=== PATIENT | female | born 1945 | race Caucasian/White ===

== ENCOUNTER → 2016-10-26 | Outpatient (CLI) | payer OTHER ==
[~2016-10-26] VITALS: Ht 162.6 cm; Wt 65.1 kg
[~2016-10-26] MED LIST: CETI10 PO; ESCI20TA PO; HYDROCORTISONE SOD SUCCINATE 100 MG VIAL ONE; INSULIN HUMAN REGULAR 1,000 UNITS/10 ML VIAL SQ PRN; KETAMINE HCL 500 MG/5 ML VIAL ONE; LACTATED RINGER'S 1000 ML IV SCH; LEVO100T5 PO; METOPROLOL TARTRATE 25 MG TAB PO PRN; MIDAZOLAM HCL 2 MG/2 ML VIAL ONE; NUTR-189 PO; OMEP20TA PO; PROPOFOL 200 MG/20 ML AMP IV ONE; SODIUM CHLORID 0.9% 500 ML IV SCH
[2016-10-26 09:28] VITALS: BP 121/58; PULSE 52; RESP 16; TEMP 97.8; O2SAT 98
--- NOTE | 2016-10-26 12:41 | GIPROC ---
"[facility] [address] [facility]. [facility], [address] EGD PROCEDURE REPORT EXAM DATE: 10/26/2016 PATIENT NAME: Ana M Henson MR #: [id number] BIRTHDATE: 1945 ATTENDING: Ishmael Aly MD ORDER #: [id number] HOT BALLER: Nevin De La Garza Dan STATUS: outpatient INDICATIONS: The patient is a 71 yr old female here for an EGD due to dysphagia PROCEDURE PERFORMED: EGD w/ dilation of esophagus via guidewire MEDICATIONS: None and Per Anesthesia. TOPICAL ANESTHETIC: none CONSENT: The patient understands the risks and benefits of the procedure and understands that these risks include, but are not limited to: sedation, allergic reaction, infection, perforation and/or bleeding. Alternative means of evaluation and treatment include, among others: physical exam, x-rays, and/or surgical intervention. The patient elects to proceed with this endoscopic procedure. medical equipment was checked for proper function. Hand hygiene and appropriate measures for infection prevention was taken. After the risks, benefits and alternatives of the procedure were thoroughly explained, Informed consent was verified, confirmed and timeout was successfully executed by the treatment team. The patient was anesthetized with topical anesthesia and the Pentax [id number] endoscope was introduced through the mouth and advanced to the second portion of the duodenum. Retroflexed views revealed a hiatal hernia The gastroscope was then slowly withdrawn and removed. 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 The stricture was easily traversable. The stricture was dilated using a 9mm (27Fr) savary dilator over guidewire. Following this dilation, there was no change in the appearance of the stricture. The stricture was dilated using a 10mm (30Fr) savary dilator over guidewire. Following this dilation, there was no change in the appearance of the stricture. The stricture was dilated using a 11mm (33Fr) savary dilator over guidewire. Following this dilation, there was no change in the appearance of the stricture. The stricture was dilated using a 12mm (36Fr) savary dilator over guidewire. Following this dilation, there was a small mucosal rent. STOMACH: A small hiatal hernia was noted. The stomach otherwise appeared normal. DUODENUM: The duodenal mucosa appeared normal. ADVERSE EVENTS: There were no complications. IMPRESSIONS: 1. There was a short stricture at the cricopharyngeus; The stricture was dilated using a 9mm (27Fr) savary dilator over guidewire.; Following this dilation, there was no change in the appearance of the stricture; The stricture was dilated using a 10mm (30Fr) savary dilator over guidewire.; Following this dilation, there was no change in the appearance of the stricture; The stricture was dilated using a 11mm (33Fr) savary dilator over guidewire.; Following this dilation, there was no change in the appearance of the stricture; The stricture was dilated using a 12mm (36Fr) savary dilator over guidewire.; Following this dilation, there was a small mucosal rent 2. Small hiatal hernia 3. The stomach otherwise appeared normal 4. Normal duodenal mucosa 5. Retroflexed views revealed a hiatal hernia RECOMMENDATIONS: 1. Full liquids today, advance as tolerated. 2. Dilatations PRN PATIENT CONDITION: stable DISPOSITION: Home REPEAT EXAM: Return as needed for Dilatation Ishmael Aly MD eSigned: Ishmael Aly MD 10/26/2016 12:40 PM cc: Nael Pineda M.D. CPT CODES: 89203 Upper gastrointestinal endoscopy including esophagus, stomach, and either the duodenum and/or jejunum as appropriate; with insertion of guide wire followed by dilation of esophagus over guide wire ICD CODES: K22.2 Esophageal obstruction K44.9 Diaphragmatic hernia without obstruction or gangrene R13.10 Dysphagia,unspecified The ICD and CPT codes recommended by this software are interpretations from the data that the clinical staff has captured with the software. The verification of the translation of this report to the ICD and CPT codes and modifiers is the sole responsibility of the health care institution and practicing physician where this report was generated. [employer] will not be held responsible for the validity of the ICD and CPT codes included on this report. A[employer] assumes no liability for data contained or not contained herein. CPT is a registered trademark of the [employer]. PATIENT NAME: Ana M Henson MR#: [id number]"
[2016-10-26 12:50] VITALS: BP 128/50; PULSE 54; RESP 16; O2SAT 97
== END ==
LOC: HEND 08:56
PROVIDERS: ATTEND Internal Medicine Gastroenterology
DX: K22.2 Esophageal obstruction (principal); K44.9 Diaphragmatic hernia without obstruction or gangrene; R13.10 Dysphagia, unspecified
CPT/HCPCS: 00740; 43248; C1769; J1720; J2250; J7120

== ENCOUNTER → 2017-07-01 | Outpatient (CLI) | payer OTHER ==
[~2017-07-01] VITALS: Ht 162.6 cm; Wt 69.0 kg
[~2017-07-01] MED LIST changes: +CHLORHEXIDINE GLUCONATE 2 % 1 PACK (2 CLOTHS) TOPICAL PRN; -HYDROCORTISONE SOD SUCCINATE 100 MG VIAL ONE; -KETAMINE HCL 500 MG/5 ML VIAL ONE; +LACTATED RINGER'S 1000 ML IV PRN; -LACTATED RINGER'S 1000 ML IV SCH; +LIDOCAINE HCL 1% PF 5 ML AMPULE OTHER ONE; -MIDAZOLAM HCL 2 MG/2 ML VIAL ONE; -OMEP20TA PO; +OMEP20TA93 PO; +POVIDONE IODINE 5% (ANTISEPSIS KIT) 4 APPLICATIONS EACH NARE PRN; +SODIUM CHLORID 0.9% 500 ML IV PRN; -SODIUM CHLORID 0.9% 500 ML IV SCH
[2017-07-01 11:11] VITALS: BP 110/52; PULSE 66; RESP 20; TEMP 97.9; O2SAT 97
--- NOTE | 2017-07-01 11:13 | GIPROC ---
[facility] [address] [facility]. [facility], [address] EGD PROCEDURE REPORT EXAM DATE: 07/01/2017 PATIENT NAME: Ana M Henson MR #: [id number] BIRTHDATE: 1945 ATTENDING: Ishmael Aly MD ORDER #: [id number] SUPERVISORY [employer] INTERCEPT CONTROLLER: Mayonr Carrillo and Elaine Connell STATUS: outpatient INDICATIONS: The patient is a 72 yr old female here for an EGD due to dysphagia PROCEDURE PERFORMED: EGD w/ biopsy EGD w/ dilation of esophagus via guidewire MEDICATIONS: Per Anesthesia and None. TOPICAL ANESTHETIC: none CONSENT: The patient understands the risks and benefits of the procedure and understands that these risks include, but are not limited to: sedation, allergic reaction, infection, perforation and/or bleeding. Alternative means of evaluation and treatment include, among others: physical exam, x-rays, and/or surgical intervention. The patient elects to proceed with this endoscopic procedure. medical equipment was checked for proper function. Hand hygiene and appropriate measures for infection prevention was taken. After the risks, benefits and alternatives of the procedure were thoroughly explained, Informed consent was verified, confirmed and timeout was successfully executed by the treatment team. The patient was anesthetized with topical anesthesia and the Pentax [id number] endoscope was introduced through the mouth and advanced to the second portion of the duodenum. Retroflexed views revealed a hiatal hernia The gastroscope was then slowly withdrawn and removed. ESOPHAGUS: There was a short stricture at the cricopharyngeus. The stricture was traversable. The stricture was dilated using a 10mm (30Fr) savary dilator over guidewire. The stricture was dilated using a 11mm (33Fr) savary dilator over guidewire. Following this dilation, there was a small mucosal rent. The stricture was dilated using a 12mm (36Fr) savary dilator over guidewire. Following this dilation, there was a small mucosal rent. There was a short fibrotic stricture at the gastroesophageal junction. The stricture was easily traversable. 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 Multiple biopsies were performed using cold forceps. Sample sent for histology. STOMACH: A smooth sessile polyp ranging between 3-5mm in size was found in the cardia. Multiple biopsies was performed. Sample sent for histology. A 4 cm hiatal hernia was noted. DUODENUM: The duodenal mucosa appeared normal. Also an 11 mm and a 12 mm savary were passed. Reinspection revealed superficial mucosal tear cervical esophagus. ADVERSE EVENTS: There were no complications. IMPRESSIONS: 1. There was a short stricture at the cricopharyngeus 2. There was a short stricture at the gastroesophageal junction 3. 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 Sessile polyp ranging between 3-5mm in size was found in the cardia; multiple biopsies was performed 5. 4 cm hiatal hernia 6. Normal duodenal mucosa 7. Retroflexed views revealed a hiatal hernia RECOMMENDATIONS: 1. Await biopsy results. Biopsy results will not be ready for 7-10 days. If you don't hear from us in two weeks, call our office for biopsy results. 2. Dilatations PRN PATIENT CONDITION: stable DISPOSITION: Home REPEAT EXAM: Return 6 months EGD with dilatation Ishmael Aly MD eSigned: Ishmael Aly MD 07/01/2017 11:13 AM cc: Nael Koo M.D. PATIENT NAME: Ana M Henson MR#: [id number]
--- NOTE | 2017-07-01 19:32 | EKG ---
Date Performed: 07/01/2017 Time Performed: 08:56:27 PTAGE: 72 years EKG: Sinus rhythm LEFT ANTERIOR FASCICULAR BLOCK ABNORMAL ECG Since PREVIOUS TRACING , no significant change noted PREVIOUS TRACIN05/15/2016 11.55 DOCTOR: Elaine Blanchard Interpretating Date/Time 07/01/2017 19:31:21
== END ==
LOC: HSDC 08:09
PROVIDERS: ATTEND Internal Medicine Gastroenterology
DX: K22.2 Esophageal obstruction (principal); R13.10 Dysphagia, unspecified; K31.7 Polyp of stomach and duodenum; K22.70 Barrett's esophagus without dysplasia; K44.9 Diaphragmatic hernia without obstruction or gangrene; K29.50 Unspecified chronic gastritis without bleeding; Z01.810 Encounter for preprocedural cardiovascular examination
CPT/HCPCS: 00740; 43239; 43248; 88305; 93005; C1769; J7120

== ENCOUNTER 2018-02-11 17:17 | Inpatient (IN) ==
[2018-02-16] MEDS ORDERED: Sodium Chlor 0.9% Inj 500 ML IV.SIG PRN (00:01)
[2018-02-16] MEDS ORDERED: Acetaminophen 325 MG Tablet PO PRN (00:01)
[2018-02-16] MEDS ORDERED: Morphine Inj 4 MG/ML Vial IV.PUSH PRN (00:01)
[2018-02-16] MEDS ORDERED: Chlorhexidine Gluconate 2% 1 Pack (2 Cloths) TOPICAL PRN (00:01)
[2018-02-16] MEDS ORDERED: Naloxone Inj 0.4 MG/ML Vial IV.PUSH PRN (00:01)
[2018-02-16] MEDS: Pantoprazole Inj 40 MG Vial IV.PUSH SCH (00:15)
[2018-02-16] MEDS ORDERED: Pantoprazole Inj 40 MG Vial ONE (00:40)
[2018-02-16] MEDS ORDERED: Oral Hygiene Kit OROPHARYNG SCH (04:00)
[2018-02-16] MEDS: Levothyroxine 100 MCG Tablet PO SCH (06:53)
[2018-02-16] MEDS ORDERED: Pantoprazole Sodium 20 MG DR Tablet PO SCH (09:00)
[2018-02-16] MEDS: [UNRECOGNIZED DRUG - SUPPLY] OROPHARYNG SCH ×4 (09:17→23:52)
--- NOTE | 2018-02-16 18:51 | P.PNGS ---
Subjective Patient reports: no new complaints Physical Exam Vital signs: Vital Signs 02/15/18 19:49 02/16/18 02:05 02/16/18 03:46 Temperature 97.9 F Pulse Rate 109 H 76 67 Respiratory Rate 18 Blood Pressure 105/51 L Pulse Oximetry 98 02/16/18 04:00 02/16/18 08:00 02/16/18 10:25 Temperature 98.4 F 99.0 F Pulse Rate 71 99 H 83 Respiratory Rate 18 18 16 Blood Pressure 106/53 L 133/59 L Pulse Oximetry 95 96 96 02/16/18 12:00 02/16/18 16:00 02/16/18 16:02 Temperature 99.6 F 98.2 F Pulse Rate 135 H 88 80 Respiratory Rate 18 18 16 Blood Pressure 107/54 L 119/57 L Pulse Oximetry 93 L 97 Intake & Output 02/15/18 02/16/18 02/16/18 18:59 06:59 18:59 Intake Total 0 / 0 Balance 0 / 0 Weight 49.7 kg 49.7 kg Intake: Oral 0 / 0 Other: # Voids 2 Date of Last Bowel Movement 02/13/18 - Constitutional no acute distress Comments: sleeping - Routine Abdominal Exam Comments: GJ intact, tolerating TF Assessment and Plan - Assessment (1) Dysphagia causing pulmonary aspiration with swallowing Code(s): R13.19 - Other dysphagia Status: Acute - Plan 72yo female with dysphagia after head/neck cancer treatments, s/p GJ tube. tolerating j-tube feeds. Dr. Kraus back tomorrow.
[2018-02-16] MEDS: Magnesium Oxide 400 MG Tablet J-TUBE SCH (22:46)
[2018-02-16] MEDS: Metoprolol Tartrate 25 MG Tablet PO SCH (22:47)
[2018-02-16] MEDS: Carbamide Peroxide 6.5% Otic Drops 15 ML Bottle RIGHT EAR SCH (23:05)
[2018-02-17] MEDS: Pantoprazole Inj 40 MG Vial IV.PUSH SCH (00:25)
[2018-02-17] MEDS: [UNRECOGNIZED DRUG - SUPPLY] OROPHARYNG SCH ×3 (03:20→17:39)
[2018-02-17 04:47] LABS: Hematocrit 21.6 % (35.0-46.0); Hemoglobin 7.5 gm/dL (11.6-15.3); Mean Corpuscular HGB Conc 34.8 % (32.0-36.0); Mean Corpuscular Volume 94.9 fL (80.0-100.0); Mean Platelet Volume 9.6 fL (7.0-11.0); Platelet Count 263 th/mm3 (150-450); Red Blood Count 2.28 mil/mm3 (4.00-5.30); Red Cell Distribution Width 20.9 % (11.6-17.2)
[2018-02-17 05:10] LABS: Calcium 7.2 mg/dL (8.5-10.1); Carbon Dioxide 29.4 meq/L (21.0-32.0); Magnesium 1.2 mg/dL (1.5-2.5); Potassium 3.8 meq/L (3.5-5.1)
[2018-02-17] MEDS: Levothyroxine 100 MCG Tablet PO SCH (06:51)
[2018-02-17] MEDS: Metoprolol Tartrate 25 MG Tablet PO SCH ×2 (10:06→20:54)
[2018-02-17] MEDS: Magnesium Oxide 400 MG Tablet J-TUBE SCH ×2 (10:07→20:54)
[2018-02-17] MEDS: Carbamide Peroxide 6.5% Otic Drops 15 ML Bottle RIGHT EAR SCH ×2 (10:07→21:09)
--- NOTE | 2018-02-17 16:00 | P.PNIM ---
Subjective Interval history: Ms. 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 Hooper and Dr. Pineda. The patient presented to the emergency room on 2017 complaining of progressively worsening generalized weakness that became severe over the past 2 days. The patient was found to have significant anemia with a hemoglobin of 6.3 and hematocrit of 18.0 and was admitted under the [facility] service for medical management. The patient is seen in her hospital room. 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 She states she has difficulty swallowing solids and is now coughing even after swallowing fluids. She had an esophageal stricture that was dilated by Dr. Aly in June 2017. She states she had blood work in December and was told that she was anemic. She states there were no recommendations by her medical team, she was simply informed she was anemic. She previously had a JG tube but it fell out in May, so she is just been drinking the supplemental beverages rather than using the feeding tube. She reports feeling colder than usual, palpitations from time to time, and difficulty talking. 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 She denies any active bleeding. She has no nausea with vomiting, denies hematochezia and black tarry stool, she denies hematuria. 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 Hooper and Dr. Pineda. The patient presented to the emergency room on 02/11/2018 complaining of progressively worsening generalized weakness that became severe over the past 2 days. The patient was found to have significant anemia with a hemoglobin of 6.3 and hematocrit of 18.0. 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 Hooper and Dr. Pineda. The patient presented to the emergency room on 2017 complaining of progressively worsening generalized weakness that became severe over the past 2 days. The patient was found to have significant anemia with a hemoglobin of 6.3 and hematocrit of 18.0. Patient also failed swallow evaluation S/P GJ tube placement with general surgery patient reports feeling hungry asking for food offers no other complaints at this time 6 Patient complains of dry mouth, hunger, hoarse voice 7-1 Patient is feeling more comfortable today, oral care has moistened her mouth. She had some stridor during sleep this afternoon. 7-2 HAD ISSUES WHERE SHE WRAPPED PHONE CORD AROUND HER NECK, SEEN BY PSYCHIATRY - THEY CLEARED HER BUT HAVE NOT LIFTED SANDOVAL ACT TOLERATING TUBE FEEDS WILL NEED TO GO TO SNF IN FUTURE AM LABS DW RN AND PT Physical Exam Vital signs: Vital Signs 02/16/18 16:02 02/16/18 19:42 02/16/18 20:02 Temperature 98.4 F Pulse Rate 80 76 96 H Respiratory Rate 16 19 Blood Pressure 142/81 H Pulse Oximetry 98 02/16/18 21:45 02/16/18 23:52 02/17/18 00:34 Temperature 98.2 F Pulse Rate 78 75 71 Respiratory Rate 16 18 Blood Pressure 98/50 L Pulse Oximetry 96 96 02/17/18 03:35 02/17/18 04:21 02/17/18 08:00 Temperature 98.0 F 98.2 F Pulse Rate 74 73 88 Respiratory Rate 18 24 20 Blood Pressure 108/56 L 110/52 L Pulse Oximetry 97 97 02/17/18 10:00 02/17/18 12:00 Temperature 98 F Pulse Rate 79 93 H Respiratory Rate 22 20 Blood Pressure 107/54 L Pulse Oximetry 99 Intake & Output 02/16/18 02/17/18 02/17/18 18:59 06:59 18:59 Intake Total 480 / 480 0 / 0 Balance 480 / 480 0 / 0 Weight 49.7 kg Intake: Oral 480 / 480 0 / 0 Other: # Voids 5 3 Date of Last Bowel Movement 02/13/18 02/13/18 # Bowel Movements 0 Narrative: GENERAL: Awake alert 3 talkative and cooperative has chronically hoarse voice supple SKIN: Warm and dry. HEAD: Atraumatic. Normocephalic. EYES: Pupils equal and round. No scleral icterus. No injection or drainage. ENT: No nasal bleeding or discharge. Mucous membranes pink and moist. NECK: Trachea midline. No JVD. CARDIOVASCULAR: Regular rate and rhythm. S1-S2 no S3 or S4 RESPIRATORY: No accessory muscle use. Clear to auscultation. Breath sounds equal bilaterally. GASTROINTESTINAL: Abdomen soft, non-tender, nondistended. Hepatic and splenic margins not palpable. G-J tube in place MUSCULOSKELETAL: Extremities without clubbing, cyanosis, or edema. No obvious deformities. NEUROLOGICAL: Awake and alert. No obvious cranial nerve deficits. Motor grossly within normal limits. 4 out of 5 muscle strength in the arms and legs. Normal speech. Very hoarse voice chronic PSYCHIATRIC: Appropriate mood and affect; insight and judgment normal. Results - Labs CBC & Chem 7: 02/17/18 03:39 02/17/18 03:39 Laboratory Results - last 24 hr 02/17/18 02/17/18 03:39 03:39 WBC 5.0 RBC 2.28 L Hgb 7.5 L Hct 21.6 L MCV 94.9 MCH 33.0 MCHC 34.8 RDW 20.9 H Plt Count 263 MPV 9.6 Sodium 143 Potassium 3.8 Chloride 105 Carbon Dioxide 29.4 Anion Gap 9 BUN 17 Creatinine 0.93 Estimated GFR 59 L Random Glucose 117 H Calcium 7.2 L* Prot Corrected Calcium 8.3 L Magnesium 1.2 L Total Protein 5.0 L - Procedures G-J TUBE PLACEMENT DATE OF OPERATION: 02/13/2018 DATE OF PROCEDURE: 02/13/2018. PREOPERATIVE DIAGNOSIS: Feeding difficulty in adult, malnutrition, history of squamous cell cancer. POSTOPERATIVE DIAGNOSIS: Feeding difficulty in adult, malnutrition, history of squamous cell cancer. PROCEDURE PERFORMED: 1. Laparoscopic gastrojejunostomy tube placement. 22F 2. Laparoscopic lysis of adhesions. SURGEON: Dr. Tarik Kraus Assessment and Plan - Plan Anemia Metamyelocytes, myelocytes, nucleated RBCs, and enlarged platelets on CBC with diff Large part due to malnutrition, PEG tube failure reduced p.o. intake significantly over the last 3 months s/p 2 units of packed red blood cells Hemoglobin appears stable Appreciate hematology consult Dysphagia Failed swallow evaluation GJ tube placed with Dr. Kraus on 02/13/2018 Doing well with oral care Reevaluate swallow function tomorrow Stridor Occurs exclusively during sleep, no difficulty breathing while awake, no stridor while awake Monitor for now Sinus tachycardia Rates as high as 138, recurrent at about 120, otherwise 80 bpm at baseline Begin metoprolol 12.5 mg twice daily, hold for systolic pressures less than 105 Earwax impaction Recurrent by her history Affecting right ear, begin twice daily Debrox Hypomagnesemia Magnesium 1.2 [address] WITH IV MAG SULFATE Depression with suicidal ideations Suicidal ideations resulted in Sandoval act Lexapro resumed per psychiatry recommendation Appreciate psychiatry consult Malnutrition VITAL 1.5 increased to 70 mL/h tolerating well DVT prophylaxis SCDs Code Status: FULL CODE Discussed Condition With: RN AND PT AND CM Discharge Planning: WILL NEED SNF
[2018-02-17] MEDS ORDERED: Magnesium Sulfate Inj 2 GM in Sodium Chlor 0.9% Inj 96 ML IV.SIG ONE (17:00)
--- NOTE | 2018-02-17 23:30 | P.PNGS ---
Subjective Patient reports: feels better (tolerating tf at 70cc +bms) Physical Exam Vital signs: Vital Signs 02/16/18 23:52 02/17/18 00:34 02/17/18 03:35 Temperature 98.2 F 98.0 F Pulse Rate 75 71 74 Respiratory Rate 18 18 Blood Pressure 98/50 L 108/56 L Pulse Oximetry 96 97 02/17/18 04:21 02/17/18 08:00 02/17/18 10:00 Temperature 98.2 F Pulse Rate 73 88 79 Respiratory Rate 24 20 22 Blood Pressure 110/52 L Pulse Oximetry 97 02/17/18 12:00 02/17/18 16:00 02/17/18 17:04 Temperature 98 F 97.7 F Pulse Rate 93 H 79 74 Respiratory Rate 20 20 20 Blood Pressure 107/54 L 124/47 L Pulse Oximetry 99 02/17/18 19:39 02/17/18 20:00 Temperature 99.4 F Pulse Rate 95 H 95 H Respiratory Rate 16 17 Blood Pressure 101/50 L Pulse Oximetry 94 L 98 Intake & Output 02/17/18 02/17/18 02/18/18 06:59 18:59 06:59 Intake Total 0 / 0 Output Total 200 / 200 Balance 0 / 0 -200 / -200 Weight 49.7 kg Intake: Oral 0 / 0 Output: Emesis 200 / 200 Other: # Voids 3 2 Date of Last Bowel Movement 02/13/18 # Bowel Movements 0 0 - Routine Respiratory Exam Present: CTA bilaterally - Routine Cardiovascular Exam Present: S1, S2 - Routine Abdominal Exam Present: soft (g tube c/d/i) Assessment and Plan - Assessment (1) Dysphagia causing pulmonary aspiration with swallowing Code(s): R13.19 - Other dysphagia Status: Acute - Plan s/p G-J tube placement doing well tube appropriate placement in jejunum PLAN C/W tf to goal will s/o reconsult if needed f/u [address] Kraus
[2018-02-18] MEDS: Pantoprazole Inj 40 MG Vial IV.PUSH SCH (01:20)
[2018-02-18] MEDS: [UNRECOGNIZED DRUG - SUPPLY] OROPHARYNG SCH ×4 (01:21→16:30)
[2018-02-18] MEDS: Levothyroxine 100 MCG Tablet PO SCH (05:12)
[2018-02-18] MEDS: Magnesium Oxide 400 MG Tablet J-TUBE SCH ×2 (09:35→22:11)
[2018-02-18 09:51] LABS: Hematocrit 21.5 % (35.0-46.0); Hemoglobin 7.2 gm/dL (11.6-15.3); Mean Corpuscular HGB Conc 33.6 % (32.0-36.0); Mean Corpuscular Hemoglobin 32.6 pg (27.0-34.0); Mean Corpuscular Volume 97.1 fL (80.0-100.0); Mean Platelet Volume 10.2 fL (7.0-11.0); Platelet Count 231 th/mm3 (150-450); Red Blood Count 2.22 mil/mm3 (4.00-5.30); Red Cell Distribution Width 20.9 % (11.6-17.2); White Blood Count 4.7 th/mm3 (4.0-11.0)
[2018-02-18] MEDS: Carbamide Peroxide 6.5% Otic Drops 15 ML Bottle RIGHT EAR SCH ×2 (10:00→22:13)
[2018-02-18] MEDS: Metoprolol Tartrate 25 MG Tablet PO SCH ×2 (10:02→22:12)
[2018-02-18 10:12] LABS: Alanine Aminotransferase 9 U/L (10-53); Calcium 7.5 mg/dL (8.5-10.1); Chloride 105 meq/L (98-107); Magnesium 1.9 mg/dL (1.5-2.5); Potassium 4.4 meq/L (3.5-5.1); Sodium 142 meq/L (136-145)
[2018-02-18 10:14] LABS: Albumin 1.9 g/dL (3.4-5.0); Anion Gap 9 meq/L (5-15); Aspartate Aminotransferase 13 U/L (15-37); Blood Urea Nitrogen 21 mg/dL (7-18); Carbon Dioxide 27.9 meq/L (21.0-32.0); Glomerular Filtration Rate 57 mL/min (>89); Glucose,Random 121 mg/dL (74-106)
[2018-02-18 10:29] LABS: Alkaline Phosphatase 64 U/L (45-117); Phosphorus 1.2 mg/dL (2.5-4.9)
[2018-02-18 10:42] LABS: Eosinophils 2 % (0-4); Lymphocytes 7 % (9-44); Monocytes 4 % (0-8); Myelocytes 2 % (0-0); Platelet Estimate Normal (Normal); Platelet Morphology Normal (Normal); Toxic Granulation 1+
[2018-02-18 10:43] LABS: Ovalocytes 1+
--- NOTE | 2018-02-18 12:34 | P.DIET ---
Nutritional Evaluation Type of nutrition evaluation: follow-up Nutrition consult regarding: Tube Feeding Objective - Diagnosis Anemia - Objective % IBW: 118 Body Weight Used for Calculations: Actual Energy Needs - Lower Range (kCal/kg): 30 Energy Needs - Upper Range (kCal/kg): 35 Lower Limit kCal/kg (kCals): 1,923 Upper Limit kCal/kg (kCals): 2,244 Lower Limit Protein Factor (Grams per Kg): 1.3 Upper Limit Protein Factor (Grams per Kg): 1.6 Lower Protein Needs (Protein): 83 Upper Protein Needs (Protein): 103 Fluid Factor (ml/kg): 33 Estimated Fluid Needs (ml): 2,244 Dietitian Reviewed in Medical Record: Current diet, Intake & Output, Labs, Tube feeding Objective Comments: Pt's nutritional needs based on 64.1kg PMH: Supraglottic Squamous Cell CA of the larynx s/p radiation and chemotherapy , GERD, Arthritis, Hypothyroidism, Rendon's Esophagus Meds include: Synthroid Labs include: Hgb 7.2, Hct 21.5, Glu 121, Phos 1.2 Feeding - Current Tube Feeding Tube Feeding Product: Vital 1.5 Tube Feeding Method: Pump Tube Feeding Route: J/G tube Current kCals Provided by Tube Feedin,310 Current Protein Provided by Tube Feeding (gPRO): 104 Medications That Affect Tube Feeding Run Time: Synthroid Total Time Off: 2 hours Current Free H2O Provided (m/l): 1,177 Assessment Assessment: Pt at nutritional risk r/t need for a TF for nutrition support. Pt with dysphasia, now s/p G/J tube. TF Vital 1.5 is running at 70 ml/hr for 22 hrs, ( hold for Synthroid) and pt is tolerating it well. Pt's nutritional needs as assessed above. Current TF rate is a little excessive in kcals and protein, see above. To best meet pt's nutritional needs, TF goal rate of 65 ml/hr for 22 hrs is recommended. This will provide 2145 kcals, 97 gms protein and 1093 mls free water. Will monitor TF, clinical course. Recommendations: TF Vital 1.5 with goal rate of 65 ml/hr for 22 hrs, hold for Synthroid Dietitian following Dietitian to Monitor: Lab values, Intake & Output, Tube feeding tolerance, Weight change
--- NOTE | 2018-02-18 12:43 | P.PNPSY ---
Subjective Remarks: The patient was seen today for psychiatric reevaluation. The patient is calm, cooperative, oriented 3, logical, coherent and relevant. The patient says that he feels much better today. She is able to talk about recent suicidal feelings in the context of argument with her son. She says that she feels much better now, denies depression, denies anxiety, denies austin and psychosis. Patient plans to continue medical recommendations and to take her medications. She denies suicidal and homicidal ideation, she denies visual and auditory hallucinations Review of Systems Psychiatric: Denies abnormal sleep pattern, Denies anxiety, Denies behavioral changes, Denies change in appetite, Denies change in sex drive, Denies confusion , Denies depression, Denies difficulty concentrating, Denies hearing things others do not hear, Denies hopelessness, Denies irritability, Denies lack of enjoyment, Denies memory loss, Denies mood swings, Denies panic attacks, Denies paranoia, Denies seeing things others do not see, Denies sensing things others do not sense, Denies tactile hallucinations, Denies thoughts of hurting/killing others, Denies thoughts of hurting/killing yourself, Denies other Mental Status Examination Appearance: Appropriate Consciousness: Alert Orientation: x4 Motor Activity: Normal gait Speech: Unremarkable Language: Adequate Fund of Knowledge: Adequate Attention and Concentration: Adequate Memory: Unremarkable Mood: Appropriate Affect: Appropriate Thought Process & Associations: Intact Thought Content: Appropriate Hallucination Type: None Suicidal Ideation: No Suicidal Plan: No Suicidal Intention: No Homicidal Ideation: No Homicidal Plan: No Homicidal Intention: No Insight: Fair Judgment: Adequate Assessment and Plan - Assessment (1) Acute adjustment disorder with depressed mood Code(s): F43.21 - Adjustment disorder with depressed mood Status: Acute - Plan Plan: Estimated LOS: [] days The patient does not meet criteria for involuntary psychiatric admission. Patient does not need psychiatric hospitalization. Brief supportive psychotherapy provided. Continue current psychotropic regimen. Justification for Continued Inpatient Stay: No admission indicated
--- NOTE | 2018-02-18 16:38 | P.PNIM ---
Subjective Interval history: Ms. 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 Hooper and Dr. Pineda. The patient presented to the emergency room on 2017 complaining of progressively worsening generalized weakness that became severe over the past 2 days. The patient was found to have significant anemia with a hemoglobin of 6.3 and hematocrit of 18.0 and was admitted under the [facility] service for medical management. The patient is seen in her hospital room. 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 She states she has difficulty swallowing solids and is now coughing even after swallowing fluids. She had an esophageal stricture that was dilated by Dr. Aly in June 2017. She states she had blood work in December and was told that she was anemic. She states there were no recommendations by her medical team, she was simply informed she was anemic. She previously had a JG tube but it fell out in May, so she is just been drinking the supplemental beverages rather than using the feeding tube. She reports feeling colder than usual, palpitations from time to time, and difficulty talking. 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 She denies any active bleeding. She has no nausea with vomiting, denies hematochezia and black tarry stool, she denies hematuria. 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 Hooper and Dr. Pineda. The patient presented to the emergency room on 02/11/2018 complaining of progressively worsening generalized weakness that became severe over the past 2 days. The patient was found to have significant anemia with a hemoglobin of 6.3 and hematocrit of 18.0. 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 Hooper and Dr. Pineda. The patient presented to the emergency room on 2017 complaining of progressively worsening generalized weakness that became severe over the past 2 days. The patient was found to have significant anemia with a hemoglobin of 6.3 and hematocrit of 18.0. Patient also failed swallow evaluation S/P GJ tube placement with general surgery patient reports feeling hungry asking for food offers no other complaints at this time 02-15 Patient complains of dry mouth, hunger, hoarse voice 7-1 Patient is feeling more comfortable today, oral care has moistened her mouth. She had some stridor during sleep this afternoon. 7-2 HAD ISSUES WHERE SHE WRAPPED PHONE CORD AROUND HER NECK, SEEN BY PSYCHIATRY - THEY CLEARED HER BUT HAVE NOT LIFTED SANDOVAL ACT TOLERATING TUBE FEEDS WILL NEED TO GO TO SNF IN FUTURE AM LABS DW RN AND PT NEEDS SNF FOR HERE SAFETY AND NEW G-J TUBE WITH TUBE FEEDS 7-3 HAS BEEN CLEARED BY PSYCHIATRY FROM THE SANDOVAL ACT PROBABLY NEEDS SNF SINCE SHE LIVES ALONE AND HAS HAD A NEW G-J TUBE AND IS ON TUBE FEEDS FOR SEVERE DYSPHAGIA AND TOTAL NUTRITION Physical Exam Vital signs: Vital Signs 02/17/18 17:04 02/17/18 19:39 02/17/18 20:00 Temperature 99.4 F Pulse Rate 74 95 H 95 H Respiratory Rate 20 16 17 Blood Pressure 101/50 L Pulse Oximetry 94 L 98 02/17/18 20:03 02/17/18 23:00 02/18/18 00:09 Temperature 97.1 F L Pulse Rate 98 H 91 H 93 H Respiratory Rate 20 Blood Pressure 107/48 L Pulse Oximetry 98 02/18/18 04:01 02/18/18 06:15 02/18/18 08:00 Temperature 99 F 97.8 F Pulse Rate 77 84 96 H Respiratory Rate 20 20 26 H Blood Pressure 99/45 L 122/60 Pulse Oximetry 97 94 L 02/18/18 12:00 02/18/18 15:48 02/18/18 16:00 Temperature 97.9 F 98.2 F Pulse Rate 89 93 H 96 H Respiratory Rate 26 H 18 26 H Blood Pressure 108/54 L 114/53 L Pulse Oximetry 95 94 L Intake & Output 02/17/18 02/18/18 02/18/18 18:59 06:59 18:59 Intake Total 0 / 0 Output Total 200 / 200 Balance -200 / -200 0 / 0 Weight 64.1 kg Intake: Oral 0 / 0 Output: Emesis 200 / 200 Other: # Voids 2 4 Date of Last Bowel Movement 02/13/18 02/13/18 # Bowel Movements 0 Weight On Admission 64.1 kg Narrative: GENERAL: Awake alert 3 talkative and cooperative has chronically hoarse voice supple SKIN: Warm and dry. HEAD: Atraumatic. Normocephalic. EYES: Pupils equal and round. No scleral icterus. No injection or drainage. ENT: No nasal bleeding or discharge. Mucous membranes pink and moist. NECK: Trachea midline. No JVD. CARDIOVASCULAR: Regular rate and rhythm. S1-S2 no S3 or S4 RESPIRATORY: No accessory muscle use. Clear to auscultation. Breath sounds equal bilaterally. GASTROINTESTINAL: Abdomen soft, non-tender, nondistended. Hepatic and splenic margins not palpable. G-J tube in place MUSCULOSKELETAL: Extremities without clubbing, cyanosis, or edema. No obvious deformities. NEUROLOGICAL: Awake and alert. No obvious cranial nerve deficits. Motor grossly within normal limits. 4 out of 5 muscle strength in the arms and legs. Normal speech. Very hoarse voice chronic PSYCHIATRIC: Appropriate mood and affect; insight and judgment normal. Results - Labs CBC & Chem 7: 02/18/18 08:11 02/18/18 08:11 Laboratory Results - last 24 hr 02/18/18 02/18/18 08:11 08:11 WBC 4.7 RBC 2.22 L Hgb 7.2 L Hct 21.5 L MCV 97.1 MCH 32.6 MCHC 33.6 RDW 20.9 H Plt Count 231 MPV 10.2 Prelim Diff (Auto) Manual diff required WBC Differential Manual diff final Seg Neuts % (Manual) 67 Band Neuts % (Manual) 17 H Lymphocytes % (Manual) 7 L Monocytes % (Manual) 4 Eosinophils % (Manual) 2 Basophils % (Manual) 1 Myelocytes % (Man) 2 H Abs Neuts (Manual) 4.0 Differential Comment . Toxic Granulation 1+ H Platelet Estimate Normal Platelet Morphology Normal Ovalocytes 1+ H Sodium 142 Potassium 4.4 Chloride 105 Carbon Dioxide 27.9 Anion Gap 9 BUN 21 H Creatinine 0.96 Estimated GFR 57 L Random Glucose 121 H Calcium 7.5 L Phosphorus 1.2 L Magnesium 1.9 D Total Bilirubin 0.3 AST 13 L ALT 9 L Alkaline Phosphatase 64 Total Protein 5.0 L Albumin 1.9 L TSH 6.480 H - Procedures G-J TUBE PLACEMENT DATE OF OPERATION: 02/13/2018 DATE OF PROCEDURE: 02/13/2018. PREOPERATIVE DIAGNOSIS: Feeding difficulty in adult, malnutrition, history of squamous cell cancer. POSTOPERATIVE DIAGNOSIS: Feeding difficulty in adult, malnutrition, history of squamous cell cancer. PROCEDURE PERFORMED: 1. Laparoscopic gastrojejunostomy tube placement. 22F 2. Laparoscopic lysis of adhesions. SURGEON: Dr. Tarik Kraus Assessment and Plan - Plan Anemia Metamyelocytes, myelocytes, nucleated RBCs, and enlarged platelets on CBC with diff Large part due to malnutrition, PEG tube failure reduced p.o. intake significantly over the last 3 months s/p 2 units of packed red blood cells Hemoglobin appears stable Appreciate hematology consult Dysphagia Failed swallow evaluation GJ tube placed with Dr. Kraus on 02/13/2018 Doing well with oral care Reevaluate swallow function tomorrow STILL ON TUBE FEEDS WITH VITAL 1.5 AT 7ML/HOUR NO TRUE ORAL INTAKE FOR NUTRITION AT THIS TIME Stridor Occurs exclusively during sleep, no difficulty breathing while awake, no stridor while awake Monitor for now Sinus tachycardia Rates as high as 138, recurrent at about 120, otherwise 80 bpm at baseline Begin metoprolol 12.5 mg twice daily, hold for systolic pressures less than 105 Earwax impaction Recurrent by her history Affecting right ear, begin twice daily Debrox Hypomagnesemia Magnesium 1.[address] WITH IV MAG SULFATE AM LABS Depression with suicidal ideations Suicidal ideations resulted in Sandoval act Lexapro resumed per psychiatry recommendation Appreciate psychiatry consult Malnutrition VITAL 1.5 increased to 70 mL/h tolerating well SUICIDAL IDEATION/GESTURE -HAS BEEN CLEARED FROM SANDOVAL ACT BY PSYCHIATRY SUSPECT SHE NEEDS SNF FOR SHORT PERIOD OF TIME BEFORE GOING HOME AM LABS DVT prophylaxis SCDs Code Status: FULL CODE Discussed Condition With: RN AND PT AND CM AND PSYCHIATRY NEEDS SNF AT [place] FOR SHORT PERIOD AT LEASE Discharge Planning: WILL NEED SNF
[2018-02-19] MEDS: [UNRECOGNIZED DRUG - SUPPLY] OROPHARYNG SCH ×4 (00:11→17:31)
[2018-02-19] MEDS: Pantoprazole Inj 40 MG Vial IV.PUSH SCH (00:20)
[2018-02-19] MEDS: Levothyroxine 100 MCG Tablet PO SCH (06:19)
[2018-02-19 07:12] LABS: Albumin 1.9 g/dL (3.4-5.0); Anion Gap 8 meq/L (5-15); Aspartate Aminotransferase 13 U/L (15-37); Blood Urea Nitrogen 27 mg/dL (7-18); Calcium 7.9 mg/dL (8.5-10.1); Carbon Dioxide 27.7 meq/L (21.0-32.0); Chloride 106 meq/L (98-107); Glomerular Filtration Rate 55 mL/min (>89); Glucose,Random 110 mg/dL (74-106); Magnesium 1.9 mg/dL (1.5-2.5); Potassium 4.9 meq/L (3.5-5.1); Sodium 142 meq/L (136-145)
[2018-02-19 07:19] LABS: Alanine Aminotransferase 9 U/L (10-53); Alkaline Phosphatase 66 U/L (45-117); Phosphorus 1.8 mg/dL (2.5-4.9); Total Protein 5.1 g/dL (6.4-8.2)
[2018-02-19 07:21] LABS: Baso % (Auto) 0.7 % (0.0-2.0); Eos # (Auto) 0.1 th/mm3 (0.0-0.4); Eos % (Auto) 2.3 % (0.0-4.0); Lymph # (Auto) 2.1 th/mm3 (1.0-4.8); Lymph % (Auto) 44.3 % (9.0-44.0); Mean Corpuscular HGB Conc 33.3 % (32.0-36.0); Mean Corpuscular Hemoglobin 32.3 pg (27.0-34.0); Mean Platelet Volume 9.8 fL (7.0-11.0); Mono # (Auto) 0.1 th/mm3 (0.0-0.9); Mono % (Auto) 2.5 % (0.0-8.0); Neut # (Auto) 2.4 th/mm3 (1.8-7.7); Neut % (Auto) 50.2 % (16.0-70.0); Platelet Count 264 th/mm3 (150-450); Red Blood Count 2.16 mil/mm3 (4.00-5.30); Red Cell Distribution Width 20.8 % (11.6-17.2); White Blood Count 4.7 th/mm3 (4.0-11.0)
[2018-02-19 08:42] LABS: Eosinophils 8 % (0-4); Lymphocytes 18 % (9-44); Monocytes 3 % (0-8)
[2018-02-19 08:43] LABS: Burr Cells 1+; Platelet Estimate Normal (Normal); Platelet Morphology Normal (Normal)
[2018-02-19] MEDS: Carbamide Peroxide 6.5% Otic Drops 15 ML Bottle RIGHT EAR SCH ×2 (09:11→21:59)
[2018-02-19] MEDS: Metoprolol Tartrate 25 MG Tablet PO SCH ×2 (09:11→21:58)
--- NOTE | 2018-02-19 13:26 | P.PNIM ---
Subjective Interval history: States that she is doing okay. She states that she is not short of breath. She denies any suicidal ideations. Physical Exam Vital signs: Vital Signs 02/18/18 15:48 02/18/18 16:00 02/18/18 16:50 Temperature 98.2 F Pulse Rate 93 H 96 H Respiratory Rate 18 26 H Blood Pressure 114/53 L Pulse Oximetry 94 L 96 02/18/18 20:00 02/18/18 21:02 02/19/18 02:18 Temperature Pulse Rate 91 H 96 H Respiratory Rate 20 18 Blood Pressure Pulse Oximetry 02/19/18 04:17 02/19/18 08:00 02/19/18 10:00 Temperature 98.6 F Pulse Rate 88 73 70 Respiratory Rate 18 22 16 Blood Pressure 106/49 L Pulse Oximetry 96 Intake & Output 02/18/18 02/19/18 02/19/18 18:59 06:59 18:59 Intake Total 960 / 960 Balance 960 / 960 Intake: Oral 960 / 960 Other: # Voids 4 Date of Last Bowel Movement 02/17/18 Narrative: GENERAL: This is a well-nourished, well-developed patient, in no apparent distress sleepy. CARDIOVASCULAR: Regular rate and rhythm RESPIRATORY: Clear to auscultation. Breath sounds equal bilaterally. No wheezes , rales, or rhonchi. MUSCULOSKELETAL: Extremities without clubbing, cyanosis, or edema. NEURO: Alert & Oriented x2 to person, place Moves all ext x4 Results - Labs CBC & Chem 7: 02/19/18 06:23 02/19/18 06:23 Laboratory Results - last 24 hr 02/19/18 02/19/18 06:23 06:23 WBC 4.7 RBC 2.16 L Hgb 7.0 L Hct 21.0 L MCV 97.0 MCH 32.3 MCHC 33.3 RDW 20.8 H Plt Count 264 MPV 9.8 Prelim Diff (Auto) Slide review pending Neut % (Auto) 50.2 Lymph % (Auto) 44.3 H [place] % (Auto) 2.5 Eos % (Auto) 2.3 Baso % (Auto) 0.7 Neut # (Auto) 2.4 Lymph # (Auto) 2.1 [place] # (Auto) 0.1 Eos # (Auto) 0.1 Baso # (Auto) 0.0 WBC Differential Manual diff final Seg Neuts % (Manual) 58 Band Neuts % (Manual) 13 H Lymphocytes % (Manual) 18 Monocytes % (Manual) 3 Eosinophils % (Manual) 8 H Abs Neuts (Manual) 3.3 Differential Comment . Platelet Estimate Normal Platelet Morphology Normal [place] Cells 1+ H Sodium 142 Potassium 4.9 Chloride 106 Carbon Dioxide 27.7 Anion Gap 8 BUN 27 H Creatinine 0.99 Estimated GFR 55 L Random Glucose 110 H Calcium 7.9 L Phosphorus 1.8 L Magnesium 1.9 Total Bilirubin 0.3 AST 13 L ALT 9 L Alkaline Phosphatase 66 Total Protein 5.1 L Albumin 1.9 L - Procedures G-J TUBE PLACEMENT DATE OF OPERATION: 02/13/2018 DATE OF PROCEDURE: 02/13/2018. PREOPERATIVE DIAGNOSIS: Feeding difficulty in adult, malnutrition, history of squamous cell cancer. POSTOPERATIVE DIAGNOSIS: Feeding difficulty in adult, malnutrition, history of squamous cell cancer. PROCEDURE PERFORMED: 1. Laparoscopic gastrojejunostomy tube placement. 22F 2. Laparoscopic lysis of adhesions. SURGEON: Dr. Tarik Kraus Assessment and Plan - Plan Dysphagia Failed swallow evaluation GJ tube placed with Dr. Kraus on 02/13/2018 continue vital 1.5 tube feeds Doing well with oral care Stridor Occurs exclusively during sleep, no difficulty breathing while awake, no stridor while awake Monitor for now, oxygen support as needed Anemia Metamyelocytes, myelocytes, nucleated RBCs, and enlarged platelets on CBC with diff Large part due to malnutrition, PEG tube placement failure reduced p.o. intake significantly over the last 3 months s/p 2 units of packed red blood cells Hemoglobin appears stable Appreciate hematology consult Sinus tachycardia Rates as high as 138, recurrent at about 120, otherwise currently at 80 bpm at baseline Begin metoprolol 12.5 mg twice daily, hold for systolic pressures less than 105 Earwax impaction Recurrent by her history Affecting right ear, continue twice daily Debrox Hypomagnesemia Resolved Adjustment disorder with depression Lexapro, status post evaluation with psychiatry Malnutrition VITAL 1.5 at 65 mL/h for 22 hours hold for Synthroid per dietary consultation. Will need to determine if home health care is able to arrange for continuous pump versus evaluate for bolus feeds. For discharge planning DVT prophylaxis SCDs
--- NOTE | 2018-02-19 14:33 | P.DCO ---
- Physical Therapy Order: Evaluate and treat - Home Health Nursing Order: Medical education, Nursing assessment with vital signs Instructions: tube feeds with vital 1.5 at 65 cc/h - Certification I have seen patient Ana M Henson on 02/19/18. My clinical findings support the need for the requested home health care services because: Limited mobility due to disease progression I certify that my clinical findings support that this patient is homebound because: Hx COPD - exertion dyspnea/weakness
--- NOTE | 2018-02-19 16:11 | XR ---
EXAM DATE: 02/19/2018 3:39 PM EDT AGE/SEX: 72 years / Female INDICATIONS: Shortness of breath. CLINICAL DATA: This is the patient's initial encounter. Patient reports that signs and symptoms have been present for 1 day and indicates a pain score of Nonresponsive. MEDICAL/SURGICAL HISTORY: Chronic obstructive pulmonary disease. Hypothyroidism. Gastroesophage al reflux disease. Throat cancer. . Cholecystectomy. Appendectomy. Hernia repair. COMPARISON: [facility] [place], CHEST SINGLE AP, 02/11/2018. . FINDINGS: There is bilateral mostly basilar airspace disease with small effusions. No pneumothorax. Heart size mildly enlarged. CONCLUSION: Bilateral mostly basilar airspace disease which may represent mild pulmonary edema with small effusio ns. Left basilar consolidation present. Electronically signed by: Alireza Leger MD 02/19/2018 4:10 PM EDT
[2018-02-20] MEDS: Pantoprazole Inj 40 MG Vial IV.PUSH SCH (00:13)
[2018-02-20] MEDS: Levothyroxine 100 MCG Tablet PO SCH (06:04)
[2018-02-20] MEDS: Metoprolol Tartrate 25 MG Tablet PO SCH ×2 (08:38→20:42)
[2018-02-20] MEDS: [UNRECOGNIZED DRUG - SUPPLY] OROPHARYNG SCH ×3 (08:39→17:16)
--- NOTE | 2018-02-20 10:08 | P.PN ---
Subjective Interval history: Patient is feeling more comfortable today, oral care has moistened her mouth. She had some stridor during sleep this afternoon. Physical Exam Vital signs: Vital Signs 02/15/18 19:49 02/16/18 02:05 02/16/18 03:46 Temperature 97.9 F Pulse Rate 109 H 76 67 Respiratory Rate 18 Blood Pressure 105/51 L Pulse Oximetry 98 02/16/18 04:00 02/16/18 08:00 02/16/18 10:25 Temperature 98.4 F 99.0 F Pulse Rate 71 99 H 83 Respiratory Rate 18 18 16 Blood Pressure 106/53 L 133/59 L Pulse Oximetry 95 96 96 02/16/18 12:00 02/16/18 16:00 02/16/18 16:02 Temperature 99.6 F 98.2 F Pulse Rate 135 H 88 80 Respiratory Rate 18 18 16 Blood Pressure 107/54 L 119/57 L Pulse Oximetry 93 L 97 Intake & Output 02/15/18 02/16/18 02/16/18 18:59 06:59 18:59 Intake Total 0 / 0 Balance 0 / 0 Weight 49.7 kg 49.7 kg Intake: Oral 0 / 0 Other: # Voids 2 Date of Last Bowel Movement 02/13/18 Narrative: Objective Remarks GENERAL: Thin appearing, malnourished, weak SKIN: Warm and dry. HEAD: Normocephalic. dry oropharynx EYES: No scleral icterus. No injection or drainage. NECK: Supple, trachea midline. No JVD or lymphadenopathy. CARDIOVASCULAR: Regular rate and rhythm without murmurs, gallops, or rubs. RESPIRATORY: Breath sounds equal bilaterally. No accessory muscle use. Squeaking stridor during sleep, absent while awake, normal pulse ox GASTROINTESTINAL: Abdomen soft, triple-lumen JG tube in place with gastric drain attachment, nondistended. EXTREMITIES: No cyanosis, or edema. NEUROLOGICAL: Awake, alert, and oriented x 3. Non-focal. Results - Labs CBC & Chem 7: 02/14/18 06:57 02/15/18 05:28 Labs: Laboratory Results - last 24 hr 02/11/18 02/11/18 02/12/18 18:00 18:00 06:48 WBC RBC Hgb Hct MCV MCH MCHC RDW Plt Count MPV Neut % (Auto) Lymph % (Auto) [place] % (Auto) Eos % (Auto) Baso % (Auto) Neut # (Auto) Lymph # (Auto) [place] # (Auto) Eos # (Auto) Baso # (Auto) CBC Comment Total Counted Neutrophils % (Manual) Band Neutrophils % Lymphocytes % Monocytes % Basophils % Neutrophils # (Manual) Myelocytes Differential Comment Platelet Estimate Plt Morphology Comment Ovalocytes PT INR Sodium 141 Potassium 3.0 L Chloride 102 Carbon Dioxide 28.8 Anion Gap 10 BUN 28 H Creatinine 1.19 H Estimated GFR 45 L Random Glucose 106 Hemoglobin A1c Calcium 7.4 L* Prot Corrected Calcium 8.1 L Phosphorus 2.7 Magnesium 1.0 L Iron 49 L Cancelled Iron Index Cancelled TIBC 258 Cancelled % Saturation 19.0 L Cancelled Ferritin 779 H Cancelled Total Bilirubin 0.3 AST 13 L ALT 11 Alkaline Phosphatase 87 Total Creatine Kinase 19 L Troponin I LESS THAN 0.02 L Total Protein 5.9 L Albumin 2.6 L Vitamin B12 1327 H Folate 10.6 Free T4 TSH 3rd Generation 02/13/18 02/13/18 02/13/18 04:11 04:11 04:11 WBC 4.3 RBC 2.60 L Hgb 8.6 L Hct 24.5 L MCV 94.5 MCH 33.2 MCHC 35.2 RDW 22.5 H Plt Count 332 MPV 9.3 Neut % (Auto) 70.7 H Lymph % (Auto) 15.6 [place] % (Auto) 12.1 H Eos % (Auto) 0.6 Baso % (Auto) 1.0 Neut # (Auto) 3.0 Lymph # (Auto) 0.7 L [place] # (Auto) 0.5 Eos # (Auto) 0.0 Baso # (Auto) 0.0 CBC Comment AUTO DIFF Total Counted 100 Neutrophils % (Manual) 66 Band Neutrophils % 9 H Lymphocytes % 14 Monocytes % 4 Basophils % 2 Neutrophils # (Manual) 3.4 Myelocytes 5 H Differential Comment FINAL DIFF MANUAL Platelet Estimate NORMAL Plt Morphology Comment NORMAL Ovalocytes PT 11.7 H INR 1.2 Sodium 145 Potassium 4.3 D Chloride 111 H Carbon Dioxide 26.2 Anion Gap 8 BUN 15 Creatinine 0.93 Estimated GFR 59 L Random Glucose 80 Hemoglobin A1c 5.0 Calcium 7.5 L Prot Corrected Calcium Phosphorus 2.2 L Magnesium 1.5 Iron Iron Index TIBC % Saturation Ferritin Total Bilirubin 1.0 AST 15 ALT 7 L Alkaline Phosphatase 91 Total Creatine Kinase Troponin I Total Protein 5.6 L Albumin 2.4 L Vitamin B12 Folate Free T4 1.06 TSH 3rd Generation 7.360 H 02/14/18 02/14/18 02/15/18 06:57 06:57 05:28 WBC 4.1 RBC 2.60 L Hgb 8.6 L Hct 24.9 L MCV 95.8 MCH 32.9 MCHC 34.4 RDW 21.9 H Plt Count 231 D MPV 9.8 Neut % (Auto) 72.2 H Lymph % (Auto) 14.9 [place] % (Auto) 11.4 H Eos % (Auto) 0.2 Baso % (Auto) 1.3 Neut # (Auto) 2.9 Lymph # (Auto) 0.6 L [place] # (Auto) 0.5 Eos # (Auto) 0.0 Baso # (Auto) 0.1 CBC Comment AUTO DIFF Total Counted 100 Neutrophils % (Manual) 61 Band Neutrophils % 7 H Lymphocytes % 17 Monocytes % 10 H Basophils % 2 Neutrophils # (Manual) 2.9 Myelocytes 3 H Differential Comment FINAL DIFF MANUAL Platelet Estimate NORMAL Plt Morphology Comment NORMAL Ovalocytes 1+ H PT INR Sodium 143 142 Potassium 4.8 4.0 D Chloride 109 H 108 H Carbon Dioxide 27.0 26.5 Anion Gap 7 8 BUN 21 H 18 Creatinine 1.13 H 0.96 Estimated GFR 47 L 57 L Random Glucose 90 105 Hemoglobin A1c Calcium 7.4 L* 7.9 L Prot Corrected Calcium 8.2 L Phosphorus Magnesium 1.3 L Iron Iron Index TIBC % Saturation Ferritin Total Bilirubin AST ALT Alkaline Phosphatase Total Creatine Kinase 20 L Troponin I LESS THAN 0.02 L Total Protein 5.6 L Albumin Vitamin B12 Folate Free T4 TSH 3rd Generation 02/16/18 07:40 WBC RBC Hgb Hct MCV MCH MCHC RDW Plt Count MPV Neut % (Auto) Lymph % (Auto) [place] % (Auto) Eos % (Auto) Baso % (Auto) Neut # (Auto) Lymph # (Auto) [place] # (Auto) Eos # (Auto) Baso # (Auto) CBC Comment Total Counted Neutrophils % (Manual) Band Neutrophils % Lymphocytes % Monocytes % Basophils % Neutrophils # (Manual) Myelocytes Differential Comment Platelet Estimate Plt Morphology Comment Ovalocytes PT INR Sodium Potassium Chloride Carbon Dioxide Anion Gap BUN Creatinine Estimated GFR Random Glucose Hemoglobin A1c Calcium Prot Corrected Calcium Phosphorus Magnesium 1.2 L Iron Iron Index TIBC % Saturation Ferritin Total Bilirubin AST ALT Alkaline Phosphatase Total Creatine Kinase Troponin I Total Protein Albumin Vitamin B12 Folate Free T4 TSH 3rd Generation Assessment and Plan - Plan Anemia Metamyelocytes, myelocytes, nucleated RBCs, and enlarged platelets on CBC with diff Large part due to malnutrition, PEG tube failure reduced p.o. intake significantly over the last 3 months s/p 2 units of packed red blood cells Hemoglobin appears stable Appreciate hematology consult Dysphagia Failed swallow evaluation GJ tube placed with Dr. Kraus on 02/13/2018 Doing well with oral care Reevaluate swallow function tomorrow Stridor Occurs exclusively during sleep, no difficulty breathing while awake, no stridor while awake Monitor for now Sinus tachycardia Rates as high as 138, recurrent at about 120, otherwise 80 bpm at baseline Begin metoprolol 12.5 mg twice daily, hold for systolic pressures less than 105 Earwax impaction Recurrent by her history Affecting right ear, begin twice daily Debrox Hypomagnesemia Magnesium 1.3 today Follow-up in a.m. for trend Depression with suicidal ideations Suicidal ideations resulted in [place] act Lexapro resumed per psychiatry recommendation Appreciate psychiatry consult Malnutrition Jevity 1.5 increased to 70 mL/h tolerating well DVT prophylaxis SCDs
[2018-02-20] MEDS: Carbamide Peroxide 6.5% Otic Drops 15 ML Bottle RIGHT EAR SCH ×2 (10:49→20:51)
--- NOTE | 2018-02-20 11:12 | P.PNIM ---
Subjective Interval history: Patient states that she is more short of breath and coughing more. She reports no chest pain associated with this. She states in the past she had a continuous pump for tube feeds. She is still declining to go to a senior living facility versus going home with home health care. She is open to a palliative care consult and evaluation. Physical Exam Vital signs: Vital Signs 02/19/18 12:00 02/19/18 16:15 02/19/18 19:50 Temperature 99.4 F Pulse Rate 80 83 80 Respiratory Rate 22 14 Blood Pressure 104/51 L Pulse Oximetry 96 02/19/18 20:00 02/20/18 00:00 02/20/18 03:06 Temperature 98.2 F 98.1 F Pulse Rate 85 75 85 Respiratory Rate 22 18 14 Blood Pressure 102/48 L 101/47 L Pulse Oximetry 95 95 02/20/18 05:20 02/20/18 06:17 02/20/18 08:00 Temperature 98.1 F 97.8 F Pulse Rate 80 65 Respiratory Rate 18 16 Blood Pressure 101/51 L 99/47 L Pulse Oximetry 98 97 02/20/18 10:22 Temperature Pulse Rate 89 Respiratory Rate 16 Blood Pressure Pulse Oximetry 96 Intake & Output 02/19/18 02/20/18 02/20/18 18:59 06:59 18:59 Intake Total 1208 / 1208 150 / 150 Output Total 700 / 700 Balance 508 / 508 150 / 150 Intake: IV 150 / 150 Levaquin 750 mg Premix Inj 150 150 / 150 ML @ 100 mls/hr IV.SIG Q24H ANN Rx#:[id number] Oral 0 / 0 Tube Irrigant 200 / 200 Other 1008 / 1008 Output: Urine 700 / 700 Gastric Drainage 0 / 0 Left Upper Quadrant 0 / 0 Gastrojejunostomy Tube Other: # Voids 4 Date of Last Bowel Movement 02/19/18 02/19/18 02/19/18 Narrative: GENERAL: This is a well-nourished, well-developed patient, in no apparent distress sleepy. CARDIOVASCULAR: Regular rate and rhythm RESPIRATORY: Bibasilar crackles with few coarse breath sounds MUSCULOSKELETAL: Extremities without clubbing, cyanosis, or edema. NEURO: Alert & Oriented x3 to person, place, time moves all ext x4 Results - Labs CBC & Chem 7: 02/19/18 06:23 02/19/18 06:23 - Imaging Impressions Chest X-Ray 02/19/18 00:00 CONCLUSION: Bilateral mostly basilar airspace disease which may represent mild pulmonary edema with small effusions. Left basilar consolidation present. - Procedures G-J TUBE PLACEMENT DATE OF OPERATION: 02/13/2018 DATE OF PROCEDURE: 02/13/2018. PREOPERATIVE DIAGNOSIS: Feeding difficulty in adult, malnutrition, history of squamous cell cancer. POSTOPERATIVE DIAGNOSIS: Feeding difficulty in adult, malnutrition, history of squamous cell cancer. PROCEDURE PERFORMED: 1. Laparoscopic gastrojejunostomy tube placement. 22F 2. Laparoscopic lysis of adhesions. SURGEON: Dr. Tarik Kraus Assessment and Plan - Plan Dysphagia Failed swallow evaluation GJ tube placed with Dr. Kraus on 02/13/2018 continue vital 1.5 tube feeds Doing well with oral care Stridor Occurs exclusively during sleep, no difficulty breathing while awake, no stridor while awake Monitor for now, oxygen support as needed Aspiration pneumonia with hypoxia - Start Levaquin for coverage and add Flagyl. Fluid overload- Initiate diuretics today and wean oxygen support as tolerated. Anemia Metamyelocytes, myelocytes, nucleated RBCs, and enlarged platelets on CBC with diff Large part due to malnutrition, PEG tube placement failure reduced p.o. intake significantly over the last 3 months s/p 2 units of packed red blood cells Hemoglobin appears stable Appreciate hematology consult Sinus tachycardia Rates as high as 138, recurrent at about 120, otherwise currently at 80 bpm at baseline Begin metoprolol 12.5 mg twice daily, hold for systolic pressures less than 105 Earwax impaction Recurrent by her history Affecting right ear, continue twice daily Debrox Hypomagnesemia Resolved Adjustment disorder with depression Lexapro, status post evaluation with psychiatry Malnutrition VITAL 1.5 at 65 mL/h for 22 hours hold for Synthroid per dietary consultation. Will need to determine if home health care is able to arrange for continuous pump versus evaluate for bolus feeds. For discharge planning DVT prophylaxis SCDs Code Status: Full code per patient Discharge Planning: Patient desires to go home with home health care is declining senior living facility.
--- NOTE | 2018-02-20 11:46 | P.CONPAL ---
Consult Service: Palliative Care Requesting Physician: Brenda Beyer Reason for Consult: a. To assist with evaluation and management of symptoms including: debility, dysphagia b. To assist medical decision maker(s) with: better understanding of current medical conditions; weighing benefits/burdens of medical treatment options; making medical treatment decisions. Primary Care Provider: Ana M Mccallum . History of Present Illness History of Present Illness: Ms. Henson is a 72-year-old female who presented to [place] ED on 02/11/2018 progressively worsening generalized weakness that had become severe in the previous 2 days. 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 Hooper and Dr. Pineda. Patient stated she has difficulty swallowing and was coughing with liquids. She has a known history of esophageal stricture requiring dilatation. Patient previously had a JG tube but it fell out in 2016. Since then, she had been drinking supplemental nutritional drinks but her insurance stopped paying for them last September. Additional diagnostic data: * Vital signs: Pulse 79, respirations 18, BP 77/42, oxygen saturation 98% on room air and oral temperature 98.3 * WBC: 4.5, hemoglobin 6.3, hematocrit 18.0, platelets 397, neutrophils 66.8% * Sodium: 141, potassium 3.0, chloride 102, glucose 106, calcium 7.4, prot corrected calcium 8.1, phosphorus 2.7, magnesium 1.0 * BUN: 28, creatinine 1.19, GFR 45 * Total bilirubin: 0.3, AST 13, ALT 11, alkaline phosphatase 87 * Total creatine kinase: 19 * Troponin:<0.02 * Total protein 5.9, albumin 2.6 * Iron 59, TIBC 258, 19.0% saturation, ferritin 779 * PT: 12.1, INR 1.2, APTT 32.2 * Urinalysis WNL * Chest x-ray showed mild COPD changes with atelectatic changes in the left lung base. Patient was transfused with 2 units secondary to H/H of 6.3/18.0. She was admitted for further evaluation and medical management of her anemia. Hematology/oncology were consulted. Gastroenterology was consulted for evaluation of dysphasia. Patient had an EGD with esophageal dilatation on 07/[address] Aly. A modified barium swallow was performed with speech pathology patient was given a variety of liquids to swallow which revealed moderate silent aspiration. General surgery was consulted for possible feeding tube placement. Patient was taken to the OR on 02/13/2018 for laparoscopic G-J-tube placements and lysis of adhesions. Psychiatry evaluated the patient on 02/15/2018 for recommendations and management of depression; Lexapro 20mg daily was restarted. Psychiatry reevaluated the patient again on 02/18/2018. The patient was able to talk about recent suicidal feelings in the context of a recent argument with her son. Per Dr. Myers, patient did not meet criteria for involuntary psychiatric admission. Palliative Care was consulted to assist with symptom management and to discuss with the family the benefits and burdens of her current illnesses and the options regarding future care. During our conversation, Ms. Henson reported she is feeling better now that she is receiving some nutrition. Patient had no complaints. She denied pain and/or dyspnea. She denied suicidal ideation, but endorsed feelings of depression stating her life is a "disaster because of repeated poor decisions." She verbalized aggressive goals stating she wanted to do whatever would help her get stronger; she is open to SNF placement at discharge if that is an option. We reviewed the process of cardiopulmonary resuscitation in detail. The patient states that if she were to go into cardiopulmonary arrest, she would want everything done including intubation/ mechanical ventilation. However, she would not want to remain on mechanical ventilation for any extended amount of time. Function/Cognitive Trajectory: Patient had a G-J-tube but it fell out several months ago. She was drinking supplemental nutritional beverages until her insurance company stopped covering the cost of them in September. Patient reports an acute decline since that time with progressively worsening weakness, weight loss, worsening dysphagia and coughing with thin liquids. Review of Systems Constitutional: Reports anorexia, Reports lack of energy, Reports weakness, Reports weight loss Eyes: Denies pain Ears, Nose, Mouth, and Throat: Reports dry mouth, Denies abnormal hearing Cardiovascular: Denies chest pain, Denies shortness of breath Respiratory: Reports cough (when drinking thin fluids) Gastrointestinal: Denies nausea, Denies vomiting Psychiatric: Reports depression, Denies thoughts of hurting/killing yourself [facility] - History History Provided By: Patient, Medical Record - Medical History Medical History: Medical History (Last Updated 02/20/18 @ 11:39 by CHANEL Thorpe) Arthritis Barretts esophagus GERD (gastroesophageal reflux disease) Hypothyroidism 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 - Surgical History Surgical History: Surgical History (Last Updated 02/20/18 @ 11:39 by CHANEL Thorpe) History of cholecystectomy History of esophagogastroduodenoscopy (EGD) History of hernia repair History of tonsillectomy and adenoidectomy - Family History Family History: Family History (Last Updated 02/20/18 @ 11:41 by CHANEL Thorpe) Mother Breast cancer Father Heart problem - Tobacco History Tobacco Use In Past 30 Days: Yes (Quit in 2014; restarted 6 months ago and quit in recent weeks) Smoking Status: Former smoker Tobacco Type: Cigarettes years: 30 - Alcohol History How Often Do You Have a Drink Containing Alcohol: 2 to 3 times a week - Substance Use History Substance History: No History of Abuse Medications and Allergies Active Medications: Active Medications Acetaminophen (Tylenol) 650 mg PO Q4H PRN PRN Reason: TEMP>100.4 Albuterol (Duoneb Neb (Prn)) 1 ampul NEB Q2HR NEB PRN PRN Reason: SHORTNESS OF BREATH/WHEEZING Carbamide Peroxide (Debrox 6.5% Otic Drops) 5 drops RIGHT EAR Q12HR [facility] Last Admin: 02/20/18 10:49 Dose: Not Given Cetirizine HCl (Zyrtec) 10 mg PO DAILY [facility] Last Admin: 02/20/18 08:45 Dose: 10 mg Escitalopram Oxalate (Lexapro) 20 mg J-TUBE DAILY [facility] Last Admin: 02/20/18 08:45 Dose: 20 mg Furosemide (Lasix Inj) 40 mg IV.PUSH ONCE ONE Stop: 02/20/18 11:16 Levofloxacin/Dextrose (Levaquin 750 Mg Premix Inj) 150 mls @ 100 mls/hr IV.SIG Q24H ANN Last Infusion: 02/20/18 10:15 Dose: Infused Lactated Ringer's (Lr 1000 Ml Inj) 1,000 mls @ 84 mls/hr IV.SIG .[id number] [facility] Last Admin: 02/20/18 10:50 Dose: Not Given Levothyroxine Sodium (Synthroid) 100 mcg PO DAILY@0600 [facility] Last Admin: 02/20/18 06:04 Dose: 100 mcg Metoprolol Tartrate (Lopressor) 12.5 mg PO BID [facility] Last Admin: 02/20/18 08:38 Dose: Not Given Metronidazole (Flagyl) 500 mg G-TUBE Q8HR [facility] Miscellaneous (Pill Splitter) 1 each OTHER UNSCH [facility] Morphine Sulfate (Morphine Inj) 2 mg IV.PUSH Q3H PRN PRN Reason: PAIN>4 Naloxone HCl (Narcan Inj) 0.4 mg IV.PUSH UNSCH PRN PRN Reason: SEE LABEL COMMENTS Nitroglycerin (Nitrostat Sl) 0.4 mg SL Q5M PRN PRN Reason: CHEST PAIN Pantoprazole Sodium (Protonix) 20 mg PO DAILY [facility] Last Admin: 02/16/18 09:13 Dose: 20 mg Pantoprazole Sodium (Protonix Inj) 40 mg IV.PUSH Q24H [facility] Last Admin: 02/20/18 00:13 Dose: 40 mg Potassium Chloride (K-Dur) 20 meq PO ONCE ONE Stop: 02/20/18 11:16 Prochlorperazine Edisylate (Compazine Inj) 5 mg IV.PUSH Q4H PRN PRN Reason: NAUSEA OR VOMITING Last Admin: 02/17/18 17:37 Dose: 5 mg Sodium Chloride (Ns Flush) 2 ml IV.FLUSH UNSCH PRN PRN Reason: FLUSH AFTER USING IV ACCESS Sodium Chloride (Ns Flush) 2 ml IV.FLUSH BID [facility] Last Admin: 02/20/18 08:39 Dose: Not Given Sterile Water (Free Water) 100 ml J-TUBE Q6HR [facility] Last Admin: 02/20/18 08:39 Dose: Not Given Allergies Allergy/AdvReac Type Severity Reaction Status Date / Time epinephrine Allergy Severe TACHYCARDIA Unverified 02/11/18 19:08 penicillin G Allergy Severe Hives Unverified 02/11/18 19:08 peanut Allergy Intermediate ANAPHYLAXIS Unverified 02/11/18 19:08 SOY Allergy Severe ANAPHYLAXIS Uncoded 05/15/16 12:23 COOKED LEGUMES Allergy Intermediate ANAPHYLAXIS Uncoded 06/07/14 07:25 Home Medications Medication Instructions Recorded Confirmed Type cetirizine 10 mg PO DAILY 02/15/18 02/15/18 History escitalopram oxalate 20 mg PO DAILY 02/15/18 02/15/18 History levothyroxine 100 mcg PO DAILY 02/15/18 02/15/18 History omeprazole 20 mg PO DAILY 02/15/18 02/15/18 History Advance Directives Living Will: Yes Healthcare Surrogate: Yes Health Care Surrogate Name and Number: Alireza Whitten, son: [phone] or [phone] Documented care wishes: Completed a living will is accessible in the patient's paper chart. Today's verbally stated goals: Patient indicates that she does want to get better/stronger. She is open to SNF placement for rehab if that is an option and will help her accomplish her previously stated goals. Family/friends goals: Patient's son feels that the patient is too weak to go home with [facility] at this time. He has spoken with his mother and has recommeded that she go to an SNF for rehab. Ethical and Legal Issues: No known ethical or legal issues at this time. . Physical Exam Vital Signs: Vital Signs - 24 hr 02/19/18 12:00 02/19/18 16:15 02/19/18 19:50 Temperature 99.4 F Pulse Rate 80 83 80 Respiratory Rate 22 14 Blood Pressure 104/51 L Pulse Oximetry 96 02/19/18 20:00 02/20/18 00:00 02/20/18 03:06 Temperature 98.2 F 98.1 F Pulse Rate 85 75 85 Respiratory Rate 22 18 14 Blood Pressure 102/48 L 101/47 L Pulse Oximetry 95 95 02/20/18 05:20 02/20/18 06:17 02/20/18 08:00 Temperature 98.1 F 97.8 F Pulse Rate 80 65 Respiratory Rate 18 16 Blood Pressure 101/51 L 99/47 L Pulse Oximetry 98 97 02/20/18 10:22 Temperature Pulse Rate 89 Respiratory Rate 16 Blood Pressure Pulse Oximetry 96 I&O: Intake & Output 02/18/18 02/19/18 02/20/18 02/21/18 06:59 06:59 06:59 06:59 Intake Total 0 / 0 1959 1208 / 1208 150 / 150 Output Total 200 / 200 700 / 700 Balance -200 / -200 1959 508 / 508 150 / 150 Weight 64.1 kg Physical Exam: CONSTITUTIONAL/GENERAL: This is a frail, elderly female patient in no acute distress. TUBES/LINES/DRAINS: PIV 1, nasal cannula, SKIN: No jaundice, rashes, or lesions. Ecchymoses on upper extremities. No wounds seen anteriorly. Skin temperature appropriate. Not diaphoretic. HEAD: Atraumatic. Normocephalic. EYES: Pupils equal and round and reactive. Extraocular motions intact. No scleral icterus. No injection or drainage. Fundi not examined. ENT: Hearing grossly normal. Nose without bleeding or purulent drainage. Mucous membranes dry. NECK: Trachea midline. Supple, nontender. No palpable thyroid enlargement or nodularity. CARDIOVASCULAR: Regular rate and rhythm without murmurs, gallops, or rubs. No JVD. Peripheral pulses symmetric. RESPIRATORY/CHEST: Symmetric, unlabored respirations. Coarse breath sounds GASTROINTESTINAL: Abdomen soft, non-tender, nondistended. No hepato-splenomegaly , or palpable masses. No guarding. Bowel sounds present. GENITOURINARY: Without palpable bladder distension. Orellana catheter in place. MUSCULOSKELETAL: Extremities without clubbing, cyanosis, or edema. No mottling or clubbing. LYMPHATICS: No palpable cervical or supraclavicular adenopathy. NEUROLOGICAL: Awake; lethargic. Answers questions. Follows commands. Able to make needs known. PSYCHIATRIC: No obvious anxiety/agitation. No suicidal ideation. Diagnostic Tests Laboratory: Laboratory Results - last 72 hr 02/18/18 02/18/18 02/19/18 08:11 08:11 06:23 WBC 4.7 4.7 RBC 2.22 L 2.16 L Hgb 7.2 L 7.0 L Hct 21.5 L 21.0 L MCV 97.1 97.0 MCH 32.6 32.3 MCHC 33.6 33.3 RDW 20.9 H 20.8 H Plt Count 231 264 MPV 10.2 9.8 Prelim Diff (Auto) Manual diff required Slide review pending Neut % (Auto) 50.2 Lymph % (Auto) 44.3 H [place] % (Auto) 2.5 Eos % (Auto) 2.3 Baso % (Auto) 0.7 Neut # (Auto) 2.4 Lymph # (Auto) 2.1 [place] # (Auto) 0.1 Eos # (Auto) 0.1 Baso # (Auto) 0.0 WBC Differential Manual diff final Manual diff final Seg Neuts % (Manual) 67 58 Band Neuts % (Manual) 17 H 13 H Lymphocytes % (Manual) 7 L 18 Monocytes % (Manual) 4 3 Eosinophils % (Manual) 2 8 H Basophils % (Manual) 1 Myelocytes % (Man) 2 H Abs Neuts (Manual) 4.0 3.3 Differential Comment . . Toxic Granulation 1+ H Platelet Estimate Normal Normal Platelet Morphology Normal Normal Ovalocytes 1+ H [place] Cells 1+ H Sodium 142 Potassium 4.4 Chloride 105 Carbon Dioxide 27.9 Anion Gap 9 BUN 21 H Creatinine 0.96 Estimated GFR 57 L Random Glucose 121 H Calcium 7.5 L Phosphorus 1.2 L Magnesium 1.9 D Total Bilirubin 0.3 AST 13 L ALT 9 L Alkaline Phosphatase 64 Total Protein 5.0 L Albumin 1.9 L TSH 6.480 H 02/19/18 06:23 WBC RBC Hgb Hct MCV MCH MCHC RDW Plt Count MPV Prelim Diff (Auto) Neut % (Auto) Lymph % (Auto) [place] % (Auto) Eos % (Auto) Baso % (Auto) Neut # (Auto) Lymph # (Auto) [place] # (Auto) Eos # (Auto) Baso # (Auto) WBC Differential Seg Neuts % (Manual) Band Neuts % (Manual) Lymphocytes % (Manual) Monocytes % (Manual) Eosinophils % (Manual) Basophils % (Manual) Myelocytes % (Man) Abs Neuts (Manual) Differential Comment Toxic Granulation Platelet Estimate Platelet Morphology Ovalocytes [place] Cells Sodium 142 Potassium 4.9 Chloride 106 Carbon Dioxide 27.7 Anion Gap 8 BUN 27 H Creatinine 0.99 Estimated GFR 55 L Random Glucose 110 H Calcium 7.9 L Phosphorus 1.8 L Magnesium 1.9 Total Bilirubin 0.3 AST 13 L ALT 9 L Alkaline Phosphatase 66 Total Protein 5.1 L Albumin 1.9 L TSH Result Diagrams: 02/20/18 14:02 02/19/18 06:23 Imaging: Chest X-Ray 02/19/18 00:00 CONCLUSION: Bilateral mostly basilar airspace disease which may represent mild pulmonary edema with small effusions. Left basilar consolidation present. Procedures: 02/13/2018. 1. Laparoscopic gastrojejunostomy tube placement 2. Laparoscopic lysis of adhesions Patient/Family Conference Present at Family Conference: Spoke with patient at bedside. Family Conference Location: Bedside Issues Discussed: * Palliative care role, purpose, approach * Additional medical, psychosocial, and spiritual history * Patients general health, functional status, and cognitive changes in the months leading up to the current hospitalization * Patient/family understanding of the current medical problems * Patient/family understanding of prognosis * Patients goals of care as best understood from advance directives and/or conversations and/or values * Questions answered to the best of my ability * Palliative care contact information provided Assessment and Plan - Disease Oriented Problem List (1) Acute adjustment disorder with depressed mood (2) Hypothyroidism (3) Arthritis (4) Barretts esophagus (5) History of laryngeal cancer Comment: Diagnosed in 2014 status post chemotherapy and radiation. - Symptom Scale (1) Debility, unspecified 0-10 Scale: Unable to quantify (2) Dysphasia 0-10 Scale: Unable to quantify Pertinent Non-Medical Issues: Psychosocial: Patient is originally from [place]. She has 4 brothers and 2 sisters. She moved to [place] approximately 40 years ago. Patient was for 18 years and then . She and her had 3 sons (Alireza, Sagar and Cameron). Alireza is a physicians cafe assistant and lives in [place]. Souravvimal and Cameron live in [place]. Per patient, Cameron was born with "autism" and live in a fpc Spiritual: Sabianism syed Legal: Patient's son, Alireza Whitten, is the designated healthcare surrogate decision maker. Ethical issues impacting care: No known ethical issues impacting care at this time. 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 She has had an acute decline over the past 6 months as evidenced by progressively increased weakness, weight loss, worsening dysphagia and coughing with thin liquids. She reports that she feels she is getting stronger status post having G-J-tube replaced on 02/13/2018. Hospital course is now complicated by possible pneumonia; patient was started on Levaquin. At this time it is unclear if the patient will regain some of her strength/functional status or experience ongoing complications and decline Code Status: Full Code Plan: * FULL CODE * Decision-making: Patient currently shows insight and judgment related to her medical conditions. In the event that she loses capacity for medical decision- making, she has designated her son (Alireza) as the healthcare surrogate decision maker. * AGGRESSIVE GOALS. Patient states that she wants to get better/stronger. After speaking with her son, she is amenable to SNF placement for rehab if that is an option and will help her accomplish her previously stated goals. * Discussed patient with bedside nurse and housing case manager, Sandra. 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 EGD with esophageal dilatation was done on 07/01/2017. Patient had a G/J-tube but that came out in May,. Now with worsening dysphasia; coughing after swallowing thin liquids. A modified barium swallow was performed with speech pathology patient was given a variety of liquids to swallow which revealed moderate silent aspiration. GJ tube was replaced on 02/13/2017. = Debility: Likely secondary to macrocytic anemia, possible B12 folate deficiency from poor nutrition. Patient verbalizing aggressive goals wanting to get better/stronger. Per PT note, patient was able to ambulate within her hospital room while holding onto the IV pole; PT made recommendations that the patient be discharged home with home health care for functional training. However, patient's son does not feel she is strong enough to go home at this time and wants her to be placed in a senior care facility initially for rehab. Patient was previously refusing placement, but after speaking to her son earlier today she Is now amenable to SNF placement for rehab if that is an option. * Palliative care will continue to follow this patient throughout her hospitalization to establish trust, assist with symptom management and clarification of medical treatment goals. . Appreciation Thank you for the opportunity to participate in the care of Ana M Henson. Attestation Attestation: To help prompt me to consider important information that might be impacting today's encounter and assessment, information from prior notes written by myself or my colleagues may have been "brought forward" into today's note. My signature on this note, however, is an attestation that I personally performed the exam, history, and/or decision-making noted today, and, unless otherwise indicated, the interactions with patient, family, and staff as well as the review of records all occurred today. I also attest that the listed assessment and stated plan reflect my best clinical judgment today based on the combination of historical information, prior notes, and today's exam/ interactions. When time spent is documented, it refers only to time spent today by the signer, or if indicated, combined time spent today by collaborating physician/nurse practitioner.
[2018-02-20] MEDS: metroNIDAZOLE 500 MG Tablet G-TUBE SCH ×3 (12:23→21:46)
[2018-02-20 14:30] LABS: Baso # (Auto) 0.1 th/mm3 (0.0-0.2); Baso % (Auto) 1.2 % (0.0-2.0); Eos # (Auto) 0.1 th/mm3 (0.0-0.4); Eos % (Auto) 1.4 % (0.0-4.0); Hematocrit 21.4 % (35.0-46.0); Hemoglobin 7.1 gm/dL (11.6-15.3); Lymph % (Auto) 43.3 % (9.0-44.0); Mean Corpuscular HGB Conc 33.3 % (32.0-36.0); Mean Corpuscular Hemoglobin 32.2 pg (27.0-34.0); Mean Corpuscular Volume 96.8 fL (80.0-100.0); Mean Platelet Volume 9.3 fL (7.0-11.0); Mono # (Auto) 0.1 th/mm3 (0.0-0.9); Mono % (Auto) 1.8 % (0.0-8.0); Neut # (Auto) 2.4 th/mm3 (1.8-7.7); Neut % (Auto) 52.3 % (16.0-70.0); Platelet Count 257 th/mm3 (150-450); Red Blood Count 2.21 mil/mm3 (4.00-5.30); Red Cell Distribution Width 20.4 % (11.6-17.2); White Blood Count 4.7 th/mm3 (4.0-11.0)
[2018-02-20 15:40] LABS: Eosinophils 1 % (0-4); Lymphocytes 13 % (9-44); Monocytes 10 % (0-8)
[2018-02-20 15:42] LABS: Ovalocytes 1+; Platelet Estimate Normal (Normal); Platelet Morphology Normal (Normal); Spherocytes 1+
[2018-02-21] MEDS: [UNRECOGNIZED DRUG - SUPPLY] OROPHARYNG SCH ×4 (02:27→17:12)
[2018-02-21] MEDS: Pantoprazole Inj 40 MG Vial IV.PUSH SCH (02:35)
[2018-02-21] MEDS: Levothyroxine 100 MCG Tablet PO SCH (05:58)
[2018-02-21] MEDS: metroNIDAZOLE 500 MG Tablet G-TUBE SCH ×2 (05:59→14:43)
[2018-02-21 07:34] LABS: Calcium 8.1 mg/dL (8.5-10.1); Carbon Dioxide 29.7 meq/L (21.0-32.0); Potassium 4.6 meq/L (3.5-5.1)
[2018-02-21 07:42] LABS: Baso # (Auto) 0.1 th/mm3 (0.0-0.2); Baso % (Auto) 1.4 % (0.0-2.0); Eos # (Auto) 0.1 th/mm3 (0.0-0.4); Eos % (Auto) 1.4 % (0.0-4.0); Lymph # (Auto) 0.6 th/mm3 (1.0-4.8); Lymph % (Auto) 14.7 % (9.0-44.0); Mean Corpuscular HGB Conc 34.7 % (32.0-36.0); Mean Corpuscular Hemoglobin 33.9 pg (27.0-34.0); Mean Corpuscular Volume 97.8 fL (80.0-100.0); Mean Platelet Volume 10.3 fL (7.0-11.0); Mono # (Auto) 1.2 th/mm3 (0.0-0.9); Mono % (Auto) 27.9 % (0.0-8.0); Neut # (Auto) 2.3 th/mm3 (1.8-7.7); Neut % (Auto) 54.6 % (16.0-70.0); Platelet Count 260 th/mm3 (150-450); Red Blood Count 2.04 mil/mm3 (4.00-5.30); Red Cell Distribution Width 20.2 % (11.6-17.2); White Blood Count 4.3 th/mm3 (4.0-11.0)
[2018-02-21 07:54] LABS: Hemoglobin 6.9 gm/dL (11.6-15.3)
[2018-02-21] MEDS: Carbamide Peroxide 6.5% Otic Drops 15 ML Bottle RIGHT EAR SCH ×2 (08:22→20:43)
[2018-02-21] MEDS: Metoprolol Tartrate 25 MG Tablet PO SCH ×2 (08:22→20:44)
--- NOTE | 2018-02-21 08:39 | P.PNIM ---
Subjective Interval history: She reports her chest congestion is better less coughing. She is ambulating to the bathroom. She also reports she is now open to going to a [facility] facility post discharge. She is not actively short of breath. She has not seen any blood in her stools. Physical Exam Vital signs: Vital Signs 02/20/18 10:22 02/20/18 12:00 02/20/18 15:24 Temperature 97.1 F L 97.9 F Pulse Rate 89 71 67 Respiratory Rate 16 18 20 Blood Pressure 101/49 L 94/46 L Pulse Oximetry 96 96 97 02/20/18 20:00 02/20/18 22:00 02/21/18 00:00 Temperature 97.7 F 98.2 F Pulse Rate 79 77 Respiratory Rate 19 18 19 Blood Pressure 107/53 L 103/50 L Pulse Oximetry 97 96 02/21/18 04:00 02/21/18 05:25 Temperature 97.2 F L Pulse Rate 78 Respiratory Rate 18 17 Blood Pressure 107/69 Pulse Oximetry 94 L Intake & Output 02/20/18 02/21/18 02/21/18 18:59 06:59 18:59 Intake Total 2198 / 2198 Balance 2198 / 2198 Weight 64.1 kg Intake: IV 1158 / 1158 LR 1000 mL Inj 1,000 ML @ 84 1008 / 1008 mls/hr IV.SIG .[id number] ANN Rx#: [id number] Levaquin 750 mg Premix Inj 150 150 / 150 ML @ 100 mls/hr IV.SIG Q24H ANN Rx#:[id number] Tube Feeding 840 / 840 Tube Irrigant 200 / 200 Other: # Voids 7 6 Date of Last Bowel Movement 02/19/18 02/20/18 Narrative: GENERAL: This is a well-nourished, well-developed patient, in no apparent distress sleepy. CARDIOVASCULAR: Regular rate and rhythm RESPIRATORY: Few left base crackles MUSCULOSKELETAL: Extremities without clubbing, cyanosis, or edema. NEURO: Alert & Oriented x3 to person, place, time moves all ext x4 Results - Labs CBC & Chem 7: 02/21/18 06:43 02/21/18 06:40 Laboratory Results - last 24 hr 02/20/18 02/21/18 02/21/18 14:02 06:40 06:43 WBC 4.7 4.3 RBC 2.21 L 2.04 L Hgb 7.1 L 6.9 L* Hct 21.4 L 20.0 L* MCV 96.8 97.8 MCH 32.2 33.9 MCHC 33.3 34.7 RDW 20.4 H 20.2 H Plt Count 257 260 MPV 9.3 10.3 Prelim Diff (Auto) Slide review pending Slide review pending Neut % (Auto) 52.3 54.6 Lymph % (Auto) 43.3 14.7 [place] % (Auto) 1.8 27.9 H Eos % (Auto) 1.4 1.4 Baso % (Auto) 1.2 1.4 Neut # (Auto) 2.4 2.3 Lymph # (Auto) 2.0 0.6 L [place] # (Auto) 0.1 1.2 H Eos # (Auto) 0.1 0.1 Baso # (Auto) 0.1 0.1 WBC Differential Manual diff final Seg Neuts % (Manual) 62 Band Neuts % (Manual) 14 H Lymphocytes % (Manual) 13 Monocytes % (Manual) 10 H Eosinophils % (Manual) 1 Abs Neuts (Manual) 3.6 Differential Comment . . Platelet Estimate Normal Platelet Morphology Normal Spherocytes 1+ H Ovalocytes 1+ H Sodium 138 Potassium 4.6 Chloride 100 Carbon Dioxide 29.7 Anion Gap 8 BUN 27 H Creatinine 1.00 Estimated GFR 55 L Random Glucose 111 H Calcium 8.1 L - Procedures G-J TUBE PLACEMENT DATE OF OPERATION: 02/13/2018 DATE OF PROCEDURE: 02/13/2018. PREOPERATIVE DIAGNOSIS: Feeding difficulty in adult, malnutrition, history of squamous cell cancer. POSTOPERATIVE DIAGNOSIS: Feeding difficulty in adult, malnutrition, history of squamous cell cancer. PROCEDURE PERFORMED: 1. Laparoscopic gastrojejunostomy tube placement. 22F 2. Laparoscopic lysis of adhesions. SURGEON: Dr. Tarik Kraus Assessment and Plan - Plan Dysphagia Failed swallow evaluation GJ tube placed with Dr. Kraus on 02/13/2018 continue vital 1.5 tube feeds Doing well with oral care Stridor Occurs exclusively during sleep, no difficulty breathing while awake, no stridor while awake Monitor for now, oxygen support as needed at 2 L per nasal cannula Aspiration pneumonia with hypoxia -wean oxygen as tolerated Start Levaquin for coverage and add Flagyl. Fluid overload- Initiate diuretics today and wean oxygen support as tolerated. Anemia, acute on chronic Metamyelocytes, myelocytes, nucleated RBCs, and enlarged platelets on CBC with diff Large part due to malnutrition, PEG tube placement failure reduced p.o. intake significantly over the last 3 months s/p 2 units of packed red blood cells previously Hemoglobin appears to drop again at 6.9 today we will transfuse another 2 units of packed red blood cells. Appreciate hematology consult Sinus tachycardiaresolved, previously likely due to hypovolemia and anemia Begin metoprolol 12.5 mg twice daily, hold for systolic pressures less than 105 Earwax impaction Recurrent by her history Affecting right ear, continue twice daily Debrox Hypomagnesemia Resolved Adjustment disorder with depression Lexapro, status post evaluation with psychiatry Malnutrition VITAL 1.5 at 65 mL/h for 22 hours hold for Synthroid per dietary consultation. Will need to determine if home health care is able to arrange for continuous pump versus evaluate for bolus feeds. Appreciate palliative care consultation and discussed with patient short-term and long-term goals. For discharge planning to penit[facility]iary facility DVT prophylaxis SCDs Discharge Planning: To penitentiary facility in the next 1-2 days pending clinical status.
[2018-02-21] MEDS ORDERED: Sodium Chlor 0.9% Inj 250 ML IV.SIG SCH ×2 (09:00)
[2018-02-21 09:34] LABS: Eosinophils 4 % (0-4); Lymphocytes 26 % (9-44); Monocytes 3 % (0-8); Platelet Estimate Normal (Normal)
[2018-02-21 09:35] LABS: Ovalocytes 1+; Platelet Morphology Normal (Normal)
--- NOTE | 2018-02-21 12:26 | P.PNPAL ---
Reason for Visit Reason for visit: a. To assist with evaluation and management of symptoms including: debility, dysphagia b. To assist medical decision maker(s) with: better understanding of current medical conditions; weighing benefits/burdens of medical treatment options; making medical treatment decisions. Subjective Subjective/Interval History: Ms. Henson is a 72-year-old female who presented to [facility] on 02/11/2018 progressively worsening generalized weakness that had become severe in the previous 2 days. 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 Hooper and Dr. Pineda. Patient stated she has difficulty swallowing and was coughing with liquids. She has a known history of esophageal stricture requiring dilatation. Patient previously had a J-G tube but it fell out in 2016. Since then, she had been drinking supplemental nutritional drinks but her insurance stopped paying for them last September. Patient reports she feels like she is getting amari and gaining weight s/p G-J-tube being replaced on 2017. Hospitalization has been complicated by patient's depression and intermittent suicidal ideation (now resolved), requiring psychiatric evaluation. Follow up visit for symptom management and clarification of medical treatment goals; co-visit with Marcy Archibald, Palliative Care [employer] C[employer] PASTOR Patient present lying in bed; she complains of feeling weak and lethargic. She denies pain and dyspnea. Oxygen saturations remained stable on 2 L via nasal cannula. Follow-up chest x-ray on 02/19/2018 showed bilateral mostly basilar airspace disease which may represent mild pulmonary edema with small effusions. Left basilar consolidation present. Started on Levaquin 02/20/2018; plan to add Flagyl. Plan to initiate diuretics as well. Two units of PRBCs are ordered secondary to H/H of 6.9/20.0 Sodium: 138, potassium 4.6, chloride 100, glucose 111, calcium 8.1, BUN 27, creatinine 1.00, GFR 55 Tolerating artificial nutrition vital 1.5 at 65ml/hour for 22 hours, holding for Synthroid per dietary consult. Patient continues to verbalize ongoing aggressive goals. She is now amenable to SNF placement for rehab at discharge. Family/Friend Interactions: See interval note Advance Directives Health Care Surrogate Name and Number: Alireza Whitten, son: [phone] or [phone] Documented care wishes:: Completed a living will is accessible in the patient's paper chart. Objective Vital Signs: Vital Signs 02/20/18 15:24 02/20/18 20:00 02/20/18 22:00 Temperature 97.9 F 97.7 F Pulse Rate 67 79 Respiratory Rate 20 19 18 Blood Pressure 94/46 L 107/53 L Pulse Oximetry 97 97 02/21/18 00:00 02/21/18 04:00 02/21/18 05:25 Temperature 98.2 F 97.2 F L Pulse Rate 77 78 Respiratory Rate 19 18 17 Blood Pressure 103/50 L 107/69 Pulse Oximetry 96 94 L 02/21/18 08:00 Temperature 97.9 F Pulse Rate 79 Respiratory Rate 16 Blood Pressure 91/53 L Pulse Oximetry 96 Intake & Output 02/20/18 02/21/18 02/21/18 18:59 06:59 18:59 Intake Total 2198 / 2198 Balance 2198 / 2198 Weight 64.1 kg Intake: IV 1158 / 1158 LR 1000 mL Inj 1,000 ML @ 84 1008 / 1008 mls/hr IV.SIG .[id number] ANN Rx#: [id number] Levaquin 750 mg Premix Inj 150 150 / 150 ML @ 100 mls/hr IV.SIG Q24H ANN Rx#:[id number] Tube Feeding 840 / 840 Tube Irrigant 200 / 200 Other: # Voids 7 6 Date of Last Bowel Movement 02/19/18 02/20/18 Physical Exam: CONSTITUTIONAL/GENERAL: This is a frail, elderly female patient in no acute distress. TUBES/LINES/DRAINS: PIV 1, nasal cannula, SKIN: No jaundice, rashes, or lesions. Ecchymoses on upper extremities. No wounds seen anteriorly. Skin temperature appropriate. Not diaphoretic. HEAD: Atraumatic. Normocephalic. EYES: Pupils equal and round and reactive. Extraocular motions intact. No scleral icterus. No injection or drainage. Fundi not examined. ENT: Hearing grossly normal. Nose without bleeding or purulent drainage. Mucous membranes dry. NECK: Trachea midline. Supple, nontender. No palpable thyroid enlargement or nodularity. CARDIOVASCULAR: Regular rate and rhythm without murmurs, gallops, or rubs. No JVD. Peripheral pulses symmetric. RESPIRATORY/CHEST: Symmetric, unlabored respirations. Coarse breath sounds GASTROINTESTINAL: Abdomen soft, non-tender, nondistended. No hepato-splenomegaly , or palpable masses. No guarding. Bowel sounds present. GENITOURINARY: Without palpable bladder distension. Orellana catheter in place. MUSCULOSKELETAL: Extremities without clubbing, cyanosis, or edema. No mottling or clubbing. LYMPHATICS: No palpable cervical or supraclavicular adenopathy. NEUROLOGICAL: Awake; lethargic. Answers questions. Follows commands. Able to make needs known. PSYCHIATRIC: No obvious anxiety/agitation. No suicidal ideation. Diagnostic Tests Laboratory: Laboratory Results - last 72 hr 02/19/18 02/19/18 02/20/18 06:23 06:23 14:02 WBC 4.7 4.7 RBC 2.16 L 2.21 L Hgb 7.0 L 7.1 L Hct 21.0 L 21.4 L MCV 97.0 96.8 MCH 32.3 32.2 MCHC 33.3 33.3 RDW 20.8 H 20.4 H Plt Count 264 257 MPV 9.8 9.3 Prelim Diff (Auto) Slide review pending Slide review pending Neut % (Auto) 50.2 52.3 Lymph % (Auto) 44.3 H 43.3 [place] % (Auto) 2.5 1.8 Eos % (Auto) 2.3 1.4 Baso % (Auto) 0.7 1.2 Neut # (Auto) 2.4 2.4 Lymph # (Auto) 2.1 2.0 [place] # (Auto) 0.1 0.1 Eos # (Auto) 0.1 0.1 Baso # (Auto) 0.0 0.1 WBC Differential Manual diff final Manual diff final Seg Neuts % (Manual) 58 62 Band Neuts % (Manual) 13 H 14 H Lymphocytes % (Manual) 18 13 Monocytes % (Manual) 3 10 H Eosinophils % (Manual) 8 H 1 Basophils % (Manual) Abs Neuts (Manual) 3.3 3.6 Differential Comment . . Platelet Estimate Normal Normal Platelet Morphology Normal Normal Spherocytes 1+ H Ovalocytes 1+ H [place] Cells 1+ H Sodium 142 Potassium 4.9 Chloride 106 Carbon Dioxide 27.7 Anion Gap 8 BUN 27 H Creatinine 0.99 Estimated GFR 55 L Random Glucose 110 H Calcium 7.9 L Phosphorus 1.8 L Magnesium 1.9 Total Bilirubin 0.3 AST 13 L ALT 9 L Alkaline Phosphatase 66 Total Protein 5.1 L Albumin 1.9 L 02/21/18 02/21/18 06:40 06:43 WBC 4.3 RBC 2.04 L Hgb 6.9 L* Hct 20.0 L* MCV 97.8 MCH 33.9 MCHC 34.7 RDW 20.2 H Plt Count 260 MPV 10.3 Prelim Diff (Auto) Slide review pending Neut % (Auto) 54.6 Lymph % (Auto) 14.7 [place] % (Auto) 27.9 H Eos % (Auto) 1.4 Baso % (Auto) 1.4 Neut # (Auto) 2.3 Lymph # (Auto) 0.6 L [place] # (Auto) 1.2 H Eos # (Auto) 0.1 Baso # (Auto) 0.1 WBC Differential Manual diff final Seg Neuts % (Manual) 58 Band Neuts % (Manual) 8 H Lymphocytes % (Manual) 26 Monocytes % (Manual) 3 Eosinophils % (Manual) 4 Basophils % (Manual) 1 Abs Neuts (Manual) 2.8 Differential Comment . Platelet Estimate Normal Platelet Morphology Normal Spherocytes Ovalocytes 1+ H [place] Cells Sodium 138 Potassium 4.6 Chloride 100 Carbon Dioxide 29.7 Anion Gap 8 BUN 27 H Creatinine 1.00 Estimated GFR 55 L Random Glucose 111 H Calcium 8.1 L Phosphorus Magnesium Total Bilirubin AST ALT Alkaline Phosphatase Total Protein Albumin Result Diagrams: 02/21/18 06:43 02/21/18 06:40 Procedures: 02/13/2018. 1. Laparoscopic gastrojejunostomy tube placement 2. Laparoscopic lysis of adhesions Assessment and Plan - Disease Oriented Problem List (1) Acute adjustment disorder with depressed mood (2) Hypothyroidism (3) Arthritis (4) Barretts esophagus (5) History of laryngeal cancer Comment: Diagnosed in 2015 status post chemotherapy and radiation. - Symptom Scale (1) Debility, unspecified 0-10 Scale: Unable to quantify (2) Dysphasia 0-10 Scale: Unable to quantify Pertinent Non-Medical Issues: Psychosocial: Patient is originally from [place]. She has 4 brothers and 2 sisters. She moved to [place] approximately 40 years ago. Patient was for 18 years and then . She and her had 3 sons (Alireza, Sagar and Cameron). Alireza is a physicians agency sales management assistant and lives in [place]. Adalid and Cameron live in [place]. Per patient, Cameron was born with "autism" and live in a penitentiary Spiritual: [employer] Legal: Patient's son, Alireza Whitten, is the designated healthcare surrogate decision maker. Ethical issues impacting care: No known ethical issues impacting care at this time. 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 She has had an acute decline over the past 6 months as evidenced by progressively increased weakness, weight loss, worsening dysphagia and coughing with thin liquids. She reports that she feels she is getting stronger status post having G-J-tube replaced on 02/13/2018. Hospital course is now complicated by possible pneumonia; patient was started on Levaquin. At this time it is unclear if the patient will regain some of her strength/functional status or experience ongoing complications and decline Code Status: Full Code Plan: * FULL CODE * Decision-making: Patient currently shows insight and judgment related to her medical conditions. In the event that she loses capacity for medical decision- making, she has designated her son (Alireza) as the healthcare surrogate decision maker. * AGGRESSIVE GOALS. Patient states that she wants to get better/stronger. She is now amenable to SNF placement for rehab at discharge. 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 EGD with esophageal dilatation was done on 07/01/2017. Patient had a G/J-tube but that came out in May,. Now with worsening dysphasia; coughing after swallowing thin liquids. A modified barium swallow was performed with speech pathology patient was given a variety of liquids to swallow which revealed moderate silent aspiration. GJ tube was replaced on 02/13/2017. Tolerating artificial nutrition vital 1.5 at 65ml/hour for 22 hours, hold for Synthroid per dietary consult. = Debility: Patient verbalizing aggressive goals wanting to get better/stronger. Per PT note, patient was able to ambulate within her hospital room while holding onto the IV pole; PT made recommendations that the patient be discharged home with home health care for functional training. However, patient's son does not feel she is strong enough to go home at this time and wants her to be placed in a senior living facility initially for rehab. Patient was previously refusing placement, but after speaking to her son earlier today she Is now amenable to SNF placement for rehab if that is an option. * Palliative care will continue to follow this patient throughout her hospitalization to establish trust, assist with symptom management and clarification of medical treatment goals. . Attestation Attestation: To help prompt me to consider important information that might be impacting today's encounter and assessment, information from prior notes written by myself or my colleagues may have been "brought forward" into today's note. My signature on this note, however, is an attestation that I personally performed the exam, history, and/or decision-making noted today, and, unless otherwise indicated, the interactions with patient, family, and staff as well as the review of records all occurred today. I also attest that the listed assessment and stated plan reflect my best clinical judgment today based on the combination of historical information, prior notes, and today's exam/ interactions. When time spent is documented, it refers only to time spent today by the signer, or if indicated, combined time spent today by collaborating physician/nurse practitioner.
--- NOTE | 2018-02-21 23:27 | P.PN ---
Subjective Interval history: not seen Physical Exam Vital signs: Vital Signs 02/21/18 00:00 02/21/18 04:00 02/21/18 05:25 Temperature 98.2 F 97.2 F L Pulse Rate 77 78 Respiratory Rate 19 18 17 Blood Pressure 103/50 L 107/69 Pulse Oximetry 96 94 L 02/21/18 08:00 02/21/18 12:00 02/21/18 16:09 Temperature 97.9 F 97.1 F L 97.6 F Pulse Rate 79 75 82 Respiratory Rate 16 16 16 Blood Pressure 91/53 L 122/60 108/49 L Pulse Oximetry 96 94 L 97 02/21/18 16:25 02/21/18 16:53 02/21/18 19:55 Temperature 97.6 F 97.9 F Pulse Rate 68 64 66 Respiratory Rate 18 18 Blood Pressure 89/43 L 95/47 L 113/55 L Pulse Oximetry 96 02/21/18 20:00 02/21/18 20:27 02/21/18 20:43 Temperature 97.9 F 97.9 F 97.9 F Pulse Rate 64 66 66 Respiratory Rate 18 18 20 Blood Pressure 113/55 L 113/55 L 103/45 L Pulse Oximetry 96 96 98 02/21/18 20:47 Temperature 97.9 F Pulse Rate 66 Respiratory Rate 20 Blood Pressure 103/45 L Pulse Oximetry Intake & Output 02/21/18 02/21/18 02/22/18 06:59 18:59 06:59 Intake Total 1984 400 / 400 Balance 1984 400 / 400 Weight 64.1 kg Intake: IV 1150 / 1150 LR 1000 mL Inj 1,000 ML @ 84 1000 / 1000 mls/hr IV.SIG .[id number] ANN Rx#: [id number] Levaquin 750 mg Premix Inj 150 150 / 150 ML @ 100 mls/hr IV.SIG Q24H ANN Rx#:[id number] Tube Feeding 475 / 475 Tube Irrigant 60 / 60 Water Bolus Amount 300 / 300 Intake (Blood Product) Amt 0 / 0 400 / 400 Rbc As-3 Leukoreduced Unit 0 / 0 [id number] Rbc As-3 Leukoreduced Unit 0 / 0 400 / 400 [id number] Other: # Voids 6 4 Date of Last Bowel Movement 02/20/18 # Bowel Movements 1 Results - Labs CBC & Chem 7: 02/21/18 06:43 02/21/18 06:40 Laboratory Results - last 24 hr 02/16/18 02/21/18 02/21/18 13:23 06:40 06:43 WBC 4.3 RBC 2.04 L Hgb 6.9 L* Hct 20.0 L* MCV 97.8 MCH 33.9 MCHC 34.7 RDW 20.2 H Plt Count 260 MPV 10.3 Prelim Diff (Auto) Slide review pending Neut % (Auto) 54.6 Lymph % (Auto) 14.7 [place] % (Auto) 27.9 H Eos % (Auto) 1.4 Baso % (Auto) 1.4 Neut # (Auto) 2.3 Lymph # (Auto) 0.6 L [place] # (Auto) 1.2 H Eos # (Auto) 0.1 Baso # (Auto) 0.1 WBC Differential Manual diff final Seg Neuts % (Manual) 58 Band Neuts % (Manual) 8 H Lymphocytes % (Manual) 26 Monocytes % (Manual) 3 Eosinophils % (Manual) 4 Basophils % (Manual) 1 Abs Neuts (Manual) 2.8 Differential Comment . Platelet Estimate Normal Platelet Morphology Normal Ovalocytes 1+ H Sodium 138 Potassium 4.6 Chloride 100 Carbon Dioxide 29.7 Anion Gap 8 BUN 27 H Creatinine 1.00 Estimated GFR 55 L Random Glucose 111 H Calcium 8.1 L RBC Folate 229 L Blood Type Blood Type Confirm Antibody Screen MTS Gel Crossmatch 02/21/18 02/21/18 12:55 14:59 WBC RBC Hgb Hct MCV MCH MCHC RDW Plt Count MPV Prelim Diff (Auto) Neut % (Auto) Lymph % (Auto) [place] % (Auto) Eos % (Auto) Baso % (Auto) Neut # (Auto) Lymph # (Auto) [place] # (Auto) Eos # (Auto) Baso # (Auto) WBC Differential Seg Neuts % (Manual) Band Neuts % (Manual) Lymphocytes % (Manual) Monocytes % (Manual) Eosinophils % (Manual) Basophils % (Manual) Abs Neuts (Manual) Differential Comment Platelet Estimate Platelet Morphology Ovalocytes Sodium Potassium Chloride Carbon Dioxide Anion Gap BUN Creatinine Estimated GFR Random Glucose Calcium RBC Folate Blood Type B Positive Blood Type Confirm B Positive Antibody Screen Negative MTS Gel Crossmatch See Detail - Imaging ITS Impressions Chest X-Ray 02/19/18 00:00 CONCLUSION: Bilateral mostly basilar airspace disease which may represent mild pulmonary edema with small effusions. Left basilar consolidation present. - Procedures G-J TUBE PLACEMENT DATE OF OPERATION: 02/13/2018 DATE OF PROCEDURE: 02/13/2018. PREOPERATIVE DIAGNOSIS: Feeding difficulty in adult, malnutrition, history of squamous cell cancer. POSTOPERATIVE DIAGNOSIS: Feeding difficulty in adult, malnutrition, history of squamous cell cancer. PROCEDURE PERFORMED: 1. Laparoscopic gastrojejunostomy tube placement. 22F 2. Laparoscopic lysis of adhesions. SURGEON: Dr. Tarik Kraus Assessment and Plan - Plan Dysphagia hx milan's s/p dilatation 2016 and laryngeal ca s/p chemo and RT Failed swallow evaluation GJ tube placed with Dr. Kraus on 02/13/2018 continue vital 1.5 tube feeds Doing well with oral care Stridor Occurs exclusively during sleep, no difficulty breathing while awake, no stridor while awake Monitor for now, oxygen support as needed at 2 L per nasal cannula Aspiration pneumonia with hypoxia -wean oxygen as tolerated Ct Levaquin and Flagyl. Fluid overload- Initiate diuretics today and wean oxygen support as tolerated. Anemia, acute on chronic Metamyelocytes, myelocytes, nucleated RBCs, and enlarged platelets on CBC with diff Large part due to malnutrition, PEG tube placement failure reduced p.o. intake significantly over the last 3 months s/p 2 units of packed red blood cells previously Hemoglobin appears to drop again at 6.9 today we will transfuse another 2 units of packed red blood cells. Appreciate hematology consult Sinus tachycardiaresolved, previously likely due to hypovolemia and anemia Begin metoprolol 12.5 mg twice daily, hold for systolic pressures less than 105 Earwax impaction Recurrent by her history Affecting right ear, continue twice daily Debrox Hypomagnesemia Resolved Adjustment disorder with depression Lexapro, status post evaluation with psychiatry Malnutrition VITAL 1.5 at 65 mL/h for 22 hours hold for Synthroid per dietary consultation. Will need to determine if home health care is able to arrange for continuous pump versus evaluate for bolus feeds. Appreciate palliative care consultation and discussed with patient short-term and long-term goals. For discharge planning to [facility] facility DVT prophylaxis SCDs Discharge Planning: To [facility] facility in the next 1-2 days pending clinical status.
[2018-02-22] MEDS: metroNIDAZOLE 500 MG Tablet G-TUBE SCH ×3 (00:12→13:02)
[2018-02-22] MEDS: [UNRECOGNIZED DRUG - SUPPLY] OROPHARYNG SCH ×4 (00:17→16:55)
[2018-02-22] MEDS: Levothyroxine 100 MCG Tablet PO SCH (06:24)
[2018-02-22 08:35] LABS: Hematocrit 27.9 % (35.0-46.0); Hemoglobin 9.7 gm/dL (11.6-15.3); Mean Corpuscular HGB Conc 34.8 % (32.0-36.0); Mean Corpuscular Hemoglobin 31.8 pg (27.0-34.0); Mean Corpuscular Volume 91.4 fL (80.0-100.0); Mean Platelet Volume 9.9 fL (7.0-11.0); Platelet Count 303 th/mm3 (150-450); Red Blood Count 3.05 mil/mm3 (4.00-5.30); Red Cell Distribution Width 18.8 % (11.6-17.2); White Blood Count 5.6 th/mm3 (4.0-11.0)
[2018-02-22 09:04] LABS: Albumin 2.1 g/dL (3.4-5.0); Anion Gap 9 meq/L (5-15); Aspartate Aminotransferase 15 U/L (15-37); Blood Urea Nitrogen 31 mg/dL (7-18); Calcium 8.1 mg/dL (8.5-10.1); Carbon Dioxide 31.1 meq/L (21.0-32.0); Chloride 99 meq/L (98-107); Glomerular Filtration Rate 48 mL/min (>89); Glucose,Random 117 mg/dL (74-106); Magnesium 1.5 mg/dL (1.5-2.5); Potassium 4.3 meq/L (3.5-5.1); Sodium 139 meq/L (136-145)
[2018-02-22 09:08] LABS: Alanine Aminotransferase 12 U/L (10-53); Alkaline Phosphatase 75 U/L (45-117); Total Protein 5.4 g/dL (6.4-8.2)
[2018-02-22] MEDS: Lansoprazole ODT 15 MG Tablet G-TUBE SCH (09:13)
[2018-02-22] MEDS: Metoprolol Tartrate 25 MG Tablet PO SCH ×2 (09:14→21:11)
[2018-02-22] MEDS: Carbamide Peroxide 6.5% Otic Drops 15 ML Bottle RIGHT EAR SCH ×2 (09:18→21:11)
[2018-02-22 09:29] LABS: Eosinophils 4 % (0-4); Lymphocytes 9 % (9-44); Metamyelocytes 2 % (0-1); Monocytes 11 % (0-8); Myelocytes 6 % (0-0); Platelet Estimate Normal (Normal)
[2018-02-22 09:30] LABS: Ovalocytes 1+
[2018-02-22] MEDS ORDERED: Etomidate Inj 40 MG/20 ML Vial IV.PUSH ONE (18:04)
--- NOTE | 2018-02-22 18:24 | P.PN ---
Subjective Interval history: Follow-up respiratory failure. CODE BLUE secondary to respiratory failure. Patient complaining of difficulty breathing states there is something in the back of the throat. She is currently n.p.o. status post PEG. Patient became cyanotic and continued to be in respiratory distress with audible wheezing. She had emergent intubation by critical care medicine. During intubation thick white yellow material was suctioned. Discussed with TRENT, agrees with aggressive treatment at this time. He requests a follow-up call after stabilization of the patient. Case discussed with on-call critical care medicine. Physical Exam Vital signs: Vital Signs 02/21/18 19:55 02/21/18 20:00 02/21/18 20:27 Temperature 97.9 F 97.9 F 97.9 F Pulse Rate 66 64 66 Respiratory Rate 18 18 18 Blood Pressure 113/55 L 113/55 L 113/55 L Pulse Oximetry 96 96 96 02/21/18 20:43 02/21/18 20:47 02/21/18 23:44 Temperature 97.9 F 97.9 F 98.2 F Pulse Rate 66 66 65 Respiratory Rate 20 20 18 Blood Pressure 103/45 L 103/45 L 102/60 Pulse Oximetry 98 02/22/18 00:00 02/22/18 00:10 02/22/18 00:31 Temperature 98.2 F Pulse Rate 65 79 Respiratory Rate 18 20 Blood Pressure 102/60 Pulse Oximetry 97 02/22/18 03:55 02/22/18 04:00 02/22/18 07:40 Temperature 97.4 F L Pulse Rate 63 71 75 Respiratory Rate 19 Blood Pressure 120/55 L Pulse Oximetry 93 L 02/22/18 11:30 02/22/18 12:00 02/22/18 12:33 Temperature 97.6 F Pulse Rate 67 81 Respiratory Rate 16 Blood Pressure 117/58 L Pulse Oximetry 92 L 92 L 02/22/18 14:56 02/22/18 16:43 02/22/18 16:54 Temperature 97.9 F Pulse Rate 78 73 Respiratory Rate 19 Blood Pressure 119/60 Pulse Oximetry 93 L 93 L Intake & Output 02/21/18 02/22/18 02/22/18 18:59 06:59 18:59 Intake Total 1984 1800 / 1800 1096 / 1096 Output Total Balance 1984 1800 / 1800 1091 / 1091 Weight 63.2 kg Intake: IV 1150 / 1150 1000 / 1000 400 / 400 LR 1000 mL Inj 1,000 ML @ 84 1000 / 1000 1000 / 1000 mls/hr IV.SIG .[id number] ANN Rx#: [id number] Levaquin 750 mg Premix Inj 150 150 / 150 150 / 150 ML @ 100 mls/hr IV.SIG Q24H ANN Rx#:[id number] Tube Feeding 475 / 475 696 / 696 Tube Irrigant 60 / 60 Water Bolus Amount 300 / 300 Intake (Blood Product) Amt 0 / 0 800 / 800 Rbc As-3 Leukoreduced Unit 400 / 400 [id number] Rbc As-3 Leukoreduced Unit 0 / 0 400 / 400 [id number] Output: Urine 5 / 5 Other: # Voids 4 10 Date of Last Bowel Movement 02/21/18 02/21/18 # Bowel Movements 1 1 Narrative: GENERAL: This is a well-nourished, well-developed patient, in respiratory distress tachypneic with use of accessory muscles Skin is warm no lesions CARDIOVASCULAR: Tachycardic RESPIRATORY: Equal breath sounds with expiratory wheezes MUSCULOSKELETAL: Extremities without clubbing, cyanosis, or edema. NEURO: Alert & moves all ext x4 Results - Labs CBC & Chem 7: 02/22/18 08:11 02/22/18 08:11 Laboratory Results - last 24 hr 02/16/18 02/21/18 02/22/18 13:23 12:55 08:11 WBC 5.6 RBC 3.05 L Hgb 9.7 L D Hct 27.9 L MCV 91.4 D MCH 31.8 MCHC 34.8 RDW 18.8 H Plt Count 303 MPV 9.9 Prelim Diff (Auto) Manual diff required WBC Differential Manual diff final Seg Neuts % (Manual) 61 Band Neuts % (Manual) 7 H Lymphocytes % (Manual) 9 Monocytes % (Manual) 11 H Eosinophils % (Manual) 4 Metamyelocytes % (Man) 2 H Myelocytes % (Man) 6 H Abs Neuts (Manual) 4.3 Differential Comment . Platelet Estimate Normal Platelet Morphology Enlarged H Ovalocytes 1+ H Sodium Potassium Chloride Carbon Dioxide Anion Gap BUN Creatinine Estimated GFR Random Glucose Calcium Phosphorus Magnesium Total Bilirubin AST ALT Alkaline Phosphatase Total Protein Albumin RBC Folate 229 L Blood Type B Positive Antibody Screen Negative MTS Gel Crossmatch See Detail 02/22/18 08:11 WBC RBC Hgb Hct MCV MCH MCHC RDW Plt Count MPV Prelim Diff (Auto) WBC Differential Seg Neuts % (Manual) Band Neuts % (Manual) Lymphocytes % (Manual) Monocytes % (Manual) Eosinophils % (Manual) Metamyelocytes % (Man) Myelocytes % (Man) Abs Neuts (Manual) Differential Comment Platelet Estimate Platelet Morphology Ovalocytes Sodium 139 Potassium 4.3 Chloride 99 Carbon Dioxide 31.1 Anion Gap 9 BUN 31 H Creatinine 1.11 H Estimated GFR 48 L Random Glucose 117 H Calcium 8.1 L Phosphorus 4.0 Magnesium 1.5 Total Bilirubin 0.6 AST 15 ALT 12 Alkaline Phosphatase 75 Total Protein 5.4 L Albumin 2.1 L RBC Folate Blood Type Antibody Screen MTS Gel Crossmatch - Procedures G-J TUBE PLACEMENT DATE OF OPERATION: 02/13/2018 DATE OF PROCEDURE: 02/13/2018. PREOPERATIVE DIAGNOSIS: Feeding difficulty in adult, malnutrition, history of squamous cell cancer. POSTOPERATIVE DIAGNOSIS: Feeding difficulty in adult, malnutrition, history of squamous cell cancer. PROCEDURE PERFORMED: 1. Laparoscopic gastrojejunostomy tube placement. 22F 2. Laparoscopic lysis of adhesions. SURGEON: Dr. Tarik Kraus Assessment and Plan - Plan Acute respiratory failure likely from aspiration. Patient has been emergently intubated by critical care medicine. Patient will be transferred to ICU. Obtain stat ABG and chest x-ray. Start scheduled nebulizations and IV steroids. Consult critical care medicine for ICU care Dysphagia hx milan's s/p dilatation 2016 and laryngeal ca s/p chemo and RT Failed swallow evaluation GJ tube placed with Dr. Kraus on 02/13/2018 continue vital 1.5 tube feeds Aspiration pneumonia with hypoxia -wean oxygen as tolerated Ct Levaquin and Flagyl. Fluid overload- I status post Lasix 1 and wean oxygen support as tolerated. Anemia, acute on chronic Metamyelocytes, myelocytes, nucleated RBCs, and enlarged platelets on CBC with diff Large part due to malnutrition, PEG tube placement failure reduced p.o. intake significantly over the last 3 months s/p 2 units of packed red blood cells previously Hemoglobin appears to drop again at 6.9 improved status post 2 units of packed red blood cells 02/21. Appreciate hematology consult Sinus tachycardiaresolved, previously likely due to hypovolemia and anemia Begin metoprolol 12.5 mg twice daily, hold for systolic pressures less than 105 Earwax impaction Recurrent by her history Affecting right ear, continue twice daily Debrox Hypomagnesemia Resolved Adjustment disorder with depression Lexapro, status post evaluation with psychiatry Malnutrition VITAL 1.5 at 65 mL/h for 22 hours hold for Synthroid per dietary consultation. Will need to determine if home health care is able to arrange for continuous pump versus evaluate for bolus feeds. Appreciate palliative care consultation and discussed with patient short-term and long-term goals. For discharge planning to halfway facility DVT prophylaxis SCDs Discharge Planning: SNF.
[2018-02-22] MEDS ORDERED: fentaNYL 10 mcg/mL Premix Drip 2,500 MCG/250 ML BAG IV.SIG PRN (18:28)
[2018-02-22] MEDS: MethylPREDNISolone Sod Succinate Inj 125 MG/2 ML Vial IV.PUSH SCH (18:40)
[2018-02-22] MEDS: Midazolam 50 MG/50 ML Inj 50 MG/50 ML BAG IV.CONT PRN (18:46)
--- NOTE | 2018-02-22 18:47 | P.PCN ---
Date of procedure: 02/22/18 Pre-op diagnosis: acute hypoxemic respiratory failure Post-op diagnosis: same Procedure: DATE: 02/22/2018 PROCEDURE: Orotracheal intubation INDICATION: Acute hypoxemic respiratory failure DETAILS OF PROCEDURE The patient was placed in optimal position and preoxygenated with 100% FiO2 via bag valve mask. At the start oxygen saturation was 35%. The patient was administered 20 milligrams etomidate IV. I entered the oropharynx with a size 4 laryngoscope blade and obtained a grade 2 view of the airway. On single attempt a size 8.0 cuffed endotracheal tube was passed through the vocal cords. Correct tube location was confirmed with end tidal CO2 detector and by auscultating over bilateral lung cabello. The endotracheal tube was secured with adhesive tape at a depth of 23 cm at the lips. The patient was connected to the ventilator. The patient tolerated the procedure well without any apparent complications. Oxygen saturations were maintained greater than 25% all times. STAT chest x-ray revealed adequate positioning of ET tube.
[2018-02-22 18:58] LABS: Hematocrit 31.2 % (35.0-46.0); Hemoglobin 10.5 gm/dL (11.6-15.3); Mean Corpuscular HGB Conc 33.6 % (32.0-36.0); Mean Corpuscular Hemoglobin 31.5 pg (27.0-34.0); Mean Corpuscular Volume 93.7 fL (80.0-100.0); Platelet Count 408 th/mm3 (150-450); Red Blood Count 3.33 mil/mm3 (4.00-5.30); Red Cell Distribution Width 19.4 % (11.6-17.2)
--- NOTE | 2018-02-22 19:21 | XR ---
EXAM DATE: 02/22/2018 6:52 PM EDT AGE/SEX: 72 years / Female INDICATIONS: Post intubation. CLINICAL DATA: This is the patient's subsequent encounter. Patient reports that signs and symptoms h ave been present for 4 - 6 days and indicates a pain score of Nonresponsive. MEDICAL/SURGICAL HISTORY: . Chronic obstructive pulmonary disease. Hypothyroidism. Gastroesopha geal reflux disease. Throat cancer. . . Cholecystectomy. Appendectomy. Hernia repair. [place] [facility] [place]. . FINDINGS: Endotracheal tube in good position. Bilateral mostly basilar airspace disease and probable trace pleu ral fluid. No pneumothorax. Heart size upper limits normal. CONCLUSION: Intubation with endotracheal tube in good position. Electronically signed by: Alireza Leger MD 02/22/2018 7:19 PM EDT
[2018-02-22 19:28] LABS: Albumin 2.1 g/dL (3.4-5.0); Calcium 7.9 mg/dL (8.5-10.1); Carbon Dioxide 26.4 meq/L (21.0-32.0); Potassium 4.2 meq/L (3.5-5.1)
[2018-02-22 19:31] LABS: Total Protein 5.7 g/dL (6.4-8.2)
[2018-02-22 19:38] LABS: ABG Base Excess 2.9 mmol/L (-2-2); ABG PCO2 49 mmHg (38-42); ABG PO2 319 mmHG (61-120)
--- NOTE | 2018-02-22 19:41 | P.CONCC ---
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 Hooper and Dr. Pineda with followup imaging negative for residual disease (05/2015, 09/2015). She was originally admitted to [facility] hospitalist service on 02/11/18 after she presented complaining of generalized weakness, anemia with hemoglobin of 6.3, dysphagia. She had a history of esophageal stricture that was dilated in June [address] Aly. She previously had G/J tube that became dislodged in May. She was lost to oncology followup for the last couple of years and had been having progressive difficulty with swallowing and cachexia. Modified barium swallow confirmed aspiration and she has undergone laparoscopic GJ placement 09/[address] Kraus. She has been n.p.o. and receiving continuous jejunal tube feeds. [facility] and patient's sats were in 30s. Dr. Yates [facility] and int[facility]ated patient with 8.0 ETT by Glidescope. Some foreign material was suctioned from supraglottic area and patient has significant secretions suctioned from lower airways concerning for aspiration. Post-intubation, she has hypotension with MAP 55-60. Review of Systems unobtainable due to endotracheal tube PMFSH - History History Provided By: Patient, Medical Record - Medical / Surgical Hx Neg / Unobtainable Medical Problems Denied: Unable to Obtain (Reviewed EMR :Supraglottic Squamous Cell CA of the larynx s/p radiation and chemotherapy) - Medical History Medical History: Medical History (Last Updated 02/20/18 @ 11:39 by CHANEL Thorpe) Arthritis Barretts esophagus GERD (gastroesophageal reflux disease) Hypothyroidism 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 - Surgical History Surgical History: Surgical History (Last Reviewed 02/22/18 @ 20:07 by Vita Ballesteros MD) History of cholecystectomy History of esophagogastroduodenoscopy (EGD) History of hernia repair History of tonsillectomy and adenoidectomy - Family History Family History: Family History (Last Updated 02/20/18 @ 11:41 by CHANEL Thorpe) Mother Breast cancer Father Heart problem - Tobacco History Tobacco Use In Past 30 Days: Yes (Quit in 2014; restarted 6 months ago and quit in recent weeks) Smoking Status: Former smoker Tobacco Type: Cigarettes years: 30 - Alcohol History How Often Do You Have a Drink Containing Alcohol: 2 to 3 times a week - Substance Use History Substance History: No History of Abuse Medications and Allergies Active Medications: Active Medications Acetaminophen (Tylenol Liq) 650 mg PO Q6H PRN PRN Reason: FEVER Albuterol (Duoneb Neb ([place])) 1 ampul NEB Q4HR NEB EUGENIA Albuterol (Albuterol Neb (Prn)) 2.5 mg NEB Q2HR NEB PRN PRN Reason: DYSPNEA Artificial Tears (Tears Naturale Opth Drops) 1 drop EACH EYE Q8H [facility] Carbamide Peroxide (Debrox 6.5% Otic Drops) 5 drops RIGHT EAR Q12HR [facility] Last Admin: 02/22/18 09:18 Dose: 5 drops Cetirizine HCl (Zyrtec) 10 mg PO DAILY [facility] Last Admin: 02/22/18 09:13 Dose: 10 mg Chlorhexidine Gluconate (Peridex 0.12% Oral Kit) 15 ml OROPHARYNG BID@0800, 2000 [facility] Escitalopram Oxalate (Lexapro) 20 mg J-TUBE DAILY [facility] Last Admin: 02/22/18 09:13 Dose: 20 mg Levofloxacin/Dextrose (Levaquin 750 Mg Premix Inj) 150 mls @ 100 mls/hr IV.SIG Q24H [facility] Last Infusion: 02/22/18 10:15 Dose: Infused Midazolam HCl (Versed Inj) 50 mg in 50 mls @ 2 mls/hr IV.CONT TITRATE PRN; Protocol PRN Reason: Per Protocol Last Admin: 02/22/18 18:46 Dose: 2 mg/hr, 2 mls/hr Fentanyl (Fentanyl 10 Mcg/Ml Premix Drip) 2,500 mcg in 250 mls @ 5 mls/hr IV.SIG TITRATE PRN; Protocol PRN Reason: Per Protocol Last Admin: 02/22/18 18:46 Dose: 50 mcg/hr, 5 mls/hr Lactated Ringer's (Lr 1000 Ml Inj) 1,000 mls @ 84 mls/hr IV.SIG .[id number] [facility] Last Admin: 02/22/18 12:17 Dose: 84 mls/hr Lansoprazole (Prevacid Solutab) 15 mg G-TUBE DAILY [facility] Last Admin: 02/22/18 09:13 Dose: 15 mg Levothyroxine Sodium (Synthroid) 100 mcg PO DAILY@0600 [facility] Last Admin: 02/22/18 06:24 Dose: 100 mcg Methylprednisolone Sodium Succinate (Solumedrol Inj) 60 mg IV.PUSH Q6HR [facility] Last Admin: 02/22/18 18:40 Dose: 60 mg Metoprolol Tartrate (Lopressor) 12.5 mg PO BID [facility] Last Admin: 02/22/18 09:14 Dose: Not Given Metronidazole (Flagyl) 500 mg G-TUBE Q8HR [facility] Last Admin: 02/22/18 13:02 Dose: 500 mg Miscellaneous (Pill Splitter) 1 each OTHER UNSCH [facility] Morphine Sulfate (Morphine Inj) 2 mg IV.PUSH Q3H PRN PRN Reason: PAIN>4 Naloxone HCl (Narcan Inj) 0.4 mg IV.PUSH UNSCH PRN PRN Reason: SEE LABEL COMMENTS Nitroglycerin (Nitrostat Sl) 0.4 mg SL Q5M PRN PRN Reason: CHEST PAIN Pantoprazole Sodium (Protonix) 20 mg PO DAILY [facility] Last Admin: 02/16/18 09:13 Dose: 20 mg Prochlorperazine Edisylate (Compazine Inj) 5 mg IV.PUSH Q4H PRN PRN Reason: NAUSEA OR VOMITING Last Admin: 02/17/18 17:37 Dose: 5 mg Sodium Chloride (Sodium Chloride 3% Neb) 2 ml NEB Q4HR NEB [facility] Stop: 02/27/18 19:59 Sodium Chloride (Ns Flush) 2 ml IV.FLUSH UNSCH PRN PRN Reason: FLUSH AFTER USING IV ACCESS Sodium Chloride (Ns Flush) 2 ml IV.FLUSH BID [facility] Last Admin: 02/22/18 09:15 Dose: 2 ml Sterile Water (Free Water) 100 ml J-TUBE Q6HR [facility] Last Admin: 02/22/18 17:05 Dose: 100 ml Allergies Allergy/AdvReac Type Severity Reaction Status Date / Time epinephrine Allergy Severe TACHYCARDIA Verified 02/21/18 08:40 penicillin G Allergy Severe Hives Verified 02/21/18 08:40 peanut Allergy Intermediate ANAPHYLAXIS Verified 02/21/18 08:40 SOY Allergy Severe ANAPHYLAXIS Uncoded 05/15/16 12:23 COOKED LEGUMES Allergy Intermediate ANAPHYLAXIS Uncoded 06/07/14 07:25 Home Medications Medication Instructions Recorded Confirmed Type cetirizine 10 mg PO DAILY 02/15/18 02/15/18 History escitalopram oxalate 20 mg PO DAILY 02/15/18 02/15/18 History levothyroxine 100 mcg PO DAILY 02/15/18 02/15/18 History omeprazole 20 mg PO DAILY 02/15/18 02/15/18 History Physical Exam Vital signs: Vital Signs 02/21/18 19:55 02/21/18 20:00 02/21/18 20:27 Temperature 97.9 F 97.9 F 97.9 F Pulse Rate 66 64 66 Respiratory Rate 18 18 18 Blood Pressure 113/55 L 113/55 L 113/55 L Pulse Oximetry 96 96 96 02/21/18 20:43 02/21/18 20:47 02/21/18 23:44 Temperature 97.9 F 97.9 F 98.2 F Pulse Rate 66 66 65 Respiratory Rate 20 20 18 Blood Pressure 103/45 L 103/45 L 102/60 Pulse Oximetry 98 02/22/18 00:00 02/22/18 00:10 02/22/18 00:31 Temperature 98.2 F Pulse Rate 65 79 Respiratory Rate 18 20 Blood Pressure 102/60 Pulse Oximetry 97 02/22/18 03:55 02/22/18 04:00 02/22/18 07:40 Temperature 97.4 F L Pulse Rate 63 71 75 Respiratory Rate 19 Blood Pressure 120/55 L Pulse Oximetry 93 L 02/22/18 11:30 02/22/18 12:00 02/22/18 12:33 Temperature 97.6 F Pulse Rate 67 81 Respiratory Rate 16 Blood Pressure 117/58 L Pulse Oximetry 92 L 92 L 02/22/18 14:56 02/22/18 16:43 02/22/18 16:54 Temperature 97.9 F Pulse Rate 78 73 Respiratory Rate 19 Blood Pressure 119/60 Pulse Oximetry 93 L 93 L Intake & Output 02/22/18 02/22/18 02/23/18 06:59 18:59 06:59 Intake Total 1800 / 1800 1096 / 1096 Output Total 5 / 5 Balance 1800 / 1800 1091 / 1091 Weight 63.2 kg Intake: IV 1000 / 1000 400 / 400 LR 1000 mL Inj 1,000 ML @ 84 1000 / 1000 mls/hr IV.SIG .[id number] EUGENIA Rx#: [id number] Levaquin 750 mg Premix Inj 150 150 / 150 ML @ 100 mls/hr IV.SIG Q24H EUGENIA Rx#:[id number] Tube Feeding 696 / 696 Intake (Blood Product) Amt 800 / 800 Rbc As-3 Leukoreduced Unit 400 / 400 [id number] Rbc As-3 Leukoreduced Unit 400 / 400 [id number] Output: Urine 5 / 5 Other: # Voids 10 Date of Last Bowel Movement 02/21/18 02/21/18 # Bowel Movements 1 Narrative: GENERAL: Under nourished, frail, elderly female who is now orotracheally intubated. SKIN: Warm and dry. HEAD: Atraumatic. Normocephalic. EYES: Pupils equal and round, pinpoint bilaterally.. No scleral icterus. No injection or drainage. ENT: No nasal bleeding or discharge. Mucous membranes pink and moist. NECK: Trachea midline. No JVD. CARDIOVASCULAR: Regular rate and rhythm. No murmurs rubs or gallops. RESPIRATORY: Orotracheally intubated, rhonchorous breath sounds bilaterally. GASTROINTESTINAL: Abdomen soft, non-tender, nondistended. NGT in place to LIWS with bilious aspirate. G-J tube in place, site benign appearing. MUSCULOSKELETAL: Extremities without clubbing, cyanosis. There is bilateral pedal edema, trace, though left leg with increased calf edema relative to the right. No palpable cords or erythema. NEUROLOGICAL: Awake and alert, on vent, makes eye contact and attempts to mouth words. Follows commands with hand squeeze and with moving bilateral lower extremities. Strength appears symmetric. - Urinary Catheter Management Indwelling Urethral Catheter Cath placed during this visit: yes Reason for continuing: Hourly intake/output Insertion date: 02/22/18 Insertion time: 20:00 Assessment and Plan - Problem List (1) Aspiration pneumonia Code(s): J69.0 - Pneumonitis due to inhalation of food and vomit Status: Acute (2) Acute respiratory failure Code(s): J96.00 - Acute respiratory failure, unspecified whether with hypoxia or hypercapnia Status: Acute (3) Septic shock Code(s): A41.9 - Sepsis, unspecified organism; R65.21 - Severe sepsis with septic shock Status: Acute (4) Dysphagia causing pulmonary aspiration with swallowing Code(s): R13.19 - Other dysphagia Status: Chronic (5) Esophageal stricture Code(s): K22.2 - Esophageal obstruction Status: Acute (6) Hypothyroidism Code(s): E03.9 - Hypothyroidism, unspecified Status: Chronic (7) Protein-calorie malnutrition, severe Code(s): E43 - Unspecified severe protein-calorie malnutrition Status: Chronic (8) Debility, unspecified Code(s): R53.81 - Other malaise Status: Chronic (9) BETSEY (acute kidney injury) Code(s): N17.9 - Acute kidney failure, unspecified Status: Acute (10) CKD (chronic kidney disease) stage 3, GFR 30-59 ml/min Code(s): N18.3 - Chronic kidney disease, stage 3 (moderate) Status: Chronic - Assessment and Plan Plan: NEURO: Fentanyl for analgosedation. Versed prn for sedation. D/c versed drip Daily sedation vacation RESP: Acute respiratory failure Aspiration pneumonia Ventilator bundle. DuoNeb every 4 hours. Albuterol every 2 hours as needed. Continue Solu-Medrol 60 mg IV every 6 hours. Chest x-ray bibasilar opacities. ETT position satisfactory. Antibiotics as per below. CV: Septic shock (Hypotension secondary to distributive shock from sepsis/SIRS due to aspiration) Given LR bolus 2 L. Levophed to maintain mean arterial pressure greater than 65. No prior Echo, will obtain. Troponin 0 0.06, will trend. Hold metoprolol due to the planning of the lead ago I mean he check with me in 10 -year-old male who I think I said it was okay I do not know I probably I think because hypotension. GI: Dysphagia Esophageal stricture Now status post G/J Severe chronic protein energy malnutrition. OG tube to low intermittent wall suction. Continue vital 1.5 at 65 mL/h via jejunostomy for nutrition recommendations. GI following, plan for outpatient esophageal dilation. FEN/RENAL: BETSEY overlying CKD Stage III [address]. Monitor intake and output every hour.. Monitor electrolytes. Replace electrolytes as indicated per ICU electrolyte replacement protocol. ID: Aspiration pneumonia Septic shock Started on Levaquin and p.o. Flagyl on 02/20. Has decompensated despite these and is now hypotensive. Send blood and urine cultures.. Has penicillin allergy. Place on aztreonam, change flagyl to IV for now. HEME: Supraglottic laryngeal cancer status post radiation and chemo therapy Follow-up imaging previously demonstrated no residual disease. Supraglottic foreign material was noted upon intubation. Will obtain CT chest and neck to evaluate for evidence of recurrence on imaging. Has been followed by Dr. Pineda. ENDO: Hypothyroidism Continue Synthroid 100 mcg via tube. daily Acute stress hyperglycemia Monitor bedside glucose every 6 hours initiate low-dose insulin sliding scale as indicated. PROPH: SCDs/heparin subcu for DVT prophylaxis. Lansoprazole for stress ulcer prophylaxis. ACCESS: Left IJ central venous line placement 02/23/18 Patient is critically ill with post intubation hypotension requiring fluid resuscitation and vasopressors to prevent further deterioration and . Full code. Critical care time 55 minutes exclusive of separately billable procedures. (2) Acute respiratory failure Qualifiers: Respiratory failure complication: hypoxia Qualified Code(s): J96.01 - Acute respiratory failure with hypoxia
[2018-02-22] MEDS ORDERED: Chlorhexidine Gluconate 2% 1 Pack (2 Cloths) TOPICAL PRN (21:00)
[2018-02-22] MEDS: Chlorhexidine 0.12% Oral Kit 15 ML UDC OROPHARYNG SCH (21:09)
[2018-02-22] MEDS: Artificial Tears Opth Drops 15 ML Bottle EACH EYE SCH (21:09)
--- NOTE | 2018-02-22 23:06 | ECG ---
Date Performed: 02/22/2018 Time Performed: 20:20:48 PTAGE: 72 years EKG: Sinus rhythm LEFT ANTERIOR FASCICULAR BLOCK SEPTAL MYOCARDIAL INFARCTION , OF INDETERMINATE AGE ABNORMAL ECG PREVIOUS TRACING : 02/15/2018 04.54 Compared to previous tracing, heart rate has decreased. DOCTOR: Benny Almonte Interpretating Date/Time 02/22/2018 23:04:01
[2018-02-22] MEDS: Aztreonam Inj 2 GM in Sodium Chloride 0.9% Inj 100 ML IV.SIG SCH (23:12)
[2018-02-23] MEDS: Oral Hygiene Kit OROPHARYNG SCH ×4 (00:37→17:05)
[2018-02-23] MEDS: [UNRECOGNIZED DRUG - SUPPLY] OROPHARYNG SCH ×4 (00:37→17:06)
[2018-02-23] MEDS: MethylPREDNISolone Sod Succinate Inj 125 MG/2 ML Vial IV.PUSH SCH ×4 (01:00→17:16)
[2018-02-23] MEDS: Chlorhexidine Gluconate 2% 1 Pack (2 Cloths) TOPICAL SCH (03:44)
[2018-02-23] MEDS: Artificial Tears Opth Drops 15 ML Bottle EACH EYE SCH ×3 (03:44→18:28)
[2018-02-23] MEDS: Midazolam 50 MG/50 ML Inj 50 MG/50 ML BAG IV.CONT PRN (03:45)
--- NOTE | 2018-02-23 03:55 | XR ---
EXAM DATE: 02/23/2018 3:39 AM EDT AGE/SEX: 72 years / Female INDICATIONS: Respiratory failure. CLINICAL DATA: This is the patient's subsequent encounter. Patient reports that signs and symptoms h ave been present for 4 - 6 days and indicates a pain score of Nonresponsive. MEDICAL/SURGICAL HISTORY: None. None. COMPARISON: [facility] – [place]ST 1V SINGLE AP, 02/22/2018. . FINDINGS: Single AP view of the chest. Endotracheal tube remains in place with the tip 2 cm above the lashay. N asogastric tube is now in place with the tip not visualized as it is below the [id number] of the s tudy. Mild bilateral hazy lower lung zone pulmonary opacity unchanged. Small left pleural effusion. N o evidence of pneumothorax. CONCLUSION: 1. Nasogastric tube now in place with tip below the [id number] of the radiograph. 2. No change in mild bilateral pulmonary opacity and small left pleural effusion. Electronically signed by: Jarad Orr MD 02/23/2018 3:54 AM EDT
[2018-02-23] MEDS: Aztreonam Inj 2 GM in Sodium Chloride 0.9% Inj 100 ML IV.SIG SCH ×3 (05:19→21:44)
[2018-02-23] MEDS: Levothyroxine 100 MCG Tablet PO SCH (05:19)
[2018-02-23 06:07] LABS: Baso % (Auto) 0.3 % (0.0-2.0); Eos % (Auto) 0.1 % (0.0-4.0); Hematocrit 28.6 % (35.0-46.0); Hemoglobin 9.7 gm/dL (11.6-15.3); Lymph # (Auto) 0.8 th/mm3 (1.0-4.8); Lymph % (Auto) 8.8 % (9.0-44.0); Mean Corpuscular HGB Conc 33.8 % (32.0-36.0); Mean Corpuscular Hemoglobin 31.1 pg (27.0-34.0); Mean Corpuscular Volume 91.9 fL (80.0-100.0); Mean Platelet Volume 10.2 fL (7.0-11.0); Mono # (Auto) 0.1 th/mm3 (0.0-0.9); Mono % (Auto) 1.1 % (0.0-8.0); Neut # (Auto) 8.2 th/mm3 (1.8-7.7); Neut % (Auto) 89.7 % (16.0-70.0); Platelet Count 433 th/mm3 (150-450); Red Blood Count 3.11 mil/mm3 (4.00-5.30); Red Cell Distribution Width 19.1 % (11.6-17.2); White Blood Count 9.2 th/mm3 (4.0-11.0)
--- NOTE | 2018-02-23 06:07 | P.PCN ---
Date of procedure: 02/23/18 Pre-op diagnosis: Acute respiratory failure, septic shock Post-op diagnosis: same Procedure: DATE: 02/23/18 CENTRAL LINE PLACEMENT: Left internal jugular vein. INDICATION: Central venous access CONSENT Informed consent for procedure was obtained after discussion of risks, benefits , alternatives. DESCRIPTION OF THE PROCEDURE The patient was placed in supine position, mild Trendelenburg. The skin was cleansed with Chloraprep x3. Additional barrier precautions included large sterile drape, sterile gloves, sterile gown, face mask, and hat. 1 % lidocaine was used for local anesthesia. Under direct ultrasound guidance and on single attempt, the vein was accessed with an introducer needle. The guide wire was advanced and confirmed to be intravenous by U/s. The tract was dilated. Using Seldinger technique a 7 Persian 20 cm antimicrobial coated triple-lumen catheter was advanced to a depth of 18 centimeters. The guide wire was removed. All ports had good return of dark venous blood and flushed easily with saline. The central line was secured with 2.0 silk after Stat-lock placement attempted x2 and unable to secure adequately with this method. . A sterile dressing with antibiotic disc was applied. ESTIMATED BLOOD LOSS: Minimal COMPLICATIONS: No apparent complications. STAT chest x-ray is pending. Anesthesia: local
[2018-02-23 06:37] LABS: Calcium 8.1 mg/dL (8.5-10.1); Carbon Dioxide 24.6 meq/L (21.0-32.0); Magnesium 1.4 mg/dL (1.5-2.5); Phosphorus 3.6 mg/dL (2.5-4.9); Potassium 4.1 meq/L (3.5-5.1); Thyroid Stimulating Hormone 3.73 uIU/mL (0.358-3.740)
--- NOTE | 2018-02-23 06:41 | XR ---
EXAM DATE: 02/23/2018 6:29 AM EDT AGE/SEX: 72 years / Female INDICATIONS: Central line placement. CLINICAL DATA: This is the patient's subsequent encounter. Patient reports that signs and symptoms h ave been present for 4 - 6 days and indicates a pain score of Nonresponsive. MEDICAL/SURGICAL HISTORY: None. None. COMPARISON: [facility] [place] 1V SINGLE AP, 02/23/2018. . FINDINGS: Single AP view of the chest. Endotracheal tube remains in place. Nasogastric tube is no longer seen. Left IJ central venous catheter is now seen with the tip in the distal SVC. No evidence of pneumothor ax. Skinfold noted in the left upper lung zone. Bilateral lower lung zone opacity left greater than r ight unchanged. CONCLUSION: 1. Left IJ central venous catheter now in place. No evidence of pneumothorax. 2. No change in left greater than right lung base opacity. Electronically signed by: Jarad Orr MD 02/23/2018 6:40 AM EDT
[2018-02-23] MEDS ORDERED: Dextrose 50% in Water 50 ML Vial IV.PUSH PRN (07:51)
[2018-02-23] MEDS: Chlorhexidine 0.12% Oral Kit 15 ML UDC OROPHARYNG SCH ×3 (08:56→21:45)
[2018-02-23] MEDS: Carbamide Peroxide 6.5% Otic Drops 15 ML Bottle RIGHT EAR SCH ×2 (08:57→21:50)
[2018-02-23] MEDS: Metoprolol Tartrate 25 MG Tablet PO SCH (08:57)
[2018-02-23] MEDS: Lansoprazole ODT 15 MG Tablet G-TUBE SCH (08:57)
[2018-02-23] MEDS ORDERED: Potassium Phosphate 500 MG Soluble Tablet PO PRN ×2 (09:21)
[2018-02-23] MEDS ORDERED: Magnesium Oxide 400 MG Tablet PO PRN (09:21)
[2018-02-23] MEDS ORDERED: Potassium Chloride 25 MEQ Effervescent Tablet PO PRN (09:21)
[2018-02-23] MEDS ORDERED: Potassium Chlor 40 mEq Premix 40 MEQ/100 ML PIGGYBACK IV.SIG PRN ×2 (09:21)
[2018-02-23] MEDS ORDERED: Potassium Phosphate Inj 30 MMOL in Sodium Chlor 0.9% Inj 250 ML IV.SIG PRN (09:21)
[2018-02-23] MEDS ORDERED: Potassium Chlor 20 mEq Premix 20 MEQ/100 ML PIGGYBACK IV.SIG PRN ×2 (09:21)
[2018-02-23] MEDS ORDERED: Magnesium Sulfate Inj 4 GM in Sodium Chlor 0.9% Inj 92 ML IV.SIG PRN (09:21)
[2018-02-23] MEDS ORDERED: Magnesium Sulfate Inj 2 GM in Sodium Chlor 0.9% Inj 96 ML IV.SIG PRN (09:21)
[2018-02-23] MEDS ORDERED: Sodium Phosphate Inj 30 MMOL in Sodium Chlor 0.9% Inj 250 ML IV.SIG PRN (09:21)
--- NOTE | 2018-02-23 09:35 | P.PNCC ---
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 Hooper and Dr. Pineda with followup imaging negative for residual disease (05/2015, 09/2015). She was originally admitted to [facility] hospitalist service on 02/11/18 after she presented complaining of generalized weakness, anemia with hemoglobin of 6.3, dysphagia. She had a history of esophageal stricture that was dilated in June [address] Aly. She previously had G/J tube that became dislodged in May. She was lost to oncology followup for the last couple of years and had been having progressive difficulty with swallowing and cachexia. Modified barium swallow confirmed aspiration and she has undergone laparoscopic GJ placement 09/[address] Kraus. She has been n.p.o. and receiving continuous jejunal tube feeds. This [facility], [facility] just before 6 pm for respiratory distress and patient's sats were in 30s. Dr. Yates responded to [facility] and intubated patient with 8.0 ETT by Glidescope. Some foreign material was suctioned from supraglottic area and patient has significant secretions suctioned from lower airways concerning for aspiration. Post-intubation, she has hypotension with MAP 55-60. 7/8 Patient is intubated and sedated with Fentanyl infusion. On Levophed 3 mics. Lactic acid 1.4. Objective Vital Signs / I&O: Vital Signs 02/22/18 11:30 02/22/18 12:00 02/22/18 12:33 Temperature 97.6 F Pulse Rate 67 81 Respiratory Rate 16 Blood Pressure 117/58 L Pulse Oximetry 92 L 92 L 02/22/18 14:56 02/22/18 16:43 02/22/18 16:54 Temperature 97.9 F Pulse Rate 78 73 Respiratory Rate 19 Blood Pressure 119/60 Pulse Oximetry 93 L 93 L 02/22/18 18:00 02/22/18 18:08 02/22/18 18:13 Temperature 96.6 F L Pulse Rate 84 90 110 H Respiratory Rate Blood Pressure 142/70 H 146/78 H 148/65 H Pulse Oximetry 31 L 59 L 98 02/22/18 20:00 02/22/18 20:20 02/22/18 23:47 Temperature 98.2 F Pulse Rate 80 Respiratory Rate 16 24 16 Blood Pressure 87/48 L Pulse Oximetry 100 100 99 02/23/18 00:00 02/23/18 04:00 02/23/18 04:01 Temperature 98.1 F 96.5 F L Pulse Rate 66 56 L Respiratory Rate 17 16 16 Blood Pressure 86/49 L 98/53 L Pulse Oximetry 98 100 100 02/23/18 07:31 02/23/18 07:34 Temperature Pulse Rate 62 Respiratory Rate 16 16 Blood Pressure Pulse Oximetry 98 Intake & Output 02/22/18 02/23/18 02/23/18 18:59 06:59 18:59 Intake Total 1096 / 1096 2450 / 2450 Output Total 5 / 5 895 / 895 Balance 1091 / 1091 1555 / 1555 Weight 64.5 kg Intake: IV 400 / 400 2450 / 2450 Versed Inj 50 mg In 50 ml @ 2 50 / 50 MG/HR 2 mls/hr IV.CONT TITRATE PRN Rx#:[id number] Azactam Inj 2 GM In NS Inj 100 200 / 200 ML @ 200 mls/hr IV.SIG Q8H ANN Rx#:[id number] LR 1000 mL Inj 1,000 ML @ 84 2000 / 2000 mls/hr IV.SIG .[id number] ANN Rx#: [id number] Levaquin 750 mg Premix Inj 150 150 / 150 ML @ 100 mls/hr IV.SIG Q24H ANN Rx#:[id number] Flagyl 500 MG Inj 100 ML @ 100 200 / 200 mls/hr IV.SIG Q8H ANN Rx#: [id number] Tube Feeding 696 / 696 Output: Urine 5 / 5 Urine Amount (Catheter) 595 / 595 Indwelling Urethral Catheter 595 / 595 Gastric Drainage 300 / 300 Orogastric Tube 300 / 300 Other: Date of Last Bowel Movement 02/21/18 02/21/18 # Bowel Movements 1 Result Diagrams: 02/23/18 05:32 02/23/18 05:32 Other Results: Laboratory Results - last 12 hr 02/22/18 02/22/18 02/22/18 18:49 18:49 19:45 WBC RBC Hgb Hct MCV MCH MCHC RDW Plt Count MPV Prelim Diff (Auto) Neut % (Auto) Lymph % (Auto) Guthrie % (Auto) Eos % (Auto) Baso % (Auto) Neut # (Auto) Lymph # (Auto) Guthrie # (Auto) Eos # (Auto) Baso # (Auto) Differential Comment Sodium Potassium Chloride Carbon Dioxide Anion Gap BUN Creatinine Estimated GFR Random Glucose Lactic Acid Calcium Phosphorus Magnesium Ammonia Total Creatine Kinase 29 Troponin I 0.06 H TSH Nasal Screen MRSA (PCR) Mrsa detected 02/22/18 02/23/18 02/23/18 21:43 05:32 05:32 WBC 9.2 RBC 3.11 L Hgb 9.7 L Hct 28.6 L MCV 91.9 MCH 31.1 MCHC 33.8 RDW 19.1 H Plt Count 433 MPV 10.2 Prelim Diff (Auto) Slide review pending Neut % (Auto) 89.7 H Lymph % (Auto) 8.8 L Guthrie % (Auto) 1.1 Eos % (Auto) 0.1 Baso % (Auto) 0.3 Neut # (Auto) 8.2 H Lymph # (Auto) 0.8 L Guthrie # (Auto) 0.1 Eos # (Auto) 0.0 Baso # (Auto) 0.0 Differential Comment . Sodium Potassium Chloride Carbon Dioxide Anion Gap BUN Creatinine Estimated GFR Random Glucose Lactic Acid 1.4 Calcium Phosphorus Magnesium Ammonia 17 Total Creatine Kinase Troponin I TSH Nasal Screen MRSA (PCR) 02/23/18 05:32 WBC RBC Hgb Hct MCV MCH MCHC RDW Plt Count MPV Prelim Diff (Auto) Neut % (Auto) Lymph % (Auto) Guthrie % (Auto) Eos % (Auto) Baso % (Auto) Neut # (Auto) Lymph # (Auto) Guthrie # (Auto) Eos # (Auto) Baso # (Auto) Differential Comment Sodium 136 Potassium 4.1 Chloride 98 Carbon Dioxide 24.6 Anion Gap 13 BUN 38 H Creatinine 1.45 H Estimated GFR 36 L Random Glucose 238 H D Lactic Acid Calcium 8.1 L Phosphorus 3.6 Magnesium 1.4 L Ammonia Total Creatine Kinase Troponin I TSH 3.730 Nasal Screen MRSA (PCR) Imaging: Chest X-Ray 02/23/18 06:03 CONCLUSION: 1. Left IJ central venous catheter now in place. No evidence of pneumothorax. 2. No change in left greater than right lung base opacity. Objective Remarks: GENERAL: Patient is 72 yo intubated and sedated SKIN: Warm and dry. HEAD: Normocephalic. EYES: No scleral icterus. No injection or drainage. NECK: Supple, trachea midline. No JVD or lymphadenopathy. CARDIOVASCULAR: Regular rate and rhythm without murmurs, gallops, or rubs. RESPIRATORY: Breath sounds equal bilaterally. No accessory muscle use. GASTROINTESTINAL: Abdomen soft, non-tender, nondistended. MUSCULOSKELETAL: No cyanosis, or edema. BACK: Nontender without obvious deformity. No CVA tenderness. Neuro: Sedated, intubated Assessment and Plan - Assessment and Plan Plan: NEURO: Fentanyl infusion for analgosedation. Daily sedation vacation, monitor neuro status. RESP: Acute respiratory failure Aspiration pneumonia Continue with vent support keep sats >92% Ventilator bundle. DuoNeb every 4 hours. Albuterol every 2 hours as needed. Continue Solu-Medrol 60 mg IV every 6 hours. CV: Septic shock (Hypotension secondary to distributive shock from sepsis/SIRS due to aspiration) Given LR bolus 2 L. Wean off Levophed maintain MAP>65mmHg Lactic acid 1.4 Troponin 0 0.06, 2D echo ordered GI: Dysphagia Esophageal stricture Now status post G/J Severe chronic protein energy malnutrition. Continue vital 1.5 at 65 mL/h via jejunostomy for nutrition recommendations. GI following, plan for outpatient esophageal dilation. FEN/RENAL: BETSEY overlying CKD Stage III Cr: 1.45 from 1.17 Monitor renal function, I/O's, electrolyte replacement protocol. On LR @84ml/hr ID: Aspiration pneumonia Septic shock Started on Levaquin and p.o. Flagyl on 02/20. Has decompensated despite these and is now hypotensive. Follow up on blood and urine cultures.. Has penicillin allergy. Continue aztreonam, Flagyl and monitor for signs of infections ( Fever, WBC) HEME: Supraglottic laryngeal cancer status post radiation and chemo therapy Follow-up imaging previously demonstrated no residual disease. Supraglottic foreign material was noted upon intubation. For CT chest and neck to evaluate for evidence of recurrence on imaging. Has been followed by Dr. Pineda. ENDO: Hypothyroidism Continue Synthroid 100 mcg via tube. daily Acute stress hyperglycemia Monitor bedside glucose every 6 hours, low-dose insulin sliding scale for glycemic control PROPH: SCDs/heparin subcu for DVT prophylaxis. Lansoprazole for stress ulcer prophylaxis. Doppler US LE negative for DVT today ACCESS: Left IJ central venous line placement 02/23/18 Palliative care is following Discussed with patient's son Alireza who is a PA with nephrology and critical care and updated him on his condition. CCT 30 mins.
[2018-02-23 10:00] LABS: Acanthocytes 1+; Lymphocytes 9 % (9-44); Monocytes 6 % (0-8); Myelocytes 8 % (0-0); Ovalocytes 1+; Platelet Estimate Normal (Normal)
[2018-02-23 10:01] LABS: Toxic Granulation 1+
--- NOTE | 2018-02-23 10:58 | US ---
EXAM DATE: 02/23/2018 10:55 AM EDT AGE/SEX: 72 years / Female INDICATIONS: Bilateral leg swelling. CLINICAL DATA: This is the patient's initial encounter. Patient reports that signs and symptoms have been present for 4 - 6 days and indicates a pain score of Nonresponsive. MEDICAL/SURGICAL HISTORY: Gastroesophageal reflux disease. Hypothyroidism. Arthritis. barrette s esophagus. Skin cancer. Cholecystectomy. Tonsillectomy. Skin cancer removed. EGD. Hernia repair. Adenoidectomy. COMPARISON: No prior exams available for comparison. TECHNIQUE: Venous ultrasound of both lower extremities was performed from the inguinal ligament to t he proximal calf. Real-time, color Doppler and spectral tracing, compression and augmentation techni ques were used. FINDINGS: Right Leg: Normal compression of the deep venous system from the inguinal region to the proximal john f. No echogenic clot is seen. Normal response of the venous system to augmentation and respiration. Left Leg: Normal compression of the deep venous system from the inguinal region to the proximal calf . No echogenic clot is seen. Normal response of the venous system to augmentation and respiration. Other: None. CONCLUSION: 1. The study is negative for bilateral lower extremity deep venous thrombosis. Electronically signed by: Jose Coley MD 02/23/2018 10:56 AM EDT
[2018-02-23] MEDS: Insulin NovoLOG Aspart Correctional Sugar Inj SQ SCH ×2 (11:24→17:16)
--- NOTE | 2018-02-23 18:52 | ECHRPT ---
Indication: HEART FAILURE CONCLUSIONS Normal left ventricular size. Wall thickness is normal. The left ventricular systolic function is moderately reduced with an estimated ejection fraction of 35%. Anteroseptal hypokinesis. The left atrial size is mildly dilated. The right atrial size is mildly dilated. Mild mitral annular calcification. Trace mitral valve regurgitation. Aortic valve sclerosis is present. [id number] aortic valve regurgitation. There is mild tricuspid valve regurgitation. The estimated pulmonary arterial pressure is 38 mmHg. . Trivial pericardial effusion. A left sided pleural effusion is present. BP: / HR: Rhythm: Sinus MEASUREMENTS (Male / Female) Normal Values Technical Quality:Fair 2D ECHO LV Diastolic Diameter PLAX 7.1 cm 4.2 - 5.9 / 3.9 - 5.3 cm LV Systolic Diameter PLAX 6.1 cm IVS Diastolic Thickness 0.7 cm 0.6 - 1.0 / 0.6 - 0.9 cm LVPW Diastolic Thickness 0.7 cm 0.6 - 1.0 / 0.6 - 0.9 cm LV Relative Wall Thickness 0.2 RV Internal Dim ED PLAX 2.1 cm LVOT Diameter 1.7 cm Aortic Root Diameter 3.0 cm LA Systolic Diameter LX 4.5 cm 3.0 - 4.0 / 2.7 - 3.8 cm M-MODE AV Cusp Separation MM 1.6 cm DOPPLER AV Peak Velocity 187.0 cm/s AV Peak Gradient 14.0 mmHg AV Mean Gradient 6.0 mmHg AV Velocity Time Integral 38.9 cm AI Peak Velocity 358.0 cm/s AI Peak Gradient 51.3 mmHg AI Pressure Half Time 404.0 ms LVOT Peak Velocity 136.0 cm/s LVOT Peak Gradient 7.4 mmHg LVOT Velocity Time Integral 29.7 cm AV Area Cont Eq vti 1.7 cm AV Area Cont Eq pk 1.7 cm Mitral E Point Velocity 112.0 cm/s Mitral A Point Velocity 129.0 cm/s Mitral E to A Ratio 0.9 LV E' Lateral Velocity 10.0 cm/s Mitral E to LV E' Lateral Ratio 11.2 LV E' Septal Velocity 5.3 cm/s Mitral E to LV E' Septal Ratio 21.3 TR Peak Velocity 265.0 cm/s TR Peak Gradient 28.1 mmHg Right Atrial Pressure 10.0 mmHg Pulmonary Artery Systolic Pressu 38.1 mmHg Right Ventricular Systolic Press 38.1 mmHg PV Peak Velocity 72.9 cm/s PV Peak Gradient 2.1 mmHg FINDINGS LEFT VENTRICLE Normal left ventricular size. Wall thickness is normal. The left ventricular systolic function is moderately reduced with an estimated ejection fraction of 35%. There is anteroseptal hypokinesis. RIGHT VENTRICLE Normal right ventricular size and systolic function. LEFT ATRIUM The left atrial size is mildly dilated. RIGHT ATRIUM The right atrial size is mildly dilated. ATRIAL SEPTUM No atrial level shunt is demonstrated by color flow Doppler interrogation. AORTA The aortic root and proximal ascending aorta are normal in size on limited imaging. MITRAL VALVE Mild mitral annular calcification. Trace mitral valve regurgitation. AORTIC VALVE Aortic valve sclerosis is present. [id number] aortic valve regurgitation. TRICUSPID VALVE There is mild tricuspid valve regurgitation. The estimated pulmonary arterial pressure is 38.1 mmHg. PULMONARY VALVE The pulmonary valve is not well visualized. VESSELS The inferior vena cava was not well visualized. PERICARDIUM Trivial pericardial effusion. A left sided pleural effusion is present. Doyle Mathias MD, FACC (Electronically Signed) Final Date:23 February 2018 18:51
--- NOTE | 2018-02-23 21:06 | CT ---
EXAM DATE: 02/23/2018 8:46 PM EDT AGE/SEX: 72 years / Female INDICATIONS: Laryngeal Cancer CLINICAL DATA: This is the patient's initial encounter. Patient reports that signs and symptoms have been present for 1 day and indicates a pain score of Nonresponsive. MEDICAL/SURGICAL HISTORY: Gastroesophageal reflux disease. Carcinoma, skin cancer. Carcinoma, squ amous cell. Barretts esophagus, dysphagia Cholecystectomy. Tonsillectomy. Appendectomy. adenoide ctomy, hernia repair RADIATION DOSE: 13.36 CTDI (mGy) COMPARISON: No prior exams available for comparison. TECHNIQUE: Multiple contiguous axial images were obtained through the chest without contrast. Image s were obtained in suspended respiration using multiple row detector helical technique. Using automa melany exposure control and adjustment of the mA and/or kV according to patient size, radiation dose was kept as low as reasonably achievable to obtain optimal diagnostic quality images. DICOM format imag e data is available electronically for review and comparison. FINDINGS: There is a spiculated 1 cm nodule in the right upper lobe on image #16. There is also small bilateral pleural effusions and dependent atelectasis and consolidation in both lungs. No pneumothorax. Endotr acheal tube is in good position. There is a small pericardial effusion. No acute findings in the upper abdomen. CONCLUSION: 1. Spiculated 1 cm nodule in the right upper lobe suspicious for small malignancy. 2. Small bilateral pleural effusions with dependent atelectasis and consolidation in both lungs. 3. No pathologically enlarged lymph nodes are identified. Moderate coronary calcification. Electronically signed by: Alireza Leger MD 02/23/2018 9:04 PM EDT
--- NOTE | 2018-02-23 21:12 | CT ---
EXAM DATE: 02/23/2018 8:46 PM EDT AGE/SEX: 72 years / Female INDICATIONS: Laryngeal Cancer CLINICAL DATA: This is the patient's initial encounter. Patient reports that signs and symptoms have been present for 1 week and indicates a pain score of 4/10. MEDICAL/SURGICAL HISTORY: Gastroesophageal reflux disease. Carcinoma, skin cancer. Carcinoma, squ amous cell. Barretts esophagus, dysphagia Appendectomy. Cholecystectomy. Tonsillectomy. adenoide ctomy RADIATION DOSE: 16.63 CTDI (mGy) COMPARISON: No prior exams available for comparison. TECHNIQUE: Helical acquisition was performed using a multirow detector CT scanner without contrast. Using automated exposure control and adjustment of the mA and/or kV according to patient size, radiat ion dose was kept as low as reasonably achievable to obtain optimal diagnostic quality images. DICOM format image data is available electronically for review and comparison. FINDINGS: Patient is intubated and left IJ central line is present. There is reportedly history of laryngeal ca ncer. This area is mostly obscured by the endotracheal tube. There is advanced degenerative disc dise ase in the lower cervical spine. AP canal and bilateral foraminal stenosis present at C5-6-7. No pathologically enlarged lymph nodes are identified within the neck. CONCLUSION: 1. Patient intubated. No adenopathy or abnormal fluid collections are seen in the neck. Lung apices are clear except for some scarring. Left central line in internal jugular vein. Electronically signed by: Alireza Leger MD 02/23/2018 9:10 PM EDT
[2018-02-24] MEDS: MethylPREDNISolone Sod Succinate Inj 125 MG/2 ML Vial IV.PUSH SCH ×4 (00:46→18:41)
[2018-02-24] MEDS: [UNRECOGNIZED DRUG - SUPPLY] OROPHARYNG SCH ×4 (00:47→16:41)
[2018-02-24] MEDS: Artificial Tears Opth Drops 15 ML Bottle EACH EYE SCH ×3 (04:26→21:47)
[2018-02-24] MEDS: Aztreonam Inj 2 GM in Sodium Chloride 0.9% Inj 100 ML IV.SIG SCH ×3 (05:18→21:48)
[2018-02-24] MEDS: Levothyroxine 100 MCG Tablet PO SCH (05:19)
[2018-02-24 06:00] LABS: Hematocrit 28.4 % (35.0-46.0); Hemoglobin 9.6 gm/dL (11.6-15.3); Mean Corpuscular HGB Conc 33.9 % (32.0-36.0); Mean Corpuscular Hemoglobin 31.3 pg (27.0-34.0); Mean Corpuscular Volume 92.4 fL (80.0-100.0); Mean Platelet Volume 9.9 fL (7.0-11.0); Platelet Count 297 th/mm3 (150-450); Red Blood Count 3.08 mil/mm3 (4.00-5.30); Red Cell Distribution Width 18.8 % (11.6-17.2); White Blood Count 13.6 th/mm3 (4.0-11.0)
[2018-02-24 06:34] LABS: Alanine Aminotransferase 15 U/L (10-53); Albumin 2.1 g/dL (3.4-5.0); Alkaline Phosphatase 77 U/L (45-117); Anion Gap 10 meq/L (5-15); Aspartate Aminotransferase 19 U/L (15-37); Blood Urea Nitrogen 50 mg/dL (7-18); Calcium 8.3 mg/dL (8.5-10.1); Carbon Dioxide 26.6 meq/L (21.0-32.0); Chloride 101 meq/L (98-107); Glomerular Filtration Rate 35 mL/min (>89); Glucose,Random 162 mg/dL (74-106); Magnesium 2.1 mg/dL (1.5-2.5); Phosphorus 3.6 mg/dL (2.5-4.9); Potassium 4.5 meq/L (3.5-5.1); Sodium 138 meq/L (136-145); Total Protein 5.4 g/dL (6.4-8.2)
[2018-02-24 06:46] LABS: Lymphocytes 8 % (9-44); Metamyelocytes 5 % (0-1); Monocytes 15 % (0-8); Ovalocytes 1+; Platelet Estimate Normal (Normal); Platelet Morphology Normal (Normal)
[2018-02-24] MEDS: Chlorhexidine 0.12% Oral Kit 15 ML UDC OROPHARYNG SCH ×2 (08:11→21:48)
[2018-02-24] MEDS: Chlorhexidine Gluconate 2% 1 Pack (2 Cloths) TOPICAL SCH (08:12)
[2018-02-24] MEDS: Oral Hygiene Kit OROPHARYNG SCH ×3 (08:12→16:41)
[2018-02-24] MEDS: Insulin NovoLOG Aspart Correctional Sugar Inj SQ SCH ×3 (08:12→18:41)
--- NOTE | 2018-02-24 08:14 | P.PNCC ---
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 Hooper and Dr. Pineda with followup imaging negative for residual disease (05/2015, 09/2015). She was originally admitted to [facility] hospitalist service on 02/11/18 after she presented complaining of generalized weakness, anemia with hemoglobin of 6.3, dysphagia. She had a history of esophageal stricture that was dilated in June [address] Aly. She previously had G/J tube that became dislodged in May. She was lost to oncology followup for the last couple of years and had been having progressive difficulty with swallowing and cachexia. Modified barium swallow confirmed aspiration and she has undergone laparoscopic GJ placement 09/[address] Kraus. She has been n.p.o. and receiving continuous jejunal tube feeds. This evening, [facility] just before 6 pm for respiratory distress and patient's sats were in 30s. Dr. Yates responded to [facility] and intubated patient with 8.0 ETT by Glidescope. Some foreign material was suctioned from supraglottic area and patient has significant secretions suctioned from lower airways concerning for aspiration. Post-intubation, she has hypotension with MAP 55-60. 02/23 Patient is intubated and sedated with Fentanyl infusion. On Levophed 3 mics. Lactic acid 1.4. 02/24 Remains intubated sedated, remains on 2 mcg/min of Levophed. Discussed with Dr. Yates who intubated the patient. Apparently had supraglottic mass, and intubation was difficult. Will get ENT eval, and CT neck Objective Vital Signs / I&O: Vital Signs 02/23/18 08:15 02/23/18 08:30 02/23/18 08:45 Temperature Pulse Rate 60 63 59 L Respiratory Rate 18 21 16 Blood Pressure 118/58 L 118/58 L 101/50 L Pulse Oximetry 97 98 96 02/23/18 09:00 02/23/18 09:15 02/23/18 09:30 Temperature Pulse Rate 60 58 L 56 L Respiratory Rate 16 18 16 Blood Pressure 94/55 L 93/54 L 85/50 L Pulse Oximetry 97 96 95 07/08/18 09:45 02/23/18 09:50 02/23/18 10:00 Temperature Pulse Rate 56 L 56 L 56 L Respiratory Rate 22 33 H 20 Blood Pressure 82/43 L 94/50 L 105/56 L Pulse Oximetry 96 97 97 02/23/18 10:15 02/23/18 10:30 02/23/18 10:41 Temperature Pulse Rate 54 L 55 L Respiratory Rate 32 H 34 H 16 Blood Pressure 94/54 L 96/55 L Pulse Oximetry 97 97 02/23/18 10:45 02/23/18 11:00 02/23/18 11:05 Temperature Pulse Rate 54 L 54 L 60 Respiratory Rate 32 H 32 H Blood Pressure 96/54 L 94/50 L Pulse Oximetry 97 97 02/23/18 11:15 02/23/18 11:29 02/23/18 11:30 Temperature Pulse Rate 54 L 55 L 54 L Respiratory Rate 32 H 16 26 H Blood Pressure 95/50 L 97/51 L Pulse Oximetry 97 97 02/23/18 11:45 02/23/18 12:00 02/23/18 12:15 Temperature 97.6 F Pulse Rate 54 L 55 L 55 L Respiratory Rate 32 H 32 H 35 H Blood Pressure 93/54 L 94/55 L 96/53 L Pulse Oximetry 96 97 97 02/23/18 12:30 02/23/18 12:45 02/23/18 13:00 Temperature Pulse Rate 54 L 70 57 L Respiratory Rate 32 H 27 H 32 H Blood Pressure 91/50 L 93/55 L 89/50 L Pulse Oximetry 96 96 95 02/23/18 13:15 02/23/18 13:30 02/23/18 13:45 Temperature Pulse Rate 55 L 55 L 55 L Respiratory Rate 33 H 33 H 33 H Blood Pressure 84/46 L 94/55 L 93/54 L Pulse Oximetry 95 97 96 02/23/18 14:00 02/23/18 14:15 02/23/18 14:30 Temperature Pulse Rate 54 L 55 L 55 L Respiratory Rate 29 H 33 H 32 H Blood Pressure 96/51 L 98/50 L 97/54 L Pulse Oximetry 96 96 96 02/23/18 14:45 02/23/18 15:00 02/23/18 15:15 Temperature Pulse Rate 56 L 56 L 55 L Respiratory Rate 32 H 35 H 32 H Blood Pressure 97/51 L 98/51 L 98/52 L Pulse Oximetry 96 96 96 02/23/18 15:30 02/23/18 15:34 02/23/18 15:41 Temperature Pulse Rate 56 L 69 Respiratory Rate 31 H 20 24 Blood Pressure 102/52 L Pulse Oximetry 96 96 02/23/18 15:45 02/23/18 16:00 02/23/18 16:16 Temperature 98.1 F Pulse Rate 65 66 66 Respiratory Rate 29 H 30 H 28 H Blood Pressure 102/53 L 97/50 L 114/55 L Pulse Oximetry 95 95 95 02/23/18 16:31 02/23/18 16:45 02/23/18 17:00 Temperature Pulse Rate 63 58 L 63 Respiratory Rate 34 H 21 30 H Blood Pressure 89/48 L 103/53 L 105/52 L Pulse Oximetry 94 L 95 98 02/23/18 17:15 02/23/18 17:30 02/23/18 17:45 Temperature Pulse Rate 60 60 59 L Respiratory Rate 27 H 27 H 26 H Blood Pressure 100/54 L 93/50 L 98/55 L Pulse Oximetry 96 97 97 02/23/18 18:00 02/23/18 19:24 02/23/18 19:29 Temperature Pulse Rate 80 65 Respiratory Rate 38 H 21 23 Blood Pressure 128/58 L Pulse Oximetry 95 97 02/23/18 19:30 02/23/18 19:45 02/23/18 20:00 Temperature 97.6 F Pulse Rate 62 60 61 Respiratory Rate 25 H 25 H 28 H Blood Pressure 106/55 L 110/52 L 104/51 L Pulse Oximetry 95 95 97 02/23/18 20:15 02/23/18 20:28 02/23/18 20:30 Temperature Pulse Rate 58 L 64 64 Respiratory Rate 20 26 H 30 H Blood Pressure 97/51 L 102/58 L 108/57 L Pulse Oximetry 96 96 100 02/23/18 20:45 02/23/18 20:58 02/23/18 21:00 Temperature Pulse Rate 65 80 79 Respiratory Rate 26 H 45 H 30 H Blood Pressure 115/56 L 119/59 L 115/55 L Pulse Oximetry 100 99 95 02/23/18 21:15 02/23/18 21:30 02/23/18 21:39 Temperature Pulse Rate 62 63 Respiratory Rate 22 24 Blood Pressure 97/50 L 102/54 L Pulse Oximetry 96 95 100 02/23/18 21:45 02/23/18 22:00 02/23/18 22:15 Temperature Pulse Rate 62 71 66 Respiratory Rate 21 23 29 H Blood Pressure 97/54 L 116/55 L 101/51 L Pulse Oximetry 96 96 96 02/23/18 22:30 02/23/18 22:45 02/23/18 23:00 Temperature Pulse Rate 62 63 63 Respiratory Rate 18 19 21 Blood Pressure 104/54 L 105/51 L 105/51 L Pulse Oximetry 95 97 96 02/23/18 23:16 02/23/18 23:30 02/23/18 23:40 Temperature Pulse Rate 67 60 81 Respiratory Rate 22 20 30 H Blood Pressure 117/58 L 108/55 L Pulse Oximetry 97 96 100 02/23/18 23:45 02/24/18 00:00 02/24/18 00:15 Temperature 97.4 F L Pulse Rate 70 71 64 Respiratory Rate 19 23 17 Blood Pressure 117/56 L 106/54 L 104/51 L Pulse Oximetry 99 97 97 02/24/18 00:30 02/24/18 00:45 02/24/18 01:00 Temperature Pulse Rate 67 62 71 Respiratory Rate 16 17 21 Blood Pressure 116/57 L 104/55 L 124/58 L Pulse Oximetry 97 98 99 02/24/18 01:15 02/24/18 01:30 02/24/18 01:45 Temperature Pulse Rate 61 63 63 Respiratory Rate 16 18 19 Blood Pressure 107/54 L 110/57 L 105/52 L Pulse Oximetry 98 98 98 02/24/18 02:00 02/24/18 02:15 02/24/18 02:31 Temperature Pulse Rate 62 61 63 Respiratory Rate 18 16 17 Blood Pressure 109/55 L 117/58 L 108/53 L Pulse Oximetry 98 98 97 02/24/18 02:45 02/24/18 03:00 02/24/18 03:15 Temperature Pulse Rate 62 61 61 Respiratory Rate 17 17 17 Blood Pressure 111/58 L 108/59 L 107/57 L Pulse Oximetry 98 99 98 02/24/18 03:30 02/24/18 03:45 02/24/18 04:00 Temperature 97.4 F L Pulse Rate 61 61 63 Respiratory Rate 18 18 17 Blood Pressure 112/58 L 115/57 L 127/60 Pulse Oximetry 98 98 98 02/24/18 04:05 02/24/18 04:15 02/24/18 04:30 Temperature Pulse Rate 65 63 66 Respiratory Rate 21 17 22 Blood Pressure 121/56 L 119/59 L Pulse Oximetry 65 L 98 98 02/24/18 04:45 02/24/18 06:00 02/24/18 07:28 Temperature Pulse Rate 62 64 62 Respiratory Rate 20 17 Blood Pressure 121/57 L Pulse Oximetry 98 02/24/18 07:32 Temperature Pulse Rate Respiratory Rate 17 Blood Pressure Pulse Oximetry 98 Intake & Output 02/23/18 02/24/18 02/24/18 18:59 06:59 18:59 Intake Total 1690.5 / 1690.5 2405 / 2405 Output Total 388 / 388 495 / 495 Balance 1302.5 / 1302.5 191 / 1909 Weight 71.8 kg Intake: IV 1553.5 / 1553.5 1200 / 1200 Versed Inj 50 mg In 50 ml @ 2 3.5 / 3.5 MG/HR 2 mls/hr IV.CONT TITRATE PRN Rx#:[id number] Azactam Inj 2 GM In NS Inj 100 100 / 100 100 / 100 ML @ 200 mls/hr IV.SIG Q8H [facility] Rx#:[id number] LR 1000 mL Inj 1,000 ML @ 84 1000 / 1000 1000 / 1000 mls/hr IV.SIG .[id number] ANN Rx#: [id number] Magnesium Sulfate Inj 2 GM In 100 / 100 NS Inj 96 ML @ 50 mls/hr IV.SIG UNSCH PRN Rx#:[id number] Levophed-Dextrose 4 mg/250 ml 250 / 250 Drip 4 mg In 250 ml @ 2 MCG/MIN 7.5 mls/hr IV.SIG TITRATE PRN Rx#:[id number] Flagyl 500 MG Inj 100 ML @ 100 100 / 100 100 / 100 mls/hr IV.SIG Q8H [facility] Rx#: [id number] Oral 0 / 0 Tube Feeding 77 / 77 77 / 77 Tube Irrigant 60 / 60 Water Bolus Amount 60 / 60 60 / 60 Other 1008 / 1008 Output: Urine 5 / 5 Emesis 200 / 200 Urine Amount (Catheter) 388 / 388 290 / 290 Indwelling Urethral Catheter 388 / 388 290 / 290 Gastric Drainage 0 / 0 Left Upper Quadrant 0 / 0 Gastrojejunostomy Tube Other: # Voids 10 Date of Last Bowel Movement 02/21/18 02/21/18 # Bowel Movements 1 Result Diagrams: 02/24/18 05:00 02/24/18 05:00 Objective Remarks: GENERAL: Patient is 72 yo intubated and sedated, appears comfortable wakes up easily SKIN: Warm and dry. HEAD: Normocephalic. EYES: No scleral icterus. No injection or drainage. NECK: Supple, trachea midline. No JVD or lymphadenopathy. Positive cuff leak CARDIOVASCULAR: Regular rate and rhythm without murmurs, gallops, or rubs. RESPIRATORY: Breath sounds equal bilaterally. No accessory muscle use. GASTROINTESTINAL: Abdomen soft, non-tender, nondistended. MUSCULOSKELETAL: No cyanosis, or edema. BACK: Nontender without obvious deformity. No CVA tenderness. Neuro: Patient is awake alert moves all extremities spontaneously follows commands. No focal deficits Assessment and Plan - Problem List (1) Aspiration pneumonia Code(s): J69.0 - Pneumonitis due to inhalation of food and vomit Status: Acute (2) Acute respiratory failure Code(s): J96.00 - Acute respiratory failure, unspecified whether with hypoxia or hypercapnia Status: Acute (3) Septic shock Code(s): A41.9 - Sepsis, unspecified organism; R65.21 - Severe sepsis with septic shock Status: Acute (4) Dysphagia causing pulmonary aspiration with swallowing Code(s): R13.19 - Other dysphagia Status: Chronic (5) Esophageal stricture Code(s): K22.2 - Esophageal obstruction Status: Acute (6) Hypothyroidism Code(s): E03.9 - Hypothyroidism, unspecified Status: Chronic (7) Protein-calorie malnutrition, severe Code(s): E43 - Unspecified severe protein-calorie malnutrition Status: Chronic (8) Debility, unspecified Code(s): R53.81 - Other malaise Status: Chronic (9) BETSEY (acute kidney injury) Code(s): N17.9 - Acute kidney failure, unspecified Status: Acute (10) CKD (chronic kidney disease) stage 3, GFR 30-59 ml/min Code(s): N18.3 - Chronic kidney disease, stage 3 (moderate) Status: Chronic - Assessment and Plan Plan: NEURO: Fentanyl for analgosedation. Versed prn for sedation. Daily sedation vacation RESP: Acute respiratory failure Aspiration pneumonia History of supraglottic laryngeal cancer-see HEME below Ventilator bundle. DuoNeb every 4 hours. Albuterol every 2 hours as needed. Continue Solu-Medrol 60 mg IV every 6 hours. Chest x-ray bibasilar opacities. ETT position satisfactory. Antibiotics as per below. Patient tolerates CPAP trials, positive cuff leak however await ENT evaluation prior to extubation Dr. Yates described specifically and intubation, and a supraglottic mass CV: Septic shock (Hypotension secondary to distributive shock from sepsis/SIRS due to aspiration) s/p LR bolus 2 L. Levophed to maintain mean arterial pressure greater than 65. No prior Echo, will obtain. Troponin 0 0.06, will trend. Hold metoprolol due to hypotension. GI: Dysphagia Esophageal stricture Now status post G/J Severe chronic protein energy malnutrition. OG tube to low intermittent wall suction. Continue vital 1.5 at 65 mL/h via jejunostomy for nutrition recommendations. GI following, plan for outpatient esophageal dilation. FEN/RENAL: BETSEY overlying CKD Stage III [place] [address]. Monitor intake and output every hour.. Monitor electrolytes. Replace electrolytes as indicated per ICU electrolyte replacement protocol. ID: Aspiration pneumonia Septic shock Patient was started on Levaquin and p.o. Flagyl on 02/20. Has decompensated despite these and is now hypotensive. F/u cultures.. Has penicillin allergy. Placed on aztreonam, change flagyl to IV for now. HEME/ENT: Supraglottic laryngeal cancer status post radiation and chemo therapy Follow-up imaging previously demonstrated no residual disease. Supraglottic foreign material vs mass was noted upon intubation. Obtain CT neck to evaluate for evidence of recurrence on imaging. ENT eval requested Has been followed by Dr. Pineda. ENDO: Hypothyroidism Continue Synthroid 100 mcg via tube. daily Acute stress hyperglycemia Monitor bedside glucose every 6 hours initiate low-dose insulin sliding scale as indicated. PROPH: SCDs/heparin subcu for DVT prophylaxis. Lansoprazole for stress ulcer prophylaxis. ACCESS: Left IJ central venous line placement 02/23/18 Patient is critically ill with post intubation hypotension requiring fluid resuscitation and vasopressors to prevent further deterioration and . Full code. Critical care time 35 minutes exclusive of separately billable procedures. (2) Acute respiratory failure Qualifiers: Respiratory failure complication: hypoxia Qualified Code(s): J96.01 - Acute respiratory failure with hypoxia
[2018-02-24] MEDS: Carbamide Peroxide 6.5% Otic Drops 15 ML Bottle RIGHT EAR SCH ×2 (10:40→21:47)
[2018-02-24] MEDS: Lansoprazole ODT 15 MG Tablet G-TUBE SCH (10:41)
--- NOTE | 2018-02-24 14:40 | P.PNPAL ---
Reason for Visit Reason for visit: a. To assist with evaluation and management of symptoms including: debility, dysphagia, dyspnea, pain b. To assist medical decision maker(s) with: better understanding of current medical conditions; weighing benefits/burdens of medical treatment options; making medical treatment decisions. Subjective Subjective/Interval History: Ms. Henson is a 72-year-old female who presented to [facility] on 02/11/2018 progressively worsening generalized weakness that had become severe in the previous 2 days. 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 Hooper and Dr. Pineda. Patient stated she has difficulty swallowing and was coughing with liquids. She has a known history of esophageal stricture requiring dilatation. Patient previously had a J-G tube but it fell out in 2016. Since then, she had been drinking supplemental nutritional drinks but her insurance stopped paying for them last September. Patient reports she feels like she is getting amari and gaining weight s/p G-J-tube being replaced on 2017. Hospitalization has been complicated by patient's depression and intermittent suicidal ideation (now resolved), requiring psychiatric evaluation. Dual visit with CHANEL Dixon, seen today to follow up on debility, dysphagia, dyspnea, pain. On 02/22 pt had respiratory distress, OPAL FINLEY was called. She was c/o difficulty breathing, feeling of something in back of her throat. She was s/p PEG and NPO. She was emergently intubated. During intubation foreign material was suctioned from her throat and intubating physician reportedly noted supraglottal mass. There was concern for aspiration. . On my evaluation she is lying in bed, BUE in soft restraints, denies feeling SOB. CT soft tissue neck unremarkable, repeat imaging & ENT consult is pending prior to extubation. She has been tolerating CPAP. She is awake and able to shake her head 'no' and nod 'yes' and answers questions appropriately. She admits pain in her, back, buttocks, and heels. TF running 50ml/hr. HH relatively stable. CT chest showed 1cm nodule right upper lung lobe concerning for malignancy, bilat pleural effusions. Family/Friend Interactions: Spoke with pt's son Gee via phone, provided medical update. He requested comparison for CT neck and CT chest. Advance Directives Living Will: Copy in medical record Health Care Surrogate Name and Number: Alireza Whitten, son: [phone] or [phone] Documented care wishes:: Completed a living will is accessible in the patient's paper chart. Objective Vital Signs: Vital Signs 02/23/18 14:30 02/23/18 14:45 02/23/18 15:00 Temperature Pulse Rate 55 L 56 L 56 L Respiratory Rate 32 H 32 H 35 H Blood Pressure 97/54 L 97/51 L 98/51 L Pulse Oximetry 96 96 96 02/23/18 15:15 02/23/18 15:30 02/23/18 15:34 Temperature Pulse Rate 55 L 56 L Respiratory Rate 32 H 31 H 20 Blood Pressure 98/52 L 102/52 L Pulse Oximetry 96 96 96 02/23/18 15:41 02/23/18 15:45 02/23/18 16:00 Temperature 98.1 F Pulse Rate 69 65 66 Respiratory Rate 24 29 H 30 H Blood Pressure 102/53 L 97/50 L Pulse Oximetry 95 95 02/23/18 16:16 02/23/18 16:31 02/23/18 16:45 Temperature Pulse Rate 66 63 58 L Respiratory Rate 28 H 34 H 21 Blood Pressure 114/55 L 89/48 L 103/53 L Pulse Oximetry 95 94 L 95 02/23/18 17:00 02/23/18 17:15 02/23/18 17:30 Temperature Pulse Rate 63 60 60 Respiratory Rate 30 H 27 H 27 H Blood Pressure 105/52 L 100/54 L 93/50 L Pulse Oximetry 98 96 97 02/23/18 17:45 02/23/18 18:00 02/23/18 19:24 Temperature Pulse Rate 59 L 80 Respiratory Rate 26 H 38 H 21 Blood Pressure 98/55 L 128/58 L Pulse Oximetry 97 95 97 02/23/18 19:29 02/23/18 19:30 02/23/18 19:45 Temperature Pulse Rate 65 62 60 Respiratory Rate 23 25 H 25 H Blood Pressure 106/55 L 110/52 L Pulse Oximetry 95 95 02/23/18 20:00 02/23/18 20:15 02/23/18 20:28 Temperature 97.6 F Pulse Rate 61 58 L 64 Respiratory Rate 28 H 20 26 H Blood Pressure 104/51 L 97/51 L 102/58 L Pulse Oximetry 97 96 96 02/23/18 20:30 02/23/18 20:45 02/23/18 20:58 Temperature Pulse Rate 64 65 80 Respiratory Rate 30 H 26 H 45 H Blood Pressure 108/57 L 115/56 L 119/59 L Pulse Oximetry 100 100 99 02/23/18 21:00 02/23/18 21:15 02/23/18 21:30 Temperature Pulse Rate 79 62 63 Respiratory Rate 30 H 22 24 Blood Pressure 115/55 L 97/50 L 102/54 L Pulse Oximetry 95 96 95 02/23/18 21:39 02/23/18 21:45 02/23/18 22:00 Temperature Pulse Rate 62 71 Respiratory Rate 21 23 Blood Pressure 97/54 L 116/55 L Pulse Oximetry 100 96 96 02/23/18 22:15 02/23/18 22:30 02/23/18 22:45 Temperature Pulse Rate 66 62 63 Respiratory Rate 29 H 18 19 Blood Pressure 101/51 L 104/54 L 105/51 L Pulse Oximetry 96 95 97 02/23/18 23:00 02/23/18 23:16 02/23/18 23:30 Temperature Pulse Rate 63 67 60 Respiratory Rate 21 22 20 Blood Pressure 105/51 L 117/58 L 108/55 L Pulse Oximetry 96 97 96 02/23/18 23:40 02/23/18 23:45 02/24/18 00:00 Temperature 97.4 F L Pulse Rate 81 70 71 Respiratory Rate 30 H 19 23 Blood Pressure 117/56 L 106/54 L Pulse Oximetry 100 99 97 02/24/18 00:15 02/24/18 00:30 02/24/18 00:45 Temperature Pulse Rate 64 67 62 Respiratory Rate 17 16 17 Blood Pressure 104/51 L 116/57 L 104/55 L Pulse Oximetry 97 97 98 02/24/18 01:00 02/24/18 01:15 02/24/18 01:30 Temperature Pulse Rate 71 61 63 Respiratory Rate 21 16 18 Blood Pressure 124/58 L 107/54 L 110/57 L Pulse Oximetry 99 98 98 02/24/18 01:45 02/24/18 02:00 02/24/18 02:15 Temperature Pulse Rate 63 62 61 Respiratory Rate 19 18 16 Blood Pressure 105/52 L 109/55 L 117/58 L Pulse Oximetry 98 98 98 02/24/18 02:31 02/24/18 02:45 02/24/18 03:00 Temperature Pulse Rate 63 62 61 Respiratory Rate 17 17 17 Blood Pressure 108/53 L 111/58 L 108/59 L Pulse Oximetry 97 98 99 02/24/18 03:15 02/24/18 03:30 02/24/18 03:45 Temperature Pulse Rate 61 61 61 Respiratory Rate 17 18 18 Blood Pressure 107/57 L 112/58 L 115/57 L Pulse Oximetry 98 98 98 02/24/18 04:00 02/24/18 04:05 02/24/18 04:15 Temperature 97.4 F L Pulse Rate 63 65 63 Respiratory Rate 17 21 17 Blood Pressure 127/60 121/56 L Pulse Oximetry 98 65 L 98 02/24/18 04:30 02/24/18 04:45 02/24/18 05:30 Temperature Pulse Rate 66 62 62 Respiratory Rate 22 20 18 Blood Pressure 119/59 L 121/57 L 149/64 H Pulse Oximetry 98 98 98 02/24/18 05:45 02/24/18 06:00 02/24/18 06:15 Temperature Pulse Rate 63 64 63 Respiratory Rate 18 20 17 Blood Pressure 121/59 L 133/63 124/51 L Pulse Oximetry 97 98 98 02/24/18 06:30 02/24/18 06:45 02/24/18 07:00 Temperature Pulse Rate 63 61 61 Respiratory Rate 18 14 20 Blood Pressure 121/60 118/57 L 115/58 L Pulse Oximetry 98 98 99 02/24/18 07:15 02/24/18 07:28 02/24/18 07:30 Temperature Pulse Rate 61 62 61 Respiratory Rate 18 17 20 Blood Pressure 115/59 L 116/57 L Pulse Oximetry 99 99 02/24/18 07:32 02/24/18 07:45 02/24/18 08:00 Temperature 98.4 F Pulse Rate 64 64 Respiratory Rate 17 20 24 Blood Pressure 123/76 114/60 Pulse Oximetry 98 97 99 02/24/18 08:15 02/24/18 08:30 02/24/18 08:45 Temperature Pulse Rate 64 65 62 Respiratory Rate 23 22 18 Blood Pressure 119/63 116/59 L 116/57 L Pulse Oximetry 99 99 99 02/24/18 09:00 02/24/18 09:15 02/24/18 09:30 Temperature Pulse Rate 62 62 63 Respiratory Rate 17 16 17 Blood Pressure 113/53 L 115/57 L 117/59 L Pulse Oximetry 99 99 99 02/24/18 09:45 02/24/18 10:00 02/24/18 10:15 Temperature Pulse Rate 64 60 65 Respiratory Rate 18 17 20 Blood Pressure 114/59 L 113/53 L 118/60 Pulse Oximetry 99 99 100 02/24/18 10:30 02/24/18 10:45 02/24/18 11:00 Temperature Pulse Rate 61 61 62 Respiratory Rate 16 13 13 Blood Pressure 105/55 L 117/59 L 105/51 L Pulse Oximetry 99 99 99 02/24/18 11:15 02/24/18 11:16 02/24/18 11:30 Temperature Pulse Rate 62 61 61 Respiratory Rate 14 17 12 Blood Pressure 112/54 L 110/53 L Pulse Oximetry 99 99 Intake & Output 02/23/18 02/24/18 02/24/18 18:59 06:59 18:59 Intake Total 1690.5 / 1690.5 2605 / 2605 Output Total 388 / 388 495 / 495 Balance 1302.5 / 1302.5 2110 / 2110 Weight 71.8 kg Intake: IV 1553.5 / 1553.5 1400 / 1400 Versed Inj 50 mg In 50 ml @ 2 3.5 / 3.5 MG/HR 2 mls/hr IV.CONT TITRATE PRN Rx#:[id number] Azactam Inj 2 GM In NS Inj 100 100 / 100 200 / 200 ML @ 200 mls/hr IV.SIG Q8H ANN Rx#:[id number] LR 1000 mL Inj 1,000 ML @ 84 1000 / 1000 1000 / 1000 mls/hr IV.SIG .[id number] ANN Rx#: [id number] Magnesium Sulfate Inj 2 GM In 100 / 100 NS Inj 96 ML @ 50 mls/hr IV.SIG UNSCH PRN Rx#:[id number] Levophed-Dextrose 4 mg/250 ml 250 / 250 Drip 4 mg In 250 ml @ 2 MCG/MIN 7.5 mls/hr IV.SIG TITRATE PRN Rx#:[id number] Flagyl 500 MG Inj 100 ML @ 100 100 / 100 200 / 200 mls/hr IV.SIG Q8H [facility] Rx#: [id number] Oral 0 / 0 Tube Feeding / Tube Irrigant 60 / 60 Water Bolus Amount 60 / 60 60 / 60 Other 1008 / 1008 Output: Urine 5 / 5 Emesis 200 / 200 Urine Amount (Catheter) 388 / 388 290 / 290 Indwelling Urethral Catheter 388 / 388 290 / 290 Gastric Drainage 0 / 0 Left Upper Quadrant 0 / 0 Gastrojejunostomy Tube Other: # Voids 10 Date of Last Bowel Movement 02/21/18 02/21/18 02/21/18 # Bowel Movements 1 Physical Exam: CONSTITUTIONAL/GENERAL: This is a frail, elderly female patient in no acute distress. SKIN: No jaundice, rashes, or lesions. No wounds seen anteriorly. Skin temperature appropriate. Not diaphoretic. HEAD: Atraumatic. Normocephalic. EYES: PERRL. Extraocular motions intact. No scleral icterus. No injection or drainage. Fundi not examined. ENT: Hearing grossly normal. Nose without bleeding or purulent drainage. Mucous membranes dry. NECK: Trachea midline. Supple, nontender. CARDIOVASCULAR: RRR without murmurs, gallops, or rubs. No JVD. Peripheral pulses symmetric. RESPIRATORY/CHEST: coarse breath sounds GASTROINTESTINAL: Abdomen soft, non-tender, mildly distended. No hepato- splenomegaly, or palpable masses. No guarding. Bowel sounds present. MUSCULOSKELETAL: Extremities without clubbing, cyanosis, or edema. No mottling or clubbing. NEUROLOGICAL: Awake; Answers yes/no questions. Follows commands. PSYCHIATRIC: No obvious anxiety/agitation. No suicidal ideation. Diagnostic Tests Laboratory: Laboratory Results - last 72 hr 02/16/18 02/21/18 02/21/18 13:23 12:55 14:59 WBC RBC Hgb Hct MCV MCH MCHC RDW Plt Count MPV Prelim Diff (Auto) Neut % (Auto) Lymph % (Auto) [place] % (Auto) Eos % (Auto) Baso % (Auto) Neut # (Auto) Lymph # (Auto) [place] # (Auto) Eos # (Auto) Baso # (Auto) WBC Differential Seg Neuts % (Manual) Band Neuts % (Manual) Lymphocytes % (Manual) Monocytes % (Manual) Eosinophils % (Manual) Metamyelocytes % (Man) Myelocytes % (Man) Abs Neuts (Manual) Differential Comment Toxic Granulation Platelet Estimate Platelet Morphology Ovalocytes Acanthocytes (Spur) Puncture Site Patient Temperature O2 Saturation ABG pH ABG pCO2 ABG pO2 ABG HCO3 ABG O2 Content ABG Base Excess ABG Methemoglobin Terrell Test Hemoglobin Carboxyhemoglobin O2 Delivery Device Vent Setting Inspired O2 Critical Value Sodium Potassium Chloride Carbon Dioxide Anion Gap BUN Creatinine Estimated GFR POC Glucose Random Glucose Lactic Acid Calcium Phosphorus Magnesium Total Bilirubin Direct Bilirubin Indirect Bilirubin AST ALT Alkaline Phosphatase Ammonia Total Creatine Kinase Troponin I Total Protein Albumin Amylase Lipase RBC Folate 229 L TSH Nasal Screen MRSA (PCR) Blood Type B Positive Blood Type Confirm B Positive Antibody Screen Negative MTS Gel Crossmatch See Detail 02/22/18 02/22/18 02/22/18 08:11 08:11 18:49 WBC 5.6 RBC 3.05 L Hgb 9.7 L D Hct 27.9 L MCV 91.4 D MCH 31.8 MCHC 34.8 RDW 18.8 H Plt Count 303 MPV 9.9 Prelim Diff (Auto) Manual diff required Neut % (Auto) Lymph % (Auto) [place] % (Auto) Eos % (Auto) Baso % (Auto) Neut # (Auto) Lymph # (Auto) [place] # (Auto) Eos # (Auto) Baso # (Auto) WBC Differential Manual diff final Seg Neuts % (Manual) 61 Band Neuts % (Manual) 7 H Lymphocytes % (Manual) 9 Monocytes % (Manual) 11 H Eosinophils % (Manual) 4 Metamyelocytes % (Man) 2 H Myelocytes % (Man) 6 H Abs Neuts (Manual) 4.3 Differential Comment . Toxic Granulation Platelet Estimate Normal Platelet Morphology Enlarged H Ovalocytes 1+ H Acanthocytes (Spur) Puncture Site Patient Temperature O2 Saturation ABG pH ABG pCO2 ABG pO2 ABG HCO3 ABG O2 Content ABG Base Excess ABG Methemoglobin Terrell Test Hemoglobin Carboxyhemoglobin O2 Delivery Device Vent Setting Inspired O2 Critical Value Sodium 139 137 Potassium 4.3 4.2 Chloride 99 98 Carbon Dioxide 31.1 26.4 Anion Gap 9 13 BUN 31 H 32 H Creatinine 1.11 H 1.17 H Estimated GFR 48 L 46 L POC Glucose Random Glucose 117 H 136 H Lactic Acid Calcium 8.1 L 7.9 L Phosphorus 4.0 Magnesium 1.5 Total Bilirubin 0.6 0.5 Direct Bilirubin 0.2 Indirect Bilirubin 0.3 AST 15 16 ALT 12 15 Alkaline Phosphatase 75 80 Ammonia Total Creatine Kinase Troponin I Total Protein 5.4 L 5.7 L Albumin 2.1 L 2.1 L Amylase 36 Lipase 158 RBC Folate TSH Nasal Screen MRSA (PCR) Blood Type Blood Type Confirm Antibody Screen MTS Gel Crossmatch 02/22/18 02/22/18 02/22/18 18:49 18:49 18:49 WBC 7.0 RBC 3.33 L Hgb 10.5 L Hct 31.2 L MCV 93.7 MCH 31.5 MCHC 33.6 RDW 19.4 H Plt Count 408 D MPV 10.0 Prelim Diff (Auto) Neut % (Auto) Lymph % (Auto) [place] % (Auto) Eos % (Auto) Baso % (Auto) Neut # (Auto) Lymph # (Auto) [place] # (Auto) Eos # (Auto) Baso # (Auto) WBC Differential Seg Neuts % (Manual) Band Neuts % (Manual) Lymphocytes % (Manual) Monocytes % (Manual) Eosinophils % (Manual) Metamyelocytes % (Man) Myelocytes % (Man) Abs Neuts (Manual) Differential Comment Toxic Granulation Platelet Estimate Platelet Morphology Ovalocytes Acanthocytes (Spur) Puncture Site Patient Temperature O2 Saturation ABG pH ABG pCO2 ABG pO2 ABG HCO3 ABG O2 Content ABG Base Excess ABG Methemoglobin Terrell Test Hemoglobin Carboxyhemoglobin O2 Delivery Device Vent Setting Inspired O2 Critical Value Sodium Potassium Chloride Carbon Dioxide Anion Gap BUN Creatinine Estimated GFR POC Glucose Random Glucose Lactic Acid 2.3 H Calcium Phosphorus Magnesium Total Bilirubin Direct Bilirubin Indirect Bilirubin AST ALT Alkaline Phosphatase Ammonia Total Creatine Kinase 29 Troponin I Total Protein Albumin Amylase Lipase RBC Folate TSH Nasal Screen MRSA (PCR) Blood Type Blood Type Confirm Antibody Screen MTS Gel Crossmatch 02/22/18 02/22/18 02/22/18 18:49 19:25 19:45 WBC RBC Hgb Hct MCV MCH MCHC RDW Plt Count MPV Prelim Diff (Auto) Neut % (Auto) Lymph % (Auto) [place] % (Auto) Eos % (Auto) Baso % (Auto) Neut # (Auto) Lymph # (Auto) [place] # (Auto) Eos # (Auto) Baso # (Auto) WBC Differential Seg Neuts % (Manual) Band Neuts % (Manual) Lymphocytes % (Manual) Monocytes % (Manual) Eosinophils % (Manual) Metamyelocytes % (Man) Myelocytes % (Man) Abs Neuts (Manual) Differential Comment Toxic Granulation Platelet Estimate Platelet Morphology Ovalocytes Acanthocytes (Spur) Puncture Site Right brachial Patient Temperature 98.6 O2 Saturation 98 ABG pH 7.37 L ABG pCO2 49 H ABG pO2 319 H ABG HCO3 28 H ABG O2 Content 14.8 ABG Base Excess 2.9 H ABG Methemoglobin 1.2 Terrell Test Present Hemoglobin 10.2 L Carboxyhemoglobin 0.8 O2 Delivery Device Vent Vent Setting See comments Inspired O2 100 Critical Value No Sodium Potassium Chloride Carbon Dioxide Anion Gap BUN Creatinine Estimated GFR POC Glucose Random Glucose Lactic Acid Calcium Phosphorus Magnesium Total Bilirubin Direct Bilirubin Indirect Bilirubin AST ALT Alkaline Phosphatase Ammonia Total Creatine Kinase Troponin I 0.06 H Total Protein Albumin Amylase Lipase RBC Folate TSH Nasal Screen MRSA (PCR) Mrsa detected Blood Type Blood Type Confirm Antibody Screen MTS Gel Crossmatch 02/22/18 02/23/18 02/23/18 21:43 05:32 05:32 WBC 9.2 RBC 3.11 L Hgb 9.7 L Hct 28.6 L MCV 91.9 MCH 31.1 MCHC 33.8 RDW 19.1 H Plt Count 433 MPV 10.2 Prelim Diff (Auto) Slide review pending Neut % (Auto) 89.7 H Lymph % (Auto) 8.8 L [place] % (Auto) 1.1 Eos % (Auto) 0.1 Baso % (Auto) 0.3 Neut # (Auto) 8.2 H Lymph # (Auto) 0.8 L [place] # (Auto) 0.1 Eos # (Auto) 0.0 Baso # (Auto) 0.0 WBC Differential Manual diff final Seg Neuts % (Manual) 66 Band Neuts % (Manual) 11 H Lymphocytes % (Manual) 9 Monocytes % (Manual) 6 Eosinophils % (Manual) Metamyelocytes % (Man) Myelocytes % (Man) 8 H Abs Neuts (Manual) 7.8 H Differential Comment . Toxic Granulation 1+ H Platelet Estimate Normal Platelet Morphology Enlarged H Ovalocytes 1+ H Acanthocytes (Spur) 1+ H Puncture Site Patient Temperature O2 Saturation ABG pH ABG pCO2 ABG pO2 ABG HCO3 ABG O2 Content ABG Base Excess ABG Methemoglobin Terrell Test Hemoglobin Carboxyhemoglobin O2 Delivery Device Vent Setting Inspired O2 Critical Value Sodium Potassium Chloride Carbon Dioxide Anion Gap BUN Creatinine Estimated GFR POC Glucose Random Glucose Lactic Acid 1.4 Calcium Phosphorus Magnesium Total Bilirubin Direct Bilirubin Indirect Bilirubin AST ALT Alkaline Phosphatase Ammonia 17 Total Creatine Kinase Troponin I Total Protein Albumin Amylase Lipase RBC Folate TSH Nasal Screen MRSA (PCR) Blood Type Blood Type Confirm Antibody Screen MTS Gel Crossmatch 02/23/18 02/24/18 02/24/18 05:32 03:14 03:37 WBC RBC Hgb Hct MCV MCH MCHC RDW Plt Count MPV Prelim Diff (Auto) Neut % (Auto) Lymph % (Auto) [place] % (Auto) Eos % (Auto) Baso % (Auto) Neut # (Auto) Lymph # (Auto) [place] # (Auto) Eos # (Auto) Baso # (Auto) WBC Differential Seg Neuts % (Manual) Band Neuts % (Manual) Lymphocytes % (Manual) Monocytes % (Manual) Eosinophils % (Manual) Metamyelocytes % (Man) Myelocytes % (Man) Abs Neuts (Manual) Differential Comment Toxic Granulation Platelet Estimate Platelet Morphology Ovalocytes Acanthocytes (Spur) Puncture Site Patient Temperature O2 Saturation ABG pH ABG pCO2 ABG pO2 ABG HCO3 ABG O2 Content ABG Base Excess ABG Methemoglobin Terrell Test Hemoglobin Carboxyhemoglobin O2 Delivery Device Vent Setting Inspired O2 Critical Value Sodium 136 Potassium 4.1 Chloride 98 Carbon Dioxide 24.6 Anion Gap 13 BUN 38 H Creatinine 1.45 H Estimated GFR 36 L POC Glucose 105 174 H Random Glucose 238 H D Lactic Acid Calcium 8.1 L Phosphorus 3.6 Magnesium 1.4 L Total Bilirubin Direct Bilirubin Indirect Bilirubin AST ALT Alkaline Phosphatase Ammonia Total Creatine Kinase Troponin I Total Protein Albumin Amylase Lipase RBC Folate TSH 3.730 Nasal Screen MRSA (PCR) Blood Type Blood Type Confirm Antibody Screen MTS Gel Crossmatch 02/24/18 02/24/18 05:00 05:00 WBC 13.6 H RBC 3.08 L Hgb 9.6 L Hct 28.4 L MCV 92.4 MCH 31.3 MCHC 33.9 RDW 18.8 H Plt Count 297 D MPV 9.9 Prelim Diff (Auto) Slide review pending Neut % (Auto) Lymph % (Auto) [place] % (Auto) Eos % (Auto) Baso % (Auto) Neut # (Auto) Lymph # (Auto) [place] # (Auto) Eos # (Auto) Baso # (Auto) WBC Differential Manual diff final Seg Neuts % (Manual) 61 Band Neuts % (Manual) 11 H Lymphocytes % (Manual) 8 L Monocytes % (Manual) 15 H Eosinophils % (Manual) Metamyelocytes % (Man) 5 H Myelocytes % (Man) Abs Neuts (Manual) 10.5 H Differential Comment . Toxic Granulation Platelet Estimate Normal Platelet Morphology Normal Ovalocytes 1+ H Acanthocytes (Spur) Puncture Site Patient Temperature O2 Saturation ABG pH ABG pCO2 ABG pO2 ABG HCO3 ABG O2 Content ABG Base Excess ABG Methemoglobin Terrell Test Hemoglobin Carboxyhemoglobin O2 Delivery Device Vent Setting Inspired O2 Critical Value Sodium 138 Potassium 4.5 Chloride 101 Carbon Dioxide 26.6 Anion Gap 10 BUN 50 H Creatinine 1.46 H Estimated GFR 35 L POC Glucose Random Glucose 162 H Lactic Acid Calcium 8.3 L Phosphorus 3.6 Magnesium 2.1 D Total Bilirubin 0.3 Direct Bilirubin Indirect Bilirubin AST 19 ALT 15 Alkaline Phosphatase 77 Ammonia Total Creatine Kinase Troponin I Total Protein 5.4 L Albumin 2.1 L Amylase Lipase RBC Folate TSH Nasal Screen MRSA (PCR) Blood Type Blood Type Confirm Antibody Screen MTS Gel Crossmatch Result Diagrams: 02/24/18 05:00 02/24/18 05:00 Microbiology: Microbiology 02/22/18 20:15 Aerobic Blood Culture - Preliminary Blood - Peripheral No growth in 2 days Anaerobic Blood Culture - Preliminary No growth in 2 days 02/22/18 20:09 Aerobic Blood Culture - Preliminary Blood - Peripheral No growth in 2 days Anaerobic Blood Culture - Preliminary No growth in 2 days 02/22/18 23:00 Gram Stain - Final Sputum - Endotracheal Imaging: ITS Impressions Chest CT 02/23/18 00:00 CONCLUSION: 1. Spiculated 1 cm nodule in the right upper lobe suspicious for small malignancy. 2. Small bilateral pleural effusions with dependent atelectasis and consolidation in both lungs. 3. No pathologically enlarged lymph nodes are identified. Moderate coronary calcification. Soft Tissue Neck CT 02/23/18 00:00 CONCLUSION: 1. Patient intubated. No adenopathy or abnormal fluid collections are seen in the neck. Lung apices are clear except for some scarring. Left central line in internal jugular vein. Venous Doppler Study 02/23/18 00:00 CONCLUSION: 1. The study is negative for bilateral lower extremity deep venous thrombosis. Chest X-Ray 02/23/18 06:03 CONCLUSION: 1. Left IJ central venous catheter now in place. No evidence of pneumothorax. 2. No change in left greater than right lung base opacity. Procedures: 02/13/2018. 1. Laparoscopic gastrojejunostomy tube placement 2. Laparoscopic lysis of adhesions 02/22 intubated 02/23 IJ placement Assessment and Plan - Disease Oriented Problem List (1) Septic shock (2) Aspiration pneumonia (3) Acute respiratory failure (4) BETSEY (acute kidney injury) (5) Protein-calorie malnutrition, severe (6) Acute adjustment disorder with depressed mood (7) History of laryngeal cancer Comment: Diagnosed in 2014 status post chemotherapy and radiation. (8) Hypothyroidism (9) Barretts esophagus (10) Arthritis - Symptom Scale (1) Debility, unspecified 0-10 Scale: Unable to quantify (2) Pain 0-10 Scale: Unable to quantify (3) Dyspnea 0-10 Scale: Unable to quantify (4) Dysphagia 0-10 Scale: Unable to quantify Pertinent Non-Medical Issues: Psychosocial: Patient is originally from [place]. She has 4 brothers and 2 sisters. She moved to [place] approximately 40 years ago. Patient was for 18 years and then . She and her had 3 sons (Alireza, Sagar and Cameron). Alireza is a physicians diagnostic assistant and lives in [place]. Adalid and Cameron live in [place]. Per patient, Cameron was born with "autism" and live in a prison Spiritual: Religion syed Legal: Patient's son, Alireza Whitten, is the designated healthcare surrogate decision maker. Ethical issues impacting care: No known ethical issues impacting care at this time. 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 She has had an acute decline over the past 6 months as evidenced by progressively increased weakness, weight loss, worsening dysphagia and coughing with thin liquids. She reports that she feels she is getting stronger status post having G-J-tube replaced on 02/13/2018. Hospital course has been complicated by possible pneumonia; patient was started on Levaquin. Pt also sufferered respiratory distress and was intubated and transferred to [facility], suspected aspiration PNA. At this time it is unclear if the patient will regain some of her strength/functional status or experience ongoing complications and decline Code Status: Full Code Plan: * FULL CODE * Decision-making: Patient currently shows insight and judgment related to her medical conditions. In the event that she loses capacity for medical decision- making, she has designated her son (Alireza) as the healthcare surrogate decision maker. * AGGRESSIVE GOALS. Patient states that she wants to get better/stronger. She is now amenable to SNF placement for rehab at discharge. 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 EGD with esophageal dilatation was done on 07/01/2017. Patient had a G/J-tube but that came out in May,. Now with worsening dysphasia; coughing after swallowing thin liquids. A modified barium swallow was performed with speech pathology patient was given a variety of liquids to swallow which revealed moderate silent aspiration. GJ tube was replaced on 02/13/2017. Had poss episode aspiration, was intubated. TF running 50 ml/hr = Debility: Patient verbalizing aggressive goals wanting to get better/stronger. Per PT note, patient was able to ambulate within her hospital room while holding onto the IV pole; PT made recommendations that the patient be discharged home with home health care for functional training. However, patient's son does not feel she is strong enough to go home at this time and wants her to be placed in a correction facility initially for rehab. Patient was previously refusing placement, but after speaking to her son earlier today she Is now amenable to SNF placement for rehab if that is an option. =Dyspnea: 7/7 had respiratory distress, poss 2/2 aspiration, PNA. Intubated on vent, awake and responsive. Reportedly was difficult intubation and physicial noted supraglottic mass. CT neck essentially negative. CT chest shows 1cm nodule right upper lung lobe. Extubation pending ENT eval . Per family request, requested radiology perform comparison studies for CT Neck, chest. =Pain: 2/2 lines, bedbound status. nursing pain scales reflect score 0. pt c/o pain in back, buttocks, heels. Pillow provided under heels. Pt on fentanyl drip. * Palliative care will continue to follow this patient throughout her hospitalization to establish trust, assist with symptom management and clarification of medical treatment goals. . Attestation Attestation: To help prompt me to consider important information that might be impacting today's encounter and assessment, information from prior notes written by myself or my colleagues may have been "brought forward" into today's note. My signature on this note, however, is an attestation that I personally performed the exam, history, and/or decision-making noted today, and, unless otherwise indicated, the interactions with patient, family, and staff as well as the review of records all occurred today. I also attest that the listed assessment and stated plan reflect my best clinical judgment today based on the combination of historical information, prior notes, and today's exam/ interactions. When time spent is documented, it refers only to time spent today by the signer, or if indicated, combined time spent today by collaborating physician/nurse practitioner.
--- NOTE | 2018-02-24 17:48 | CT ---
EXAM DATE: 02/24/2018 5:33 PM EDT AGE/SEX: 72 years / Female INDICATIONS: Dysphagia. Evaluate for supraglottic mass. CLINICAL DATA: This is the patient's initial encounter. Patient reports that signs and symptoms have been present for 1 day and indicates a pain score of Nonresponsive. MEDICAL/SURGICAL HISTORY: . 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 Radiation and chemotherapy. Tonsillectomy. RADIATION DOSE: 22.95 CTDI (mGy) COMPARISON: No prior exams available for comparison. TECHNIQUE: Helical acquisition was performed using a multirow detector CT scanner during the adminis tration of 50 ml Visipaque 320 (iodixanol) nonionic water-soluble contrast as a single exam dose. U sing automated exposure control and adjustment of the mA and/or kV according to patient size, radiati on dose was kept as low as reasonably achievable to obtain optimal diagnostic quality images. DICOM format image data is available electronically for review and comparison. FINDINGS: Examination of the skull base demonstrates no evidence of deep infiltrating mucosal lesion. The oroph arynx, hypopharynx, glottic and subglottic airway demonstrate no abnormality. Endotracheal tube is in place. Examination of the neck for adenopathy demonstrates no abnormally large lymph nodes by CT cri teria. The thyroid gland demonstrates no abnormality. Lung apices demonstrate no evidence of pulmonary nodule. Bone windows are unremarkable. A left sided internal jugular vein catheter is in place without pneumothorax with its tip in the superior vena cav a. CONCLUSION: Unremarkable CT scan of the neck. No masses are identified. Endotracheal tube in place Electronically signed by: Tristan Bautista MD 02/24/2018 5:46 PM EDT
[2018-02-25] MEDS: MethylPREDNISolone Sod Succinate Inj 125 MG/2 ML Vial IV.PUSH SCH ×4 (00:05→23:58)
[2018-02-25] MEDS: Insulin NovoLOG Aspart Correctional Sugar Inj SQ SCH ×4 (00:08→23:59)
[2018-02-25] MEDS: Oral Hygiene Kit OROPHARYNG SCH ×3 (00:09→16:02)
[2018-02-25] MEDS: [UNRECOGNIZED DRUG - SUPPLY] OROPHARYNG SCH ×3 (00:09→16:03)
[2018-02-25] MEDS: Levothyroxine 100 MCG Tablet PO SCH (05:25)
[2018-02-25] MEDS: Chlorhexidine Gluconate 2% 1 Pack (2 Cloths) TOPICAL SCH (06:20)
--- NOTE | 2018-02-25 06:43 | P.CON ---
History of Present Illness Service: ENT Consult date: 02/25/18 Reason for Consult: Intubated, hx laryngeal cancer Primary Care Provider: Ana M Mccallum Chief Complaint: Respiratory distress History of Present Illness: 72 year old female. 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 Was lost to follow up. Has had nutritional difficulties due to dysphagia. Was admitted with generalized weakness. Required intubation, which was described as difficult. Is awake and cooperative. CT neck shows no evidence of a lesion. ENT consulted for airway evaluation. [facility] - History History Provided By: Medical Record - Medical / Surgical Hx Neg / Unobtainable Medical Problems Denied: Unable to Obtain (Reviewed EMR :Supraglottic Squamous Cell CA of the larynx s/p radiation and chemotherapy) - Medical History Medical History: Medical History (Last Reviewed 02/25/18 @ 06:36 by Alireza Perrin MD) Arthritis Barretts esophagus GERD (gastroesophageal reflux disease) Hypothyroidism 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 - Surgical History Surgical History: Surgical History (Last Reviewed 02/25/18 @ 06:36 by Alireza Perrin MD) History of cholecystectomy History of esophagogastroduodenoscopy (EGD) History of hernia repair History of tonsillectomy and adenoidectomy - Family History Family History: Family History (Last Reviewed 02/25/18 @ 06:36 by Alireza Perrin MD) Mother Breast cancer Father Heart problem - Tobacco History Tobacco Use In Past 30 Days: Yes (Quit in 2014; restarted 6 months ago and quit in recent weeks) Smoking Status: Former smoker Tobacco Type: Cigarettes years: 30 - Alcohol History How Often Do You Have a Drink Containing Alcohol: 2 to 3 times a week - Substance Use History Substance History: No History of Abuse Medications and Allergies Active Medications: Active Medications Acetaminophen (Tylenol Liq) 650 mg PO Q6H PRN PRN Reason: FEVER Albuterol (Duoneb Neb (Ann)) 1 ampul NEB Q4HR NEB ANN Last Admin: 02/25/18 04:38 Dose: 1 ampul Albuterol (Albuterol Neb (Prn)) 2.5 mg NEB Q2HR NEB PRN PRN Reason: DYSPNEA Artificial Tears (Tears Naturale Opth Drops) 1 drop EACH EYE Q8H ANN Last Admin: 02/24/18 21:47 Dose: 1 drop Carbamide Peroxide (Debrox 6.5% Otic Drops) 5 drops RIGHT EAR Q12HR [facility] Last Admin: 02/24/18 21:47 Dose: 5 drops Cetirizine HCl (Zyrtec) 10 mg PO DAILY [facility] Last Admin: 02/24/18 10:41 Dose: 10 mg Chlorhexidine Gluconate (Peridex 0.12% Oral Kit) 15 ml OROPHARYNG BID@0800, 2000 [facility] Last Admin: 02/24/18 21:48 Dose: 15 ml Chlorhexidine Gluconate (Chlorhexidine 2% Cloth) 3 pack TOPICAL DAILY@0400 [facility] Stop: 02/28/18 03:59 Last Admin: 02/25/18 06:20 Dose: 3 pack Chlorhexidine Gluconate (Chlorhexidine 2% Cloth) 1 pack TOPICAL UNSCH PRN PRN Reason: Extra cloth needed Dextrose (D50w Vial) 50 ml IV.PUSH UNSCH PRN PRN Reason: PER HYPOGLYCEMIA PROTOCOL Escitalopram Oxalate (Lexapro) 20 mg J-TUBE DAILY [facility] Last Admin: 02/24/18 10:41 Dose: 20 mg Glucagon (Glucagon Inj) 1 mg OTHER PRN PRN PRN Reason: for Hypoglycemia Protocol Fentanyl (Fentanyl 10 Mcg/Ml Premix Drip) 2,500 mcg in 250 mls @ 5 mls/hr IV.SIG TITRATE PRN; Protocol PRN Reason: Per Protocol Last Titration: 02/23/18 06:40 Dose: 0 mcg/hr, 0 mls/hr Norepinephrine Bitartrate (Levophed-Dextrose 4 Mg/250 Ml Drip) 4 mg in 250 mls @ 7.5 mls/hr IV.SIG TITRATE PRN; Protocol PRN Reason: Per Protocol Last Titration: 02/24/18 16:40 Dose: 0 mcg/min, 0 mls/hr Norepinephrine Bitartrate (Levophed-Dextrose 4 Mg/250 Ml Drip) 4 mg in 250 mls @ 7.5 mls/hr IV.SIG TITRATE PRN; Protocol PRN Reason: Per Protocol Aztreonam 2 gm/ Sodium (Chloride) 100 mls @ 200 mls/hr IV.SIG Q8H [facility] Last Infusion: 02/25/18 00:33 Dose: Infused Metronidazole/Sodium Chloride (Flagyl 500 Mg Inj) 100 mls @ 100 mls/hr IV.SIG Q8H [facility] Last Admin: 02/25/18 05:24 Dose: 100 mls/hr Magnesium Sulfate Inj 4 gm/ (Sodium Chloride) 100 mls @ 50 mls/hr IV.SIG UNSCH PRN PRN Reason: For Magnesium 0.9 - 1.1 mg/dL Magnesium Sulfate Inj 2 gm/ (Sodium Chloride) 100 mls @ 50 mls/hr IV.SIG UNSCH PRN PRN Reason: For Magnesium 1.2 - 1.6 mg/dL Last Infusion: 02/23/18 13:32 Dose: Infused Potassium Chloride (Kcl 40 Meq Premix Inj) 40 meq in 100 mls @ 25 mls/hr IV.SIG Q2H PRN PRN Reason: For Potassium 2.8 - 3.2 mEq/L Potassium Chloride (Kcl 40 Meq Premix Inj) 40 meq in 100 mls @ 25 mls/hr IV.SIG UNSCH PRN PRN Reason: For Potassium 3.3 - 3.5 mEq/L Potassium Chloride (Kcl 20 Meq Premix Inj) 20 meq in 100 mls @ 50 mls/hr IV.SIG Q2H PRN PRN Reason: For Potassium 2.8 - 3.2 mEq/L Potassium Phosphate 30 mmol/ (Sodium Chloride) 260 mls @ 42 mls/hr IV.SIG UNSCH PRN PRN Reason: SEE LABEL COMMENTS Sodium Phosphate 30 mmol/ (Sodium Chloride) 260 mls @ 42 mls/hr IV.SIG UNSCH PRN PRN Reason: For Phosphorus < 2.5 mg/dL Potassium Chloride (Kcl 20 Meq Premix Inj) 20 meq in 100 mls @ 50 mls/hr IV.SIG Q2H PRN PRN Reason: For Potassium 3.3 - 3.5 mEq/L Lactated Ringer's (Lr 1000 Ml Inj) 1,000 mls @ 84 mls/hr IV.SIG .[id number] [facility] Last Admin: 02/24/18 16:40 Dose: 84 mls/hr Insulin Aspart (Novolog Insulin Suppl Scale Inj) 0 unit SQ Q6HR [facility]; Protocol Last Admin: 02/25/18 06:19 Dose: 1 unit Lansoprazole (Prevacid Solutab) 15 mg G-TUBE DAILY [facility] Last Admin: 02/24/18 10:41 Dose: 15 mg Levothyroxine Sodium (Synthroid) 100 mcg PO DAILY@0600 [facility] Last Admin: 02/25/18 05:25 Dose: 100 mcg Magnesium Oxide (Mag-Ox) 800 mg PO UNSCH PRN PRN Reason: For Magnesium 1.2 - 1.6 mg/dL Methylprednisolone Sodium Succinate (Solumedrol Inj) 60 mg IV.PUSH Q6HR [facility] Last Admin: 02/25/18 05:24 Dose: 60 mg Midazolam HCl (Versed Inj) 1 mg IV.PUSH Q1H PRN PRN Reason: SEDATION Miscellaneous (Pill Splitter) 1 each OTHER UNSCH [facility] Morphine Sulfate (Morphine Inj) 2 mg IV.PUSH Q3H PRN PRN Reason: PAIN>4 Naloxone HCl (Narcan Inj) 0.4 mg IV.PUSH UNSCH PRN PRN Reason: SEE LABEL COMMENTS Nitroglycerin (Nitrostat Sl) 0.4 mg SL Q5M PRN PRN Reason: CHEST PAIN Potassium Bicarb/Potassium Chloride (K-Lyte Cl Eff) 50 meq PO UNSCH PRN PRN Reason: For Potassium 3.3 - 3.5 mEq/L Potassium Phosphate (K-Phos Original) 2,000 mg PO Q4H PRN PRN Reason: Phosphorus Less Than 2.5 mg/dL Potassium Phosphate (K-Phos Original) 2,000 mg PO UNSCH PRN PRN Reason: SEE LABEL COMMENTS Prochlorperazine Edisylate (Compazine Inj) 5 mg IV.PUSH Q4H PRN PRN Reason: NAUSEA OR VOMITING Last Admin: 02/17/18 17:37 Dose: 5 mg Sodium Chloride (Sodium Chloride 3% Neb) 2 ml NEB Q4HR NEB [facility] Stop: 02/27/18 19:59 Last Admin: 02/25/18 04:38 Dose: 2 ml Sodium Chloride (Ns Flush) 2 ml IV.FLUSH UNSCH PRN PRN Reason: FLUSH AFTER USING IV ACCESS Last Admin: 02/23/18 08:57 Dose: 2 ml Sodium Chloride (Ns Flush) 2 ml IV.FLUSH BID [facility] Last Admin: 02/24/18 21:49 Dose: 2 ml Terbutaline Sulfate (Brethine Inj) 1 mg SQ UNSCH PRN PRN Reason: For Extravasation Terbutaline Sulfate (Brethine Inj) 1 mg SQ UNSCH PRN PRN Reason: For Extravasation Allergies Allergy/AdvReac Type Severity Reaction Status Date / Time epinephrine Allergy Severe TACHYCARDIA Verified 02/21/18 08:40 penicillin G Allergy Severe Hives Verified 02/21/18 08:40 peanut Allergy Intermediate ANAPHYLAXIS Verified 02/21/18 08:40 SOY Allergy Severe ANAPHYLAXIS Uncoded 05/15/16 12:23 COOKED LEGUMES Allergy Intermediate ANAPHYLAXIS Uncoded 06/07/14 07:25 Home Medications Medication Instructions Recorded Confirmed Type cetirizine 10 mg PO DAILY 02/15/18 02/15/18 History escitalopram oxalate 20 mg PO DAILY 02/15/18 02/15/18 History levothyroxine 100 mcg PO DAILY 02/15/18 02/15/18 History omeprazole 20 mg PO DAILY 02/15/18 02/15/18 History Physical Exam Vital signs: Vital Signs 02/24/18 06:45 02/24/18 07:00 02/24/18 07:15 Temperature Pulse Rate 61 61 61 Respiratory Rate 14 20 18 Blood Pressure 118/57 L 115/58 L 115/59 L Pulse Oximetry 98 99 99 02/24/18 07:28 02/24/18 07:30 02/24/18 07:32 Temperature Pulse Rate 62 61 Respiratory Rate 17 20 17 Blood Pressure 116/57 L Pulse Oximetry 99 98 02/24/18 07:45 02/24/18 08:00 02/24/18 08:15 Temperature 98.4 F Pulse Rate 64 64 64 Respiratory Rate 20 24 23 Blood Pressure 123/76 114/60 119/63 Pulse Oximetry 97 99 99 02/24/18 08:30 02/24/18 08:45 02/24/18 09:00 Temperature Pulse Rate 65 62 62 Respiratory Rate 22 18 17 Blood Pressure 116/59 L 116/57 L 113/53 L Pulse Oximetry 99 99 99 02/24/18 09:15 02/24/18 09:30 02/24/18 09:45 Temperature Pulse Rate 62 63 64 Respiratory Rate 16 17 18 Blood Pressure 115/57 L 117/59 L 114/59 L Pulse Oximetry 99 99 99 02/24/18 10:00 02/24/18 10:15 02/24/18 10:30 Temperature Pulse Rate 60 65 61 Respiratory Rate 17 20 16 Blood Pressure 113/53 L 118/60 105/55 L Pulse Oximetry 99 100 99 02/24/18 10:45 02/24/18 11:00 02/24/18 11:15 Temperature Pulse Rate 61 62 62 Respiratory Rate 13 13 14 Blood Pressure 117/59 L 105/51 L 112/54 L Pulse Oximetry 99 99 99 02/24/18 11:16 02/24/18 11:30 02/24/18 12:00 Temperature Pulse Rate 61 61 62 Respiratory Rate 17 12 Blood Pressure 110/53 L Pulse Oximetry 99 02/24/18 14:00 02/24/18 14:35 02/24/18 14:40 Temperature Pulse Rate 60 60 61 Respiratory Rate 15 21 Blood Pressure 109/57 L 104/51 L Pulse Oximetry 99 99 02/24/18 14:45 02/24/18 14:50 02/24/18 14:55 Temperature Pulse Rate 62 61 61 Respiratory Rate 14 12 14 Blood Pressure 116/58 L 111/54 L 110/55 L Pulse Oximetry 99 99 99 02/24/18 15:00 02/24/18 15:05 02/24/18 15:10 Temperature Pulse Rate 60 60 60 Respiratory Rate 12 15 12 Blood Pressure 107/50 L 107/53 L 113/58 L Pulse Oximetry 99 99 99 02/24/18 15:15 02/24/18 15:20 02/24/18 15:25 Temperature Pulse Rate 61 61 60 Respiratory Rate 11 L 12 12 Blood Pressure 115/59 L 115/57 L 113/57 L Pulse Oximetry 99 99 99 02/24/18 15:30 02/24/18 15:35 02/24/18 15:40 Temperature Pulse Rate 61 66 62 Respiratory Rate 12 19 14 Blood Pressure 109/58 L 110/58 L 113/57 L Pulse Oximetry 99 99 99 02/24/18 15:43 02/24/18 15:45 02/24/18 15:47 Temperature Pulse Rate 65 61 Respiratory Rate 11 L 18 10 L Blood Pressure 111/54 L Pulse Oximetry 100 99 02/24/18 15:50 02/24/18 15:55 02/24/18 16:00 Temperature Pulse Rate 61 59 L 61 Respiratory Rate 16 12 14 Blood Pressure 117/58 L 109/50 L 108/54 L Pulse Oximetry 99 99 99 02/24/18 16:05 02/24/18 16:10 02/24/18 16:15 Temperature Pulse Rate 61 61 61 Respiratory Rate 14 12 13 Blood Pressure 113/56 L 113/57 L 111/59 L Pulse Oximetry 99 99 99 02/24/18 16:20 02/24/18 16:25 02/24/18 16:30 Temperature Pulse Rate 59 L 59 L 68 Respiratory Rate 11 L 11 L 20 Blood Pressure 114/58 L 109/57 L 112/58 L Pulse Oximetry 99 99 99 02/24/18 16:35 02/24/18 18:00 02/24/18 20:00 Temperature 97.9 F Pulse Rate 63 65 62 Respiratory Rate 14 19 Blood Pressure 110/55 L 117/57 L Pulse Oximetry 99 99 02/24/18 20:38 02/24/18 22:00 02/25/18 00:00 Temperature 98 F Pulse Rate 60 60 62 Respiratory Rate 14 16 Blood Pressure 109/53 L Pulse Oximetry 98 98 02/25/18 01:13 02/25/18 02:00 02/25/18 04:00 Temperature 97.8 F Pulse Rate 59 L 59 L 59 L Respiratory Rate 17 16 Blood Pressure 113/54 L Pulse Oximetry 98 98 02/25/18 04:39 02/25/18 06:00 Temperature Pulse Rate 58 L 60 Respiratory Rate 16 Blood Pressure Pulse Oximetry 99 Intake & Output 02/24/18 02/24/18 02/25/18 06:59 18:59 06:59 Intake Total 2605 / 2605 1200 / 1200 200 / 200 Output Total 495 / 495 185 / 1850 Balance 2109 / 2109 -650 / -650 200 / 200 Weight 71.8 kg 71.8 kg Intake: IV 1400 / 1400 1200 / 1200 200 / 200 Azactam Inj 2 GM In NS Inj 100 200 / 200 100 / 100 100 / 100 ML @ 200 mls/hr IV.SIG Q8H ANN Rx#:[id number] LR 1000 mL Inj 1,000 ML @ 84 1000 / 1000 1000 / 1000 mls/hr IV.SIG .[id number] ANN Rx#: [id number] Flagyl 500 MG Inj 100 ML @ 100 200 / 200 100 / 100 100 / 100 mls/hr IV.SIG Q8H ANN Rx#: [id number] Oral 0 / 0 Tube Feeding 77 / 77 Tube Irrigant 60 / 60 Water Bolus Amount 60 / 60 Other 1008 / 1008 Output: Urine 5 / 5 Emesis 200 / 200 Urine Amount (Catheter) 290 / 290 1850 / 1850 Indwelling Urethral Catheter 290 / 290 1849 Gastric Drainage 0 / 0 Left Upper Quadrant 0 / 0 Gastrojejunostomy Tube Other: # Voids 10 Date of Last Bowel Movement 02/21/18 02/21/18 02/24/18 # Bowel Movements 1 - Constitutional no acute distress, thin, cooperative - Routine HEENT Exam Head: Present: normocephalic, atraumatic Eye: Present: EOMI ENT: Present: mucous membranes moist, oropharynx clear, nares patent, septal deviation, external ear normal - Routine Neck Exam Present: supple, trachea midline. Absent: lymphadenopathy, tenderness, swelling - Routine Neurological Exam Present: alert - Urinary Catheter Management Indwelling Urethral Catheter Cath placed during this visit: yes Reason for continuing: Hourly intake/output Insertion date: 02/22/18 Insertion time: 20:00 Assessment and Plan - Plan 72 year old female, previous epiglottic tumor, post chemo and radiation. Intubated. CT shows no lesion. Flexible fiberoptic laryngoscopy was completed trans-nasal. Epiglottis is visible without evidence of tumor. There is post radiation scaring. There appears to be no tumor. This was a difficult intubation, most likely, due to post radiation scaring. The patient should be able to be extubated. There is a risk of obstruction however, due to post radiation changes. Best course would be to extubate with Anesthesia in attendance. If the patient fails extubation then would reintubate and consider tracheostomy. She may need a longer period to allow the edema from intubation to subside. A short course of steroids could help the edema.
[2018-02-25] MEDS: Chlorhexidine 0.12% Oral Kit 15 ML UDC OROPHARYNG SCH ×2 (08:24→20:48)
[2018-02-25] MEDS: Artificial Tears Opth Drops 15 ML Bottle EACH EYE SCH ×3 (08:25→20:48)
[2018-02-25] MEDS: Carbamide Peroxide 6.5% Otic Drops 15 ML Bottle RIGHT EAR SCH ×2 (08:25→20:48)
[2018-02-25] MEDS: Lansoprazole ODT 15 MG Tablet G-TUBE SCH (08:25)
--- NOTE | 2018-02-25 08:48 | P.PNCC ---
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 Hooper and Dr. Pineda with followup imaging negative for residual disease (05/2015, 09/2015). She was originally admitted to [facility] hospitalist service on 02/11/18 after she presented complaining of generalized weakness, anemia with hemoglobin of 6.3, dysphagia. She had a history of esophageal stricture that was dilated in June [address] Aly. She previously had G/J tube that became dislodged in May. She was lost to oncology followup for the last couple of years and had been having progressive difficulty with swallowing and cachexia. Modified barium swallow confirmed aspiration and she has undergone laparoscopic GJ placement 09/[address] Kraus. She has been n.p.o. and receiving continuous jejunal tube feeds. [facility], [facility] before 6 pm for respiratory distress and patient's sats were in 30s. Dr. Yates responded to [facility] and intubated patient with 8.0 ETT by Glidescope. Some foreign material was suctioned from supraglottic area and patient has significant secretions suctioned from lower airways concerning for aspiration. Post-intubation, she has hypotension with MAP 55-60. 02/23 Patient is intubated and sedated with Fentanyl infusion. On Levophed 3 mics. Lactic acid 1.4. 02/24 Remains intubated sedated, remains on 2 mcg/min of Levophed. Discussed with Dr. Yates who intubated the patient. Apparently had supraglottic mass, and intubation was difficult. Will get ENT eval, and CT neck 02/25: Tolerating CPAP well today, has good cuff leak. Seen by Dr. Augustine yesterday flexible fiberoptic laryngoscopy did not show any evidence of residual disease. 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 Objective Vital Signs / I&O: Vital Signs 02/24/18 09:00 02/24/18 09:15 02/24/18 09:30 Temperature Pulse Rate 62 62 63 Respiratory Rate 17 16 17 Blood Pressure 113/53 L 115/57 L 117/59 L Pulse Oximetry 99 99 99 07/09/18 09:45 02/24/18 10:00 02/24/18 10:15 Temperature Pulse Rate 64 60 65 Respiratory Rate 18 17 20 Blood Pressure 114/59 L 113/53 L 118/60 Pulse Oximetry 99 99 100 02/24/18 10:30 02/24/18 10:45 02/24/18 11:00 Temperature Pulse Rate 61 61 62 Respiratory Rate 16 13 13 Blood Pressure 105/55 L 117/59 L 105/51 L Pulse Oximetry 99 99 99 02/24/18 11:15 02/24/18 11:16 02/24/18 11:30 Temperature Pulse Rate 62 61 61 Respiratory Rate 14 17 12 Blood Pressure 112/54 L 110/53 L Pulse Oximetry 99 99 02/24/18 12:00 02/24/18 14:00 02/24/18 14:35 Temperature Pulse Rate 62 60 60 Respiratory Rate 15 Blood Pressure 109/57 L Pulse Oximetry 99 02/24/18 14:40 02/24/18 14:45 02/24/18 14:50 Temperature Pulse Rate 61 62 61 Respiratory Rate 21 14 12 Blood Pressure 104/51 L 116/58 L 111/54 L Pulse Oximetry 99 99 99 02/24/18 14:55 02/24/18 15:00 02/24/18 15:05 Temperature Pulse Rate 61 60 60 Respiratory Rate 14 12 15 Blood Pressure 110/55 L 107/50 L 107/53 L Pulse Oximetry 99 99 99 02/24/18 15:10 02/24/18 15:15 02/24/18 15:20 Temperature Pulse Rate 60 61 61 Respiratory Rate 12 11 L 12 Blood Pressure 113/58 L 115/59 L 115/57 L Pulse Oximetry 99 99 99 02/24/18 15:25 02/24/18 15:30 02/24/18 15:35 Temperature Pulse Rate 60 61 66 Respiratory Rate 12 12 19 Blood Pressure 113/57 L 109/58 L 110/58 L Pulse Oximetry 99 99 99 02/24/18 15:40 02/24/18 15:43 02/24/18 15:45 Temperature Pulse Rate 62 65 Respiratory Rate 14 11 L 18 Blood Pressure 113/57 L 111/54 L Pulse Oximetry 99 100 99 02/24/18 15:47 02/24/18 15:50 02/24/18 15:55 Temperature Pulse Rate 61 61 59 L Respiratory Rate 10 L 16 12 Blood Pressure 117/58 L 109/50 L Pulse Oximetry 99 99 02/24/18 16:00 02/24/18 16:05 02/24/18 16:10 Temperature Pulse Rate 61 61 61 Respiratory Rate 14 14 12 Blood Pressure 108/54 L 113/56 L 113/57 L Pulse Oximetry 99 99 99 02/24/18 16:15 02/24/18 16:20 02/24/18 16:25 Temperature Pulse Rate 61 59 L 59 L Respiratory Rate 13 11 L 11 L Blood Pressure 111/59 L 114/58 L 109/57 L Pulse Oximetry 99 99 99 02/24/18 16:30 02/24/18 16:35 02/24/18 18:00 Temperature Pulse Rate 68 63 65 Respiratory Rate 20 14 Blood Pressure 112/58 L 110/55 L Pulse Oximetry 99 99 02/24/18 20:00 02/24/18 20:38 02/24/18 22:00 Temperature 97.9 F Pulse Rate 62 60 60 Respiratory Rate 19 14 Blood Pressure 117/57 L Pulse Oximetry 99 98 02/25/18 00:00 02/25/18 01:13 02/25/18 02:00 Temperature 98 F Pulse Rate 62 59 L 59 L Respiratory Rate 16 17 Blood Pressure 109/53 L Pulse Oximetry 98 98 02/25/18 04:00 02/25/18 04:39 02/25/18 06:00 Temperature 97.8 F Pulse Rate 59 L 58 L 60 Respiratory Rate 16 16 Blood Pressure 113/54 L Pulse Oximetry 98 99 02/25/18 07:40 Temperature Pulse Rate Respiratory Rate 10 L Blood Pressure Pulse Oximetry 99 Intake & Output 02/24/18 02/25/18 02/25/18 18:59 06:59 18:59 Intake Total 1200 / 1200 1547 / 1547 Output Total 1850 / 1850 300 / 300 Balance -650 / -650 1247 / 1247 Weight 71.8 kg Intake: IV 1200 / 1200 200 / 200 Azactam Inj 2 GM In NS Inj 100 100 / 100 100 / 100 ML @ 200 mls/hr IV.SIG Q8H ANN Rx#:[id number] LR 1000 mL Inj 1,000 ML @ 84 1000 / 1000 mls/hr IV.SIG .[id number] ANN Rx#: [id number] Flagyl 500 MG Inj 100 ML @ 100 100 / 100 100 / 100 mls/hr IV.SIG Q8H ANN Rx#: [id number] Tube Feeding 1227 / 1227 Tube Irrigant 120 / 120 Output: Urine 300 / 300 Urine Amount (Catheter) 1849 Indwelling Urethral Catheter 1849 Other: Date of Last Bowel Movement 02/21/18 02/24/18 # Bowel Movements 0 Result Diagrams: 02/24/18 05:00 02/24/18 05:00 Objective Remarks: GENERAL: Patient is 72 yo intubated and sedated, appears comfortable wakes up easily SKIN: Warm and dry. HEAD: Normocephalic. EYES: No scleral icterus. No injection or drainage. NECK: Supple, trachea midline. No JVD or lymphadenopathy. Positive cuff leak CARDIOVASCULAR: Regular rate and rhythm without murmurs, gallops, or rubs. RESPIRATORY: Breath sounds equal bilaterally. No accessory muscle use. Tolerating CPAP good cuff leak GASTROINTESTINAL: Abdomen soft, non-tender, nondistended. MUSCULOSKELETAL: No cyanosis, or edema. BACK: Nontender without obvious deformity. No CVA tenderness. Neuro: Patient is awake alert moves all extremities spontaneously follows commands. No focal deficits Assessment and Plan - Problem List (1) Aspiration pneumonia Code(s): J69.0 - Pneumonitis due to inhalation of food and vomit Status: Acute (2) Acute respiratory failure Code(s): J96.00 - Acute respiratory failure, unspecified whether with hypoxia or hypercapnia Status: Acute (3) Septic shock Code(s): A41.9 - Sepsis, unspecified organism; R65.21 - Severe sepsis with septic shock Status: Acute (4) Dysphagia causing pulmonary aspiration with swallowing Code(s): R13.19 - Other dysphagia Status: Chronic (5) Esophageal stricture Code(s): K22.2 - Esophageal obstruction Status: Acute (6) Hypothyroidism Code(s): E03.9 - Hypothyroidism, unspecified Status: Chronic (7) Protein-calorie malnutrition, severe Code(s): E43 - Unspecified severe protein-calorie malnutrition Status: Chronic (8) Debility, unspecified Code(s): R53.81 - Other malaise Status: Chronic (9) BETSEY (acute kidney injury) Code(s): N17.9 - Acute kidney failure, unspecified Status: Acute (10) CKD (chronic kidney disease) stage 3, GFR 30-59 ml/min Code(s): N18.3 - Chronic kidney disease, stage 3 (moderate) Status: Chronic - Assessment and Plan Plan: NEURO: Discontinue all sedation RESP: Acute respiratory failure Aspiration pneumonia History of right tonsillar and epiglottic cancer Treated with chemo-radiation completed April 18, 2015. Ventilator bundle. DuoNeb every 4 hours. Albuterol every 2 hours as needed. Continue Solu-Medrol 60 mg IV every 6 hours. Chest x-ray bibasilar opacities. ETT position satisfactory. Antibiotics as per below. Patient tolerates CPAP trials, positive cuff leak plan for extubation today Dr. Yates described difficult intubation, see intubation note Appreciate consult from ENT Dr. Perrin. Flexible fiberoptic laryngoscopy did not show evidence of residual disease but scarring from radiation CV: Septic shock-resolved Off Levophed, discontinue LR, IV Lasix 40 mg 1 No prior Echo, will obtain. Troponin 0 0.06, will trend. Hold metoprolol due to hypotension. GI: Dysphagia Esophageal stricture Now status post G/J Severe chronic protein energy malnutrition. OG tube to low intermittent wall suction. Continue vital 1.5 at 65 mL/h via jejunostomy for nutrition recommendations. GI following, plan for outpatient esophageal dilation. FEN/RENAL: BETSEY overlying CKD Stage III O[address] in [address]. Monitor intake and output every hour.. Monitor electrolytes. Replace electrolytes as indicated per ICU electrolyte replacement protocol. IV Lasix as above ID: Aspiration pneumonia Septic shock Patient was started on Levaquin and p.o. Flagyl on 02/20. Has decompensated despite these and is now hypotensive. F/u cultures negative to date. Continue IV aztreonam, flagyl IV HEME/ENT: History of right tonsillar and epiglottic cancer Treated with chemo-radiation completed April 18, 2015. Follow-up imaging previously demonstrated no residual disease. ENT eval-no residual disease. Has been followed by Dr. Pineda. ENDO: Hypothyroidism Continue Synthroid 100 mcg via tube. daily Acute stress hyperglycemia Monitor bedside glucose every 6 hours initiate low-dose insulin sliding scale as indicated. PROPH: SCDs/heparin subcu for DVT prophylaxis-hold heparin for 24 hours. Lansoprazole for stress ulcer prophylaxis. ACCESS: Left IJ central venous line placement 02/23/18 Critically ill but stabilizing Full code. Level 3 (2) Acute respiratory failure Qualifiers: Respiratory failure complication: hypoxia Qualified Code(s): J96.01 - Acute respiratory failure with hypoxia
[2018-02-25] MEDS: Aztreonam Inj 2 GM in Sodium Chloride 0.9% Inj 100 ML IV.SIG SCH (16:02)
[2018-02-26] MEDS: Oral Hygiene Kit OROPHARYNG SCH (00:22)
[2018-02-26] MEDS: Artificial Tears Opth Drops 15 ML Bottle EACH EYE SCH ×3 (03:14→18:00)
[2018-02-26] MEDS: Levothyroxine 100 MCG Tablet PO SCH (04:59)
--- NOTE | 2018-02-26 05:25 | XR ---
EXAM DATE: 02/26/2018 5:09 AM EDT AGE/SEX: 72 years / Female INDICATIONS: Short of breath. CLINICAL DATA: This is the patient's subsequent encounter. Patient reports that signs and symptoms h ave been present for 4 - 6 days and indicates a pain score of Nonresponsive. MEDICAL/SURGICAL HISTORY: Non-responsive. Non-responsive. COMPARISON: [facility] [place]ST [place]/O CONTRAST, 02/23/2018. . FINDINGS: Left IJ central line with tip in the SVC. Bilateral lower lobe airspace consolidation. Nodules noted on CT are not as well demonstrated on radiograph. Cardiomediastinal contours are within normal limits . Bony thorax is intact. CONCLUSION: 1. No significant interval change. 2. Stable bilateral lower lobe airspace consolidation. Electronically signed by: Chris Vieira MD 02/26/2018 5:24 AM EDT
[2018-02-26 06:58] LABS: Hematocrit 29.9 % (35.0-46.0); Hemoglobin 9.7 gm/dL (11.6-15.3); Mean Corpuscular HGB Conc 32.6 % (32.0-36.0); Mean Corpuscular Hemoglobin 30.5 pg (27.0-34.0); Mean Corpuscular Volume 93.8 fL (80.0-100.0); Mean Platelet Volume 10.7 fL (7.0-11.0); Platelet Count 254 th/mm3 (150-450); Red Blood Count 3.18 mil/mm3 (4.00-5.30); Red Cell Distribution Width 19.1 % (11.6-17.2); White Blood Count 16.5 th/mm3 (4.0-11.0)
[2018-02-26] MEDS: Insulin NovoLOG Aspart Correctional Sugar Inj SQ SCH ×4 (06:58→17:58)
[2018-02-26] MEDS: MethylPREDNISolone Sod Succinate Inj 125 MG/2 ML Vial IV.PUSH SCH (07:10)
[2018-02-26 07:16] LABS: Anion Gap 9 meq/L (5-15); Aspartate Aminotransferase 21 U/L (15-37); Blood Urea Nitrogen 52 mg/dL (7-18); Calcium 8.7 mg/dL (8.5-10.1); Carbon Dioxide 30.5 meq/L (21.0-32.0); Chloride 103 meq/L (98-107); Glomerular Filtration Rate 43 mL/min (>89); Glucose,Random 170 mg/dL (74-106); Potassium 4.2 meq/L (3.5-5.1); Sodium 142 meq/L (136-145)
[2018-02-26 07:17] LABS: Alanine Aminotransferase 16 U/L (10-53)
[2018-02-26 07:19] LABS: Alkaline Phosphatase 75 U/L (45-117); Total Protein 5.5 g/dL (6.4-8.2)
--- NOTE | 2018-02-26 07:47 | P.PNCC ---
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 Hooper and Dr. Pineda with followup imaging negative for residual disease (05/2015, 09/2015). She was originally admitted to [facility] hospitalist service on 02/11/18 after she presented complaining of generalized weakness, anemia with hemoglobin of 6.3, dysphagia. She had a history of esophageal stricture that was dilated in June [address] Aly. She previously had G/J tube that became dislodged in May. She was lost to oncology followup for the last couple of years and had been having progressive difficulty with swallowing and cachexia. Modified barium swallow confirmed aspiration and she has undergone laparoscopic GJ placement 09/[address] Kraus. She has been n.p.o. and receiving continuous jejunal tube feeds. [facility] distress and patient's sats were in 30s. Dr. Yates [facility] and intubated patient with 8.0 ETT by Glidescope. Some foreign material was suctioned from supraglottic area and patient has significant secretions suctioned from lower airways concerning for aspiration. Post-intubation, she has hypotension with MAP 55-60. 02/23 Patient is intubated and sedated with Fentanyl infusion. On Levophed 3 mics. Lactic acid 1.4. 02/24 Remains intubated sedated, remains on 2 mcg/min of Levophed. Discussed with Dr. Yates who intubated the patient. Apparently had supraglottic mass, and intubation was difficult. Will get ENT eval, and CT neck 02/25: Tolerating CPAP well today, has good cuff leak. Seen by Dr. Augustine yesterday flexible fiberoptic laryngoscopy did not show any evidence of residual disease. 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 02/26: Extubated yesterday, tolerating well. No stridor breathing comfortably. Creatinine slightly improved. Leukocytosis most likely steroid-induced Objective Vital Signs / I&O: Vital Signs 02/25/18 08:00 02/25/18 08:46 02/25/18 09:00 Temperature Pulse Rate 75 60 77 Respiratory Rate 21 27 H Blood Pressure 143/65 H 142/65 H Pulse Oximetry 98 96 92 L 02/25/18 10:00 02/25/18 11:00 02/25/18 11:17 Temperature Pulse Rate 64 63 66 Respiratory Rate 22 18 15 Blood Pressure 106/54 L 118/58 L Pulse Oximetry 93 L 95 02/25/18 12:00 02/25/18 13:00 02/25/18 14:00 Temperature 98.2 F Pulse Rate 65 66 66 Respiratory Rate 21 27 H 19 Blood Pressure 118/58 L 130/61 153/64 H Pulse Oximetry 96 93 L 95 02/25/18 15:00 02/25/18 15:01 02/25/18 15:18 Temperature Pulse Rate 67 66 68 Respiratory Rate 21 20 16 Blood Pressure 114/57 L Pulse Oximetry 99 98 02/25/18 16:00 02/25/18 17:00 02/25/18 18:00 Temperature Pulse Rate 65 66 66 Respiratory Rate 30 H 19 29 H Blood Pressure 114/57 L 131/63 117/55 L Pulse Oximetry 94 L 97 98 02/25/18 19:59 02/25/18 20:00 02/25/18 22:00 Temperature 98.1 F Pulse Rate 66 63 66 Respiratory Rate 17 17 Blood Pressure 116/56 L Pulse Oximetry 96 02/25/18 23:34 02/26/18 00:00 02/26/18 02:00 Temperature 97.5 F L Pulse Rate 66 93 H 72 Respiratory Rate 14 Blood Pressure 122/59 L Pulse Oximetry 02/26/18 02:49 02/26/18 03:34 02/26/18 04:06 Temperature 97.4 F L Pulse Rate 72 67 68 Respiratory Rate 15 18 Blood Pressure 121/58 L Pulse Oximetry 02/26/18 06:00 02/26/18 07:35 Temperature Pulse Rate 69 66 Respiratory Rate 19 Blood Pressure Pulse Oximetry 95 Intake & Output 02/25/18 02/26/18 02/26/18 18:59 06:59 18:59 Intake Total 1388 / 1388 875 / 875 Output Total 1300 / 1300 425 / 425 Balance 88 / 88 450 / 450 Weight 71 kg Intake: Oral 0 / 0 250 / 250 Tube Feeding 200 / 200 625 / 625 Tube Irrigant 120 / 120 Water Bolus Amount 60 / 60 Other 1008 / 1008 Output: Urine 300 / 300 425 / 425 Emesis 200 / 200 Urine Amount (Catheter) 800 / 800 Indwelling Urethral Catheter 800 / 800 Gastric Drainage 0 / 0 Left Upper Quadrant 0 / 0 Gastrojejunostomy Tube Other: # Voids 10 Date of Last Bowel Movement 02/24/18 02/24/18 # Bowel Movements 0 Result Diagrams: 02/26/18 05:32 02/26/18 05:32 Objective Remarks: GENERAL: Patient is 72 yo lying in bed appears comfortable SKIN: Warm and dry. HEAD: Normocephalic. EYES: No scleral icterus. No injection or drainage. NECK: Supple, trachea midline. No JVD or lymphadenopathy. CARDIOVASCULAR: Regular rate and rhythm without murmurs, gallops, or rubs. RESPIRATORY: Breath sounds equal bilaterally. No accessory muscle use. GASTROINTESTINAL: Abdomen soft, non-tender, nondistended. MUSCULOSKELETAL: No cyanosis, or edema. Neuro: AO x3. Patient is awake alert moves all extremities spontaneously follows commands. No focal deficits Assessment and Plan - Problem List (1) Aspiration pneumonia Code(s): J69.0 - Pneumonitis due to inhalation of food and vomit Status: Acute (2) Acute respiratory failure Code(s): J96.00 - Acute respiratory failure, unspecified whether with hypoxia or hypercapnia Status: Acute (3) Septic shock Code(s): A41.9 - Sepsis, unspecified organism; R65.21 - Severe sepsis with septic shock Status: Acute (4) Dysphagia causing pulmonary aspiration with swallowing Code(s): R13.19 - Other dysphagia Status: Chronic (5) Esophageal stricture Code(s): K22.2 - Esophageal obstruction Status: Acute (6) Hypothyroidism Code(s): E03.9 - Hypothyroidism, unspecified Status: Chronic (7) Protein-calorie malnutrition, severe Code(s): E43 - Unspecified severe protein-calorie malnutrition Status: Chronic (8) Debility, unspecified Code(s): R53.81 - Other malaise Status: Chronic (9) BETSEY (acute kidney injury) Code(s): N17.9 - Acute kidney failure, unspecified Status: Acute (10) CKD (chronic kidney disease) stage 3, GFR 30-59 ml/min Code(s): N18.3 - Chronic kidney disease, stage 3 (moderate) Status: Chronic - Assessment and Plan Plan: NEURO: Discontinue all sedation Morphine as needed for pain RESP: Acute respiratory failure Aspiration pneumonia History of right tonsillar and epiglottic cancer Treated with chemo-radiation completed April 18, 2015. DuoNeb every 4 hours. Albuterol every 2 hours as needed. Reduce Solu-Medrol to 60 mg IV every 12 hours. Extubated 02/25/2018, no stridor breathing comfortably Dr. Yates described previous difficult intubation, see intubation note Appreciate consult from ENT Dr. Perrin. Flexible fiberoptic laryngoscopy did not show evidence of residual disease but showed scarring from radiation CV: Septic shock-resolved IV Lasix 40 mg 1 given 02/25/2018 Restart metoprolol when clinically appropriate Hold metoprolol due to hypotension. GI: Dysphagia Esophageal stricture Now status post G/J Severe chronic protein energy malnutrition. Continue vital 1.5 at 65 mL/h via jejunostomy for nutrition recommendations. GI following, plan for outpatient esophageal dilation. FEN/RENAL: BETSEY overlying CKD Stage III [address]. Monitor intake and output every hour. Monitor electrolytes. Replace electrolytes as indicated per ICU electrolyte replacement protocol. ID: Aspiration pneumonia Septic shock F/u cultures negative to date. Continue IV aztreonam, discontinue Flagyl IV HEME/ENT: History of right tonsillar and epiglottic cancer Treated with chemo-radiation completed April 18, 2015. Follow-up imaging previously demonstrated no residual disease. ENT eval-no residual disease. Has been followed by Dr. Pineda. ENDO: Hypothyroidism Continue Synthroid 100 mcg via tube. daily Acute stress hyperglycemia Monitor bedside glucose every 6 hours initiate low-dose insulin sliding scale as indicated. PROPH: SCDs/heparin subcu for DVT prophylaxis-hold heparin for 24 hours,. Lansoprazole for stress ulcer prophylaxis. ACCESS: Left IJ central venous line placement 02/23/18 Critically ill but stabilizing Full code. Level 2 Consult hospitalist to assume care in a.m. Continue ICU for 24 hours (2) Acute respiratory failure Qualifiers: Respiratory failure complication: hypoxia Qualified Code(s): J96.01 - Acute respiratory failure with hypoxia
[2018-02-26] MEDS: MethylPREDNISolone Sod Succinate Inj 40 MG/ML Vial IV.PUSH SCH ×2 (09:46→20:34)
[2018-02-26] MEDS: Lansoprazole ODT 15 MG Tablet G-TUBE SCH (09:46)
[2018-02-26] MEDS: Carbamide Peroxide 6.5% Otic Drops 15 ML Bottle RIGHT EAR SCH (09:47)
[2018-02-26] MEDS: Chlorhexidine 0.12% Oral Kit 15 ML UDC OROPHARYNG SCH (11:32)
[2018-02-26] MEDS: Heparin - SQ 10,000 UNITS/ML Vial SQ SCH (14:31)
--- NOTE | 2018-02-26 14:55 | P.DIET ---
Nutritional Evaluation Type of nutrition evaluation: follow-up Nutrition consult regarding: Tube Feeding Objective - Diagnosis Anemia - Objective % IBW: 118 Body Weight Used for Calculations: Actual Energy Needs - Lower Range (kCal/kg): 30 Energy Needs - Upper Range (kCal/kg): 35 Lower Limit kCal/kg (kCals): 1,923 Upper Limit kCal/kg (kCals): 2,244 Lower Limit Protein Factor (Grams per Kg): 1.3 Upper Limit Protein Factor (Grams per Kg): 1.6 Lower Protein Needs (Protein): 83 Upper Protein Needs (Protein): 103 Fluid Factor (ml/kg): 33 Estimated Fluid Needs (ml): 2,244 Dietitian Reviewed in Medical Record: Curent medications, Intake & Output, Labs , Tube feeding Diet Order: TF only Objective Comments: Pt's nutritional needs based on 64.1kg PMH: Supraglottic Squamous Cell CA of the larynx s/p radiation and chemotherapy , GERD, Arthritis, Hypothyroidism, Rendon's Esophagus Meds include: Synthroid Labs include: WBC 16.5, Hgb 9.7, Hct 29.9, Cr 1.23, Glu 170, POC Glu 207, 221, 204 Last BM 02/24 Feeding - Current Tube Feeding Tube Feeding Product: Vital 1.5 Tube Feeding Method: Pump Tube Feeding Rate: 65 Tube Feeding Route: J/G tube Current kCals Provided by Tube Feedin,310 Current Protein Provided by Tube Feeding (gPRO): 104 Medications That Affect Tube Feeding Run Time: Synthroid Total Time Off: 2 hours Current Free H2O Provided (m/l): 1,177 Assessment Assessment: Pt at nutritional risk r/t need for a TF for nutrition support. Pt with dysphasia, s/p G/J tube. TF Vital 1.5 is running at 65 ml/hr for 22 hrs, (hold for Synthroid) and pt is tolerating it well. Pt's nutritional needs as assessed above, TF is meeting her nutritional needs at this time. Noted pt extubated and doing well per MD note. Will continue to monitor TF, clinical course. Recommendations: TF Vital 1.5 with goal rate of 65 ml/hr for 22 hrs, hold for Synthroid Dietitian following Dietitian to Monitor: Lab values, Intake & Output, Tube feeding tolerance, Weight change
[2018-02-26] MEDS: Aztreonam Inj 2 GM in Sodium Chloride 0.9% Inj 100 ML IV.SIG SCH ×2 (15:32→20:34)
--- NOTE | 2018-02-26 17:05 | P.PNPAL ---
Reason for Visit Reason for visit: a. To assist with evaluation and management of symptoms including: debility, dysphagia, dyspnea, pain b. To assist medical decision maker(s) with: better understanding of current medical conditions; weighing benefits/burdens of medical treatment options; making medical treatment decisions. Subjective Subjective/Interval History: Ms. Henson is a 72-year-old female who presented to [facility] ED on 02/11/2018 progressively worsening generalized weakness that had become severe in the previous 2 days. 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 Hooper and Dr. Pineda. Patient stated she has difficulty swallowing and was coughing with liquids. She has a known history of esophageal stricture requiring dilatation. Patient previously had a J-G tube but it fell out in 2016. Since then, she had been drinking supplemental nutritional drinks but her insurance stopped paying for them last September. Patient reports she feels like she is getting amari and gaining weight s/p G-J-tube being replaced on 2017. Hospitalization has been complicated by patient's depression and intermittent suicidal ideation (now resolved), requiring psychiatric evaluation. Patient seen and examined in room today to follow up on debility, dysphagia, dyspnea, pain. No family at bedside. Patient was medically extubated on 02/25/18. She is breathing well, denies SOB. She is lying in bed, speaking with soft voice. She is tolerating tube feeding. CT soft tissue neck unremarkable. ENT, Dr. Perrin completed flexible fiberoptic laryngoscopy trans-nasal epiglottis without any visible evidence of tumor, post radiation scarring noted. He also recommended if patient fails extubation to reintubate and consider tracheostomy and a short course of steroids for the edema. Patient aware. She desires continued aggressive care stating "no more problems." Family/Friend Interactions: No family at bedside. Patient is capacitated to make her own health care decisions. Advance Directives Living Will: Copy in medical record Health Care Surrogate Name and Number: Alireza Whitten, son: [phone] or Documented care wishes:: Completed a living will is accessible in the patient's paper chart. Significant change in goals:: FULL CODE. Goals remain aggressive including reintubation if needed. Objective Vital Signs: Vital Signs 02/25/18 17:00 02/25/18 18:00 02/25/18 19:59 Temperature Pulse Rate 66 66 66 Respiratory Rate 19 29 H 17 Blood Pressure 131/63 117/55 L Pulse Oximetry 97 98 96 02/25/18 20:00 02/25/18 22:00 02/25/18 23:34 Temperature 98.1 F Pulse Rate 63 66 66 Respiratory Rate 17 14 Blood Pressure 116/56 L Pulse Oximetry 02/26/18 00:00 02/26/18 02:00 02/26/18 02:49 Temperature 97.5 F L Pulse Rate 93 H 72 72 Respiratory Rate Blood Pressure 122/59 L Pulse Oximetry 02/26/18 03:34 02/26/18 04:06 02/26/18 06:00 Temperature 97.4 F L Pulse Rate 67 68 69 Respiratory Rate 15 18 Blood Pressure 121/58 L Pulse Oximetry 02/26/18 07:35 02/26/18 08:00 02/26/18 10:00 Temperature 97.8 F Pulse Rate 66 69 73 Respiratory Rate 19 17 Blood Pressure 123/61 Pulse Oximetry 95 99 02/26/18 11:26 02/26/18 12:00 02/26/18 16:00 Temperature 97.5 F L 97.9 F Pulse Rate 73 104 H 75 Respiratory Rate 16 18 16 Blood Pressure 116/62 109/79 Pulse Oximetry 89 L 95 Intake & Output 02/25/18 02/26/18 02/26/18 18:59 06:59 18:59 Intake Total 1388 / 1388 875 / 875 Output Total 1300 / 1300 425 / 425 Balance 88 / 88 450 / 450 Weight 71 kg Intake: Oral 0 / 0 250 / 250 Tube Feeding 200 / 200 625 / 625 Tube Irrigant 120 / 120 Water Bolus Amount 60 / 60 Other 1008 / 1008 Output: Urine 300 / 300 425 / 425 Emesis 200 / 200 Urine Amount (Catheter) 800 / 800 Indwelling Urethral Catheter 800 / 800 Gastric Drainage 0 / 0 Left Upper Quadrant 0 / 0 Gastrojejunostomy Tube Other: # Voids 10 Date of Last Bowel Movement 02/24/18 02/24/18 02/24/18 # Bowel Movements 0 Physical Exam: CONSTITUTIONAL/GENERAL: This is a frail, elderly female patient in no acute distress. SKIN: No jaundice, rashes, or lesions. No wounds seen anteriorly. Skin temperature appropriate. Not diaphoretic. EYES: PERRL. ENT: Hearing grossly normal. Nose without bleeding or purulent drainage. Mucous membranes dry. CARDIOVASCULAR: RRR without murmurs, gallops, or rubs. RESPIRATORY/CHEST: Lungs clear. GASTROINTESTINAL: Abdomen soft, non-tender, mildly distended. No guarding. Bowel sounds present. MUSCULOSKELETAL: Extremities without clubbing, cyanosis, or edema. No mottling or clubbing. NEUROLOGICAL: Awake; Answers questions. Follows commands. PSYCHIATRIC: No obvious anxiety/agitation. No suicidal ideation. Diagnostic Tests Laboratory: Laboratory Results - last 72 hr 02/24/18 02/24/18 02/24/18 03:14 03:37 05:00 WBC 13.6 H RBC 3.08 L Hgb 9.6 L Hct 28.4 L MCV 92.4 MCH 31.3 MCHC 33.9 RDW 18.8 H Plt Count 297 D MPV 9.9 Prelim Diff (Auto) Slide review pending WBC Differential Manual diff final Seg Neuts % (Manual) 61 Band Neuts % (Manual) 11 H Lymphocytes % (Manual) 8 L Monocytes % (Manual) 15 H Metamyelocytes % (Man) 5 H Abs Neuts (Manual) 10.5 H Differential Comment . Platelet Estimate Normal Platelet Morphology Normal Ovalocytes 1+ H Sodium Potassium Chloride Carbon Dioxide Anion Gap BUN Creatinine Estimated GFR POC Glucose 105 174 H Random Glucose Calcium Phosphorus Magnesium Total Bilirubin AST ALT Alkaline Phosphatase Total Protein Albumin 02/24/18 02/24/18 02/24/18 05:00 18:40 23:58 WBC RBC Hgb Hct MCV MCH MCHC RDW Plt Count MPV Prelim Diff (Auto) WBC Differential Seg Neuts % (Manual) Band Neuts % (Manual) Lymphocytes % (Manual) Monocytes % (Manual) Metamyelocytes % (Man) Abs Neuts (Manual) Differential Comment Platelet Estimate Platelet Morphology Ovalocytes Sodium 138 Potassium 4.5 Chloride 101 Carbon Dioxide 26.6 Anion Gap 10 BUN 50 H Creatinine 1.46 H Estimated GFR 35 L POC Glucose 176 H 220 H Random Glucose 162 H Calcium 8.3 L Phosphorus 3.6 Magnesium 2.1 D Total Bilirubin 0.3 AST 19 ALT 15 Alkaline Phosphatase 77 Total Protein 5.4 L Albumin 2.1 L 02/25/18 02/25/18 02/26/18 06:14 23:50 05:32 WBC 16.5 H RBC 3.18 L Hgb 9.7 L Hct 29.9 L MCV 93.8 MCH 30.5 MCHC 32.6 RDW 19.1 H Plt Count 254 MPV 10.7 Prelim Diff (Auto) WBC Differential Seg Neuts % (Manual) Band Neuts % (Manual) Lymphocytes % (Manual) Monocytes % (Manual) Metamyelocytes % (Man) Abs Neuts (Manual) Differential Comment Platelet Estimate Platelet Morphology Ovalocytes Sodium Potassium Chloride Carbon Dioxide Anion Gap BUN Creatinine Estimated GFR POC Glucose 189 H 207 H Random Glucose Calcium Phosphorus Magnesium Total Bilirubin AST ALT Alkaline Phosphatase Total Protein Albumin 02/26/18 02/26/18 02/26/18 05:32 06:49 12:27 WBC RBC Hgb Hct MCV MCH MCHC RDW Plt Count MPV Prelim Diff (Auto) WBC Differential Seg Neuts % (Manual) Band Neuts % (Manual) Lymphocytes % (Manual) Monocytes % (Manual) Metamyelocytes % (Man) Abs Neuts (Manual) Differential Comment Platelet Estimate Platelet Morphology Ovalocytes Sodium 142 Potassium 4.2 Chloride 103 Carbon Dioxide 30.5 Anion Gap 9 BUN 52 H Creatinine 1.23 H Estimated GFR 43 L POC Glucose 221 H 204 H Random Glucose 170 H Calcium 8.7 Phosphorus Magnesium Total Bilirubin 0.3 AST 21 ALT 16 Alkaline Phosphatase 75 Total Protein 5.5 L Albumin 2.0 L Result Diagrams: 02/26/18 05:32 02/26/18 05:32 Microbiology: Microbiology 02/22/18 23:00 Gram Stain - Final Sputum - Endotracheal Sputum Culture - Final Moderate growth normal respiratory andrew 02/22/18 20:15 Aerobic Blood Culture - Preliminary Blood - Peripheral No growth in 4 days Anaerobic Blood Culture - Preliminary No growth in 4 days 02/22/18 20:09 Aerobic Blood Culture - Preliminary Blood - Peripheral No growth in 4 days Anaerobic Blood Culture - Preliminary No growth in 4 days Imaging: Chest CT 02/23/18 00:00 CONCLUSION: 1. Spiculated 1 cm nodule in the right upper lobe suspicious for small malignancy. 2. Small bilateral pleural effusions with dependent atelectasis and consolidation in both lungs. 3. No pathologically enlarged lymph nodes are identified. Moderate coronary calcification. Venous Doppler Study 02/23/18 00:00 CONCLUSION: 1. The study is negative for bilateral lower extremity deep venous thrombosis. Soft Tissue Neck CT 02/24/18 00:00 CONCLUSION: Unremarkable CT scan of the neck. No masses are identified. Endotracheal tube in place Chest X-Ray 02/26/18 06:00 CONCLUSION: 1. No significant interval change. 2. Stable bilateral lower lobe airspace consolidation. Procedures: * 02/13/2018.- Laparoscopic gastrojejunostomy tube placement and laparoscopic lysis of adhesions * 02/22/18 - intubated * 02/23/18 - IJ placement * 02/25/18 - extubated. * 02/25/18 - flexible laryngoscopy - no evidence of tumor. Assessment and Plan - Disease Oriented Problem List (1) Septic shock (2) Aspiration pneumonia (3) Acute respiratory failure (4) BETSEY (acute kidney injury) (5) Protein-calorie malnutrition, severe (6) Acute adjustment disorder with depressed mood (7) History of laryngeal cancer Comment: Diagnosed in 2014 status post chemotherapy and radiation. (8) Hypothyroidism (9) Barretts esophagus (10) Arthritis - Symptom Scale (1) Debility, unspecified 0-10 Scale: Unable to quantify (2) Pain 0-10 Scale: 1 (denies pain) (3) Dyspnea 0-10 Scale: 1 (denies SOB) (4) Dysphagia 0-10 Scale: Unable to quantify (tolerating TF) Pertinent Non-Medical Issues: Psychosocial: Patient is originally from [place]. She has 4 brothers and 2 sisters. She moved to [place] approximately 40 years ago. Patient was for 18 years and then . She and her had 3 sons (Alireza, Sagar and Cameron). Alireza is a physicians construction project assistant and lives in [place]. Souravvimal and Cameron live in [place]. Per patient, Cameron was born with "autism" and live in a intermediate Spiritual: Yarsanism syed Legal: Patient is currently capacitated to make her own healthcare decisions. According to written designation of healthcare surrogate she has designated her son, Alireza Whitten as primary healthcare surrogate should she lose capacity. Ethical issues impacting care: No known ethical issues impacting care at this time. 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 She has had an acute decline over the past 6 months as evidenced by progressively increased weakness, weight loss, worsening dysphagia and coughing with thin liquids. She reports that she feels she is getting stronger status post having G-J-tube replaced on 02/13/2018. Hospital course has been complicated by possible pneumonia; patient was started on Levaquin. Pt also suffered respiratory distress and was intubated and transferred to [facility], suspected aspiration PNA. She was extubated on 02/25/18. At this time it is unclear if the patient will regain some of her strength/functional status or experience ongoing complications and decline. Code Status: Full Code Plan: * FULL CODE * Decision-making: Patient currently capacitated to make her own healthcare decisions, showing adequate insight and judgment related to her medical conditions. In the event that she loses capacity for medical decision-making, she has designated her son (Alireza) as the healthcare surrogate decision maker. * AGGRESSIVE GOALS. Patient states that she wants to get better/stronger. She remains hopeful for transfer to SNF for rehab at discharge. 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 EGD with esophageal dilatation was done on 07/01/2017. Patient had a G/J-tube but that came out in May,. Now with worsening dysphasia; coughing after swallowing thin liquids. A modified barium swallow was performed with speech pathology patient was given a variety of liquids to swallow which revealed moderate silent aspiration. GJ tube was replaced on 02/13/2017. Had poss episode aspiration, was intubated. TF tolerated. = Debility: Patient verbalizing aggressive goals wanting to get better/stronger. Per PT note, patient was able to ambulate within her hospital room while holding onto the IV pole; PT made recommendations that the patient be discharged home with home health care for functional training. However, patient's son does not feel she is strong enough to go home at this time and wants her to be placed in a detention facility initially for rehab. Patient was previously refusing placement, but after speaking to her son earlier today she Is now amenable to SNF placement for rehab if that is an option. =Dyspnea: 02/22 had respiratory distress, poss 2/2 aspiration, PNA. Intubated on vent, awake and responsive. Reportedly was difficult intubation and physicial noted supraglottic mass. CT neck essentially negative. CT chest shows 1cm nodule right upper lung lobe. ENT found no evidence of tumor, only post radiation changes on laryngoscopy. Extubated 02/25/18. Per family request, requested radiology perform comparison studies for CT chest, images not yet compared. =Pain: 2/2 lines, bedbound status. nursing pain scales reflect score 0. pt c/o pain in back, buttocks, heels. Pillow provided under heels. Denies pain during my visit 02/26/18. * Palliative care will continue to follow this patient throughout her hospitalization to establish trust, assist with symptom management and clarification of medical treatment goals. . Attestation Attestation: To help prompt me to consider important information that might be impacting today's encounter and assessment, information from prior notes written by myself or my colleagues may have been "brought forward" into today's note. My signature on this note, however, is an attestation that I personally performed the exam, history, and/or decision-making noted today, and, unless otherwise indicated, the interactions with patient, family, and staff as well as the review of records all occurred today. I also attest that the listed assessment and stated plan reflect my best clinical judgment today based on the combination of historical information, prior notes, and today's exam/ interactions. When time spent is documented, it refers only to time spent today by the signer, or if indicated, combined time spent today by collaborating physician/nurse practitioner.
--- NOTE | 2018-02-27 07:04 | P.PNCC ---
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 Hooper and Dr. Pineda with followup imaging negative for residual disease (05/2015, 09/2015). She was originally admitted to [facility] hospitalist service on 02/11/18 after she presented complaining of generalized weakness, anemia with hemoglobin of 6.3, dysphagia. She had a history of esophageal stricture that was dilated in June [address] Aly. She previously had G/J tube that became dislodged in May. She was lost to oncology followup for the last couple of years and had been having progressive difficulty with swallowing and cachexia. Modified barium swallow confirmed aspiration and she has undergone laparoscopic GJ placement 09/[address] Kraus. She has been n.p.o. and receiving continuous jejunal tube feeds. This [facility], [facility] just before 6 pm for respiratory distress and patient's sats were in 30s. Dr. Yates responded to [facility] and intubated patient with 8.0 ETT by Glidescope. Some foreign material was suctioned from supraglottic area and patient has significant secretions suctioned from lower airways concerning for aspiration. Post-intubation, she has hypotension with MAP 55-60. 02/23 Patient is intubated and sedated with Fentanyl infusion. On Levophed 3 mics. Lactic acid 1.4. 02/24 Remains intubated sedated, remains on 2 mcg/min of Levophed. Discussed with Dr. Yates who intubated the patient. Apparently had supraglottic mass, and intubation was difficult. Will get ENT eval, and CT neck 02/25: Tolerating CPAP well today, has good cuff leak. Seen by Dr. Augustine yesterday flexible fiberoptic laryngoscopy did not show any evidence of residual disease. 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 02/26: Extubated yesterday, tolerating well. No stridor breathing comfortably. Creatinine slightly improved. Leukocytosis most likely steroid-induced Subjective: 02/27: Afebrile. Resting comfortably in bed on room air. Denies chest pain, shortness of breath or abdominal pain. Last BM 02/24. Objective Vital Signs / I&O: Vital Signs 02/26/18 07:00 02/26/18 07:35 02/26/18 08:00 Temperature 97.8 F Pulse Rate 73 66 69 Respiratory Rate 19 19 17 Blood Pressure 124/59 L 123/61 Pulse Oximetry 95 95 99 02/26/18 09:00 02/26/18 10:00 02/26/18 11:00 Temperature Pulse Rate 71 68 69 Respiratory Rate 31 H 19 17 Blood Pressure 117/58 L 121/58 L 121/60 Pulse Oximetry 94 L 95 95 02/26/18 11:26 02/26/18 12:00 02/26/18 13:00 Temperature 97.5 F L Pulse Rate 73 104 H 105 H Respiratory Rate 16 18 17 Blood Pressure 116/62 112/59 L Pulse Oximetry 89 L 89 L 02/26/18 14:00 02/26/18 15:00 02/26/18 15:40 Temperature Pulse Rate 103 H 107 H 72 Respiratory Rate 19 18 17 Blood Pressure 104/54 L 115/77 Pulse Oximetry 90 L 95 02/26/18 16:00 02/26/18 17:00 02/26/18 18:00 Temperature 97.9 F Pulse Rate 76 74 67 Respiratory Rate 18 17 20 Blood Pressure 109/79 122/60 123/60 Pulse Oximetry 96 95 95 02/26/18 19:00 02/26/18 20:00 02/26/18 20:49 Temperature Pulse Rate 76 71 73 Respiratory Rate 19 20 24 Blood Pressure 118/57 L 126/59 L Pulse Oximetry 95 95 94 L 02/26/18 21:00 02/26/18 22:00 02/26/18 23:00 Temperature Pulse Rate 73 121 H 66 Respiratory Rate 22 20 18 Blood Pressure 129/62 112/57 L 121/55 L Pulse Oximetry 94 L 93 L 93 L 02/27/18 00:00 02/27/18 01:00 02/27/18 01:18 Temperature 98.2 F Pulse Rate 66 114 H 115 H Respiratory Rate 19 18 18 Blood Pressure 121/62 107/59 L Pulse Oximetry 95 94 L 93 L 02/27/18 02:00 02/27/18 03:00 02/27/18 04:00 Temperature 97.6 F Pulse Rate 70 68 71 Respiratory Rate 19 20 19 Blood Pressure 120/60 133/60 131/58 L Pulse Oximetry 93 L 91 L 92 L 02/27/18 04:54 Temperature Pulse Rate 62 Respiratory Rate 18 Blood Pressure Pulse Oximetry Intake & Output 02/26/18 02/26/18 02/27/18 06:59 18:59 06:59 Intake Total 875 / 875 1397 / 1397 Output Total 425 / 425 0 / 0 Balance 450 / 450 1397 / 1397 Weight 71 kg Intake: IV 100 / 100 Azactam Inj 2 GM In NS Inj 100 100 / 100 ML @ 200 mls/hr IV.SIG Q8H [facility] Rx#:[id number] Oral 250 / 250 100 / 100 Tube Feeding 625 / 625 1017 / 1017 Tube Irrigant 120 / 120 Water Bolus Amount 60 / 60 Output: Urine 425 / 425 Gastric Drainage 0 / 0 Left Upper Quadrant 0 / 0 Gastrojejunostomy Tube Other: # Voids 3 Date of Last Bowel Movement 02/24/18 02/24/18 02/24/18 # Bowel Movements 0 Result Diagrams: 02/26/18 05:32 02/26/18 05:32 Other Results: Microbiology 02/22/18 23:00 Sputum - Endotracheal Gram Stain - Final 02/22/18 23:00 Sputum - Endotracheal Sputum Culture - Final Moderate growth normal respiratory andrew 02/22/18 20:15 Blood - Peripheral Aerobic Blood Culture - Preliminary No growth in 4 days 02/22/18 20:15 Blood - Peripheral Anaerobic Blood Culture - Preliminary No growth in 4 days 02/22/18 20:09 Blood - Peripheral Aerobic Blood Culture - Preliminary No growth in 4 days 02/22/18 20:09 Blood - Peripheral Anaerobic Blood Culture - Preliminary No growth in 4 days Imaging: ITS Impressions Chest X-Ray 02/19/18 00:00 CONCLUSION: Bilateral mostly basilar airspace disease which may represent mild pulmonary edema with small effusions. Left basilar consolidation present. Chest X-Ray 02/22/18 00:00 CONCLUSION: Intubation with endotracheal tube in good position. Chest CT 02/23/18 00:00 CONCLUSION: 1. Spiculated 1 cm nodule in the right upper lobe suspicious for small malignancy. 2. Small bilateral pleural effusions with dependent atelectasis and consolidation in both lungs. 3. No pathologically enlarged lymph nodes are identified. Moderate coronary calcification. Soft Tissue Neck CT 02/23/18 00:00 CONCLUSION: 1. Patient intubated. No adenopathy or abnormal fluid collections are seen in the neck. Lung apices are clear except for some scarring. Left central line in internal jugular vein. Venous Doppler Study 02/23/18 00:00 CONCLUSION: 1. The study is negative for bilateral lower extremity deep venous thrombosis. Chest X-Ray 02/23/18 06:00 CONCLUSION: 1. Nasogastric tube now in place with tip below the aqqoc-[id number] of the radiograph. 2. No change in mild bilateral pulmonary opacity and small left pleural effusion. Chest X-Ray 02/23/18 06:03 CONCLUSION: 1. Left IJ central venous catheter now in place. No evidence of pneumothorax. 2. No change in left greater than right lung base opacity. Soft Tissue Neck CT 02/24/18 00:00 CONCLUSION: Unremarkable CT scan of the neck. No masses are identified. Endotracheal tube in place Chest X-Ray 02/26/18 06:00 CONCLUSION: 1. No significant interval change. 2. Stable bilateral lower lobe airspace consolidation. Objective Remarks: GENERAL: Patient is 72 yo lying in bed in no acute distress SKIN: Warm and dry. HEAD: Normocephalic. EYES: No scleral icterus. No injection or drainage. NECK: Supple, trachea midline. No JVD or lymphadenopathy. CARDIOVASCULAR: Regular rate and rhythm without murmurs, gallops, or rubs. RESPIRATORY: Breath sounds equal bilaterally. No accessory muscle use. GASTROINTESTINAL: Abdomen soft, non-tender, nondistended. MUSCULOSKELETAL: No cyanosis, or edema. Neuro: AO x3. Patient is awake alert moves all extremities spontaneously follows commands. No focal deficits Assessment and Plan - Assessment and Plan Plan: NEURO/PSYCH: Depressive disorder NOS Allergic rhinitis Acetaminophen 650 mg by tube every 6 hours as needed fever/pain 1 through 10 Morphine sulfate 2 mg IV every 4 hours as needed breakthrough pain Continue escitalopram 20 mg by GJ tube daily for depression Continue cetirizine 10 mg daily for allergic rhinitis RESP: Acute respiratory failure Aspiration pneumonia History of right tonsillar and epiglottic cancer Treated with chemo-radiation completed April 18, 2015. Nasal cannula to maintain saturations greater than equal to 92% Incentive spirometry while awake Albuterol/ipratropium aerosols every 4 hours with albuterol aerosols every 2 hours as needed for dyspnea Currently on methylprednisolone succinate 40 mg IV every 12 hours. Wean over the next several days Extubated 02/25/2018, no stridor breathing comfortably Dr. Yates described previous difficult intubation, see intubation note Appreciate consult from ENT Dr. Perrin. Flexible fiberoptic laryngoscopy did not show evidence of residual disease but showed scarring from radiation CV: Septic shock-resolved Currently on LR at 84 cc an hour. Will discontinue Currently not requiring vasopressors and/or antihypertensives GI: Oral pharyngeal dysphagia History of esophageal stricture status post GJ tube placement Severe chronic protein energy malnutrition. Continue vital 1.5 at 65 mL/h via jejunostomy for nutrition recommendations. GI following, plan for outpatient esophageal dilation. Lansoprazole for GI prophylaxis Docusate sodium/senna 1 tablet twice daily for bowel regimen FEN/RENAL: BETSEY overlying CKD Stage IIIa Orellana in place. Monitor intake and output every hour. Monitor electrolytes. Replace electrolytes as indicated per ICU electrolyte replacement protocol. ID: Aspiration pneumonia Septic shock F/u cultures negative to date. Continue IV aztreonam for 7 days total, discontinue intranasal IV 02/26 Pertinent cultures 02/22 -sputum -no growth 02/22 -blood cultures 2 -no growth HEME/ENT: History of right tonsillar and epiglottic cancer Treated with chemo-radiation completed April 18, 2015. Leukocytosis Normocytic anemia Follow-up imaging previously demonstrated no residual disease. ENT eval-no residual disease. Has been followed by Dr. Pineda. Monitor CBC daily. Follow trend ENDO: Hypothyroidism Hyperglycemia likely steroid-induced Continue levothyroxine 100 mcg via tube. daily/home medication. TSH 3.73 Monitor bedside glucose every 6 hours initiate low-dose insulin aspart sliding scale as indicated. PROPH: SCDs/heparin subcu for DVT prophylaxis-hold heparin for 24 hours,. Lansoprazole for stress ulcer prophylaxis. ACCESS: Left IJ central venous line placement 02/23/18 discontinue 02/27 Level 2 follow-up. Patient is stable from a critical care medicine standpoint. We will assign care to hospitalist in a.m. 02/28/2018. Okay to transfer to floor
[2018-02-27] MEDS ORDERED: Morphine Inj 4 MG/ML Vial IV.PUSH PRN (07:14)
[2018-02-27] MEDS: Oral Hygiene Kit OROPHARYNG SCH (14:25)
[2018-02-27] MEDS: Heparin - SQ 10,000 UNITS/ML Vial SQ SCH ×3 (14:26→21:42)
[2018-02-27] MEDS: [UNRECOGNIZED DRUG - SUPPLY] OROPHARYNG SCH ×2 (14:26→16:51)
[2018-02-27] MEDS: Artificial Tears Opth Drops 15 ML Bottle EACH EYE SCH (14:27)
[2018-02-27] MEDS: Insulin NovoLOG Aspart Correctional Sugar Inj SQ SCH ×2 (18:00→23:31)
[2018-02-27] MEDS: MethylPREDNISolone Sod Succinate Inj 40 MG/ML Vial IV.PUSH SCH ×2 (20:28→21:43)
[2018-02-27] MEDS: Senna/Docusate Sodium 8.6/50 MG Tablet G-TUBE SCH ×2 (20:28→21:43)
[2018-02-27] MEDS: Aztreonam Inj 2 GM in Sodium Chloride 0.9% Inj 100 ML IV.SIG SCH (23:44)
[2018-02-28] MEDS: Chlorhexidine 0.12% Oral Kit 15 ML UDC OROPHARYNG SCH ×2 (00:02→08:49)
[2018-02-28] MEDS: Oral Hygiene Kit OROPHARYNG SCH ×6 (00:17→16:30)
[2018-02-28] MEDS: [UNRECOGNIZED DRUG - SUPPLY] OROPHARYNG SCH ×6 (00:17→16:30)
[2018-02-28] MEDS: Insulin NovoLOG Aspart Correctional Sugar Inj SQ SCH ×4 (00:19→18:01)
[2018-02-28] MEDS: Artificial Tears Opth Drops 15 ML Bottle EACH EYE SCH ×3 (02:27→18:01)
[2018-02-28] MEDS: Heparin - SQ 10,000 UNITS/ML Vial SQ SCH ×2 (05:15→15:07)
[2018-02-28] MEDS: Levothyroxine 100 MCG Tablet PO SCH (05:16)
--- NOTE | 2018-02-28 05:20 | XR ---
EXAM DATE: 02/28/2018 5:13 AM EDT AGE/SEX: 72 years / Female INDICATIONS: Pneumonia. CLINICAL DATA: This is the patient's subsequent encounter. Patient reports that signs and symptoms h ave been present for 2 weeks and indicates a pain score of 0/10. MEDICAL/SURGICAL HISTORY: . Gastroesophageal reflux disease. Hypothyroidism. Arthritis. judah twyla esophagus. Skin cancer. . Cholecystectomy. Tonsillectomy. Skin cancer removed. EGD. Hernia repa ir. Adenoidectomy. COMPARISON: [facility] – [place], CHEST 1V SINGLE AP, 02/26/2018. . FINDINGS: A single AP view of the chest demonstrates bibasilar airspace disease not significantly changed. Hear t normal in size. Left jugular central line stable position. The cardiomediastinal contours are unrem arkable. Osseous structures are intact. CONCLUSION: Stable bibasilar airspace disease. Electronically signed by: Jose Coley MD 02/28/2018 5:19 AM EDT
[2018-02-28 07:38] LABS: Mean Corpuscular HGB Conc 33.4 % (32.0-36.0); Mean Corpuscular Hemoglobin 31.1 pg (27.0-34.0); Mean Corpuscular Volume 93.3 fL (80.0-100.0); Mean Platelet Volume 11.3 fL (7.0-11.0); Platelet Count 241 th/mm3 (150-450); Red Blood Count 2.89 mil/mm3 (4.00-5.30); Red Cell Distribution Width 19.3 % (11.6-17.2)
[2018-02-28 07:49] LABS: Albumin 1.7 g/dL (3.4-5.0); Anion Gap 8 meq/L (5-15); Aspartate Aminotransferase 19 U/L (15-37); Blood Urea Nitrogen 52 mg/dL (7-18); Calcium 8.2 mg/dL (8.5-10.1); Chloride 105 meq/L (98-107); Glomerular Filtration Rate 55 mL/min (>89); Glucose,Random 154 mg/dL (74-106); Magnesium 1.9 mg/dL (1.5-2.5); Potassium 4.4 meq/L (3.5-5.1); Sodium 144 meq/L (136-145)
[2018-02-28 07:50] LABS: Alanine Aminotransferase 15 U/L (10-53); Phosphorus 2.5 mg/dL (2.5-4.9)
[2018-02-28 07:52] LABS: Alkaline Phosphatase 66 U/L (45-117)
[2018-02-28] MEDS: Lansoprazole ODT 15 MG Tablet G-TUBE SCH (08:50)
[2018-02-28] MEDS: MethylPREDNISolone Sod Succinate Inj 40 MG/ML Vial IV.PUSH SCH ×2 (08:51→12:00)
[2018-02-28] MEDS: Senna/Docusate Sodium 8.6/50 MG Tablet G-TUBE SCH ×2 (08:52→20:23)
[2018-02-28 09:57] LABS: Acanthocytes Occ; Lymphocytes 2 % (9-44); Metamyelocytes 3 % (0-1); Monocytes 11 % (0-8); Myelocytes 1 % (0-0); Ovalocytes 1+
[2018-02-28 09:58] LABS: Hypersegmented Neutrophils 1+; Platelet Estimate Normal (Normal); Platelet Morphology Normal (Normal)
--- NOTE | 2018-02-28 11:28 | P.PN ---
Subjective Interval history: Follow-up subglottic cancer/dysphagia/respiratory failure February 28, 2018-patient seen and examined, states she did have a good night sleep. Denies any shortness of breath. Currently afebrile Physical Exam Vital signs: Vital Signs 02/27/18 12:00 02/27/18 16:00 02/27/18 16:30 Temperature 98.6 F 98.4 F Pulse Rate 61 61 79 Respiratory Rate 18 19 28 H Blood Pressure 117/60 117/64 Pulse Oximetry 96 96 02/27/18 18:00 02/27/18 19:26 02/27/18 20:00 Temperature 97 F L 98.3 F Pulse Rate 86 99 H 75 Respiratory Rate 22 20 18 Blood Pressure 136/85 110/56 L Pulse Oximetry 93 L 92 L 94 L 02/27/18 23:38 02/28/18 00:00 02/28/18 00:54 Temperature 97.9 F Pulse Rate 74 64 Respiratory Rate 18 19 Blood Pressure 120/57 L Pulse Oximetry 94 L 94 L 02/28/18 03:28 02/28/18 04:00 02/28/18 08:00 Temperature 98 F 97.6 F Pulse Rate 66 71 66 Respiratory Rate 14 19 20 Blood Pressure 105/54 L 117/56 L Pulse Oximetry 95 93 L 02/28/18 08:36 Temperature Pulse Rate 83 Respiratory Rate 17 Blood Pressure Pulse Oximetry 94 L Intake & Output 02/27/18 02/28/18 02/28/18 18:59 06:59 18:59 Intake Total 972 / 972 420 / 420 100 / 100 Output Total 425 / 425 400 / 400 Balance 547 / 547 20 / 20 100 / 100 Weight 68.7 kg Intake: IV 100 / 100 Azactam Inj 2 GM In NS Inj 100 100 / 100 ML @ 200 mls/hr IV.SIG Q8H [facility] Rx#:[id number] Oral 420 / 420 Tube Feeding 847 / 847 Water Bolus Amount 125 / 125 Output: Urine 425 / 425 400 / 400 Other: # Incontinent Voids 4 Date of Last Bowel Movement 02/27/18 02/27/18 # Bowel Movements 1 1 # Incontinent Bowel Movements 1 Narrative: GENERAL: NAD SKIN: Warm and dry. HEAD: Normocephalic. EYES: No scleral icterus. No injection or drainage. NECK: Supple, trachea midline. No JVD or lymphadenopathy. CARDIOVASCULAR: Regular rate and rhythm without murmurs, gallops, or rubs. RESPIRATORY: Breath sounds equal bilaterally. No accessory muscle use. GASTROINTESTINAL: Abdomen soft, non-tender, nondistended. JG tube in place MUSCULOSKELETAL: No cyanosis, or edema. BACK: Nontender without obvious deformity. No CVA tenderness. - Urinary Catheter Management Indwelling Urethral Catheter Cath placed during this visit: yes Reason for continuing: Hourly intake/output Insertion date: 02/22/18 Insertion time: 20:00 Results - Labs CBC & Chem 7: 02/28/18 06:00 02/28/18 06:00 Laboratory Results - last 24 hr 02/27/18 02/27/18 02/28/18 18:42 23:19 05:03 WBC RBC Hgb Hct MCV MCH MCHC RDW Plt Count MPV Prelim Diff (Auto) WBC Differential Seg Neuts % (Manual) Band Neuts % (Manual) Lymphocytes % (Manual) Monocytes % (Manual) Metamyelocytes % (Man) Myelocytes % (Man) Abs Neuts (Manual) Differential Comment Hypersegmented Neuts Platelet Estimate Platelet Morphology Ovalocytes Acanthocytes (Spur) Sodium Potassium Chloride Carbon Dioxide Anion Gap BUN Creatinine Estimated GFR POC Glucose 121 H 168 H 190 H Random Glucose Calcium Phosphorus Magnesium Total Bilirubin AST ALT Alkaline Phosphatase Total Protein Albumin 02/28/18 02/28/18 06:00 06:00 WBC 10.0 RBC 2.89 L Hgb 9.0 L Hct 27.0 L MCV 93.3 MCH 31.1 MCHC 33.4 RDW 19.3 H Plt Count 241 MPV 11.3 H Prelim Diff (Auto) Manual diff required WBC Differential Manual diff final Seg Neuts % (Manual) 73 H Band Neuts % (Manual) 10 H Lymphocytes % (Manual) 2 L Monocytes % (Manual) 11 H Metamyelocytes % (Man) 3 H Myelocytes % (Man) 1 H Abs Neuts (Manual) 8.7 H Differential Comment . Hypersegmented Neuts 1+ H Platelet Estimate Normal Platelet Morphology Normal Ovalocytes 1+ H Acanthocytes (Spur) Occ H Sodium 144 Potassium 4.4 Chloride 105 Carbon Dioxide 31.0 Anion Gap 8 BUN 52 H Creatinine 1.00 Estimated GFR 55 L POC Glucose Random Glucose 154 H Calcium 8.2 L Phosphorus 2.5 Magnesium 1.9 Total Bilirubin 0.2 AST 19 ALT 15 Alkaline Phosphatase 66 Total Protein 5.0 L Albumin 1.7 L Microbiology 02/22/18 20:15 Blood - Peripheral Aerobic Blood Culture - Final No growth in 5 days 02/22/18 20:15 Blood - Peripheral Anaerobic Blood Culture - Final No growth in 5 days 02/22/18 20:09 Blood - Peripheral Aerobic Blood Culture - Final No growth in 5 days 02/22/18 20:09 Blood - Peripheral Anaerobic Blood Culture - Final No growth in 5 days - Imaging Impressions Chest X-Ray 02/28/18 06:00 CONCLUSION: Stable bibasilar airspace disease. - Procedures G-J TUBE PLACEMENT DATE OF OPERATION: 02/13/2018 DATE OF PROCEDURE: 02/13/2018. PREOPERATIVE DIAGNOSIS: Feeding difficulty in adult, malnutrition, history of squamous cell cancer. POSTOPERATIVE DIAGNOSIS: Feeding difficulty in adult, malnutrition, history of squamous cell cancer. PROCEDURE PERFORMED: 1. Laparoscopic gastrojejunostomy tube placement. 22F 2. Laparoscopic lysis of adhesions. SURGEON: Dr. 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 Nasal cannula to maintain saturations greater than equal to 92% Incentive spirometry while awake Albuterol/ipratropium aerosols every 4 hours with albuterol aerosols every 2 hours as needed for dyspnea Currently on methylprednisolone succinate 40 mg IV every 12 hours. Wean over the next several days Extubated 02/25/2018, no stridor breathing comfortably Appreciate consult from ENT Dr. Perrin. Flexible fiberoptic laryngoscopy did not show evidence of residual disease but showed scarring from radiation Septic shock-resolved Oral pharyngeal dysphagia History of esophageal stricture status post GJ tube placement Severe chronic protein energy malnutrition. Continue vital 1.5 at 65 mL/h via jejunostomy for nutrition recommendations. GI following, plan for outpatient esophageal dilation. Lansoprazole for GI prophylaxis Docusate sodium/senna 1 tablet twice daily for bowel regimen BETSEY overlying CKD Stage IIIa Orellana in place. Monitor electrolytes. Replace electrolytes accordingly Aspiration pneumonia Continue IV aztreonam for 7 days total, discontinued intranasal IV 02/26 History of right tonsillar and epiglottic cancer Treated with chemo-radiation completed April 18, 2015. Leukocytosis Normocytic anemia Follow-up imaging previously demonstrated no residual disease. ENT eval-no residual disease. Appreciate input from medical oncology, Dr. Pineda. Monitor CBC Hypothyroidism Hyperglycemia likely steroid-induced Continue levothyroxine 100 mcg via tube. daily/home medication. Monitor bedside glucose every 6 hours initiate low-dose insulin aspart sliding scale as indicated. PROPH: SCDs/heparin subcu for DVT prophylaxis-hold heparin for 24 hours,. Lansoprazole for stress ulcer prophylaxis.
[2018-02-28] MEDS: Aztreonam Inj 2 GM in Sodium Chloride 0.9% Inj 100 ML IV.SIG SCH (14:00)
[2018-02-28] MEDS: Carbamide Peroxide 6.5% Otic Drops 15 ML Bottle RIGHT EAR SCH (16:29)
[2018-02-28] MEDS: Chlorhexidine Gluconate 2% 1 Pack (2 Cloths) TOPICAL SCH (16:29)
[2018-03-01] MEDS: MethylPREDNISolone Sod Succinate Inj 40 MG/ML Vial IV.PUSH SCH ×2 (00:10→12:55)
[2018-03-01] MEDS: Insulin NovoLOG Aspart Correctional Sugar Inj SQ SCH ×4 (00:11→17:43)
[2018-03-01] MEDS: Artificial Tears Opth Drops 15 ML Bottle EACH EYE SCH ×3 (04:21→22:45)
[2018-03-01] MEDS: Heparin - SQ 10,000 UNITS/ML Vial SQ SCH ×3 (05:58→22:43)
[2018-03-01] MEDS: [UNRECOGNIZED DRUG - SUPPLY] OROPHARYNG SCH ×3 (06:00→17:12)
[2018-03-01] MEDS: Oral Hygiene Kit OROPHARYNG SCH ×3 (06:00→17:12)
[2018-03-01] MEDS: Levothyroxine 100 MCG Tablet PO SCH (06:00)
[2018-03-01 07:17] LABS: Baso # (Auto) 0.2 th/mm3 (0.0-0.2); Baso % (Auto) 2.4 % (0.0-2.0); Hematocrit 27.4 % (35.0-46.0); Hemoglobin 9.2 gm/dL (11.6-15.3); Lymph # (Auto) 0.3 th/mm3 (1.0-4.8); Lymph % (Auto) 3.5 % (9.0-44.0); Mean Corpuscular HGB Conc 33.5 % (32.0-36.0); Mean Corpuscular Hemoglobin 31.4 pg (27.0-34.0); Mean Corpuscular Volume 93.6 fL (80.0-100.0); Mono # (Auto) 1.5 th/mm3 (0.0-0.9); Mono % (Auto) 17.2 % (0.0-8.0); Neut # (Auto) 6.7 th/mm3 (1.8-7.7); Neut % (Auto) 76.9 % (16.0-70.0); Platelet Count 267 th/mm3 (150-450); Red Blood Count 2.92 mil/mm3 (4.00-5.30); Red Cell Distribution Width 19.2 % (11.6-17.2); White Blood Count 8.7 th/mm3 (4.0-11.0)
[2018-03-01 08:05] LABS: Alanine Aminotransferase 19 U/L (10-53); Albumin 1.6 g/dL (3.4-5.0); Anion Gap 9 meq/L (5-15); Aspartate Aminotransferase 21 U/L (15-37); Blood Urea Nitrogen 43 mg/dL (7-18); Calcium 7.7 mg/dL (8.5-10.1); Carbon Dioxide 28.9 meq/L (21.0-32.0); Chloride 106 meq/L (98-107); Glomerular Filtration Rate 63 mL/min (>89); Glucose,Random 153 mg/dL (74-106); Potassium 4.3 meq/L (3.5-5.1); Sodium 144 meq/L (136-145)
[2018-03-01 08:07] LABS: Alkaline Phosphatase 62 U/L (45-117); Total Protein 4.7 g/dL (6.4-8.2)
[2018-03-01] MEDS: Chlorhexidine 0.12% Oral Kit 15 ML UDC OROPHARYNG SCH ×2 (08:41→22:44)
[2018-03-01 09:37] LABS: Lymphocytes 12 % (9-44); Metamyelocytes 2 % (0-1); Monocytes 3 % (0-8); Myelocytes 3 % (0-0); Platelet Estimate Normal (Normal)
[2018-03-01 09:38] LABS: Toxic Vacuolation Present
[2018-03-01 09:39] LABS: Acanthocytes Occ; Ovalocytes 1+
[2018-03-01] MEDS: Lansoprazole ODT 15 MG Tablet G-TUBE SCH (10:02)
[2018-03-01] MEDS: Senna/Docusate Sodium 8.6/50 MG Tablet G-TUBE SCH ×2 (10:03→22:42)
--- NOTE | 2018-03-01 11:06 | P.PN ---
Subjective Interval history: Follow-up subglottic cancer/dysphagia/respiratory failure February 28, 2018-patient seen and examined, states she did have a good night sleep. Denies any shortness of breath. Currently afebrile March 01, 2018-patient seen and examined, states she had a good night sleep. Afebrile. No acute event overnight. Physical Exam Vital signs: Vital Signs 02/28/18 11:27 02/28/18 12:00 02/28/18 15:18 Temperature 97.4 F L Pulse Rate 81 76 Respiratory Rate 17 18 Blood Pressure 129/60 Pulse Oximetry 95 95 02/28/18 15:20 02/28/18 16:00 02/28/18 19:16 Temperature 97.4 F L Pulse Rate 76 74 74 Respiratory Rate 18 18 20 Blood Pressure 114/55 L Pulse Oximetry 94 L 02/28/18 20:00 03/01/18 00:00 03/01/18 00:46 Temperature 97.4 F L 97.4 F L Pulse Rate 77 77 69 Respiratory Rate 18 18 16 Blood Pressure 127/60 127/60 Pulse Oximetry 92 L 92 L 03/01/18 04:00 03/01/18 04:31 03/01/18 07:49 Temperature 97.3 F L Pulse Rate 71 72 84 Respiratory Rate 18 16 14 Blood Pressure 121/60 Pulse Oximetry 96 95 03/01/18 08:00 Temperature 97.6 F Pulse Rate 69 Respiratory Rate 18 Blood Pressure 123/55 L Pulse Oximetry 94 L Intake & Output 02/28/18 03/01/18 03/01/18 18:59 06:59 18:59 Intake Total 680 / 680 240 / 240 Output Total 800 / 800 Balance -120 / -120 240 / 240 Weight 68.4 kg Intake: IV 200 / 200 Azactam Inj 2 GM In NS Inj 100 200 / 200 ML @ 200 mls/hr IV.SIG Q8H ANN Rx#:[id number] Oral 480 / 480 240 / 240 Output: Urine 800 / 800 Narrative: GENERAL: NAD SKIN: Warm and dry. HEAD: Normocephalic. EYES: No scleral icterus. No injection or drainage. NECK: Supple, trachea midline. No JVD or lymphadenopathy. CARDIOVASCULAR: Regular rate and rhythm without murmurs, gallops, or rubs. RESPIRATORY: Breath sounds equal bilaterally. No accessory muscle use. GASTROINTESTINAL: Abdomen soft, non-tender, nondistended. JG tube in place MUSCULOSKELETAL: No cyanosis, or edema. BACK: Nontender without obvious deformity. No CVA tenderness. - Urinary Catheter Management Indwelling Urethral Catheter Cath placed during this visit: yes Reason for continuing: Hourly intake/output Insertion date: 02/22/18 Insertion time: 20:00 Results - Labs CBC & Chem 7: 03/01/18 06:00 03/01/18 06:00 Laboratory Results - last 24 hr 02/28/18 02/28/18 02/28/18 13:45 17:33 22:20 WBC RBC Hgb Hct MCV MCH MCHC RDW Plt Count MPV Prelim Diff (Auto) Neut % (Auto) Lymph % (Auto) Bee % (Auto) Eos % (Auto) Baso % (Auto) Neut # (Auto) Lymph # (Auto) Bee # (Auto) Eos # (Auto) Baso # (Auto) WBC Differential Seg Neuts % (Manual) Band Neuts % (Manual) Lymphocytes % (Manual) Monocytes % (Manual) Metamyelocytes % (Man) Myelocytes % (Man) Abs Neuts (Manual) Differential Comment Toxic Vacuolation Platelet Estimate Platelet Morphology Basophilic Stippling Ovalocytes Acanthocytes (Spur) Sodium Potassium Chloride Carbon Dioxide Anion Gap BUN Creatinine Estimated GFR POC Glucose 171 H 191 H Random Glucose Calcium Total Bilirubin AST ALT Alkaline Phosphatase Total Protein Albumin Stl C.difficile Tox PCR Negative St C. diff Tox Epid 027 Negative 02/28/18 03/01/18 03/01/18 23:57 04:10 06:00 WBC 8.7 RBC 2.92 L Hgb 9.2 L Hct 27.4 L MCV 93.6 MCH 31.4 MCHC 33.5 RDW 19.2 H Plt Count 267 MPV 11.0 Prelim Diff (Auto) Slide review pending Neut % (Auto) 76.9 H Lymph % (Auto) 3.5 L Bee % (Auto) 17.2 H Eos % (Auto) 0.0 Baso % (Auto) 2.4 H Neut # (Auto) 6.7 Lymph # (Auto) 0.3 L Bee # (Auto) 1.5 H Eos # (Auto) 0.0 Baso # (Auto) 0.2 WBC Differential Manual diff final Seg Neuts % (Manual) 75 H Band Neuts % (Manual) 5 Lymphocytes % (Manual) 12 Monocytes % (Manual) 3 Metamyelocytes % (Man) 2 H Myelocytes % (Man) 3 H Abs Neuts (Manual) 7.4 Differential Comment . Toxic Vacuolation Present H Platelet Estimate Normal Platelet Morphology Enlarged H Basophilic Stippling Faint H Ovalocytes 1+ H Acanthocytes (Spur) Occ H Sodium Potassium Chloride Carbon Dioxide Anion Gap BUN Creatinine Estimated GFR POC Glucose 179 H 206 H Random Glucose Calcium Total Bilirubin AST ALT Alkaline Phosphatase Total Protein Albumin Stl C.difficile Tox PCR St C. diff Tox Epid 027 03/01/18 03/01/18 06:00 07:54 WBC RBC Hgb Hct MCV MCH MCHC RDW Plt Count MPV Prelim Diff (Auto) Neut % (Auto) Lymph % (Auto) Bee % (Auto) Eos % (Auto) Baso % (Auto) Neut # (Auto) Lymph # (Auto) Bee # (Auto) Eos # (Auto) Baso # (Auto) WBC Differential Seg Neuts % (Manual) Band Neuts % (Manual) Lymphocytes % (Manual) Monocytes % (Manual) Metamyelocytes % (Man) Myelocytes % (Man) Abs Neuts (Manual) Differential Comment Toxic Vacuolation Platelet Estimate Platelet Morphology Basophilic Stippling Ovalocytes Acanthocytes (Spur) Sodium 144 Potassium 4.3 Chloride 106 Carbon Dioxide 28.9 Anion Gap 9 BUN 43 H Creatinine 0.88 Estimated GFR 63 L POC Glucose 155 H Random Glucose 153 H Calcium 7.7 L Total Bilirubin 0.2 AST 21 ALT 19 Alkaline Phosphatase 62 Total Protein 4.7 L Albumin 1.6 L Stl C.difficile Tox PCR St C. diff Tox Epid 027 - Procedures G-J TUBE PLACEMENT DATE OF OPERATION: 02/13/2018 DATE OF PROCEDURE: 02/13/2018. PREOPERATIVE DIAGNOSIS: Feeding difficulty in adult, malnutrition, history of squamous cell cancer. POSTOPERATIVE DIAGNOSIS: Feeding difficulty in adult, malnutrition, history of squamous cell cancer. PROCEDURE PERFORMED: 1. Laparoscopic gastrojejunostomy tube placement. 22F 2. Laparoscopic lysis of adhesions. SURGEON: Dr. 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 Nasal cannula to maintain saturations greater than equal to 92% Incentive spirometry while awake Albuterol/ipratropium aerosols every 4 hours with albuterol aerosols every 2 hours as needed for dyspnea Currently on methylprednisolone succinate 40 mg IV every 12 hours. Wean over the next several days Extubated 02/25/2018, no stridor breathing comfortably Appreciate consult from ENT Dr. Perrin. Flexible fiberoptic laryngoscopy did not show evidence of residual disease but showed scarring from radiation Septic shock-resolved Oral pharyngeal dysphagia History of esophageal stricture status post GJ tube placement Severe chronic protein energy malnutrition. Continue vital 1.5 at 65 mL/h via jejunostomy for nutrition recommendations. GI following, plan for outpatient esophageal dilation. Lansoprazole for GI prophylaxis Docusate sodium/senna 1 tablet twice daily for bowel regimen BETSEY overlying CKD Stage IIIa Orellana in place. Monitor electrolytes. 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 Leukocytosis Normocytic anemia Follow-up imaging previously demonstrated no residual disease. ENT eval-no residual disease. Appreciate input from medical oncology, Dr. Pineda. Monitor CBC Hypothyroidism Hyperglycemia likely steroid-induced Continue levothyroxine 100 mcg via tube. daily/home medication. Monitor bedside glucose every 6 hours initiate low-dose insulin aspart sliding scale as indicated. PROPH: SCDs/heparin subcu for DVT prophylaxis-hold heparin for 24 hours,. Lansoprazole for stress ulcer prophylaxis.
[2018-03-02] MEDS: Insulin NovoLOG Aspart Correctional Sugar Inj SQ SCH ×4 (00:13→17:29)
[2018-03-02] MEDS: MethylPREDNISolone Sod Succinate Inj 40 MG/ML Vial IV.PUSH SCH ×2 (04:59→12:59)
[2018-03-02] MEDS: [UNRECOGNIZED DRUG - SUPPLY] OROPHARYNG SCH ×3 (04:59→17:30)
[2018-03-02] MEDS: Artificial Tears Opth Drops 15 ML Bottle EACH EYE SCH ×3 (05:00→21:11)
[2018-03-02] MEDS: Oral Hygiene Kit OROPHARYNG SCH ×3 (05:00→17:30)
[2018-03-02] MEDS: Heparin - SQ 10,000 UNITS/ML Vial SQ SCH ×4 (05:25→21:12)
[2018-03-02] MEDS: Levothyroxine 100 MCG Tablet PO SCH ×2 (05:26→05:30)
[2018-03-02] MEDS: Lansoprazole ODT 15 MG Tablet G-TUBE SCH (08:59)
[2018-03-02] MEDS: Chlorhexidine 0.12% Oral Kit 15 ML UDC OROPHARYNG SCH ×2 (09:00→21:10)
[2018-03-02] MEDS: Senna/Docusate Sodium 8.6/50 MG Tablet G-TUBE SCH ×2 (09:01→19:59)
--- NOTE | 2018-03-02 13:13 | P.PN ---
Subjective Interval history: Follow-up subglottic cancer/dysphagia/respiratory failure February 28, 2018-patient seen and examined, states she did have a good night sleep. Denies any shortness of breath. Currently afebrile March 01, 2018-patient seen and examined, states she had a good night sleep. Afebrile. No acute event overnight. March 02, 2018-patient seen and examined,had episode of nausea and emesis overnight; states she is not feeling well Physical Exam Vital signs: Vital Signs 03/01/18 15:58 03/01/18 16:00 03/01/18 20:00 Temperature 97.4 F L 97.6 F Pulse Rate 67 110 H 68 Respiratory Rate 14 18 15 Blood Pressure 122/60 125/58 L Pulse Oximetry 94 L 97 03/01/18 20:13 03/02/18 00:00 03/02/18 00:33 Temperature 97.8 F Pulse Rate 70 72 71 Respiratory Rate 17 15 19 Blood Pressure 124/61 Pulse Oximetry 95 03/02/18 04:00 03/02/18 04:45 03/02/18 07:39 Temperature 97.8 F Pulse Rate 70 70 82 Respiratory Rate 15 18 14 Blood Pressure 128/60 Pulse Oximetry 96 97 03/02/18 08:00 Temperature 97.4 F L Pulse Rate 67 Respiratory Rate 16 Blood Pressure 125/60 Pulse Oximetry 95 Intake & Output 03/01/18 03/02/18 03/02/18 18:59 06:59 18:59 Intake Total 480 / 480 Output Total 450 / 450 Balance 480 / 480 -450 / -450 Weight 68.6 kg Intake: Oral 480 / 480 Output: Urine/Stool Mix 450 / 450 Other: # Incontinent Voids 2 Date of Last Bowel Movement 03/01/18 03/02/18 03/02/18 # Bowel Movements 2 1 Narrative: GENERAL: NAD SKIN: Warm and dry. HEAD: Normocephalic. EYES: No scleral icterus. No injection or drainage. NECK: Supple, trachea midline. No JVD or lymphadenopathy. CARDIOVASCULAR: Regular rate and rhythm without murmurs, gallops, or rubs. RESPIRATORY: Breath sounds equal bilaterally. No accessory muscle use. GASTROINTESTINAL: Abdomen soft, non-tender, nondistended. GJ tube in place MUSCULOSKELETAL: No cyanosis, or edema. BACK: Nontender without obvious deformity. No CVA tenderness. - Urinary Catheter Management Indwelling Urethral Catheter Cath placed during this visit: yes Reason for continuing: Hourly intake/output Insertion date: 02/22/18 Insertion time: 20:00 Results - Labs CBC & Chem 7: 03/01/18 06:00 03/01/18 06:00 Laboratory Results - last 24 hr 03/01/18 03/01/18 03/02/18 17:17 22:50 05:24 POC Glucose 163 H 160 H 186 H 03/02/18 12:06 POC Glucose 154 H - Procedures G-J TUBE PLACEMENT DATE OF OPERATION: 02/13/2018 DATE OF PROCEDURE: 02/13/2018. PREOPERATIVE DIAGNOSIS: Feeding difficulty in adult, malnutrition, history of squamous cell cancer. POSTOPERATIVE DIAGNOSIS: Feeding difficulty in adult, malnutrition, history of squamous cell cancer. PROCEDURE PERFORMED: 1. Laparoscopic gastrojejunostomy tube placement. 22F 2. Laparoscopic lysis of adhesions. SURGEON: Dr. 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 Nasal cannula to maintain saturations greater than equal to 92% Incentive spirometry while awake Albuterol/ipratropium aerosols every 4 hours with albuterol aerosols every 2 hours as needed for dyspnea Currently on methylprednisolone succinate 40 mg IV every 12 hours. Wean over the next several days Extubated 02/25/2018, no stridor breathing comfortably Appreciate consult from ENT Dr. Perrin. Flexible fiberoptic laryngoscopy did not show evidence of residual disease but showed scarring from radiation Septic shock-resolved Oral pharyngeal dysphagia History of esophageal stricture status post GJ tube placement Severe chronic protein energy malnutrition. Continue vital 1.5 at 65 mL/h via jejunostomy for nutrition recommendations. GI following, plan for outpatient esophageal dilation. Lansoprazole for GI prophylaxis Docusate sodium/senna 1 tablet twice daily for bowel regimen BETSEY overlying CKD Stage IIIa Orellana in place. 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 Leukocytosis Normocytic anemia Follow-up imaging previously demonstrated no residual disease. ENT eval-no residual disease. Appreciate input from medical oncology, Dr. Pineda. Monitor CBC Hypothyroidism Hyperglycemia likely steroid-induced Continue levothyroxine 100 mcg via tube. daily/home medication. Monitor bedside glucose every 6 hours initiate low-dose insulin aspart sliding scale as indicated. PROPH: SCDs/heparin subcu for DVT prophylaxis-hold heparin for 24 hours,. Lansoprazole for stress ulcer prophylaxis.
[2018-03-03] MEDS: Oral Hygiene Kit OROPHARYNG SCH ×4 (00:37→16:40)
[2018-03-03] MEDS: [UNRECOGNIZED DRUG - SUPPLY] OROPHARYNG SCH ×4 (00:38→16:40)
[2018-03-03] MEDS: Insulin NovoLOG Aspart Correctional Sugar Inj SQ SCH ×5 (00:59→17:30)
[2018-03-03] MEDS: MethylPREDNISolone Sod Succinate Inj 40 MG/ML Vial IV.PUSH SCH ×2 (01:00→13:20)
[2018-03-03] MEDS: Heparin - SQ 10,000 UNITS/ML Vial SQ SCH ×3 (06:11→21:27)
[2018-03-03] MEDS: Artificial Tears Opth Drops 15 ML Bottle EACH EYE SCH ×3 (06:11→21:28)
[2018-03-03] MEDS: Levothyroxine 100 MCG Tablet PO SCH (06:11)
[2018-03-03] MEDS: Chlorhexidine 0.12% Oral Kit 15 ML UDC OROPHARYNG SCH ×3 (09:18→21:32)
[2018-03-03] MEDS: Lansoprazole ODT 15 MG Tablet G-TUBE SCH (09:19)
[2018-03-03] MEDS: Senna/Docusate Sodium 8.6/50 MG Tablet G-TUBE SCH ×2 (09:19→21:27)
--- NOTE | 2018-03-03 12:08 | P.PNIM ---
Subjective Interval history: Breathing much better. No active shortness of breath or wheezes. No complaint of chest pain. Feeling better. Physical Exam Vital signs: Vital Signs 03/02/18 16:00 03/02/18 20:00 03/03/18 00:00 Temperature 98.2 F 97.8 F 97.2 F L Pulse Rate 18 L 67 64 Respiratory Rate 18 18 18 Blood Pressure 118/55 L 135/64 119/57 L Pulse Oximetry 96 95 96 03/03/18 04:00 03/03/18 08:00 Temperature 97.3 F L 97.5 F L Pulse Rate 66 123 H Respiratory Rate 24 18 Blood Pressure 119/58 L 128/61 Pulse Oximetry 92 L 94 L Intake & Output 03/02/18 03/03/18 03/03/18 18:59 06:59 18:59 Intake Total 480 / 480 1318 / 1318 Balance 480 / 480 1318 / 1318 Weight 66.2 kg Intake: Oral 480 / 480 240 / 240 Tube Feeding 788 / 788 Tube Irrigant 50 / 50 Other 240 / 240 Other: # Voids 4 3 Date of Last Bowel Movement 03/02/18 03/02/18 # Bowel Movements 2 1 Narrative: GENERAL: Well-nourished well-developed white female in NAD SKIN: Warm and dry. HEAD: Normocephalic. EYES: No scleral icterus. No injection or drainage. NECK: Supple, trachea midline. No JVD or lymphadenopathy. CARDIOVASCULAR: Relatively clear bilaterally. RESPIRATORY: Breath sounds equal bilaterally. No accessory muscle use. GASTROINTESTINAL: Abdomen soft, non-tender, nondistended. GJ tube in place MUSCULOSKELETAL: No cyanosis, or edema. - Urinary Catheter Management Indwelling Urethral Catheter Cath placed during this visit: yes Reason for continuing: Hourly intake/output Insertion date: 02/22/18 Insertion time: 20:00 Results - Labs CBC & Chem 7: 03/01/18 06:00 03/01/18 06:00 Laboratory Results - last 24 hr 03/02/18 03/02/18 03/03/18 12:06 17:25 00:53 POC Glucose 154 H 144 H 156 H 03/03/18 06:10 POC Glucose 149 H - Procedures G-J TUBE PLACEMENT DATE OF OPERATION: 02/13/2018 DATE OF PROCEDURE: 02/13/2018. PREOPERATIVE DIAGNOSIS: Feeding difficulty in adult, malnutrition, history of squamous cell cancer. POSTOPERATIVE DIAGNOSIS: Feeding difficulty in adult, malnutrition, history of squamous cell cancer. PROCEDURE PERFORMED: 1. Laparoscopic gastrojejunostomy tube placement. 22F 2. Laparoscopic lysis of adhesions. SURGEON: Dr. Tarik Kraus Assessment and Plan - Plan Acute respiratory failure -extubated and resolved at this time. Aspiration pneumonia History of right tonsillar and epiglottic cancer Treated with chemo-radiation completed April 18, 2015. Nasal cannula to maintain saturations greater than equal to 92%, currently on 2- 3 L of nasal cannula Incentive spirometry while awake Albuterol/ipratropium aerosols every 4 hours with albuterol aerosols every 2 hours as needed for dyspnea Currently on methylprednisolone succinate 40 mg IV every 12 hours. Transition to prednisone Extubated 02/25/2018, no stridor breathing comfortably Appreciate consult from ENT Dr. Perrin. Flexible fiberoptic laryngoscopy did not show evidence of residual disease but showed scarring from radiation Septic shock-resolved, previously on pressors and intensive care unit Oral pharyngeal dysphagia History of esophageal stricture status post GJ tube placement Severe chronic protein energy malnutrition. Continue vital 1.5 at 65 mL/h via jejunostomy for nutrition recommendations. GI following, plan for outpatient esophageal dilation. 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 Leukocytosis Normocytic anemia Follow-up imaging previously demonstrated no residual disease. ENT eval-no residual disease. Appreciate input from medical oncology, Dr. Pineda. Monitor CBC Hypothyroidism Hyperglycemia likely steroid-induced Continue levothyroxine 100 mcg via tube. daily/home medication. Monitor bedside glucose every 6 hours initiate low-dose insulin aspart sliding scale as indicated. Malnutritioncontinue with vital tube feeds PROPH: SCDs/heparin subcu for DVT prophylaxis-hold heparin for 24 hours,. Lansoprazole for stress ulcer prophylaxis. Discharge Planning: To shelter facility
--- NOTE | 2018-03-03 12:30 | P.DS ---
Date of admission: 02/11/18 21:36 Primary care physician: Ana M Mccallum Anticipated date of discharge: 03/03/18 Brief History from admission: 73-year-old white female admitted initially for GJ tube switched out and later developed aspiration pneumonia. DS: Diagnosis - Discharge Diagnosis (1) Aspiration pneumonia Status: Resolved Diagnosis: Principal (2) Septic shock Status: Resolved Diagnosis: Principal (3) History of laryngeal cancer Status: Chronic Diagnosis: Secondary (4) Dysphagia Status: Chronic Diagnosis: Secondary DS: Summary Hospital Course: These are the medical issues addressed during this hospitalization: Acute respiratory failure -requiring previous intubation and now extubated and resolved at this time. Aspiration pneumonia History of right tonsillar and epiglottic cancer Treated with chemo-radiation completed April 18, 2015. Nasal cannula to maintain saturations greater than equal to 92%, currently on 2- 3 L of nasal cannula Incentive spirometry while awake Albuterol/ipratropium aerosols every 4 hours with albuterol aerosols every 2 hours as needed for dyspnea Currently on methylprednisolone succinate 40 mg IV every 12 hours. Transition to prednisone 20 mg p.o. daily for 5 more days Extubated 02/25/2018, no stridor breathing comfortably Appreciate consult from ENT Dr. Perrin. Flexible fiberoptic laryngoscopy did not show evidence of residual disease but showed scarring from radiation Septic shock-resolved, previously on pressors in intensive care unit Oral pharyngeal dysphagia History of esophageal stricture status post GJ tube placement Severe chronic protein energy malnutrition. Continue vital 1.5 at 65 mL/h via jejunostomy for nutrition recommendations. GI following, plan for outpatient esophageal dilation. Lansoprazole for GI prophylaxis Docusate sodium/senna 1 tablet twice daily for bowel regimen Depressive disorder NOS Allergic rhinitis Acetaminophen 650 mg by tube every 6 hours as needed fever/pain 1 through 10 Continue escitalopram 20 mg by GJ tube daily for depression Continue cetirizine 10 mg daily for allergic rhinitis BETSEY overlying CKD Stage II -improving removed Orellana catheter Replace electrolytes accordingly Aspiration pneumonia Continue IV aztreonam for 7 days total s/p Aztreonam March 01, 2018 and Flagyl. History of right tonsillar and epiglottic cancer Treated with chemo-radiation completed April 18, 2015. Leukocytosis Normocytic anemia Follow-up imaging previously demonstrated no residual disease. ENT eval-no residual disease. Appreciate input from medical oncology, Dr. Pineda. Monitor CBC Hypothyroidism Hyperglycemia likely steroid-induced Continue levothyroxine 100 mcg via tube. daily/home medication. Monitor bedside glucose every 6 hours initiate low-dose insulin aspart sliding scale as indicated. Malnutritioncontinue with vital tube feeds PROPH: SCDs/heparin subcu for DVT prophylaxis-hold heparin for 24 hours,. Lansoprazole for stress ulcer prophylaxis. - Time Spent with Patient Total time spent providing and/or coordinating discharge services: Greater than 30 minutes - Quality: VTE Deep Vein Thrombosis/Pulmonary Embolism Present on Admission: No Exam Vital signs: Vital Signs 03/02/18 16:00 03/02/18 20:00 03/03/18 00:00 Temperature 98.2 F 97.8 F 97.2 F L Pulse Rate 18 L 67 64 Respiratory Rate 18 18 18 Blood Pressure 118/55 L 135/64 119/57 L Pulse Oximetry 96 95 96 03/03/18 04:00 03/03/18 08:00 Temperature 97.3 F L 97.5 F L Pulse Rate 66 123 H Respiratory Rate 24 18 Blood Pressure 119/58 L 128/61 Pulse Oximetry 92 L 94 L Intake & Output 03/02/18 03/03/18 03/03/18 18:59 06:59 18:59 Intake Total 480 / 480 1318 / 1318 Balance 480 / 480 1318 / 1318 Weight 66.2 kg Intake: Oral 480 / 480 240 / 240 Tube Feeding 788 / 788 Tube Irrigant 50 / 50 Other 240 / 240 Other: # Voids 4 3 Date of Last Bowel Movement 03/02/18 03/02/18 # Bowel Movements 2 1 Narrative: GENERAL: This is a well-nourished, well-developed patient, in no apparent distress. CARDIOVASCULAR: Regular rate and rhythm RESPIRATORY: Relatively clear bilaterally GASTROINTESTINAL: Abdomen soft, non-tender, nondistended. Normal active bowel sounds, GJ tube in place MUSCULOSKELETAL: Extremities without clubbing, cyanosis, or edema. NEURO: Alert & Oriented x4 to person, place, time, situation. Moves all ext x4 with generalized weakness Results Procedures completed during hospitalization: G-J TUBE PLACEMENT DATE OF OPERATION: 02/13/2018 DATE OF PROCEDURE: 02/13/2018. PROCEDURE PERFORMED: 1. Laparoscopic gastrojejunostomy tube placement. 22F 2. Laparoscopic lysis of adhesions. SURGEON: Dr. Tarik Kraus Mechanical ventilation Labs on day of discharge: Labs from last 24 hours 03/03/18 03/03/18 03/02/18 06:10 00:53 17:25 POC Glucose 149 H 156 H 144 H - Impressions ITS Impressions Chest CT 02/23/18 00:00 CONCLUSION: 1. Spiculated 1 cm nodule in the right upper lobe suspicious for small malignancy. 2. Small bilateral pleural effusions with dependent atelectasis and consolidation in both lungs. 3. No pathologically enlarged lymph nodes are identified. Moderate coronary calcification. Venous Doppler Study 02/23/18 00:00 CONCLUSION: 1. The study is negative for bilateral lower extremity deep venous thrombosis. Soft Tissue Neck CT 02/24/18 00:00 CONCLUSION: Unremarkable CT scan of the neck. No masses are identified. Endotracheal tube in place Chest X-Ray 02/28/18 06:00 CONCLUSION: Stable bibasilar airspace disease. Discharge Plan - Discharge Disposition Patient Disposition: Discharge to SNF - Discharge Condition Condition: Good - Discharge Order Discharge Orders: Discharge Order (Routine); Ordered 03/03/18 Ordered By: Brenda Beyer - Discharge Details Anticipated Discharge Date: 03/03/18 - Physicians Team Primary Care Provider: Ana M Mccallum Attending Provider: Brenda Beyer Other Providers: Surgeons,[facility] ; Cristopher Damian MD ; Jose Narayan MD ; Gopal Pineda MD ; [facility] ; China Wan MD ; [facility],[place] ; Vita Ballesteros MD ; Alireza Perrin MD ; [employer] - Rxs /Orders / Referrals /Forms Prescriptions: New acetaminophen 650 mg/20.3 mL Solution 650 mg PO Q6H PRN (Reason: Pain 1-10 Or Temp > 100.4 F) RF: 0 albuterol sulfate 2.5 mg /3 mL (0.083 %) Solution For Nebulization 2.5 mg NEB Q2HR NEB PRN (Reason: Dyspnea) RF: 0 prednisone [Gage] 5 mg Tablet,Delayed Release (Dr/Ec) 20 mg PO DAILY Qty: 5 RF: 0 Continue cetirizine 10 mg Tablet 10 mg PO DAILY escitalopram oxalate 20 mg Tablet 20 mg PO DAILY levothyroxine 100 mcg Capsule 100 mcg PO DAILY omeprazole 20 mg Tablet,Delayed Release (Dr/Ec) 20 mg PO DAILY Referrals: Ana M Mccallum [Primary Care Provider] - See Instructions ( Please call the physician's office to book the appointment to be seen within [1 week].) - Discharge Instructions Additional Instructions: FOLLOW UP WITH YOUR PRIMARY CARE PROVIDER IN 3-4 DAYS. - Post Discharge Care Plan Care Plan Goals: Your Health Problems: Aspiration pneumonia, infection in your lungs Goals to Promote Your Health: * To prevent worsening of your condition * To maintain your health at the optimal level Directions to Meet Your Goals: * Take your medications as prescribed * Follow your dietary instruction * Follow activity as directed * Keep your appointments as scheduled * Take your immunizations and boosters as scheduled * If your symptoms worsen call your PCP * If no PCP go to Urgent Care or Emergency Room Smoking is dangerous to your health. Avoid second hand smoke. You may reach the 24-hour crisis hotline for domestic abuse at .
[2018-03-04] MEDS: MethylPREDNISolone Sod Succinate Inj 40 MG/ML Vial IV.PUSH SCH ×2 (00:28→12:39)
[2018-03-04] MEDS: Oral Hygiene Kit OROPHARYNG SCH ×3 (02:22→12:36)
[2018-03-04] MEDS: [UNRECOGNIZED DRUG - SUPPLY] OROPHARYNG SCH ×3 (02:22→12:36)
[2018-03-04] MEDS: Artificial Tears Opth Drops 15 ML Bottle EACH EYE SCH ×2 (02:50→12:36)
[2018-03-04] MEDS: Levothyroxine 100 MCG Tablet PO SCH (06:09)
[2018-03-04] MEDS: Heparin - SQ 10,000 UNITS/ML Vial SQ SCH (06:09)
[2018-03-04] MEDS: Insulin NovoLOG Aspart Correctional Sugar Inj SQ SCH ×3 (06:23→12:36)
[2018-03-04] MEDS: Chlorhexidine 0.12% Oral Kit 15 ML UDC OROPHARYNG SCH (07:05)
[2018-03-04] MEDS: Lansoprazole ODT 15 MG Tablet G-TUBE SCH (09:16)
[2018-03-04] MEDS: Senna/Docusate Sodium 8.6/50 MG Tablet G-TUBE SCH (09:17)
--- NOTE | 2018-03-04 09:55 | P.DS ---
Date of admission: 02/11/18 21:36 Primary care physician: Ana M Mccallum Anticipated date of discharge: 03/04/18 Brief History from admission: 73-year-old white female admitted initially for GJ tube switched out and later developed aspiration pneumonia. DS: Diagnosis - Discharge Diagnosis (1) Aspiration pneumonia Status: Resolved (2) Septic shock Status: Resolved (3) History of laryngeal cancer Status: Chronic (4) Dysphagia Status: Chronic DS: Medications - Discharge Medications Prescriptions: prednisone [Gage] 20 mg PO DAILY #5 tab DS: Summary - Time Spent with Patient Total time spent providing and/or coordinating discharge services: - Quality: VTE Deep Vein Thrombosis/Pulmonary Embolism Present on Admission: No Exam Vital signs: Vital Signs 03/03/18 12:00 03/03/18 16:00 03/03/18 20:00 Temperature 97.4 F L 97.7 F 97.9 F Pulse Rate 72 70 58 L Respiratory Rate 18 18 17 Blood Pressure 127/59 L 120/58 L 129/60 Pulse Oximetry 93 L 97 93 L 03/04/18 00:00 03/04/18 04:00 Temperature 97.6 F 97.8 F Pulse Rate 58 L 59 L Respiratory Rate 19 19 Blood Pressure 134/63 128/89 Pulse Oximetry 97 94 L Intake & Output 03/03/18 03/04/18 03/04/18 18:59 06:59 18:59 Intake Total 420 / 420 Output Total 600 / 600 1550 / 1550 Balance -600 / -600 -1130 / -1130 Weight 66.4 kg Intake: Oral 420 / 420 Output: Urine 600 / 600 1550 / 1550 Other: # Bowel Movements 1 Results Procedures completed during hospitalization: G-J TUBE PLACEMENT DATE OF OPERATION: 02/13/2018 DATE OF PROCEDURE: 02/13/2018. PROCEDURE PERFORMED: 1. Laparoscopic gastrojejunostomy tube placement. 22F 2. Laparoscopic lysis of adhesions. SURGEON: Dr. Tarik Kraus Mechanical ventilation Labs on day of discharge: Labs from last 24 hours 03/04/18 03/04/18 03/03/18 06:20 02:21 16:58 POC Glucose 161 H 132 H 136 H 03/03/18 12:38 POC Glucose 122 H - Impressions ITS Impressions Chest CT 02/23/18 00:00 CONCLUSION: 1. Spiculated 1 cm nodule in the right upper lobe suspicious for small malignancy. 2. Small bilateral pleural effusions with dependent atelectasis and consolidation in both lungs. 3. No pathologically enlarged lymph nodes are identified. Moderate coronary calcification. Venous Doppler Study 02/23/18 00:00 CONCLUSION: 1. The study is negative for bilateral lower extremity deep venous thrombosis. Soft Tissue Neck CT 02/24/18 00:00 CONCLUSION: Unremarkable CT scan of the neck. No masses are identified. Endotracheal tube in place Chest X-Ray 02/28/18 06:00 CONCLUSION: Stable bibasilar airspace disease. Discharge Plan - Discharge Disposition Patient Disposition: Discharge to SNF - Discharge Condition Condition: Good - Discharge Order Discharge Orders: Discharge Order (Routine); Ordered 03/03/18 Ordered By: Brenda Beyer - Discharge Details Anticipated Discharge Date: 03/03/18 - Physicians Team Primary Care Provider: Ana M Mccallum Attending Provider: Brenda Beyer Other Providers: Surgeons,[facility] ; Cristopher Damian MD ; Jose Narayan MD ; Gopal Pineda MD ; [facility],[place] ; China Wan MD ; [facility],[place] ; Vita Ballesteros MD ; Alireza Perrin MD ; [employer] - Rxs /Orders / Referrals /Forms Prescriptions: New acetaminophen 650 mg/20.3 mL Solution 650 mg PO Q6H PRN (Reason: Pain 1-10 Or Temp > 100.4 F) RF: 0 albuterol sulfate 2.5 mg /3 mL (0.083 %) Solution For Nebulization 2.5 mg NEB Q2HR NEB PRN (Reason: Dyspnea) RF: 0 prednisone [Gage] 5 mg Tablet,Delayed Release (Dr/Ec) 20 mg PO DAILY Qty: 5 RF: 0 Continue cetirizine 10 mg Tablet 10 mg PO DAILY escitalopram oxalate 20 mg Tablet 20 mg PO DAILY levothyroxine 100 mcg Capsule 100 mcg PO DAILY omeprazole 20 mg Tablet,Delayed Release (Dr/Ec) 20 mg PO DAILY Referrals: [facility] [Outside] - See Instructions Ana M Mccallum [Primary Care Provider] - See Instructions ( Please call the physician's office to book the appointment to be seen within [1 week].) - Discharge Instructions Additional Instructions: FOLLOW UP WITH YOUR PRIMARY CARE PROVIDER IN 3-4 DAYS. - Post Discharge Care Plan Care Plan Goals: Your Health Problems: Aspiration pneumonia, infection in your lungs Goals to Promote Your Health: * To prevent worsening of your condition * To maintain your health at the optimal level Directions to Meet Your Goals: * Take your medications as prescribed * Follow your dietary instruction * Follow activity as directed * Keep your appointments as scheduled * Take your immunizations and boosters as scheduled * If your symptoms worsen call your PCP * If no PCP go to Urgent Care or Emergency Room Smoking is dangerous to your health. Avoid second hand smoke. You may reach the 24-hour crisis hotline for domestic abuse at .
--- NOTE | 2018-03-04 10:00 | P.PNIM ---
Subjective Interval history: Patient states that she has no active shortness of breath doing well. Physical Exam Vital signs: Vital Signs 03/03/18 12:00 03/03/18 16:00 03/03/18 20:00 Temperature 97.4 F L 97.7 F 97.9 F Pulse Rate 72 70 58 L Respiratory Rate 18 18 17 Blood Pressure 127/59 L 120/58 L 129/60 Pulse Oximetry 93 L 97 93 L 03/04/18 00:00 03/04/18 04:00 Temperature 97.6 F 97.8 F Pulse Rate 58 L 59 L Respiratory Rate 19 19 Blood Pressure 134/63 128/89 Pulse Oximetry 97 94 L Intake & Output 03/03/18 03/04/18 03/04/18 18:59 06:59 18:59 Intake Total 420 / 420 Output Total 600 / 600 1550 / 1550 Balance -600 / -600 -1130 / -1130 Weight 66.4 kg Intake: Oral 420 / 420 Output: Urine 600 / 600 1550 / 1550 Other: # Bowel Movements 1 Narrative: GENERAL: Well-nourished well-developed white female in NAD with nasal cannula SKIN: Warm and dry. HEAD: Normocephalic. EYES: No scleral icterus. No injection or drainage. NECK: Supple, trachea midline. No JVD or lymphadenopathy. CARDIOVASCULAR: Relatively clear bilaterally. RESPIRATORY: Breath sounds equal bilaterally. No accessory muscle use. GASTROINTESTINAL: Abdomen soft, non-tender, nondistended. GJ tube in place MUSCULOSKELETAL: No cyanosis, or edema. - Urinary Catheter Management Indwelling Urethral Catheter Cath placed during this visit: yes Reason for continuing: Hourly intake/output Insertion date: 02/22/18 Insertion time: 20:00 Results - Labs CBC & Chem 7: 03/01/18 06:00 03/01/18 06:00 Laboratory Results - last 24 hr 03/03/18 03/03/18 03/04/18 12:38 16:58 02:21 POC Glucose 122 H 136 H 132 H 03/04/18 06:20 POC Glucose 161 H Assessment and Plan - Assessment (1) Aspiration pneumonia Code(s): J69.0 - Pneumonitis due to inhalation of food and vomit Status: Resolved (2) Septic shock Code(s): A41.9 - Sepsis, unspecified organism; R65.21 - Severe sepsis with septic shock Status: Resolved (3) History of laryngeal cancer Code(s): Z85.21 - Personal history of malignant neoplasm of larynx Status: Chronic (4) Dysphagia Code(s): R13.10 - Dysphagia, unspecified Status: Chronic - Plan Acute respiratory failure -extubated and resolved at this time. Aspiration pneumonia History of right tonsillar and epiglottic cancer Treated with chemo-radiation completed April 18, 2015. Nasal cannula to maintain saturations greater than equal to 92%, currently on 2 L of nasal cannula Incentive spirometry while awake Albuterol/ipratropium aerosols every 4 hours with albuterol aerosols every 2 hours as needed for dyspnea Currently on methylprednisolone succinate 40 mg IV every 12 hours. Transition to prednisone 20 mg p.o. daily Extubated 02/25/2018, no stridor breathing comfortably Appreciate consult from ENT Dr. Perrin. Flexible fiberoptic laryngoscopy did not show evidence of residual disease but showed scarring from radiation Septic shock-resolved, previously on pressors and intensive care unit Oral pharyngeal dysphagia History of esophageal stricture status post GJ tube placement Severe chronic protein energy malnutrition. Continue vital 1.5 at 65 mL/h via jejunostomy for nutrition recommendations. GI following, plan for outpatient esophageal dilation. Lansoprazole for GI prophylaxis Docusate sodium/senna 1 tablet twice daily for bowel regimen Depressive disorder NOS Allergic rhinitis Acetaminophen 650 mg by tube every 6 hours as needed fever/pain 1 through 10 Continue escitalopram 20 mg by GJ tube daily for depression Continue cetirizine 10 mg daily for allergic rhinitis BETSEY overlying CKD Stage II -improving removed Orellana catheter Replace electrolytes accordingly Aspiration pneumonia Completed IV aztreonam for 7 days total, discontinued intranasal IV 02/26 s/p Aztreonam March 01, 2018 History of right tonsillar and epiglottic cancer Treated with chemo-radiation completed April 18, 2015. Leukocytosis Normocytic anemia Follow-up imaging previously demonstrated no residual disease. ENT eval-no residual disease. Appreciate input from medical oncology, Dr. Pineda. Monitor CBC Hypothyroidism Hyperglycemia likely steroid-induced Continue levothyroxine 100 mcg via tube. daily/home medication. Monitor bedside glucose every 6 hours initiate low-dose insulin aspart sliding scale as indicated. Malnutritioncontinue with vital tube feeds PROPH: SCDs/heparin subcu for DVT prophylaxis-hold heparin for 24 hours,. Lansoprazole for stress ulcer prophylaxis. Discharge Planning: To [facility] facility
== END 2018-03-04 13:28 ==
LOC: N06 21:36 → HIMC 02-22 18:26 → N04 02-27 17:37
PROVIDERS: ADMIT Family Medicine; ATTEND Family Medicine

== ENCOUNTER 2018-03-06 17:46 | Inpatient (IN) ==
[2018-03-06] MEDS ORDERED: Sod Chloride 0.9% Inj 1,000 ML IV.SIG ONE ×2 (17:56→19:03)
[2018-03-06] MEDS ORDERED: Azithromycin Inj 500 MG in Sodium Chlor 0.9% Inj 250 ML IV.SIG ONE (17:56)
[2018-03-06] MEDS ORDERED: Vancomycin Inj 1 GM/200 ML PIGGYBACK IV.SIG ONE (17:56)
[2018-03-06 18:39] LABS: Bilirubin,Urine Negative (Negative); Clarity,Urine Slightly Cloudy (Clear); Color,Urine Yellow (Yellw/Straw); Glucose,Urine (UA) Negative (Negative); Leukocyte Esterase,Urine Moderate (Negative); Nitrite,Urine Negative (Negative)
[2018-03-06 18:51] LABS: RBC,Urine 0-3 /hpf (0-3); Squamous Epithelial Cell,Urine 0-5 /hpf (0-5)
[2018-03-06 18:52] LABS: Amorphous Sediment,Urine Few /hpf
[2018-03-06 18:53] LABS: Bacteria,Urine Few /hpf
[2018-03-06 19:20] LABS: Baso # (Auto) 0.1 th/mm3 (0.0-0.2); Baso % (Auto) 0.9 % (0.0-2.0); Eos # (Auto) 0.1 th/mm3 (0.0-0.4); Eos % (Auto) 0.5 % (0.0-4.0); Hematocrit 23.3 % (35.0-46.0); Hemoglobin 8.3 gm/dL (11.6-15.3); Lymph # (Auto) 0.4 th/mm3 (1.0-4.8); Lymph % (Auto) 2.5 % (9.0-44.0); Mean Corpuscular HGB Conc 35.6 % (32.0-36.0); Mean Corpuscular Hemoglobin 32.8 pg (27.0-34.0); Mono # (Auto) 1.5 th/mm3 (0.0-0.9); Mono % (Auto) 10.2 % (0.0-8.0); Neut # (Auto) 12.3 th/mm3 (1.8-7.7); Neut % (Auto) 85.9 % (16.0-70.0); Platelet Count 283 th/mm3 (150-450); Potassium 4.9 meq/L (3.5-5.1); Red Blood Count 2.53 mil/mm3 (4.00-5.30); Red Cell Distribution Width 17.9 % (11.6-17.2); White Blood Count 14.4 th/mm3 (4.0-11.0)
[2018-03-06 19:26] LABS: Activated Partial Thrombo Time 24.7 sec (24.3-30.1); INR 1.1 Ratio; Prothrombin Time 11.1 sec (9.8-11.6)
--- NOTE | 2018-03-06 19:29 | XR ---
EXAM DATE: 03/06/2018 7:17 PM EDT AGE/SEX: 73 years / Female INDICATIONS: Post intubation. CLINICAL DATA: This is the patient's initial encounter. Patient reports that signs and symptoms have been present for 1 day and indicates a pain score of Nonresponsive. MEDICAL/SURGICAL HISTORY: Non-responsive. Non-responsive. COMPARISON: [facility] [place]ST 1V SINGLE AP, 02/28/2018. . FINDINGS: Hazy airspace opacity in the central lungs bilaterally, right greater than left without consolidation suggests pulmonary edema. This is a new finding compared to prior chest x-ray. There is persistent c onsolidation in the left lower lobe with loss of delineation left hemidiaphragm. The heart is stable in size. ET tube tip is well above the lashay. CONCLUSION: 1. ET tube in good position. 2. Interval development of nonconsolidative airspace opacities in the central lungs bilaterally sugg esting pulmonary edema. 3. Stable left lower lobe consolidation. Electronically signed by: Gab Faria MD 03/06/2018 7:27 PM EDT
[2018-03-06 19:36] LABS: ABG Base Excess 1.4 mmol/L (-2-2); ABG PCO2 40 mmHg (38-42); ABG PO2 265 mmHg (61-120)
[2018-03-06 19:59] LABS: Albumin 1.6 g/dL (3.4-5.0); Calcium 7.1 mg/dL (8.5-10.1); Carbon Dioxide 27.4 meq/L (21.0-32.0); Total Protein 4.8 g/dL (6.4-8.2); Troponin I 0.06 ng/mL (0.02-0.05)
[2018-03-06] MEDS ORDERED: fentaNYL 10 mcg/mL Premix Drip 2,500 MCG/250 ML BAG IV.SIG PRN (20:02)
[2018-03-06 20:18] LABS: Lymphocytes 19 % (9-44); Metamyelocytes 1 % (0-1); Monocytes 2 % (0-8)
[2018-03-06 20:19] LABS: RBC Morphology Normal (Normal)
--- NOTE | 2018-03-06 20:30 | ED ---
HPI General Chief complaint: Respiratory Symptoms Stated complaint: RESPIRATORY DISTRESS Time Seen by Provider: 03/06/18 17:56 Source: EMS Mode of arrival: EMS Limitations: other (intubated) History of Present Illness HPI narrative: Patient is a 73 year old female who is brought in by EMS in respiratory failure. Per EMS, patient had an O2 sat in the 50s on room air. She was intubated prior to arrival. EMS states she had a lot of "thick secretions" on intubation. Patient currently unable to provide any history. She was discharged 3 days ago after a stay for aspiration pneumonia and respiratory failure. Related Data Home Medications Medication Instructions Recorded Confirmed cetirizine 10 mg PO HS 02/15/18 03/06/18 escitalopram oxalate 20 mg FEEDING TUBE DAILY 02/15/18 03/06/18 levothyroxine 100 mcg FEEDING TUBE DAILY 02/15/18 03/06/18 omeprazole 20 mg PO DAILY 02/15/18 03/06/18 ascorbic acid (vitamin C) 500 mg FEEDING TUBE BID 03/06/18 03/06/18 multivitamin [Daily Multi-Vitamin] 1 tab FEEDING TUBE DAILY 03/06/18 03/06/18 prednisone 20 mg FEEDING TUBE DAILY 03/06/18 03/06/18 zinc 50 mg FEEDING TUBE DAILY 03/06/18 03/06/18 Previous Rx's Medication Instructions Recorded acetaminophen 650 mg PO Q6H PRN ml 03/03/18 albuterol sulfate 2.5 mg NEB Q2HR NEB PRN ml 03/03/18 Allergies Allergy/AdvReac Type Severity Reaction Status Date / Time epinephrine Allergy Severe TACHYCARDIA Verified 02/21/18 08:40 penicillin G Allergy Severe Hives Verified 02/21/18 08:40 peanut Allergy Intermediate ANAPHYLAXIS Verified 02/21/18 08:40 SOY Allergy Severe ANAPHYLAXIS Uncoded 05/15/16 12:23 COOKED LEGUMES Allergy Intermediate ANAPHYLAXIS Uncoded 06/07/14 07:25 Review of Systems ROS Unobtainable due to endotracheal tube PMFSH Medical History Medical History Arthritis (Acute) Barretts esophagus (Acute) GERD (gastroesophageal reflux disease) (Acute) Hypothyroidism (Acute) Skin cancer of forehead (Acute) 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) Surgical History Surgical History History of cholecystectomy (Acute) History of esophagogastroduodenoscopy (EGD) (Acute) History of hernia repair (Acute) History of tonsillectomy and adenoidectomy (Acute) Family History Family History Mother Breast cancer Father Heart problem Social History Social History Substance History: No History of Abuse Second Hand Smoke Exposure: No Smoking Status: Unknown if ever smoked Tobacco Type: Cigarettes years: 30 How Often Do You Have a Drink Containing Alcohol: Unable to Obtain Immunization History Tetanus Immunization: Unsure Hx Influenza Vaccine This Season: Unable to Assess Exam Narrative Exam Narrative: GENERAL: Intubated, but responsive to painful stimuli. SKIN: Focused skin assessment warm/dry. No wounds or signs of infection. HEAD: Atraumatic. Normocephalic. EYES: Pupils equal and round and reactive. No scleral icterus. ENT: Mucous membranes pink and moist. NECK: Trachea midline. No JVD. CARDIOVASCULAR: Regular rate and rhythm. No murmur appreciated. RESPIRATORY: No accessory muscle use. Rhonchi throughout both lungs. Breath sounds equal bilaterally. GASTROINTESTINAL: Abdomen soft, non-tender, nondistended. Well healing surgical wounds. J tube in place. MUSCULOSKELETAL: No obvious deformities. No clubbing. No cyanosis. No edema. Procedures Central Line Placement Right Femoral: Time Out Performed: Yes Patient Placed on Monitor/Pulse Ox: Yes MD Prep: mask, gown, gloves and other Central Line Prep: Chlorhexidine scrub Local anesthesia used: lidocaine 1% Amount of anesthesia used (mL): 4 Ultrasound Used for Placement: Yes Central Line Lumen Inserted: triple Post Procedure: sutured in place, good blood return, all ports aspirated, flushed, capped and sterile dressing applied Complications: none Course Hospital Course: Central line groin. Labs obtained. Chest x-ray ordered. Given IV fluids. Started on fentanyl and Versed for sedation. Levophed ordered for blood pressure. Covered with broad-spectrum antibiotics. Reevaluation(s) Reevaluation #1: Patient with some improvement of blood pressure with IV fluids Time: 20:28 Reevaluation #2: Patient's blood pressure is low, map of 50. Patient will be started on low-dose Levophed. Time: 21:20 Initial Documented Vital Signs Temperature 98 F 03/06/18 17:48 Pulse Rate 82 03/06/18 17:48 Blood Pressure 98/42 L 03/06/18 17:48 Pulse Oximetry 100 03/06/18 17:48 Last Documented Vital Signs Temperature 98.6 F 03/06/18 20:48 Pulse Rate 63 03/06/18 20:48 Respiratory Rate 16 03/06/18 20:50 Blood Pressure 106/48 L 03/06/18 20:48 Pulse Oximetry 100 03/06/18 20:45 Critical Care Time Critical Care Time: Yes Total Critical Care Time: 50 Attestation: Aggregate critical care time was 50 minutes. Time to perform other separately billable procedures was not included in the critical care time. My time did not include minutes spent treating any other patients simultaneously or on activities that did not directly contribute to the patient's treatment. The services I provided to this patient were to treat and/or prevent clinically significant deterioration that could result in: Serious illness or I provided critical care services requiring my management, as noted below: Chart data review, documentation time, medication orders and management, vital sign assessments/reviewing monitor data, ordering and reviewing lab tests, ordering and interpreting/reviewing x-rays and diagnostic studies, care of the patient and discussion of the patient with the admitting physicians. Medical Decision Making MDM Narrative Medical decision making narrative: Patient is a 73 year old female who comes in by EMS due to respiratory failure. Patient was intubated by EMS. Tube placement confirmed by CXR. Labs sent show low albumin, no other acute abnormalities. Hgb is 8.3, she has a history of anemia in the past. Given broad spectrum antibiotics. CXR shows pulmonary edema. Given Fentanyl and Versed for sedation. Levophed started for persistent hypotension. Patient admitted to ICU. Differential Diagnosis Differential Diagnosis: Sepsis versus pneumonia versus COPD versus CHF versus Medical Records Medical records reviewed: Yes I reviewed the patient's medical records. Lab Data Lab results reviewed: Yes I reviewed the patient's lab results. Result diagrams: 03/06/18 19:05 03/06/18 19:05 Lab Results 07/19/18 07/19/18 07/19/18 Range/Units 18:00 19:05 19:05 CBC w Diff Slide review pending WBC 14.4 H (4.0-11.0) th/mm3 RBC 2.53 L (4.00-5.30) mil/mm3 Hgb 8.3 L (11.6-15.3) gm/dL Hct 23.3 L (35.0-46.0) % MCV 92.0 (80.0-100.0) fL MCH 32.8 (27.0-34.0) pg MCHC 35.6 (32.0-36.0) % RDW 17.9 H (11.6-17.2) % Plt Count 283 (150-450) th/mm3 MPV 9.0 (7.0-11.0) fL Neut % (Auto) 85.9 H (16.0-70.0) % Lymph % (Auto) 2.5 L (9.0-44.0) % [place] % (Auto) 10.2 H (0.0-8.0) % Eos % (Auto) 0.5 (0.0-4.0) % Baso % (Auto) 0.9 (0.0-2.0) % Neut # (Auto) 12.3 H (1.8-7.7) th/mm3 Lymph # (Auto) 0.4 L (1.0-4.8) th/mm3 [place] # (Auto) 1.5 H (0.0-0.9) th/mm3 Eos # (Auto) 0.1 (0.0-0.4) th/mm3 Baso # (Auto) 0.1 (0.0-0.2) th/mm3 WBC Differential Manual diff final Seg Neuts % (Manual) 78 H (16-70) % Lymphocytes % (Manual) 19 (9-44) % Monocytes % (Manual) 2 (0-8) % Metamyelocytes % (Man) 1 (0-1) % Abs Neuts (Manual) 11.4 H (1.8-7.7) th/mm3 Differential Comment . Platelet Estimate High H (Normal) Platelet Morphology Enlarged H (Normal) RBC Morphology Normal (Normal) PT 11.1 (9.8-11.6) sec INR 1.1 Ratio APTT 24.7 (24.3-30.1) sec Puncture Site Patient Temperature O2 Saturation (90-100) % ABG pH (7.380-7.420) ABG pCO2 (38-42) mmHg ABG pO2 (61-120) mmHg ABG HCO3 (22-26) mmol/L ABG O2 Content (12.0-20.0) Vol % ABG Base Excess (-2-2) mmol/L ABG Methemoglobin (0-2) % Terrell Test Hemoglobin (12.0-16.0) G/DL Carboxyhemoglobin (0-4) % O2 Delivery Device Vent Setting Inspired O2 % Critical Value Sodium (136-145) meq/L Potassium (3.5-5.1) meq/L Chloride (98-107) meq/L Carbon Dioxide (21.0-32.0) meq/L Anion Gap (5-15) meq/L BUN (7-18) mg/dL Creatinine (0.50-1.00) mg/dL Estimated GFR (>89) mL/min Random Glucose (74-106) mg/dL Lactic Acid (0.4-2.0) mmol/L Calcium (8.5-10.1) mg/dL Prot Corrected Calcium (8.5-10.1) mg/dL Total Bilirubin (0.2-1.0) mg/dL AST (15-37) U/L ALT (10-53) U/L Alkaline Phosphatase (45-117) U/L Total Creatine Kinase (26-192) U/L Troponin I (0.02-0.05) ng/mL Total Protein (6.4-8.2) g/dL Albumin (3.4-5.0) g/dL Urine Color Yellow (Yellw/Straw) Urine Clarity Slightly cloudy (Clear) Urine pH 7.0 (5.0-8.5) Ur Specific [place] 1.010 (1.002-1.035) Urine Protein 30 H (Neg-Trace) mg/dL Urine Glucose (UA) Negative (Negative) mg/dL Urine Ketones Negative (Negative) mg/dL Urine Occult Blood Negative (Negative) Urine Nitrate Negative (Negative) Urine Bilirubin Negative (Negative) Urine Urobilinogen 1.0 (Less than 2) mg/dL Ur Leukocyte Esterase Moderate H (Negative) Urine RBC 0-3 (0-3) /hpf Urine WBC 9-20 H (0-5) /hpf Urine WBC Clumps Few H (None) Ur Squamous Epith Cells 0-5 (0-5) /hpf Amorphous Sediment Few H (None) /hpf Urine Bacteria Few H (None) /hpf Micro UA Comment Cath-culture ind Urine Culture Comments Cath-cult indicated Urine Comment Pediatric Immunologist 03/06/18 03/06/18 03/06/18 Range/Units 19:05 19:05 19:15 CBC w Diff WBC (4.0-11.0) th/mm3 RBC (4.00-5.30) mil/mm3 Hgb (11.6-15.3) gm/dL Hct (35.0-46.0) % MCV (80.0-100.0) fL MCH (27.0-34.0) pg MCHC (32.0-36.0) % RDW (11.6-17.2) % Plt Count (150-450) th/mm3 MPV (7.0-11.0) fL Neut % (Auto) (16.0-70.0) % Lymph % (Auto) (9.0-44.0) % [place] % (Auto) (0.0-8.0) % Eos % (Auto) (0.0-4.0) % Baso % (Auto) (0.0-2.0) % Neut # (Auto) (1.8-7.7) th/mm3 Lymph # (Auto) (1.0-4.8) th/mm3 [place] # (Auto) (0.0-0.9) th/mm3 Eos # (Auto) (0.0-0.4) th/mm3 Baso # (Auto) (0.0-0.2) th/mm3 WBC Differential Seg Neuts % (Manual) (16-70) % Lymphocytes % (Manual) (9-44) % Monocytes % (Manual) (0-8) % Metamyelocytes % (Man) (0-1) % Abs Neuts (Manual) (1.8-7.7) th/mm3 Differential Comment Platelet Estimate (Normal) Platelet Morphology (Normal) RBC Morphology (Normal) PT (9.8-11.6) sec INR Ratio APTT (24.3-30.1) sec Puncture Site Right radial Patient Temperature 98.6 O2 Saturation 97 (90-100) % ABG pH 7.42 (7.380-7.420) ABG pCO2 40 (38-42) mmHg ABG pO2 265 H (61-120) mmHg ABG HCO3 25 (22-26) mmol/L ABG O2 Content 9.3 L (12.0-20.0) Vol % ABG Base Excess 1.4 (-2-2) mmol/L ABG Methemoglobin 1.3 (0-2) % Terrell Test Present Hemoglobin 6.3 L* (12.0-16.0) G/DL Carboxyhemoglobin 1.4 (0-4) % O2 Delivery Device Ventilator Vent Setting Prvc/ac Inspired O2 100 % Critical Value Yes Sodium 135 L (136-145) meq/L Potassium 4.9 (3.5-5.1) meq/L Chloride 101 (98-107) meq/L Carbon Dioxide 27.4 (21.0-32.0) meq/L Anion Gap 7 (5-15) meq/L BUN 46 H (7-18) mg/dL Creatinine 1.00 (0.50-1.00) mg/dL Estimated GFR 55 L (>89) mL/min Random Glucose 131 H (74-106) mg/dL Lactic Acid 1.1 (0.4-2.0) mmol/L Calcium 7.1 L* (8.5-10.1) mg/dL Prot Corrected Calcium 8.4 L (8.5-10.1) mg/dL Total Bilirubin 0.6 (0.2-1.0) mg/dL AST 29 (15-37) U/L ALT 28 (10-53) U/L Alkaline Phosphatase 59 (45-117) U/L Total Creatine Kinase 19 L (26-192) U/L Troponin I 0.06 H (0.02-0.05) ng/mL Total Protein 4.8 L (6.4-8.2) g/dL Albumin 1.6 L (3.4-5.0) g/dL Urine Color (Yellw/Straw) Urine Clarity (Clear) Urine pH (5.0-8.5) Ur Specific [place] (1.002-1.035) Urine Protein (Neg-Trace) mg/dL Urine Glucose (UA) (Negative) mg/dL Urine Ketones (Negative) mg/dL Urine Occult Blood (Negative) Urine Nitrate (Negative) Urine Bilirubin (Negative) Urine Urobilinogen (Less than 2) mg/dL Ur Leukocyte Esterase (Negative) Urine RBC (0-3) /hpf Urine WBC (0-5) /hpf Urine WBC Clumps (None) Ur Squamous Epith Cells (0-5) /hpf Amorphous Sediment (None) /hpf Urine Bacteria (None) /hpf Micro UA Comment Urine Culture Comments Urine Comment Imaging Data Radiologist's impression: Chest X-Ray 03/06/18 17:56 CONCLUSION: 1. ET tube in good position. 2. Interval development of nonconsolidative airspace opacities in the central lungs bilaterally suggesting pulmonary edema. 3. Stable left lower lobe consolidation. ECG Data EKG Prior to Arrival: Yes Attestation: I personally reviewed and interpreted this ECG as follows: Interpretation: ECG shows sinus rhythm at a rate of 79, no ST elevation or depression, normal intervals. There is T-wave flattening in leads III and aVL. Discharge Plan Discharge Disposition Patient Disposition: 30 Still Patient Discharge Condition Condition: Critical Discharge Details Diagnosis: Respiratory failure, Aspiration pneumonia Physicians Team ED Provider: Andressa Guerrero Primary Care Provider: Primary Care Janice Kimball Attending Provider: Vita Ballesteros Discharge Interventions Interventions: Vital Signs Last Done: 03/06/18 20:48 Status ED Status: Admitted Patient
[2018-03-06] MEDS ORDERED: Midazolam 50 MG/50 ML Inj 50 MG/50 ML BAG IV.CONT PRN (21:11)
[2018-03-07] MEDS ORDERED: Bisacodyl 10 MG Supp RECTAL PRN (00:57)
[2018-03-07] MEDS ORDERED: Acetaminophen 325 MG Tablet PO PRN (00:57)
[2018-03-07] MEDS ORDERED: Chlorhexidine Gluconate 2% 1 Pack (2 Cloths) TOPICAL PRN (04:00)
[2018-03-07] MEDS ORDERED: Cathflo Activase Inj 2 MG Vial I-CATHETER ONE (04:35)
--- NOTE | 2018-03-07 05:40 | P.PCN ---
Date of procedure: 03/07/18 Procedure: DATE: 03/07/18 CENTRAL LINE PLACEMENT: Right internal jugular vein. INDICATION: Central venous access CONSENT Informed consent for procedure was obtained from patient's son after discussion of risks, benefits, alternatives. DESCRIPTION OF THE PROCEDURE The patient was placed in supine position, mild Trendelenburg. The skin was cleansed with Chloraprep x3. Additional barrier precautions included large sterile drape, sterile gloves, sterile gown, face mask, and hat. 1 % lidocaine was used for local anesthesia. Under direct ultrasound guidance and on second attempt, the vein was accessed with an introducer needle. The guide wire was advanced and confirmed to be intravenous by u/s. The tract was dilated. Using Seldinger technique a 7 [place] 20 cm antimicrobial coated triple-lumen catheter was advanced to a depth of 18 centimeters. The guide wire was removed. All ports had good return of dark venous blood and flushed easily with saline. The central line was secured with 2.0 silk because Stat-lock would not stay in place. A sterile dressing with antibiotic disc was applied. ESTIMATED BLOOD LOSS: Minimal COMPLICATIONS: No apparent complications. STAT chest x-ray is pending
--- NOTE | 2018-03-07 05:45 | P.HPCC ---
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 Hooper and Dr. Pineda (completed March 2015) with followup imaging negative for residual disease (05/2015, 09/2015). She was recently admitted to [facility] hospitalist service on after she presented with anemia with hemoglobin of 6.3, dysphagia and failure to thrive. She previously had G/J tube that became dislodged in May and she had been drinking nutritional shakes at home but had progressive difficulty with swallowing and developed cachexia. Modified barium swallow confirmed aspiration and she underwent laparoscopic GJ placement [address] Kraus. She had been n.p.o. and receiving continuous jejunal tube feeds when she developed severe respiratory distress and hypoxia requiring intubation 02/22/18. She had obvious evidence of aspiration on intubation. CT neck showed no e/o laryngeal mass. She was evaluated by ENT and underwent laryngoscopy that showed no evidence of disease recurrence and findings were consistent with radiation induced scarring. She was extubated 02/25. She was ultimately discharged to detention 03/03/18. She again presented to [facility] ED with respiratory failure. Reportedly sats were in the 50s upon their arrival. She was intubated at the scene. Reportedly a large amount of secretions suctioned out post intubation. White blood cell count was 14. She was hypotensive at [place] where she was administered 2 L normal saline bolus. ED physician then placed right femoral central line after unsuccessful placement right IJ central line. Levophed drip was started. Her son states he is a physician's mortgage loan assistant in the field of critical care and expresses frustration with recurrent respiratory failure. States she had jejunal tube feeds running at goal but had not taken anything p.o. Requests ENT reconsultation for recommendations for tracheostomy. - Diagnosis (1) Respiratory failure with hypoxia (2) History of laryngeal cancer (3) Dysphagia (4) Protein-calorie malnutrition, severe Inpatient Certification: I certify that the inpatient services were ordered in accordance with Medicare regulations governing the order. This includes certification that hospital inpatient services are reasonable and necessary and in the case of services not specified as inpatient-only under 42 CFR 419.22(n), that they are appropriately provided as inpatient services in accordance to with the 2-midnight benchmark under 43 CFR 412.3(e) Estimated Total Length of Stay (Days): 7 Plans for Post Hospital Care: Other acute care hospital [facility] - History History Provided By: Patient, Law Enforcement - Medical History Medical History: Medical History (Last Reviewed 03/20/18 @ 12:08 by Bindu Mckinney) Arthritis Barretts esophagus GERD (gastroesophageal reflux disease) Hypothyroidism 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 - Surgical History Surgical History: Surgical History (Last Reviewed 03/20/18 @ 12:08 by Bindu Mckinney) History of cholecystectomy History of esophagogastroduodenoscopy (EGD) History of hernia repair History of tonsillectomy and adenoidectomy - Family History Family History: Family History (Last Reviewed 03/20/18 @ 10:02 by Ioana Schuster) Mother Breast cancer Father Heart problem - Tobacco History Second Hand Smoke Exposure: No Smoking Status: Unknown if ever smoked Tobacco Type: Cigarettes years: 30 - Alcohol History How Often Do You Have a Drink Containing Alcohol: Unable to Obtain - Substance Use History Substance History: No History of Abuse - Immunization History Tetanus Immunization: Unsure Hx Influenza Vaccine This Season: Unable to Assess Medications and Allergies Active Medications: Active Medications Acetaminophen (Tylenol) 650 mg PO Q6H PRN PRN Reason: PAIN 1-10 AND/OR FEVER >101F Al Hydroxide/Mg Hydroxide (Milk Of Dhruv Bain) 30 ml PO Q12H PRN PRN Reason: Mild Constipation Albuterol (Albuterol Neb (Prn)) 2.5 mg NEB Q2HR NEB PRN PRN Reason: SHORTNESS OF BREATH/WHEEZING Albuterol (Duoneb Neb ([place])) 1 ampul NEB Q6HR NEB EUGENIA Last Admin: 03/07/18 05:22 Dose: Not Given Bisacodyl (Dulcolax Supp) 10 mg RECTAL DAILY PRN PRN Reason: SEVERE CONSITIPATION Chlorhexidine Gluconate (Chlorhexidine 2% Cloth) 3 pack TOPICAL DAILY@0400 EUGENIA Stop: 03/12/18 03:59 Chlorhexidine Gluconate (Chlorhexidine 2% Cloth) 3 pack TOPICAL DAILY@0400 PRN PRN Reason: Extra cloth needed Stop: 03/12/18 03:59 Fentanyl (Fentanyl 10 Mcg/Ml Premix Drip) 2,500 mcg in 250 mls @ 5 mls/hr IV.SIG TITRATE PRN; Protocol PRN Reason: Per Protocol Last Titration: 03/07/18 04:32 Dose: 100 mcg/hr, 10 mls/hr Norepinephrine Bitartrate (Levophed-Dextrose 4 Mg/250 Ml Drip) 4 mg in 250 mls @ 7.5 mls/hr IV.SIG TITRATE PRN; Protocol PRN Reason: Per Protocol Last Titration: 03/07/18 04:32 Dose: 10 mcg/min, 37.5 mls/hr Cefepime HCl 2,000 mg/ Sodium (Chloride) 100 mls @ 200 mls/hr IV.SIG Q8H EUGENIA Lactulose (Lactulose Liq) 30 ml PO DAILY PRN PRN Reason: SEVERE CONSITIPATION Pantoprazole Sodium (Protonix Inj) 40 mg IV.PUSH DAILY EUGENIA Senna/Docusate Sodium (Emmie-Colace) 1 tab PO BID EUGEINA Sennosides (Senokot) 17.2 mg PO Q12H PRN PRN Reason: Moderate Constipation Sodium Chloride (Ns Flush) 2 ml IV.FLUSH BID EUGENIA Sodium Chloride (Ns Flush) 2 ml IV.FLUSH PRN PRN PRN Reason: FLUSH AFTER USING IV ACCESS Terbutaline Sulfate (Brethine Inj) 1 mg SQ UNSCH PRN PRN Reason: For Extravasation Allergies Allergy/AdvReac Type Severity Reaction Status Date / Time epinephrine Allergy Severe TACHYCARDIA Verified 02/21/18 08:40 penicillin G Allergy Severe Hives Verified 02/21/18 08:40 peanut Allergy Intermediate ANAPHYLAXIS Verified 02/21/18 08:40 legumes Allergy Unknown Anaphylaxis Verified 03/06/18 21:48 soy Allergy Rash Verified 03/06/18 21:45 Home Medications Medication Instructions Recorded Confirmed Type cetirizine 10 mg PO HS 02/15/18 03/06/18 History escitalopram oxalate 20 mg FEEDING TUBE DAILY 02/15/18 03/06/18 History levothyroxine 100 mcg FEEDING TUBE DAILY 02/15/18 03/06/18 History omeprazole 20 mg PO DAILY 02/15/18 03/06/18 History ascorbic acid (vitamin C) 500 mg FEEDING TUBE BID 07/19/18 07/19/18 History multivitamin [Daily Multi-Vitamin] 1 tab FEEDING TUBE DAILY 03/06/18 03/06/18 History prednisone 20 mg FEEDING TUBE DAILY 03/06/18 03/06/18 History zinc 50 mg FEEDING TUBE DAILY 03/06/18 03/06/18 History Results - Labs CBC & Chem 7: 03/20/18 04:40 03/20/18 04:40 Labs: Short CBC 03/06/18 Range/Units 19:05 WBC 14.4 H (4.0-11.0) th/mm3 Hgb 8.3 L (11.6-15.3) gm/dL Hct 23.3 L (35.0-46.0) % Plt Count 283 (150-450) th/mm3 BMP 03/06/18 19:05 Sodium 135 L Potassium 4.9 Chloride 101 Carbon Dioxide 27.4 BUN 46 H Creatinine 1.00 Calcium 7.1 L* Cardiac Enzymes 03/06/18 Range/Units 19:05 Total Creatine Kinase 19 L (26-192) U/L Troponin I 0.06 H (0.02-0.05) ng/mL Liver Function 03/06/18 Range/Units 19:05 Total Bilirubin 0.6 (0.2-1.0) mg/dL AST 29 (15-37) U/L ALT 28 (10-53) U/L Alkaline Phosphatase 59 (45-117) U/L Albumin 1.6 L (3.4-5.0) g/dL Urine 03/06/18 Range/Units 18:00 Urine Color Yellow (Yellw/Straw) Urine Clarity Slightly cloudy (Clear) Urine pH 7.0 (5.0-8.5) Ur Specific [place] 1.010 (1.002-1.035) Urine Protein 30 H (Neg-Trace) mg/dL Urine Glucose (UA) Negative (Negative) mg/dL - Imaging Impressions Chest X-Ray 03/06/18 17:56 CONCLUSION: 1. ET tube in good position. 2. Interval development of nonconsolidative airspace opacities in the central lungs bilaterally suggesting pulmonary edema. 3. Stable left lower lobe consolidation. Exam Vital signs: Vital Signs 03/06/18 17:48 03/06/18 17:56 03/06/18 18:22 Temperature 98 F Pulse Rate 82 83 Respiratory Rate 20 Blood Pressure 98/42 L Pulse Oximetry 100 98 95 07/19/18 18:24 03/06/18 18:29 03/06/18 19:16 Temperature Pulse Rate Respiratory Rate 19 16 Blood Pressure 78/42 L 85/40 L Pulse Oximetry 97 03/06/18 19:26 03/06/18 19:55 03/06/18 20:45 Temperature Pulse Rate 74 62 Respiratory Rate 16 16 16 Blood Pressure 92/47 L 90/48 L Pulse Oximetry 100 100 100 03/06/18 20:48 03/06/18 20:50 03/06/18 20:55 Temperature 98.6 F Pulse Rate 63 62 Respiratory Rate 16 16 16 Blood Pressure 106/48 L 84/41 L Pulse Oximetry 03/06/18 21:25 03/06/18 22:40 03/06/18 23:00 Temperature Pulse Rate 64 62 Respiratory Rate 16 Blood Pressure 91/43 L 97/40 L 94/46 L Pulse Oximetry 03/06/18 23:15 03/06/18 23:35 03/06/18 23:45 Temperature Pulse Rate 58 L 58 L Respiratory Rate 20 20 16 Blood Pressure 100/58 L 103/43 L Pulse Oximetry 100 03/06/18 23:55 03/07/18 00:31 03/07/18 01:08 Temperature Pulse Rate 58 L 56 L Respiratory Rate 20 16 Blood Pressure 103/43 L 95/41 L 101/43 L Pulse Oximetry 100 100 03/07/18 01:30 03/07/18 02:00 03/07/18 02:30 Temperature Pulse Rate 68 Respiratory Rate 20 16 Blood Pressure 111/52 L 98/44 L 104/42 L Pulse Oximetry 100 03/07/18 03:00 03/07/18 03:50 03/07/18 04:21 Temperature Pulse Rate 72 Respiratory Rate 16 Blood Pressure 96/40 L 91/58 L Pulse Oximetry 86 L 03/07/18 04:24 03/07/18 04:29 03/07/18 04:32 Temperature 97.5 F L Pulse Rate 112 H 113 H Respiratory Rate 17 26 H 29 H Blood Pressure 96/52 L 95/51 L Pulse Oximetry 100 100 100 03/07/18 04:45 03/07/18 05:00 03/07/18 05:15 Temperature Pulse Rate 113 H 112 H 111 H Respiratory Rate 18 21 16 Blood Pressure 90/53 L 85/47 L 87/52 L Pulse Oximetry 100 100 100 03/07/18 05:30 Temperature Pulse Rate 62 Respiratory Rate 20 Blood Pressure 101/49 L Pulse Oximetry 100 Intake & Output 03/06/18 03/06/18 03/07/18 06:59 18:59 06:59 Intake Total 1300 / 1300 Output Total 300 / 300 Balance 1000 / 1000 Weight 77.289 kg 67 kg Intake: IV 1300 / 1300 Maxipime Inj 1,000 MG In NS Inj 100 / 100 100 ML @ 200 mls/hr IV.SIG ONCE ONE Rx#:[id number] NS Inj 1,000 ML @ Wide Open IV. 1000 / 1000 SIG BOLUS ONE Rx#:[id number] Output: Urine Amount (Catheter) 300 / 300 Indwelling Urethral Catheter 300 / 300 Other: Weight On Admission 67 kg Narrative: GENERAL: Under nourished female with temporal wasting who is orotracheally intubated. SKIN: Warm and dry. HEAD: Atraumatic. Normocephalic. EYES: Pupils equal and round. No scleral icterus. No injection or drainage. ENT: No nasal bleeding or discharge. Mucous membranes pink and moist. NECK: Trachea midline. No JVD. CARDIOVASCULAR: Regular rate and rhythm. No murmurs rubs or gallops. RESPIRATORY: Scattered bilateral rhonchi. No wheezes or rales. Orotracheally intubated. GASTROINTESTINAL: Abdomen soft, non-tender. GJ tube is in place which is currently to gravity. MUSCULOSKELETAL: Extremities without clubbing, cyanosis. 1+ edema bilateral upper extremities. NEUROLOGICAL: Awake and alert, nods in response to questions.. No obvious cranial nerve deficits. Moves all extremities spontaneously with no focal deficit. Septic Shock Reassessment Septic shock perfusion: reassessment completed Caprini VTE Risk Assessment Caprini VTE Risk Assessment: Moderate/High Risk (score >= 2) Caprini Risk Assessment Model: Point Value = 1 Point Value = 2 Point Value = 3 Point Value = 5 Age 41-60 Minor surgery BMI > 25 kg/m2 Swollen legs Varicose veins or History of unexplained or recurrent spontaneous Oral contraceptives or hormone replacement Sepsis (< 1 month) Serious lung disease, including pneumonia (< 1 month) Abnormal pulmonary function Acute myocardial infarction Congestive heart failure (< 1 month) History of inflammatory bowel disease Medical patient at bed rest Age 61-74 Arthroscopic surgery Major open surgery (> 45 min) Laparoscopic surgery (> 45 min) Malignancy Confined to bed (> 72 hours) Immobilizing plaster cast Central venous access Age >= 75 History of VTE Family history of VTE Factor V Leiden Prothrombin [id number] Lupus anticoagulant Anticardiolipin antibodies Elevated serum homocysteine Heparin-induced thrombocytopenia Other congenital or acquired thrombophilia Stroke (< 1 month) Elective arthroplasty Hip, pelvis, or leg fracture Acute spinal cord injury (< 1 month) Prophylaxis Regimen: Total Risk Factor Score Risk Level Prophylaxis Regimen 0-1 Low Early ambulation 2 Moderate Order ONE of the following: *Sequential Compression Device (SCD) *Heparin 5000 units SQ BID 3-4 Higher Order ONE of the following medications: *Heparin 5000 units SQ TID *Enoxaparin/Lovenox 40 mg SQ daily (WT < 150 kg, CrCl > 30 mL/min) *Enoxaparin/Lovenox 30 mg SQ daily (WT < 150 kg, CrCl > 10-29 mL/min) *Enoxaparin/Lovenox 30 mg SQ BID (WT < 150 kg, CrCl > 30 mL/min) AND/OR *Sequential Compression Device (SCD) 5 or more Highest Order ONE of the following medications: *Heparin 5000 units SQ TID (Preferred with Epidurals) *Enoxaparin/Lovenox 40 mg SQ daily (WT < 150 kg, CrCl > 30 mL/min) *Enoxaparin/Lovenox 30 mg SQ daily (WT < 150 kg, CrCl > 10-29 mL/min) *Enoxaparin/Lovenox 30 mg SQ BID (WT < 150 kg, CrCl > 30 mL/min) AND *Sequential Compression Device (SCD) Assessment and Plan - Problem List (1) Respiratory failure with hypoxia Code(s): J96.91 - Respiratory failure, unspecified with hypoxia Status: Deleted (2) History of laryngeal cancer Code(s): Z85.21 - Personal history of malignant neoplasm of larynx Status: Deleted (3) Dysphagia Code(s): R13.10 - Dysphagia, unspecified Status: Deleted (4) Protein-calorie malnutrition, severe Code(s): E43 - Unspecified severe protein-calorie malnutrition Status: Deleted - Assessment and Plan Plan: NEURO: Fentanyl drip for sedation. Discontinue Versed drip Fentanyl/Versed bolus as needed Target RASS -1 RESP: Acute respiratory failure 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 Noted initial CXR with pulm edema pattern, may be secondary to negative pressure pulm edema (exacerbated by low oncotic pressure) because f/u CXR post CVL placement shows R lower lobe consolidation typical of aspiration. PRVC, vent bundle. Son requests opportunity to discuss with ENT recommendations regarding trach. RUL spiculated lung mass on CT chest - unknown if seen on previous imaging. In any case, not candidate for workup at this time, needs followup. CV: Hypotension, secondary to sedation and SIRS Received 2 L NS bolus in ED. Now on Levophed to maintain MAP >65. 2D echo 02/23/18 ejection fraction 35%, anterior septal hypokinesis. Biatrial dilation. Serial troponins/EKG Lactic acid normal. GI: Severe Dysphagia Esophageal Stricture, radiation induced Rendon's esophagus GERD Severe chronic protein energy malnutrition G/J tube in place, Vital 1.5 65/hr per nutrition recs via jejunostomy. G tube to gravity. Pt known to Dr. Aly, with esophageal dilation in the past. Have been planning outpatient esophageal dilation. Will request GI ongoing input, would she benefit from earlier dilation to facilitate management secretions? FEN/RENAL: Monitor intake and output. Monitor electrolytes and replace as indicated per electrolyte replacement protocol ID: ? UTI Aspiration pneumonitis/pneumonia Leukocytosis Follow-up blood and urine cultures. Will cover with cefepime 2 g IV every 8 hours. HEME: Followed by Dr. Pineda for followup h/o laryngeal cancer. Prior radiation and chemo completed 03/2015. ENDO: Euglycemic PROPH: SCDs for DVT prophylaxis. Pantoprazole for stress ulcer prophylaxis and history of GERD. ACCESS: Right femoral central venous line placed in ED. She has previously been sensitive to sedatives and required vasopressors while on sedation therefore I suspect she will need a central line for a while. Placed L IJ CVL 03/07 #1. Remove femoral central line. Patient is critically ill with respiratory failure and hypotension. Required transfer for over night signal system testing maintainer evaluation. Discussed with patient's son Alireza is her POA. He states that he has worked as a PA for 20 years in the field of critical care. His expectation is that ENT and GI consultants speak with him regarding their recommendations for prevention future aspiration. Critical care time 60 minutes exclusive of separately billable procedures. H&P: Quality - VTE Deep Vein Thrombosis/Pulmonary Embolism Present on Admission: No
[2018-03-07] MEDS: Chlorhexidine Gluconate 2% 1 Pack (2 Cloths) TOPICAL SCH (05:51)
--- NOTE | 2018-03-07 06:16 | XR ---
EXAM DATE: 03/07/2018 6:09 AM EDT AGE/SEX: 73 years / Female INDICATIONS: Central line placement. CLINICAL DATA: This is the patient's initial encounter. Patient reports that signs and symptoms have been present for 1 day and indicates a pain score of Nonresponsive. MEDICAL/SURGICAL HISTORY: Non-responsive. Non-responsive. COMPARISON: [facility], CHEST 1V SINGLE AP, 03/06/2018. . FINDINGS: Mild bibasilar consolidation again noted but slightly improved in the interim. Small pleural effusion suspected on the left. No pneumothorax is demonstrated. Heart size stable, within normal limits. Endotracheal tube tip is approximately 4 cm above the lashay. There is a new left internal jugular ce ntral venous catheter with tip at the atriocaval junction. CONCLUSION: 1. Modestly improved bibasilar consolidation. 2. Small left pleural effusion not significantly changed. 3. New left IJ central venous catheter with tip at the atriocaval junction. No pneumothorax. Electronically signed by: Gee Babcock MD 03/07/2018 6:15 AM EDT
[2018-03-07] MEDS: Pantoprazole Inj 40 MG Vial IV.PUSH SCH (08:55)
[2018-03-07] MEDS: Senna/Docusate Sodium 8.6/50 MG Tablet PO SCH ×2 (08:55→21:04)
[2018-03-07] MEDS: Hypromellose 0.3% Opth Gel 10 GM Bottle EACH EYE SCH ×2 (08:56→18:04)
--- NOTE | 2018-03-07 10:33 | ECG ---
Date Performed: 03/06/2018 Time Performed: 18:11:42 PTAGE: 73 years EKG: Sinus rhythm NONSPECIFIC T-WAVE ABNORMALITY BORDERLINE ECG PREVIOUS TRACING : 02/22/2018 20.20 Since the previous tracing, no significant change noted DOCTOR: Karla Mejia Interpretating Date/Time 03/07/2018 10:33:38
[2018-03-07] MEDS: Oral Hygiene Kit OROPHARYNG SCH ×2 (12:24→17:12)
--- NOTE | 2018-03-07 13:54 | P.DIET ---
Nutritional Evaluation Type of nutrition evaluation: initial Nutrition consult regarding: Tube Feeding [place] [facility] [place] 03[place]07[place] [facility] [place] Objective - Diagnosis Respiratory Failure - Objective [place] body weight: 59 kg % IBW: 113 Body Weight Used for Calculations: Actual (Actual Body Wt 67kg(147-lb)) Energy Needs - Lower Range (kCal/kg): 25 Energy Needs - Upper Range (kCal/kg): 30 Lower Limit kCal/kg (kCals): 1,675 Upper Limit kCal/kg (kCals): 2,010 Lower Limit Protein Factor (Grams per Kg): 1.2 Upper Limit Protein Factor (Grams per Kg): 1.5 Lower Protein Needs (Protein): 80 Upper Protein Needs (Protein): 101 Dietitian Reviewed in Medical Record: Curent medications, Intake & Output, Labs , Medical history, Tube feeding Diet Order: TF'ing ONLY: Vital 1.5 @ goal rate 65ml/hr Objective Comments: PMH: Arthritis, Ralph's Esophagus, GERD, Hypothyroidism, Skin Cancer of forehead, Squamous cell carcinoma of larynx, Squamous cell carcinoma of supraglottis s/p laproscopic G-J tube placement 02/13/18 Accucheck 110 Feeding - Current Tube Feeding Tube Feeding Product: Vital 1.5 Assessment Assessment: Pt is at nutritional risk r/t need for TF'ing. To best meet pt's assessed needs for TF'ing w/ Vital 1.5, Rec goal rate @ 55ml/hr to offer 1980 kcal, 89.1g Protein and 1008ml free water. Labs reviewed. Additional Recs to follow r/t Clinical Course. Recommendations: 1.To best meet pt's assessed needs for TF'ing w/ Vital 1.5, Rec goal rate @ 55ml /hr 2. Additional Recs to follow r/t Clinical Course Dietitian to Monitor: Lab values, Glucose level, Intake & Output, Tube feeding tolerance, Weight change, Medical course
--- NOTE | 2018-03-07 15:17 | MB ---
cc: Vic Martin MD DATE: 03/07/2018 REASON FOR CONSULTATION: Respiratory failure and pneumonia. HISTORY OF PRESENT ILLNESS: This is a 73-year-old white female with a past history of supraglottic squamous cell cancer of the larynx diagnosed in 12/2014, who had received radiation and chemotherapy. The patient had completed chemotherapy in 03/2015 and has been recently admitted in January with severe anemia and failure to thrive. The patient also had dysphagia and had a G-tube, which apparently had been dislodged in the past and was taking a milkshake in spite of having difficulty in swallowing and developed progressive weight loss with cachexia. She was noted to be aspirating and thus received treatment for aspiration pneumonia and had been admitted for severe respiratory distress and had to be intubated for respiratory failure. Evaluation by ENT showed no evidence of recurrence of carcinoma but scarring was noted in the upper airway. The patient was weaned off the respirator on 02/25/2018 and was at the custodial on 03/03/2018 but was returned back to the emergency room at [facility] with recurrent aspiration and had to be intubated and now on ventilator support. She had to receive fluids for hypotension and now on antibiotic therapy including IV cefepime and ENT consult is pending. The patient, however, is awake. She responds well to commands. She is on ventilator support, presently FiO2 of 40% and assisting the ventilator well. The chest x-ray that was done following intubation showed bilateral hazy infiltrates, which are consistent with pneumonia and/or pulmonary edema. The white count is elevated. PAST MEDICAL AND SURGICAL HISTORY: Includes recurrent episodes of aspiration pneumonia, history of laryngeal cancer, status post radiation and chemotherapy, prior history of Rendon's esophagus and history of gastroesophageal reflux. Also, history of skin cancer of the forehead and previous tonsillectomy and hernia surgery, as well as a cholecystectomy. HABITS: The patient was a prior smoker for over 25 years. No significant alcohol use. FAMILY HISTORY: Significant for cancer of the breast in mother. REVIEW OF SYSTEMS: The patient is intubated on ventilator support, unable to respond appropriately. ALLERGIES: NO KNOWN DRUG ALLERGIES ARE LISTED. PHYSICAL EXAMINATION: GENERAL: This is a thinly built, elderly, white female who is intubated, pale, dyspneic, but responsive and cooperative. Moves all her extremities well. VITAL SIGNS: Blood pressure 110/60 and heart rate was 90, respirations 22, temperature 97.8. HEENT: Head is normocephalic. Pupils are reactive and equal. Tongue dry. Throat is injected. Few secretions in the throat. Ears no inflammation. NECK: Supple with no venous distention. Trachea midline. No thyroid enlargement. CHEST: Decreased excursions with diminished breath sounds at the periphery with few coarse wheezes throughout both lung [place]. HEART: The heart sounds are regular, S1 and S2. No murmur. ABDOMEN: Soft, scaphoid, without masses. No organomegaly or tenderness. Bowel sounds are active. EXTREMITIES: No clubbing. There is minimal edema. Peripheral pulses are not well felt. Reflexes are 1+. NEUROLOGIC: The patient responds and moves her extremities well with no gross motor deficits. SKIN: Cool and dry. IMPRESSION: 1. Acute hypoxemic respiratory failure. 2. Bilateral pneumonia with aspiration. 3. Malnutrition and dehydration. 4. History of laryngeal cancer status post radiation therapy with upper airway scarring. 5. Rendon's esophagus with gastroesophageal reflux. 6. Urinary tract infection. PLAN: The patient will be weaned to 30% FiO2, PEEP of 5. The CPAP gases will be obtained and the respiratory parameters checked. Repeat chest x-ray in a.m. and nebulized DuoNeb solution added q.i.d. and p.r.n. We will also get a followup chest x-ray in a.m. Attempts will be made to place her on T-bar or extubated and ENT consultation to evaluate her for possible tracheostomy. Thank you, Dr. Yates, for this consultation. MD MAURILIO Bustillos/ANETA , 02:30 PM , 03:16 PM
--- NOTE | 2018-03-07 17:22 | MB ---
cc: Javier Hernández MD, Donato R MD DATE: 03/07/2018 REASON FOR CONSULTATION: Evaluation of dysphagia. HISTORY OF PRESENT ILLNESS: This is a 72-year-old female with past history of a squamous cell carcinoma of the larynx diagnosed 12/2014, treated with radiation therapy and chemotherapy under the care of Dr. Pineda, the oncologist. Apparently followup imaging studies were unremarkable for any recurrent disease. She was admitted to [facility] in January. She had anemia at that time, hemoglobin 6.3. She had ongoing dysphagia and unable to swallow and had malnutrition and weight loss. Ultimately, she has had a G-J tube. This apparently came out in May inadvertently and then was replaced once again. She has been receiving jejunal feedings. Her swallow studies have confirmed that she does have aspiration ongoing. She was admitted at this time with respiratory distress. In speaking to the staff, this was probably due to plugging of the mucus secretions. She has been followed by ENT as well. She does have a history of a radiation-induced stricture and she had dilation performed endoscopically by Dr. Aly in June last year, up to 11 or 12 mm. She had a tight stricture in the cricopharyngeal area and also an ulcer at EG junction stricture was noted at that time. At this point, there is discussion about perhaps proceeding with a tracheotomy. Her son is coming in to discuss this matter with her. Her son is a physician patient observation assistant apparently in critical care. Once again, the patient has had episodes of recurrent respiratory failure, probably related to her aspiration pneumonitis. ALLERGIES: EPINEPHRINE, PENICILLIN, PEANUTS and soy MEDICATIONS: 1. Acetaminophen. 2. Albuterol. 3. Bisacodyl. 4. Cefepime, 5. Fentanyl 6. Lactulose. 7. Methylprednisolone. 8. Midazolam. 9. Norepinephrine. 10. Pantoprazole. FAMILY HISTORY: Negative at this time. SOCIAL HISTORY: There is no history of alcohol use or illicit drug use. PAST SURGICAL HISTORY: Pertinent for appendectomy, hernia repair. In addition to her history, she does have arthritis and of course history of laryngeal cancer. REVIEW OF SYSTEMS: On 12-point review of systems, the patient is unable to respond. She is on a ventilator and is, as mentioned, in part in the HPI. PHYSICAL EXAMINATION: GENERAL: Alert, responsive, no acute distress. The patient is intubated. Moving extremities. VITAL SIGNS: Currently stable. She is afebrile. SKIN: Warm and dry. No unusual rashes. HEENT: Normocephalic. Pupils are equal and reactive, anicteric. Secretions noted in the throat and mouth. NECK: Supple, midline trachea. No masses. CHEST: Diminished breath sounds at the bases. Occasional wheezes. CARDIAC: S1, S2, regular rhythm. ABDOMEN: Soft, nontender. Surgical scar Is well healed. Bowel sounds are present. G-tube is in place and intact. EXTREMITIES: Without clubbing, cyanosis or edema. NEUROLOGIC: The patient responds, moves her extremities, appears to be without focal defects. IMPRESSION: 1. Recurrent respiratory insufficiency, respiratory failure due to hypoxemia. 2. Bilateral pneumonia, aspiration. 3. Malnutrition. 4. History of laryngeal cancer post-radiation therapy without obvious recurrence. 5. History of Rendon's esophagus, GERD. 6. History of dysphagia. 7. History of esophageal stricture. PLAN: At this time, I would continue her jejunal feedings for nutritional purposes. Continue respiratory supportive therapy. The patient is followed by pulmonary as well. A tracheostomy is also being considered at this time. We could consider endoscopic evaluation and/or dilatation or strictures at some point later on. This appears to be non-urgent at this time. We will need to discuss this with the family at some point as well, her son specifically. Dilation of the strictures may not prevent the patient from having aspiration pneumonitis, however. There was high probability that the patient has a radiation-induced stricture proximally. These can be difficult to dilate at times with certain risks involved as well. This will need to be discussed with the family at some point. We would continue acid suppressive therapy. We will be glad to follow the patient with you. Thank you for this consult. MD ARNALDO Buchanan/ , 04:52 PM , 05:21 PM
[2018-03-07 17:42] LABS: ABG Base Excess -0.3 mmol/L (-2-2); ABG PCO2 44 mmHg (38-42); ABG PO2 134 mmHG (61-120)
--- NOTE | 2018-03-07 19:13 | ECG ---
Date Performed: 03/07/2018 Time Performed: 01:15:39 PTAGE: 73 years EKG: SINUS BRADYCARDIA NONSPECIFIC T-WAVE ABNORMALITY BORDERLINE ECG Since PREVIOUS TRACING , no significant change noted PREVIOUS TRACIN03/06/2018 18.11 DOCTOR: Karla Mejia Interpretating Date/Time 03/07/2018 19:12:08
[2018-03-07] MEDS: MethylPREDNISolone Sod Succinate Inj 40 MG/ML Vial IV.PUSH SCH (21:04)
[2018-03-07] MEDS: Chlorhexidine 0.12% Oral Kit 15 ML UDC OROPHARYNG SCH (21:04)
[2018-03-08] MEDS: Hypromellose 0.3% Opth Gel 10 GM Bottle EACH EYE SCH ×3 (00:10→19:14)
[2018-03-08] MEDS: Oral Hygiene Kit OROPHARYNG SCH ×4 (00:10→19:14)
[2018-03-08] MEDS: fentaNYL Citrate Inj 100 MCG/2 ML Ampul IV.PUSH PRN (01:32)
[2018-03-08] MEDS: Chlorhexidine Gluconate 2% 1 Pack (2 Cloths) TOPICAL SCH (04:42)
[2018-03-08] MEDS: MethylPREDNISolone Sod Succinate Inj 40 MG/ML Vial IV.PUSH SCH ×3 (05:41→21:27)
[2018-03-08 05:48] LABS: Hematocrit 21.6 % (35.0-46.0); Hemoglobin 7.1 gm/dL (11.6-15.3); Mean Corpuscular HGB Conc 32.6 % (32.0-36.0); Mean Corpuscular Hemoglobin 30.2 pg (27.0-34.0); Mean Corpuscular Volume 92.5 fL (80.0-100.0); Mean Platelet Volume 10.6 fL (7.0-11.0); Platelet Count 303 th/mm3 (150-450); Red Blood Count 2.34 mil/mm3 (4.00-5.30); Red Cell Distribution Width 18.3 % (11.6-17.2); White Blood Count 15.9 th/mm3 (4.0-11.0)
[2018-03-08 06:15] LABS: Albumin 1.7 g/dL (3.4-5.0); Anion Gap 12 meq/L (5-15); Aspartate Aminotransferase 23 U/L (15-37); Blood Urea Nitrogen 40 mg/dL (7-18); Calcium 8.1 mg/dL (8.5-10.1); Carbon Dioxide 21.8 meq/L (21.0-32.0); Chloride 103 meq/L (98-107); Glomerular Filtration Rate 42 mL/min (>89); Glucose,Random 162 mg/dL (74-106); Magnesium 1.8 mg/dL (1.5-2.5); Potassium 4.5 meq/L (3.5-5.1); Sodium 137 meq/L (136-145)
[2018-03-08 06:16] LABS: Alanine Aminotransferase 27 U/L (10-53); Phosphorus 3.5 mg/dL (2.5-4.9)
[2018-03-08 06:18] LABS: Alkaline Phosphatase 63 U/L (45-117); Total Protein 5.1 g/dL (6.4-8.2)
--- NOTE | 2018-03-08 06:45 | XR ---
EXAM DATE: 03/08/2018 6:26 AM EDT AGE/SEX: 73 years / Female INDICATIONS: Respiratory failure. CLINICAL DATA: This is the patient's subsequent encounter. Patient reports that signs and symptoms h ave been present for 2 weeks and indicates a pain score of Nonresponsive. MEDICAL/SURGICAL HISTORY: . Chronic obstructive pulmonary disease. Hypothyroidism. Gastroesopha geal reflux disease. Throat cancer. . Cholecystectomy. Appendectomy. Hernia repair. COMPARISON: [facility] [place], CHEST 1V SINGLE AP, 03/07/2018. . FINDINGS: Single AP view of the chest. Endotracheal tube and left IJ central venous catheter remain in place. M ild patchy bilateral lung base opacity is decreased when compared to the prior study. Cardiomediastin al silhouette within normal limits. Small left pleural effusion unchanged. No evidence of pneumothora x. CONCLUSION: Decreased mild bilateral pulmonary parenchymal opacity and small left pleural effusion. Electronically signed by: Jarad Orr MD 03/08/2018 6:44 AM EDT
[2018-03-08 08:44] LABS: Lymphocytes 1 % (9-44); Metamyelocytes 5 % (0-1); Monocytes 4 % (0-8); Myelocytes 1 % (0-0); Ovalocytes 1+; Platelet Estimate Normal (Normal); Toxic Vacuolation Present
[2018-03-08] MEDS: Pantoprazole Inj 40 MG Vial IV.PUSH SCH (09:12)
[2018-03-08] MEDS: Chlorhexidine 0.12% Oral Kit 15 ML UDC OROPHARYNG SCH ×2 (09:12→21:27)
[2018-03-08] MEDS: Senna/Docusate Sodium 8.6/50 MG Tablet PO SCH ×2 (09:12→21:28)
--- NOTE | 2018-03-08 11:28 | MB ---
cc: Tyler Kunz MD, V J MD DATE: 03/07/2018 REQUESTING PHYSICIAN: Dr. Martin REASON FOR ENT CONSULTATION: Candidate for tracheotomy. HISTORY OF PRESENT ILLNESS: Ana M Henson is a 73-year-old woman whom I initially had met in December 2014 when she first presented with complaints of throat pain and dysphagia. 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 This was ultimately staged to be a T4 N1 M0. She began combined chemotherapy and radiation therapy in February of 2015 and finished 04/18/2015 after 35 treatments and weekly doses of cisplatin. She had a difficult time with the treatment and also with recovery. Greatest challenge was dysphagia and she became gastrostomy tube dependent early on in her recovery. Her last visit with me was on 04/09/2016, at which time she was undergoing swallowing therapy and hoping for an esophageal dilation to improve her swallowing. She has never had a recurrence of her cancer, however. She was admitted to [facility] on 02/11/2018 in respiratory failure and required several days of intubation for pulmonary rehabilitation. She was extubated on 02/25/2018 and [facility] to a [facility] on 03/03/2018; however, within a few days, she was once again in florid respiratory failure, was intubated by the emergency medical service and brought to [facility] where she was resuscitated. Records note that there were copious secretions in her airway following intubation. On the morning of 03/07/2018, I was consulted by her admitting staff regarding her candidacy for tracheotomy. They have been in discussion with her son, who is an intensive care physicians timber management assistant and wanted to discuss the next step in her treatment. I contacted her son by phone on the evening of 03/07/2018 to discuss her care. I advised him I had initially diagnosed her cancer, but had not had contact with her nearly 2 years. He voiced his dismay that she may have been discharged too soon following her 02/11/2018-03/03/2018 admission, only to return in florid failure a few days later after collapsing apparently in a parking lot. I advised her that I am in full agreement with the plan for tracheotomy after having been found down apparently in a parking lot. I advised him I am in full agreement with the plans for tracheotomy as she clearly has an incompetent larynx and could not prevent aspiration of secretions into her airway. I further advised him this would be performed by the staff of the [facility] and not by me or a member of my ENT practice. He asked to be kept advised of plans and to be informed before the procedure should take place. MD PETER Hernandez/ANETA , 10:58 AM , 11:27 AM
--- NOTE | 2018-03-08 12:11 | P.PNGI ---
Subjective Interval history: Pt still intubated but is alert. Physical Exam Vital signs: Vital Signs 03/07/18 13:00 03/07/18 14:00 03/07/18 15:00 Temperature Pulse Rate 58 L 53 L 56 L Respiratory Rate 36 H 26 H 24 Blood Pressure 90/44 L 99/48 L 101/46 L Pulse Oximetry 99 99 100 03/07/18 16:00 03/07/18 16:15 03/07/18 16:30 Temperature 98.3 F Pulse Rate 53 L 57 L Respiratory Rate 37 H 32 H Blood Pressure 97/46 L 97/46 L 102/49 L Pulse Oximetry 100 100 03/07/18 16:43 03/07/18 16:45 03/07/18 17:00 Temperature Pulse Rate 57 L 57 L 53 L Respiratory Rate 14 28 H 36 H Blood Pressure 100/49 L 94/44 L Pulse Oximetry 100 100 100 03/07/18 17:15 03/07/18 17:30 03/07/18 17:45 Temperature Pulse Rate 57 L 55 L 53 L Respiratory Rate 32 H 35 H 24 Blood Pressure 94/46 L 94/45 L 97/46 L Pulse Oximetry 100 100 100 03/07/18 18:00 03/07/18 18:15 03/07/18 18:30 Temperature Pulse Rate 52 L 51 L 51 L Respiratory Rate 27 H 29 H 34 H Blood Pressure 98/44 L 94/44 L 95/45 L Pulse Oximetry 100 100 100 03/07/18 18:45 03/07/18 19:00 03/07/18 19:15 Temperature Pulse Rate 53 L 51 L 58 L Respiratory Rate 27 H 31 H 31 H Blood Pressure 98/45 L 93/44 L 75/37 L Pulse Oximetry 100 100 100 03/07/18 19:16 03/07/18 19:30 03/07/18 19:45 Temperature Pulse Rate 59 L 50 L 50 L Respiratory Rate 24 32 H 24 Blood Pressure 74/36 L 108/51 L 102/47 L Pulse Oximetry 100 100 100 03/07/18 20:00 03/07/18 20:01 03/07/18 20:10 Temperature 98.8 F Pulse Rate 50 L 50 L 57 L Respiratory Rate 25 H 35 H 13 Blood Pressure 101/49 L 101/49 L Pulse Oximetry 100 100 100 03/07/18 20:15 03/07/18 20:30 03/07/18 20:45 Temperature Pulse Rate 60 53 L 52 L Respiratory Rate 38 H 32 H 25 H Blood Pressure 105/50 L 98/46 L 100/46 L Pulse Oximetry 100 100 100 03/07/18 21:00 03/07/18 21:12 03/07/18 21:15 Temperature Pulse Rate 55 L 54 L Respiratory Rate 28 H 26 H 32 H Blood Pressure 102/49 L 95/45 L Pulse Oximetry 100 100 100 03/07/18 21:30 03/07/18 21:45 03/07/18 22:00 Temperature Pulse Rate 54 L 51 L 53 L Respiratory Rate 29 H 26 H 28 H Blood Pressure 99/47 L 100/47 L 96/55 L Pulse Oximetry 100 100 100 03/07/18 22:15 03/07/18 22:30 03/07/18 22:45 Temperature Pulse Rate 53 L 52 L 52 L Respiratory Rate 22 33 H 30 H Blood Pressure 105/48 L 110/51 L 114/51 L Pulse Oximetry 100 100 100 03/07/18 23:00 03/07/18 23:15 03/07/18 23:24 Temperature Pulse Rate 52 L 53 L 52 L Respiratory Rate 25 H 31 H 15 Blood Pressure 103/49 L 108/49 L Pulse Oximetry 100 100 100 03/07/18 23:30 03/07/18 23:46 03/08/18 00:00 Temperature 98.9 F Pulse Rate 53 L 53 L 53 L Respiratory Rate 31 H 30 H 30 H Blood Pressure 109/51 L 111/53 L 117/51 L Pulse Oximetry 100 100 100 03/08/18 00:15 03/08/18 00:30 03/08/18 00:45 Temperature Pulse Rate 64 114 H 112 H Respiratory Rate 41 H 34 H 25 H Blood Pressure 104/50 L 94/51 L 94/48 L Pulse Oximetry 100 100 100 03/08/18 01:00 03/08/18 01:15 03/08/18 01:30 Temperature Pulse Rate 115 H 116 H 119 H Respiratory Rate 24 30 H 34 H Blood Pressure 94/54 L 98/55 L 107/56 L Pulse Oximetry 100 100 100 03/08/18 01:45 03/08/18 02:00 03/08/18 02:15 Temperature Pulse Rate 116 H 114 H 117 H Respiratory Rate 30 H 34 H 43 H Blood Pressure 91/49 L 96/52 L 93/54 L Pulse Oximetry 100 100 100 03/08/18 02:21 03/08/18 02:30 03/08/18 02:45 Temperature Pulse Rate 113 H 113 H 113 H Respiratory Rate 32 H 29 H 28 H Blood Pressure 105/52 L 95/53 L 96/50 L Pulse Oximetry 100 100 100 03/08/18 03:00 03/08/18 03:01 03/08/18 03:15 Temperature Pulse Rate 69 68 65 Respiratory Rate 28 H 24 26 H Blood Pressure 113/53 L 116/53 L Pulse Oximetry 100 100 100 03/08/18 03:30 03/08/18 03:44 03/08/18 03:45 Temperature Pulse Rate 63 64 62 Respiratory Rate 26 H 27 H 27 H Blood Pressure 107/54 L 118/58 L Pulse Oximetry 100 100 03/08/18 04:00 03/08/18 04:15 03/08/18 04:27 Temperature 98.7 F Pulse Rate 65 67 Respiratory Rate 27 H 29 H 20 Blood Pressure 117/52 L 104/50 L Pulse Oximetry 100 100 100 03/08/18 04:30 03/08/18 04:45 03/08/18 05:00 Temperature Pulse Rate 62 64 59 L Respiratory Rate 27 H 25 H 24 Blood Pressure 110/56 L 114/53 L 117/57 L Pulse Oximetry 100 100 100 03/08/18 05:15 03/08/18 05:30 03/08/18 05:45 Temperature Pulse Rate 61 61 61 Respiratory Rate 26 H 22 24 Blood Pressure 114/55 L 112/56 L 111/54 L Pulse Oximetry 100 100 100 03/08/18 06:00 03/08/18 06:16 03/08/18 06:30 Temperature Pulse Rate 75 64 61 Respiratory Rate 45 H 24 25 H Blood Pressure 116/56 L 106/50 L 110/51 L Pulse Oximetry 97 100 100 03/08/18 08:00 03/08/18 08:15 03/08/18 08:16 Temperature 98 F Pulse Rate 59 L 59 L Respiratory Rate 24 27 H 18 Blood Pressure 109/51 L Pulse Oximetry 100 100 03/08/18 10:00 Temperature Pulse Rate 53 L Respiratory Rate Blood Pressure Pulse Oximetry Intake & Output 03/07/18 03/08/18 03/08/18 18:59 06:59 18:59 Intake Total 594 / 594 2436 / 2436 Output Total 1000 / 1000 1250 / 1250 Balance -406 / -406 1186 / 1186 Weight 66.3 kg Intake: IV 350 / 350 2100 / 2100 Maxipime Inj 2,000 MG In NS Inj 100 / 100 100 / 100 100 ML @ 200 mls/hr IV.SIG Q12H ANN Rx#:[id number] Levophed-Dextrose 4 mg/250 ml 250 / 250 500 / 500 Drip 4 mg In 250 ml @ 2 MCG/MIN 7.5 mls/hr IV.SIG TITRATE PRN Rx#:[id number] Tube Feeding 124 / 124 216 / 216 Water Bolus Amount 120 / 120 120 / 120 Output: Urine Amount (Catheter) 700 / 700 650 / 650 Indwelling Urethral Catheter 700 / 700 650 / 650 Gastric Drainage 300 / 300 600 / 600 Pre-Hospital Gastrojejunostomy 300 / 300 600 / 600 Tube Other: # Bowel Movements 0 0 - Detailed Abdominal Exam Comments: abd soft and nontender with G tube LUQ - Urinary Catheter Management Indwelling Urethral Catheter Cath placed during this visit: yes Reason for continuing: Acute urinary retention Insertion date: 03/06/18 Insertion time: 18:00 Results - Labs CBC & Chem 7: 03/08/18 04:50 03/08/18 04:50 Laboratory Results - last 24 hr 03/07/18 03/07/18 03/07/18 06:40 17:38 20:52 WBC RBC Hgb Hct MCV MCH MCHC RDW Plt Count MPV Prelim Diff (Auto) WBC Differential Seg Neuts % (Manual) Band Neuts % (Manual) Lymphocytes % (Manual) Monocytes % (Manual) Metamyelocytes % (Man) Myelocytes % (Man) Abs Neuts (Manual) Differential Comment Toxic Vacuolation Platelet Estimate Platelet Morphology Ovalocytes Puncture Site Left radial Patient Temperature 98.6 O2 Saturation 97 ABG pH 7.37 L ABG pCO2 44 H ABG pO2 134 H ABG HCO3 24 ABG O2 Content 10.2 L ABG Base Excess -0.3 ABG Methemoglobin 1.5 Terrell Test Y Hemoglobin 7.3 L Carboxyhemoglobin 0.7 O2 Delivery Device Ventilator Vent Setting Cpap5/ps8 Inspired O2 35 Critical Value No Sodium Potassium Chloride Carbon Dioxide Anion Gap BUN Creatinine Estimated GFR POC Glucose 124 H Random Glucose Calcium Phosphorus Magnesium Total Bilirubin AST ALT Alkaline Phosphatase Total Protein Albumin Procalcitonin 1.75 H 03/08/18 03/08/18 04:50 04:50 WBC 15.9 H RBC 2.34 L Hgb 7.1 L Hct 21.6 L MCV 92.5 MCH 30.2 MCHC 32.6 RDW 18.3 H Plt Count 303 MPV 10.6 Prelim Diff (Auto) Manual diff required WBC Differential Manual diff final Seg Neuts % (Manual) 75 H Band Neuts % (Manual) 14 H Lymphocytes % (Manual) 1 L Monocytes % (Manual) 4 Metamyelocytes % (Man) 5 H Myelocytes % (Man) 1 H Abs Neuts (Manual) 15.1 H Differential Comment . Toxic Vacuolation Present H Platelet Estimate Normal Platelet Morphology Enlarged H Ovalocytes 1+ H Puncture Site Patient Temperature O2 Saturation ABG pH ABG pCO2 ABG pO2 ABG HCO3 ABG O2 Content ABG Base Excess ABG Methemoglobin Terrell Test Hemoglobin Carboxyhemoglobin O2 Delivery Device Vent Setting Inspired O2 Critical Value Sodium 137 Potassium 4.5 Chloride 103 Carbon Dioxide 21.8 Anion Gap 12 BUN 40 H Creatinine 1.26 H Estimated GFR 42 L POC Glucose Random Glucose 162 H Calcium 8.1 L D Phosphorus 3.5 Magnesium 1.8 Total Bilirubin 0.5 AST 23 ALT 27 Alkaline Phosphatase 63 Total Protein 5.1 L Albumin 1.7 L Procalcitonin Microbiology 03/06/18 19:05 Blood - Peripheral Aerobic Blood Culture - Preliminary No growth in 2 days 03/06/18 19:05 Blood - Peripheral Anaerobic Blood Culture - Preliminary No growth in 2 days 03/06/18 18:45 Blood - Peripheral Aerobic Blood Culture - Preliminary Staphylococcus coag negative 03/06/18 18:45 Blood - Peripheral Anaerobic Blood Culture - Preliminary No growth in 2 days 03/08/18 05:10 Sputum - Endotracheal Gram Stain - Final 03/06/18 18:00 Catheterized Urine Urine Culture - Preliminary No growth in 24 hours - Imaging Impressions Chest X-Ray 03/08/18 00:00 CONCLUSION: Decreased mild bilateral pulmonary parenchymal opacity and small left pleural effusion. Assessment and Plan - Plan Discussed with Dr Yates. Plan is for trach early next week then plan on repeat esophageal dilation. Dr Hernández will f/u saturday.
--- NOTE | 2018-03-08 12:59 | P.PNCC ---
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 Hooper and Dr. Pineda (completed March 2015) with followup imaging negative for residual disease (05/2015, 09/2015). She was recently admitted to [facility] hospitalist service on after she presented with anemia with hemoglobin of 6.3, dysphagia and failure to thrive. She previously had G/J tube that became dislodged in May and she had been drinking nutritional shakes at home but had progressive difficulty with swallowing and developed cachexia. Modified barium swallow confirmed aspiration and she underwent laparoscopic GJ placement [address] Kraus. She had been n.p.o. and receiving continuous jejunal tube feeds when she developed severe respiratory distress and hypoxia requiring intubation 02/22/18. She had obvious evidence of aspiration on intubation. CT neck showed no e/o laryngeal mass. She was evaluated by ENT and underwent laryngoscopy that showed no evidence of disease recurrence and findings were consistent with radiation induced scarring. She was extubated 02/25. She was ultimately discharged to alf 03/03/18. [place] [facility] [place] with [place] failure. Reportedly sats were in the 50s upon their arrival. She was intubated at the scene. Reportedly a large amount of secretions suctioned out post intubation. White blood cell count was 14. She was hypotensive at [place] where she was administered 2 L normal saline bolus. ED physician then placed right femoral central line after unsuccessful placement right IJ central line. Levophed drip was started. Her son states he is a physician's campaign assistant in the field of critical care and expresses frustration with recurrent respiratory failure. States she had jejunal tube feeds running at goal but had not taken anything p.o. Requests ENT reconsultation for recommendations for tracheostomy. Subjective: 03/08: Afebrile. Resting in bed comfortably in no acute distress. Nods head appropriately to questions. Moves all 4 extremities spontaneously. Tube feeds currently at 40 cc an hour. Remains on norepinephrine 8 mg/min. Discussed with Alireza Whitten/healthcare proxy and son. Requesting tracheostomy. He will be here this afternoon discussed with mother and will consult once verified consent. Objective Vital Signs / I&O: Vital Signs 03/07/18 13:00 03/07/18 14:00 03/07/18 15:00 Temperature Pulse Rate 58 L 53 L 56 L Respiratory Rate 36 H 26 H 24 Blood Pressure 90/44 L 99/48 L 101/46 L Pulse Oximetry 99 99 100 03/07/18 16:00 03/07/18 16:15 03/07/18 16:30 Temperature 98.3 F Pulse Rate 53 L 57 L Respiratory Rate 37 H 32 H Blood Pressure 97/46 L 97/46 L 102/49 L Pulse Oximetry 100 100 03/07/18 16:43 03/07/18 16:45 03/07/18 17:00 Temperature Pulse Rate 57 L 57 L 53 L Respiratory Rate 14 28 H 36 H Blood Pressure 100/49 L 94/44 L Pulse Oximetry 100 100 100 03/07/18 17:15 03/07/18 17:30 03/07/18 17:45 Temperature Pulse Rate 57 L 55 L 53 L Respiratory Rate 32 H 35 H 24 Blood Pressure 94/46 L 94/45 L 97/46 L Pulse Oximetry 100 100 100 03/07/18 18:00 03/07/18 18:15 03/07/18 18:30 Temperature Pulse Rate 52 L 51 L 51 L Respiratory Rate 27 H 29 H 34 H Blood Pressure 98/44 L 94/44 L 95/45 L Pulse Oximetry 100 100 100 03/07/18 18:45 03/07/18 19:00 03/07/18 19:15 Temperature Pulse Rate 53 L 51 L 58 L Respiratory Rate 27 H 31 H 31 H Blood Pressure 98/45 L 93/44 L 75/37 L Pulse Oximetry 100 100 100 03/07/18 19:16 03/07/18 19:30 03/07/18 19:45 Temperature Pulse Rate 59 L 50 L 50 L Respiratory Rate 24 32 H 24 Blood Pressure 74/36 L 108/51 L 102/47 L Pulse Oximetry 100 100 100 03/07/18 20:00 03/07/18 20:01 03/07/18 20:10 Temperature 98.8 F Pulse Rate 50 L 50 L 57 L Respiratory Rate 25 H 35 H 13 Blood Pressure 101/49 L 101/49 L Pulse Oximetry 100 100 100 03/07/18 20:15 03/07/18 20:30 03/07/18 20:45 Temperature Pulse Rate 60 53 L 52 L Respiratory Rate 38 H 32 H 25 H Blood Pressure 105/50 L 98/46 L 100/46 L Pulse Oximetry 100 100 100 03/07/18 21:00 03/07/18 21:12 03/07/18 21:15 Temperature Pulse Rate 55 L 54 L Respiratory Rate 28 H 26 H 32 H Blood Pressure 102/49 L 95/45 L Pulse Oximetry 100 100 100 03/07/18 21:30 03/07/18 21:45 03/07/18 22:00 Temperature Pulse Rate 54 L 51 L 53 L Respiratory Rate 29 H 26 H 28 H Blood Pressure 99/47 L 100/47 L 96/55 L Pulse Oximetry 100 100 100 03/07/18 22:15 03/07/18 22:30 03/07/18 22:45 Temperature Pulse Rate 53 L 52 L 52 L Respiratory Rate 22 33 H 30 H Blood Pressure 105/48 L 110/51 L 114/51 L Pulse Oximetry 100 100 100 03/07/18 23:00 03/07/18 23:15 03/07/18 23:24 Temperature Pulse Rate 52 L 53 L 52 L Respiratory Rate 25 H 31 H 15 Blood Pressure 103/49 L 108/49 L Pulse Oximetry 100 100 100 03/07/18 23:30 03/07/18 23:46 03/08/18 00:00 Temperature 98.9 F Pulse Rate 53 L 53 L 53 L Respiratory Rate 31 H 30 H 30 H Blood Pressure 109/51 L 111/53 L 117/51 L Pulse Oximetry 100 100 100 03/08/18 00:15 03/08/18 00:30 03/08/18 00:45 Temperature Pulse Rate 64 114 H 112 H Respiratory Rate 41 H 34 H 25 H Blood Pressure 104/50 L 94/51 L 94/48 L Pulse Oximetry 100 100 100 03/08/18 01:00 03/08/18 01:15 03/08/18 01:30 Temperature Pulse Rate 115 H 116 H 119 H Respiratory Rate 24 30 H 34 H Blood Pressure 94/54 L 98/55 L 107/56 L Pulse Oximetry 100 100 100 03/08/18 01:45 03/08/18 02:00 03/08/18 02:15 Temperature Pulse Rate 116 H 114 H 117 H Respiratory Rate 30 H 34 H 43 H Blood Pressure 91/49 L 96/52 L 93/54 L Pulse Oximetry 100 100 100 03/08/18 02:21 03/08/18 02:30 03/08/18 02:45 Temperature Pulse Rate 113 H 113 H 113 H Respiratory Rate 32 H 29 H 28 H Blood Pressure 105/52 L 95/53 L 96/50 L Pulse Oximetry 100 100 100 03/08/18 03:00 03/08/18 03:01 03/08/18 03:15 Temperature Pulse Rate 69 68 65 Respiratory Rate 28 H 24 26 H Blood Pressure 113/53 L 116/53 L Pulse Oximetry 100 100 100 03/08/18 03:30 03/08/18 03:44 03/08/18 03:45 Temperature Pulse Rate 63 64 62 Respiratory Rate 26 H 27 H 27 H Blood Pressure 107/54 L 118/58 L Pulse Oximetry 100 100 03/08/18 04:00 03/08/18 04:15 03/08/18 04:27 Temperature 98.7 F Pulse Rate 65 67 Respiratory Rate 27 H 29 H 20 Blood Pressure 117/52 L 104/50 L Pulse Oximetry 100 100 100 03/08/18 04:30 03/08/18 04:45 03/08/18 05:00 Temperature Pulse Rate 62 64 59 L Respiratory Rate 27 H 25 H 24 Blood Pressure 110/56 L 114/53 L 117/57 L Pulse Oximetry 100 100 100 03/08/18 05:15 03/08/18 05:30 03/08/18 05:45 Temperature Pulse Rate 61 61 61 Respiratory Rate 26 H 22 24 Blood Pressure 114/55 L 112/56 L 111/54 L Pulse Oximetry 100 100 100 03/08/18 06:00 03/08/18 06:16 03/08/18 06:30 Temperature Pulse Rate 75 64 61 Respiratory Rate 45 H 24 25 H Blood Pressure 116/56 L 106/50 L 110/51 L Pulse Oximetry 97 100 100 03/08/18 08:00 03/08/18 08:15 03/08/18 08:16 Temperature 98 F Pulse Rate 59 L 59 L Respiratory Rate 24 27 H 18 Blood Pressure 109/51 L Pulse Oximetry 100 100 03/08/18 10:00 03/08/18 11:00 Temperature Pulse Rate 53 L 55 L Respiratory Rate 22 Blood Pressure Pulse Oximetry Intake & Output 03/07/18 03/08/1818 18:59 06:59 18:59 Intake Total 594 / 594 2436 / 2436 Output Total 1000 / 1000 1250 / 1250 Balance -406 / -406 1186 / 1186 Weight 66.3 kg Intake: IV 350 / 350 2100 / 2100 Maxipime Inj 2,000 MG In NS Inj 100 / 100 100 / 100 100 ML @ 200 mls/hr IV.SIG Q12H ANN Rx#:[id number] Levophed-Dextrose 4 mg/250 ml 250 / 250 500 / 500 Drip 4 mg In 250 ml @ 2 MCG/MIN 7.5 mls/hr IV.SIG TITRATE PRN Rx#:[id number] Tube Feeding 124 / 124 216 / 216 Water Bolus Amount 120 / 120 120 / 120 Output: Urine Amount (Catheter) 700 / 700 650 / 650 Indwelling Urethral Catheter 700 / 700 650 / 650 Gastric Drainage 300 / 300 600 / 600 Pre-Hospital Gastrojejunostomy 300 / 300 600 / 600 Tube Other: # Bowel Movements 0 0 Result Diagrams: 03/08/18 04:50 03/08/18 04:50 Other Results: Microbiology 03/06/18 19:05 Blood - Peripheral Aerobic Blood Culture - Preliminary No growth in 2 days 03/06/18 19:05 Blood - Peripheral Anaerobic Blood Culture - Preliminary No growth in 2 days 03/06/18 18:45 Blood - Peripheral Aerobic Blood Culture - Preliminary Staphylococcus coag negative 03/06/18 18:45 Blood - Peripheral Anaerobic Blood Culture - Preliminary No growth in 2 days 03/08/18 05:10 Sputum - Endotracheal Gram Stain - Final 03/06/18 18:00 Catheterized Urine Urine Culture - Preliminary No growth in 24 hours Imaging: Chest X-Ray 03/06/18 17:56 CONCLUSION: 1. ET tube in good position. 2. Interval development of nonconsolidative airspace opacities in the central lungs bilaterally suggesting pulmonary edema. 3. Stable left lower lobe consolidation. Chest X-Ray 03/07/18 05:35 CONCLUSION: 1. Modestly improved bibasilar consolidation. 2. Small left pleural effusion not significantly changed. 3. New left IJ central venous catheter with tip at the atriocaval junction. No pneumothorax. Chest X-Ray 03/08/18 00:00 CONCLUSION: Decreased mild bilateral pulmonary parenchymal opacity and small left pleural effusion. Objective Remarks: GENERAL: SKIN: Warm and dry. HEAD: Atraumatic. Normocephalic. EYES: Pupils equal and round. No scleral icterus. No injection or drainage. ENT: No nasal bleeding or discharge. Mucous membranes pink and moist. NECK: Trachea midline. No JVD. CARDIOVASCULAR: Regular rate and rhythm. RESPIRATORY: No accessory muscle use. Clear to auscultation. Breath sounds equal bilaterally. GASTROINTESTINAL: Abdomen soft, non-tender, nondistended. Hepatic and splenic margins not palpable. MUSCULOSKELETAL: Extremities without clubbing, cyanosis, or edema. No obvious deformities. NEUROLOGICAL: Awake and alert. No obvious cranial nerve deficits. Motor grossly within normal limits. Five out of 5 muscle strength in the arms and legs. Normal speech. PSYCHIATRIC: Appropriate mood and affect; insight and judgment normal. Assessment and Plan - Assessment and Plan Plan: NEURO/PSYCH: Adjustment disorder with depression Allergic rhinitis Fentanyl 50 mcg every hour/Versed 2 mg IV every 15 minutes bolus as needed for sedation/analgesia while intubated Target RASS 0 Continue escitalopram 20 mg daily/home medication via G-tube Acetaminophen 650 mg every 6 hours by G-tube for fever Continue cetirizine 10 mg daily for allergic rhinitis RESP: Acute respiratory failure 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 Noted initial CXR with pulm edema pattern, may be secondary to negative pressure pulm edema (exacerbated by low oncotic pressure) RUL spiculated lung mass on CT chest -follow-up with Dr. Martin [facility] [address]/08/23/39 Ventilator bundle Albuterol/ipratropium aerosols every 4 hours with albuterol aerosols every 2 hours as needed for dyspnea Methylprednisolone succinate 40 mg IV every 8 hours Spontaneous breathing trial/CPAP trials as clinically indicated Dr. Kunz discussed with son. Agreed with tracheostomy option see his note. Dr. Martin/pulmonary following CV: Hypotension -possibly sepsis with elevated pro-calcitonin Chronic systolic heart failure ejection fraction 35% Received 2 L NS bolus in ED. Currently on norepinephrine drip at 8 mcg/min to maintain >65. 2D echo 02/23/18 ejection fraction 35%, anterior septal hypokinesis. Biatrial dilation. Serial troponins/EKG Lactic acid normal. GI: Severe pharyngeal phase dysphagia -diagnosed by modified barium swallow 6/20/18 Proximal esophageal Stricture, radiation induced Rendon's esophagus GERD Severe chronic protein energy malnutrition Hypoalbuminemia G/J tube in place flush with 60 cc free water every 8 hours Vital 1.5 55/hr per nutrition recs via jejunostomy. G tube to gravity. Pt known to Dr. Aly, with esophageal dilation in the past. Have been planning outpatient esophageal dilation. Plan outpatient/upper esophageal stricture dilatation if patient agrees within the next several days/weeks. Pantoprazole for GI prophylaxis. On omeprazole 20 mg daily at home Docusate sodium/senna 1 tablet twice daily for bowel regimen FEN/RENAL: Acute kidney injury Monitor intake and output. Monitor electrolytes and replace as indicated per electrolyte replacement protocol ID: ? UTI Aspiration pneumonitis/pneumonia Will cover with cefepime 2 g IV every 8 hours day #2. Metronidazole 500 mg every 6 hours. Pertinent cultures 03/08 -sputum -pending 03/06 -blood cultures 2 -coag negative staph -repeat today 03/06 -UA -pending HEME: Leukocytosis Normocytic anemia History of laryngeal cancer Followed by Dr. Pineda for followup h/o laryngeal cancer. Prior radiation and chemo completed 03/2015. Transfuse 1 unit PRBCs today. Recheck in a.m. ENDO: Hypothyroidism Sliding scale insulin with insulin aspart with Accu-Cheks every 6 hours to maintain glycemic Continue levothyroxine 100 mcg by tube daily PROPH: SCDs for DVT prophylaxis. Heparin subcu pantoprazole for stress ulcer prophylaxis and history of GERD. ACCESS: Left IJ CVL day #2 placed 03/07 Level 2 follow-up
[2018-03-08] MEDS ORDERED: Magnesium Sulfate Inj 2 GM in Sodium Chlor 0.9% Inj 96 ML IV.SIG PRN (13:14)
[2018-03-08] MEDS ORDERED: Potassium Chlor 20 mEq Premix 20 MEQ/100 ML PIGGYBACK IV.SIG PRN ×2 (13:14)
[2018-03-08] MEDS ORDERED: Sodium Phosphate Inj 30 MMOL in Sodium Chlor 0.9% Inj 250 ML IV.SIG PRN (13:14)
[2018-03-08] MEDS ORDERED: Magnesium Sulfate Inj 4 GM in Sodium Chlor 0.9% Inj 92 ML IV.SIG PRN (13:14)
[2018-03-08] MEDS ORDERED: Potassium Phosphate Inj 30 MMOL in Sodium Chlor 0.9% Inj 250 ML IV.SIG PRN (13:14)
[2018-03-08] MEDS ORDERED: Potassium Phosphate 500 MG Soluble Tablet PO PRN ×2 (13:14)
[2018-03-08] MEDS ORDERED: Potassium Chlor 40 mEq Premix 40 MEQ/100 ML PIGGYBACK IV.SIG PRN ×2 (13:14)
[2018-03-08] MEDS ORDERED: Magnesium Oxide 400 MG Tablet PO PRN (13:14)
[2018-03-08] MEDS ORDERED: Potassium Chloride 25 MEQ Effervescent Tablet PO PRN (13:14)
[2018-03-08] MEDS ORDERED: Dextrose 50% in Water 50 ML Vial IV.PUSH PRN (13:15)
[2018-03-08] MEDS ORDERED: Hydrocortisone Sod Succinate 100 MG Vial IV.PUSH SCH (14:00)
[2018-03-08] MEDS ORDERED: Albumin Human 5% Inj 500 ML IV.SIG ONE (14:00)
[2018-03-08] MEDS: Mag Sulf 1 gm/100 ml Premix 100 ML IV.SIG SCH ×2 (14:00→16:32)
--- NOTE | 2018-03-08 15:09 | P.PN ---
Subjective Interval history: On CPAP today and FIo2 35 %. She needs a Trach, but is not wanting it. On antibiotics Physical Exam Vital signs: Vital Signs 03/07/18 16:00 03/07/18 16:15 03/07/18 16:30 Temperature 98.3 F Pulse Rate 53 L 57 L Respiratory Rate 37 H 32 H Blood Pressure 97/46 L 97/46 L 102/49 L Pulse Oximetry 100 100 03/07/18 16:43 03/07/18 16:45 03/07/18 17:00 Temperature Pulse Rate 57 L 57 L 53 L Respiratory Rate 14 28 H 36 H Blood Pressure 100/49 L 94/44 L Pulse Oximetry 100 100 100 03/07/18 17:15 03/07/18 17:30 03/07/18 17:45 Temperature Pulse Rate 57 L 55 L 53 L Respiratory Rate 32 H 35 H 24 Blood Pressure 94/46 L 94/45 L 97/46 L Pulse Oximetry 100 100 100 03/07/18 18:00 03/07/18 18:15 03/07/18 18:30 Temperature Pulse Rate 52 L 51 L 51 L Respiratory Rate 27 H 29 H 34 H Blood Pressure 98/44 L 94/44 L 95/45 L Pulse Oximetry 100 100 100 03/07/18 18:45 03/07/18 19:00 03/07/18 19:15 Temperature Pulse Rate 53 L 51 L 58 L Respiratory Rate 27 H 31 H 31 H Blood Pressure 98/45 L 93/44 L 75/37 L Pulse Oximetry 100 100 100 03/07/18 19:16 03/07/18 19:30 03/07/18 19:45 Temperature Pulse Rate 59 L 50 L 50 L Respiratory Rate 24 32 H 24 Blood Pressure 74/36 L 108/51 L 102/47 L Pulse Oximetry 100 100 100 03/07/18 20:00 03/07/18 20:01 03/07/18 20:10 Temperature 98.8 F Pulse Rate 50 L 50 L 57 L Respiratory Rate 25 H 35 H 13 Blood Pressure 101/49 L 101/49 L Pulse Oximetry 100 100 100 03/07/18 20:15 03/07/18 20:30 03/07/18 20:45 Temperature Pulse Rate 60 53 L 52 L Respiratory Rate 38 H 32 H 25 H Blood Pressure 105/50 L 98/46 L 100/46 L Pulse Oximetry 100 100 100 03/07/18 21:00 03/07/18 21:12 03/07/18 21:15 Temperature Pulse Rate 55 L 54 L Respiratory Rate 28 H 26 H 32 H Blood Pressure 102/49 L 95/45 L Pulse Oximetry 100 100 100 03/07/18 21:30 03/07/18 21:45 03/07/18 22:00 Temperature Pulse Rate 54 L 51 L 53 L Respiratory Rate 29 H 26 H 28 H Blood Pressure 99/47 L 100/47 L 96/55 L Pulse Oximetry 100 100 100 03/07/18 22:15 03/07/18 22:30 03/07/18 22:45 Temperature Pulse Rate 53 L 52 L 52 L Respiratory Rate 22 33 H 30 H Blood Pressure 105/48 L 110/51 L 114/51 L Pulse Oximetry 100 100 100 03/07/18 23:00 03/07/18 23:15 03/07/18 23:24 Temperature Pulse Rate 52 L 53 L 52 L Respiratory Rate 25 H 31 H 15 Blood Pressure 103/49 L 108/49 L Pulse Oximetry 100 100 100 03/07/18 23:30 03/07/18 23:46 03/08/18 00:00 Temperature 98.9 F Pulse Rate 53 L 53 L 53 L Respiratory Rate 31 H 30 H 30 H Blood Pressure 109/51 L 111/53 L 117/51 L Pulse Oximetry 100 100 100 03/08/18 00:15 03/08/18 00:30 03/08/18 00:45 Temperature Pulse Rate 64 114 H 112 H Respiratory Rate 41 H 34 H 25 H Blood Pressure 104/50 L 94/51 L 94/48 L Pulse Oximetry 100 100 100 03/08/18 01:00 03/08/18 01:15 03/08/18 01:30 Temperature Pulse Rate 115 H 116 H 119 H Respiratory Rate 24 30 H 34 H Blood Pressure 94/54 L 98/55 L 107/56 L Pulse Oximetry 100 100 100 03/08/18 01:45 03/08/18 02:00 03/08/18 02:15 Temperature Pulse Rate 116 H 114 H 117 H Respiratory Rate 30 H 34 H 43 H Blood Pressure 91/49 L 96/52 L 93/54 L Pulse Oximetry 100 100 100 03/08/18 02:21 03/08/18 02:30 03/08/18 02:45 Temperature Pulse Rate 113 H 113 H 113 H Respiratory Rate 32 H 29 H 28 H Blood Pressure 105/52 L 95/53 L 96/50 L Pulse Oximetry 100 100 100 03/08/18 03:00 03/08/18 03:01 03/08/18 03:15 Temperature Pulse Rate 69 68 65 Respiratory Rate 28 H 24 26 H Blood Pressure 113/53 L 116/53 L Pulse Oximetry 100 100 100 03/08/18 03:30 03/08/18 03:44 03/08/18 03:45 Temperature Pulse Rate 63 64 62 Respiratory Rate 26 H 27 H 27 H Blood Pressure 107/54 L 118/58 L Pulse Oximetry 100 100 03/08/18 04:00 03/08/18 04:15 03/08/18 04:27 Temperature 98.7 F Pulse Rate 65 67 Respiratory Rate 27 H 29 H 20 Blood Pressure 117/52 L 104/50 L Pulse Oximetry 100 100 100 03/08/18 04:30 03/08/18 04:45 03/08/18 05:00 Temperature Pulse Rate 62 64 59 L Respiratory Rate 27 H 25 H 24 Blood Pressure 110/56 L 114/53 L 117/57 L Pulse Oximetry 100 100 100 03/08/18 05:15 03/08/18 05:30 03/08/18 05:45 Temperature Pulse Rate 61 61 61 Respiratory Rate 26 H 22 24 Blood Pressure 114/55 L 112/56 L 111/54 L Pulse Oximetry 100 100 100 03/08/18 06:00 03/08/18 06:16 03/08/18 06:30 Temperature Pulse Rate 75 64 61 Respiratory Rate 45 H 24 25 H Blood Pressure 116/56 L 106/50 L 110/51 L Pulse Oximetry 97 100 100 03/08/18 08:00 03/08/18 08:15 03/08/18 08:16 Temperature 98 F Pulse Rate 59 L 59 L Respiratory Rate 24 27 H 18 Blood Pressure 109/51 L Pulse Oximetry 100 100 03/08/18 10:00 03/08/18 11:00 Temperature Pulse Rate 53 L 55 L Respiratory Rate 16 Blood Pressure Pulse Oximetry Intake & Output 03/07/18 03/08/18 03/08/18 18:59 06:59 18:59 Intake Total 594 / 594 2436 / 2436 Output Total 1000 / 1000 1250 / 1250 Balance -406 / -406 1186 / 1186 Weight 66.3 kg Intake: IV 350 / 350 2100 / 2100 Maxipime Inj 2,000 MG In NS Inj 100 / 100 100 / 100 100 ML @ 200 mls/hr IV.SIG Q12H ANN Rx#:[id number] Levophed-Dextrose 4 mg/250 ml 250 / 250 500 / 500 Drip 4 mg In 250 ml @ 2 MCG/MIN 7.5 mls/hr IV.SIG TITRATE PRN Rx#:[id number] Tube Feeding 124 / 124 216 / 216 Water Bolus Amount 120 / 120 120 / 120 Output: Urine Amount (Catheter) 700 / 700 650 / 650 Indwelling Urethral Catheter 700 / 700 650 / 650 Gastric Drainage 300 / 300 600 / 600 Pre-Hospital Gastrojejunostomy 300 / 300 600 / 600 Tube Other: # Bowel Movements 0 0 Narrative: GENERAL: Elderly W/F on vent support.Intubated SKIN: Warm and dry. HEAD: Normocephalic. EYES: No scleral icterus. No injection or drainage. NECK: Supple, trachea midline. No JVD or lymphadenopathy. CARDIOVASCULAR: Irregular rate and rhythm without murmurs, gallops, or rubs. RESPIRATORY: Breath sounds equal bilaterally. Occ Crackles at bases.Occ wheeze. GASTROINTESTINAL: Abdomen soft, non-tender, nondistended. MUSCULOSKELETAL: No cyanosis, or edema. BACK: Nontender without obvious deformity. No CVA tenderness. - Urinary Catheter Management Indwelling Urethral Catheter Cath placed during this visit: yes Reason for continuing: Acute urinary retention Insertion date: 03/06/18 Insertion time: 18:00 Results - Labs CBC & Chem 7: 03/08/18 04:50 03/08/18 04:50 Laboratory Results - last 24 hr 03/07/18 03/07/18 03/08/18 17:38 20:52 04:50 WBC 15.9 H RBC 2.34 L Hgb 7.1 L Hct 21.6 L MCV 92.5 MCH 30.2 MCHC 32.6 RDW 18.3 H Plt Count 303 MPV 10.6 Prelim Diff (Auto) Manual diff required WBC Differential Manual diff final Seg Neuts % (Manual) 75 H Band Neuts % (Manual) 14 H Lymphocytes % (Manual) 1 L Monocytes % (Manual) 4 Metamyelocytes % (Man) 5 H Myelocytes % (Man) 1 H Abs Neuts (Manual) 15.1 H Differential Comment . Toxic Vacuolation Present H Platelet Estimate Normal Platelet Morphology Enlarged H Ovalocytes 1+ H Puncture Site Left radial Patient Temperature 98.6 O2 Saturation 97 ABG pH 7.37 L ABG pCO2 44 H ABG pO2 134 H ABG HCO3 24 ABG O2 Content 10.2 L ABG Base Excess -0.3 ABG Methemoglobin 1.5 Terrell Test Y Hemoglobin 7.3 L Carboxyhemoglobin 0.7 O2 Delivery Device Ventilator Vent Setting Cpap5/ps8 Inspired O2 35 Critical Value No Sodium Potassium Chloride Carbon Dioxide Anion Gap BUN Creatinine Estimated GFR POC Glucose 124 H Random Glucose Calcium Phosphorus Magnesium Total Bilirubin AST ALT Alkaline Phosphatase Total Protein Albumin Blood Type Antibody Screen MTS Gel Crossmatch 03/08/18 03/08/18 04:50 13:50 WBC RBC Hgb Hct MCV MCH MCHC RDW Plt Count MPV Prelim Diff (Auto) WBC Differential Seg Neuts % (Manual) Band Neuts % (Manual) Lymphocytes % (Manual) Monocytes % (Manual) Metamyelocytes % (Man) Myelocytes % (Man) Abs Neuts (Manual) Differential Comment Toxic Vacuolation Platelet Estimate Platelet Morphology Ovalocytes Puncture Site Patient Temperature O2 Saturation ABG pH ABG pCO2 ABG pO2 ABG HCO3 ABG O2 Content ABG Base Excess ABG Methemoglobin Terrell Test Hemoglobin Carboxyhemoglobin O2 Delivery Device Vent Setting Inspired O2 Critical Value Sodium 137 Potassium 4.5 Chloride 103 Carbon Dioxide 21.8 Anion Gap 12 BUN 40 H Creatinine 1.26 H Estimated GFR 42 L POC Glucose Random Glucose 162 H Calcium 8.1 L D Phosphorus 3.5 Magnesium 1.8 Total Bilirubin 0.5 AST 23 ALT 27 Alkaline Phosphatase 63 Total Protein 5.1 L Albumin 1.7 L Blood Type B Positive Antibody Screen Negative MTS Gel Crossmatch See Detail Microbiology 03/06/18 18:00 Catheterized Urine Urine Culture - Preliminary No growth in 24 hours 03/06/18 19:05 Blood - Peripheral Aerobic Blood Culture - Preliminary No growth in 2 days 03/06/18 19:05 Blood - Peripheral Anaerobic Blood Culture - Preliminary No growth in 2 days 03/06/18 18:45 Blood - Peripheral Aerobic Blood Culture - Preliminary Staphylococcus coag negative 03/06/18 18:45 Blood - Peripheral Anaerobic Blood Culture - Preliminary No growth in 2 days 03/08/18 05:10 Sputum - Endotracheal Gram Stain - Final - Imaging Impressions Chest X-Ray 03/08/18 00:00 CONCLUSION: Decreased mild bilateral pulmonary parenchymal opacity and small left pleural effusion. 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 - Malignant neoplasm of larynx, unspecified Status: Acute (3) Supraglottic stenosis Code(s): J38.6 - Stenosis of larynx Status: Acute (4) Status post radiation therapy Code(s): Z92.3 - Personal history of irradiation Status: Acute (5) Barretts esophagus Code(s): K22.70 - Rendon's esophagus without dysplasia Status: Acute (6) Dyspnea Code(s): R06.00 - Dyspnea, unspecified Status: Acute (7) Septic shock Code(s): A41.9 - Sepsis, unspecified organism; R65.21 - Severe sepsis with septic shock Status: Resolved (8) Aspiration pneumonia Code(s): J69.0 - Pneumonitis due to inhalation of food and vomit Status: Acute - Plan 1. Will Wean Vent to CPAP/PSV , FIo2 30 %. 2. Tracheostomy per Dr Yates. 3. Continue nebs q6h 4. Chest Xray , CBC,BMP in am 5. Continue solumedrol 40 mg IV Q8H (8) Aspiration pneumonia Qualifiers: Aspiration pneumonia type: unspecified Laterality: unspecified laterality Lung location: unspecified part of lung Qualified Code(s): J69.0 - Pneumonitis due to inhalation of food and vomit
[2018-03-08] MEDS: metroNIDAZOLE 500 MG Tablet PO SCH ×2 (19:14→23:45)
[2018-03-08] MEDS: Insulin NovoLOG Aspart Correctional Sugar Inj SQ SCH (19:14)
[2018-03-08] MEDS: Ascorbic Acid 500 MG Tablet G-TUBE SCH (21:27)
[2018-03-09 00:22] LABS: Mean Corpuscular HGB Conc 32.8 % (32.0-36.0); Mean Corpuscular Hemoglobin 29.7 pg (27.0-34.0); Mean Corpuscular Volume 90.8 fL (80.0-100.0); Mean Platelet Volume 10.5 fL (7.0-11.0); Platelet Count 307 th/mm3 (150-450); Red Blood Count 2.28 mil/mm3 (4.00-5.30); Red Cell Distribution Width 18.8 % (11.6-17.2); White Blood Count 18.7 th/mm3 (4.0-11.0)
[2018-03-09 00:25] LABS: Hematocrit 20.7 % (35.0-46.0); Hemoglobin 6.8 gm/dL (11.6-15.3)
[2018-03-09] MEDS: Insulin NovoLOG Aspart Correctional Sugar Inj SQ SCH ×4 (00:45→17:55)
[2018-03-09 00:52] LABS: Anion Gap 10 meq/L (5-15); Blood Urea Nitrogen 40 mg/dL (7-18); Calcium 8.1 mg/dL (8.5-10.1); Carbon Dioxide 23.7 meq/L (21.0-32.0); Chloride 102 meq/L (98-107); Glomerular Filtration Rate 43 mL/min (>89); Glucose,Random 155 mg/dL (74-106); Potassium 4.3 meq/L (3.5-5.1); Sodium 136 meq/L (136-145)
[2018-03-09] MEDS: Oral Hygiene Kit OROPHARYNG SCH ×4 (00:55→17:57)
[2018-03-09] MEDS ORDERED: Sodium Chlor 0.9% Inj 250 ML IV.SIG SCH (01:00)
[2018-03-09] MEDS: Hypromellose 0.3% Opth Gel 10 GM Bottle EACH EYE SCH ×3 (01:00→18:59)
[2018-03-09] MEDS: Chlorhexidine Gluconate 2% 1 Pack (2 Cloths) TOPICAL SCH (04:32)
[2018-03-09 05:08] LABS: Lymphocytes 6 % (9-44); Metamyelocytes 3 % (0-1); Monocytes 6 % (0-8); Myelocytes 2 % (0-0)
[2018-03-09 05:09] LABS: Ovalocytes 1+; Platelet Estimate Normal (Normal)
--- NOTE | 2018-03-09 05:45 | XR ---
EXAM DATE: 03/09/2018 5:38 AM EDT AGE/SEX: 73 years / Female INDICATIONS: Respiratory failure. CLINICAL DATA: This is the patient's subsequent encounter. Patient reports that signs and symptoms h ave been present for 2 weeks and indicates a pain score of 3/10. MEDICAL/SURGICAL HISTORY: . Chronic obstructive pulmonary disease. Hypothyroidism. Gastroesoph ageal reflux disease. Throat cancer. . . Cholecystectomy. Appendectomy. Hernia repair. COMPARISON: [facility] [place], CHEST 1V SINGLE AP, 03/08/2018. . FINDINGS: Single AP view of the chest. Endotracheal tube, and left IJ central venous catheter remain in place. Mild patchy bilateral lower lung zone opacity unchanged. Cardiomediastinal silhouette with in normal limits. No evidence of pleural effusion or pneumothorax. CONCLUSION: Mild bilateral lower lung opacity unchanged. Electronically signed by: Jarad Orr MD 03/09/2018 5:44 AM EDT
[2018-03-09] MEDS: metroNIDAZOLE 500 MG Tablet PO SCH ×2 (06:30→11:09)
[2018-03-09] MEDS: Levothyroxine 100 MCG Tablet NG/OG SCH (06:30)
[2018-03-09] MEDS: MethylPREDNISolone Sod Succinate Inj 40 MG/ML Vial IV.PUSH SCH ×3 (06:30→23:06)
--- NOTE | 2018-03-09 08:56 | P.PNCC ---
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 Hooper and Dr. Pineda (completed March 2015) with followup imaging negative for residual disease (05/2015, 09/2015). She was recently admitted to [facility] hospitalist service on after she presented with anemia with hemoglobin of 6.3, dysphagia and failure to thrive. She previously had G/J tube that became dislodged in May and she had been drinking nutritional shakes at home but had progressive difficulty with swallowing and developed cachexia. Modified barium swallow confirmed aspiration and she underwent laparoscopic GJ placement [address] Kraus. She had been n.p.o. and receiving continuous jejunal tube feeds when she developed severe respiratory distress and hypoxia requiring intubation 02/22/18. She had obvious evidence of aspiration on intubation. CT neck showed no e/o laryngeal mass. She was evaluated by ENT and underwent laryngoscopy that showed no evidence of disease recurrence and findings were consistent with radiation induced scarring. She was extubated 02/25. She was ultimately discharged to skilled nursing 03/03/18. She again presented [place] [facility] [place] with respiratory failure. Reportedly sats were in the 50s upon their arrival. She was intubated at the scene. Reportedly a large amount of secretions suctioned out post intubation. White blood cell count was 14. She was hypotensive at [place] where she was administered 2 L normal saline bolus. ED physician then placed right femoral central line after unsuccessful placement right IJ central line. Levophed drip was started. Her son states he is a physician's photo studio assistant in the field of critical care and expresses frustration with recurrent respiratory failure. States she had jejunal tube feeds running at goal but had not taken anything p.o. Requests ENT reconsultation for recommendations for tracheostomy. 03/08: Afebrile. Resting in bed comfortably in no acute distress. Nods head appropriately to questions. Moves all 4 extremities spontaneously. Tube feeds currently at 40 cc an hour. Remains on norepinephrine 8 mg/min. Discussed with Alireza Whitten/healthcare proxy and son. Requesting tracheostomy. He will be here this afternoon discussed with mother and will consult once verified consent. Subjective: 03/09: Afebrile. Remains on norepinephrine drip at 7 mcg/min. Consent for percutaneous tracheostomy. Consult placed. Appears comfortable. Received 1 unit PRBCs overnight for a total of 2 since admission. Repeat hemoglobin pending. Objective Vital Signs / I&O: Vital Signs 03/08/18 10:00 03/08/18 11:00 03/08/18 15:40 Temperature Pulse Rate 53 L 55 L 109 H Respiratory Rate 16 24 Blood Pressure Pulse Oximetry 03/08/18 15:41 03/08/18 17:05 03/08/18 19:00 Temperature 98.1 F 98 F Pulse Rate 72 58 L Respiratory Rate 18 20 Blood Pressure 97/48 L 105/53 L Pulse Oximetry 100 03/08/18 20:00 03/08/18 21:00 03/08/18 21:02 Temperature 98 F Pulse Rate 64 64 Respiratory Rate 20 23 22 Blood Pressure 116/53 L 103/51 L Pulse Oximetry 100 99 100 03/08/18 21:03 03/08/18 22:00 03/08/18 23:00 Temperature Pulse Rate 62 64 64 Respiratory Rate 22 16 18 Blood Pressure 96/49 L 110/53 L Pulse Oximetry 03/08/18 23:30 03/08/18 23:40 03/09/18 00:00 Temperature Pulse Rate 57 L 62 Respiratory Rate 16 16 25 H Blood Pressure 108/53 L Pulse Oximetry 100 03/09/18 01:00 03/09/18 02:00 03/09/18 03:00 Temperature 98.3 F Pulse Rate 60 58 L 55 L Respiratory Rate 22 25 H 24 Blood Pressure 112/53 L 103/50 L 114/56 L Pulse Oximetry 03/09/18 03:09 03/09/18 03:26 03/09/18 03:35 Temperature 98.3 F 98 F Pulse Rate 55 L 60 55 L Respiratory Rate 25 H 18 Blood Pressure 114/56 L 113/55 L Pulse Oximetry 100 03/09/18 03:58 03/09/18 04:00 03/09/18 05:00 Temperature Pulse Rate 57 L 55 L Respiratory Rate 20 19 19 Blood Pressure 130/56 L 116/56 L Pulse Oximetry 100 03/09/18 06:00 03/09/18 07:00 03/09/18 07:37 Temperature Pulse Rate 57 L 58 L Respiratory Rate 16 23 13 Blood Pressure 120/56 L Pulse Oximetry Intake & Output 03/08/18 03/09/18 03/09/18 18:59 06:59 18:59 Intake Total 100 / 100 1184 / 1184 Output Total 2300 / 2300 Balance 100 / 100 -1116 / -1116 Weight 67.8 kg Intake: IV 100 / 100 450 / 450 Maxipime Inj 2,000 MG In NS Inj 200 / 200 100 ML @ 200 mls/hr IV.SIG Q12H [facility] Rx#:[id number] Magnesium Sulfate 1 gm/D5W 100 100 / 100 ml Premix 100 ML @ 100 mls/hr IV.SIG Q1H [facility] Rx#:[id number] Levophed-Dextrose 4 mg/250 ml 250 / 250 Drip 4 mg In 250 ml @ 2 MCG/MIN 7.5 mls/hr IV.SIG TITRATE PRN Rx#:[id number] Tube Feeding 214 / 214 Water Bolus Amount 120 / 120 Intake (Blood Product) Amt 400 / 400 Rbc As-3 Leukoreduced Unit 400 / 400 [id number] Output: Urine Amount (Catheter) 1700 / 1700 Indwelling Urethral Catheter 1700 / 1700 Gastric Drainage 600 / 600 Pre-Hospital Gastrojejunostomy 600 / 600 Tube Other: # Bowel Movements 0 Result Diagrams: 03/09/18 00:01 03/09/18 00:01 Other Results: Microbiology 03/06/18 18:45 Blood - Peripheral Aerobic Blood Culture - Preliminary Staphylococcus coag negative 03/06/18 18:45 Blood - Peripheral Anaerobic Blood Culture - Preliminary No growth in 2 days 03/06/18 18:00 Catheterized Urine Urine Culture - Preliminary No growth in 24 hours 03/06/18 19:05 Blood - Peripheral Aerobic Blood Culture - Preliminary No growth in 2 days 03/06/18 19:05 Blood - Peripheral Anaerobic Blood Culture - Preliminary No growth in 2 days 03/08/18 05:10 Sputum - Endotracheal Gram Stain - Final Imaging: Chest X-Ray 03/06/18 17:56 CONCLUSION: 1. ET tube in good position. 2. Interval development of nonconsolidative airspace opacities in the central lungs bilaterally suggesting pulmonary edema. 3. Stable left lower lobe consolidation. Chest X-Ray 03/07/18 05:35 CONCLUSION: 1. Modestly improved bibasilar consolidation. 2. Small left pleural effusion not significantly changed. 3. New left IJ central venous catheter with tip at the atriocaval junction. No pneumothorax. Chest X-Ray 03/08/18 00:00 CONCLUSION: Decreased mild bilateral pulmonary parenchymal opacity and small left pleural effusion. Chest X-Ray 03/09/18 06:00 CONCLUSION: Mild bilateral lower lung opacity unchanged. Objective Remarks: GENERAL: 73-year-old female currently resting in bed in no acute distress orotracheally intubated SKIN: Warm and dry. HEAD: Atraumatic. Normocephalic. EYES: Pupils equal and round. No scleral icterus. No injection or drainage. ENT: No nasal bleeding or discharge. Mucous membranes pink and moist. Orotracheally intubated NECK: Trachea midline. No JVD. Left IJ CVL is clean dry and intact. CARDIOVASCULAR: Bradycardic, RR. RESPIRATORY: Few scattered crackles appreciated bases bilaterally. No wheezes. Breath sounds equal bilaterally. GASTROINTESTINAL: Abdomen soft, non-tender, nondistended. Hepatic and splenic margins not palpable. MUSCULOSKELETAL: Extremities with trace bilateral upper extremity edema. No obvious deformities. NEUROLOGICAL: Awake and alert. Following commands on the ventilator. Moves all 4 extremities spontaneously. Assessment and Plan - Assessment and Plan Plan: NEURO/PSYCH: Adjustment disorder with depression Allergic rhinitis Fentanyl 50 mcg every hour/Versed 2 mg IV every 15 minutes bolus as needed for sedation/analgesia while intubated Target RASS 0 Continue escitalopram 20 mg daily/home medication via G-tube Acetaminophen 650 mg every 6 hours by G-tube for fever Continue cetirizine 10 mg daily for allergic rhinitis RESP: Acute respiratory failure 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 Noted initial CXR with pulm edema pattern, may be secondary to negative pressure pulm edema (exacerbated by low oncotic pressure) RUL spiculated lung mass on CT chest -follow-up with Dr. Martin [facility] 16/08/23/39 Ventilator bundle Albuterol/ipratropium aerosols every 4 hours with albuterol aerosols every 2 hours as needed for dyspnea Methylprednisolone succinate 40 mg IV every 8 hours Spontaneous breathing trial/CPAP trials as clinically indicated Dr. Kunz discussed with son. Agreed with tracheostomy option see his note. Dr. Martin/pulmonary following CV: Hypotension -possibly sepsis with elevated pro-calcitonin Chronic systolic heart failure ejection fraction 35% Received 2 L NS bolus in ED. Currently on norepinephrine drip at 8 mcg/min to maintain >65. 2D echo 02/23/18 ejection fraction 35%, anterior septal hypokinesis. Biatrial dilation. Serial troponins/EKG Lactic acid normal. GI: Severe pharyngeal phase dysphagia -diagnosed by modified barium swallow 02/05/18 Proximal esophageal Stricture, radiation induced Rendon's esophagus GERD Severe chronic protein energy malnutrition Hypoalbuminemia G/J tube in place flush with 60 cc free water every 8 hours Vital 1.5 55/hr per nutrition recs via jejunostomy. G tube to gravity. Pt known to Dr. Aly, with esophageal dilation in the past. Have been planning outpatient esophageal dilation. Plan outpatient/upper esophageal stricture dilatation if patient agrees within the next several days/weeks. Pantoprazole for GI prophylaxis. On omeprazole 20 mg daily at home Docusate sodium/senna 1 tablet twice daily for bowel regimen FEN/RENAL: Acute kidney injury Monitor intake and output. Monitor electrolytes and replace as indicated per electrolyte replacement protocol Creatinine currently 1.2 and stable. ID: ? UTI Aspiration pneumonitis/pneumonia Will cover with cefepime 2 g IV every 8 hours day #3. Metronidazole 500 mg every 6 hours day #2 to cover for anaerobic coverage. Pertinent cultures Recheck blood cultures 2 03/09 03/08 -sputum -pending 03/06 -blood cultures 2 -coag negative staph - 03/06 -UA -pending HEME: Leukocytosis Normocytic anemia History of laryngeal cancer Followed by Dr. Pineda for followup h/o laryngeal cancer. Prior radiation and chemo completed 03/2015. Transfuse 1 unit PRBCs today. And 1 unit PRBCs overnight for a total of 2 recheck in a.m. ENDO: Hypothyroidism Sliding scale insulin with insulin aspart with Accu-Cheks every 6 hours to maintain glycemic Continue levothyroxine 100 mcg by tube daily PROPH: SCDs for DVT prophylaxis. Heparin subcu pantoprazole for stress ulcer prophylaxis and history of GERD. ACCESS: Left IJ CVL day #3 placed 03/07 Level 2 follow-up
[2018-03-09] MEDS ORDERED: Albumin Human 25% Inj 100 ML IV.SIG ONE (09:00)
[2018-03-09 09:20] LABS: Hematocrit 23.7 % (35.0-46.0); Hemoglobin 7.9 gm/dL (11.6-15.3)
[2018-03-09] MEDS: Chlorhexidine 0.12% Oral Kit 15 ML UDC OROPHARYNG SCH ×2 (09:36→20:51)
[2018-03-09] MEDS: Pantoprazole Inj 40 MG Vial IV.PUSH SCH (09:36)
[2018-03-09] MEDS: Senna/Docusate Sodium 8.6/50 MG Tablet PO SCH ×2 (09:37→20:50)
[2018-03-09] MEDS: Ascorbic Acid 500 MG Tablet G-TUBE SCH ×2 (09:37→20:50)
[2018-03-09] MEDS: Heparin - SQ 10,000 UNITS/ML Vial SQ SCH ×2 (09:38→20:50)
[2018-03-09] MEDS ORDERED: Vancomycin Consult Pharmacy 1 EACH OTHER SCH (16:00)
--- NOTE | 2018-03-09 17:28 | P.PN ---
Subjective Interval history: On vent support, and CPAP at present ,FIO2 at 30% Will have a Trach placed on Saturday. Tolerates feeds. Physical Exam Vital signs: Vital Signs 03/08/18 19:00 03/08/18 20:00 03/08/18 21:00 Temperature 98 F 98 F Pulse Rate 58 L 64 64 Respiratory Rate 20 20 23 Blood Pressure 105/53 L 116/53 L 103/51 L Pulse Oximetry 100 100 99 03/08/18 21:02 03/08/18 21:03 03/08/18 22:00 Temperature Pulse Rate 62 64 Respiratory Rate 22 22 16 Blood Pressure 96/49 L Pulse Oximetry 100 03/08/18 23:00 03/08/18 23:30 03/08/18 23:40 Temperature Pulse Rate 64 57 L Respiratory Rate 18 16 16 Blood Pressure 110/53 L Pulse Oximetry 100 03/09/18 00:00 03/09/18 01:00 03/09/18 02:00 Temperature Pulse Rate 62 60 58 L Respiratory Rate 25 H 22 25 H Blood Pressure 108/53 L 112/53 L 103/50 L Pulse Oximetry 03/09/18 03:00 03/09/18 03:09 03/09/18 03:26 Temperature 98.3 F 98.3 F 98 F Pulse Rate 55 L 55 L 60 Respiratory Rate 24 25 H Blood Pressure 114/56 L 114/56 L 113/55 L Pulse Oximetry 100 03/09/18 03:35 03/09/18 03:58 03/09/18 04:00 Temperature Pulse Rate 55 L 57 L Respiratory Rate 18 20 19 Blood Pressure 130/56 L Pulse Oximetry 100 03/09/18 05:00 03/09/18 06:00 03/09/18 07:00 Temperature Pulse Rate 55 L 57 L 58 L Respiratory Rate 19 16 23 Blood Pressure 116/56 L 120/56 L Pulse Oximetry 03/09/18 07:37 03/09/18 07:45 03/09/18 08:00 Temperature Pulse Rate 58 L 53 L Respiratory Rate 13 12 14 Blood Pressure 131/57 L 125/60 Pulse Oximetry 100 100 03/09/18 08:16 03/09/18 08:30 03/09/18 08:46 Temperature Pulse Rate 107 H 52 L 53 L Respiratory Rate 24 14 16 Blood Pressure 148/63 H 120/60 135/62 Pulse Oximetry 100 99 99 03/09/18 09:00 03/09/18 09:15 03/09/18 09:30 Temperature Pulse Rate 52 L 52 L 52 L Respiratory Rate 12 13 15 Blood Pressure 133/59 L 127/58 L 130/60 Pulse Oximetry 100 100 99 03/09/18 09:45 03/09/18 10:00 03/09/18 10:15 Temperature Pulse Rate 57 L 65 52 L Respiratory Rate 17 20 13 Blood Pressure 130/62 128/58 L 123/60 Pulse Oximetry 100 100 99 03/09/18 10:30 03/09/18 10:45 03/09/18 11:00 Temperature Pulse Rate 56 L 52 L 51 L Respiratory Rate 15 13 13 Blood Pressure 100/49 L 125/58 L 124/60 Pulse Oximetry 99 100 100 03/09/18 11:15 03/09/18 11:30 03/09/18 11:45 Temperature Pulse Rate 55 L 54 L 55 L Respiratory Rate 16 14 14 Blood Pressure 132/63 129/63 137/61 Pulse Oximetry 99 99 99 03/09/18 12:00 03/09/18 12:08 03/09/18 12:15 Temperature Pulse Rate 59 L 56 L Respiratory Rate 18 26 H 19 Blood Pressure 133/63 131/60 Pulse Oximetry 99 99 03/09/18 12:30 03/09/18 12:45 03/09/18 13:00 Temperature Pulse Rate 56 L 56 L 60 Respiratory Rate 14 14 16 Blood Pressure 127/61 123/59 L 125/59 L Pulse Oximetry 99 99 99 03/09/18 13:15 03/09/18 13:30 03/09/18 13:45 Temperature Pulse Rate 56 L 55 L 57 L Respiratory Rate 14 14 27 H Blood Pressure 124/58 L 120/57 L 123/60 Pulse Oximetry 100 99 98 03/09/18 14:00 03/09/18 14:15 03/09/18 14:30 Temperature Pulse Rate 60 57 L 61 Respiratory Rate 37 H 30 H 30 H Blood Pressure 133/62 121/59 L 127/60 Pulse Oximetry 99 100 100 03/09/18 14:45 03/09/18 15:00 03/09/18 15:12 Temperature Pulse Rate 55 L 54 L Respiratory Rate 35 H 28 H 18 Blood Pressure 127/59 L 127/59 L Pulse Oximetry 100 99 99 07/22/18 15:15 03/09/18 15:30 03/09/18 15:45 Temperature Pulse Rate 100 H 101 H 104 H Respiratory Rate 19 22 19 Blood Pressure 116/52 L 114/55 L 111/53 L Pulse Oximetry 99 99 99 03/09/18 16:00 03/09/18 16:15 03/09/18 16:30 Temperature Pulse Rate 105 H 58 L 56 L Respiratory Rate 20 38 H 30 H Blood Pressure 108/54 L 121/57 L 116/56 L Pulse Oximetry 99 100 100 03/09/18 16:45 Temperature Pulse Rate 61 Respiratory Rate 30 H Blood Pressure 115/56 L Pulse Oximetry 98 Intake & Output 03/08/18 03/09/18 03/09/18 18:59 06:59 18:59 Intake Total 100 / 100 1184 / 1184 250 / 250 Output Total 2300 / 2300 Balance 100 / 100 -1116 / -1116 250 / 250 Weight 67.8 kg Intake: IV 100 / 100 450 / 450 250 / 250 Maxipime Inj 2,000 MG In NS Inj 200 / 200 100 ML @ 200 mls/hr IV.SIG Q12H [facility] Rx#:[id number] Magnesium Sulfate 1 gm/D5W 100 100 / 100 ml Premix 100 ML @ 100 mls/hr IV.SIG Q1H [facility] Rx#:[id number] Levophed-Dextrose 4 mg/250 ml 250 / 250 250 / 250 Drip 4 mg In 250 ml @ 2 MCG/MIN 7.5 mls/hr IV.SIG TITRATE PRN Rx#:[id number] Tube Feeding 214 / 214 Water Bolus Amount 120 / 120 Intake (Blood Product) Amt 400 / 400 Rbc As-3 Leukoreduced Unit 400 / 400 [id number] Output: Urine Amount (Catheter) 1700 / 1700 Indwelling Urethral Catheter 1700 / 1700 Gastric Drainage 600 / 600 Pre-Hospital Gastrojejunostomy 600 / 600 Tube Other: # Bowel Movements 0 Narrative: GENERAL: Elderly W/F on vent support.Intubated SKIN: Warm and dry. HEAD: Normocephalic.Alert and responds to commands well. EYES: No scleral icterus. No injection or drainage. NECK: Supple, trachea midline. No JVD or lymphadenopathy. CARDIOVASCULAR: Irregular rate and rhythm without murmurs, gallops, or rubs. RESPIRATORY: Breath sounds equal bilaterally. Occ Crackles at bases.Mild wheeze. GASTROINTESTINAL: Abdomen soft, non-tender, nondistended. MUSCULOSKELETAL: No cyanosis, or edema. BACK: Nontender without obvious deformity. No CVA tenderness. - Urinary Catheter Management Indwelling Urethral Catheter Cath placed during this visit: yes Reason for continuing: Hourly intake/output Insertion date: 03/06/18 Insertion time: 18:00 Results - Labs CBC & Chem 7: 03/09/18 15:22 03/09/18 00:01 Laboratory Results - last 24 hr 03/06/18 03/08/18 03/09/18 18:00 21:00 00:01 WBC 18.7 H RBC 2.28 L Hgb 6.8 L* Hct 20.7 L* MCV 90.8 MCH 29.7 MCHC 32.8 RDW 18.8 H Plt Count 307 MPV 10.5 Prelim Diff (Auto) Manual diff required WBC Differential Manual diff final Seg Neuts % (Manual) 77 H Band Neuts % (Manual) 6 Lymphocytes % (Manual) 6 L Monocytes % (Manual) 6 Metamyelocytes % (Man) 3 H Myelocytes % (Man) 2 H Abs Neuts (Manual) 16.5 H Differential Comment . Platelet Estimate Normal Platelet Morphology Enlarged H Ovalocytes 1+ H Sodium Potassium Chloride Carbon Dioxide Anion Gap BUN Creatinine Estimated GFR POC Glucose Random Glucose Lactic Acid Calcium Magnesium 2.4 D Troponin I Urine Color Yellow Urine Clarity Slightly cloudy Urine pH 7.0 Ur Specific [place] 1.010 Urine Protein 30 H Urine Glucose (UA) Negative Urine Ketones Negative Urine Occult Blood Negative Urine Nitrate Negative Urine Bilirubin Negative Urine Urobilinogen 1.0 Ur Leukocyte Esterase Moderate H Urine RBC 0-3 Urine WBC 9-20 H Urine WBC Clumps Few H Ur Squamous Epith Cells 0-5 Amorphous Sediment Few H Urine Bacteria Few H Micro UA Comment Cath-culture ind Urine Culture Comments Cath-cult indicated Urine Comment 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 MTS Gel Crossmatch 03/09/18 03/09/18 03/09/18 00:01 00:01 00:07 WBC RBC Hgb Hct MCV MCH MCHC RDW Plt Count MPV Prelim Diff (Auto) WBC Differential Seg Neuts % (Manual) Band Neuts % (Manual) Lymphocytes % (Manual) Monocytes % (Manual) Metamyelocytes % (Man) Myelocytes % (Man) Abs Neuts (Manual) Differential Comment Platelet Estimate Platelet Morphology Ovalocytes Sodium 136 Potassium 4.3 Chloride 102 Carbon Dioxide 23.7 Anion Gap 10 BUN 40 H Creatinine 1.23 H Estimated GFR 43 L POC Glucose 174 H Random Glucose 155 H Lactic Acid 1.5 Calcium 8.1 L Magnesium Troponin I Less than 0.02 L Urine Color Urine Clarity Urine pH Ur Specific [place] Urine Protein Urine Glucose (UA) Urine Ketones Urine Occult Blood Urine Nitrate Urine Bilirubin Urine Urobilinogen Ur Leukocyte Esterase Urine RBC Urine WBC Urine WBC Clumps Ur Squamous Epith Cells Amorphous Sediment Urine Bacteria Micro UA Comment Urine Culture Comments Urine Comment MTS Gel Crossmatch 03/09/18 03/09/18 03/09/18 02:10 05:40 08:40 WBC RBC Hgb 7.9 L Hct 23.7 L MCV MCH MCHC RDW Plt Count MPV Prelim Diff (Auto) WBC Differential Seg Neuts % (Manual) Band Neuts % (Manual) Lymphocytes % (Manual) Monocytes % (Manual) Metamyelocytes % (Man) Myelocytes % (Man) Abs Neuts (Manual) Differential Comment Platelet Estimate Platelet Morphology Ovalocytes Sodium Potassium Chloride Carbon Dioxide Anion Gap BUN Creatinine Estimated GFR POC Glucose 166 H Random Glucose Lactic Acid Calcium Magnesium Troponin I Urine Color Urine Clarity Urine pH Ur Specific [place] Urine Protein Urine Glucose (UA) Urine Ketones Urine Occult Blood Urine Nitrate Urine Bilirubin Urine Urobilinogen Ur Leukocyte Esterase Urine RBC Urine WBC Urine WBC Clumps Ur Squamous Epith Cells Amorphous Sediment Urine Bacteria Micro UA Comment Urine Culture Comments Urine Comment MTS Gel Crossmatch See Detail 03/09/18 03/09/18 14:34 15:22 WBC RBC Hgb 7.8 L Hct MCV MCH MCHC RDW Plt Count MPV Prelim Diff (Auto) WBC Differential Seg Neuts % (Manual) Band Neuts % (Manual) Lymphocytes % (Manual) Monocytes % (Manual) Metamyelocytes % (Man) Myelocytes % (Man) Abs Neuts (Manual) Differential Comment Platelet Estimate Platelet Morphology Ovalocytes Sodium Potassium Chloride Carbon Dioxide Anion Gap BUN Creatinine Estimated GFR POC Glucose 165 H Random Glucose Lactic Acid Calcium Magnesium Troponin I Urine Color Urine Clarity Urine pH Ur Specific [place] Urine Protein Urine Glucose (UA) Urine Ketones Urine Occult Blood Urine Nitrate Urine Bilirubin Urine Urobilinogen Ur Leukocyte Esterase Urine RBC Urine WBC Urine WBC Clumps Ur Squamous Epith Cells Amorphous Sediment Urine Bacteria Micro UA Comment Urine Culture Comments Urine Comment MTS Gel Crossmatch Microbiology 03/06/18 18:00 Catheterized Urine Urine Culture - Final S. aureus MRSA Caitlyn tropicalis 03/08/18 05:10 Sputum - Endotracheal Gram Stain - Final 03/08/18 05:10 Sputum - Endotracheal Sputum Culture - Preliminary Staphylococcus species 03/06/18 19:05 Blood - Peripheral Aerobic Blood Culture - Preliminary No growth in 3 days 03/06/18 19:05 Blood - Peripheral Anaerobic Blood Culture - Preliminary No growth in 3 days 03/06/18 18:45 Blood - Peripheral Aerobic Blood Culture - Preliminary Staphylococcus coag negative 03/06/18 18:45 Blood - Peripheral Anaerobic Blood Culture - Preliminary No growth in 3 days - Imaging Impressions Chest X-Ray 03/09/18 06:00 CONCLUSION: Mild bilateral lower lung opacity unchanged. 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 - Malignant neoplasm of larynx, unspecified Status: Acute (3) Supraglottic stenosis Code(s): J38.6 - Stenosis of larynx Status: Acute (4) Status post radiation therapy Code(s): Z92.3 - Personal history of irradiation Status: Acute (5) Barretts esophagus Code(s): K22.70 - Rendon's esophagus without dysplasia Status: Acute (6) Dyspnea Code(s): R06.00 - Dyspnea, unspecified Status: Acute (7) Septic shock Code(s): A41.9 - Sepsis, unspecified organism; R65.21 - Severe sepsis with septic shock Status: Resolved (8) Aspiration pneumonia Code(s): J69.0 - Pneumonitis due to inhalation of food and vomit Status: Acute - Plan 1. Leave Vent on CPAP/PSV , FIo2 30 %. 2. Tracheostomy per Dr Kraus 3. Continue Duo nebs q6h 4. PT PTT CBC,BMP in am 5. Continue solumedrol 40 mg IV Q8H 6. Reduce sedation. 7. Tube feeds at 60 CC. (8) Aspiration pneumonia Qualifiers: Aspiration pneumonia type: unspecified Laterality: unspecified laterality Lung location: unspecified part of lung Qualified Code(s): J69.0 - Pneumonitis due to inhalation of food and vomit
[2018-03-09] MEDS: Vancomycin Inj 1,500 MG in Sodium Chlor 0.9% Inj 500 ML IV.SIG SCH (20:50)
[2018-03-10] MEDS: Oral Hygiene Kit OROPHARYNG SCH ×4 (00:42→16:52)
[2018-03-10] MEDS: Hypromellose 0.3% Opth Gel 10 GM Bottle EACH EYE SCH ×3 (00:42→17:10)
[2018-03-10] MEDS: metroNIDAZOLE 500 MG Tablet PO SCH ×4 (00:42→17:09)
[2018-03-10] MEDS: Insulin NovoLOG Aspart Correctional Sugar Inj SQ SCH ×4 (00:43→18:57)
[2018-03-10 01:37] LABS: Calcium 8.2 mg/dL (8.5-10.1); Carbon Dioxide 26.7 meq/L (21.0-32.0); Magnesium 2.1 mg/dL (1.5-2.5); Phosphorus 3.1 mg/dL (2.5-4.9); Potassium 4.2 meq/L (3.5-5.1)
[2018-03-10 03:10] LABS: Hematocrit 22.5 % (35.0-46.0); Hemoglobin 7.6 gm/dL (11.6-15.3); Mean Corpuscular HGB Conc 33.8 % (32.0-36.0); Mean Corpuscular Hemoglobin 30.4 pg (27.0-34.0); Mean Corpuscular Volume 89.7 fL (80.0-100.0); Mean Platelet Volume 10.7 fL (7.0-11.0); Platelet Count 296 th/mm3 (150-450); Red Cell Distribution Width 18.4 % (11.6-17.2); White Blood Count 16.1 th/mm3 (4.0-11.0)
[2018-03-10] MEDS: Chlorhexidine Gluconate 2% 1 Pack (2 Cloths) TOPICAL SCH (04:07)
[2018-03-10 04:13] LABS: Lymphocytes 12 % (9-44); Metamyelocytes 2 % (0-1); Monocytes 9 % (0-8)
[2018-03-10 04:14] LABS: Platelet Estimate Normal (Normal)
[2018-03-10] MEDS: Levothyroxine 100 MCG Tablet NG/OG SCH (06:03)
[2018-03-10] MEDS: MethylPREDNISolone Sod Succinate Inj 40 MG/ML Vial IV.PUSH SCH ×3 (06:03→20:49)
--- NOTE | 2018-03-10 06:45 | XR ---
EXAM DATE: 03/10/2018 5:32 AM EDT AGE/SEX: 73 years / Female INDICATIONS: Shortness of breath, possible pulmonary disease. CLINICAL DATA: This is the patient's subsequent encounter. Patient reports that signs and symptoms h ave been present for 2 weeks and indicates a pain score of Nonresponsive. MEDICAL/SURGICAL HISTORY: Chronic obstructive pulmonary disease. Hypothyroidism. Gastroesopha geal reflux disease. Cholecystectomy. Appendectomy. Hernia repair. COMPARISON: [facility] [place]ST 1V SINGLE AP, 03/09/2018. . FINDINGS: A single AP view of the chest demonstrates persistent bibasilar atelectatic changes. Life-support tub es are stable in position. Heart size is normal. CONCLUSION: Stable bibasilar atelectatic changes. Electronically signed by: Reza Khan MD 03/10/2018 6:44 AM EDT
[2018-03-10] MEDS: Heparin - SQ 10,000 UNITS/ML Vial SQ SCH (08:00)
[2018-03-10] MEDS: Senna/Docusate Sodium 8.6/50 MG Tablet PO SCH ×2 (08:04→20:47)
[2018-03-10] MEDS: Ascorbic Acid 500 MG Tablet G-TUBE SCH ×2 (08:05→20:46)
[2018-03-10] MEDS: Pantoprazole Inj 40 MG Vial IV.PUSH SCH (08:05)
[2018-03-10] MEDS: Chlorhexidine 0.12% Oral Kit 15 ML UDC OROPHARYNG SCH ×2 (08:06→20:47)
[2018-03-10 11:31] LABS: Calcium 8.5 mg/dL (8.5-10.1); Potassium 4.2 meq/L (3.5-5.1)
[2018-03-10] MEDS ORDERED: Cathflo Activase Inj 2 MG Vial I-CATHETER ONE (12:00)
--- NOTE | 2018-03-10 14:12 | MB ---
cc: Tarik Kraus MD DATE: 03/10/2018 CHIEF COMPLAINT: Acute respiratory failure and need for tracheostomy. 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 She has been treated with a Medical Oncology and Radiation Oncology with no evidence of residual disease. She has had several admissions at [facility]. These were due to initial dysphagia for which she underwent GJ tube placement and she has been on dependent nutritional feeds via a GJ tube. She did recently developed severe acute respiratory failure requiring intubation on 02/22/2018 with concern for aspiration. She had further workup and evaluation by ENT with a laryngoscope finding scarring and she was discharged with recurrence and returned to the hospital due to recurrence of initial aspiration and acute respiratory failure. She remains on a prolonged ventilatory treatment and has been unable to wean from the ventilator. Therefore, Surgery was consulted for a tracheostomy. PAST MEDICAL HISTORY: Arthritis, Rendon's esophagus, reflux, hypothyroidism, skin cancer, squamous cell cancer of the larynx, squamous cell cancer of the supraglottic. PAST SURGICAL HISTORY: Gastrojejunal tube laparoscopically, cholecystectomy, EGD, hernia repair, tonsillectomy. FAMILY HISTORY: Mother with breast cancer. Father with coronary artery disease. SOCIAL HISTORY: Smoking 30 pack years. Denies ETOH or IVDA. ALLERGIES: EPINEPHRINE, PENICILLIN G, PEANUTS, LEGUMES, SOY. MEDICATIONS: See EMR. REVIEW OF SYSTEMS: GENERAL: Denies fevers or chills. HEENT: Complains of secretions. Denies eye pain or ear pain. NECK: Denies swelling. Complaining of scarring and pain. LUNGS: Complaining of cough, aspiration. CARDIAC: Denies palpitations, chest pain. ABDOMEN: Denies nausea or vomiting. GENITOURINARY: Denies dysuria or hematuria. ENDOCRINE: Denies polyuria or polydipsia. INTEGUMENT: Denies any new masses or lesions of the neck. PHYSICAL EXAMINATION: GENERAL: The patient in no acute distress. VITAL SIGNS: Temperature 98.2, pulse 58, respirations 21, O2 saturation 100%. HEENT: Pupils equal, round, reactive. NECK: Thickening with induration. No infection. ET tube in place. LUNGS: Coarse bilaterally. Bilateral expansion. HEART: S1, S2. Regular. ABDOMEN: Soft, nontender, nondistended. G-tube clean, dry and intact. EXTREMITIES: Warm and well perfused. INTEGUMENT: No obvious masses or lesions. PSYCHIATRIC: Appropriate mood, appropriate judgment. LABORATORY AND DIAGNOSTIC DATA: WBC 16.1, hemoglobin 7.6, hematocrit 22.5, platelets 296. Sodium 139, potassium 4.2, chloride 102, BUN 43, creatinine 1.1, glucose 128. IMAGING STUDIES: Chest x-ray today reviewed by myself: Bibasilar atelectatic changes. Normal cardiac size. ASSESSMENT: The patient is a 73-year-old female with squamous cell supraglottic cancer, status post chemoradiation, currently with acute respiratory failure, prolonged ventilatory support, in need of tracheostomy. PLAN: After a full clinical, radiologic and laboratory workup, the patient with above-named issues. At this point, the patient needs tracheostomy and surgical airway. Discussed with the patient and Dr. Yates with [facility] for likely plan for procedure tomorrow, Saturday. Discussed with the patient risks, benefits, alternatives. She states understanding and agrees and would like to proceed. MD JUAN CARLOS Esquivel/KATHIA , 01:25 PM , 02:11 PM
--- NOTE | 2018-03-10 19:09 | P.PN ---
Subjective Interval history: Awake and Responds to commands. On CPAP and FIO2 30 %. Will go for Tracheostomy in am Physical Exam Vital signs: Vital Signs 03/09/18 20:00 03/09/18 20:06 03/09/18 21:00 Temperature 98.6 F Pulse Rate 66 54 L 56 L Respiratory Rate 26 H 20 32 H Blood Pressure 122/58 L 129/57 L Pulse Oximetry 100 100 03/09/18 22:00 03/09/18 23:00 03/10/18 00:00 Temperature 98.9 F Pulse Rate 55 L 74 57 L Respiratory Rate 26 H 25 H 18 Blood Pressure 125/61 120/59 L 124/61 Pulse Oximetry 100 100 100 03/10/18 00:23 03/10/18 01:00 03/10/18 02:00 Temperature Pulse Rate 66 57 L 54 L Respiratory Rate 22 25 H 20 Blood Pressure 125/60 138/60 Pulse Oximetry 100 99 99 03/10/18 03:00 03/10/18 03:30 03/10/18 03:38 Temperature Pulse Rate 54 L 53 L Respiratory Rate 18 19 Blood Pressure 129/60 127/55 L Pulse Oximetry 100 03/10/18 03:45 03/10/18 04:00 03/10/18 04:14 Temperature 98.6 F Pulse Rate 55 L 58 L Respiratory Rate 27 H 28 H 22 Blood Pressure 141/66 H 129/58 L Pulse Oximetry 100 100 100 03/10/18 04:15 03/10/18 04:30 03/10/18 04:45 Temperature Pulse Rate 54 L 56 L 59 L Respiratory Rate 26 H 22 32 H Blood Pressure 129/58 L 125/59 L 123/60 Pulse Oximetry 100 100 100 03/10/18 05:00 03/10/18 05:15 03/10/18 05:30 Temperature Pulse Rate 56 L 57 L 82 Respiratory Rate 39 H 33 H 32 H Blood Pressure 132/60 120/59 L 108/68 Pulse Oximetry 100 100 100 03/10/18 05:45 03/10/18 06:00 03/10/18 06:15 Temperature Pulse Rate 52 L 53 L 64 Respiratory Rate 16 17 26 H Blood Pressure 135/79 137/83 142/64 H Pulse Oximetry 100 100 100 03/10/18 06:30 03/10/18 06:45 03/10/18 07:00 Temperature Pulse Rate 65 55 L 54 L Respiratory Rate 11 L 27 H 23 Blood Pressure 143/63 H 133/62 Pulse Oximetry 100 100 100 03/10/18 07:01 03/10/18 07:15 03/10/18 07:30 Temperature Pulse Rate 53 L 53 L 53 L Respiratory Rate 36 H 37 H 31 H Blood Pressure 143/65 H 144/66 H 141/67 H Pulse Oximetry 100 100 100 03/10/18 07:35 03/10/18 07:37 03/10/18 08:00 Temperature 98.6 F Pulse Rate 69 71 Respiratory Rate 15 15 38 H Blood Pressure 152/87 H Pulse Oximetry 100 100 03/10/18 08:01 03/10/18 08:15 03/10/18 08:30 Temperature Pulse Rate 62 55 L 53 L Respiratory Rate 32 H 30 H 31 H Blood Pressure 152/87 H 134/61 132/59 L Pulse Oximetry 100 100 99 03/10/18 08:45 03/10/18 09:00 03/10/18 09:16 Temperature Pulse Rate 52 L 52 L 51 L Respiratory Rate 32 H 27 H 27 H Blood Pressure 144/64 H 144/66 H 147/65 H Pulse Oximetry 100 100 100 03/10/18 09:31 03/10/18 09:45 03/10/18 10:00 Temperature Pulse Rate 52 L 53 L 51 L Respiratory Rate 30 H 22 26 H Blood Pressure 149/75 H 143/65 H 139/64 Pulse Oximetry 99 100 100 03/10/18 10:15 03/10/18 10:30 03/10/18 10:45 Temperature Pulse Rate 51 L 58 L 51 L Respiratory Rate 30 H 21 34 H Blood Pressure 142/64 H 144/63 H 137/63 Pulse Oximetry 100 100 100 03/10/18 11:00 03/10/18 11:15 03/10/18 11:23 Temperature Pulse Rate 50 L 51 L 52 L Respiratory Rate 30 H 32 H 19 Blood Pressure 145/64 H 136/57 L Pulse Oximetry 100 100 100 03/10/18 11:30 03/10/18 11:45 03/10/18 12:00 Temperature 98.3 F Pulse Rate 55 L 52 L 53 L Respiratory Rate 31 H 24 26 H Blood Pressure 133/61 140/61 127/58 L Pulse Oximetry 100 99 99 03/10/18 12:01 03/10/18 12:16 03/10/18 12:31 Temperature Pulse Rate 53 L 53 L 55 L Respiratory Rate 26 H 36 H 25 H Blood Pressure 127/58 L 138/64 127/63 Pulse Oximetry 99 99 100 03/10/18 12:46 03/10/18 13:00 03/10/18 13:15 Temperature Pulse Rate 58 L 74 69 Respiratory Rate 28 H 33 H 29 H Blood Pressure 142/66 H 136/63 121/57 L Pulse Oximetry 100 99 99 03/10/18 13:30 03/10/18 13:45 03/10/18 14:00 Temperature Pulse Rate 64 61 62 Respiratory Rate 32 H 33 H 32 H Blood Pressure 122/58 L 127/59 L 116/56 L Pulse Oximetry 99 99 99 03/10/18 14:15 03/10/18 14:35 03/10/18 14:45 Temperature Pulse Rate 59 L 60 61 Respiratory Rate 29 H 30 H 33 H Blood Pressure 115/58 L 126/58 L 113/58 L Pulse Oximetry 99 100 99 03/10/18 15:00 03/10/18 15:15 03/10/18 15:30 Temperature Pulse Rate 59 L 60 72 Respiratory Rate 30 H 31 H 34 H Blood Pressure 115/56 L 112/53 L 116/64 Pulse Oximetry 99 99 100 03/10/18 15:45 03/10/18 15:46 03/10/18 15:48 Temperature Pulse Rate 59 L 60 Respiratory Rate 28 H 29 H 28 H Blood Pressure 108/58 L Pulse Oximetry 100 100 03/10/18 16:00 03/10/18 16:15 03/10/18 16:30 Temperature 99.8 F H Pulse Rate 58 L 60 57 L Respiratory Rate 23 Blood Pressure 113/59 L 108/54 L 104/52 L Pulse Oximetry 100 100 100 03/10/18 16:45 03/10/18 17:00 03/10/18 17:16 Temperature Pulse Rate 59 L 56 L 58 L Respiratory Rate 30 H 29 H Blood Pressure 103/50 L 102/51 L 119/53 L Pulse Oximetry 100 100 100 03/10/18 17:31 03/10/18 17:45 03/10/18 18:00 Temperature Pulse Rate 59 L 56 L 66 Respiratory Rate Blood Pressure 117/55 L 111/55 L Pulse Oximetry 99 99 98 03/10/18 18:01 03/10/18 18:15 03/10/18 18:30 Temperature Pulse Rate 60 54 L 87 Respiratory Rate Blood Pressure 122/58 L 117/56 L 129/63 Pulse Oximetry 100 100 100 03/10/18 18:45 Temperature Pulse Rate 59 L Respiratory Rate Blood Pressure 125/59 L Pulse Oximetry 100 Intake & Output 03/10/18 03/10/18 03/11/18 06:59 18:59 06:59 Intake Total 865 / 865 250 / 250 Output Total 935 / 935 Balance 865 / 865 -685 / -685 Intake: IV 865 / 865 250 / 250 Maxipime Inj 2,000 MG In NS Inj 100 / 100 100 ML @ 200 mls/hr IV.SIG Q12H [facility] Rx#:[id number] Levophed-Dextrose 4 mg/250 ml 250 / 250 250 / 250 Drip 4 mg In 250 ml @ 2 MCG/MIN 7.5 mls/hr IV.SIG TITRATE PRN Rx#:[id number] Vancomycin Inj 1,500 MG In NS 515 / 515 Inj 500 ML @ 250 mls/hr IV.SIG Q24H [facility] Rx#:[id number] Output: Urine Amount (Catheter) / 5 Indwelling Urethral Catheter / 5 Narrative: GENERAL: Elderly W/F on vent support.Intubated SKIN: Warm and dry. HEAD: Normocephalic.Alert and responds well. EYES: No scleral icterus. No injection or drainage. NECK: Supple, trachea midline. No JVD or lymphadenopathy. CARDIOVASCULAR: Irregular rate and rhythm without murmurs, gallops, or rubs. RESPIRATORY: Breath sounds equal bilaterally. Occ Crackles at bases. and wheeze. GASTROINTESTINAL: Abdomen soft, non-tender, nondistended. MUSCULOSKELETAL: No cyanosis, or edema. BACK: Nontender without obvious deformity. No CVA tenderness. - Urinary Catheter Management Indwelling Urethral Catheter Cath placed during this visit: yes Reason for continuing: Hourly intake/output Insertion date: 03/06/18 Insertion time: 18:00 Results - Labs CBC & Chem 7: 03/10/18 01:57 03/10/18 08:21 Laboratory Results - last 24 hr 03/08/18 03/10/18 03/10/18 13:50 00:16 00:50 WBC RBC Hgb Hct MCV MCH MCHC RDW Plt Count MPV Prelim Diff (Auto) WBC Differential Seg Neuts % (Manual) Band Neuts % (Manual) Lymphocytes % (Manual) Monocytes % (Manual) Basophils % (Manual) Metamyelocytes % (Man) Abs Neuts (Manual) Differential Comment Platelet Estimate Platelet Morphology Sodium 139 Potassium 4.2 Chloride 104 Carbon Dioxide 26.7 Anion Gap 8 BUN 43 H Creatinine 1.18 H Estimated GFR 45 L POC Glucose 134 H Random Glucose 114 H Calcium 8.2 L Phosphorus 3.1 Magnesium 2.1 Blood Type B Positive Antibody Screen Negative MTS Gel Crossmatch See Detail 03/10/18 03/10/18 03/10/18 01:57 06:05 08:21 WBC 16.1 H RBC 2.50 L Hgb 7.6 L Hct 22.5 L MCV 89.7 MCH 30.4 MCHC 33.8 RDW 18.4 H Plt Count 296 MPV 10.7 Prelim Diff (Auto) Manual diff required WBC Differential Manual diff final Seg Neuts % (Manual) 67 Band Neuts % (Manual) 9 H Lymphocytes % (Manual) 12 Monocytes % (Manual) 9 H Basophils % (Manual) 1 Metamyelocytes % (Man) 2 H Abs Neuts (Manual) 12.6 H Differential Comment . Platelet Estimate Normal Platelet Morphology Enlarged H Sodium 139 Potassium 4.2 Chloride 102 Carbon Dioxide 26.0 Anion Gap 11 BUN 43 H Creatinine 1.19 H Estimated GFR 45 L POC Glucose 138 H Random Glucose 105 Calcium 8.5 Phosphorus Magnesium Blood Type Antibody Screen MTS Gel Crossmatch 03/10/18 03/10/18 11:42 17:51 WBC RBC Hgb Hct MCV MCH MCHC RDW Plt Count MPV Prelim Diff (Auto) WBC Differential Seg Neuts % (Manual) Band Neuts % (Manual) Lymphocytes % (Manual) Monocytes % (Manual) Basophils % (Manual) Metamyelocytes % (Man) Abs Neuts (Manual) Differential Comment Platelet Estimate Platelet Morphology Sodium Potassium Chloride Carbon Dioxide Anion Gap BUN Creatinine Estimated GFR POC Glucose 128 H 120 H Random Glucose Calcium Phosphorus Magnesium Blood Type Antibody Screen MTS Gel Crossmatch Microbiology 03/06/18 18:45 Blood - Peripheral Aerobic Blood Culture - Final Staphylococcus hominis-hominis 03/06/18 18:45 Blood - Peripheral Anaerobic Blood Culture - Preliminary No growth in 4 days 03/09/18 11:15 Blood - Peripheral Aerobic Blood Culture - Preliminary No growth in 1 day 03/09/18 11:15 Blood - Peripheral Anaerobic Blood Culture - Preliminary No growth in 1 day 03/09/18 11:07 Blood - Peripheral Aerobic Blood Culture - Preliminary No growth in 1 day 03/09/18 11:07 Blood - Peripheral Anaerobic Blood Culture - Preliminary No growth in 1 day 03/06/18 19:05 Blood - Peripheral Aerobic Blood Culture - Preliminary No growth in 4 days 03/06/18 19:05 Blood - Peripheral Anaerobic Blood Culture - Preliminary No growth in 4 days 03/08/18 05:10 Sputum - Endotracheal Gram Stain - Final 03/08/18 05:10 Sputum - Endotracheal Sputum Culture - Final S. aureus MRSA - Imaging Impressions Chest X-Ray 03/10/18 06:00 CONCLUSION: Stable bibasilar atelectatic changes. 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 Leave Cont on CPAP /PSV 5/12 FIO2 30% 2. Tracheostomy per Dr Kraus in am 3. Continue Duo nebs q6h 4. CXR CBC,BMP in am 5. Continue solumedrol 40 mg IV BID 6. Reduce sedation. 7. Tube feeds at 60 CC. (7) Aspiration pneumonia Qualifiers: Aspiration pneumonia type: unspecified Laterality: unspecified laterality Lung location: unspecified part of lung Qualified Code(s): J69.0 - Pneumonitis due to inhalation of food and vomit
--- NOTE | 2018-03-10 20:30 | P.PNCC ---
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 Hooper and Dr. Pineda (completed March 2015) with followup imaging negative for residual disease (05/2015, 09/2015). She was recently admitted to [facility] hospitalist service on after she presented with anemia with hemoglobin of 6.3, dysphagia and failure to thrive. She previously had G/J tube that became dislodged in May and she had been drinking nutritional shakes at home but had progressive difficulty with swallowing and developed cachexia. Modified barium swallow confirmed aspiration and she underwent laparoscopic GJ placement [address] Kraus. She had been n.p.o. and receiving continuous jejunal tube feeds when she developed severe respiratory distress and hypoxia requiring intubation 02/22/18. She had obvious evidence of aspiration on intubation. CT neck showed no e/o laryngeal mass. She was evaluated by ENT and underwent laryngoscopy that showed no evidence of disease recurrence and findings were consistent with radiation induced scarring. She was extubated 02/25. [facility]. She again presented to [facility] with respiratory failure. Reportedly sats were in the 50s upon their arrival. She was intubated at the scene. Reportedly a large amount of secretions suctioned out post intubation. White blood cell count was 14. She was hypotensive at [place] where she was administered 2 L normal saline bolus. ED physician then placed right femoral central line after unsuccessful placement right IJ central line. Levophed drip was started. Her son states he is a physician's assistant professor of music in the field of critical care and expresses frustration with recurrent respiratory failure. States she had jejunal tube feeds running at goal but had not taken anything p.o. Requests ENT reconsultation for recommendations for tracheostomy. 03/08: Afebrile. Resting in bed comfortably in no acute distress. Nods head appropriately to questions. Moves all 4 extremities spontaneously. Tube feeds currently at 40 cc an hour. Remains on norepinephrine 8 mg/min. Discussed with Alireza Whitten/healthcare proxy and son. Requesting tracheostomy. He will be here this afternoon discussed with mother and will consult once verified consent. 03/09: Afebrile. Remains on norepinephrine drip at 7 mcg/min. Consent for percutaneous tracheostomy. Consult placed. Appears comfortable. Received 1 unit PRBCs overnight for a total of 2 since admission. Repeat hemoglobin pending. Subjective: 03/10: Resting comfortably in bed. Previously cheerful in room. Requesting glasses as she is severely nearsighted and eardrops for her right ear. These been ordered and addressed. Plan for percutaneous tracheostomy at noon with Dr. Kraus 03/11 n.p.o. after midnight except for medications Objective Vital Signs / I&O: Vital Signs 03/09/18 21:00 03/09/18 22:00 03/09/18 23:00 Temperature Pulse Rate 56 L 55 L 74 Respiratory Rate 32 H 26 H 25 H Blood Pressure 129/57 L 125/61 120/59 L Pulse Oximetry 100 100 100 03/10/18 00:00 03/10/18 00:23 03/10/18 01:00 Temperature 98.9 F Pulse Rate 57 L 66 57 L Respiratory Rate 18 22 25 H Blood Pressure 124/61 125/60 Pulse Oximetry 100 100 99 03/10/18 02:00 03/10/18 03:00 03/10/18 03:30 Temperature Pulse Rate 54 L 54 L Respiratory Rate 20 18 Blood Pressure 138/60 129/60 127/55 L Pulse Oximetry 99 100 03/10/18 03:38 03/10/18 03:45 03/10/18 04:00 Temperature 98.6 F Pulse Rate 53 L 55 L 58 L Respiratory Rate 19 27 H 28 H Blood Pressure 141/66 H 129/58 L Pulse Oximetry 100 100 03/10/18 04:14 03/10/18 04:15 03/10/18 04:30 Temperature Pulse Rate 54 L 56 L Respiratory Rate 22 26 H 22 Blood Pressure 129/58 L 125/59 L Pulse Oximetry 100 100 100 03/10/18 04:45 03/10/18 05:00 03/10/18 05:15 Temperature Pulse Rate 59 L 56 L 57 L Respiratory Rate 32 H 39 H 33 H Blood Pressure 123/60 132/60 120/59 L Pulse Oximetry 100 100 100 03/10/18 05:30 03/10/18 05:45 03/10/18 06:00 Temperature Pulse Rate 82 52 L 53 L Respiratory Rate 32 H 16 17 Blood Pressure 108/68 135/79 137/83 Pulse Oximetry 100 100 100 03/10/18 06:15 03/10/18 06:30 03/10/18 06:45 Temperature Pulse Rate 64 65 55 L Respiratory Rate 26 H 11 L 27 H Blood Pressure 142/64 H 143/63 H 133/62 Pulse Oximetry 100 100 100 03/10/18 07:00 03/10/18 07:01 03/10/18 07:15 Temperature Pulse Rate 54 L 53 L 53 L Respiratory Rate 23 36 H 37 H Blood Pressure 143/65 H 144/66 H Pulse Oximetry 100 100 100 03/10/18 07:30 03/10/18 07:35 03/10/18 07:37 Temperature Pulse Rate 53 L 69 Respiratory Rate 31 H 15 15 Blood Pressure 141/67 H Pulse Oximetry 100 100 03/10/18 08:00 03/10/18 08:01 03/10/18 08:15 Temperature 98.6 F Pulse Rate 71 62 55 L Respiratory Rate 38 H 32 H 30 H Blood Pressure 152/87 H 152/87 H 134/61 Pulse Oximetry 100 100 100 03/10/18 08:30 03/10/18 08:45 03/10/18 09:00 Temperature Pulse Rate 53 L 52 L 52 L Respiratory Rate 31 H 32 H 27 H Blood Pressure 132/59 L 144/64 H 144/66 H Pulse Oximetry 99 100 100 03/10/18 09:16 03/10/18 09:31 03/10/18 09:45 Temperature Pulse Rate 51 L 52 L 53 L Respiratory Rate 27 H 30 H 22 Blood Pressure 147/65 H 149/75 H 143/65 H Pulse Oximetry 100 99 100 03/10/18 10:00 03/10/18 10:15 03/10/18 10:30 Temperature Pulse Rate 51 L 51 L 58 L Respiratory Rate 26 H 30 H 21 Blood Pressure 139/64 142/64 H 144/63 H Pulse Oximetry 100 100 100 03/10/18 10:45 03/10/18 11:00 03/10/18 11:15 Temperature Pulse Rate 51 L 50 L 51 L Respiratory Rate 34 H 30 H 32 H Blood Pressure 137/63 145/64 H 136/57 L Pulse Oximetry 100 100 100 03/10/18 11:23 03/10/18 11:30 03/10/18 11:45 Temperature Pulse Rate 52 L 55 L 52 L Respiratory Rate 19 31 H 24 Blood Pressure 133/61 140/61 Pulse Oximetry 100 100 99 03/10/18 12:00 03/10/18 12:01 03/10/18 12:16 Temperature 98.3 F Pulse Rate 53 L 53 L 53 L Respiratory Rate 26 H 26 H 36 H Blood Pressure 127/58 L 127/58 L 138/64 Pulse Oximetry 99 99 99 03/10/18 12:31 03/10/18 12:46 03/10/18 13:00 Temperature Pulse Rate 55 L 58 L 74 Respiratory Rate 25 H 28 H 33 H Blood Pressure 127/63 142/66 H 136/63 Pulse Oximetry 100 100 99 03/10/18 13:15 03/10/18 13:30 03/10/18 13:45 Temperature Pulse Rate 69 64 61 Respiratory Rate 29 H 32 H 33 H Blood Pressure 121/57 L 122/58 L 127/59 L Pulse Oximetry 99 99 99 03/10/18 14:00 03/10/18 14:15 03/10/18 14:35 Temperature Pulse Rate 62 59 L 60 Respiratory Rate 32 H 29 H 30 H Blood Pressure 116/56 L 115/58 L 126/58 L Pulse Oximetry 99 99 100 03/10/18 14:45 03/10/18 15:00 03/10/18 15:15 Temperature Pulse Rate 61 59 L 60 Respiratory Rate 33 H 30 H 31 H Blood Pressure 113/58 L 115/56 L 112/53 L Pulse Oximetry 99 99 99 03/10/18 15:30 03/10/18 15:45 03/10/18 15:46 Temperature Pulse Rate 72 59 L Respiratory Rate 34 H 28 H 29 H Blood Pressure 116/64 108/58 L Pulse Oximetry 100 100 100 03/10/18 15:48 03/10/18 16:00 03/10/18 16:15 Temperature 99.8 F H Pulse Rate 60 58 L 60 Respiratory Rate 28 H 23 Blood Pressure 113/59 L 108/54 L Pulse Oximetry 100 100 03/10/18 16:30 03/10/18 16:45 03/10/18 17:00 Temperature Pulse Rate 57 L 59 L 56 L Respiratory Rate 30 H Blood Pressure 104/52 L 103/50 L 102/51 L Pulse Oximetry 100 100 100 03/10/18 17:16 03/10/18 17:31 03/10/18 17:45 Temperature Pulse Rate 58 L 59 L 56 L Respiratory Rate 29 H Blood Pressure 119/53 L 117/55 L 111/55 L Pulse Oximetry 100 99 99 03/10/18 18:00 03/10/18 18:01 03/10/18 18:15 Temperature Pulse Rate 66 60 54 L Respiratory Rate Blood Pressure 122/58 L 117/56 L Pulse Oximetry 98 100 100 03/10/18 18:30 03/10/18 18:45 03/10/18 20:10 Temperature Pulse Rate 87 59 L 53 L Respiratory Rate 23 Blood Pressure 129/63 125/59 L Pulse Oximetry 100 100 100 Intake & Output 03/10/18 03/10/18 03/11/18 06:59 18:59 06:59 Intake Total 865 / 865 250 / 250 Output Total 935 / 935 Balance 865 / 865 -685 / -685 Intake: IV 865 / 865 250 / 250 Maxipime Inj 2,000 MG In NS Inj 100 / 100 100 ML @ 200 mls/hr IV.SIG Q12H [facility] Rx#:[id number] Levophed-Dextrose 4 mg/250 ml 250 / 250 250 / 250 Drip 4 mg In 250 ml @ 2 MCG/MIN 7.5 mls/hr IV.SIG TITRATE PRN Rx#:[id number] Vancomycin Inj 1,500 MG In NS 515 / 515 Inj 500 ML @ 250 mls/hr IV.SIG Q24H [facility] Rx#:[id number] Output: Urine Amount (Catheter) 935 / 935 Indwelling Urethral Catheter 935 / 935 Result Diagrams: 03/10/18 01:57 03/10/18 08:21 Other Results: Microbiology 03/06/18 18:45 Blood - Peripheral Aerobic Blood Culture - Final Staphylococcus hominis-hominis 03/06/18 18:45 Blood - Peripheral Anaerobic Blood Culture - Preliminary No growth in 4 days 03/09/18 11:15 Blood - Peripheral Aerobic Blood Culture - Preliminary No growth in 1 day 03/09/18 11:15 Blood - Peripheral Anaerobic Blood Culture - Preliminary No growth in 1 day 03/09/18 11:07 Blood - Peripheral Aerobic Blood Culture - Preliminary No growth in 1 day 03/09/18 11:07 Blood - Peripheral Anaerobic Blood Culture - Preliminary No growth in 1 day 03/06/18 19:05 Blood - Peripheral Aerobic Blood Culture - Preliminary No growth in 4 days 03/06/18 19:05 Blood - Peripheral Anaerobic Blood Culture - Preliminary No growth in 4 days 03/08/18 05:10 Sputum - Endotracheal Gram Stain - Final 03/08/18 05:10 Sputum - Endotracheal Sputum Culture - Final S. aureus MRSA 03/06/18 18:00 Catheterized Urine Urine Culture - Final S. aureus MRSA Caitlyn tropicalis Imaging: ITS Impressions Chest X-Ray 03/10/18 06:00 CONCLUSION: Stable bibasilar atelectatic changes. Objective Remarks: GENERAL: 73-year-old female currently resting in bed in no acute distress orotracheally intubated SKIN: Warm and dry. HEAD: Atraumatic. Normocephalic. EYES: Pupils equal and round. No scleral icterus. No injection or drainage. ENT: No nasal bleeding or discharge. Mucous membranes pink and moist. Orotracheally intubated NECK: Trachea midline. No JVD. Left IJ CVL is clean dry and intact. CARDIOVASCULAR: Bradycardic, RR. S1, S2. No S4 without murmur RESPIRATORY: Few scattered crackles appreciated bases bilaterally. No wheezes. Breath sounds equal bilaterally. GASTROINTESTINAL: Abdomen soft, non-tender, nondistended. Hepatic and splenic margins not palpable. MUSCULOSKELETAL: Extremities with trace bilateral upper extremity edema. No obvious deformities. NEUROLOGICAL: Awake and alert. Following commands on the ventilator. Moves all 4 extremities spontaneously. Assessment and Plan - Assessment and Plan Plan: NEURO/PSYCH: Adjustment disorder with depression Allergic rhinitis Fentanyl 50 mcg every hour/Versed 2 mg IV every 15 minutes bolus as needed for sedation/analgesia while intubated Target RASS 0 Continue escitalopram 20 mg daily/home medication via G-tube Acetaminophen 650 mg every 6 hours by G-tube for fever Continue cetirizine 10 mg daily for allergic rhinitis RESP: Acute respiratory failure 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 Noted initial CXR with pulm edema pattern, may be secondary to negative pressure pulm edema (exacerbated by low oncotic pressure) RUL spiculated lung mass on CT chest -follow-up with Dr. Martin [facility] /1/5/40 Ventilator bundle Albuterol/ipratropium aerosols every 4 hours with albuterol aerosols every 2 hours as needed for dyspnea Methylprednisolone succinate 40 mg IV every 8 hours Spontaneous breathing trial/CPAP trials as clinically indicated Dr. Kunz discussed with son. Agreed with tracheostomy option see his note. Dr. Martin/pulmonary following CV: Hypotension -possibly sepsis with elevated pro-calcitonin Chronic systolic heart failure ejection fraction 35% Received 2 L NS bolus in ED. Currently on norepinephrine drip at 8 mcg/min to maintain >65. 2D echo 02/23/18 ejection fraction 35%, anterior septal hypokinesis. Biatrial dilation. Serial troponins/EKG essentially negative Lactic acid normal. GI: Severe pharyngeal phase dysphagia -diagnosed by modified barium swallow 02/05/18 Proximal esophageal Stricture, radiation induced Rendon's esophagus GERD Severe chronic protein energy malnutrition Hypoalbuminemia G/J tube in place flush with 60 cc free water every 8 hours Vital 1.5 55/hr per nutrition recs via jejunostomy. G tube to gravity. N.p.o. after midnight Pt known to Dr. Aly, with esophageal dilation in the past. Have been planning outpatient esophageal dilation. Plan outpatient/upper esophageal stricture dilatation if patient agrees within the next several days/weeks. Pantoprazole for GI prophylaxis. On omeprazole 20 mg daily at home Docusate sodium/senna 1 tablet twice daily for bowel regimen FEN/RENAL: Acute kidney injury Monitor intake and output. Monitor electrolytes and replace as indicated per electrolyte replacement protocol Creatinine currently 1.2 and stable. ID: MRSA/Caitlyn tropicalis UTI Aspiration pneumonitis/pneumonia Will cover with cefepime 2 g IV every 8 hours day #3. Metronidazole 500 mg every 6 hours day #2 to cover for anaerobic coverage. Pertinent cultures Recheck blood cultures 2 03/09 no growth today 03/08 -sputum -MRSA 03/06 -blood cultures 2 -likely contaminant staph hominis- 03/06 -UA -MRSA/Caitlyn tropicalis HEME: Leukocytosis Normocytic anemia History of laryngeal cancer Followed by Dr. Pineda for followup h/o laryngeal cancer. Prior radiation and chemo completed 03/2015. Transfuse 1 unit PRBCs today. And 1 unit PRBCs overnight for a total of 2 recheck in a.m. ENDO: Hypothyroidism Sliding scale insulin with insulin aspart with Accu-Cheks every 6 hours to maintain glycemic Continue levothyroxine 100 mcg by tube daily PROPH: SCDs for DVT prophylaxis. Heparin subcu pantoprazole for stress ulcer prophylaxis and history of GERD. ACCESS: Left IJ CVL day #4 placed 03/07 Level 2 follow-up
[2018-03-10] MEDS: Vancomycin Inj 1,500 MG in Sodium Chlor 0.9% Inj 500 ML IV.SIG SCH (20:46)
[2018-03-11 00:30] LABS: Baso # (Auto) 0.3 th/mm3 (0.0-0.2); Baso % (Auto) 4.6 % (0.0-2.0); Eos % (Auto) 0.1 % (0.0-4.0); Hemoglobin 7.2 gm/dL (11.6-15.3); Lymph # (Auto) 1.6 th/mm3 (1.0-4.8); Lymph % (Auto) 22.8 % (9.0-44.0); Mean Corpuscular HGB Conc 35.5 % (32.0-36.0); Mean Corpuscular Hemoglobin 31.7 pg (27.0-34.0); Mean Corpuscular Volume 89.3 fL (80.0-100.0); Mean Platelet Volume 10.4 fL (7.0-11.0); Mono % (Auto) 0.1 % (0.0-8.0); Neut # (Auto) 5.2 th/mm3 (1.8-7.7); Neut % (Auto) 72.4 % (16.0-70.0); Platelet Count 198 th/mm3 (150-450); Red Blood Count 2.27 mil/mm3 (4.00-5.30); Red Cell Distribution Width 17.7 % (11.6-17.2); White Blood Count 7.1 th/mm3 (4.0-11.0)
[2018-03-11] MEDS: Carbamide Peroxide 6.5% Otic Drops 15 ML Bottle EACH EAR SCH ×3 (00:32→21:00)
[2018-03-11] MEDS: metroNIDAZOLE 500 MG Tablet PO SCH ×5 (00:32→17:07)
[2018-03-11] MEDS: Insulin NovoLOG Aspart Correctional Sugar Inj SQ SCH ×4 (00:32→19:50)
[2018-03-11] MEDS: Hypromellose 0.3% Opth Gel 10 GM Bottle EACH EYE SCH ×3 (00:33→17:00)
[2018-03-11] MEDS: Oral Hygiene Kit OROPHARYNG SCH ×4 (00:33→15:54)
[2018-03-11 00:47] LABS: Hematocrit 20.3 % (35.0-46.0)
[2018-03-11 00:52] LABS: Carbon Dioxide 27.5 meq/L (21.0-32.0); Magnesium 1.9 mg/dL (1.5-2.5); Potassium 3.6 meq/L (3.5-5.1)
[2018-03-11 02:35] LABS: Lymphocytes 6 % (9-44); Metamyelocytes 6 % (0-1); Monocytes 11 % (0-8); Myelocytes 10 % (0-0)
[2018-03-11 02:36] LABS: Ovalocytes 1+; Platelet Estimate Normal (Normal)
[2018-03-11 02:40] LABS: Platelet Morphology Normal (Normal)
[2018-03-11] MEDS: Chlorhexidine Gluconate 2% 1 Pack (2 Cloths) TOPICAL SCH (04:29)
[2018-03-11] MEDS: Levothyroxine 100 MCG Tablet NG/OG SCH (05:30)
[2018-03-11] MEDS ORDERED: Midazolam Inj 5 MG/ML 1 ML Vial IV.PUSH ONE (08:29)
[2018-03-11] MEDS ORDERED: fentaNYL Citrate Inj 100 MCG/2 ML Ampul IV.PUSH ONE (08:30)
[2018-03-11] MEDS: Pantoprazole Inj 40 MG Vial IV.PUSH SCH (08:32)
[2018-03-11] MEDS: MethylPREDNISolone Sod Succinate Inj 40 MG/ML Vial IV.PUSH SCH ×2 (08:32→21:00)
[2018-03-11] MEDS: Ascorbic Acid 500 MG Tablet G-TUBE SCH ×2 (08:32→21:00)
[2018-03-11] MEDS: Chlorhexidine 0.12% Oral Kit 15 ML UDC OROPHARYNG SCH ×2 (08:34→20:00)
[2018-03-11] MEDS: Senna/Docusate Sodium 8.6/50 MG Tablet PO SCH ×2 (08:37→21:00)
[2018-03-11] MEDS ORDERED: Potassium Chloride 20 MEQ Pwd Pkt NG/OG ONE (09:26)
[2018-03-11] MEDS ORDERED: Mag Sulf 1 gm/100 ml Premix 100 ML IV.SIG ONE (09:27)
--- NOTE | 2018-03-11 09:31 | P.PNCC ---
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 Hooper and Dr. Pineda (completed March 2015) with followup imaging negative for residual disease (05/2015, 09/2015). She was recently admitted to [facility] hospitalist service on after she presented with anemia with hemoglobin of 6.3, dysphagia and failure to thrive. She previously had G/J tube that became dislodged in May and she had been drinking nutritional shakes at home but had progressive difficulty with swallowing and developed cachexia. Modified barium swallow confirmed aspiration and she underwent laparoscopic GJ placement [address] Kraus. She had been n.p.o. and receiving continuous jejunal tube feeds when she developed severe respiratory distress and hypoxia requiring intubation 02/22/18. She had obvious evidence of aspiration on intubation. CT neck showed no e/o laryngeal mass. She was evaluated by ENT and underwent laryngoscopy that showed no evidence of disease recurrence and findings were consistent with radiation induced scarring. She was extubated 02/25. She was ultimately discharged to senior care 03/03/18. She again presented [place] [facility] with respiratory failure. Reportedly sats were in the 50s upon their arrival. She was intubated at the scene. Reportedly a large amount of secretions suctioned out post intubation. White blood cell count was 14. She was hypotensive at [place] where she was administered 2 L normal saline bolus. ED physician then placed right femoral central line after unsuccessful placement right IJ central line. Levophed drip was started. Her son states he is a physician's insurance sales assistant in the field of critical care and expresses frustration with recurrent respiratory failure. States she had jejunal tube feeds running at goal but had not taken anything p.o. Requests ENT reconsultation for recommendations for tracheostomy. 03/08: Afebrile. Resting in bed comfortably in no acute distress. Nods head appropriately to questions. Moves all 4 extremities spontaneously. Tube feeds currently at 40 cc an hour. Remains on norepinephrine 8 mg/min. Discussed with Alireza Whitten/healthcare proxy and son. Requesting tracheostomy. He will be here this afternoon discussed with mother and will consult once verified consent. 03/09: Afebrile. Remains on norepinephrine drip at 7 mcg/min. Consent for percutaneous tracheostomy. Consult placed. Appears comfortable. Received 1 unit PRBCs overnight for a total of 2 since admission. Repeat hemoglobin pending. 03/10: Resting comfortably in bed. Previously cheerful in room. Requesting glasses as she is severely nearsighted and eardrops for her right ear. These been ordered and addressed. Plan for percutaneous tracheostomy at noon with Dr. Kraus 03/11 n.p.o. after midnight except for medications Subjective: 03/11: Patient has glasses on is feeling better. Plan for percutaneous tracheostomy at noon today. No bowel movement since admission. Objective Vital Signs / I&O: Vital Signs 03/10/18 09:31 03/10/18 09:45 03/10/18 10:00 Temperature Pulse Rate 52 L 53 L 51 L Respiratory Rate 30 H 22 26 H Blood Pressure 149/75 H 143/65 H 139/64 Pulse Oximetry 99 100 100 03/10/18 10:15 03/10/18 10:30 03/10/18 10:45 Temperature Pulse Rate 51 L 58 L 51 L Respiratory Rate 30 H 21 34 H Blood Pressure 142/64 H 144/63 H 137/63 Pulse Oximetry 100 100 100 03/10/18 11:00 03/10/18 11:15 03/10/18 11:23 Temperature Pulse Rate 50 L 51 L 52 L Respiratory Rate 30 H 32 H 19 Blood Pressure 145/64 H 136/57 L Pulse Oximetry 100 100 100 03/10/18 11:30 03/10/18 11:45 03/10/18 12:00 Temperature 98.3 F Pulse Rate 55 L 52 L 53 L Respiratory Rate 31 H 24 26 H Blood Pressure 133/61 140/61 127/58 L Pulse Oximetry 100 99 99 03/10/18 12:01 03/10/18 12:16 03/10/18 12:31 Temperature Pulse Rate 53 L 53 L 55 L Respiratory Rate 26 H 36 H 25 H Blood Pressure 127/58 L 138/64 127/63 Pulse Oximetry 99 99 100 03/10/18 12:46 03/10/18 13:00 03/10/18 13:15 Temperature Pulse Rate 58 L 74 69 Respiratory Rate 28 H 33 H 29 H Blood Pressure 142/66 H 136/63 121/57 L Pulse Oximetry 100 99 99 03/10/18 13:30 03/10/18 13:45 03/10/18 14:00 Temperature Pulse Rate 64 61 62 Respiratory Rate 32 H 33 H 32 H Blood Pressure 122/58 L 127/59 L 116/56 L Pulse Oximetry 99 99 99 03/10/18 14:15 03/10/18 14:35 03/10/18 14:45 Temperature Pulse Rate 59 L 60 61 Respiratory Rate 29 H 30 H 33 H Blood Pressure 115/58 L 126/58 L 113/58 L Pulse Oximetry 99 100 99 03/10/18 15:00 03/10/18 15:15 03/10/18 15:30 Temperature Pulse Rate 59 L 60 72 Respiratory Rate 30 H 31 H 34 H Blood Pressure 115/56 L 112/53 L 116/64 Pulse Oximetry 99 99 100 03/10/18 15:45 03/10/18 15:46 03/10/18 15:48 Temperature Pulse Rate 59 L 60 Respiratory Rate 28 H 29 H 28 H Blood Pressure 108/58 L Pulse Oximetry 100 100 03/10/18 16:00 03/10/18 16:15 03/10/18 16:30 Temperature 99.8 F H Pulse Rate 58 L 60 57 L Respiratory Rate 23 Blood Pressure 113/59 L 108/54 L 104/52 L Pulse Oximetry 100 100 100 03/10/18 16:45 03/10/18 17:00 03/10/18 17:16 Temperature Pulse Rate 59 L 56 L 58 L Respiratory Rate 30 H 29 H Blood Pressure 103/50 L 102/51 L 119/53 L Pulse Oximetry 100 100 100 03/10/18 17:31 03/10/18 17:45 03/10/18 18:00 Temperature Pulse Rate 59 L 56 L 66 Respiratory Rate Blood Pressure 117/55 L 111/55 L Pulse Oximetry 99 99 98 03/10/18 18:01 03/10/18 18:15 03/10/18 18:30 Temperature Pulse Rate 60 54 L 87 Respiratory Rate Blood Pressure 122/58 L 117/56 L 129/63 Pulse Oximetry 100 100 100 03/10/18 18:45 03/10/18 19:00 03/10/18 20:00 Temperature 98.3 F Pulse Rate 59 L 66 66 Respiratory Rate 15 15 Blood Pressure 125/59 L 95/47 L 116/68 Pulse Oximetry 100 100 100 03/10/18 20:10 03/10/18 21:00 03/10/18 22:00 Temperature Pulse Rate 53 L 69 51 L Respiratory Rate 23 15 15 Blood Pressure 116/68 120/60 Pulse Oximetry 100 100 100 03/10/18 23:00 03/10/18 23:47 03/11/18 00:00 Temperature 98.3 F Pulse Rate 55 L 52 L 50 L Respiratory Rate 15 23 21 Blood Pressure 120/60 119/58 L Pulse Oximetry 100 100 03/11/18 01:00 03/11/18 02:00 03/11/18 03:00 Temperature Pulse Rate 51 L 50 L 49 L Respiratory Rate 23 26 H 21 Blood Pressure 122/59 L 117/55 L 115/56 L Pulse Oximetry 100 100 100 03/11/18 03:28 03/11/18 04:00 03/11/18 05:00 Temperature 98.3 F Pulse Rate 48 L 49 L 51 L Respiratory Rate 15 21 15 Blood Pressure 133/58 L 121/58 L Pulse Oximetry 100 100 03/11/18 06:00 03/11/18 07:00 03/11/18 08:00 Temperature 97.0 F L 97.0 F L Pulse Rate 50 L 46 L 54 L Respiratory Rate 15 16 16 Blood Pressure 129/61 115/55 L 124/57 L Pulse Oximetry 100 100 100 03/11/18 09:00 03/11/18 09:14 Temperature 97.0 F L Pulse Rate 54 L 64 Respiratory Rate 16 17 Blood Pressure 123/59 L Pulse Oximetry 100 100 Intake & Output 03/10/18 03/11/18 03/11/18 18:59 06:59 18:59 Intake Total 250 / 250 795 / 795 200 / 200 Output Total 935 / 935 950 / 950 Balance -685 / -685 -155 / -155 200 / 200 Weight 65.1 kg Intake: IV 250 / 250 615 / 615 200 / 200 Maxipime Inj 2,000 MG In NS Inj 100 / 100 100 / 100 100 ML @ 200 mls/hr IV.SIG Q12H ANN Rx#:[id number] Diflucan 200 mg Premix Bag 100 100 / 100 ML @ 100 mls/hr IV.SIG Q24H ANN Rx#:[id number] Levophed-Dextrose 4 mg/250 ml 250 / 250 Drip 4 mg In 250 ml @ 2 MCG/MIN 7.5 mls/hr IV.SIG TITRATE PRN Rx#:[id number] Vancomycin Inj 1,500 MG In NS 515 / 515 Inj 500 ML @ 250 mls/hr IV.SIG Q24H [facility] Rx#:[id number] Tube Feeding 120 / 120 Water Bolus Amount 60 / 60 Output: Urine 350 / 350 Urine Amount (Catheter) 935 / 935 Indwelling Urethral Catheter 935 / 935 Gastric Drainage 600 / 600 Pre-Hospital Gastrojejunostomy 600 / 600 Tube Result Diagrams: 03/11/18 00:15 03/11/18 00:15 Other Results: Microbiology 03/06/18 18:45 Blood - Peripheral Aerobic Blood Culture - Final Staphylococcus hominis-hominis 03/06/18 18:45 Blood - Peripheral Anaerobic Blood Culture - Preliminary No growth in 4 days 03/09/18 11:15 Blood - Peripheral Aerobic Blood Culture - Preliminary No growth in 1 day 03/09/18 11:15 Blood - Peripheral Anaerobic Blood Culture - Preliminary No growth in 1 day 03/09/18 11:07 Blood - Peripheral Aerobic Blood Culture - Preliminary No growth in 1 day 03/09/18 11:07 Blood - Peripheral Anaerobic Blood Culture - Preliminary No growth in 1 day 03/06/18 19:05 Blood - Peripheral Aerobic Blood Culture - Preliminary No growth in 4 days 03/06/18 19:05 Blood - Peripheral Anaerobic Blood Culture - Preliminary No growth in 4 days 03/08/18 05:10 Sputum - Endotracheal Gram Stain - Final 03/08/18 05:10 Sputum - Endotracheal Sputum Culture - Final S. aureus MRSA 03/06/18 18:00 Catheterized Urine Urine Culture - Final S. aureus MRSA Caitlyn tropicalis Imaging: ITS Impressions Chest X-Ray 03/10/18 06:00 CONCLUSION: Stable bibasilar atelectatic changes. Objective Remarks: GENERAL: 73-year-old female currently resting in bed in no acute distress orotracheally intubated SKIN: Warm and dry. HEAD: Atraumatic. Normocephalic. EYES: Pupils equal and round. No scleral icterus. No injection or drainage. Glasses are in place. Patient is nearsighted ENT: No nasal bleeding or discharge. Mucous membranes pink and moist. Orotracheally intubated NECK: Trachea midline. No JVD. Left IJ CVL is clean dry and intact. CARDIOVASCULAR: Bradycardic, RR. S1, S2. No S4 without murmur RESPIRATORY: Few scattered crackles appreciated bases bilaterally. No wheezes. Breath sounds equal bilaterally. GASTROINTESTINAL: Abdomen soft, non-tender, nondistended. Hepatic and splenic margins not palpable. MUSCULOSKELETAL: Extremities with trace bilateral upper extremity edema. No obvious deformities. NEUROLOGICAL: Awake and alert. Following commands on the ventilator. Moves all 4 extremities spontaneously. Assessment and Plan - Assessment and Plan Plan: NEURO/PSYCH: Adjustment disorder with depression Allergic rhinitis Fentanyl 50 mcg every hour/Versed 2 mg IV every 15 minutes bolus as needed for sedation/analgesia while intubated Target RASS 0 Continue escitalopram 20 mg daily/home medication via G-tube Acetaminophen 650 mg every 6 hours by G-tube for fever Continue cetirizine 10 mg daily for allergic rhinitis RESP: Acute respiratory failure 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 Noted initial CXR with pulm edema pattern, may be secondary to negative pressure pulm edema (exacerbated by low oncotic pressure) RUL spiculated lung mass on CT chest -follow-up with Dr. Martin [facility] 16/08/23/39 Ventilator bundle Albuterol/ipratropium aerosols every 4 hours with albuterol aerosols every 2 hours as needed for dyspnea Methylprednisolone succinate 40 mg IV every 8 hours Spontaneous breathing trial/CPAP trials as clinically indicated Dr. Kunz discussed with son. Agreed with tracheostomy option see his note. Plan today with Dr. Kraus 03/11 at noon. Resume [address] Martin/pulmonary following CV: Hypotension -possibly sepsis with elevated pro-calcitonin Chronic systolic heart failure ejection fraction 35% Received 2 L NS bolus in ED. Currently on norepinephrine drip at 8 mcg/min to maintain >65. 2D echo 02/23/18 ejection fraction 35%, anterior septal hypokinesis. Biatrial dilation. Serial troponins/EKG essentially negative Lactic acid normal. GI: Severe pharyngeal phase dysphagia -diagnosed by modified barium swallow 02/05/18 Proximal esophageal Stricture, radiation induced Rendon's esophagus GERD Severe chronic protein energy malnutrition Hypoalbuminemia G/J tube in place flush with 60 cc free water every 8 hours Vital 1.5 55/hr per nutrition recs via jejunostomy. G tube to gravity. N.p.o. after midnight. Resume. Post tracheostomy 4 hours Pt known to Dr. Aly, with esophageal dilation in the past. Have been planning outpatient esophageal dilation. Plan outpatient/upper esophageal stricture dilatation if patient agrees within the next several days/weeks. Pantoprazole for GI prophylaxis. On omeprazole 20 mg daily at home Docusate sodium/senna 1 tablet twice daily for bowel regimen. Add polythene glycol 17 g twice daily and lactulose 30 cc twice daily. Glycerin suppository 1 today. Check KUB in a.m. 03/12 FEN/RENAL: Acute kidney injury Monitor intake and output. Monitor electrolytes and replace as indicated per electrolyte replacement protocol Creatinine currently 1.2 and stable. ID: MRSA/Caitlyn tropicalis UTI Aspiration pneumonitis/pneumonia Will cover with cefepime 2 g IV every 8 hours day #5. Metronidazole 500 mg every 6 hours day #4 in vancomycin day #3 to cover for anaerobic coverage. Diflucan 200 mg daily day #3 for Caitlyn tropicalis UTI Mupirocin 2% to nares twice daily for MRSA nares Pertinent cultures Recheck blood cultures 2 03/09 no growth today 03/08 -sputum -MRSA 03/06 -blood cultures 2 -likely contaminant staph hominis- 03/06 -UA -MRSA/Caitlyn tropicalis HEME: Leukocytosis Normocytic anemia History of laryngeal cancer Followed by Dr. Pineda for followup h/o laryngeal cancer. Prior radiation and chemo completed 03/2015. Transfuse 2 units PRBCs since admission ENDO: Hypothyroidism Sliding scale insulin with insulin aspart with Accu-Cheks every 6 hours to maintain glycemic Continue levothyroxine 100 mcg by tube daily PROPH: SCDs for DVT prophylaxis. Heparin subcu pantoprazole for stress ulcer prophylaxis and history of GERD. ACCESS: Left IJ CVL day #5 placed 03/07 Level 2 follow-up
[2018-03-11] MEDS ORDERED: Glycerin Adult 2 GM Supp RECTAL ONE (09:32)
--- NOTE | 2018-03-11 10:43 | P.PNGI ---
Subjective Interval history: Pt on vent alert NAD VSS scheduled for Trach procedure today...would like to proceed w EGD Dilation some tome after trach as been placed. Physical Exam Vital signs: Vital Signs 03/10/18 10:45 03/10/18 11:00 03/10/18 11:15 Temperature Pulse Rate 51 L 50 L 51 L Respiratory Rate 34 H 30 H 32 H Blood Pressure 137/63 145/64 H 136/57 L Pulse Oximetry 100 100 100 03/10/18 11:23 03/10/18 11:30 03/10/18 11:45 Temperature Pulse Rate 52 L 55 L 52 L Respiratory Rate 19 31 H 24 Blood Pressure 133/61 140/61 Pulse Oximetry 100 100 99 03/10/18 12:00 03/10/18 12:01 03/10/18 12:16 Temperature 98.3 F Pulse Rate 53 L 53 L 53 L Respiratory Rate 26 H 26 H 36 H Blood Pressure 127/58 L 127/58 L 138/64 Pulse Oximetry 99 99 99 03/10/18 12:31 03/10/18 12:46 03/10/18 13:00 Temperature Pulse Rate 55 L 58 L 74 Respiratory Rate 25 H 28 H 33 H Blood Pressure 127/63 142/66 H 136/63 Pulse Oximetry 100 100 99 03/10/18 13:15 03/10/18 13:30 03/10/18 13:45 Temperature Pulse Rate 69 64 61 Respiratory Rate 29 H 32 H 33 H Blood Pressure 121/57 L 122/58 L 127/59 L Pulse Oximetry 99 99 99 03/10/18 14:00 03/10/18 14:15 03/10/18 14:35 Temperature Pulse Rate 62 59 L 60 Respiratory Rate 32 H 29 H 30 H Blood Pressure 116/56 L 115/58 L 126/58 L Pulse Oximetry 99 99 100 03/10/18 14:45 03/10/18 15:00 03/10/18 15:15 Temperature Pulse Rate 61 59 L 60 Respiratory Rate 33 H 30 H 31 H Blood Pressure 113/58 L 115/56 L 112/53 L Pulse Oximetry 99 99 99 03/10/18 15:30 03/10/18 15:45 03/10/18 15:46 Temperature Pulse Rate 72 59 L Respiratory Rate 34 H 28 H 29 H Blood Pressure 116/64 108/58 L Pulse Oximetry 100 100 100 03/10/18 15:48 03/10/18 16:00 03/10/18 16:15 Temperature 99.8 F H Pulse Rate 60 58 L 60 Respiratory Rate 28 H 23 Blood Pressure 113/59 L 108/54 L Pulse Oximetry 100 100 03/10/18 16:30 03/10/18 16:45 03/10/18 17:00 Temperature Pulse Rate 57 L 59 L 56 L Respiratory Rate 30 H Blood Pressure 104/52 L 103/50 L 102/51 L Pulse Oximetry 100 100 100 03/10/18 17:16 03/10/18 17:31 03/10/18 17:45 Temperature Pulse Rate 58 L 59 L 56 L Respiratory Rate 29 H Blood Pressure 119/53 L 117/55 L 111/55 L Pulse Oximetry 100 99 99 03/10/18 18:00 03/10/18 18:01 03/10/18 18:15 Temperature Pulse Rate 66 60 54 L Respiratory Rate Blood Pressure 122/58 L 117/56 L Pulse Oximetry 98 100 100 03/10/18 18:30 03/10/18 18:45 03/10/18 19:00 Temperature 98.3 F Pulse Rate 87 59 L 66 Respiratory Rate 15 Blood Pressure 129/63 125/59 L 95/47 L Pulse Oximetry 100 100 100 03/10/18 20:00 03/10/18 20:10 03/10/18 21:00 Temperature Pulse Rate 66 53 L 69 Respiratory Rate 15 23 15 Blood Pressure 116/68 116/68 Pulse Oximetry 100 100 100 03/10/18 22:00 03/10/18 23:00 03/10/18 23:47 Temperature Pulse Rate 51 L 55 L 52 L Respiratory Rate 15 15 23 Blood Pressure 120/60 120/60 Pulse Oximetry 100 100 03/11/18 00:00 03/11/18 01:00 03/11/18 02:00 Temperature 98.3 F Pulse Rate 50 L 51 L 50 L Respiratory Rate 21 23 26 H Blood Pressure 119/58 L 122/59 L 117/55 L Pulse Oximetry 100 100 100 03/11/18 03:00 03/11/18 03:28 03/11/18 04:00 Temperature 98.3 F Pulse Rate 49 L 48 L 49 L Respiratory Rate 21 15 21 Blood Pressure 115/56 L 133/58 L Pulse Oximetry 100 100 03/11/18 05:00 03/11/18 06:00 03/11/18 07:00 Temperature 97.0 F L Pulse Rate 51 L 50 L 46 L Respiratory Rate 15 15 16 Blood Pressure 121/58 L 129/61 115/55 L Pulse Oximetry 100 100 100 03/11/18 08:00 03/11/18 09:00 03/11/18 09:14 Temperature 97.0 F L 97.0 F L Pulse Rate 54 L 54 L 64 Respiratory Rate 16 16 17 Blood Pressure 124/57 L 123/59 L Pulse Oximetry 100 100 100 03/11/18 10:00 Temperature 97.0 F L Pulse Rate 54 L Respiratory Rate 16 Blood Pressure 123/59 L Pulse Oximetry 100 Intake & Output 03/10/18 03/11/18 03/11/18 18:59 06:59 18:59 Intake Total 250 / 250 795 / 795 200 / 200 Output Total 935 / 935 950 / 950 Balance -685 / -685 -155 / -155 200 / 200 Weight 65.1 kg Intake: IV 250 / 250 615 / 615 200 / 200 Maxipime Inj 2,000 MG In NS Inj 100 / 100 100 / 100 100 ML @ 200 mls/hr IV.SIG Q12H ANN Rx#:[id number] Diflucan 200 mg Premix Bag 100 100 / 100 ML @ 100 mls/hr IV.SIG Q24H ANN Rx#:[id number] Levophed-Dextrose 4 mg/250 ml 250 / 250 Drip 4 mg In 250 ml @ 2 MCG/MIN 7.5 mls/hr IV.SIG TITRATE PRN Rx#:[id number] Vancomycin Inj 1,500 MG In NS 515 / 515 Inj 500 ML @ 250 mls/hr IV.SIG Q24H ANN Rx#:[id number] Tube Feeding 120 / 120 Water Bolus Amount 60 / 60 Output: Urine 350 / 350 Urine Amount (Catheter) 935 / 935 Indwelling Urethral Catheter 935 / 935 Gastric Drainage 600 / 600 Pre-Hospital Gastrojejunostomy 600 / 600 Tube - Constitutional no acute distress - Routine Neck Exam Present: supple - Routine Respiratory Exam Present: patient mechanically ventilated, CTA bilaterally - Routine Cardiovascular Exam Present: RRR, S1, S2 - Routine Abdominal Exam Present: soft, normoactive bowel sounds. Absent: tenderness - Urinary Catheter Management Indwelling Urethral Catheter Cath placed during this visit: yes, but has since been removed by the nurse Reason for continuing: Hourly intake/output Insertion date: 03/06/18 Insertion time: 18:00 Removal date: 03/10/18 Removal time: 17:00 Results - Labs CBC & Chem 7: 03/11/18 00:15 03/11/18 00:15 Laboratory Results - last 24 hr 03/10/18 03/10/18 03/10/18 08:21 11:42 17:51 WBC RBC Hgb Hct MCV MCH MCHC RDW Plt Count MPV Prelim Diff (Auto) Neut % (Auto) Lymph % (Auto) Mobile % (Auto) Eos % (Auto) Baso % (Auto) Neut # (Auto) Lymph # (Auto) Mobile # (Auto) Eos # (Auto) Baso # (Auto) WBC Differential Seg Neuts % (Manual) Band Neuts % (Manual) Lymphocytes % (Manual) Monocytes % (Manual) Metamyelocytes % (Man) Myelocytes % (Man) Abs Neuts (Manual) Differential Comment Platelet Estimate Platelet Morphology Basophilic Stippling Ovalocytes Keratocytes APTT Sodium 139 Potassium 4.2 Chloride 102 Carbon Dioxide 26.0 Anion Gap 11 BUN 43 H Creatinine 1.19 H Estimated GFR 45 L POC Glucose 128 H 120 H Random Glucose 105 Calcium 8.5 Phosphorus Magnesium 03/11/18 03/11/18 03/11/18 00:11 00:15 00:15 WBC 7.1 D RBC 2.27 L Hgb 7.2 L Hct 20.3 L* MCV 89.3 MCH 31.7 MCHC 35.5 RDW 17.7 H Plt Count 198 D MPV 10.4 Prelim Diff (Auto) Slide review pending Neut % (Auto) 72.4 H Lymph % (Auto) 22.8 Mobile % (Auto) 0.1 Eos % (Auto) 0.1 Baso % (Auto) 4.6 H Neut # (Auto) 5.2 Lymph # (Auto) 1.6 Mobile # (Auto) 0.0 Eos # (Auto) 0.0 Baso # (Auto) 0.3 H WBC Differential Manual diff final Seg Neuts % (Manual) 64 Band Neuts % (Manual) 3 Lymphocytes % (Manual) 6 L Monocytes % (Manual) 11 H Metamyelocytes % (Man) 6 H Myelocytes % (Man) 10 H Abs Neuts (Manual) 5.9 Differential Comment . Platelet Estimate Normal Platelet Morphology Normal Basophilic Stippling Faint H Ovalocytes 1+ H Keratocytes Occ H APTT 22.5 L Sodium Potassium Chloride Carbon Dioxide Anion Gap BUN Creatinine Estimated GFR POC Glucose 107 Random Glucose Calcium Phosphorus Magnesium 03/11/18 03/11/18 00:15 05:56 WBC RBC Hgb Hct MCV MCH MCHC RDW Plt Count MPV Prelim Diff (Auto) Neut % (Auto) Lymph % (Auto) Mobile % (Auto) Eos % (Auto) Baso % (Auto) Neut # (Auto) Lymph # (Auto) Mobile # (Auto) Eos # (Auto) Baso # (Auto) WBC Differential Seg Neuts % (Manual) Band Neuts % (Manual) Lymphocytes % (Manual) Monocytes % (Manual) Metamyelocytes % (Man) Myelocytes % (Man) Abs Neuts (Manual) Differential Comment Platelet Estimate Platelet Morphology Basophilic Stippling Ovalocytes Keratocytes APTT Sodium 141 Potassium 3.6 Chloride 106 Carbon Dioxide 27.5 Anion Gap 8 BUN 43 H Creatinine 1.22 H Estimated GFR 43 L POC Glucose 116 H Random Glucose 97 Calcium 8.0 L Phosphorus 3.0 Magnesium 1.9 Microbiology 03/06/18 18:45 Blood - Peripheral Aerobic Blood Culture - Final Staphylococcus hominis-hominis 03/06/18 18:45 Blood - Peripheral Anaerobic Blood Culture - Preliminary No growth in 4 days 03/09/18 11:15 Blood - Peripheral Aerobic Blood Culture - Preliminary No growth in 1 day 03/09/18 11:15 Blood - Peripheral Anaerobic Blood Culture - Preliminary No growth in 1 day 03/09/18 11:07 Blood - Peripheral Aerobic Blood Culture - Preliminary No growth in 1 day 03/09/18 11:07 Blood - Peripheral Anaerobic Blood Culture - Preliminary No growth in 1 day 03/06/18 19:05 Blood - Peripheral Aerobic Blood Culture - Preliminary No growth in 4 days 03/06/18 19:05 Blood - Peripheral Anaerobic Blood Culture - Preliminary No growth in 4 days 03/08/18 05:10 Sputum - Endotracheal Gram Stain - Final 03/08/18 05:10 Sputum - Endotracheal Sputum Culture - Final S. aureus MRSA Assessment and Plan (1) Dysphagia Status: Chronic Code(s): R13.10 - Dysphagia, unspecified - Plan proceed with EGD Dilation under floro after trach placed discussed w pt Dr griffin to f/u
--- NOTE | 2018-03-11 12:05 | P.OP ---
- Preoperative Diagnosis (1) Acute respiratory failure requiring reintubation - Postoperative Diagnosis (1) Respiratory failure Date of procedure: 03/11/18 Procedure: perc trach with bronchoscopy Surgeon: Tarik Kraus MD Billboard Poster Helper: Ishmael Yates Estimated blood loss (mL): 5 Pathology: none sent Operation and Findings: good et, 100%O2
--- NOTE | 2018-03-11 12:20 | P.PCN ---
Date of procedure: 03/11/18 Pre-op diagnosis: Severe pharyngeal dysphagia/history of head and neck cancer Post-op diagnosis: same Procedure: DATE: 03/11/2018 Fiberoptic bronchoscopy INDICATION: Vent dependent respiratory failure CONSENT Informed consent for procedure was obtained from son via patient. DESCRIPTION OF THE PROCEDURE The patient was placed in supine position. The skin was cleansed with Chloraprep. PRVC 16/500/1/5/100. Patient received 15 mg midazolam and 50 mcg of fentanyl and 50 mg rocuronium. I entered the 8.0 ET tube with a fiberoptic bronchoscope.. Withdrawn to 17 cm with blue now. Please see Dr. Kraus's note for percutaneous tracheostomy placement. After placement, verified position with direct physician being bronchoscopy. After the tracheostomy sutured into place and secured, I entered the 8.0 Shiley percutaneous tracheostomy with fiberoptic bronchoscopy. No bleeding was identified. Section 30 cc of sterile saline in the right main bronchus until cleared. Saturations remained at or above 95% at all times. ESTIMATED BLOOD LOSS: Minimal COMPLICATIONS: No apparent complications. STAT chest x-ray pending at time of dictation
[2018-03-11] MEDS ORDERED: Cathflo Activase Inj 2 MG Vial I-CATHETER ONE (12:45)
--- NOTE | 2018-03-11 13:27 | XR ---
EXAM DATE: 03/11/2018 1:12 PM EDT AGE/SEX: 73 years / Female INDICATIONS: Status post percutaneous tracheostomy placement. CLINICAL DATA: This is the patient's subsequent encounter. Patient reports that signs and symptoms h ave been present for 2 weeks and indicates a pain score of Nonresponsive. MEDICAL/SURGICAL HISTORY: Chronic obstructive pulmonary disease. Hypothyroidism. Gastroesopha geal reflux disease. Cholecystectomy. Appendectomy. Hernia repair. COMPARISON: Chest x-ray 03/10/2018. FINDINGS: A single AP view of the chest demonstrates interval placement of a tracheostomy tube which is in good position. Left-sided central line remains. Bibasal consolidations left more so than right are simila r to the prior study. No effusions. Heart is normal in size. CONCLUSION: Interval tracheostomy tube placement. Persistent bibasilar consolidations. Electronically signed by: Gab Caro MD 03/11/2018 1:26 PM EDT
[2018-03-11] MEDS: fentaNYL Citrate Inj 100 MCG/2 ML Ampul IV.PUSH PRN (13:34)
[2018-03-11 16:22] LABS: Reticulocyte Percent 0.5 % (0.4-3.0)
[2018-03-11 16:36] LABS: % Iron Saturation 50.4 % (20-50)
--- NOTE | 2018-03-11 16:40 | MP ---
cc: Tarik Kraus MD, Lars S MD DATE OF OPERATION: 03/11/2018 PREOPERATIVE DIAGNOSIS: Acute respiratory failure, reintubation, history of squamous cell neck cancer. POSTOPERATIVE DIAGNOSIS: Acute respiratory failure, reintubation, history of squamous cell neck cancer. PROCEDURE PERFORMED: Percutaneous tracheostomy, 8 Shiley with bronchoscopy. SURGEON: Tarik Kraus MD. OPERATIONS CONTROLLER: Ishmael Yates MD ANESTHESIA: Moderate sedation. COMPLICATIONS: None. WOUND CLASSIFICATION: Clean. FINDINGS: Good O2 100%. Good end tidal bilateral breath sounds, confirmation bronchoscopy good placement. SPECIMENS: None. INDICATIONS FOR PROCEDURE: The patient is a 73-year-old female who presented with history of squamous cell neck cancer, status post chemoradiation. The patient required reintubation due to possible aspiration pneumonia and respiratory failure. Decision was made for tracheostomy due to the reintubation and prolonged respiratory ventilator requirement. DETAILS OF PROCEDURE: The patient was oxygenated up to 100%. A brief timeout done stating correct patient, procedure, site. We were all in agreement with this. Attention was directed to the midline neck. Trachea was palpated. The cricothyroid membrane was palpated in the sternal notch, landmarks identified. Local anesthetic injected. A vertical incision was made 2 cm. This was done over the second and third tracheal ring. Hemostat used to dissect down to the second and third tracheal ring. The introducer needle was obtained. Dr. Yates with respiratory retracted the ET tube under direct bronchoscopy. This was done in order to identify the needle entrance into the trachea. The sheath was advanced over the needle down caudad. The wire was obtained and cannulated over the sheath. Sheath was removed. A punch dilator was used x3. This was removed. A Blue Rhino dilator was used x3. Then this housing was removed and the #8 Shiley cuffed tracheostomy was obtained and cannulated over the wire. This sat snugly in place. The inner sheath and wire were removed and the vent was connected to the circuit and tracheostomy. Bilateral chest expansion noted. Good end tidal noted and 100% oxygen noted. Bronchoscopy then reintroduced and confirmed placement with noting good placement without evidence of bleeding. A 4-0 Prolene suture was used to suture the tracheostomy in place and a trach tie was placed. The cuff was inflated. The patient tolerated the procedure well. There were no intraoperative complications. All lap and instrument counts were correct at the end of the procedure. The patient remained on the vent with tracheostomy. MD JUAN CARLOS Esquivel/ , 04:17 PM , 04:39 PM
--- NOTE | 2018-03-11 19:43 | P.PN ---
Subjective Interval history: Had a Trach done today . awake and is on CPAP. FIO2 at 35 % No fever. Physical Exam Vital signs: Vital Signs 03/10/18 20:00 03/10/18 20:10 03/10/18 21:00 Temperature Pulse Rate 66 53 L 69 Respiratory Rate 15 23 15 Blood Pressure 116/68 116/68 Pulse Oximetry 100 100 100 03/10/18 22:00 03/10/18 23:00 03/10/18 23:47 Temperature Pulse Rate 51 L 55 L 52 L Respiratory Rate 15 15 23 Blood Pressure 120/60 120/60 Pulse Oximetry 100 100 03/11/18 00:00 03/11/18 01:00 03/11/18 02:00 Temperature 98.3 F Pulse Rate 50 L 51 L 50 L Respiratory Rate 21 23 26 H Blood Pressure 119/58 L 122/59 L 117/55 L Pulse Oximetry 100 100 100 03/11/18 03:00 03/11/18 03:28 03/11/18 04:00 Temperature 98.3 F Pulse Rate 49 L 48 L 49 L Respiratory Rate 21 15 21 Blood Pressure 115/56 L 133/58 L Pulse Oximetry 100 100 03/11/18 05:00 03/11/18 06:00 03/11/18 07:00 Temperature 97.0 F L Pulse Rate 51 L 50 L 46 L Respiratory Rate 15 15 16 Blood Pressure 121/58 L 129/61 115/55 L Pulse Oximetry 100 100 100 03/11/18 08:00 03/11/18 09:00 03/11/18 09:14 Temperature 97.0 F L 97.0 F L Pulse Rate 54 L 48 L 64 Respiratory Rate 16 16 17 Blood Pressure 124/57 L 123/59 L Pulse Oximetry 100 100 100 03/11/18 10:00 03/11/18 11:00 03/11/18 12:00 Temperature 97.0 F L 97.0 F L 97.0 F L Pulse Rate 51 L 49 L 51 L Respiratory Rate 16 16 18 Blood Pressure 123/59 L 113/58 L 148/64 H Pulse Oximetry 100 100 100 03/11/18 13:00 03/11/18 14:00 03/11/18 14:03 Temperature 97.5 F L Pulse Rate 65 56 L 55 L Respiratory Rate 16 15 15 Blood Pressure 123/58 L 116/58 L 118/58 L Pulse Oximetry 100 100 100 03/11/18 14:05 03/11/18 14:07 03/11/18 14:10 Temperature Pulse Rate 56 L 55 L 56 L Respiratory Rate 15 15 15 Blood Pressure 117/58 L 121/56 L 115/58 L Pulse Oximetry 100 100 100 03/11/18 14:12 03/11/18 14:15 03/11/18 14:18 Temperature Pulse Rate 54 L 53 L 58 L Respiratory Rate 15 15 15 Blood Pressure 124/58 L 116/56 L 123/58 L Pulse Oximetry 100 100 100 03/11/18 14:20 03/11/18 14:23 03/11/18 14:25 Temperature Pulse Rate 56 L 55 L 53 L Respiratory Rate 15 15 15 Blood Pressure 123/59 L 119/56 L 117/56 L Pulse Oximetry 100 100 100 03/11/18 14:27 03/11/18 14:30 03/11/18 14:33 Temperature Pulse Rate 53 L 54 L 76 Respiratory Rate 15 15 18 Blood Pressure 119/58 L 127/58 L 127/60 Pulse Oximetry 100 100 100 03/11/18 14:35 03/11/18 14:38 03/11/18 14:40 Temperature Pulse Rate 54 L 51 L 51 L Respiratory Rate 15 15 15 Blood Pressure 134/64 121/60 132/60 Pulse Oximetry 100 100 100 03/11/18 14:43 03/11/18 14:45 03/11/18 14:47 Temperature Pulse Rate 52 L 51 L 51 L Respiratory Rate 15 15 15 Blood Pressure 131/59 L 123/60 121/59 L Pulse Oximetry 100 100 100 03/11/18 14:50 03/11/18 14:53 03/11/18 14:54 Temperature 98.4 F Pulse Rate 51 L 51 L 51 L Respiratory Rate 15 16 15 Blood Pressure 122/59 L 125/61 125/61 Pulse Oximetry 100 100 100 03/11/18 15:00 03/11/18 15:06 03/11/18 15:16 Temperature 97.9 F Pulse Rate 50 L 57 L 51 L Respiratory Rate 15 15 15 Blood Pressure 125/60 125/60 125/58 L Pulse Oximetry 100 100 100 03/11/18 15:18 03/11/18 15:30 03/11/18 15:31 Temperature 98.7 F Pulse Rate 50 L 50 L Respiratory Rate 15 15 15 Blood Pressure 125/58 L 125/61 Pulse Oximetry 100 100 100 03/11/18 15:45 03/11/18 15:58 03/11/18 16:00 Temperature 98.7 F 98.0 F 98.1 F Pulse Rate 51 L 50 L 52 L Respiratory Rate 15 16 15 Blood Pressure 125/61 147/63 H 137/65 Pulse Oximetry 100 100 100 03/11/18 16:16 03/11/18 16:31 03/11/18 17:00 Temperature 98.0 F 98.1 F 98.2 F Pulse Rate 47 L 49 L 46 L Respiratory Rate 15 15 15 Blood Pressure 137/65 135/64 139/63 Pulse Oximetry 100 100 100 03/11/18 17:30 03/11/18 17:45 03/11/18 18:00 Temperature Pulse Rate 45 L 48 L 46 L Respiratory Rate 15 15 15 Blood Pressure 128/60 129/63 134/65 Pulse Oximetry 100 100 100 03/11/18 18:14 03/11/18 18:15 Temperature Pulse Rate 48 L Respiratory Rate 15 Blood Pressure 133/63 Pulse Oximetry 100 Intake & Output 03/11/18 03/11/18 03/12/18 06:59 18:59 06:59 Intake Total 795 / 795 400 / 400 Output Total 950 / 950 1150 / 1150 Balance -155 / -155 -750 / -750 Weight 65.1 kg Intake: IV 615 / 615 400 / 400 Maxipime Inj 2,000 MG In NS Inj 100 / 100 200 / 200 100 ML @ 200 mls/hr IV.SIG Q12H ANN Rx#:[id number] Diflucan 200 mg Premix Bag 100 200 / 200 ML @ 100 mls/hr IV.SIG Q24H ANN Rx#:[id number] Vancomycin Inj 1,500 MG In NS 515 / 515 Inj 500 ML @ 250 mls/hr IV.SIG Q24H ANN Rx#:[id number] Tube Feeding 120 / 120 Water Bolus Amount 60 / 60 Intake (Blood Product) Amt 0 / 0 Rbc As-3 Leukoreduced Unit 0 / 0 [id number] Output: Urine 350 / 350 900 / 900 Gastric Drainage 600 / 600 250 / 250 Pre-Hospital Gastrojejunostomy 600 / 600 250 / 250 Tube Other: # Bowel Movements 0 Narrative: GENERAL: Elderly W/F on vent support. has a Trach tube SKIN: Warm and dry. HEAD: Normocephalic.Alert and responds well. EYES: No scleral icterus. No injection or drainage. NECK: Supple, trachea midline. No JVD or lymphadenopathy. CARDIOVASCULAR: Irregular rate and rhythm without murmurs, gallops, or rubs. RESPIRATORY: Breath sounds equal bilaterally. Occ Crackles at bases. and mild wheeze. GASTROINTESTINAL: Abdomen soft, non-tender, nondistended. MUSCULOSKELETAL: No cyanosis, or edema. BACK: Nontender without obvious deformity. Neuro status cannot be assessed. - Urinary Catheter Management Indwelling Urethral Catheter Cath placed during this visit: yes, but has since been removed by the nurse Reason for continuing: Hourly intake/output Insertion date: 03/06/18 Insertion time: 18:00 Removal date: 03/10/18 Removal time: 17:00 Results - Labs CBC & Chem 7: 03/11/18 00:15 03/11/18 00:15 Laboratory Results - last 24 hr 03/08/18 03/09/18 03/11/18 13:50 02:10 00:11 WBC RBC Hgb Hct MCV MCH MCHC RDW Plt Count MPV Prelim Diff (Auto) Neut % (Auto) Lymph % (Auto) [place] % (Auto) Eos % (Auto) Baso % (Auto) Neut # (Auto) Lymph # (Auto) [place] # (Auto) Eos # (Auto) Baso # (Auto) WBC Differential Seg Neuts % (Manual) Band Neuts % (Manual) Lymphocytes % (Manual) Monocytes % (Manual) Metamyelocytes % (Man) Myelocytes % (Man) Abs Neuts (Manual) Differential Comment Platelet Estimate Platelet Morphology Basophilic Stippling Ovalocytes Keratocytes Retic Count Absolute Retic APTT Sodium Potassium Chloride Carbon Dioxide Anion Gap BUN Creatinine Estimated GFR POC Glucose 107 Random Glucose Calcium Phosphorus Magnesium Iron TIBC % Saturation Transferrin Ferritin Blood Type B Positive Antibody Screen Negative MTS Gel Crossmatch See Detail See Detail 03/11/18 03/11/18 03/11/18 00:15 00:15 00:15 WBC 7.1 D RBC 2.27 L Hgb 7.2 L Hct 20.3 L* MCV 89.3 MCH 31.7 MCHC 35.5 RDW 17.7 H Plt Count 198 D MPV 10.4 Prelim Diff (Auto) Slide review pending Neut % (Auto) 72.4 H Lymph % (Auto) 22.8 [place] % (Auto) 0.1 Eos % (Auto) 0.1 Baso % (Auto) 4.6 H Neut # (Auto) 5.2 Lymph # (Auto) 1.6 [place] # (Auto) 0.0 Eos # (Auto) 0.0 Baso # (Auto) 0.3 H WBC Differential Manual diff final Seg Neuts % (Manual) 64 Band Neuts % (Manual) 3 Lymphocytes % (Manual) 6 L Monocytes % (Manual) 11 H Metamyelocytes % (Man) 6 H Myelocytes % (Man) 10 H Abs Neuts (Manual) 5.9 Differential Comment . Platelet Estimate Normal Platelet Morphology Normal Basophilic Stippling Faint H Ovalocytes 1+ H Keratocytes Occ H Retic Count Absolute Retic APTT 22.5 L Sodium 141 Potassium 3.6 Chloride 106 Carbon Dioxide 27.5 Anion Gap 8 BUN 43 H Creatinine 1.22 H Estimated GFR 43 L POC Glucose Random Glucose 97 Calcium 8.0 L Phosphorus 3.0 Magnesium 1.9 Iron TIBC % Saturation Transferrin Ferritin Blood Type Antibody Screen MTS Gel Crossmatch 03/11/18 03/11/18 03/11/18 05:56 12:52 15:14 WBC RBC Hgb Hct MCV MCH MCHC RDW Plt Count MPV Prelim Diff (Auto) Neut % (Auto) Lymph % (Auto) [place] % (Auto) Eos % (Auto) Baso % (Auto) Neut # (Auto) Lymph # (Auto) [place] # (Auto) Eos # (Auto) Baso # (Auto) WBC Differential Seg Neuts % (Manual) Band Neuts % (Manual) Lymphocytes % (Manual) Monocytes % (Manual) Metamyelocytes % (Man) Myelocytes % (Man) Abs Neuts (Manual) Differential Comment Platelet Estimate Platelet Morphology Basophilic Stippling Ovalocytes Keratocytes Retic Count 0.5 Absolute Retic 12.8 L APTT Sodium Potassium Chloride Carbon Dioxide Anion Gap BUN Creatinine Estimated GFR POC Glucose 116 H Random Glucose Calcium Phosphorus Magnesium Iron TIBC % Saturation Transferrin Ferritin Blood Type B Positive Antibody Screen Negative MTS Gel Crossmatch See Detail 03/11/18 03/11/18 03/11/18 15:14 15:14 17:05 WBC RBC Hgb Hct MCV MCH MCHC RDW Plt Count MPV Prelim Diff (Auto) Neut % (Auto) Lymph % (Auto) [place] % (Auto) Eos % (Auto) Baso % (Auto) Neut # (Auto) Lymph # (Auto) [place] # (Auto) Eos # (Auto) Baso # (Auto) WBC Differential Seg Neuts % (Manual) Band Neuts % (Manual) Lymphocytes % (Manual) Monocytes % (Manual) Metamyelocytes % (Man) Myelocytes % (Man) Abs Neuts (Manual) Differential Comment Platelet Estimate Platelet Morphology Basophilic Stippling Ovalocytes Keratocytes Retic Count Absolute Retic APTT Sodium Potassium Chloride Carbon Dioxide Anion Gap BUN Creatinine Estimated GFR POC Glucose 118 H Random Glucose Calcium Phosphorus Magnesium Iron 96 TIBC 190 L % Saturation 50.4 H Transferrin 136 L Cancelled Ferritin 1460 H Cancelled Blood Type Antibody Screen MTS Gel Crossmatch Microbiology 03/09/18 11:15 Blood - Peripheral Aerobic Blood Culture - Preliminary No growth in 2 days 03/09/18 11:15 Blood - Peripheral Anaerobic Blood Culture - Preliminary No growth in 2 days 03/09/18 11:07 Blood - Peripheral Aerobic Blood Culture - Preliminary No growth in 2 days 03/09/18 11:07 Blood - Peripheral Anaerobic Blood Culture - Preliminary No growth in 2 days 03/06/18 19:05 Blood - Peripheral Aerobic Blood Culture - Final No growth in 5 days 03/06/18 19:05 Blood - Peripheral Anaerobic Blood Culture - Final No growth in 5 days 03/06/18 18:45 Blood - Peripheral Aerobic Blood Culture - Final Staphylococcus hominis-hominis 03/06/18 18:45 Blood - Peripheral Anaerobic Blood Culture - Final No growth in 5 days - Imaging Impressions Chest X-Ray 03/11/18 12:14 CONCLUSION: Interval tracheostomy tube placement. Persistent bibasilar consolidations. 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 Cont on CPAP /PSV 5/12 FIO2 30% 2. Trach care and lavage PRN 3. Continue Duo nebs q6h 4. CXR CBC,BMP in am 5. Continue solumedrol 40 mg IV daily 6. Stop sedation. 7. Tube feeds at 60 CC. 8. T Bar trial in am (7) Aspiration pneumonia Qualifiers: Aspiration pneumonia type: unspecified Laterality: unspecified laterality Lung location: unspecified part of lung Qualified Code(s): J69.0 - Pneumonitis due to inhalation of food and vomit
[2018-03-11] MEDS: Vancomycin Inj 1,500 MG in Sodium Chlor 0.9% Inj 500 ML IV.SIG SCH (20:00)
[2018-03-11] MEDS: Polyethylene Glycol 3350 17 GM Packet PO SCH (21:00)
[2018-03-11] MEDS: Mupirocin 2% Nasal Oint Topical Syringe EACH NARE SCH (21:00)
[2018-03-11 21:51] LABS: Hematocrit 26.2 % (35.0-46.0); Hemoglobin 9.1 gm/dL (11.6-15.3)
[2018-03-12] MEDS: Oral Hygiene Kit OROPHARYNG SCH ×5 (00:28→15:43)
[2018-03-12] MEDS: Insulin NovoLOG Aspart Correctional Sugar Inj SQ SCH ×4 (00:28→17:44)
[2018-03-12] MEDS: metroNIDAZOLE 500 MG Tablet PO SCH ×4 (00:28→18:35)
[2018-03-12] MEDS: Hypromellose 0.3% Opth Gel 10 GM Bottle EACH EYE SCH ×3 (00:29→17:44)
[2018-03-12 05:03] LABS: Baso # (Auto) 0.1 th/mm3 (0.0-0.2); Baso % (Auto) 0.8 % (0.0-2.0); Eos % (Auto) 0.1 % (0.0-4.0); Hematocrit 29.2 % (35.0-46.0); Hemoglobin 9.9 gm/dL (11.6-15.3); Lymph # (Auto) 0.7 th/mm3 (1.0-4.8); Lymph % (Auto) 7.2 % (9.0-44.0); Mean Corpuscular HGB Conc 33.8 % (32.0-36.0); Mean Corpuscular Hemoglobin 31.4 pg (27.0-34.0); Mean Corpuscular Volume 92.9 fL (80.0-100.0); Mean Platelet Volume 11.1 fL (7.0-11.0); Mono # (Auto) 1.4 th/mm3 (0.0-0.9); Mono % (Auto) 15.4 % (0.0-8.0); Neut # (Auto) 7.1 th/mm3 (1.8-7.7); Neut % (Auto) 76.5 % (16.0-70.0); Platelet Count 208 th/mm3 (150-450); Red Blood Count 3.14 mil/mm3 (4.00-5.30); Red Cell Distribution Width 16.9 % (11.6-17.2); White Blood Count 9.3 th/mm3 (4.0-11.0)
[2018-03-12 05:12] LABS: Calcium 8.3 mg/dL (8.5-10.1); Carbon Dioxide 23.3 meq/L (21.0-32.0); Magnesium 2.3 mg/dL (1.5-2.5); Phosphorus 3.8 mg/dL (2.5-4.9); Potassium 4.4 meq/L (3.5-5.1)
[2018-03-12] MEDS: Levothyroxine 100 MCG Tablet NG/OG SCH (05:59)
--- NOTE | 2018-03-12 07:14 | XR ---
EXAM DATE: 03/12/2018 6:52 AM EDT AGE/SEX: 73 years / Female INDICATIONS: Ileus. CLINICAL DATA: This is the patient's subsequent encounter. Patient reports that signs and symptoms h ave been present for 3 weeks and indicates a pain score of Nonresponsive. MEDICAL/SURGICAL HISTORY: . Gastroesophageal reflux disease. Hypothyroidism. Arthritis. Ralph twyla esophagus. Skin cancer. Cholecystectomy. Tonsillectomy. Skin cancer removed. EGD. Hernia repair. Adenoidectomy. . COMPARISON: [facility] [place], ABDOMEN KUB ONLY, 02/13/2018. . FINDINGS: The bowel gas is nonspecific. There are no signs of obstruction or free air for technique. No defin ite calcified stones are identified for technique. G-tube is again identified. CONCLUSION: Unremarkable study. Electronically signed by: Bebeto Pelletier MD 03/12/2018 7:13 AM EDT
[2018-03-12] MEDS: Pantoprazole Inj 40 MG Vial IV.PUSH SCH (08:20)
[2018-03-12] MEDS: MethylPREDNISolone Sod Succinate Inj 40 MG/ML Vial IV.PUSH SCH ×2 (08:20→22:07)
[2018-03-12] MEDS: Mupirocin 2% Nasal Oint Topical Syringe EACH NARE SCH ×2 (08:20→22:06)
[2018-03-12] MEDS: Ascorbic Acid 500 MG Tablet G-TUBE SCH ×2 (08:20→22:05)
[2018-03-12] MEDS: Senna/Docusate Sodium 8.6/50 MG Tablet PO SCH ×2 (08:21→22:06)
[2018-03-12] MEDS: Carbamide Peroxide 6.5% Otic Drops 15 ML Bottle EACH EAR SCH ×2 (08:21→22:07)
[2018-03-12] MEDS: Polyethylene Glycol 3350 17 GM Packet PO SCH ×2 (08:21→22:05)
[2018-03-12] MEDS: fentaNYL Citrate Inj 100 MCG/2 ML Ampul IV.PUSH PRN ×3 (08:44→23:22)
[2018-03-12] MEDS: Chlorhexidine 0.12% Oral Kit 15 ML UDC OROPHARYNG SCH ×2 (09:16→22:06)
[2018-03-12 09:27] LABS: Lymphocytes 3 % (9-44); Metamyelocytes 9 % (0-1); Monocytes 15 % (0-8)
[2018-03-12 09:34] LABS: Ovalocytes 1+; Platelet Estimate Normal (Normal)
--- NOTE | 2018-03-12 12:00 | P.PNGI ---
Subjective Interval history: Patient still in ICU. Now has a trach. Blood pressure better. Per the nurse she has all off pressors. no overt GI bleeding noted Physical Exam Vital signs: Vital Signs 03/11/18 12:00 03/11/18 13:00 03/11/18 14:00 Temperature 97.0 F L 97.5 F L Pulse Rate 51 L 65 56 L Respiratory Rate 18 16 15 Blood Pressure 148/64 H 123/58 L 116/58 L Pulse Oximetry 100 100 100 03/11/18 14:03 03/11/18 14:05 03/11/18 14:07 Temperature Pulse Rate 55 L 56 L 55 L Respiratory Rate 15 15 15 Blood Pressure 118/58 L 117/58 L 121/56 L Pulse Oximetry 100 100 100 03/11/18 14:10 03/11/18 14:12 03/11/18 14:15 Temperature Pulse Rate 56 L 54 L 53 L Respiratory Rate 15 15 15 Blood Pressure 115/58 L 124/58 L 116/56 L Pulse Oximetry 100 100 100 03/11/18 14:18 03/11/18 14:20 03/11/18 14:23 Temperature Pulse Rate 58 L 56 L 55 L Respiratory Rate 15 15 15 Blood Pressure 123/58 L 123/59 L 119/56 L Pulse Oximetry 100 100 100 03/11/18 14:25 03/11/18 14:27 03/11/18 14:30 Temperature Pulse Rate 53 L 53 L 54 L Respiratory Rate 15 15 15 Blood Pressure 117/56 L 119/58 L 127/58 L Pulse Oximetry 100 100 100 03/11/18 14:33 03/11/18 14:35 03/11/18 14:38 Temperature Pulse Rate 76 54 L 51 L Respiratory Rate 18 15 15 Blood Pressure 127/60 134/64 121/60 Pulse Oximetry 100 100 100 03/11/18 14:40 03/11/18 14:43 03/11/18 14:45 Temperature Pulse Rate 51 L 52 L 51 L Respiratory Rate 15 15 15 Blood Pressure 132/60 131/59 L 123/60 Pulse Oximetry 100 100 100 03/11/18 14:47 03/11/18 14:50 03/11/18 14:53 Temperature Pulse Rate 51 L 51 L 51 L Respiratory Rate 15 15 16 Blood Pressure 121/59 L 122/59 L 125/61 Pulse Oximetry 100 100 100 03/11/18 14:54 03/11/18 15:00 03/11/18 15:06 Temperature 98.4 F 97.9 F Pulse Rate 51 L 50 L 57 L Respiratory Rate 15 15 15 Blood Pressure 125/61 125/60 125/60 Pulse Oximetry 100 100 100 03/11/18 15:16 03/11/18 15:18 03/11/18 15:30 Temperature 98.7 F Pulse Rate 51 L 50 L 50 L Respiratory Rate 15 15 15 Blood Pressure 125/58 L 125/58 L 125/61 Pulse Oximetry 100 100 100 03/11/18 15:31 03/11/18 15:45 03/11/18 15:58 Temperature 98.7 F 98.0 F Pulse Rate 51 L 50 L Respiratory Rate 15 15 16 Blood Pressure 125/61 147/63 H Pulse Oximetry 100 100 100 03/11/18 16:00 03/11/18 16:16 03/11/18 16:31 Temperature 98.1 F 98.0 F 98.1 F Pulse Rate 52 L 47 L 49 L Respiratory Rate 15 15 15 Blood Pressure 137/65 137/65 135/64 Pulse Oximetry 100 100 100 03/11/18 17:00 03/11/18 17:30 03/11/18 17:45 Temperature 98.2 F Pulse Rate 46 L 45 L 48 L Respiratory Rate 15 15 15 Blood Pressure 139/63 128/60 129/63 Pulse Oximetry 100 100 100 03/11/18 18:00 03/11/18 18:14 03/11/18 18:15 Temperature Pulse Rate 46 L 48 L Respiratory Rate 15 15 Blood Pressure 134/65 133/63 Pulse Oximetry 100 100 03/11/18 20:00 03/11/18 20:56 03/11/18 22:00 Temperature 98.0 F Pulse Rate 55 L 50 L 50 L Respiratory Rate 15 15 Blood Pressure 130/58 L Pulse Oximetry 100 100 03/11/18 23:50 03/12/18 00:00 03/12/18 02:00 Temperature 98.0 F Pulse Rate 47 L 50 L 48 L Respiratory Rate 15 15 Blood Pressure 132/62 Pulse Oximetry 100 100 03/12/18 03:53 03/12/18 04:00 03/12/18 06:00 Temperature 98.3 F Pulse Rate 59 L 55 L 55 L Respiratory Rate 25 H 24 Blood Pressure 121/59 L Pulse Oximetry 100 100 03/12/18 07:00 03/12/18 07:34 03/12/18 08:00 Temperature 98.2 F Pulse Rate 54 L 54 L Respiratory Rate 33 H 26 H 15 Blood Pressure 132/63 Pulse Oximetry 100 100 03/12/18 09:00 03/12/18 10:00 03/12/18 11:00 Temperature Pulse Rate 54 L 63 59 L Respiratory Rate 19 Blood Pressure Pulse Oximetry 03/12/18 11:16 Temperature Pulse Rate Respiratory Rate 16 Blood Pressure Pulse Oximetry 100 Intake & Output 03/11/18 03/12/18 03/12/18 18:59 06:59 18:59 Intake Total 400 / 400 615 / 615 Output Total 1150 / 1150 750 / 750 Balance -750 / -750 -750 / -750 615 / 615 Weight 65.1 kg Intake: IV 400 / 400 615 / 615 Maxipime Inj 2,000 MG In NS Inj 200 / 200 100 / 100 100 ML @ 200 mls/hr IV.SIG Q12H ANN Rx#:[id number] Diflucan 200 mg Premix Bag 100 200 / 200 ML @ 100 mls/hr IV.SIG Q24H ANN Rx#:[id number] Vancomycin Inj 1,500 MG In NS 515 / 515 Inj 500 ML @ 250 mls/hr IV.SIG Q24H ANN Rx#:[id number] Intake (Blood Product) Amt 0 / 0 0 / 0 Rbc As-3 Leukoreduced Unit 0 / 0 0 / 0 [id number] Output: Urine 900 / 900 Urine Amount (Catheter) 350 / 350 Female External 350 / 350 Gastric Drainage 250 / 250 400 / 400 Pre-Hospital Gastrojejunostomy 250 / 250 400 / 400 Tube Other: # Bowel Movements 0 - Constitutional no acute distress - Routine HEENT Exam Head: Present: atraumatic - Routine Respiratory Exam Present: CTA bilaterally - Routine Abdominal Exam Present: soft, normoactive bowel sounds - Routine Extremities Exam Present: edema - Urinary Catheter Management Female External Cath placed during this visit: no Indwelling Urethral Catheter Cath placed during this visit: yes, but has since been removed by the nurse Reason for continuing: Hourly intake/output Insertion date: 03/06/18 Insertion time: 18:00 Removal date: 03/10/18 Removal time: 17:00 Results - Labs CBC & Chem 7: 03/12/18 03:42 03/12/18 03:42 Laboratory Results - last 24 hr 03/08/18 03/09/18 03/11/18 13:50 02:10 12:52 WBC RBC Hgb Hct MCV MCH MCHC RDW Plt Count MPV Prelim Diff (Auto) Neut % (Auto) Lymph % (Auto) [place] % (Auto) Eos % (Auto) Baso % (Auto) Neut # (Auto) Lymph # (Auto) [place] # (Auto) Eos # (Auto) Baso # (Auto) WBC Differential Seg Neuts % (Manual) Band Neuts % (Manual) Lymphocytes % (Manual) Monocytes % (Manual) Metamyelocytes % (Man) Abs Neuts (Manual) Differential Comment Platelet Estimate Platelet Morphology Ovalocytes Retic Count Absolute Retic Sodium Potassium Chloride Carbon Dioxide Anion Gap BUN Creatinine Estimated GFR POC Glucose Random Glucose Calcium Phosphorus Magnesium Iron TIBC % Saturation Transferrin Ferritin Blood Type B Positive B Positive Antibody Screen Negative Negative MTS Gel Crossmatch See Detail See Detail See Detail 03/11/18 03/11/18 03/11/18 15:14 15:14 15:14 WBC RBC Hgb Hct MCV MCH MCHC RDW Plt Count MPV Prelim Diff (Auto) Neut % (Auto) Lymph % (Auto) [place] % (Auto) Eos % (Auto) Baso % (Auto) Neut # (Auto) Lymph # (Auto) [place] # (Auto) Eos # (Auto) Baso # (Auto) WBC Differential Seg Neuts % (Manual) Band Neuts % (Manual) Lymphocytes % (Manual) Monocytes % (Manual) Metamyelocytes % (Man) Abs Neuts (Manual) Differential Comment Platelet Estimate Platelet Morphology Ovalocytes Retic Count 0.5 Absolute Retic 12.8 L Sodium Potassium Chloride Carbon Dioxide Anion Gap BUN Creatinine Estimated GFR POC Glucose Random Glucose Calcium Phosphorus Magnesium Iron 96 TIBC 190 L % Saturation 50.4 H Transferrin 136 L Cancelled Ferritin 1460 H Cancelled Blood Type Antibody Screen MTS Gel Crossmatch 03/11/18 03/11/18 03/11/18 17:05 21:15 23:54 WBC RBC Hgb 9.1 L Hct 26.2 L MCV MCH MCHC RDW Plt Count MPV Prelim Diff (Auto) Neut % (Auto) Lymph % (Auto) [place] % (Auto) Eos % (Auto) Baso % (Auto) Neut # (Auto) Lymph # (Auto) [place] # (Auto) Eos # (Auto) Baso # (Auto) WBC Differential Seg Neuts % (Manual) Band Neuts % (Manual) Lymphocytes % (Manual) Monocytes % (Manual) Metamyelocytes % (Man) Abs Neuts (Manual) Differential Comment Platelet Estimate Platelet Morphology Ovalocytes Retic Count Absolute Retic Sodium Potassium Chloride Carbon Dioxide Anion Gap BUN Creatinine Estimated GFR POC Glucose 118 H 156 H Random Glucose Calcium Phosphorus Magnesium Iron TIBC % Saturation Transferrin Ferritin Blood Type Antibody Screen MTS Gel Crossmatch 03/12/18 03/12/18 03/12/18 03:42 03:42 05:37 WBC 9.3 RBC 3.14 L Hgb 9.9 L Hct 29.2 L MCV 92.9 D MCH 31.4 MCHC 33.8 RDW 16.9 Plt Count 208 MPV 11.1 H Prelim Diff (Auto) Slide review pending Neut % (Auto) 76.5 H Lymph % (Auto) 7.2 L [place] % (Auto) 15.4 H Eos % (Auto) 0.1 Baso % (Auto) 0.8 Neut # (Auto) 7.1 Lymph # (Auto) 0.7 L [place] # (Auto) 1.4 H Eos # (Auto) 0.0 Baso # (Auto) 0.1 WBC Differential Manual diff final Seg Neuts % (Manual) 69 Band Neuts % (Manual) 4 Lymphocytes % (Manual) 3 L Monocytes % (Manual) 15 H Metamyelocytes % (Man) 9 H Abs Neuts (Manual) 7.6 Differential Comment . Platelet Estimate Normal Platelet Morphology Enlarged H Ovalocytes 1+ H Retic Count Absolute Retic Sodium 142 Potassium 4.4 D Chloride 107 Carbon Dioxide 23.3 Anion Gap 12 BUN 45 H Creatinine 1.41 H Estimated GFR 37 L POC Glucose 166 H Random Glucose 153 H Calcium 8.3 L Phosphorus 3.8 Magnesium 2.3 Iron TIBC % Saturation Transferrin Ferritin Blood Type Antibody Screen MTS Gel Crossmatch Microbiology 03/09/18 11:15 Blood - Peripheral Aerobic Blood Culture - Preliminary No growth in 3 days 03/09/18 11:15 Blood - Peripheral Anaerobic Blood Culture - Preliminary No growth in 3 days 03/09/18 11:07 Blood - Peripheral Aerobic Blood Culture - Preliminary No growth in 3 days 03/09/18 11:07 Blood - Peripheral Anaerobic Blood Culture - Preliminary No growth in 3 days 03/06/18 19:05 Blood - Peripheral Aerobic Blood Culture - Final No growth in 5 days 03/06/18 19:05 Blood - Peripheral Anaerobic Blood Culture - Final No growth in 5 days 03/06/18 18:45 Blood - Peripheral Aerobic Blood Culture - Final Staphylococcus hominis-hominis 03/06/18 18:45 Blood - Peripheral Anaerobic Blood Culture - Final No growth in 5 days - Imaging Impressions Chest X-Ray 03/11/18 12:14 CONCLUSION: Interval tracheostomy tube placement. Persistent bibasilar consolidations. Abdomen X-Ray 03/12/18 00:00 CONCLUSION: Unremarkable study. Assessment and Plan - Plan impression- 1. oral pharyngeal dysphagia / throat cancer -status post feeding tube and now tracheostomy 2. patient has a tight stricture in the upper esophagus/ throat area PLAN: patient will need upper endoscopy and dilatation with fluoroscopy. Due to her clinical status it is a much higher risk. Hopefully if she continues to do well we can do this in the near future
[2018-03-12] MEDS ORDERED: Mineral Oil 55% Emulsion 480 ML G-TUBE ONE (12:58)
[2018-03-12] MEDS ORDERED: Methylnaltrexone Inj 12 MG/0.6 ML Vial SQ ONE (12:58)
[2018-03-12] MEDS ORDERED: Sod Phosphate/Sod Biphosphate (Adult) Enema 133 ML Bottle RECTAL ONE (12:59)
--- NOTE | 2018-03-12 13:08 | P.PNCC ---
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 Hooper and Dr. Pineda (completed March 2015) with followup imaging negative for residual disease (05/2015, 09/2015). She was recently admitted to [facility] hospitalist service on after she presented with anemia with hemoglobin of 6.3, dysphagia and failure to thrive. She previously had G/J tube that became dislodged in May and she had been drinking nutritional shakes at home but had progressive difficulty with swallowing and developed cachexia. Modified barium swallow confirmed aspiration and she underwent laparoscopic GJ placement [address] Kraus. She had been n.p.o. and receiving continuous jejunal tube feeds when she developed severe respiratory distress and hypoxia requiring intubation 02/22/18. She had obvious evidence of aspiration on intubation. CT neck showed no e/o laryngeal mass. She was evaluated by ENT and underwent laryngoscopy that showed no evidence of disease recurrence and findings were consistent with radiation induced scarring. She was extubated 02/25. She was ultimately discharged to half-way 03/03/18. She again presented to [facility] [place] [place] ED with respiratory failure. Reportedly sats were in the 50s upon their arrival. She was intubated at the scene. Reportedly a large amount of secretions suctioned out post intubation. White blood cell count was 14. She was hypotensive at [place] where she was administered 2 L normal saline bolus. ED physician then placed right femoral central line after unsuccessful placement right IJ central line. Levophed drip was started. Her son states he is a physician's bilingual office assistant in the field of critical care and expresses frustration with recurrent respiratory failure. States she had jejunal tube feeds running at goal but had not taken anything p.o. Requests ENT reconsultation for recommendations for tracheostomy. 03/08: Afebrile. Resting in bed comfortably in no acute distress. Nods head appropriately to questions. Moves all 4 extremities spontaneously. Tube feeds currently at 40 cc an hour. Remains on norepinephrine 8 mg/min. Discussed with Alireza Whitten/healthcare proxy and son. Requesting tracheostomy. He will be here this afternoon discussed with mother and will consult once verified consent. 03/09: Afebrile. Remains on norepinephrine drip at 7 mcg/min. Consent for percutaneous tracheostomy. Consult placed. Appears comfortable. Received 1 unit PRBCs overnight for a total of 2 since admission. Repeat hemoglobin pending. 03/10: Resting comfortably in bed. Previously requesting DNR status and changing her mind. Emotional. But the headache no requesting glasses as she is severely nearsighted and eardrops for her right ear. These been ordered and addressed. Plan for percutaneous tracheostomy at noon with Dr. Kraus 03/11 n.p.o. after midnight except for medications 03/11: Patient has glasses on is feeling better. Plan for percutaneous tracheostomy at noon today. No bowel movement since admission. Subjective: 03/12: Resting in room. Very emotional. Will attempt CPAP trials today. Tube feeds at goal. No bowel movement since admission. See orders for additional bowel medications. Denies abdominal pain. KUB nonspecific bowel gas pattern. Nontender. Objective Vital Signs / I&O: Vital Signs 03/11/18 14:00 03/11/18 14:03 03/11/18 14:05 Temperature Pulse Rate 56 L 55 L 56 L Respiratory Rate 15 15 15 Blood Pressure 116/58 L 118/58 L 117/58 L Pulse Oximetry 100 100 100 03/11/18 14:07 03/11/18 14:10 03/11/18 14:12 Temperature Pulse Rate 55 L 56 L 54 L Respiratory Rate 15 15 15 Blood Pressure 121/56 L 115/58 L 124/58 L Pulse Oximetry 100 100 100 03/11/18 14:15 03/11/18 14:18 03/11/18 14:20 Temperature Pulse Rate 53 L 58 L 56 L Respiratory Rate 15 15 15 Blood Pressure 116/56 L 123/58 L 123/59 L Pulse Oximetry 100 100 100 03/11/18 14:23 03/11/18 14:25 03/11/18 14:27 Temperature Pulse Rate 55 L 53 L 53 L Respiratory Rate 15 15 15 Blood Pressure 119/56 L 117/56 L 119/58 L Pulse Oximetry 100 100 100 03/11/18 14:30 03/11/18 14:33 03/11/18 14:35 Temperature Pulse Rate 54 L 76 54 L Respiratory Rate 15 18 15 Blood Pressure 127/58 L 127/60 134/64 Pulse Oximetry 100 100 100 03/11/18 14:38 03/11/18 14:40 03/11/18 14:43 Temperature Pulse Rate 51 L 51 L 52 L Respiratory Rate 15 15 15 Blood Pressure 121/60 132/60 131/59 L Pulse Oximetry 100 100 100 03/11/18 14:45 03/11/18 14:47 03/11/18 14:50 Temperature Pulse Rate 51 L 51 L 51 L Respiratory Rate 15 15 15 Blood Pressure 123/60 121/59 L 122/59 L Pulse Oximetry 100 100 100 03/11/18 14:53 03/11/18 14:54 03/11/18 15:00 Temperature 98.4 F Pulse Rate 51 L 51 L 50 L Respiratory Rate 16 15 15 Blood Pressure 125/61 125/61 125/60 Pulse Oximetry 100 100 100 03/11/18 15:06 03/11/18 15:16 03/11/18 15:18 Temperature 97.9 F 98.7 F Pulse Rate 57 L 51 L 50 L Respiratory Rate 15 15 15 Blood Pressure 125/60 125/58 L 125/58 L Pulse Oximetry 100 100 100 03/11/18 15:30 03/11/18 15:31 03/11/18 15:45 Temperature 98.7 F Pulse Rate 50 L 51 L Respiratory Rate 15 15 15 Blood Pressure 125/61 125/61 Pulse Oximetry 100 100 100 03/11/18 15:58 03/11/18 16:00 03/11/18 16:16 Temperature 98.0 F 98.1 F 98.0 F Pulse Rate 50 L 52 L 47 L Respiratory Rate 16 15 15 Blood Pressure 147/63 H 137/65 137/65 Pulse Oximetry 100 100 100 03/11/18 16:31 03/11/18 17:00 03/11/18 17:30 Temperature 98.1 F 98.2 F Pulse Rate 49 L 46 L 45 L Respiratory Rate 15 15 15 Blood Pressure 135/64 139/63 128/60 Pulse Oximetry 100 100 100 03/11/18 17:45 03/11/18 18:00 03/11/18 18:14 Temperature Pulse Rate 48 L 46 L 48 L Respiratory Rate 15 15 15 Blood Pressure 129/63 134/65 Pulse Oximetry 100 100 100 03/11/18 18:15 03/11/18 20:00 03/11/18 20:56 Temperature 98.0 F Pulse Rate 55 L 50 L Respiratory Rate 15 15 Blood Pressure 133/63 130/58 L Pulse Oximetry 100 100 03/11/18 22:00 03/11/18 23:50 03/12/18 00:00 Temperature 98.0 F Pulse Rate 50 L 47 L 50 L Respiratory Rate 15 15 Blood Pressure 132/62 Pulse Oximetry 100 100 03/12/18 02:00 03/12/18 03:53 03/12/18 04:00 Temperature 98.3 F Pulse Rate 48 L 59 L 55 L Respiratory Rate 25 H 24 Blood Pressure 121/59 L Pulse Oximetry 100 100 03/12/18 06:00 03/12/18 07:00 03/12/18 07:34 Temperature Pulse Rate 55 L 54 L Respiratory Rate 33 H 26 H Blood Pressure Pulse Oximetry 100 03/12/18 08:00 03/12/18 09:00 03/12/18 10:00 Temperature 98.2 F Pulse Rate 54 L 54 L 63 Respiratory Rate 15 Blood Pressure 132/63 Pulse Oximetry 100 03/12/18 11:00 03/12/18 11:16 03/12/18 12:00 Temperature 98.9 F Pulse Rate 59 L 15 L Respiratory Rate 19 16 15 Blood Pressure 121/57 L Pulse Oximetry 100 100 Intake & Output 03/11/18 03/12/18 03/12/18 18:59 06:59 18:59 Intake Total 400 / 400 715 / 715 Output Total 1150 / 1150 750 / 750 Balance -750 / -750 -750 / -750 715 / 715 Weight 65.1 kg Intake: IV 400 / 400 715 / 715 Maxipime Inj 2,000 MG In NS Inj 200 / 200 200 / 200 100 ML @ 200 mls/hr IV.SIG Q12H ANN Rx#:[id number] Diflucan 200 mg Premix Bag 100 200 / 200 ML @ 100 mls/hr IV.SIG Q24H ANN Rx#:[id number] Vancomycin Inj 1,500 MG In NS 515 / 515 Inj 500 ML @ 250 mls/hr IV.SIG Q24H ANN Rx#:[id number] Intake (Blood Product) Amt 0 / 0 0 / 0 Rbc As-3 Leukoreduced Unit 0 / 0 0 / 0 [id number] Output: Urine 900 / 900 Urine Amount (Catheter) 350 / 350 Female External 350 / 350 Gastric Drainage 250 / 250 400 / 400 Pre-Hospital Gastrojejunostomy 250 / 250 400 / 400 Tube Other: # Bowel Movements 0 Result Diagrams: 03/12/18 03:42 03/12/18 03:42 Other Results: Microbiology 03/09/18 11:15 Blood - Peripheral Aerobic Blood Culture - Preliminary No growth in 3 days 03/09/18 11:15 Blood - Peripheral Anaerobic Blood Culture - Preliminary No growth in 3 days 03/09/18 11:07 Blood - Peripheral Aerobic Blood Culture - Preliminary No growth in 3 days 03/09/18 11:07 Blood - Peripheral Anaerobic Blood Culture - Preliminary No growth in 3 days 03/06/18 19:05 Blood - Peripheral Aerobic Blood Culture - Final No growth in 5 days 03/06/18 19:05 Blood - Peripheral Anaerobic Blood Culture - Final No growth in 5 days 03/06/18 18:45 Blood - Peripheral Aerobic Blood Culture - Final Staphylococcus hominis-hominis 03/06/18 18:45 Blood - Peripheral Anaerobic Blood Culture - Final No growth in 5 days 03/08/18 05:10 Sputum - Endotracheal Gram Stain - Final 03/08/18 05:10 Sputum - Endotracheal Sputum Culture - Final S. aureus MRSA 03/06/18 18:00 Catheterized Urine Urine Culture - Final S. aureus MRSA Caitlyn tropicalis Imaging: Chest X-Ray 03/06/18 17:56 CONCLUSION: 1. ET tube in good position. 2. Interval development of nonconsolidative airspace opacities in the central lungs bilaterally suggesting pulmonary edema. 3. Stable left lower lobe consolidation. Chest X-Ray 03/07/18 05:35 CONCLUSION: 1. Modestly improved bibasilar consolidation. 2. Small left pleural effusion not significantly changed. 3. New left IJ central venous catheter with tip at the atriocaval junction. No pneumothorax. Chest X-Ray 03/08/18 00:00 CONCLUSION: Decreased mild bilateral pulmonary parenchymal opacity and small left pleural effusion. Chest X-Ray 03/09/18 06:00 CONCLUSION: Mild bilateral lower lung opacity unchanged. Chest X-Ray 03/10/18 06:00 CONCLUSION: Stable bibasilar atelectatic changes. Chest X-Ray 03/11/18 12:14 CONCLUSION: Interval tracheostomy tube placement. Persistent bibasilar consolidations. Abdomen X-Ray 03/12/18 00:00 CONCLUSION: Unremarkable study. Objective Remarks: GENERAL: 73-year-old female currently resting in bed in no acute distress status post percutaneous tracheostomy with no bleeding SKIN: Warm and dry. HEAD: Atraumatic. Normocephalic. EYES: Pupils equal and round. No scleral icterus. No injection or drainage. Glasses are in place. Patient is nearsighted ENT: No nasal bleeding or discharge. Mucous membranes pink and moist. Orotracheally intubated NECK: Trachea midline. No JVD. Left IJ CVL has been removed without signs of hematoma. #8 Shiley percutaneous ostomy is clean dry and intact without bleeding CARDIOVASCULAR: Bradycardic, RR. S1, S2. No S4 without murmur RESPIRATORY: Few scattered crackles appreciated bases bilaterally. No wheezes. Breath sounds equal bilaterally. GASTROINTESTINAL: Abdomen soft, non-tender, nondistended. Hepatic and splenic margins not palpable. GJ tube intact without signs of bleeding or erythema. MUSCULOSKELETAL: Extremities with trace bilateral upper extremity edema. No obvious deformities. NEUROLOGICAL: Awake and alert. Following commands on the ventilator. Moves all 4 extremities spontaneously. Assessment and Plan - Assessment and Plan Plan: NEURO/PSYCH: Adjustment disorder with depression Allergic rhinitis Fentanyl 50 mcg every hour/Versed 2 mg IV every 15 minutes bolus as needed for sedation/analgesia while intubated Target RASS 0 Continue escitalopram 20 mg daily/home medication via G-tube Acetaminophen 650 mg every 6 hours by G-tube for fever Continue cetirizine 10 mg daily for allergic rhinitis RESP: Acute respiratory failure -now vent dependent secondary to aspiration 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 Noted initial CXR with pulm edema pattern, may be secondary to negative pressure pulm edema (exacerbated by low oncotic pressure) RUL spiculated lung mass on CT chest -follow-up with Dr. Martin [facility] 16/450/08/23/39 CPAP trials as tolerated Ventilator bundle Albuterol/ipratropium aerosols every 4 hours with albuterol aerosols every 2 hours as needed for dyspnea Methylprednisolone succinate 40 mg IV every [address] Kunz discussed with son. Agreed with tracheostomy option see his note. Status post percutaneous tracheostomy Dr. Kraus 03/11 at noon. Resume [address] D'Sorensen/pulmonary following CV: Hypotension -possibly sepsis with elevated pro-calcitonin Chronic systolic heart failure ejection fraction 35% 2D echo 02/23/18 ejection fraction 35%, anterior septal hypokinesis. Biatrial dilation. Serial troponins/EKG essentially negative Lactic acid normal. IV fluids discontinued. GI: Severe pharyngeal phase dysphagia -diagnosed by modified barium swallow 02/05/18 Proximal esophageal Stricture, radiation induced Rendon's esophagus GERD Severe chronic protein energy malnutrition Hypoalbuminemia G/J tube in place flush with 60 cc free water every 8 hours Vital 1.5 55/hr per nutrition recs via jejunostomy. G tube to gravity with medicines not being induced. Pt known to Dr. Aly, with esophageal dilation in the past. Have been planning outpatient esophageal dilation. Plan outpatient/upper esophageal stricture dilatation if patient agrees within the next several days/weeks. Lansoprazole for GI prophylaxis. On omeprazole 20 mg daily at home Docusate sodium/senna 1 tablet twice daily for bowel regimen. Add polythene glycol 17 g twice daily and lactulose 30 cc twice daily on 03/11.. Methylnaltrexone 12 mg subcu 1 now. Fleets enema 118 mg per rectum 1 now. FEN/RENAL: Acute kidney injury Monitor intake and output. Monitor electrolytes and replace as indicated per electrolyte replacement protocol Creatinine currently 1.4 and oscillates ID: MRSA/Caitlyn tropicalis UTI Aspiration pneumonitis/pneumonia Will cover with cefepime 2 g IV every 8 hours day #6. Metronidazole 500 mg every 6 hours day #5 in vancomycin day #4 to cover for anaerobic coverage. Diflucan 200 mg daily day #4 for Caitlyn tropicalis UTI Mupirocin 2% to nares twice daily for MRSA nares Pertinent cultures Recheck blood cultures 2 03/09 no growth today 03/08 -sputum -MRSA 03/06 -blood cultures 2 -likely contaminant staph hominis- 03/06 -UA -MRSA/Caitlyn tropicalis HEME: Leukocytosis Normocytic anemia History of laryngeal cancer Followed by Dr. Pineda for followup h/o laryngeal cancer. Prior radiation and chemo completed 03/2015. Transfuse 2 units PRBCs since admission ENDO: Hypothyroidism Sliding scale insulin with insulin aspart with Accu-Cheks every 6 hours to maintain glycemic Continue levothyroxine 100 mcg by tube daily PROPH: SCDs for DVT prophylaxis. Heparin subcu. Lansoprazole for stress ulcer prophylaxis and history of GERD. ACCESS: Left IJ CVL placed 03/07. Removed 03/12. Peripheral IVs for now. Level 2 follow-up
--- NOTE | 2018-03-12 17:06 | P.PNGS ---
Subjective Patient reports: feels better (vent setting decreased, tolerating tf) Physical Exam Vital signs: Vital Signs 03/11/18 17:30 03/11/18 17:45 03/11/18 18:00 Temperature Pulse Rate 45 L 48 L 46 L Respiratory Rate 15 15 15 Blood Pressure 128/60 129/63 134/65 Pulse Oximetry 100 100 100 03/11/18 18:14 03/11/18 18:15 03/11/18 20:00 Temperature 98.0 F Pulse Rate 48 L 55 L Respiratory Rate 15 15 Blood Pressure 133/63 130/58 L Pulse Oximetry 100 100 03/11/18 20:56 03/11/18 22:00 03/11/18 23:50 Temperature Pulse Rate 50 L 50 L 47 L Respiratory Rate 15 15 Blood Pressure Pulse Oximetry 100 100 03/12/18 00:00 03/12/18 02:00 03/12/18 03:53 Temperature 98.0 F Pulse Rate 50 L 48 L 59 L Respiratory Rate 15 25 H Blood Pressure 132/62 Pulse Oximetry 100 100 03/12/18 04:00 03/12/18 06:00 03/12/18 07:00 Temperature 98.3 F Pulse Rate 55 L 55 L 54 L Respiratory Rate 24 33 H Blood Pressure 121/59 L Pulse Oximetry 100 03/12/18 07:34 03/12/18 08:00 03/12/18 09:00 Temperature 98.2 F Pulse Rate 54 L 54 L Respiratory Rate 26 H 15 Blood Pressure 132/63 Pulse Oximetry 100 100 03/12/18 10:00 03/12/18 11:00 03/12/18 11:16 Temperature Pulse Rate 63 59 L Respiratory Rate 19 16 Blood Pressure Pulse Oximetry 100 03/12/18 12:00 03/12/18 14:00 03/12/18 15:00 Temperature 98.9 F Pulse Rate 15 L 52 L 59 L Respiratory Rate 15 37 H Blood Pressure 121/57 L Pulse Oximetry 100 03/12/18 15:09 03/12/18 16:00 Temperature 98.9 F Pulse Rate 54 L Respiratory Rate 29 H 16 Blood Pressure 125/59 L Pulse Oximetry 100 Intake & Output 03/11/18 03/12/18 03/12/18 18:59 06:59 18:59 Intake Total 400 / 400 715 / 715 Output Total 1150 / 1150 750 / 750 Balance -750 / -750 -750 / -750 715 / 715 Weight 65.1 kg Intake: IV 400 / 400 715 / 715 Maxipime Inj 2,000 MG In NS Inj 200 / 200 200 / 200 100 ML @ 200 mls/hr IV.SIG Q12H ANN Rx#:[id number] Diflucan 200 mg Premix Bag 100 200 / 200 ML @ 100 mls/hr IV.SIG Q24H ANN Rx#:[id number] Vancomycin Inj 1,500 MG In NS 515 / 515 Inj 500 ML @ 250 mls/hr IV.SIG Q24H ANN Rx#:[id number] Intake (Blood Product) Amt 0 / 0 0 / 0 Rbc As-3 Leukoreduced Unit 0 / 0 0 / 0 [id number] Output: Urine 900 / 900 Urine Amount (Catheter) 350 / 350 Female External 350 / 350 Gastric Drainage 250 / 250 400 / 400 Pre-Hospital Gastrojejunostomy 250 / 250 400 / 400 Tube Other: Date of Last Bowel Movement 03/12/18 # Bowel Movements 0 1 - Routine Neck Exam Present: supple (trach in place scant dry blood) - Routine Abdominal Exam Present: soft (g tube c/d/i) - Urinary Catheter Management Female External Cath placed during this visit: no Indwelling Urethral Catheter Cath placed during this visit: yes, but has since been removed by the nurse Reason for continuing: Hourly intake/output Insertion date: 03/06/18 Insertion time: 18:00 Removal date: 03/10/18 Removal time: 17:00 Assessment and Plan - Plan HX of scc oropharnyx s/p trach for acute respiratory failure POD 1 Doing well PLAN tf via g/j tube Wean vent per isc continue medical mgnt surgery will s/o reconsult if needed
--- NOTE | 2018-03-12 18:54 | P.PN ---
Subjective Interval history: Doing well with new trach . Unable to go on T Bar yet. On FIo2 35 % with CPAP/PSV. Trach secretions bloody. Physical Exam Vital signs: Vital Signs 03/11/18 20:00 03/11/18 20:56 03/11/18 22:00 Temperature 98.0 F Pulse Rate 55 L 50 L 50 L Respiratory Rate 15 15 Blood Pressure 130/58 L Pulse Oximetry 100 100 03/11/18 23:50 03/12/18 00:00 03/12/18 02:00 Temperature 98.0 F Pulse Rate 47 L 50 L 48 L Respiratory Rate 15 15 Blood Pressure 132/62 Pulse Oximetry 100 100 03/12/18 03:53 03/12/18 04:00 03/12/18 06:00 Temperature 98.3 F Pulse Rate 59 L 55 L 55 L Respiratory Rate 25 H 24 Blood Pressure 121/59 L Pulse Oximetry 100 100 03/12/18 07:00 03/12/18 07:34 03/12/18 08:00 Temperature 98.2 F Pulse Rate 54 L 54 L Respiratory Rate 33 H 26 H 15 Blood Pressure 132/63 Pulse Oximetry 100 100 03/12/18 09:00 03/12/18 10:00 03/12/18 11:00 Temperature Pulse Rate 54 L 63 59 L Respiratory Rate 19 Blood Pressure Pulse Oximetry 03/12/18 11:16 03/12/18 12:00 03/12/18 14:00 Temperature 98.9 F Pulse Rate 15 L 52 L Respiratory Rate 16 15 Blood Pressure 121/57 L Pulse Oximetry 100 100 03/12/18 15:00 03/12/18 15:09 03/12/18 16:00 Temperature 98.9 F Pulse Rate 59 L 54 L Respiratory Rate 37 H 29 H 16 Blood Pressure 125/59 L Pulse Oximetry 100 03/12/18 18:00 Temperature Pulse Rate 63 Respiratory Rate Blood Pressure Pulse Oximetry Intake & Output 03/11/18 03/12/18 03/12/18 18:59 06:59 18:59 Intake Total 400 / 400 1351 / 1351 Output Total 1150 / 1150 750 / 750 1835 / 1835 Balance -750 / -750 -750 / -750 -484 / -484 Weight 65.1 kg Intake: IV 400 / 400 815 / 815 Maxipime Inj 2,000 MG In NS Inj 200 / 200 200 / 200 100 ML @ 200 mls/hr IV.SIG Q12H [facility] Rx#:[id number] Diflucan 200 mg Premix Bag 100 200 / 200 100 / 100 ML @ 100 mls/hr IV.SIG Q24H [facility] Rx#:[id number] Vancomycin Inj 1,500 MG In NS 515 / 515 Inj 500 ML @ 250 mls/hr IV.SIG Q24H [facility] Rx#:[id number] Tube Feeding 416 / 416 Water Bolus Amount 120 / 120 Intake (Blood Product) Amt 0 / 0 0 / 0 Rbc As-3 Leukoreduced Unit 0 / 0 0 / 0 [id number] Output: Urine 900 / 900 1110 / 1110 Urine Amount (Catheter) 350 / 350 Female External 350 / 350 Gastric Drainage 250 / 250 400 / 400 725 / 725 Pre-Hospital Gastrojejunostomy 250 / 250 400 / 400 725 / 725 Tube Other: Date of Last Bowel Movement 03/12/18 # Bowel Movements 0 1 Narrative: GENERAL: Elderly W/F on vent support. has a Trach tube SKIN: Warm and dry. HEAD: Normocephalic.Alert and responds well. EYES: No scleral icterus. No injection or drainage. NECK: Supple, trachea midline. No JVD or lymphadenopathy. CARDIOVASCULAR: Irregular rate and rhythm without murmurs, gallops, or rubs. RESPIRATORY: Breath sounds equal bilaterally. Occ Crackles at bases. and exp wheeze. GASTROINTESTINAL: Abdomen soft, non-tender, nondistended. MUSCULOSKELETAL: No cyanosis, or edema. BACK: Nontender without obvious deformity. alert and moves all. - Urinary Catheter Management Female External Cath placed during this visit: no Indwelling Urethral Catheter Cath placed during this visit: yes, but has since been removed by the nurse Reason for continuing: Hourly intake/output Insertion date: 03/06/18 Insertion time: 18:00 Removal date: 03/10/18 Removal time: 17:00 Results - Labs CBC & Chem 7: 03/12/18 03:42 03/12/18 03:42 Laboratory Results - last 24 hr 03/11/18 03/11/18 03/11/18 12:52 21:15 23:54 WBC RBC Hgb 9.1 L Hct 26.2 L MCV MCH MCHC RDW Plt Count MPV Prelim Diff (Auto) Neut % (Auto) Lymph % (Auto) Sevier % (Auto) Eos % (Auto) Baso % (Auto) Neut # (Auto) Lymph # (Auto) Sevier # (Auto) Eos # (Auto) Baso # (Auto) WBC Differential Seg Neuts % (Manual) Band Neuts % (Manual) Lymphocytes % (Manual) Monocytes % (Manual) Metamyelocytes % (Man) Abs Neuts (Manual) Differential Comment Platelet Estimate Platelet Morphology Ovalocytes Sodium Potassium Chloride Carbon Dioxide Anion Gap BUN Creatinine Estimated GFR POC Glucose 156 H Random Glucose Calcium Phosphorus Magnesium MTS Gel Crossmatch See Detail 03/12/18 03/12/18 03/12/18 03:42 03:42 05:37 WBC 9.3 RBC 3.14 L Hgb 9.9 L Hct 29.2 L MCV 92.9 D MCH 31.4 MCHC 33.8 RDW 16.9 Plt Count 208 MPV 11.1 H Prelim Diff (Auto) Slide review pending Neut % (Auto) 76.5 H Lymph % (Auto) 7.2 L Sevier % (Auto) 15.4 H Eos % (Auto) 0.1 Baso % (Auto) 0.8 Neut # (Auto) 7.1 Lymph # (Auto) 0.7 L Sevier # (Auto) 1.4 H Eos # (Auto) 0.0 Baso # (Auto) 0.1 WBC Differential Manual diff final Seg Neuts % (Manual) 69 Band Neuts % (Manual) 4 Lymphocytes % (Manual) 3 L Monocytes % (Manual) 15 H Metamyelocytes % (Man) 9 H Abs Neuts (Manual) 7.6 Differential Comment . Platelet Estimate Normal Platelet Morphology Enlarged H Ovalocytes 1+ H Sodium 142 Potassium 4.4 D Chloride 107 Carbon Dioxide 23.3 Anion Gap 12 BUN 45 H Creatinine 1.41 H Estimated GFR 37 L POC Glucose 166 H Random Glucose 153 H Calcium 8.3 L Phosphorus 3.8 Magnesium 2.3 MTS Gel Crossmatch 03/12/18 03/12/18 11:57 17:35 WBC RBC Hgb Hct MCV MCH MCHC RDW Plt Count MPV Prelim Diff (Auto) Neut % (Auto) Lymph % (Auto) Sevier % (Auto) Eos % (Auto) Baso % (Auto) Neut # (Auto) Lymph # (Auto) Sevier # (Auto) Eos # (Auto) Baso # (Auto) WBC Differential Seg Neuts % (Manual) Band Neuts % (Manual) Lymphocytes % (Manual) Monocytes % (Manual) Metamyelocytes % (Man) Abs Neuts (Manual) Differential Comment Platelet Estimate Platelet Morphology Ovalocytes Sodium Potassium Chloride Carbon Dioxide Anion Gap BUN Creatinine Estimated GFR POC Glucose 154 H 151 H Random Glucose Calcium Phosphorus Magnesium MTS Gel Crossmatch Microbiology 03/09/18 11:15 Blood - Peripheral Aerobic Blood Culture - Preliminary No growth in 3 days 03/09/18 11:15 Blood - Peripheral Anaerobic Blood Culture - Preliminary No growth in 3 days 03/09/18 11:07 Blood - Peripheral Aerobic Blood Culture - Preliminary No growth in 3 days 03/09/18 11:07 Blood - Peripheral Anaerobic Blood Culture - Preliminary No growth in 3 days - Imaging Impressions Abdomen X-Ray 03/12/18 00:00 CONCLUSION: Unremarkable study. 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 Cont on CPAP /PSV 5/10 FIO2 30% 2. Trach care and lavage PRN 3. Continue Duo nebs q6h 4. CBC,BMP in am 5. solumedrol 40 mg IV daily 6. Stop sedation. 7. Tube feeds at 60 CC. 8. T Bar trial if tolerated in am (7) Aspiration pneumonia Qualifiers: Aspiration pneumonia type: unspecified Laterality: unspecified laterality Lung location: unspecified part of lung Qualified Code(s): J69.0 - Pneumonitis due to inhalation of food and vomit
[2018-03-12] MEDS ORDERED: Pharmacy Ordered Lab Info OTHER ONE (19:45)
[2018-03-12] MEDS: Heparin - SQ 10,000 UNITS/ML Vial SQ SCH (22:06)
[2018-03-12] MEDS: Vancomycin Inj 1,500 MG in Sodium Chlor 0.9% Inj 500 ML IV.SIG SCH (22:06)
[2018-03-13] MEDS: Insulin NovoLOG Aspart Correctional Sugar Inj SQ SCH ×4 (01:56→18:20)
[2018-03-13] MEDS: Oral Hygiene Kit OROPHARYNG SCH ×4 (01:57→17:12)
[2018-03-13] MEDS: Hypromellose 0.3% Opth Gel 10 GM Bottle EACH EYE SCH ×3 (01:57→17:13)
[2018-03-13] MEDS: metroNIDAZOLE 500 MG Tablet PO SCH ×4 (01:58→18:20)
[2018-03-13] MEDS: Levothyroxine 100 MCG Tablet NG/OG SCH (05:08)
[2018-03-13] MEDS: fentaNYL Citrate Inj 100 MCG/2 ML Ampul IV.PUSH PRN ×2 (05:34→17:58)
[2018-03-13 06:41] LABS: Hematocrit 26.4 % (35.0-46.0); Hemoglobin 9.1 gm/dL (11.6-15.3); Mean Corpuscular HGB Conc 34.6 % (32.0-36.0); Mean Corpuscular Hemoglobin 31.9 pg (27.0-34.0); Mean Corpuscular Volume 92.2 fL (80.0-100.0); Mean Platelet Volume 11.5 fL (7.0-11.0); Platelet Count 180 th/mm3 (150-450); Red Blood Count 2.86 mil/mm3 (4.00-5.30); Red Cell Distribution Width 16.6 % (11.6-17.2); White Blood Count 9.3 th/mm3 (4.0-11.0)
[2018-03-13 07:12] LABS: Calcium 7.7 mg/dL (8.5-10.1); Carbon Dioxide 23.9 meq/L (21.0-32.0); Phosphorus 2.9 mg/dL (2.5-4.9)
[2018-03-13 08:21] LABS: Blast Cells 1 % (0-0); Lymphocytes 10 % (9-44); Metamyelocytes 9 % (0-1); Monocytes 11 % (0-8)
[2018-03-13 08:22] LABS: Platelet Estimate Normal (Normal); RBC Morphology Normal (Normal)
--- NOTE | 2018-03-13 08:44 | P.PNGI ---
Subjective Interval history: Resting comfortably on the vent. No overt GI bleeding. Not eating at present-- on tube feedings Physical Exam Vital signs: Vital Signs 03/12/18 09:00 03/12/18 10:00 03/12/18 11:00 Temperature Pulse Rate 54 L 63 59 L Respiratory Rate 19 Blood Pressure Pulse Oximetry 03/12/18 11:16 03/12/18 12:00 03/12/18 14:00 Temperature 98.9 F Pulse Rate 15 L 52 L Respiratory Rate 16 15 Blood Pressure 121/57 L Pulse Oximetry 100 100 03/12/18 15:00 03/12/18 15:09 03/12/18 16:00 Temperature 98.9 F Pulse Rate 59 L 54 L Respiratory Rate 37 H 29 H 16 Blood Pressure 125/59 L Pulse Oximetry 100 03/12/18 18:00 03/12/18 19:30 03/12/18 20:00 Temperature 98.6 F Pulse Rate 63 55 L 59 L Respiratory Rate 20 41 H Blood Pressure 124/56 L Pulse Oximetry 100 100 03/12/18 22:00 03/12/18 22:59 03/13/18 00:00 Temperature 98.3 F Pulse Rate 79 63 73 Respiratory Rate 26 H 38 H Blood Pressure 115/56 L Pulse Oximetry 97 03/13/18 00:15 03/13/18 02:00 03/13/18 03:47 Temperature Pulse Rate 57 L 54 L Respiratory Rate 20 13 Blood Pressure Pulse Oximetry 99 100 03/13/18 04:00 03/13/18 06:00 03/13/18 07:42 Temperature 98.4 F Pulse Rate 56 L 59 L 54 L Respiratory Rate 21 16 Blood Pressure 129/59 L Pulse Oximetry 97 100 Intake & Output 03/12/18 03/13/18 03/13/18 18:59 06:59 18:59 Intake Total 1351 / 1351 1124 / 1124 Output Total 1835 / 1835 825 / 825 Balance -484 / -484 299 / 299 Weight 63.8 kg Intake: IV 815 / 815 615 / 615 Maxipime Inj 2,000 MG In NS Inj 200 / 200 100 / 100 100 ML @ 200 mls/hr IV.SIG Q12H [facility] Rx#:[id number] Diflucan 200 mg Premix Bag 100 100 / 100 ML @ 100 mls/hr IV.SIG Q24H [facility] Rx#:[id number] Vancomycin Inj 1,500 MG In NS 515 / 515 515 / 515 Inj 500 ML @ 250 mls/hr IV.SIG Q24H [facility] Rx#:[id number] Tube Feeding 416 / 416 509 / 509 Water Bolus Amount 120 / 120 Intake (Blood Product) Amt 0 / 0 Rbc As-3 Leukoreduced Unit 0 / 0 [id number] Output: Urine 1110 / 1110 500 / 500 Gastric Drainage 725 / 725 325 / 325 Pre-Hospital Gastrojejunostomy 725 / 725 325 / 325 Tube Other: # Incontinent Voids 2 Date of Last Bowel Movement 03/12/18 03/12/18 # Bowel Movements 1 - Constitutional no acute distress - Routine Neck Exam Present: supple - Routine Abdominal Exam Present: soft, normoactive bowel sounds - Routine Extremities Exam Absent: edema - Routine Skin Exam Present: intact. Absent: cyanosis - Urinary Catheter Management Female External Cath placed during this visit: no Indwelling Urethral Catheter Cath placed during this visit: yes, but has since been removed by the nurse Reason for continuing: Hourly intake/output Insertion date: 03/06/18 Insertion time: 18:00 Removal date: 03/10/18 Removal time: 17:00 Results - Labs CBC & Chem 7: 03/13/18 05:39 03/13/18 05:37 Laboratory Results - last 24 hr 03/12/18 03/12/18 03/12/18 03:42 11:57 17:35 WBC RBC Hgb Hct MCV MCH MCHC RDW Plt Count MPV Prelim Diff (Auto) WBC Differential Manual diff final Seg Neuts % (Manual) 69 Band Neuts % (Manual) 4 Lymphocytes % (Manual) 3 L Monocytes % (Manual) 15 H Basophils % (Manual) Metamyelocytes % (Man) 9 H Blast Cells % (Manual) Abs Neuts (Manual) 7.6 Differential Comment Platelet Estimate Normal Platelet Morphology Enlarged H RBC Morphology Ovalocytes 1+ H Sodium Potassium Chloride Carbon Dioxide Anion Gap BUN Creatinine Estimated GFR POC Glucose 154 H 151 H Random Glucose Calcium Phosphorus Magnesium Vancomycin Trough 03/12/18 03/12/18 03/13/18 22:30 23:34 05:25 WBC RBC Hgb Hct MCV MCH MCHC RDW Plt Count MPV Prelim Diff (Auto) WBC Differential Seg Neuts % (Manual) Band Neuts % (Manual) Lymphocytes % (Manual) Monocytes % (Manual) Basophils % (Manual) Metamyelocytes % (Man) Blast Cells % (Manual) Abs Neuts (Manual) Differential Comment Platelet Estimate Platelet Morphology RBC Morphology Ovalocytes Sodium Potassium Chloride Carbon Dioxide Anion Gap BUN Creatinine Estimated GFR POC Glucose 134 H 159 H Random Glucose Calcium Phosphorus Magnesium Vancomycin Trough 30.3 H 03/13/18 03/13/18 05:37 05:39 WBC 9.3 RBC 2.86 L Hgb 9.1 L Hct 26.4 L MCV 92.2 MCH 31.9 MCHC 34.6 RDW 16.6 Plt Count 180 MPV 11.5 H Prelim Diff (Auto) Manual diff required WBC Differential Manual diff final Seg Neuts % (Manual) 66 Band Neuts % (Manual) 2 Lymphocytes % (Manual) 10 Monocytes % (Manual) 11 H Basophils % (Manual) 1 Metamyelocytes % (Man) 9 H Blast Cells % (Manual) 1 H Abs Neuts (Manual) 7.2 Differential Comment . Platelet Estimate Normal Platelet Morphology Enlarged H RBC Morphology Normal Ovalocytes Sodium 143 Potassium 4.0 Chloride 108 H Carbon Dioxide 23.9 Anion Gap 11 BUN 42 H Creatinine 1.33 H Estimated GFR 39 L POC Glucose Random Glucose 140 H Calcium 7.7 L Phosphorus 2.9 Magnesium 2.0 Vancomycin Trough Microbiology 03/09/18 11:15 Blood - Peripheral Aerobic Blood Culture - Preliminary No growth in 3 days 03/09/18 11:15 Blood - Peripheral Anaerobic Blood Culture - Preliminary No growth in 3 days 03/09/18 11:07 Blood - Peripheral Aerobic Blood Culture - Preliminary No growth in 3 days 03/09/18 11:07 Blood - Peripheral Anaerobic Blood Culture - Preliminary No growth in 3 days Assessment and Plan - Plan Impression 1. Dysphasia -patient has a feeding tube 2. 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
[2018-03-13] MEDS: Heparin - SQ 10,000 UNITS/ML Vial SQ SCH ×2 (08:45→21:32)
[2018-03-13] MEDS: MethylPREDNISolone Sod Succinate Inj 40 MG/ML Vial IV.PUSH SCH (08:45)
[2018-03-13] MEDS: Senna/Docusate Sodium 8.6/50 MG Tablet PO SCH ×2 (08:45→21:32)
[2018-03-13] MEDS: Mupirocin 2% Nasal Oint Topical Syringe EACH NARE SCH ×2 (08:45→21:32)
[2018-03-13] MEDS: Chlorhexidine 0.12% Oral Kit 15 ML UDC OROPHARYNG SCH ×2 (08:46→19:21)
[2018-03-13] MEDS: Ascorbic Acid 500 MG Tablet G-TUBE SCH ×2 (08:46→21:32)
[2018-03-13] MEDS: Carbamide Peroxide 6.5% Otic Drops 15 ML Bottle EACH EAR SCH ×2 (08:47→21:34)
[2018-03-13] MEDS: Polyethylene Glycol 3350 17 GM Packet PO SCH ×3 (08:47→21:40)
[2018-03-13] MEDS ORDERED: Vancomycin Consult Pharmacy 1 EACH OTHER SCH (09:00)
--- NOTE | 2018-03-13 17:06 | P.PNCC ---
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 oHoper and Dr. Pineda (completed March 2015) with followup imaging negative for residual disease (05/2015, 09/2015). She was recently admitted to [facility] hospitalist service on after she presented with anemia with hemoglobin of 6.3, dysphagia and failure to thrive. She previously had G/J tube that became dislodged in May and she had been drinking nutritional shakes at home but had progressive difficulty with swallowing and developed cachexia. Modified barium swallow confirmed aspiration and she underwent laparoscopic GJ placement [address] Kraus. She had been n.p.o. and receiving continuous jejunal tube feeds when she developed severe respiratory distress and hypoxia requiring intubation 02/22/18. She had obvious evidence of aspiration on intubation. CT neck showed no e/o laryngeal mass. She was evaluated by ENT and underwent laryngoscopy that showed no evidence of disease recurrence and findings were consistent with radiation induced scarring. She was extubated 02/25. She was ultimately discharged to care home 03/03/18. She again presented to [facility] ED with respiratory failure. Reportedly sats were in the 50s upon their arrival. She was intubated at the scene. Reportedly a large amount of secretions suctioned out post intubation. White blood cell count was 14. She was hypotensive at [place] where she was administered 2 L normal saline bolus. ED physician then placed right femoral central line after unsuccessful placement right IJ central line. Levophed drip was started. Her son states he is a physician's business development assistant in the field of critical care and expresses frustration with recurrent respiratory failure. States she had jejunal tube feeds running at goal but had not taken anything p.o. Requests ENT reconsultation for recommendations for tracheostomy. 03/08: Afebrile. Resting in bed comfortably in no acute distress. Nods head appropriately to questions. Moves all 4 extremities spontaneously. Tube feeds currently at 40 cc an hour. Remains on norepinephrine 8 mg/min. Discussed with Alireza Whitten/healthcare proxy and son. Requesting tracheostomy. He will be here this afternoon discussed with mother and will consult once verified consent. 03/09: Afebrile. Remains on norepinephrine drip at 7 mcg/min. Consent for percutaneous tracheostomy. Consult placed. Appears comfortable. Received 1 unit PRBCs overnight for a total of 2 since admission. Repeat hemoglobin pending. 03/10: Resting comfortably in bed. Previously requesting DNR status and changing her mind. Emotional. But the headache no requesting glasses as she is severely nearsighted and eardrops for her right ear. These been ordered and addressed. Plan for percutaneous tracheostomy at noon with Dr. Kraus 03/11 n.p.o. after midnight except for medications 03/11: Patient has glasses on is feeling better. Plan for percutaneous tracheostomy at noon today. No bowel movement since admission. Subjective: 03/12: Resting in room. Very emotional. Will attempt CPAP trials today. Tube feeds at goal. No bowel movement since admission. See orders for additional bowel medications. Denies abdominal pain. KUB nonspecific bowel gas pattern. Nontender. 03/13: no complaints. resting comfortably. still weaning pressure support. Objective Vital Signs / I&O: Vital Signs 03/12/18 18:00 03/12/18 19:30 03/12/18 19:45 Temperature Pulse Rate 63 55 L 56 L Respiratory Rate 20 23 Blood Pressure 133/58 L Pulse Oximetry 100 99 03/12/18 20:00 03/12/18 20:01 03/12/18 20:15 Temperature 37.0 C Pulse Rate 59 L 60 57 L Respiratory Rate 41 H 29 H 23 Blood Pressure 124/56 L 124/56 L 125/61 Pulse Oximetry 100 99 100 03/12/18 20:30 03/12/18 20:45 03/12/18 21:00 Temperature Pulse Rate 61 56 L 58 L Respiratory Rate 28 H 30 H 32 H Blood Pressure 125/61 126/58 L Pulse Oximetry 100 100 100 03/12/18 21:01 03/12/18 21:15 03/12/18 21:30 Temperature Pulse Rate 56 L 54 L 55 L Respiratory Rate 31 H 20 27 H Blood Pressure 147/65 H 135/61 133/61 Pulse Oximetry 100 99 100 03/12/18 21:45 03/12/18 22:00 03/12/18 22:15 Temperature Pulse Rate 61 79 66 Respiratory Rate 38 H 32 H 24 Blood Pressure 132/57 L 145/65 H 131/54 L Pulse Oximetry 100 99 99 03/12/18 22:30 03/12/18 22:45 03/12/18 22:59 Temperature Pulse Rate 67 63 63 Respiratory Rate 32 H 27 H 26 H Blood Pressure 128/58 L 122/60 Pulse Oximetry 98 99 03/12/18 23:00 03/13/18 00:00 03/13/18 00:15 Temperature 36.8 C Pulse Rate 64 73 Respiratory Rate 24 38 H 20 Blood Pressure 123/60 115/56 L Pulse Oximetry 100 97 99 03/13/18 01:00 03/13/18 02:00 03/13/18 03:00 Temperature Pulse Rate 62 57 L 56 L Respiratory Rate 17 16 16 Blood Pressure 122/55 L 115/56 L 119/75 Pulse Oximetry 99 98 98 03/13/18 03:47 03/13/18 04:00 03/13/18 05:00 Temperature 36.9 C Pulse Rate 54 L 56 L 58 L Respiratory Rate 13 21 20 Blood Pressure 129/59 L 118/56 L Pulse Oximetry 100 97 97 03/13/18 06:00 03/13/18 07:00 03/13/18 07:42 Temperature Pulse Rate 57 L 54 L 54 L Respiratory Rate 24 14 16 Blood Pressure 117/55 L 108/53 L Pulse Oximetry 98 99 100 03/13/18 08:00 03/13/18 09:00 03/13/18 10:00 Temperature 36.5 C Pulse Rate 54 L 61 76 Respiratory Rate 18 46 H 33 H Blood Pressure 114/53 L 117/58 L 110/68 Pulse Oximetry 99 100 98 03/13/18 11:00 03/13/18 11:36 03/13/18 12:00 Temperature 36.8 C Pulse Rate 57 L 57 L 59 L Respiratory Rate 19 23 25 H Blood Pressure 122/58 L 136/64 Pulse Oximetry 99 99 03/13/18 13:00 03/13/18 13:39 03/13/18 14:00 Temperature Pulse Rate 60 57 L Respiratory Rate 21 18 17 Blood Pressure 112/55 L 117/58 L Pulse Oximetry 98 100 99 03/13/18 15:00 03/13/18 16:00 Temperature 36.4 C Pulse Rate 55 L 56 L Respiratory Rate 18 17 Blood Pressure 121/60 132/58 L Pulse Oximetry 100 99 Intake & Output 07/03/13/18 03/13/18 18:59 06:59 18:59 Intake Total 1351 / 1351 1124 / 1124 Output Total 1835 / 1835 825 / 825 Balance -484 / -484 299 / 299 Weight 63.8 kg Intake: IV 815 / 815 615 / 615 Maxipime Inj 2,000 MG In NS Inj 200 / 200 100 / 100 100 ML @ 200 mls/hr IV.SIG Q12H [facility] Rx#:[id number] Diflucan 200 mg Premix Bag 100 100 / 100 ML @ 100 mls/hr IV.SIG Q24H [facility] Rx#:[id number] Vancomycin Inj 1,500 MG In NS 515 / 515 515 / 515 Inj 500 ML @ 250 mls/hr IV.SIG Q24H [facility] Rx#:[id number] Tube Feeding 416 / 416 509 / 509 Water Bolus Amount 120 / 120 Intake (Blood Product) Amt 0 / 0 Rbc As-3 Leukoreduced Unit 0 / 0 [id number] Output: Urine 1110 / 1110 500 / 500 Gastric Drainage 725 / 725 325 / 325 Pre-Hospital Gastrojejunostomy 725 / 725 325 / 325 Tube Other: # Incontinent Voids 2 Date of Last Bowel Movement 03/12/18 03/12/18 # Bowel Movements 1 Result Diagrams: 03/13/18 05:39 03/13/18 05:37 Objective Remarks: GENERAL: 73-year-old female currently resting in bed in no acute distress status post percutaneous tracheostomy with no bleeding SKIN: Warm and dry. HEAD: Atraumatic. Normocephalic. EYES: Pupils equal and round. No scleral icterus. No injection or drainage. Glasses are in place. Patient is nearsighted ENT: No nasal bleeding or discharge. Mucous membranes pink and moist. Orotracheally intubated NECK: Trachea midline. No JVD. #8 Shiley percutaneous ostomy is clean dry and intact without bleeding CARDIOVASCULAR: normal rate of 60, RR. sinus. RESPIRATORY: equal chest rise. unlabored. on PSV. GASTROINTESTINAL: Abdomen soft, non-tender, nondistended. GJ tube intact without signs of bleeding or erythema. MUSCULOSKELETAL: Extremities with trace bilateral upper extremity edema. No obvious deformities. NEUROLOGICAL: Awake and alert. Following commands on the ventilator. Moves all 4 extremities spontaneously. Assessment and Plan - Assessment and Plan Plan: NEURO/PSYCH: Adjustment disorder with depression Allergic rhinitis Target RASS 0 off sedation. Continue escitalopram 20 mg daily/home medication via G-tube Acetaminophen 650 mg every 6 hours by G-tube for fever Continue cetirizine 10 mg daily for allergic rhinitis RESP: Acute now chronic hypoxic and hypercarbic respiratory failure -now vent dependent secondary to aspiration 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 Noted initial CXR with pulm edema pattern, may be secondary to negative pressure pulm edema (exacerbated by low oncotic pressure) RUL spiculated lung mass on CT chest -follow-up with Dr. Martin CPAP trials as tolerated Ventilator bundle Albuterol/ipratropium aerosols every 4 hours with albuterol aerosols every 2 hours as needed for dyspnea Methylprednisolone succinate 40 mg IV every [address] Kunz discussed with son. Agreed with tracheostomy option see his note. Status post percutaneous tracheostomy Dr. Kraus 03/11 Dr. Martin/pulmonary following CV: Hypotension -possibly sepsis with elevated pro-calcitonin- resolved Chronic systolic heart failure ejection fraction 35% 2D echo 02/23/18 ejection fraction 35%, anterior septal hypokinesis. Biatrial dilation. Serial troponins/EKG essentially negative Lactic acid normal. IV fluids discontinued. GI: Severe pharyngeal phase dysphagia -diagnosed by modified barium swallow 02/05/18 Proximal esophageal Stricture, radiation induced Rendon's esophagus GERD Severe chronic protein energy malnutrition Hypoalbuminemia G/J tube in place flush with 60 cc free water every 8 hours Vital 1.5 55/hr per nutrition recs via jejunostomy. G tube to gravity with medicines not being induced. Pt known to Dr. Aly, with esophageal dilation in the past. Have been planning outpatient esophageal dilation. Plan outpatient/upper esophageal stricture dilatation if patient agrees within the next several days/weeks. Lansoprazole for GI prophylaxis. On omeprazole 20 mg daily at home successful BM. FEN/RENAL: Acute kidney injury Monitor intake and output. Monitor electrolytes and replace as indicated per electrolyte replacement protocol Creatinine currently 1.3 and oscillates ID: MRSA/Caitlyn tropicalis UTI Aspiration pneumonitis/pneumonia Will cover with cefepime 2 g IV every 8 hours day #7: d/c after today. Metronidazole 500 mg every 6 hours day #6: d/c tomorrow in vancomycin day #5: plan for full 7 day course. Diflucan 200 mg daily day #5 for Caitlyn tropicalis UTI: plan for full 7 day course. Mupirocin 2% to nares twice daily for MRSA nares Pertinent cultures Recheck blood cultures 2 03/09 no growth today 03/08 -sputum -MRSA 03/06 -blood cultures 2 -likely contaminant staph hominis- 03/06 -UA -MRSA/Caitlyn tropicalis HEME: Leukocytosis Normocytic anemia History of laryngeal cancer Followed by Dr. Pineda for followup h/o laryngeal cancer. Prior radiation and chemo completed 03/2015. Transfuse 2 units PRBCs since admission ENDO: Hypothyroidism Sliding scale insulin with insulin aspart with Accu-Cheks every 6 hours to maintain glycemic Continue levothyroxine 100 mcg by tube daily PROPH: SCDs for DVT prophylaxis. Heparin subcu. Lansoprazole for stress ulcer prophylaxis and history of GERD. ACCESS: Peripheral IVs for now.
--- NOTE | 2018-03-13 17:30 | ECHRPT ---
Indication: POSS SEPSIS, ENDOCARDITIS CONCLUSIONS Normal left ventricular size. Wall thickness is normal. The left ventricular systolic function is normal with an estimated ejection fraction in the range of 55-60%. Mild mitral annular calcification. Aortic valve sclerosis is present. [id number] aortic valve regurgitation. There is trace tricuspid valve regurgitation. The estimated pulmonary arterial pressure is 41.6 mmHg. BP: / HR: Rhythm: Sinus MEASUREMENTS (Male / Female) Normal Values Technical Quality:Fair 2D ECHO LV Diastolic Diameter PLAX 4.6 cm 4.2 - 5.9 / 3.9 - 5.3 cm LV Systolic Diameter PLAX 3.5 cm IVS Diastolic Thickness 0.9 cm 0.6 - 1.0 / 0.6 - 0.9 cm LVPW Diastolic Thickness 0.9 cm 0.6 - 1.0 / 0.6 - 0.9 cm LV Relative Wall Thickness 0.4 RV Internal Dim ED PLAX 2.8 cm LVOT Diameter 1.8 cm Aortic Root Diameter 2.9 cm LA Systolic Diameter LX 3.4 cm 3.0 - 4.0 / 2.7 - 3.8 cm M-MODE AV Cusp Separation MM 1.6 cm DOPPLER AV Peak Velocity 232.0 cm/s AV Peak Gradient 21.5 mmHg AV Mean Gradient 8.0 mmHg AV Velocity Time Integral 47.8 cm AI Peak Velocity 330.0 cm/s AI Peak Gradient 43.6 mmHg AI Pressure Half Time 583.0 ms LVOT Peak Velocity 173.0 cm/s LVOT Peak Gradient 12.0 mmHg LVOT Velocity Time Integral 34.0 cm AV Area Cont Eq vti 1.8 cm AV Area Cont Eq pk 1.9 cm Mitral E Point Velocity 124.0 cm/s Mitral A Point Velocity 126.0 cm/s Mitral E to A Ratio 1.0 LV E' Lateral Velocity 6.4 cm/s Mitral E to LV E' Lateral Ratio 19.3 LV E' Septal Velocity 6.2 cm/s Mitral E to LV E' Septal Ratio 19.9 TR Peak Velocity 281.0 cm/s TR Peak Gradient 31.6 mmHg Right Atrial Pressure 10.0 mmHg Pulmonary Artery Systolic Pressu 41.6 mmHg Right Ventricular Systolic Press 41.6 mmHg PV Peak Velocity 68.4 cm/s PV Peak Gradient 1.9 mmHg FINDINGS LEFT VENTRICLE Normal left ventricular size. Wall thickness is normal. The left ventricular systolic function is normal with an estimated ejection fraction in the range of 55-60%. RIGHT VENTRICLE Normal right ventricular size and systolic function. LEFT ATRIUM The left atrial size is normal. RIGHT ATRIUM The right atrial size is normal. ATRIAL SEPTUM No atrial level shunt is demonstrated by color flow Doppler interrogation. AORTA The aortic root and proximal ascending aorta are normal in size on limited imaging. MITRAL VALVE Mild mitral annular calcification. AORTIC VALVE Aortic valve sclerosis is present. [id number] aortic valve regurgitation. TRICUSPID VALVE There is trace tricuspid valve regurgitation. The estimated pulmonary arterial pressure is 41.6 mmHg. PULMONARY VALVE No pulmonary valve regurgitation or stenosis. VESSELS The inferior vena cava is normal in size. PERICARDIUM No pericardial effusion. Alex Canchola MD, FACC, [facility] (Electronically Signed) Final Date:13 March 2018 17:29
--- NOTE | 2018-03-13 19:06 | P.PN ---
Subjective Interval history: She is alert and on CPAP today. FIO2 at 30%. No SOB and Vitals are stable. Physical Exam Vital signs: Vital Signs 03/12/18 19:30 03/12/18 19:45 03/12/18 20:00 Temperature 98.6 F Pulse Rate 55 L 56 L 59 L Respiratory Rate 20 23 41 H Blood Pressure 133/58 L 124/56 L Pulse Oximetry 100 99 100 03/12/18 20:01 03/12/18 20:15 03/12/18 20:30 Temperature Pulse Rate 60 57 L 61 Respiratory Rate 29 H 23 28 H Blood Pressure 124/56 L 125/61 125/61 Pulse Oximetry 99 100 100 03/12/18 20:45 03/12/18 21:00 03/12/18 21:01 Temperature Pulse Rate 56 L 58 L 56 L Respiratory Rate 30 H 32 H 31 H Blood Pressure 126/58 L 147/65 H Pulse Oximetry 100 100 100 03/12/18 21:15 03/12/18 21:30 03/12/18 21:45 Temperature Pulse Rate 54 L 55 L 61 Respiratory Rate 20 27 H 38 H Blood Pressure 135/61 133/61 132/57 L Pulse Oximetry 99 100 100 03/12/18 22:00 03/12/18 22:15 03/12/18 22:30 Temperature Pulse Rate 79 66 67 Respiratory Rate 32 H 24 32 H Blood Pressure 145/65 H 131/54 L 128/58 L Pulse Oximetry 99 99 98 03/12/18 22:45 03/12/18 22:59 03/12/18 23:00 Temperature Pulse Rate 63 63 64 Respiratory Rate 27 H 26 H 24 Blood Pressure 122/60 123/60 Pulse Oximetry 99 100 03/13/18 00:00 03/13/18 00:15 03/13/18 01:00 Temperature 98.3 F Pulse Rate 73 62 Respiratory Rate 38 H 20 17 Blood Pressure 115/56 L 122/55 L Pulse Oximetry 97 99 99 03/13/18 02:00 03/13/18 03:00 03/13/18 03:47 Temperature Pulse Rate 57 L 56 L 54 L Respiratory Rate 16 16 13 Blood Pressure 115/56 L 119/75 Pulse Oximetry 98 98 100 03/13/18 04:00 03/13/18 05:00 03/13/18 06:00 Temperature 98.4 F Pulse Rate 56 L 58 L 57 L Respiratory Rate 21 20 24 Blood Pressure 129/59 L 118/56 L 117/55 L Pulse Oximetry 97 97 98 03/13/18 07:00 03/13/18 07:42 03/13/18 08:00 Temperature 97.7 F Pulse Rate 54 L 54 L 54 L Respiratory Rate 14 16 18 Blood Pressure 108/53 L 114/53 L Pulse Oximetry 99 100 99 03/13/18 09:00 03/13/18 10:00 03/13/18 11:00 Temperature Pulse Rate 61 76 57 L Respiratory Rate 46 H 33 H 19 Blood Pressure 117/58 L 110/68 122/58 L Pulse Oximetry 100 98 99 03/13/18 11:36 03/13/18 12:00 03/13/18 13:00 Temperature 98.2 F Pulse Rate 57 L 59 L 60 Respiratory Rate 23 25 H 21 Blood Pressure 136/64 112/55 L Pulse Oximetry 99 98 03/13/18 13:39 03/13/18 14:00 03/13/18 15:00 Temperature Pulse Rate 57 L 55 L Respiratory Rate 18 17 18 Blood Pressure 117/58 L 121/60 Pulse Oximetry 100 99 100 03/13/18 16:00 03/13/18 17:04 03/13/18 18:00 Temperature 97.6 F Pulse Rate 56 L 67 64 Respiratory Rate 17 16 Blood Pressure 132/58 L Pulse Oximetry 99 98 Intake & Output 03/13/18 03/13/18 03/14/18 06:59 18:59 06:59 Intake Total 1124 / 1124 942 / 942 Output Total 825 / 825 550 / 550 Balance 299 / 299 392 / 392 Weight 63.8 kg Intake: IV 615 / 615 200 / 200 Maxipime Inj 2,000 MG In NS Inj 100 / 100 100 / 100 100 ML @ 200 mls/hr IV.SIG Q12H ANN Rx#:[id number] Diflucan 200 mg Premix Bag 100 100 / 100 ML @ 100 mls/hr IV.SIG Q24H ANN Rx#:[id number] Vancomycin Inj 1,500 MG In NS 515 / 515 Inj 500 ML @ 250 mls/hr IV.SIG Q24H ANN Rx#:[id number] Tube Feeding 509 / 509 562 / 562 Tube Irrigant 120 / 120 Water Bolus Amount 60 / 60 Output: Urine 500 / 500 300 / 300 Gastric Drainage 325 / 325 250 / 250 Pre-Hospital Gastrojejunostomy 325 / 325 250 / 250 Tube Other: # Voids 1 # Incontinent Voids 2 Date of Last Bowel Movement 03/12/18 # Bowel Movements 0 Narrative: GENERAL: Elderly W/F on vent support. has a Trach tube SKIN: Warm and dry. HEAD: Normocephalic.Alert and responds well. EYES: No scleral icterus. No injection or drainage. NECK: Supple, trachea midline. No JVD or lymphadenopathy. CARDIOVASCULAR: Irregular rate and rhythm without murmurs, gallops, or rubs. RESPIRATORY: Breath sounds equal bilaterally. Occ Crackles at bases. and No wheeze. GASTROINTESTINAL: Abdomen soft, non-tender, nondistended. MUSCULOSKELETAL: No cyanosis, or edema. BACK: Nontender without obvious deformity. alert and moves all. - Urinary Catheter Management Female External Cath placed during this visit: no Indwelling Urethral Catheter Cath placed during this visit: yes, but has since been removed by the nurse Reason for continuing: Hourly intake/output Insertion date: 03/06/18 Insertion time: 18:00 Removal date: 03/10/18 Removal time: 17:00 Results - Labs CBC & Chem 7: 03/13/18 05:39 03/13/18 05:37 Laboratory Results - last 24 hr 03/12/18 03/12/18 03/13/18 22:30 23:34 05:25 WBC RBC Hgb Hct MCV MCH MCHC RDW Plt Count MPV Prelim Diff (Auto) WBC Differential Seg Neuts % (Manual) Band Neuts % (Manual) Lymphocytes % (Manual) Monocytes % (Manual) Basophils % (Manual) Metamyelocytes % (Man) Blast Cells % (Manual) Abs Neuts (Manual) Differential Comment Platelet Estimate Platelet Morphology RBC Morphology Sodium Potassium Chloride Carbon Dioxide Anion Gap BUN Creatinine Estimated GFR POC Glucose 134 H 159 H Random Glucose Calcium Phosphorus Magnesium Vancomycin Trough 30.3 H 03/13/18 03/13/18 03/13/18 05:37 05:39 11:44 WBC 9.3 RBC 2.86 L Hgb 9.1 L Hct 26.4 L MCV 92.2 MCH 31.9 MCHC 34.6 RDW 16.6 Plt Count 180 MPV 11.5 H Prelim Diff (Auto) Manual diff required WBC Differential Manual diff final Seg Neuts % (Manual) 66 Band Neuts % (Manual) 2 Lymphocytes % (Manual) 10 Monocytes % (Manual) 11 H Basophils % (Manual) 1 Metamyelocytes % (Man) 9 H Blast Cells % (Manual) 1 H Abs Neuts (Manual) 7.2 Differential Comment . Platelet Estimate Normal Platelet Morphology Enlarged H RBC Morphology Normal Sodium 143 Potassium 4.0 Chloride 108 H Carbon Dioxide 23.9 Anion Gap 11 BUN 42 H Creatinine 1.33 H Estimated GFR 39 L POC Glucose 176 H Random Glucose 140 H Calcium 7.7 L Phosphorus 2.9 Magnesium 2.0 Vancomycin Trough 03/13/18 17:38 WBC RBC Hgb Hct MCV MCH MCHC RDW Plt Count MPV Prelim Diff (Auto) WBC Differential Seg Neuts % (Manual) Band Neuts % (Manual) Lymphocytes % (Manual) Monocytes % (Manual) Basophils % (Manual) Metamyelocytes % (Man) Blast Cells % (Manual) Abs Neuts (Manual) Differential Comment Platelet Estimate Platelet Morphology RBC Morphology Sodium Potassium Chloride Carbon Dioxide Anion Gap BUN Creatinine Estimated GFR POC Glucose 161 H Random Glucose Calcium Phosphorus Magnesium Vancomycin Trough Microbiology 03/09/18 11:15 Blood - Peripheral Aerobic Blood Culture - Preliminary No growth in 4 days 03/09/18 11:15 Blood - Peripheral Anaerobic Blood Culture - Preliminary No growth in 4 days 03/09/18 11:07 Blood - Peripheral Aerobic Blood Culture - Preliminary No growth in 4 days 03/09/18 11:07 Blood - Peripheral Anaerobic Blood Culture - Preliminary No growth in 4 days 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 - Malignant neoplasm of larynx, unspecified Status: Acute (3) Supraglottic stenosis Code(s): J38.6 - Stenosis of larynx Status: Acute (4) Status post radiation therapy Code(s): Z92.3 - Personal history of irradiation Status: Acute (5) Barretts esophagus Code(s): K22.70 - Rendon's esophagus without dysplasia Status: Acute (6) Dyspnea Code(s): R06.00 - Dyspnea, unspecified Status: Acute (7) Aspiration pneumonia Code(s): J69.0 - Pneumonitis due to inhalation of food and vomit Status: Acute - Plan 1. Cont on CPAP /PSV 5/10 FIO2 30% 2. Trach care and lavage PRN 3. Continue Duo nebs q6h 4. CBC,BMP in am 5. D/C solumedrol 6. Add Prednisone 20 mg daily X 7 days 7. Tube feeds at 60 CC. 8. T Bar trial if tolerated in am 9. For EGD and Esophageal Dilation in am (7) Aspiration pneumonia Qualifiers: Aspiration pneumonia type: unspecified Laterality: unspecified laterality Lung location: unspecified part of lung Qualified Code(s): J69.0 - Pneumonitis due to inhalation of food and vomit
[2018-03-14] MEDS: metroNIDAZOLE 500 MG Tablet PO SCH ×4 (00:23→17:55)
[2018-03-14] MEDS: Insulin NovoLOG Aspart Correctional Sugar Inj SQ SCH ×4 (00:23→17:56)
[2018-03-14] MEDS: Hypromellose 0.3% Opth Gel 10 GM Bottle EACH EYE SCH ×3 (00:24→17:56)
[2018-03-14] MEDS: Oral Hygiene Kit OROPHARYNG SCH ×4 (00:24→15:55)
[2018-03-14] MEDS: Levothyroxine 100 MCG Tablet NG/OG SCH (05:06)
[2018-03-14] MEDS: Chlorhexidine 0.12% Oral Kit 15 ML UDC OROPHARYNG SCH ×2 (07:45→20:51)
[2018-03-14] MEDS: Senna/Docusate Sodium 8.6/50 MG Tablet PO SCH ×2 (08:35→20:51)
[2018-03-14] MEDS: predniSONE 20 MG Tablet PO SCH (08:35)
[2018-03-14] MEDS: Heparin - SQ 10,000 UNITS/ML Vial SQ SCH ×2 (08:35→20:51)
[2018-03-14] MEDS: Ascorbic Acid 500 MG Tablet G-TUBE SCH ×2 (08:35→20:51)
[2018-03-14] MEDS: Carbamide Peroxide 6.5% Otic Drops 15 ML Bottle EACH EAR SCH (08:36)
[2018-03-14] MEDS: Mupirocin 2% Nasal Oint Topical Syringe EACH NARE SCH ×2 (08:36→20:51)
[2018-03-14] MEDS: Polyethylene Glycol 3350 17 GM Packet PO SCH ×2 (08:37→20:52)
[2018-03-14 10:08] LABS: Baso % (Auto) 0.2 % (0.0-2.0); Eos % (Auto) 0.3 % (0.0-4.0); Hematocrit 25.1 % (35.0-46.0); Hemoglobin 8.4 gm/dL (11.6-15.3); Lymph # (Auto) 0.5 th/mm3 (1.0-4.8); Lymph % (Auto) 7.6 % (9.0-44.0); Mean Corpuscular HGB Conc 33.6 % (32.0-36.0); Mean Corpuscular Hemoglobin 31.5 pg (27.0-34.0); Mean Corpuscular Volume 93.9 fL (80.0-100.0); Mean Platelet Volume 11.5 fL (7.0-11.0); Mono # (Auto) 1.2 th/mm3 (0.0-0.9); Mono % (Auto) 18.2 % (0.0-8.0); Neut # (Auto) 4.9 th/mm3 (1.8-7.7); Neut % (Auto) 73.7 % (16.0-70.0); Platelet Count 142 th/mm3 (150-450); Red Blood Count 2.67 mil/mm3 (4.00-5.30); Red Cell Distribution Width 17.1 % (11.6-17.2); White Blood Count 6.6 th/mm3 (4.0-11.0)
[2018-03-14 10:29] LABS: Calcium 7.8 mg/dL (8.5-10.1); Carbon Dioxide 25.6 meq/L (21.0-32.0); Potassium 3.7 meq/L (3.5-5.1)
[2018-03-14 10:47] LABS: Lymphocytes 20 % (9-44); Metamyelocytes 1 % (0-1); Monocytes 9 % (0-8); Myelocytes 2 % (0-0)
[2018-03-14 10:48] LABS: Ovalocytes 1+; Platelet Morphology Normal (Normal)
--- NOTE | 2018-03-14 13:09 | P.DIET ---
Nutritional Evaluation Type of nutrition evaluation: follow-up Nutrition consult regarding: Tube Feeding Nutrition screening: [facility] [place] 03[place]07[place]18 [facility] [place] Objective - Diagnosis Respiratory Failure - Objective Richardson body weight: 59 kg % IBW: 113 Body Weight Used for Calculations: Actual (Actual Body Wt 67kg(147-lb)) Energy Needs - Lower Range (kCal/kg): 25 Energy Needs - Upper Range (kCal/kg): 30 Lower Limit kCal/kg (kCals): 1,675 Upper Limit kCal/kg (kCals): 2,010 Lower Limit Protein Factor (Grams per Kg): 1.2 Upper Limit Protein Factor (Grams per Kg): 1.5 Lower Protein Needs (Protein): 80 Upper Protein Needs (Protein): 101 Dietitian Reviewed in Medical Record: Curent medications, Intake & Output, Labs , Medical history, Tube feeding Diet Order: TF'ing ONLY: Vital 1.5 @ goal rate 55ml/hr Objective Comments: PMH: Arthritis, Ralph's Esophagus, GERD, Hypothyroidism, Skin Cancer of forehead, Squamous cell carcinoma of larynx, Squamous cell carcinoma of supraglottis s/p laproscopic G-J tube placement 02/13/18 Meds include: Synthroid, Theragran +2BM's Feeding - Current Tube Feeding Tube Feeding Product: Vital 1.5 Tube Feeding Method: Pump Tube Feeding Rate: 50 Tube Feeding Route: J/G tube Current kCals Provided by Tube Feedin,800 Current Protein Provided by Tube Feeding (gPRO): 81 Medications That Affect Tube Feeding Run Time: Synthroid Total Time Off: 2 hours Current Free H2O Provided (m/l): 917 Assessment Assessment: Pt is at nutritional risk r/t need for TF'ing. Currently TF Vital 1.5 is running at 50 ml/hr. Noted pt on Synthroid which requires TF to be shut off one hour before and one hour after medication is administered. Therefore recommend goal rate of 55 ml/hr for 22 hrs to offer 1815 kcal, 81.7g Protein and 924ml free water. Noted pt had tracheostomy 03/11, on CPAP trials. Labs reviewed. Additional Recs to follow r/t Clinical Course. Recommendations: TF Vital 1.5, with goal rate of 55ml/hr Dietitian to Monitor: Lab values, Glucose level, Intake & Output, Tube feeding tolerance, Weight change, Medical course
--- NOTE | 2018-03-14 13:27 | P.PNCC ---
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 Hooper and Dr. Pineda (completed March 2015) with followup imaging negative for residual disease (05/2015, 09/2015). She was recently admitted to [facility] hospitalist service on after she presented with anemia with hemoglobin of 6.3, dysphagia and failure to thrive. She previously had G/J tube that became dislodged in May and she had been drinking nutritional shakes at home but had progressive difficulty with swallowing and developed cachexia. Modified barium swallow confirmed aspiration and she underwent laparoscopic GJ placement [address] Kraus. She had been n.p.o. and receiving continuous jejunal tube feeds when she developed severe respiratory distress and hypoxia requiring intubation 02/22/18. She had obvious evidence of aspiration on intubation. CT neck showed no e/o laryngeal mass. She was evaluated by ENT and underwent laryngoscopy that showed no evidence of disease recurrence and findings were consistent with radiation induced scarring. She was extubated 02/25. She was ultimately discharged to senior care 03/03/18. She again presented to [facility] ED with respiratory failure. Reportedly sats were in the 50s upon their arrival. She was intubated at the scene. Reportedly a large amount of secretions suctioned out post intubation. White blood cell count was 14. She was hypotensive at [place] where she was administered 2 L normal saline bolus. ED physician then placed right femoral central line after unsuccessful placement right IJ central line. Levophed drip was started. Her son states he is a physician's food and beverage assistant manager in the field of critical care and expresses frustration with recurrent respiratory failure. States she had jejunal tube feeds running at goal but had not taken anything p.o. Requests ENT reconsultation for recommendations for tracheostomy. 03/08: Afebrile. Resting in bed comfortably in no acute distress. Nods head appropriately to questions. Moves all 4 extremities spontaneously. Tube feeds currently at 40 cc an hour. Remains on norepinephrine 8 mg/min. Discussed with Alireza Whitten/healthcare proxy and son. Requesting tracheostomy. He will be here this afternoon discussed with mother and will consult once verified consent. 03/09: Afebrile. Remains on norepinephrine drip at 7 mcg/min. Consent for percutaneous tracheostomy. Consult placed. Appears comfortable. Received 1 unit PRBCs overnight for a total of 2 since admission. Repeat hemoglobin pending. 03/10: Resting comfortably in bed. Previously requesting DNR status and changing her mind. Emotional. But the headache no requesting glasses as she is severely nearsighted and eardrops for her right ear. These been ordered and addressed. Plan for percutaneous tracheostomy at noon with Dr. Kraus 03/11 n.p.o. after midnight except for medications 03/11: Patient has glasses on is feeling better. Plan for percutaneous tracheostomy at noon today. No bowel movement since admission. Subjective: 03/12: Resting in room. Very emotional. Will attempt CPAP trials today. Tube feeds at goal. No bowel movement since admission. See orders for additional bowel medications. Denies abdominal pain. KUB nonspecific bowel gas pattern. Nontender. 03/13: no complaints. resting comfortably. still weaning pressure support. 03/14: no changes. no acute events. still on the vent, although weaning pressure support. Objective Vital Signs / I&O: Vital Signs 03/13/18 13:39 03/13/18 14:00 03/13/18 15:00 Temperature Pulse Rate 57 L 55 L Respiratory Rate 18 17 18 Blood Pressure 117/58 L 121/60 Pulse Oximetry 100 99 100 03/13/18 16:00 03/13/18 17:00 03/13/18 17:04 Temperature 36.4 C Pulse Rate 56 L 57 L 67 Respiratory Rate 17 21 16 Blood Pressure 132/58 L 128/58 L Pulse Oximetry 99 99 98 03/13/18 18:00 03/13/18 19:00 03/13/18 19:42 Temperature Pulse Rate 64 65 62 Respiratory Rate 36 H 25 H 18 Blood Pressure 115/56 L 118/58 L Pulse Oximetry 99 99 99 03/13/18 20:00 03/13/18 21:00 03/13/18 21:01 Temperature 36.8 C Pulse Rate 63 63 67 Respiratory Rate 35 H 30 H 30 H Blood Pressure 126/58 L 114/54 L Pulse Oximetry 99 98 100 03/13/18 22:00 03/13/18 23:00 03/14/18 00:00 Temperature 36.8 C Pulse Rate 64 70 68 Respiratory Rate 38 H 27 H 25 H Blood Pressure 122/60 119/58 L 115/57 L Pulse Oximetry 98 96 99 03/14/18 00:24 03/14/18 01:00 03/14/18 02:00 Temperature Pulse Rate 67 72 66 Respiratory Rate 20 22 20 Blood Pressure 116/58 L 127/60 Pulse Oximetry 99 99 97 03/14/18 03:00 03/14/18 04:00 03/14/18 04:36 Temperature 36.8 C Pulse Rate 69 75 83 Respiratory Rate 23 23 21 Blood Pressure 115/55 L 113/54 L Pulse Oximetry 96 97 99 03/14/18 05:00 03/14/18 06:00 03/14/18 07:00 Temperature Pulse Rate 67 89 64 Respiratory Rate 20 23 19 Blood Pressure 114/54 L 127/60 116/55 L Pulse Oximetry 99 99 98 03/14/18 07:55 03/14/18 08:00 03/14/18 09:00 Temperature 37.1 C Pulse Rate 76 65 Respiratory Rate 25 H 27 H 19 Blood Pressure 117/60 113/53 L Pulse Oximetry 99 98 99 03/14/18 10:00 03/14/18 10:50 03/14/18 10:57 Temperature Pulse Rate 66 66 Respiratory Rate 21 18 Blood Pressure 114/56 L Pulse Oximetry 97 98 03/14/18 11:00 03/14/18 12:00 03/14/18 13:00 Temperature 36.9 C Pulse Rate 64 116 H 70 Respiratory Rate 26 H 23 24 Blood Pressure 117/57 L 103/52 L 118/58 L Pulse Oximetry 99 98 100 Intake & Output 03/13/18 03/14/18 03/14/18 18:59 06:59 18:59 Intake Total 942 / 942 610 / 610 Output Total 550 / 550 200 / 200 Balance 392 / 392 410 / 410 Weight 63.4 kg Intake: IV 200 / 200 100 / 100 Maxipime Inj 2,000 MG In NS Inj 100 / 100 100 / 100 100 ML @ 200 mls/hr IV.SIG Q12H ANN Rx#:[id number] Diflucan 200 mg Premix Bag 100 100 / 100 ML @ 100 mls/hr IV.SIG Q24H ANN Rx#:[id number] Tube Feeding 562 / 562 510 / 510 Tube Irrigant 120 / 120 Water Bolus Amount 60 / 60 Output: Urine 300 / 300 Gastric Drainage 250 / 250 200 / 200 Pre-Hospital Gastrojejunostomy 250 / 250 200 / 200 Tube Other: # Voids 1 2 Date of Last Bowel Movement 03/14/18 # Bowel Movements 0 2 Result Diagrams: 03/14/18 09:29 03/14/18 09:29 Objective Remarks: GENERAL: 73-year-old female currently resting in bed in no acute distress status post percutaneous tracheostomy with no bleeding SKIN: Warm and dry. HEAD: Atraumatic. Normocephalic. EYES: Pupils equal and round. No scleral icterus. No injection or drainage. Glasses are in place. Patient is nearsighted ENT: No nasal bleeding or discharge. Mucous membranes pink and moist. Orotracheally intubated NECK: Trachea midline. No JVD. #8 Shiley percutaneous ostomy is clean dry and intact without bleeding CARDIOVASCULAR: normal rate of 60, RR. sinus. RESPIRATORY: equal chest rise. unlabored. on PSV. GASTROINTESTINAL: Abdomen soft, non-tender, nondistended. GJ tube intact without signs of bleeding or erythema. MUSCULOSKELETAL: Extremities with trace bilateral upper extremity edema. No obvious deformities. NEUROLOGICAL: Awake and alert. Following commands on the ventilator. Moves all 4 extremities spontaneously. Assessment and Plan - Assessment and Plan Plan: NEURO/PSYCH: Adjustment disorder with depression Allergic rhinitis Target RASS 0 off sedation. Continue escitalopram 20 mg daily/home medication via G-tube Acetaminophen 650 mg every 6 hours by G-tube for fever Continue cetirizine 10 mg daily for allergic rhinitis RESP: Acute now chronic hypoxic and hypercarbic respiratory failure -now vent dependent secondary to aspiration 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 Noted initial CXR with pulm edema pattern, may be secondary to negative pressure pulm edema (exacerbated by low oncotic pressure) RUL spiculated lung mass on CT chest -follow-up with Dr. Martin CPAP trials as tolerated Ventilator bundle Albuterol/ipratropium aerosols every 4 hours with albuterol aerosols every 2 hours as needed for dyspnea Methylpred 40 iv q8h transitioned to prednisone 20mg daily Dr. Kunz discussed with son. Agreed with tracheostomy option see his note. Status post percutaneous tracheostomy Dr. Kraus 03/11 Dr. Martin/pulmonary following CV: Hypotension -possibly sepsis with elevated pro-calcitonin- resolved Chronic systolic heart failure ejection fraction 35% 2D echo 02/23/18 ejection fraction 35%, anterior septal hypokinesis. Biatrial dilation. Serial troponins/EKG essentially negative Lactic acid normal. IV fluids discontinued. GI: Severe pharyngeal phase dysphagia -diagnosed by modified barium swallow 02/05/18 Proximal esophageal Stricture, radiation induced Rendon's esophagus GERD Severe chronic protein energy malnutrition Hypoalbuminemia G/J tube in place flush with 60 cc free water every 8 hours Vital 1.5 55/hr per nutrition recs via jejunostomy. G tube to gravity with medicines not being induced. Pt known to Dr. Aly, with esophageal dilation in the past. Have been planning outpatient esophageal dilation. Plan outpatient/upper esophageal stricture dilatation if patient agrees within the next several days/weeks. Lansoprazole for GI prophylaxis. On omeprazole 20 mg daily at home successful BM. FEN/RENAL: Acute kidney injury- resolved Monitor intake and output. Monitor electrolytes and replace as indicated per electrolyte replacement protocol ID: MRSA/Caitlyn tropicalis UTI Aspiration pneumonitis/pneumonia s/p full course of cefepime, flagyl. vancomycin and fluconazole to finish 03/16. Diflucan 200 mg daily day #6 for Caitlyn tropicalis UTI: plan for full 7 day course. Mupirocin 2% to nares twice daily for MRSA nares Pertinent cultures Recheck blood cultures 2 03/09 no growth today 03/08 -sputum -MRSA 03/06 -blood cultures 2 -likely contaminant staph hominis- 03/06 -UA -MRSA/Caitlyn tropicalis HEME: Leukocytosis Normocytic anemia History of laryngeal cancer Followed by Dr. Pineda for followup h/o laryngeal cancer. Prior radiation and chemo completed 03/2015. Transfuse 2 units PRBCs since admission ENDO: Hypothyroidism Sliding scale insulin with insulin aspart with Accu-Cheks every 6 hours to maintain glycemic Continue levothyroxine 100 mcg by tube daily PROPH: SCDs for DVT prophylaxis. Heparin subcu. Lansoprazole for stress ulcer prophylaxis and history of GERD. ACCESS: Peripheral IVs for now. OVERALL IMPRESSION: slow improvements in vent weaning. must remain in ICU while on ventilator. needs tracheal dilation planned for saturday. aggressive PT.
--- NOTE | 2018-03-14 14:03 | P.PNGI ---
Subjective Interval history: patient is still on vent. According the nurse they are going to try to get her off it soon. Still with some problem swallowing. on tube feedings Physical Exam Vital signs: Vital Signs 03/13/18 14:00 03/13/18 15:00 03/13/18 16:00 Temperature 97.6 F Pulse Rate 57 L 55 L 56 L Respiratory Rate 17 18 17 Blood Pressure 117/58 L 121/60 132/58 L Pulse Oximetry 99 100 99 03/13/18 17:00 03/13/18 17:04 03/13/18 18:00 Temperature Pulse Rate 57 L 67 64 Respiratory Rate 21 16 36 H Blood Pressure 128/58 L 115/56 L Pulse Oximetry 99 98 99 03/13/18 19:00 03/13/18 19:42 03/13/18 20:00 Temperature 98.3 F Pulse Rate 65 62 63 Respiratory Rate 25 H 18 35 H Blood Pressure 118/58 L 126/58 L Pulse Oximetry 99 99 99 03/13/18 21:00 03/13/18 21:01 03/13/18 22:00 Temperature Pulse Rate 63 67 64 Respiratory Rate 30 H 30 H 38 H Blood Pressure 114/54 L 122/60 Pulse Oximetry 98 100 98 03/13/18 23:00 03/14/18 00:00 03/14/18 00:24 Temperature 98.2 F Pulse Rate 70 68 67 Respiratory Rate 27 H 25 H 20 Blood Pressure 119/58 L 115/57 L Pulse Oximetry 96 99 99 03/14/18 01:00 03/14/18 02:00 03/14/18 03:00 Temperature Pulse Rate 72 66 69 Respiratory Rate 22 20 23 Blood Pressure 116/58 L 127/60 115/55 L Pulse Oximetry 99 97 96 03/14/18 04:00 03/14/18 04:36 03/14/18 05:00 Temperature 98.3 F Pulse Rate 75 83 67 Respiratory Rate 23 21 20 Blood Pressure 113/54 L 114/54 L Pulse Oximetry 97 99 99 03/14/18 06:00 03/14/18 07:00 03/14/18 07:55 Temperature Pulse Rate 89 64 Respiratory Rate 23 19 25 H Blood Pressure 127/60 116/55 L Pulse Oximetry 99 98 99 03/14/18 08:00 03/14/18 09:00 03/14/18 10:00 Temperature 98.7 F Pulse Rate 76 65 66 Respiratory Rate 27 H 19 21 Blood Pressure 117/60 113/53 L 114/56 L Pulse Oximetry 98 99 97 03/14/18 10:50 03/14/18 10:57 03/14/18 11:00 Temperature Pulse Rate 66 64 Respiratory Rate 18 26 H Blood Pressure 117/57 L Pulse Oximetry 98 99 03/14/18 12:00 03/14/18 13:00 Temperature 98.4 F Pulse Rate 116 H 70 Respiratory Rate 23 24 Blood Pressure 103/52 L 118/58 L Pulse Oximetry 98 100 Intake & Output 03/13/18 03/14/18 03/14/18 18:59 06:59 18:59 Intake Total 942 / 942 610 / 610 Output Total 550 / 550 200 / 200 Balance 392 / 392 410 / 410 Weight 63.4 kg Intake: IV 200 / 200 100 / 100 Maxipime Inj 2,000 MG In NS Inj 100 / 100 100 / 100 100 ML @ 200 mls/hr IV.SIG Q12H ANN Rx#:[id number] Diflucan 200 mg Premix Bag 100 100 / 100 ML @ 100 mls/hr IV.SIG Q24H ANN Rx#:[id number] Tube Feeding 562 / 562 510 / 510 Tube Irrigant 120 / 120 Water Bolus Amount 60 / 60 Output: Urine 300 / 300 Gastric Drainage 250 / 250 200 / 200 Pre-Hospital Gastrojejunostomy 250 / 250 200 / 200 Tube Other: # Voids 1 2 Date of Last Bowel Movement 03/14/18 # Bowel Movements 0 2 - Constitutional no acute distress - Routine Cardiovascular Exam Present: RRR. Absent: murmur - Routine Abdominal Exam Present: soft, normoactive bowel sounds. Absent: tenderness - Routine Skin Exam Absent: cyanosis - Urinary Catheter Management Female External Cath placed during this visit: no Indwelling Urethral Catheter Cath placed during this visit: yes, but has since been removed by the nurse Reason for continuing: Hourly intake/output Insertion date: 03/06/18 Insertion time: 18:00 Removal date: 03/10/18 Removal time: 17:00 Results - Labs CBC & Chem 7: 03/14/18 09:29 03/14/18 09:29 Laboratory Results - last 24 hr 03/13/18 03/13/18 03/14/18 17:38 23:57 05:04 WBC RBC Hgb Hct MCV MCH MCHC RDW Plt Count MPV Prelim Diff (Auto) Neut % (Auto) Lymph % (Auto) [place] % (Auto) Eos % (Auto) Baso % (Auto) Neut # (Auto) Lymph # (Auto) [place] # (Auto) Eos # (Auto) Baso # (Auto) WBC Differential Seg Neuts % (Manual) Band Neuts % (Manual) Lymphocytes % (Manual) Monocytes % (Manual) Metamyelocytes % (Man) Myelocytes % (Man) Abs Neuts (Manual) Differential Comment Platelet Estimate Platelet Morphology Ovalocytes Sodium Potassium Chloride Carbon Dioxide Anion Gap BUN Creatinine Estimated GFR POC Glucose 161 H 153 H Random Glucose Calcium Random Vancomycin 29.9 03/14/18 03/14/18 03/14/18 05:05 09:29 09:29 WBC 6.6 RBC 2.67 L Hgb 8.4 L Hct 25.1 L MCV 93.9 MCH 31.5 MCHC 33.6 RDW 17.1 Plt Count 142 L MPV 11.5 H Prelim Diff (Auto) Slide review pending Neut % (Auto) 73.7 H Lymph % (Auto) 7.6 L [place] % (Auto) 18.2 H Eos % (Auto) 0.3 Baso % (Auto) 0.2 Neut # (Auto) 4.9 Lymph # (Auto) 0.5 L [place] # (Auto) 1.2 H Eos # (Auto) 0.0 Baso # (Auto) 0.0 WBC Differential Manual diff final Seg Neuts % (Manual) 66 Band Neuts % (Manual) 2 Lymphocytes % (Manual) 20 Monocytes % (Manual) 9 H Metamyelocytes % (Man) 1 Myelocytes % (Man) 2 H Abs Neuts (Manual) 4.7 Differential Comment . Platelet Estimate Low L Platelet Morphology Normal Ovalocytes 1+ H Sodium 142 Potassium 3.7 Chloride 108 H Carbon Dioxide 25.6 Anion Gap 8 BUN 39 H Creatinine 1.26 H Estimated GFR 42 L POC Glucose 116 H Random Glucose 104 Calcium 7.8 L Random Vancomycin 03/14/18 11:54 WBC RBC Hgb Hct MCV MCH MCHC RDW Plt Count MPV Prelim Diff (Auto) Neut % (Auto) Lymph % (Auto) [place] % (Auto) Eos % (Auto) Baso % (Auto) Neut # (Auto) Lymph # (Auto) [place] # (Auto) Eos # (Auto) Baso # (Auto) WBC Differential Seg Neuts % (Manual) Band Neuts % (Manual) Lymphocytes % (Manual) Monocytes % (Manual) Metamyelocytes % (Man) Myelocytes % (Man) Abs Neuts (Manual) Differential Comment Platelet Estimate Platelet Morphology Ovalocytes Sodium Potassium Chloride Carbon Dioxide Anion Gap BUN Creatinine Estimated GFR POC Glucose 132 H Random Glucose Calcium Random Vancomycin Microbiology 03/09/18 11:15 Blood - Peripheral Aerobic Blood Culture - Final No growth in 5 days 03/09/18 11:15 Blood - Peripheral Anaerobic Blood Culture - Final No growth in 5 days 03/09/18 11:07 Blood - Peripheral Aerobic Blood Culture - Final No growth in 5 days 03/09/18 11:07 Blood - Peripheral Anaerobic Blood Culture - Final No growth in 5 days Assessment and Plan - Plan Impression- 1. oral pharyngeal dysphagia / throat cancer -status post feeding tube and now tracheostomy 2. 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 Due to her clinical status it is a much higher risk. I have booked time at 9 o'clock in the morning on SaturdayMarch 17. if patient is still on a vent in the ICU we will do EGD with dilatation with fluoroscopy at bedside
--- NOTE | 2018-03-14 18:42 | P.PN ---
Subjective Interval history: Doing well off the vent today. Now on T Bar at 28 %. Trach secretions are clear. Physical Exam Vital signs: Vital Signs 03/13/18 19:00 03/13/18 19:42 03/13/18 20:00 Temperature 98.3 F Pulse Rate 65 62 63 Respiratory Rate 25 H 18 35 H Blood Pressure 118/58 L 126/58 L Pulse Oximetry 99 99 99 03/13/18 21:00 03/13/18 21:01 03/13/18 22:00 Temperature Pulse Rate 63 67 64 Respiratory Rate 30 H 30 H 38 H Blood Pressure 114/54 L 122/60 Pulse Oximetry 98 100 98 03/13/18 23:00 03/14/18 00:00 03/14/18 00:24 Temperature 98.2 F Pulse Rate 70 68 67 Respiratory Rate 27 H 25 H 20 Blood Pressure 119/58 L 115/57 L Pulse Oximetry 96 99 99 03/14/18 01:00 03/14/18 02:00 03/14/18 03:00 Temperature Pulse Rate 72 66 69 Respiratory Rate 22 20 23 Blood Pressure 116/58 L 127/60 115/55 L Pulse Oximetry 99 97 96 03/14/18 04:00 03/14/18 04:36 03/14/18 05:00 Temperature 98.3 F Pulse Rate 75 83 67 Respiratory Rate 23 21 20 Blood Pressure 113/54 L 114/54 L Pulse Oximetry 97 99 99 03/14/18 06:00 03/14/18 07:00 03/14/18 07:55 Temperature Pulse Rate 89 64 Respiratory Rate 23 19 25 H Blood Pressure 127/60 116/55 L Pulse Oximetry 99 98 99 03/14/18 08:00 03/14/18 09:00 03/14/18 10:00 Temperature 98.7 F Pulse Rate 76 65 66 Respiratory Rate 27 H 19 21 Blood Pressure 117/60 113/53 L 114/56 L Pulse Oximetry 98 99 97 03/14/18 10:50 03/14/18 10:57 03/14/18 11:00 Temperature Pulse Rate 66 64 Respiratory Rate 18 26 H Blood Pressure 117/57 L Pulse Oximetry 98 99 03/14/18 12:00 03/14/18 13:00 03/14/18 14:00 Temperature 98.4 F Pulse Rate 116 H 70 63 Respiratory Rate 23 24 22 Blood Pressure 103/52 L 118/58 L 123/57 L Pulse Oximetry 98 100 99 03/14/18 14:42 03/14/18 15:00 03/14/18 16:00 Temperature Pulse Rate 89 65 64 Respiratory Rate 18 26 H 25 H Blood Pressure 121/59 L 126/60 Pulse Oximetry 98 98 03/14/18 17:00 03/14/18 18:00 Temperature Pulse Rate 64 65 Respiratory Rate 23 Blood Pressure 140/64 Pulse Oximetry 97 Intake & Output 03/13/18 03/14/18 03/14/18 18:59 06:59 18:59 Intake Total 942 / 942 610 / 610 776 / 776 Output Total 550 / 550 200 / 200 200 / 200 Balance 392 / 392 410 / 410 576 / 576 Weight 63.4 kg Intake: IV 200 / 200 100 / 100 Maxipime Inj 2,000 MG In NS Inj 100 / 100 100 / 100 100 ML @ 200 mls/hr IV.SIG Q12H ANN Rx#:[id number] Diflucan 200 mg Premix Bag 100 100 / 100 ML @ 100 mls/hr IV.SIG Q24H ANN Rx#:[id number] Tube Feeding 562 / 562 510 / 510 596 / 596 Tube Irrigant 120 / 120 180 / 180 Water Bolus Amount 60 / 60 Output: Urine 300 / 300 Gastric Drainage 250 / 250 200 / 200 200 / 200 Pre-Hospital Gastrojejunostomy 250 / 250 200 / 200 200 / 200 Tube Other: # Voids 1 2 3 Date of Last Bowel Movement 03/14/18 # Bowel Movements 0 2 0 Narrative: GENERAL: Elderly W/F alert and has a Trach tube SKIN: Warm and dry. HEAD: Normocephalic.Alert and responds well. EYES: No scleral icterus. No injection or drainage. NECK: Supple, trachea midline. No JVD or lymphadenopathy. CARDIOVASCULAR: Irregular rate and rhythm without murmurs, gallops, or rubs. RESPIRATORY: Breath sounds equal bilaterally. No Crackles and No wheeze. GASTROINTESTINAL: Abdomen soft, non-tender, nondistended. MUSCULOSKELETAL: No cyanosis, or edema. BACK: Nontender without obvious deformity. alert and moves all. - Urinary Catheter Management Female External Cath placed during this visit: no Indwelling Urethral Catheter Cath placed during this visit: yes, but has since been removed by the nurse Reason for continuing: Hourly intake/output Insertion date: 03/06/18 Insertion time: 18:00 Removal date: 03/10/18 Removal time: 17:00 Results - Labs CBC & Chem 7: 03/14/18 09:29 03/14/18 09:29 Laboratory Results - last 24 hr 03/13/18 03/14/18 03/14/18 23:57 05:04 05:05 WBC RBC Hgb Hct MCV MCH MCHC RDW Plt Count MPV Prelim Diff (Auto) Neut % (Auto) Lymph % (Auto) [place] % (Auto) Eos % (Auto) Baso % (Auto) Neut # (Auto) Lymph # (Auto) [place] # (Auto) Eos # (Auto) Baso # (Auto) WBC Differential Seg Neuts % (Manual) Band Neuts % (Manual) Lymphocytes % (Manual) Monocytes % (Manual) Metamyelocytes % (Man) Myelocytes % (Man) Abs Neuts (Manual) Differential Comment Platelet Estimate Platelet Morphology Ovalocytes Sodium Potassium Chloride Carbon Dioxide Anion Gap BUN Creatinine Estimated GFR POC Glucose 153 H 116 H Random Glucose Calcium Random Vancomycin 29.9 03/14/18 03/14/18 03/14/18 09:29 09:29 11:54 WBC 6.6 RBC 2.67 L Hgb 8.4 L Hct 25.1 L MCV 93.9 MCH 31.5 MCHC 33.6 RDW 17.1 Plt Count 142 L MPV 11.5 H Prelim Diff (Auto) Slide review pending Neut % (Auto) 73.7 H Lymph % (Auto) 7.6 L [place] % (Auto) 18.2 H Eos % (Auto) 0.3 Baso % (Auto) 0.2 Neut # (Auto) 4.9 Lymph # (Auto) 0.5 L [place] # (Auto) 1.2 H Eos # (Auto) 0.0 Baso # (Auto) 0.0 WBC Differential Manual diff final Seg Neuts % (Manual) 66 Band Neuts % (Manual) 2 Lymphocytes % (Manual) 20 Monocytes % (Manual) 9 H Metamyelocytes % (Man) 1 Myelocytes % (Man) 2 H Abs Neuts (Manual) 4.7 Differential Comment . Platelet Estimate Low L Platelet Morphology Normal Ovalocytes 1+ H Sodium 142 Potassium 3.7 Chloride 108 H Carbon Dioxide 25.6 Anion Gap 8 BUN 39 H Creatinine 1.26 H Estimated GFR 42 L POC Glucose 132 H Random Glucose 104 Calcium 7.8 L Random Vancomycin 03/14/18 17:54 WBC RBC Hgb Hct MCV MCH MCHC RDW Plt Count MPV Prelim Diff (Auto) Neut % (Auto) Lymph % (Auto) [place] % (Auto) Eos % (Auto) Baso % (Auto) Neut # (Auto) Lymph # (Auto) [place] # (Auto) Eos # (Auto) Baso # (Auto) WBC Differential Seg Neuts % (Manual) Band Neuts % (Manual) Lymphocytes % (Manual) Monocytes % (Manual) Metamyelocytes % (Man) Myelocytes % (Man) Abs Neuts (Manual) Differential Comment Platelet Estimate Platelet Morphology Ovalocytes Sodium Potassium Chloride Carbon Dioxide Anion Gap BUN Creatinine Estimated GFR POC Glucose 113 H Random Glucose Calcium Random Vancomycin Microbiology 03/09/18 11:15 Blood - Peripheral Aerobic Blood Culture - Final No growth in 5 days 03/09/18 11:15 Blood - Peripheral Anaerobic Blood Culture - Final No growth in 5 days 03/09/18 11:07 Blood - Peripheral Aerobic Blood Culture - Final No growth in 5 days 03/09/18 11:07 Blood - Peripheral Anaerobic Blood Culture - Final No growth in 5 days 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 - Malignant neoplasm of larynx, unspecified Status: Acute (3) Supraglottic stenosis Code(s): J38.6 - Stenosis of larynx Status: Acute (4) Status post radiation therapy Code(s): Z92.3 - Personal history of irradiation Status: Acute (5) Barretts esophagus Code(s): K22.70 - Rendon's esophagus without dysplasia Status: Acute (6) Dyspnea Code(s): R06.00 - Dyspnea, unspecified Status: Acute (7) Aspiration pneumonia Code(s): J69.0 - Pneumonitis due to inhalation of food and vomit Status: Acute - Plan 1. Cont on T Bar 28 % as long as tolerated 2. Trach care and lavage PRN 3. Continue Duo nebs q6h 4. PT evaluation to help activity 5. CXR , BMP on Saturday 6. Prednisone 20 mg daily X 7 days 7. Tube feeds at 60 CC. (7) Aspiration pneumonia Qualifiers: Aspiration pneumonia type: unspecified Laterality: unspecified laterality Lung location: unspecified part of lung Qualified Code(s): J69.0 - Pneumonitis due to inhalation of food and vomit
[2018-03-14] MEDS: fentaNYL Citrate Inj 100 MCG/2 ML Ampul IV.PUSH PRN (20:53)
[2018-03-15] MEDS: Insulin NovoLOG Aspart Correctional Sugar Inj SQ SCH ×4 (00:05→17:52)
[2018-03-15] MEDS: Oral Hygiene Kit OROPHARYNG SCH ×4 (00:05→15:16)
[2018-03-15] MEDS: Hypromellose 0.3% Opth Gel 10 GM Bottle EACH EYE SCH ×3 (00:06→17:48)
[2018-03-15] MEDS: fentaNYL Citrate Inj 100 MCG/2 ML Ampul IV.PUSH PRN (02:36)
[2018-03-15] MEDS: Levothyroxine 100 MCG Tablet NG/OG SCH (05:11)
[2018-03-15 05:37] LABS: Vancomycin,Random 19.2 Comment
[2018-03-15] MEDS: Chlorhexidine 0.12% Oral Kit 15 ML UDC OROPHARYNG SCH ×2 (08:30→20:42)
[2018-03-15] MEDS: Heparin - SQ 10,000 UNITS/ML Vial SQ SCH ×2 (09:28→20:42)
[2018-03-15] MEDS: predniSONE 20 MG Tablet PO SCH (09:39)
[2018-03-15] MEDS: Ascorbic Acid 500 MG Tablet G-TUBE SCH ×2 (09:39→20:43)
[2018-03-15] MEDS: Mupirocin 2% Nasal Oint Topical Syringe EACH NARE SCH ×2 (09:40→20:42)
[2018-03-15] MEDS: Polyethylene Glycol 3350 17 GM Packet PO SCH ×2 (09:40→20:42)
[2018-03-15] MEDS: Senna/Docusate Sodium 8.6/50 MG Tablet PO SCH ×2 (09:41→20:43)
[2018-03-15] MEDS ORDERED: Albumin Human 5% Inj 500 ML IV.SIG STA (10:33)
--- NOTE | 2018-03-15 10:43 | P.PNCC ---
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 Hooper and Dr. Pineda (completed March 2015) with followup imaging negative for residual disease (05/2015, 09/2015). She was recently admitted to [facility] hospitalist service on after she presented with anemia with hemoglobin of 6.3, dysphagia and failure to thrive. She previously had G/J tube that became dislodged in May and she had been drinking nutritional shakes at home but had progressive difficulty with swallowing and developed cachexia. Modified barium swallow confirmed aspiration and she underwent laparoscopic GJ placement [address] Kraus. She had been n.p.o. and receiving continuous jejunal tube feeds when she developed severe respiratory distress and hypoxia requiring intubation 02/22/18. She had obvious evidence of aspiration on intubation. CT neck showed no e/o laryngeal mass. She was evaluated by ENT and underwent laryngoscopy that showed no evidence of disease recurrence and findings were consistent with radiation induced scarring. She was extubated 02/25. [facility]. She again presented to [facility] ED with respiratory failure. Reportedly sats were in the 50s upon their arrival. She was intubated at the scene. Reportedly a large amount of secretions suctioned out post intubation. White blood cell count was 14. She was hypotensive at [place] where she was administered 2 L normal saline bolus. ED physician then placed right femoral central line after unsuccessful placement right IJ central line. Levophed drip was started. Her son states he is a physician's general surgery physician assistant in the field of critical care and expresses frustration with recurrent respiratory failure. States she had jejunal tube feeds running at goal but had not taken anything p.o. Requests ENT reconsultation for recommendations for tracheostomy. 03/08: Afebrile. Resting in bed comfortably in no acute distress. Nods head appropriately to questions. Moves all 4 extremities spontaneously. Tube feeds currently at 40 cc an hour. Remains on norepinephrine 8 mg/min. Discussed with Alireza Whitten/healthcare proxy and son. Requesting tracheostomy. He will be here this afternoon discussed with mother and will consult once verified consent. 03/09: Afebrile. Remains on norepinephrine drip at 7 mcg/min. Consent for percutaneous tracheostomy. Consult placed. Appears comfortable. Received 1 unit PRBCs overnight for a total of 2 since admission. Repeat hemoglobin pending. 03/10: Resting comfortably in bed. Previously requesting DNR status and changing her mind. Emotional. But the headache no requesting glasses as she is severely nearsighted and eardrops for her right ear. These been ordered and addressed. Plan for percutaneous tracheostomy at noon with Dr. Kraus 03/11 n.p.o. after midnight except for medications 03/11: Patient has glasses on is feeling better. Plan for percutaneous tracheostomy at noon today. No bowel movement since admission. 03/12: Resting in room. Very emotional. Will attempt CPAP trials today. Tube feeds at goal. No bowel movement since admission. See orders for additional bowel medications. Denies abdominal pain. KUB nonspecific bowel gas pattern. Nontender. 03/13: no complaints. resting comfortably. still weaning pressure support. 03/14: no changes. no acute events. still on the vent, although weaning pressure support. Subjective: 03/15: new hypotension associated with new-onset acute nausea/vomiting abdominal pain. no guarding or rebound, but significantly diffusely tender. diarrhea is significant. sent stat labs, ordered ct abd/pelvis. ordered iv fluid bolus. may require vasopressors. Objective Vital Signs / I&O: Vital Signs 03/14/18 10:50 03/14/18 10:57 03/14/18 11:00 Temperature Pulse Rate 66 64 Respiratory Rate 18 26 H Blood Pressure 117/57 L Pulse Oximetry 98 99 03/14/18 12:00 03/14/18 13:00 03/14/18 14:00 Temperature 36.9 C Pulse Rate 116 H 70 63 Respiratory Rate 23 24 22 Blood Pressure 103/52 L 118/58 L 123/57 L Pulse Oximetry 98 100 99 03/14/18 14:42 03/14/18 15:00 03/14/18 16:00 Temperature Pulse Rate 89 65 64 Respiratory Rate 18 26 H 25 H Blood Pressure 121/59 L 126/60 Pulse Oximetry 98 98 03/14/18 17:00 03/14/18 18:00 03/14/18 19:26 Temperature Pulse Rate 64 65 61 Respiratory Rate 23 23 Blood Pressure 140/64 Pulse Oximetry 97 100 03/14/18 20:00 03/14/18 21:25 03/14/18 22:00 Temperature 37.2 C Pulse Rate 60 62 Respiratory Rate 25 H 18 Blood Pressure 129/59 L Pulse Oximetry 98 03/15/18 00:00 03/15/18 02:00 03/15/18 04:00 Temperature 37.4 C 36.8 C Pulse Rate 59 L 61 61 Respiratory Rate 24 23 Blood Pressure 118/62 103/52 L Pulse Oximetry 96 93 L 03/15/18 04:01 03/15/18 06:00 03/15/18 08:00 Temperature Pulse Rate 59 L 61 Respiratory Rate Blood Pressure Pulse Oximetry 98 03/15/18 08:11 Temperature Pulse Rate Respiratory Rate Blood Pressure Pulse Oximetry 92 L Intake & Output 03/14/18 03/15/18 03/15/18 18:59 06:59 18:59 Intake Total 776 / 776 543 / 543 Output Total 200 / 200 1365 / 1365 Balance 576 / 576 -822 / -822 Weight 62.6 kg Intake: IV 100 / 100 Diflucan 200 mg Premix Bag 100 100 / 100 ML @ 100 mls/hr IV.SIG Q24H [facility] Rx#:[id number] Tube Feeding 596 / 596 443 / 443 Tube Irrigant 180 / 180 Output: Urine 1150 / 1150 Gastric Drainage 200 / 200 215 / 215 Pre-Hospital Gastrojejunostomy 200 / 200 215 / 215 Tube Other: # Voids 3 # Incontinent Voids 2 Date of Last Bowel Movement 03/14/18 03/14/18 # Bowel Movements 0 1 Result Diagrams: 03/14/18 09:29 03/15/18 03:53 Objective Remarks: GENERAL: elderly female, frail, lying in bed, in distress due to abdominal pain. SKIN: Warm and dry. HEAD: Atraumatic. Normocephalic. EYES: Pupils equal and round. No scleral icterus. No injection or drainage. Glasses are in place. ENT: No nasal bleeding or discharge. Mucous membranes pink and moist. s/p trach. NECK: Trachea midline. No JVD. #8 Shiley trach is clean dry and intact without bleeding CARDIOVASCULAR: normal rate, RR. sinus. RESPIRATORY: equal chest rise. on t-piece today GASTROINTESTINAL: Abdomen soft, nondistended. moderately tender to palpation diffusely. GJ tube intact without signs of bleeding or erythema. MUSCULOSKELETAL: Extremities with trace bilateral upper extremity edema. No obvious deformities. NEUROLOGICAL: Awake and alert. Following commands. Moves all 4 extremities spontaneously. Assessment and Plan - Assessment and Plan Plan: Assessment: 73yF with head and neck cancer, now s/p trach/peg with new-onset nausea, vomiting, diarrhea, abdominal pain and hypotension. high clinical suspicion for severe sespis. send labs, check lactate, ct abd/pelvis, send c- diff. remain in icu. critically ill today with new hypotension. NEURO/PSYCH: Adjustment disorder with depression Allergic rhinitis Target RASS 0 off sedation. Continue escitalopram 20 mg daily/home medication via G-tube Acetaminophen 650 mg every 6 hours by G-tube for fever Continue cetirizine 10 mg daily for allergic rhinitis RESP: Acute now chronic hypoxic and hypercarbic respiratory failure -now vent dependent secondary to aspiration 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 Noted initial CXR with pulm edema pattern, may be secondary to negative pressure pulm edema (exacerbated by low oncotic pressure) RUL spiculated lung mass on CT chest -follow-up with Dr. Martin t-piece as tolerated. Ventilator bundle Albuterol/ipratropium aerosols every 4 hours with albuterol aerosols every 2 hours as needed for dyspnea Methylpred 40 iv q8h transitioned to prednisone 20mg daily Dr. Kunz discussed with son. Agreed with tracheostomy option see his note. Status post percutaneous tracheostomy Dr. Kraus 03/11 Dr. Martin/pulmonary following CV: Hypotension -possibly sepsis with elevated pro-calcitonin- resolved Chronic systolic heart failure ejection fraction 35% New hypotension- possible severe sepsis. 2D echo 02/23/18 ejection fraction 35%, anterior septal hypokinesis. Biatrial dilation. Serial troponins/EKG essentially negative check lactate 500 cc 5% albumin iv x 1. send cbc, bmp GI: Severe pharyngeal phase dysphagia -diagnosed by modified barium swallow 02/05/18 Proximal esophageal Stricture, radiation induced Rendon's esophagus GERD Severe chronic protein energy malnutrition Hypoalbuminemia new abdominal pain, nausea, vomiting, diarrhea G/J tube in place flush with 60 cc free water every 8 hours Vital 1.5 55/hr per nutrition recs via jejunostomy. G tube to gravity with medicines not being induced. Pt known to Dr. Aly, with esophageal dilation in the past. Have been planning outpatient esophageal dilation. Plan outpatient/upper esophageal stricture dilatation saturday. Lansoprazole for GI prophylaxis. On omeprazole [address] daily at home CT abd/pelvis with iv and po contrast send c. diff npo g-tube to gravity iv zofran for nausea. FEN/RENAL: Acute kidney injury- resolved Monitor intake and output. Monitor electrolytes and replace as indicated per electrolyte replacement protocol ID: MRSA/Caitlyn tropicalis UTI Aspiration pneumonitis/pneumonia s/p full course of cefepime, flagyl. vancomycin and fluconazole to finish 03/16. Diflucan 200 mg daily day #7 for Caitlyn tropicalis UTI: plan for full 7 day course. Mupirocin 2% to nares twice daily for MRSA nares Pertinent cultures Recheck blood cultures 2 03/09 no growth today 03/08 -sputum -MRSA 03/06 -blood cultures 2 -likely contaminant staph hominis- 03/06 -UA -MRSA/Caitlyn tropicalis send c. diff cbc. HEME: Leukocytosis Normocytic anemia History of laryngeal cancer Followed by Dr. Pineda for followup h/o laryngeal cancer. Prior radiation and chemo completed 03/2015. Transfuse 2 units PRBCs since admission ENDO: Hypothyroidism Sliding scale insulin with insulin aspart with Accu-Cheks every 6 hours to maintain glycemic Continue levothyroxine 100 mcg by tube daily PROPH: SCDs for DVT prophylaxis. Heparin subcu. Lansoprazole for stress ulcer prophylaxis and history of GERD. ACCESS: Peripheral IVs for now. OVERALL IMPRESSION: new decline with hypotension and abdominal pain. critically ill today. functionally not making any improvements. This patient remains critically ill with one or more organ systems which are or may become a threat to life. I have spent in excess of 35 minutes discontinuously in the care and management of this patient. This time is exclusive of procedures, and includes, but is not limited to, evaluation of the patient, review of the medical record, discussions with family, consultants, nursing staff, or respiratory therapy, and documentation in the medical record.
[2018-03-15] MEDS ORDERED: Diatrizoate Meglum/Diatrizoate Sod Liq 9 ML UDC PO ONE (11:00)
--- NOTE | 2018-03-15 11:08 | P.PNPL ---
Subjective Interval history: Patient is on 40% TP with good sats. Afebrile. Physical Exam Vital signs: Vital Signs 03/14/18 11:00 03/14/18 12:00 03/14/18 13:00 Temperature 98.4 F Pulse Rate 64 116 H 70 Respiratory Rate 26 H 23 24 Blood Pressure 117/57 L 103/52 L 118/58 L Pulse Oximetry 99 98 100 03/14/18 14:00 03/14/18 14:42 03/14/18 15:00 Temperature Pulse Rate 63 89 65 Respiratory Rate 22 18 26 H Blood Pressure 123/57 L 121/59 L Pulse Oximetry 99 98 03/14/18 16:00 03/14/18 17:00 03/14/18 18:00 Temperature Pulse Rate 64 64 65 Respiratory Rate 25 H 23 Blood Pressure 126/60 140/64 Pulse Oximetry 98 97 03/14/18 19:26 03/14/18 20:00 03/14/18 21:25 Temperature 98.9 F Pulse Rate 61 60 Respiratory Rate 23 25 H 18 Blood Pressure 129/59 L Pulse Oximetry 100 98 03/14/18 22:00 03/15/18 00:00 03/15/18 02:00 Temperature 99.4 F Pulse Rate 62 59 L 61 Respiratory Rate 24 Blood Pressure 118/62 Pulse Oximetry 96 03/15/18 04:00 03/15/18 04:01 03/15/18 06:00 Temperature 98.3 F Pulse Rate 61 59 L Respiratory Rate 23 Blood Pressure 103/52 L Pulse Oximetry 93 L 98 03/15/18 08:00 03/15/18 08:11 Temperature Pulse Rate 61 Respiratory Rate Blood Pressure Pulse Oximetry 92 L Intake & Output 03/14/18 03/15/18 03/15/18 18:59 06:59 18:59 Intake Total 776 / 776 543 / 543 Output Total 200 / 200 1365 / 1365 Balance 576 / 576 -822 / -822 Weight 62.6 kg Intake: IV 100 / 100 Diflucan 200 mg Premix Bag 100 100 / 100 ML @ 100 mls/hr IV.SIG Q24H [facility] Rx#:[id number] Tube Feeding 596 / 596 443 / 443 Tube Irrigant 180 / 180 Output: Urine 1150 / 1150 Gastric Drainage 200 / 200 215 / 215 Pre-Hospital Gastrojejunostomy 200 / 200 215 / 215 Tube Other: # Voids 3 # Incontinent Voids 2 Date of Last Bowel Movement 03/14/18 03/14/18 # Bowel Movements 0 1 - Constitutional no acute distress - Routine HEENT Exam Head: Present: normocephalic, atraumatic Eye: Present: EOMI, PERRL, normal accommodation, conjunctivae pink ENT: Present: mucous membranes moist - Routine Neck Exam Present: supple, full ROM, trachea midline - Routine Respiratory Exam Present: CTA bilaterally - Routine Cardiovascular Exam Present: RRR, S1, S2 - Routine Abdominal Exam Present: soft, normoactive bowel sounds - Routine Extremities Exam Present: full ROM, pulses intact - Routine Skin Exam Present: intact - Routine Neurological Exam Present: alert, CN II-XII intact - Urinary Catheter Management Female External Cath placed during this visit: no Indwelling Urethral Catheter Cath placed during this visit: yes, but has since been removed by the nurse Reason for continuing: Hourly intake/output Insertion date: 03/06/18 Insertion time: 18:00 Removal date: 03/10/18 Removal time: 17:00 Assessment and Plan - Plan 1)Chronic hypoxic and hypercarbic respiratory failure s/p trach by Dr. 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 3)Radiation-induced laryngeal scarring 4)MRSA pneumonia 5)UTI 6)Anemia 7)Mild BETSEY Plan Continue with TP's keep sats >92% Bronchodilators, Pulm toilet, trach care Continue with Prednisone 20mg daily Abx ( On Vanco) monitor for isgns of infections ( Fever, WBC) Recheck sputum cx Continue with tube feeds. GI/DVT prophylaxis- On Prevacid and Heparin SQ respectively
--- NOTE | 2018-03-15 11:35 | P.PNGI ---
Subjective Interval history: Events notedhypotension, nausea and vomiting abdominal pain. Tube feedings on hold and a CAT scan is planned. Per RN C. difficile was sent off due to diarrhea. No bleeding noted Physical Exam Vital signs: Vital Signs 03/14/18 12:00 03/14/18 13:00 03/14/18 14:00 Temperature 98.4 F Pulse Rate 116 H 70 63 Respiratory Rate 23 24 22 Blood Pressure 103/52 L 118/58 L 123/57 L Pulse Oximetry 98 100 99 03/14/18 14:42 03/14/18 15:00 03/14/18 16:00 Temperature Pulse Rate 89 65 64 Respiratory Rate 18 26 H 25 H Blood Pressure 121/59 L 126/60 Pulse Oximetry 98 98 03/14/18 17:00 03/14/18 18:00 03/14/18 19:00 Temperature Pulse Rate 64 65 58 L Respiratory Rate 23 50 H 31 H Blood Pressure 140/64 122/73 127/79 Pulse Oximetry 97 96 97 03/14/18 19:26 03/14/18 20:00 03/14/18 21:00 Temperature 98.9 F Pulse Rate 61 60 70 Respiratory Rate 23 25 H 29 H Blood Pressure 129/59 L 129/61 Pulse Oximetry 100 98 96 03/14/18 21:25 03/14/18 22:00 03/14/18 23:00 Temperature Pulse Rate 62 60 Respiratory Rate 18 26 H 23 Blood Pressure 133/60 122/59 L Pulse Oximetry 97 97 03/15/18 00:00 03/15/18 01:00 03/15/18 02:00 Temperature 99.4 F Pulse Rate 59 L 57 L 61 Respiratory Rate 24 26 H 32 H Blood Pressure 118/62 137/58 L 124/61 Pulse Oximetry 96 98 96 03/15/18 03:00 03/15/18 04:00 03/15/18 04:01 Temperature 98.3 F Pulse Rate 58 L 61 Respiratory Rate 27 H 29 H Blood Pressure 112/53 L 103/52 L Pulse Oximetry 96 93 L 98 03/15/18 05:00 03/15/18 06:00 03/15/18 06:01 Temperature Pulse Rate 59 L 59 L 60 Respiratory Rate 31 H 35 H 35 H Blood Pressure 99/49 L 124/55 L Pulse Oximetry 89 L 91 L 91 L 03/15/18 07:00 03/15/18 08:00 03/15/18 08:11 Temperature 98.7 F Pulse Rate 59 L 61 Respiratory Rate 36 H 38 H Blood Pressure 93/46 L 92/44 L Pulse Oximetry 92 L 90 L 92 L 03/15/18 09:00 03/15/18 10:00 03/15/18 10:02 Temperature Pulse Rate 62 60 61 Respiratory Rate 38 H 39 H 36 H Blood Pressure 92/44 L 83/40 L 81/39 L Pulse Oximetry 91 L 91 L 91 L 03/15/18 10:50 03/15/18 11:00 03/15/18 11:20 Temperature Pulse Rate 65 65 64 Respiratory Rate 36 H 35 H 33 H Blood Pressure 86/42 L 90/42 L 100/44 L Pulse Oximetry 93 L 94 L 95 Intake & Output 03/14/18 03/15/18 03/15/18 18:59 06:59 18:59 Intake Total 776 / 776 543 / 543 Output Total 200 / 200 1365 / 1365 Balance 576 / 576 -822 / -822 Weight 62.6 kg Intake: IV 100 / 100 Diflucan 200 mg Premix Bag 100 100 / 100 ML @ 100 mls/hr IV.SIG Q24H [facility] Rx#:[id number] Tube Feeding 596 / 596 443 / 443 Tube Irrigant 180 / 180 Output: Urine 1150 / 1150 Gastric Drainage 200 / 200 215 / 215 Pre-Hospital Gastrojejunostomy 200 / 200 215 / 215 Tube Other: # Voids 3 # Incontinent Voids 2 Date of Last Bowel Movement 03/14/18 03/14/18 # Bowel Movements 0 1 - Constitutional no acute distress - Routine Neck Exam Present: supple - Routine Cardiovascular Exam Present: RRR - Routine Abdominal Exam Present: soft, tenderness. Absent: rebound, rigid - Routine Extremities Exam Absent: clubbing - Routine Skin Exam Absent: cyanosis - Urinary Catheter Management Female External Cath placed during this visit: no Indwelling Urethral Catheter Cath placed during this visit: yes, but has since been removed by the nurse Reason for continuing: Hourly intake/output Insertion date: 03/06/18 Insertion time: 18:00 Removal date: 03/10/18 Removal time: 17:00 Results - Labs CBC & Chem 7: 03/14/18 09:29 03/15/18 03:53 Laboratory Results - last 24 hr 03/14/18 03/14/18 03/14/18 11:54 17:54 23:25 Creatinine Estimated GFR POC Glucose 132 H 113 H 116 H Random Vancomycin 03/15/18 03/15/18 03:53 05:07 Creatinine 1.14 H Estimated GFR 47 L POC Glucose 89 Random Vancomycin 19.2 Microbiology 03/09/18 11:15 Blood - Peripheral Aerobic Blood Culture - Final No growth in 5 days 03/09/18 11:15 Blood - Peripheral Anaerobic Blood Culture - Final No growth in 5 days 03/09/18 11:07 Blood - Peripheral Aerobic Blood Culture - Final No growth in 5 days 03/09/18 11:07 Blood - Peripheral Anaerobic Blood Culture - Final No growth in 5 days Assessment and Plan - Plan Impression- 1. oral pharyngeal dysphagia / throat cancer -status post feeding tube and now tracheostomy 2. 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 New onset of nausea, vomiting, abdominal pain and diarrhea. C. difficile and CAT scans are pending PLAN: 1. patient will need upper endoscopy and dilatation with fluoroscopy. Due to her clinical status it is a much higher risk. I have booked time at 9 o'clock in the morning on SaturdayMarch 17. if patient is still on a vent in the ICU we will do EGD with dilatation with fluoroscopy at bedside. May need to delay the procedures depending on what caused this current problem 2. Awaiting stool studies and CAT scan
[2018-03-15] MEDS ORDERED: Vancomycin Inj 1,250 MG in Sodium Chlor 0.9% Inj 250 ML IV.SIG ONE (13:00)
[2018-03-15 16:19] LABS: Hematocrit 22.2 % (35.0-46.0); Hemoglobin 7.6 gm/dL (11.6-15.3); Mean Corpuscular HGB Conc 34.2 % (32.0-36.0); Mean Corpuscular Hemoglobin 31.6 pg (27.0-34.0); Mean Corpuscular Volume 92.5 fL (80.0-100.0); Mean Platelet Volume 11.7 fL (7.0-11.0); Platelet Count 103 th/mm3 (150-450); Red Cell Distribution Width 16.6 % (11.6-17.2); White Blood Count 7.6 th/mm3 (4.0-11.0)
[2018-03-15 16:30] LABS: Calcium 7.5 mg/dL (8.5-10.1); Carbon Dioxide 26.6 meq/L (21.0-32.0); Potassium 3.5 meq/L (3.5-5.1)
[2018-03-15 16:47] LABS: Lymphocytes 7 % (9-44); Monocytes 8 % (0-8); Myelocytes 3 % (0-0); Ovalocytes 1+
[2018-03-15 16:48] LABS: Hypersegmented Neutrophils 1+
--- NOTE | 2018-03-15 18:02 | CT ---
EXAM DATE: 03/15/2018 5:32 PM EDT AGE/SEX: 73 years / Female INDICATIONS: New nausea,vomiting,diarrhea CLINICAL DATA: This is the patient's initial encounter. Patient reports that signs and symptoms have been present for 1 day and indicates a pain score of 6/10. MEDICAL/SURGICAL HISTORY: . respiratory failure, laryngeal cancer,barretts esophagus, septic sh ock Appendectomy. hernia repair ORAL CONTRAST: Prescribed oral contrast ingested. RADIATION DOSE: 6.75 CTDI (mGy) COMPARISON: No prior exams available for comparison. TECHNIQUE: Multiple contiguous axial images were obtained through the abdomen and pelvis following b olus infusion of 69 ml Omnipaque 350 (iohexol) nonionic water-soluble contrast as a single exam dos e. Prescribed oral contrast ingested. Using automated exposure control and adjustment of the mA and/ or kV according to patient size, radiation dose was kept as low as reasonably achievable to obtain op timal diagnostic quality images. DICOM format image data is available electronically for review and comparison. FINDINGS: Small bilateral pleural effusions with compressive atelectasis in both bases. Moderate cardiomegaly w ithout pericardial effusion. Liver is free of focal defects Spleen and pancreas unremarkable Bilateral adrenal masses larger on the left. Mass left measures 1.9 cm. 2.3 cm low-density lesion right kidney probably cyst. Infarct could have a similar appearance.. Scatt ered small vascular calcic ages are noted. The left kidney is unremarkable. Scattered small vascular calcifications are noted. Extensive vascular calcifications are noted Gastrostomy tube is evident There are no inflammatory changes or ascites in the abdomen The pelvis are multiple diverticuli present. Solid stool is evident. It is no free fluid or free air Review of bone windows reveals only degenerative changes in the lumbar spine and hips. CONCLUSION: 1. Small pleural effusions with compressive atelectasis. 2. Gastrostomy tube evident within normal bowel gas pattern by CT. The tip of the gastrostomy tube i s in the antrum of the stomach. Electronically signed by: Aly Park MD 03/15/2018 6:00 PM EDT
[2018-03-16] MEDS: Oral Hygiene Kit OROPHARYNG SCH ×4 (00:55→16:19)
[2018-03-16] MEDS: Insulin NovoLOG Aspart Correctional Sugar Inj SQ SCH ×4 (00:55→18:52)
[2018-03-16] MEDS: Hypromellose 0.3% Opth Gel 10 GM Bottle EACH EYE SCH ×3 (00:56→16:19)
[2018-03-16] MEDS: Levothyroxine 100 MCG Tablet NG/OG SCH (06:29)
[2018-03-16] MEDS: Chlorhexidine 0.12% Oral Kit 15 ML UDC OROPHARYNG SCH ×2 (08:35→20:59)
[2018-03-16] MEDS: Heparin - SQ 10,000 UNITS/ML Vial SQ SCH ×2 (08:36→20:59)
[2018-03-16] MEDS: predniSONE 20 MG Tablet PO SCH (08:36)
[2018-03-16] MEDS: Mupirocin 2% Nasal Oint Topical Syringe EACH NARE SCH ×2 (08:36→21:27)
[2018-03-16] MEDS: Ascorbic Acid 500 MG Tablet G-TUBE SCH ×2 (08:37→21:01)
[2018-03-16] MEDS: Polyethylene Glycol 3350 17 GM Packet PO SCH ×2 (08:38→21:00)
[2018-03-16] MEDS: Senna/Docusate Sodium 8.6/50 MG Tablet PO SCH ×2 (08:47→21:01)
[2018-03-16 09:05] LABS: Hematocrit 21.7 % (35.0-46.0); Hemoglobin 7.6 gm/dL (11.6-15.3); Mean Corpuscular HGB Conc 34.9 % (32.0-36.0); Mean Corpuscular Hemoglobin 31.8 pg (27.0-34.0); Mean Corpuscular Volume 91.1 fL (80.0-100.0); Mean Platelet Volume 11.2 fL (7.0-11.0); Platelet Count 100 th/mm3 (150-450); Red Blood Count 2.38 mil/mm3 (4.00-5.30); Red Cell Distribution Width 16.7 % (11.6-17.2); White Blood Count 6.8 th/mm3 (4.0-11.0)
--- NOTE | 2018-03-16 09:18 | P.PNPL ---
Subjective Interval history: Patient remains on TP's with 28% FIO2. Afebrile. Awake. Physical Exam Vital signs: Vital Signs 03/15/18 10:00 03/15/18 10:02 03/15/18 10:50 Temperature Pulse Rate 60 61 65 Respiratory Rate 39 H 36 H 36 H Blood Pressure 83/40 L 81/39 L 86/42 L Pulse Oximetry 91 L 91 L 93 L 03/15/18 11:00 03/15/18 11:20 03/15/18 11:40 Temperature Pulse Rate 65 64 68 Respiratory Rate 35 H 33 H 34 H Blood Pressure 90/42 L 100/44 L 94/45 L Pulse Oximetry 94 L 95 94 L 03/15/18 11:48 03/15/18 12:00 03/15/18 12:20 Temperature 98.9 F Pulse Rate 63 67 64 Respiratory Rate 28 H 33 H 24 Blood Pressure 98/46 L 85/42 L Pulse Oximetry 94 L 92 L 03/15/18 12:41 03/15/18 13:00 03/15/18 13:20 Temperature Pulse Rate 70 78 69 Respiratory Rate 47 H 35 H 37 H Blood Pressure 95/46 L 95/47 L 95/44 L Pulse Oximetry 91 L 92 L 93 L 03/15/18 13:40 03/15/18 14:00 03/15/18 14:20 Temperature Pulse Rate 65 75 71 Respiratory Rate 25 H 30 H 29 H Blood Pressure 99/47 L 92/44 L 95/46 L Pulse Oximetry 95 95 97 03/15/18 14:40 03/15/18 15:00 03/15/18 15:20 Temperature Pulse Rate 64 63 63 Respiratory Rate 25 H 26 H 25 H Blood Pressure 101/48 L 94/44 L 96/46 L Pulse Oximetry 97 97 97 03/15/18 15:40 03/15/18 16:00 03/15/18 16:20 Temperature 98.4 F Pulse Rate 66 61 61 Respiratory Rate 22 23 21 Blood Pressure 100/47 L 96/45 L 92/46 L Pulse Oximetry 97 98 97 03/15/18 16:43 03/15/18 17:00 03/15/18 17:20 Temperature Pulse Rate 65 65 68 Respiratory Rate 26 H 29 H 43 H Blood Pressure 92/45 L 89/46 L 101/48 L Pulse Oximetry 95 94 L 89 L 03/15/18 17:28 03/15/18 17:40 03/15/18 18:00 Temperature Pulse Rate 60 76 81 Respiratory Rate 21 23 25 H Blood Pressure 91/44 L 96/46 L Pulse Oximetry 96 94 L 03/15/18 18:20 03/15/18 18:40 03/15/18 19:00 Temperature Pulse Rate 82 74 75 Respiratory Rate 24 23 29 H Blood Pressure 100/49 L 94/46 L 94/45 L Pulse Oximetry 96 91 L 96 03/15/18 19:21 03/15/18 19:45 03/15/18 20:00 Temperature 98.3 F Pulse Rate 73 83 68 Respiratory Rate 21 20 23 Blood Pressure 96/46 L 99/48 L Pulse Oximetry 98 97 100 03/15/18 21:00 03/15/18 22:00 03/15/18 23:00 Temperature Pulse Rate 83 74 65 Respiratory Rate 26 H 22 21 Blood Pressure 102/50 L 104/51 L 109/53 L Pulse Oximetry 88 L 96 99 03/16/18 00:00 03/16/18 00:07 03/16/18 01:00 Temperature 98.4 F Pulse Rate 65 85 74 Respiratory Rate 26 H 18 33 H Blood Pressure 120/56 L 107/52 L Pulse Oximetry 100 100 93 L 03/16/18 01:59 03/16/18 02:00 03/16/18 03:00 Temperature Pulse Rate 69 68 69 Respiratory Rate 34 H 20 Blood Pressure 112/53 L 116/53 L Pulse Oximetry 96 100 03/16/18 04:00 03/16/18 04:10 03/16/18 05:00 Temperature 98.3 F Pulse Rate 82 77 80 Respiratory Rate 35 H 22 25 H Blood Pressure 111/77 109/51 L Pulse Oximetry 83 L 99 03/16/18 06:00 03/16/18 07:00 03/16/18 07:56 Temperature Pulse Rate 75 73 83 Respiratory Rate 27 H 31 H 28 H Blood Pressure 108/52 L 95/46 L Pulse Oximetry 100 99 96 03/16/18 08:00 03/16/18 09:00 Temperature 100.2 F H Pulse Rate 65 94 H Respiratory Rate 20 26 H Blood Pressure 97/47 L 90/44 L Pulse Oximetry 100 98 Intake & Output 03/15/18 03/16/18 03/16/18 18:59 06:59 18:59 Intake Total 240 / 240 982.5 / 982.5 Output Total 275 / 275 600 / 600 Balance -35 / -35 382.5 / 382.5 Weight 62.6 kg Intake: IV 862.5 / 862.5 Alburx 5% Inj 500 ML @ 250 mls/ 500 / 500 hr IV.SIG STAT STA Rx#:[id number] Diflucan 200 mg Premix Bag 100 100 / 100 ML @ 100 mls/hr IV.SIG Q24H ANN Rx#:[id number] Vancomycin Inj 1,250 MG In NS 262.5 / 262.5 Inj 250 ML @ 250 mls/hr IV.SIG ONCE ONE Rx#:[id number] Tube Feeding 240 / 240 0 / 0 Water Bolus Amount 120 / 120 Output: Urine 550 / 550 Gastric Drainage 275 / 275 50 / 50 Pre-Hospital Gastrojejunostomy 275 / 275 50 / 50 Tube Other: # Voids 4 Date of Last Bowel Movement 03/14/18 03/14/18 03/14/18 # Bowel Movements 1 0 - Constitutional no acute distress - Routine HEENT Exam Head: Present: normocephalic, atraumatic Eye: Present: EOMI, PERRL, normal accommodation, conjunctivae pink ENT: Present: mucous membranes moist - Routine Neck Exam Present: supple, full ROM, trachea midline - Routine Respiratory Exam Present: CTA bilaterally - Routine Cardiovascular Exam Present: RRR, S1, S2 - Routine Abdominal Exam Present: soft, normoactive bowel sounds - Routine Skin Exam Present: intact - Routine Neurological Exam Present: alert - Routine Psychiatric Exam Present: normal affect - Urinary Catheter Management Female External Cath placed during this visit: no Indwelling Urethral Catheter Cath placed during this visit: yes, but has since been removed by the nurse Reason for continuing: Hourly intake/output Insertion date: 03/06/18 Insertion time: 18:00 Removal date: 03/10/18 Removal time: 17:00 Assessment and Plan - Plan 1)Chronic hypoxic and hypercarbic respiratory failure s/p trach by Dr. 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 3)Radiation-induced laryngeal scarring 4)MRSA pneumonia 5)UTI 6)Anemia 7)Mild BETSEY Plan Continue with TP's keep sats >92% Bronchodilators, Pulm toilet, trach care Continue with Prednisone 20mg daily Abx ( On Vanco) monitor for signs of infections ( Fever, WBC) Follow up on sputum cx CT abd/pelvis yesterday showed small pleural effusions and compressive atelectasis, no acute abdominal findings. Continue with tube feeds. GI/DVT prophylaxis- On Prevacid and Heparin SQ respectively Continue treatment plan
[2018-03-16 09:26] LABS: Albumin 2.2 g/dL (3.4-5.0); Anion Gap 6 meq/L (5-15); Aspartate Aminotransferase 19 U/L (15-37); Blood Urea Nitrogen 32 mg/dL (7-18); Carbon Dioxide 28.7 meq/L (21.0-32.0); Chloride 105 meq/L (98-107); Glomerular Filtration Rate 45 mL/min (>89); Glucose,Random 76 mg/dL (74-106); Magnesium 1.6 mg/dL (1.5-2.5); Potassium 3.3 meq/L (3.5-5.1); Sodium 140 meq/L (136-145)
[2018-03-16 09:30] LABS: Alanine Aminotransferase 26 U/L (10-53); Alkaline Phosphatase 58 U/L (45-117); Phosphorus 2.1 mg/dL (2.5-4.9); Total Protein 5.1 g/dL (6.4-8.2)
[2018-03-16 09:43] LABS: Eosinophils 3 % (0-4); Lymphocytes 9 % (9-44); Metamyelocytes 4 % (0-1); Monocytes 2 % (0-8); Myelocytes 2 % (0-0)
[2018-03-16 09:45] LABS: RBC Morphology Normal (Normal)
--- NOTE | 2018-03-16 09:54 | P.PNCC ---
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 Hooper and Dr. Pineda (completed March 2015) with followup imaging negative for residual disease (05/2015, 09/2015). She was recently admitted to [facility] hospitalist service on after she presented with anemia with hemoglobin of 6.3, dysphagia and failure to thrive. She previously had G/J tube that became dislodged in May and she had been drinking nutritional shakes at home but had progressive difficulty with swallowing and developed cachexia. Modified barium swallow confirmed aspiration and she underwent laparoscopic GJ placement [address] Kraus. She had been n.p.o. and receiving continuous jejunal tube feeds when she developed severe respiratory distress and hypoxia requiring intubation 02/22/18. She had obvious evidence of aspiration on intubation. CT neck showed no e/o laryngeal mass. She was evaluated by ENT and underwent laryngoscopy that showed no evidence of disease recurrence and findings were consistent with radiation induced scarring. She was extubated 02/25. [facility]. She again presented to [facility] ED with respiratory failure. Reportedly sats were in the 50s upon their arrival. She was intubated at the scene. Reportedly a large amount of secretions suctioned out post intubation. White blood cell count was 14. She was hypotensive at [place] where she was administered 2 L normal saline bolus. ED physician then placed right femoral central line after unsuccessful placement right IJ central line. Levophed drip was started. Her son states he is a physician's teacher assistant in the field of critical care and expresses frustration with recurrent respiratory failure. States she had jejunal tube feeds running at goal but had not taken anything p.o. Requests ENT reconsultation for recommendations for tracheostomy. 03/08: Afebrile. Resting in bed comfortably in no acute distress. Nods head appropriately to questions. Moves all 4 extremities spontaneously. Tube feeds currently at 40 cc an hour. Remains on norepinephrine 8 mg/min. Discussed with Alireza Whitten/healthcare proxy and son. Requesting tracheostomy. He will be here this afternoon discussed with mother and will consult once verified consent. 03/09: Afebrile. Remains on norepinephrine drip at 7 mcg/min. Consent for percutaneous tracheostomy. Consult placed. Appears comfortable. Received 1 unit PRBCs overnight for a total of 2 since admission. Repeat hemoglobin pending. 03/10: Resting comfortably in bed. Previously requesting DNR status and changing her mind. Emotional. But the headache no requesting glasses as she is severely nearsighted and eardrops for her right ear. These been ordered and addressed. Plan for percutaneous tracheostomy at noon with Dr. Kraus 03/11 n.p.o. after midnight except for medications 03/11: Patient has glasses on is feeling better. Plan for percutaneous tracheostomy at noon today. No bowel movement since admission. 03/12: Resting in room. Very emotional. Will attempt CPAP trials today. Tube feeds at goal. No bowel movement since admission. See orders for additional bowel medications. Denies abdominal pain. KUB nonspecific bowel gas pattern. Nontender. 03/13: no complaints. resting comfortably. still weaning pressure support. 03/14: no changes. no acute events. still on the vent, although weaning pressure support. Subjective: 03/15: new hypotension associated with new-onset acute nausea/vomiting abdominal pain. no guarding or rebound, but significantly diffusely tender. diarrhea is significant. sent stat labs, ordered ct abd/pelvis. ordered iv fluid bolus. may require vasopressors. 03/16: hypotension resolved. abdominal pain improving. CT abd/pelvis without acute change or pathology. remains on t-piece. plan for esophageal dilation tomorrow. Objective Vital Signs / I&O: Vital Signs 03/15/18 10:00 03/15/18 10:02 03/15/18 10:50 Temperature Pulse Rate 60 61 65 Respiratory Rate 39 H 36 H 36 H Blood Pressure 83/40 L 81/39 L 86/42 L Pulse Oximetry 91 L 91 L 93 L 03/15/18 11:00 03/15/18 11:20 03/15/18 11:40 Temperature Pulse Rate 65 64 68 Respiratory Rate 35 H 33 H 34 H Blood Pressure 90/42 L 100/44 L 94/45 L Pulse Oximetry 94 L 95 94 L 03/15/18 11:48 03/15/18 12:00 03/15/18 12:20 Temperature 37.2 C Pulse Rate 63 67 64 Respiratory Rate 28 H 33 H 24 Blood Pressure 98/46 L 85/42 L Pulse Oximetry 94 L 92 L 03/15/18 12:41 03/15/18 13:00 03/15/18 13:20 Temperature Pulse Rate 70 78 69 Respiratory Rate 47 H 35 H 37 H Blood Pressure 95/46 L 95/47 L 95/44 L Pulse Oximetry 91 L 92 L 93 L 03/15/18 13:40 03/15/18 14:00 03/15/18 14:20 Temperature Pulse Rate 65 75 71 Respiratory Rate 25 H 30 H 29 H Blood Pressure 99/47 L 92/44 L 95/46 L Pulse Oximetry 95 95 97 03/15/18 14:40 03/15/18 15:00 03/15/18 15:20 Temperature Pulse Rate 64 63 63 Respiratory Rate 25 H 26 H 25 H Blood Pressure 101/48 L 94/44 L 96/46 L Pulse Oximetry 97 97 97 03/15/18 15:40 03/15/18 16:00 03/15/18 16:20 Temperature 36.9 C Pulse Rate 66 61 61 Respiratory Rate 22 23 21 Blood Pressure 100/47 L 96/45 L 92/46 L Pulse Oximetry 97 98 97 03/15/18 16:43 03/15/18 17:00 03/15/18 17:20 Temperature Pulse Rate 65 65 68 Respiratory Rate 26 H 29 H 43 H Blood Pressure 92/45 L 89/46 L 101/48 L Pulse Oximetry 95 94 L 89 L 03/15/18 17:28 03/15/18 17:40 03/15/18 18:00 Temperature Pulse Rate 60 76 81 Respiratory Rate 21 23 25 H Blood Pressure 91/44 L 96/46 L Pulse Oximetry 96 94 L 03/15/18 18:20 03/15/18 18:40 03/15/18 19:00 Temperature Pulse Rate 82 74 75 Respiratory Rate 24 23 29 H Blood Pressure 100/49 L 94/46 L 94/45 L Pulse Oximetry 96 91 L 96 03/15/18 19:21 03/15/18 19:45 03/15/18 20:00 Temperature 36.8 C Pulse Rate 73 83 68 Respiratory Rate 21 20 23 Blood Pressure 96/46 L 99/48 L Pulse Oximetry 98 97 100 03/15/18 21:00 03/15/18 22:00 03/15/18 23:00 Temperature Pulse Rate 83 74 65 Respiratory Rate 26 H 22 21 Blood Pressure 102/50 L 104/51 L 109/53 L Pulse Oximetry 88 L 96 99 03/16/18 00:00 03/16/18 00:07 03/16/18 01:00 Temperature 36.9 C Pulse Rate 65 85 74 Respiratory Rate 26 H 18 33 H Blood Pressure 120/56 L 107/52 L Pulse Oximetry 100 100 93 L 03/16/18 01:59 03/16/18 02:00 03/16/18 03:00 Temperature Pulse Rate 69 68 69 Respiratory Rate 34 H 20 Blood Pressure 112/53 L 116/53 L Pulse Oximetry 96 100 03/16/18 04:00 03/16/18 04:10 03/16/18 05:00 Temperature 36.8 C Pulse Rate 82 77 80 Respiratory Rate 35 H 22 25 H Blood Pressure 111/77 109/51 L Pulse Oximetry 83 L 99 03/16/18 06:00 03/16/18 07:00 03/16/18 07:56 Temperature Pulse Rate 75 73 83 Respiratory Rate 27 H 31 H 28 H Blood Pressure 108/52 L 95/46 L Pulse Oximetry 100 99 96 03/16/18 08:00 03/16/18 09:00 Temperature 37.9 C H Pulse Rate 65 94 H Respiratory Rate 20 26 H Blood Pressure 97/47 L 90/44 L Pulse Oximetry 100 98 Intake & Output 03/15/18 03/16/18 03/16/18 18:59 06:59 18:59 Intake Total 240 / 240 982.5 / 982.5 Output Total 275 / 275 600 / 600 Balance -35 / -35 382.5 / 382.5 Weight 62.6 kg Intake: IV 862.5 / 862.5 Alburx 5% Inj 500 ML @ 250 mls/ 500 / 500 hr IV.SIG STAT STA Rx#:[id number] Diflucan 200 mg Premix Bag 100 100 / 100 ML @ 100 mls/hr IV.SIG Q24H ANN Rx#:[id number] Vancomycin Inj 1,250 MG In NS 262.5 / 262.5 Inj 250 ML @ 250 mls/hr IV.SIG ONCE ONE Rx#:[id number] Tube Feeding 240 / 240 0 / 0 Water Bolus Amount 120 / 120 Output: Urine 550 / 550 Gastric Drainage 275 / 275 50 / 50 Pre-Hospital Gastrojejunostomy 275 / 275 50 / 50 Tube Other: # Voids 4 Date of Last Bowel Movement 03/14/18 03/14/18 03/14/18 # Bowel Movements 1 0 Result Diagrams: 03/16/18 08:28 03/16/18 08:28 Objective Remarks: GENERAL: elderly female, frail, lying in bed, in distress due to abdominal pain. SKIN: Warm and dry. HEAD: Atraumatic. Normocephalic. EYES: Pupils equal and round. No scleral icterus. No injection or drainage. Glasses are in place. ENT: No nasal bleeding or discharge. Mucous membranes pink and moist. s/p trach. NECK: Trachea midline. No JVD. #8 Shiley trach is clean dry and intact without bleeding CARDIOVASCULAR: normal rate, RR. sinus. RESPIRATORY: equal chest rise. on t-piece today GASTROINTESTINAL: Abdomen soft, nondistended. nontender today. GJ tube intact without signs of bleeding or erythema. MUSCULOSKELETAL: Extremities with trace bilateral upper extremity edema. No obvious deformities. NEUROLOGICAL: Awake and alert. Following commands. Moves all 4 extremities spontaneously. Assessment and Plan - Assessment and Plan Plan: Assessment: 73yF with head and neck cancer, now s/p trach/peg. symptoms from yesterday have resolved. continue PT and rehab efforts. plan for esophageal dilation tomorrow. NEURO/PSYCH: Adjustment disorder with depression Allergic rhinitis Target RASS 0 off sedation. Continue escitalopram 20 mg daily/home medication via G-tube Acetaminophen 650 mg every 6 hours by G-tube for fever Continue cetirizine 10 mg daily for allergic rhinitis RESP: Acute now chronic hypoxic and hypercarbic respiratory failure -now vent dependent secondary to aspiration 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 Noted initial CXR with pulm edema pattern, may be secondary to negative pressure pulm edema (exacerbated by low oncotic pressure) RUL spiculated lung mass on CT chest -follow-up with Dr. Martin t-piece as tolerated. Ventilator bundle Albuterol/ipratropium aerosols every 4 hours with albuterol aerosols every 2 hours as needed for dyspnea Methylpred 40 iv q8h transitioned to prednisone 20mg daily Dr. Kunz discussed with son. Agreed with tracheostomy option see his note. Status post percutaneous tracheostomy Dr. Kraus 03/11 Dr. Martin/pulmonary following CV: Hypotension -possibly sepsis with elevated pro-calcitonin- resolved Chronic systolic heart failure ejection fraction 35% New hypotension- resolved 2D echo 02/23/18 ejection fraction 35%, anterior septal hypokinesis. Biatrial dilation. Serial troponins/EKG essentially negative lactate normal. GI: Severe pharyngeal phase dysphagia -diagnosed by modified barium swallow 02/05/18 Proximal esophageal Stricture, radiation induced Rendon's esophagus GERD Severe chronic protein energy malnutrition Hypoalbuminemia new abdominal pain, nausea, vomiting, diarrhea 03/15- resolved G/J tube in place flush with 60 cc free water every 8 hours Vital 1.5 55/hr per nutrition recs via jejunostomy. G tube to gravity with medicines not being induced. Pt known to Dr. Aly, with esophageal dilation in the past. Have been planning outpatient esophageal dilation. Plan outpatient/upper esophageal stricture dilatation saturday. Lansoprazole for GI prophylaxis. On omeprazole 20 mg daily at home CT abd/pelvis with iv and po contrast 03/15: no acute disease. c. diff: pending g-tube to gravity iv zofran for nausea. FEN/RENAL: Acute kidney injury- resolved Monitor intake and output. Monitor electrolytes and replace as indicated per electrolyte replacement protocol ID: MRSA/Caitlyn tropicalis UTI Aspiration pneumonitis/pneumonia s/p full course of cefepime, flagyl. vancomycin and fluconazole to finish 03/16. Diflucan 200 mg daily day #7 for Caitlyn tropicalis UTI: plan for full 7 day course. Mupirocin 2% to nares twice daily for MRSA nares Pertinent cultures Recheck blood cultures 2 03/09 no growth today 03/08 -sputum -MRSA 03/06 -blood cultures 2 -likely contaminant staph hominis- 03/06 -UA -MRSA/Caitlyn tropicalis c. diff pending cbc. HEME: Leukocytosis Normocytic anemia History of laryngeal cancer Followed by Dr. Pineda for followup h/o laryngeal cancer. Prior radiation and chemo completed 03/2015. Transfuse 2 units PRBCs since admission ENDO: Hypothyroidism Sliding scale insulin with insulin aspart with Accu-Cheks every 6 hours to maintain glycemic Continue levothyroxine 100 mcg by tube daily PROPH: SCDs for DVT prophylaxis. Heparin subcu. Lansoprazole for stress ulcer prophylaxis and history of GERD. ACCESS: Peripheral IVs for now. OVERALL IMPRESSION: remains deconditioned. PT efforts continue. esophageal dilation tomorrow. needs placement.
--- NOTE | 2018-03-16 11:39 | P.PNGI ---
Subjective Interval history: Events noted. CT scan of abdomen pelvis did not elicit etiology of problems. Per nurse no nausea vomiting or diarrhea today. Blood pressure still a little low 90/44. No significant abdominal pain today. No overt GI bleeding Physical Exam Vital signs: Vital Signs 03/15/18 11:40 03/15/18 11:48 03/15/18 12:00 Temperature 98.9 F Pulse Rate 68 63 67 Respiratory Rate 34 H 28 H 33 H Blood Pressure 94/45 L 98/46 L Pulse Oximetry 94 L 94 L 03/15/18 12:20 03/15/18 12:41 03/15/18 13:00 Temperature Pulse Rate 64 70 78 Respiratory Rate 24 47 H 35 H Blood Pressure 85/42 L 95/46 L 95/47 L Pulse Oximetry 92 L 91 L 92 L 03/15/18 13:20 03/15/18 13:40 03/15/18 14:00 Temperature Pulse Rate 69 65 75 Respiratory Rate 37 H 25 H 30 H Blood Pressure 95/44 L 99/47 L 92/44 L Pulse Oximetry 93 L 95 95 03/15/18 14:20 03/15/18 14:40 03/15/18 15:00 Temperature Pulse Rate 71 64 63 Respiratory Rate 29 H 25 H 26 H Blood Pressure 95/46 L 101/48 L 94/44 L Pulse Oximetry 97 97 97 03/15/18 15:20 03/15/18 15:40 03/15/18 16:00 Temperature 98.4 F Pulse Rate 63 66 61 Respiratory Rate 25 H 22 23 Blood Pressure 96/46 L 100/47 L 96/45 L Pulse Oximetry 97 97 98 03/15/18 16:20 03/15/18 16:43 03/15/18 17:00 Temperature Pulse Rate 61 65 65 Respiratory Rate 21 26 H 29 H Blood Pressure 92/46 L 92/45 L 89/46 L Pulse Oximetry 97 95 94 L 03/15/18 17:20 03/15/18 17:28 03/15/18 17:40 Temperature Pulse Rate 68 60 76 Respiratory Rate 43 H 21 23 Blood Pressure 101/48 L 91/44 L Pulse Oximetry 89 L 96 03/15/18 18:00 03/15/18 18:20 03/15/18 18:40 Temperature Pulse Rate 81 82 74 Respiratory Rate 25 H 24 23 Blood Pressure 96/46 L 100/49 L 94/46 L Pulse Oximetry 94 L 96 91 L 03/15/18 19:00 03/15/18 19:21 03/15/18 19:45 Temperature Pulse Rate 75 73 83 Respiratory Rate 29 H 21 20 Blood Pressure 94/45 L 96/46 L Pulse Oximetry 96 98 97 03/15/18 20:00 03/15/18 21:00 03/15/18 22:00 Temperature 98.3 F Pulse Rate 68 83 74 Respiratory Rate 23 26 H 22 Blood Pressure 99/48 L 102/50 L 104/51 L Pulse Oximetry 100 88 L 96 03/15/18 23:00 03/16/18 00:00 03/16/18 00:07 Temperature 98.4 F Pulse Rate 65 65 85 Respiratory Rate 21 26 H 18 Blood Pressure 109/53 L 120/56 L Pulse Oximetry 99 100 100 03/16/18 01:00 03/16/18 01:59 03/16/18 02:00 Temperature Pulse Rate 74 69 68 Respiratory Rate 33 H 34 H Blood Pressure 107/52 L 112/53 L Pulse Oximetry 93 L 96 03/16/18 03:00 03/16/18 04:00 03/16/18 04:10 Temperature 98.3 F Pulse Rate 69 82 77 Respiratory Rate 20 35 H 22 Blood Pressure 116/53 L 111/77 Pulse Oximetry 100 83 L 03/16/18 05:00 03/16/18 06:00 03/16/18 07:00 Temperature Pulse Rate 80 75 73 Respiratory Rate 25 H 27 H 31 H Blood Pressure 109/51 L 108/52 L 95/46 L Pulse Oximetry 99 100 99 03/16/18 07:56 03/16/18 08:00 03/16/18 09:00 Temperature 100.2 F H Pulse Rate 83 65 94 H Respiratory Rate 28 H 20 26 H Blood Pressure 97/47 L 90/44 L Pulse Oximetry 96 100 98 03/16/18 11:19 Temperature Pulse Rate 87 Respiratory Rate 25 H Blood Pressure Pulse Oximetry Intake & Output 03/15/18 03/16/18 03/16/18 18:59 06:59 18:59 Intake Total 240 / 240 982.5 / 982.5 Output Total 275 / 275 600 / 600 Balance -35 / -35 382.5 / 382.5 Weight 62.6 kg Intake: IV 862.5 / 862.5 Alburx 5% Inj 500 ML @ 250 mls/ 500 / 500 hr IV.SIG STAT STA Rx#:[id number] Diflucan 200 mg Premix Bag 100 100 / 100 ML @ 100 mls/hr IV.SIG Q24H ANN Rx#:[id number] Vancomycin Inj 1,250 MG In NS 262.5 / 262.5 Inj 250 ML @ 250 mls/hr IV.SIG ONCE ONE Rx#:[id number] Tube Feeding 240 / 240 0 / 0 Water Bolus Amount 120 / 120 Output: Urine 550 / 550 Gastric Drainage 275 / 275 50 / 50 Pre-Hospital Gastrojejunostomy 275 / 275 50 / 50 Tube Other: # Voids 4 Date of Last Bowel Movement 03/14/18 03/14/18 03/14/18 # Bowel Movements 1 0 - Constitutional chronically ill appearing - Routine HEENT Exam Head: Present: normocephalic - Routine Neck Exam Present: supple - Routine Cardiovascular Exam Present: RRR - Routine Abdominal Exam Present: soft, normoactive bowel sounds, tenderness (Minimal diffuse tenderness. No rebound). Absent: distended - Routine Extremities Exam Absent: cyanosis - Urinary Catheter Management Female External Cath placed during this visit: no Indwelling Urethral Catheter Cath placed during this visit: yes, but has since been removed by the nurse Reason for continuing: Hourly intake/output Insertion date: 03/06/18 Insertion time: 18:00 Removal date: 03/10/18 Removal time: 17:00 Results - Labs CBC & Chem 7: 03/16/18 08:28 03/16/18 08:28 Laboratory Results - last 24 hr 03/15/18 03/15/18 03/15/18 12:07 15:46 15:46 WBC 7.6 RBC 2.40 L Hgb 7.6 L Hct 22.2 L MCV 92.5 MCH 31.6 MCHC 34.2 RDW 16.6 Plt Count 103 L MPV 11.7 H Prelim Diff (Auto) Manual diff required WBC Differential Manual diff final Seg Neuts % (Manual) 74 H Band Neuts % (Manual) 6 Lymphocytes % (Manual) 7 L Monocytes % (Manual) 8 Eosinophils % (Manual) Basophils % (Manual) 2 Metamyelocytes % (Man) Myelocytes % (Man) 3 H Abs Neuts (Manual) 6.3 Differential Comment . Hypersegmented Neuts 1+ H Platelet Estimate Low L Platelet Morphology Enlarged H RBC Morphology Ovalocytes 1+ H Sodium 138 Potassium 3.5 Chloride 103 Carbon Dioxide 26.6 Anion Gap 8 BUN 36 H Creatinine 1.14 H Estimated GFR 47 L POC Glucose 102 Random Glucose 99 Lactic Acid Calcium 7.5 L Phosphorus Magnesium Total Bilirubin AST ALT Alkaline Phosphatase Total Protein Albumin 03/15/18 03/15/18 03/16/18 15:46 17:52 00:04 WBC RBC Hgb Hct MCV MCH MCHC RDW Plt Count MPV Prelim Diff (Auto) WBC Differential Seg Neuts % (Manual) Band Neuts % (Manual) Lymphocytes % (Manual) Monocytes % (Manual) Eosinophils % (Manual) Basophils % (Manual) Metamyelocytes % (Man) Myelocytes % (Man) Abs Neuts (Manual) Differential Comment Hypersegmented Neuts Platelet Estimate Platelet Morphology RBC Morphology Ovalocytes Sodium Potassium Chloride Carbon Dioxide Anion Gap BUN Creatinine Estimated GFR POC Glucose 108 87 Random Glucose Lactic Acid 0.6 Calcium Phosphorus Magnesium Total Bilirubin AST ALT Alkaline Phosphatase Total Protein Albumin 03/16/18 03/16/18 03/16/18 05:10 08:28 08:28 WBC 6.8 RBC 2.38 L Hgb 7.6 L Hct 21.7 L MCV 91.1 MCH 31.8 MCHC 34.9 RDW 16.7 Plt Count 100 L MPV 11.2 H Prelim Diff (Auto) Manual diff required WBC Differential Manual diff final Seg Neuts % (Manual) 76 H Band Neuts % (Manual) 3 Lymphocytes % (Manual) 9 Monocytes % (Manual) 2 Eosinophils % (Manual) 3 Basophils % (Manual) 1 Metamyelocytes % (Man) 4 H Myelocytes % (Man) 2 H Abs Neuts (Manual) 5.8 Differential Comment . Hypersegmented Neuts Platelet Estimate Low L Platelet Morphology Enlarged H RBC Morphology Normal Ovalocytes Sodium 140 Potassium 3.3 L Chloride 105 Carbon Dioxide 28.7 Anion Gap 6 BUN 32 H Creatinine 1.21 H 1.17 H Estimated GFR 44 L 45 L POC Glucose Random Glucose 76 Lactic Acid Calcium 8.0 L Phosphorus 2.1 L Magnesium 1.6 Total Bilirubin 0.8 AST 19 ALT 26 Alkaline Phosphatase 58 Total Protein 5.1 L Albumin 2.2 L Microbiology 03/15/18 17:26 Sputum - Tracheal Aspirate Gram Stain - Final - Imaging Impressions Abdomen/Pelvis CT 03/15/18 00:00 CONCLUSION: 1. Small pleural effusions with compressive atelectasis. 2. Gastrostomy tube evident within normal bowel gas pattern by CT. The tip of the gastrostomy tube is in the antrum of the stomach. Assessment and Plan - Plan Impression- 1. oral pharyngeal dysphagia / throat cancer -status post feeding tube and now tracheostomy 2. 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 New onset of nausea, vomiting, abdominal pain and diarrhea. Better today 4. Anemiano overt GI bleeding noted PLAN: 1. The upper endoscopy and dilatation was planned for tomorrow with fluoroscopy however this is more of an elective case rather than an emergent case. With her clinical status and low blood pressure it will be better to postpone it for now
[2018-03-17 00:55] LABS: Phosphorus 3.9 mg/dL (2.5-4.9); Potassium 3.9 meq/L (3.5-5.1)
[2018-03-17] MEDS: Insulin NovoLOG Aspart Correctional Sugar Inj SQ SCH ×5 (01:16→23:43)
[2018-03-17] MEDS: Hypromellose 0.3% Opth Gel 10 GM Bottle EACH EYE SCH ×3 (01:17→19:09)
[2018-03-17] MEDS: Oral Hygiene Kit OROPHARYNG SCH ×5 (01:17→23:43)
--- NOTE | 2018-03-17 05:20 | XR ---
EXAM DATE: 03/17/2018 5:13 AM EDT AGE/SEX: 73 years / Female INDICATIONS: Shortness of breath, possible pulmonary disease. CLINICAL DATA: This is the patient's subsequent encounter. Patient reports that signs and symptoms h ave been present for 1 month and indicates a pain score of Nonresponsive. MEDICAL/SURGICAL HISTORY: . respiratory failure, laryngeal cancer,barretts esophagus, septic s hock Appendectomy. Hernia repair. COMPARISON: [facility] [place] 1V SINGLE AP, 03/11/2018. . FINDINGS: A single AP semierect view of the chest was obtained and again demonstrates hazy opacity in both lung s right greater than left. The heart size is mildly enlarged. The tracheostomy tube remains in place. There are overlying electrocardiogram leads. Left costophrenic angle remains mildly blunted. CONCLUSION: No significant change. Persistent opacity remains in both lungs right greater than left. Electronically signed by: Saji Blood MD 03/17/2018 5:18 AM EDT
[2018-03-17] MEDS: Levothyroxine 100 MCG Tablet NG/OG SCH (05:27)
[2018-03-17] MEDS: predniSONE 20 MG Tablet PO SCH (09:46)
[2018-03-17] MEDS: Heparin - SQ 10,000 UNITS/ML Vial SQ SCH ×2 (09:47→20:00)
[2018-03-17] MEDS: Mupirocin 2% Nasal Oint Topical Syringe EACH NARE SCH ×2 (09:47→20:00)
[2018-03-17] MEDS: Senna/Docusate Sodium 8.6/50 MG Tablet PO SCH ×2 (09:47→20:01)
[2018-03-17] MEDS: Ascorbic Acid 500 MG Tablet G-TUBE SCH ×2 (09:47→20:01)
[2018-03-17] MEDS: Chlorhexidine 0.12% Oral Kit 15 ML UDC OROPHARYNG SCH ×2 (09:47→19:53)
--- NOTE | 2018-03-17 11:52 | XR ---
EXAM DATE: 03/17/2018 11:45 AM EDT AGE/SEX: 73 years / Female INDICATIONS: Respiratory distress. CLINICAL DATA: This is the patient's subsequent encounter. Patient reports that signs and symptoms h ave been present for 1 month and indicates a pain score of Nonresponsive. MEDICAL/SURGICAL HISTORY: . Respiratory failure, laryngeal cancer, milan esophagus, septic sh ock . Appendectomy. Hernia repair. COMPARISON: [facility] – [place], CHEST 1V SINGLE AP, 03/17/2018. . FINDINGS: There is a consolidation in the left lower lobe and right lung base. There is cardiomegaly. Tracheost chela tube is noted. The osseous structures are intact. Bilateral effusions are suspected. CONCLUSION: Overall stable appearance of the chest. Electronically signed by: Kolby Ray MD 03/17/2018 11:51 AM EDT
--- NOTE | 2018-03-17 12:09 | P.PN ---
Subjective Interval history: On a T Bar 30 % FIo2 to day. Had aspirated earlier. Chest Xray showed a RLL infiltrate. Sats 95. Physical Exam Vital signs: Vital Signs 03/16/18 13:00 03/16/18 14:00 03/16/18 15:00 Temperature Pulse Rate 94 H 84 91 H Respiratory Rate 23 23 20 Blood Pressure 101/49 L 102/51 L 85/43 L Pulse Oximetry 97 97 99 03/16/18 15:53 03/16/18 16:00 03/16/18 18:00 Temperature 97.5 F L Pulse Rate 86 82 86 Respiratory Rate 20 21 Blood Pressure 94/50 L Pulse Oximetry 100 03/16/18 19:50 03/16/18 20:00 03/16/18 22:00 Temperature 98.3 F Pulse Rate 77 73 72 Respiratory Rate 22 20 Blood Pressure 87/44 L Pulse Oximetry 100 100 03/16/18 23:56 03/17/18 00:00 03/17/18 02:00 Temperature 99 F Pulse Rate 75 77 77 Respiratory Rate 18 18 Blood Pressure 97/46 L Pulse Oximetry 97 03/17/18 03:53 03/17/18 04:00 03/17/18 06:00 Temperature 98.9 F Pulse Rate 79 74 84 Respiratory Rate 18 Blood Pressure 100/49 L Pulse Oximetry 98 100 03/17/18 07:00 03/17/18 07:45 03/17/18 08:00 Temperature Pulse Rate 66 77 Respiratory Rate 18 Blood Pressure Pulse Oximetry 98 03/17/18 11:00 Temperature Pulse Rate 72 Respiratory Rate 18 Blood Pressure Pulse Oximetry Intake & Output 03/16/18 03/17/18 03/17/18 18:59 06:59 18:59 Intake Total 160 / 160 728 / 728 Output Total 525 / 525 950 / 950 Balance -365 / -365 -222 / -222 Intake: Tube Feeding 160 / 160 488 / 488 Tube Irrigant 120 / 120 Water Bolus Amount 120 / 120 Output: Urine 650 / 650 Urine Amount (Catheter) 400 / 400 Female External 400 / 400 Gastric Drainage 125 / 125 300 / 300 Pre-Hospital Gastrojejunostomy 125 / 125 300 / 300 Tube Other: # Voids 2 # Incontinent Voids 0 Date of Last Bowel Movement 03/14/18 03/14/18 03/14/18 # Bowel Movements 0 Narrative: GENERAL: Elderly W/F alert and in Mild distress and has a Trach tube SKIN: Warm and dry. HEAD: Normocephalic.Alert and responds well. EYES: No scleral icterus. No injection or drainage. NECK: Supple, trachea midline. No JVD or lymphadenopathy. CARDIOVASCULAR: Irregular rate and rhythm without murmurs, gallops, or rubs. RESPIRATORY: Breath sounds equal bilaterally. Occ Basal Crackles and No wheeze. GASTROINTESTINAL: Abdomen soft, non-tender, nondistended. MUSCULOSKELETAL: No cyanosis, or edema. BACK: Nontender without obvious deformity. alert and moves all. - Urinary Catheter Management Female External Cath placed during this visit: no Indwelling Urethral Catheter Cath placed during this visit: yes, but has since been removed by the nurse Reason for continuing: Hourly intake/output Insertion date: 03/06/18 Insertion time: 18:00 Removal date: 03/10/18 Removal time: 17:00 Results - Labs CBC & Chem 7: 03/16/18 08:28 03/16/18 23:45 Laboratory Results - last 24 hr 03/16/18 03/16/18 03/17/18 18:30 23:45 01:11 Potassium 3.9 POC Glucose 174 H 142 H Phosphorus 3.9 D 03/17/18 05:00 Potassium POC Glucose 128 H Phosphorus Microbiology 03/15/18 17:26 Sputum - Tracheal Aspirate Gram Stain - Final 03/15/18 17:26 Sputum - Tracheal Aspirate Sputum Culture - Preliminary No growth in 24 hours - Imaging Impressions Chest X-Ray 03/17/18 00:00 CONCLUSION: No significant change. Persistent opacity remains in both lungs right greater than left. Chest X-Ray 03/17/18 11:17 CONCLUSION: Overall stable appearance of the chest. 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 Cont on T Bar 30 % as long as tolerated 2. Trach care and lavage PRN 3. Continue Duo nebs q6h 4. PT evaluation to help activity 5. CXR , in am. 6. Will inflate cuff on Trach tube. 7. Tube feeds at 60 CC. 8. Antibiotics per Dr Caro (7) Aspiration pneumonia Qualifiers: Aspiration pneumonia type: unspecified Laterality: unspecified laterality Lung location: unspecified part of lung Qualified Code(s): J69.0 - Pneumonitis due to inhalation of food and vomit
--- NOTE | 2018-03-17 14:12 | P.PNCC ---
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 Hooper and Dr. Pineda (completed March 2015) with followup imaging negative for residual disease (05/2015, 09/2015). She was recently admitted to [facility] hospitalist service on after she presented with anemia with hemoglobin of 6.3, dysphagia and failure to thrive. She previously had G/J tube that became dislodged in May and she had been drinking nutritional shakes at home but had progressive difficulty with swallowing and developed cachexia. Modified barium swallow confirmed aspiration and she underwent laparoscopic GJ placement [address] Kraus. She had been n.p.o. and receiving continuous jejunal tube feeds when she developed severe respiratory distress and hypoxia requiring intubation 02/22/18. She had obvious evidence of aspiration on intubation. CT neck showed no e/o laryngeal mass. She was evaluated by ENT and underwent laryngoscopy that showed no evidence of disease recurrence and findings were consistent with radiation induced scarring. She was extubated 02/25. She was ultimately discharged to assisted 03/03/18. She again presented to [facility] with respiratory failure. Reportedly sats were in the 50s upon their arrival. She was intubated at the scene. Reportedly a large amount of secretions suctioned out post intubation. White blood cell count was 14. She was hypotensive at [place] where she was administered 2 L normal saline bolus. ED physician then placed right femoral central line after unsuccessful placement right IJ central line. Levophed drip was started. Her son states he is a physician's assistant project engineer in the field of critical care and expresses frustration with recurrent respiratory failure. States she had jejunal tube feeds running at goal but had not taken anything p.o. Requests ENT reconsultation for recommendations for tracheostomy. 03/08: Afebrile. Resting in bed comfortably in no acute distress. Nods head appropriately to questions. Moves all 4 extremities spontaneously. Tube feeds currently at 40 cc an hour. Remains on norepinephrine 8 mg/min. Discussed with Alireza Whitten/healthcare proxy and son. Requesting tracheostomy. He will be here this afternoon discussed with mother and will consult once verified consent. 03/09: Afebrile. Remains on norepinephrine drip at 7 mcg/min. Consent for percutaneous tracheostomy. Consult placed. Appears comfortable. Received 1 unit PRBCs overnight for a total of 2 since admission. Repeat hemoglobin pending. 03/10: Resting comfortably in bed. Previously requesting DNR status and changing her mind. Emotional. But the headache no requesting glasses as she is severely nearsighted and eardrops for her right ear. These been ordered and addressed. Plan for percutaneous tracheostomy at noon with Dr. Kraus 03/11 n.p.o. after midnight except for medications 03/11: Patient has glasses on is feeling better. Plan for percutaneous tracheostomy at noon today. No bowel movement since admission. 03/12: Resting in room. Very emotional. Will attempt CPAP trials today. Tube feeds at goal. No bowel movement since admission. See orders for additional bowel medications. Denies abdominal pain. KUB nonspecific bowel gas pattern. Nontender. 03/13: no complaints. resting comfortably. still weaning pressure support. 03/14: no changes. no acute events. still on the vent, although weaning pressure support. 03/15: new hypotension associated with new-onset acute nausea/vomiting abdominal pain. no guarding or rebound, but significantly diffusely tender. diarrhea is significant. sent stat labs, ordered ct abd/pelvis. ordered iv fluid bolus. may require vasopressors. 03/16: hypotension resolved. abdominal pain improving. CT abd/pelvis without acute change or pathology. remains on t-piece. plan for esophageal dilation tomorrow. Subjective: 03/17: aspiration event today with trach cuff deflated: clear evidence that patient's severe dysphagia and inability to protect airway means we should not pursue capping trach or decannulating. otherwise remains on trach collar. GI postponing esophageal dilation. I do not see a clear reason to keep the patient in the hospital at this point, and we will start looking for placement options for her. patient denies complaints. Objective Vital Signs / I&O: Vital Signs 03/16/18 15:00 03/16/18 15:53 03/16/18 16:00 Temperature 36.4 C L Pulse Rate 91 H 86 82 Respiratory Rate 20 20 21 Blood Pressure 85/43 L 94/50 L Pulse Oximetry 99 100 03/16/18 18:00 03/16/18 19:50 03/16/18 20:00 Temperature 36.8 C Pulse Rate 86 77 73 Respiratory Rate 22 20 Blood Pressure 87/44 L Pulse Oximetry 100 100 03/16/18 22:00 03/16/18 23:56 03/17/18 00:00 Temperature 37.2 C Pulse Rate 72 75 77 Respiratory Rate 18 18 Blood Pressure 97/46 L Pulse Oximetry 97 03/17/18 02:00 03/17/18 03:53 03/17/18 04:00 Temperature 37.2 C Pulse Rate 77 79 74 Respiratory Rate 18 Blood Pressure 100/49 L Pulse Oximetry 98 100 03/17/18 06:00 03/17/18 07:00 03/17/18 07:45 Temperature Pulse Rate 84 66 Respiratory Rate 18 Blood Pressure Pulse Oximetry 98 03/17/18 08:00 03/17/18 11:00 Temperature Pulse Rate 77 72 Respiratory Rate 18 Blood Pressure Pulse Oximetry Intake & Output 03/16/18 03/17/18 03/17/18 18:59 06:59 18:59 Intake Total 160 / 160 728 / 728 Output Total 525 / 525 950 / 950 Balance -365 / -365 -222 / -222 Intake: Tube Feeding 160 / 160 488 / 488 Tube Irrigant 120 / 120 Water Bolus Amount 120 / 120 Output: Urine 650 / 650 Urine Amount (Catheter) 400 / 400 Female External 400 / 400 Gastric Drainage 125 / 125 300 / 300 Pre-Hospital Gastrojejunostomy 125 / 125 300 / 300 Tube Other: # Voids 2 # Incontinent Voids 0 Date of Last Bowel Movement 03/14/18 03/14/18 03/14/18 # Bowel Movements 0 Result Diagrams: 03/16/18 08:28 03/16/18 23:45 Objective Remarks: GENERAL: elderly female, frail, lying in bed, no acute distress. SKIN: Warm and dry. HEAD: Atraumatic. Normocephalic. EYES: Pupils equal and round. No scleral icterus. No injection or drainage. Glasses are in place. ENT: No nasal bleeding or discharge. Mucous membranes pink and moist. s/p trach. NECK: Trachea midline. No JVD. #8 Shiley trach is clean dry and intact without bleeding CARDIOVASCULAR: normal rate, RR. sinus. RESPIRATORY: equal chest rise. on t-piece today GASTROINTESTINAL: Abdomen soft, nondistended. nontender. GJ tube intact without signs of bleeding or erythema. MUSCULOSKELETAL: Extremities with trace bilateral upper extremity edema. No obvious deformities. NEUROLOGICAL: Awake and alert. Following commands. Moves all 4 extremities spontaneously. Assessment and Plan - Assessment and Plan Plan: Assessment: 73yF with head and neck cancer, now s/p trach/peg. continue PT and rehab efforts. GI postponing dilation. no . NEURO/PSYCH: Adjustment disorder with depression Allergic rhinitis Target RASS 0 off sedation. Continue escitalopram 20 mg daily/home medication via G-tube Acetaminophen 650 mg every 6 hours by G-tube for fever Continue cetirizine 10 mg daily for allergic rhinitis RESP: Acute now chronic hypoxic and hypercarbic respiratory failure 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 Noted initial CXR with pulm edema pattern, may be secondary to negative pressure pulm edema (exacerbated by low oncotic pressure) RUL spiculated lung mass on CT chest -follow-up with Dr. Martin t-piece as tolerated. Albuterol/ipratropium aerosols every 4 hours with albuterol aerosols every 2 hours as needed for dyspnea Methylpred 40 iv q8h transitioned to prednisone 20mg daily Dr. Kunz discussed with son. Agreed with tracheostomy option see his note. Status post percutaneous tracheostomy Dr. Kraus 03/11 Dr. Martin/pulmonary following CV: Hypotension -possibly sepsis with elevated pro-calcitonin- resolved Chronic systolic heart failure ejection fraction 35% New hypotension- resolved 2D echo 02/23/18 ejection fraction 35%, anterior septal hypokinesis. Biatrial dilation. Serial troponins/EKG essentially negative lactate normal. GI: Severe pharyngeal phase dysphagia -diagnosed by modified barium swallow 02/05/18 Proximal esophageal Stricture, radiation induced Rendon's esophagus GERD Severe chronic protein energy malnutrition Hypoalbuminemia new abdominal pain, nausea, vomiting, diarrhea 03/15- resolved G/J tube in place flush with 60 cc free water every 8 hours Vital 1.5 55/hr per nutrition recs via jejunostomy. G tube to gravity with medicines not being induced. Pt known to Dr. Aly, with esophageal dilation in the past. Have been planning outpatient esophageal dilation. Plan outpatient/upper esophageal stricture dilatation saturday. Lansoprazole for GI prophylaxis. On omeprazole 20 mg daily at home CT abd/pelvis with iv and po contrast 03/15: no acute disease. c. diff: pending g-tube to gravity iv zofran for nausea. FEN/RENAL: Acute kidney injury- resolved Monitor intake and output. Monitor electrolytes and replace as indicated per electrolyte replacement protocol ID: MRSA/Caitlyn tropicalis UTI Aspiration pneumonitis/pneumonia s/p full course of abx: cefepime, flagyl, vanc, fluc. Mupirocin 2% to nares twice daily for MRSA nares culture for new fever. recent aspiration event today does not appear to be clinically infectious. will hold off on empiric abx at this time. Pertinent cultures Recheck blood cultures 2 03/09 no growth today 03/08 -sputum -MRSA 03/06 -blood cultures 2 -likely contaminant staph hominis- 03/06 -UA -MRSA/Caitlyn tropicalis c. diff pending cbc. HEME: Leukocytosis- resolved Normocytic anemia History of laryngeal cancer Followed by Dr. Pineda for followup h/o laryngeal cancer. Prior radiation and chemo completed 03/2015. Transfuse 2 units PRBCs since admission ENDO: Hypothyroidism Sliding scale insulin with insulin aspart with Accu-Cheks every 6 hours to maintain glycemic Continue levothyroxine 100 mcg by tube daily PROPH: SCDs for DVT prophylaxis. Heparin subcu. Lansoprazole for stress ulcer prophylaxis and history of GERD. ACCESS: Peripheral IVs for now. OVERALL IMPRESSION: remains deconditioned. PT efforts continue. needs placement. dispo: no need for ICU services at this time. will transfer to floor with hospitalist services.
--- NOTE | 2018-03-17 14:24 | P.PNGI ---
Subjective Interval history: patient's blood pressure is improved. Some aspiration noted when patients tracheostomy cuff deflated. no gross bleeding noted. Hemoglobin stable 7.6. no nausea, vomiting or subjective abdominal pain Physical Exam Vital signs: Vital Signs 03/16/18 15:00 03/16/18 15:53 03/16/18 16:00 Temperature 97.5 F L Pulse Rate 91 H 86 82 Respiratory Rate 20 20 21 Blood Pressure 85/43 L 94/50 L Pulse Oximetry 99 100 03/16/18 18:00 03/16/18 19:50 03/16/18 20:00 Temperature 98.3 F Pulse Rate 86 77 73 Respiratory Rate 22 20 Blood Pressure 87/44 L Pulse Oximetry 100 100 03/16/18 22:00 03/16/18 23:56 03/17/18 00:00 Temperature 99 F Pulse Rate 72 75 77 Respiratory Rate 18 18 Blood Pressure 97/46 L Pulse Oximetry 97 03/17/18 02:00 03/17/18 03:53 03/17/18 04:00 Temperature 98.9 F Pulse Rate 77 79 74 Respiratory Rate 18 Blood Pressure 100/49 L Pulse Oximetry 98 100 03/17/18 06:00 03/17/18 07:00 03/17/18 07:45 Temperature Pulse Rate 84 66 Respiratory Rate 18 Blood Pressure Pulse Oximetry 98 03/17/18 08:00 03/17/18 11:00 Temperature Pulse Rate 77 72 Respiratory Rate 18 Blood Pressure Pulse Oximetry Intake & Output 03/16/18 03/17/18 03/17/18 18:59 06:59 18:59 Intake Total 160 / 160 728 / 728 Output Total 525 / 525 950 / 950 Balance -365 / -365 -222 / -222 Intake: Tube Feeding 160 / 160 488 / 488 Tube Irrigant 120 / 120 Water Bolus Amount 120 / 120 Output: Urine 650 / 650 Urine Amount (Catheter) 400 / 400 Female External 400 / 400 Gastric Drainage 125 / 125 300 / 300 Pre-Hospital Gastrojejunostomy 125 / 125 300 / 300 Tube Other: # Voids 2 # Incontinent Voids 0 Date of Last Bowel Movement 03/14/18 03/14/18 03/14/18 # Bowel Movements 0 - Constitutional no acute distress - Routine Neck Exam Present: supple - Routine Cardiovascular Exam Present: RRR - Routine Abdominal Exam Present: soft. Absent: tenderness, distended - Urinary Catheter Management Female External Cath placed during this visit: no Indwelling Urethral Catheter Cath placed during this visit: yes, but has since been removed by the nurse Reason for continuing: Hourly intake/output Insertion date: 03/06/18 Insertion time: 18:00 Removal date: 03/10/18 Removal time: 17:00 Results - Labs CBC & Chem 7: 03/16/18 08:28 03/16/18 23:45 Laboratory Results - last 24 hr 03/16/18 03/16/18 03/17/18 18:30 23:45 01:11 Potassium 3.9 POC Glucose 174 H 142 H Phosphorus 3.9 D 03/17/18 05:00 Potassium POC Glucose 128 H Phosphorus Microbiology 03/15/18 17:26 Sputum - Tracheal Aspirate Gram Stain - Final 03/15/18 17:26 Sputum - Tracheal Aspirate Sputum Culture - Final No growth in 48 hours - Imaging Impressions Chest X-Ray 03/17/18 00:00 CONCLUSION: No significant change. Persistent opacity remains in both lungs right greater than left. Chest X-Ray 03/17/18 11:17 CONCLUSION: Overall stable appearance of the chest. Assessment and Plan - Plan Impression- 1. oral pharyngeal dysphagia / throat cancer -status post feeding tube and now tracheostomy. still evidence of aspiration 2. 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 New onset of nausea, vomiting, abdominal pain and diarrhea. resolved 4. Anemiano overt GI bleeding noted 5. hypotension-improved PLAN: 1. will re-evaluate her tomorrow to decide the best time for upper endoscopy with dilatation with fluoroscopy
[2018-03-17] MEDS: Polyethylene Glycol 3350 17 GM Packet PO SCH ×2 (18:56→20:00)
[2018-03-17 22:24] LABS: Hematocrit 21.9 % (35.0-46.0); Hemoglobin 7.4 gm/dL (11.6-15.3); Mean Corpuscular Hemoglobin 31.1 pg (27.0-34.0); Mean Corpuscular Volume 91.5 fL (80.0-100.0); Mean Platelet Volume 10.7 fL (7.0-11.0); Platelet Count 101 th/mm3 (150-450); Red Blood Count 2.39 mil/mm3 (4.00-5.30); White Blood Count 7.4 th/mm3 (4.0-11.0)
[2018-03-17 22:48] LABS: Calcium 8.3 mg/dL (8.5-10.1)
[2018-03-17 22:49] LABS: Vancomycin,Random 15.1 Comment
[2018-03-18] MEDS: Hypromellose 0.3% Opth Gel 10 GM Bottle EACH EYE SCH ×3 (01:49→17:50)
[2018-03-18 05:41] LABS: Hematocrit 22.6 % (35.0-46.0); Hemoglobin 7.5 gm/dL (11.6-15.3); Mean Corpuscular HGB Conc 33.2 % (32.0-36.0); Mean Corpuscular Hemoglobin 30.9 pg (27.0-34.0); Mean Corpuscular Volume 92.9 fL (80.0-100.0); Mean Platelet Volume 12.3 fL (7.0-11.0); Platelet Count 108 th/mm3 (150-450); Red Blood Count 2.44 mil/mm3 (4.00-5.30); Red Cell Distribution Width 16.9 % (11.6-17.2); White Blood Count 6.8 th/mm3 (4.0-11.0)
[2018-03-18 05:56] LABS: Calcium 8.1 mg/dL (8.5-10.1); Carbon Dioxide 28.6 meq/L (21.0-32.0)
[2018-03-18] MEDS: Insulin NovoLOG Aspart Correctional Sugar Inj SQ SCH ×3 (06:02→20:48)
[2018-03-18] MEDS: Oral Hygiene Kit OROPHARYNG SCH ×3 (06:04→17:50)
[2018-03-18] MEDS: Levothyroxine 100 MCG Tablet NG/OG SCH (06:04)
--- NOTE | 2018-03-18 09:28 | P.PNGI ---
Subjective Interval history: RN reports that patient's tube feedings are not tolerated with resulting aspiration. CT scan this weekend shows a G-tube in the antrum. Patient actually has a GJ-tube and perhaps the J-tube is no longer in the duodenum. Patient's son reports that previous gastric feedings were not tolerated and that is why she has a J-tube. No overt GI bleeding Physical Exam Vital signs: Vital Signs 03/17/18 10:00 03/17/18 11:00 03/17/18 12:00 Temperature Pulse Rate 90 65 Respiratory Rate 47 H 30 H Blood Pressure 98/65 L 101/52 L 108/52 L Pulse Oximetry 95 98 03/17/18 12:03 03/17/18 13:00 03/17/18 14:00 Temperature Pulse Rate 76 74 84 Respiratory Rate 22 35 H Blood Pressure 108/51 L 117/56 L Pulse Oximetry 97 83 L 03/17/18 15:00 03/17/18 16:00 03/17/18 20:00 Temperature 98.7 F Pulse Rate 69 70 71 Respiratory Rate 25 H 28 H 22 Blood Pressure 103/53 L 108/51 L 99/49 L Pulse Oximetry 98 98 98 03/17/18 23:25 03/18/18 00:00 03/18/18 02:04 Temperature 98.6 F Pulse Rate 65 71 Respiratory Rate 18 22 Blood Pressure 105/52 L Pulse Oximetry 99 95 03/18/18 03:13 03/18/18 04:00 03/18/18 07:43 Temperature 98.7 F Pulse Rate 60 68 60 Respiratory Rate 18 22 20 Blood Pressure 100/49 L Pulse Oximetry 94 L 94 L Intake & Output 03/17/18 03/18/18 03/18/18 18:59 06:59 18:59 Intake Total 806 / 806 332 / 332 Output Total 800 / 800 350 / 350 Balance / 6 -18 -18 Weight 59.9 kg Intake: Tube Feeding 656 / 656 212 / 212 Tube Irrigant 150 / 150 Water Bolus Amount 120 / 120 Output: Urine 800 / 800 Urine Amount (Catheter) 150 / 150 Female External 150 / 150 Gastric Drainage 200 / 200 Pre-Hospital Gastrojejunostomy 200 / 200 Tube Other: # Voids 2 Date of Last Bowel Movement 03/14/18 03/14/18 # Bowel Movements 0 - Constitutional no acute distress - Routine Neck Exam Absent: lymphadenopathy - Routine Respiratory Exam Absent: rales - Routine Cardiovascular Exam Present: RRR - Routine Abdominal Exam Present: soft, normoactive bowel sounds. Absent: tenderness - Routine Extremities Exam Absent: cyanosis - Routine Neurological Exam Present: alert, moving all extremities - Urinary Catheter Management Female External Cath placed during this visit: no Indwelling Urethral Catheter Cath placed during this visit: yes, but has since been removed by the nurse Reason for continuing: Hourly intake/output Insertion date: 03/06/18 Insertion time: 18:00 Removal date: 03/10/18 Removal time: 17:00 Results - Labs CBC & Chem 7: 03/18/18 04:42 03/18/18 04:42 Laboratory Results - last 24 hr 03/17/18 03/17/18 03/17/18 16:55 21:31 21:31 WBC 7.4 RBC 2.39 L Hgb 7.4 L Hct 21.9 L MCV 91.5 MCH 31.1 MCHC 34.0 RDW 17.0 Plt Count 101 L MPV 10.7 Sodium 143 Potassium 4.0 Chloride 108 H Carbon Dioxide 29.0 Anion Gap 6 BUN 32 H Creatinine 1.30 H Estimated GFR 40 L POC Glucose 168 H Random Glucose 122 H Calcium 8.3 L Random Vancomycin 15.1 03/17/18 03/18/18 03/18/18 23:42 04:42 04:42 WBC 6.8 RBC 2.44 L Hgb 7.5 L Hct 22.6 L MCV 92.9 MCH 30.9 MCHC 33.2 RDW 16.9 Plt Count 108 L MPV 12.3 H Sodium 142 Potassium 4.0 Chloride 108 H Carbon Dioxide 28.6 Anion Gap 5 BUN 32 H Creatinine 1.20 H Estimated GFR 44 L POC Glucose 125 H Random Glucose 82 Calcium 8.1 L Random Vancomycin Microbiology 03/15/18 17:26 Sputum - Tracheal Aspirate Gram Stain - Final 03/15/18 17:26 Sputum - Tracheal Aspirate Sputum Culture - Final No growth in 48 hours - Imaging Impressions Chest X-Ray 03/17/18 11:17 CONCLUSION: Overall stable appearance of the chest. Assessment and Plan - Plan Impression- 1. oral pharyngeal dysphagia / throat cancer -status post feeding tube and now tracheostomy. off the vent. on a T-piece 2. 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 New onset of nausea, vomiting, abdominal pain and diarrhea. resolved 4. Anemiano overt GI bleeding noted 5. hypotension-improved 6. Tube feeding intolerance-see above PLAN: 1. The feeding tube was placed by surgery and if it is out of position it needs to be replaced into the jejunum. Either they or radiology can do this. May not be possible endoscopically since she has a tight stricture and we may not be able to pass the scope 2. If she does well plan on retrying the upper endoscopy with esophageal dilatation tomorrow using fluoroscopy. The patient understands the indications , risks, complications, benefits, alternatives (upper GI series) and limitations regarding an upper endoscopy include risk of bleeding, perforation, infection, arrhythmias, mediastinitis if a dilatation is done, as well as a small possibility of , etc. 3. Dr. Catalan will see the patient tomorrow
--- NOTE | 2018-03-18 10:07 | P.PNIM ---
Subjective Interval history: The patient was resting comfortably in bed. She wanted to know when the sutures around her trach would come out. She wanted to know when she would be transferred to the floor. She denied any acute complaints. Tolerating tube feeds. She denies any pain. Physical Exam Vital signs: Vital Signs 03/17/18 11:00 03/17/18 12:00 03/17/18 12:03 Temperature Pulse Rate 65 76 Respiratory Rate 30 H Blood Pressure 101/52 L 108/52 L Pulse Oximetry 98 03/17/18 13:00 03/17/18 14:00 03/17/18 15:00 Temperature Pulse Rate 74 84 69 Respiratory Rate 22 35 H 25 H Blood Pressure 108/51 L 117/56 L 103/53 L Pulse Oximetry 97 83 L 98 03/17/18 16:00 03/17/18 20:00 03/17/18 23:25 Temperature 98.7 F Pulse Rate 70 71 65 Respiratory Rate 28 H 22 18 Blood Pressure 108/51 L 99/49 L Pulse Oximetry 98 98 03/18/18 00:00 03/18/18 02:04 03/18/18 03:13 Temperature 98.6 F Pulse Rate 71 60 Respiratory Rate 22 18 Blood Pressure 105/52 L Pulse Oximetry 99 95 03/18/18 04:00 03/18/18 07:43 Temperature 98.7 F Pulse Rate 68 60 Respiratory Rate 22 20 Blood Pressure 100/49 L Pulse Oximetry 94 L 94 L Intake & Output 03/17/18 03/18/18 03/18/18 18:59 06:59 18:59 Intake Total 806 / 806 332 / 332 Output Total 800 / 800 350 / 350 Balance / -18 -18 Weight 59.9 kg Intake: Tube Feeding 656 / 656 212 / 212 Tube Irrigant 150 / 150 Water Bolus Amount 120 / 120 Output: Urine 800 / 800 Urine Amount (Catheter) 150 / 150 Female External 150 / 150 Gastric Drainage 200 / 200 Pre-Hospital Gastrojejunostomy 200 / 200 Tube Other: # Voids 2 Date of Last Bowel Movement 03/14/18 03/14/18 # Bowel Movements 0 Narrative: GENERAL: Frail, lying in bed, no acute distress. SKIN: Warm and dry. HEAD: Atraumatic. Normocephalic. EYES: Pupils equal and round. No scleral icterus. No injection or drainage. Glasses are in place. ENT: No nasal bleeding or discharge. Mucous membranes pink and moist. s/p trach. NECK: Trachea midline. No JVD. CARDIOVASCULAR: normal rate, RR. RESPIRATORY: Coarse breath sounds. GASTROINTESTINAL: Abdomen soft, nondistended. nontender. GJ tube intact without signs of bleeding or erythema. MUSCULOSKELETAL: Extremities with trace bilateral upper extremity edema. No obvious deformities. NEUROLOGICAL: Awake and alert. Following commands. Moves all 4 extremities spontaneously. - Urinary Catheter Management Female External Cath placed during this visit: no Indwelling Urethral Catheter Cath placed during this visit: yes, but has since been removed by the nurse Reason for continuing: Hourly intake/output Insertion date: 03/06/18 Insertion time: 18:00 Removal date: 03/10/18 Removal time: 17:00 Results - Labs CBC & Chem 7: 03/18/18 04:42 03/18/18 04:42 Laboratory Results - last 24 hr 03/17/18 03/17/18 03/17/18 16:55 21:31 21:31 WBC 7.4 RBC 2.39 L Hgb 7.4 L Hct 21.9 L MCV 91.5 MCH 31.1 MCHC 34.0 RDW 17.0 Plt Count 101 L MPV 10.7 Sodium 143 Potassium 4.0 Chloride 108 H Carbon Dioxide 29.0 Anion Gap 6 BUN 32 H Creatinine 1.30 H Estimated GFR 40 L POC Glucose 168 H Random Glucose 122 H Calcium 8.3 L Random Vancomycin 15.1 03/17/18 03/18/18 03/18/18 23:42 04:42 04:42 WBC 6.8 RBC 2.44 L Hgb 7.5 L Hct 22.6 L MCV 92.9 MCH 30.9 MCHC 33.2 RDW 16.9 Plt Count 108 L MPV 12.3 H Sodium 142 Potassium 4.0 Chloride 108 H Carbon Dioxide 28.6 Anion Gap 5 BUN 32 H Creatinine 1.20 H Estimated GFR 44 L POC Glucose 125 H Random Glucose 82 Calcium 8.1 L Random Vancomycin Microbiology 03/15/18 17:26 Sputum - Tracheal Aspirate Gram Stain - Final 03/15/18 17:26 Sputum - Tracheal Aspirate Sputum Culture - Final No growth in 48 hours - Imaging Impressions Chest X-Ray 03/17/18 11:17 CONCLUSION: Overall stable appearance of the chest. 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 Noted initial CXR with pulm edema pattern, may be secondary to negative pressure pulm edema (exacerbated by low oncotic pressure) RUL spiculated lung mass on CT chest -follow-up with Dr. Martin -t-piece as tolerated. -Albuterol/ipratropium aerosols every 4 hours with albuterol aerosols every 2 hours as needed for dyspnea -Methylpred transitioned to prednisone 20mg daily -Status post percutaneous tracheostomy Dr. Kraus 03/11 -Dr. Martin/pulmonary following -PT Hypotension -possibly sepsis with elevated pro-calcitonin- resolved Chronic systolic heart failure ejection fraction 35% New hypotension- resolved 2D echo 02/23/18 ejection fraction 35%, anterior septal hypokinesis. Biatrial dilation. Serial troponins/EKG essentially negative lactate normal. Severe pharyngeal phase dysphagia -diagnosed by modified barium swallow 02/05/18 Proximal esophageal Stricture, radiation induced Rendon's esophagus GERD Severe chronic protein energy malnutrition Hypoalbuminemia new abdominal pain, nausea, vomiting, diarrhea 03/15- resolved -G/J tube in place flush with 60 cc free water every 8 hours -Vital 1.5 55/hr per nutrition recs via jejunostomy. G tube to gravity with medicines not being induced. -Pt known to Dr. Aly, with esophageal dilation in the past. Have been planning esophageal dilation. -Lansoprazole for GI prophylaxis. On omeprazole 20 mg daily at home -CT abd/pelvis with iv and po contrast 03/15: no acute disease. -g-tube to gravity -iv zofran for nausea. MRSA/Caitlyn tropicalis UTI Aspiration pneumonitis/pneumonia -s/p full course of abx: cefepime, flagyl, vanc, fluc. -Mupirocin 2% to nares twice daily for MRSA nares -culture for new fever. Pertinent cultures: 03/08 -sputum -MRSA 03/06 -blood cultures 2 -likely contaminant staph hominis- 03/06 -UA -MRSA/Caitlyn tropicalis Normocytic anemia History of laryngeal cancer -Followed by Dr. Pineda for followup h/o laryngeal cancer. -Prior radiation and chemo completed 03/2015. -Transfuse 2 units PRBCs since admission Adjustment disorder with depression Allergic rhinitis -Continue escitalopram 20 mg daily/home medication via G-tube -Acetaminophen 650 mg every 6 hours by G-tube for fever -Continue cetirizine 10 mg daily for allergic rhinitis PROPH: SCDs for DVT prophylaxis. Heparin subcu. Lansoprazole for stress ulcer prophylaxis and history of GERD.
[2018-03-18] MEDS: predniSONE 20 MG Tablet PO SCH (15:31)
[2018-03-18] MEDS: Polyethylene Glycol 3350 17 GM Packet PO SCH ×2 (15:32→20:52)
[2018-03-18] MEDS: Senna/Docusate Sodium 8.6/50 MG Tablet PO SCH ×2 (15:32→20:52)
[2018-03-18] MEDS: Ascorbic Acid 500 MG Tablet G-TUBE SCH ×2 (15:33→21:12)
[2018-03-18] MEDS: fentaNYL Citrate Inj 100 MCG/2 ML Ampul IV.PUSH PRN (16:19)
[2018-03-18] MEDS: Chlorhexidine 0.12% Oral Kit 15 ML UDC OROPHARYNG SCH ×2 (17:45→20:00)
[2018-03-18] MEDS: Heparin - SQ 10,000 UNITS/ML Vial SQ SCH ×2 (17:46→20:51)
[2018-03-18] MEDS: Mupirocin 2% Nasal Oint Topical Syringe EACH NARE SCH ×2 (17:46→21:13)
--- NOTE | 2018-03-18 19:16 | P.PN ---
Subjective Interval history: Alert and is on a T bar at 30 %. Trach sutures in. will go for EGD and esophageal dilation. Physical Exam Vital signs: Vital Signs 03/17/18 20:00 03/17/18 23:25 03/18/18 00:00 Temperature 98.7 F 98.6 F Pulse Rate 71 65 71 Respiratory Rate 22 18 22 Blood Pressure 99/49 L 105/52 L Pulse Oximetry 98 99 03/18/18 02:04 03/18/18 03:13 03/18/18 04:00 Temperature 98.7 F Pulse Rate 60 68 Respiratory Rate 18 22 Blood Pressure 100/49 L Pulse Oximetry 95 94 L 03/18/18 07:43 03/18/18 08:00 03/18/18 09:00 Temperature Pulse Rate 60 64 75 Respiratory Rate 20 26 H 23 Blood Pressure 101/49 L 110/53 L Pulse Oximetry 94 L 98 90 L 03/18/18 10:00 03/18/18 11:00 03/18/18 11:21 Temperature Pulse Rate 67 67 67 Respiratory Rate 24 26 H 24 Blood Pressure 105/51 L 105/51 L Pulse Oximetry 91 L 93 L 03/18/18 12:00 03/18/18 13:00 03/18/18 14:00 Temperature Pulse Rate 73 70 71 Respiratory Rate 30 H 29 H 29 H Blood Pressure 93/46 L 100/48 L 106/51 L Pulse Oximetry 92 L 92 L 95 03/18/18 15:12 03/18/18 16:00 Temperature Pulse Rate 81 70 Respiratory Rate 20 Blood Pressure Pulse Oximetry Intake & Output 03/18/18 03/18/18 03/19/18 06:59 18:59 06:59 Intake Total 332 / 332 Output Total 350 / 350 Balance - Weight 59.9 kg Intake: Tube Feeding 212 / 212 Water Bolus Amount 120 / 120 Output: Urine Amount (Catheter) 150 / 150 Female External 150 / 150 Gastric Drainage 200 / 200 Pre-Hospital Gastrojejunostomy 200 / 200 Tube Other: # Voids 2 Date of Last Bowel Movement 03/14/18 03/14/18 # Bowel Movements 0 Narrative: GENERAL:Elderly W/F pale no acute distress. SKIN: Warm and dry. HEAD: Atraumatic. Normocephalic. EYES: Pupils equal and round. No scleral icterus. No injection or drainage. ENT: No nasal bleeding or discharge. Mucous membranes pink and moist. NECK: Trachea midline. No JVD. Trach is in . CARDIOVASCULAR: normal rate,S1 S2 RR. RESPIRATORY: Coarse breath sounds.Occ Crackles on right. GASTROINTESTINAL: Abdomen soft, nondistended. nontender. GJ tube intact without signs of bleeding or erythema. MUSCULOSKELETAL: Extremities with trace bilateral upper extremity edema. No obvious deformities. NEUROLOGICAL: Awake and alert. Following commands. Moves all 4 extremities spontaneously. - Urinary Catheter Management Female External Cath placed during this visit: no Indwelling Urethral Catheter Cath placed during this visit: yes, but has since been removed by the nurse Reason for continuing: Hourly intake/output Insertion date: 03/06/18 Insertion time: 18:00 Removal date: 03/10/18 Removal time: 17:00 Results - Labs CBC & Chem 7: 03/18/18 04:42 03/18/18 04:42 Laboratory Results - last 24 hr 03/17/18 03/17/18 03/17/18 21:31 21:31 23:42 WBC 7.4 RBC 2.39 L Hgb 7.4 L Hct 21.9 L MCV 91.5 MCH 31.1 MCHC 34.0 RDW 17.0 Plt Count 101 L MPV 10.7 Sodium 143 Potassium 4.0 Chloride 108 H Carbon Dioxide 29.0 Anion Gap 6 BUN 32 H Creatinine 1.30 H Estimated GFR 40 L POC Glucose 125 H Random Glucose 122 H Calcium 8.3 L Random Vancomycin 15.1 03/18/18 03/18/18 03/18/18 04:42 04:42 11:09 WBC 6.8 RBC 2.44 L Hgb 7.5 L Hct 22.6 L MCV 92.9 MCH 30.9 MCHC 33.2 RDW 16.9 Plt Count 108 L MPV 12.3 H Sodium 142 Potassium 4.0 Chloride 108 H Carbon Dioxide 28.6 Anion Gap 5 BUN 32 H Creatinine 1.20 H Estimated GFR 44 L POC Glucose 96 Random Glucose 82 Calcium 8.1 L Random Vancomycin 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 - Malignant neoplasm of larynx, unspecified Status: Acute (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 Cont on T Bar 30 % as long as tolerated 2. Trach care and lavage PRN 3. Continue Duo nebs q6h 4. PT evaluation to help activity 5. OK for EGD in am 6. Will remove trach sutures next week 7. Tube feeds at 60 CC. (7) Aspiration pneumonia Qualifiers: Aspiration pneumonia type: unspecified Laterality: unspecified laterality Lung location: unspecified part of lung Qualified Code(s): J69.0 - Pneumonitis due to inhalation of food and vomit
[2018-03-18] MEDS: Potassium Chloride Inj 10 MEQ in Dextrose 5%/Lactated Ringer's 1,000 ML IV.SIG SCH (21:45)
[2018-03-19] MEDS: Insulin NovoLOG Aspart Correctional Sugar Inj SQ SCH ×4 (00:06→19:20)
[2018-03-19] MEDS: Oral Hygiene Kit OROPHARYNG SCH ×4 (00:06→19:20)
[2018-03-19] MEDS: Hypromellose 0.3% Opth Gel 10 GM Bottle EACH EYE SCH ×3 (00:06→19:20)
[2018-03-19] MEDS: fentaNYL Citrate Inj 100 MCG/2 ML Ampul IV.PUSH PRN (00:07)
[2018-03-19] MEDS: Levothyroxine 100 MCG Tablet NG/OG SCH (05:50)
[2018-03-19 07:22] LABS: Hematocrit 22.4 % (35.0-46.0); Hemoglobin 7.5 gm/dL (11.6-15.3); Mean Corpuscular HGB Conc 33.5 % (32.0-36.0); Mean Corpuscular Hemoglobin 31.3 pg (27.0-34.0); Mean Corpuscular Volume 93.6 fL (80.0-100.0); Mean Platelet Volume 10.1 fL (7.0-11.0); Platelet Count 101 th/mm3 (150-450); Red Blood Count 2.39 mil/mm3 (4.00-5.30); Red Cell Distribution Width 17.1 % (11.6-17.2); White Blood Count 4.3 th/mm3 (4.0-11.0)
[2018-03-19 07:34] LABS: Calcium 8.1 mg/dL (8.5-10.1); Carbon Dioxide 28.4 meq/L (21.0-32.0); Potassium 3.6 meq/L (3.5-5.1)
[2018-03-19] MEDS: Chlorhexidine 0.12% Oral Kit 15 ML UDC OROPHARYNG SCH ×2 (08:00→21:57)
--- NOTE | 2018-03-19 11:55 | P.PN ---
Subjective Interval history: She will go for EGD today. Has yellow trach secretions. No fever. Physical Exam Vital signs: Vital Signs 03/18/18 12:00 03/18/18 13:00 03/18/18 14:00 Temperature Pulse Rate 73 70 71 Respiratory Rate 30 H 29 H 29 H Blood Pressure 93/46 L 100/48 L 106/51 L Pulse Oximetry 92 L 92 L 95 03/18/18 15:12 03/18/18 16:00 03/18/18 17:00 Temperature Pulse Rate 81 70 68 Respiratory Rate 20 40 H 33 H Blood Pressure 99/47 L Pulse Oximetry 84 L 92 L 03/18/18 17:01 03/18/18 18:00 03/18/18 19:00 Temperature Pulse Rate 68 71 72 Respiratory Rate 34 H 32 H 35 H Blood Pressure 119/51 L 112/52 L 110/51 L Pulse Oximetry 92 L 92 L 90 L 03/18/18 19:32 03/18/18 20:00 03/18/18 20:30 Temperature 98.7 F Pulse Rate 75 82 Respiratory Rate 20 22 Blood Pressure 100/48 L Pulse Oximetry 91 L 94 L 96 03/18/18 23:48 03/19/18 00:00 03/19/18 00:48 Temperature Pulse Rate 66 74 Respiratory Rate 25 H 22 17 Blood Pressure 110/52 L Pulse Oximetry 95 03/19/18 04:00 03/19/18 04:38 03/19/18 07:38 Temperature 98.5 F Pulse Rate 69 69 80 Respiratory Rate 22 22 18 Blood Pressure 107/53 L Pulse Oximetry 98 03/19/18 07:39 03/19/18 11:08 Temperature Pulse Rate 64 Respiratory Rate 24 Blood Pressure Pulse Oximetry 100 Intake & Output 03/18/18 03/19/18 03/19/18 18:59 06:59 18:59 Intake Total 60 / 60 Output Total 500 / 500 600 / 600 Balance -500 / -500 -540 / -540 Weight 59.6 kg Intake: Oral 0 / 0 Tube Feeding 0 / 0 Water Bolus Amount 60 / 60 Output: Urine 500 / 500 Urine Amount (Catheter) 200 / 200 Female External 200 / 200 Gastric Drainage 400 / 400 Pre-Hospital Gastrojejunostomy 400 / 400 Tube Other: Date of Last Bowel Movement 03/14/18 03/14/18 03/15/18 # Bowel Movements 0 Narrative: GENERAL:Elderly W/F pale no acute distress. SKIN: Warm and dry. HEAD: Atraumatic. Normocephalic. EYES: Pupils equal and round. No scleral icterus. No injection or drainage. ENT: No nasal bleeding or discharge. Mucous membranes pink and moist. NECK: Trachea midline. No JVD. Trach is in . CARDIOVASCULAR: normal rate,S1 S2 RR. RESPIRATORY: Good breath sounds.Occ Crackles on right. GASTROINTESTINAL: Abdomen soft, nondistended. nontender. GJ tube intact without signs of bleeding or erythema. MUSCULOSKELETAL: Extremities with trace bilateral upper extremity edema. No obvious deformities. NEUROLOGICAL: Awake and alert. Following commands. Moves all 4 extremities spontaneously. - Urinary Catheter Management Female External Cath placed during this visit: no Indwelling Urethral Catheter Cath placed during this visit: yes, but has since been removed by the nurse Reason for continuing: Hourly intake/output Insertion date: 03/06/18 Insertion time: 18:00 Removal date: 03/10/18 Removal time: 17:00 Results - Labs CBC & Chem 7: 03/19/18 05:57 03/19/18 05:57 Laboratory Results - last 24 hr 03/18/18 03/19/18 03/19/18 19:32 00:03 05:50 WBC RBC Hgb Hct MCV MCH MCHC RDW Plt Count MPV Sodium Potassium Chloride Carbon Dioxide Anion Gap BUN Creatinine Estimated GFR POC Glucose 89 96 101 Random Glucose Calcium 03/19/18 03/19/18 05:57 05:57 WBC 4.3 RBC 2.39 L Hgb 7.5 L Hct 22.4 L MCV 93.6 MCH 31.3 MCHC 33.5 RDW 17.1 Plt Count 101 L MPV 10.1 Sodium 144 Potassium 3.6 Chloride 107 Carbon Dioxide 28.4 Anion Gap 9 BUN 26 H Creatinine 1.14 H Estimated GFR 47 L POC Glucose Random Glucose 89 Calcium 8.1 L 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 - Malignant neoplasm of larynx, unspecified Status: Acute (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 Cont on T Bar 30 % all the time. 2. Trach care and lavage PRN 3. Continue Duo nebs q6h 4. PT evaluation to help activity 5. Add Levaquin 500 mg daily X 7 6. Will remove trach sutures next week 7. Tube feeds at 60 CC. 8. Trach culture . Gram stain (7) Aspiration pneumonia Qualifiers: Aspiration pneumonia type: unspecified Laterality: unspecified laterality Lung location: unspecified part of lung Qualified Code(s): J69.0 - Pneumonitis due to inhalation of food and vomit
--- NOTE | 2018-03-19 11:58 | P.PNIM ---
Subjective Interval history: The patient was awaiting to go for EGD and dilatation. She had no acute complaints. Discussed with nursing. Physical Exam Vital signs: Vital Signs 03/18/18 12:00 03/18/18 13:00 03/18/18 14:00 Temperature Pulse Rate 73 70 71 Respiratory Rate 30 H 29 H 29 H Blood Pressure 93/46 L 100/48 L 106/51 L Pulse Oximetry 92 L 92 L 95 03/18/18 15:12 03/18/18 16:00 03/18/18 17:00 Temperature Pulse Rate 81 70 68 Respiratory Rate 20 40 H 33 H Blood Pressure 99/47 L Pulse Oximetry 84 L 92 L 03/18/18 17:01 03/18/18 18:00 03/18/18 19:00 Temperature Pulse Rate 68 71 72 Respiratory Rate 34 H 32 H 35 H Blood Pressure 119/51 L 112/52 L 110/51 L Pulse Oximetry 92 L 92 L 90 L 03/18/18 19:32 03/18/18 20:00 03/18/18 20:30 Temperature 98.7 F Pulse Rate 75 82 Respiratory Rate 20 22 Blood Pressure 100/48 L Pulse Oximetry 91 L 94 L 96 03/18/18 23:48 03/19/18 00:00 03/19/18 00:48 Temperature Pulse Rate 66 74 Respiratory Rate 25 H 22 17 Blood Pressure 110/52 L Pulse Oximetry 95 03/19/18 04:00 03/19/18 04:38 03/19/18 07:38 Temperature 98.5 F Pulse Rate 69 69 80 Respiratory Rate 22 22 18 Blood Pressure 107/53 L Pulse Oximetry 98 03/19/18 07:39 03/19/18 11:08 Temperature Pulse Rate 64 Respiratory Rate 24 Blood Pressure Pulse Oximetry 100 Intake & Output 03/18/18 03/19/18 03/19/18 18:59 06:59 18:59 Intake Total 60 / 60 Output Total 500 / 500 600 / 600 Balance -500 / -500 -540 / -540 Weight 59.6 kg Intake: Oral 0 / 0 Tube Feeding 0 / 0 Water Bolus Amount 60 / 60 Output: Urine 500 / 500 Urine Amount (Catheter) 200 / 200 Female External 200 / 200 Gastric Drainage 400 / 400 Pre-Hospital Gastrojejunostomy 400 / 400 Tube Other: Date of Last Bowel Movement 03/14/18 03/14/18 03/15/18 # Bowel Movements 0 Narrative: GENERAL: Frail, lying in bed, no acute distress. SKIN: Warm and dry. HEAD: Atraumatic. Normocephalic. EYES: Pupils equal and round. No scleral icterus. No injection or drainage. Glasses are in place. ENT: No nasal bleeding or discharge. Mucous membranes pink and moist. s/p trach. NECK: Trachea midline. No JVD. CARDIOVASCULAR: normal rate, RR. RESPIRATORY: Coarse breath sounds. GASTROINTESTINAL: Abdomen soft, nondistended. nontender. GJ tube intact without signs of bleeding or erythema. MUSCULOSKELETAL: Extremities with trace bilateral upper extremity edema. No obvious deformities. NEUROLOGICAL: Awake and alert. Following commands. Moves all 4 extremities spontaneously. - Urinary Catheter Management Female External Cath placed during this visit: no Indwelling Urethral Catheter Cath placed during this visit: yes, but has since been removed by the nurse Reason for continuing: Hourly intake/output Insertion date: 03/06/18 Insertion time: 18:00 Removal date: 03/10/18 Removal time: 17:00 Results - Labs CBC & Chem 7: 03/19/18 05:57 03/19/18 05:57 Laboratory Results - last 24 hr 03/18/18 03/19/18 03/19/18 19:32 00:03 05:50 WBC RBC Hgb Hct MCV MCH MCHC RDW Plt Count MPV Sodium Potassium Chloride Carbon Dioxide Anion Gap BUN Creatinine Estimated GFR POC Glucose 89 96 101 Random Glucose Calcium 03/19/18 03/19/18 05:57 05:57 WBC 4.3 RBC 2.39 L Hgb 7.5 L Hct 22.4 L MCV 93.6 MCH 31.3 MCHC 33.5 RDW 17.1 Plt Count 101 L MPV 10.1 Sodium 144 Potassium 3.6 Chloride 107 Carbon Dioxide 28.4 Anion Gap 9 BUN 26 H Creatinine 1.14 H Estimated GFR 47 L POC Glucose Random Glucose 89 Calcium 8.1 L 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 Noted initial CXR with pulm edema pattern, may be secondary to negative pressure pulm edema (exacerbated by low oncotic pressure) RUL spiculated lung mass on CT chest -follow-up with Dr. D'Sorensen -t-piece as tolerated. -Albuterol/ipratropium aerosols every 4 hours with albuterol aerosols every 2 hours as needed for dyspnea -Methylprednisolone transitioned to prednisone 20mg daily -Status post percutaneous tracheostomy Dr. Kraus 03/11. Surgery recommends removing stitches at 10 days as pt requests removal for comfort purposes. -Dr. Martin/pulmonary following -PT Hypotension -possibly sepsis with elevated pro-calcitonin- resolved Chronic systolic heart failure ejection fraction 35% New hypotension- resolved 2D echo 02/23/18 ejection fraction 35%, anterior septal hypokinesis. Biatrial dilation. Serial troponins/EKG essentially negative lactate normal. Severe pharyngeal phase dysphagia -diagnosed by modified barium swallow 02/05/18 Proximal esophageal Stricture, radiation induced Rendon's esophagus GERD Severe chronic protein energy malnutrition Hypoalbuminemia new abdominal pain, nausea, vomiting, diarrhea 03/15- resolved -G/J tube in place flush with 60 cc free water every 8 hours -Vital 1.5 55/hr per nutrition recs via jejunostomy. G tube to gravity with medicines not being induced. -Pt known to Dr. Aly, with esophageal dilation in the past. EGD/ dilatation . -Lansoprazole for GI prophylaxis. On omeprazole 20 mg daily at home -CT abd/pelvis with iv and po contrast 03/15: no acute disease. -g-tube to gravity -iv zofran for nausea. MRSA/Caitlyn tropicalis UTI Aspiration pneumonitis/pneumonia -s/p full course of abx: cefepime, flagyl, vanc, fluc. -Mupirocin 2% to nares twice daily for MRSA nares -culture for new fever. Pertinent cultures: 03/08 -sputum -MRSA 03/06 -blood cultures 2 -likely contaminant staph hominis- 03/06 -UA -MRSA/Caitlyn tropicalis Normocytic anemia History of laryngeal cancer -Followed by Dr. Pineda for followup h/o laryngeal cancer. -Prior radiation and chemo completed 03/2015. -Transfuse 2 units PRBCs since admission Adjustment disorder with depression Allergic rhinitis -Continue escitalopram 20 mg daily/home medication via G-tube -Acetaminophen 650 mg every 6 hours by G-tube for fever -Continue cetirizine 10 mg daily for allergic rhinitis PROPH: SCDs for DVT prophylaxis. Heparin subcu. Lansoprazole for stress ulcer prophylaxis and history of GERD.
[2018-03-19] MEDS ORDERED: Lidocaine PF 1% Inj 5 ML Syringe INFILTRATN ONE (12:00)
[2018-03-19] MEDS ORDERED: Phenylephrine/NS 1000 MCG/10ML Syringe IV.PUSH ONE (12:00)
[2018-03-19] MEDS: predniSONE 20 MG Tablet PO SCH (13:54)
[2018-03-19] MEDS: Mupirocin 2% Nasal Oint Topical Syringe EACH NARE SCH ×2 (13:54→21:57)
[2018-03-19] MEDS: Ascorbic Acid 500 MG Tablet G-TUBE SCH ×2 (13:55→21:59)
[2018-03-19] MEDS: Polyethylene Glycol 3350 17 GM Packet PO SCH ×2 (13:55→21:58)
[2018-03-19] MEDS: Senna/Docusate Sodium 8.6/50 MG Tablet PO SCH ×2 (13:55→21:59)
--- NOTE | 2018-03-19 16:12 | GIPROC ---
[facility] [address] [facility]. [facility] [place], [address] EGD PROCEDURE REPORT EXAM DATE: 03/19/2018 PATIENT NAME: Ana M Henson MR #: [id number] BIRTHDATE: 1945 ATTENDING: Jaskaran Catalan MD ORDER #: [id number] HANDS HANGER: Yanni Orr Powell, Bianca, and Becca Nathan STATUS: inpatient INDICATIONS: The patient is a 73 yr old female here for an EGD due to recurrent dysphagia due to a proximal esophageal radiation stricture. PROCEDURE PERFORMED: Esophagogastroscopy with wire insertion/esophageal dilation MEDICATIONS: Per Anesthesia. TOPICAL ANESTHETIC: None CONSENT: The patient understands the risks and benefits of the procedure and understands that these risks include, but are not limited to: sedation, allergic reaction, infection, perforation and/or bleeding. Alternative means of evaluation and treatment include, among others: physical exam, x-rays, and/or surgical intervention. The patient elects to proceed with this endoscopic procedure. medical equipment was checked for proper function. Hand hygiene and appropriate measures for infection prevention was taken. After the risks, benefits and alternatives of the procedure were thoroughly explained, Informed consent was verified, confirmed and timeout was successfully executed by the treatment team. The patient was anesthetized with topical anesthesia and the Bokeccax [id number] endoscope was introduced through the mouth and advanced to the pylorus. Retroflexion was performed and was normal The gastroscope was then slowly withdrawn and removed. ESOPHAGUS: A tight proximal esophageal stricture was encountered, through which the gastroscope could not be advanced. The pediatric gastroscope passed through without difficulty. Over a guidewire, 9mm, 10mm and 11mm Savary dilators were passed in succession with progressively more resistance met with each. No blood was noted on the largest dilator upon its withdrawal. STOMACH: A G-tube balloon and J-tube (passing through the pylorus) were noted. The gastric mucosa appeared normal. I did not attempt passing the scope through the pylorus, to minimize the risk of pulling back into the stomach upon withdrawing it. ADVERSE EVENTS: There were no complications. IMPRESSIONS: 1. A tight proximal esophageal stricture was encountered, through which the gastroscope could not be advanced. The pediatric gastroscope passed through without difficulty 2. Over a guidewire, 9mm, 10mm and 11mm Savary dilators were passed in succession with progressively more resistance met with each. No blood was noted on the largest dilator upon its withdrawal 3. A G-tube balloon and J-tube (passing through the pylorus) were noted. The gastric mucosa appeared normal. I did not attempt passing the scope through the pylorus, to minimize the risk of pulling back into the stomach upon withdrawing it 4. Retroflexion was performed and was normal RECOMMENDATIONS: Resume pre-procedure orders. We'll decide on oral nutrition tomorrow. PATIENT CONDITION: stable DISPOSITION: Inpatient REPEAT EXAM: Return as needed for EGD with dilatation, using the pediatric gastroscope. Jaskaran Catalan MD eSigned: Jaskaran Catalan MD 03/19/2018 4:12 PM cc: PATIENT NAME: Ana M Henson MR#: [id number]
[2018-03-19] MEDS: Potassium Chloride Inj 10 MEQ in Dextrose 5%/Lactated Ringer's 1,000 ML IV.SIG SCH (17:00)
[2018-03-19] MEDS: Heparin - SQ 10,000 UNITS/ML Vial SQ SCH (21:57)
[2018-03-20] MEDS: Oral Hygiene Kit OROPHARYNG SCH ×4 (01:33→16:49)
[2018-03-20] MEDS: Hypromellose 0.3% Opth Gel 10 GM Bottle EACH EYE SCH ×3 (01:34→16:49)
[2018-03-20] MEDS: Potassium Chloride Inj 10 MEQ in Dextrose 5%/Lactated Ringer's 1,000 ML IV.SIG SCH ×2 (05:49→13:39)
[2018-03-20] MEDS: Levothyroxine 100 MCG Tablet NG/OG SCH (05:49)
[2018-03-20] MEDS: Insulin NovoLOG Aspart Correctional Sugar Inj SQ SCH ×4 (06:20→18:25)
[2018-03-20 06:28] LABS: Potassium 3.6 meq/L (3.5-5.1)
[2018-03-20 08:32] LABS: Hematocrit 24.5 % (35.0-46.0); Hemoglobin 8.1 gm/dL (11.6-15.3); Mean Corpuscular HGB Conc 33.2 % (32.0-36.0); Mean Corpuscular Volume 93.2 fL (80.0-100.0); Mean Platelet Volume 11.6 fL (7.0-11.0); Platelet Count 117 th/mm3 (150-450); Red Blood Count 2.63 mil/mm3 (4.00-5.30); Red Cell Distribution Width 16.7 % (11.6-17.2); White Blood Count 4.3 th/mm3 (4.0-11.0)
[2018-03-20] MEDS ORDERED: levoFLOXacin Liq 25 MG/ML 100 ML Bottle PO ONE (09:00)
[2018-03-20] MEDS: predniSONE 20 MG Tablet PO SCH (09:23)
[2018-03-20] MEDS: Senna/Docusate Sodium 8.6/50 MG Tablet PO SCH ×2 (09:23→21:00)
[2018-03-20] MEDS: Mupirocin 2% Nasal Oint Topical Syringe EACH NARE SCH ×2 (09:23→21:00)
[2018-03-20] MEDS: Ascorbic Acid 500 MG Tablet G-TUBE SCH ×2 (09:23→21:00)
[2018-03-20] MEDS: Polyethylene Glycol 3350 17 GM Packet PO SCH ×2 (09:23→21:00)
[2018-03-20] MEDS: Heparin - SQ 10,000 UNITS/ML Vial SQ SCH ×2 (09:24→21:00)
[2018-03-20] MEDS: Chlorhexidine 0.12% Oral Kit 15 ML UDC OROPHARYNG SCH ×2 (09:26→20:00)
[2018-03-20] MEDS: levoFLOXacin Liq 25 MG/ML 100 ML Bottle PO SCH (10:13)
--- NOTE | 2018-03-20 10:16 | P.PNIM ---
Subjective Interval history: The patient was resting comfortably in bed. She said the dilatation went well. We talked about when she would get her neck stitches removed. Still having secretions. Discussed with nursing. Physical Exam Vital signs: Vital Signs 03/19/18 11:00 03/19/18 11:08 03/19/18 12:00 Temperature 98 F Pulse Rate 66 64 76 Respiratory Rate 25 H 24 28 H Blood Pressure 94/45 L 92/45 L Pulse Oximetry 98 97 03/19/18 13:00 03/19/18 14:00 03/19/18 14:02 Temperature Pulse Rate 73 65 63 Respiratory Rate 22 24 21 Blood Pressure 100/47 L Pulse Oximetry 98 100 100 03/19/18 16:15 03/19/18 16:30 03/19/18 16:45 Temperature 97.4 F L Pulse Rate 69 81 71 Respiratory Rate 28 H 26 H 26 H Blood Pressure 99/43 L 90/42 L 101/50 L Pulse Oximetry 99 100 100 03/19/18 17:01 03/19/18 17:03 03/19/18 18:00 Temperature Pulse Rate 63 65 65 Respiratory Rate 30 H 36 H Blood Pressure 101/47 L 106/57 L Pulse Oximetry 100 99 86 L 03/19/18 19:00 03/19/18 19:40 03/19/18 20:00 Temperature 98 F Pulse Rate 62 64 Respiratory Rate 27 H 29 H Blood Pressure 113/53 L 112/53 L Pulse Oximetry 99 99 98 03/19/18 21:00 03/19/18 22:00 03/19/18 23:00 Temperature Pulse Rate 64 64 66 Respiratory Rate 26 H 30 H 33 H Blood Pressure 113/54 L 118/56 L 124/58 L Pulse Oximetry 94 L 96 97 03/20/18 00:00 03/20/18 01:00 03/20/18 02:00 Temperature 99 F Pulse Rate 89 80 66 Respiratory Rate 31 H 30 H 24 Blood Pressure 128/58 L 124/60 114/53 L Pulse Oximetry 95 96 94 L 03/20/18 03:00 03/20/18 04:00 03/20/18 05:00 Temperature 99 F Pulse Rate 69 69 68 Respiratory Rate 30 H 33 H 31 H Blood Pressure 120/56 L 114/55 L 117/55 L Pulse Oximetry 95 95 93 L 03/20/18 06:00 03/20/18 07:00 03/20/18 08:00 Temperature Pulse Rate 68 63 65 Respiratory Rate 32 H 30 H 29 H Blood Pressure 119/55 L 110/51 L 110/51 L Pulse Oximetry 96 95 95 03/20/18 08:28 03/20/18 09:00 Temperature Pulse Rate 63 Respiratory Rate 30 H Blood Pressure 107/51 L Pulse Oximetry 96 95 Intake & Output 03/19/18 03/20/18 03/20/18 18:59 06:59 18:59 Intake Total 1000 / 1000 1210 / 1210 Output Total 300 / 300 900 / 900 Balance 700 / 700 310 / 310 Weight 60.6 kg Intake: IV 1000 / 1000 1000 / 1000 KCl Inj 10 MEQ In D5W/LR Inj 1, 1000 / 1000 1000 / 1000 000 ML @ 75 mls/hr IV.SIG . [id number] [facility] Rx#:[id number] Oral 0 / 0 Tube Feeding 0 / 0 0 / 0 Tube Irrigant 150 / 150 Water Bolus Amount 60 / 60 Output: Urine 300 / 300 300 / 300 Urine Amount (Catheter) 200 / 200 Female External 200 / 200 Gastric Drainage 400 / 400 Pre-Hospital Gastrojejunostomy 400 / 400 Tube Other: # Voids 2 2 # Incontinent Voids 0 Date of Last Bowel Movement 03/15/18 03/15/18 03/17/18 # Bowel Movements 0 0 Narrative: GENERAL: Frail, lying in bed, no acute distress. SKIN: Warm and dry. HEAD: Atraumatic. Normocephalic. EYES: Pupils equal and round. No scleral icterus. No injection or drainage. Glasses are in place. ENT: No nasal bleeding or discharge. Mucous membranes pink and moist. s/p trach. NECK: Trachea midline. No JVD. CARDIOVASCULAR: normal rate, RR. RESPIRATORY: Coarse breath sounds. GASTROINTESTINAL: Abdomen soft, nondistended. nontender. GJ tube intact without signs of bleeding or erythema. MUSCULOSKELETAL: Extremities with trace bilateral upper extremity edema. No obvious deformities. NEUROLOGICAL: Awake and alert. Following commands. Moves all 4 extremities spontaneously. - Urinary Catheter Management Female External Cath placed during this visit: no Indwelling Urethral Catheter Cath placed during this visit: yes, but has since been removed by the nurse Reason for continuing: Hourly intake/output Insertion date: 03/06/18 Insertion time: 18:00 Removal date: 03/10/18 Removal time: 17:00 Results - Labs CBC & Chem 7: 03/20/18 04:40 03/20/18 04:40 Laboratory Results - last 24 hr 03/19/18 03/19/18 03/20/18 12:19 18:02 01:04 WBC RBC Hgb Hct MCV MCH MCHC RDW Plt Count MPV Sodium Potassium Chloride Carbon Dioxide Anion Gap BUN Creatinine Estimated GFR POC Glucose 107 94 103 Random Glucose Calcium 03/20/18 03/20/18 03/20/18 04:40 04:40 05:45 WBC 4.3 RBC 2.63 L Hgb 8.1 L Hct 24.5 L MCV 93.2 MCH 31.0 MCHC 33.2 RDW 16.7 Plt Count 117 L MPV 11.6 H Sodium 142 Potassium 3.6 Chloride 106 Carbon Dioxide 28.0 Anion Gap 8 BUN 20 H Creatinine 1.04 H Estimated GFR 52 L POC Glucose 106 Random Glucose 93 Calcium 8.0 L 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 Noted initial CXR with pulm edema pattern, may be secondary to negative pressure pulm edema (exacerbated by low oncotic pressure) RUL spiculated lung mass on CT chest -follow-up with Dr. Martin -t-piece as tolerated. -Albuterol/ipratropium aerosols every 4 hours with albuterol aerosols every 2 hours as needed for dyspnea -Methylprednisolone transitioned to prednisone 20mg daily -Status post percutaneous tracheostomy Dr. Kraus 03/11. Surgery recommends removing stitches at 10 days as pt requests removal for comfort purposes. Will d /c 03/21. -Dr. Martin/pulmonary following -PT/OT Hypotension -possibly sepsis with elevated pro-calcitonin- resolved Chronic systolic heart failure ejection fraction 35% New hypotension- resolved 2D echo 02/23/18 ejection fraction 35%, anterior septal hypokinesis. Biatrial dilation. Serial troponins/EKG essentially negative lactate normal. Severe pharyngeal phase dysphagia -diagnosed by modified barium swallow 02/05/18 Proximal esophageal Stricture, radiation induced Rendon's esophagus GERD Severe chronic protein energy malnutrition Hypoalbuminemia new abdominal pain, nausea, vomiting, diarrhea 03/15- resolved -G/J tube in place flush with 60 cc free water every 8 hours -Vital 1.5 55/hr per nutrition recs via jejunostomy. G tube to gravity with medicines not being induced. -Pt known to Dr. Aly, with esophageal dilation in the past. EGD/ dilatation . Tolerated well. -Lansoprazole for GI prophylaxis. On omeprazole 20 mg daily at home -CT abd/pelvis with iv and po contrast 03/15: no acute disease. -g-tube to gravity -iv zofran for nausea. MRSA/Caitlyn tropicalis UTI Aspiration pneumonitis/pneumonia -s/p full course of abx: cefepime, flagyl, vanc, fluc. -Mupirocin 2% to nares twice daily for MRSA nares -culture for new fever. Pertinent cultures: 03/08 -sputum -MRSA 03/06 -blood cultures 2 -likely contaminant staph hominis- 03/06 -UA -MRSA/Caitlyn tropicalis Normocytic anemia History of laryngeal cancer -Followed by Dr. Pineda for followup h/o laryngeal cancer. -Prior radiation and chemo completed 03/2015. -Transfused 2 units PRBCs since admission. Adjustment disorder with depression Allergic rhinitis -Continue escitalopram 20 mg daily/home medication via G-tube -Acetaminophen 650 mg every 6 hours by G-tube for fever -Continue cetirizine 10 mg daily for allergic rhinitis PROPH: SCDs for DVT prophylaxis. Heparin subcu. Lansoprazole for stress ulcer prophylaxis and history of GERD.
--- NOTE | 2018-03-20 15:48 | P.PNGI ---
Subjective Interval history: She's in good spirits; no complaints; she's noticed benefit since the esophageal dilation yesterday. Physical Exam Vital signs: Vital Signs 03/19/18 16:15 03/19/18 16:30 03/19/18 16:45 Temperature 97.4 F L Pulse Rate 69 81 71 Respiratory Rate 28 H 26 H 26 H Blood Pressure 99/43 L 90/42 L 101/50 L Pulse Oximetry 99 100 100 03/19/18 17:01 03/19/18 17:03 03/19/18 18:00 Temperature Pulse Rate 63 65 65 Respiratory Rate 30 H 36 H Blood Pressure 101/47 L 106/57 L Pulse Oximetry 100 99 86 L 03/19/18 19:00 03/19/18 19:40 03/19/18 20:00 Temperature 98 F Pulse Rate 62 64 Respiratory Rate 27 H 29 H Blood Pressure 113/53 L 112/53 L Pulse Oximetry 99 99 98 03/19/18 21:00 03/19/18 22:00 03/19/18 23:00 Temperature Pulse Rate 64 64 66 Respiratory Rate 26 H 30 H 33 H Blood Pressure 113/54 L 118/56 L 124/58 L Pulse Oximetry 94 L 96 97 03/20/18 00:00 03/20/18 01:00 03/20/18 02:00 Temperature 99 F Pulse Rate 89 80 66 Respiratory Rate 31 H 30 H 24 Blood Pressure 128/58 L 124/60 114/53 L Pulse Oximetry 95 96 94 L 03/20/18 03:00 03/20/18 04:00 03/20/18 05:00 Temperature 99 F Pulse Rate 69 69 68 Respiratory Rate 30 H 33 H 31 H Blood Pressure 120/56 L 114/55 L 117/55 L Pulse Oximetry 95 95 93 L 03/20/18 06:00 03/20/18 07:00 03/20/18 08:00 Temperature Pulse Rate 68 63 65 Respiratory Rate 32 H 30 H 29 H Blood Pressure 119/55 L 110/51 L 110/51 L Pulse Oximetry 96 95 95 03/20/18 08:28 03/20/18 09:00 03/20/18 12:00 Temperature 98 F Pulse Rate 63 63 Respiratory Rate 30 H 12 Blood Pressure 107/51 L 102/48 L Pulse Oximetry 96 95 96 Intake & Output 03/19/18 03/20/1818 18:59 06:59 18:59 Intake Total 1000 / 1000 1210 / 1210 1000 / 1000 Output Total 300 / 300 900 / 900 800 / 800 Balance 700 / 700 310 / 310 200 / 200 Weight 60.6 kg Intake: IV 1000 / 1000 1000 / 1000 1000 / 1000 KCl Inj 10 MEQ In D5W/LR Inj 1, 1000 / 1000 1000 / 1000 1000 / 1000 000 ML @ 75 mls/hr IV.SIG . [id number] [facility] Rx#:[id number] Oral 0 / 0 Tube Feeding 0 / 0 0 / 0 Tube Irrigant 150 / 150 Water Bolus Amount 60 / 60 Output: Urine 300 / 300 300 / 300 Urine Amount (Catheter) 200 / 200 300 / 300 Female External 200 / 200 300 / 300 Gastric Drainage 400 / 400 500 / 500 Pre-Hospital Gastrojejunostomy 400 / 400 500 / 500 Tube Other: # Voids 2 2 # Incontinent Voids 0 Date of Last Bowel Movement 03/15/18 03/15/18 03/17/18 # Bowel Movements 0 0 - Constitutional no acute distress (She has a trach tube and mouths her responses. She takes on oral meds/food.) - Urinary Catheter Management Female External Cath placed during this visit: no Indwelling Urethral Catheter Cath placed during this visit: yes, but has since been removed by the nurse Reason for continuing: Hourly intake/output Insertion date: 03/06/18 Insertion time: 18:00 Removal date: 03/10/18 Removal time: 17:00 Results - Labs CBC & Chem 7: 03/20/18 04:40 03/20/18 04:40 Laboratory Results - last 24 hr 03/19/18 03/20/18 03/20/18 18:02 01:04 04:40 WBC 4.3 RBC 2.63 L Hgb 8.1 L Hct 24.5 L MCV 93.2 MCH 31.0 MCHC 33.2 RDW 16.7 Plt Count 117 L MPV 11.6 H Sodium Potassium Chloride Carbon Dioxide Anion Gap BUN Creatinine Estimated GFR POC Glucose 94 103 Random Glucose Calcium 03/20/18 03/20/18 03/20/18 04:40 05:45 14:18 WBC RBC Hgb Hct MCV MCH MCHC RDW Plt Count MPV Sodium 142 Potassium 3.6 Chloride 106 Carbon Dioxide 28.0 Anion Gap 8 BUN 20 H Creatinine 1.04 H Estimated GFR 52 L POC Glucose 106 134 H Random Glucose 93 Calcium 8.0 L Assessment and Plan (1) Dysphagia Status: Chronic Code(s): R13.10 - Dysphagia, unspecified - Plan Proximal esophageal radiation stricture; s/p dilation to 11mm. She feels better. Tube feedings to resume. She should be in the reverse Trendelenberg position while in bed, never supine. Will see PRN
--- NOTE | 2018-03-20 19:02 | P.PN ---
Subjective Interval history: She is doing well. On a T Bar at 30 % FIO2 had dilation of Esophagus yesterday. Physical Exam Vital signs: Vital Signs 03/19/18 19:00 03/19/18 19:40 03/19/18 20:00 Temperature 98 F Pulse Rate 62 64 Respiratory Rate 27 H 29 H Blood Pressure 113/53 L 112/53 L Pulse Oximetry 99 99 98 03/19/18 21:00 03/19/18 22:00 03/19/18 23:00 Temperature Pulse Rate 64 64 66 Respiratory Rate 26 H 30 H 33 H Blood Pressure 113/54 L 118/56 L 124/58 L Pulse Oximetry 94 L 96 97 03/20/18 00:00 03/20/18 01:00 03/20/18 02:00 Temperature 99 F Pulse Rate 89 80 66 Respiratory Rate 31 H 30 H 24 Blood Pressure 128/58 L 124/60 114/53 L Pulse Oximetry 95 96 94 L 03/20/18 03:00 03/20/18 04:00 03/20/18 05:00 Temperature 99 F Pulse Rate 69 69 68 Respiratory Rate 30 H 33 H 31 H Blood Pressure 120/56 L 114/55 L 117/55 L Pulse Oximetry 95 95 93 L 03/20/18 06:00 03/20/18 07:00 03/20/18 08:00 Temperature Pulse Rate 68 63 65 Respiratory Rate 32 H 30 H 29 H Blood Pressure 119/55 L 110/51 L 110/51 L Pulse Oximetry 96 95 95 03/20/18 08:28 03/20/18 09:00 03/20/18 12:00 Temperature 98 F Pulse Rate 63 74 Respiratory Rate 30 H 12 Blood Pressure 107/51 L 102/48 L Pulse Oximetry 96 95 96 03/20/18 16:00 03/20/18 17:50 Temperature 98.7 F Pulse Rate 71 Respiratory Rate 12 Blood Pressure 108/87 Pulse Oximetry 96 Intake & Output 03/19/18 03/20/18 03/20/18 18:59 06:59 18:59 Intake Total 1000 / 1000 1210 / 1210 1000 / 1000 Output Total 300 / 300 900 / 900 800 / 800 Balance 700 / 700 310 / 310 200 / 200 Weight 60.6 kg Intake: IV 1000 / 1000 1000 / 1000 1000 / 1000 KCl Inj 10 MEQ In D5W/LR Inj 1, 1000 / 1000 1000 / 1000 1000 / 1000 000 ML @ 75 mls/hr IV.SIG . [id number] [facility] Rx#:[id number] Oral 0 / 0 Tube Feeding 0 / 0 0 / 0 Tube Irrigant 150 / 150 Water Bolus Amount 60 / 60 Output: Urine 300 / 300 300 / 300 Urine Amount (Catheter) 200 / 200 300 / 300 Female External 200 / 200 300 / 300 Gastric Drainage 400 / 400 500 / 500 Pre-Hospital Gastrojejunostomy 400 / 400 500 / 500 Tube Other: # Voids 2 2 2 # Incontinent Voids 0 Date of Last Bowel Movement 03/15/18 03/15/18 03/17/18 # Bowel Movements 0 0 Narrative: GENERAL:Elderly W/F in no acute distress. SKIN: Warm and dry. HEAD: Atraumatic. Normocephalic. EYES: Pupils equal and round. No scleral icterus. No injection or drainage. Glasses are in place. ENT: No nasal bleeding or discharge. Mucous membranes pink and moist. s/p trach. NECK: Trachea midline. No JVD. CARDIOVASCULAR: normal rate, RR. RESPIRATORY: Coarse breath sounds.Occ Crackles at bases . GASTROINTESTINAL: Abdomen soft, nondistended. nontender. GJ tube intact without signs of bleeding or erythema. MUSCULOSKELETAL: Extremities with trace bilateral upper extremity edema. No obvious deformities. NEUROLOGICAL: Awake and alert. Following commands. Moves all 4 extremities spontaneously. - Urinary Catheter Management Female External Cath placed during this visit: no Indwelling Urethral Catheter Cath placed during this visit: yes, but has since been removed by the nurse Reason for continuing: Hourly intake/output Insertion date: 03/06/18 Insertion time: 18:00 Removal date: 03/10/18 Removal time: 17:00 Results - Labs CBC & Chem 7: 03/20/18 04:40 03/20/18 04:40 Laboratory Results - last 24 hr 03/20/18 03/20/18 03/20/18 01:04 04:40 04:40 WBC 4.3 RBC 2.63 L Hgb 8.1 L Hct 24.5 L MCV 93.2 MCH 31.0 MCHC 33.2 RDW 16.7 Plt Count 117 L MPV 11.6 H Sodium 142 Potassium 3.6 Chloride 106 Carbon Dioxide 28.0 Anion Gap 8 BUN 20 H Creatinine 1.04 H Estimated GFR 52 L POC Glucose 103 Random Glucose 93 Calcium 8.0 L 03/20/18 03/20/18 05:45 14:18 WBC RBC Hgb Hct MCV MCH MCHC RDW Plt Count MPV Sodium Potassium Chloride Carbon Dioxide Anion Gap BUN Creatinine Estimated GFR POC Glucose 106 134 H Random Glucose Calcium 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 - Malignant neoplasm of larynx, unspecified Status: Acute (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 Cont on T Bar 30 % all the time. 2. Trach care and lavage PRN 3. Continue Duo nebs q6h 4. PT evaluation to help activity 5. Levaquin 500 mg daily X 5 6. Will remove trach sutures next week 7. Tube feeds at 60 CC. 8. CBC,BMP in am (7) Aspiration pneumonia Qualifiers: Aspiration pneumonia type: unspecified Laterality: unspecified laterality Lung location: unspecified part of lung Qualified Code(s): J69.0 - Pneumonitis due to inhalation of food and vomit
[2018-03-21] MEDS: Hypromellose 0.3% Opth Gel 10 GM Bottle EACH EYE SCH ×3 (01:00→17:42)
[2018-03-21] MEDS: Potassium Chloride Inj 10 MEQ in Dextrose 5%/Lactated Ringer's 1,000 ML IV.SIG SCH (03:06)
[2018-03-21] MEDS: Oral Hygiene Kit OROPHARYNG SCH ×4 (04:00→16:27)
[2018-03-21] MEDS: Insulin NovoLOG Aspart Correctional Sugar Inj SQ SCH ×4 (06:00→18:20)
[2018-03-21] MEDS: Levothyroxine 100 MCG Tablet NG/OG SCH (06:02)
[2018-03-21 08:04] LABS: Hematocrit 21.2 % (35.0-46.0); Hemoglobin 7.1 gm/dL (11.6-15.3); Mean Corpuscular HGB Conc 33.3 % (32.0-36.0); Mean Corpuscular Hemoglobin 30.7 pg (27.0-34.0); Mean Corpuscular Volume 92.3 fL (80.0-100.0); Mean Platelet Volume 11.1 fL (7.0-11.0); Platelet Count 117 th/mm3 (150-450); Red Cell Distribution Width 16.9 % (11.6-17.2)
[2018-03-21 08:08] LABS: Calcium 7.9 mg/dL (8.5-10.1); Carbon Dioxide 29.6 meq/L (21.0-32.0); Potassium 3.7 meq/L (3.5-5.1)
[2018-03-21 08:48] LABS: Eosinophils 3 % (0-4); Monocytes 9 % (0-8); Myelocytes 3 % (0-0); Promyelocyte 2 % (0-0)
[2018-03-21 08:49] LABS: Lymphocytes 28 % (9-44); Platelet Morphology Normal (Normal); Toxic Vacuolation Present
[2018-03-21] MEDS: Mupirocin 2% Nasal Oint Topical Syringe EACH NARE SCH ×2 (09:00→21:04)
[2018-03-21] MEDS: Hyoscyamine Liq Drops 0.125 MG/ML 15 ML Bottle SL PRN (09:00)
[2018-03-21] MEDS: Heparin - SQ 10,000 UNITS/ML Vial SQ SCH (09:00)
[2018-03-21] MEDS: Polyethylene Glycol 3350 17 GM Packet PO SCH ×2 (09:00→22:05)
[2018-03-21] MEDS: Ascorbic Acid 500 MG Tablet G-TUBE SCH ×2 (09:00→22:04)
[2018-03-21] MEDS: Senna/Docusate Sodium 8.6/50 MG Tablet PO SCH ×2 (09:00→22:05)
[2018-03-21] MEDS: Sodium Chloride 0.45 % Inj 1,000 ML IV.CONT SCH ×2 (09:00→17:41)
[2018-03-21] MEDS: predniSONE 20 MG Tablet PO SCH (09:00)
[2018-03-21] MEDS ORDERED: Sod Chloride 0.9% Inj 1,000 ML IV.SIG ONE (11:12)
[2018-03-21] MEDS: Chlorhexidine 0.12% Oral Kit 15 ML UDC OROPHARYNG SCH ×2 (11:19→20:04)
--- NOTE | 2018-03-21 13:21 | P.PNIM ---
Subjective Interval history: The patient was resting comfortably in bed. She did endorse mucus production. She denied any pain. Discussed with her son over the phone. Nursing reports dark liquid coming out of G-tube. Discussed with GI. Physical Exam Vital signs: Vital Signs 03/20/18 16:00 03/20/18 17:50 03/20/18 20:00 Temperature 98.7 F 97.8 F Pulse Rate 71 75 Respiratory Rate 12 20 Blood Pressure 108/87 98/63 L Pulse Oximetry 96 100 03/21/18 00:00 03/21/18 04:00 03/21/18 08:00 Temperature 98.4 F 100.7 F H 97.3 F L Pulse Rate 56 L 62 63 Respiratory Rate 18 14 16 Blood Pressure 86/42 L 88/43 L 80/40 L Pulse Oximetry 97 95 96 03/21/18 10:58 03/21/18 12:30 03/21/18 12:45 Temperature 98 F 98.1 F 99.3 F Pulse Rate 64 61 70 Respiratory Rate 12 16 18 Blood Pressure 88/40 L 90/42 L 109/52 L Pulse Oximetry 94 L 95 98 Intake & Output 03/20/18 03/21/18 03/21/18 18:59 06:59 18:59 Intake Total 1000 / 1000 1795 / 1795 0 / 0 Output Total 800 / 800 975 / 975 Balance 200 / 200 820 / 820 0 / 0 Weight 58.3 kg Intake: IV 1000 / 1000 1005 / 1005 KCl Inj 10 MEQ In D5W/LR Inj 1, 1000 / 1000 1005 / 1005 000 ML @ 75 mls/hr IV.SIG . [id number] [facility] Rx#:[id number] Tube Irrigant 550 / 550 Water Bolus Amount 240 / 240 Intake (Blood Product) Amt 0 / 0 Rbc As-3 Leukoreduced Unit 0 / 0 [id number] Output: Urine 200 / 200 Urine Amount (Catheter) 300 / 300 200 / 200 Female External 300 / 300 200 / 200 Gastric Drainage 500 / 500 575 / 575 Pre-Hospital Gastrojejunostomy 500 / 500 575 / 575 Tube Other: # Voids 2 Date of Last Bowel Movement 03/17/18 # Bowel Movements 2 Narrative: GENERAL: Frail, lying in bed, no acute distress. SKIN: Warm and dry. HEAD: Atraumatic. Normocephalic. EYES: Pupils equal and round. No scleral icterus. No injection or drainage. Glasses are in place. ENT: No nasal bleeding or discharge. Mucous membranes pink and moist. s/p trach. NECK: Trachea midline. No JVD. CARDIOVASCULAR: normal rate, RR. RESPIRATORY: Coarse breath sounds. GASTROINTESTINAL: Abdomen soft, nondistended. nontender. GJ tube in place. MUSCULOSKELETAL: Extremities with trace bilateral upper extremity edema. No obvious deformities. NEUROLOGICAL: Awake and alert. Following commands. Moves all 4 extremities spontaneously. - Urinary Catheter Management Female External Cath placed during this visit: no Indwelling Urethral Catheter Cath placed during this visit: yes, but has since been removed by the nurse Reason for continuing: Hourly intake/output Insertion date: 03/06/18 Insertion time: 18:00 Removal date: 03/10/18 Removal time: 17:00 Results - Labs CBC & Chem 7: 03/21/18 06:21 03/21/18 06:21 Laboratory Results - last 24 hr 03/11/18 03/20/18 03/20/18 12:52 14:18 23:58 WBC RBC Hgb Hct MCV MCH MCHC RDW Plt Count MPV Prelim Diff (Auto) WBC Differential Seg Neuts % (Manual) Band Neuts % (Manual) Lymphocytes % (Manual) Monocytes % (Manual) Eosinophils % (Manual) Myelocytes % (Man) Promyelocytes % (Man) Abs Neuts (Manual) Differential Comment Toxic Vacuolation Platelet Estimate Platelet Morphology Sodium Potassium Chloride Carbon Dioxide Anion Gap BUN Creatinine Estimated GFR POC Glucose 134 H 132 H Random Glucose Calcium Blood Type Antibody Screen MTS Gel Crossmatch See Detail 03/21/18 03/21/18 03/21/18 06:21 06:21 06:42 WBC 5.0 RBC 2.30 L Hgb 7.1 L Hct 21.2 L MCV 92.3 MCH 30.7 MCHC 33.3 RDW 16.9 Plt Count 117 L MPV 11.1 H Prelim Diff (Auto) Manual diff required WBC Differential Manual diff final Seg Neuts % (Manual) 52 Band Neuts % (Manual) 3 Lymphocytes % (Manual) 28 Monocytes % (Manual) 9 H Eosinophils % (Manual) 3 Myelocytes % (Man) 3 H Promyelocytes % (Man) 2 H Abs Neuts (Manual) 3.0 Differential Comment . Toxic Vacuolation Present H Platelet Estimate Low L Platelet Morphology Normal Sodium 142 Potassium 3.7 Chloride 106 Carbon Dioxide 29.6 Anion Gap 6 BUN 25 H Creatinine 1.26 H Estimated GFR 42 L POC Glucose 140 H Random Glucose 112 H Calcium 7.9 L Blood Type Antibody Screen MTS Gel Crossmatch 03/21/18 03/21/18 10:16 11:04 WBC RBC Hgb Hct MCV MCH MCHC RDW Plt Count MPV Prelim Diff (Auto) WBC Differential Seg Neuts % (Manual) Band Neuts % (Manual) Lymphocytes % (Manual) Monocytes % (Manual) Eosinophils % (Manual) Myelocytes % (Man) Promyelocytes % (Man) Abs Neuts (Manual) Differential Comment Toxic Vacuolation Platelet Estimate Platelet Morphology Sodium Potassium Chloride Carbon Dioxide Anion Gap BUN Creatinine Estimated GFR POC Glucose Random Glucose Calcium Blood Type B Positive Antibody Screen Negative MTS Gel Crossmatch See Detail See Detail 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 Noted initial CXR with pulm edema pattern, may be secondary to negative pressure pulm edema (exacerbated by low oncotic pressure) RUL spiculated lung mass on CT chest -follow-up with Dr. Martin -t-piece as tolerated. -Albuterol/ipratropium aerosols every 4 hours with albuterol aerosols every 2 hours as needed for dyspnea -Methylprednisolone transitioned to prednisone 20mg daily -Status post percutaneous tracheostomy Dr. Kraus 03/11. Surgery recommends removing stitches at 10 days as pt requests removal for comfort purposes. -Dr. Martin/pulmonary following -PT/OT Chronic systolic heart failure ejection fraction 35% New hypotension- resolved 2D echo 02/23/18 ejection fraction 35%, anterior septal hypokinesis. Biatrial dilation. Serial troponins/EKG essentially negative Severe pharyngeal phase dysphagia -diagnosed by modified barium swallow 02/05/18 Proximal esophageal Stricture, radiation induced Rendon's esophagus GERD Severe chronic protein energy malnutrition Hypoalbuminemia new abdominal pain, nausea, vomiting, diarrhea 03/15- resolved GIB -G/J tube in place flush with 60 cc free water every 8 hours -Vital 1.5 55/hr per nutrition recs via jejunostomy. G tube to gravity with medicines not being induced. -Pt known to Dr. Aly, with esophageal dilation in the past. EGD/ dilatation . Tolerated well. -Lansoprazole for GI prophylaxis. On omeprazole 20 mg daily at home -CT abd/pelvis with iv and po contrast 03/15: no acute disease. -g-tube to gravity. Currently with liquid dark output. GI has been notified. Transfusing two units 03/21. Continue IVFs. Hold heparin. MRSA/Caitlyn tropicalis UTI Aspiration pneumonitis/pneumonia -s/p full course of abx: cefepime, flagyl, vanc, fluc. -Mupirocin 2% to nares twice daily for MRSA nares -culture for new fever. Pertinent cultures: 03/08 -sputum -MRSA 03/06 -blood cultures 2 -likely contaminant staph hominis- 03/06 -UA -MRSA/Caitlyn tropicalis Normocytic anemia History of laryngeal cancer -Followed by Dr. Pineda for followup h/o laryngeal cancer. -Prior radiation and chemo completed 03/2015. -likely GIB as above. Adjustment disorder with depression Allergic rhinitis -Continue escitalopram 20 mg daily/home medication via G-tube -Acetaminophen 650 mg every 6 hours by G-tube for fever -Continue cetirizine 10 mg daily for allergic rhinitis PROPH: SCDs for DVT prophylaxis. Heparin subcu. Lansoprazole for stress ulcer prophylaxis and history of GERD Discharge Planning: Son would like to be updated on care regularly. He would like [facility] to evaluate. Also interested in PONR. GIB bleed noted 03/21. GI notified. Transfuse 2 units and follow with GI.
[2018-03-21] MEDS ORDERED: Ketamine Inj 50 MG/5 ML Syringe IV.PUSH ONE (14:07)
[2018-03-21] MEDS ORDERED: Sodium Chlor 0.9% Inj 250 ML IV.SIG ONE (14:28)
--- NOTE | 2018-03-21 14:42 | GIPROC ---
[facility] [address] [facility]. [facility], [address] EGD PROCEDURE REPORT EXAM DATE: 03/21/2018 PATIENT NAME: Ana M Henson MR #: [id number] BIRTHDATE: 1945 ATTENDING: Jaskaran Catalan MD ORDER #: [id number] MEDICAL RADIATION DOSIMETRIST: Yanni Orr Stienbarger, Terrie, and Thao Gilbert STATUS: inpatient INDICATIONS: The patient is a 73 yr old female here for an EGD due to report of dark green/black liquid via G-tube. She has chronic anemia, and has received 5 units PRBCs over the past few months. PROCEDURE PERFORMED: EGD, diagnostic MEDICATIONS: Per Anesthesia. TOPICAL ANESTHETIC: None CONSENT: The patient understands the risks and benefits of the procedure and understands that these risks include, but are not limited to: sedation, allergic reaction, infection, perforation and/or bleeding. Alternative means of evaluation and treatment include, among others: physical exam, x-rays, and/or surgical intervention. The patient elects to proceed with this endoscopic procedure. medical equipment was checked for proper function. Hand hygiene and appropriate measures for infection prevention was taken. After the risks, benefits and alternatives of the procedure were thoroughly explained, Informed consent was verified, confirmed and timeout was successfully executed by the treatment team. The patient was anesthetized with topical anesthesia and the Pentax EG-[id number] and Pentax [id number] endoscope was introduced through the mouth and advanced to the . Retroflexion was performed and was normal The gastroscope was then slowly withdrawn and removed. ESOPHAGUS: Radiation telangiectasias were noted in the proximal esophagus, at the region of the stricture, which seemed just as tight today as it did prior to the dilation to 11mm two days ago. A 5-6mm inflammatory distal esophageal polyp was noted. STOMACH: The G-tube balloon was in good position; no gastric lesions were noted. DUODENUM: The visualized portions of the duodenum along the J-tube appeared normal. There was no evidence of blood anywhere in the upper GI tract. ADVERSE EVENTS: There were no complications. IMPRESSIONS: 1. Radiation telangiectasias were noted in the proximal esophagus, at the region of the stricture, which seemed just as tight today as it did prior to the dilation to 11mm two days ago. A 5-6mm inflammatory distal esophageal polyp was noted 2. The G-tube balloon was in good position; no gastric lesions were noted 3. The visualized portions of the duodenum along the J-tube appeared normal 4. There was no evidence of blood anywhere in the upper GI tract 5. Retroflexion was performed and was normal RECOMMENDATIONS: Resume prior orders/medications, including pantoprazole and tube feedings. Stool is to be tested for occult blood. If positive, we may consider colonoscopy, depending on when the last one was performed and her overall status. I've discussed all this with her son, Quinton Whitten. Reverse Trendelenberg while in bed. PATIENT CONDITION: stable DISPOSITION: Inpatient REPEAT EXAM: NONE Jaskaran Catalan MD eSigned: Jaskaran Catalan MD 03/21/2018 2:41 PM cc: PATIENT NAME: Ana M Henson MR#: [id number]
[2018-03-21] MEDS: levoFLOXacin Liq 25 MG/ML 100 ML Bottle PO SCH (15:05)
--- NOTE | 2018-03-21 16:11 | P.PNWCN ---
Wound Care Nurse Consult Description: Consult for Coccyx open area per Kanika Garnica/Dr Sullivan Communicated with: OUMOU Boudreaux Dr, RN Recommendation: Calazime BID and PRN for moisture. Ultrasorb underpad for moisture (please no cotton pull pads) Strict Q2H turns from left to right sides only with limited time spent on back for therapies only. Obtain and place patient on Airapy low air loss mattress (ordered). Additional information: Attempted to see patient on for open area to coccyx per RN the wound bed is white and measuring ~2cm x 1.5 cm. Per RN patient is not independently moving herself in bed with wound appearing worse with current treatment. Patient was off unit and unavailable for assessment. Now transferred to [facility] per OUMOU Boudreaux. OUMOU Sidhu was made aware of the bed ordered and the plan for wound care.
[2018-03-21 16:19] LABS: Hematocrit 26.3 % (35.0-46.0); Hemoglobin 8.8 gm/dL (11.6-15.3); Mean Corpuscular HGB Conc 33.5 % (32.0-36.0); Mean Corpuscular Hemoglobin 29.3 pg (27.0-34.0); Mean Corpuscular Volume 87.5 fL (80.0-100.0); Mean Platelet Volume 9.9 fL (7.0-11.0); Platelet Count 108 th/mm3 (150-450); Red Blood Count 3.01 mil/mm3 (4.00-5.30); Red Cell Distribution Width 21.1 % (11.6-17.2)
[2018-03-21] MEDS: Pantoprazole Inj 40 MG Vial IV.PUSH SCH (18:19)
--- NOTE | 2018-03-21 18:45 | P.PN ---
Subjective Interval history: She is in ICU. Went for EGD and was placed on the vent for low sats. Now on 40 % FIO2. Awake and breathing OK. Physical Exam Vital signs: Vital Signs 03/20/18 20:00 03/21/18 00:00 03/21/18 04:00 Temperature 97.8 F 98.4 F 100.7 F H Pulse Rate 75 56 L 62 Respiratory Rate 20 18 14 Blood Pressure 98/63 L 86/42 L 88/43 L Pulse Oximetry 100 97 95 03/21/18 08:00 03/21/18 10:58 03/21/18 12:00 Temperature 97.3 F L 98 F 98.4 F Pulse Rate 63 64 61 Respiratory Rate 16 12 18 Blood Pressure 80/40 L 88/40 L 90/48 L Pulse Oximetry 96 94 L 95 03/21/18 12:30 03/21/18 12:45 03/21/18 13:00 Temperature 98.1 F 98.4 F 99.3 F Pulse Rate 61 58 L 70 Respiratory Rate 16 14 18 Blood Pressure 90/42 L 100/48 L 109/52 L Pulse Oximetry 94 L 94 L 98 03/21/18 13:30 03/21/18 14:39 03/21/18 14:45 Temperature 99.6 F 99.5 F Pulse Rate 64 70 70 Respiratory Rate 18 35 H 32 H Blood Pressure 115/50 L 114/53 L 112/55 L Pulse Oximetry 97 98 98 03/21/18 15:00 03/21/18 15:11 03/21/18 15:13 Temperature Pulse Rate 67 67 Respiratory Rate 30 H 40 H 40 H Blood Pressure 114/58 L Pulse Oximetry 100 97 03/21/18 15:15 03/21/18 15:30 03/21/18 16:00 Temperature 99.2 F 99.2 F Pulse Rate 73 71 69 Respiratory Rate 42 H 45 H 40 H Blood Pressure 112/56 L 113/57 L 113/57 L Pulse Oximetry 98 98 Intake & Output 03/20/18 03/21/18 03/21/18 18:59 06:59 18:59 Intake Total 1000 / 1000 1795 / 1795 1750 / 1750 Output Total 800 / 800 975 / 975 Balance 200 / 200 820 / 820 1750 / 1750 Weight 58.3 kg Intake: IV 1000 / 1000 1005 / 1005 1250 / 1250 1/2 Normal Saline Inj 1,000 ML 1000 / 1000 @ 125 mls/hr IV.CONT .Q8H [facility] Rx#:[id number] KCl Inj 10 MEQ In D5W/LR Inj 1, 1000 / 1000 1005 / 1005 250 / 250 000 ML @ 75 mls/hr IV.SIG . [id number] [facility] Rx#:[id number] Tube Irrigant 550 / 550 Water Bolus Amount 240 / 240 Anesthesia Amount 100 / 100 Intake (Blood Product) Amt 400 / 400 Rbc As-3 Leukoreduced Unit 400 / 400 [id number] Output: Urine 200 / 200 Urine Amount (Catheter) 300 / 300 200 / 200 Female External 300 / 300 200 / 200 Gastric Drainage 500 / 500 575 / 575 Pre-Hospital Gastrojejunostomy 500 / 500 575 / 575 Tube Other: # Voids 2 Date of Last Bowel Movement 03/17/18 03/17/18 # Bowel Movements 2 Narrative: GENERAL: Elderly W/F on the vent with Trach and no acute distress. SKIN: Warm and dry. HEAD: Atraumatic. Normocephalic. EYES: Pupils equal and round. No scleral icterus. No injection or drainage. Glasses are in place. ENT: No nasal bleeding or discharge. Mucous membranes pink and moist. s/p trach. NECK: Trachea midline. No JVD. CARDIOVASCULAR: normal rate, RR. RESPIRATORY: Decreased breath sounds at bases and wheeze. GASTROINTESTINAL: Abdomen soft, nondistended. nontender. GJ tube in place. MUSCULOSKELETAL: Extremities with mild edema. No obvious deformities. NEUROLOGICAL: Awake and alert. Following commands. Moves all 4 extremities spontaneously. - Urinary Catheter Management Female External Cath placed during this visit: no Indwelling Urethral Catheter Cath placed during this visit: yes, but has since been removed by the nurse Reason for continuing: Hourly intake/output Insertion date: 03/06/18 Insertion time: 18:00 Removal date: 03/10/18 Removal time: 17:00 Results - Labs CBC & Chem 7: 03/21/18 16:05 03/21/18 06:21 Laboratory Results - last 24 hr 03/11/18 03/20/18 03/21/18 12:52 23:58 06:21 WBC 5.0 RBC 2.30 L Hgb 7.1 L Hct 21.2 L MCV 92.3 MCH 30.7 MCHC 33.3 RDW 16.9 Plt Count 117 L MPV 11.1 H Prelim Diff (Auto) Manual diff required WBC Differential Manual diff final Seg Neuts % (Manual) 52 Band Neuts % (Manual) 3 Lymphocytes % (Manual) 28 Monocytes % (Manual) 9 H Eosinophils % (Manual) 3 Myelocytes % (Man) 3 H Promyelocytes % (Man) 2 H Abs Neuts (Manual) 3.0 Differential Comment . Toxic Vacuolation Present H Platelet Estimate Low L Platelet Morphology Normal Sodium Potassium Chloride Carbon Dioxide Anion Gap BUN Creatinine Estimated GFR POC Glucose 132 H Random Glucose Calcium Blood Type Antibody Screen MTS Gel Crossmatch See Detail 03/21/18 03/21/18 03/21/18 06:21 06:42 10:16 WBC RBC Hgb Hct MCV MCH MCHC RDW Plt Count MPV Prelim Diff (Auto) WBC Differential Seg Neuts % (Manual) Band Neuts % (Manual) Lymphocytes % (Manual) Monocytes % (Manual) Eosinophils % (Manual) Myelocytes % (Man) Promyelocytes % (Man) Abs Neuts (Manual) Differential Comment Toxic Vacuolation Platelet Estimate Platelet Morphology Sodium 142 Potassium 3.7 Chloride 106 Carbon Dioxide 29.6 Anion Gap 6 BUN 25 H Creatinine 1.26 H Estimated GFR 42 L POC Glucose 140 H Random Glucose 112 H Calcium 7.9 L Blood Type B Positive Antibody Screen Negative MTS Gel Crossmatch See Detail 03/21/18 03/21/18 03/21/18 11:04 15:07 16:05 WBC 6.0 RBC 3.01 L Hgb 8.8 L Hct 26.3 L MCV 87.5 D MCH 29.3 MCHC 33.5 RDW 21.1 H D Plt Count 108 L MPV 9.9 Prelim Diff (Auto) WBC Differential Seg Neuts % (Manual) Band Neuts % (Manual) Lymphocytes % (Manual) Monocytes % (Manual) Eosinophils % (Manual) Myelocytes % (Man) Promyelocytes % (Man) Abs Neuts (Manual) Differential Comment Toxic Vacuolation Platelet Estimate Platelet Morphology Sodium Potassium Chloride Carbon Dioxide Anion Gap BUN Creatinine Estimated GFR POC Glucose 79 Random Glucose Calcium Blood Type Antibody Screen MTS Gel Crossmatch See Detail 03/21/18 17:45 WBC RBC Hgb Hct MCV MCH MCHC RDW Plt Count MPV Prelim Diff (Auto) WBC Differential Seg Neuts % (Manual) Band Neuts % (Manual) Lymphocytes % (Manual) Monocytes % (Manual) Eosinophils % (Manual) Myelocytes % (Man) Promyelocytes % (Man) Abs Neuts (Manual) Differential Comment Toxic Vacuolation Platelet Estimate Platelet Morphology Sodium Potassium Chloride Carbon Dioxide Anion Gap BUN Creatinine Estimated GFR POC Glucose 85 Random Glucose Calcium Blood Type Antibody Screen MTS Gel Crossmatch 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 - Malignant neoplasm of larynx, unspecified Status: Acute (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 Wean Vent to T Bar 35 % FIO2 2. Trach care and lavage PRN 3. Continue Duo nebs q6h 4. PT evaluation to help activity 5. CPAP/PSV 5/10 fi sats <90. 6. Will remove trach sutures next week 7. Tube feeds at 60 CC. 8. CBC, CXR BMP in am (7) Aspiration pneumonia Qualifiers: Aspiration pneumonia type: unspecified Laterality: unspecified laterality Lung location: unspecified part of lung Qualified Code(s): J69.0 - Pneumonitis due to inhalation of food and vomit
[2018-03-22] MEDS: Insulin NovoLOG Aspart Correctional Sugar Inj SQ SCH ×4 (00:10→17:31)
[2018-03-22] MEDS: Oral Hygiene Kit OROPHARYNG SCH ×4 (00:11→15:05)
[2018-03-22] MEDS: Pantoprazole Inj 40 MG Vial IV.PUSH SCH ×2 (01:31→14:31)
[2018-03-22] MEDS: Hypromellose 0.3% Opth Gel 10 GM Bottle EACH EYE SCH ×3 (01:31→17:24)
[2018-03-22] MEDS: Levothyroxine 100 MCG Tablet NG/OG SCH (05:18)
--- NOTE | 2018-03-22 06:07 | XR ---
EXAM DATE: 03/22/2018 4:38 AM EDT AGE/SEX: 73 years / Female INDICATIONS: Follow up pneumonia. CLINICAL DATA: This is the patient's subsequent encounter. Patient reports that signs and symptoms h ave been present for 3 days and indicates a pain score of Nonresponsive. MEDICAL/SURGICAL HISTORY: None. None. [place] [facility] [place]. . FINDINGS: There is persisting consolidation in the left lower lung with loss of delineation of the entire left hemidiaphragm. Hazy opacity in the right lower lung is also stable. Upper lungs are clear. Heart is s table in appearance. CONCLUSION: Stable left lower lobe consolidation and probable right pleural effusion. Electronically signed by: Gab Faria MD 03/22/2018 6:06 AM EDT
--- NOTE | 2018-03-22 07:41 | P.PN ---
Subjective Interval history: Pt seen and examined for f/u of respiratory failure, dysphagia, laryngeal scarring, and aspiration. Underwent EGD yesterday afternoon as G-tube output was noted to be dark. EGD showed esophageal stricture not much better when compared to pre-dilation. There was no signs of active bleeding, and stool Hemoccult was negative. She was placed back on the vent for low sats during the EGD. She is now on FiO2% and tolerating CPAP trials. No further events per nursing. Pt reports she is feeling fine. She is pleasant and smiling. She denies any complaints. Denies CP, SOB, abdominal pain, N/V. Physical Exam Vital signs: Vital Signs 03/21/18 08:00 03/21/18 10:58 03/21/18 12:00 Temperature 97.3 F L 98 F 98.4 F Pulse Rate 63 64 61 Respiratory Rate 16 12 18 Blood Pressure 80/40 L 88/40 L 90/48 L Pulse Oximetry 96 94 L 95 03/21/18 12:30 03/21/18 12:45 03/21/18 13:00 Temperature 98.1 F 98.4 F 99.3 F Pulse Rate 61 58 L 70 Respiratory Rate 16 14 18 Blood Pressure 90/42 L 100/48 L 109/52 L Pulse Oximetry 94 L 94 L 98 03/21/18 13:30 03/21/18 14:39 03/21/18 14:45 Temperature 99.6 F 99.5 F Pulse Rate 64 70 70 Respiratory Rate 18 35 H 32 H Blood Pressure 115/50 L 114/53 L 112/55 L Pulse Oximetry 97 98 98 03/21/18 15:00 03/21/18 15:11 03/21/18 15:13 Temperature Pulse Rate 67 67 Respiratory Rate 30 H 40 H 40 H Blood Pressure 114/58 L Pulse Oximetry 100 97 03/21/18 15:15 03/21/18 15:30 03/21/18 16:00 Temperature 99.2 F 99.2 F Pulse Rate 73 71 69 Respiratory Rate 42 H 45 H 40 H Blood Pressure 112/56 L 113/57 L 113/57 L Pulse Oximetry 98 98 03/21/18 18:00 03/21/18 19:22 03/21/18 19:28 Temperature Pulse Rate 67 75 Respiratory Rate 26 H 28 H Blood Pressure Pulse Oximetry 99 03/21/18 20:00 03/21/18 22:00 03/21/18 22:30 Temperature 98.5 F Pulse Rate 65 57 L Respiratory Rate 45 H 20 Blood Pressure 93/45 L Pulse Oximetry 100 03/22/18 00:00 03/22/18 01:21 03/22/18 02:00 Temperature 98.9 F Pulse Rate 57 L 56 L Respiratory Rate 27 H 10 L Blood Pressure 119/53 L Pulse Oximetry 100 100 03/22/18 04:00 03/22/18 04:11 03/22/18 05:33 Temperature 98.7 F Pulse Rate 59 L 59 L Respiratory Rate 14 10 L Blood Pressure 102/51 L Pulse Oximetry 100 99 Intake & Output 03/21/18 03/22/18 03/22/18 18:59 06:59 18:59 Intake Total 1750 / 1750 1120 / 1120 Output Total 500 / 500 Balance 1750 / 1750 620 / 620 Weight 68 kg Intake: IV 1250 / 1250 1000 / 1000 1/2 Normal Saline Inj 1,000 ML 1000 / 1000 1000 / 1000 @ 125 mls/hr IV.CONT .Q8H ANN Rx#:[id number] KCl Inj 10 MEQ In D5W/LR Inj 1, 250 / 250 000 ML @ 75 mls/hr IV.SIG . [id number] ANN Rx#:[id number] Oral 0 / 0 0 / 0 Water Bolus Amount 120 / 120 Anesthesia Amount 100 / 100 Intake (Blood Product) Amt 400 / 400 Rbc As-3 Leukoreduced Unit 400 / 400 [id number] Output: Gastric Drainage 500 / 500 Pre-Hospital Gastrojejunostomy 500 / 500 Tube Other: Date of Last Bowel Movement 03/17/18 03/17/18 Narrative: GENERAL: Thin, pleasant elderly female resting in bed in [facility]. SKIN: Warm and dry. HEENT: AT/NC. Pupils equal and round. MMM. Edentulous. NECK: Tracheostomy in place, on vent with CPAP HEART: Bradycardic. No appreciable murmurs. LUNGS: Anterior lung sounds clear with no wheezing. ABDOMEN: G/J tube in place. No surrounding erythema or drainage. +BS, soft, NT, ND. EXTREMITIES: No LE edema. Calves supple without tenderness. NEURO: Awake and alert. PSYCH: Appropriate mood and affect. - Urinary Catheter Management Female External Cath placed during this visit: no Indwelling Urethral Catheter Cath placed during this visit: yes, but has since been removed by the nurse Reason for continuing: Hourly intake/output Insertion date: 03/06/18 Insertion time: 18:00 Removal date: 03/10/18 Removal time: 17:00 Results - Labs CBC & Chem 7: 03/21/18 16:05 03/21/18 06:21 Laboratory Results - last 24 hr 03/11/18 03/21/18 03/21/18 12:52 06:21 06:21 WBC 5.0 RBC 2.30 L Hgb 7.1 L Hct 21.2 L MCV 92.3 MCH 30.7 MCHC 33.3 RDW 16.9 Plt Count 117 L MPV 11.1 H Prelim Diff (Auto) Manual diff required WBC Differential Manual diff final Seg Neuts % (Manual) 52 Band Neuts % (Manual) 3 Lymphocytes % (Manual) 28 Monocytes % (Manual) 9 H Eosinophils % (Manual) 3 Myelocytes % (Man) 3 H Promyelocytes % (Man) 2 H Abs Neuts (Manual) 3.0 Differential Comment . Toxic Vacuolation Present H Platelet Estimate Low L Platelet Morphology Normal Sodium 142 Potassium 3.7 Chloride 106 Carbon Dioxide 29.6 Anion Gap 6 BUN 25 H Creatinine 1.26 H Estimated GFR 42 L POC Glucose Random Glucose 112 H Calcium 7.9 L Stl C.difficile Tox PCR St C. diff Tox Epid 027 Blood Type Antibody Screen MTS Gel Crossmatch See Detail 03/21/18 03/21/18 03/21/18 10:16 11:04 11:40 WBC RBC Hgb Hct MCV MCH MCHC RDW Plt Count MPV Prelim Diff (Auto) WBC Differential Seg Neuts % (Manual) Band Neuts % (Manual) Lymphocytes % (Manual) Monocytes % (Manual) Eosinophils % (Manual) Myelocytes % (Man) Promyelocytes % (Man) Abs Neuts (Manual) Differential Comment Toxic Vacuolation Platelet Estimate Platelet Morphology Sodium Potassium Chloride Carbon Dioxide Anion Gap BUN Creatinine Estimated GFR POC Glucose Random Glucose Calcium Stl C.difficile Tox PCR Negative St C. diff Tox Epid 027 Negative Blood Type B Positive Antibody Screen Negative MTS Gel Crossmatch See Detail See Detail 03/21/18 03/21/18 03/21/18 15:07 16:05 17:45 WBC 6.0 RBC 3.01 L Hgb 8.8 L Hct 26.3 L MCV 87.5 D MCH 29.3 MCHC 33.5 RDW 21.1 H D Plt Count 108 L MPV 9.9 Prelim Diff (Auto) WBC Differential Seg Neuts % (Manual) Band Neuts % (Manual) Lymphocytes % (Manual) Monocytes % (Manual) Eosinophils % (Manual) Myelocytes % (Man) Promyelocytes % (Man) Abs Neuts (Manual) Differential Comment Toxic Vacuolation Platelet Estimate Platelet Morphology Sodium Potassium Chloride Carbon Dioxide Anion Gap BUN Creatinine Estimated GFR POC Glucose 79 85 Random Glucose Calcium Stl C.difficile Tox PCR St C. diff Tox Epid 027 Blood Type Antibody Screen MTS Gel Crossmatch 03/22/18 03/22/18 00:08 05:17 WBC RBC Hgb Hct MCV MCH MCHC RDW Plt Count MPV Prelim Diff (Auto) WBC Differential Seg Neuts % (Manual) Band Neuts % (Manual) Lymphocytes % (Manual) Monocytes % (Manual) Eosinophils % (Manual) Myelocytes % (Man) Promyelocytes % (Man) Abs Neuts (Manual) Differential Comment Toxic Vacuolation Platelet Estimate Platelet Morphology Sodium Potassium Chloride Carbon Dioxide Anion Gap BUN Creatinine Estimated GFR POC Glucose 89 89 Random Glucose Calcium Stl C.difficile Tox PCR St C. diff Tox Epid 027 Blood Type Antibody Screen MTS Gel Crossmatch Microbiology 03/21/18 11:40 Stool Stool Occult Blood (LISA) - Final Hemoccult negative - Imaging Impressions Chest X-Ray 03/22/18 00:00 CONCLUSION: Stable left lower lobe consolidation and probable right pleural effusion. Assessment and Plan - Assessment (1) Acute adjustment disorder with depressed mood Code(s): F43.21 - Adjustment disorder with depressed mood Status: Acute (2) Dysphasia Code(s): R47.02 - Dysphasia Status: Acute (3) Respiratory failure Code(s): J96.90 - Respiratory failure, unspecified, unspecified whether with hypoxia or hypercapnia Status: Acute (4) Protein-calorie malnutrition, severe Code(s): E43 - Unspecified severe protein-calorie malnutrition Status: Chronic (5) Laryngeal squamous cell carcinoma Code(s): C32.9 - Malignant neoplasm of larynx, unspecified Status: Acute (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 1. 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 ?GI bleed - Patient with history of GERD and Rendon's esophagus - CT A/P 03/15 with no acute disease - G-tube noted to have dark liquid output on 03/21, GI notified - Transfused 2 units PRBC for Hb 7.1 on 03/21, repeat H&H ./.3 - S/P EGD 03/21 showing radiation telangiectasias in the proximal esophagus, esophageal stricture, inflammatory distal esophageal polyp, normal G-tube placement, and no evidence of blood anywhere in the upper GIT - Stool Hemoccult negative - Continue PPI - Monitor H&H and signs of hemodynamic instability - Hold chemical anticoagulation for now with continued monitoring of hemoglobin 3. Failure to thrive, protein energy malnutrition - Patient with severe pharyngeal dysphagia, esophageal stricture - G/J tube in place flush with 60 cc free water every 8 hours - Vital 1.5 55/hr per nutrition recs via jejunostomy - G-tube to gravity, reverse Trendelenburg while in bed 4. Chronic systolic heart failure - 2D cho 02/23 showing EF 35% with anterior septal hypokinesis and biatrial dilation - Patient euvolemic on exam - Pt would benefit from an SNEHA-I or ARB as well as spironolactone but BPs have been borderline hypotensive so will hold off for now 5. MRSA/Caitlyn tropicalis UTI - S/P treatment with vancomycin, cefepime, and Diflucan 6. Normocytic anemia - Followed by Dr. Pineda for h/o laryngeal cancer - Prior radiation and chemo completed 03/2015 - Hemoccult negative, EGD 03/21 no active bleeding - Iron studies with a mixed picture, likely combination of iron deficiency and anemia of chronic disease - Check B12 and folate - Follow CBC 7. Hypothyroidism - Continue home Levothyroxine 8. 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 Case management assisting with SNF placement, Osorio following Son, ICU PA, requests regular updates (3) Respiratory failure Qualifiers: Chronicity: acute Respiratory failure complication: hypoxia Qualified Code(s ): J96.01 - Acute respiratory failure with hypoxia
[2018-03-22] MEDS: Senna/Docusate Sodium 8.6/50 MG Tablet PO SCH ×2 (08:59→20:35)
[2018-03-22] MEDS: Chlorhexidine 0.12% Oral Kit 15 ML UDC OROPHARYNG SCH ×2 (08:59→20:34)
[2018-03-22] MEDS: predniSONE 20 MG Tablet PO SCH (08:59)
[2018-03-22] MEDS: Ascorbic Acid 500 MG Tablet G-TUBE SCH ×2 (08:59→20:34)
[2018-03-22] MEDS: Mupirocin 2% Nasal Oint Topical Syringe EACH NARE SCH ×2 (09:00→20:35)
[2018-03-22] MEDS: Polyethylene Glycol 3350 17 GM Packet PO SCH ×2 (09:01→20:35)
[2018-03-22 10:32] LABS: Albumin 1.7 g/dL (3.4-5.0); Calcium 7.8 mg/dL (8.5-10.1); Carbon Dioxide 22.9 meq/L (21.0-32.0); Magnesium 1.5 mg/dL (1.5-2.5)
[2018-03-22 10:34] LABS: Hematocrit 24.9 % (35.0-46.0); Hemoglobin 8.5 gm/dL (11.6-15.3); Mean Corpuscular HGB Conc 34.2 % (32.0-36.0); Mean Corpuscular Hemoglobin 29.9 pg (27.0-34.0); Mean Corpuscular Volume 87.6 fL (80.0-100.0); Mean Platelet Volume 9.7 fL (7.0-11.0); Platelet Count 89 th/mm3 (150-450); Red Blood Count 2.84 mil/mm3 (4.00-5.30); Red Cell Distribution Width 20.6 % (11.6-17.2); Total Protein 5.2 g/dL (6.4-8.2); White Blood Count 4.8 th/mm3 (4.0-11.0)
[2018-03-22 11:06] LABS: Eosinophils 3 % (0-4); Lymphocytes 8 % (9-44); Metamyelocytes 1 % (0-1); Monocytes 14 % (0-8); Myelocytes 1 % (0-0); Ovalocytes 1+
[2018-03-22 11:07] LABS: Platelet Morphology Normal (Normal)
[2018-03-22 11:52] LABS: Vitamin B12 1562 pg/mL (193-986)
[2018-03-22] MEDS: levoFLOXacin Liq 25 MG/ML 100 ML Bottle PO SCH (11:55)
--- NOTE | 2018-03-22 13:50 | P.PN ---
Subjective Interval history: She is now off the Vent and on T bar 35 % FIO2 again Physical Exam Vital signs: Vital Signs 03/21/18 14:39 03/21/18 14:45 03/21/18 15:00 Temperature 99.5 F Pulse Rate 70 70 67 Respiratory Rate 35 H 32 H 30 H Blood Pressure 114/53 L 112/55 L 114/58 L Pulse Oximetry 98 98 100 03/21/18 15:11 03/21/18 15:13 03/21/18 15:15 Temperature 99.2 F Pulse Rate 67 73 Respiratory Rate 40 H 40 H 42 H Blood Pressure 112/56 L Pulse Oximetry 97 98 03/21/18 15:30 03/21/18 16:00 03/21/18 18:00 Temperature 99.2 F Pulse Rate 71 69 67 Respiratory Rate 45 H 40 H Blood Pressure 113/57 L 113/57 L Pulse Oximetry 98 03/21/18 19:22 03/21/18 19:28 03/21/18 20:00 Temperature 98.5 F Pulse Rate 75 65 Respiratory Rate 26 H 28 H 45 H Blood Pressure 93/45 L Pulse Oximetry 99 03/21/18 22:00 03/21/18 22:30 03/22/18 00:00 Temperature 98.9 F Pulse Rate 57 L 57 L Respiratory Rate 20 27 H Blood Pressure 119/53 L Pulse Oximetry 100 100 03/22/18 01:21 03/22/18 02:00 03/22/18 04:00 Temperature 98.7 F Pulse Rate 56 L 59 L Respiratory Rate 10 L 14 Blood Pressure 102/51 L Pulse Oximetry 100 100 03/22/18 04:11 03/22/18 05:33 03/22/18 08:00 Temperature 98.3 F Pulse Rate 59 L 62 Respiratory Rate 10 L 11 L Blood Pressure 107/53 L Pulse Oximetry 99 03/22/18 09:00 03/22/18 10:00 03/22/18 12:00 Temperature Pulse Rate 61 60 Respiratory Rate 15 Blood Pressure Pulse Oximetry 99 Intake & Output 03/21/18 03/22/18 03/22/18 18:59 06:59 18:59 Intake Total 1750 / 1750 1120 / 1120 Output Total 500 / 500 Balance 1750 / 1750 620 / 620 Weight 68 kg Intake: IV 1250 / 1250 1000 / 1000 1/2 Normal Saline Inj 1,000 ML 1000 / 1000 1000 / 1000 @ 125 mls/hr IV.CONT .Q8H ANN Rx#:[id number] KCl Inj 10 MEQ In D5W/LR Inj 1, 250 / 250 000 ML @ 75 mls/hr IV.SIG . [id number] [facility] Rx#:[id number] Oral 0 / 0 0 / 0 Water Bolus Amount 120 / 120 Anesthesia Amount 100 / 100 Intake (Blood Product) Amt 400 / 400 Rbc As-3 Leukoreduced Unit 400 / 400 [id number] Output: Gastric Drainage 500 / 500 Pre-Hospital Gastrojejunostomy 500 / 500 Tube Other: Date of Last Bowel Movement 03/17/18 03/17/18 Narrative: GENERAL: Thin, pleasant elderly lady with a Trach in place SKIN: Warm and dry. HEENT: AT/NC. Pupils equal and round. MMM. NECK: Tracheostomy in place, on vent with CPAP HEART: Bradycardic. No appreciable murmurs. LUNGS: lung sounds clear with no wheezing. ABDOMEN: G/J tube in place. No surrounding erythema or drainage. +BS, soft, NT, ND. EXTREMITIES: No LE edema.Moves all. NEURO: Awake and alert. PSYCH: Appropriate mood and affect. - Urinary Catheter Management Female External Cath placed during this visit: no Indwelling Urethral Catheter Cath placed during this visit: yes, but has since been removed by the nurse Reason for continuing: Hourly intake/output Insertion date: 03/06/18 Insertion time: 18:00 Removal date: 03/10/18 Removal time: 17:00 Results - Labs CBC & Chem 7: 03/22/18 09:26 03/22/18 09:26 Laboratory Results - last 24 hr 03/21/18 03/21/18 03/21/18 10:16 11:40 15:07 WBC RBC Hgb Hct MCV MCH MCHC RDW Plt Count MPV Prelim Diff (Auto) WBC Differential Seg Neuts % (Manual) Band Neuts % (Manual) Lymphocytes % (Manual) Monocytes % (Manual) Eosinophils % (Manual) Metamyelocytes % (Man) Myelocytes % (Man) Abs Neuts (Manual) Differential Comment Platelet Estimate Platelet Morphology Ovalocytes Sodium Potassium Chloride Carbon Dioxide Anion Gap BUN Creatinine Estimated GFR POC Glucose 79 Random Glucose Calcium Magnesium Total Bilirubin Direct Bilirubin Indirect Bilirubin AST ALT Alkaline Phosphatase Total Protein Albumin Vitamin B12 Folate Stl C.difficile Tox PCR Negative St C. diff Tox Epid 027 Negative MTS Gel Crossmatch See Detail 03/21/18 03/21/18 03/22/18 16:05 17:45 00:08 WBC 6.0 RBC 3.01 L Hgb 8.8 L Hct 26.3 L MCV 87.5 D MCH 29.3 MCHC 33.5 RDW 21.1 H D Plt Count 108 L MPV 9.9 Prelim Diff (Auto) WBC Differential Seg Neuts % (Manual) Band Neuts % (Manual) Lymphocytes % (Manual) Monocytes % (Manual) Eosinophils % (Manual) Metamyelocytes % (Man) Myelocytes % (Man) Abs Neuts (Manual) Differential Comment Platelet Estimate Platelet Morphology Ovalocytes Sodium Potassium Chloride Carbon Dioxide Anion Gap BUN Creatinine Estimated GFR POC Glucose 85 89 Random Glucose Calcium Magnesium Total Bilirubin Direct Bilirubin Indirect Bilirubin AST ALT Alkaline Phosphatase Total Protein Albumin Vitamin B12 Folate Stl C.difficile Tox PCR St C. diff Tox Epid 027 MTS Gel Crossmatch 03/22/18 03/22/18 03/22/18 05:17 09:26 09:26 WBC 4.8 RBC 2.84 L Hgb 8.5 L Hct 24.9 L MCV 87.6 MCH 29.9 MCHC 34.2 RDW 20.6 H Plt Count 89 L MPV 9.7 Prelim Diff (Auto) Manual diff required WBC Differential Manual diff final Seg Neuts % (Manual) 65 Band Neuts % (Manual) 8 H Lymphocytes % (Manual) 8 L Monocytes % (Manual) 14 H Eosinophils % (Manual) 3 Metamyelocytes % (Man) 1 Myelocytes % (Man) 1 H Abs Neuts (Manual) 3.6 Differential Comment . Platelet Estimate Low L Platelet Morphology Normal Ovalocytes 1+ H Sodium 137 Potassium 3.0 L Chloride 104 Carbon Dioxide 22.9 Anion Gap 10 BUN 24 H Creatinine 1.20 H Estimated GFR 44 L POC Glucose 89 Random Glucose 90 Calcium 7.8 L Magnesium 1.5 Total Bilirubin 0.8 Direct Bilirubin 0.3 H Indirect Bilirubin 0.5 AST 21 ALT 23 Alkaline Phosphatase 79 Total Protein 5.2 L Albumin 1.7 L Vitamin B12 Folate Stl C.difficile Tox PCR St C. diff Tox Epid 027 MTS Gel Crossmatch 03/22/18 03/22/18 09:26 11:07 WBC RBC Hgb Hct MCV MCH MCHC RDW Plt Count MPV Prelim Diff (Auto) WBC Differential Seg Neuts % (Manual) Band Neuts % (Manual) Lymphocytes % (Manual) Monocytes % (Manual) Eosinophils % (Manual) Metamyelocytes % (Man) Myelocytes % (Man) Abs Neuts (Manual) Differential Comment Platelet Estimate Platelet Morphology Ovalocytes Sodium Potassium Chloride Carbon Dioxide Anion Gap BUN Creatinine Estimated GFR POC Glucose 111 H Random Glucose Calcium Magnesium Total Bilirubin Direct Bilirubin Indirect Bilirubin AST ALT Alkaline Phosphatase Total Protein Albumin Vitamin B12 1562 H Folate Greater than 20.0 H Stl C.difficile Tox PCR St C. diff Tox Epid 027 MTS Gel Crossmatch Microbiology 03/21/18 11:40 Stool Stool Occult Blood (LISA) - Final Hemoccult negative - Imaging Impressions Chest X-Ray 03/22/18 00:00 CONCLUSION: Stable left lower lobe consolidation and probable right pleural effusion. 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 Leave on T Bar 30 % FIO2 2. Trach care and lavage PRN 3. Continue Duo nebs q6h 4. PT evaluation to help activity 5. CPAP/PSV 5/10 if sats <90. 6. Will remove trach sutures next week 7. Tube feeds at 60 CC. 8. Transfer to Rehab . (7) Aspiration pneumonia Qualifiers: Aspiration pneumonia type: unspecified Laterality: unspecified laterality Lung location: unspecified part of lung Qualified Code(s): J69.0 - Pneumonitis due to inhalation of food and vomit
[2018-03-23] MEDS: Oral Hygiene Kit OROPHARYNG SCH ×4 (00:02→16:34)
[2018-03-23] MEDS: Insulin NovoLOG Aspart Correctional Sugar Inj SQ SCH ×4 (00:02→17:59)
[2018-03-23] MEDS: Hypromellose 0.3% Opth Gel 10 GM Bottle EACH EYE SCH ×3 (01:00→16:34)
[2018-03-23] MEDS: Pantoprazole Inj 40 MG Vial IV.PUSH SCH ×2 (02:22→14:21)
[2018-03-23] MEDS: Levothyroxine 100 MCG Tablet NG/OG SCH (06:02)
[2018-03-23 06:18] LABS: Hematocrit 24.7 % (35.0-46.0); Hemoglobin 8.3 gm/dL (11.6-15.3); Mean Corpuscular HGB Conc 33.7 % (32.0-36.0); Mean Corpuscular Hemoglobin 29.5 pg (27.0-34.0); Mean Corpuscular Volume 87.7 fL (80.0-100.0); Mean Platelet Volume 9.7 fL (7.0-11.0); Platelet Count 83 th/mm3 (150-450); Red Blood Count 2.81 mil/mm3 (4.00-5.30); Red Cell Distribution Width 20.7 % (11.6-17.2); White Blood Count 4.9 th/mm3 (4.0-11.0)
[2018-03-23 06:47] LABS: Calcium 7.7 mg/dL (8.5-10.1); Carbon Dioxide 24.9 meq/L (21.0-32.0); Potassium 3.4 meq/L (3.5-5.1)
[2018-03-23] MEDS ORDERED: Potassium Chloride 25 MEQ Effervescent Tablet J-TUBE ONE (07:12)
--- NOTE | 2018-03-23 07:15 | P.PN ---
Subjective Interval history: Pt seen and examined for f/u acute respiratory failure and recurrent aspiration secondary to post-radiation laryngeal scarring. She is off of the vent since yesterday and on T-piece with 6L O2 and FiO2 28. No acute events overnight. Per RN, patient was complaining of pain at the site of her coccygeal wound this morning. She was given pain medication and her BP and HR mildly dropped. MAP is stable and patient otherwise with no acute neuro changes. She states that she is much more comfortable and denies further pain. Denies CP, SOB, lightheadedness, or dizziness. Physical Exam Vital signs: Vital Signs 03/22/18 08:00 03/22/18 09:00 03/22/18 10:00 Temperature 98.3 F Pulse Rate 62 61 Respiratory Rate 11 L Blood Pressure 107/53 L Pulse Oximetry 99 03/22/18 12:00 03/22/18 13:46 03/22/18 14:00 Temperature 98.3 F Pulse Rate 60 57 L 55 L Respiratory Rate 18 40 H 26 H Blood Pressure 97/53 L 97/53 L Pulse Oximetry 100 100 03/22/18 15:00 03/22/18 16:00 03/22/18 17:00 Temperature 98 F Pulse Rate 55 L 62 56 L Respiratory Rate 33 H 24 26 H Blood Pressure 100/54 L 92/46 L 95/49 L Pulse Oximetry 98 99 98 03/22/18 18:00 03/22/18 20:00 03/22/18 20:18 Temperature 98.7 F Pulse Rate 58 L 57 L Respiratory Rate 26 H 29 H Blood Pressure 100/49 L 95/49 L Pulse Oximetry 98 100 98 03/22/18 22:00 03/23/18 00:00 03/23/18 02:00 Temperature 99 F Pulse Rate 56 L 59 L 56 L Respiratory Rate 28 H Blood Pressure 106/52 L Pulse Oximetry 100 03/23/18 04:00 03/23/18 06:00 03/23/18 06:02 Temperature 98.8 F Pulse Rate 62 53 L Respiratory Rate 25 H 22 Blood Pressure 100/49 L Pulse Oximetry 100 Intake & Output 03/22/18 03/23/18 03/23/18 18:59 06:59 18:59 Intake Total 580 / 580 Output Total 600 / 600 650 / 650 Balance -20 / -20 -650 / -650 Weight 166 kg Intake: Oral 0 / 0 Tube Feeding 380 / 380 Water Bolus Amount 200 / 200 Output: Urine 600 / 600 250 / 250 Gastric Drainage 400 / 400 Pre-Hospital Gastrojejunostomy 400 / 400 Tube Other: # Voids 1 Date of Last Bowel Movement 03/22/18 # Bowel Movements 2 Narrative: GENERAL: Thin, pleasant elderly lady with a Trach in place SKIN: Warm and dry. HEENT: AT/NC. Pupils equal and round. MMM. NECK: Tracheostomy in place. HEART: Bradycardic. No appreciable murmurs. LUNGS: Lung sounds clear with no wheezing. ABDOMEN: G/J tube in place. No surrounding erythema or drainage. +BS, soft, NT, ND. EXTREMITIES: No LE edema. MAEW. Diminished pedal pulses. Calves supple with no tenderness. NEURO: Awake and alert. PSYCH: Appropriate mood and affect. - Urinary Catheter Management Female External Cath placed during this visit: no Indwelling Urethral Catheter Cath placed during this visit: yes, but has since been removed by the nurse Reason for continuing: Hourly intake/output Insertion date: 03/06/18 Insertion time: 18:00 Removal date: 03/10/18 Removal time: 17:00 Results - Labs CBC & Chem 7: 03/23/18 04:10 03/23/18 04:10 Laboratory Results - last 24 hr 03/22/18 03/22/18 03/22/18 09:26 09:26 09:26 WBC 4.8 RBC 2.84 L Hgb 8.5 L Hct 24.9 L MCV 87.6 MCH 29.9 MCHC 34.2 RDW 20.6 H Plt Count 89 L MPV 9.7 Prelim Diff (Auto) Manual diff required WBC Differential Manual diff final Seg Neuts % (Manual) 65 Band Neuts % (Manual) 8 H Lymphocytes % (Manual) 8 L Monocytes % (Manual) 14 H Eosinophils % (Manual) 3 Metamyelocytes % (Man) 1 Myelocytes % (Man) 1 H Abs Neuts (Manual) 3.6 Differential Comment . Platelet Estimate Low L Platelet Morphology Normal Ovalocytes 1+ H Sodium 137 Potassium 3.0 L Chloride 104 Carbon Dioxide 22.9 Anion Gap 10 BUN 24 H Creatinine 1.20 H Estimated GFR 44 L POC Glucose Random Glucose 90 Calcium 7.8 L Magnesium 1.5 Total Bilirubin 0.8 Direct Bilirubin 0.3 H Indirect Bilirubin 0.5 AST 21 ALT 23 Alkaline Phosphatase 79 Total Protein 5.2 L Albumin 1.7 L Vitamin B12 1562 H Folate Greater than 20.0 H 03/22/18 03/22/18 03/23/18 11:07 17:25 00:01 WBC RBC Hgb Hct MCV MCH MCHC RDW Plt Count MPV Prelim Diff (Auto) WBC Differential Seg Neuts % (Manual) Band Neuts % (Manual) Lymphocytes % (Manual) Monocytes % (Manual) Eosinophils % (Manual) Metamyelocytes % (Man) Myelocytes % (Man) Abs Neuts (Manual) Differential Comment Platelet Estimate Platelet Morphology Ovalocytes Sodium Potassium Chloride Carbon Dioxide Anion Gap BUN Creatinine Estimated GFR POC Glucose 111 H 169 H 140 H Random Glucose Calcium Magnesium Total Bilirubin Direct Bilirubin Indirect Bilirubin AST ALT Alkaline Phosphatase Total Protein Albumin Vitamin B12 Folate 03/23/18 03/23/18 03/23/18 04:10 04:10 06:01 WBC 4.9 RBC 2.81 L Hgb 8.3 L Hct 24.7 L MCV 87.7 MCH 29.5 MCHC 33.7 RDW 20.7 H Plt Count 83 L MPV 9.7 Prelim Diff (Auto) WBC Differential Seg Neuts % (Manual) Band Neuts % (Manual) Lymphocytes % (Manual) Monocytes % (Manual) Eosinophils % (Manual) Metamyelocytes % (Man) Myelocytes % (Man) Abs Neuts (Manual) Differential Comment Platelet Estimate Platelet Morphology Ovalocytes Sodium 137 Potassium 3.4 L Chloride 103 Carbon Dioxide 24.9 Anion Gap 9 BUN 29 H Creatinine 1.19 H Estimated GFR 45 L POC Glucose 101 Random Glucose 99 Calcium 7.7 L Magnesium Total Bilirubin Direct Bilirubin Indirect Bilirubin AST ALT Alkaline Phosphatase Total Protein Albumin Vitamin B12 Folate Assessment and Plan - Assessment (1) Acute adjustment disorder with depressed mood Code(s): F43.21 - Adjustment disorder with depressed mood Status: Acute (2) Dysphasia Code(s): R47.02 - Dysphasia Status: Acute (3) Respiratory failure Code(s): J96.90 - Respiratory failure, unspecified, unspecified whether with hypoxia or hypercapnia Status: Acute (4) Protein-calorie malnutrition, severe Code(s): E43 - Unspecified severe protein-calorie malnutrition Status: Chronic (5) Laryngeal squamous cell carcinoma Code(s): C32.9 - Malignant neoplasm of larynx, unspecified Status: Acute (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 1. 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 ?GI bleed/dark G-tube output - resolved - Patient with history of GERD and Rendon's esophagus - CT A/P 03/15 with no acute disease - G-tube noted to have dark liquid output on 03/21, GI notified - Transfused 2 units PRBC for Hb 7.1 on 03/21, repeat H&H 8.8/26.3 - S/P EGD 03/21 showing radiation telangiectasias in the proximal esophagus, esophageal stricture, inflammatory distal esophageal polyp, normal G-tube placement, and no evidence of blood anywhere in the upper GIT - Stool Hemoccult negative - Continue PPI - Monitor H&H and signs of hemodynamic instability 3. Failure to thrive, protein energy malnutrition - Patient with severe pharyngeal dysphagia, esophageal stricture - G/J tube in place flush with 60 cc free water every 8 hours - Vital 1.5 55/hr per nutrition recs via jejunostomy - G-tube to gravity, reverse Trendelenburg while in bed 4. Chronic systolic heart failure - 2D cho 02/23 showing EF 35% with anterior septal hypokinesis and biatrial dilation - Patient euvolemic on exam - Pt would benefit from an SNEHA-I or ARB as well as spironolactone but BPs have been borderline hypotensive so will hold off for now 5. MRSA/Caitlyn tropicalis UTI - S/P treatment with vancomycin, cefepime, and Diflucan 6. Normocytic anemia - Followed by Dr. Pineda for h/o laryngeal cancer - Prior radiation and chemo completed 03/2015 - Hemoccult negative, EGD 03/21 no active bleeding - Iron studies with a mixed picture, likely combination of iron deficiency and anemia of chronic disease - Normal B12 and folate - H&H has been stable - Continue to monitor CBC 7. Hypothyroidism - Continue home Levothyroxine 8. Adjustment disorder with depression - Continue Lexapro 9. Coccygeal wound - Wound care following - Calazime BID and PRN for moisture - Ultrasorb underpad for moisture - Strict Q2H turns from left to right sides only with limited time spent on back for therapies only - Obtain and place patient on Airapy low air loss mattress DVT prophylaxis: SCDs, resume heparin Disposition: Transfer to floor today, start PT Discharge Planning: Patient will need rehab on discharge. Case management assisting with SNF placement, [facility] following Son, ICU PA, requests regular updates (3) Respiratory failure Qualifiers: Chronicity: acute Respiratory failure complication: hypoxia Qualified Code(s ): J96.01 - Acute respiratory failure with hypoxia
[2018-03-23] MEDS: Senna/Docusate Sodium 8.6/50 MG Tablet PO SCH ×2 (09:38→21:49)
[2018-03-23] MEDS: Mupirocin 2% Nasal Oint Topical Syringe EACH NARE SCH ×2 (09:39→21:50)
[2018-03-23] MEDS: Chlorhexidine 0.12% Oral Kit 15 ML UDC OROPHARYNG SCH (09:39)
[2018-03-23] MEDS: Polyethylene Glycol 3350 17 GM Packet PO SCH (09:39)
[2018-03-23] MEDS: Ascorbic Acid 500 MG Tablet G-TUBE SCH ×2 (09:39→21:52)
[2018-03-23] MEDS: Heparin - SQ 10,000 UNITS/ML Vial SQ SCH ×2 (09:40→21:48)
[2018-03-23] MEDS: levoFLOXacin Liq 25 MG/ML 100 ML Bottle PO SCH (12:12)
--- NOTE | 2018-03-23 12:53 | P.PN ---
Subjective Interval history: Stable on T bar at 28 % FIO2. has back pain. No fever. CXR is stable. Physical Exam Vital signs: Vital Signs 03/22/18 13:46 03/22/18 14:00 03/22/18 15:00 Temperature Pulse Rate 57 L 55 L 55 L Respiratory Rate 40 H 26 H 33 H Blood Pressure 97/53 L 100/54 L Pulse Oximetry 100 100 98 03/22/18 16:00 03/22/18 17:00 03/22/18 18:00 Temperature 98 F Pulse Rate 62 56 L 58 L Respiratory Rate 24 26 H 26 H Blood Pressure 92/46 L 95/49 L 100/49 L Pulse Oximetry 99 98 98 03/22/18 20:00 03/22/18 20:18 03/22/18 22:00 Temperature 98.7 F Pulse Rate 57 L 56 L Respiratory Rate 29 H Blood Pressure 95/49 L Pulse Oximetry 100 98 03/23/18 00:00 03/23/18 02:00 03/23/18 04:00 Temperature 99 F 98.8 F Pulse Rate 59 L 56 L 62 Respiratory Rate 28 H 25 H Blood Pressure 106/52 L 100/49 L Pulse Oximetry 100 100 03/23/18 06:00 03/23/18 06:02 03/23/18 07:40 Temperature Pulse Rate 53 L Respiratory Rate 22 Blood Pressure Pulse Oximetry 99 03/23/18 08:00 03/23/18 10:00 03/23/18 12:00 Temperature 99.3 F 98.8 F Pulse Rate 55 L 57 L 61 Respiratory Rate 21 22 Blood Pressure 93/52 L 99/52 L Pulse Oximetry 98 99 Intake & Output 03/22/18 03/23/18 03/23/18 18:59 06:59 18:59 Intake Total 580 / 580 Output Total 600 / 600 650 / 650 Balance -20 / -20 -650 / -650 Weight 166 kg Intake: Oral 0 / 0 Tube Feeding 380 / 380 Water Bolus Amount 200 / 200 Output: Urine 600 / 600 250 / 250 Gastric Drainage 400 / 400 Pre-Hospital Gastrojejunostomy 400 / 400 Tube Other: # Voids 1 Date of Last Bowel Movement 03/22/18 03/22/18 # Bowel Movements 2 Narrative: GENERAL: Thin, pleasant elderly lady with a Trach in place SKIN: Warm and dry. HEENT: AT/NC. Pupils equal and round. MMM. NECK: Tracheostomy in place.Mild clear secretions HEART: S1 S2, No appreciable murmurs. LUNGS: Lung sounds clear with no wheezing. Decreased breath sounds at Bases. ABDOMEN: G/J tube in place. No surrounding erythema or drainage. +BS, soft, NT, ND. EXTREMITIES: No LE edema. Diminished pedal pulses. Calves with no tenderness. NEURO: Awake and alert. PSYCH: Appropriate mood and affect. - Urinary Catheter Management Female External Cath placed during this visit: no Indwelling Urethral Catheter Cath placed during this visit: yes, but has since been removed by the nurse Reason for continuing: Hourly intake/output Insertion date: 03/06/18 Insertion time: 18:00 Removal date: 03/10/18 Removal time: 17:00 Results - Labs CBC & Chem 7: 03/23/18 04:10 03/23/18 04:10 Laboratory Results - last 24 hr 03/22/18 03/23/18 03/23/18 17:25 00:01 04:10 WBC 4.9 RBC 2.81 L Hgb 8.3 L Hct 24.7 L MCV 87.7 MCH 29.5 MCHC 33.7 RDW 20.7 H Plt Count 83 L MPV 9.7 Sodium Potassium Chloride Carbon Dioxide Anion Gap BUN Creatinine Estimated GFR POC Glucose 169 H 140 H Random Glucose Calcium 03/23/18 03/23/18 03/23/18 04:10 06:01 12:04 WBC RBC Hgb Hct MCV MCH MCHC RDW Plt Count MPV Sodium 137 Potassium 3.4 L Chloride 103 Carbon Dioxide 24.9 Anion Gap 9 BUN 29 H Creatinine 1.19 H Estimated GFR 45 L POC Glucose 101 125 H Random Glucose 99 Calcium 7.7 L 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 - Malignant neoplasm of larynx, unspecified Status: Acute (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 Leave on T Bar 28 % FIO2 2. Trach care and lavage PRN 3. Continue Duo nebs q6h 4. PT evaluation to help activity 5. CPAP/PSV 5/10 if sats <90. 6. Will remove trach sutures next week 7. Tube feeds at 60 CC. 8. Transfer to Rehab when bed available. 9. wound management for sacral wound (7) Aspiration pneumonia Qualifiers: Aspiration pneumonia type: unspecified Laterality: unspecified laterality Lung location: unspecified part of lung Qualified Code(s): J69.0 - Pneumonitis due to inhalation of food and vomit
[2018-03-24] MEDS: Polyethylene Glycol 3350 17 GM Packet PO SCH ×3 (00:22→20:51)
[2018-03-24] MEDS: Chlorhexidine 0.12% Oral Kit 15 ML UDC OROPHARYNG SCH ×3 (00:23→20:50)
[2018-03-24] MEDS: Oral Hygiene Kit OROPHARYNG SCH ×4 (00:56→17:57)
[2018-03-24] MEDS: Insulin NovoLOG Aspart Correctional Sugar Inj SQ SCH ×4 (00:56→18:38)
[2018-03-24] MEDS: Hypromellose 0.3% Opth Gel 10 GM Bottle EACH EYE SCH ×3 (00:57→17:57)
--- NOTE | 2018-03-24 08:16 | P.PN ---
Subjective Interval history: Pt seen and examined. Low grade temperature of 100 overnight. Afebrile this morning. No tachycardia, leukocytosis, or acute desaturation. Pt reports she is feeling fine. Denies CP, SOB, abdominal pain, N/V. J-tube feed noted to be clogged at the bedside with backflow of the TFs. D/W nursing. D/W son. Concerned about depression despite being on Lexapro. Would like to try another agent and suggests Wellbutrin. He would also ideally like the patient to go to [facility]. 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 Physical Exam Vital signs: Vital Signs 03/23/18 10:00 03/23/18 12:00 03/23/18 13:43 Temperature 98.8 F Pulse Rate 57 L 61 Respiratory Rate 22 21 Blood Pressure 99/52 L Pulse Oximetry 99 03/23/18 14:00 03/23/18 16:00 03/23/18 20:00 Temperature 98.6 F 99.2 F Pulse Rate 66 77 66 Respiratory Rate 20 19 Blood Pressure 97/54 L 97/66 L Pulse Oximetry 98 97 03/23/18 22:11 03/24/18 00:00 03/24/18 04:00 Temperature 100.0 F H Pulse Rate 70 Respiratory Rate 19 19 Blood Pressure 90/43 L Pulse Oximetry 97 95 Intake & Output 03/23/18 03/24/18 03/24/18 18:59 06:59 18:59 Intake Total 760 / 760 846 / 846 Output Total 1375 / 1375 650 / 650 Balance -615 / -615 196 / 196 Weight 166 kg Intake: Oral 0 / 0 Tube Feeding 560 / 560 646 / 646 Water Bolus Amount 200 / 200 200 / 200 Output: Urine 500 / 500 650 / 650 Gastric Drainage 875 / 875 Pre-Hospital Gastrojejunostomy 875 / 875 Tube Other: # Incontinent Voids 0 Date of Last Bowel Movement 03/22/18 03/22/18 # Bowel Movements 0 Narrative: GENERAL: Thin, pleasant elderly lady with a Trach in place SKIN: Warm and dry. HEENT: AT/NC. Pupils equal and round. MMM. NECK: Tracheostomy in place with sutures. HEART: RRR no m/r/g/. LUNGS: Lung sounds clear with no wheezing. ABDOMEN: G/J tube in place. No surrounding erythema or drainage. J-tube with backflow of running TF. +BS, soft, NT, ND. EXTREMITIES: No LE edema. Diminished pedal pulses. Calves with no tenderness. NEURO: Awake and alert. PSYCH: Appropriate mood and affect. - Urinary Catheter Management Female External Cath placed during this visit: no Indwelling Urethral Catheter Cath placed during this visit: yes, but has since been removed by the nurse Reason for continuing: Hourly intake/output Insertion date: 03/06/18 Insertion time: 18:00 Removal date: 03/10/18 Removal time: 17:00 Results - Labs CBC & Chem 7: 03/24/18 09:47 03/24/18 09:47 Laboratory Results - last 24 hr 03/21/18 03/23/18 03/23/18 11:04 12:04 16:53 POC Glucose 125 H 131 H MTS Gel Crossmatch See Detail 03/24/18 00:40 POC Glucose 138 H MTS Gel Crossmatch Assessment and Plan - Assessment (1) Acute adjustment disorder with depressed mood Code(s): F43.21 - Adjustment disorder with depressed mood Status: Acute (2) Dysphasia Code(s): R47.02 - Dysphasia Status: Acute (3) Respiratory failure Code(s): J96.90 - Respiratory failure, unspecified, unspecified whether with hypoxia or hypercapnia Status: Acute (4) Protein-calorie malnutrition, severe Code(s): E43 - Unspecified severe protein-calorie malnutrition Status: Chronic (5) Laryngeal squamous cell carcinoma Code(s): C32.9 - Malignant neoplasm of larynx, unspecified Status: Acute (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 1. Low-grade fever - Overnight Tmax 100, afebrile since - No leukocytosis - Repeat CXR in the AM - Check U/A - Continue Levaquin for PNA 2. Aspiration PNA, acute on chronic respiratory failure - Patient with history of supraglottic laryngeal cancer s/p radiation and chemo resulting in radiation-induced laryngeal scarring and recurrent aspiration - Presented on 03/06 with respiratory distress and saturations in the 50s, intubated emergently by ED physician - Sputum culture 03/08 growing MRSA - S/P treatment for aspiration PNA with Cefepime, Flagyl, and Vancomycin - S/P tracheostomy 03/11 with general surgery - Pulmonology following - CXR 03/22 showing stable LLL consolidation and probable right pleural effusion - Bronchodilators - On T-piece now with FiO2 28 - Remove sutures 3. ?GI bleed/dark G-tube output - resolved - Patient with history of GERD and Rendon's esophagus - CT A/P 03/15 with no acute disease - G-tube noted to have dark liquid output on 03/21, GI notified - Transfused 2 units PRBC for Hb 7.1 on 03/21, repeat H&H .04/13.3 - S/P EGD 03/21 showing radiation telangiectasias in the proximal esophagus, esophageal stricture, inflammatory distal esophageal polyp, normal G-tube placement, and no evidence of blood anywhere in the upper GIT - Stool Hemoccult negative - Continue PPI - Monitor H&H and signs of hemodynamic instability 4. Failure to thrive, protein energy malnutrition - Patient with severe pharyngeal dysphagia, esophageal stricture - G/J tube in place flush with 60 cc free water every 8 hours - Vital 1.5 55/hr per nutrition recs via jejunostomy - G-tube to gravity, reverse Trendelenburg while in bed 5. Chronic systolic heart failure - 2D cho 02/23 showing EF 35% with anterior septal hypokinesis and biatrial dilation - Patient euvolemic on exam - Pt would benefit from an SNEHA-I or ARB as well as spironolactone but BPs have been borderline hypotensive so will hold off for now 6. MRSA/Caitlyn tropicalis UTI - S/P treatment with vancomycin, cefepime, and Diflucan 7. Normocytic anemia - Followed by Dr. Pineda for h/o laryngeal cancer - Prior radiation and chemo completed 03/2015 - Hemoccult negative, EGD 03/21 no active bleeding - Iron studies with a mixed picture, likely combination of iron deficiency and anemia of chronic disease - Normal B12 and folate - H&H decreased today to 7.6/23.2 - Remains hemodynamically stable - Transfuse if Hb drops below 7.0 - Continue to monitor CBC 7. Hypothyroidism - Continue home Levothyroxine 8. Adjustment disorder with depression - Continue Lexapro - Add Wellbutrin 75 mg BID 9. 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 Case management assisting with SNF placement, [facility] following Son, ICU PA, requests regular updates. Hoping for acceptance to [facility] Consulted rehab MD today for eval (3) Respiratory failure Qualifiers: Chronicity: acute Respiratory failure complication: hypoxia Qualified Code(s ): J96.01 - Acute respiratory failure with hypoxia
[2018-03-24] MEDS: Pantoprazole Inj 40 MG Vial IV.PUSH SCH ×2 (10:29→13:40)
[2018-03-24] MEDS: Levothyroxine 100 MCG Tablet NG/OG SCH (10:30)
[2018-03-24] MEDS: Mupirocin 2% Nasal Oint Topical Syringe EACH NARE SCH ×2 (10:32→20:51)
[2018-03-24] MEDS: Potassium Chloride 25 MEQ Effervescent Tablet J-TUBE SCH (10:32)
[2018-03-24] MEDS: Heparin - SQ 10,000 UNITS/ML Vial SQ SCH ×2 (10:32→20:50)
[2018-03-24] MEDS: levoFLOXacin Liq 25 MG/ML 100 ML Bottle PO SCH (10:33)
[2018-03-24] MEDS: Ascorbic Acid 500 MG Tablet G-TUBE SCH ×2 (10:33→20:52)
[2018-03-24] MEDS: buPROPion 75 MG Tablet PO SCH ×2 (10:33→20:52)
[2018-03-24] MEDS: Senna/Docusate Sodium 8.6/50 MG Tablet PO SCH ×2 (10:33→20:52)
[2018-03-24 10:34] LABS: Hematocrit 23.2 % (35.0-46.0); Hemoglobin 7.6 gm/dL (11.6-15.3); Mean Corpuscular Hemoglobin 28.8 pg (27.0-34.0); Mean Corpuscular Volume 87.3 fL (80.0-100.0); Mean Platelet Volume 9.9 fL (7.0-11.0); Red Blood Count 2.65 mil/mm3 (4.00-5.30); Red Cell Distribution Width 20.3 % (11.6-17.2); White Blood Count 4.6 th/mm3 (4.0-11.0)
[2018-03-24 10:44] LABS: Calcium 7.8 mg/dL (8.5-10.1); Carbon Dioxide 23.9 meq/L (21.0-32.0); Potassium 3.6 meq/L (3.5-5.1)
[2018-03-24 11:12] LABS: Platelet Count 120 th/mm3 (150-450)
--- NOTE | 2018-03-24 13:01 | P.PN ---
Subjective Interval history: C/O pains in heel. Taking Ice chips . Had some fever. On a T bar at 28 % Physical Exam Vital signs: Vital Signs 03/23/18 13:43 03/23/18 14:00 03/23/18 16:00 Temperature 98.6 F Pulse Rate 66 77 Respiratory Rate 21 20 Blood Pressure 97/54 L Pulse Oximetry 98 03/23/18 20:00 03/23/18 22:11 03/24/18 00:00 Temperature 99.2 F 100.0 F H Pulse Rate 66 70 Respiratory Rate 19 19 Blood Pressure 97/66 L 90/43 L Pulse Oximetry 97 97 95 03/24/18 04:00 03/24/18 08:00 03/24/18 08:48 Temperature 97.6 F Pulse Rate 78 Respiratory Rate 19 12 Blood Pressure 94/45 L Pulse Oximetry 98 95 03/24/18 12:00 Temperature 99.5 F Pulse Rate 66 Respiratory Rate 12 Blood Pressure 98/50 L Pulse Oximetry 97 Intake & Output 03/23/18 03/24/18 03/24/18 18:59 06:59 18:59 Intake Total 760 / 760 846 / 846 Output Total 1375 / 1375 650 / 650 Balance -615 / -615 196 / 196 Weight 166 kg Intake: Oral 0 / 0 Tube Feeding 560 / 560 646 / 646 Water Bolus Amount 200 / 200 200 / 200 Output: Urine 500 / 500 650 / 650 Gastric Drainage 875 / 875 Pre-Hospital Gastrojejunostomy 875 / 875 Tube Other: # Incontinent Voids 0 Date of Last Bowel Movement 03/22/18 03/22/18 # Bowel Movements 0 Narrative: GENERAL: Thin, pleasant elderly lady with a Trach in place SKIN: Warm and dry. HEENT: Pupils equal and round. Throat clear. NECK: Tracheostomy in place. HEART: RRR no m/r/g/. LUNGS: Lung sounds clear with no wheezing. ABDOMEN: G/J tube in place. No surrounding erythema or drainage. J-tube with backflow of running TF. +BS, soft, NT, ND. EXTREMITIES: No LE edema. Diminished pedal pulses. Calves with no tenderness. NEURO: Awake and alert. No focal deficits. PSYCH: Appropriate mood and affect. - Urinary Catheter Management Female External Cath placed during this visit: no Indwelling Urethral Catheter Cath placed during this visit: yes, but has since been removed by the nurse Reason for continuing: Hourly intake/output Insertion date: 03/06/18 Insertion time: 18:00 Removal date: 03/10/18 Removal time: 17:00 Results - Labs CBC & Chem 7: 03/24/18 09:47 03/24/18 09:47 Laboratory Results - last 24 hr 03/21/18 03/23/18 03/24/18 11:04 16:53 00:40 WBC RBC Hgb Hct MCV MCH MCHC RDW Plt Count MPV Sodium Potassium Chloride Carbon Dioxide Anion Gap BUN Creatinine Estimated GFR POC Glucose 131 H 138 H Random Glucose Calcium MTS Gel Crossmatch See Detail 03/24/18 03/24/18 09:47 09:47 WBC 4.6 RBC 2.65 L Hgb 7.6 L Hct 23.2 L MCV 87.3 MCH 28.8 MCHC 33.0 RDW 20.3 H Plt Count 120 L D MPV 9.9 Sodium 139 Potassium 3.6 Chloride 105 Carbon Dioxide 23.9 Anion Gap 10 BUN 31 H Creatinine 1.09 H Estimated GFR 49 L POC Glucose Random Glucose 84 Calcium 7.8 L MTS Gel Crossmatch 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 - Malignant neoplasm of larynx, unspecified Status: Acute (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 Leave on T Bar 28 % FIO2 2. Trach care and lavage PRN 3. Continue Duo nebs q6h 4. PT evaluation to help activity 5. CPAP/PSV 5/10 if sats <90. 6. Will remove trach sutures 7. Tube feeds at 60 CC. 8. Chest Xray in am 9. wound management for sacral wound (7) Aspiration pneumonia Qualifiers: Aspiration pneumonia type: unspecified Laterality: unspecified laterality Lung location: unspecified part of lung Qualified Code(s): J69.0 - Pneumonitis due to inhalation of food and vomit
[2018-03-24] MEDS: Morphine Inj 4 MG/ML Vial IV.PUSH PRN (14:38)
[2018-03-24] MEDS: Dextrose 5%/NaCl 0.9% Inj 1,000 ML IV.CONT SCH (18:38)
--- NOTE | 2018-03-24 21:00 | P.PNWCN ---
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 Apply Calazime skin barrier film to surrounding skin on coccyx and allow to dry. Apply OptiFoam adhesive to coccyx wound Q3D and PRN for soiling or dislodgement. Ultrasorb underpad for moisture (please no cotton pull pads) Strict Q2H turns from left to right sides only with limited time spent on back for therapies only. Obtain and place patient on Airapy low air loss mattress (ordered). Additional information: Patient seen on for coccyx wound and new skin tear noted to left buttock. Wound/Pressure Injury - Wound Midline Coccyx Wound Staging: Stage IV Wound Type: Pressure Injury Requested from Provider a Wound Care Consult: Yes (Dr Sullivan) Length: 1.5 (cm) Width: 0.9 (cm) Depth: 0.1 (cm) Wound Bed Appearance: White (full thickness skin loss) Drainage Amount: None Drainage Odor: No Odor Dressing Status: Open to Air Cleansing Solution: Saline Topical: calazime Left Buttock Wound Type: Skin Tear Is This a Chronic Wound: No Requested from Provider a Wound Care Consult: No Length: 3 (cm) Width: 2 (cm) Depth: 0.1 (cm) Wound Bed Appearance: [place], Red, Shiny Wound Bed Appearance: moist Drainage Description: Sanguinous Drainage Amount: Scant Dressing Status: Open to Air Topical: Calazime
[2018-03-25] MEDS: Insulin NovoLOG Aspart Correctional Sugar Inj SQ SCH (00:24)
[2018-03-25] MEDS: Pantoprazole Inj 40 MG Vial IV.PUSH SCH ×2 (02:01→13:19)
[2018-03-25] MEDS: Oral Hygiene Kit OROPHARYNG SCH (02:02)
[2018-03-25] MEDS: Hypromellose 0.3% Opth Gel 10 GM Bottle EACH EYE SCH ×3 (02:02→17:27)
--- NOTE | 2018-03-25 06:47 | XR ---
EXAM DATE: 03/25/2018 6:43 AM EDT AGE/SEX: 73 years / Female INDICATIONS: Short of breath, evaluate infiltrate CLINICAL DATA: This is the patient's subsequent encounter. Patient reports that signs and symptoms h ave been present for 3 weeks and indicates a pain score of Nonresponsive. MEDICAL/SURGICAL HISTORY: . laryngeal ca, milan's esophagus, pneumonia, sepsis Appendectomy. hernia repair, tracheostomy COMPARISON: [facility], CHEST 1V SINGLE AP, 03/22/2018. . FINDINGS: Tracheostomy tube, left lower lobe greater than right lower lobe airspace disease again seen. Tiny le ft effusion. Aortic calcification. Osseous structures are intact. CONCLUSION: Stable appearance of the chest. Electronically signed by: Kolby Ray MD 03/25/2018 6:45 AM EDT
[2018-03-25 08:21] LABS: Hemoglobin 7.3 gm/dL (11.6-15.3); Mean Corpuscular HGB Conc 33.3 % (32.0-36.0); Mean Corpuscular Hemoglobin 29.2 pg (27.0-34.0); Mean Corpuscular Volume 87.7 fL (80.0-100.0); Mean Platelet Volume 10.5 fL (7.0-11.0); Platelet Count 79 th/mm3 (150-450); Red Cell Distribution Width 19.9 % (11.6-17.2); White Blood Count 3.8 th/mm3 (4.0-11.0)
[2018-03-25] MEDS: Potassium Chloride 25 MEQ Effervescent Tablet J-TUBE SCH (08:33)
[2018-03-25] MEDS: Mupirocin 2% Nasal Oint Topical Syringe EACH NARE SCH ×2 (08:33→22:48)
[2018-03-25] MEDS: Chlorhexidine 0.12% Oral Kit 15 ML UDC OROPHARYNG SCH ×2 (08:33→22:39)
[2018-03-25] MEDS: Senna/Docusate Sodium 8.6/50 MG Tablet PO SCH ×2 (08:34→22:31)
[2018-03-25] MEDS: Polyethylene Glycol 3350 17 GM Packet PO SCH ×2 (08:34→22:30)
[2018-03-25] MEDS: Ascorbic Acid 500 MG Tablet G-TUBE SCH ×2 (08:35→22:31)
[2018-03-25] MEDS: buPROPion 75 MG Tablet PO SCH ×2 (08:36→22:31)
[2018-03-25 08:46] LABS: Carbon Dioxide 26.4 meq/L (21.0-32.0); Potassium 3.5 meq/L (3.5-5.1)
--- NOTE | 2018-03-25 10:10 | P.PN ---
Subjective Interval history: Pt seen and examined this morning. AFVSS. No acute events overnight. On T-piece with FiO2 28. Patient very upset this morning. She had an episode of urinary incontinence this AM because she couldn't get help to go to the bathroom on time. She feels extremely down and depressed. She cries and states, "Just put me to sleep. I don't want to live like this anymore." She denies any current pain but feels frustrated that her J-tube is clogged and she's not getting her tube feeds. She is also upset about having to breath through a trach. Yesterday AM, GI was consulted for the J-tube clog but unfortunately at the end of the day I was informed I would need to consult IR for this. They have been consulted yesterday and this was discussed with RN. Physical Exam Vital signs: Vital Signs 03/24/18 12:00 03/24/18 15:33 03/24/18 16:00 Temperature 99.5 F 98.7 F Pulse Rate 66 54 L Respiratory Rate 14 12 12 Blood Pressure 98/50 L 102/64 Pulse Oximetry 97 99 03/24/18 20:00 03/24/18 20:15 03/25/18 00:00 Temperature 98.8 F 98.4 F Pulse Rate 64 69 Respiratory Rate 16 16 Blood Pressure 92/47 L 100/51 L Pulse Oximetry 96 97 97 03/25/18 00:09 03/25/18 04:00 03/25/18 08:00 Temperature 98.7 F 99 F Pulse Rate 63 60 Respiratory Rate 16 12 Blood Pressure 99/56 L 99/48 L Pulse Oximetry 97 98 Intake & Output 03/24/18 03/25/18 03/25/18 18:59 06:59 18:59 Intake Total 0 / 0 816 / 816 Output Total 350 / 350 Balance 0 / 0 466 / 466 Weight 61.4 kg Intake: Oral 0 / 0 Tube Feeding 0 / 0 0 / 0 Other 816 / 816 Output: Gastric Drainage 350 / 350 Pre-Hospital Gastrojejunostomy 350 / 350 Tube Other: # Voids 3 2 # Incontinent Voids 0 Date of Last Bowel Movement 03/22/18 03/24/18 03/24/18 # Bowel Movements 1 Narrative: GENERAL: Thin elderly female with a Trach in place. She is teary and upset. SKIN: Warm and dry. HEENT: AT/NC. Pupils equal and round. MMM. NECK: Tracheostomy in place with sutures. HEART: RRR no m/r/g/. LUNGS: Lung sounds clear with no wheezing. ABDOMEN: G/J tube in place. No surrounding erythema or drainage. J-tube clogged. +BS, soft, NT, ND. EXTREMITIES: No LE edema. Diminished pedal pulses. Calves with no tenderness. NEURO: Awake and alert. MAEW. PSYCH: Depressed mood. - Urinary Catheter Management Female External Cath placed during this visit: no Indwelling Urethral Catheter Cath placed during this visit: yes, but has since been removed by the nurse Reason for continuing: Hourly intake/output Insertion date: 03/06/18 Insertion time: 18:00 Removal date: 03/10/18 Removal time: 17:00 Results - Labs CBC & Chem 7: 03/25/18 07:03 03/25/18 07:03 Laboratory Results - last 24 hr 03/24/18 03/24/18 03/24/18 09:47 09:47 12:55 WBC 4.6 RBC 2.65 L Hgb 7.6 L Hct 23.2 L MCV 87.3 MCH 28.8 MCHC 33.0 RDW 20.3 H Plt Count 120 L D MPV 9.9 Sodium 139 Potassium 3.6 Chloride 105 Carbon Dioxide 23.9 Anion Gap 10 BUN 31 H Creatinine 1.09 H Estimated GFR 49 L POC Glucose 93 Random Glucose 84 Calcium 7.8 L 03/24/18 03/25/18 03/25/18 18:31 00:21 05:07 WBC RBC Hgb Hct MCV MCH MCHC RDW Plt Count MPV Sodium Potassium Chloride Carbon Dioxide Anion Gap BUN Creatinine Estimated GFR POC Glucose 99 107 94 Random Glucose Calcium 03/25/18 03/25/18 07:03 07:03 WBC 3.8 L RBC 2.50 L Hgb 7.3 L Hct 22.0 L MCV 87.7 MCH 29.2 MCHC 33.3 RDW 19.9 H Plt Count 79 L D MPV 10.5 Sodium 141 Potassium 3.5 Chloride 106 Carbon Dioxide 26.4 Anion Gap 9 BUN 26 H Creatinine 1.05 H Estimated GFR 52 L POC Glucose Random Glucose 108 H Calcium 8.0 L - Imaging Impressions Chest X-Ray 03/25/18 00:00 CONCLUSION: Stable appearance of the chest. Assessment and Plan - Assessment (1) Acute adjustment disorder with depressed mood Code(s): F43.21 - Adjustment disorder with depressed mood Status: Acute (2) Dysphasia Code(s): R47.02 - Dysphasia Status: Acute (3) Respiratory failure Code(s): J96.90 - Respiratory failure, unspecified, unspecified whether with hypoxia or hypercapnia Status: Acute (4) Protein-calorie malnutrition, severe Code(s): E43 - Unspecified severe protein-calorie malnutrition Status: Chronic (5) Laryngeal squamous cell carcinoma Code(s): C32.9 - Malignant neoplasm of larynx, unspecified Status: Acute (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 1. Respiratory failure - Patient with history of supraglottic laryngeal cancer s/p radiation and chemo resulting in radiation-induced laryngeal scarring and recurrent aspiration - Presented on 03/06 with respiratory distress and saturations in the 50s, intubated emergently by ED physician - Sputum culture 03/08 growing MRSA - S/P treatment for aspiration PNA with Cefepime, Flagyl, and Vancomycin - S/P tracheostomy 03/11 with general surgery - Pulmonology following for trach care - Bronchodilators - On T-piece now with FiO2 28 - Remove sutures 2. Pneumonia - CXR this AM showing stable appearance of the chest with trach tube and left lower lobe airspace disease - Remains afebrile - Continue Levaquin - Supplemental O2 3. Anemia - Pt with dark output in G-tube noted on 03/21. GI was notified and patient underwent EGD showing radiation telangiectasias in the proximal esophagus, esophageal stricture, inflammatory distal esophageal polyp, normal G-tube placement, and no evidence of blood anywhere in the upper GIT - Stool Hemoccult negative - H&H slowly trending down (Hb 7.3 this AM from 7.6 and 8.3 the prior days) - Iron studies with a mixed picture - Normal B12 and folate - Monitor H&H and signs of hemodynamic instability - Transfuse if Hb<7.0 4. Thrombocytopenia - Platelets slowly trending down - Down to 79 this AM - Hold heparin - Follow CBC - No signs of active bleeding 5. Failure to thrive, protein energy malnutrition - Patient with severe pharyngeal dysphagia, esophageal stricture - G/J tube in place flush with 60 cc free water every 8 hours and Vital 1.5 at 55/hr per nutrition recs - Unfortunately, J-tube is clogged. IR consulted - G-tube to gravity, reverse Trendelenburg while in bed - Providing IV fluids with D5W-NS at 84 ml/hr given history of CHF 5. Chronic systolic heart failure - 2D cho 02/23 showing EF 35% with anterior septal hypokinesis and biatrial dilation - Patient euvolemic on exam - Pt would benefit from an SNEHA-I or ARB as well as spironolactone but BPs have been borderline hypotensive so will hold off for now 6. MRSA/Caitlyn tropicalis UTI - S/P treatment with vancomycin, cefepime, and Diflucan 7. Hypothyroidism - Continue home Levothyroxine 8. Adjustment disorder with depression - Continue Lexapro - Added Wellbutrin 75 mg BID 9. Coccygeal wound - Wound care following, noted new skin tear to left buttock on 03/25 - Calazime BID and PRN for skin tear - Ultrasorb underpad for moisture - Strict Q2H turns from left to right sides only with limited time spent on back for therapies only - Obtain and place patient on Airapy low air loss mattress - Apply OptiFoam adhesive to coccyx wound Q3D and PRN for soiling or dislodgement. 10. GERD, h/o Barretts - Continue PPI DVT prophylaxis: SCDs, holding heparin for anemia and thrombocytopenia Patient with multiple comorbidities as described above. She is staying that she no longer wants to go on. Will d/w son and consult palliative care to come see her Discussed Condition With: Patient, RN Will call son to inform Discharge Planning: Patient will need rehab on discharge. Case management assisting with SNF placement, [facility] following Son, ICU PA, requests regular updates. Hoping for acceptance to [facility] Consulted rehab MD for eval Palliative care now consulted to assess end of life goals (3) Respiratory failure Qualifiers: Chronicity: acute Respiratory failure complication: hypoxia Qualified Code(s ): J96.01 - Acute respiratory failure with hypoxia
[2018-03-25] MEDS: levoFLOXacin Liq 25 MG/ML 100 ML Bottle PO SCH (10:59)
[2018-03-25] MEDS: Heparin - SQ 10,000 UNITS/ML Vial SQ SCH (11:01)
--- NOTE | 2018-03-25 12:20 | P.CONPAL ---
Consult Service: Palliative Care Requesting Physician: Lina Sanders Reason for Consult: a. To assist with evaluation and management of symptoms including:dyspnea, dysphagia, physical deconditioning b. To assist medical decision maker(s) with: better understanding of current medical conditions; weighing benefits/burdens of medical treatment options; making medical treatment decisions. Primary Care Provider: No Primary Care Physician History of Present Illness History of Present Illness: Ms. 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 Patient was brought to the [facility] ER by EMS on 03/06/18 due to respiratory failure. Her O2 saturation was in the 50s on room air and she was intubated in the field prior to arrival to the ER. EMS reported that they noted copious amount of secretions post intubation. 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 Hooper and Dr. Pineda. Follow up imaging (05/2015, 09/2015) with negative residual disease. Patient was recently admitted in January 2018 and was treated for anemia , dysphagia, aspiration pneumonia, failure to thrive and required intubation. During that hospitalization patient underwent laparoscopic GJ tube placement after she failed modified barium swallow. Patient was also seen by ENT and she underwent laryngoscopy that showed findings consistent with radiation-induced scarring/stricture and no evidence of disease recurrence. Patient has a history of esophageal dilatation performed endoscopic currently in June [address] Aly. Patient was discharged to a long-term on 03/03/18. ER course: * Vital signs: Temperature 98F, pulse 82, blood pressure 98/42, O2 saturation 100%. * WBC 14.4, hemoglobin 8.3, hematocrit 23.3, platelet count 283, PT 11.1, INR 1.1, APTT 24.7, sodium 135, potassium 4.9, BUN/creatinine 46/1.0, lactic acid 1.1, calcium 7.1, AST 29, ALT 28, troponin 0 0.06, total protein 4.8, albumin 1.6 * Chest x-ray revealed ETT in good position, interval development of non- consolidative airspace opacities in the central lungs bilaterally suggesting pulmonary edema and stable left lower lobe consolidation. * EKG showed sinus rhythm. * Right femoral central line placed, Levophed infusion started for hypotension. * Patient admitted for further evaluation and treatment under the care of critical care management physician Pulmonology Dr. Pace consulted on 03/07/18 for evaluation and management of respiratory failure and pneumonia, recommended spontaneous breathing trials, medical extubation and ENT consultation to evaluate for possible tracheostomy. GI consulted on 03/07/18 to evaluate and manage patient with dysphagia, recommended endoscopic evaluation and/or dilatation or strictures. GI feels dilatation may not prevent patient from having aspiration pneumonitis. ENT Dr. Kunz consulted on 03/07/18 to evaluate patient for tracheotomy. Surgery Dr. Kraus consulted on 03/10/2018 for evaluation and management of acute respiratory failure and need for tracheostomy. Patient was not able to be medically extubated and on 03/11/18 she underwent percutaneous tracheostomy with bronchoscopy. On 03/19/18 patient underwent esophagogastroscopy with wire insertion/esophageal dilatation. Patient was weaned off the ventilator to T piece on 03/22/18. Wound care consulted on 03/24/18 for evaluation of an open area to coccyx. On 03/25/[address] Sanders that she does not want to go on. Palliative care consulted to assist with symptom management and establish goals of care. Patient seen and examined in her room. Patient is on droplet isolation. She is in bed, awake, alert, with a tracheostomy and oriented to self, place and situation. Patient communicates by mouthing words and she can also write legibly on paper. Patient denies pain and discomfort at this time. Introduced palliative care and its role in symptom management and establishment of goals of care. Obtained some of patient`s psychosocial history and medical history. 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 Patient mentions that she does have advance directives and her son Quinton Whitten who is a Physician automobile mechanic assistant is her Durable Power of Director Clinical Information Services including Healthcare. Addressed code status, discussed CPR, benefits, complications and limitations, patient was hesitant to answer and then she said that she wants to be a DNR though she stated that her son Quinton would not agree with her. She requested that at this time she wants to stay as full code, since her son Quinton has worked hard for her to be where she is now. Patient also mentioned that "she is tired of all this". Explored what she meant and she states that she is tired of being sick and being in the hospital, she would like to go home instead of rehabilitation. Expressed concern that she may not be able to live by herself after prolonged hospitalization and a new tracheostomy with a PEG tube. Patient verbalized understanding and stated that she cannot afford to have a caregiver. Asked patient is she discusses her wishes with her son and she mentioned that,"Quinton knows, i tell him what i want but he wants me to keep going". Introduced hospice philosophy and benefits and patient mentioned that she is not ready for hospice yet, she just wants to go home. Patient states that she does not want to stay at a alf facility intermediate card tender. After discussing benefits of rehabilitation especially if she does well, patient now amenable to being discharged to a SNF only for a short period of time. Expressed concern that patient may not progress as fast as she wants due to prolonged hospitalization, and physical deconditioning. Patient did not want her son Quinton contacted by Palliative care. Function/Cognitive Trajectory: Prior to hospitalization in January,-Patient lived at home by herself and she was independent of all her ADLs. Patient has had prolonged hospitalization requiring intubation, GJ tube placement, and recently tracheostomy placement. Patient is able to communicate her needs by mouthing words and writing. Patient states that she has lost significant amount of weight- unable to quantify. Her only source of nutrition if Tube feeds at this time. Review of Systems Constitutional: Reports weakness, Reports weight loss, Denies fever(s) Eyes: Denies double vision, Denies dry eyes, Denies sensitivity to light Ears, Nose, Mouth, and Throat: Reports difficulty swallowing, Denies abnormal hearing, Denies hearing loss, Denies nasal discharge, Denies pain with swallowing, Denies tongue swelling Cardiovascular: Reports shortness of breath, Denies chest pain, Denies generalized swelling, Denies irregular heart rhythm Respiratory: Reports chest congestion, Reports cough, Reports shortness of breath, Denies coughing up blood, Denies wheezing Gastrointestinal: Reports difficulty swallowing, Denies abdominal pain, Denies incontinent of stools, Denies nausea, Denies pain with swallowing, Denies vomiting Genitourinary: Denies difficulty starting urination, Denies painful urination, Denies urinary incontinence Musculoskeletal: Reports decreased muscle mass, Denies deformity, Denies tingling Skin/Breast: Denies itching, Denies rash, Denies unusual bruising Neurologic: Denies abnormal hearing, Denies confusion, Denies localized weakness Psychiatric: Denies anxiety, Denies confusion, Denies hearing things others do not hear Endocrine: Denies increased urination, Denies rapid, pounding, or irregular heartbeat Hematologic/Lymphatic: Denies easy bleeding PMFSH - History History Provided By: Patient, Medical Record, Law Enforcement - Medical History Medical History: Medical History (Last Updated 03/25/18 @ 12:42 by Kali Pemberton) Arthritis Barretts esophagus GERD (gastroesophageal reflux disease) Hypothyroidism 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 - Surgical History Surgical History: Surgical History (Last Updated 03/25/18 @ 13:19 by Kali Pemberton) History of colonoscopy History of oral surgery History of esophageal dilatation (Resolved) History of cholecystectomy History of esophagogastroduodenoscopy (EGD) History of hernia repair History of tonsillectomy and adenoidectomy - Family History Family History: Family History (Last Reviewed 03/20/18 @ 10:02 by Ioana Schuster) Mother Breast cancer Father Heart problem - Tobacco History Second Hand Smoke Exposure: No Smoking Status: Former smoker (Prior smoker for over 25 years) Tobacco Type: Cigarettes years: 30 - Alcohol History How Often Do You Have a Drink Containing Alcohol: Unable to Obtain - Substance Use History Substance History: No History of Abuse - Immunization History Tetanus Immunization: Unsure Hx Influenza Vaccine This Season: Unable to Assess Medications and Allergies Active Medications: Active Medications Acetaminophen (Tylenol Liq) 650 mg G-TUBE Q6H PRN PRN Reason: FEVER Last Admin: 03/21/18 18:19 Dose: 650 mg Al Hydroxide/Mg Hydroxide (Milk Of Magnesia Liq) 30 ml PO Q12H PRN PRN Reason: Mild Constipation Albuterol (Duoneb Neb (Prn)) 1 ampul NEB Q2HR NEB PRN PRN Reason: DYSPNEA Albuterol (Albuterol Neb (Prn)) 2.5 mg NEB Q2HR NEB PRN PRN Reason: SHORTNESS OF BREATH/WHEEZING Last Admin: 03/21/18 19:22 Dose: 2.5 mg Artificial Tears (Genteal Severe Dry Eye Relief 0.3% Opth Gel) 1 drops EACH EYE Q8H [facility] Last Admin: 03/25/18 08:33 Dose: 1 drops Ascorbic Acid (Vitamin C) 500 mg G-TUBE BID [facility] Last Admin: 03/25/18 08:35 Dose: Not Given Bisacodyl (Dulcolax Supp) 10 mg RECTAL DAILY PRN PRN Reason: SEVERE CONSITIPATION Bupropion HCl (Wellbutrin) 75 mg PO BID [facility] Last Admin: 03/25/18 08:36 Dose: Not Given Cetirizine HCl (Zyrtec) 10 mg PO HS [facility] Last Admin: 03/24/18 20:52 Dose: Not Given Chlorhexidine Gluconate (Peridex 0.12% Oral Kit) 15 ml OROPHARYNG BID@0800, 2000 [facility] Last Admin: 03/25/18 08:33 Dose: 15 ml Dextrose (D50w Vial) 50 ml IV.PUSH UNSCH PRN PRN Reason: PER HYPOGLYCEMIA PROTOCOL Escitalopram Oxalate (Lexapro) 20 mg G-TUBE DAILY [facility] Last Admin: 03/25/18 08:33 Dose: Not Given Glucagon (Glucagon Inj) 1 mg OTHER PRN PRN PRN Reason: for Hypoglycemia Protocol Glycopyrrolate (Robinul Inj) 0.4 mg IV.PUSH Q8H PRN PRN Reason: thick secretions Heparin Sodium (Porcine) (Heparin Inj) 5,000 units SQ Q12HR [facility] Last Admin: 03/25/18 11:01 Dose: Not Given Hyoscyamine (Levsin Liq) 0.125 mg SL Q4H PRN PRN Reason: SECRETIONS Last Admin: 03/21/18 09:00 Dose: 0.125 mg Dextrose/Sodium Chloride (D5w/Normal Saline Inj) 1,000 mls @ 84 mls/hr IV.CONT .[id number] [facility] Last Admin: 03/24/18 18:38 Dose: 84 mls/hr Insulin Aspart (Novolog Insulin Correctional Sugar Inj) 0 unit SQ Q6HR [facility]; Protocol Last Admin: 03/25/18 00:24 Dose: Not Given Lactulose (Lactulose Liq) 30 ml PO BID [facility] Last Admin: 03/25/18 08:33 Dose: Not Given Lactulose (Lactulose Liq) 30 ml PO DAILY PRN PRN Reason: SEVERE CONSITIPATION Levofloxacin (Levaquin) 250 mg PO DAILY@1100 [facility] Last Admin: 03/25/18 10:59 Dose: Not Given Levothyroxine Sodium (Synthroid) 100 mcg NG/OG DAILY@0600 [facility] Last Admin: 03/24/18 10:30 Dose: Not Given Morphine Sulfate (Morphine Inj) 2 mg IV.PUSH Q4H PRN PRN Reason: PAIN SCALE 1 TO 10 Last Admin: 03/24/18 14:38 Dose: 2 mg Multivitamins (Theragran) 1 tab NG/OG DAILY [facility] Last Admin: 03/25/18 08:35 Dose: Not Given Mupirocin (Bactroban 2% Nasal Oint) 1 applicatio EACH NARE BID [facility] Last Admin: 03/25/18 08:33 Dose: 1 applicatio Ondansetron HCl (Zofran Odt) 4 mg SL Q6H PRN PRN Reason: NAUSEA Oxycodone HCl (Roxicodone Intensol Liq) 5 mg G-TUBE Q4H PRN PRN Reason: PAIN 6-10 Last Admin: 03/23/18 21:49 Dose: 5 mg Pantoprazole Sodium (Protonix Inj) 40 mg IV.PUSH Q12H [facility] Last Admin: 03/25/18 02:01 Dose: 40 mg Polyethylene Glycol (Miralax) 17 gm PO BID [facility] Last Admin: 03/25/18 08:34 Dose: Not Given Potassium Bicarb/Potassium Chloride (K-Lyte Cl Eff) 25 meq J-TUBE DAILY [facility] Last Admin: 03/25/18 08:33 Dose: Not Given Senna/Docusate Sodium (Emmie-Colace) 1 tab PO BID [facility] Last Admin: 03/25/18 08:34 Dose: Not Given Sennosides (Senokot) 17.2 mg PO Q12H PRN PRN Reason: Moderate Constipation Sodium Chloride (Ns Flush) 2 ml IV.FLUSH BID [facility] Last Admin: 03/25/18 08:34 Dose: 2 ml Sodium Chloride (Ns Flush) 2 ml IV.FLUSH PRN PRN PRN Reason: FLUSH AFTER USING IV ACCESS Last Admin: 03/23/18 21:52 Dose: 2 ml Sterile Water (Free Water) 60 ml J-TUBE Q8HR [facility] Last Admin: 03/25/18 00:24 Dose: Not Given Zinc Sulfate (Zinc-220) 220 mg NG/OG DAILY [facility] Last Admin: 03/25/18 08:36 Dose: Not Given Allergies Allergy/AdvReac Type Severity Reaction Status Date / Time epinephrine Allergy Severe TACHYCARDIA Verified 02/21/18 08:40 penicillin G Allergy Severe Hives Verified 02/21/18 08:40 peanut Allergy Intermediate ANAPHYLAXIS Verified 02/21/18 08:40 legumes Allergy Unknown Anaphylaxis Verified 03/06/18 21:48 soy Allergy Rash Verified 03/06/18 21:45 Home Medications Medication Instructions Recorded Confirmed Type cetirizine 10 mg PO HS 02/15/18 03/06/18 History escitalopram oxalate 20 mg FEEDING TUBE DAILY 02/15/18 03/06/18 History levothyroxine 100 mcg FEEDING TUBE DAILY 02/15/18 03/06/18 History omeprazole 20 mg PO DAILY 02/15/18 03/06/18 History ascorbic acid (vitamin C) 500 mg FEEDING TUBE BID 03/06/18 03/06/18 History multivitamin [Daily Multi-Vitamin] 1 tab FEEDING TUBE DAILY 03/06/18 03/06/18 History prednisone 20 mg FEEDING TUBE DAILY 03/06/18 03/06/18 History zinc 50 mg FEEDING TUBE DAILY 03/06/18 03/06/18 History Advance Directives Living Will: Yes Health Care Surrogate Name and Number: Fish Alcantara [phone] Power of Director Clinical Information Services: Yes (Not made available- Patient states that her son Fish Alcantara is her DPOA) Power of Director Clinical Information Services Relationship to Patient: Children Ethical and Legal Issues: None identified at this time Physical Exam Vital Signs: Vital Signs - 24 hr 03/24/18 15:33 03/24/18 16:00 03/24/18 20:00 Temperature 98.7 F 98.8 F Pulse Rate 54 L 64 Respiratory Rate 12 12 16 Blood Pressure 102/64 92/47 L Pulse Oximetry 99 96 03/24/18 20:15 03/25/18 00:00 03/25/18 00:09 Temperature 98.4 F Pulse Rate 69 Respiratory Rate 16 Blood Pressure 100/51 L Pulse Oximetry 97 97 97 03/25/18 04:00 03/25/18 08:00 03/25/18 10:18 Temperature 98.7 F 99 F Pulse Rate 63 60 Respiratory Rate 16 12 Blood Pressure 99/56 L 99/48 L Pulse Oximetry 98 98 03/25/18 10:58 03/25/18 11:19 Temperature 97.4 F L Pulse Rate 57 L Respiratory Rate 12 14 Blood Pressure 104/51 L Pulse Oximetry 98 I&O: Intake & Output 03/23/18 03/24/18 03/25/18 03/26/18 06:59 06:59 06:59 06:59 Intake Total 580 / 580 1606 / 1606 816 / 816 Output Total 1250 / 1250 2024 350 / 350 Balance -670 / -670 -419 / -419 466 / 466 Weight 166 kg 166 kg 61.4 kg Physical Exam: CONSTITUTIONAL/GENERAL: This is an thin elderly patient, with muscle wasting, in no apparent distress. TUBES/LINES/DRAINS: Tracheostomy, PIV, GJ tube SKIN: No jaundice, rashes, or lesions. Ecchymoses on upper extremities. No wounds seen anteriorly. Normothermic HEAD: Atraumatic. Normocephalic. EYES: Pupils equal and round and reactive. No scleral icterus. No injection or drainage. Fundi not examined. ENT: Hearing grossly normal. Nose without bleeding or purulent drainage. Tracheostomy midline. Moist oral mucosa NECK: Trachea midline. Supple, nontender. CARDIOVASCULAR: Regular rate and rhythm without murmurs, gallops, or rubs. No JVD. Peripheral pulses symmetric. RESPIRATORY/CHEST: Symmetric, unlabored respirations. Rhonchi to auscultation no wheezes, rales. GASTROINTESTINAL: Abdomen soft, non-tender, nondistended. No guarding. Bowel sounds present. GENITOURINARY: Without palpable bladder distension. Orellana catheter in place. MUSCULOSKELETAL: Extremities without clubbing, cyanosis, or edema. No joint tenderness or effusion noted. No calf tenderness. No mottling or clubbing. NEUROLOGICAL: Awake and alert, oriented to self, place and situation. Communicates by writing and mouthing words motor and sensory grossly within normal limits. Follows commands. Cognitively sharp. Moves all extremities. PSYCHIATRIC: No obvious anxiety/depression. no apparent hallucinations or other psychotic thought process. Diagnostic Tests Laboratory: Laboratory Results - last 72 hr 03/21/18 03/22/18 03/23/18 11:04 17:25 00:01 WBC RBC Hgb Hct MCV MCH MCHC RDW Plt Count MPV Sodium Potassium Chloride Carbon Dioxide Anion Gap BUN Creatinine Estimated GFR POC Glucose 169 H 140 H Random Glucose Calcium MTS Gel Crossmatch See Detail 03/23/18 03/23/18 03/23/18 04:10 04:10 06:01 WBC 4.9 RBC 2.81 L Hgb 8.3 L Hct 24.7 L MCV 87.7 MCH 29.5 MCHC 33.7 RDW 20.7 H Plt Count 83 L MPV 9.7 Sodium 137 Potassium 3.4 L Chloride 103 Carbon Dioxide 24.9 Anion Gap 9 BUN 29 H Creatinine 1.19 H Estimated GFR 45 L POC Glucose 101 Random Glucose 99 Calcium 7.7 L MTS Gel Crossmatch 03/23/18 03/23/18 03/24/18 12:04 16:53 00:40 WBC RBC Hgb Hct MCV MCH MCHC RDW Plt Count MPV Sodium Potassium Chloride Carbon Dioxide Anion Gap BUN Creatinine Estimated GFR POC Glucose 125 H 131 H 138 H Random Glucose Calcium MTS Gel Crossmatch 03/24/18 03/24/18 03/24/18 09:47 09:47 12:55 WBC 4.6 RBC 2.65 L Hgb 7.6 L Hct 23.2 L MCV 87.3 MCH 28.8 MCHC 33.0 RDW 20.3 H Plt Count 120 L D MPV 9.9 Sodium 139 Potassium 3.6 Chloride 105 Carbon Dioxide 23.9 Anion Gap 10 BUN 31 H Creatinine 1.09 H Estimated GFR 49 L POC Glucose 93 Random Glucose 84 Calcium 7.8 L MTS Gel Crossmatch 03/24/18 03/25/18 03/25/18 18:31 00:21 05:07 WBC RBC Hgb Hct MCV MCH MCHC RDW Plt Count MPV Sodium Potassium Chloride Carbon Dioxide Anion Gap BUN Creatinine Estimated GFR POC Glucose 99 107 94 Random Glucose Calcium MTS Gel Crossmatch 03/25/18 03/25/18 03/25/18 07:03 07:03 11:24 WBC 3.8 L RBC 2.50 L Hgb 7.3 L Hct 22.0 L MCV 87.7 MCH 29.2 MCHC 33.3 RDW 19.9 H Plt Count 79 L D MPV 10.5 Sodium 141 Potassium 3.5 Chloride 106 Carbon Dioxide 26.4 Anion Gap 9 BUN 26 H Creatinine 1.05 H Estimated GFR 52 L POC Glucose 124 H Random Glucose 108 H Calcium 8.0 L MTS Gel Crossmatch Result Diagrams: 03/26/18 06:28 03/26/18 06:28 Imaging: Abdomen X-Ray 03/12/18 00:00 CONCLUSION: Unremarkable study. Abdomen/Pelvis CT 03/15/18 00:00 CONCLUSION: 1. Small pleural effusions with compressive atelectasis. 2. Gastrostomy tube evident within normal bowel gas pattern by CT. The tip of the gastrostomy tube is in the antrum of the stomach. Chest X-Ray 03/25/18 00:00 CONCLUSION: Stable appearance of the chest. Procedures: 03/06/18-endotracheal intubation in the field 03/06/18-right femoral central line 03/11/18-percutaneous tracheostomy with bronchoscopy 03/19/18-esophagogastroscopy with wire insertion/esophageal dilatation. Patient/Family Conference Family Conference Location: Bedside Issues Discussed: * Palliative care role, purpose, approach * Additional medical, psychosocial, and spiritual history * Patients general health, functional status, and cognitive changes in the months leading up to the current hospitalization * Patient/family understanding of the current medical problems * Patient/family understanding of prognosis * Patients goals of care as best understood from advance directives and/or conversations and/or values * Current medical treatment options and benefits/burdens of those options * Likely scenarios comparing ongoing aggressive care with a transition to comfort measures only * Questions answered to the best of my ability * Palliative care contact information provided Assessment and Plan - Disease Oriented Problem List (1) History of laryngeal cancer (2) Respiratory failure with hypoxia (3) Protein-calorie malnutrition, severe (4) Aspiration pneumonia (5) Status post radiation therapy (6) Supraglottic stenosis (7) Barretts esophagus (8) Hypothyroidism - Symptom Scale (1) Dysphasia 0-10 Scale: Unable to quantify Comment: History of supra glottic squamous cell carcinoma of the larynx and radiation induced stricture. 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 Patient now has a tracheostomy. (3) Physical deconditioning 0-10 Scale: Unable to quantify (Progressive) Pertinent Non-Medical Issues: Psychosocial: Patient is originally from [place]. She moved to [place] in 1978. Patient was once and is . Patient has 3 sons and 4 grandchildren. 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 Spiritual: Patient is Hindu Legal: Patient states that she has a DURABLE POWER OF CARBONATION TESTER including healthcare Ethical issues impacting care: None identified at this time Important Contacts: Son-Alireza Whitten [phone] Prognosis: Ms. 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 Patient was brought to the [facility] by EMS on 03/06/18 due to respiratory failure. Her O2 saturation was in the 50s on room air and she was intubated in the field prior to arrival to the ER. During this hospitalization patient underwent tracheostomy placement is well is esophageal dilatation. Given patient's comorbidities, multiple hospitalizations , she remains at risk for further complications, deterioration and decline. Code Status: Full Code Plan: PLAN: Legal decision maker: Patient is alert, oriented to self, place and situation. She appears to have insight regarding her medical condition. In the event that she is incapacitated patient stated that her son Fish Alcantara is her Durable Power of Director Clinical Information Services including Healthcare. Goals: Aggressive. Patient expressed that she would like to be a DNR but her son will not agree with her and she would like to stay as full code at this time. She expressed that she is tired of being in the hospital for a long time and she would like to go home. Patient states that at this time she is not interested in hospice, all she wants is to be able to go back home. After discussing at length, she is amenable to going to rehab for a short time and then go home. 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 Patient was intubated on the field when she was noted to be in respiratory failure. Patient underwent tracheostomy placement and esophageal dilatation this hospitalization. Patient is currently on a T- piece FiO2 28% at this time. Recent chest x-ray on 03/25/18 showing airspace disease greater on left lower lobe than the right lower lobe. 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 Patient is failed barium swallow eval. Currently has a GJ tube with tube feedings. Recently underwent esophageal dilatation. Patient noted to be eating ice during visit. Recommending consulting speech therapy * Physical deconditioning: Progressive. Patient has had prolonged hospitalization. She has undergone tracheostomy and GJ tube placement during these hospitalizations. Patient reports unintentional significant weight loss. Physical therapy following, recommending PT at rehab Palliative care will continue to follow the patient during hospital course as condition evolves, to assist patient/decision-maker with understanding of their medical conditions, weighing benefits/burdens of treatment options, for clarification of goals of treatment. Additionally will assist with any symptoms of palliative concern Appreciation Thank you for the opportunity to participate in the care of Ana M Henson. Attestation Attestation: To help prompt me to consider important information that might be impacting today's encounter and assessment, information from prior notes written by myself or my colleagues may have been "brought forward" into today's note. My signature on this note, however, is an attestation that I personally performed the exam, history, and/or decision-making noted today, and, unless otherwise indicated, the interactions with patient, family, and staff as well as the review of records all occurred today. I also attest that the listed assessment and stated plan reflect my best clinical judgment today based on the combination of historical information, prior notes, and today's exam/ interactions. When time spent is documented, it refers only to time spent today by the signer, or if indicated, combined time spent today by collaborating physician/nurse practitioner.
--- NOTE | 2018-03-25 12:55 | P.PN ---
Subjective Interval history: She is better.On a T Bar and FIo2 28 %. Trach sutures need to come out. Physical Exam Vital signs: Vital Signs 03/24/18 15:33 03/24/18 16:00 03/24/18 20:00 Temperature 98.7 F 98.8 F Pulse Rate 54 L 64 Respiratory Rate 12 12 16 Blood Pressure 102/64 92/47 L Pulse Oximetry 99 96 03/24/18 20:15 03/25/18 00:00 03/25/18 00:09 Temperature 98.4 F Pulse Rate 69 Respiratory Rate 16 Blood Pressure 100/51 L Pulse Oximetry 97 97 97 03/25/18 04:00 03/25/18 08:00 03/25/18 10:18 Temperature 98.7 F 99 F Pulse Rate 63 60 Respiratory Rate 16 12 Blood Pressure 99/56 L 99/48 L Pulse Oximetry 98 98 03/25/18 10:58 03/25/18 11:19 Temperature 97.4 F L Pulse Rate 57 L Respiratory Rate 12 14 Blood Pressure 104/51 L Pulse Oximetry 98 Intake & Output 03/24/18 03/25/18 03/25/18 18:59 06:59 18:59 Intake Total 0 / 0 816 / 816 Output Total 350 / 350 Balance 0 / 0 466 / 466 Weight 61.4 kg Intake: Oral 0 / 0 Tube Feeding 0 / 0 0 / 0 Other 816 / 816 Output: Gastric Drainage 350 / 350 Pre-Hospital Gastrojejunostomy 350 / 350 Tube Other: # Voids 3 2 # Incontinent Voids 0 Date of Last Bowel Movement 03/22/18 03/24/18 03/24/18 # Bowel Movements 1 Narrative: GENERAL: Thin elderly female alert with a Trach in place. SKIN: Warm and dry. HEENT: AT/NC. Pupils equal and round. MMM. NECK: Tracheostomy in place with sutures. HEART: RRR no m/r/g/. LUNGS: Lung sounds clear with distant breath sounds, no wheezing. ABDOMEN: G/J tube in place. No surrounding erythema or drainage. J-tube clogged. +BS, soft, NT, ND. EXTREMITIES: No LE edema. Diminished pedal pulses. Calves with no tenderness. NEURO: Awake and alert. anxious and depressed PSYCH: Depressed mood. - Urinary Catheter Management Female External Cath placed during this visit: no Indwelling Urethral Catheter Cath placed during this visit: yes, but has since been removed by the nurse Reason for continuing: Hourly intake/output Insertion date: 03/06/18 Insertion time: 18:00 Removal date: 03/10/18 Removal time: 17:00 Results - Labs CBC & Chem 7: 03/25/18 07:03 03/25/18 07:03 Laboratory Results - last 24 hr 03/24/18 03/24/18 03/25/18 12:55 18:31 00:21 WBC RBC Hgb Hct MCV MCH MCHC RDW Plt Count MPV Sodium Potassium Chloride Carbon Dioxide Anion Gap BUN Creatinine Estimated GFR POC Glucose 93 99 107 Random Glucose Calcium 03/25/18 03/25/18 03/25/18 05:07 07:03 07:03 WBC 3.8 L RBC 2.50 L Hgb 7.3 L Hct 22.0 L MCV 87.7 MCH 29.2 MCHC 33.3 RDW 19.9 H Plt Count 79 L D MPV 10.5 Sodium 141 Potassium 3.5 Chloride 106 Carbon Dioxide 26.4 Anion Gap 9 BUN 26 H Creatinine 1.05 H Estimated GFR 52 L POC Glucose 94 Random Glucose 108 H Calcium 8.0 L 03/25/18 11:24 WBC RBC Hgb Hct MCV MCH MCHC RDW Plt Count MPV Sodium Potassium Chloride Carbon Dioxide Anion Gap BUN Creatinine Estimated GFR POC Glucose 124 H Random Glucose Calcium - Imaging Impressions Chest X-Ray 03/25/18 00:00 CONCLUSION: Stable appearance of the chest. 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 Leave on T Bar 28 % FIO2 2. Trach care and lavage PRN 3. Continue Duo nebs q6h 4. PT evaluation to help activity 5. D/C Trach sutures 6. Palliative care to see. 7. Tube feeds at 60 CC. 8. Labs in am (7) Aspiration pneumonia Qualifiers: Aspiration pneumonia type: unspecified Laterality: unspecified laterality Lung location: unspecified part of lung Qualified Code(s): J69.0 - Pneumonitis due to inhalation of food and vomit
[2018-03-25] MEDS: Morphine Inj 4 MG/ML Vial IV.PUSH PRN ×3 (13:20→22:29)
--- NOTE | 2018-03-25 19:14 | P.CONREH ---
History of Present Illness Service: Physical medicine rehabilitation Consult date: 03/25/18 Reason for Consult: Comprehensive rehabilitation evaluation Primary Care Provider: No Primary Care Physician History of Present Illness: Ana M Henson is a 73-year-old [id number] female admitted to [facility] 03/06/18 with anemia, dysphasia and failure to thrive. On 02/13/18 GJ tube was placed. On 02/22/18 she developed severe respiratory distress and was intubated. ENT performed laryngoscopy and she is noted to have radiation scarring. On 02/25/18 she was extubated. On 03/03/18 she [facility]. On 03/06/18 she was a readmitted with respiratory failure requiring intubation with O2 saturation in the 50s. On 03/11/18 she underwent trach. She is being followed by pulmonary medicine and it is on FiO2 of 20% with T- bar. Palliative care is following. She is receiving tube feedings. She has coccygeal wound which is being followed by wound care and is on a pressure relieving mattress. She has been receiving physical therapy and is min to mod assist for transfers and able to take several steps in place. Review of Systems Eyes: Denies double vision Ears, Nose, Mouth, and Throat: Reports difficulty swallowing, Denies abnormal hearing Cardiovascular: Denies chest pain Respiratory: Reports shortness of breath Gastrointestinal: Denies abdominal pain Genitourinary: Reports urinary incontinence ([place]) Musculoskeletal: Reports muscle weakness Skin/Breast: Reports wounds Neurologic: Denies tingling/numbness/burning sensations Psychiatric: Denies memory loss [facility] - History History Provided By: Patient, Medical Record, Law Enforcement - Medical History Medical History: Medical History (Last Reviewed 03/28/18 @ 08:07 by Jennie Jordan Heart Coordinator, [employer]) Arthritis Barretts esophagus GERD (gastroesophageal reflux disease) Hypothyroidism 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 - Surgical History Surgical History: Surgical History (Last Reviewed 03/27/18 @ 08:22 by Saji Gross) History of colonoscopy History of oral surgery History of esophageal dilatation (Resolved) History of cholecystectomy History of esophagogastroduodenoscopy (EGD) History of hernia repair History of tonsillectomy and adenoidectomy - Family History Family History: Family History (Last Reviewed 03/20/18 @ 10:02 by Ioana Schuster) Mother Breast cancer Father Heart problem - Tobacco History Second Hand Smoke Exposure: No Smoking Status: Former smoker (Prior smoker for over 25 years) Tobacco Type: Cigarettes years: 30 - Alcohol History How Often Do You Have a Drink Containing Alcohol: Unable to Obtain - Substance Use History Substance History: No History of Abuse - Immunization History Tetanus Immunization: Unsure Hx Influenza Vaccine This Season: Unable to Assess Medications and Allergies Active Medications: Active Medications Acetaminophen (Tylenol Liq) 650 mg G-TUBE Q6H PRN PRN Reason: FEVER Last Admin: 03/21/18 18:19 Dose: 650 mg Al Hydroxide/Mg Hydroxide (Milk Of Magnesia Liq) 30 ml PO Q12H PRN PRN Reason: Mild Constipation Albuterol (Duoneb Neb (Prn)) 1 ampul NEB Q2HR NEB PRN PRN Reason: DYSPNEA Albuterol (Albuterol Neb (Prn)) 2.5 mg NEB Q2HR NEB PRN PRN Reason: SHORTNESS OF BREATH/WHEEZING Last Admin: 03/21/18 19:22 Dose: 2.5 mg Artificial Tears (Genteal Severe Dry Eye Relief 0.3% Opth Gel) 1 drops EACH EYE Q8H [facility] Last Admin: 03/25/18 17:27 Dose: 1 drops Ascorbic Acid (Vitamin C) 500 mg G-TUBE BID [facility] Last Admin: 03/25/18 08:35 Dose: Not Given Bisacodyl (Dulcolax Supp) 10 mg RECTAL DAILY PRN PRN Reason: SEVERE CONSITIPATION Bupropion HCl (Wellbutrin) 75 mg PO BID [facility] Last Admin: 03/25/18 08:36 Dose: Not Given Cetirizine HCl (Zyrtec) 10 mg PO HS [facility] Last Admin: 03/24/18 20:52 Dose: Not Given Chlorhexidine Gluconate (Peridex 0.12% Oral Kit) 15 ml OROPHARYNG BID@0800, 2000 [facility] Last Admin: 03/25/18 08:33 Dose: 15 ml Dextrose (D50w Vial) 50 ml IV.PUSH UNSCH PRN PRN Reason: PER HYPOGLYCEMIA PROTOCOL Escitalopram Oxalate (Lexapro) 20 mg G-TUBE DAILY [facility] Last Admin: 03/25/18 08:33 Dose: Not Given Glucagon (Glucagon Inj) 1 mg OTHER PRN PRN PRN Reason: for Hypoglycemia Protocol Glycopyrrolate (Robinul Inj) 0.4 mg IV.PUSH Q8H PRN PRN Reason: thick secretions Heparin Sodium (Porcine) (Heparin Inj) 5,000 units SQ Q12HR [facility] Last Admin: 03/25/18 11:01 Dose: Not Given Hyoscyamine (Levsin Liq) 0.125 mg SL Q4H PRN PRN Reason: SECRETIONS Last Admin: 03/21/18 09:00 Dose: 0.125 mg Dextrose/Sodium Chloride (D5w/Normal Saline Inj) 1,000 mls @ 84 mls/hr IV.CONT .[id number] [facility] Last Admin: 03/24/18 18:38 Dose: 84 mls/hr Insulin Aspart (Novolog Insulin Correctional Sugar Inj) 0 unit SQ Q6HR [facility]; Protocol Last Admin: 03/25/18 00:24 Dose: Not Given Lactulose (Lactulose Liq) 30 ml PO BID [facility] Last Admin: 03/25/18 08:33 Dose: Not Given Lactulose (Lactulose Liq) 30 ml PO DAILY PRN PRN Reason: SEVERE CONSITIPATION Levofloxacin (Levaquin) 250 mg PO DAILY@1100 [facility] Last Admin: 03/25/18 10:59 Dose: Not Given Levothyroxine Sodium (Synthroid) 100 mcg NG/OG DAILY@0600 [facility] Last Admin: 03/24/18 10:30 Dose: Not Given Morphine Sulfate (Morphine Inj) 2 mg IV.PUSH Q4H PRN PRN Reason: PAIN SCALE 1 TO 10 Last Admin: 03/25/18 17:26 Dose: 2 mg Multivitamins (Theragran) 1 tab NG/OG DAILY [facility] Last Admin: 03/25/18 08:35 Dose: Not Given Mupirocin (Bactroban 2% Nasal Oint) 1 applicatio EACH NARE BID [facility] Last Admin: 03/25/18 08:33 Dose: 1 applicatio Ondansetron HCl (Zofran Odt) 4 mg SL Q6H PRN PRN Reason: NAUSEA Oxycodone HCl (Roxicodone Intensol Liq) 5 mg G-TUBE Q4H PRN PRN Reason: PAIN 6-10 Last Admin: 03/23/18 21:49 Dose: 5 mg Pantoprazole Sodium (Protonix Inj) 40 mg IV.PUSH Q12H [facility] Last Admin: 03/25/18 13:19 Dose: 40 mg Polyethylene Glycol (Miralax) 17 gm PO BID [facility] Last Admin: 03/25/18 08:34 Dose: Not Given Potassium Bicarb/Potassium Chloride (K-Lyte Cl Eff) 25 meq J-TUBE DAILY [facility] Last Admin: 03/25/18 08:33 Dose: Not Given Senna/Docusate Sodium (Emmie-Colace) 1 tab PO BID [facility] Last Admin: 03/25/18 08:34 Dose: Not Given Sennosides (Senokot) 17.2 mg PO Q12H PRN PRN Reason: Moderate Constipation Sodium Chloride (Ns Flush) 2 ml IV.FLUSH BID [facility] Last Admin: 03/25/18 08:34 Dose: 2 ml Sodium Chloride (Ns Flush) 2 ml IV.FLUSH PRN PRN PRN Reason: FLUSH AFTER USING IV ACCESS Last Admin: 03/23/18 21:52 Dose: 2 ml Sterile Water (Free Water) 60 ml J-TUBE Q8HR [facility] Last Admin: 03/25/18 00:24 Dose: Not Given Zinc Sulfate (Zinc-220) 220 mg NG/OG DAILY [facility] Last Admin: 03/25/18 08:36 Dose: Not Given Allergies Allergy/AdvReac Type Severity Reaction Status Date / Time epinephrine Allergy Severe TACHYCARDIA Verified 02/21/18 08:40 penicillin G Allergy Severe Hives Verified 02/21/18 08:40 peanut Allergy Intermediate ANAPHYLAXIS Verified 02/21/18 08:40 legumes Allergy Unknown Anaphylaxis Verified 03/06/18 21:48 soy Allergy Rash Verified 03/06/18 21:45 Home Medications Medication Instructions Recorded Confirmed Type cetirizine 10 mg PO HS 02/15/18 03/06/18 History escitalopram oxalate 20 mg FEEDING TUBE DAILY 02/15/18 03/06/18 History levothyroxine 100 mcg FEEDING TUBE DAILY 02/15/18 03/06/18 History omeprazole 20 mg PO DAILY 02/15/18 03/06/18 History ascorbic acid (vitamin C) 500 mg FEEDING TUBE BID 03/06/18 03/06/18 History multivitamin [Daily Multi-Vitamin] 1 tab FEEDING TUBE DAILY 03/06/18 03/06/18 History prednisone 20 mg FEEDING TUBE DAILY 07/19/18 07/19/18 History zinc 50 mg FEEDING TUBE DAILY 03/06/18 03/06/18 History Exam - Physical Examination Vital Signs / I&O: Vital Signs 03/24/18 20:00 03/24/18 20:15 03/25/18 00:00 Temperature 98.8 F 98.4 F Pulse Rate 64 69 Respiratory Rate 16 16 Blood Pressure 92/47 L 100/51 L Pulse Oximetry 96 97 97 03/25/18 00:09 03/25/18 04:00 03/25/18 08:00 Temperature 98.7 F 99 F Pulse Rate 63 60 Respiratory Rate 16 12 Blood Pressure 99/56 L 99/48 L Pulse Oximetry 97 98 03/25/18 10:18 03/25/18 10:58 03/25/18 11:19 Temperature 97.4 F L Pulse Rate 57 L Respiratory Rate 12 14 Blood Pressure 104/51 L Pulse Oximetry 98 98 03/25/18 15:33 03/25/18 16:00 03/25/18 16:31 Temperature 98.7 F Pulse Rate 55 L Respiratory Rate 12 12 Blood Pressure 98/65 L Pulse Oximetry 98 98 03/25/18 17:32 Temperature Pulse Rate Respiratory Rate 14 Blood Pressure Pulse Oximetry Intake & Output 03/25/18 03/25/18 03/26/18 06:59 18:59 06:59 Intake Total 816 / 816 1308 / 1308 Output Total 350 / 350 1800 / 1800 Balance 466 / 466 -492 / -492 Weight 61.4 kg Intake: Oral 0 / 0 Tube Feeding 0 / 0 300 / 300 Other 816 / 816 1008 / 1008 Output: Gastric Drainage 350 / 350 1800 / 1800 Pre-Hospital Gastrojejunostomy 350 / 350 1800 / 1800 Tube Other: Other Intake Source Saline Solution # Voids 2 2 # Incontinent Voids 0 Date of Last Bowel Movement 03/24/18 03/25/18 # Bowel Movements 1 Intake & Output 03/23/18 03/24/18 03/25/18 03/26/18 06:59 06:59 06:59 06:59 Intake Total 580 / 580 1606 / 1606 816 / 816 1308 / 1308 Output Total 1250 / 1250 2024 / 202 350 / 350 1800 / 1800 Balance -670 / -670 -419 / -419 466 / 466 -492 / -492 Weight 166 kg 166 kg 61.4 kg General: No acute distress, Other (Trach in place) Respiratory: Non-labored respirations, BS equal, Coarse breath sounds Gastrointestinal: Positive bowel sounds, Non-distended, Non-tender Date of Last Bowel Movement: 03/25/18 Cardiovascular: Normal rate, Regular rhythm Psychiatric: Cooperative - Neurologic Orientation: oriented to: Self, Situation Neurologic: Speech (Mouthing words appropriately), Other (Moves all extremities to command with grossly 4/5 strength) Sensory: Grossly intact Results - Labs CBC & Chem 7: 04/03/18 13:34 04/03/18 07:11 Labs: Laboratory Results - last 24 hr 03/25/18 03/25/18 03/25/18 00:21 05:07 07:03 WBC 3.8 L RBC 2.50 L Hgb 7.3 L Hct 22.0 L MCV 87.7 MCH 29.2 MCHC 33.3 RDW 19.9 H Plt Count 79 L D MPV 10.5 Sodium Potassium Chloride Carbon Dioxide Anion Gap BUN Creatinine Estimated GFR POC Glucose 107 94 Random Glucose Calcium 03/25/18 03/25/18 03/25/18 07:03 11:24 17:31 WBC RBC Hgb Hct MCV MCH MCHC RDW Plt Count MPV Sodium 141 Potassium 3.5 Chloride 106 Carbon Dioxide 26.4 Anion Gap 9 BUN 26 H Creatinine 1.05 H Estimated GFR 52 L POC Glucose 124 H 126 H Random Glucose 108 H Calcium 8.0 L - Imaging Impressions Chest X-Ray 03/25/18 00:00 CONCLUSION: Stable appearance of the chest. Assessment and Plan (1) Dysphagia Status: Chronic Code(s): R13.10 - Dysphagia, unspecified (2) Weakness Status: Acute Code(s): R53.1 - Weakness (3) Impaired mobility and activities of daily living Status: Acute Code(s): Z74.09 - Other reduced mobility - Plan Assessment: 1. Medical complexity including dysphagia status post GJ tube placement 02/13/18 , respiratory failure status post tracheostomy placement 03/11/18 2. 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 Rendon's esophagus 4. GERD Recommendations: 1. Continue to mobilize with physical therapy. Patient is now minimal to moderate assistance for transfers and taking several steps in place. Encourage up to seated position carefully monitoring skin and relieving pressure 2. Speech therapy to evaluate swallow 3. Occupational therapy for independence with ADLs 4. Will follow in conjunction with medical services regarding ongoing rehab needs at discharge. Anticipate patient will need inpatient care at discharge. Palliative care is following Thank you for this consult
[2018-03-26] MEDS: Oral Hygiene Kit OROPHARYNG SCH ×8 (01:39→23:58)
[2018-03-26] MEDS: Insulin NovoLOG Aspart Correctional Sugar Inj SQ SCH ×7 (01:40→23:09)
[2018-03-26] MEDS: Pantoprazole Inj 40 MG Vial IV.PUSH SCH ×2 (04:41→14:36)
[2018-03-26] MEDS: Hypromellose 0.3% Opth Gel 10 GM Bottle EACH EYE SCH ×3 (04:42→18:13)
[2018-03-26] MEDS: Dextrose 5%/NaCl 0.9% Inj 1,000 ML IV.CONT SCH ×4 (04:42→18:13)
[2018-03-26] MEDS: Morphine Inj 4 MG/ML Vial IV.PUSH PRN ×4 (04:50→22:54)
[2018-03-26] MEDS: Levothyroxine 100 MCG Tablet NG/OG SCH ×2 (06:23→14:33)
[2018-03-26 07:37] LABS: Mean Corpuscular HGB Conc 33.4 % (32.0-36.0); Mean Corpuscular Hemoglobin 29.5 pg (27.0-34.0); Mean Corpuscular Volume 88.5 fL (80.0-100.0); Mean Platelet Volume 9.7 fL (7.0-11.0); Platelet Count 68 th/mm3 (150-450); Red Blood Count 2.26 mil/mm3 (4.00-5.30); Red Cell Distribution Width 20.2 % (11.6-17.2); White Blood Count 4.4 th/mm3 (4.0-11.0)
[2018-03-26 07:52] LABS: Hemoglobin 6.7 gm/dL (11.6-15.3)
[2018-03-26 08:26] LABS: Calcium 7.2 mg/dL (8.5-10.1); Carbon Dioxide 25.6 meq/L (21.0-32.0); Potassium 3.6 meq/L (3.5-5.1)
[2018-03-26 08:40] LABS: Total Protein 4.7 g/dL (6.4-8.2)
--- NOTE | 2018-03-26 09:59 | P.PNIM ---
Subjective Interval history: Patient has no complaints at this time. Started to feel better. No active shortness of breath. Physical Exam Vital signs: Vital Signs 03/25/18 10:18 03/25/18 10:58 03/25/18 11:19 Temperature 97.4 F L Pulse Rate 57 L Respiratory Rate 12 14 Blood Pressure 104/51 L Pulse Oximetry 98 98 03/25/18 15:33 03/25/18 16:00 03/25/18 16:31 Temperature 98.7 F Pulse Rate 55 L Respiratory Rate 12 12 Blood Pressure 98/65 L Pulse Oximetry 98 98 03/25/18 17:32 03/25/18 20:00 03/26/18 00:00 Temperature 99.4 F 99.7 F H Pulse Rate 68 70 Respiratory Rate 14 22 20 Blood Pressure 91/53 L 93/46 L Pulse Oximetry 94 L 94 L 03/26/18 04:00 03/26/18 08:00 Temperature 98.7 F Pulse Rate 71 72 Respiratory Rate 16 12 Blood Pressure 91/45 L Pulse Oximetry 92 L Intake & Output 03/25/18 03/26/18 03/26/18 18:59 06:59 18:59 Intake Total 1308 / 1308 3019 / 3019 Output Total 1800 / 1800 900 / 900 Balance -492 / -492 2119 / 2119 Weight 69.7 kg Intake: IV 1000 / 1000 D5W/Normal Saline Inj 1,000 ML 1000 / 1000 @ 84 mls/hr IV.CONT .[id number] [facility] Rx#:[id number] Tube Feeding 300 / 300 1698 / 1698 Tube Irrigant 201 / 201 Water Bolus Amount 120 / 120 Other 1008 / 1008 Output: Gastric Drainage 1800 / 1800 900 / 900 Pre-Hospital Gastrojejunostomy 1800 / 1800 900 / 900 Tube Other: Other Intake Source Saline Solution # Voids 2 Date of Last Bowel Movement 03/25/18 03/25/18 03/25/18 # Bowel Movements 1 Narrative: GENERAL: Thin elderly female alert with a Trach in place. SKIN: Warm and dry.. NECK: Tracheostomy in place with sutures. HEART: RRR no m/r/g/. LUNGS: Lung sounds clear with distant breath sounds, no wheezing. ABDOMEN: G/J tube in place. No surrounding erythema or drainage. J-tube clogged. +BS, soft, NT, ND. EXTREMITIES: No LE edema. Diminished pedal pulses. Calves with no tenderness. NEURO: Awake and alert. anxious PSYCH: Depressed mood. - Urinary Catheter Management Female External Cath placed during this visit: no Indwelling Urethral Catheter Cath placed during this visit: yes, but has since been removed by the nurse Reason for continuing: Hourly intake/output Insertion date: 03/06/18 Insertion time: 18:00 Removal date: 03/10/18 Removal time: 17:00 Results - Labs CBC & Chem 7: 03/26/18 06:28 03/26/18 06:28 Laboratory Results - last 24 hr 03/25/18 03/25/18 03/26/18 11:24 17:31 06:22 WBC RBC Hgb Hct MCV MCH MCHC RDW Plt Count MPV Sodium Potassium Chloride Carbon Dioxide Anion Gap BUN Creatinine Estimated GFR POC Glucose 124 H 126 H 147 H Random Glucose Calcium Prot Corrected Calcium Total Protein 03/26/18 03/26/18 06:28 06:28 WBC 4.4 RBC 2.26 L Hgb 6.7 L* Hct 20.0 L* MCV 88.5 MCH 29.5 MCHC 33.4 RDW 20.2 H Plt Count 68 L MPV 9.7 Sodium 145 Potassium 3.6 Chloride 111 H Carbon Dioxide 25.6 Anion Gap 8 BUN 25 H Creatinine 1.06 H Estimated GFR 51 L POC Glucose Random Glucose 139 H Calcium 7.2 L* D Prot Corrected Calcium 8.5 Total Protein 4.7 L Assessment and Plan - Assessment (1) Acute adjustment disorder with depressed mood Code(s): F43.21 - Adjustment disorder with depressed mood Status: Acute (2) Dysphasia Code(s): R47.02 - Dysphasia Status: Acute (3) Respiratory failure Code(s): J96.90 - Respiratory failure, unspecified, unspecified whether with hypoxia or hypercapnia Status: Acute (4) Protein-calorie malnutrition, severe Code(s): E43 - Unspecified severe protein-calorie malnutrition Status: Chronic (5) Laryngeal squamous cell carcinoma Code(s): C32.9 - Malignant neoplasm of larynx, unspecified Status: Acute (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 1. Acute on chronic respiratory failurecurrently improving and resolved on trach with pulmonology following. - Patient with history of supraglottic laryngeal cancer s/p radiation and chemo resulting in radiation-induced laryngeal scarring and recurrent aspiration - Presented on 03/06 with respiratory distress and saturations in the 50s, intubated emergently by ED physician - Sputum culture 03/08 growing MRSA - S/P treatment for aspiration PNA with Cefepime, Flagyl, and Vancomycin - S/P tracheostomy 03/11 with general surgery - Pulmonology following for trach care - Bronchodilators - On T-piece now with FiO2 28 - Remove sutures 2. Aspiration pneumonia - CXR this AM showing stable appearance of the chest with trach tube and left lower lobe airspace disease - Remains afebrile - Continue Levaquin - Supplemental O2 3. Anemia, acute on chronic may be due to chronic kidney disease - Pt with dark output in G-tube noted on 03/21. GI was notified and patient underwent EGD showing radiation telangiectasias in the proximal esophagus, esophageal stricture, inflammatory distal esophageal polyp, normal G-tube placement, and no evidence of blood anywhere in the upper GIT - Stool Hemoccult negative - H&H slowly trending down to 6.8 today - Iron studies with a mixed picture - Normal B12 and folate - Monitor H&H and signs of hemodynamic instability - Transfuse 2 units of packed red blood cells today. Discussed with son And does not want to pursue further aggressive procedure such as colonoscopy. Son requested hematology consultation as this could be a chronic problem leading to transferring in and out of nursing homes for drops in hemoglobin. 4. Thrombocytopenia - Platelets slowly trending down - Down to 79 this AM - Hold heparin - Follow CBC - No signs of active bleeding 5. Failure to thrive, protein energy malnutrition - Patient with severe pharyngeal dysphagia, esophageal stricture - G/J tube in place flush with 60 cc free water every 8 hours and Vital 1.5 at 55/hr per nutrition recs - G-tube to gravity 5. Chronic systolic heart failure - 2D cho 02/23 showing EF 35% with anterior septal hypokinesis and biatrial dilation - Patient euvolemic on exam - Pt would benefit from an SNEHA-I or ARB as well as spironolactone but BPs have been borderline hypotensive so will hold off for now 6. MRSA/Caitlyn tropicalis UTI - S/P treatment with vancomycin, cefepime, and Diflucan 7. Hypothyroidism - Continue home Levothyroxine 8. Adjustment disorder with depression - Continue Lexapro - Added Wellbutrin 75 mg BID 9. Coccygeal wound - Wound care following, noted new skin tear to left buttock on 03/25 - Calazime BID and PRN for skin tear - Ultrasorb underpad for moisture - Strict Q2H turns from left to right sides only with limited time spent on back for therapies only - Obtain and place patient on Airapy low air loss mattress - Apply OptiFoam adhesive to coccyx wound Q3D and PRN for soiling or dislodgement. 10. GERD, h/o Barretts - Continue PPI DVT prophylaxis: SCDs, holding heparin for anemia and thrombocytopenia Patient with multiple comorbidities as described above. Will d/w son and consult palliative care to come see her Discussed Condition With: Patient, RN, and son Discharge Planning: Patient will need rehab on discharge. Case management assisting with SNF placement, [facility] following Son, ICU PA, requests regular updates. Hoping for acceptance to [facility] Discussed with Dr. Montgomery today who will continue discussion with the son for disposition planning after inpatient rehab. Palliative care now consulted to assess end of life goals (3) Respiratory failure Qualifiers: Chronicity: acute Respiratory failure complication: hypoxia Qualified Code(s ): J96.01 - Acute respiratory failure with hypoxia
[2018-03-26] MEDS ORDERED: Sodium Chlor 0.9% Inj 250 ML IV.SIG SCH ×2 (10:00→11:00)
[2018-03-26] MEDS: Senna/Docusate Sodium 8.6/50 MG Tablet PO SCH ×2 (10:34→22:54)
[2018-03-26] MEDS: Potassium Chloride 25 MEQ Effervescent Tablet J-TUBE SCH (10:34)
[2018-03-26] MEDS: buPROPion 75 MG Tablet PO SCH ×2 (10:34→22:55)
[2018-03-26] MEDS: Ascorbic Acid 500 MG Tablet G-TUBE SCH ×2 (10:35→22:55)
[2018-03-26] MEDS: Polyethylene Glycol 3350 17 GM Packet PO SCH ×2 (10:37→22:56)
[2018-03-26] MEDS: Chlorhexidine 0.12% Oral Kit 15 ML UDC OROPHARYNG SCH ×2 (10:37→23:11)
[2018-03-26] MEDS: Mupirocin 2% Nasal Oint Topical Syringe EACH NARE SCH ×2 (10:37→23:10)
[2018-03-26] MEDS: levoFLOXacin Liq 25 MG/ML 100 ML Bottle PO SCH (10:38)
[2018-03-26 14:34] LABS: Bacteria,Urine Occasional /hpf; Bilirubin,Urine Negative (Negative); Clarity,Urine Cloudy (Clear); Color,Urine Yellow (Yellw/Straw); Glucose,Urine (UA) Negative (Negative); Leukocyte Esterase,Urine Negative (Negative); Mucus,Urine Few /lpf (Occasional); Nitrite,Urine Negative (Negative); Specific Gravity,Urine 1.019 (1.002-1.035); Squamous Epithelial Cell,Urine 2 /hpf (0-5)
--- NOTE | 2018-03-26 14:51 | P.PNPAL ---
Reason for Visit Reason for visit: a. To assist with evaluation and management of symptoms including:dyspnea, dysphagia, physical deconditioning b. To assist medical decision maker(s) with: better understanding of current medical conditions; weighing benefits/burdens of medical treatment options; making medical treatment decisions. Subjective Subjective/Interval History: Follow up medically necessary for symptom management. Patient seen and examined in her room. Patient is awake, she has just finished using bedpan. Patient c/o discomfort to her right arm. PIV infiltrated, bedside RN informed who immediately removed PIV. Patient remains on T gomez 28%, denies dyspnea. Hg today 6.7, Hct 20.0- 1 unit pRBC ordered to be transfused today. Tube feeding Vital 1.5 infusing at 55ml/hr via J tube- G tube to gravity with brownish colored drainage. Speech therapy evaluated patient today, appeared to tolerate thin liquids and puree but recommends NPO and a modified barium swallow evaluation to be certain given patient`s high risk for aspiration. Patient appears not in a mood to talk today. She sates that she wants to rest. Asked patient again if she wants Palliative to talk to her son and she shook her head and said no. Patient states that she hopes to go to rehab and then go back home. Asked if she would like palliative care to keep coming to see her and she said yes. Case discussed with bedside RN. Family/Friend Interactions: No family at bedside. Advance Directives Health Care Surrogate Name and Number: Fish Alcantara [phone] Objective Vital Signs: Vital Signs 03/25/18 15:33 03/25/18 16:00 03/25/18 16:31 Temperature 98.7 F Pulse Rate 55 L Respiratory Rate 12 12 Blood Pressure 98/65 L Pulse Oximetry 98 98 03/25/18 17:32 03/25/18 20:00 03/26/18 00:00 Temperature 99.4 F 99.7 F H Pulse Rate 68 70 Respiratory Rate 14 22 20 Blood Pressure 91/53 L 93/46 L Pulse Oximetry 94 L 94 L 03/26/18 04:00 03/26/18 07:00 03/26/18 08:00 Temperature 98.7 F 99.3 F Pulse Rate 71 71 Respiratory Rate 16 14 Blood Pressure 91/45 L 106/54 L Pulse Oximetry 92 L 97 97 03/26/18 10:17 08/08/18 10:18 Temperature Pulse Rate Respiratory Rate 16 14 Blood Pressure Pulse Oximetry Intake & Output 03/25/18 03/26/18 03/26/18 18:59 06:59 18:59 Intake Total 1308 / 1308 3019 / 3019 Output Total 1800 / 1800 900 / 900 Balance -492 / -492 2119 / 2119 Weight 69.7 kg Intake: IV 1000 / 1000 D5W/Normal Saline Inj 1,000 ML 1000 / 1000 @ 84 mls/hr IV.CONT .[id number] [facility] Rx#:[id number] Tube Feeding 300 / 300 1698 / 1698 Tube Irrigant 201 / 201 Water Bolus Amount 120 / 120 Other 1008 / 1008 Output: Gastric Drainage 1800 / 1800 900 / 900 Pre-Hospital Gastrojejunostomy 1800 / 1800 900 / 900 Tube Other: Other Intake Source Saline Solution # Voids 2 Date of Last Bowel Movement 03/25/18 03/25/18 03/25/18 # Bowel Movements 1 Physical Exam: CONSTITUTIONAL/GENERAL: This is an thin elderly patient, with muscle wasting, in no apparent distress. TUBES/LINES/DRAINS: Tracheostomy, PIV, GJ tube SKIN: No jaundice, rashes, or lesions. Ecchymoses on upper extremities. No wounds seen anteriorly. Normothermic EYES: Pupils equal and round and reactive. No scleral icterus. No injection or drainage. Fundi not examined. ENT: Hearing grossly normal. Nose without bleeding or purulent drainage. Tracheostomy midline. Moist oral mucosa NECK: Trachea midline. Supple, nontender. CARDIOVASCULAR: Regular rate and rhythm without murmurs, gallops, or rubs. No JVD. Peripheral pulses symmetric. RESPIRATORY/CHEST: Symmetric, unlabored respirations. Rhonchi to auscultation no wheezes, rales. GASTROINTESTINAL: Abdomen soft, non-tender, nondistended. No guarding. Bowel sounds present. G tube to gravity, TF via J tube GENITOURINARY: Without palpable bladder distension. MUSCULOSKELETAL: Extremities without clubbing, cyanosis, or edema. No joint tenderness or effusion noted. No calf tenderness. No mottling or clubbing. NEUROLOGICAL: Awake and alert, oriented to self, place and situation. Communicates by writing and mouthing words motor and sensory grossly within normal limits. Follows commands with all extremities. PSYCHIATRIC: No obvious anxiety/depression. no apparent hallucinations or other psychotic thought process. Diagnostic Tests Laboratory: Laboratory Results - last 72 hr 03/21/18 03/23/18 03/24/18 11:04 16:53 00:40 WBC RBC Hgb Hct MCV MCH MCHC RDW Plt Count MPV Sodium Potassium Chloride Carbon Dioxide Anion Gap BUN Creatinine Estimated GFR POC Glucose 131 H 138 H Random Glucose Calcium Prot Corrected Calcium Total Protein Blood Type Antibody Screen MTS Gel Crossmatch See Detail 03/24/18 03/24/18 03/24/18 09:47 09:47 12:55 WBC 4.6 RBC 2.65 L Hgb 7.6 L Hct 23.2 L MCV 87.3 MCH 28.8 MCHC 33.0 RDW 20.3 H Plt Count 120 L D MPV 9.9 Sodium 139 Potassium 3.6 Chloride 105 Carbon Dioxide 23.9 Anion Gap 10 BUN 31 H Creatinine 1.09 H Estimated GFR 49 L POC Glucose 93 Random Glucose 84 Calcium 7.8 L Prot Corrected Calcium Total Protein Blood Type Antibody Screen MTS Gel Crossmatch 03/24/18 03/25/18 03/25/18 18:31 00:21 05:07 WBC RBC Hgb Hct MCV MCH MCHC RDW Plt Count MPV Sodium Potassium Chloride Carbon Dioxide Anion Gap BUN Creatinine Estimated GFR POC Glucose 99 107 94 Random Glucose Calcium Prot Corrected Calcium Total Protein Blood Type Antibody Screen MTS Gel Crossmatch 03/25/18 03/25/18 03/25/18 07:03 07:03 11:24 WBC 3.8 L RBC 2.50 L Hgb 7.3 L Hct 22.0 L MCV 87.7 MCH 29.2 MCHC 33.3 RDW 19.9 H Plt Count 79 L D MPV 10.5 Sodium 141 Potassium 3.5 Chloride 106 Carbon Dioxide 26.4 Anion Gap 9 BUN 26 H Creatinine 1.05 H Estimated GFR 52 L POC Glucose 124 H Random Glucose 108 H Calcium 8.0 L Prot Corrected Calcium Total Protein Blood Type Antibody Screen MTS Gel Crossmatch 03/25/18 03/26/18 03/26/18 17:31 06:22 06:28 WBC 4.4 RBC 2.26 L Hgb 6.7 L* Hct 20.0 L* MCV 88.5 MCH 29.5 MCHC 33.4 RDW 20.2 H Plt Count 68 L MPV 9.7 Sodium Potassium Chloride Carbon Dioxide Anion Gap BUN Creatinine Estimated GFR POC Glucose 126 H 147 H Random Glucose Calcium Prot Corrected Calcium Total Protein Blood Type Antibody Screen MTS Gel Crossmatch 03/26/18 03/26/18 03/26/18 06:28 09:40 11:41 WBC RBC Hgb Hct MCV MCH MCHC RDW Plt Count MPV Sodium 145 Potassium 3.6 Chloride 111 H Carbon Dioxide 25.6 Anion Gap 8 BUN 25 H Creatinine 1.06 H Estimated GFR 51 L POC Glucose Random Glucose 139 H Calcium 7.2 L* D Prot Corrected Calcium 8.5 Total Protein 4.7 L Blood Type B Positive Antibody Screen Negative MTS Gel Crossmatch See Detail See Detail Result Diagrams: 03/26/18 06:28 03/26/18 06:28 Procedures: 03/06/18-endotracheal intubation in the field 03/06/18-right femoral central line 03/11/18-percutaneous tracheostomy with bronchoscopy 03/19/18-esophagogastroscopy with wire insertion/esophageal dilatation. Assessment and Plan - Disease Oriented Problem List (1) History of laryngeal cancer (2) Respiratory failure with hypoxia (3) Protein-calorie malnutrition, severe (4) Aspiration pneumonia (5) Status post radiation therapy (6) Supraglottic stenosis (7) Barretts esophagus (8) Hypothyroidism - Symptom Scale (1) Dysphasia 0-10 Scale: Unable to quantify Comment: History of supra glottic squamous cell carcinoma of the larynx and radiation induced stricture. 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 Patient now has a tracheostomy. (3) Physical deconditioning 0-10 Scale: Unable to quantify Pertinent Non-Medical Issues: Psychosocial: Patient is originally from [place]. She moved to [place] in 1978. Patient was once and is . Patient has 3 sons and 4 grandchildren. 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 Spiritual: Patient is Restorationism Legal: Patient states that she has a DURABLE POWER OF PLANT INSPECTOR including healthcare Ethical issues impacting care: None identified at this time Important Contacts: Son-Alireza Whitten [phone] Prognosis: Ms. 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 Patient was brought to the [facility] ER by EMS on 03/06/18 due to respiratory failure. Her O2 saturation was in the 50s on room air and she was intubated in the field prior to arrival to the ER. During this hospitalization patient underwent tracheostomy placement is well is esophageal dilatation. Given patient's comorbidities, multiple hospitalizations , she remains at risk for further complications, deterioration and decline. Code Status: Full Code Plan: PLAN: Legal decision maker: Patient is alert, oriented to self, place and situation. She appears to have insight regarding her medical condition. In the event that she is incapacitated patient stated that her son Fish Alcantara is her Durable Power of Matrix Inspector including Healthcare. Goals: Remain Aggressive-Patient wants to go to rehabilitation and then home. Patient does not want Palliative care to call her son but wants Palliative care to continue seeing her. 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 Patient was intubated on the field when she was noted to be in respiratory failure. Patient underwent tracheostomy placement and esophageal dilatation this hospitalization. Patient is currently on a T- piece FiO2 28% at this time. Recent chest x-ray on 03/25/18 showing airspace disease greater on left lower lobe than the right lower lobe. 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 Patient is failed barium swallow eval.Tube feeds via J tube. s/p esophageal dilatation. Speech therapy eval today, recommended modified barium swallow given high risk for aspiration. NPO for now. * Physical deconditioning: Progressive. Patient has had prolonged hospitalization. She has undergone tracheostomy and GJ tube placement during these hospitalizations. Patient reports unintentional significant weight loss. Physical therapy following, recommending PT at rehab. Pt being evaluated by [facility]. Palliative care will continue to follow the patient during hospital course as condition evolves, to assist patient/decision-maker with understanding of their medical conditions, weighing benefits/burdens of treatment options, for clarification of goals of treatment. Additionally will assist with any symptoms of palliative concern Attestation Attestation: To help prompt me to consider important information that might be impacting today's encounter and assessment, information from prior notes written by myself or my colleagues may have been "brought forward" into today's note. My signature on this note, however, is an attestation that I personally performed the exam, history, and/or decision-making noted today, and, unless otherwise indicated, the interactions with patient, family, and staff as well as the review of records all occurred today. I also attest that the listed assessment and stated plan reflect my best clinical judgment today based on the combination of historical information, prior notes, and today's exam/ interactions. When time spent is documented, it refers only to time spent today by the signer, or if indicated, combined time spent today by collaborating physician/nurse practitioner.
--- NOTE | 2018-03-26 16:41 | P.PN ---
Subjective Interval history: Alert and seems depressed. On a T Bar at 28 %. No fever. Physical Exam Vital signs: Vital Signs 03/25/18 17:32 03/25/18 20:00 03/26/18 00:00 Temperature 99.4 F 99.7 F H Pulse Rate 68 70 Respiratory Rate 14 22 20 Blood Pressure 91/53 L 93/46 L Pulse Oximetry 94 L 94 L 03/26/18 04:00 03/26/18 07:00 03/26/18 08:00 Temperature 98.7 F 99.3 F Pulse Rate 71 71 Respiratory Rate 16 14 Blood Pressure 91/45 L 106/54 L Pulse Oximetry 92 L 97 97 03/26/18 10:17 03/26/18 10:18 03/26/18 12:00 Temperature 98.7 F Pulse Rate 98 H Respiratory Rate 16 14 14 Blood Pressure 105/70 Pulse Oximetry 97 03/26/18 15:01 03/26/18 16:23 03/26/18 16:29 Temperature 98.9 F Pulse Rate 70 Respiratory Rate 14 16 Blood Pressure 95/46 L Pulse Oximetry 96 96 03/26/18 16:34 Temperature 98.9 F Pulse Rate 70 Respiratory Rate 16 Blood Pressure 95/46 L Pulse Oximetry 96 Intake & Output 03/25/18 03/26/18 03/26/18 18:59 06:59 18:59 Intake Total 1308 / 1308 3019 / 3019 1000 / 1000 Output Total 1800 / 1800 900 / 900 Balance -492 / -492 2119 / 2119 1000 / 1000 Weight 69.7 kg Intake: IV 1000 / 1000 1000 / 1000 D5W/Normal Saline Inj 1,000 ML 1000 / 1000 1000 / 1000 @ 84 mls/hr IV.CONT .[id number] [facility] Rx#:[id number] Tube Feeding 300 / 300 1698 / 1698 Tube Irrigant 201 / 201 Water Bolus Amount 120 / 120 Other 1008 / 1008 Output: Gastric Drainage 1800 / 1800 900 / 900 Pre-Hospital Gastrojejunostomy 1800 / 1800 900 / 900 Tube Other: Other Intake Source Saline Solution # Voids 2 Date of Last Bowel Movement 03/25/18 03/25/18 03/25/18 # Bowel Movements 1 Narrative: GENERAL: Thin elderly female in No distress. SKIN: Warm and dry.. NECK: Tracheostomy in place with sutures. HEART: RRR no m/r/g/. LUNGS: Lung sounds clear with distant breath sounds, no wheezing. ABDOMEN: G/J tube in place. No surrounding erythema . +BS, soft, NT, ND. EXTREMITIES: No LE edema. Diminished pedal pulses. NEURO: Awake and alert. anxious PSYCH: Depressed mood. - Urinary Catheter Management Female External Cath placed during this visit: no Indwelling Urethral Catheter Cath placed during this visit: yes, but has since been removed by the nurse Reason for continuing: Hourly intake/output Insertion date: 03/06/18 Insertion time: 18:00 Removal date: 03/10/18 Removal time: 17:00 Results - Labs CBC & Chem 7: 03/26/18 06:28 03/26/18 06:28 Laboratory Results - last 24 hr 03/21/18 03/25/18 03/26/18 10:16 17:31 06:22 WBC RBC Hgb Hct MCV MCH MCHC RDW Plt Count MPV Sodium Potassium Chloride Carbon Dioxide Anion Gap BUN Creatinine Estimated GFR POC Glucose 126 H 147 H Random Glucose Calcium Prot Corrected Calcium Total Protein Urine Color Urine Clarity Urine pH Ur Specific [place] Urine Protein Urine Glucose (UA) Urine Ketones Urine Occult Blood Urine Nitrate Urine Bilirubin Urine Urobilinogen Ur Leukocyte Esterase Urine RBC Urine WBC Ur Squamous Epith Cells Urine Bacteria Urine Mucus Urine Yeast Ur Yeast w Hyphae Blood Type Antibody Screen MTS Gel Crossmatch See Detail 03/26/18 03/26/18 03/26/18 06:28 06:28 09:40 WBC 4.4 RBC 2.26 L Hgb 6.7 L* Hct 20.0 L* MCV 88.5 MCH 29.5 MCHC 33.4 RDW 20.2 H Plt Count 68 L MPV 9.7 Sodium 145 Potassium 3.6 Chloride 111 H Carbon Dioxide 25.6 Anion Gap 8 BUN 25 H Creatinine 1.06 H Estimated GFR 51 L POC Glucose Random Glucose 139 H Calcium 7.2 L* D Prot Corrected Calcium 8.5 Total Protein 4.7 L Urine Color Urine Clarity Urine pH Ur Specific [place] Urine Protein Urine Glucose (UA) Urine Ketones Urine Occult Blood Urine Nitrate Urine Bilirubin Urine Urobilinogen Ur Leukocyte Esterase Urine RBC Urine WBC Ur Squamous Epith Cells Urine Bacteria Urine Mucus Urine Yeast Ur Yeast w Hyphae Blood Type Antibody Screen MTS Gel Crossmatch See Detail 08/08/18 08/08/18 11:06 11:41 WBC RBC Hgb Hct MCV MCH MCHC RDW Plt Count MPV Sodium Potassium Chloride Carbon Dioxide Anion Gap BUN Creatinine Estimated GFR POC Glucose Random Glucose Calcium Prot Corrected Calcium Total Protein Urine Color Yellow Urine Clarity Cloudy H Urine pH 5.0 Ur Specific [place] 1.019 Urine Protein 30 H Urine Glucose (UA) Negative Urine Ketones Negative Urine Occult Blood Negative Urine Nitrate Negative Urine Bilirubin Negative Urine Urobilinogen 2.0 H Ur Leukocyte Esterase Negative Urine RBC 3 Urine WBC 2 Ur Squamous Epith Cells 2 Urine Bacteria Occasional H Urine Mucus Few H Urine Yeast Rare H Ur Yeast w Hyphae Rare H Blood Type B Positive Antibody Screen Negative MTS Gel Crossmatch See Detail 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 - Malignant neoplasm of larynx, unspecified Status: Acute (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 Leave on T Bar 28 % FIO2 2. Trach care and lavage PRN 3. Continue Duo nebs q6h 4. PT evaluation to help activity 5. Will use a PM Valve to talk. 6. Palliative care to see. 7. Tube feeds at 60 CC. 8. Chest Xray in am (7) Aspiration pneumonia Qualifiers: Aspiration pneumonia type: unspecified Laterality: unspecified laterality Lung location: unspecified part of lung Qualified Code(s): J69.0 - Pneumonitis due to inhalation of food and vomit
[2018-03-27] MEDS: Hypromellose 0.3% Opth Gel 10 GM Bottle EACH EYE SCH ×3 (00:01→16:41)
[2018-03-27] MEDS: Dextrose 5%/NaCl 0.9% Inj 1,000 ML IV.CONT SCH ×3 (03:50→16:41)
[2018-03-27] MEDS: Pantoprazole Inj 40 MG Vial IV.PUSH SCH ×2 (03:51→14:50)
[2018-03-27] MEDS: Oral Hygiene Kit OROPHARYNG SCH ×3 (03:52→15:53)
[2018-03-27] MEDS: Levothyroxine 100 MCG Tablet NG/OG SCH (05:58)
[2018-03-27] MEDS: Morphine Inj 4 MG/ML Vial IV.PUSH PRN ×3 (05:59→21:41)
[2018-03-27] MEDS: Insulin NovoLOG Aspart Correctional Sugar Inj SQ SCH ×3 (06:12→19:01)
[2018-03-27] MEDS: Ascorbic Acid 500 MG Tablet G-TUBE SCH ×2 (08:30→20:47)
[2018-03-27] MEDS: Senna/Docusate Sodium 8.6/50 MG Tablet PO SCH ×2 (08:30→20:47)
[2018-03-27] MEDS: buPROPion 75 MG Tablet PO SCH ×2 (08:30→20:47)
[2018-03-27] MEDS: Potassium Chloride 25 MEQ Effervescent Tablet J-TUBE SCH (08:30)
[2018-03-27] MEDS: Hyoscyamine Liq Drops 0.125 MG/ML 15 ML Bottle SL PRN (08:31)
[2018-03-27] MEDS: Polyethylene Glycol 3350 17 GM Packet PO SCH ×2 (08:31→20:47)
[2018-03-27] MEDS: Chlorhexidine 0.12% Oral Kit 15 ML UDC OROPHARYNG SCH ×2 (08:32→20:49)
[2018-03-27] MEDS: Mupirocin 2% Nasal Oint Topical Syringe EACH NARE SCH ×2 (08:32→20:48)
--- NOTE | 2018-03-27 09:52 | MB ---
cc: Tracy Jacques MD, Ginny MD DATE: 03/27/2018 REFERRING PHYSICIAN: Brenda Beyer MD CHIEF COMPLAINT: Dr. Beyer requested consultation for Ms. Henson regarding anemia as requested by her son. HISTORY OF PRESENT ILLNESS: Ms. 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 She received concurrent chemotherapy under the care of Dr. Hooper and Dr. Pineda. Staging evaluation in 2014 and 2015 was negative for recurrent disease. Her son on discussion of the phone was not sure about her followup, but review of the electronic medical record revealed a consultation inpatient for Dr. Pineda on 02/12/2018. Dr. Pineda notes that he has not seen the patient since 2015 for her supraglottic laryngeal cancer. She initially had a T4 N1 M0, stage III disease. She had restaging CT scan soft tissue of the neck in 2015, which was negative. She was seen for evaluation of anemia. Workup for a nutritional deficiency such as B12 and iron was performed. At the time, Dr. Pineda had considered an underlying bone marrow pathology. However, she was quite cachectic and lost weight in the last [address] Aly was consulted for a GJ tube. Dr. Aly was agreeable with the plan. Review of the electronic medical record reveals a normal hemoglobin in 2013 and at the start of her treatment in 2014. During her admission, 02/11/2018, her hemoglobin was 6.3. Her platelet count is normal. Her white blood cell count was normal. Review of the electronic medical record also shows endoscopy that showed stricture at the cricopharyngeus, a small hiatal hernia. The stomach and duodenum was normal. This was in 2016. She has known esophageal stricture that was not amenable to treatment by dilation. Review of the blood bank records show that she required transfusion of 2 units of packed red cells in 2014 and then most recently on 02/11/2018 and on 02/12/2018. She has no previous history of venous thromboembolic event. In February, she has required 3 units of packed red cell and in March, she has required another 3 units. Her transfusion requirement appears to be increasing. A new change in her laboratory evaluation shows new thrombocytopenia from 03/14/2018. The platelet count decreased to 68,000 at the time of the consultation. She also had a fever. Ms. Henson is unable to give any history. She has tracheostomy tube in place. She is pleasant and cooperative. She appears anxious. 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 PAST SURGICAL HISTORY: Appendectomy, cholecystectomy, colonoscopy, hernia repair, and tonsillectomy. ALLERGIES: NO KNOWN DRUG ALLERGIES. SOCIAL HISTORY: She does not smoke. She has a [id number] smoking history. No alcohol use. REVIEW OF SYSTEMS: Unable to obtain. She has a son who is a PA and calls to see her wellbeing every day. MEDICATIONS: Include: 1. Tylenol. 2. Albuterol. 3. Artificial Tears. 4. Ascorbic acid. 5. Bisacodyl. 6. Wellbutrin. 7. Zyrtec. 8. Peridex. 9. Lexapro. 10. Heparin held on 03/25/2018. 11. Levsin 12. NovoLog. 13. Lactulose. 14. Synthroid. 15. Morphine. 16. Theragran. 17. Mupirocin/Bactroban. 18. Oxycodone. 19. Protonix. 20. MiraLax. 21. Senna. 22. Senokot. 23. Zinc. PHYSICAL EXAMINATION: VITAL SIGNS: Temperature 98.2, heart rate 66, respiratory rate 18, blood pressure 103/51, saturation 96%, T-max 101.1, which is new. GENERAL: Ms. Henson is a cachectic, elderly woman with tracheostomy tube in place. Her mouth is dry. HEENT: Her pupils are round, and reactive. Oropharynx is dry. NECK: Supple. LUNGS: Clear anteriorly. CARDIOVASCULAR: Reveals normal rate and rhythm. ABDOMEN: With a dressing as PEG tube has a leak. EXTREMITIES: Lower extremity with no edema. There is great deal of muscle atrophy, but moves all 4 extremities. LABORATORY DATA: As described above. ASSESSMENT AND PLAN: Ms. Henson is a 73-year-old woman with history of head and neck cancer. She was initially diagnosed in 2014. Her followup has not been consistent. She is well known patient to Dr. Gopal Pineda, who saw her in January of this year for the anemia. Hematology/oncology is consulted again for the anemia. Review of the electronic medical record shows anemia and thrombocytopenia. There is increased need for transfusion over the last 2 months. I discussed with the son and the patient the risks and benefit of bone marrow biopsy evaluation, which was considered by Dr. Pineda in the last consultation. There is a new consideration for thrombocytopenia. Differential includes heparin-induced thrombocytopenia was quickly pointed out by her son. The heparin has been placed on hold prior to my consult. Heparin-induced thrombocytopenia antibodies will be followed up. Clinical suspicion for this is quite low. I will obtain ultrasound of the lower extremity to rule out asymptomatic venous thromboembolic event. She is at high risk in light of her debilitated state, history of cancer, and mainly bedbound. She also has new fever. Consumptive coagulopathy/DIC will be excluded. A Blanca test will be checked. She has been transfused blood from the previous month. Posttransfusion purpura is considered. Hemolysis workup will be performed as she has had multiple blood transfusions. We will evaluate for any antibodies. Lastly, we will evaluate for any evidence of bleeding. Transfusion requirement has increased. No overt bleeding noted. Discussion with the patient's nurse confirms no overt bleeding. Her questions were answered to her satisfaction. Her son's questions were answered, including his questions regarding treatment options for myelodysplastic syndrome, which is only one in the differential of anemia, and a diagnosis of bone marrow pathology has not been confirmed. Dr. Pineda will return in followup tomorrow. MD EDIL Butts/ANETA , 09:05 AM , 09:21 AM OSWALDO
--- NOTE | 2018-03-27 10:24 | P.PNIM ---
Subjective Interval history: No new issues per RN feeding tube is leaking Was transfused 2 units packed red blood cells yesterday We will check a.m. lab Physical Exam Vital signs: Vital Signs 03/26/18 12:00 03/26/18 15:01 03/26/18 16:00 Temperature 98.7 F 99 F Pulse Rate 98 H 72 Respiratory Rate 14 14 14 Blood Pressure 105/70 98/50 L Pulse Oximetry 97 97 03/26/18 16:23 03/26/18 16:29 03/26/18 16:34 Temperature 98.9 F 98.9 F Pulse Rate 70 70 Respiratory Rate 16 16 Blood Pressure 95/46 L 95/46 L Pulse Oximetry 96 96 96 03/26/18 16:45 03/26/18 16:57 03/26/18 18:00 Temperature 98.4 F 98.2 F 99 F Pulse Rate 71 76 76 Respiratory Rate 14 14 14 Blood Pressure 99/48 L 97/50 L 98/50 L Pulse Oximetry 97 97 03/26/18 20:00 03/27/18 00:00 03/27/18 04:00 Temperature 98.6 F 101.1 F H 98.2 F Pulse Rate 84 78 66 Respiratory Rate 18 18 18 Blood Pressure 116/56 L 94/46 L 103/51 L Pulse Oximetry 94 L 96 03/27/18 06:00 Temperature Pulse Rate Respiratory Rate 18 Blood Pressure Pulse Oximetry Intake & Output 03/26/18 03/27/18 03/27/18 18:59 06:59 18:59 Intake Total 5658 / 5658 1900 / 1900 1000 / 1000 Output Total 1900 / 1900 1400 / 1400 Balance 3758 / 3758 500 / 500 1000 / 1000 Weight 69.2 kg Intake: IV 1999 / 2000 1000 / 1000 1000 / 1000 D5W/Normal Saline Inj 1,000 ML 2000 / 2000 1000 / 1000 1000 / 1000 @ 84 mls/hr IV.CONT .[id number] [facility] Rx#:[id number] Tube Feeding 1600 / 1600 660 / 660 Tube Irrigant 120 / 120 Water Bolus Amount 120 / 120 Other 1258 / 1258 Intake (Blood Product) Amt 0 / 0 0 / 0 Rbc As-3 Leukoreduced Unit 0 / 0 [id number] Rbc As-3 Leukoreduced Unit 0 / 0 0 / 0 [id number] Autotransfusion Amount 800 / 800 Output: Gastric Drainage 1900 / 1900 1400 / 1400 Pre-Hospital Gastrojejunostomy 1900 / 1900 1400 / 1400 Tube Other: Other Intake Source Saline Solution # Voids 4 Date of Last Bowel Movement 03/25/18 03/25/18 Narrative: GENERAL: Thin elderly female in No distress. SKIN: Warm and dry.. NECK: Tracheostomy in place with sutures. HEART: RRR no m/r/g/. LUNGS: Lung sounds clear with distant breath sounds, no wheezing. ABDOMEN: G/J tube in place. No surrounding erythema . +BS, soft, NT, ND. EXTREMITIES: No LE edema. Diminished pedal pulses. NEURO: Awake and alert. anxious PSYCH: Depressed mood. - Urinary Catheter Management Female External Cath placed during this visit: no Indwelling Urethral Catheter Cath placed during this visit: yes, but has since been removed by the nurse Reason for continuing: Hourly intake/output Insertion date: 03/06/18 Insertion time: 18:00 Removal date: 03/10/18 Removal time: 17:00 Results - Labs CBC & Chem 7: 03/26/18 06:28 03/26/18 06:28 Laboratory Results - last 24 hr 03/21/18 03/26/18 03/26/18 10:16 09:40 11:06 POC Glucose Urine Color Yellow Urine Clarity Cloudy H Urine pH 5.0 Ur Specific [place] 1.019 Urine Protein 30 H Urine Glucose (UA) Negative Urine Ketones Negative Urine Occult Blood Negative Urine Nitrate Negative Urine Bilirubin Negative Urine Urobilinogen 2.0 H Ur Leukocyte Esterase Negative Urine RBC 3 Urine WBC 2 Ur Squamous Epith Cells 2 Urine Bacteria Occasional H Urine Mucus Few H Urine Yeast Rare H Ur Yeast w Hyphae Rare H Blood Type Antibody Screen MTS Gel Crossmatch See Detail See Detail 03/26/18 03/26/18 03/26/18 11:41 17:52 22:46 POC Glucose 110 124 H Urine Color Urine Clarity Urine pH Ur Specific [place] Urine Protein Urine Glucose (UA) Urine Ketones Urine Occult Blood Urine Nitrate Urine Bilirubin Urine Urobilinogen Ur Leukocyte Esterase Urine RBC Urine WBC Ur Squamous Epith Cells Urine Bacteria Urine Mucus Urine Yeast Ur Yeast w Hyphae Blood Type B Positive Antibody Screen Negative MTS Gel Crossmatch See Detail - Imaging Chest X-Ray 03/06/18 17:56 CONCLUSION: 1. ET tube in good position. 2. Interval development of nonconsolidative airspace opacities in the central lungs bilaterally suggesting pulmonary edema. 3. Stable left lower lobe consolidation. Chest X-Ray 03/07/18 05:35 CONCLUSION: 1. Modestly improved bibasilar consolidation. 2. Small left pleural effusion not significantly changed. 3. New left IJ central venous catheter with tip at the atriocaval junction. No pneumothorax. Chest X-Ray 03/08/18 00:00 CONCLUSION: Decreased mild bilateral pulmonary parenchymal opacity and small left pleural effusion. Chest X-Ray 03/09/18 06:00 CONCLUSION: Mild bilateral lower lung opacity unchanged. Chest X-Ray 03/10/18 06:00 CONCLUSION: Stable bibasilar atelectatic changes. Chest X-Ray 03/11/18 12:14 CONCLUSION: Interval tracheostomy tube placement. Persistent bibasilar consolidations. Abdomen X-Ray 03/12/18 00:00 CONCLUSION: Unremarkable study. Abdomen/Pelvis CT 03/15/18 00:00 CONCLUSION: 1. Small pleural effusions with compressive atelectasis. 2. Gastrostomy tube evident within normal bowel gas pattern by CT. The tip of the gastrostomy tube is in the antrum of the stomach. Chest X-Ray 03/17/18 00:00 CONCLUSION: No significant change. Persistent opacity remains in both lungs right greater than left. Chest X-Ray 03/17/18 11:17 CONCLUSION: Overall stable appearance of the chest. Chest X-Ray 03/22/18 00:00 CONCLUSION: Stable left lower lobe consolidation and probable right pleural effusion. Chest X-Ray 03/25/18 00:00 CONCLUSION: Stable appearance of the chest. Assessment and Plan - Assessment (1) Acute adjustment disorder with depressed mood Code(s): F43.21 - Adjustment disorder with depressed mood Status: Acute (2) Dysphasia Code(s): R47.02 - Dysphasia Status: Acute (3) Respiratory failure Code(s): J96.90 - Respiratory failure, unspecified, unspecified whether with hypoxia or hypercapnia Status: Acute (4) Protein-calorie malnutrition, severe Code(s): E43 - Unspecified severe protein-calorie malnutrition Status: Chronic (5) Laryngeal squamous cell carcinoma Code(s): C32.9 - Malignant neoplasm of larynx, unspecified Status: Acute (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 1. Acute on chronic respiratory failurecurrently improving and resolved on trach with pulmonology following. - Patient with history of supraglottic laryngeal cancer s/p radiation and chemo resulting in radiation-induced laryngeal scarring and recurrent aspiration - Presented on 03/06 with respiratory distress and saturations in the 50s, intubated emergently by ED physician - Sputum culture 03/08 growing MRSA - S/P treatment for aspiration PNA with Cefepime, Flagyl, and Vancomycin - S/P tracheostomy 03/11 with general surgery - Pulmonology following for trach care - Bronchodilators - On T-piece now with FiO2 28 - Remove sutures 2. Aspiration pneumonia - CXR this AM showing stable appearance of the chest with trach tube and left lower lobe airspace disease - Remains afebrile - Continue Levaquin - Supplemental O2 3. Anemia, acute on chronic may be due to chronic kidney disease - Pt with dark output in G-tube noted on 03/21. GI was notified and patient underwent EGD showing radiation telangiectasias in the proximal esophagus, esophageal stricture, inflammatory distal esophageal polyp, normal G-tube placement, and no evidence of blood anywhere in the upper GIT - Stool Hemoccult negative - H&H slowly trending down to 6.8 today - Iron studies with a mixed picture - Normal B12 and folate - Monitor H&H and signs of hemodynamic instability - Transfuse 2 units of packed red blood cells today. Discussed with son And does not want to pursue further aggressive procedure such as colonoscopy. Son requested hematology consultation as this could be a chronic problem leading to transferring in and out of nursing homes for drops in hemoglobin. We will get a.m. labs has been transfused yesterday March 26 4. Thrombocytopenia - Platelets slowly trending down - Down to 79 this AM - Hold heparin - Follow CBC - No signs of active bleeding 5. Failure to thrive, protein energy malnutrition - Patient with severe pharyngeal dysphagia, esophageal stricture - G/J tube in place flush with 60 cc free water every 8 hours and Vital 1.5 at 55/hr per nutrition recs - G-tube to gravity 5. Chronic systolic heart failure - 2D cho 02/23 showing EF 35% with anterior septal hypokinesis and biatrial dilation - Patient euvolemic on exam - Pt would benefit from an SNEHA-I or ARB as well as spironolactone but BPs have been borderline hypotensive so will hold off for now 6. MRSA/Caitlyn tropicalis UTI - S/P treatment with vancomycin, cefepime, and Diflucan 7. Hypothyroidism - Continue home Levothyroxine 8. Adjustment disorder with depression - Continue Lexapro - Added Wellbutrin 75 mg BID 9. Coccygeal wound - Wound care following, noted new skin tear to left buttock on 03/25 - Calazime BID and PRN for skin tear - Ultrasorb underpad for moisture - Strict Q2H turns from left to right sides only with limited time spent on back for therapies only - Obtain and place patient on Airapy low air loss mattress - Apply OptiFoam adhesive to coccyx wound Q3D and PRN for soiling or dislodgement. 10. GERD, h/o Barretts - Continue PPI DVT prophylaxis: SCDs, holding heparin for anemia and thrombocytopenia Patient with multiple comorbidities as described above. Will d/w son and consult palliative care to come see her Discharge Planning: Patient will need rehab on discharge. Case management assisting with SNF placement, [facility] following Son, ICU PA, requests regular updates. Hoping for acceptance to [facility] Discussed with Dr. Valentina rasmussen who will continue discussion with the son for disposition planning after inpatient rehab. Palliative care now consulted to assess end of life goals Code Status: Full code Discussed Condition With: RNs and patient Discharge Planning: Patient will need rehab on discharge. Case management assisting with SNF placement, [facility] following Son, ICU PA, requests regular updates. Hoping for acceptance to [facility] Discussed with Dr. Valentina rasmussen who will continue discussion with the son for disposition planning after inpatient rehab. Palliative care now consulted to assess end of life goals (3) Respiratory failure Qualifiers: Chronicity: acute Respiratory failure complication: hypoxia Qualified Code(s ): J96.01 - Acute respiratory failure with hypoxia
[2018-03-27] MEDS: levoFLOXacin Liq 25 MG/ML 100 ML Bottle PO SCH (11:32)
[2018-03-27 12:16] LABS: INR 1.1 Ratio; Prothrombin Time 11.3 sec (9.8-11.6)
--- NOTE | 2018-03-27 21:14 | US ---
EXAM DATE: 03/27/2018 9:07 PM EDT AGE/SEX: 73 years / Female INDICATIONS: Abdominal pain. CLINICAL DATA: This is the patient's initial encounter. Patient reports that signs and symptoms have been present for 1 day and indicates a pain score of 4/10. MEDICAL/SURGICAL HISTORY: Gastroesophageal reflux disease. Hyperthyroidism. Arthritis. Rendon 's esophagus. Skin cancer. 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 Cholecystectomy. Ton sillectomy. Colonoscopy. Esophageal dilation. EGD. Hernia repair. Oral surgery. Adenoidectomy. [place] [facility] [place]. . MEASUREMENTS: Liver:__ 20.5 cm. Common Bile Duct:__ 4mm. Right Kidney:__ 9.2 x 5.0 x 3.6 cm. FINDINGS: Liver: Increased echotexture without focal lesion or ductal dilation. Portal Vein: Hepatopedal flow seen in portal vein. Common Duct: No intraluminal mass or stone visualized. Gallbladder: Surgically absent. Pancreas: Not well visualized. Right Kidney: Increased echotexture. No mass or hydronephrosis. Other: None. CONCLUSION: 1. Hepatomegaly with increased echotexture characteristic of steatosis or diffuse hepatocellular dis ease. 2. No evidence of discrete mass or biliary obstructive disease. 3. Status post cholecystectomy. Electronically signed by: Matthew Macario MD 03/27/2018 9:13 PM EDT
--- NOTE | 2018-03-27 22:00 | US ---
EXAM DATE: 03/27/2018 9:53 PM EDT AGE/SEX: 73 years / Female INDICATIONS: Bilateral leg pain. CLINICAL DATA: This is the patient's subsequent encounter. Patient reports that signs and symptoms h ave been present for 2 weeks and indicates a pain score of 10/10. MEDICAL/SURGICAL HISTORY: Gastroesophageal reflux disease. Hypothyroidism. Arthritis. Rendon' s esophagus. Skin cancer. 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 Cholecystectomy. Tons illectomy. Colonoscopy. Esophageal dilation. EGD. Hernia repair. Oral surgery. Adenoidectomy. COMPARISON: No prior exams available for comparison. TECHNIQUE: Venous ultrasound of both lower extremities was performed from the inguinal ligament to t he proximal calf. Real-time, color Doppler and spectral tracing, compression and augmentation techni ques were used. FINDINGS: Right Leg: Intraluminal thrombus is identified throughout the deep venous system from the groin to t he proximal calf. Deep veins are noncompressible and no flow was detected on Doppler. Left Leg: Normal compression of the deep venous system from the inguinal region to the proximal calf . No echogenic clot is seen. Normal response of the venous system to augmentation and respiration. Other: None. CONCLUSION: 1. Acute DVT right lower extremity 2. No evidence of DVT left lower extremity Electronically signed by: Matthew Macario MD 03/27/2018 9:59 PM EDT
[2018-03-28] MEDS: Oral Hygiene Kit OROPHARYNG SCH ×3 (00:23→17:24)
[2018-03-28] MEDS: Hypromellose 0.3% Opth Gel 10 GM Bottle EACH EYE SCH ×2 (00:27→10:46)
[2018-03-28] MEDS: Insulin NovoLOG Aspart Correctional Sugar Inj SQ SCH ×4 (00:29→17:27)
[2018-03-28] MEDS: Pantoprazole Inj 40 MG Vial IV.PUSH SCH ×2 (01:42→14:00)
[2018-03-28] MEDS: Dextrose 5%/NaCl 0.9% Inj 1,000 ML IV.CONT SCH ×2 (04:09→17:53)
[2018-03-28 05:14] LABS: Reticulocyte Percent 0.4 % (0.4-3.0)
[2018-03-28 05:30] LABS: Hematocrit 27.8 % (35.0-46.0); Mean Corpuscular HGB Conc 32.5 % (32.0-36.0); Mean Corpuscular Hemoglobin 28.8 pg (27.0-34.0); Mean Corpuscular Volume 88.5 fL (80.0-100.0); Mean Platelet Volume 9.7 fL (7.0-11.0); Platelet Count 87 th/mm3 (150-450); Red Blood Count 3.14 mil/mm3 (4.00-5.30)
[2018-03-28] MEDS: Levothyroxine 100 MCG Tablet NG/OG SCH (05:32)
[2018-03-28 05:33] LABS: Magnesium 1.7 mg/dL (1.5-2.5)
[2018-03-28 05:43] LABS: Free T4 (Free Thyroxine) 0.89 ng/dL (0.76-1.46); Thyroid Stimulating Hormone 15.3 uIU/mL (0.358-3.740)
[2018-03-28] MEDS: Morphine Inj 4 MG/ML Vial IV.PUSH PRN ×4 (05:50→21:00)
[2018-03-28 08:16] LABS: Eosinophils 9 % (0-4); Lymphocytes 20 % (9-44); Metamyelocytes 1 % (0-1); Monocytes 6 % (0-8); Myelocytes 3 % (0-0); Ovalocytes 1+; Platelet Morphology Normal (Normal); Promyelocyte 3 % (0-0)
[2018-03-28] MEDS: Polyethylene Glycol 3350 17 GM Packet PO SCH (09:00)
[2018-03-28] MEDS: Potassium Chloride 25 MEQ Effervescent Tablet J-TUBE SCH (09:00)
[2018-03-28] MEDS: Ascorbic Acid 500 MG Tablet G-TUBE SCH ×2 (09:00→20:51)
[2018-03-28] MEDS: Mupirocin 2% Nasal Oint Topical Syringe EACH NARE SCH (10:46)
[2018-03-28] MEDS: Chlorhexidine 0.12% Oral Kit 15 ML UDC OROPHARYNG SCH ×2 (10:46→20:51)
[2018-03-28] MEDS: Senna/Docusate Sodium 8.6/50 MG Tablet PO SCH (10:47)
[2018-03-28] MEDS: buPROPion 75 MG Tablet PO SCH (10:47)
[2018-03-28] MEDS: levoFLOXacin Liq 25 MG/ML 100 ML Bottle PO SCH (10:48)
--- NOTE | 2018-03-28 15:05 | P.PN ---
Subjective Interval history: Seen in her bedroom and discussed with nurse Miss Boudreaux also placed a call to her Son Mr. Quinton Juárez but no answer to my call done twice, he wanted to know why his Mother is not on anticoagulation for her DVT. Patient status post transfusion of two units of PRBCs two days ago. Hematology chemistry specialist following. Physical Exam Vital signs: Vital Signs 03/27/18 15:47 03/27/18 16:00 03/27/18 16:29 Temperature 97.5 F L Pulse Rate 68 Respiratory Rate 14 14 Blood Pressure 100/70 Pulse Oximetry 98 97 03/27/18 20:00 03/28/18 00:00 03/28/18 04:00 Temperature 98.3 F 97.9 F 97.0 F L Pulse Rate 64 62 73 Respiratory Rate 20 20 20 Blood Pressure 106/51 L 93/51 L 102/52 L Pulse Oximetry 96 95 95 03/28/18 04:30 03/28/18 10:24 Temperature Pulse Rate Respiratory Rate Blood Pressure Pulse Oximetry 95 92 L Intake & Output 03/27/18 03/28/18 03/28/18 18:59 06:59 18:59 Intake Total 2800 / 2800 1880 / 1880 Output Total 2800 / 2800 Balance 2800 / 2800 -920 / -920 Weight 69.2 kg Intake: IV 2000 / 1999 1000 / 1000 D5W/Normal Saline Inj 1,000 ML 2000 / 2000 1000 / 1000 @ 84 mls/hr IV.CONT .[id number] [facility] Rx#:[id number] Oral 100 / 100 Tube Feeding 700 / 700 660 / 660 Tube Irrigant 0 / 0 0 / 0 Water Bolus Amount 100 / 100 120 / 120 Output: Urine 1500 / 1500 Emesis 0 / 0 Gastric Drainage 1300 / 1300 Pre-Hospital Gastrojejunostomy 1300 / 1300 Tube Other: # Voids 4 # Incontinent Voids 0 Date of Last Bowel Movement 03/27/18 03/27/18 # Bowel Movements 3 # Incontinent Bowel Movements 1 Narrative: GENERAL: Thin elderly female in No distress. SKIN: Warm and dry.. NECK: Tracheostomy in place with sutures. HEART: RRR no m/r/g/. LUNGS: Lung sounds clear with distant breath sounds, no wheezing. ABDOMEN: G/J tube in place. No surrounding erythema . +BS, soft, NT, ND. EXTREMITIES: No LE edema. Diminished pedal pulses. NEURO: Awake and alert. anxious PSYCH: Depressed mood. - Urinary Catheter Management Female External Cath placed during this visit: no Indwelling Urethral Catheter Cath placed during this visit: yes, but has since been removed by the nurse Reason for continuing: Hourly intake/output Insertion date: 03/06/18 Insertion time: 18:00 Removal date: 03/10/18 Removal time: 17:00 Results - Labs CBC & Chem 7: 03/28/18 04:51 03/26/18 06:28 Laboratory Results - last 24 hr 03/27/18 03/27/18 03/28/18 11:30 18:14 00:28 WBC RBC Hgb Hct MCV MCH MCHC RDW Plt Count MPV Prelim Diff (Auto) WBC Differential Seg Neuts % (Manual) Band Neuts % (Manual) Lymphocytes % (Manual) Monocytes % (Manual) Eosinophils % (Manual) Basophils % (Manual) Metamyelocytes % (Man) Myelocytes % (Man) Promyelocytes % (Man) Abs Neuts (Manual) Differential Comment Platelet Estimate Platelet Morphology Ovalocytes Retic Count Absolute Retic APTT POC Glucose 96 120 H Phosphorus Magnesium Lactate Dehydrogenase TSH Free T4 Hep-Induced Plt Ab Elissa Negative HIPA Patient OD 0.070 03/28/18 03/28/18 03/28/18 04:51 04:51 04:51 WBC 4.0 RBC 3.14 L Hgb 9.0 L D Hct 27.8 L MCV 88.5 MCH 28.8 MCHC 32.5 RDW 21.0 H Plt Count 87 L MPV 9.7 Prelim Diff (Auto) Manual diff required WBC Differential Manual diff final Seg Neuts % (Manual) 52 Band Neuts % (Manual) 4 Lymphocytes % (Manual) 20 Monocytes % (Manual) 6 Eosinophils % (Manual) 9 H Basophils % (Manual) 2 Metamyelocytes % (Man) 1 Myelocytes % (Man) 3 H Promyelocytes % (Man) 3 H Abs Neuts (Manual) 2.5 Differential Comment . Platelet Estimate Low L Platelet Morphology Normal Ovalocytes 1+ H Retic Count 0.4 Absolute Retic 11.3 L APTT POC Glucose Phosphorus 3.0 Magnesium 1.7 Lactate Dehydrogenase 195 TSH 15.300 H Free T4 0.89 Hep-Induced Plt Ab Elissa HIPA Patient OD 03/28/18 03/28/18 04:51 05:36 WBC RBC Hgb Hct MCV MCH MCHC RDW Plt Count MPV Prelim Diff (Auto) WBC Differential Seg Neuts % (Manual) Band Neuts % (Manual) Lymphocytes % (Manual) Monocytes % (Manual) Eosinophils % (Manual) Basophils % (Manual) Metamyelocytes % (Man) Myelocytes % (Man) Promyelocytes % (Man) Abs Neuts (Manual) Differential Comment Platelet Estimate Platelet Morphology Ovalocytes Retic Count Absolute Retic APTT 32.5 H POC Glucose 110 Phosphorus Magnesium Lactate Dehydrogenase TSH Free T4 Hep-Induced Plt Ab Elissa HIPA Patient OD Microbiology 03/27/18 11:30 Blood - Peripheral Aerobic Blood Culture - Preliminary No growth in 1 day 03/27/18 11:30 Blood - Peripheral Anaerobic Blood Culture - Preliminary No growth in 1 day 03/27/18 11:39 Blood - Peripheral Aerobic Blood Culture - Preliminary No growth in 1 day 03/27/18 11:39 Blood - Peripheral Anaerobic Blood Culture - Preliminary No growth in 1 day - Imaging Impressions Liver Ultrasound 03/27/18 00:00 CONCLUSION: 1. Hepatomegaly with increased echotexture characteristic of steatosis or diffuse hepatocellular disease. 2. No evidence of discrete mass or biliary obstructive disease. 3. Status post cholecystectomy. Venous Doppler Study 03/27/18 00:00 CONCLUSION: 1. Acute DVT right lower extremity 2. No evidence of DVT left lower extremity Assessment and Plan - Assessment (1) Acute adjustment disorder with depressed mood Code(s): F43.21 - Adjustment disorder with depressed mood Status: Acute (2) Dysphasia Code(s): R47.02 - Dysphasia Status: Acute (3) Respiratory failure Code(s): J96.90 - Respiratory failure, unspecified, unspecified whether with hypoxia or hypercapnia Status: Acute (4) Protein-calorie malnutrition, severe Code(s): E43 - Unspecified severe protein-calorie malnutrition Status: Chronic (5) Laryngeal squamous cell carcinoma Code(s): C32.9 - Malignant neoplasm of larynx, unspecified Status: Acute (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 1. Acute on chronic respiratory failurecurrently improving and resolved on trach with pulmonology following. - Patient with history of supraglottic laryngeal cancer s/p radiation and chemo resulting in radiation-induced laryngeal scarring and recurrent aspiration - Presented on 03/06 with respiratory distress and saturations in the 50s, intubated emergently by ED physician - Sputum culture 03/08 growing MRSA - S/P treatment for aspiration PNA with Cefepime, Flagyl, and Vancomycin - S/P tracheostomy 03/11 with general surgery - Pulmonology following for trach care - Bronchodilators - On T-piece now with FiO2 28 - Remove sutures 2. Aspiration pneumonia - CXR this AM showing stable appearance of the chest with trach tube and left lower lobe airspace disease - Remains afebrile - Continue Levaquin until 03/29/18 - Supplemental O2 3. Anemia, acute on chronic may be due to chronic kidney disease - Pt with dark output in G-tube noted on 03/21. GI was notified and patient underwent EGD showing radiation telangiectasias in the proximal esophagus, esophageal stricture, inflammatory distal esophageal polyp, normal G-tube placement, and no evidence of blood anywhere in the upper GIT - Stool Hemoccult negative - H&H slowly trending down to 6.8 wit the need for Blood transfusion. - Iron studies with a mixed picture - Normal B12 and folate - Monitor H&H and signs of hemodynamic instability And does not want to pursue further aggressive procedure such as colonoscopy. vascular specialists following, found Hepatomegaly with increased echotexture characteristic of steatosis or diffuse hepatocellular disease and on Venous Doppler study found Acute DVT right lower extremity, no evidence of DVT on left lower extremity, I will Defer this management to Hematology and Oncology due to the high risk for Hemorrhage in this patient. has to be discussed with his son I called his son twice but no answer to Mr. Quinton Juárez to the phone number [phone] but no answer. 4. Thrombocytopenia - Platelets slowly trending down - Down to 79 this AM - Heparin was held due to Anemia and Thrombocytopenia in the past today Hematology plan for anticoagulation. - Follow CBC - No signs of active bleeding 5. Failure to thrive, protein energy malnutrition - Patient with severe pharyngeal dysphagia, esophageal stricture - G/J tube in place flush with 60 cc free water every 8 hours and Vital 1.5 at 55/hr per nutrition recs - G-tube to gravity 5. Chronic systolic heart failure - 2D cho 02/23 showing EF 35% with anterior septal hypokinesis and biatrial dilation - Patient euvolemic on exam - Pt would benefit from an SNEHA-I or ARB as well as spironolactone but BPs have been borderline hypotensive so will hold off for now 6. MRSA/Caitlyn tropicalis UTI - S/P treatment with vancomycin, cefepime, and Diflucan 7. Hypothyroidism - Continue home Levothyroxine 8. Adjustment disorder with depression - Continue Lexapro - Added Wellbutrin 75 mg BID 9. Coccygeal wound - Wound care following, noted new skin tear to left buttock on 03/25 - Calazime BID and PRN for skin tear - Ultrasorb underpad for moisture - Strict Q2H turns from left to right sides only with limited time spent on back for therapies only - Obtain and place patient on Airapy low air loss mattress - Apply OptiFoam adhesive to coccyx wound Q3D and PRN for soiling or dislodgement. 10. GERD, h/o Barretts - Continue PPI DVT prophylaxis: SCDs, holding heparin for anemia and thrombocytopenia Code Status: Full Code Discussed Condition With: Nurse Miss Boudreaux and called her Son twice no answer. Discharge Planning: Patient will need rehab on discharge. Case management assisting with SNF placement, [facility] following Son, ICU PA, requests regular updates. Hoping for acceptance to [facility] Discussed with Dr. Montgomery today who will continue discussion with the son for disposition planning after inpatient rehab. Palliative care now consulted to assess end of life goals (3) Respiratory failure Qualifiers: Chronicity: acute Respiratory failure complication: hypoxia Qualified Code(s ): J96.01 - Acute respiratory failure with hypoxia
--- NOTE | 2018-03-28 16:10 | P.PNONC ---
Subjective Interval history: Late entry, patient seen earlier in the day. Patient lying in bed, in no acute distress. Patient is alert and oriented. She is able to answer my questions with head nods and occasional whispered words.+ Tracheostomy with T-tube in place. She is requesting ice chips. Objective Vital Signs/Intake & Output: Vital Signs 03/27/18 16:00 03/27/18 16:29 03/27/18 20:00 Temperature 97.5 F L 98.3 F Pulse Rate 68 64 Respiratory Rate 14 20 Blood Pressure 100/70 106/51 L Pulse Oximetry 98 97 96 03/28/18 00:00 03/28/18 04:00 03/28/18 04:30 Temperature 97.9 F 97.0 F L Pulse Rate 62 73 Respiratory Rate 20 20 Blood Pressure 93/51 L 102/52 L Pulse Oximetry 95 95 95 03/28/18 10:24 Temperature Pulse Rate Respiratory Rate Blood Pressure Pulse Oximetry 92 L Intake & Output 03/27/18 03/28/18 03/28/18 18:59 06:59 18:59 Intake Total 2800 / 2800 1880 / 1880 Output Total 2800 / 2800 Balance 2800 / 2800 -920 / -920 Weight 69.2 kg Intake: IV 1999 / 1999 1000 / 1000 D5W/Normal Saline Inj 1,000 ML 1999 / 2000 1000 / 1000 @ 84 mls/hr IV.CONT .[id number] [facility] Rx#:[id number] Oral 100 / 100 Tube Feeding 700 / 700 660 / 660 Tube Irrigant 0 / 0 0 / 0 Water Bolus Amount 100 / 100 120 / 120 Output: Urine 1500 / 1500 Emesis 0 / 0 Gastric Drainage 1300 / 1300 Pre-Hospital Gastrojejunostomy 1300 / 1300 Tube Other: # Voids 4 # Incontinent Voids 0 Date of Last Bowel Movement 03/27/18 03/27/18 # Bowel Movements 3 # Incontinent Bowel Movements 1 Result Diagrams: 03/28/18 04:51 03/26/18 06:28 Laboratory Results: Laboratory Results - last 24 hr 03/27/18 03/27/18 03/28/18 11:30 18:14 00:28 WBC RBC Hgb Hct MCV MCH MCHC RDW Plt Count MPV Prelim Diff (Auto) WBC Differential Seg Neuts % (Manual) Band Neuts % (Manual) Lymphocytes % (Manual) Monocytes % (Manual) Eosinophils % (Manual) Basophils % (Manual) Metamyelocytes % (Man) Myelocytes % (Man) Promyelocytes % (Man) Abs Neuts (Manual) Differential Comment Platelet Estimate Platelet Morphology Ovalocytes Retic Count Absolute Retic APTT POC Glucose 96 120 H Phosphorus Magnesium Lactate Dehydrogenase TSH Free T4 Hep-Induced Plt Ab Elissa Negative HIPA Patient OD 0.070 03/28/18 03/28/18 03/28/18 04:51 04:51 04:51 WBC 4.0 RBC 3.14 L Hgb 9.0 L D Hct 27.8 L MCV 88.5 MCH 28.8 MCHC 32.5 RDW 21.0 H Plt Count 87 L MPV 9.7 Prelim Diff (Auto) Manual diff required WBC Differential Manual diff final Seg Neuts % (Manual) 52 Band Neuts % (Manual) 4 Lymphocytes % (Manual) 20 Monocytes % (Manual) 6 Eosinophils % (Manual) 9 H Basophils % (Manual) 2 Metamyelocytes % (Man) 1 Myelocytes % (Man) 3 H Promyelocytes % (Man) 3 H Abs Neuts (Manual) 2.5 Differential Comment . Platelet Estimate Low L Platelet Morphology Normal Ovalocytes 1+ H Retic Count 0.4 Absolute Retic 11.3 L APTT POC Glucose Phosphorus 3.0 Magnesium 1.7 Lactate Dehydrogenase 195 TSH 15.300 H Free T4 0.89 Hep-Induced Plt Ab Elissa HIPA Patient OD 03/28/18 03/28/18 04:51 05:36 WBC RBC Hgb Hct MCV MCH MCHC RDW Plt Count MPV Prelim Diff (Auto) WBC Differential Seg Neuts % (Manual) Band Neuts % (Manual) Lymphocytes % (Manual) Monocytes % (Manual) Eosinophils % (Manual) Basophils % (Manual) Metamyelocytes % (Man) Myelocytes % (Man) Promyelocytes % (Man) Abs Neuts (Manual) Differential Comment Platelet Estimate Platelet Morphology Ovalocytes Retic Count Absolute Retic APTT 32.5 H POC Glucose 110 Phosphorus Magnesium Lactate Dehydrogenase TSH Free T4 Hep-Induced Plt Ab Elissa HIPA Patient OD Culture Results: Microbiology 03/27/18 11:30 Aerobic Blood Culture - Preliminary Blood - Peripheral No growth in 1 day Anaerobic Blood Culture - Preliminary No growth in 1 day 03/27/18 11:39 Aerobic Blood Culture - Preliminary Blood - Peripheral No growth in 1 day Anaerobic Blood Culture - Preliminary No growth in 1 day Imaging Studies: Impressions Liver Ultrasound 03/27/18 00:00 CONCLUSION: 1. Hepatomegaly with increased echotexture characteristic of steatosis or diffuse hepatocellular disease. 2. No evidence of discrete mass or biliary obstructive disease. 3. Status post cholecystectomy. Venous Doppler Study 03/27/18 00:00 CONCLUSION: 1. Acute DVT right lower extremity 2. No evidence of DVT left lower extremity Medications: Active Medications Generic Name Dose Route Start Last Admin Trade Name Freq PRN Reason Stop Dose Admin Acetaminophen 650 mg 03/07/18 08:32 03/27/18 00:01 Tylenol Liq G-TUBE 650 mg Q6H PRN Administration FEVER Albuterol 2.5 mg 03/07/18 00:57 03/21/18 19:22 Albuterol Neb (Prn) NEB 2.5 mg Q2HR NEB PRN Administration SHORTNESS OF BREATH/WHEEZING Artificial Tears 1 drops 03/07/18 09:00 03/28/18 10:46 Genteal Severe Dry Eye Relief 0.3% Opth Gel EACH EYE Not Given Q8H ANN Ascorbic Acid 500 mg 03/08/18 21:00 03/28/18 09:00 Vitamin C G-TUBE 500 mg BID ANN Administration Bupropion HCl 75 mg 03/24/18 10:00 03/28/18 10:47 Wellbutrin PO Not Given BID ANN Cetirizine HCl 10 mg 03/08/18 21:00 03/27/18 20:47 Zyrtec PO 10 mg HS ANN Administration Chlorhexidine Gluconate 15 ml 03/07/18 20:00 03/28/18 10:46 Peridex 0.12% Oral Kit OROPHARYNG Not Given BID@0800,1999 [facility] Escitalopram Oxalate 20 mg 03/09/18 09:00 03/28/18 09:00 Lexapro G-TUBE 20 mg DAILY ANN Administration Heparin Sodium (Porcine) 5,000 units 03/12/18 21:00 03/25/18 11:01 Heparin Inj SQ Not Given Q12HR ANN Hyoscyamine 0.125 mg 03/20/18 10:12 03/27/18 08:31 Levsin Liq SL 0.125 mg Q4H PRN Administration SECRETIONS Dextrose/Sodium Chloride 1,000 mls @ 84 mls/hr 03/24/18 18:00 03/28/18 04:09 D5w/Normal Saline Inj IV.CONT 84 mls/hr .[id number] ANN Administration Insulin Aspart 0 unit 03/08/18 18:00 03/28/18 11:24 Novolog Insulin Correctional Sugar Inj SQ Not Given Q6HR [facility] Protocol Lactulose 30 ml 03/11/18 21:00 03/28/18 09:12 Lactulose Liq PO Not Given BID [facility] Levofloxacin 250 mg 03/20/18 11:00 03/28/18 10:48 Levaquin PO 250 mg DAILY@1100 [facility] Administration Levothyroxine Sodium 100 mcg 03/09/18 06:00 03/28/18 05:32 Synthroid NG/OG 100 mcg DAILY@0600 [facility] Administration Morphine Sulfate 2 mg 03/24/18 14:30 03/28/18 12:40 Morphine Inj IV.PUSH 2 mg Q4H PRN Administration PAIN SCALE 1 TO 10 Multivitamins 1 tab 03/09/18 09:00 03/28/18 09:00 Theragran NG/OG 1 tab DAILY [facility] Administration Mupirocin 1 applicatio 03/11/18 21:00 03/28/18 10:46 Bactroban 2% Nasal Oint EACH NARE Not Given BID [facility] Ondansetron HCl 4 mg 03/15/18 10:59 03/27/18 21:41 Zofran Odt SL 4 mg Q6H PRN Administration NAUSEA Oxycodone HCl 5 mg 03/22/18 22:24 03/28/18 10:49 Roxicodone Intensol Liq G-TUBE 5 mg Q4H PRN Administration PAIN 6-10 Pantoprazole Sodium 40 mg 03/21/18 14:00 03/28/18 01:42 Protonix Inj IV.PUSH 40 mg Q12H [facility] Administration Polyethylene Glycol 17 gm 03/11/18 21:00 03/28/18 09:00 Miralax PO 17 gm BID [facility] Administration Potassium Bicarb/Potassium Chloride 25 meq 03/24/18 09:00 03/28/18 09:00 K-Lyte Cl Eff J-TUBE 25 meq DAILY [facility] Administration Senna/Docusate Sodium 1 tab 03/07/18 09:00 03/28/18 10:47 Emmie-Colace PO Not Given BID [facility] Sodium Chloride 2 ml 03/07/18 09:00 03/28/18 09:00 Ns Flush IV.FLUSH 2 ml BID ANN Administration Sodium Chloride 2 ml 03/07/18 00:57 03/26/18 04:51 Ns Flush IV.FLUSH 2 ml PRN PRN Administration FLUSH AFTER USING IV ACCESS Sterile Water 60 ml 03/07/18 14:00 03/28/18 05:32 Free Water J-TUBE 60 ml Q8HR ANN Administration Zinc Sulfate 220 mg 03/09/18 09:00 03/28/18 09:00 Zinc-220 NG/OG 220 mg DAILY ANN Administration Objective Remarks: GENERAL: Cachectic elderly female patient, lying in bed. In no acute distress. SKIN: Pale, warm and dry. HEAD: Normocephalic. EYES: No scleral icterus. No injection or drainage. NECK: Supple, trachea midline. Tracheostomy with T-tube attached. CARDIOVASCULAR: Regular rate and rhythm without murmurs. RESPIRATORY: Anterior breath sounds distant, equal bilaterally. No accessory muscle use. GASTROINTESTINAL: Abdomen soft, tender, nondistended. Steri-Strips clean/ intact to RUQ, PEG tube to LUQ EXTREMITIES: No cyanosis, or edema. MUSCULOSKELETAL: Adequate muscle tone. NEUROLOGICAL: No obvious focal deficit. Awake, alert, and oriented x3. PSYCHIATRIC: Appropriate mood and affect; insight and judgment normal. Assessment/Plan - Plan Ms. Henson is a 73-year-old woman with history of head and neck cancer. She was initially diagnosed in 2014. Her followup has not been consistent. She is well known patient to Dr. Gopal Pineda, who saw her in January of this year for the anemia. Hematology/oncology is consulted again for the anemia. Plan: 1. Anemia. Hemoglobin 9.0 today, status post 2 units of PRBCs yesterday. No obvious signs of bleeding noted. 2. Heparin-induced platelet Nikkie negative, HIPA 0.07. 3. Continue to monitor CBC. Transfuse as necessary. - Attending Statement The exam, history, and the medical decision-making described in the above note were completed with the assistance of the mid-level provider. I reviewed and agree with the findings presented. I attest that I had a [id number] encounter with the patient on the same day, and personally performed and documented my assessment and findings in the medical record. Pt is awake and alert. No new c/o. D/W Dr Jacques who saw the pt yesterday. She has talk to her son. Consult IR for BM bx to evaluate for some underlying bone marrow path.
--- NOTE | 2018-03-28 16:26 | XR ---
EXAM DATE: 03/28/2018 4:17 PM EDT AGE/SEX: 73 years / Female INDICATIONS: Distention. CLINICAL DATA: This is the patient's subsequent encounter. Patient reports that signs and symptoms h ave been present for 3 days and indicates a pain score of Nonresponsive. MEDICAL/SURGICAL HISTORY: . Gastroesophageal reflux disease. Hypothyroidism. Arthritis. Ralph t's esophagus. Skin cancer. 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 . Cholecystectomy. Tonsillectomy. Colonoscopy. Esophageal dilation. EGD. Hernia repair. Oral surgery. Adenoidectomy. COMPARISON: [facility], ABDOMEN 1V KUB, 03/12/2018. . FINDINGS: Bowel gas pattern is nonspecific without evidence for obstruction or free air. G-tube present. Moder ate degenerative change in the spine. CONCLUSION: No acute findings. Electronically signed by: Alireza Leger MD 03/28/2018 4:25 PM EDT
[2018-03-28 17:01] LABS: Hemoglobin A1c 6.1 % (4.3-6.0)
--- NOTE | 2018-03-28 19:22 | P.PN ---
Subjective Interval history: She is alert and has copious secretions from trach. No fever. Physical Exam Vital signs: Vital Signs 03/27/18 20:00 03/28/18 00:00 03/28/18 04:00 Temperature 98.3 F 97.9 F 97.0 F L Pulse Rate 64 62 73 Respiratory Rate 20 20 20 Blood Pressure 106/51 L 93/51 L 102/52 L Pulse Oximetry 96 95 95 03/28/18 04:30 03/28/18 08:00 03/28/18 10:24 Temperature 98.3 F Pulse Rate 84 Respiratory Rate 14 Blood Pressure 88/40 L Pulse Oximetry 95 94 L 92 L 03/28/18 12:00 03/28/18 16:00 03/28/18 17:55 Temperature 98.9 F 98.7 F Pulse Rate 74 100 H Respiratory Rate 16 14 18 Blood Pressure 90/54 L 90/48 L Pulse Oximetry 95 95 Intake & Output 03/28/18 03/28/18 03/29/18 06:59 18:59 06:59 Intake Total 1880 / 1880 2160 / 2160 Output Total 2800 / 2800 2850 / 2850 Balance -920 / -920 -690 / -690 Weight 69.2 kg Intake: IV 1000 / 1000 1300 / 1300 D5W/Normal Saline Inj 1,000 ML 1000 / 1000 1300 / 1300 @ 84 mls/hr IV.CONT .[id number] [facility] Rx#:[id number] Oral 100 / 100 Tube Feeding 660 / 660 660 / 660 Tube Irrigant 0 / 0 Water Bolus Amount 120 / 120 200 / 200 Output: Urine 1500 / 1500 750 / 750 Emesis 0 / 0 Gastric Drainage 1300 / 1300 2100 / 2100 Pre-Hospital Gastrojejunostomy 1300 / 1300 2100 / 2100 Tube Other: # Voids 2 # Incontinent Voids 0 Date of Last Bowel Movement 03/27/18 03/28/18 Narrative: GENERAL: Thin elderly lady in No distress. SKIN: Warm and dry. NECK: Tracheostomy in place. Secretions noted. HEART: RRR no m/r/g/. LUNGS: Lung sounds clear with distant breath sounds, no wheezing. ABDOMEN: G/J tube in place. has large drainage from G Tube. No surrounding erythema . +BS, soft, NT, ND. EXTREMITIES: No LE edema. Diminished pedal pulses. NEURO: Awake and alert. anxious PSYCH: Depressed mood. - Urinary Catheter Management Female External Cath placed during this visit: no Indwelling Urethral Catheter Cath placed during this visit: yes, but has since been removed by the nurse Reason for continuing: Hourly intake/output Insertion date: 03/06/18 Insertion time: 18:00 Removal date: 03/10/18 Removal time: 17:00 Results - Labs CBC & Chem 7: 03/28/18 04:51 03/26/18 06:28 Laboratory Results - last 24 hr 03/27/18 03/28/18 03/28/18 11:30 00:28 04:51 WBC 4.0 RBC 3.14 L Hgb 9.0 L D Hct 27.8 L MCV 88.5 MCH 28.8 MCHC 32.5 RDW 21.0 H Plt Count 87 L MPV 9.7 Prelim Diff (Auto) Manual diff required WBC Differential Manual diff final Seg Neuts % (Manual) 52 Band Neuts % (Manual) 4 Lymphocytes % (Manual) 20 Monocytes % (Manual) 6 Eosinophils % (Manual) 9 H Basophils % (Manual) 2 Metamyelocytes % (Man) 1 Myelocytes % (Man) 3 H Promyelocytes % (Man) 3 H Abs Neuts (Manual) 2.5 Differential Comment . Platelet Estimate Low L Platelet Morphology Normal Ovalocytes 1+ H Retic Count Absolute Retic APTT POC Glucose 120 H Hemoglobin A1c Phosphorus Magnesium Lactate Dehydrogenase TSH Free T4 Hep-Induced Plt Ab Elissa Negative HIPA Patient OD 0.070 03/28/18 03/28/18 03/28/18 04:51 04:51 04:51 WBC RBC Hgb Hct MCV MCH MCHC RDW Plt Count MPV Prelim Diff (Auto) WBC Differential Seg Neuts % (Manual) Band Neuts % (Manual) Lymphocytes % (Manual) Monocytes % (Manual) Eosinophils % (Manual) Basophils % (Manual) Metamyelocytes % (Man) Myelocytes % (Man) Promyelocytes % (Man) Abs Neuts (Manual) Differential Comment Platelet Estimate Platelet Morphology Ovalocytes Retic Count 0.4 Absolute Retic 11.3 L APTT POC Glucose Hemoglobin A1c 6.1 H Phosphorus 3.0 Magnesium 1.7 Lactate Dehydrogenase 195 TSH 15.300 H Free T4 0.89 Hep-Induced Plt Ab Elissa HIPA Patient OD 08/10/18 08/10/18 04:51 05:36 WBC RBC Hgb Hct MCV MCH MCHC RDW Plt Count MPV Prelim Diff (Auto) WBC Differential Seg Neuts % (Manual) Band Neuts % (Manual) Lymphocytes % (Manual) Monocytes % (Manual) Eosinophils % (Manual) Basophils % (Manual) Metamyelocytes % (Man) Myelocytes % (Man) Promyelocytes % (Man) Abs Neuts (Manual) Differential Comment Platelet Estimate Platelet Morphology Ovalocytes Retic Count Absolute Retic APTT 32.5 H POC Glucose 110 Hemoglobin A1c Phosphorus Magnesium Lactate Dehydrogenase TSH Free T4 Hep-Induced Plt Ab Elissa HIPA Patient OD Microbiology 03/27/18 11:30 Blood - Peripheral Aerobic Blood Culture - Preliminary No growth in 1 day 03/27/18 11:30 Blood - Peripheral Anaerobic Blood Culture - Preliminary No growth in 1 day 03/27/18 11:39 Blood - Peripheral Aerobic Blood Culture - Preliminary No growth in 1 day 03/27/18 11:39 Blood - Peripheral Anaerobic Blood Culture - Preliminary No growth in 1 day - Imaging Impressions Liver Ultrasound 03/27/18 00:00 CONCLUSION: 1. Hepatomegaly with increased echotexture characteristic of steatosis or diffuse hepatocellular disease. 2. No evidence of discrete mass or biliary obstructive disease. 3. Status post cholecystectomy. Venous Doppler Study 03/27/18 00:00 CONCLUSION: 1. Acute DVT right lower extremity 2. No evidence of DVT left lower extremity Abdomen X-Ray 03/28/18 00:00 CONCLUSION: No acute findings. 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 Leave on T Bar 28 % FIO2 2. Trach care and lavage PRN 3. Continue Duo nebs q6h 4. PT evaluation to help activity 5. Will use a PM Valve to talk. 6. Add levsin .125 mg TID S/L 7. Tube feeds at 60 CC. (7) Aspiration pneumonia Qualifiers: Aspiration pneumonia type: unspecified Laterality: unspecified laterality Lung location: unspecified part of lung Qualified Code(s): J69.0 - Pneumonitis due to inhalation of food and vomit
[2018-03-28] MEDS: Docusate Sodium Liq 100 MG/10 ML UDC NG/OG SCH (20:51)
[2018-03-28] MEDS: buPROPion 75 MG Tablet NG/OG SCH (20:52)
[2018-03-28] MEDS: Enoxaparin Inj 80 MG/0.8 ML Syringe SQ SCH (21:00)
[2018-03-29] MEDS: Pantoprazole Inj 40 MG Vial IV.PUSH SCH ×2 (02:07→14:00)
[2018-03-29] MEDS: Insulin NovoLOG Aspart Correctional Sugar Inj SQ SCH ×4 (02:07→17:24)
[2018-03-29] MEDS: Oral Hygiene Kit OROPHARYNG SCH ×4 (02:07→17:22)
[2018-03-29] MEDS: Morphine Inj 4 MG/ML Vial IV.PUSH PRN ×3 (02:08→17:24)
[2018-03-29] MEDS: Levothyroxine 100 MCG Tablet NG/OG SCH (05:00)
[2018-03-29] MEDS: Dextrose 5%/NaCl 0.9% Inj 1,000 ML IV.CONT SCH ×3 (05:02→20:00)
[2018-03-29 06:07] LABS: Baso # (Auto) 0.2 th/mm3 (0.0-0.2); Baso % (Auto) 5.6 % (0.0-2.0); Eos % (Auto) 0.4 % (0.0-4.0); Hematocrit 25.2 % (35.0-46.0); Hemoglobin 8.4 gm/dL (11.6-15.3); Lymph # (Auto) 0.8 th/mm3 (1.0-4.8); Lymph % (Auto) 20.2 % (9.0-44.0); Mean Corpuscular HGB Conc 33.3 % (32.0-36.0); Mean Corpuscular Volume 87.3 fL (80.0-100.0); Mean Platelet Volume 9.3 fL (7.0-11.0); Mono # (Auto) 0.2 th/mm3 (0.0-0.9); Mono % (Auto) 4.1 % (0.0-8.0); Neut # (Auto) 2.6 th/mm3 (1.8-7.7); Neut % (Auto) 69.7 % (16.0-70.0); Platelet Count 90 th/mm3 (150-450); Red Blood Count 2.89 mil/mm3 (4.00-5.30); Red Cell Distribution Width 20.6 % (11.6-17.2); White Blood Count 3.7 th/mm3 (4.0-11.0)
[2018-03-29 06:23] LABS: Albumin 1.6 g/dL (3.4-5.0); Anion Gap 6 meq/L (5-15); Aspartate Aminotransferase 29 U/L (15-37); Blood Urea Nitrogen 28 mg/dL (7-18); Calcium 7.6 mg/dL (8.5-10.1); Carbon Dioxide 24.8 meq/L (21.0-32.0); Chloride 115 meq/L (98-107); Glomerular Filtration Rate 48 mL/min (>89); Glucose,Random 88 mg/dL (74-106); Potassium 4.9 meq/L (3.5-5.1); Sodium 146 meq/L (136-145)
[2018-03-29 06:24] LABS: Alanine Aminotransferase 28 U/L (10-53)
[2018-03-29 06:28] LABS: Alkaline Phosphatase 110 U/L (45-117)
--- NOTE | 2018-03-29 07:51 | P.PNIM ---
Subjective Interval history: in no acute distress. denies pain. low grade fever earlier today. otherwise no new complaints. Physical Exam Vital signs: Vital Signs 03/28/18 08:00 03/28/18 10:24 03/28/18 12:00 Temperature 98.3 F 98.9 F Pulse Rate 84 74 Respiratory Rate 14 16 Blood Pressure 88/40 L 90/54 L Pulse Oximetry 94 L 92 L 95 03/28/18 16:00 03/28/18 17:55 03/28/18 20:00 Temperature 98.7 F 99.7 F H Pulse Rate 100 H 60 Respiratory Rate 14 18 20 Blood Pressure 90/48 L 114/52 L Pulse Oximetry 95 94 L 03/28/18 21:00 03/28/18 21:47 03/29/18 00:00 Temperature 100.2 F H Pulse Rate 74 Respiratory Rate 20 20 Blood Pressure 118/50 L Pulse Oximetry 94 L 92 L 03/29/18 04:00 03/29/18 04:21 Temperature 99.6 F Pulse Rate 62 65 Respiratory Rate 20 20 Blood Pressure 112/55 L Pulse Oximetry 100 Intake & Output 03/28/18 03/29/18 03/29/18 18:59 06:59 18:59 Intake Total 2160 / 2160 2060 / 2060 Output Total 2850 / 2850 1800 / 1800 Balance -690 / -690 260 / 260 Weight 73.4 kg Intake: IV 1300 / 1300 1000 / 1000 D5W/Normal Saline Inj 1,000 ML 1300 / 1300 1000 / 1000 @ 84 mls/hr IV.CONT .[id number] [facility] Rx#:[id number] Oral 200 / 200 Tube Feeding 660 / 660 660 / 660 Tube Irrigant 0 / 0 Water Bolus Amount 200 / 200 200 / 200 Output: Urine 750 / 750 800 / 800 Emesis 0 / 0 Gastric Drainage 2100 / 2100 1000 / 1000 Pre-Hospital Gastrojejunostomy 2100 / 2100 1000 / 1000 Tube Other: # Voids 2 Date of Last Bowel Movement 03/28/18 03/28/18 - Constitutional no acute distress - Routine Respiratory Exam Present: CTA bilaterally - Routine Cardiovascular Exam Present: RRR - Routine Abdominal Exam Present: soft (no pedal edema.) Comments: mild erythema around the feeding tube with no tenderness. - Routine Neurological Exam Present: alert - Urinary Catheter Management Female External Cath placed during this visit: no Indwelling Urethral Catheter Cath placed during this visit: yes, but has since been removed by the nurse Reason for continuing: Hourly intake/output Insertion date: 03/06/18 Insertion time: 18:00 Removal date: 03/10/18 Removal time: 17:00 Results - Labs CBC & Chem 7: 03/29/18 05:43 03/29/18 05:43 Laboratory Results - last 24 hr 03/26/18 03/27/18 03/28/18 09:40 11:30 04:51 WBC RBC Hgb Hct MCV MCH MCHC RDW Plt Count MPV Prelim Diff (Auto) Neut % (Auto) Lymph % (Auto) Smith % (Auto) Eos % (Auto) Baso % (Auto) Neut # (Auto) Lymph # (Auto) Smith # (Auto) Eos # (Auto) Baso # (Auto) WBC Differential Manual diff final Seg Neuts % (Manual) 52 Band Neuts % (Manual) 4 Lymphocytes % (Manual) 20 Monocytes % (Manual) 6 Eosinophils % (Manual) 9 H Basophils % (Manual) 2 Metamyelocytes % (Man) 1 Myelocytes % (Man) 3 H Promyelocytes % (Man) 3 H Abs Neuts (Manual) 2.5 Differential Comment Platelet Estimate Low L Platelet Morphology Normal Ovalocytes 1+ H Sodium Potassium Chloride Carbon Dioxide Anion Gap BUN Creatinine Estimated GFR POC Glucose Random Glucose Hemoglobin A1c Calcium Total Bilirubin AST ALT Alkaline Phosphatase Total Protein Albumin Hep-Induced Plt Ab Elissa Negative HIPA Patient OD 0.070 MTS Gel Crossmatch See Detail 03/28/18 03/28/18 03/29/18 04:51 23:52 05:43 WBC 3.7 L RBC 2.89 L Hgb 8.4 L Hct 25.2 L MCV 87.3 MCH 29.0 MCHC 33.3 RDW 20.6 H Plt Count 90 L MPV 9.3 Prelim Diff (Auto) Slide review pending Neut % (Auto) 69.7 Lymph % (Auto) 20.2 Smith % (Auto) 4.1 Eos % (Auto) 0.4 Baso % (Auto) 5.6 H Neut # (Auto) 2.6 Lymph # (Auto) 0.8 L Smith # (Auto) 0.2 Eos # (Auto) 0.0 Baso # (Auto) 0.2 WBC Differential Seg Neuts % (Manual) Band Neuts % (Manual) Lymphocytes % (Manual) Monocytes % (Manual) Eosinophils % (Manual) Basophils % (Manual) Metamyelocytes % (Man) Myelocytes % (Man) Promyelocytes % (Man) Abs Neuts (Manual) Differential Comment . Platelet Estimate Platelet Morphology Ovalocytes Sodium Potassium Chloride Carbon Dioxide Anion Gap BUN Creatinine Estimated GFR POC Glucose 118 H Random Glucose Hemoglobin A1c 6.1 H Calcium Total Bilirubin AST ALT Alkaline Phosphatase Total Protein Albumin Hep-Induced Plt Ab Elissa HIPA Patient OD MTS Gel Crossmatch 03/29/18 05:43 WBC RBC Hgb Hct MCV MCH MCHC RDW Plt Count MPV Prelim Diff (Auto) Neut % (Auto) Lymph % (Auto) Smith % (Auto) Eos % (Auto) Baso % (Auto) Neut # (Auto) Lymph # (Auto) Smith # (Auto) Eos # (Auto) Baso # (Auto) WBC Differential Seg Neuts % (Manual) Band Neuts % (Manual) Lymphocytes % (Manual) Monocytes % (Manual) Eosinophils % (Manual) Basophils % (Manual) Metamyelocytes % (Man) Myelocytes % (Man) Promyelocytes % (Man) Abs Neuts (Manual) Differential Comment Platelet Estimate Platelet Morphology Ovalocytes Sodium 146 H Potassium 4.9 Chloride 115 H Carbon Dioxide 24.8 Anion Gap 6 BUN 28 H Creatinine 1.12 H Estimated GFR 48 L POC Glucose Random Glucose 88 Hemoglobin A1c Calcium 7.6 L Total Bilirubin 0.4 AST 29 ALT 28 Alkaline Phosphatase 110 Total Protein 5.0 L Albumin 1.6 L Hep-Induced Plt Ab Elissa HIPA Patient OD MTS Gel Crossmatch Microbiology 03/27/18 11:30 Blood - Peripheral Aerobic Blood Culture - Preliminary No growth in 1 day 03/27/18 11:30 Blood - Peripheral Anaerobic Blood Culture - Preliminary No growth in 1 day 03/27/18 11:39 Blood - Peripheral Aerobic Blood Culture - Preliminary No growth in 1 day 03/27/18 11:39 Blood - Peripheral Anaerobic Blood Culture - Preliminary No growth in 1 day - Imaging Impressions Abdomen X-Ray 03/28/18 00:00 CONCLUSION: No acute findings. Assessment and Plan - Assessment (1) Acute adjustment disorder with depressed mood Code(s): F43.21 - Adjustment disorder with depressed mood Status: Acute (2) Dysphasia Code(s): R47.02 - Dysphasia Status: Acute (3) Respiratory failure Code(s): J96.90 - Respiratory failure, unspecified, unspecified whether with hypoxia or hypercapnia Status: Acute (4) Protein-calorie malnutrition, severe Code(s): E43 - Unspecified severe protein-calorie malnutrition Status: Chronic (5) Laryngeal squamous cell carcinoma Code(s): C32.9 - Malignant neoplasm of larynx, unspecified Status: Acute (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 1. Acute on chronic respiratory failurecurrently improving and resolved on trach with pulmonology following. - Patient with history of supraglottic laryngeal cancer s/p radiation and chemo resulting in radiation-induced laryngeal scarring and recurrent aspiration - Presented on 03/06 with respiratory distress and saturations in the 50s, intubated emergently by ED physician - Sputum culture 03/08 growing MRSA - S/P treatment for aspiration PNA with Cefepime, Flagyl, and Vancomycin - S/P tracheostomy 03/11 with general surgery - Pulmonology following for trach care - Bronchodilators - On T-piece now with FiO2 28 2. Aspiration pneumonia - Continue Levaquin until 03/29/18 - Supplemental O2 3. Anemia, acute on chronic may be due to chronic kidney disease - Pt with dark output in G-tube noted on 03/21. GI was notified and patient underwent EGD showing radiation telangiectasias in the proximal esophagus, esophageal stricture, inflammatory distal esophageal polyp, normal G-tube placement, and no evidence of blood anywhere in the upper GIT - Stool Hemoccult negative - Iron studies with a mixed picture - Normal B12 and folate - Monitor H&H and signs of hemodynamic instability 4. Thrombocytopenia - Follow CBC - No signs of active bleeding -hematology following; IR consulted for BM biopsy. 5. Failure to thrive, protein energy malnutrition - Patient with severe pharyngeal dysphagia, esophageal stricture - G/J tube in place flush with 60 cc free water every 8 hours and Vital 1.5 at 55/hr per nutrition recs - G-tube to gravity 5. Chronic systolic heart failure - 2D cho 02/23 showing EF 35% with anterior septal hypokinesis and biatrial dilation - Patient euvolemic on exam - Pt would benefit from an SNEHA-I or ARB as well as spironolactone but BPs have been borderline hypotensive so will hold off for now 6. MRSA/Caitlyn tropicalis UTI - S/P treatment with vancomycin, cefepime, and Diflucan 7. Hypothyroidism - Continue home Levothyroxine 8. Adjustment disorder with depression - Continue Lexapro - Added Wellbutrin 75 mg BID 9. Coccygeal wound - Wound care following, noted new skin tear to left buttock on 03/25 - Calazime BID and PRN for skin tear - Ultrasorb underpad for moisture - Strict Q2H turns from left to right sides only with limited time spent on back for therapies only - Obtain and place patient on Airapy low air loss mattress - Apply OptiFoam adhesive to coccyx wound Q3D and PRN for soiling or dislodgement. 10. GERD, h/o Barretts - Continue PPI 11- DVT of the right lower extremities - continue subq Lovenox -hematology following. Code Status: Full Code Discharge Planning: case management notes reviewed; [facility] is following. (3) Respiratory failure Qualifiers: Chronicity: acute Respiratory failure complication: hypoxia Qualified Code(s ): J96.01 - Acute respiratory failure with hypoxia
[2018-03-29 08:40] LABS: Eosinophils 9 % (0-4); Lymphocytes 21 % (9-44); Metamyelocytes 1 % (0-1); Monocytes 13 % (0-8); Myelocytes 6 % (0-0); Platelet Morphology Normal (Normal)
[2018-03-29] MEDS: Potassium Chloride 25 MEQ Effervescent Tablet J-TUBE SCH (09:51)
[2018-03-29] MEDS: Docusate Sodium Liq 100 MG/10 ML UDC NG/OG SCH ×2 (09:51→21:00)
[2018-03-29] MEDS: Enoxaparin Inj 80 MG/0.8 ML Syringe SQ SCH ×2 (09:51→21:00)
[2018-03-29] MEDS: Polyethylene Glycol 3350 17 GM Packet NG/OG SCH ×2 (09:52→21:00)
[2018-03-29] MEDS: Ascorbic Acid 500 MG Tablet G-TUBE SCH ×2 (09:53→21:00)
[2018-03-29] MEDS: buPROPion 75 MG Tablet NG/OG SCH ×2 (09:53→21:00)
[2018-03-29] MEDS: Simethicone 125 MG Chew Tablet NG/OG PRN (09:55)
[2018-03-29] MEDS: Glycopyrrolate 0.2 MG/ML Vial IV.PUSH PRN (09:55)
[2018-03-29] MEDS: levoFLOXacin Liq 25 MG/ML 100 ML Bottle NG/OG SCH (11:00)
[2018-03-29] MEDS: Chlorhexidine 0.12% Oral Kit 15 ML UDC OROPHARYNG SCH (15:22)
[2018-03-29] MEDS ORDERED: Acetaminophen 325 MG Tablet PO PRN (16:32)
--- NOTE | 2018-03-29 16:56 | P.PNONC ---
Subjective Interval history: T max 100.2 overnight Pt sitting up in stretcher chair in no apparent distress No bleeding since starting the Lovenox Objective Vital Signs/Intake & Output: Vital Signs 03/28/18 17:55 03/28/18 20:00 03/28/18 21:00 Temperature 99.7 F H Pulse Rate 60 Respiratory Rate 18 20 20 Blood Pressure 114/52 L Pulse Oximetry 94 L 03/28/18 21:47 03/29/18 00:00 03/29/18 04:00 Temperature 100.2 F H Pulse Rate 74 62 Respiratory Rate 20 20 Blood Pressure 118/50 L Pulse Oximetry 94 L 92 L 03/29/18 04:21 03/29/18 08:00 03/29/18 08:40 Temperature 99.6 F 99.4 F Pulse Rate 65 66 Respiratory Rate 20 20 Blood Pressure 112/55 L 105/55 L Pulse Oximetry 100 94 L 93 L 03/29/18 12:00 03/29/18 14:10 Temperature 99.1 F Pulse Rate 78 Respiratory Rate 22 18 Blood Pressure 100/52 L Pulse Oximetry 96 Intake & Output 03/28/18 03/29/18 03/29/18 18:59 06:59 18:59 Intake Total 2160 / 2160 2060 / 2060 Output Total 2850 / 2850 1800 / 1800 150 / 150 Balance -690 / -690 260 / 260 -150 / -150 Weight 161 lb 13.109 oz Intake: IV 1300 / 1300 1000 / 1000 D5W/Normal Saline Inj 1,000 ML 1300 / 1300 1000 / 1000 @ 84 mls/hr IV.CONT .[id number] [facility] Rx#:[id number] Oral 200 / 200 Tube Feeding 660 / 660 660 / 660 Tube Irrigant 0 / 0 Water Bolus Amount 200 / 200 200 / 200 Output: Urine 750 / 750 800 / 800 150 / 150 Emesis 0 / 0 Gastric Drainage 2099 / 2099 1000 / 1000 Pre-Hospital Gastrojejunostomy 2100 / 2100 1000 / 1000 Tube Other: # Voids 2 Date of Last Bowel Movement 03/28/18 03/28/18 03/28/18 Result Diagrams: 03/29/18 05:43 03/29/18 05:43 Laboratory Results: Laboratory Results - last 24 hr 03/26/18 03/28/18 03/28/18 09:40 04:51 23:52 WBC RBC Hgb Hct MCV MCH MCHC RDW Plt Count MPV Prelim Diff (Auto) Neut % (Auto) Lymph % (Auto) [place] % (Auto) Eos % (Auto) Baso % (Auto) Neut # (Auto) Lymph # (Auto) [place] # (Auto) Eos # (Auto) Baso # (Auto) WBC Differential Seg Neuts % (Manual) Band Neuts % (Manual) Lymphocytes % (Manual) Monocytes % (Manual) Eosinophils % (Manual) Basophils % (Manual) Metamyelocytes % (Man) Myelocytes % (Man) Abs Neuts (Manual) Differential Comment Platelet Estimate Platelet Morphology Sodium Potassium Chloride Carbon Dioxide Anion Gap BUN Creatinine Estimated GFR POC Glucose 118 H Random Glucose Hemoglobin A1c 6.1 H Calcium Total Bilirubin AST ALT Alkaline Phosphatase Total Protein Albumin MTS Gel Crossmatch See Detail 03/29/18 03/29/18 05:43 05:43 WBC 3.7 L RBC 2.89 L Hgb 8.4 L Hct 25.2 L MCV 87.3 MCH 29.0 MCHC 33.3 RDW 20.6 H Plt Count 90 L MPV 9.3 Prelim Diff (Auto) Slide review pending Neut % (Auto) 69.7 Lymph % (Auto) 20.2 Lincoln % (Auto) 4.1 Eos % (Auto) 0.4 Baso % (Auto) 5.6 H Neut # (Auto) 2.6 Lymph # (Auto) 0.8 L [place] # (Auto) 0.2 Eos # (Auto) 0.0 Baso # (Auto) 0.2 WBC Differential Manual diff final Seg Neuts % (Manual) 42 Band Neuts % (Manual) 7 H Lymphocytes % (Manual) 21 Monocytes % (Manual) 13 H Eosinophils % (Manual) 9 H Basophils % (Manual) 1 Metamyelocytes % (Man) 1 Myelocytes % (Man) 6 H Abs Neuts (Manual) 2.1 Differential Comment . Platelet Estimate Low L Platelet Morphology Normal Sodium 146 H Potassium 4.9 Chloride 115 H Carbon Dioxide 24.8 Anion Gap 6 BUN 28 H Creatinine 1.12 H Estimated GFR 48 L POC Glucose Random Glucose 88 Hemoglobin A1c Calcium 7.6 L Total Bilirubin 0.4 AST 29 ALT 28 Alkaline Phosphatase 110 Total Protein 5.0 L Albumin 1.6 L MTS Gel Crossmatch Culture Results: Microbiology 03/27/18 11:30 Aerobic Blood Culture - Preliminary Blood - Peripheral No growth in 2 days Anaerobic Blood Culture - Preliminary No growth in 2 days 03/27/18 11:39 Aerobic Blood Culture - Preliminary Blood - Peripheral No growth in 2 days Anaerobic Blood Culture - Preliminary No growth in 2 days Imaging Studies: Impressions Abdomen X-Ray 03/28/18 00:00 CONCLUSION: No acute findings. Medications: Active Medications Generic Name Dose Route Start Last Admin Trade Name Freq PRN Reason Stop Dose Admin Acetaminophen 650 mg 03/07/18 08:32 03/27/18 00:01 Tylenol Liq G-TUBE 650 mg Q6H PRN Administration FEVER Albuterol 2.5 mg 03/07/18 00:57 03/21/18 19:22 Albuterol Neb (Prn) NEB 2.5 mg Q2HR NEB PRN Administration SHORTNESS OF BREATH/WHEEZING Ascorbic Acid 500 mg 03/08/18 21:00 03/29/18 09:53 Vitamin C G-TUBE 500 mg BID ANN Administration Bupropion HCl 75 mg 03/28/18 21:00 03/29/18 09:53 Wellbutrin NG/OG 75 mg BID ANN Administration Cetirizine HCl 10 mg 03/28/18 21:00 03/28/18 20:52 Zyrtec NG/OG 10 mg HS ANN Administration Chlorhexidine Gluconate 15 ml 03/07/18 20:00 03/29/18 15:22 Peridex 0.12% Oral Kit OROPHARYNG 15 ml BID@0800,2000 ANN Administration Docusate Sodium 100 mg 03/28/18 21:00 03/29/18 09:51 Colace Liq NG/OG 100 mg BID ANN Administration Enoxaparin Sodium 70 mg 03/28/18 21:00 03/29/18 09:51 Lovenox Inj SQ 70 mg Q12HR ANN Administration Escitalopram Oxalate 20 mg 03/09/18 09:00 03/29/18 09:51 Lexapro G-TUBE 20 mg DAILY ANN Administration Glycopyrrolate 0.4 mg 03/21/18 16:16 03/29/18 09:55 Robinul Inj IV.PUSH 0.4 mg Q8H PRN Administration thick secretions Hyoscyamine 0.125 mg 03/20/18 10:12 03/27/18 08:31 Levsin Liq SL 0.125 mg Q4H PRN Administration SECRETIONS Hyoscyamine 0.125 mg 03/28/18 17:00 03/29/18 11:00 Levsin PO 0.125 mg Q6H ANN Administration Dextrose/Sodium Chloride 1,000 mls @ 84 mls/hr 03/24/18 18:00 03/29/18 05:02 D5w/Normal Saline Inj IV.CONT 84 mls/hr .[id number] ANN Administration Insulin Aspart 0 unit 03/08/18 18:00 03/29/18 12:00 Novolog Insulin Correctional Sugar Inj SQ Not Given Q6HR [facility] Protocol Levofloxacin 250 mg 03/29/18 11:00 03/29/18 11:00 Levaquin NG/OG 250 mg DAILY@1100 [facility] Administration Levothyroxine Sodium 100 mcg 03/09/18 06:00 03/29/18 05:00 Synthroid NG/OG 100 mcg DAILY@0600 [facility] Administration Morphine Sulfate 2 mg 03/24/18 14:30 03/29/18 09:54 Morphine Inj IV.PUSH 2 mg Q4H PRN Administration PAIN SCALE 1 TO 10 Multivitamins 1 tab 03/09/18 09:00 03/29/18 09:53 Theragran NG/OG 1 tab DAILY [facility] Administration Ondansetron HCl 4 mg 03/15/18 10:59 03/27/18 21:41 Zofran Odt SL 4 mg Q6H PRN Administration NAUSEA Oxycodone HCl 5 mg 03/22/18 22:24 03/29/18 13:31 Roxicodone Intensol Liq G-TUBE 5 mg Q4H PRN Administration PAIN 6-10 Pantoprazole Sodium 40 mg 03/21/18 14:00 03/29/18 14:00 Protonix Inj IV.PUSH 40 mg Q12H ANN Administration Polyethylene Glycol 17 gm 03/29/18 09:00 03/29/18 09:52 Miralax NG/OG 17 gm BID ANN Administration Potassium Bicarb/Potassium Chloride 25 meq 03/24/18 09:00 03/29/18 09:51 K-Lyte Cl Eff J-TUBE 25 meq DAILY ANN Administration Simethicone 125 mg 03/28/18 17:05 03/29/18 09:55 Phazyme Chew NG/OG 125 mg Q4H PRN Administration RELATING TO BLOATING Sodium Chloride 2 ml 03/07/18 09:00 03/29/18 09:52 Ns Flush IV.FLUSH 2 ml BID ANN Administration Sodium Chloride 2 ml 03/07/18 00:57 03/28/18 20:52 Ns Flush IV.FLUSH 2 ml PRN PRN Administration FLUSH AFTER USING IV ACCESS Sterile Water 60 ml 03/07/18 14:00 03/29/18 14:00 Free Water J-TUBE 60 ml Q8HR ANN Administration Zinc Sulfate 220 mg 03/09/18 09:00 03/29/18 09:53 Zinc-220 NG/OG 220 mg DAILY ANN Administration Objective Remarks: GENERAL: Frail, cachectic elderly female patient sitting up in stretcher chair in no acute distress. SKIN: Pale, warm and dry. HEAD: Normocephalic. EYES: No scleral icterus. No injection or drainage. NECK: Supple, trachea midline. Tracheostomy with T-tube attached. CARDIOVASCULAR: Regular rate and rhythm without murmurs. RESPIRATORY: No accessory muscle use. On T piece at 5 L/min. EXTREMITIES: Very mild edema to bilateral lower extremities, somewhat worse on the right. MUSCULOSKELETAL: Generalized weakness. NEUROLOGICAL: No obvious focal deficit. Awake, alert, and oriented x3. Assessment/Plan - Plan Ms. Henson is a 73-year-old woman with history of head and neck cancer. She was initially diagnosed in 2014. Her followup has not been consistent. She is well known patient to Dr. Gopal Pineda, who saw her in January of this year for the anemia. Hematology/oncology is consulted again for the anemia. At least a 30 minute extensive discussion was held with the patient, 2 [address] Johnson and myself. Firstly she has a new DVT in the right lower extremity and is on Lovenox injection at 70 mg twice daily. Once she has no more procedures planned, eventually transition her to a new oral anticoagulant as this is easy to manage and does not require frequent Lab visits. The patient is immobile and will have future risk for blood clots, therefore an extended anticoagulation period is indicated. Secondly we discussed the anemia. The patient has a clinical picture of anemia of chronic disease. She has no evidence of hemolysis. Her B12, folate and iron levels are sufficient. Her ferritin is significantly elevated however this is an acute phase reactant. Stool for Hemoccult on 03/21 was negative. Her reticulocyte count is low. She has history of chemotherapy and radiation which can decrease production in the bone marrow even years after the fact. She has a bone marrow planned for Saturday, and we will hold the Lovenox injection for 12 hours prior. It is not likely that the bone marrow will show a myelodysplasia but this remains a possibility. The patient's son was concerned about receiving blood transfusions after she is transferred to rehab. She seems to be in a cycle where she requires blood transfusion ever 1-2 weeks.. It was discussed that she will need to follow-up with Dr. Pineda in the clinic to get reestablished on an outpatient basis. Case management will need to assist with transportation to our outpatient clinic for blood draws with transfusions as necessary. The patient's son did ask about getting her erythropoietin support therapy; however this is not indicated in anemia of chronic disease. The patient does have some mild renal insufficiency. I will check an erythropoietin level to see if she has any deficiency as this may qualify her for approval from the insurance company if she does. I have ordered a packed red blood cell transfusion for today to give her a buffer while on the Lovenox. Continue to monitor platelet counts. - Attending Statement Lengthy discussion with son. It is likely we are dealing with anemia of chronic disease and if this is the case it would be reasonable to check a cbc plat weekly and choose a level for outpatient transfusion. If a myelodysplasia is found can offer Procrit. A bone marrow should help differentiate between the two. If she continues to loose strengthm, with recurrent pneumonias, wt loss and failure to thrive would consider hospice.
[2018-03-29] MEDS: Sodium Chlor 0.9% Inj 250 ML IV.SIG SCH ×2 (17:24→20:00)
[2018-03-30] MEDS: Pantoprazole Inj 40 MG Vial IV.PUSH SCH ×2 (02:00→13:08)
[2018-03-30] MEDS: Oral Hygiene Kit OROPHARYNG SCH ×4 (04:00→16:00)
[2018-03-30] MEDS: Levothyroxine 100 MCG Tablet NG/OG SCH (05:07)
[2018-03-30] MEDS: Insulin NovoLOG Aspart Correctional Sugar Inj SQ SCH ×4 (06:00→18:00)
[2018-03-30 06:36] LABS: Hematocrit 27.5 % (35.0-46.0); Hemoglobin 9.1 gm/dL (11.6-15.3); Mean Corpuscular HGB Conc 32.9 % (32.0-36.0); Mean Corpuscular Hemoglobin 28.9 pg (27.0-34.0); Mean Corpuscular Volume 87.8 fL (80.0-100.0); Mean Platelet Volume 10.6 fL (7.0-11.0); Platelet Count 94 th/mm3 (150-450); Red Blood Count 3.13 mil/mm3 (4.00-5.30); Red Cell Distribution Width 20.8 % (11.6-17.2)
[2018-03-30] MEDS: Dextrose 5%/NaCl 0.9% Inj 1,000 ML IV.CONT SCH (08:00)
[2018-03-30 08:15] LABS: Eosinophils 9 % (0-4); Lymphocytes 21 % (9-44); Metamyelocytes 3 % (0-1); Monocytes 16 % (0-8); Myelocytes 3 % (0-0); Platelet Morphology Normal (Normal)
[2018-03-30 08:17] LABS: Ovalocytes 1+
[2018-03-30] MEDS: buPROPion 75 MG Tablet NG/OG SCH ×2 (09:00→21:00)
[2018-03-30] MEDS: Enoxaparin Inj 80 MG/0.8 ML Syringe SQ SCH ×2 (09:00→20:37)
[2018-03-30] MEDS: Docusate Sodium Liq 100 MG/10 ML UDC NG/OG SCH ×2 (09:00→21:00)
[2018-03-30] MEDS: Potassium Chloride 25 MEQ Effervescent Tablet J-TUBE SCH (09:00)
[2018-03-30] MEDS: Polyethylene Glycol 3350 17 GM Packet NG/OG SCH ×2 (09:00→21:00)
--- NOTE | 2018-03-30 10:38 | P.PN ---
Subjective Interval history: Patient seen and examined Decreased urine outputs overnight. Increased G J-tube output. Blood transfusion of 1 unit was not given overnight due to loss of IV access. No BM times couple days. Physical Exam Vital signs: Vital Signs 03/29/18 12:00 03/29/18 14:10 03/29/18 16:00 Temperature 99.1 F 99.8 F H Pulse Rate 78 78 Respiratory Rate 22 18 18 Blood Pressure 100/52 L 100/52 L Pulse Oximetry 96 95 03/29/18 20:00 03/29/18 20:46 03/30/18 00:00 Temperature 98.8 F 99.6 F Pulse Rate 70 66 Respiratory Rate 22 20 Blood Pressure 107/54 L 123/60 Pulse Oximetry 97 99 96 03/30/18 04:00 Temperature 97.9 F Pulse Rate 60 Respiratory Rate 18 Blood Pressure 122/56 L Pulse Oximetry 96 Intake & Output 03/29/18 03/30/18 03/30/18 18:59 06:59 18:59 Intake Total 1910 / 1910 1030 / 1030 Output Total 1999 / 1999 1350 / 1350 Balance -90 / -90 -320 / -320 Weight 71.8 kg Intake: IV 1000 / 1000 170 / 170 D5W/Normal Saline Inj 1,000 ML 1000 / 1000 170 / 170 @ 84 mls/hr IV.CONT .[id number] [facility] Rx#:[id number] Oral 0 / 0 Tube Feeding 660 / 660 660 / 660 Water Bolus Amount 250 / 250 200 / 200 Output: Urine 300 / 300 350 / 350 Gastric Drainage 1700 / 1700 1000 / 1000 Gastrojejunostomy Tube 1700 / 1700 1000 / 1000 Other: # Voids 2 # Incontinent Voids 0 1 Date of Last Bowel Movement 03/28/18 03/28/18 Narrative: GENERAL: NAD. SKIN: Warm and dry. NECK: Tracheostomy in place. Secretions noted. HEART: RRR no m/r/g/. LUNGS: Lung sounds clear with distant breath sounds, no wheezing. ABDOMEN: G/J tube in place. has large drainage from G Tube. No surrounding erythema . +BS, soft, NT, ND. EXTREMITIES: No LE edema. Diminished pedal pulses. NEURO: Awake and alert. - Urinary Catheter Management Female External Cath placed during this visit: no Indwelling Urethral Catheter Cath placed during this visit: yes, but has since been removed by the nurse Reason for continuing: Hourly intake/output Insertion date: 03/06/18 Insertion time: 18:00 Removal date: 03/10/18 Removal time: 17:00 Results - Labs CBC & Chem 7: 03/30/18 05:56 03/29/18 05:43 Laboratory Results - last 24 hr 03/29/18 03/30/18 03/30/18 19:05 01:12 05:17 WBC RBC Hgb Hct MCV MCH MCHC RDW Plt Count MPV Prelim Diff (Auto) WBC Differential Seg Neuts % (Manual) Band Neuts % (Manual) Lymphocytes % (Manual) Monocytes % (Manual) Eosinophils % (Manual) Basophils % (Manual) Metamyelocytes % (Man) Myelocytes % (Man) Abs Neuts (Manual) Differential Comment Platelet Estimate Platelet Morphology Ovalocytes POC Glucose 91 100 Blood Type B Positive Antibody Screen Negative MTS Gel Crossmatch See Detail Bld Prod Order Comment 03/30/18 05:56 WBC 4.0 RBC 3.13 L Hgb 9.1 L Hct 27.5 L MCV 87.8 MCH 28.9 MCHC 32.9 RDW 20.8 H Plt Count 94 L MPV 10.6 Prelim Diff (Auto) Manual diff required WBC Differential Manual diff final Seg Neuts % (Manual) 37 Band Neuts % (Manual) 9 H Lymphocytes % (Manual) 21 Monocytes % (Manual) 16 H Eosinophils % (Manual) 9 H Basophils % (Manual) 2 Metamyelocytes % (Man) 3 H Myelocytes % (Man) 3 H Abs Neuts (Manual) 2.1 Differential Comment . Platelet Estimate Low L Platelet Morphology Normal Ovalocytes 1+ H POC Glucose Blood Type Antibody Screen MTS Gel Crossmatch Bld Prod Order Comment Microbiology 03/29/18 11:00 Wound - Abdominal Gram Stain - Final 03/27/18 11:30 Blood - Peripheral Aerobic Blood Culture - Preliminary No growth in 2 days 03/27/18 11:30 Blood - Peripheral Anaerobic Blood Culture - Preliminary No growth in 2 days 03/27/18 11:39 Blood - Peripheral Aerobic Blood Culture - Preliminary No growth in 2 days 03/27/18 11:39 Blood - Peripheral Anaerobic Blood Culture - Preliminary No growth in 2 days Assessment and Plan - Assessment (1) Acute adjustment disorder with depressed mood Code(s): F43.21 - Adjustment disorder with depressed mood Status: Acute (2) Dysphasia Code(s): R47.02 - Dysphasia Status: Acute (3) Respiratory failure Code(s): J96.90 - Respiratory failure, unspecified, unspecified whether with hypoxia or hypercapnia Status: Acute (4) Protein-calorie malnutrition, severe Code(s): E43 - Unspecified severe protein-calorie malnutrition Status: Chronic (5) Laryngeal squamous cell carcinoma Code(s): C32.9 - Malignant neoplasm of larynx, unspecified Status: Acute (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 1. Acute on chronic respiratory failurecurrently improving and resolved on trach with pulmonology following. 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 Aspiration pneumonia - s/p Levaquin - Supplemental O2 3. Anemia, acute on chronic may be due to chronic kidney disease - Pt with dark output in G-tube noted on 03/21. GI was notified and patient underwent EGD showing radiation telangiectasias in the proximal esophagus, esophageal stricture, inflammatory distal esophageal polyp, normal G-tube placement, and no evidence of blood anywhere in the upper GIT -Transfuse 1 unit packed red blood cell today March 30, 2018 4. Thrombocytopenia - Follow CBC - No signs of active bleeding -hematology following; IR consulted for BM biopsy for March 31, 2018. 5. Failure to thrive, protein energy malnutrition - Patient with severe pharyngeal dysphagia, esophageal stricture - G/J tube in place flush with 60 cc free water every 8 hours and Vital 1.5 at 55/hr per nutrition recs - G-tube to gravity 5. Chronic systolic heart failure - 2D cho 02/23 showing EF 35% with anterior septal hypokinesis and biatrial dilation 6. MRSA/Caitlyn tropicalis UTI - S/P treatment with vancomycin, cefepime, and Diflucan 7. Hypothyroidism - Continue home Levothyroxine 8. Adjustment disorder with depression - Continue Lexapro -Continue Wellbutrin 75 mg BID 9. Coccygeal wound - Wound care following, noted new skin tear to left buttock on 03/25 - Calazime BID and PRN for skin tear - Ultrasorb underpad for moisture - Strict Q2H turns from left to right sides only with limited time spent on back for therapies only - Apply OptiFoam adhesive to coccyx wound Q3D and PRN for soiling or dislodgement. 10. GERD, h/o Barretts - Continue PPI 11- DVT of the right lower extremities - continue subq Lovenox -hematology following. (3) Respiratory failure Qualifiers: Chronicity: acute Respiratory failure complication: hypoxia Qualified Code(s ): J96.01 - Acute respiratory failure with hypoxia
[2018-03-30] MEDS: levoFLOXacin Liq 25 MG/ML 100 ML Bottle NG/OG SCH (11:00)
[2018-03-30] MEDS: Morphine Inj 4 MG/ML Vial IV.PUSH PRN (13:08)
--- NOTE | 2018-03-30 13:10 | P.PNONC ---
Subjective Interval history: Afebrile Per nurse, the patient lost her IV site yesterday and therefore could not have the packed red blood cell infusion An IV site was placed today by the vascular access team and the packed red blood cells are currently infusing Patient denies pain or shortness of breath Objective Vital Signs/Intake & Output: Vital Signs 03/29/18 14:10 03/29/18 16:00 03/29/18 20:00 Temperature 99.8 F H 98.8 F Pulse Rate 78 70 Respiratory Rate 18 18 22 Blood Pressure 100/52 L 107/54 L Pulse Oximetry 95 97 03/29/18 20:46 03/30/18 00:00 03/30/18 04:00 Temperature 99.6 F 97.9 F Pulse Rate 66 60 Respiratory Rate 20 18 Blood Pressure 123/60 122/56 L Pulse Oximetry 99 96 96 03/30/18 08:00 03/30/18 12:09 03/30/18 12:24 Temperature 97.3 F L 98.2 F 97.8 F Pulse Rate 68 67 68 Respiratory Rate 16 16 18 Blood Pressure 105/58 L 109/53 L 114/56 L Pulse Oximetry 96 97 96 Intake & Output 03/29/18 03/30/18 03/30/18 18:59 06:59 18:59 Intake Total 1909 / 0 1030 / 1030 0 / 0 Output Total 1999 1350 / 1350 Balance -90 / -90 -320 / -320 0 / 0 Weight 158 lb 4.67 oz Intake: IV 1000 / 1000 170 / 170 D5W/Normal Saline Inj 1,000 ML 1000 / 1000 170 / 170 @ 84 mls/hr IV.CONT .[id number] [facility] Rx#:[id number] Oral 0 / 0 Tube Feeding 660 / 660 660 / 660 Water Bolus Amount 250 / 250 200 / 200 Intake (Blood Product) Amt 0 / 0 Rbc As-3 Leukoreduced Unit 0 / 0 [id number] Output: Urine 300 / 300 350 / 350 Gastric Drainage 1700 / 1700 1000 / 1000 Gastrojejunostomy Tube 1700 / 1700 1000 / 1000 Other: # Voids 2 # Incontinent Voids 0 1 Date of Last Bowel Movement 03/28/18 03/28/18 Result Diagrams: 03/30/18 05:56 03/29/18 05:43 Laboratory Results: Laboratory Results - last 24 hr 03/26/18 03/26/18 03/29/18 09:40 11:41 19:05 WBC RBC Hgb Hct MCV MCH MCHC RDW Plt Count MPV Prelim Diff (Auto) WBC Differential Seg Neuts % (Manual) Band Neuts % (Manual) Lymphocytes % (Manual) Monocytes % (Manual) Eosinophils % (Manual) Basophils % (Manual) Metamyelocytes % (Man) Myelocytes % (Man) Abs Neuts (Manual) Differential Comment Platelet Estimate Platelet Morphology Ovalocytes POC Glucose Blood Type B Positive Antibody Screen Negative MTS Gel Crossmatch See Detail See Detail See Detail Bld Prod Order Comment 03/30/18 03/30/18 03/30/18 01:12 05:17 05:56 WBC 4.0 RBC 3.13 L Hgb 9.1 L Hct 27.5 L MCV 87.8 MCH 28.9 MCHC 32.9 RDW 20.8 H Plt Count 94 L MPV 10.6 Prelim Diff (Auto) Manual diff required WBC Differential Manual diff final Seg Neuts % (Manual) 37 Band Neuts % (Manual) 9 H Lymphocytes % (Manual) 21 Monocytes % (Manual) 16 H Eosinophils % (Manual) 9 H Basophils % (Manual) 2 Metamyelocytes % (Man) 3 H Myelocytes % (Man) 3 H Abs Neuts (Manual) 2.1 Differential Comment . Platelet Estimate Low L Platelet Morphology Normal Ovalocytes 1+ H POC Glucose 91 100 Blood Type Antibody Screen MTS Gel Crossmatch Bld Prod Order Comment Culture Results: Microbiology 03/27/18 11:30 Aerobic Blood Culture - Preliminary Blood - Peripheral No growth in 3 days Anaerobic Blood Culture - Preliminary No growth in 3 days 03/27/18 11:39 Aerobic Blood Culture - Preliminary Blood - Peripheral No growth in 3 days Anaerobic Blood Culture - Preliminary No growth in 3 days 03/29/18 11:00 Gram Stain - Final Wound - Abdominal Medications: Active Medications Generic Name Dose Route Start Last Admin Trade Name Freq PRN Reason Stop Dose Admin Acetaminophen 650 mg 03/29/18 16:32 03/29/18 17:25 Tylenol PO 650 mg Q4H PRN Administration SEE LABEL COMMENTS Acetaminophen 650 mg 03/07/18 08:32 03/27/18 00:01 Tylenol Liq G-TUBE 650 mg Q6H PRN Administration FEVER Albuterol 2.5 mg 03/07/18 00:57 03/21/18 19:22 Albuterol Neb (Prn) NEB 2.5 mg Q2HR NEB PRN Administration SHORTNESS OF BREATH/WHEEZING Ascorbic Acid 500 mg 03/08/18 21:00 03/29/18 21:00 Vitamin C G-TUBE 500 mg BID ANN Administration Bupropion HCl 75 mg 03/28/18 21:00 03/29/18 21:00 Wellbutrin NG/OG 75 mg BID ANN Administration Cetirizine HCl 10 mg 03/28/18 21:00 03/29/18 21:00 Zyrtec NG/OG 10 mg HS ANN Administration Docusate Sodium 100 mg 03/28/18 21:00 03/29/18 21:00 Colace Liq NG/OG 100 mg BID ANN Administration Enoxaparin Sodium 70 mg 03/28/18 21:00 03/29/18 21:00 Lovenox Inj SQ 70 mg Q12HR ANN Administration Escitalopram Oxalate 20 mg 03/09/18 09:00 03/29/18 09:51 Lexapro G-TUBE 20 mg DAILY ANN Administration Glycopyrrolate 0.4 mg 03/21/18 16:16 03/29/18 09:55 Robinul Inj IV.PUSH 0.4 mg Q8H PRN Administration thick secretions Hyoscyamine 0.125 mg 03/20/18 10:12 03/27/18 08:31 Levsin Liq SL 0.125 mg Q4H PRN Administration SECRETIONS Hyoscyamine 0.125 mg 03/28/18 17:00 03/30/18 05:07 Levsin PO 0.125 mg Q6H ANN Administration Dextrose/Sodium Chloride 1,000 mls @ 84 mls/hr 03/24/18 18:00 03/29/18 20:05 D5w/Normal Saline Inj IV.CONT 0 mls/hr .[id number] ANN Infusion Insulin Aspart 0 unit 03/08/18 18:00 03/30/18 06:00 Novolog Insulin Correctional Sugar Inj SQ Not Given Q6HR [facility] Protocol Levofloxacin 250 mg 03/29/18 11:00 03/29/18 11:00 Levaquin NG/OG 250 mg DAILY@1100 ANN Administration Levothyroxine Sodium 100 mcg 03/09/18 06:00 03/30/18 05:07 Synthroid NG/OG 100 mcg DAILY@0600 ANN Administration Morphine Sulfate 2 mg 03/24/18 14:30 03/29/18 17:24 Morphine Inj IV.PUSH 2 mg Q4H PRN Administration PAIN SCALE 1 TO 10 Multivitamins 1 tab 03/09/18 09:00 03/29/18 09:53 Theragran NG/OG 1 tab DAILY ANN Administration Ondansetron HCl 4 mg 03/15/18 10:59 03/27/18 21:41 Zofran Odt SL 4 mg Q6H PRN Administration NAUSEA Oxycodone HCl 5 mg 03/22/18 22:24 03/29/18 13:31 Roxicodone Intensol Liq G-TUBE 5 mg Q4H PRN Administration PAIN 6-10 Pantoprazole Sodium 40 mg 03/21/18 14:00 03/30/18 02:00 Protonix Inj IV.PUSH Not Given Q12H ANN Polyethylene Glycol 17 gm 03/29/18 09:00 03/29/18 21:00 Miralax NG/OG Not Given BID ANN Potassium Bicarb/Potassium Chloride 25 meq 03/24/18 09:00 03/29/18 09:51 K-Lyte Cl Eff J-TUBE 25 meq DAILY ANN Administration Simethicone 125 mg 03/28/18 17:05 03/29/18 09:55 Phazyme Chew NG/OG 125 mg Q4H PRN Administration RELATING TO BLOATING Sodium Chloride 2 ml 03/07/18 09:00 03/29/18 21:00 Ns Flush IV.FLUSH Not Given BID ANN Sodium Chloride 2 ml 03/07/18 00:57 03/28/18 20:52 Ns Flush IV.FLUSH 2 ml PRN PRN Administration FLUSH AFTER USING IV ACCESS Sterile Water 60 ml 03/07/18 14:00 03/30/18 06:00 Free Water J-TUBE 60 ml Q8HR ANN Administration Zinc Sulfate 220 mg 03/09/18 09:00 03/29/18 09:53 Zinc-220 NG/OG 220 mg DAILY ANN Administration Objective Remarks: GENERAL: Frail, cachectic elderly female resting in bed asleep on approach. She wakens easily to verbal stimuli. 1 unit of packed red blood cells are currently infusing. SKIN: Pale, warm and dry. HEAD: Normocephalic. EYES: No scleral icterus. No injection or drainage. NECK: Supple, trachea midline. Tracheostomy with T-tube attached. CARDIOVASCULAR: Regular rate and rhythm without murmurs. RESPIRATORY: No accessory muscle use. On T piece at 5 L/min. EXTREMITIES: Very mild edema to bilateral lower extremities MUSCULOSKELETAL: Generalized weakness. NEUROLOGICAL: No obvious focal deficit. Awake, alert, and oriented x3. Assessment/Plan - Plan Ms. Henson is a 73-year-old woman with history of head and neck cancer. She was initially diagnosed in 2014. Her followup has not been consistent. She is well known patient to Dr. Gopal Pineda, who saw her in January of this year for the anemia. Hematology/oncology is consulted again for the anemia. The patient is currently getting her packed red blood cell transfusion today. She will be having a bone marrow biopsy tomorrow. We will hold the Lovenox injection tomorrow morning. Her tube feeds will be placed on hold at midnight. Her erythropoietin level is pending. Dr. Pineda to follow tomorrow. - Attending Statement The exam, history, and the medical decision-making described in the above note were completed with the assistance of the mid-level provider. I reviewed and agree with the findings presented. I attest that I had a qoum-ea-stzy encounter with the patient on the same day, and personally performed and documented my assessment and findings in the medical record. The patient is doing well. The right leg is less swollen since the Lovenox was started. There is been no bleeding. Today's hemoglobin is 9.1. One could forego giving her blood but by giving her a unit of blood is likely that when she exits the hospital it will be a while before she requires another transfusion. The bone marrow will be done tomorrow. She consistently has some early forms such as myelocytes and metamyelocytes in her peripheral blood. This is either reactive or could be part of a myelodysplastic/ myeloproliferative syndrome.
[2018-03-30] MEDS: Ascorbic Acid 500 MG Tablet G-TUBE SCH ×2 (20:38→21:00)
[2018-03-31] MEDS: Dextrose 5%/NaCl 0.9% Inj 1,000 ML IV.CONT SCH ×2 (02:02→06:55)
[2018-03-31] MEDS: Pantoprazole Inj 40 MG Vial IV.PUSH SCH ×2 (02:03→14:48)
[2018-03-31] MEDS: Insulin NovoLOG Aspart Correctional Sugar Inj SQ SCH ×4 (06:00→18:22)
[2018-03-31] MEDS: Levothyroxine 100 MCG Tablet NG/OG SCH (06:00)
[2018-03-31] MEDS: Potassium Chloride 25 MEQ Effervescent Tablet J-TUBE SCH (09:11)
[2018-03-31] MEDS: Polyethylene Glycol 3350 17 GM Packet NG/OG SCH ×2 (09:11→23:38)
[2018-03-31] MEDS: Docusate Sodium Liq 100 MG/10 ML UDC NG/OG SCH ×2 (09:11→23:38)
[2018-03-31] MEDS: Ascorbic Acid 500 MG Tablet G-TUBE SCH ×2 (09:11→22:55)
[2018-03-31] MEDS: buPROPion 75 MG Tablet NG/OG SCH ×2 (09:12→22:55)
--- NOTE | 2018-03-31 09:26 | P.PNIM ---
Subjective Interval history: Reports she still has a sensation of choking, increased sputum production from trach site. Physical Exam Vital signs: Vital Signs 03/30/18 12:00 03/30/18 12:09 03/30/18 12:24 Temperature 98.1 F 98.2 F 97.8 F Pulse Rate 74 67 68 Respiratory Rate 18 16 18 Blood Pressure 110/54 L 109/53 L 114/56 L Pulse Oximetry 98 97 96 03/30/18 13:30 03/30/18 14:30 03/30/18 15:30 Temperature 98.0 F 98.0 F 98.4 F Pulse Rate 70 76 84 Respiratory Rate 20 18 20 Blood Pressure 100/53 L 112/57 L 100/54 L Pulse Oximetry 94 L 97 96 03/30/18 16:00 03/30/18 16:30 03/30/18 19:45 Temperature 98.3 F 98.0 F Pulse Rate 84 61 Respiratory Rate 16 18 Blood Pressure 105/55 L 109/58 L Pulse Oximetry 94 L 97 98 03/30/18 20:00 03/31/18 00:00 03/31/18 04:00 Temperature 97.8 F 97.1 F L 97.4 F L Pulse Rate 64 60 59 L Respiratory Rate 22 22 20 Blood Pressure 140/64 118/55 L 142/63 H Pulse Oximetry 96 95 98 03/31/18 08:00 03/31/18 09:07 Temperature 98.5 F Pulse Rate 72 Respiratory Rate 18 Blood Pressure 153/69 H Pulse Oximetry 95 97 Intake & Output 03/30/18 03/31/18 03/31/18 18:59 06:59 18:59 Intake Total 1413 / 1413 1623 / 1623 Output Total 2200 / 2200 200 / 200 Balance -787 / -787 1423 / 1423 Weight 71.9 kg Intake: IV 353 / 353 983 / 983 D5W/Normal Saline Inj 1,000 ML 353 / 353 983 / 983 @ 84 mls/hr IV.CONT .[id number] [facility] Rx#:[id number] Oral 0 / 0 Tube Feeding 660 / 660 330 / 330 Tube Irrigant 250 / 250 Water Bolus Amount 200 / 200 60 / 60 Other 200 / 200 Rbc As-3 Leukoreduced Unit 200 / 200 [id number] Intake (Blood Product) Amt 0 / 0 Rbc As-3 Leukoreduced Unit 0 / 0 [id number] Output: Urine 400 / 400 200 / 200 Gastric Drainage 1800 / 1800 J Tube 1800 / 1800 Other: Other Intake Source Rbc As-3 Leukoreduced Unit Saline Solution [id number] # Voids 2 2 # Incontinent Voids 1 1 Date of Last Bowel Movement 03/30/18 03/30/18 03/30/18 # Bowel Movements 2 Narrative: GENERAL: NAD. SKIN: Warm and dry. NECK: Tracheostomy in place. Pinkish thick secretions noted. HEART: Regular rate and rhythm LUNGS: Few bilateral rhonchi ABDOMEN: G/J tube in place. has large drainage from G Tube. No surrounding erythema . +BS, soft, NT, ND. EXTREMITIES: No LE edema. Diminished pedal pulses. NEURO: Awake and alert. - Urinary Catheter Management Female External Cath placed during this visit: no Indwelling Urethral Catheter Cath placed during this visit: yes, but has since been removed by the nurse Reason for continuing: Hourly intake/output Insertion date: 03/06/18 Insertion time: 18:00 Removal date: 03/10/18 Removal time: 17:00 Results - Labs CBC & Chem 7: 03/30/18 05:56 03/29/18 05:43 Laboratory Results - last 24 hr 03/26/18 03/26/18 03/29/18 09:40 11:41 19:05 POC Glucose Blood Type B Positive Antibody Screen Negative MTS Gel Crossmatch See Detail See Detail See Detail Bld Prod Order Comment 03/30/18 03/31/18 23:27 06:19 POC Glucose 139 H 97 Blood Type Antibody Screen MTS Gel Crossmatch Bld Prod Order Comment Microbiology 03/29/18 11:00 Wound - Abdominal Gram Stain - Final 03/29/18 11:00 Wound - Abdominal Wound Culture - Preliminary S. aureus MRSA Streptococcus species gram negative rods 03/27/18 11:30 Blood - Peripheral Aerobic Blood Culture - Preliminary No growth in 3 days 03/27/18 11:30 Blood - Peripheral Anaerobic Blood Culture - Preliminary No growth in 3 days 03/27/18 11:39 Blood - Peripheral Aerobic Blood Culture - Preliminary No growth in 3 days 03/27/18 11:39 Blood - Peripheral Anaerobic Blood Culture - Preliminary No growth in 3 days Assessment and Plan - Assessment (1) Acute adjustment disorder with depressed mood Code(s): F43.21 - Adjustment disorder with depressed mood Status: Acute (2) Dysphasia Code(s): R47.02 - Dysphasia Status: Acute (3) Respiratory failure Code(s): J96.90 - Respiratory failure, unspecified, unspecified whether with hypoxia or hypercapnia Status: Acute (4) Protein-calorie malnutrition, severe Code(s): E43 - Unspecified severe protein-calorie malnutrition Status: Chronic (5) Laryngeal squamous cell carcinoma Code(s): C32.9 - Malignant neoplasm of larynx, unspecified Status: Acute (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 1. Acute on chronic respiratory failurecurrently improving and resolved on trach with pulmonology following. - Patient with history of supraglottic laryngeal cancer s/p radiation and chemo resulting in radiation-induced laryngeal scarring and recurrent aspiration - Presented on 03/06 with respiratory distress and saturations in the 50s, intubated emergently by ED physician - Sputum culture 03/08 growing MRSA - S/P treatment for aspiration PNA with Cefepime, Flagyl, and Vancomycin - S/P tracheostomy 03/11 with general surgery - Pulmonology following for trach care - Bronchodilators - On T-piece now with FiO2 28 - Remove sutures 2. Aspiration pneumonia - CXR this AM showing stable appearance of the chest with trach tube and left lower lobe airspace disease - Remains afebrile - Continue Levaquin - Supplemental O2 3. Anemia, acute on chronic may be due to chronic kidney disease - Pt with dark output in G-tube noted on 03/21. GI was notified and patient underwent EGD showing radiation telangiectasias in the proximal esophagus, esophageal stricture, inflammatory distal esophageal polyp, normal G-tube placement, and no evidence of blood anywhere in the upper GIT - Stool Hemoccult negative -Dr. Sorathria following - Iron studies with a mixed picture - Normal B12 and folate - Monitor H&H and signs of hemodynamic instability - Transfuse 2 units of packed red blood cells on . Discussed with son previously And does not want to pursue further aggressive procedure such as colonoscopy. For bone marrow biopsy today. 4. Thrombocytopenia - Platelets slowly trending down - Down to 94 this AM - Hold heparin - Follow CBC - No signs of active bleeding 5. Failure to thrive, protein energy malnutrition - Patient with severe pharyngeal dysphagia, esophageal stricture - G/J tube in place flush with 60 cc free water every 8 hours and Vital 1.5 at 55/hr per nutrition recs - G-tube to gravity 5. Chronic systolic heart failure - 2D cho 02/23 showing EF 35% with anterior septal hypokinesis and biatrial dilation - Patient euvolemic on exam - Pt would benefit from an SNEHA-I or ARB as well as spironolactone but BPs have been borderline hypotensive so will hold off for now 6. MRSA/Caitlyn tropicalis UTI - S/P treatment with vancomycin, cefepime, and Diflucan 7. Hypothyroidism - Continue home Levothyroxine 8. Adjustment disorder with depression Added Wellbutrin 75 mg BID - Continue Lexapro 9. Coccygeal wound - Wound care following, noted new skin tear to left buttock on 03/25 - Calazime BID and PRN for skin tear - Ultrasorb underpad for moisture - Strict Q2H turns from left to right sides only with limited time spent on back for therapies only - Obtain and place patient on Airapy low air loss mattress - Apply OptiFoam adhesive to coccyx wound Q3D and PRN for soiling or dislodgement. 10. GERD, h/o Barretts - Continue PPI DVT prophylaxis: SCDs, holding heparin for anemia and thrombocytopenia Discharge Planning: Patient will need rehab on discharge. Case management assisting with SNF placement, [facility] following Son, ICU PA, requests regular updates. Hoping for acceptance to [facility] Palliative care now consulted to assess end of life goals (3) Respiratory failure Qualifiers: Chronicity: acute Respiratory failure complication: hypoxia Qualified Code(s ): J96.01 - Acute respiratory failure with hypoxia
[2018-03-31 09:35] LABS: Hematocrit 29.1 % (35.0-46.0); Hemoglobin 9.7 gm/dL (11.6-15.3); Mean Corpuscular HGB Conc 33.3 % (32.0-36.0); Mean Corpuscular Hemoglobin 29.1 pg (27.0-34.0); Mean Corpuscular Volume 87.3 fL (80.0-100.0); Mean Platelet Volume 9.1 fL (7.0-11.0); Platelet Count 91 th/mm3 (150-450); Red Blood Count 3.34 mil/mm3 (4.00-5.30); Red Cell Distribution Width 19.3 % (11.6-17.2); White Blood Count 4.5 th/mm3 (4.0-11.0)
[2018-03-31] MEDS ORDERED: fentaNYL Citrate Inj 100 MCG/2 ML Ampul ONE (10:22)
[2018-03-31] MEDS: levoFLOXacin Liq 25 MG/ML 100 ML Bottle NG/OG SCH (10:59)
[2018-03-31 11:02] LABS: Eosinophils 14 % (0-4); Lymphocytes 18 % (9-44); Metamyelocytes 2 % (0-1); Monocytes 7 % (0-8); Myelocytes 1 % (0-0); Platelet Morphology Normal (Normal); Promyelocyte 2 % (0-0); Toxic Vacuolation Present
[2018-03-31 11:03] LABS: Ovalocytes 1+
[2018-03-31 11:11] LABS: Iron Stain Bone Marrow Done
--- NOTE | 2018-03-31 11:16 | CT ---
EXAM DATE: 03/31/2018 11:09 AM EDT AGE/SEX: 73 years / Female INDICATIONS: Anemia and thrombocytopenia CLINICAL DATA: This is the patient's initial encounter. Patient reports that signs and symptoms have been present for 1 day and indicates a pain score of 0/10. MEDICAL/SURGICAL HISTORY: Carcinoma, pharyngeal. Cholecystectomy. COMPARISON: No prior exams available for comparison. SEDATION TIME (min): 7 min BIOPSY SITE: Left bone marrow MEDICATION(S): 2mg midazolam (Versed) IV 100mcg midazolam (Versed) IV DEVICE(S): 12 gauge On-Control needle One core specimen(s) sent to the laboratory for pathologic evaluation. . . PROCEDURE: CT guided Left bone marrow biopsy Prior to the procedure informed consent was obtained. Any appropriate prior imaging studies were rev iewed. Using automated exposure control and adjustment of the mA and/or kV according to patient size , radiation dose was kept as low as reasonably achievable to obtain optimal diagnostic quality images . DICOM format image data is available electronically for review and comparison. The site was prepped in a sterile fashion. Full sterile technique was used, including cap, mask, dylan rile gloves and gown and a large sterile sheet. Hand hygiene and 2% chlorhexidine and/or betadine/al cohol prep was utilized per protocol for cutaneous antisepsis. The skin and subcutaneous tissues wer e infiltrated with local anesthetic solution. With CT guidance the previously identified target was localized. Biopsy was performed using the presc ribed needle as above. Following biopsy marrow aspiration was performed with repeat puncture. Adequa te hemostasis was obtained with compression at the puncture site. Follow-up CT scan reveals no hemorrhage. Conscious sedation was performed with the prescribed dosages and duration as above in the presence of an independent trained radiology nurse to assist in the monitoring of the patient. EKG and oximetry remained stable throughout the procedure. The patient tolerated the procedure well and there were no complications. The patient was sent to Radiology Outpatient Unit in stable condition. CONCLUSION: 1. Uncomplicated CT guided bone marrow aspirate. 2. Uncomplicated CT guided bone marrow biopsy. Electronically signed by: Aly Park MD 03/31/2018 11:15 AM EDT
--- NOTE | 2018-03-31 14:43 | P.PNONC ---
Subjective Interval history: Afebrile. Patient status post bone marrow biopsy today. She has no complaints at this time. Objective Vital Signs/Intake & Output: Vital Signs 03/30/18 14:30 03/30/18 15:30 03/30/18 16:00 Temperature 98.0 F 98.4 F 98.3 F Pulse Rate 76 84 84 Respiratory Rate 18 20 16 Blood Pressure 112/57 L 100/54 L 105/55 L Pulse Oximetry 97 96 94 L 03/30/18 16:30 03/30/18 19:45 03/30/18 20:00 Temperature 98.0 F 97.8 F Pulse Rate 61 64 Respiratory Rate 18 22 Blood Pressure 109/58 L 140/64 Pulse Oximetry 97 98 96 03/31/18 00:00 03/31/18 04:00 03/31/18 08:00 Temperature 97.1 F L 97.4 F L 98.5 F Pulse Rate 60 59 L 72 Respiratory Rate 22 20 18 Blood Pressure 118/55 L 142/63 H 153/69 H Pulse Oximetry 95 98 95 03/31/18 09:07 03/31/18 10:55 03/31/18 11:27 Temperature 97.9 F Pulse Rate 61 Respiratory Rate 14 17 Blood Pressure 123/50 L Pulse Oximetry 97 99 03/31/18 11:30 03/31/18 11:42 Temperature Pulse Rate 60 60 Respiratory Rate 18 19 Blood Pressure 133/70 128/60 Pulse Oximetry 99 Intake & Output 03/30/18 03/31/18 03/31/18 18:59 06:59 18:59 Intake Total 1413 / 1413 1623 / 1623 Output Total 2200 / 2200 200 / 200 Balance -787 / -787 1423 / 1423 Weight 71.9 kg Intake: IV 353 / 353 983 / 983 D5W/Normal Saline Inj 1,000 ML 353 / 353 983 / 983 @ 84 mls/hr IV.CONT .[id number] [facility] Rx#:[id number] Oral 0 / 0 Tube Feeding 660 / 660 330 / 330 Tube Irrigant 250 / 250 Water Bolus Amount 200 / 200 60 / 60 Other 200 / 200 Rbc As-3 Leukoreduced Unit 200 / 200 [id number] Intake (Blood Product) Amt 0 / 0 Rbc As-3 Leukoreduced Unit 0 / 0 [id number] Output: Urine 400 / 400 200 / 200 Gastric Drainage 1800 / 1800 J Tube 1800 / 1800 Other: Other Intake Source Rbc As-3 Leukoreduced Unit Saline Solution [id number] # Voids 2 2 # Incontinent Voids 1 1 Date of Last Bowel Movement 03/30/18 03/30/18 03/30/18 # Bowel Movements 2 Result Diagrams: 03/31/18 08:44 03/29/18 05:43 Laboratory Results: Laboratory Results - last 24 hr 03/29/18 03/30/18 03/31/18 19:05 23:27 06:19 WBC RBC Hgb Hct MCV MCH MCHC RDW Plt Count MPV Prelim Diff (Auto) WBC Differential Seg Neuts % (Manual) Band Neuts % (Manual) Lymphocytes % (Manual) Monocytes % (Manual) Eosinophils % (Manual) Metamyelocytes % (Man) Myelocytes % (Man) Promyelocytes % (Man) Abs Neuts (Manual) Differential Comment Toxic Vacuolation Platelet Estimate Platelet Morphology Ovalocytes POC Glucose 139 H 97 MTS Gel Crossmatch See Detail 03/31/18 03/31/18 08:44 11:27 WBC 4.5 RBC 3.34 L Hgb 9.7 L Hct 29.1 L MCV 87.3 MCH 29.1 MCHC 33.3 RDW 19.3 H Plt Count 91 L MPV 9.1 Prelim Diff (Auto) Manual diff required WBC Differential Manual diff final Seg Neuts % (Manual) 49 Band Neuts % (Manual) 7 H Lymphocytes % (Manual) 18 Monocytes % (Manual) 7 Eosinophils % (Manual) 14 H Metamyelocytes % (Man) 2 H Myelocytes % (Man) 1 H Promyelocytes % (Man) 2 H Abs Neuts (Manual) 2.7 Differential Comment . Toxic Vacuolation Present H Platelet Estimate Low L Platelet Morphology Normal Ovalocytes 1+ H POC Glucose 95 MTS Gel Crossmatch Culture Results: Microbiology 03/29/18 11:00 Gram Stain - Final Wound - Abdominal Wound Culture - Preliminary S. aureus MRSA Pseudomonas aeruginosa 03/27/18 11:30 Aerobic Blood Culture - Preliminary Blood - Peripheral No growth in 4 days Anaerobic Blood Culture - Preliminary No growth in 4 days 03/27/18 11:39 Aerobic Blood Culture - Preliminary Blood - Peripheral No growth in 4 days Anaerobic Blood Culture - Preliminary No growth in 4 days Imaging Studies: Impressions Bone Marrow Biopsy w/ CT 03/31/18 00:00 CONCLUSION: 1. Uncomplicated CT guided bone marrow aspirate. 2. Uncomplicated CT guided bone marrow biopsy. Medications: Active Medications Generic Name Dose Route Start Last Admin Trade Name Freq PRN Reason Stop Dose Admin Acetaminophen 650 mg 03/29/18 16:32 03/29/18 17:25 Tylenol PO 650 mg Q4H PRN Administration SEE LABEL COMMENTS Acetaminophen 650 mg 03/07/18 08:32 03/27/18 00:01 Tylenol Liq G-TUBE 650 mg Q6H PRN Administration FEVER Hydrocodone Bitart/Acetaminophen 2 tab 03/30/18 17:25 03/30/18 21:30 [place] 5/325 PO 2 tab Q4H PRN Administration PAIN 6-10 Albuterol 2.5 mg 03/07/18 00:57 03/21/18 19:22 Albuterol Neb (Prn) NEB 2.5 mg Q2HR NEB PRN Administration SHORTNESS OF BREATH/WHEEZING Ascorbic Acid 500 mg 03/08/18 21:00 03/31/18 09:11 Vitamin C G-TUBE Not Given BID ANN Bupropion HCl 75 mg 03/28/18 21:00 03/31/18 09:12 Wellbutrin NG/OG Not Given BID ANN Cetirizine HCl 10 mg 03/28/18 21:00 03/30/18 21:00 Zyrtec NG/OG 10 mg HS ANN Administration Docusate Sodium 100 mg 03/28/18 21:00 03/31/18 09:11 Colace Liq NG/OG Not Given BID ANN Enoxaparin Sodium 70 mg 03/28/18 21:00 03/30/18 20:37 Lovenox Inj SQ Not Given Q12HR ANN Escitalopram Oxalate 20 mg 03/09/18 09:00 03/31/18 09:11 Lexapro G-TUBE Not Given DAILY ANN Glycopyrrolate 0.4 mg 03/21/18 16:16 03/29/18 09:55 Robinul Inj IV.PUSH 0.4 mg Q8H PRN Administration thick secretions Hyoscyamine 0.125 mg 03/20/18 10:12 03/27/18 08:31 Levsin Liq SL 0.125 mg Q4H PRN Administration SECRETIONS Hyoscyamine 0.125 mg 08/10/18 17:00 03/31/18 10:59 Levsin PO Not Given Q6H [facility] Dextrose/Sodium Chloride 1,000 mls @ 84 mls/hr 03/24/18 18:00 03/31/18 06:55 D5w/Normal Saline Inj IV.CONT 84 mls/hr .[id number] ANN Administration Insulin Aspart 0 unit 03/08/18 18:00 03/31/18 10:59 Novolog Insulin Correctional Sugar Inj SQ Not Given Q6HR [facility] Protocol Levofloxacin 250 mg 03/29/18 11:00 03/31/18 10:59 Levaquin NG/OG Not Given DAILY@1100 [facility] Levothyroxine Sodium 100 mcg 03/09/18 06:00 03/31/18 06:00 Synthroid NG/OG 100 mcg DAILY@0600 [facility] Administration Multivitamins 1 tab 03/09/18 09:00 03/31/18 09:11 Theragran NG/OG Not Given DAILY [facility] Ondansetron HCl 4 mg 03/15/18 10:59 03/27/18 21:41 Zofran Odt SL 4 mg Q6H PRN Administration NAUSEA Pantoprazole Sodium 40 mg 03/21/18 14:00 03/31/18 02:03 Protonix Inj IV.PUSH 40 mg Q12H [facility] Administration Polyethylene Glycol 17 gm 03/29/18 09:00 03/31/18 09:11 Miralax NG/OG Not Given BID [facility] Potassium Bicarb/Potassium Chloride 25 meq 03/24/18 09:00 03/31/18 09:11 K-Lyte Cl Eff J-TUBE Not Given DAILY [facility] Simethicone 125 mg 03/28/18 17:05 03/29/18 09:55 Phazyme Chew NG/OG 125 mg Q4H PRN Administration RELATING TO BLOATING Sodium Chloride 2 ml 03/07/18 09:00 03/31/18 09:11 Ns Flush IV.FLUSH Not Given BID [facility] Sodium Chloride 2 ml 03/07/18 00:57 03/28/18 20:52 Ns Flush IV.FLUSH 2 ml PRN PRN Administration FLUSH AFTER USING IV ACCESS Sterile Water 60 ml 03/07/18 14:00 03/31/18 06:00 Free Water J-TUBE Not Given Q8HR [facility] Zinc Sulfate 220 mg 03/09/18 09:00 03/31/18 09:12 Zinc-220 NG/OG Not Given DAILY ANN Objective Remarks: GENERAL: Cachectic elderly female patient, lying in bed. In no acute distress. SKIN: Pale, warm and dry. HEAD: Normocephalic. EYES: No scleral icterus. No injection or drainage. NECK: Supple, trachea midline. Tracheostomy with T-tube attached. CARDIOVASCULAR: Regular rate and rhythm without murmurs. RESPIRATORY: Anterior bilateral breath sounds rhonchi, equal bilaterally. No accessory muscle use. Tracheostomy with humidified O2 attached, blood-tinged yellow mucus in T-tube. GASTROINTESTINAL: Abdomen soft, tender, nondistended. PEG tube to LUQ EXTREMITIES: No cyanosis, or edema. MUSCULOSKELETAL: Decreased muscle tone. NEUROLOGICAL: No obvious focal deficit. Awake & alert. Answers questions appropriately. PSYCHIATRIC: Appropriate mood and affect; insight and judgment normal. Assessment/Plan - Plan Ms. Henson is a 73-year-old woman with history of head and neck cancer. She was initially diagnosed in 2014. Her followup has not been consistent. She is well known patient to Dr. Gopal Pineda, who saw her in January of this year for the anemia. Hematology/oncology is consulted again for the anemia. Plan: 1. Status post bone marrow biopsy today. BM site without swelling, erythema or drainage. 2. H&H stable, will continue to monitor. Bone marrow biopsy pending. 3. Continue supportive care. - Attending Statement The exam, history, and the medical decision-making described in the above note were completed with the assistance of the mid-level provider. I reviewed and agree with the findings presented. I attest that I had a [id number] encounter with the patient on the same day, and personally performed and documented my assessment and findings in the medical record. LATE ENTRY . Pt was seen last evening. Offers no c/o. s/p BM bx , tolerated well. await result. D/W Pt
--- NOTE | 2018-03-31 15:57 | P.PNWCN ---
Wound Care Nurse Consult Description: Consult for PEG stoma excoriation, re consult coccyx right buttock open area per Kanika Garnica/Dr Silva Communicated with: KIRSTEN Bingham Recommendation: Cleanse peg tube site BID and PRN Apply drain sponge under bumper for comfort and to absorb light exudate/ drainage. Cleanse and apply OptiFoam adhesive to coccyx wound Q3D and PRN for soiling or dislodgement. Use Ultrasorb underpad for moisture under buttocks (please no cotton pull pads with specialty bed) Strict Q2H turns from left to right sides only with limited time spent on back for therapies only. Additional information: Patient seen on for wound evaluation Wound/Pressure Injury - Wound Midline Coccyx Wound Staging: Stage IV Wound Assessment: Ongoing Wound Type: Pressure Injury Is This a Chronic Wound: Yes Requested from Provider a Wound Care Consult: Yes (Dr Sullivan) Length: 1.2 Width: 0.9 Depth: 0.1 Wound Bed Appearance: Osborne Drainage Amount: None Drainage Odor: No Odor Dressing Status: Changed (APPLIED) Cleansing Solution: Saline Primary Dressing: Foam adhesive Left Buttock Wound Bed Appearance: closed skin tear Topical: Calazime Right Buttock Wound Bed Appearance: closed skin tear Dressing Status: Open to Air Topical: Calazime Cream Peg- Peristoma Requested from Provider a Wound Care Consult: Yes (scabbed areas currently ) Drainage Amount: None Dressing Status: Changed (APPLIED drain sponge) Wound Dressing Change Date: 03/31/18
--- NOTE | 2018-03-31 19:18 | P.PN ---
Subjective Interval history: She is alert and on a T Bar , 30 % FIO2. Went for Bone marrow exam has some Copious secretions from trach Physical Exam Vital signs: Vital Signs 03/30/18 19:45 03/30/18 20:00 03/31/18 00:00 Temperature 97.8 F 97.1 F L Pulse Rate 64 60 Respiratory Rate 22 22 Blood Pressure 140/64 118/55 L Pulse Oximetry 98 96 95 03/31/18 04:00 03/31/18 08:00 03/31/18 09:07 Temperature 97.4 F L 98.5 F Pulse Rate 59 L 72 Respiratory Rate 20 18 Blood Pressure 142/63 H 153/69 H Pulse Oximetry 98 95 97 03/31/18 10:55 03/31/18 11:27 03/31/18 11:30 Temperature 97.9 F Pulse Rate 61 60 Respiratory Rate 14 17 18 Blood Pressure 123/50 L 133/70 Pulse Oximetry 99 03/31/18 11:42 03/31/18 12:12 03/31/18 12:42 Temperature 97.9 F 98.7 F Pulse Rate 60 85 77 Respiratory Rate 19 12 15 Blood Pressure 128/60 123/46 L 118/65 Pulse Oximetry 99 98 98 03/31/18 13:12 Temperature 98.2 F Pulse Rate 86 Respiratory Rate 14 Blood Pressure 98/65 L Pulse Oximetry 98 Intake & Output 03/31/18 03/31/18 04/01/18 06:59 18:59 06:59 Intake Total 1623 / 1623 1005 / 1005 Output Total 200 / 200 Balance 1423 / 1423 1005 / 1005 Weight 71.9 kg Intake: IV 983 / 983 D5W/Normal Saline Inj 1,000 ML 983 / 983 @ 84 mls/hr IV.CONT .[id number] [facility] Rx#:[id number] Oral 0 / 0 0 / 0 Tube Feeding 330 / 330 Tube Irrigant 250 / 250 Water Bolus Amount 60 / 60 Other 1005 / 1005 Output: Urine 200 / 200 Other: Other Intake Source Saline Solution # Voids 2 3 # Incontinent Voids 1 Date of Last Bowel Movement 03/30/18 03/31/18 # Bowel Movements 1 Narrative: GENERAL: NAD.Thin elderly W/F SKIN: Warm and dry. NECK: Tracheostomy in place. Pinkish thick secretions noted. HEART: Regular rate and rhythm LUNGS: Few bilateral rhonchi and occ Crackles ABDOMEN: G/J tube in place. has large drainage from G Tube. No surrounding erythema . +BS, soft. EXTREMITIES: No LE edema. Diminished pedal pulses. NEURO: Awake and alert. Reflexes 1 + - Urinary Catheter Management Female External Cath placed during this visit: no Indwelling Urethral Catheter Cath placed during this visit: yes, but has since been removed by the nurse Reason for continuing: Hourly intake/output Insertion date: 03/06/18 Insertion time: 18:00 Removal date: 03/10/18 Removal time: 17:00 Results - Labs CBC & Chem 7: 03/31/18 08:44 03/29/18 05:43 Laboratory Results - last 24 hr 03/30/18 03/31/18 03/31/18 23:27 06:19 08:44 WBC 4.5 RBC 3.34 L Hgb 9.7 L Hct 29.1 L MCV 87.3 MCH 29.1 MCHC 33.3 RDW 19.3 H Plt Count 91 L MPV 9.1 Prelim Diff (Auto) Manual diff required WBC Differential Manual diff final Seg Neuts % (Manual) 49 Band Neuts % (Manual) 7 H Lymphocytes % (Manual) 18 Monocytes % (Manual) 7 Eosinophils % (Manual) 14 H Metamyelocytes % (Man) 2 H Myelocytes % (Man) 1 H Promyelocytes % (Man) 2 H Abs Neuts (Manual) 2.7 Differential Comment . Toxic Vacuolation Present H Platelet Estimate Low L Platelet Morphology Normal Ovalocytes 1+ H POC Glucose 139 H 97 03/31/18 11:27 WBC RBC Hgb Hct MCV MCH MCHC RDW Plt Count MPV Prelim Diff (Auto) WBC Differential Seg Neuts % (Manual) Band Neuts % (Manual) Lymphocytes % (Manual) Monocytes % (Manual) Eosinophils % (Manual) Metamyelocytes % (Man) Myelocytes % (Man) Promyelocytes % (Man) Abs Neuts (Manual) Differential Comment Toxic Vacuolation Platelet Estimate Platelet Morphology Ovalocytes POC Glucose 95 Microbiology 03/29/18 11:00 Wound - Abdominal Gram Stain - Final 03/29/18 11:00 Wound - Abdominal Wound Culture - Preliminary S. aureus MRSA Pseudomonas aeruginosa 03/27/18 11:30 Blood - Peripheral Aerobic Blood Culture - Preliminary No growth in 4 days 03/27/18 11:30 Blood - Peripheral Anaerobic Blood Culture - Preliminary No growth in 4 days 03/27/18 11:39 Blood - Peripheral Aerobic Blood Culture - Preliminary No growth in 4 days 03/27/18 11:39 Blood - Peripheral Anaerobic Blood Culture - Preliminary No growth in 4 days - Imaging Impressions Bone Marrow Biopsy w/ CT 03/31/18 00:00 CONCLUSION: 1. Uncomplicated CT guided bone marrow aspirate. 2. Uncomplicated CT guided bone marrow biopsy. 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 Leave on T Bar 28 % FIO2 all the time. 2. Trach care and lavage PRN 3. Continue Duo nebs q6h 4. PT evaluation to help activity 5. CBC,BMP 6. Cont levsin .125 mg TID S/L 7. Tube feeds at 60 CC. (7) Aspiration pneumonia Qualifiers: Aspiration pneumonia type: unspecified Laterality: unspecified laterality Lung location: unspecified part of lung Qualified Code(s): J69.0 - Pneumonitis due to inhalation of food and vomit
--- NOTE | 2018-03-31 22:38 | US ---
EXAM DATE: 03/31/2018 10:32 PM EDT AGE/SEX: 73 years / Female INDICATIONS: Right lower extremity swelling and redness. CLINICAL DATA: This is the patient's subsequent encounter. Patient reports that signs and symptoms h ave been present for 4 - 6 days and indicates a pain score of 0/10. MEDICAL/SURGICAL HISTORY: Gastroesophageal reflux disease. Hypothyroidism. Arthritis. Ralph t's esophagus. 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 Cholecystectomy. Tonsillectomy. Colonoscopy. Esophageal dilation. EGD. Hernia repair. Oral surgery. Adenoidectomy. COMPARISON: [facility] – [place], [place] VENOUS DOPPLER LEG BI, 03/27/2018. . TECHNIQUE: Venous ultrasound of both lower extremities was performed from the inguinal ligament to t he proximal calf. Real-time, color Doppler and spectral tracing, compression and augmentation techni ques were used. FINDINGS: Occlusive thrombus is again noted in the common femoral, superficial femoral, popliteal an d peroneal veins. Nonocclusive thrombus is noted in the posterior tibial vein. The right iliac vein i s prominent. CONCLUSION: 1. Extensive deep venous thrombosis again noted without significant change. Electronically signed by: Saji Blood MD 03/31/2018 10:36 PM EDT
[2018-04-01] MEDS: Pantoprazole Inj 40 MG Vial IV.PUSH SCH ×2 (01:56→14:23)
[2018-04-01] MEDS: Insulin NovoLOG Aspart Correctional Sugar Inj SQ SCH ×4 (01:57→17:27)
[2018-04-01] MEDS: Levothyroxine 100 MCG Tablet NG/OG SCH (05:46)
[2018-04-01 08:21] LABS: Mean Corpuscular HGB Conc 33.5 % (32.0-36.0); Mean Corpuscular Volume 86.8 fL (80.0-100.0); Mean Platelet Volume 8.9 fL (7.0-11.0); Platelet Count 85 th/mm3 (150-450); Red Blood Count 3.46 mil/mm3 (4.00-5.30); Red Cell Distribution Width 19.1 % (11.6-17.2); White Blood Count 3.4 th/mm3 (4.0-11.0)
[2018-04-01 09:19] LABS: Blast Cells 1 % (0-0); Eosinophils 3 % (0-4); Lymphocytes 20 % (9-44); Metamyelocytes 4 % (0-1); Monocytes 6 % (0-8); Myelocytes 9 % (0-0); Ovalocytes 1+; Toxic Vacuolation Present
[2018-04-01 09:20] LABS: Acanthocytes Occ
--- NOTE | 2018-04-01 10:08 | P.PN ---
Subjective Interval history: Patient seen and examined Afebrile s/p Bone marrow biopsy on 03/31/18 Physical Exam Vital signs: Vital Signs 03/31/18 10:55 03/31/18 11:27 03/31/18 11:30 Temperature 97.9 F Pulse Rate 61 60 Respiratory Rate 14 17 18 Blood Pressure 123/50 L 133/70 Pulse Oximetry 99 03/31/18 11:42 03/31/18 12:12 03/31/18 12:42 Temperature 97.9 F 98.7 F Pulse Rate 60 85 77 Respiratory Rate 19 12 15 Blood Pressure 128/60 123/46 L 118/65 Pulse Oximetry 99 98 98 03/31/18 13:12 03/31/18 20:00 03/31/18 23:03 Temperature 98.2 F 98.4 F Pulse Rate 86 68 Respiratory Rate 14 18 Blood Pressure 98/65 L 159/70 H Pulse Oximetry 98 96 97 04/01/18 00:00 04/01/18 04:00 Temperature 98.2 F 98.0 F Pulse Rate 66 66 Respiratory Rate 16 18 Blood Pressure 148/71 H 161/72 H Pulse Oximetry 98 98 Intake & Output 03/31/18 04/01/18 04/01/18 18:59 06:59 18:59 Intake Total 1005 / 1005 120 / 120 Output Total 800 / 800 Balance 1005 / 1005 -680 / -680 Weight 66.5 kg Intake: Oral 0 / 0 0 / 0 Tube Feeding 0 / 0 Tube Irrigant 120 / 120 Other 1005 / 1005 Output: Urine 600 / 600 Gastric Drainage 200 / 200 Gastrojejunostomy Tube 200 / 200 Other: Other Intake Source Saline Solution # Voids 3 # Incontinent Voids 1 Date of Last Bowel Movement 03/31/18 03/31/18 04/01/18 # Bowel Movements 1 1 # Incontinent Bowel Movements 1 Narrative: GENERAL: NAD.Thin elderly W/F SKIN: Warm and dry. NECK: Tracheostomy in place. Pinkish thick secretions noted. HEART: Regular rate and rhythm LUNGS: Few bilateral rhonchi and occ Crackles ABDOMEN: G/J tube in place. has large drainage from G Tube. No surrounding erythema . +BS, soft. EXTREMITIES: No LE edema. Diminished pedal pulses. NEURO: Awake and alert. Reflexes 1 + - Urinary Catheter Management Female External Cath placed during this visit: no Indwelling Urethral Catheter Cath placed during this visit: yes, but has since been removed by the nurse Reason for continuing: Hourly intake/output Insertion date: 03/06/18 Insertion time: 18:00 Removal date: 03/10/18 Removal time: 17:00 Results - Labs CBC & Chem 7: 04/01/18 07:10 03/29/18 05:43 Laboratory Results - last 24 hr 03/31/18 03/31/18 03/31/18 08:44 11:27 23:58 WBC RBC Hgb Hct MCV MCH MCHC RDW Plt Count MPV Prelim Diff (Auto) WBC Differential Manual diff final Seg Neuts % (Manual) 49 Band Neuts % (Manual) 7 H Lymphocytes % (Manual) 18 Monocytes % (Manual) 7 Eosinophils % (Manual) 14 H Basophils % (Manual) Metamyelocytes % (Man) 2 H Myelocytes % (Man) 1 H Promyelocytes % (Man) 2 H Blast Cells % (Manual) Abs Neuts (Manual) 2.7 Differential Comment Toxic Vacuolation Present H Platelet Estimate Low L Platelet Morphology Normal Ovalocytes 1+ H Acanthocytes (Spur) POC Glucose 95 84 04/01/18 07:10 WBC 3.4 L RBC 3.46 L Hgb 10.0 L Hct 30.0 L MCV 86.8 MCH 29.0 MCHC 33.5 RDW 19.1 H Plt Count 85 L MPV 8.9 Prelim Diff (Auto) Manual diff required WBC Differential Manual diff final Seg Neuts % (Manual) 51 Band Neuts % (Manual) 4 Lymphocytes % (Manual) 20 Monocytes % (Manual) 6 Eosinophils % (Manual) 3 Basophils % (Manual) 2 Metamyelocytes % (Man) 4 H Myelocytes % (Man) 9 H Promyelocytes % (Man) Blast Cells % (Manual) 1 H Abs Neuts (Manual) 2.3 Differential Comment . Toxic Vacuolation Present H Platelet Estimate Low L Platelet Morphology Enlarged H Ovalocytes 1+ H Acanthocytes (Spur) Occ H POC Glucose Microbiology 03/29/18 11:00 Wound - Abdominal Gram Stain - Final 03/29/18 11:00 Wound - Abdominal Wound Culture - Preliminary S. aureus MRSA Pseudomonas aeruginosa 03/27/18 11:30 Blood - Peripheral Aerobic Blood Culture - Preliminary No growth in 4 days 03/27/18 11:30 Blood - Peripheral Anaerobic Blood Culture - Preliminary No growth in 4 days 03/27/18 11:39 Blood - Peripheral Aerobic Blood Culture - Preliminary No growth in 4 days 03/27/18 11:39 Blood - Peripheral Anaerobic Blood Culture - Preliminary No growth in 4 days - Imaging Impressions Bone Marrow Biopsy w/ CT 03/31/18 00:00 CONCLUSION: 1. Uncomplicated CT guided bone marrow aspirate. 2. Uncomplicated CT guided bone marrow biopsy. Venous Doppler Study 03/31/18 00:00 CONCLUSION: 1. Extensive deep venous thrombosis again noted without significant change. Assessment and Plan - Assessment (1) Acute adjustment disorder with depressed mood Code(s): F43.21 - Adjustment disorder with depressed mood Status: Acute (2) Dysphasia Code(s): R47.02 - Dysphasia Status: Acute (3) Respiratory failure Code(s): J96.90 - Respiratory failure, unspecified, unspecified whether with hypoxia or hypercapnia Status: Acute (4) Protein-calorie malnutrition, severe Code(s): E43 - Unspecified severe protein-calorie malnutrition Status: Chronic (5) Laryngeal squamous cell carcinoma Code(s): C32.9 - Malignant neoplasm of larynx, unspecified Status: Acute (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 1. Acute on chronic respiratory failurecurrently improving and resolved on trach with pulmonology following. 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 Aspiration pneumonia - s/p Levaquin - Supplemental O2 3. Anemia, acute on chronic may be due to chronic kidney disease - Pt with dark output in G-tube noted on 03/21. GI was notified and patient underwent EGD showing radiation telangiectasias in the proximal esophagus, esophageal stricture, inflammatory distal esophageal polyp, normal G-tube placement, and no evidence of blood anywhere in the upper GIT -Transfused 1 unit packed red blood cell March 30, 2018 4. Thrombocytopenia - Follow CBC - No signs of active bleeding -hematology following; s/p BM biopsy March 31, 2018 pending report 5. Failure to thrive, protein energy malnutrition - Patient with severe pharyngeal dysphagia, esophageal stricture - G/J tube in place flush with 60 cc free water every 8 hours and Vital 1.5 at 55/hr per nutrition recs . Resume tube feed today 04/01/18 - G-tube to gravity 5. Chronic systolic heart failure - 2D cho 02/23 showing EF 35% with anterior septal hypokinesis and biatrial dilation 6. MRSA/Caitlyn tropicalis UTI - S/P treatment with vancomycin, cefepime, and Diflucan 7. Hypothyroidism - Continue home Levothyroxine 8. Adjustment disorder with depression - Continue Lexapro -Continue Wellbutrin 75 mg BID 9. Coccygeal wound - Wound care following, noted new skin tear to left buttock on 03/25 - Calazime BID and PRN for skin tear - Ultrasorb underpad for moisture - Strict Q2H turns from left to right sides only with limited time spent on back for therapies only - Apply OptiFoam adhesive to coccyx wound Q3D and PRN for soiling or dislodgement. 10. GERD, h/o Barretts - Continue PPI 11- DVT of the right lower extremities - Repeat doppler - continue subq Lovenox -hematology following. (3) Respiratory failure Qualifiers: Chronicity: acute Respiratory failure complication: hypoxia Qualified Code(s ): J96.01 - Acute respiratory failure with hypoxia
[2018-04-01] MEDS: Polyethylene Glycol 3350 17 GM Packet NG/OG SCH (11:18)
[2018-04-01] MEDS: buPROPion 75 MG Tablet NG/OG SCH (11:18)
[2018-04-01] MEDS: Ascorbic Acid 500 MG Tablet G-TUBE SCH (11:18)
[2018-04-01] MEDS: Docusate Sodium Liq 100 MG/10 ML UDC NG/OG SCH (11:18)
[2018-04-01] MEDS: Dextrose 5%/NaCl 0.9% Inj 1,000 ML IV.CONT SCH ×2 (11:24→16:56)
[2018-04-01] MEDS: levoFLOXacin Liq 25 MG/ML 100 ML Bottle NG/OG SCH (11:25)
[2018-04-01] MEDS: Potassium Chloride 25 MEQ Effervescent Tablet J-TUBE SCH (11:25)
--- NOTE | 2018-04-01 14:06 | P.PNONC ---
Subjective Interval history: Patient lying in bed, in no acute distress. She is status post bone marrow biopsy yesterday. She denies pain at the biopsy site. Patient verbalizes that she needs to use the bedpan and needs to be suctioned. She does have purulent mucus in her T-tube. Her RN is at the bedside and is notified. Objective Vital Signs/Intake & Output: Vital Signs 03/31/18 16:00 03/31/18 20:00 03/31/18 23:03 Temperature 98.1 F 97 F L Pulse Rate 68 Respiratory Rate 18 Blood Pressure 159/70 H Pulse Oximetry 96 97 04/01/18 00:00 04/01/18 04:00 04/01/18 08:00 Temperature 97.9 F 98.4 F 98 F Pulse Rate 66 66 72 Respiratory Rate 16 18 14 Blood Pressure 148/71 H 161/72 H 120/88 Pulse Oximetry 98 98 97 04/01/18 11:40 Temperature 98.4 F Pulse Rate 87 Respiratory Rate 14 Blood Pressure 136/84 Pulse Oximetry 96 Intake & Output 03/31/18 04/01/18 04/01/18 18:59 06:59 18:59 Intake Total 1005 / 1005 120 / 120 Output Total 800 / 800 Balance 1005 / 1005 -680 / -680 Weight 66.5 kg Intake: Oral 0 / 0 0 / 0 Tube Feeding 0 / 0 Tube Irrigant 120 / 120 Other 1005 / 1005 Output: Urine 600 / 600 Gastric Drainage 200 / 200 Gastrojejunostomy Tube 200 / 200 Other: Other Intake Source Saline Solution # Voids 3 # Incontinent Voids 1 Date of Last Bowel Movement 03/31/18 03/31/18 04/01/18 # Bowel Movements 1 1 # Incontinent Bowel Movements 1 Result Diagrams: 04/01/18 07:10 03/29/18 05:43 Laboratory Results: Laboratory Results - last 24 hr 03/31/18 04/01/18 04/01/18 23:58 07:10 11:28 WBC 3.4 L RBC 3.46 L Hgb 10.0 L Hct 30.0 L MCV 86.8 MCH 29.0 MCHC 33.5 RDW 19.1 H Plt Count 85 L MPV 8.9 Prelim Diff (Auto) Manual diff required WBC Differential Manual diff final Seg Neuts % (Manual) 51 Band Neuts % (Manual) 4 Lymphocytes % (Manual) 20 Monocytes % (Manual) 6 Eosinophils % (Manual) 3 Basophils % (Manual) 2 Metamyelocytes % (Man) 4 H Myelocytes % (Man) 9 H Blast Cells % (Manual) 1 H Abs Neuts (Manual) 2.3 Differential Comment . Toxic Vacuolation Present H Platelet Estimate Low L Platelet Morphology Enlarged H Ovalocytes 1+ H Acanthocytes (Spur) Occ H POC Glucose 84 78 Culture Results: Microbiology 03/29/18 11:00 Gram Stain - Final Wound - Abdominal Wound Culture - Final S. aureus MRSA Pseudomonas aeruginosa Multidrug Resistant 03/27/18 11:30 Aerobic Blood Culture - Final Blood - Peripheral No growth in 5 days Anaerobic Blood Culture - Final No growth in 5 days 03/27/18 11:39 Aerobic Blood Culture - Final Blood - Peripheral No growth in 5 days Anaerobic Blood Culture - Final No growth in 5 days Imaging Studies: Impressions Venous Doppler Study 03/31/18 00:00 CONCLUSION: 1. Extensive deep venous thrombosis again noted without significant change. Medications: Active Medications Generic Name Dose Route Start Last Admin Trade Name Freq PRN Reason Stop Dose Admin Acetaminophen 650 mg 03/29/18 16:32 03/29/18 17:25 Tylenol PO 650 mg Q4H PRN Administration SEE LABEL COMMENTS Acetaminophen 650 mg 03/07/18 08:32 03/27/18 00:01 Tylenol Liq G-TUBE 650 mg Q6H PRN Administration FEVER Hydrocodone Bitart/Acetaminophen 2 tab 03/30/18 17:25 03/30/18 21:30 [place] 5/325 PO 2 tab Q4H PRN Administration PAIN 6-10 Albuterol 2.5 mg 03/07/18 00:57 03/21/18 19:22 Albuterol Neb (Prn) NEB 2.5 mg Q2HR NEB PRN Administration SHORTNESS OF BREATH/WHEEZING Ascorbic Acid 500 mg 03/08/18 21:00 04/01/18 11:18 Vitamin C G-TUBE 500 mg BID ANN Administration Bupropion HCl 75 mg 03/28/18 21:00 04/01/18 11:18 Wellbutrin NG/OG 75 mg BID ANN Administration Cetirizine HCl 10 mg 03/28/18 21:00 03/31/18 22:55 Zyrtec NG/OG 10 mg HS ANN Administration Docusate Sodium 100 mg 03/28/18 21:00 04/01/18 11:18 Colace Liq NG/OG 100 mg BID ANN Administration Enoxaparin Sodium 70 mg 03/28/18 21:00 03/30/18 20:37 Lovenox Inj SQ Not Given Q12HR [facility] Escitalopram Oxalate 20 mg 03/09/18 09:00 04/01/18 11:19 Lexapro G-TUBE 20 mg DAILY ANN Administration Glycopyrrolate 0.4 mg 03/21/18 16:16 03/29/18 09:55 Robinul Inj IV.PUSH 0.4 mg Q8H PRN Administration thick secretions Hyoscyamine 0.125 mg 03/20/18 10:12 03/27/18 08:31 Levsin Liq SL 0.125 mg Q4H PRN Administration SECRETIONS Hyoscyamine 0.125 mg 03/28/18 17:00 04/01/18 11:25 Levsin PO 0.125 mg Q6H ANN Administration Dextrose/Sodium Chloride 1,000 mls @ 84 mls/hr 03/24/18 18:00 04/01/18 11:24 D5w/Normal Saline Inj IV.CONT Not Given .[id number] [facility] Insulin Aspart 0 unit 03/08/18 18:00 04/01/18 11:28 Novolog Insulin Correctional Sugar Inj SQ Not Given Q6HR [facility] Protocol Levofloxacin 250 mg 03/29/18 11:00 04/01/18 11:25 Levaquin NG/OG 250 mg DAILY@1100 [facility] Administration Levothyroxine Sodium 100 mcg 03/09/18 06:00 04/01/18 05:46 Synthroid NG/OG 100 mcg DAILY@0600 [facility] Administration Multivitamins 1 tab 03/09/18 09:00 04/01/18 11:18 Theragran NG/OG 1 tab DAILY [facility] Administration Ondansetron HCl 4 mg 03/15/18 10:59 03/27/18 21:41 Zofran Odt SL 4 mg Q6H PRN Administration NAUSEA Pantoprazole Sodium 40 mg 03/21/18 14:00 04/01/18 01:56 Protonix Inj IV.PUSH 40 mg Q12H ANN Administration Polyethylene Glycol 17 gm 03/29/18 09:00 04/01/18 11:18 Miralax NG/OG 17 gm BID ANN Administration Potassium Bicarb/Potassium Chloride 25 meq 03/24/18 09:00 04/01/18 11:25 K-Lyte Cl Eff J-TUBE 25 meq DAILY ANN Administration Simethicone 125 mg 03/28/18 17:05 03/29/18 09:55 Phazyme Chew NG/OG 125 mg Q4H PRN Administration RELATING TO BLOATING Sodium Chloride 2 ml 03/07/18 09:00 04/01/18 11:25 Ns Flush IV.FLUSH 2 ml BID ANN Administration Sodium Chloride 2 ml 03/07/18 00:57 03/28/18 20:52 Ns Flush IV.FLUSH 2 ml PRN PRN Administration FLUSH AFTER USING IV ACCESS Sterile Water 60 ml 03/07/18 14:00 04/01/18 06:31 Free Water J-TUBE 60 ml Q8HR ANN Administration Zinc Sulfate 220 mg 03/09/18 09:00 04/01/18 11:18 Zinc-220 NG/OG 220 mg DAILY ANN Administration Objective Remarks: GENERAL: Cachectic elderly female patient, lying in bed. In no acute distress. SKIN: Pale, warm and dry. 1x1 hematoma to lft iliac crest, no redness, swelling or drainage noted. HEAD: Normocephalic. EYES: No scleral icterus. No injection or drainage. NECK: Supple, trachea midline. Tracheostomy with T-tube attached. CARDIOVASCULAR: Regular rate and rhythm without murmurs. RESPIRATORY: Anterior bilateral breath sounds rhonchi throughout, equal bilaterally. No accessory muscle use. Tracheostomy with humidified O2 attached , large amount of purulent mucus in T-tube. GASTROINTESTINAL: Abdomen soft, tender, nondistended. PEG tube to LUQ EXTREMITIES: No cyanosis, or edema. MUSCULOSKELETAL: Decreased muscle tone. NEUROLOGICAL: No obvious focal deficit. Awake & alert. Answers questions appropriately. PSYCHIATRIC: Appropriate mood and affect; insight and judgment normal. Assessment/Plan - Plan Ms. Henson is a 73-year-old woman with history of head and neck cancer. She was initially diagnosed in 2014. Her followup has not been consistent. She is well known patient to Dr. Gopal Pineda, who saw her in January of this year for the anemia. Hematology/oncology is consulted again for the anemia. Plan: 1. Bone marrow biopsy, pending. BM site without swelling, erythema or drainage. 2. H&H stable, will continue to monitor. 3. Continue supportive care. - Attending Statement The exam, history, and the medical decision-making described in the above note were completed with the assistance of the mid-level provider. I reviewed and agree with the findings presented. I attest that I had a [id number] encounter with the patient on the same day, and personally performed and documented my assessment and findings in the medical record. No new c/o. H/H stable to improve. BM bx report pending. Monitor CBC D/W pt son over the phone.
--- NOTE | 2018-04-01 19:08 | P.PN ---
Subjective Interval history: Awake and stable on T bar at 28% Has DVT in Right lower Extremity Tolerates tube feeds . Physical Exam Vital signs: Vital Signs 03/31/18 20:00 03/31/18 23:03 04/01/18 00:00 Temperature 97 F L 97.9 F Pulse Rate 68 66 Respiratory Rate 18 16 Blood Pressure 159/70 H 148/71 H Pulse Oximetry 96 97 98 04/01/18 04:00 04/01/18 08:00 04/01/18 11:40 Temperature 98.4 F 98 F 98.4 F Pulse Rate 66 72 87 Respiratory Rate 18 14 14 Blood Pressure 161/72 H 120/88 136/84 Pulse Oximetry 98 97 96 04/01/18 14:20 Temperature 98.6 F Pulse Rate 77 Respiratory Rate 12 Blood Pressure 105/55 L Pulse Oximetry 98 Intake & Output 04/01/18 04/01/18 04/02/18 06:59 18:59 06:59 Intake Total 120 / 120 1660 / 1660 Output Total 800 / 800 Balance -680 / -680 1660 / 1660 Weight 66.5 kg Intake: IV 1000 / 1000 D5W/Normal Saline Inj 1,000 ML 1000 / 1000 @ 84 mls/hr IV.CONT .[id number] [facility] Rx#:[id number] Oral 0 / 0 Tube Feeding 0 / 0 660 / 660 Tube Irrigant 120 / 120 Output: Urine 600 / 600 Gastric Drainage 200 / 200 Gastrojejunostomy Tube 200 / 200 Other: # Incontinent Voids 1 5 Date of Last Bowel Movement 03/31/18 04/01/18 # Bowel Movements 1 3 # Incontinent Bowel Movements 1 Narrative: GENERAL: NAD.Thin elderly W/F SKIN: Warm and dry. NECK: Tracheostomy in place. Pinkish thick secretions noted. HEART: Regular rate and rhythm LUNGS: Few bilateral rhonchi and occ basal Crackles ABDOMEN: G/J tube in place. has less drainage from G Tube. No surrounding erythema . +BS, soft. EXTREMITIES: Bilat LE edema. Diminished pedal pulses. NEURO: Awake and alert. Reflexes 1 + - Urinary Catheter Management Female External Cath placed during this visit: no Indwelling Urethral Catheter Cath placed during this visit: yes, but has since been removed by the nurse Reason for continuing: Hourly intake/output Insertion date: 03/06/18 Insertion time: 18:00 Removal date: 03/10/18 Removal time: 17:00 Results - Labs CBC & Chem 7: 04/01/18 07:10 03/29/18 05:43 Laboratory Results - last 24 hr 03/31/18 04/01/18 04/01/18 23:58 07:10 11:28 WBC 3.4 L RBC 3.46 L Hgb 10.0 L Hct 30.0 L MCV 86.8 MCH 29.0 MCHC 33.5 RDW 19.1 H Plt Count 85 L MPV 8.9 Prelim Diff (Auto) Manual diff required WBC Differential Manual diff final Seg Neuts % (Manual) 51 Band Neuts % (Manual) 4 Lymphocytes % (Manual) 20 Monocytes % (Manual) 6 Eosinophils % (Manual) 3 Basophils % (Manual) 2 Metamyelocytes % (Man) 4 H Myelocytes % (Man) 9 H Blast Cells % (Manual) 1 H Abs Neuts (Manual) 2.3 Differential Comment . Toxic Vacuolation Present H Platelet Estimate Low L Platelet Morphology Enlarged H Ovalocytes 1+ H Acanthocytes (Spur) Occ H POC Glucose 84 78 04/01/18 17:16 WBC RBC Hgb Hct MCV MCH MCHC RDW Plt Count MPV Prelim Diff (Auto) WBC Differential Seg Neuts % (Manual) Band Neuts % (Manual) Lymphocytes % (Manual) Monocytes % (Manual) Eosinophils % (Manual) Basophils % (Manual) Metamyelocytes % (Man) Myelocytes % (Man) Blast Cells % (Manual) Abs Neuts (Manual) Differential Comment Toxic Vacuolation Platelet Estimate Platelet Morphology Ovalocytes Acanthocytes (Spur) POC Glucose 111 H Microbiology 03/29/18 11:00 Wound - Abdominal Gram Stain - Final 03/29/18 11:00 Wound - Abdominal Wound Culture - Final S. aureus MRSA Pseudomonas aeruginosa Multidrug Resistant 03/27/18 11:30 Blood - Peripheral Aerobic Blood Culture - Final No growth in 5 days 03/27/18 11:30 Blood - Peripheral Anaerobic Blood Culture - Final No growth in 5 days 03/27/18 11:39 Blood - Peripheral Aerobic Blood Culture - Final No growth in 5 days 03/27/18 11:39 Blood - Peripheral Anaerobic Blood Culture - Final No growth in 5 days - Imaging Impressions Venous Doppler Study 03/31/18 00:00 CONCLUSION: 1. Extensive deep venous thrombosis again noted without significant change. 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 - Malignant neoplasm of larynx, unspecified Status: Acute (3) Supraglottic stenosis Code(s): J38.6 - Stenosis of larynx Status: Acute (4) Status post radiation therapy Code(s): Z92.3 - Personal history of irradiation Status: Acute (5) Barretts esophagus Code(s): K22.70 - Rendon's esophagus without dysplasia Status: Acute (6) Dyspnea Code(s): R06.00 - Dyspnea, unspecified Status: Acute (7) Aspiration pneumonia Code(s): J69.0 - Pneumonitis due to inhalation of food and vomit Status: Acute (8) Aspiration into airway Code(s): T17.908A - Unspecified foreign body in respiratory tract, part unspecified causing other injury, initial encounter Status: Acute (9) DVT (deep venous thrombosis) Code(s): I82.409 - Acute embolism and thrombosis of unspecified deep veins of unspecified lower extremity Status: Acute - Plan 1. Leave on T Bar 28 % FIO2 all the time. 2. Trach care and lavage PRN 3. Continue Duo nebs q6h 4. PT evaluation to help activity 5. Robinul .4 mg tid PRN 6. Cont levsin .125 mg TID S/L 7. Tube feeds at 60 CC. 8. Anticoagulation per Hematology. (7) Aspiration pneumonia Qualifiers: Aspiration pneumonia type: unspecified Laterality: unspecified laterality Lung location: unspecified part of lung Qualified Code(s): J69.0 - Pneumonitis due to inhalation of food and vomit
[2018-04-02] MEDS: Docusate Sodium Liq 100 MG/10 ML UDC NG/OG SCH ×3 (00:20→21:56)
[2018-04-02] MEDS: Ascorbic Acid 500 MG Tablet G-TUBE SCH ×3 (00:20→22:05)
[2018-04-02] MEDS: buPROPion 75 MG Tablet NG/OG SCH ×3 (00:20→22:05)
[2018-04-02] MEDS: Polyethylene Glycol 3350 17 GM Packet NG/OG SCH ×3 (00:20→21:56)
[2018-04-02] MEDS: Insulin NovoLOG Aspart Correctional Sugar Inj SQ SCH ×4 (00:21→18:17)
[2018-04-02] MEDS: Pantoprazole Inj 40 MG Vial IV.PUSH SCH ×2 (02:57→16:41)
[2018-04-02] MEDS: Levothyroxine 100 MCG Tablet NG/OG SCH (05:08)
--- NOTE | 2018-04-02 07:10 | XR ---
EXAM DATE: 04/02/2018 7:06 AM EDT AGE/SEX: 73 years / Female INDICATIONS: Short of breath. CLINICAL DATA: This is the patient's subsequent encounter. Patient reports that signs and symptoms h ave been present for 1 month and indicates a pain score of Nonresponsive. MEDICAL/SURGICAL HISTORY: . Laryngeal ca, milan's esophagus, pneumonia, sepsis. . Appendecto my. Hernia repair, tracheostomy. COMPARISON: C, CHEST 1V SINGLE AP, 03/25/2018. . FINDINGS: There is mild haziness to the perivascular structures most likely pulmonary edema. Slight cardiomegaly seen. Focal consolidation is not seen. Tracheostomy tube is present in satisfactory posi tion. Bilateral pleural effusions and left lung base consolidation is difficult to exclude. CONCLUSION: Slight to moderate CHF. Electronically signed by: Bebeto Pelletier MD 04/02/2018 7:08 AM EDT
[2018-04-02] MEDS: Dextrose 5%/NaCl 0.9% Inj 1,000 ML IV.CONT SCH ×2 (07:24→16:42)
[2018-04-02] MEDS: Potassium Chloride 25 MEQ Effervescent Tablet J-TUBE SCH (08:39)
--- NOTE | 2018-04-02 09:22 | P.PN ---
Subjective Interval history: Patient seen and examined Case discussed with RN who reports of loose stool Afebrile Bone marrow biopsy report pending Physical Exam Vital signs: Vital Signs 04/01/18 11:40 04/01/18 14:20 04/01/18 20:00 Temperature 98.4 F 98.6 F 100.5 F H Pulse Rate 87 77 81 Respiratory Rate 14 12 18 Blood Pressure 136/84 105/55 L 125/58 L Pulse Oximetry 96 98 96 04/02/18 00:00 04/02/18 00:45 04/02/18 04:00 Temperature 98.3 F 98.5 F Pulse Rate 67 61 Respiratory Rate 18 18 16 Blood Pressure 130/70 106/56 L Pulse Oximetry 97 95 04/02/18 08:00 Temperature Pulse Rate Respiratory Rate 12 Blood Pressure Pulse Oximetry Intake & Output 04/01/18 04/02/18 04/02/18 18:59 06:59 18:59 Intake Total 1660 / 1660 900 / 900 Output Total 1000 / 1000 Balance 1660 / 1660 -100 / -100 Intake: IV 1000 / 1000 D5W/Normal Saline Inj 1,000 ML 1000 / 1000 @ 84 mls/hr IV.CONT .[id number] [facility] Rx#:[id number] Tube Feeding 660 / 660 660 / 660 Tube Irrigant 120 / 120 Water Bolus Amount 120 / 120 Output: Urine 100 / 100 Urine/Stool Mix 200 / 200 Gastric Drainage 700 / 700 Gastrojejunostomy Tube 700 / 700 Other: # Incontinent Voids 5 1 Date of Last Bowel Movement 04/01/18 04/01/18 04/02/18 # Bowel Movements 3 Narrative: GENERAL: NAD.Thin elderly W/F SKIN: Warm and dry. NECK: Tracheostomy in place. Pinkish thick secretions noted. HEART: Regular rate and rhythm LUNGS: Few bilateral rhonchi and occ basal Crackles ABDOMEN: G/J tube in place. has less drainage from G Tube. No surrounding erythema . +BS, soft. EXTREMITIES: Bilat LE edema. Diminished pedal pulses. NEURO: Awake and alert. Reflexes 1 + - Urinary Catheter Management Female External Cath placed during this visit: no Indwelling Urethral Catheter Cath placed during this visit: yes, but has since been removed by the nurse Reason for continuing: Hourly intake/output Insertion date: 03/06/18 Insertion time: 18:00 Removal date: 03/10/18 Removal time: 17:00 Results - Labs CBC & Chem 7: 04/01/18 07:10 03/29/18 05:43 Laboratory Results - last 24 hr 03/31/18 04/01/18 04/01/18 10:30 07:10 11:28 WBC Differential Manual diff final Seg Neuts % (Manual) 51 Band Neuts % (Manual) 4 Lymphocytes % (Manual) 20 Monocytes % (Manual) 6 Eosinophils % (Manual) 3 Basophils % (Manual) 2 Metamyelocytes % (Man) 4 H Myelocytes % (Man) 9 H Blast Cells % (Manual) 1 H Abs Neuts (Manual) 2.3 Toxic Vacuolation Present H Platelet Estimate Low L Platelet Morphology Enlarged H Ovalocytes 1+ H Acanthocytes (Spur) Occ H POC Glucose 78 Marrow Immunophenotype 04/01/18 04/02/18 04/02/18 17:16 00:18 05:08 WBC Differential Seg Neuts % (Manual) Band Neuts % (Manual) Lymphocytes % (Manual) Monocytes % (Manual) Eosinophils % (Manual) Basophils % (Manual) Metamyelocytes % (Man) Myelocytes % (Man) Blast Cells % (Manual) Abs Neuts (Manual) Toxic Vacuolation Platelet Estimate Platelet Morphology Ovalocytes Acanthocytes (Spur) POC Glucose 111 H 115 H 126 H Marrow Immunophenotype Microbiology 03/29/18 11:00 Wound - Abdominal Gram Stain - Final 03/29/18 11:00 Wound - Abdominal Wound Culture - Final S. aureus MRSA Pseudomonas aeruginosa Multidrug Resistant 03/27/18 11:30 Blood - Peripheral Aerobic Blood Culture - Final No growth in 5 days 03/27/18 11:30 Blood - Peripheral Anaerobic Blood Culture - Final No growth in 5 days 03/27/18 11:39 Blood - Peripheral Aerobic Blood Culture - Final No growth in 5 days 03/27/18 11:39 Blood - Peripheral Anaerobic Blood Culture - Final No growth in 5 days - Imaging Impressions Chest X-Ray 04/02/18 00:00 CONCLUSION: Slight to moderate CHF. Assessment and Plan - Assessment (1) Acute adjustment disorder with depressed mood Code(s): F43.21 - Adjustment disorder with depressed mood Status: Acute (2) Dysphasia Code(s): R47.02 - Dysphasia Status: Acute (3) Respiratory failure Code(s): J96.90 - Respiratory failure, unspecified, unspecified whether with hypoxia or hypercapnia Status: Acute (4) Protein-calorie malnutrition, severe Code(s): E43 - Unspecified severe protein-calorie malnutrition Status: Chronic (5) Laryngeal squamous cell carcinoma Code(s): C32.9 - Malignant neoplasm of larynx, unspecified Status: Acute (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 1. Acute on chronic respiratory failurecurrently improving and resolved on trach with pulmonology following. 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 Aspiration pneumonia - s/p Levaquin - Supplemental O2 3. Anemia, acute on chronic may be due to chronic kidney disease - Pt with dark output in G-tube noted on 03/21. GI was notified and patient underwent EGD showing radiation telangiectasias in the proximal esophagus, esophageal stricture, inflammatory distal esophageal polyp, normal G-tube placement, and no evidence of blood anywhere in the upper GIT -Transfused 1 unit packed red blood cell March 30, 2018 4. Thrombocytopenia - Follow CBC - No signs of active bleeding -hematology following; s/p BM biopsy March 31, 2018 pending report 5. Failure to thrive, protein energy malnutrition - Patient with severe pharyngeal dysphagia, esophageal stricture - G/J tube in place flush with 60 cc free water every 8 hours and Vital 1.5 at 55/hr per nutrition recs . Resume tube feed today 04/01/18 - G-tube to gravity 5. Chronic systolic heart failure - 2D cho 02/23 showing EF 35% with anterior septal hypokinesis and biatrial dilation 6. MRSA/Caitlyn tropicalis UTI - S/P treatment with vancomycin, cefepime, and Diflucan 7. Hypothyroidism - Continue home Levothyroxine 8. Adjustment disorder with depression - Continue Lexapro -Continue Wellbutrin 75 mg BID 9. Coccygeal wound - Wound care following, noted new skin tear to left buttock on 03/25 - Calazime BID and PRN for skin tear - Ultrasorb underpad for moisture - Strict Q2H turns from left to right sides only with limited time spent on back for therapies only - Apply OptiFoam adhesive to coccyx wound Q3D and PRN for soiling or dislodgement. 10. GERD, h/o Barretts - Continue PPI 11- DVT of the right lower extremities - Repeat doppler - continue subq Lovenox -hematology following. 12-Loose stools Check C. difficile PCR and treat accordingly (3) Respiratory failure Qualifiers: Chronicity: acute Respiratory failure complication: hypoxia Qualified Code(s ): J96.01 - Acute respiratory failure with hypoxia
[2018-04-02] MEDS: levoFLOXacin Liq 25 MG/ML 100 ML Bottle NG/OG SCH (11:29)
--- NOTE | 2018-04-02 14:47 | P.PNREH ---
Subjective Interval history: Patient is awake and alert. Resting comfortably in bed. Denies any shortness of breath or chest pain. Some pain in her coccyx area Review of Systems All other systems reviewed negative except as stated in HPI Exam - Physical Examination Vital Signs / I&O: Vital Signs 04/01/18 20:00 04/02/18 00:00 04/02/18 00:45 Temperature 100.5 F H 98.3 F Pulse Rate 81 67 Respiratory Rate 18 18 18 Blood Pressure 125/58 L 130/70 Pulse Oximetry 96 97 04/02/18 04:00 04/02/18 08:00 04/02/18 10:07 Temperature 98.5 F Pulse Rate 61 Respiratory Rate 16 12 Blood Pressure 106/56 L Pulse Oximetry 95 96 Intake & Output 04/01/18 04/02/18 04/02/18 18:59 06:59 18:59 Intake Total 1660 / 1660 900 / 900 Output Total 1000 / 1000 Balance 1660 / 1660 -100 / -100 Intake: IV 1000 / 1000 D5W/Normal Saline Inj 1,000 ML 1000 / 1000 @ 84 mls/hr IV.CONT .[id number] REPLACED BY [facility] Rx#:[id number] Tube Feeding 660 / 660 660 / 660 Tube Irrigant 120 / 120 Water Bolus Amount 120 / 120 Output: Urine 100 / 100 Urine/Stool Mix 200 / 200 Gastric Drainage 700 / 700 Gastrojejunostomy Tube 700 / 700 Other: # Incontinent Voids 5 1 Date of Last Bowel Movement 04/01/18 04/01/18 04/02/18 # Bowel Movements 3 Intake & Output 03/31/18 04/01/18 04/02/18 04/03/18 06:59 06:59 06:59 06:59 Intake Total 3036 / 3036 1125 / 1125 2560 / 2560 Output Total 2400 / 2400 800 / 800 1000 / 1000 Balance 636 / 636 325 / 325 1560 / 1560 Weight 71.9 kg 66.5 kg General: No acute distress Respiratory: BS equal, Coarse breath sounds Date of Last Bowel Movement: 04/02/18 Cardiovascular: Normal rate, Regular rhythm Psychiatric: Cooperative - Neurologic Orientation: oriented to: Self, Situation Neurologic: Other (Follows commands to move both upper and lower extremities) Objective Laboratory Results - last 24 hr 03/31/18 04/01/18 04/02/18 10:30 17:16 00:18 POC Glucose 111 H 115 H Marrow Immunophenotype 04/02/18 04/02/18 05:08 10:42 POC Glucose 126 H 124 H Marrow Immunophenotype Microbiology 03/29/18 11:00 Gram Stain - Final Wound - Abdominal Wound Culture - Final S. aureus MRSA Pseudomonas aeruginosa Multidrug Resistant 03/27/18 11:30 Aerobic Blood Culture - Final Blood - Peripheral No growth in 5 days Anaerobic Blood Culture - Final No growth in 5 days 03/27/18 11:39 Aerobic Blood Culture - Final Blood - Peripheral No growth in 5 days Anaerobic Blood Culture - Final No growth in 5 days Assessment and Plan (1) Weakness Status: Acute Code(s): R53.1 - Weakness (2) Dysphagia Status: Chronic Code(s): R13.10 - Dysphagia, unspecified - Plan Assessment: 1. Medical complexity including dysphagia status post GJ tube placement 02/13/18 , respiratory failure status post tracheostomy placement 03/11/18 2. 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 Rendon's esophagus 4. GERD Recommendations: 1. Continue to mobilize with physical therapy. Patient is now moderate assistance of 2 for transfers and taking several steps in place. Encourage up to seated position carefully monitoring skin and relieving pressure 2. Speech therapy has evaluated swallow and no additional intervention recommended at this time 3. Occupational therapy for independence with ADLs. Now minimal assistance for grooming 4. Will follow in conjunction with medical services regarding ongoing rehab needs at discharge. Bone marrow biopsy is pending. Anticipate patient will need inpatient care at discharge. Will follow for level of care palliative care is following
--- NOTE | 2018-04-02 15:53 | P.PNONC ---
Subjective Interval history: T-max 100.5F. Patient lying in bed, requesting to be suctioned. The RN is at the bedside, suctioning her airway. Objective Vital Signs/Intake & Output: Vital Signs 04/01/18 20:00 04/02/18 00:00 04/02/18 00:45 Temperature 100.5 F H 98.3 F Pulse Rate 81 67 Respiratory Rate 18 18 18 Blood Pressure 125/58 L 130/70 Pulse Oximetry 96 97 04/02/18 04:00 04/02/18 08:00 04/02/18 10:07 Temperature 98.5 F Pulse Rate 61 Respiratory Rate 16 12 Blood Pressure 106/56 L Pulse Oximetry 95 96 Intake & Output 04/01/18 04/02/18 04/02/18 18:59 06:59 18:59 Intake Total 1660 / 1660 900 / 900 Output Total 1000 / 1000 Balance 1660 / 1660 -100 / -100 Intake: IV 1000 / 1000 D5W/Normal Saline Inj 1,000 ML 1000 / 1000 @ 84 mls/hr IV.CONT .[id number] [facility] Rx#:[id number] Tube Feeding 660 / 660 660 / 660 Tube Irrigant 120 / 120 Water Bolus Amount 120 / 120 Output: Urine 100 / 100 Urine/Stool Mix 200 / 200 Gastric Drainage 700 / 700 Gastrojejunostomy Tube 700 / 700 Other: # Incontinent Voids 5 1 Date of Last Bowel Movement 04/01/18 04/01/18 04/02/18 # Bowel Movements 3 Result Diagrams: 04/01/18 07:10 03/29/18 05:43 Laboratory Results: Laboratory Results - last 24 hr 03/31/18 04/01/18 04/02/18 10:30 17:16 00:18 POC Glucose 111 H 115 H Marrow Immunophenotype 04/02/18 04/02/18 05:08 10:42 POC Glucose 126 H 124 H Marrow Immunophenotype Culture Results: Microbiology 03/29/18 11:00 Gram Stain - Final Wound - Abdominal Wound Culture - Final S. aureus MRSA Pseudomonas aeruginosa Multidrug Resistant 03/27/18 11:30 Aerobic Blood Culture - Final Blood - Peripheral No growth in 5 days Anaerobic Blood Culture - Final No growth in 5 days 03/27/18 11:39 Aerobic Blood Culture - Final Blood - Peripheral No growth in 5 days Anaerobic Blood Culture - Final No growth in 5 days Imaging Studies: Impressions Chest X-Ray 04/02/18 00:00 CONCLUSION: Slight to moderate CHF. Medications: Active Medications Generic Name Dose Route Start Last Admin Trade Name Freq PRN Reason Stop Dose Admin Acetaminophen 650 mg 03/29/18 16:32 03/29/18 17:25 Tylenol PO 650 mg Q4H PRN Administration FEVER > 101 F Acetaminophen 650 mg 03/07/18 08:32 03/27/18 00:01 Tylenol Liq G-TUBE 650 mg Q6H PRN Administration FEVER Hydrocodone Bitart/Acetaminophen 2 tab 03/30/18 17:25 04/02/18 00:15 [place] 5/325 PO 2 tab Q4H PRN Administration PAIN 6-10 Albuterol 2.5 mg 03/07/18 00:57 03/21/18 19:22 Albuterol Neb (Prn) NEB 2.5 mg Q2HR NEB PRN Administration SHORTNESS OF BREATH/WHEEZING Ascorbic Acid 500 mg 03/08/18 21:00 04/02/18 08:39 Vitamin C G-TUBE 500 mg BID ANN Administration Bupropion HCl 75 mg 03/28/18 21:00 04/02/18 08:39 Wellbutrin NG/OG 75 mg BID ANN Administration Cetirizine HCl 10 mg 03/28/18 21:00 04/02/18 00:20 Zyrtec NG/OG 10 mg HS ANN Administration Docusate Sodium 100 mg 03/28/18 21:00 04/02/18 08:39 Colace Liq NG/OG Not Given BID ANN Enoxaparin Sodium 70 mg 03/28/18 21:00 03/30/18 20:37 Lovenox Inj SQ Not Given Q12HR ANN Escitalopram Oxalate 20 mg 03/09/18 09:00 04/02/18 08:39 Lexapro G-TUBE 20 mg DAILY ANN Administration Glycopyrrolate 0.4 mg 03/21/18 16:16 03/29/18 09:55 Robinul Inj IV.PUSH 0.4 mg Q8H PRN Administration thick secretions Hyoscyamine 0.125 mg 03/20/18 10:12 03/27/18 08:31 Levsin Liq SL 0.125 mg Q4H PRN Administration SECRETIONS Hyoscyamine 0.125 mg 03/28/18 17:00 04/02/18 11:29 Levsin PO 0.125 mg Q6H ANN Administration Dextrose/Sodium Chloride 1,000 mls @ 84 mls/hr 03/24/18 18:00 04/02/18 07:24 D5w/Normal Saline Inj IV.CONT Not Given .[id number] [facility] Insulin Aspart 0 unit 03/08/18 18:00 04/02/18 11:29 Novolog Insulin Correctional Sugar Inj SQ Not Given Q6HR [facility] Protocol Levofloxacin 250 mg 03/29/18 11:00 04/02/18 11:29 Levaquin NG/OG 250 mg DAILY@1100 ANN Administration Levothyroxine Sodium 100 mcg 03/09/18 06:00 04/02/18 05:08 Synthroid NG/OG 100 mcg DAILY@0600 ANN Administration Multivitamins 1 tab 03/09/18 09:00 04/02/18 08:39 Theragran NG/OG 1 tab DAILY ANN Administration Ondansetron HCl 4 mg 03/15/18 10:59 03/27/18 21:41 Zofran Odt SL 4 mg Q6H PRN Administration NAUSEA Pantoprazole Sodium 40 mg 03/21/18 14:00 04/02/18 02:57 Protonix Inj IV.PUSH 40 mg Q12H ANN Administration Polyethylene Glycol 17 gm 03/29/18 09:00 04/02/18 08:39 Miralax NG/OG Not Given BID [facility] Potassium Bicarb/Potassium Chloride 25 meq 03/24/18 09:00 04/02/18 08:39 K-Lyte Cl Eff J-TUBE 25 meq DAILY ANN Administration Simethicone 125 mg 03/28/18 17:05 03/29/18 09:55 Phazyme Chew NG/OG 125 mg Q4H PRN Administration RELATING TO BLOATING Sodium Chloride 2 ml 03/07/18 09:00 04/02/18 08:39 Ns Flush IV.FLUSH 2 ml BID ANN Administration Sodium Chloride 2 ml 03/07/18 00:57 03/28/18 20:52 Ns Flush IV.FLUSH 2 ml PRN PRN Administration FLUSH AFTER USING IV ACCESS Sterile Water 60 ml 03/07/18 14:00 04/02/18 05:08 Free Water J-TUBE 60 ml Q8HR ANN Administration Zinc Sulfate 220 mg 03/09/18 09:00 04/02/18 08:40 Zinc-220 NG/OG 220 mg DAILY ANN Administration Objective Remarks: GENERAL: Cachectic elderly female patient, lying in bed. In no acute distress. SKIN: Pale, warm and dry. HEAD: Normocephalic. EYES: No scleral icterus. No injection or drainage. NECK: Supple, trachea midline. Tracheostomy with T-tube attached. CARDIOVASCULAR: Regular rate and rhythm without murmurs. RESPIRATORY: Anterior bilateral breath sounds clear with occasional scattered rhonchi, equal bilaterally. Coughing. Tracheostomy with humidified O2 attached. GASTROINTESTINAL: Abdomen soft, tender, nondistended. PEG tube to LUQ EXTREMITIES: No cyanosis, or edema. Bilateral sequentials in place. MUSCULOSKELETAL: Decreased muscle tone. NEUROLOGICAL: No obvious focal deficit. Awake & alert. PSYCHIATRIC: Appropriate mood and affect; insight and judgment normal. Assessment/Plan - Plan Ms. Henson is a 73-year-old woman with history of head and neck cancer. She was initially diagnosed in 2014. Her followup has not been consistent. She is well known patient to Dr. Gopal Pineda, who saw her in January of this year for the anemia. Hematology/oncology is consulted again for the anemia. Plan: 1. Bone marrow biopsy shows possible dysgranulopoiesis, await cytogenetics. 2. Pancytopenia. Hemoglobin with some improvement. We will continue to monitor. 3. DVT, continue Lovenox injections. 4. Noted wound culture growing S aureus MRSA and pseudomonas aeruginosa, Resistant to levaquin. We will defer antibiotic selection to attending. - Attending Statement The exam, history, and the medical decision-making described in the above note were completed with the assistance of the mid-level provider. I reviewed and agree with the findings presented. I attest that I had a [id number] encounter with the patient on the same day, and personally performed and documented my assessment and findings in the medical record. Denies any new c/o Monitor CBC . BM bx result pending.
--- NOTE | 2018-04-02 18:49 | P.PN ---
Subjective Interval history: She is on a T bar at 30 % and is stable. Has bloody trach secretions. Bone marrow Biopsy result pending. Physical Exam Vital signs: Vital Signs 04/01/18 20:00 04/02/18 00:00 04/02/18 00:45 Temperature 100.5 F H 98.3 F Pulse Rate 81 67 Respiratory Rate 18 18 18 Blood Pressure 125/58 L 130/70 Pulse Oximetry 96 97 04/02/18 04:00 04/02/18 08:00 04/02/18 10:07 Temperature 98.5 F 98.4 F Pulse Rate 61 72 Respiratory Rate 16 14 Blood Pressure 106/56 L 127/68 Pulse Oximetry 95 99 96 04/02/18 12:00 04/02/18 16:00 Temperature 99 F 100.1 F H Pulse Rate 77 82 Respiratory Rate 16 12 Blood Pressure 132/86 129/59 L Pulse Oximetry 98 96 Intake & Output 04/01/18 04/02/18 04/02/18 18:59 06:59 18:59 Intake Total 1660 / 1660 900 / 900 660 / 660 Output Total 1000 / 1000 Balance 1660 / 1660 -100 / -100 660 / 660 Intake: IV 1000 / 1000 D5W/Normal Saline Inj 1,000 ML 1000 / 1000 @ 84 mls/hr IV.CONT .[id number] [facility] Rx#:[id number] Tube Feeding 660 / 660 660 / 660 660 / 660 Tube Irrigant 120 / 120 Water Bolus Amount 120 / 120 Output: Urine 100 / 100 Urine/Stool Mix 200 / 200 Gastric Drainage 700 / 700 Gastrojejunostomy Tube 700 / 700 Other: # Incontinent Voids 5 1 4 Date of Last Bowel Movement 04/01/18 04/01/18 04/02/18 # Bowel Movements 3 Narrative: GENERAL: NAD.Thin elderly W/F alert and responds to questions SKIN: Warm and dry. NECK: Tracheostomy in place. Pinkish thick secretions noted. HEART: Regular rate and rhythm LUNGS: Few bilateral rhonchi and occ basal Crackles ABDOMEN: G/J tube in place. has mild drainage from G Tube. No surrounding erythema . +BS, soft. EXTREMITIES: Bilateral LE edema. Diminished pedal pulses. NEURO: Awake and alert. Reflexes 1 + - Urinary Catheter Management Female External Cath placed during this visit: no Indwelling Urethral Catheter Cath placed during this visit: yes, but has since been removed by the nurse Reason for continuing: Hourly intake/output Insertion date: 03/06/18 Insertion time: 18:00 Removal date: 03/10/18 Removal time: 17:00 Results - Labs CBC & Chem 7: 04/01/18 07:10 03/29/18 05:43 Laboratory Results - last 24 hr 03/31/18 04/02/18 04/02/18 10:30 00:18 05:08 POC Glucose 115 H 126 H Marrow Immunophenotype 04/02/18 04/02/18 10:42 18:13 POC Glucose 124 H 127 H Marrow Immunophenotype - Imaging Impressions Chest X-Ray 04/02/18 00:00 CONCLUSION: Slight to moderate CHF. 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 - Malignant neoplasm of larynx, unspecified Status: Acute (3) Supraglottic stenosis Code(s): J38.6 - Stenosis of larynx Status: Acute (4) Status post radiation therapy Code(s): Z92.3 - Personal history of irradiation Status: Acute (5) Barretts esophagus Code(s): K22.70 - Rendon's esophagus without dysplasia Status: Acute (6) Dyspnea Code(s): R06.00 - Dyspnea, unspecified Status: Acute (7) Aspiration pneumonia Code(s): J69.0 - Pneumonitis due to inhalation of food and vomit Status: Acute (8) Aspiration into airway Code(s): T17.908A - Unspecified foreign body in respiratory tract, part unspecified causing other injury, initial encounter Status: Acute (9) DVT (deep venous thrombosis) Code(s): I82.409 - Acute embolism and thrombosis of unspecified deep veins of unspecified lower extremity Status: Acute - Plan 1. Leave on T Bar 28 % FIO2 all the time. 2. Trach care and lavage PRN 3. Continue Duo nebs q6h 4. PT evaluation to help activity 5. CBC,BMP in am 6. Cont levsin .125 mg TID S/L 7. Tube feeds at 60 CC. 8. Anticoagulation per Hematology. (7) Aspiration pneumonia Qualifiers: Aspiration pneumonia type: unspecified Laterality: unspecified laterality Lung location: unspecified part of lung Qualified Code(s): J69.0 - Pneumonitis due to inhalation of food and vomit
[2018-04-02] MEDS: Enoxaparin Inj 80 MG/0.8 ML Syringe SQ SCH (22:17)
[2018-04-03] MEDS: Insulin NovoLOG Aspart Correctional Sugar Inj SQ SCH ×4 (01:54→17:52)
[2018-04-03] MEDS: Pantoprazole Inj 40 MG Vial IV.PUSH SCH ×2 (01:55→13:18)
[2018-04-03] MEDS: Dextrose 5%/NaCl 0.9% Inj 1,000 ML IV.CONT SCH ×2 (05:42→17:51)
[2018-04-03] MEDS: Levothyroxine 100 MCG Tablet NG/OG SCH (06:27)
[2018-04-03 08:29] LABS: Calcium 7.4 mg/dL (8.5-10.1); Carbon Dioxide 27.5 meq/L (21.0-32.0); Potassium 4.2 meq/L (3.5-5.1)
[2018-04-03 08:51] LABS: Total Protein 5.1 g/dL (6.4-8.2)
--- NOTE | 2018-04-03 09:09 | P.PN ---
Subjective Interval history: Nursing denies any deterioration since last night. Patient herself is tracheostomy and does try to contact by mouthing words at best. Does maintain good eye contact. Physical Exam Vital signs: Vital Signs 04/02/18 10:07 04/02/18 12:00 04/02/18 16:00 Temperature 99 F 100.1 F H Pulse Rate 77 82 Respiratory Rate 16 12 Blood Pressure 132/86 129/59 L Pulse Oximetry 96 98 96 04/02/18 20:00 04/03/18 00:00 04/03/18 04:00 Temperature 98.7 F Pulse Rate 100 H Respiratory Rate 16 16 16 Blood Pressure 86/54 L Pulse Oximetry 95 Intake & Output 04/02/18 04/03/18 04/03/18 18:59 06:59 18:59 Intake Total 660 / 660 1425 / 1425 Output Total 750 / 750 Balance 660 / 660 675 / 675 Weight 65.9 kg Intake: Tube Feeding 660 / 660 1425 / 1425 Output: Urine 500 / 500 Gastric Drainage 250 / 250 Gastrojejunostomy Tube 250 / 250 Other: # Incontinent Voids 4 Date of Last Bowel Movement 04/02/18 04/02/18 Narrative: Clear lungs bilaterally, unlabored breathing Heart sounds regular rate rhythm, no murmurs Is awake, follows motor commands gross with all 4 extremities Has tracheostomy in place - Urinary Catheter Management Female External Cath placed during this visit: no Indwelling Urethral Catheter Cath placed during this visit: yes, but has since been removed by the nurse Reason for continuing: Hourly intake/output Insertion date: 03/06/18 Insertion time: 18:00 Removal date: 03/10/18 Removal time: 17:00 Results - Labs CBC & Chem 7: 04/03/18 13:34 04/03/18 07:11 Laboratory Results - last 24 hr 03/29/18 04/02/18 04/02/18 19:05 10:42 18:06 Sodium Potassium Chloride Carbon Dioxide Anion Gap BUN Creatinine Estimated GFR POC Glucose 124 H Random Glucose Calcium Prot Corrected Calcium Erythropoietin 9.0 Total Protein Stl C.difficile Tox PCR Negative St C. diff Tox Epid 027 Negative 04/02/18 04/03/18 04/03/18 18:13 01:43 07:11 Sodium 136 Potassium 4.2 Chloride 100 Carbon Dioxide 27.5 Anion Gap 9 BUN 32 H Creatinine 1.03 H Estimated GFR 53 L POC Glucose 127 H 106 Random Glucose 121 H Calcium 7.4 L* Prot Corrected Calcium 8.5 Erythropoietin Total Protein 5.1 L Stl C.difficile Tox PCR St C. diff Tox Epid 027 Assessment and Plan - Assessment (1) Acute adjustment disorder with depressed mood Code(s): F43.21 - Adjustment disorder with depressed mood Status: Acute (2) Dysphasia Code(s): R47.02 - Dysphasia Status: Acute (3) Respiratory failure Code(s): J96.90 - Respiratory failure, unspecified, unspecified whether with hypoxia or hypercapnia Status: Acute (4) Protein-calorie malnutrition, severe Code(s): E43 - Unspecified severe protein-calorie malnutrition Status: Chronic (5) Laryngeal squamous cell carcinoma Code(s): C32.9 - Malignant neoplasm of larynx, unspecified Status: Acute (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 She has already been treated for pneumonia as well as a MRSA/ Caitlyn tropicalis UTI with multiple antibiotics. Abdominal wound - at this time is growing MRSA and multidrug resistant Pseudomonas. -Consulting infectious disease chronic respiratory failurecurrently improving and resolved on trach with pulmonology following. - Patient with history of supraglottic laryngeal cancer s/p radiation and chemo resulting in radiation-induced laryngeal scarring and recurrent aspiration - S/P tracheostomy 03/11 with general surgery - Pulmonology following for trach care - Bronchodilators - On T-piece Anemia, acute on chronic may be due to chronic kidney disease - Pt with dark output in G-tube noted on 03/21. GI was notified and patient underwent EGD showing radiation telangiectasias in the proximal esophagus, esophageal stricture, inflammatory distal esophageal polyp, normal G-tube placement, and no evidence of blood anywhere in the upper GIT -Transfused 1 unit packed red blood cell March 30, 2018 Thrombocytopenia - No signs of active bleeding -hematology following; s/p BM biopsy March 31, 2018 pending report Failure to thrive, protein energy malnutrition - Patient with severe pharyngeal dysphagia, esophageal stricture - G/J tube in place flush with 60 cc free water every 8 hours and Vital 1.5 at 55/hr per nutrition recs . Resume tube feed today 04/01/18 - G-tube to gravity echo from 03/13/18 shows EF of 55-60%no evidence of sCHF, Hypothyroidism - Continue home Levothyroxine Adjustment disorder with depression - Continue Lexapro -Continue Wellbutrin 75 mg BID Coccygeal wound - Wound care following, noted new skin tear to left buttock on 03/25 - Calazime BID and PRN for skin tear - Ultrasorb underpad for moisture - Strict Q2H turns from left to right sides only with limited time spent on back for therapies only - Apply OptiFoam adhesive to coccyx wound Q3D and PRN for soiling or dislodgement. GERD, h/o Barretts - Continue PPI DVT of the right lower extremities - Repeat doppler - continue subq Lovenox -hematology following. Loose stools Likely secondary to tube feeds, C. difficile is negative (3) Respiratory failure Qualifiers: Chronicity: acute Respiratory failure complication: hypoxia Qualified Code(s ): J96.01 - Acute respiratory failure with hypoxia
[2018-04-03] MEDS: Docusate Sodium Liq 100 MG/10 ML UDC NG/OG SCH ×2 (10:20→22:06)
[2018-04-03] MEDS: Polyethylene Glycol 3350 17 GM Packet NG/OG SCH ×2 (10:24→22:06)
[2018-04-03] MEDS: Enoxaparin Inj 80 MG/0.8 ML Syringe SQ SCH ×2 (10:25→22:05)
[2018-04-03] MEDS: Glycopyrrolate 0.2 MG/ML Vial IV.PUSH PRN (10:26)
[2018-04-03] MEDS: Ascorbic Acid 500 MG Tablet G-TUBE SCH ×2 (10:26→22:07)
[2018-04-03] MEDS: buPROPion 75 MG Tablet NG/OG SCH ×2 (10:26→22:07)
[2018-04-03] MEDS: Potassium Chloride 25 MEQ Effervescent Tablet J-TUBE SCH (10:27)
[2018-04-03] MEDS: levoFLOXacin Liq 25 MG/ML 100 ML Bottle NG/OG SCH (10:28)
--- NOTE | 2018-04-03 13:38 | P.PNONC ---
Subjective Interval history: Patient approach, lying in bed. She has no complaints at this time. Objective Vital Signs/Intake & Output: Vital Signs 04/02/18 16:00 04/02/18 20:00 04/03/18 00:00 Temperature 100.1 F H 98.7 F Pulse Rate 82 100 H Respiratory Rate 12 16 16 Blood Pressure 129/59 L 86/54 L Pulse Oximetry 96 95 04/03/18 04:00 04/03/18 10:35 Temperature Pulse Rate Respiratory Rate 16 Blood Pressure Pulse Oximetry 97 Intake & Output 04/02/18 04/03/18 04/03/18 18:59 06:59 18:59 Intake Total 660 / 660 1425 / 1425 Output Total 750 / 750 Balance 660 / 660 675 / 675 Weight 65.9 kg Intake: Tube Feeding 660 / 660 1425 / 1425 Output: Urine 500 / 500 Gastric Drainage 250 / 250 Gastrojejunostomy Tube 250 / 250 Other: # Incontinent Voids 4 Date of Last Bowel Movement 04/02/18 04/02/18 Result Diagrams: 04/03/18 13:34 04/03/18 07:11 Laboratory Results: Laboratory Results - last 24 hr 03/29/18 04/02/18 04/02/18 19:05 18:06 18:13 Sodium Potassium Chloride Carbon Dioxide Anion Gap BUN Creatinine Estimated GFR POC Glucose 127 H Random Glucose Calcium Prot Corrected Calcium Erythropoietin 9.0 Total Protein Stl C.difficile Tox PCR Negative St C. diff Tox Epid 027 Negative 04/03/18 04/03/18 01:43 07:11 Sodium 136 Potassium 4.2 Chloride 100 Carbon Dioxide 27.5 Anion Gap 9 BUN 32 H Creatinine 1.03 H Estimated GFR 53 L POC Glucose 106 Random Glucose 121 H Calcium 7.4 L* Prot Corrected Calcium 8.5 Erythropoietin Total Protein 5.1 L Stl C.difficile Tox PCR St C. diff Tox Epid 027 Culture Results: Microbiology 03/29/18 11:00 Gram Stain - Final Wound - Abdominal Wound Culture - Final S. aureus MRSA Pseudomonas aeruginosa Multidrug Resistant 03/27/18 11:30 Aerobic Blood Culture - Final Blood - Peripheral No growth in 5 days Anaerobic Blood Culture - Final No growth in 5 days 03/27/18 11:39 Aerobic Blood Culture - Final Blood - Peripheral No growth in 5 days Anaerobic Blood Culture - Final No growth in 5 days Medications: Active Medications Generic Name Dose Route Start Last Admin Trade Name Freq PRN Reason Stop Dose Admin Acetaminophen 650 mg 03/29/18 16:32 03/29/18 17:25 Tylenol PO 650 mg Q4H PRN Administration FEVER > 101 F Acetaminophen 650 mg 03/07/18 08:32 03/27/18 00:01 Tylenol Liq G-TUBE 650 mg Q6H PRN Administration FEVER Hydrocodone Bitart/Acetaminophen 2 tab 03/30/18 17:25 04/03/18 04:42 Manley 5/325 PO 2 tab Q4H PRN Administration PAIN 6-10 Albuterol 2.5 mg 03/07/18 00:57 03/21/18 19:22 Albuterol Neb (Prn) NEB 2.5 mg Q2HR NEB PRN Administration SHORTNESS OF BREATH/WHEEZING Ascorbic Acid 500 mg 03/08/18 21:00 04/03/18 10:26 Vitamin C G-TUBE 500 mg BID ANN Administration Bupropion HCl 75 mg 03/28/18 21:00 04/03/18 10:26 Wellbutrin NG/OG 75 mg BID ANN Administration Cetirizine HCl 10 mg 03/28/18 21:00 04/02/18 22:05 Zyrtec NG/OG 10 mg HS ANN Administration Docusate Sodium 100 mg 03/28/18 21:00 04/03/18 10:20 Colace Liq NG/OG Not Given BID ANN Enoxaparin Sodium 70 mg 03/28/18 21:00 04/03/18 10:25 Lovenox Inj SQ 70 mg Q12HR ANN Administration Escitalopram Oxalate 20 mg 03/09/18 09:00 04/03/18 10:26 Lexapro G-TUBE 20 mg DAILY ANN Administration Glycopyrrolate 0.4 mg 03/21/18 16:16 04/03/18 10:26 Robinul Inj IV.PUSH 0.4 mg Q8H PRN Administration thick secretions Hyoscyamine 0.125 mg 03/20/18 10:12 03/27/18 08:31 Levsin Liq SL 0.125 mg Q4H PRN Administration SECRETIONS Hyoscyamine 0.125 mg 03/28/18 17:00 04/03/18 10:26 Levsin PO 0.125 mg Q6H ANN Administration Dextrose/Sodium Chloride 1,000 mls @ 84 mls/hr 03/24/18 18:00 04/03/18 05:42 D5w/Normal Saline Inj IV.CONT Not Given .[id number] [facility] Insulin Aspart 0 unit 03/08/18 18:00 04/03/18 13:16 Novolog Insulin Correctional Sugar Inj SQ Not Given Q6HR [facility] Protocol Levofloxacin 250 mg 03/29/18 11:00 04/03/18 10:28 Levaquin NG/OG 250 mg DAILY@1100 ANN Administration Levothyroxine Sodium 100 mcg 03/09/18 06:00 04/03/18 06:27 Synthroid NG/OG 100 mcg DAILY@0600 ANN Administration Multivitamins 1 tab 03/09/18 09:00 04/03/18 10:25 Theragran NG/OG 1 tab DAILY ANN Administration Ondansetron HCl 4 mg 03/15/18 10:59 03/27/18 21:41 Zofran Odt SL 4 mg Q6H PRN Administration NAUSEA Pantoprazole Sodium 40 mg 03/21/18 14:00 04/03/18 13:18 Protonix Inj IV.PUSH 40 mg Q12H ANN Administration Polyethylene Glycol 17 gm 03/29/18 09:00 04/03/18 10:24 Miralax NG/OG Not Given BID [facility] Potassium Bicarb/Potassium Chloride 25 meq 03/24/18 09:00 04/03/18 10:27 K-Lyte Cl Eff J-TUBE 25 meq DAILY ANN Administration Simethicone 125 mg 03/28/18 17:05 03/29/18 09:55 Phazyme Chew NG/OG 125 mg Q4H PRN Administration RELATING TO BLOATING Sodium Chloride 2 ml 03/07/18 09:00 04/03/18 10:27 Ns Flush IV.FLUSH 2 ml BID ANN Administration Sodium Chloride 2 ml 03/07/18 00:57 03/28/18 20:52 Ns Flush IV.FLUSH 2 ml PRN PRN Administration FLUSH AFTER USING IV ACCESS Sterile Water 60 ml 03/07/18 14:00 04/03/18 13:18 Free Water J-TUBE 60 ml Q8HR ANN Administration Zinc Sulfate 220 mg 03/09/18 09:00 04/03/18 10:26 Zinc-220 NG/OG 220 mg DAILY ANN Administration Objective Remarks: GENERAL: Cachectic elderly female patient, lying in bed. In no acute distress. SKIN: Pale, warm and dry. HEAD: Normocephalic. EYES: No scleral icterus. No injection or drainage. NECK: Supple, trachea midline. +Tracheostomy. CARDIOVASCULAR: Regular rate and rhythm without murmurs. RESPIRATORY: Anterior bilateral breath sounds rhonchi, equal bilaterally. Tracheostomy with T-tube in place, humidified O2 attached. GASTROINTESTINAL: Abdomen soft, tender, nondistended. PEG tube to LUQ. EXTREMITIES: No cyanosis, or edema. Bilateral sequentials in place. MUSCULOSKELETAL: Decreased muscle tone. NEUROLOGICAL: No obvious focal deficit. Awake & alert. Answers questions with 1- 2 words. PSYCHIATRIC: Appropriate mood and affect; insight and judgment normal. Assessment/Plan - Plan Ms. Henson is a 73-year-old woman with history of head and neck cancer. She was initially diagnosed in 2014. Her followup has not been consistent. She is well known patient to Dr. Gopal Pineda, who saw her in January of this year for the anemia. Hematology/oncology is consulted again for the anemia. Plan: 1. 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 Patient's son was notified of these results by Dr. Pineda. 2. Pancytopenia, continues. Hemoglobin with some improvement. 3. DVT, continue Lovenox injections. 4. Patient is cleared from hematology standpoint for discharge to rehab. Follow -up as an outpatient in 2 weeks. - Attending Statement The exam, history, and the medical decision-making described in the above note were completed with the assistance of the mid-level provider. I reviewed and agree with the findings presented. I attest that I had a [id number] encounter with the patient on the same day, and personally performed and documented my assessment and findings in the medical record. Pt denies any new c/o. D/W her BM bx result which shows MDS (RAEB) Chromosomes are pending. D/W pt son over the phone. Explain MDS and its treatment. She is not a candidate for chemo. I recommended hospice for BSC. He has decline it at this time. He wants her mom to go to rehab and do PRBC as outpt. Pt is cleared for d/c CBC today = HG 9.5
[2018-04-03 14:00] LABS: Hematocrit 28.3 % (35.0-46.0); Hemoglobin 9.5 gm/dL (11.6-15.3); Mean Corpuscular HGB Conc 33.5 % (32.0-36.0); Mean Corpuscular Hemoglobin 28.8 pg (27.0-34.0); Platelet Count 90 th/mm3 (150-450); Red Blood Count 3.29 mil/mm3 (4.00-5.30); Red Cell Distribution Width 18.8 % (11.6-17.2); White Blood Count 4.2 th/mm3 (4.0-11.0)
[2018-04-03 15:17] LABS: Eosinophils 3 % (0-4); Lymphocytes 10 % (9-44); Metamyelocytes 1 % (0-1); Monocytes 11 % (0-8); Myelocytes 1 % (0-0); Promyelocyte 2 % (0-0); Toxic Vacuolation Present
[2018-04-03 15:18] LABS: Ovalocytes 1+; Platelet Morphology Normal (Normal)
--- NOTE | 2018-04-03 17:16 | P.CONID ---
History of Present Illness Service: ID Consult date: 04/03/18 Requesting Physician: Wesly Sahu Reason for Consult: MDRO from PEG wound Primary Care Provider: No Primary Care Physician History of Present Illness: pt unable to provide history History was obtained from the chart 73 yo female wuth h/o of head and neck cancer sp trach and PEG apparently developped heavy secretions fom her PEG site and they were cultured CUlture was positive for MDRO PSAE and MRSA Pt has low grade fever She is cytopenic, though her ANC is 3200 Review of Systems other (trached) PMFSH - History History Provided By: Patient, Medical Record, Law Enforcement - Medical History Medical History: Medical History (Last Reviewed 04/04/18 @ 05:01 by Maribell Canchola MD) Arthritis Barretts esophagus GERD (gastroesophageal reflux disease) Hypothyroidism 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 - Surgical History Surgical History: Surgical History (Last Reviewed 04/04/18 @ 05:01 by Maribell Canchola MD) History of colonoscopy History of oral surgery History of esophageal dilatation (Resolved) History of cholecystectomy History of esophagogastroduodenoscopy (EGD) History of hernia repair History of tonsillectomy and adenoidectomy - Family History Family History: Family History (Last Reviewed 04/22/18 @ 23:12 by Maribell Canchola MD) Mother Breast cancer Father Heart problem - Tobacco History Second Hand Smoke Exposure: No Smoking Status: Former smoker (Prior smoker for over 25 years) Tobacco Type: Cigarettes years: 30 - Alcohol History How Often Do You Have a Drink Containing Alcohol: Unable to Obtain - Substance Use History Substance History: No History of Abuse - Immunization History Tetanus Immunization: Unsure Hx Influenza Vaccine This Season: Unable to Assess Medications and Allergies Active Medications: Active Medications Acetaminophen (Tylenol) 650 mg PO Q4H PRN PRN Reason: FEVER > 101 F Last Admin: 03/29/18 17:25 Dose: 650 mg Acetaminophen (Tylenol Liq) 650 mg G-TUBE Q6H PRN PRN Reason: FEVER Last Admin: 03/27/18 00:01 Dose: 650 mg Hydrocodone Bitart/Acetaminophen ([place] 5/325) 1 tab PO Q4H PRN PRN Reason: PAIN 2-5 Hydrocodone Bitart/Acetaminophen ([place] 5/325) 2 tab PO Q4H PRN PRN Reason: PAIN 6-10 Last Admin: 04/03/18 15:33 Dose: 2 tab Al Hydroxide/Mg Hydroxide (Milk Of Magnesia Liq) 30 ml NG/OG Q12H PRN PRN Reason: Mild Constipation Albuterol (Duoneb Neb (Prn)) 1 ampul NEB Q2HR NEB PRN PRN Reason: DYSPNEA Albuterol (Albuterol Neb (Prn)) 2.5 mg NEB Q2HR NEB PRN PRN Reason: SHORTNESS OF BREATH/WHEEZING Last Admin: 03/21/18 19:22 Dose: 2.5 mg Ascorbic Acid (Vitamin C) 500 mg G-TUBE BID [facility] Last Admin: 04/03/18 10:26 Dose: 500 mg Bisacodyl (Dulcolax Supp) 10 mg RECTAL DAILY PRN PRN Reason: SEVERE CONSITIPATION Bupropion HCl (Wellbutrin) 75 mg NG/OG BID [facility] Last Admin: 04/03/18 10:26 Dose: 75 mg Cetirizine HCl (Zyrtec) 10 mg NG/OG HS [facility] Last Admin: 04/02/18 22:05 Dose: 10 mg Dextrose (D50w Vial) 50 ml IV.PUSH UNSCH PRN PRN Reason: PER HYPOGLYCEMIA PROTOCOL Diphenhydramine HCl (Benadryl) 25 mg PO Q4H PRN PRN Reason: SEE LABEL COMMENTS Docusate Sodium (Colace Liq) 100 mg NG/OG BID [facility] Last Admin: 04/03/18 10:20 Dose: Not Given Enoxaparin Sodium (Lovenox Inj) 70 mg SQ Q12HR [facility] Last Admin: 04/03/18 10:25 Dose: 70 mg Escitalopram Oxalate (Lexapro) 20 mg G-TUBE DAILY [facility] Last Admin: 04/03/18 10:26 Dose: 20 mg Glucagon (Glucagon Inj) 1 mg OTHER PRN PRN PRN Reason: for Hypoglycemia Protocol Glycopyrrolate (Robinul Inj) 0.4 mg IV.PUSH Q8H PRN PRN Reason: thick secretions Last Admin: 04/03/18 10:26 Dose: 0.4 mg Hyoscyamine (Levsin Liq) 0.125 mg SL Q4H PRN PRN Reason: SECRETIONS Last Admin: 03/27/18 08:31 Dose: 0.125 mg Hyoscyamine (Levsin) 0.125 mg PO Q6H [facility] Last Admin: 04/03/18 10:26 Dose: 0.125 mg Dextrose/Sodium Chloride (D5w/Normal Saline Inj) 1,000 mls @ 84 mls/hr IV.CONT .[id number] [facility] Last Admin: 04/03/18 05:42 Dose: Not Given Insulin Aspart (Novolog Insulin Correctional Sugar Inj) 0 unit SQ Q6HR [facility]; Protocol Last Admin: 04/03/18 13:16 Dose: Not Given Lactulose (Lactulose Liq) 30 ml NG/OG DAILY PRN PRN Reason: SEVERE CONSITIPATION Levofloxacin (Levaquin) 250 mg NG/OG DAILY@1100 [facility] Last Admin: 04/03/18 10:28 Dose: 250 mg Levothyroxine Sodium (Synthroid) 100 mcg NG/OG DAILY@0600 [facility] Last Admin: 04/03/18 06:27 Dose: 100 mcg Multivitamins (Theragran) 1 tab NG/OG DAILY [facility] Last Admin: 04/03/18 10:25 Dose: 1 tab Ondansetron HCl (Zofran Odt) 4 mg SL Q6H PRN PRN Reason: NAUSEA Last Admin: 03/27/18 21:41 Dose: 4 mg Pantoprazole Sodium (Protonix Inj) 40 mg IV.PUSH Q12H [facility] Last Admin: 04/03/18 13:18 Dose: 40 mg Polyethylene Glycol (Miralax) 17 gm NG/OG BID [facility] Last Admin: 04/03/18 10:24 Dose: Not Given Potassium Bicarb/Potassium Chloride (K-Lyte Cl Eff) 25 meq J-TUBE DAILY [facility] Last Admin: 04/03/18 10:27 Dose: 25 meq Sennosides (Senokot) 17.2 mg NG/OG Q12H PRN PRN Reason: Moderate Constipation Simethicone (Phazyme Chew) 125 mg NG/OG Q4H PRN PRN Reason: RELATING TO BLOATING Last Admin: 03/29/18 09:55 Dose: 125 mg Sodium Chloride (Ns Flush) 2 ml IV.FLUSH BID [facility] Last Admin: 04/03/18 10:27 Dose: 2 ml Sodium Chloride (Ns Flush) 2 ml IV.FLUSH PRN PRN PRN Reason: FLUSH AFTER USING IV ACCESS Last Admin: 03/28/18 20:52 Dose: 2 ml Sterile Water (Free Water) 60 ml J-TUBE Q8HR [facility] Last Admin: 04/03/18 13:18 Dose: 60 ml Zinc Sulfate (Zinc-220) 220 mg NG/OG DAILY [facility] Last Admin: 04/03/18 10:26 Dose: 220 mg Allergies Allergy/AdvReac Type Severity Reaction Status Date / Time epinephrine Allergy Severe TACHYCARDIA Verified 02/21/18 08:40 penicillin G Allergy Severe Hives Verified 02/21/18 08:40 peanut Allergy Intermediate ANAPHYLAXIS Verified 02/21/18 08:40 legumes Allergy Unknown Anaphylaxis Verified 03/06/18 21:48 soy Allergy Rash Verified 03/06/18 21:45 Home Medications Medication Instructions Recorded Confirmed Type cetirizine 10 mg PO HS 02/15/18 05/13/18 History escitalopram oxalate 20 mg FEEDING TUBE DAILY 02/15/18 05/13/18 History levothyroxine 100 mcg FEEDING TUBE DAILY 02/15/18 05/13/18 History ascorbic acid (vitamin C) 500 mg FEEDING TUBE BID 03/06/18 05/13/18 History multivitamin [Daily Multi-Vitamin] 1 tab FEEDING TUBE DAILY 03/06/18 05/13/18 History Exam Vital signs: Vital Signs 04/02/18 20:00 04/03/18 00:00 04/03/18 04:00 Temperature 98.7 F Pulse Rate 100 H Respiratory Rate 16 16 16 Blood Pressure 86/54 L Pulse Oximetry 95 04/03/18 10:35 Temperature Pulse Rate Respiratory Rate Blood Pressure Pulse Oximetry 97 Intake & Output 04/02/18 04/03/18 04/03/18 18:59 06:59 18:59 Intake Total 660 / 660 1425 / 1425 Output Total 750 / 750 Balance 660 / 660 675 / 675 Weight 65.9 kg Intake: Tube Feeding 660 / 660 1425 / 1425 Output: Urine 500 / 500 Gastric Drainage 250 / 250 Gastrojejunostomy Tube 250 / 250 Other: # Incontinent Voids 4 Date of Last Bowel Movement 04/02/18 04/02/18 04/02/18 - Constitutional no acute distress, thin - Routine HEENT Exam Head: Present: normocephalic, atraumatic Eye: Present: EOMI, PERRL ENT: Present: mucous membranes dry, oropharynx clear Comments: edentulous - Routine Neck Exam Present: supple, full ROM Comments: trach in place - site OK - Routine Respiratory Exam Present: decreased breath sounds, CTA bilaterally - Routine Cardiovascular Exam Present: RRR, S1, S2 Comments: no murmurs rubs gallops - Routine Abdominal Exam Present: soft, normoactive bowel sounds, wound (@ PEG site with mild serosang drainage noted. RN reported large amount of pus at last dressing change) Comments: no hepatomegly or masses palpated - Routine Extremities Exam Present: edema (non pitting), full ROM Comments: no cyanosisi clubbing - Routine Skin Exam Present: intact, dry, warm Comments: no rash - Routine Neurological Exam Present: alert, oriented X3, CN II-XII intact, moving all extremities, vision grossly intact, hearing grossly intact - Routine Psychiatric Exam Present: normal affect, cooperative Results - Labs CBC & Chem 7: 04/18/18 05:29 04/18/18 05:29 Labs: Laboratory Results - last 24 hr 03/29/18 04/02/18 04/02/18 19:05 18:06 18:13 WBC RBC Hgb Hct MCV MCH MCHC RDW Plt Count MPV Prelim Diff (Auto) WBC Differential Seg Neuts % (Manual) Band Neuts % (Manual) Lymphocytes % (Manual) Monocytes % (Manual) Eosinophils % (Manual) Basophils % (Manual) Metamyelocytes % (Man) Myelocytes % (Man) Promyelocytes % (Man) Abs Neuts (Manual) Differential Comment Toxic Vacuolation Platelet Estimate Platelet Morphology Ovalocytes Sodium Potassium Chloride Carbon Dioxide Anion Gap BUN Creatinine Estimated GFR POC Glucose 127 H Random Glucose Calcium Prot Corrected Calcium Erythropoietin 9.0 Total Protein Stl C.difficile Tox PCR Negative St C. diff Tox Epid 027 Negative 04/03/18 04/03/18 04/03/18 01:43 07:11 13:34 WBC 4.2 RBC 3.29 L Hgb 9.5 L Hct 28.3 L MCV 86.0 MCH 28.8 MCHC 33.5 RDW 18.8 H Plt Count 90 L MPV 9.0 Prelim Diff (Auto) Manual diff required WBC Differential Manual diff final Seg Neuts % (Manual) 59 Band Neuts % (Manual) 12 H Lymphocytes % (Manual) 10 Monocytes % (Manual) 11 H Eosinophils % (Manual) 3 Basophils % (Manual) 1 Metamyelocytes % (Man) 1 Myelocytes % (Man) 1 H Promyelocytes % (Man) 2 H Abs Neuts (Manual) 3.2 Differential Comment . Toxic Vacuolation Present H Platelet Estimate Low L Platelet Morphology Normal Ovalocytes 1+ H Sodium 136 Potassium 4.2 Chloride 100 Carbon Dioxide 27.5 Anion Gap 9 BUN 32 H Creatinine 1.03 H Estimated GFR 53 L POC Glucose 106 Random Glucose 121 H Calcium 7.4 L* Prot Corrected Calcium 8.5 Erythropoietin Total Protein 5.1 L Stl C.difficile Tox PCR St C. diff Tox Epid 027 04/03/18 14:47 WBC RBC Hgb Hct MCV MCH MCHC RDW Plt Count MPV Prelim Diff (Auto) WBC Differential Seg Neuts % (Manual) Band Neuts % (Manual) Lymphocytes % (Manual) Monocytes % (Manual) Eosinophils % (Manual) Basophils % (Manual) Metamyelocytes % (Man) Myelocytes % (Man) Promyelocytes % (Man) Abs Neuts (Manual) Differential Comment Toxic Vacuolation Platelet Estimate Platelet Morphology Ovalocytes Sodium Potassium Chloride Carbon Dioxide Anion Gap BUN Creatinine Estimated GFR POC Glucose 125 H Random Glucose Calcium Prot Corrected Calcium Erythropoietin Total Protein Stl C.difficile Tox PCR St C. diff Tox Epid 027 - Imaging ITS Impressions Abdomen/Pelvis CT 03/15/18 00:00 CONCLUSION: 1. Small pleural effusions with compressive atelectasis. 2. Gastrostomy tube evident within normal bowel gas pattern by CT. The tip of the gastrostomy tube is in the antrum of the stomach. Liver Ultrasound 03/27/18 00:00 CONCLUSION: 1. Hepatomegaly with increased echotexture characteristic of steatosis or diffuse hepatocellular disease. 2. No evidence of discrete mass or biliary obstructive disease. 3. Status post cholecystectomy. Abdomen X-Ray 03/28/18 00:00 CONCLUSION: No acute findings. Bone Marrow Biopsy w/ CT 03/31/18 00:00 CONCLUSION: 1. Uncomplicated CT guided bone marrow aspirate. 2. Uncomplicated CT guided bone marrow biopsy. Venous Doppler Study 03/31/18 00:00 CONCLUSION: 1. Extensive deep venous thrombosis again noted without significant change. Chest X-Ray 04/02/18 00:00 CONCLUSION: Slight to moderate CHF. Assessment and Plan - Plan Heas ands neck cancer sp PEG, trach Mild PEG site infection culture positive for MDRO Pseudomonas, MRSA dc levaquin start avicaz + vancomycin x 7 days
--- NOTE | 2018-04-03 18:17 | P.PN ---
Subjective Interval history: Alert and seems stable. No Fever. Tolerates feeds. Trach secretions are clearing. Physical Exam Vital signs: Vital Signs 04/02/18 20:00 04/03/18 00:00 04/03/18 04:00 Temperature 98.7 F Pulse Rate 100 H Respiratory Rate 16 16 16 Blood Pressure 86/54 L Pulse Oximetry 95 04/03/18 10:35 04/03/18 17:51 Temperature Pulse Rate Respiratory Rate 14 Blood Pressure Pulse Oximetry 97 Intake & Output 04/02/18 04/03/18 04/03/18 18:59 06:59 18:59 Intake Total 660 / 660 1425 / 1425 Output Total 750 / 750 Balance 660 / 660 675 / 675 Weight 65.9 kg Intake: Tube Feeding 660 / 660 1425 / 1425 Output: Urine 500 / 500 Gastric Drainage 250 / 250 Gastrojejunostomy Tube 250 / 250 Other: # Incontinent Voids 4 Date of Last Bowel Movement 04/02/18 04/02/18 04/02/18 Narrative: Is awake, follows motor commands gross with all 4 extremities Has tracheostomy in place GENERAL: Awake and responds to commands. SKIN: Warm and dry. HEAD: Normocephalic. EYES: No scleral icterus. No injection or drainage. NECK: Supple, trachea midline. Trach tube is in.No JVD or lymphadenopathy. CARDIOVASCULAR: Regular rate and rhythm without murmurs, gallops, or rubs. RESPIRATORY: Breath sounds equal bilaterally.Occ wheeze . No accessory muscle use. GASTROINTESTINAL: Abdomen soft, non-tender, nondistended. MUSCULOSKELETAL: No cyanosis, or edema. BACK: Nontender without obvious deformity. No CVA tenderness. - Urinary Catheter Management Female External Cath placed during this visit: no Indwelling Urethral Catheter Cath placed during this visit: yes, but has since been removed by the nurse Reason for continuing: Hourly intake/output Insertion date: 03/06/18 Insertion time: 18:00 Removal date: 03/10/18 Removal time: 17:00 Results - Labs CBC & Chem 7: 04/03/18 13:34 04/03/18 07:11 Laboratory Results - last 24 hr 03/29/18 04/02/18 04/02/18 19:05 18:06 18:13 WBC RBC Hgb Hct MCV MCH MCHC RDW Plt Count MPV Prelim Diff (Auto) WBC Differential Seg Neuts % (Manual) Band Neuts % (Manual) Lymphocytes % (Manual) Monocytes % (Manual) Eosinophils % (Manual) Basophils % (Manual) Metamyelocytes % (Man) Myelocytes % (Man) Promyelocytes % (Man) Abs Neuts (Manual) Differential Comment Toxic Vacuolation Platelet Estimate Platelet Morphology Ovalocytes Sodium Potassium Chloride Carbon Dioxide Anion Gap BUN Creatinine Estimated GFR POC Glucose 127 H Random Glucose Calcium Prot Corrected Calcium Erythropoietin 9.0 Total Protein Stl C.difficile Tox PCR Negative St C. diff Tox Epid 027 Negative 04/03/18 04/03/18 04/03/18 01:43 07:11 13:34 WBC 4.2 RBC 3.29 L Hgb 9.5 L Hct 28.3 L MCV 86.0 MCH 28.8 MCHC 33.5 RDW 18.8 H Plt Count 90 L MPV 9.0 Prelim Diff (Auto) Manual diff required WBC Differential Manual diff final Seg Neuts % (Manual) 59 Band Neuts % (Manual) 12 H Lymphocytes % (Manual) 10 Monocytes % (Manual) 11 H Eosinophils % (Manual) 3 Basophils % (Manual) 1 Metamyelocytes % (Man) 1 Myelocytes % (Man) 1 H Promyelocytes % (Man) 2 H Abs Neuts (Manual) 3.2 Differential Comment . Toxic Vacuolation Present H Platelet Estimate Low L Platelet Morphology Normal Ovalocytes 1+ H Sodium 136 Potassium 4.2 Chloride 100 Carbon Dioxide 27.5 Anion Gap 9 BUN 32 H Creatinine 1.03 H Estimated GFR 53 L POC Glucose 106 Random Glucose 121 H Calcium 7.4 L* Prot Corrected Calcium 8.5 Erythropoietin Total Protein 5.1 L Stl C.difficile Tox PCR St C. diff Tox Epid 027 04/03/18 14:47 WBC RBC Hgb Hct MCV MCH MCHC RDW Plt Count MPV Prelim Diff (Auto) WBC Differential Seg Neuts % (Manual) Band Neuts % (Manual) Lymphocytes % (Manual) Monocytes % (Manual) Eosinophils % (Manual) Basophils % (Manual) Metamyelocytes % (Man) Myelocytes % (Man) Promyelocytes % (Man) Abs Neuts (Manual) Differential Comment Toxic Vacuolation Platelet Estimate Platelet Morphology Ovalocytes Sodium Potassium Chloride Carbon Dioxide Anion Gap BUN Creatinine Estimated GFR POC Glucose 125 H Random Glucose Calcium Prot Corrected Calcium Erythropoietin Total Protein Stl C.difficile Tox PCR St C. diff Tox Epid 027 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 - Malignant neoplasm of larynx, unspecified Status: Acute (3) Supraglottic stenosis Code(s): J38.6 - Stenosis of larynx Status: Acute (4) Status post radiation therapy Code(s): Z92.3 - Personal history of irradiation Status: Acute (5) Barretts esophagus Code(s): K22.70 - Rendon's esophagus without dysplasia Status: Acute (6) Dyspnea Code(s): R06.00 - Dyspnea, unspecified Status: Acute (7) Aspiration pneumonia Code(s): J69.0 - Pneumonitis due to inhalation of food and vomit Status: Acute (8) Aspiration into airway Code(s): T17.908A - Unspecified foreign body in respiratory tract, part unspecified causing other injury, initial encounter Status: Acute (9) DVT (deep venous thrombosis) Code(s): I82.409 - Acute embolism and thrombosis of unspecified deep veins of unspecified lower extremity Status: Acute - Plan 1. Leave on T Bar 30 % FIO2 all the time. 2. Trach care and lavage PRN 3. Continue Duo nebs q6h 4. PT evaluation to help activity 5. Will use a PM valve to talk 6. Cont levsin .125 mg TID S/L PRN 7. Tube feeds at 60 CC. 8. Anticoagulation per Hematology. (7) Aspiration pneumonia Qualifiers: Aspiration pneumonia type: unspecified Laterality: unspecified laterality Lung location: unspecified part of lung Qualified Code(s): J69.0 - Pneumonitis due to inhalation of food and vomit
[2018-04-04] MEDS: Pantoprazole Inj 40 MG Vial IV.PUSH SCH ×2 (02:00→14:51)
[2018-04-04] MEDS: Levothyroxine 100 MCG Tablet NG/OG SCH (06:46)
[2018-04-04] MEDS: Vancomycin Inj 1,000 MG in Sodium Chlor 0.9% Inj 250 ML IV.SIG SCH (06:47)
[2018-04-04] MEDS: Insulin NovoLOG Aspart Correctional Sugar Inj SQ SCH ×2 (07:19→07:21)
[2018-04-04] MEDS: Ceftazidime/Avibactam Inj 2.5 GM in Sodium Chlor 0.9% Inj 50 ML IV.SIG SCH ×3 (07:19→22:23)
[2018-04-04] MEDS: Enoxaparin Inj 80 MG/0.8 ML Syringe SQ SCH ×2 (09:38→22:22)
[2018-04-04] MEDS: Ascorbic Acid 500 MG Tablet G-TUBE SCH ×2 (09:38→22:21)
[2018-04-04] MEDS: Glycopyrrolate 0.2 MG/ML Vial IV.PUSH PRN (09:39)
[2018-04-04] MEDS: buPROPion 75 MG Tablet NG/OG SCH ×2 (09:40→22:21)
[2018-04-04] MEDS: Potassium Chloride 25 MEQ Effervescent Tablet J-TUBE SCH (09:40)
[2018-04-04] MEDS: Docusate Sodium Liq 100 MG/10 ML UDC NG/OG SCH ×2 (09:42→22:23)
[2018-04-04] MEDS: Dextrose 5%/NaCl 0.9% Inj 1,000 ML IV.CONT SCH ×2 (09:42)
[2018-04-04] MEDS: Polyethylene Glycol 3350 17 GM Packet NG/OG SCH ×2 (09:43→22:21)
[2018-04-04] MEDS: Simethicone 125 MG Chew Tablet NG/OG PRN (09:43)
--- NOTE | 2018-04-04 09:45 | P.PNIM ---
Subjective Interval history: Patient is able to mouth yes and no to questions. No new complaints. Discussed with RN. Physical Exam Vital signs: Vital Signs 04/03/18 10:35 04/03/18 12:00 04/03/18 16:00 Temperature 98.5 F 97.6 F Pulse Rate 76 74 Respiratory Rate 14 14 Blood Pressure 122/84 128/80 Pulse Oximetry 97 97 97 04/03/18 17:51 04/03/18 20:00 04/04/18 00:00 Temperature 99.0 F 99.2 F Pulse Rate 71 82 Respiratory Rate 14 18 18 Blood Pressure 96/51 L 89/51 L Pulse Oximetry 95 94 L 04/04/18 04:00 04/04/18 09:00 Temperature 98.3 F Pulse Rate 69 Respiratory Rate 18 Blood Pressure 100/49 L Pulse Oximetry 96 97 Intake & Output 04/03/18 04/04/18 04/04/18 18:59 06:59 18:59 Intake Total 1000 / 1000 1219 / 1219 Output Total 2049 / 2049 300 / 300 Balance -1050 / -1050 919 / 919 Weight 66.2 kg Intake: Oral 0 / 0 Tube Feeding 1000 / 1000 1159 / 1159 Water Bolus Amount 60 / 60 Output: Urine 300 / 300 Emesis 0 / 0 Gastric Drainage 2049 Gastrojejunostomy Tube 250 / 250 J Tube 1800 / 1800 Other: # Incontinent Voids 4 1 Date of Last Bowel Movement 04/03/18 04/03/18 # Bowel Movements 1 Narrative: GENERAL: Elderly female, in no apparent distress. CARDIOVASCULAR: Normal rate and regular rhythm without murmurs, gallops, or rubs. RESPIRATORY: Trached. Breath sounds equal and clear to auscultation bilaterally. GASTROINTESTINAL: Abdomen soft, non-tender, non-distended. PEG tube in place. normal active bowel sounds MUSCULOSKELETAL: Extremities without cyanosis, or edema. NEURO: Alert & Oriented x4 to person, place, time, situation. Moves all ext x4 PSYCH: Appropriate mood and affect. - Urinary Catheter Management Female External Cath placed during this visit: no Indwelling Urethral Catheter Cath placed during this visit: yes, but has since been removed by the nurse Reason for continuing: Hourly intake/output Insertion date: 03/06/18 Insertion time: 18:00 Removal date: 03/10/18 Removal time: 17:00 Results - Labs CBC & Chem 7: 04/03/18 13:34 04/03/18 07:11 Laboratory Results - last 24 hr 04/03/18 04/03/18 04/04/18 13:34 14:47 00:44 WBC 4.2 RBC 3.29 L Hgb 9.5 L Hct 28.3 L MCV 86.0 MCH 28.8 MCHC 33.5 RDW 18.8 H Plt Count 90 L MPV 9.0 Prelim Diff (Auto) Manual diff required WBC Differential Manual diff final Seg Neuts % (Manual) 59 Band Neuts % (Manual) 12 H Lymphocytes % (Manual) 10 Monocytes % (Manual) 11 H Eosinophils % (Manual) 3 Basophils % (Manual) 1 Metamyelocytes % (Man) 1 Myelocytes % (Man) 1 H Promyelocytes % (Man) 2 H Abs Neuts (Manual) 3.2 Differential Comment . Toxic Vacuolation Present H Platelet Estimate Low L Platelet Morphology Normal Ovalocytes 1+ H POC Glucose 125 H 119 H 04/04/18 05:49 WBC RBC Hgb Hct MCV MCH MCHC RDW Plt Count MPV Prelim Diff (Auto) WBC Differential Seg Neuts % (Manual) Band Neuts % (Manual) Lymphocytes % (Manual) Monocytes % (Manual) Eosinophils % (Manual) Basophils % (Manual) Metamyelocytes % (Man) Myelocytes % (Man) Promyelocytes % (Man) Abs Neuts (Manual) Differential Comment Toxic Vacuolation Platelet Estimate Platelet Morphology Ovalocytes POC Glucose 117 H Assessment and Plan - Assessment (1) Acute adjustment disorder with depressed mood Code(s): F43.21 - Adjustment disorder with depressed mood Status: Acute (2) Dysphasia Code(s): R47.02 - Dysphasia Status: Acute (3) Respiratory failure Code(s): J96.90 - Respiratory failure, unspecified, unspecified whether with hypoxia or hypercapnia Status: Acute (4) Protein-calorie malnutrition, severe Code(s): E43 - Unspecified severe protein-calorie malnutrition Status: Chronic (5) Laryngeal squamous cell carcinoma Code(s): C32.9 - Malignant neoplasm of larynx, unspecified Status: Acute (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 She has already been treated for pneumonia as well as a MRSA/ Caitlyn tropicalis UTI with multiple antibiotics. Abdominal wound - at this time is growing MRSA and multidrug resistant Pseudomonas. -Infectious disease following. Patient started on Avicaz and IV Vancomycin X7 days chronic respiratory failurecurrently stable on trach with pulmonology following. - Patient with history of supraglottic laryngeal cancer s/p radiation and chemo resulting in radiation-induced laryngeal scarring and recurrent aspiration - S/P tracheostomy 03/11 with general surgery - Pulmonology following for trach care - Bronchodilators - On T-piece Anemia, acute on chronic may be due to chronic kidney disease - Pt with dark output in G-tube noted on 03/21. GI was notified and patient underwent EGD showing radiation telangiectasias in the proximal esophagus, esophageal stricture, inflammatory distal esophageal polyp, normal G-tube placement, and no evidence of blood anywhere in the upper GIT -Transfused 1 unit packed red blood cell March 30, 2018 -Follow-up H&H every few days Thrombocytopenia - No signs of active bleeding -hematology following; s/p BM biopsy March 31, 2018 pending report -Improving. Failure to thrive, protein energy malnutrition - Patient with severe pharyngeal dysphagia, esophageal stricture - G/J tube in place flush with 60 cc free water every 8 hours and Vital 1.5 at 55/hr per nutrition recs . Continue tube feeding. echo from 03/13/18 shows EF of 55-60%no evidence of CHF Hypothyroidism - Continue home Levothyroxine Adjustment disorder with depression - Continue Lexapro -Continue Wellbutrin 75 mg BID Coccygeal wound - Wound care following, noted new skin tear to left buttock on 03/25 - Calazime BID and PRN for skin tear - Ultrasorb underpad for moisture - Strict Q2H turns from left to right sides only with limited time spent on back for therapies only - Apply OptiForm adhesive to coccyx wound Q3D and PRN for soiling or dislodgement. GERD, h/o Barretts - Continue PPI DVT of the right lower extremities - Repeat Doppler did not reveal any significant changes. - continue subq Lovenox -hematology following. Discharge Planning: Need SNF placement. Case management following. (3) Respiratory failure Qualifiers: Chronicity: acute Respiratory failure complication: hypoxia Qualified Code(s ): J96.01 - Acute respiratory failure with hypoxia
--- NOTE | 2018-04-04 15:46 | P.PNONC ---
Subjective Interval history: Afebrile Patient resting comfortably Per nurse no acute events overnight or today Objective Vital Signs/Intake & Output: Vital Signs 04/03/18 16:00 04/03/18 17:51 04/03/18 20:00 Temperature 97.6 F 99.0 F Pulse Rate 74 71 Respiratory Rate 14 14 18 Blood Pressure 128/80 96/51 L Pulse Oximetry 97 95 04/04/18 00:00 04/04/18 04:00 04/04/18 08:00 Temperature 99.2 F 98.3 F 98.9 F Pulse Rate 82 69 88 Respiratory Rate 18 18 18 Blood Pressure 89/51 L 100/49 L 123/58 L Pulse Oximetry 94 L 96 98 04/04/18 09:00 04/04/18 10:09 04/04/18 12:00 Temperature 98.1 F Pulse Rate 74 Respiratory Rate 18 20 Blood Pressure 105/59 L Pulse Oximetry 97 97 Intake & Output 04/03/18 04/04/18 04/04/18 18:59 06:59 18:59 Intake Total 1000 / 1000 1219 / 1219 250 / 250 Output Total 2049 300 / 300 Balance -1050 / -1050 919 / 919 250 / 250 Weight 145 lb 15.136 oz Intake: IV 250 / 250 Vancomycin Inj 1,000 MG In NS 250 / 250 Inj 250 ML @ 250 mls/hr IV.SIG Q24H [facility] Rx#:[id number] Oral 0 / 0 Tube Feeding 1000 / 1000 1159 / 1159 Water Bolus Amount 60 / 60 Output: Urine 300 / 300 Emesis 0 / 0 Gastric Drainage 2049 Gastrojejunostomy Tube 250 / 250 J Tube 1800 / 1800 Other: # Incontinent Voids 4 1 Date of Last Bowel Movement 04/03/18 04/03/18 04/03/18 # Bowel Movements 1 Result Diagrams: 04/03/18 13:34 04/03/18 07:11 Laboratory Results: Laboratory Results - last 24 hr 04/04/18 04/04/18 00:44 05:49 POC Glucose 119 H 117 H Medications: Active Medications Generic Name Dose Route Start Last Admin Trade Name Freq PRN Reason Stop Dose Admin Acetaminophen 650 mg 03/29/18 16:32 03/29/18 17:25 Tylenol PO 650 mg Q4H PRN Administration FEVER > 101 F Acetaminophen 650 mg 03/07/18 08:32 03/27/18 00:01 Tylenol Liq G-TUBE 650 mg Q6H PRN Administration FEVER Hydrocodone Bitart/Acetaminophen 2 tab 03/30/18 17:25 04/04/18 15:32 [place] 5/325 PO 2 tab Q4H PRN Administration PAIN 6-10 Albuterol 2.5 mg 03/07/18 00:57 03/21/18 19:22 Albuterol Neb (Prn) NEB 2.5 mg Q2HR NEB PRN Administration SHORTNESS OF BREATH/WHEEZING Ascorbic Acid 500 mg 03/08/18 21:00 04/04/18 09:38 Vitamin C G-TUBE 500 mg BID ANN Administration Bupropion HCl 75 mg 03/28/18 21:00 04/04/18 09:40 Wellbutrin NG/OG 75 mg BID ANN Administration Cetirizine HCl 10 mg 03/28/18 21:00 04/03/18 22:07 Zyrtec NG/OG 10 mg HS ANN Administration Docusate Sodium 100 mg 03/28/18 21:00 04/04/18 09:42 Colace Liq NG/OG Not Given BID ANN Enoxaparin Sodium 70 mg 03/28/18 21:00 04/04/18 09:38 Lovenox Inj SQ 70 mg Q12HR ANN Administration Escitalopram Oxalate 20 mg 03/09/18 09:00 04/04/18 09:38 Lexapro G-TUBE 20 mg DAILY ANN Administration Glycopyrrolate 0.4 mg 03/21/18 16:16 04/04/18 09:39 Robinul Inj IV.PUSH 0.4 mg Q8H PRN Administration thick secretions Hyoscyamine 0.125 mg 03/20/18 10:12 03/27/18 08:31 Levsin Liq SL 0.125 mg Q4H PRN Administration SECRETIONS Hyoscyamine 0.125 mg 03/28/18 17:00 04/04/18 11:00 Levsin PO 0.125 mg Q6H ANN Administration Ceftazidime/Avibactam 2.5 gm/ 50 mls @ 25 mls/hr 04/04/18 06:00 04/04/18 14: 50 Sodium Chloride IV.SIG 50 mls/hr Q8H ANN Administration Vancomycin HCl 1,000 mg/ 250 mls @ 250 mls/hr 04/04/18 06:00 04/04/18 08:00 Sodium Chloride IV.SIG Infused Q24H ANN Infusion Levothyroxine Sodium 100 mcg 03/09/18 06:00 04/04/18 06:46 Synthroid NG/OG 100 mcg DAILY@0600 ANN Administration Multivitamins 1 tab 03/09/18 09:00 04/04/18 09:43 Theragran NG/OG 1 tab DAILY ANN Administration Ondansetron HCl 4 mg 03/15/18 10:59 03/27/18 21:41 Zofran Odt SL 4 mg Q6H PRN Administration NAUSEA Pantoprazole Sodium 40 mg 03/21/18 14:00 04/04/18 14:51 Protonix Inj IV.PUSH 40 mg Q12H ANN Administration Polyethylene Glycol 17 gm 03/29/18 09:00 04/04/18 09:43 Miralax NG/OG Not Given BID ANN Potassium Bicarb/Potassium Chloride 25 meq 03/24/18 09:00 04/04/18 09:40 K-Lyte Cl Eff J-TUBE 25 meq DAILY ANN Administration Simethicone 125 mg 03/28/18 17:05 04/04/18 09:43 Phazyme Chew NG/OG 125 mg Q4H PRN Administration RELATING TO BLOATING Sodium Chloride 2 ml 03/07/18 09:00 04/04/18 09:43 Ns Flush IV.FLUSH 2 ml BID ANN Administration Sodium Chloride 2 ml 03/07/18 00:57 03/28/18 20:52 Ns Flush IV.FLUSH 2 ml PRN PRN Administration FLUSH AFTER USING IV ACCESS Zinc Sulfate 220 mg 03/09/18 09:00 04/04/18 09:43 Zinc-220 NG/OG 220 mg DAILY ANN Administration Objective Remarks: GENERAL: Cachectic elderly female patient, lying in bed. In no acute distress. SKIN: Pale, warm and dry. HEAD: Normocephalic. EYES: No scleral icterus. No injection or drainage. NECK: Supple, trachea midline. +Tracheostomy. CARDIOVASCULAR: Regular rate and rhythm without murmurs. RESPIRATORY: Anterior bilateral breath sounds rhonchi, equal bilaterally. Tracheostomy with T-tube in place, humidified O2 attached. GASTROINTESTINAL: Abdomen soft, tender, nondistended. PEG tube to LUQ. EXTREMITIES: No cyanosis, or edema. Bilateral sequentials in place. MUSCULOSKELETAL: Decreased muscle tone. NEUROLOGICAL: No obvious focal deficit. Awake & alert. Assessment/Plan - Plan Ms. Henson is a 73-year-old woman with history of head and neck cancer. She was initially diagnosed in 2014. Her followup has not been consistent. She is well known patient to Dr. Gopal Pineda, who saw her in January of this year for the anemia. Hematology/oncology is consulted again for the anemia. Plan: 1. Patient with myelodysplasia. She is not a candidate for chemotherapy. 2. Continue supportive transfusions per patient's son request. 3. She is a hospice candidate should there wishes become comfort oriented only. - Attending Statement The exam, history, and the medical decision-making described in the above note were completed with the assistance of the mid-level provider. I reviewed and agree with the findings presented. I attest that I had a [id number] encounter with the patient on the same day, and personally performed and documented my assessment and findings in the medical record. No new c/o Again d/w her about MDS I strongly recommend hospice but son wants her to go to rehab and give PRBC support as needed. D/W Pt OUMOU
--- NOTE | 2018-04-04 17:06 | P.PNWCN ---
Wound Care Nurse Consult Description: Consult for peritrach excoriation Kanika Garnica/Dr Vance Communicated with: Kanika Recommendation: Cleanse trach site BID and PRN per protocol Apply drain sponge under trach collar for comfort and to absorb light exudate/ drainage. Change dressing BID and PRN Additional information: Patient seen on for evaluation of trach site, per nurse the trach site has open wounds/excoriation. Wound/Pressure Injury - Wound Trach- Peristoma Wound Assessment: Ongoing Dressing Status: Open to Air ([facility] that [facility], no open wounds and no erythema and no drainage noted) Cleansing Solution: Saline Primary Dressing: drain sponge Peg- Peristoma Dressing Status: Changed Topical: Cavilon skin barrier film spray Primary Dressing: drain sponge Wound Dressing Change Date: 04/04/18
--- NOTE | 2018-04-04 18:28 | P.PNPAL ---
Reason for Visit Reason for visit: a. To assist with evaluation and management of symptoms including:dyspnea, dysphagia, physical deconditioning b. To assist medical decision maker(s) with: better understanding of current medical conditions; weighing benefits/burdens of medical treatment options; making medical treatment decisions. Subjective Subjective/Interval History: Follow up medically necessary for symptom management. Patient seen and examined in her room. Patient is sleeping, easily arousable,sleepy, oriented to self, place and situation. She remains on T piece at 30%. Patient currently denies pain or shortness of breath. Pain is currently managed with hydrocodone/ acetaminophen 5/325 -10/325 every 4 hrs prn. Patient has required 3 hydrocodone 10 mg prn doses in the past 24 hours. She remains n.p.o. and only gets ice chips. Interim course: * 03/27/18-oncology Dr. Jacques consulted for evaluation of anemia * 03/27/18-liver ultrasound revealed hepatomegaly with increased echotexture characteristic of steatosis or diffuse hepatocellular disease. No biliary obstructive disease * 03/27/18-venous Doppler ultrasound of bilateral lower extremities revealed intraluminal thrombus to right lower extremity from the groin to proximal calf and no DVT to left lower extremity. Patient started on Lovenox. * 03/29/18-abdominal wound culture growing Staphylococcus aureus MRSA, pseudomonas aeruginosa multidrug-resistant. * 03/31/18-patient underwent diagnostic CT biopsy bone marrow for further evaluation of anemia and thrombocytopenia. Bone marrow biopsy showed features strongly suspicious for myelodysplasia. Per oncology notes, patient is not a candidate for chemotherapy and patient's son has requested to continue with supportive transfusions. * 03/31/18-chest x-ray showed slight to moderate CHF. * 04/03/18-infectious disease Dr. Canchola consulted for evaluation and management of patient with MDR O from PEG wound, recommended Avicaz+Vancomycin x 7 days. * Wound care consulted on 04/04/18 for peritrach excoriation, recommended drain sponge and a trach collar for comfort * Recent laboratory workup on 04/03/18 revealed WBC 4.2, hemoglobin 9.5, hematocrit 28.3, platelet count 90 Physical therapy following recommending PT at rehab. Per bedside RN, patient was not able to participate much in physical therapy today due to increased weakness. She reports that patient was not able to hold up her trunk when they were trying to get her out of bed to a stretcher chair due to weakness and fatigue. Brief discussion with patient who appears sleepy. Patient states that she hopes to get better so she can go to rehabilitation and then go home. Patient does not want palliative to call her son Quinton. Case discussed with bedside RN Kanika. Family/Friend Interactions: No family at bedside Advance Directives Living Will: Completed, but not made available Health Care Surrogate: Completed, but not made available Durable Power of Hearse Driver: Completed, but not made available Health Care Surrogate Name and Number: Fish Alcantara [phone] Objective Vital Signs: Vital Signs 04/03/18 20:00 04/04/18 00:00 04/04/18 04:00 Temperature 99.0 F 99.2 F 98.3 F Pulse Rate 71 82 69 Respiratory Rate 18 18 18 Blood Pressure 96/51 L 89/51 L 100/49 L Pulse Oximetry 95 94 L 96 04/04/18 08:00 04/04/18 09:00 04/04/18 10:09 Temperature 98.9 F Pulse Rate 88 Respiratory Rate 18 18 Blood Pressure 123/58 L Pulse Oximetry 98 97 04/04/18 12:00 04/04/18 16:00 04/04/18 16:10 Temperature 98.1 F 98.0 F Pulse Rate 74 80 Respiratory Rate 20 20 20 Blood Pressure 105/59 L 100/60 Pulse Oximetry 97 97 04/04/18 16:32 Temperature Pulse Rate Respiratory Rate Blood Pressure Pulse Oximetry 98 Intake & Output 04/03/18 04/04/18 04/04/18 18:59 06:59 18:59 Intake Total 1000 / 1000 1219 / 1219 300 / 300 Output Total 2049 300 / 300 Balance -1050 / -1050 919 / 919 300 / 300 Weight 66.2 kg Intake: IV 300 / 300 Avycaz Inj 2.5 GM In NS Inj 50 50 / 50 ML @ 25 mls/hr IV.SIG Q8H [facility] Rx#:[id number] Vancomycin Inj 1,000 MG In NS 250 / 250 Inj 250 ML @ 250 mls/hr IV.SIG Q24H [facility] Rx#:[id number] Oral 0 / 0 Tube Feeding 1000 / 1000 1159 / 1159 Water Bolus Amount 60 / 60 Output: Urine 300 / 300 Emesis 0 / 0 Gastric Drainage 2050 / 2050 Gastrojejunostomy Tube 250 / 250 J Tube 1800 / 1800 Other: # Incontinent Voids 4 1 Date of Last Bowel Movement 04/03/18 04/03/18 04/03/18 # Bowel Movements 1 Physical Exam: CONSTITUTIONAL/GENERAL: This is an thin elderly patient, with muscle wasting, sleeping but arousable TUBES/LINES/DRAINS: Tracheostomy, PIV, GJ tube SKIN: No jaundice, rashes, or lesions. Ecchymoses on upper extremities. No wounds seen anteriorly. Normothermic EYES: PERRLA. No scleral icterus. Fundi not examined. ENT: Hearing grossly normal. Nose without bleeding or purulent drainage. Tracheostomy midline, copious tracheal secretions NECK: Trachea midline. Supple, nontender. CARDIOVASCULAR: S1, S2 normal, no murmurs, gallops, or rubs. No JVD. Peripheral pulses symmetric. RESPIRATORY/CHEST: Symmetric, unlabored respirations. Rhonchi to auscultation, no wheezes, rales. GASTROINTESTINAL: Abdomen soft, non-tender, nondistended. No guarding. Bowel sounds present. G tube to gravity, TF via J tube GENITOURINARY: Without palpable bladder distension. MUSCULOSKELETAL: Extremities without clubbing, cyanosis, or edema. No joint tenderness or effusion noted. No calf tenderness. No mottling or clubbing. NEUROLOGICAL: Sleepy, easily arousable, oriented to self, place and situation. Moves all extremities to command. PSYCHIATRIC: No obvious anxiety/depression. no apparent hallucinations or other psychotic thought process. Diagnostic Tests Laboratory: Laboratory Results - last 72 hr 03/29/18 03/31/18 04/02/18 19:05 10:30 00:18 WBC RBC Hgb Hct MCV MCH MCHC RDW Plt Count MPV Prelim Diff (Auto) WBC Differential Seg Neuts % (Manual) Band Neuts % (Manual) Lymphocytes % (Manual) Monocytes % (Manual) Eosinophils % (Manual) Basophils % (Manual) Metamyelocytes % (Man) Myelocytes % (Man) Promyelocytes % (Man) Abs Neuts (Manual) Differential Comment Toxic Vacuolation Platelet Estimate Platelet Morphology Ovalocytes Sodium Potassium Chloride Carbon Dioxide Anion Gap BUN Creatinine Estimated GFR POC Glucose 115 H Random Glucose Calcium Prot Corrected Calcium Erythropoietin 9.0 Total Protein Stl C.difficile Tox PCR St C. diff Tox Epid 027 Marrow Immunophenotype 04/02/18 04/02/18 04/02/18 05:08 10:42 18:06 WBC RBC Hgb Hct MCV MCH MCHC RDW Plt Count MPV Prelim Diff (Auto) WBC Differential Seg Neuts % (Manual) Band Neuts % (Manual) Lymphocytes % (Manual) Monocytes % (Manual) Eosinophils % (Manual) Basophils % (Manual) Metamyelocytes % (Man) Myelocytes % (Man) Promyelocytes % (Man) Abs Neuts (Manual) Differential Comment Toxic Vacuolation Platelet Estimate Platelet Morphology Ovalocytes Sodium Potassium Chloride Carbon Dioxide Anion Gap BUN Creatinine Estimated GFR POC Glucose 126 H 124 H Random Glucose Calcium Prot Corrected Calcium Erythropoietin Total Protein Stl C.difficile Tox PCR Negative St C. diff Tox Epid 027 Negative Marrow Immunophenotype 04/02/18 04/03/18 04/03/18 18:13 01:43 07:11 WBC RBC Hgb Hct MCV MCH MCHC RDW Plt Count MPV Prelim Diff (Auto) WBC Differential Seg Neuts % (Manual) Band Neuts % (Manual) Lymphocytes % (Manual) Monocytes % (Manual) Eosinophils % (Manual) Basophils % (Manual) Metamyelocytes % (Man) Myelocytes % (Man) Promyelocytes % (Man) Abs Neuts (Manual) Differential Comment Toxic Vacuolation Platelet Estimate Platelet Morphology Ovalocytes Sodium 136 Potassium 4.2 Chloride 100 Carbon Dioxide 27.5 Anion Gap 9 BUN 32 H Creatinine 1.03 H Estimated GFR 53 L POC Glucose 127 H 106 Random Glucose 121 H Calcium 7.4 L* Prot Corrected Calcium 8.5 Erythropoietin Total Protein 5.1 L Stl C.difficile Tox PCR St C. diff Tox Epid 027 Marrow Immunophenotype 04/03/18 04/03/18 04/04/18 13:34 14:47 00:44 WBC 4.2 RBC 3.29 L Hgb 9.5 L Hct 28.3 L MCV 86.0 MCH 28.8 MCHC 33.5 RDW 18.8 H Plt Count 90 L MPV 9.0 Prelim Diff (Auto) Manual diff required WBC Differential Manual diff final Seg Neuts % (Manual) 59 Band Neuts % (Manual) 12 H Lymphocytes % (Manual) 10 Monocytes % (Manual) 11 H Eosinophils % (Manual) 3 Basophils % (Manual) 1 Metamyelocytes % (Man) 1 Myelocytes % (Man) 1 H Promyelocytes % (Man) 2 H Abs Neuts (Manual) 3.2 Differential Comment . Toxic Vacuolation Present H Platelet Estimate Low L Platelet Morphology Normal Ovalocytes 1+ H Sodium Potassium Chloride Carbon Dioxide Anion Gap BUN Creatinine Estimated GFR POC Glucose 125 H 119 H Random Glucose Calcium Prot Corrected Calcium Erythropoietin Total Protein Stl C.difficile Tox PCR St C. diff Tox Epid 027 Marrow Immunophenotype 04/04/18 05:49 WBC RBC Hgb Hct MCV MCH MCHC RDW Plt Count MPV Prelim Diff (Auto) WBC Differential Seg Neuts % (Manual) Band Neuts % (Manual) Lymphocytes % (Manual) Monocytes % (Manual) Eosinophils % (Manual) Basophils % (Manual) Metamyelocytes % (Man) Myelocytes % (Man) Promyelocytes % (Man) Abs Neuts (Manual) Differential Comment Toxic Vacuolation Platelet Estimate Platelet Morphology Ovalocytes Sodium Potassium Chloride Carbon Dioxide Anion Gap BUN Creatinine Estimated GFR POC Glucose 117 H Random Glucose Calcium Prot Corrected Calcium Erythropoietin Total Protein Stl C.difficile Tox PCR St C. diff Tox Epid 027 Marrow Immunophenotype Result Diagrams: 04/06/18 07:47 04/06/18 07:47 Imaging: Abdomen/Pelvis CT 03/15/18 00:00 CONCLUSION: 1. Small pleural effusions with compressive atelectasis. 2. Gastrostomy tube evident within normal bowel gas pattern by CT. The tip of the gastrostomy tube is in the antrum of the stomach. Liver Ultrasound 03/27/18 00:00 CONCLUSION: 1. Hepatomegaly with increased echotexture characteristic of steatosis or diffuse hepatocellular disease. 2. No evidence of discrete mass or biliary obstructive disease. 3. Status post cholecystectomy. Abdomen X-Ray 03/28/18 00:00 CONCLUSION: No acute findings. Bone Marrow Biopsy w/ CT 03/31/18 00:00 CONCLUSION: 1. Uncomplicated CT guided bone marrow aspirate. 2. Uncomplicated CT guided bone marrow biopsy. Venous Doppler Study 03/31/18 00:00 CONCLUSION: 1. Extensive deep venous thrombosis again noted without significant change. Chest X-Ray 04/02/18 00:00 CONCLUSION: Slight to moderate CHF. Procedures: 03/06/18-endotracheal intubation in the field 03/06/18-right femoral central line 03/11/18-percutaneous tracheostomy with bronchoscopy 03/19/18-esophagogastroscopy with wire insertion/esophageal dilatation. 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 Patient now has a tracheostomy. (3) Physical deconditioning 0-10 Scale: Unable to quantify Pertinent Non-Medical Issues: Psychosocial: Patient is originally from [place]. She moved to [place] in 1978. Patient was once and is . Patient has 3 sons and 4 grandchildren. 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 Patient was brought to the [facility] by EMS on 03/06/18 due to respiratory failure. Her O2 saturation was in the 50s on room air and she was intubated in the field prior to arrival to the ER. During this hospitalization patient underwent tracheostomy placement is well is esophageal dilatation. Given patient's comorbidities, multiple hospitalizations , she remains at risk for further complications, deterioration and decline. Code Status: Full Code Plan: PLAN: Legal decision maker: Patient is alert, oriented to self, place and situation. She appears to have insight regarding her medical condition. In the event that she is incapacitated patient stated that her son Fish Alcantara is her Durable Power of Hearse Driver including Healthcare. Goals: Remain Aggressive-Patient wants to go to rehabilitation and then home. Patient now has myelodysplasia and is not a candidate for chemotherapy. Patient's son has indicated to oncology that he wants to continue with transfusions as needed. Patient does not want Palliative care to call her son but wants Palliative care to continue seeing her. 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 Patient was intubated on the field when she was noted to be in respiratory failure. Patient underwent tracheostomy placement and esophageal dilatation this hospitalization. Patient is currently on a T- piece FiO2 28% at this time. Recent chest x-ray shows moderate congestive heart failure. 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 Patient is failed barium swallow eval.Tube feeds via J tube. s/p esophageal dilatation. Speech therapy eval today, recommended modified barium swallow given high risk for aspiration. NPO except for ice chips * Physical deconditioning: Progressive. Patient has had prolonged hospitalization. She has undergone tracheostomy and GJ tube placement during these hospitalizations. Patient reports unintentional significant weight loss. Physical therapy following, recommending PT at rehab. Patient continues to have increased weakness and fatigue and not able to fully participate in physical therapy.Pt being evaluated by [place] [facility]. Patient will most likely not be able to do well in rehabilitation given multiple complications during this clinical course. Palliative care will continue to follow the patient during hospital course as condition evolves, to assist patient/decision-maker with understanding of their medical conditions, weighing benefits/burdens of treatment options, for clarification of goals of treatment. Additionally will assist with any symptoms of palliative concern Attestation Attestation: To help prompt me to consider important information that might be impacting today's encounter and assessment, information from prior notes written by myself or my colleagues may have been "brought forward" into today's note. My signature on this note, however, is an attestation that I personally performed the exam, history, and/or decision-making noted today, and, unless otherwise indicated, the interactions with patient, family, and staff as well as the review of records all occurred today. I also attest that the listed assessment and stated plan reflect my best clinical judgment today based on the combination of historical information, prior notes, and today's exam/ interactions. When time spent is documented, it refers only to time spent today by the signer, or if indicated, combined time spent today by collaborating physician/nurse practitioner.
--- NOTE | 2018-04-04 18:38 | P.PN ---
Subjective Interval history: She has no SOB at rest. Tolerates feeds. Trach site is clear. wants to talk. Physical Exam Vital signs: Vital Signs 04/03/18 20:00 04/04/18 00:00 04/04/18 04:00 Temperature 99.0 F 99.2 F 98.3 F Pulse Rate 71 82 69 Respiratory Rate 18 18 18 Blood Pressure 96/51 L 89/51 L 100/49 L Pulse Oximetry 95 94 L 96 04/04/18 08:00 04/04/18 09:00 04/04/18 10:09 Temperature 98.9 F Pulse Rate 88 Respiratory Rate 18 18 Blood Pressure 123/58 L Pulse Oximetry 98 97 04/04/18 12:00 04/04/18 16:00 04/04/18 16:10 Temperature 98.1 F 98.0 F Pulse Rate 74 80 Respiratory Rate 20 20 20 Blood Pressure 105/59 L 100/60 Pulse Oximetry 97 97 04/04/18 16:32 Temperature Pulse Rate Respiratory Rate Blood Pressure Pulse Oximetry 98 Intake & Output 04/03/18 04/04/18 04/04/18 18:59 06:59 18:59 Intake Total 1000 / 1000 1219 / 1219 300 / 300 Output Total 2049 / 2049 300 / 300 Balance -1050 / -1050 919 / 919 300 / 300 Weight 66.2 kg Intake: IV 300 / 300 Avycaz Inj 2.5 GM In NS Inj 50 50 / 50 ML @ 25 mls/hr IV.SIG Q8H [facility] Rx#:[id number] Vancomycin Inj 1,000 MG In NS 250 / 250 Inj 250 ML @ 250 mls/hr IV.SIG Q24H ANN Rx#:[id number] Oral 0 / 0 Tube Feeding 1000 / 1000 1159 / 1159 Water Bolus Amount 60 / 60 Output: Urine 300 / 300 Emesis 0 / 0 Gastric Drainage 2049 Gastrojejunostomy Tube 250 / 250 J Tube 1800 / 1800 Other: # Incontinent Voids 4 1 Date of Last Bowel Movement 04/03/18 04/03/18 04/03/18 # Bowel Movements 1 Narrative: GENERAL: Elderly female, in no apparent distress.Neck with Trach in place. CARDIOVASCULAR: Normal rate and regular rhythm without murmurs, gallops, or rubs. RESPIRATORY:Breath sounds equal and occ wheeze heard. GASTROINTESTINAL: Abdomen soft, non-tender, non-distended. PEG tube in place. normal active bowel sounds MUSCULOSKELETAL: Extremities without cyanosis, or edema. NEURO: Alert & Oriented x4 to person, place, time, situation. Moves all ext x4 PSYCH: Appropriate mood and affect. - Urinary Catheter Management Female External Cath placed during this visit: no Indwelling Urethral Catheter Cath placed during this visit: yes, but has since been removed by the nurse Reason for continuing: Hourly intake/output Insertion date: 03/06/18 Insertion time: 18:00 Removal date: 03/10/18 Removal time: 17:00 Results - Labs CBC & Chem 7: 04/03/18 13:34 04/03/18 07:11 Laboratory Results - last 24 hr 04/04/18 04/04/18 00:44 05:49 POC Glucose 119 H 117 H 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 - Malignant neoplasm of larynx, unspecified Status: Acute (3) Supraglottic stenosis Code(s): J38.6 - Stenosis of larynx Status: Acute (4) Status post radiation therapy Code(s): Z92.3 - Personal history of irradiation Status: Acute (5) Barretts esophagus Code(s): K22.70 - Rendon's esophagus without dysplasia Status: Acute (6) Dyspnea Code(s): R06.00 - Dyspnea, unspecified Status: Acute (7) Aspiration pneumonia Code(s): J69.0 - Pneumonitis due to inhalation of food and vomit Status: Acute (8) Aspiration into airway Code(s): T17.908A - Unspecified foreign body in respiratory tract, part unspecified causing other injury, initial encounter Status: Acute (9) DVT (deep venous thrombosis) Code(s): I82.409 - Acute embolism and thrombosis of unspecified deep veins of unspecified lower extremity Status: Acute - Plan 1. Leave on T Bar 30 % FIO2 all the time. 2. Trach care and lavage PRN 3. Continue Duo nebs q6h 4. PT evaluation to help activity 5. Will ask ENT if Trach can be changed to fenestrated shiley #8. 6. Cont levsin .125 mg TID S/L PRN 7. Tube feeds at 60 CC. 8. Cont Anticoagulation (7) Aspiration pneumonia Qualifiers: Aspiration pneumonia type: unspecified Laterality: unspecified laterality Lung location: unspecified part of lung Qualified Code(s): J69.0 - Pneumonitis due to inhalation of food and vomit
[2018-04-05] MEDS: Pantoprazole Inj 40 MG Vial IV.PUSH SCH ×2 (01:05→15:00)
[2018-04-05] MEDS: Levothyroxine 100 MCG Tablet NG/OG SCH ×2 (04:35→05:33)
[2018-04-05] MEDS: Vancomycin Inj 1,000 MG in Sodium Chlor 0.9% Inj 250 ML IV.SIG SCH (05:20)
[2018-04-05] MEDS: Ceftazidime/Avibactam Inj 2.5 GM in Sodium Chlor 0.9% Inj 50 ML IV.SIG SCH ×3 (05:21→22:55)
[2018-04-05] MEDS: buPROPion 75 MG Tablet NG/OG SCH ×2 (09:45→22:56)
[2018-04-05] MEDS: Ascorbic Acid 500 MG Tablet G-TUBE SCH ×2 (09:45→22:56)
[2018-04-05] MEDS: Potassium Chloride 25 MEQ Effervescent Tablet J-TUBE SCH (09:45)
[2018-04-05] MEDS: Enoxaparin Inj 80 MG/0.8 ML Syringe SQ SCH ×2 (09:45→22:56)
[2018-04-05] MEDS: Glycopyrrolate 0.2 MG/ML Vial IV.PUSH PRN (10:11)
[2018-04-05] MEDS: Docusate Sodium Liq 100 MG/10 ML UDC NG/OG SCH ×2 (10:12→22:55)
[2018-04-05] MEDS: Simethicone 125 MG Chew Tablet NG/OG PRN (10:13)
[2018-04-05] MEDS: Polyethylene Glycol 3350 17 GM Packet NG/OG SCH ×2 (10:14→22:56)
--- NOTE | 2018-04-05 12:50 | P.PNONC ---
Subjective Interval history: Patient awake and alert on approach. She has no complaints at this time. RN reports increased and bloody secretions in trach. Objective Vital Signs/Intake & Output: Vital Signs 04/04/18 16:00 04/04/18 16:10 04/04/18 16:32 Temperature 98.0 F Pulse Rate 80 Respiratory Rate 20 20 Blood Pressure 100/60 Pulse Oximetry 97 98 04/04/18 20:00 04/05/18 00:00 04/05/18 04:00 Temperature 98.2 F 99.7 F H 99.4 F Pulse Rate 61 66 112 H Respiratory Rate 18 18 16 Blood Pressure 114/53 L 101/49 L 102/57 L Pulse Oximetry 98 95 98 04/05/18 05:00 04/05/18 08:00 Temperature 99.8 F H Pulse Rate 100 H Respiratory Rate 18 20 Blood Pressure 107/62 Pulse Oximetry 97 Intake & Output 04/04/18 04/05/18 04/05/18 18:59 06:59 18:59 Intake Total 1310 / 1310 1260 / 1260 50 / 50 Output Total 700 / 700 500 / 500 Balance 610 / 610 760 / 760 50 / 50 Weight 71.5 kg Intake: IV 300 / 300 300 / 300 50 / 50 Avycaz Inj 2.5 GM In NS Inj 50 50 / 50 50 / 50 50 / 50 ML @ 25 mls/hr IV.SIG Q8H [facility] Rx#:[id number] Vancomycin Inj 1,000 MG In NS 250 / 250 250 / 250 Inj 250 ML @ 250 mls/hr IV.SIG Q24H [facility] Rx#:[id number] Tube Feeding 660 / 660 660 / 660 Tube Irrigant 180 / 180 Water Bolus Amount 350 / 350 120 / 120 Output: Urine 500 / 500 350 / 350 Gastric Drainage 200 / 200 150 / 150 G Tube 200 / 200 150 / 150 Other: Date of Last Bowel Movement 04/04/18 04/03/18 # Bowel Movements 2 # Incontinent Bowel Movements 1 Result Diagrams: 04/03/18 13:34 04/03/18 07:11 Medications: Active Medications Generic Name Dose Route Start Last Admin Trade Name Freq PRN Reason Stop Dose Admin Acetaminophen 650 mg 03/29/18 16:32 03/29/18 17:25 Tylenol PO 650 mg Q4H PRN Administration FEVER > 101 F Acetaminophen 650 mg 03/07/18 08:32 03/27/18 00:01 Tylenol Liq G-TUBE 650 mg Q6H PRN Administration FEVER Hydrocodone Bitart/Acetaminophen 1 tab 03/30/18 17:24 04/05/18 04:30 [place] 5/325 PO 1 tab Q4H PRN Administration PAIN 2-5 Hydrocodone Bitart/Acetaminophen 2 tab 03/30/18 17:25 04/05/18 10:07 [place] 5/325 PO 2 tab Q4H PRN Administration PAIN 6-10 Albuterol 2.5 mg 03/07/18 00:57 03/21/18 19:22 Albuterol Neb (Prn) NEB 2.5 mg Q2HR NEB PRN Administration SHORTNESS OF BREATH/WHEEZING Ascorbic Acid 500 mg 03/08/18 21:00 04/05/18 09:45 Vitamin C G-TUBE 500 mg BID ANN Administration Bupropion HCl 75 mg 03/28/18 21:00 04/05/18 09:45 Wellbutrin NG/OG 75 mg BID ANN Administration Cetirizine HCl 10 mg 03/28/18 21:00 04/04/18 22:23 Zyrtec NG/OG 10 mg HS ANN Administration Docusate Sodium 100 mg 03/28/18 21:00 04/05/18 10:12 Colace Liq NG/OG Not Given BID ANN Enoxaparin Sodium 70 mg 03/28/18 21:00 04/05/18 09:45 Lovenox Inj SQ 70 mg Q12HR ANN Administration Escitalopram Oxalate 20 mg 03/09/18 09:00 04/05/18 09:45 Lexapro G-TUBE 20 mg DAILY ANN Administration Glycopyrrolate 0.4 mg 03/21/18 16:16 04/05/18 10:11 Robinul Inj IV.PUSH 0.4 mg Q8H PRN Administration thick secretions Hyoscyamine 0.125 mg 03/20/18 10:12 03/27/18 08:31 Levsin Liq SL 0.125 mg Q4H PRN Administration SECRETIONS Hyoscyamine 0.125 mg 03/28/18 17:00 04/05/18 10:09 Levsin PO 0.125 mg Q6H ANN Administration Ceftazidime/Avibactam 2.5 gm/ 50 mls @ 25 mls/hr 04/04/18 06:00 04/05/18 07: 30 Sodium Chloride IV.SIG Infused Q8H ANN Infusion Levothyroxine Sodium 100 mcg 03/09/18 06:00 04/05/18 05:33 Synthroid NG/OG Not Given DAILY@0600 ANN Multivitamins 1 tab 03/09/18 09:00 04/05/18 09:45 Theragran NG/OG 1 tab DAILY ANN Administration Ondansetron HCl 4 mg 03/15/18 10:59 03/27/18 21:41 Zofran Odt SL 4 mg Q6H PRN Administration NAUSEA Pantoprazole Sodium 40 mg 03/21/18 14:00 04/05/18 01:05 Protonix Inj IV.PUSH 40 mg Q12H ANN Administration Polyethylene Glycol 17 gm 03/29/18 09:00 04/05/18 10:14 Miralax NG/OG Not Given BID ANN Potassium Bicarb/Potassium Chloride 25 meq 03/24/18 09:00 04/05/18 09:45 K-Lyte Cl Eff J-TUBE 25 meq DAILY ANN Administration Simethicone 125 mg 03/28/18 17:05 04/05/18 10:13 Phazyme Chew NG/OG 125 mg Q4H PRN Administration RELATING TO BLOATING Sodium Chloride 2 ml 03/07/18 09:00 04/05/18 09:45 Ns Flush IV.FLUSH 2 ml BID ANN Administration Sodium Chloride 2 ml 03/07/18 00:57 03/28/18 20:52 Ns Flush IV.FLUSH 2 ml PRN PRN Administration FLUSH AFTER USING IV ACCESS Zinc Sulfate 220 mg 03/09/18 09:00 04/05/18 09:45 Zinc-220 NG/OG 220 mg DAILY ANN Administration Objective Remarks: GENERAL: Cachectic elderly female patient, lying on her right side in bed, watching TV. In no acute distress. SKIN: Pale, warm and dry. HEAD: Normocephalic. EYES: No scleral icterus. No injection or drainage. NECK: Supple, trachea midline. +Tracheostomy with T-tube attached. CARDIOVASCULAR: Regular rate and rhythm without murmurs. RESPIRATORY: Posterior bilateral breath sounds clear, occasional scattered rhonchi, equal bilaterally. Tracheostomy with T-tube in place, humidified O2 attached. GASTROINTESTINAL: Abdomen soft, tender, nondistended. PEG tube to LUQ. EXTREMITIES: No cyanosis, or edema. MUSCULOSKELETAL: Decreased muscle tone. NEUROLOGICAL: No obvious focal deficit. Awake & alert. Answers questions with 1- 2 words. PSYCHIATRIC: Appropriate mood and affect; insight and judgment normal. Assessment/Plan - Plan Ms. Henson is a 73-year-old woman with history of head and neck cancer. She was initially diagnosed in 2014. Her followup has not been consistent. She is well known patient to Dr. Gopal Pineda, who saw her in January of this year for the anemia. Hematology/oncology is consulted again for the anemia. Plan: 1. Myelodysplasia, not a candidate for chemotherapy. 2. Continue supportive transfusions per patient's son request. 3. Hospice has been offered, as she is a candidate, however her son wishes to proceed with rehab. 4. Continue to monitor bloody secretions, possibly secondary to Lovenox, however patient has DVT. - Attending Statement The exam, history, and the medical decision-making described in the above note were completed with the assistance of the mid-level provider. I reviewed and agree with the findings presented. I attest that I had a [id number] encounter with the patient on the same day, and personally performed and documented my assessment and findings in the medical record. 73 yoF with myelodysplasia, not currently a candidate for treatment due to performance status and comorbid medical conditions. VTE currently on lovenox therapy. Inpatient oncology team will continue to follow.
--- NOTE | 2018-04-05 15:06 | P.PNIM ---
Subjective Interval history: Still with bleeding from her trach, otherwise no complaints, denies any chest pain. Not short of breath. T-max 99.8. Physical Exam Vital signs: Vital Signs 04/04/18 16:00 04/04/18 16:10 04/04/18 16:32 Temperature 98.0 F Pulse Rate 80 Respiratory Rate 20 20 Blood Pressure 100/60 Pulse Oximetry 97 98 04/04/18 20:00 04/05/18 00:00 04/05/18 04:00 Temperature 98.2 F 99.7 F H 99.4 F Pulse Rate 61 66 112 H Respiratory Rate 18 18 16 Blood Pressure 114/53 L 101/49 L 102/57 L Pulse Oximetry 98 95 98 04/05/18 05:00 04/05/18 08:00 04/05/18 12:00 Temperature 99.8 F H 99.4 F Pulse Rate 100 H 66 Respiratory Rate 18 20 18 Blood Pressure 107/62 110/60 Pulse Oximetry 97 98 04/05/18 13:27 Temperature Pulse Rate Respiratory Rate Blood Pressure Pulse Oximetry 98 Intake & Output 04/04/18 04/05/18 04/05/18 18:59 06:59 18:59 Intake Total 1310 / 1310 1260 / 1260 50 / 50 Output Total 700 / 700 500 / 500 1100 / 1100 Balance 610 / 610 760 / 760 -1050 / -1050 Weight 71.5 kg Intake: IV 300 / 300 300 / 300 50 / 50 Avycaz Inj 2.5 GM In NS Inj 50 50 / 50 50 / 50 50 / 50 ML @ 25 mls/hr IV.SIG Q8H [facility] Rx#:[id number] Vancomycin Inj 1,000 MG In NS 250 / 250 250 / 250 Inj 250 ML @ 250 mls/hr IV.SIG Q24H [facility] Rx#:[id number] Tube Feeding 660 / 660 660 / 660 Tube Irrigant 180 / 180 Water Bolus Amount 350 / 350 120 / 120 Output: Urine 500 / 500 350 / 350 750 / 750 Stool 350 / 350 Gastric Drainage 200 / 200 150 / 150 G Tube 200 / 200 150 / 150 Other: Date of Last Bowel Movement 04/04/18 04/03/18 04/05/18 # Bowel Movements 2 # Incontinent Bowel Movements 1 1 Narrative: GENERAL: Elderly female, in no apparent distress. CARDIOVASCULAR: Normal rate and regular rhythm without murmurs, gallops, or rubs. RESPIRATORY: Trached. Breath sounds equal and clear to auscultation bilaterally. GASTROINTESTINAL: Abdomen soft, non-tender, non-distended. PEG tube in place. normal active bowel sounds MUSCULOSKELETAL: Extremities without cyanosis, or edema. NEURO: Alert & Oriented Moves all ext x4 - Urinary Catheter Management Female External Cath placed during this visit: no Indwelling Urethral Catheter Cath placed during this visit: yes, but has since been removed by the nurse Reason for continuing: Hourly intake/output Insertion date: 03/06/18 Insertion time: 18:00 Removal date: 03/10/18 Removal time: 17:00 Results - Labs CBC & Chem 7: 04/03/18 13:34 04/03/18 07:11 Assessment and Plan - Assessment (1) Acute adjustment disorder with depressed mood Code(s): F43.21 - Adjustment disorder with depressed mood Status: Acute (2) Dysphasia Code(s): R47.02 - Dysphasia Status: Acute (3) Respiratory failure Code(s): J96.90 - Respiratory failure, unspecified, unspecified whether with hypoxia or hypercapnia Status: Acute (4) Protein-calorie malnutrition, severe Code(s): E43 - Unspecified severe protein-calorie malnutrition Status: Chronic (5) Laryngeal squamous cell carcinoma Code(s): C32.9 - Malignant neoplasm of larynx, unspecified Status: Acute (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 She has already been treated for pneumonia as well as a MRSA/ Caitlyn tropicalis UTI with multiple antibiotics. Abdominal wound - at this time is growing MRSA and multidrug resistant Pseudomonas. -Infectious disease following. Patient started on Avicaz and IV Vancomycin X7 days (04/04-), check BMP Chronic respiratory failure currently stable on trach with pulmonology following. - Patient with history of supraglottic laryngeal cancer s/p radiation and chemo resulting in radiation-induced laryngeal scarring and recurrent aspiration - S/P tracheostomy 03/11 with general surgery, - Pulmonology following for trach care - Bronchodilators, - On T-piece, pulmo to ask if ENT can change trach to fenestrated Shiley #8 Anemia, Myelodysplasia - Pt with dark output in G-tube noted on 03/21. GI was notified and patient underwent EGD showing radiation telangiectasias in the proximal esophagus, esophageal stricture, inflammatory distal esophageal polyp, normal G-tube placement, and no evidence of blood anywhere in the upper GIT -Transfused 1 unit packed red blood cell March 30, 2018 - not a candidate for chemotx -Follow-up H&H every few days, check CBC tomorrow. Thrombocytopenia, Myelodysplasia - No signs of active bleeding -hematology following; s/p BM biopsy March 31, 2018 showed myelodysplasia but not a candidate for chemotherapy. Failure to thrive, protein energy malnutrition - Patient with severe pharyngeal dysphagia, esophageal stricture - G/J tube in place flush with 60 cc free water every 8 hours and Vital 1.5 at 55/hr per nutrition recs . Continue tube feeding. echo from 03/13/18 shows EF of 55-60%no evidence of CHF Hypothyroidism - Continue home Levothyroxine Adjustment disorder with depression - Continue Lexapro -Continue Wellbutrin 75 mg BID Coccygeal wound - Wound care following, noted new skin tear to left buttock on 03/25 - Calazime BID and PRN for skin tear - Ultrasorb underpad for moisture - Strict Q2H turns from left to right sides only with limited time spent on back for therapies only - Apply OptiForm adhesive to coccyx wound Q3D and PRN for soiling or dislodgement. GERD, h/o Barretts - Continue PPI DVT of the right lower extremities - Repeat Doppler did not reveal any significant changes. - continue subq Lovenox -hematology following. Discharge Planning: Hospice has been offered, as she is a candidate, however her son wishes to proceed with rehab. Need SNF placement. Case management following. (3) Respiratory failure Qualifiers: Chronicity: acute Respiratory failure complication: hypoxia Qualified Code(s ): J96.01 - Acute respiratory failure with hypoxia
--- NOTE | 2018-04-05 16:34 | P.PN ---
Subjective Interval history: She is better. On a T Bar still and has some bloody secretions. Low grade fever. Physical Exam Vital signs: Vital Signs 04/04/18 16:32 04/04/18 20:00 04/05/18 00:00 Temperature 98.2 F 99.7 F H Pulse Rate 61 66 Respiratory Rate 18 18 Blood Pressure 114/53 L 101/49 L Pulse Oximetry 98 98 95 04/05/18 04:00 04/05/18 05:00 04/05/18 08:00 Temperature 99.4 F 99.8 F H Pulse Rate 112 H 100 H Respiratory Rate 16 18 20 Blood Pressure 102/57 L 107/62 Pulse Oximetry 98 97 04/05/18 12:00 04/05/18 13:27 Temperature 99.4 F Pulse Rate 66 Respiratory Rate 18 Blood Pressure 110/60 Pulse Oximetry 98 98 Intake & Output 04/04/18 04/05/18 04/05/18 18:59 06:59 18:59 Intake Total 1310 / 1310 1260 / 1260 50 / 50 Output Total 700 / 700 500 / 500 1100 / 1100 Balance 610 / 610 760 / 760 -1050 / -1050 Weight 71.5 kg Intake: IV 300 / 300 300 / 300 50 / 50 Avycaz Inj 2.5 GM In NS Inj 50 50 / 50 50 / 50 50 / 50 ML @ 25 mls/hr IV.SIG Q8H [facility] Rx#:[id number] Vancomycin Inj 1,000 MG In NS 250 / 250 250 / 250 Inj 250 ML @ 250 mls/hr IV.SIG Q24H [facility] Rx#:[id number] Tube Feeding 660 / 660 660 / 660 Tube Irrigant 180 / 180 Water Bolus Amount 350 / 350 120 / 120 Output: Urine 500 / 500 350 / 350 750 / 750 Stool 350 / 350 Gastric Drainage 200 / 200 150 / 150 G Tube 200 / 200 150 / 150 Other: Date of Last Bowel Movement 04/04/18 04/03/18 04/05/18 # Bowel Movements 2 # Incontinent Bowel Movements 1 1 Narrative: GENERAL: Elderly female, Awake in no apparent distress.Neck with trach in. CARDIOVASCULAR: Normal rate and regular rhythm without murmurs, gallops, or rubs. RESPIRATORY: Breath sounds equal and clear to auscultation bilaterally. GASTROINTESTINAL: Abdomen soft, non-tender, non-distended. PEG tube in place. normal active bowel sounds MUSCULOSKELETAL: Extremities without cyanosis, or edema.Has Muscle wasting. NEURO: Alert & Oriented Moves all ext x4 - Urinary Catheter Management Female External Cath placed during this visit: no Indwelling Urethral Catheter Cath placed during this visit: yes, but has since been removed by the nurse Reason for continuing: Hourly intake/output Insertion date: 03/06/18 Insertion time: 18:00 Removal date: 03/10/18 Removal time: 17:00 Results - Labs CBC & Chem 7: 04/03/18 13:34 04/03/18 07:11 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 - Malignant neoplasm of larynx, unspecified Status: Acute (3) Supraglottic stenosis Code(s): J38.6 - Stenosis of larynx Status: Acute (4) Status post radiation therapy Code(s): Z92.3 - Personal history of irradiation Status: Acute (5) Barretts esophagus Code(s): K22.70 - Rendon's esophagus without dysplasia Status: Acute (6) Dyspnea Code(s): R06.00 - Dyspnea, unspecified Status: Acute (7) Aspiration pneumonia Code(s): J69.0 - Pneumonitis due to inhalation of food and vomit Status: Acute (8) Aspiration into airway Code(s): T17.908A - Unspecified foreign body in respiratory tract, part unspecified causing other injury, initial encounter Status: Acute (9) DVT (deep venous thrombosis) Code(s): I82.409 - Acute embolism and thrombosis of unspecified deep veins of unspecified lower extremity Status: Acute - Plan 1. Leave on T Bar 30 % FIO2 all the time. 2. Trach care and lavage PRN 3. Continue Duo nebs q6h 4. PT evaluation to help activity 5. Will ask ENT if Trach can be changed to fenestrated shiley #8. 6. Cont levsin .125 mg TID S/L PRN 7. Tube feeds at 60 CC. 8. Cont Anticoagulation 9. Will use PM valve to talk after trach change. (7) Aspiration pneumonia Qualifiers: Aspiration pneumonia type: unspecified Laterality: unspecified laterality Lung location: unspecified part of lung Qualified Code(s): J69.0 - Pneumonitis due to inhalation of food and vomit
--- NOTE | 2018-04-05 20:55 | XR ---
EXAM DATE: 04/05/2018 8:42 PM EDT AGE/SEX: 73 years / Female INDICATIONS: Hemoptysis. CLINICAL DATA: This is the patient's subsequent encounter. Patient reports that signs and symptoms h ave been present for 1 month and indicates a pain score of Nonresponsive. MEDICAL/SURGICAL HISTORY: . Laryngeal ca, milan's esophagus, pneumonia, sepsis. . Appendect chela. Hernia repair, tracheostomy. COMPARISON: [facility] – [place], CHEST 1V SINGLE AP, 04/02/2018. . FINDINGS: Mild cardiomegaly. Consolidation in the left lower lobe with loss of delineation of the medial one th ird of the left hemidiaphragm. Diffuse hazy opacity in the mid and lower right lung. Indistinctness o f the central bronchopulmonary markings. The findings are very similar to prior examination 04/02/[address]. CONCLUSION: Congestive failure similar in severity to prior. Electronically signed by: Gab Faria MD 04/05/2018 8:54 PM EDT
[2018-04-06] MEDS: Pantoprazole Inj 40 MG Vial IV.PUSH SCH ×2 (01:48→14:59)
[2018-04-06] MEDS: Ceftazidime/Avibactam Inj 2.5 GM in Sodium Chlor 0.9% Inj 50 ML IV.SIG SCH ×2 (06:08→14:59)
[2018-04-06] MEDS: Levothyroxine 100 MCG Tablet NG/OG SCH (06:10)
[2018-04-06] MEDS: Vancomycin Inj 1,000 MG in Sodium Chlor 0.9% Inj 250 ML IV.SIG SCH (06:11)
[2018-04-06 09:08] LABS: Hematocrit 27.5 % (35.0-46.0); Hemoglobin 9.2 gm/dL (11.6-15.3); Mean Corpuscular HGB Conc 33.3 % (32.0-36.0); Mean Corpuscular Hemoglobin 28.5 pg (27.0-34.0); Mean Corpuscular Volume 85.7 fL (80.0-100.0); Mean Platelet Volume 8.8 fL (7.0-11.0); Platelet Count 106 th/mm3 (150-450); Red Blood Count 3.21 mil/mm3 (4.00-5.30); White Blood Count 3.9 th/mm3 (4.0-11.0)
[2018-04-06 09:14] LABS: Carbon Dioxide 29.1 meq/L (21.0-32.0); Potassium 4.1 meq/L (3.5-5.1)
[2018-04-06] MEDS: Ascorbic Acid 500 MG Tablet G-TUBE SCH (09:33)
[2018-04-06] MEDS: buPROPion 75 MG Tablet NG/OG SCH ×2 (09:33→22:39)
[2018-04-06] MEDS: Polyethylene Glycol 3350 17 GM Packet NG/OG SCH ×2 (09:33→22:38)
[2018-04-06] MEDS: Enoxaparin Inj 80 MG/0.8 ML Syringe SQ SCH ×2 (09:33→22:38)
[2018-04-06] MEDS: Potassium Chloride 25 MEQ Effervescent Tablet J-TUBE SCH (09:34)
[2018-04-06] MEDS: Docusate Sodium Liq 100 MG/10 ML UDC NG/OG SCH ×2 (09:34→22:37)
[2018-04-06 09:55] LABS: Blast Cells 2 % (0-0); Eosinophils 7 % (0-4); Lymphocytes 6 % (9-44); Metamyelocytes 7 % (0-1); Monocytes 2 % (0-8); Myelocytes 11 % (0-0)
--- NOTE | 2018-04-06 11:15 | P.DIET ---
Nutritional Evaluation Type of nutrition evaluation: follow-up Nutrition consult regarding: Tube Feeding Nutrition screening: [facility] [place] - Diagnosis Respiratory Failure - Objective [place] body weight: 59 kg % IBW: 113 Body Weight Used for Calculations: Actual (Actual Body Wt 67kg(147-lb)) Energy Needs - Lower Range (kCal/kg): 25 Energy Needs - Upper Range (kCal/kg): 30 Lower Limit kCal/kg (kCals): 1,675 Upper Limit kCal/kg (kCals): 2,010 Lower Limit Protein Factor (Grams per Kg): 1.2 Upper Limit Protein Factor (Grams per Kg): 1.5 Lower Protein Needs (Protein): 80 Upper Protein Needs (Protein): 101 Dietitian Reviewed in Medical Record: Curent medications, Intake & Output, Labs , Medical history, Tube feeding Diet Order: TF'ing ONLY: Vital 1.5 @ goal rate 55ml/hr Objective Comments: PMH: Arthritis, Ralph's Esophagus, GERD, Hypothyroidism, Skin Cancer of forehead, Squamous cell carcinoma of larynx, Squamous cell carcinoma of supraglottis s/p laproscopic G-J tube placement 02/13/18 Meds include: Synthroid, Theragran Feeding - Current Tube Feeding Tube Feeding Product: Vital 1.5 Tube Feeding Method: Pump Tube Feeding Rate: 55 Tube Feeding Route: J/G tube Current kCals Provided by Tube Feedin,800 Current Protein Provided by Tube Feeding (gPRO): 81 Medications That Affect Tube Feeding Run Time: Synthroid Total Time Off: 2 hours Current Free H2O Provided (m/l): 917 Assessment Assessment: MD noted pt. still bleeding from her trach. Pt. with +BM, +UOP but wts. remain inconsistent. Pt. continues on Synthroid. Recommend continuing Vital 1.5 @ 55mls /hr over 22 hours. Continue to monitor TFing tolerance and labs. Recommendations: 1. Recommend continuing Vital 1.5 @ 55mls/hr over 22 hours. 2. Continue to monitor TFing tolerance and labs. Dietitian to Monitor: Lab values, Glucose level, Intake & Output, Tube feeding tolerance, Weight change, Medical course
--- NOTE | 2018-04-06 15:11 | P.PNIM ---
Subjective Interval history: Follow-up for bloody secretions and anemia CBC stable. Still with bloody secretions per T bar. No complaints. Not in pain. Afebrile. Physical Exam Vital signs: Vital Signs 04/05/18 16:00 04/05/18 20:00 04/06/18 00:00 Temperature 99.1 F 97.9 F 97 F L Pulse Rate 74 62 61 Respiratory Rate 20 18 20 Blood Pressure 98/54 L 122/58 L 122/58 L Pulse Oximetry 96 95 91 L 04/06/18 04:00 04/06/18 08:00 04/06/18 12:00 Temperature 97.4 F L 98.0 F 97.7 F Pulse Rate 55 L 62 59 L Respiratory Rate 20 20 20 Blood Pressure 125/59 L 120/68 127/60 Pulse Oximetry 97 98 98 04/06/18 13:46 Temperature Pulse Rate Respiratory Rate Blood Pressure Pulse Oximetry 99 Intake & Output 04/05/18 04/06/18 04/06/18 18:59 06:59 18:59 Intake Total 1110 / 1110 50 / 50 300 / 300 Output Total 2250 / 2250 Balance -1140 / -1140 50 / 50 300 / 300 Intake: IV 100 / 100 50 / 50 300 / 300 Avycaz Inj 2.5 GM In NS Inj 50 100 / 100 50 / 50 50 / 50 ML @ 25 mls/hr IV.SIG Q8H ANN Rx#:[id number] Vancomycin Inj 1,000 MG In NS 250 / 250 Inj 250 ML @ 250 mls/hr IV.SIG Q24H ANN Rx#:[id number] Tube Feeding 660 / 660 Water Bolus Amount 350 / 350 Output: Urine 1600 / 1600 Stool 350 / 350 Gastric Drainage 300 / 300 G Tube 300 / 300 Other: # Voids 2 1 # Incontinent Voids 2 Date of Last Bowel Movement 04/05/18 04/05/18 # Incontinent Bowel Movements 1 Narrative: GENERAL: Elderly female, in no apparent distress. CARDIOVASCULAR: Normal rate and regular rhythm without murmurs, gallops, or rubs. RESPIRATORY: Trached with blood secretions at times. Breath sounds equal and clear to auscultation bilaterally. GASTROINTESTINAL: Abdomen soft, non-tender, non-distended. PEG tube in place. normal active bowel sounds MUSCULOSKELETAL: Extremities without cyanosis, or edema. NEURO: Alert & Oriented x 2. Moves all ext x4 - Urinary Catheter Management Female External Cath placed during this visit: no Indwelling Urethral Catheter Cath placed during this visit: yes, but has since been removed by the nurse Reason for continuing: Hourly intake/output Insertion date: 03/06/18 Insertion time: 18:00 Removal date: 03/10/18 Removal time: 17:00 Results - Labs CBC & Chem 7: 04/06/18 07:47 04/06/18 07:47 Laboratory Results - last 24 hr 04/06/18 04/06/18 07:47 07:47 WBC 3.9 L RBC 3.21 L Hgb 9.2 L Hct 27.5 L MCV 85.7 MCH 28.5 MCHC 33.3 RDW 19.0 H Plt Count 106 L MPV 8.8 Prelim Diff (Auto) Manual diff required WBC Differential Manual diff final Seg Neuts % (Manual) 46 Band Neuts % (Manual) 16 H Lymphocytes % (Manual) 6 L Monocytes % (Manual) 2 Eosinophils % (Manual) 7 H Basophils % (Manual) 3 H Metamyelocytes % (Man) 7 H Myelocytes % (Man) 11 H Blast Cells % (Manual) 2 H Abs Neuts (Manual) 3.1 Differential Comment . Platelet Estimate Low L Platelet Morphology Enlarged H Sodium 135 L Potassium 4.1 Chloride 98 Carbon Dioxide 29.1 Anion Gap 8 BUN 27 H Creatinine 0.96 Estimated GFR 57 L Random Glucose 82 Calcium 8.0 L - Imaging Impressions Chest X-Ray 04/05/18 20:22 CONCLUSION: Congestive failure similar in severity to prior. Assessment and Plan - Assessment (1) Acute adjustment disorder with depressed mood Code(s): F43.21 - Adjustment disorder with depressed mood Status: Acute (2) Dysphasia Code(s): R47.02 - Dysphasia Status: Acute (3) Respiratory failure Code(s): J96.90 - Respiratory failure, unspecified, unspecified whether with hypoxia or hypercapnia Status: Acute (4) Protein-calorie malnutrition, severe Code(s): E43 - Unspecified severe protein-calorie malnutrition Status: Chronic (5) Laryngeal squamous cell carcinoma Code(s): C32.9 - Malignant neoplasm of larynx, unspecified Status: Acute (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 She has already been treated for pneumonia as well as a MRSA/ Caitlyn tropicalis UTI with multiple antibiotics. Abdominal wound - at this time is growing MRSA and multidrug resistant Pseudomonas. -Infectious disease following. Patient started on Avicaz and IV Vancomycin X7 days (04/04-), BMP stable Chronic respiratory failure currently stable on trach with pulmonology following. 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 GI was notified and patient underwent EGD showing radiation telangiectasias in the proximal esophagus, esophageal stricture, inflammatory distal esophageal polyp, normal G-tube placement, and no evidence of blood anywhere in the upper GIT -Transfused 1 unit packed red blood cell March 30, 2018 - not a candidate for chemotx -Follow-up H&H every few days, Hgb stable at 9.2 on 04/06 Thrombocytopenia, Myelodysplasia - No signs of active bleeding -hematology following; s/p BM biopsy March 31, 2018 showed myelodysplasia but not a candidate for chemotherapy. Failure to thrive, protein energy malnutrition - Patient with severe pharyngeal dysphagia, esophageal stricture - G/J tube in place flush with 60 cc free water every 8 hours and Vital 1.5 at 55/hr per nutrition recs . Continue tube feeding. Hypothyroidism - Continue home Levothyroxine Adjustment disorder with depression - Continue Lexapro -Continue Wellbutrin 75 mg BID Coccygeal wound - Wound care following, noted new skin tear to left buttock on 03/25 - Calazime BID and PRN for skin tear - Ultrasorb underpad for moisture - Strict Q2H turns from left to right sides only with limited time spent on back for therapies only - Apply OptiForm adhesive to coccyx wound Q3D and PRN for soiling or dislodgement. GERD, h/o Barretts - Continue PPI DVT of the right lower extremities - Repeat Doppler did not reveal any significant changes. - continue subq Lovenox -hematology following. Discharge Planning: Hospice has been offered, as she is a candidate, however her son wishes to proceed with rehab. Need SNF placement. Case management following. (3) Respiratory failure Qualifiers: Chronicity: acute Respiratory failure complication: hypoxia Qualified Code(s ): J96.01 - Acute respiratory failure with hypoxia
--- NOTE | 2018-04-06 15:23 | P.PN ---
Subjective Interval history: Has some bloody secretions from trach site. O2 sats 96. She is alert and not in distress. Physical Exam Vital signs: Vital Signs 04/05/18 16:00 04/05/18 20:00 04/06/18 00:00 Temperature 99.1 F 97.9 F 97 F L Pulse Rate 74 62 61 Respiratory Rate 20 18 20 Blood Pressure 98/54 L 122/58 L 122/58 L Pulse Oximetry 96 95 91 L 04/06/18 04:00 04/06/18 08:00 04/06/18 12:00 Temperature 97.4 F L 98.0 F 97.7 F Pulse Rate 55 L 62 59 L Respiratory Rate 20 20 20 Blood Pressure 125/59 L 120/68 127/60 Pulse Oximetry 97 98 98 04/06/18 13:46 Temperature Pulse Rate Respiratory Rate Blood Pressure Pulse Oximetry 99 Intake & Output 04/05/18 04/06/18 04/06/18 18:59 06:59 18:59 Intake Total 1110 / 1110 50 / 50 300 / 300 Output Total 2250 / 2250 Balance -1140 / -1140 50 / 50 300 / 300 Intake: IV 100 / 100 50 / 50 300 / 300 Avycaz Inj 2.5 GM In NS Inj 50 100 / 100 50 / 50 50 / 50 ML @ 25 mls/hr IV.SIG Q8H ANN Rx#:[id number] Vancomycin Inj 1,000 MG In NS 250 / 250 Inj 250 ML @ 250 mls/hr IV.SIG Q24H ANN Rx#:[id number] Tube Feeding 660 / 660 Water Bolus Amount 350 / 350 Output: Urine 1600 / 1600 Stool 350 / 350 Gastric Drainage 300 / 300 G Tube 300 / 300 Other: # Voids 2 1 # Incontinent Voids 2 Date of Last Bowel Movement 04/05/18 04/05/18 # Incontinent Bowel Movements 1 Narrative: GENERAL: Elderly female, in no apparent distress. CARDIOVASCULAR: Normal rate and regular rhythm without murmurs, gallops, or rubs. RESPIRATORY: Neck: Trach in place with T Bar, with bloody secretions at times. Breath sounds equal and clear to auscultation bilaterally. GASTROINTESTINAL: Abdomen soft, non-tender, non-distended. PEG tube in place. normal active bowel sounds MUSCULOSKELETAL: Extremities without cyanosis, or edema. NEURO: Alert & Oriented x 2. Moves all ext x4 - Urinary Catheter Management Female External Cath placed during this visit: no Indwelling Urethral Catheter Cath placed during this visit: yes, but has since been removed by the nurse Reason for continuing: Hourly intake/output Insertion date: 03/06/18 Insertion time: 18:00 Removal date: 03/10/18 Removal time: 17:00 Results - Labs CBC & Chem 7: 04/06/18 07:47 04/06/18 07:47 Laboratory Results - last 24 hr 04/06/18 04/06/18 07:47 07:47 WBC 3.9 L RBC 3.21 L Hgb 9.2 L Hct 27.5 L MCV 85.7 MCH 28.5 MCHC 33.3 RDW 19.0 H Plt Count 106 L MPV 8.8 Prelim Diff (Auto) Manual diff required WBC Differential Manual diff final Seg Neuts % (Manual) 46 Band Neuts % (Manual) 16 H Lymphocytes % (Manual) 6 L Monocytes % (Manual) 2 Eosinophils % (Manual) 7 H Basophils % (Manual) 3 H Metamyelocytes % (Man) 7 H Myelocytes % (Man) 11 H Blast Cells % (Manual) 2 H Abs Neuts (Manual) 3.1 Differential Comment . Platelet Estimate Low L Platelet Morphology Enlarged H Sodium 135 L Potassium 4.1 Chloride 98 Carbon Dioxide 29.1 Anion Gap 8 BUN 27 H Creatinine 0.96 Estimated GFR 57 L Random Glucose 82 Calcium 8.0 L - Imaging Impressions Chest X-Ray 04/05/18 20:22 CONCLUSION: Congestive failure similar in severity to prior. 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 - Malignant neoplasm of larynx, unspecified Status: Acute (3) Supraglottic stenosis Code(s): J38.6 - Stenosis of larynx Status: Acute (4) Status post radiation therapy Code(s): Z92.3 - Personal history of irradiation Status: Acute (5) Barretts esophagus Code(s): K22.70 - Rendon's esophagus without dysplasia Status: Acute (6) Dyspnea Code(s): R06.00 - Dyspnea, unspecified Status: Acute (7) Aspiration pneumonia Code(s): J69.0 - Pneumonitis due to inhalation of food and vomit Status: Acute (8) Aspiration into airway Code(s): T17.908A - Unspecified foreign body in respiratory tract, part unspecified causing other injury, initial encounter Status: Acute (9) DVT (deep venous thrombosis) Code(s): I82.409 - Acute embolism and thrombosis of unspecified deep veins of unspecified lower extremity Status: Acute - Plan 1. Place on T Collar 30 % FIO2 all the time. 2. Trach care and lavage PRN. reduce suctioning if bleeding from trach 3. Continue Duo nebs q6h 4. PT evaluation to help activity 5. Will ask ENT if Trach can be changed to fenestrated shiley # 8. 6. Cont levsin .125 mg TID S/L PRN 7. Tube feeds at 60 CC. 8. Cont Anticoagulation 9. Will use PM valve to talk after trach change. 10. Chest Xray in am (7) Aspiration pneumonia Qualifiers: Aspiration pneumonia type: unspecified Laterality: unspecified laterality Lung location: unspecified part of lung Qualified Code(s): J69.0 - Pneumonitis due to inhalation of food and vomit
[2018-04-07] MEDS: Vancomycin Inj 1,000 MG in Sodium Chlor 0.9% Inj 250 ML IV.SIG SCH (05:12)
[2018-04-07] MEDS: Levothyroxine 100 MCG Tablet NG/OG SCH (05:13)
[2018-04-07] MEDS: Pantoprazole Inj 40 MG Vial IV.PUSH SCH ×2 (05:25→14:58)
--- NOTE | 2018-04-07 06:36 | XR ---
EXAM DATE: 04/07/2018 6:30 AM EDT AGE/SEX: 73 years / Female INDICATIONS: Short of breath, evaluate edema CLINICAL DATA: This is the patient's subsequent encounter. Patient reports that signs and symptoms h ave been present for 1 month and indicates a pain score of Nonresponsive. MEDICAL/SURGICAL HISTORY: Sepsis. pneumonia, laryngeal cancer, barretts esophagus Appendectomy . tracheostomy, hernia repair COMPARISON: [facility] [place], CHEST 1V SINGLE AP, 04/05/2018. . FINDINGS: A single AP view of the chest demonstrates the lungs to be symmetrically aerated without evidence of mass, infiltrate or effusion. Tracheostomy tube. The cardiomediastinal contours are unremarkable. O sseous structures are intact. CONCLUSION: No acute cardiopulmonary disease. Electronically signed by: Gab Caro MD 04/07/2018 6:35 AM EDT
[2018-04-07] MEDS: Ascorbic Acid 500 MG Tablet G-TUBE SCH ×3 (07:43→22:24)
[2018-04-07] MEDS: Ceftazidime/Avibactam Inj 2.5 GM in Sodium Chlor 0.9% Inj 50 ML IV.SIG SCH ×4 (07:44→21:48)
[2018-04-07] MEDS: Docusate Sodium Liq 100 MG/10 ML UDC NG/OG SCH (08:24)
[2018-04-07] MEDS: Potassium Chloride 25 MEQ Effervescent Tablet J-TUBE SCH (08:24)
[2018-04-07] MEDS: Glycopyrrolate 0.2 MG/ML Vial IV.PUSH PRN (08:25)
[2018-04-07] MEDS: Enoxaparin Inj 80 MG/0.8 ML Syringe SQ SCH ×2 (08:26→21:43)
[2018-04-07] MEDS: buPROPion 75 MG Tablet NG/OG SCH ×2 (08:26→21:47)
[2018-04-07] MEDS: Polyethylene Glycol 3350 17 GM Packet NG/OG SCH (08:27)
--- NOTE | 2018-04-07 11:03 | P.PN ---
Subjective Interval history: awake and alert, ff commands toelrating tube feedings voiding loose stools Physical Exam Vital signs: Vital Signs 04/06/18 12:00 04/06/18 13:46 04/06/18 16:00 Temperature 97.7 F 97.5 F L Pulse Rate 59 L 59 L Respiratory Rate 20 18 Blood Pressure 127/60 117/63 Pulse Oximetry 98 99 98 04/06/18 17:29 04/06/18 20:00 04/07/18 00:00 Temperature 98 F 97.9 F Pulse Rate 60 76 Respiratory Rate 20 18 Blood Pressure 117/57 L 124/70 Pulse Oximetry 99 97 97 04/07/18 04:00 04/07/18 06:28 04/07/18 08:00 Temperature 98 F 97.6 F Pulse Rate 79 58 L Respiratory Rate 14 14 Blood Pressure 132/57 L 126/58 L Pulse Oximetry 97 98 96 04/07/18 09:34 04/07/18 09:47 Temperature Pulse Rate 70 Respiratory Rate 17 Blood Pressure Pulse Oximetry 97 Intake & Output 04/06/18 04/07/18 04/07/18 18:59 06:59 18:59 Intake Total 1310 / 1310 1050 / 1050 50 / 50 Output Total 1800 / 1800 Balance -490 / -490 1050 / 1050 50 / 50 Weight 66.8 kg Intake: IV 350 / 350 50 / 50 Avycaz Inj 2.5 GM In NS Inj 50 100 / 100 50 / 50 ML @ 25 mls/hr IV.SIG Q8H ANN Rx#:[id number] Vancomycin Inj 1,000 MG In NS 250 / 250 Inj 250 ML @ 250 mls/hr IV.SIG Q24H ANN Rx#:[id number] Oral 0 / 0 Tube Feeding 660 / 660 950 / 950 Tube Irrigant 180 / 180 100 / 100 Water Bolus Amount 120 / 120 Output: Urine 1000 / 1000 Emesis 0 / 0 Gastric Drainage 800 / 800 G Tube 800 / 800 Other: Date of Last Bowel Movement 04/06/18 04/06/18 # Bowel Movements 1 Narrative: awake and alert, moving all extremities anicteric tracehostomy on place, ligj=ht red tinged thin secretions regular rhythm without murmurs, gallops, or rubs. Neck: Trach in place with T Bar, with light red tinged thin secretions at times Breath sounds equal and clear to auscultation bilaterally. GASTROINTESTINAL: Abdomen soft, non-tender, non-distended. PEG tube in place. normal active bowel sounds MUSCULOSKELETAL: Extremities without cyanosis, or edema. NEURO: Alert & Oriented x 2. Moves all ext x4 - Urinary Catheter Management Female External Cath placed during this visit: no Indwelling Urethral Catheter Cath placed during this visit: yes, but has since been removed by the nurse Reason for continuing: Hourly intake/output Insertion date: 03/06/18 Insertion time: 18:00 Removal date: 03/10/18 Removal time: 17:00 Results - Labs CBC & Chem 7: 04/06/18 07:47 04/06/18 07:47 - Imaging Impressions Chest X-Ray 04/07/18 00:00 CONCLUSION: No acute cardiopulmonary disease. Assessment and Plan - Assessment (1) Acute adjustment disorder with depressed mood Code(s): F43.21 - Adjustment disorder with depressed mood Status: Acute (2) Dysphasia Code(s): R47.02 - Dysphasia Status: Acute (3) Respiratory failure Code(s): J96.90 - Respiratory failure, unspecified, unspecified whether with hypoxia or hypercapnia Status: Acute (4) Protein-calorie malnutrition, severe Code(s): E43 - Unspecified severe protein-calorie malnutrition Status: Chronic (5) Laryngeal squamous cell carcinoma Code(s): C32.9 - Malignant neoplasm of larynx, unspecified Status: Acute (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 She has already been treated for pneumonia as well as a MRSA/ Caitlyn tropicalis UTI with multiple antibiotics. Abdominal wound - at this time is growing MRSA and multidrug resistant Pseudomonas. -Infectious disease following. Patient started on Avicaz and IV Vancomycin X7 days (04/04-), BMP stable Chronic respiratory failure currently stable on trach with pulmonology following. 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 GI was notified and patient underwent EGD showing radiation telangiectasias in the proximal esophagus, esophageal stricture, inflammatory distal esophageal polyp, normal G-tube placement, and no evidence of blood anywhere in the upper GIT -Transfused 1 unit packed red blood cell March 30, 2018 - not a candidate for chemotx -Follow-up H&H every few days, Hgb stable at 9.2 on 04/06 Thrombocytopenia, Myelodysplasia - No signs of active bleeding -hematology following; s/p BM biopsy March 31, 2018 showed myelodysplasia but not a candidate for chemotherapy. Failure to thrive, protein energy malnutrition - Patient with severe pharyngeal dysphagia, esophageal stricture - G/J tube in place flush with 60 cc free water every 8 hours and Vital 1.5 at 55/hr per nutrition recs . Continue tube feeding. Hypothyroidism - Continue home Levothyroxine Adjustment disorder with depression - Continue Lexapro -Continue Wellbutrin 75 mg BID Coccygeal wound - Wound care following, noted new skin tear to left buttock on 03/25 - Calazime BID and PRN for skin tear - Ultrasorb underpad for moisture - Strict Q2H turns from left to right sides only with limited time spent on back for therapies only - Apply OptiForm adhesive to coccyx wound Q3D and PRN for soiling or dislodgement. GERD, h/o Barretts - Continue PPI DVT of the right lower extremities - Repeat Doppler did not reveal any significant changes. - continue subq Lovenox -hematology following. LOose stools - C diff negative. will DC colace and Miralax Discharge Planning: Hospice has been offered, as she is a candidate, however her son wishes to proceed with rehab. Need SNF placement. Case management following. (3) Respiratory failure Qualifiers: Chronicity: acute Respiratory failure complication: hypoxia Qualified Code(s ): J96.01 - Acute respiratory failure with hypoxia
--- NOTE | 2018-04-07 18:05 | P.PN ---
Subjective Interval history: Alert and on o2 30 % Via trach collar now. Less bloody secretions from trach No fever Physical Exam Vital signs: Vital Signs 04/06/18 20:00 04/07/18 00:00 04/07/18 04:00 Temperature 98 F 97.9 F 98 F Pulse Rate 60 76 79 Respiratory Rate 20 18 14 Blood Pressure 117/57 L 124/70 132/57 L Pulse Oximetry 97 97 97 04/07/18 06:28 04/07/18 08:00 04/07/18 09:34 Temperature 97.6 F Pulse Rate 58 L Respiratory Rate 14 Blood Pressure 126/58 L Pulse Oximetry 98 96 97 04/07/18 09:47 04/07/18 11:19 04/07/18 12:00 Temperature 97.6 F Pulse Rate 70 65 Respiratory Rate 17 12 14 Blood Pressure 128/58 L Pulse Oximetry 98 04/07/18 14:56 04/07/18 16:00 Temperature 97.9 F Pulse Rate 63 Respiratory Rate 12 14 Blood Pressure 119/74 Pulse Oximetry 99 Intake & Output 04/06/18 04/07/18 04/07/18 18:59 06:59 18:59 Intake Total 1310 / 1310 1050 / 1050 1050 / 1050 Output Total 1800 / 1800 Balance -490 / -490 1050 / 1050 1050 / 1050 Weight 66.8 kg Intake: IV 350 / 350 100 / 100 Avycaz Inj 2.5 GM In NS Inj 50 100 / 100 100 / 100 ML @ 25 mls/hr IV.SIG Q8H ANN Rx#:[id number] Vancomycin Inj 1,000 MG In NS 250 / 250 Inj 250 ML @ 250 mls/hr IV.SIG Q24H ANN Rx#:[id number] Oral 0 / 0 Tube Feeding 660 / 660 950 / 950 500 / 500 Tube Irrigant 180 / 180 100 / 100 0 / 0 Water Bolus Amount 120 / 120 100 / 100 Other 350 / 350 Output: Urine 1000 / 1000 Emesis 0 / 0 Gastric Drainage 800 / 800 G Tube 800 / 800 Other: Other Intake Source Saline Solution # Voids 3 Date of Last Bowel Movement 04/06/18 04/06/18 04/07/18 # Bowel Movements 1 3 Narrative: awake and alert, moving all extremities. HEENT , unremarkable. regular rhythm without murmurs, gallops, or rubs. Neck: Trach in place with light red tinged thin secretions at times Breath sounds equal and clear to auscultation bilaterally. GASTROINTESTINAL: Abdomen soft, non-tender, non-distended. PEG tube in place. normal active bowel sounds MUSCULOSKELETAL: Extremities without cyanosis, or edema. NEURO: Alert & Oriented x 2. Moves all ext x4 - Urinary Catheter Management Female External Cath placed during this visit: no Indwelling Urethral Catheter Cath placed during this visit: yes, but has since been removed by the nurse Reason for continuing: Hourly intake/output Insertion date: 03/06/18 Insertion time: 18:00 Removal date: 03/10/18 Removal time: 17:00 Results - Labs CBC & Chem 7: 04/06/18 07:47 04/06/18 07:47 - Imaging Impressions Chest X-Ray 04/07/18 00:00 CONCLUSION: No acute cardiopulmonary disease. 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 - Malignant neoplasm of larynx, unspecified Status: Acute (3) Supraglottic stenosis Code(s): J38.6 - Stenosis of larynx Status: Acute (4) Status post radiation therapy Code(s): Z92.3 - Personal history of irradiation Status: Acute (5) Barretts esophagus Code(s): K22.70 - Rendon's esophagus without dysplasia Status: Acute (6) Dyspnea Code(s): R06.00 - Dyspnea, unspecified Status: Acute (7) Aspiration pneumonia Code(s): J69.0 - Pneumonitis due to inhalation of food and vomit Status: Acute (8) Aspiration into airway Code(s): T17.908A - Unspecified foreign body in respiratory tract, part unspecified causing other injury, initial encounter Status: Acute (9) DVT (deep venous thrombosis) Code(s): I82.409 - Acute embolism and thrombosis of unspecified deep veins of unspecified lower extremity Status: Acute - Plan 1. Cont on T Collar 30 % FIO2 all the time. 2. Trach care and lavage PRN. reduce suctioning if bleeding from trach 3. Continue Duo nebs q6h 4. PT evaluation to help activity 5. Will ask ENT if Trach can be changed to fenestrated shiley # 8. 6. Cont levsin .125 mg TID S/L PRN 7. Tube feeds at 60 CC. 8. CBC,BMP 9. Will use PM valve to talk after trach change. (7) Aspiration pneumonia Qualifiers: Aspiration pneumonia type: unspecified Laterality: unspecified laterality Lung location: unspecified part of lung Qualified Code(s): J69.0 - Pneumonitis due to inhalation of food and vomit
[2018-04-08] MEDS: Pantoprazole Inj 40 MG Vial IV.PUSH SCH ×2 (02:20→13:51)
[2018-04-08] MEDS: Vancomycin Inj 1,000 MG in Sodium Chlor 0.9% Inj 250 ML IV.SIG SCH (05:40)
[2018-04-08] MEDS: Levothyroxine 100 MCG Tablet NG/OG SCH (06:23)
[2018-04-08] MEDS: Ceftazidime/Avibactam Inj 2.5 GM in Sodium Chlor 0.9% Inj 50 ML IV.SIG SCH ×3 (06:53→23:10)
[2018-04-08] MEDS: Enoxaparin Inj 80 MG/0.8 ML Syringe SQ SCH ×2 (08:02→23:03)
[2018-04-08] MEDS: Potassium Chloride 25 MEQ Effervescent Tablet J-TUBE SCH (08:02)
[2018-04-08] MEDS: Glycopyrrolate 0.2 MG/ML Vial IV.PUSH PRN (08:02)
[2018-04-08] MEDS: buPROPion 75 MG Tablet NG/OG SCH ×2 (08:03→23:03)
[2018-04-08] MEDS: Ascorbic Acid 500 MG Tablet G-TUBE SCH ×2 (08:03→23:03)
--- NOTE | 2018-04-08 08:38 | P.PN ---
Subjective Interval history: patient is awake and laert minimal secretins Physical Exam Vital signs: Vital Signs 04/07/18 09:34 04/07/18 09:47 04/07/18 11:19 Temperature Pulse Rate 70 Respiratory Rate 17 12 Blood Pressure Pulse Oximetry 97 04/07/18 12:00 04/07/18 14:56 04/07/18 16:00 Temperature 97.6 F 97.9 F Pulse Rate 65 63 Respiratory Rate 14 12 14 Blood Pressure 128/58 L 119/74 Pulse Oximetry 98 99 04/07/18 20:00 04/07/18 20:35 04/08/18 00:00 Temperature 97.7 F 98.5 F Pulse Rate 61 61 Respiratory Rate 20 20 Blood Pressure 146/68 H 119/57 L Pulse Oximetry 97 96 99 04/08/18 01:16 04/08/18 04:00 04/08/18 07:42 Temperature 97.0 F L Pulse Rate 58 L Respiratory Rate 20 Blood Pressure 111/54 L Pulse Oximetry 99 97 Intake & Output 04/07/18 04/08/18 04/08/18 18:59 06:59 18:59 Intake Total 1100 / 1100 1670 / 1670 Output Total 751 / 751 Balance 1100 / 1100 919 / 919 Intake: IV 150 / 150 550 / 550 Avycaz Inj 2.5 GM In NS Inj 50 150 / 150 50 / 50 ML @ 25 mls/hr IV.SIG Q8H [facility] Rx#:[id number] Vancomycin Inj 1,000 MG In NS 500 / 500 Inj 250 ML @ 250 mls/hr IV.SIG Q24H [facility] Rx#:[id number] Tube Feeding 500 / 500 1000 / 1000 Tube Irrigant 0 / 0 Water Bolus Amount 100 / 100 120 / 120 Other 350 / 350 Output: Urine 500 / 500 Stool 1 / 1 Gastric Drainage 250 / 250 G Tube 250 / 250 Other: Other Intake Source Saline Solution # Voids 3 1 Date of Last Bowel Movement 04/07/18 04/08/18 # Bowel Movements 3 - Urinary Catheter Management Female External Cath placed during this visit: no Indwelling Urethral Catheter Cath placed during this visit: yes, but has since been removed by the nurse Reason for continuing: Hourly intake/output Insertion date: 03/06/18 Insertion time: 18:00 Removal date: 03/10/18 Removal time: 17:00 Results - Labs CBC & Chem 7: 04/06/18 07:47 04/06/18 07:47 Assessment and Plan - Assessment (1) Acute adjustment disorder with depressed mood Code(s): F43.21 - Adjustment disorder with depressed mood Status: Acute (2) Dysphasia Code(s): R47.02 - Dysphasia Status: Acute (3) Respiratory failure Code(s): J96.90 - Respiratory failure, unspecified, unspecified whether with hypoxia or hypercapnia Status: Acute (4) Protein-calorie malnutrition, severe Code(s): E43 - Unspecified severe protein-calorie malnutrition Status: Chronic (5) Laryngeal squamous cell carcinoma Code(s): C32.9 - Malignant neoplasm of larynx, unspecified Status: Acute (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 She has already been treated for pneumonia as well as a MRSA/ Caitlyn tropicalis UTI with multiple antibiotics. Abdominal wound - healing - at this time is growing MRSA and multidrug resistant Pseudomonas. -Infectious disease following. Patient started on Avicaz and IV Vancomycin X7 days (04/04-), BMP stable Chronic respiratory failure currently stable on trach with pulmonology following. 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 GI was notified and patient underwent EGD showing radiation telangiectasias in the proximal esophagus, esophageal stricture, inflammatory distal esophageal polyp, normal G-tube placement, and no evidence of blood anywhere in the upper GIT -Transfused 1 unit packed red blood cell March 30, 2018 - not a candidate for chemotx -Follow-up H&H every few days, Hgb stable at 9.2 on 04/06 Thrombocytopenia, Myelodysplasia - No signs of active bleeding -hematology following; s/p BM biopsy March 31, 2018 showed myelodysplasia but not a candidate for chemotherapy. Failure to thrive, protein energy malnutrition - Patient with severe pharyngeal dysphagia, esophageal stricture - G/J tube in place flush with 60 cc free water every 8 hours and Vital 1.5 at 55/hr per nutrition recs . Continue tube feeding. Hypothyroidism - Continue home Levothyroxine Adjustment disorder with depression - Continue Lexapro -Continue Wellbutrin 75 mg BID Coccygeal wound - Wound care following, noted new skin tear to left buttock on 03/25 - Calazime BID and PRN for skin tear - Ultrasorb underpad for moisture - Strict Q2H turns from left to right sides only with limited time spent on back for therapies only - Apply OptiForm adhesive to coccyx wound Q3D and PRN for soiling or dislodgement. GERD, h/o Barretts - Continue PPI DVT of the right lower extremities - Repeat Doppler did not reveal any significant changes. - continue subq Lovenox -hematology following. LOose stools - C diff negative. will DC colace and Miralax Discharge Planning: Hospice has been offered, as she is a candidate, however her son wishes to proceed with rehab. Need SNF placement. Case management following. (3) Respiratory failure Qualifiers: Chronicity: acute Respiratory failure complication: hypoxia Qualified Code(s ): J96.01 - Acute respiratory failure with hypoxia
--- NOTE | 2018-04-08 18:43 | P.PN ---
Subjective Interval history: Alert and on a T Collar. FIO2 at 30%. No change overall. Physical Exam Vital signs: Vital Signs 04/07/18 20:00 04/07/18 20:35 04/08/18 00:00 Temperature 97.7 F 98.5 F Pulse Rate 61 61 Respiratory Rate 20 20 Blood Pressure 146/68 H 119/57 L Pulse Oximetry 97 96 99 04/08/18 01:16 04/08/18 04:00 04/08/18 07:42 Temperature 97.0 F L Pulse Rate 58 L Respiratory Rate 20 Blood Pressure 111/54 L Pulse Oximetry 99 97 04/08/18 08:00 04/08/18 11:54 04/08/18 12:00 Temperature 98.7 F 97.1 F L Pulse Rate 89 68 Respiratory Rate 16 12 14 Blood Pressure 124/82 124/56 L Pulse Oximetry 98 99 04/08/18 15:14 04/08/18 16:00 04/08/18 16:53 Temperature 97.5 F L Pulse Rate 62 Respiratory Rate 14 12 Blood Pressure 108/51 L Pulse Oximetry 99 97 Intake & Output 04/07/18 04/08/18 04/08/18 18:59 06:59 18:59 Intake Total 1100 / 1100 1670 / 1670 1010 / 1010 Output Total 851 / 851 Balance 1100 / 1100 819 / 819 1010 / 1010 Weight 66.8 kg Intake: IV 150 / 150 550 / 550 50 / 50 Avycaz Inj 2.5 GM In NS Inj 50 150 / 150 50 / 50 50 / 50 ML @ 25 mls/hr IV.SIG Q8H [facility] Rx#:[id number] Vancomycin Inj 1,000 MG In NS 500 / 500 Inj 250 ML @ 250 mls/hr IV.SIG Q24H [facility] Rx#:[id number] Tube Feeding 500 / 500 1000 / 1000 660 / 660 Tube Irrigant 0 / 0 0 / 0 Water Bolus Amount 100 / 100 120 / 120 100 / 100 Other 350 / 350 200 / 200 Output: Urine 500 / 500 Stool 1 / 1 Gastric Drainage 350 / 350 G Tube 350 / 350 Other: Other Intake Source Saline Solution Saline Solution # Voids 3 1 2 Date of Last Bowel Movement 04/07/18 04/08/18 04/08/18 # Bowel Movements 3 Narrative: Elderly W/F awake and alert, moving all extremities. HEENT , unremarkable. regular rhythm without murmurs, gallops, or rubs. Neck: Trach in place with mild secretions . Chest : Breath sounds equal and clear to auscultation bilaterally. GASTROINTESTINAL: Abdomen soft, non-tender, non-distended. PEG tube in place. normal active bowel sounds MUSCULOSKELETAL: Extremities without cyanosis, or edema. NEURO: Alert & Oriented x 2. Moves all ext x4 - Urinary Catheter Management Female External Cath placed during this visit: no Indwelling Urethral Catheter Cath placed during this visit: yes, but has since been removed by the nurse Reason for continuing: Hourly intake/output Insertion date: 03/06/18 Insertion time: 18:00 Removal date: 03/10/18 Removal time: 17:00 Results - Labs CBC & Chem 7: 04/06/18 07:47 04/06/18 07:47 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 - Malignant neoplasm of larynx, unspecified Status: Acute (3) Supraglottic stenosis Code(s): J38.6 - Stenosis of larynx Status: Acute (4) Status post radiation therapy Code(s): Z92.3 - Personal history of irradiation Status: Acute (5) Barretts esophagus Code(s): K22.70 - Rendon's esophagus without dysplasia Status: Acute (6) Dyspnea Code(s): R06.00 - Dyspnea, unspecified Status: Acute (7) Aspiration pneumonia Code(s): J69.0 - Pneumonitis due to inhalation of food and vomit Status: Acute (8) Aspiration into airway Code(s): T17.908A - Unspecified foreign body in respiratory tract, part unspecified causing other injury, initial encounter Status: Acute (9) DVT (deep venous thrombosis) Code(s): I82.409 - Acute embolism and thrombosis of unspecified deep veins of unspecified lower extremity Status: Acute (10) Myelodysplasia (myelodysplastic syndrome) Code(s): D46.9 - Myelodysplastic syndrome, unspecified Status: Acute - Plan 1. Cont on T Collar 30 % FIO2 all the time. 2. Trach care and lavage PRN. 3. Continue Duo nebs q6h 4. PT evaluation to help activity 5. Trach to be changed to fenestrated shiley # 8. 6. Cont levsin .125 mg TID S/L PRN 7. Tube feeds at 60 CC. 8. CXR on Saturday 9. Will use PM valve to talk (7) Aspiration pneumonia Qualifiers: Aspiration pneumonia type: unspecified Laterality: unspecified laterality Lung location: unspecified part of lung Qualified Code(s): J69.0 - Pneumonitis due to inhalation of food and vomit
[2018-04-08] MEDS ORDERED: LORazepam 0.5 MG Tablet G-TUBE ONE (23:39)
[2018-04-09] MEDS: Pantoprazole Inj 40 MG Vial IV.PUSH SCH ×2 (03:02→14:00)
[2018-04-09] MEDS: Glycopyrrolate 0.2 MG/ML Vial IV.PUSH PRN (03:48)
[2018-04-09 04:00] LABS: ABG Base Excess 1.8 mmol/L (-2-2); ABG PCO2 20 mmHg (38-42); ABG PO2 70 mmHG (61-120)
[2018-04-09] MEDS: Levothyroxine 100 MCG Tablet NG/OG SCH (06:00)
[2018-04-09] MEDS: Vancomycin Inj 1,000 MG in Sodium Chlor 0.9% Inj 250 ML IV.SIG SCH (06:00)
[2018-04-09] MEDS: Ceftazidime/Avibactam Inj 2.5 GM in Sodium Chlor 0.9% Inj 50 ML IV.SIG SCH ×3 (06:02→21:00)
--- NOTE | 2018-04-09 07:15 | XR ---
EXAM DATE: 04/09/2018 7:10 AM EDT AGE/SEX: 73 years / Female INDICATIONS: Short of breath. CLINICAL DATA: This is the patient's subsequent encounter. Patient reports that signs and symptoms h ave been present for 1 month and indicates a pain score of Nonresponsive. MEDICAL/SURGICAL HISTORY: . Laryngeal ca, milan's esophagus, pneumonia, sepsis. . Appendect chela. Hernia repair, tracheostomy. COMPARISON: C, CHEST 1V SINGLE AP, 04/07/2018. . FINDINGS: There is some vascular indistinctness and mild basilar airspace. Probable trace pleural fluid. Heart size upper limits normal. Tortuous aorta. Tracheostomy unchanged. CONCLUSION: Mild edema pattern with mild basilar airspace disease. Electronically signed by: Alireza Leger MD 04/09/2018 7:13 AM EDT
--- NOTE | 2018-04-09 09:40 | P.PNIM ---
Subjective Interval history: Diarrhea remains. Odor and consistency matches C. difficile, though C. difficile testing is negative. Patient is nonverbal. Physical Exam Vital signs: Vital Signs 04/08/18 11:54 04/08/18 12:00 04/08/18 15:14 Temperature 97.1 F L Pulse Rate 68 Respiratory Rate 12 14 14 Blood Pressure 124/56 L Pulse Oximetry 99 04/08/18 16:00 04/08/18 16:53 04/08/18 19:57 Temperature 97.5 F L 99.2 F Pulse Rate 62 62 Respiratory Rate 12 22 Blood Pressure 108/51 L 144/64 H Pulse Oximetry 99 97 99 04/08/18 21:22 04/09/18 00:00 04/09/18 03:26 Temperature 97.8 F Pulse Rate 87 71 Respiratory Rate 24 48 H Blood Pressure 140/64 Pulse Oximetry 95 97 99 04/09/18 04:00 04/09/18 08:00 04/09/18 09:17 Temperature 99.4 F 98.5 F Pulse Rate 88 67 Respiratory Rate 22 16 14 Blood Pressure 118/57 L 132/88 Pulse Oximetry 96 99 04/09/18 09:29 Temperature Pulse Rate Respiratory Rate Blood Pressure Pulse Oximetry 98 Intake & Output 04/08/18 04/09/18 04/09/18 18:59 06:59 18:59 Intake Total 1060 / 1060 290 / 290 Balance 1060 / 1060 290 / 290 Weight 66.8 kg Intake: IV 100 / 100 50 / 50 Avycaz Inj 2.5 GM In NS Inj 50 100 / 100 50 / 50 ML @ 25 mls/hr IV.SIG Q8H [facility] Rx#:[id number] Oral 240 / 240 Tube Feeding 660 / 660 Tube Irrigant 0 / 0 Water Bolus Amount 100 / 100 Other 200 / 200 Other: Other Intake Source Saline Solution # Voids 2 3 Date of Last Bowel Movement 04/08/18 04/09/18 04/08/18 # Bowel Movements 3 Narrative: GENERAL: NAD, A&Ox0, nonverbal HEAD: Normocephalic. NECK: Supple, trachea midline. No lymphadenopathy. Tracheostomy present. EYES: No scleral icterus. No injection or drainage. CARDIOVASCULAR: Regular rate and rhythm without murmurs, gallops, or rubs. RESPIRATORY: Breath sounds equal bilaterally. No accessory muscle use. GASTROINTESTINAL: Abdomen soft, non-tender, nondistended. No erythema at tube feed site. MUSCULOSKELETAL: No cyanosis, or edema. SKIN: Warm and dry. NEURO: Global neurological deficits. - Urinary Catheter Management Female External Cath placed during this visit: no Indwelling Urethral Catheter Cath placed during this visit: yes, but has since been removed by the nurse Reason for continuing: Hourly intake/output Insertion date: 03/06/18 Insertion time: 18:00 Removal date: 03/10/18 Removal time: 17:00 Results - Labs CBC & Chem 7: 04/06/18 07:47 04/06/18 07:47 Laboratory Results - last 24 hr 04/09/18 03:45 Puncture Site Right radial Patient Temperature 98.6 O2 Saturation 95 ABG pH 7.66 H* ABG pCO2 20 L* ABG pO2 70 ABG HCO3 23 ABG O2 Content 13.2 ABG Base Excess 1.8 ABG Methemoglobin 1.3 Terrell Test Present Hemoglobin 9.9 L Carboxyhemoglobin 0.7 O2 Delivery Device T-piece Inspired O2 28 Critical Value Yes - Imaging Impressions Chest X-Ray 04/09/18 00:00 CONCLUSION: Mild edema pattern with mild basilar airspace disease. Assessment and Plan - Assessment (1) Acute adjustment disorder with depressed mood Code(s): F43.21 - Adjustment disorder with depressed mood Status: Acute (2) Dysphasia Code(s): R47.02 - Dysphasia Status: Acute (3) Respiratory failure Code(s): J96.90 - Respiratory failure, unspecified, unspecified whether with hypoxia or hypercapnia Status: Acute (4) Protein-calorie malnutrition, severe Code(s): E43 - Unspecified severe protein-calorie malnutrition Status: Chronic (5) Laryngeal squamous cell carcinoma Code(s): C32.9 - Malignant neoplasm of larynx, unspecified Status: Acute (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 She has already been treated for pneumonia as well as a MRSA/ Caitlyn tropicalis UTI with multiple antibiotics. Diarrhea Risk of C. Diff PEG Vancomycin initiated Follow diarrhea for improvement Colace and MiraLAX have been discontinued Probiotics Abdominal wound healing ID following Continue IV vancomycin Continue Avicaz Chronic respiratory failure Continue tracheostomy care Continue bronchodilators as needed Anemia Thrombocytopenia Myelodysplasia Monitor CBC at intervals Failure to thrive protein energy malnutrition Continue tube feeds Hypothyroidism Continue levothyroxine History of adjustment disorder with depression Continue Lexapro Continue Wellbutrin Coccygeal wound Continue wound care Position changes every 2 hours Continue Calazime BID and PRN for skin tear Continue Ultrasorb underpad for moisture Continue OptiForm adhesive to coccyx wound Q3D and PRN for soiling or dislodgement. GERD h/o Barretts Continue PPI DVT of the right lower extremities DVT prophylaxis Continue subq Lovenox hematology following. (3) Respiratory failure Qualifiers: Chronicity: acute Respiratory failure complication: hypoxia Qualified Code(s ): J96.01 - Acute respiratory failure with hypoxia
[2018-04-09] MEDS: buPROPion 75 MG Tablet NG/OG SCH ×2 (10:12→20:41)
[2018-04-09] MEDS: Enoxaparin Inj 80 MG/0.8 ML Syringe SQ SCH ×2 (10:12→20:41)
[2018-04-09] MEDS: Potassium Chloride 25 MEQ Effervescent Tablet J-TUBE SCH (10:12)
[2018-04-09] MEDS: Ascorbic Acid 500 MG Tablet G-TUBE SCH ×2 (10:14→20:41)
--- NOTE | 2018-04-09 18:03 | P.PN ---
Subjective Interval history: Has loose stools . On T collar at [address] On Tube feeds with PEG. Good output Physical Exam Vital signs: Vital Signs 04/08/18 19:57 04/08/18 21:22 04/09/18 00:00 Temperature 99.2 F 97.8 F Pulse Rate 62 87 Respiratory Rate 22 24 Blood Pressure 144/64 H 140/64 Pulse Oximetry 99 95 97 04/09/18 03:26 04/09/18 04:00 04/09/18 08:00 Temperature 99.4 F 98.5 F Pulse Rate 71 88 67 Respiratory Rate 48 H 22 16 Blood Pressure 118/57 L 132/88 Pulse Oximetry 99 96 99 04/09/18 09:17 04/09/18 09:29 04/09/18 12:00 Temperature 97.6 F Pulse Rate 92 H Respiratory Rate 14 14 Blood Pressure 114/55 L Pulse Oximetry 98 98 04/09/18 14:56 04/09/18 16:00 Temperature 98.8 F Pulse Rate 79 Respiratory Rate 16 18 Blood Pressure 124/78 Pulse Oximetry 98 Intake & Output 04/08/18 04/09/18 04/09/18 18:59 06:59 18:59 Intake Total 1060 / 1060 290 / 290 1110 / 1110 Balance 1060 / 1060 290 / 290 1110 / 1110 Weight 66.8 kg Intake: IV 100 / 100 50 / 50 50 / 50 Avycaz Inj 2.5 GM In NS Inj 50 100 / 100 50 / 50 50 / 50 ML @ 25 mls/hr IV.SIG Q8H [facility] Rx#:[id number] Oral 240 / 240 Tube Feeding 660 / 660 660 / 660 Tube Irrigant 0 / 0 0 / 0 Water Bolus Amount 100 / 100 200 / 200 Other 200 / 200 200 / 200 Other: Other Intake Source Saline Solution Saline Solution # Voids 2 3 1 Date of Last Bowel Movement 04/08/18 04/09/18 04/08/18 # Bowel Movements 3 Narrative: GENERAL: Elderly thin W/F awake but seems depressed HEAD: Normocephalic. NECK: Supple, trachea midline. No lymphadenopathy. Tracheostomy present. EYES: No scleral icterus. No injection or drainage. CARDIOVASCULAR: Regular rate and rhythm without murmurs, gallops, or rubs. RESPIRATORY: Breath sounds equal bilaterally.Few basal crackles. No accessory muscle use. GASTROINTESTINAL: Abdomen soft, non-tender, nondistended. No erythema at tube feed site. MUSCULOSKELETAL: No cyanosis, or edema. SKIN: Warm and dry. NEURO: Awake and responds. - Urinary Catheter Management Female External Cath placed during this visit: no Indwelling Urethral Catheter Cath placed during this visit: yes, but has since been removed by the nurse Reason for continuing: Hourly intake/output Insertion date: 03/06/18 Insertion time: 18:00 Removal date: 03/10/18 Removal time: 17:00 Results - Labs CBC & Chem 7: 04/06/18 07:47 04/06/18 07:47 Laboratory Results - last 24 hr 04/09/18 03:45 Puncture Site Right radial Patient Temperature 98.6 O2 Saturation 95 ABG pH 7.66 H* ABG pCO2 20 L* ABG pO2 70 ABG HCO3 23 ABG O2 Content 13.2 ABG Base Excess 1.8 ABG Methemoglobin 1.3 Terrell Test Present Hemoglobin 9.9 L Carboxyhemoglobin 0.7 O2 Delivery Device T-piece Inspired O2 28 Critical Value Yes - Imaging Impressions Chest X-Ray 04/09/18 00:00 CONCLUSION: Mild edema pattern with mild basilar airspace disease. 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 - Malignant neoplasm of larynx, unspecified Status: Acute (3) Supraglottic stenosis Code(s): J38.6 - Stenosis of larynx Status: Acute (4) Status post radiation therapy Code(s): Z92.3 - Personal history of irradiation Status: Acute (5) Barretts esophagus Code(s): K22.70 - Rendon's esophagus without dysplasia Status: Acute (6) Dyspnea Code(s): R06.00 - Dyspnea, unspecified Status: Acute (7) Aspiration pneumonia Code(s): J69.0 - Pneumonitis due to inhalation of food and vomit Status: Acute (8) Aspiration into airway Code(s): T17.908A - Unspecified foreign body in respiratory tract, part unspecified causing other injury, initial encounter Status: Acute (9) DVT (deep venous thrombosis) Code(s): I82.409 - Acute embolism and thrombosis of unspecified deep veins of unspecified lower extremity Status: Acute (10) Myelodysplasia (myelodysplastic syndrome) Code(s): D46.9 - Myelodysplastic syndrome, unspecified Status: Acute - Plan 1. Cont on T Collar 30 % FIO2 all the time. 2. Trach care and lavage PRN. 3. Continue Duo nebs q6h 4. PT evaluation to help activity 5. CBC,BMP in am 6. Cont levsin .125 mg TID S/L PRN 7. Tube feeds at 60 CC. 8. CXR on Saturday 9. Will use PM valve to talk (7) Aspiration pneumonia Qualifiers: Aspiration pneumonia type: unspecified Laterality: unspecified laterality Lung location: unspecified part of lung Qualified Code(s): J69.0 - Pneumonitis due to inhalation of food and vomit
[2018-04-10] MEDS: Pantoprazole Inj 40 MG Vial IV.PUSH SCH ×2 (01:30→13:05)
[2018-04-10] MEDS: Vancomycin Inj 1,000 MG in Sodium Chlor 0.9% Inj 250 ML IV.SIG SCH (04:10)
[2018-04-10] MEDS: Ceftazidime/Avibactam Inj 2.5 GM in Sodium Chlor 0.9% Inj 50 ML IV.SIG SCH ×3 (06:16→21:37)
[2018-04-10] MEDS: Levothyroxine 100 MCG Tablet NG/OG SCH (06:16)
[2018-04-10 07:36] LABS: Calcium 8.1 mg/dL (8.5-10.1); Carbon Dioxide 26.5 meq/L (21.0-32.0); Potassium 4.3 meq/L (3.5-5.1)
[2018-04-10] MEDS: Enoxaparin Inj 80 MG/0.8 ML Syringe SQ SCH ×2 (08:41→21:36)
[2018-04-10] MEDS: Potassium Chloride 25 MEQ Effervescent Tablet J-TUBE SCH (08:42)
[2018-04-10] MEDS: Glycopyrrolate 0.2 MG/ML Vial IV.PUSH PRN (08:42)
[2018-04-10] MEDS: Ascorbic Acid 500 MG Tablet G-TUBE SCH ×2 (08:42→21:38)
[2018-04-10] MEDS: buPROPion 75 MG Tablet NG/OG SCH ×2 (08:44→21:38)
--- NOTE | 2018-04-10 09:10 | P.PNIM ---
Subjective Interval history: Patient is awake and oriented when seen today. She remains nonverbal due to tracheostomy. No complaints. Diarrhea is thus far unimproved. Physical Exam Vital signs: Vital Signs 04/09/18 09:17 04/09/18 09:29 04/09/18 12:00 Temperature 97.6 F Pulse Rate 92 H Respiratory Rate 14 14 Blood Pressure 114/55 L Pulse Oximetry 98 98 04/09/18 14:56 04/09/18 16:00 04/09/18 20:00 Temperature 98.8 F 99 F Pulse Rate 79 59 L Respiratory Rate 16 18 20 Blood Pressure 124/78 114/53 L Pulse Oximetry 98 98 04/10/18 00:00 04/10/18 04:00 04/10/18 07:41 Temperature 96.9 F L 98.8 F Pulse Rate 62 64 Respiratory Rate 20 20 16 Blood Pressure 128/62 121/60 Pulse Oximetry 99 98 Intake & Output 04/09/18 04/10/18 04/10/18 18:59 06:59 18:59 Intake Total 1410 / 1410 1310 / 1310 Output Total 850 / 850 Balance 1410 / 1410 460 / 460 Weight 66.6 kg Intake: IV 350 / 350 50 / 50 Avycaz Inj 2.5 GM In NS Inj 50 100 / 100 50 / 50 ML @ 25 mls/hr IV.SIG Q8H [facility] Rx#:[id number] Vancomycin Inj 1,000 MG In NS 250 / 250 Inj 250 ML @ 250 mls/hr IV.SIG Q24H [facility] Rx#:[id number] Tube Feeding 660 / 660 660 / 660 Tube Irrigant 0 / 0 0 / 0 Water Bolus Amount 200 / 200 600 / 600 Other 200 / 200 Output: Urine 600 / 600 Emesis 0 / 0 Gastric Drainage 250 / 250 G Tube 250 / 250 Other: Other Intake Source Saline Solution # Voids 1 # Incontinent Voids 2 Date of Last Bowel Movement 04/08/18 04/08/18 04/08/18 # Incontinent Bowel Movements 1 Narrative: GENERAL: NAD, A&Ox3, nonverbal HEAD: Normocephalic. NECK: Supple, trachea midline. No lymphadenopathy. Tracheostomy present. EYES: No scleral icterus. No injection or drainage. CARDIOVASCULAR: Regular rate and rhythm without murmurs, gallops, or rubs. RESPIRATORY: Breath sounds equal bilaterally. No accessory muscle use. GASTROINTESTINAL: Abdomen soft, non-tender, nondistended. No erythema at tube feed site. MUSCULOSKELETAL: No cyanosis, or edema. SKIN: Warm and dry. NEURO: Global neurological deficits. - Urinary Catheter Management Female External Cath placed during this visit: no Indwelling Urethral Catheter Cath placed during this visit: yes, but has since been removed by the nurse Reason for continuing: Hourly intake/output Insertion date: 03/06/18 Insertion time: 18:00 Removal date: 03/10/18 Removal time: 17:00 Results - Labs CBC & Chem 7: 04/06/18 07:47 04/10/18 06:41 Laboratory Results - last 24 hr 04/10/18 06:41 Sodium 139 Potassium 4.3 Chloride 103 Carbon Dioxide 26.5 Anion Gap 10 BUN 27 H Creatinine 1.05 H Estimated GFR 52 L Random Glucose 113 H Calcium 8.1 L Assessment and Plan - Assessment (1) Acute adjustment disorder with depressed mood Code(s): F43.21 - Adjustment disorder with depressed mood Status: Acute (2) Dysphasia Code(s): R47.02 - Dysphasia Status: Acute (3) Respiratory failure Code(s): J96.90 - Respiratory failure, unspecified, unspecified whether with hypoxia or hypercapnia Status: Acute (4) Protein-calorie malnutrition, severe Code(s): E43 - Unspecified severe protein-calorie malnutrition Status: Chronic (5) Laryngeal squamous cell carcinoma Code(s): C32.9 - Malignant neoplasm of larynx, unspecified Status: Acute (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 She has already been treated for pneumonia as well as a MRSA/ Caitlyn tropicalis UTI with multiple antibiotics. No significant change compared to prior day. Diarrhea remains. Patient's lethargy is improved today. She is nonverbal but understands communication. Diarrhea Risk of C. Diff PEG Vancomycin initiated Follow diarrhea for improvement Colace and MiraLAX have been discontinued Probiotics Abdominal wound healing ID following Continue IV vancomycin Continue Avicaz Chronic respiratory failure Continue tracheostomy care Continue bronchodilators as needed Anemia Thrombocytopenia Myelodysplasia Monitor CBC at intervals Failure to thrive protein energy malnutrition Continue tube feeds Hypothyroidism Continue levothyroxine History of adjustment disorder with depression Continue Lexapro Continue Wellbutrin Coccygeal wound Continue wound care Position changes every 2 hours Continue Calazime BID and PRN for skin tear Continue Ultrasorb underpad for moisture Continue OptiForm adhesive to coccyx wound Q3D and PRN for soiling or dislodgement. GERD h/o Barretts Continue PPI DVT of the right lower extremities DVT prophylaxis Continue subq Lovenox hematology following. (3) Respiratory failure Qualifiers: Chronicity: acute Respiratory failure complication: hypoxia Qualified Code(s ): J96.01 - Acute respiratory failure with hypoxia
--- NOTE | 2018-04-10 19:01 | P.PN ---
Subjective Interval history: Stable and awake and on a T Collar at 30 %. No bleeding today O2 sats 97 Able to walk with walker. Physical Exam Vital signs: Vital Signs 04/09/18 20:00 04/10/18 00:00 04/10/18 04:00 Temperature 99 F 96.9 F L 98.8 F Pulse Rate 59 L 62 64 Respiratory Rate 20 20 20 Blood Pressure 114/53 L 128/62 121/60 Pulse Oximetry 98 99 98 04/10/18 07:41 04/10/18 08:00 04/10/18 12:00 Temperature 99.2 F 98.5 F Pulse Rate 60 71 Respiratory Rate 16 24 15 Blood Pressure 107/51 L 128/67 Pulse Oximetry 97 98 04/10/18 15:41 04/10/18 15:45 04/10/18 17:35 Temperature 98.9 F Pulse Rate 70 Respiratory Rate 16 18 22 Blood Pressure 119/56 L Pulse Oximetry 98 Intake & Output 04/09/18 04/10/18 04/10/18 18:59 06:59 18:59 Intake Total 1410 / 1410 1310 / 1310 250 / 250 Output Total 850 / 850 Balance 1410 / 1410 460 / 460 250 / 250 Weight 66.6 kg Intake: IV 350 / 350 50 / 50 50 / 50 Avycaz Inj 2.5 GM In NS Inj 50 100 / 100 50 / 50 50 / 50 ML @ 25 mls/hr IV.SIG Q8H [facility] Rx#:[id number] Vancomycin Inj 1,000 MG In NS 250 / 250 Inj 250 ML @ 250 mls/hr IV.SIG Q24H [facility] Rx#:[id number] Tube Feeding 660 / 660 660 / 660 Tube Irrigant 0 / 0 0 / 0 Water Bolus Amount 200 / 200 600 / 600 Other 200 / 200 200 / 200 Output: Urine 600 / 600 Emesis 0 / 0 Gastric Drainage 250 / 250 G Tube 250 / 250 Other: Other Intake Source Saline Solution Saline Solution # Voids 1 # Incontinent Voids 2 3 Date of Last Bowel Movement 04/08/18 04/08/18 04/08/18 # Incontinent Bowel Movements 1 Narrative: GENERAL:Elderly w/F alert and responds to questions. HEAD: Normocephalic. NECK: Supple, trachea midline. No lymphadenopathy. Tracheostomy present. EYES: No scleral icterus. No injection or drainage. CARDIOVASCULAR: Regular rate and rhythm without murmurs, gallops, or rubs. RESPIRATORY: Breath sounds equal bilaterally.Occ wheeze heard. No accessory muscle use. GASTROINTESTINAL: Abdomen soft, non-tender, nondistended. No erythema at tube feed site. MUSCULOSKELETAL: No cyanosis, or edema. SKIN: Warm and dry. NEURO: Global neurological deficits. - Urinary Catheter Management Female External Cath placed during this visit: no Indwelling Urethral Catheter Cath placed during this visit: yes, but has since been removed by the nurse Reason for continuing: Hourly intake/output Insertion date: 03/06/18 Insertion time: 18:00 Removal date: 03/10/18 Removal time: 17:00 Results - Labs CBC & Chem 7: 04/06/18 07:47 04/10/18 06:41 Laboratory Results - last 24 hr 04/10/18 06:41 Sodium 139 Potassium 4.3 Chloride 103 Carbon Dioxide 26.5 Anion Gap 10 BUN 27 H Creatinine 1.05 H Estimated GFR 52 L Random Glucose 113 H Calcium 8.1 L 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 - Malignant neoplasm of larynx, unspecified Status: Acute (3) Supraglottic stenosis Code(s): J38.6 - Stenosis of larynx Status: Acute (4) Status post radiation therapy Code(s): Z92.3 - Personal history of irradiation Status: Acute (5) Barretts esophagus Code(s): K22.70 - Rendon's esophagus without dysplasia Status: Acute (6) Dyspnea Code(s): R06.00 - Dyspnea, unspecified Status: Acute (7) Aspiration pneumonia Code(s): J69.0 - Pneumonitis due to inhalation of food and vomit Status: Acute (8) Aspiration into airway Code(s): T17.908A - Unspecified foreign body in respiratory tract, part unspecified causing other injury, initial encounter Status: Acute (9) DVT (deep venous thrombosis) Code(s): I82.409 - Acute embolism and thrombosis of unspecified deep veins of unspecified lower extremity Status: Acute (10) Myelodysplasia (myelodysplastic syndrome) Code(s): D46.9 - Myelodysplastic syndrome, unspecified Status: Acute - Plan 1. Cont on T Collar 30 % FIO2 all the time. 2. Cont Trach care and lavage PRN. 3. Continue Duo nebs q6h 4. PT to help with activity 5. Will go to Rehab facility next week 6. Cont levsin .125 mg TID S/L PRN 7. Tube feeds at 60 CC. (7) Aspiration pneumonia Qualifiers: Aspiration pneumonia type: unspecified Laterality: unspecified laterality Lung location: unspecified part of lung Qualified Code(s): J69.0 - Pneumonitis due to inhalation of food and vomit
[2018-04-11] MEDS: Pantoprazole Inj 40 MG Vial IV.PUSH SCH ×2 (01:11→13:30)
[2018-04-11] MEDS: Vancomycin Inj 1,000 MG in Sodium Chlor 0.9% Inj 250 ML IV.SIG SCH (04:24)
[2018-04-11] MEDS: Ceftazidime/Avibactam Inj 2.5 GM in Sodium Chlor 0.9% Inj 50 ML IV.SIG SCH (05:00)
[2018-04-11] MEDS: Levothyroxine 100 MCG Tablet NG/OG SCH (05:01)
[2018-04-11] MEDS ORDERED: Acetaminophen 325 MG Tablet G-TUBE PRN (09:15)
--- NOTE | 2018-04-11 09:29 | P.PNIM ---
Subjective Interval history: No acute changes overnight. Patient resting comfortably without acute distress. She is nonverbal. No episodes of diarrhea for about 24 hours now. Physical Exam Vital signs: Vital Signs 04/10/18 12:00 04/10/18 15:41 04/10/18 15:45 Temperature 98.5 F 98.9 F Pulse Rate 71 70 Respiratory Rate 15 16 18 Blood Pressure 128/67 119/56 L Pulse Oximetry 98 98 04/10/18 17:35 04/10/18 20:00 04/10/18 20:02 Temperature 98.5 F Pulse Rate 81 Respiratory Rate 22 18 Blood Pressure 119/56 L Pulse Oximetry 99 98 04/11/18 00:00 04/11/18 04:00 04/11/18 08:00 Temperature 98.7 F 98.5 F 98.4 F Pulse Rate 74 76 67 Respiratory Rate 20 18 20 Blood Pressure 104/60 110/62 101/53 L Pulse Oximetry 98 98 Intake & Output 04/10/18 04/11/18 04/11/18 18:59 06:59 18:59 Intake Total 300 / 300 1873 / 1873 Output Total 700 / 700 Balance 300 / 300 1173 / 1173 Weight 65.9 kg Intake: IV 100 / 100 550 / 550 Avycaz Inj 2.5 GM In NS Inj 50 100 / 100 50 / 50 ML @ 25 mls/hr IV.SIG Q8H [facility] Rx#:[id number] Vancomycin Inj 1,000 MG In NS 500 / 500 Inj 250 ML @ 250 mls/hr IV.SIG Q24H [facility] Rx#:[id number] Oral 60 / 60 Tube Feeding 693 / 693 Tube Irrigant 0 / 0 Water Bolus Amount 120 / 120 Other 200 / 200 450 / 450 Output: Urine 450 / 450 Emesis 0 / 0 Gastric Drainage 250 / 250 G Tube 250 / 250 J Tube 0 / 0 Other: Other Intake Source Saline Solution Saline Solution # Voids 1 # Incontinent Voids 3 Date of Last Bowel Movement 04/08/18 04/08/18 Narrative: GENERAL:Elderly w/F alert and responds to questions. HEAD: Normocephalic. NECK: Supple, trachea midline. No lymphadenopathy. Tracheostomy present. EYES: No scleral icterus. No injection or drainage. CARDIOVASCULAR: Regular rate and rhythm without murmurs, gallops, or rubs. RESPIRATORY: Breath sounds equal bilaterally.Occ wheeze heard. No accessory muscle use. GASTROINTESTINAL: Abdomen soft, non-tender, nondistended. No erythema at tube feed site. MUSCULOSKELETAL: No cyanosis, or edema. SKIN: Warm and dry. NEURO: Global neurological deficits. - Urinary Catheter Management Female External Cath placed during this visit: no Indwelling Urethral Catheter Cath placed during this visit: yes, but has since been removed by the nurse Reason for continuing: Hourly intake/output Insertion date: 03/06/18 Insertion time: 18:00 Removal date: 03/10/18 Removal time: 17:00 Results - Labs CBC & Chem 7: 04/06/18 07:47 04/10/18 06:41 Laboratory Results - last 24 hr 03/31/18 10:30 BM Chromosome Interp Assessment and Plan - Assessment (1) Acute adjustment disorder with depressed mood Code(s): F43.21 - Adjustment disorder with depressed mood Status: Acute (2) Dysphasia Code(s): R47.02 - Dysphasia Status: Acute (3) Respiratory failure Code(s): J96.90 - Respiratory failure, unspecified, unspecified whether with hypoxia or hypercapnia Status: Acute (4) Protein-calorie malnutrition, severe Code(s): E43 - Unspecified severe protein-calorie malnutrition Status: Chronic (5) Laryngeal squamous cell carcinoma Code(s): C32.9 - Malignant neoplasm of larynx, unspecified Status: Acute (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 She has already been treated for pneumonia as well as a MRSA/ Caitlyn tropicalis UTI with multiple antibiotics. Improvement in diarrhea overnight. Continue vancomycin via PEG. IV antibiotics have been completed and are discontinued. Diarrhea Improving Risk of C. Diff as an etiology PEG Vancomycin continued Colace and MiraLAX have been discontinued Probiotics Abdominal wound healing ID following Continue IV vancomycin Continue Avicaz Chronic respiratory failure Continue tracheostomy care Continue bronchodilators as needed Anemia Thrombocytopenia Myelodysplasia Monitor CBC at intervals Failure to thrive protein energy malnutrition Continue tube feeds Hypothyroidism Continue levothyroxine History of adjustment disorder with depression Continue Lexapro Continue Wellbutrin Coccygeal wound Continue wound care Position changes every 2 hours Continue Calazime BID and PRN for skin tear Continue Ultrasorb underpad for moisture Continue OptiForm adhesive to coccyx wound Q3D and PRN for soiling or dislodgement. GERD h/o Barretts Continue PPI DVT of the right lower extremities DVT prophylaxis Continue subq Lovenox hematology following. (3) Respiratory failure Qualifiers: Chronicity: acute Respiratory failure complication: hypoxia Qualified Code(s ): J96.01 - Acute respiratory failure with hypoxia
[2018-04-11] MEDS: Ascorbic Acid 500 MG Tablet G-TUBE SCH ×2 (10:00→21:14)
[2018-04-11] MEDS: Potassium Chloride 25 MEQ Effervescent Tablet G-TUBE SCH (10:00)
[2018-04-11] MEDS: buPROPion 75 MG Tablet NG/OG SCH ×2 (10:00→21:14)
[2018-04-11] MEDS: Lactobacillus Acidophilus/L. Spores Tablet G-TUBE SCH ×3 (10:00→18:37)
[2018-04-11] MEDS: Enoxaparin Inj 80 MG/0.8 ML Syringe SQ SCH ×2 (10:00→21:14)
[2018-04-11] MEDS: Simethicone 125 MG Chew Tablet G-TUBE PRN (10:20)
[2018-04-11] MEDS: Glycopyrrolate 0.2 MG/ML Vial IV.PUSH PRN (10:26)
--- NOTE | 2018-04-11 18:39 | P.PN ---
Subjective Interval history: She is stable and on T Collar at 30 %. Able to walk with help. Tolerates feeds. Physical Exam Vital signs: Vital Signs 04/10/18 20:00 04/10/18 20:02 04/11/18 00:00 Temperature 98.5 F 98.7 F Pulse Rate 81 74 Respiratory Rate 18 20 Blood Pressure 119/56 L 104/60 Pulse Oximetry 99 98 98 04/11/18 04:00 04/11/18 08:00 04/11/18 10:08 Temperature 98.5 F 98.4 F Pulse Rate 76 67 Respiratory Rate 18 20 Blood Pressure 110/62 101/53 L Pulse Oximetry 98 99 04/11/18 12:00 04/11/18 16:00 Temperature 98.6 F 97.8 F Pulse Rate 80 84 Respiratory Rate 18 18 Blood Pressure 112/74 98/58 L Pulse Oximetry 97 98 Intake & Output 04/10/18 04/11/18 04/11/18 18:59 06:59 18:59 Intake Total 300 / 300 1873 / 1873 910 / 910 Output Total 700 / 700 1800 / 1800 Balance 300 / 300 1173 / 1173 -890 / -890 Weight 65.9 kg Intake: IV 100 / 100 550 / 550 50 / 50 Avycaz Inj 2.5 GM In NS Inj 50 100 / 100 50 / 50 50 / 50 ML @ 25 mls/hr IV.SIG Q8H [facility] Rx#:[id number] Vancomycin Inj 1,000 MG In NS 500 / 500 Inj 250 ML @ 250 mls/hr IV.SIG Q24H [facility] Rx#:[id number] Oral 60 / 60 60 / 60 Tube Feeding 693 / 693 550 / 550 Tube Irrigant 0 / 0 Water Bolus Amount 120 / 120 250 / 250 Other 200 / 200 450 / 450 Output: Urine 450 / 450 1500 / 1500 Emesis 0 / 0 Gastric Drainage 250 / 250 300 / 300 G Tube 250 / 250 300 / 300 J Tube 0 / 0 Other: Other Intake Source Saline Solution Saline Solution # Voids 1 3 # Incontinent Voids 3 Date of Last Bowel Movement 04/08/18 04/08/18 04/11/18 # Incontinent Bowel Movements 2 Narrative: GENERAL:Elderly w/F alert and responds to questions. HEAD: Normocephalic. NECK: Supple, trachea midline. No lymphadenopathy. Tracheostomy present. EYES: No scleral icterus. No injection or drainage. CARDIOVASCULAR: Regular rate and rhythm without murmurs, gallops, or rubs. RESPIRATORY: Breath sounds equal bilaterally.Occ wheeze heard. No accessory muscle use. GASTROINTESTINAL: Abdomen soft, non-tender, nondistended. No erythema at tube feed site. MUSCULOSKELETAL: No cyanosis, or edema. Moves all. SKIN: Warm and dry. NEURO: No gross deficits. - Urinary Catheter Management Female External Cath placed during this visit: no Indwelling Urethral Catheter Cath placed during this visit: yes, but has since been removed by the nurse Reason for continuing: Hourly intake/output Insertion date: 03/06/18 Insertion time: 18:00 Removal date: 03/10/18 Removal time: 17:00 Results - Labs CBC & Chem 7: 04/06/18 07:47 04/10/18 06:41 Laboratory Results - last 24 hr 03/31/18 10:30 BM Chromosome Interp 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 - Malignant neoplasm of larynx, unspecified Status: Acute (3) Supraglottic stenosis Code(s): J38.6 - Stenosis of larynx Status: Acute (4) Status post radiation therapy Code(s): Z92.3 - Personal history of irradiation Status: Acute (5) Barretts esophagus Code(s): K22.70 - Rednon's esophagus without dysplasia Status: Acute (6) Dyspnea Code(s): R06.00 - Dyspnea, unspecified Status: Acute (7) Aspiration pneumonia Code(s): J69.0 - Pneumonitis due to inhalation of food and vomit Status: Acute (8) Aspiration into airway Code(s): T17.908A - Unspecified foreign body in respiratory tract, part unspecified causing other injury, initial encounter Status: Acute (9) DVT (deep venous thrombosis) Code(s): I82.409 - Acute embolism and thrombosis of unspecified deep veins of unspecified lower extremity Status: Acute (10) Myelodysplasia (myelodysplastic syndrome) Code(s): D46.9 - Myelodysplastic syndrome, unspecified Status: Acute - Plan 1. Cont on T Collar 30 % FIO2 all the time. 2. Cont Trach care and lavage PRN. 3. Continue Duo nebs q6h 4. will ask Surgery to change trach to a Fenestrated #8. 5. Will go to Rehab facility next week 6. Cont levsin .125 mg TID S/L PRN 7. Tube feeds at 60 CC. 8. CBC,BMP on Saturday (7) Aspiration pneumonia Qualifiers: Aspiration pneumonia type: unspecified Laterality: unspecified laterality Lung location: unspecified part of lung Qualified Code(s): J69.0 - Pneumonitis due to inhalation of food and vomit
[2018-04-12] MEDS: Pantoprazole Inj 40 MG Vial IV.PUSH SCH ×2 (03:18→14:00)
[2018-04-12] MEDS: Levothyroxine 100 MCG Tablet G-TUBE SCH (06:10)
[2018-04-12] MEDS: Potassium Chloride 25 MEQ Effervescent Tablet G-TUBE SCH (09:00)
[2018-04-12] MEDS: Enoxaparin Inj 80 MG/0.8 ML Syringe SQ SCH ×2 (09:00→21:00)
[2018-04-12] MEDS: Ascorbic Acid 500 MG Tablet G-TUBE SCH ×2 (09:00→21:00)
[2018-04-12] MEDS: buPROPion 75 MG Tablet NG/OG SCH ×2 (09:00→21:00)
[2018-04-12] MEDS: Lactobacillus Acidophilus/L. Spores Tablet G-TUBE SCH ×3 (09:00→19:11)
--- NOTE | 2018-04-12 09:15 | P.CONGS ---
HPI Gen Surgery Consult Note Consult date: 04/12/18 Reason for consult: other (trach revision) Requesting physician: Lina Sanders Narrative: 73yo female with history of head/neck SCC, s/p trach on 03/02/18 for VDRF. Patient is now in process of being discharged and needs trach changed to fenestrated trach prior to DC to rehab. 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 - Surgical History Surgical History: Surgical History (Last Reviewed 04/12/18 @ 09:07 by Cameron Humphries MD) History of colonoscopy History of oral surgery History of esophageal dilatation (Resolved) History of cholecystectomy History of esophagogastroduodenoscopy (EGD) History of hernia repair History of tonsillectomy and adenoidectomy - Family History Family History: Family History (Last Reviewed 04/07/18 @ 09:03 by Ioana Schuster) Mother Breast cancer Father Heart problem - Tobacco History Second Hand Smoke Exposure: No Smoking Status: Former smoker (Prior smoker for over 25 years) Tobacco Type: Cigarettes years: 30 - Alcohol History How Often Do You Have a Drink Containing Alcohol: Unable to Obtain - Substance Use History Substance History: No History of Abuse - Immunization History Tetanus Immunization: Unsure Hx Influenza Vaccine This Season: Unable to Assess Medications and Allergies Active Medications: Active Medications Acetaminophen (Tylenol) 650 mg G-TUBE Q4H PRN PRN Reason: FEVER > 101 F Hydrocodone Bitart/Acetaminophen ([place] 5/325) 1 tab G-TUBE Q4H PRN PRN Reason: PAIN 2-5 Hydrocodone Bitart/Acetaminophen ([place] 5/325) 2 tab G-TUBE Q4H PRN PRN Reason: PAIN 6-10 Last Admin: 04/12/18 06:10 Dose: 2 tab Al Hydroxide/Mg Hydroxide (Milk Of Magnesia Liq) 30 ml G-TUBE Q12H PRN PRN Reason: Mild Constipation Albuterol (Duoneb Neb (Prn)) 1 ampul NEB Q2HR NEB PRN PRN Reason: DYSPNEA Albuterol (Albuterol Neb (Prn)) 2.5 mg NEB Q2HR NEB PRN PRN Reason: SHORTNESS OF BREATH/WHEEZING Last Admin: 04/07/18 09:46 Dose: 2.5 mg Ascorbic Acid (Vitamin C) 500 mg G-TUBE BID [facility] Last Admin: 04/11/18 21:14 Dose: 500 mg Benzocaine (Baby Orajel 7.5% Oral Gel) 1 applic BUCCAL Q2H PRN PRN Reason: MOUTH PAIN Bisacodyl (Dulcolax Supp) 10 mg RECTAL DAILY PRN PRN Reason: SEVERE CONSITIPATION Bupropion HCl (Wellbutrin) 75 mg NG/OG BID [facility] Last Admin: 04/11/18 21:14 Dose: 75 mg Cetirizine HCl (Zyrtec) 10 mg G-TUBE HS [facility] Last Admin: 04/11/18 21:14 Dose: 10 mg Dextrose (D50w Vial) 50 ml IV.PUSH UNSCH PRN PRN Reason: PER HYPOGLYCEMIA PROTOCOL Diphenhydramine HCl (Benadryl) 25 mg G-TUBE Q4H PRN PRN Reason: SEE LABEL COMMENTS Enoxaparin Sodium (Lovenox Inj) 70 mg SQ Q12HR [facility] Last Admin: 04/11/18 21:14 Dose: 70 mg Escitalopram Oxalate (Lexapro) 20 mg G-TUBE DAILY [facility] Last Admin: 04/11/18 10:00 Dose: 20 mg Glucagon (Glucagon Inj) 1 mg OTHER PRN PRN PRN Reason: for Hypoglycemia Protocol Glycopyrrolate (Robinul Inj) 0.4 mg IV.PUSH Q8H PRN PRN Reason: thick secretions Last Admin: 04/11/18 10:26 Dose: 0.4 mg Hyoscyamine (Levsin Liq) 0.125 mg SL Q4H PRN PRN Reason: SECRETIONS Last Admin: 03/27/18 08:31 Dose: 0.125 mg Hyoscyamine (Levsin) 0.125 mg PO Q6H [facility] Last Admin: 04/12/18 06:10 Dose: 0.125 mg Lactobacillus Acidophilus (Lactinex) 1 tab G-TUBE TID [facility] Last Admin: 04/11/18 18:37 Dose: 1 tab Lactulose (Lactulose Liq) 30 ml G-TUBE DAILY PRN PRN Reason: SEVERE CONSITIPATION Levothyroxine Sodium (Synthroid) 100 mcg G-TUBE DAILY@0600 [facility] Last Admin: 04/12/18 06:10 Dose: 100 mcg Lorazepam (Ativan Inj) 1 mg IV.PUSH Q6H PRN PRN Reason: ANXIETY Multivitamins (Theragran) 1 tab G-TUBE DAILY [facility] Last Admin: 04/11/18 10:00 Dose: 1 tab Ondansetron HCl (Zofran Odt) 4 mg SL Q6H PRN PRN Reason: NAUSEA Last Admin: 03/27/18 21:41 Dose: 4 mg Pantoprazole Sodium (Protonix Inj) 40 mg IV.PUSH Q12H [facility] Last Admin: 04/12/18 03:18 Dose: 40 mg Potassium Bicarb/Potassium Chloride (K-Lyte Cl Eff) 25 meq G-TUBE DAILY [facility] Last Admin: 04/11/18 10:00 Dose: 25 meq Sennosides (Senokot) 17.2 mg G-TUBE Q12H PRN PRN Reason: Moderate Constipation Simethicone (Phazyme Chew) 125 mg G-TUBE Q4H PRN PRN Reason: RELATING TO BLOATING Last Admin: 04/11/18 10:20 Dose: 125 mg Sodium Chloride (Ns Flush) 2 ml IV.FLUSH BID [facility] Last Admin: 04/11/18 21:15 Dose: 2 ml Sodium Chloride (Ns Flush) 2 ml IV.FLUSH PRN PRN PRN Reason: FLUSH AFTER USING IV ACCESS Last Admin: 04/09/18 20:41 Dose: 2 ml Vancomycin HCl (Vancomycin Po) 500 mg G-TUBE QID [facility] Stop: 04/23/18 23:59 Last Admin: 04/11/18 21:14 Dose: 500 mg Zinc Sulfate (Zinc-220) 220 mg G-TUBE DAILY [facility] Last Admin: 04/11/18 10:00 Dose: 220 mg Allergies Allergy/AdvReac Type Severity Reaction Status Date / Time epinephrine Allergy Severe TACHYCARDIA Verified 02/21/18 08:40 penicillin G Allergy Severe Hives Verified 02/21/18 08:40 peanut Allergy Intermediate ANAPHYLAXIS Verified 02/21/18 08:40 legumes Allergy Unknown Anaphylaxis Verified 03/06/18 21:48 soy Allergy Rash Verified 03/06/18 21:45 Home Medications Medication Instructions Recorded Confirmed Type cetirizine 10 mg PO HS 02/15/18 03/06/18 History escitalopram oxalate 20 mg FEEDING TUBE DAILY 02/15/18 03/06/18 History levothyroxine 100 mcg FEEDING TUBE DAILY 02/15/18 03/06/18 History omeprazole 20 mg PO DAILY 02/15/18 03/06/18 History ascorbic acid (vitamin C) 500 mg FEEDING TUBE BID 03/06/18 03/06/18 History multivitamin [Daily Multi-Vitamin] 1 tab FEEDING TUBE DAILY 03/06/18 03/06/18 History prednisone 20 mg FEEDING TUBE DAILY 03/06/18 03/06/18 History zinc 50 mg FEEDING TUBE DAILY 03/06/18 03/06/18 History Exam Vital signs: Vital Signs 04/11/18 10:08 04/11/18 12:00 04/11/18 16:00 Temperature 98.6 F 97.8 F Pulse Rate 80 84 Respiratory Rate 18 18 Blood Pressure 112/74 98/58 L Pulse Oximetry 99 97 98 04/11/18 20:00 04/12/18 00:00 04/12/18 04:00 Temperature 98.6 F 97.2 F L 97.3 F L Pulse Rate 59 L 60 59 L Respiratory Rate 20 20 20 Blood Pressure 102/48 L 102/50 L 101/51 L Pulse Oximetry 99 100 97 Intake & Output 04/11/18 04/12/18 04/12/18 18:59 06:59 18:59 Intake Total 910 / 910 1033 / 1033 Output Total 1800 / 1800 400 / 400 Balance -890 / -890 633 / 633 Weight 70.5 kg Intake: IV 50 / 50 Avycaz Inj 2.5 GM In NS Inj 50 50 / 50 ML @ 25 mls/hr IV.SIG Q8H [facility] Rx#:[id number] Oral 60 / 60 Tube Feeding 550 / 550 733 / 733 Tube Irrigant 240 / 240 Water Bolus Amount 250 / 250 60 / 60 Output: Urine 1500 / 1500 400 / 400 Gastric Drainage 300 / 300 G Tube 300 / 300 Other: # Voids 3 1 Date of Last Bowel Movement 04/11/18 # Incontinent Bowel Movements 2 - Constitutional no acute distress - Routine HEENT Exam Head: Present: normocephalic, atraumatic Eye: Present: EOMI, PERRL, normal accommodation, conjunctival icterus ENT: Present: mucous membranes moist Comments: trach in place without any complication, healing well Results - Labs 04/06/18 07:47 04/10/18 06:41 All other labs normal. Assessment and Plan - Plan 73yo female with halfway trach, needs fenestrated prior to discharge to rehab this week. Patient is appropriate for trach change. Will d/w Dr. Kraus, patient's surgeon, on Saturday to arrange trach revision or change.
--- NOTE | 2018-04-12 09:19 | P.PNIM ---
Subjective Interval history: Pt seen and examined. AFVSS. No acute events overnight. D/W nursing. Pt continues to have yellow, frothy diarrhea despite being started on empiric PO vanco. Otherwise no other issues. She is working with PT. She is two-person assist and ambulating with walker. Pt endorses some pain at her trach site which was evaluated by general surgery. She will need fenestrated trach prior to discharge to rehab which will likely be done early this week once Dr. Kraus is back on. She denies CP, SOB, or abdominal pain. Physical Exam Vital signs: Vital Signs 04/11/18 10:08 04/11/18 12:00 04/11/18 16:00 Temperature 98.6 F 97.8 F Pulse Rate 80 84 Respiratory Rate 18 18 Blood Pressure 112/74 98/58 L Pulse Oximetry 99 97 98 04/11/18 20:00 04/12/18 00:00 04/12/18 04:00 Temperature 98.6 F 97.2 F L 97.3 F L Pulse Rate 59 L 60 59 L Respiratory Rate 20 20 20 Blood Pressure 102/48 L 102/50 L 101/51 L Pulse Oximetry 99 100 97 Intake & Output 04/11/18 04/12/18 04/12/18 18:59 06:59 18:59 Intake Total 910 / 910 1033 / 1033 Output Total 1800 / 1800 400 / 400 Balance -890 / -890 633 / 633 Weight 70.5 kg Intake: IV 50 / 50 Avycaz Inj 2.5 GM In NS Inj 50 50 / 50 ML @ 25 mls/hr IV.SIG Q8H [facility] Rx#:[id number] Oral 60 / 60 Tube Feeding 550 / 550 733 / 733 Tube Irrigant 240 / 240 Water Bolus Amount 250 / 250 60 / 60 Output: Urine 1500 / 1500 400 / 400 Gastric Drainage 300 / 300 G Tube 300 / 300 Other: # Voids 3 1 Date of Last Bowel Movement 04/11/18 # Incontinent Bowel Movements 2 Narrative: GENERAL: Elderly female in NAD. Awake and alert and answers questions appropriately. SKIN: Warm and dry. Some erythema and excoriations around her trach. HEENT: AT/NC. Pupils equal and round. HEART: RRR no m/r/g. LUNGS: CTAB. No accessory muscles ABDOMEN: GJ tube in place. EXTREMITIES: No LE edema. 2+ pedal pulses. NEURO: No gross deficits. - Urinary Catheter Management Female External Cath placed during this visit: no Indwelling Urethral Catheter Cath placed during this visit: yes, but has since been removed by the nurse Reason for continuing: Hourly intake/output Insertion date: 03/06/18 Insertion time: 18:00 Removal date: 03/10/18 Removal time: 17:00 Results - Labs CBC & Chem 7: 04/06/18 07:47 04/10/18 06:41 Assessment and Plan - Assessment (1) Acute adjustment disorder with depressed mood Code(s): F43.21 - Adjustment disorder with depressed mood Status: Acute (2) Dysphasia Code(s): R47.02 - Dysphasia Status: Acute (3) Respiratory failure Code(s): J96.90 - Respiratory failure, unspecified, unspecified whether with hypoxia or hypercapnia Status: Acute (4) Protein-calorie malnutrition, severe Code(s): E43 - Unspecified severe protein-calorie malnutrition Status: Chronic (5) Laryngeal squamous cell carcinoma Code(s): C32.9 - Malignant neoplasm of larynx, unspecified Status: Acute (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 She has already been treated for pneumonia as well as a MRSA/ Caitlyn tropicalis UTI with multiple antibiotics. 1. Respiratory failure - Patient with history of supraglottic laryngeal cancer s/p radiation and chemo resulting in radiation-induced laryngeal scarring and recurrent aspiration - Presented on 03/06 with respiratory distress and saturations in the 50s, intubated emergently by ED physician - Sputum culture 03/08 growing MRSA - S/P treatment for aspiration PNA with Cefepime, Flagyl, and Vancomycin - S/P tracheostomy 03/11 with general surgery. GS re-evaluated today for replacement with fenestrated tube which will likely be done early this week - Pulmonology following for trach care - Bronchodilators - On T-piece now with FiO2 28 2. Diarrhea - Continue PEG vanco - D/C laxatives, stool softeners - Probiotics - Add cholestyramine 3. PEG site infection - Culture + for MDRO, Pseudomonas and MRSA - ID was consulted - Completed course of Avicaz and vancomycin 4. Myelodysplastic syndrome with anemia and thrombocytopenia - Heme/onc was consulted - S/P bone marrow biopsy 03/31 - Not a candidate for chemo - Monitor CBC periodically, check tomorrow - Transfuse as needed, if Hb<7.0 or patient symptomatic 5. RLE DVT - Continue Lovenox 6. Failure to thrive, protein energy malnutrition - Patient with severe pharyngeal dysphagia, esophageal stricture - G/J tube in place flush with 60 cc free water every 8 hours and Vital 1.5 at 55/hr per nutrition recs - G-tube to gravity, reverse Trendelenburg while in bed 7. Chronic systolic heart failure - 2D echo 02/23 showing EF 35% with anterior septal hypokinesis and biatrial dilation - Patient euvolemic on exam today - Pt would benefit from an SNEHA-I or ARB as well as spironolactone but BPs have been borderline hypotensive so will hold off 8. Hypothyroidism - Continue home Levothyroxine 9. Adjustment disorder with depression - Continue Lexapro and Wellbutrin 10. Coccygeal wound - Wound care following - Position changes 11. GERD, h/o Barretts - Continue PPI DVT prophylaxis: On Lovenox Patient with multiple comorbid conditions as described above. She would certainly be a candidate for hospice but patient and son wanting to pursue somewhat aggressive care short of additional surgeries and plan for rehab on d/ c. Code Status: Full Discussed Condition With: Patient, RN, and Dr. Moore Discharge Planning: Patient will need rehab on discharge. Case management assisting Palliative and rehab medicine following (3) Respiratory failure Qualifiers: Chronicity: acute Respiratory failure complication: hypoxia Qualified Code(s ): J96.01 - Acute respiratory failure with hypoxia
[2018-04-12] MEDS: Simethicone 125 MG Chew Tablet G-TUBE PRN (10:34)
--- NOTE | 2018-04-12 19:18 | P.DIET ---
Nutritional Evaluation Type of nutrition evaluation: follow-up Nutrition consult regarding: Tube Feeding Nutrition screening: [facility] [place] Objective - Diagnosis Respiratory Failure - Objective [place] body weight: 59 kg % IBW: 113 Body Weight Used for Calculations: Actual (Actual Body Wt 67kg(147-lb)) Energy Needs - Lower Range (kCal/kg): 25 Energy Needs - Upper Range (kCal/kg): 30 Lower Limit kCal/kg (kCals): 1,675 Upper Limit kCal/kg (kCals): 2,010 Lower Limit Protein Factor (Grams per Kg): 1.2 Upper Limit Protein Factor (Grams per Kg): 1.5 Lower Protein Needs (Protein): 80 Upper Protein Needs (Protein): 101 Dietitian Reviewed in Medical Record: Curent medications, Intake & Output, Labs , Medical history, Tube feeding Diet Order: TF'ing ONLY: Vital 1.5 @ goal rate 55ml/hr Objective Comments: PMH: Arthritis, Ralph's Esophagus, GERD, Hypothyroidism, Skin Cancer of forehead, Squamous cell carcinoma of larynx, Squamous cell carcinoma of supraglottis s/p laproscopic G-J tube placement 02/13/18 Meds include: Synthroid, Theragran Feeding - Current Tube Feeding Tube Feeding Product: Vital 1.5 Tube Feeding Method: Pump Tube Feeding Rate: 55 Tube Feeding Route: J/G tube Current kCals Provided by Tube Feedin,800 Current Protein Provided by Tube Feeding (gPRO): 81 Medications That Affect Tube Feeding Run Time: Synthroid Total Time Off: 2 hours Current Free H2O Provided (m/l): 917 Assessment Assessment: noted, Pt continues to have yellow, frothy diarrhea despite being started on empiric PO vanco.. Pt. with +BM, +UOP but wts. remain inconsistent. Pt. continues on Synthroid. Recommend continuing Vital 1.5 @ 55mls/hr over 22 hours. Continue to monitor TFing tolerance and labs. Recommendations: 1. Recommend continuing Vital 1.5 @ 55mls/hr over 22 hours. 2. Continue to monitor TFing tolerance and labs. Dietitian to Monitor: Lab values, Glucose level, Intake & Output, Tube feeding tolerance, Weight change, Medical course
[2018-04-13] MEDS: Pantoprazole Inj 40 MG Vial IV.PUSH SCH ×2 (02:00→14:33)
[2018-04-13] MEDS: Levothyroxine 100 MCG Tablet G-TUBE SCH (06:00)
[2018-04-13 06:45] LABS: Hematocrit 26.1 % (35.0-46.0); Hemoglobin 8.6 gm/dL (11.6-15.3); Mean Corpuscular HGB Conc 32.8 % (32.0-36.0); Mean Corpuscular Hemoglobin 28.3 pg (27.0-34.0); Mean Corpuscular Volume 86.4 fL (80.0-100.0); Mean Platelet Volume 9.6 fL (7.0-11.0); Platelet Count 152 th/mm3 (150-450); Red Blood Count 3.02 mil/mm3 (4.00-5.30); Red Cell Distribution Width 18.9 % (11.6-17.2); White Blood Count 4.8 th/mm3 (4.0-11.0)
[2018-04-13 07:17] LABS: Calcium 8.3 mg/dL (8.5-10.1); Carbon Dioxide 26.5 meq/L (21.0-32.0); Potassium 4.4 meq/L (3.5-5.1)
[2018-04-13] MEDS: buPROPion 75 MG Tablet NG/OG SCH (09:00)
[2018-04-13] MEDS: Potassium Chloride 25 MEQ Effervescent Tablet G-TUBE SCH (09:00)
[2018-04-13] MEDS: Enoxaparin Inj 80 MG/0.8 ML Syringe SQ SCH (09:00)
[2018-04-13] MEDS: Lactobacillus Acidophilus/L. Spores Tablet G-TUBE SCH ×2 (09:00→14:28)
[2018-04-13] MEDS: Ascorbic Acid 500 MG Tablet G-TUBE SCH (09:00)
[2018-04-13] MEDS: Simethicone 125 MG Chew Tablet G-TUBE PRN (09:30)
--- NOTE | 2018-04-13 12:04 | P.PN ---
Subjective Interval history: patient is awake and alert, interactive denies any abdominal pain seen with staff nurse- TF is being administered through the J tube but feeding - is not getting abosrbed- 100%- coming out of the G- T opening Physical Exam Vital signs: Vital Signs 04/12/18 16:00 04/12/18 18:38 04/12/18 20:00 Temperature 98.1 F 97.4 F L Pulse Rate 54 L 59 L Respiratory Rate 20 20 Blood Pressure 100/59 L 111/52 L Pulse Oximetry 96 95 99 04/13/18 00:00 04/13/18 04:00 Temperature 97.5 F L 98.5 F Pulse Rate 58 L 57 L Respiratory Rate 20 20 Blood Pressure 112/54 L 103/50 L Pulse Oximetry 98 100 Intake & Output 04/12/18 04/13/18 04/13/18 18:59 06:59 18:59 Intake Total 1020 / 1020 960 / 960 Output Total 2250 / 2250 550 / 550 Balance -1230 / -1230 410 / 410 Weight 64.7 kg Intake: Oral 100 / 100 100 / 100 Tube Feeding 660 / 660 660 / 660 Water Bolus Amount 260 / 260 200 / 200 Output: Urine 1000 / 1000 550 / 550 Emesis 100 / 100 Gastric Drainage 1150 / 1150 G Tube 1150 / 1150 Other: # Voids 2 2 # Incontinent Voids 2 Date of Last Bowel Movement 04/11/18 04/11/18 # Emeses 3 Narrative: awake and alert, no acute distress, interactive anciteric trache in place heart regula rhythm lungs- no rales, no rhonchi ABDOMEN: GJ tube in place. EXTREMITIES: No LE edema. 2+ pedal pulses. NEURO: No gross deficits. - Urinary Catheter Management Female External Cath placed during this visit: no Indwelling Urethral Catheter Cath placed during this visit: yes, but has since been removed by the nurse Reason for continuing: Hourly intake/output Insertion date: 03/06/18 Insertion time: 18:00 Removal date: 03/10/18 Removal time: 17:00 Results - Labs CBC & Chem 7: 04/13/18 06:24 04/13/18 06:24 Laboratory Results - last 24 hr 04/13/18 04/13/18 06:24 06:24 WBC 4.8 RBC 3.02 L Hgb 8.6 L Hct 26.1 L MCV 86.4 MCH 28.3 MCHC 32.8 RDW 18.9 H Plt Count 152 D MPV 9.6 Sodium 136 Potassium 4.4 Chloride 100 Carbon Dioxide 26.5 Anion Gap 10 BUN 34 H Creatinine 1.13 H Estimated GFR 47 L Random Glucose 105 Calcium 8.3 L Assessment and Plan - Assessment (1) Acute adjustment disorder with depressed mood Code(s): F43.21 - Adjustment disorder with depressed mood Status: Acute (2) Dysphasia Code(s): R47.02 - Dysphasia Status: Acute (3) Respiratory failure Code(s): J96.90 - Respiratory failure, unspecified, unspecified whether with hypoxia or hypercapnia Status: Acute (4) Protein-calorie malnutrition, severe Code(s): E43 - Unspecified severe protein-calorie malnutrition Status: Chronic (5) Laryngeal squamous cell carcinoma Code(s): C32.9 - Malignant neoplasm of larynx, unspecified Status: Acute (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 She has already been treated for pneumonia as well as a MRSA/ Caitlyn tropicalis UTI with multiple antibiotics. Chronic Respiratory failure - Patient with history of supraglottic laryngeal cancer s/p radiation and chemo resulting in radiation-induced laryngeal scarring and recurrent aspiration - Presented on 03/06 with respiratory distress and saturations in the 50s, intubated emergently by ED physician - Sputum culture 03/08 growing MRSA - S/P treatment for aspiration PNA with Cefepime, Flagyl, and Vancomycin - S/P tracheostomy 03/11 with general surgery. GS re-evaluated today for replacement with fenestrated tube which will likely be done early this week - Pulmonology following for trach care - Bronchodilators - On T-piece now with FiO2 28 - General surgery is planning to change trach to fenestrated one tomorrow 04/13 Diarrhea- improved- will continue to monitor- no diarrhea today - Continue PEG vanco - D/C laxatives, stool softeners - Probiotics - Added cholestyramine 4 mg bid 04/12- seemed to help GJ tube malfunction/malpositioning - reconsult GI - Dr. Catalan - d/w staff nurse - tube feedings given trhough JT tube coming out of GT site- not getting absorbed - get KUB- to check placement - IR consult to evaluate too and check GJ - proper placement PEG site infection- resolved - Culture + for MDRO, Pseudomonas and MRSA - ID was consulted - Completed course of Avicaz and vancomycin Myelodysplastic syndrome with anemia and thrombocytopenia - Heme/onc was consulted - S/P bone marrow biopsy 03/31 - Not a candidate for chemo - Monitor CBC periodically, - Transfuse as needed, if Hb<7.0 or patient symptomatic RLE DVT - Continue Lovenox Failure to thrive, protein energy malnutrition - Patient with severe pharyngeal dysphagia, esophageal stricture - G/J tube in place flush with 60 cc free water every 8 hours and Vital 1.5 at 55/hr per nutrition recs - G-tube to gravity, reverse Trendelenburg while in bed Chronic systolic heart failure - 2D echo 02/23 showing EF 35% with anterior septal hypokinesis and biatrial dilation - Patient euvolemic on exam today - Pt would benefit from an SNEHA-I or ARB as well as spironolactone but BPs have been borderline hypotensive so will hold off Hypothyroidism - Continue home Levothyroxine Adjustment disorder with depression - Continue Lexapro and Wellbutrin Coccygeal wound- stable - Wound care following - Position changes GERD, h/o Barretts - Continue PPI DVT prophylaxis: On Lovenox Patient with multiple comorbid conditions as described above. She would certainly be a candidate for hospice but patient and son wanting to pursue somewhat aggressive care short of additional surgeries and plan for rehab on d/ c. Code Status: Full Discussed Condition With: Patient, RN, Discharge Planning: Patient will need rehab on discharge. Case management assisting Palliative and rehab medicine following (3) Respiratory failure Qualifiers: Chronicity: acute Respiratory failure complication: hypoxia Qualified Code(s ): J96.01 - Acute respiratory failure with hypoxia
[2018-04-13] MEDS: Dextrose 5%/NaCl 0.9% Inj 1,000 ML IV.CONT SCH (12:15)
--- NOTE | 2018-04-13 12:57 | XR ---
EXAM DATE: 04/13/2018 12:51 PM EDT AGE/SEX: 73 years / Female INDICATIONS: Evaluate GJ tube placement. states that when patient is fed through her J tube, it is coming out of her J tube. CLINICAL DATA: This is the patient's initial encounter. Patient reports that signs and symptoms have been present for 2 days and indicates a pain score of 0/10. MEDICAL/SURGICAL HISTORY: Gastroesophageal reflux disease. Rendon's esophagus. Cholecystecto my. Hernia repair. COMPARISON: [facility] [place], CT ABDOMEN & PELVIS W CONTRAST, 03/15/2018. . FINDINGS: There is a gastrojejunostomy catheter in place. The jejunostomy portion of the catheter appears to b e confined to the shape of the stomach. No dilated loops of bowel. No free air or pneumatosis. Degene rative changes in the lower lumbar spine. CONCLUSION: 1. The gastrojejunostomy catheter appears to be confined to the shape the stomach and may have been pulled back into the stomach which likely accounts for symptoms. May consider repeat radiograph with small amount of contrast injected through the jejunostomy port to confirm the findings. If displaced into the stomach, the gastrojejunostomy catheter will need to be repositioned under fluoroscopic guid ance. Electronically signed by: Chris Vieira MD 04/13/2018 12:55 PM EDT
--- NOTE | 2018-04-13 13:27 | P.PNGI ---
Physical Exam Vital signs: Vital Signs 04/12/18 16:00 04/12/18 18:38 04/12/18 20:00 Temperature 98.1 F 97.4 F L Pulse Rate 54 L 59 L Respiratory Rate 20 20 Blood Pressure 100/59 L 111/52 L Pulse Oximetry 96 95 99 04/13/18 00:00 04/13/18 04:00 04/13/18 08:00 Temperature 97.5 F L 98.5 F 98.7 F Pulse Rate 58 L 57 L 66 Respiratory Rate 20 20 24 Blood Pressure 112/54 L 103/50 L 107/58 L Pulse Oximetry 98 100 98 04/13/18 12:00 04/13/18 12:04 Temperature 98.9 F Pulse Rate 58 L Respiratory Rate 20 Blood Pressure 106/52 L Pulse Oximetry 100 99 Intake & Output 04/12/18 04/13/18 04/13/18 18:59 06:59 18:59 Intake Total 1020 / 1020 960 / 960 Output Total 2250 / 2250 550 / 550 Balance -1230 / -1230 410 / 410 Weight 64.7 kg Intake: Oral 100 / 100 100 / 100 Tube Feeding 660 / 660 660 / 660 Water Bolus Amount 260 / 260 200 / 200 Output: Urine 1000 / 1000 550 / 550 Emesis 100 / 100 Gastric Drainage 1150 / 1150 G Tube 1150 / 1150 Other: # Voids 2 2 # Incontinent Voids 2 Date of Last Bowel Movement 04/11/18 04/11/18 # Emeses 3 - Urinary Catheter Management Female External Cath placed during this visit: no Indwelling Urethral Catheter Cath placed during this visit: yes, but has since been removed by the nurse Reason for continuing: Hourly intake/output Insertion date: 03/06/18 Insertion time: 18:00 Removal date: 03/10/18 Removal time: 17:00 Results - Labs CBC & Chem 7: 04/13/18 06:24 04/13/18 06:24 Laboratory Results - last 24 hr 04/13/18 04/13/18 06:24 06:24 WBC 4.8 RBC 3.02 L Hgb 8.6 L Hct 26.1 L MCV 86.4 MCH 28.3 MCHC 32.8 RDW 18.9 H Plt Count 152 D MPV 9.6 Sodium 136 Potassium 4.4 Chloride 100 Carbon Dioxide 26.5 Anion Gap 10 BUN 34 H Creatinine 1.13 H Estimated GFR 47 L Random Glucose 105 Calcium 8.3 L - Imaging Impressions Abdomen X-Ray 04/13/18 12:13 CONCLUSION: 1. The gastrojejunostomy catheter appears to be confined to the shape the stomach and may have been pulled back into the stomach which likely accounts for symptoms. May consider repeat radiograph with small amount of contrast injected through the jejunostomy port to confirm the findings. If displaced into the stomach, the gastrojejunostomy catheter will need to be repositioned under fluoroscopic guidance. Assessment and Plan (1) Dysphagia Status: Chronic Code(s): R13.10 - Dysphagia, unspecified - Plan I was asked to see the patient because of feeding tube difficulties. Radiologic imaging confirms that the J-tube has migrated (or been pulled back) into the stomach. Interventional radiology should be consulted to reposition the J-tube. The G-tube should not be used for administering anything as she has gastroparesis. All fluid/medications/nutrition should be administered via the J-tube. Ideallly, she should still be in the reverse Trendelenberg position while in bed; never supine.
[2018-04-13] MEDS ORDERED: Acetaminophen 325 MG Tablet J-TUBE PRN (17:00)
[2018-04-13] MEDS ORDERED: Simethicone 125 MG Chew Tablet J-TUBE PRN (17:00)
[2018-04-13] MEDS ORDERED: Hyoscyamine Liq Drops 0.125 MG/ML 15 ML Bottle J-TUBE PRN (17:00)
[2018-04-13] MEDS ORDERED: Ondansetron Liq 4 MG/5 ML UDC J-TUBE PRN (17:15)
[2018-04-14] MEDS: Pantoprazole Inj 40 MG Vial IV.PUSH SCH ×2 (02:00→13:30)
[2018-04-14 07:04] LABS: Calcium 8.4 mg/dL (8.5-10.1); Carbon Dioxide 25.9 meq/L (21.0-32.0); Potassium 4.2 meq/L (3.5-5.1)
--- NOTE | 2018-04-14 09:22 | P.PNIM ---
Subjective Interval history: The pt was resting comfortably in bed. She indicated that she had some bothersome secretions. No concerns from nursing. Physical Exam Vital signs: Vital Signs 04/13/18 12:00 04/13/18 12:04 04/13/18 16:00 Temperature 98.9 F 98.7 F Pulse Rate 58 L 74 Respiratory Rate 20 18 Blood Pressure 106/52 L 110/64 Pulse Oximetry 100 99 100 04/13/18 18:48 04/13/18 20:00 04/13/18 22:15 Temperature 98.5 F Pulse Rate 59 L 72 Respiratory Rate 23 22 Blood Pressure 122/58 L Pulse Oximetry 100 100 04/14/18 00:00 04/14/18 01:19 04/14/18 04:00 Temperature 98.4 F 97.9 F Pulse Rate 59 L 56 L Respiratory Rate 20 20 Blood Pressure 119/57 L 119/58 L Pulse Oximetry 99 100 99 04/14/18 08:55 Temperature Pulse Rate Respiratory Rate Blood Pressure Pulse Oximetry 97 Intake & Output 04/13/18 04/14/18 04/14/18 18:59 06:59 18:59 Intake Total 550 / 550 1058 / 1058 Output Total 1999 / 1999 400 / 400 Balance -1450 / -1450 658 / 658 Weight 62.6 kg Intake: Oral 20 / 20 50 / 50 Tube Feeding 330 / 330 0 / 0 Water Bolus Amount 200 / 200 0 / 0 Other 1008 / 1008 Output: Urine 800 / 800 200 / 200 Emesis 100 / 100 Gastric Drainage 1100 / 1100 200 / 200 G Tube 1100 / 1100 200 / 200 Other: # Voids 3 # Incontinent Voids 2 Date of Last Bowel Movement 04/12/18 04/11/18 # Emeses 2 Narrative: awake and alert, no acute distress, interactive anciteric trach in place heart regular rhythm lungs- no rales, no rhonchi ABDOMEN: GJ tube in place. EXTREMITIES: No LE edema. 2+ pedal pulses. NEURO: No gross deficits - Urinary Catheter Management Female External Cath placed during this visit: no Indwelling Urethral Catheter Cath placed during this visit: yes, but has since been removed by the nurse Reason for continuing: Hourly intake/output Insertion date: 03/06/18 Insertion time: 18:00 Removal date: 03/10/18 Removal time: 17:00 Results - Labs CBC & Chem 7: 04/13/18 06:24 04/14/18 05:55 Laboratory Results - last 24 hr 04/14/18 05:55 Sodium 137 Potassium 4.2 Chloride 102 Carbon Dioxide 25.9 Anion Gap 9 BUN 30 H Creatinine 1.11 H Estimated GFR 48 L Random Glucose 94 Calcium 8.4 L - Imaging Impressions Abdomen X-Ray 04/13/18 12:13 CONCLUSION: 1. The gastrojejunostomy catheter appears to be confined to the shape the stomach and may have been pulled back into the stomach which likely accounts for symptoms. May consider repeat radiograph with small amount of contrast injected through the jejunostomy port to confirm the findings. If displaced into the stomach, the gastrojejunostomy catheter will need to be repositioned under fluoroscopic guidance. Assessment and Plan - Assessment (1) Acute adjustment disorder with depressed mood Code(s): F43.21 - Adjustment disorder with depressed mood Status: Acute (2) Dysphasia Code(s): R47.02 - Dysphasia Status: Acute (3) Respiratory failure Code(s): J96.90 - Respiratory failure, unspecified, unspecified whether with hypoxia or hypercapnia Status: Acute (4) Protein-calorie malnutrition, severe Code(s): E43 - Unspecified severe protein-calorie malnutrition Status: Chronic (5) Laryngeal squamous cell carcinoma Code(s): C32.9 - Malignant neoplasm of larynx, unspecified Status: Acute (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 She has already been treated for pneumonia as well as a MRSA/ Caitlyn tropicalis UTI with multiple antibiotics. 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 GS re-evaluated today for replacement with fenestrated tube which will likely be done early this week - Pulmonology following for trach care - Bronchodilators - On T-piece now with FiO2 28 - General surgery is planning to change trach to fenestrated one today Diarrhea- improved- will continue to monitor- no diarrhea today - Continue PEG vanco - D/C laxatives, stool softeners - Probiotics - Added cholestyramine 4 mg bid 04/12- seemed to help GJ tube malfunction/malpositioning - reconsulted GI - Dr. Catalan. KUB confirmed GJ tube not in place. - IR consulted to reposition GJ tube. PEG site infection- resolved - Culture + for MDRO, Pseudomonas and MRSA - ID was consulted - Completed course of Avicaz and vancomycin Myelodysplastic syndrome with anemia and thrombocytopenia - Heme/onc was consulted - S/P bone marrow biopsy 03/31 - Not a candidate for chemo - Monitor CBC periodically, - Transfuse as needed, if Hb<7 or patient symptomatic RLE DVT - Continue Lovenox Failure to thrive, protein energy malnutrition - Patient with severe pharyngeal dysphagia, esophageal stricture - G/J tube in place flush with 60 cc free water every 8 hours and Vital 1.5 at 55/hr per nutrition recs - G-tube to gravity, reverse Trendelenburg while in bed Chronic systolic heart failure - 2D echo 02/23 showing EF 35% with anterior septal hypokinesis and biatrial dilation - Patient euvolemic on exam today - Pt would benefit from an SNEHA-I or ARB as well as spironolactone but BPs have been borderline hypotensive so will hold off Hypothyroidism - Continue home Levothyroxine Adjustment disorder with depression - Continue Lexapro and Wellbutrin Coccygeal wound- stable - Wound care following - Position changes GERD, h/o Barretts - Continue PPI DVT prophylaxis: On Lovenox Discharge Planning: Son would like to be updated on care regularly. He would like [facility] to evaluate. Also interested in [facility]. GIB bleed noted 03/21. GI notified. Transfuse 2 units and follow with GI. (3) Respiratory failure Qualifiers: Chronicity: acute Respiratory failure complication: hypoxia Qualified Code(s ): J96.01 - Acute respiratory failure with hypoxia
[2018-04-14] MEDS: Dextrose 5%/NaCl 0.9% Inj 1,000 ML IV.CONT SCH (12:47)
--- NOTE | 2018-04-14 17:34 | P.PN ---
Subjective Interval history: She is awake and stable. Needs a fenestrated trach and a New PEG tube. Will have them done today. Trach secretions are clear. Physical Exam Vital signs: Vital Signs 04/13/18 18:48 04/13/18 20:00 04/13/18 22:15 Temperature 98.5 F Pulse Rate 59 L 72 Respiratory Rate 23 22 Blood Pressure 122/58 L Pulse Oximetry 100 100 04/14/18 00:00 04/14/18 01:19 04/14/18 04:00 Temperature 98.4 F 97.9 F Pulse Rate 59 L 56 L Respiratory Rate 20 20 Blood Pressure 119/57 L 119/58 L Pulse Oximetry 99 100 99 04/14/18 08:00 04/14/18 08:55 04/14/18 12:00 Temperature 97.6 F 98.9 F Pulse Rate 55 L 59 L Respiratory Rate 14 24 Blood Pressure 121/58 L 136/88 Pulse Oximetry 100 97 100 Intake & Output 04/13/18 04/14/18 04/14/18 18:59 06:59 18:59 Intake Total 550 / 550 1058 / 1058 1000 / 1000 Output Total 1999 / 1999 400 / 400 Balance -1450 / -1450 658 / 658 1000 / 1000 Weight 62.6 kg Intake: IV 1000 / 1000 D5W/Normal Saline Inj 1,000 ML 1000 / 1000 @ 40 mls/hr IV.CONT .Q24H [facility] Rx#:[id number] Oral 20 / 20 50 / 50 Tube Feeding 330 / 330 0 / 0 Water Bolus Amount 200 / 200 0 / 0 Other 1008 / 1008 Output: Urine 800 / 800 200 / 200 Emesis 100 / 100 Gastric Drainage 1100 / 1100 200 / 200 G Tube 1100 / 1100 200 / 200 Other: # Voids 3 # Incontinent Voids 2 Date of Last Bowel Movement 04/12/18 04/11/18 # Emeses 2 Narrative: Elderly W/F thin and in no acute distress, interactive trach in place with mild secretions. heart regular rhythm and No murmur. lungs- no Crackles, Or wheeze. ABDOMEN: GJ tube in place. Soft and Non tender. EXTREMITIES: No LE edema. 2+ pedal pulses. NEURO: No gross deficits - Urinary Catheter Management Female External Cath placed during this visit: no Indwelling Urethral Catheter Cath placed during this visit: yes, but has since been removed by the nurse Reason for continuing: Hourly intake/output Insertion date: 03/06/18 Insertion time: 18:00 Removal date: 03/10/18 Removal time: 17:00 Results - Labs CBC & Chem 7: 04/13/18 06:24 04/14/18 05:55 Laboratory Results - last 24 hr 04/14/18 05:55 Sodium 137 Potassium 4.2 Chloride 102 Carbon Dioxide 25.9 Anion Gap 9 BUN 30 H Creatinine 1.11 H Estimated GFR 48 L Random Glucose 94 Calcium 8.4 L 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 - Malignant neoplasm of larynx, unspecified Status: Acute (3) Supraglottic stenosis Code(s): J38.6 - Stenosis of larynx Status: Acute (4) Status post radiation therapy Code(s): Z92.3 - Personal history of irradiation Status: Acute (5) Barretts esophagus Code(s): K22.70 - Rendon's esophagus without dysplasia Status: Acute (6) Dyspnea Code(s): R06.00 - Dyspnea, unspecified Status: Acute (7) Aspiration pneumonia Code(s): J69.0 - Pneumonitis due to inhalation of food and vomit Status: Acute (8) Aspiration into airway Code(s): T17.908A - Unspecified foreign body in respiratory tract, part unspecified causing other injury, initial encounter Status: Acute (9) DVT (deep venous thrombosis) Code(s): I82.409 - Acute embolism and thrombosis of unspecified deep veins of unspecified lower extremity Status: Acute (10) Myelodysplasia (myelodysplastic syndrome) Code(s): D46.9 - Myelodysplastic syndrome, unspecified Status: Acute - Plan 1. Cont on T Collar 30 % FIO2 all the time. 2. Cont Trach care and lavage PRN. 3. Continue Duo nebs q6h 4. Surgery to change trach to a Fenestrated #8. 5. Will go to Rehab facility next week 6. Cont levsin .125 mg TID S/L PRN 7. Tube feeds at 60 CC. 8. PEG to be replaced. (7) Aspiration pneumonia Qualifiers: Aspiration pneumonia type: unspecified Laterality: unspecified laterality Lung location: unspecified part of lung Qualified Code(s): J69.0 - Pneumonitis due to inhalation of food and vomit
--- NOTE | 2018-04-14 17:56 | P.PNPAL ---
Reason for Visit Reason for visit: a. To assist with evaluation and management of symptoms including:dyspnea, dysphagia, physical deconditioning b. To assist medical decision maker(s) with: better understanding of current medical conditions; weighing benefits/burdens of medical treatment options; making medical treatment decisions. Subjective Subjective/Interval History: Follow up medically necessary for clarification of goals of medical treatment. Received call earlier on from bedside RN Harry Giron stating that patient is refusing to go to interventional radiology for repositioning of J-tube. Interim course: * Abdominal x-ray on 04/13/2018 revealed gastrojejunostomy catheter confined to the stomach and may have been pulled back into the stomach. If displaced into the stomach a gastrojejunostomy catheter will need to be repositioned under fluoroscopic guidance. * Laboratory workup on 04/13/18 revealed WBC 4.8, hemoglobin 8.6, hematocrit 26.1 , platelet count 152 Patient seen in the presence of bedside RN Bree and Abby, another RN on floor. Patient is awake, alert and oriented. Patient communicates by clearly mouthing words. She appears to understand her medical condition and is appropriate in her responses to questions. Readdressed CODE STATUS with patient , and patient elected to be a full code, she wants to be resuscitated as well as placed on life support if need be. Patient states that she wants to be resuscitated because she loves her son. Explained to patient that we want to honor her wishes and do what she wants. Patient tearfully acknowledged that her decisions are based on what she wants. Patient would like to proceed with gastrojejunostomy repositioning by radiology. Patient is wandering why procedure was not done today and whether the physicians will be able to do it tomorrow. Explained to patient that as long as she has not changed her mind, procedure will be done tomorrow. Encouraged patient to continue discussions with her son regarding her wishes as well as let him know when she no longer wants to continue aggressive treatment. At this time patient wants to proceed with aggressive treatment. Case discussed with bedside per diem rn/Friend Interactions: No family at bedside Advance Directives Living Will: Completed, but not made available Health Care Surrogate: Completed, but not made available Durable Power of Exercise Instructor: Completed, but not made available Health Care Surrogate Name and Number: Fish Alcantara [phone] Objective Vital Signs: Vital Signs 04/13/18 18:48 04/13/18 20:00 04/13/18 22:15 Temperature 98.5 F Pulse Rate 59 L 72 Respiratory Rate 23 22 Blood Pressure 122/58 L Pulse Oximetry 100 100 04/14/18 00:00 04/14/18 01:19 04/14/18 04:00 Temperature 98.4 F 97.9 F Pulse Rate 59 L 56 L Respiratory Rate 20 20 Blood Pressure 119/57 L 119/58 L Pulse Oximetry 99 100 99 04/14/18 08:00 04/14/18 08:55 04/14/18 12:00 Temperature 97.6 F 98.9 F Pulse Rate 55 L 59 L Respiratory Rate 14 24 Blood Pressure 121/58 L 136/88 Pulse Oximetry 100 97 100 Intake & Output 04/13/18 04/14/18 04/14/18 18:59 06:59 18:59 Intake Total 550 / 550 1058 / 1058 1000 / 1000 Output Total 2000 / 1999 400 / 400 Balance -1450 / -1450 658 / 658 1000 / 1000 Weight 62.6 kg Intake: IV 1000 / 1000 D5W/Normal Saline Inj 1,000 ML 1000 / 1000 @ 40 mls/hr IV.CONT .Q24H [facility] Rx#:[id number] Oral 20 / 20 50 / 50 Tube Feeding 330 / 330 0 / 0 Water Bolus Amount 200 / 200 0 / 0 Other 1008 / 1008 Output: Urine 800 / 800 200 / 200 Emesis 100 / 100 Gastric Drainage 1100 / 1100 200 / 200 G Tube 1100 / 1100 200 / 200 Other: # Voids 3 # Incontinent Voids 2 Date of Last Bowel Movement 04/12/18 04/11/18 # Emeses 2 Physical Exam: CONSTITUTIONAL/GENERAL: This is an thin elderly patient, awake, alert watching TV TUBES/LINES/DRAINS: Tracheostomy, PIV, GJ tube SKIN: No jaundice, rashes, or lesions. No wounds seen anteriorly. Normothermic EYES: PERRLA. No scleral icterus. Fundi not examined. ENT: Hearing grossly normal. Nose without bleeding or purulent drainage. Tracheostomy midline, copious tracheal secretions NECK: Trachea midline. Supple, nontender. CARDIOVASCULAR: S1, S2 normal, no murmurs, gallops, or rubs. No JVD. Peripheral pulses symmetric. RESPIRATORY/CHEST: Symmetric, unlabored respirations. Rhonchi to auscultation, no wheezes, rales. GASTROINTESTINAL: Abdomen soft, non-tender, nondistended. No guarding. Bowel sounds present. G tube to gravity, G-tube clamped GENITOURINARY: Without palpable bladder distension. MUSCULOSKELETAL: Extremities without clubbing, cyanosis, or edema. No joint tenderness or effusion noted. No calf tenderness. No mottling or clubbing. NEUROLOGICAL: Alert and oriented 3. Communicates by mouthing words. moves all extremities to command. PSYCHIATRIC: No obvious anxiety/depression. no apparent hallucinations or other psychotic thought process. Diagnostic Tests Laboratory: Laboratory Results - last 72 hr 04/13/18 04/13/18 04/14/18 06:24 06:24 05:55 WBC 4.8 RBC 3.02 L Hgb 8.6 L Hct 26.1 L MCV 86.4 MCH 28.3 MCHC 32.8 RDW 18.9 H Plt Count 152 D MPV 9.6 Sodium 136 137 Potassium 4.4 4.2 Chloride 100 102 Carbon Dioxide 26.5 25.9 Anion Gap 10 9 BUN 34 H 30 H Creatinine 1.13 H 1.11 H Estimated GFR 47 L 48 L Random Glucose 105 94 Calcium 8.3 L 8.4 L Result Diagrams: 04/13/18 06:24 04/14/18 05:55 Imaging: Abdomen/Pelvis CT 03/15/18 00:00 CONCLUSION: 1. Small pleural effusions with compressive atelectasis. 2. Gastrostomy tube evident within normal bowel gas pattern by CT. The tip of the gastrostomy tube is in the antrum of the stomach. Liver Ultrasound 03/27/18 00:00 CONCLUSION: 1. Hepatomegaly with increased echotexture characteristic of steatosis or diffuse hepatocellular disease. 2. No evidence of discrete mass or biliary obstructive disease. 3. Status post cholecystectomy. Bone Marrow Biopsy w/ CT 03/31/18 00:00 CONCLUSION: 1. Uncomplicated CT guided bone marrow aspirate. 2. Uncomplicated CT guided bone marrow biopsy. Venous Doppler Study 03/31/18 00:00 CONCLUSION: 1. Extensive deep venous thrombosis again noted without significant change. Chest X-Ray 04/09/18 00:00 CONCLUSION: Mild edema pattern with mild basilar airspace disease. Abdomen X-Ray 04/13/18 12:13 CONCLUSION: 1. The gastrojejunostomy catheter appears to be confined to the shape the stomach and may have been pulled back into the stomach which likely accounts for symptoms. May consider repeat radiograph with small amount of contrast injected through the jejunostomy port to confirm the findings. If displaced into the stomach, the gastrojejunostomy catheter will need to be repositioned under fluoroscopic guidance. Procedures: 03/06/18-endotracheal intubation in the field 03/06/18-right femoral central line 03/11/18-percutaneous tracheostomy with bronchoscopy 03/19/18-esophagogastroscopy with wire insertion/esophageal dilatation. 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 Patient now has a tracheostomy. (3) Physical deconditioning 0-10 Scale: Unable to quantify Pertinent Non-Medical Issues: Psychosocial: Patient is originally from [place]. She moved to [place] in 1978. Patient was once and is . Patient has 3 sons and 4 grandchildren. 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 Spiritual: Patient is [employer]ist Legal: Patient states that she has a DURABLE POWER OF HEALTH PROMOTER including healthcare Ethical issues impacting care: None identified at this time Important Contacts: SonAlireza Palacios [phone] Prognosis: Ms. 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 Patient was brought to the [facility] by EMS on 03/06/18 due to respiratory failure. Her O2 saturation was in the 50s on room air and she was intubated in the field prior to arrival to the ER. During this hospitalization patient underwent tracheostomy placement is well is esophageal dilatation. Given patient's comorbidities, multiple hospitalizations , she remains at risk for further complications, deterioration and decline. Code Status: Full Code Plan: PLAN: Legal decision maker: Patient is alert, oriented to self, place and situation. She appears to have insight regarding her medical condition. In the event that she is incapacitated patient stated that her son Fish Alcantara is her Durable Power of Exercise Instructor including Healthcare. Goals: Remain Aggressive-Patient wants to proceed with repositioning of gastrojejunostomy tube. Readdressed CODE STATUS with patient in the presence of her bedside RN and another floor RN and she indicates that she wants to be a FULL CODE, she would like to be resuscitated as well as placed on mechanical ventilator support if need be. Encouraged patient to continue discussions with her son regarding her wishes as well as let him know when she no longer wants to continue aggressive treatment. 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 Patient was intubated on the field when she was noted to be in respiratory failure. Patient underwent tracheostomy placement and esophageal dilatation this hospitalization. 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 Patient is failed barium swallow eval. patient remains n.p.o. needs repositioning of gastrojejunostomy tube by interventional radiology. Procedure scheduled for tomorrow * Physical deconditioning: Progressive. Patient has had prolonged hospitalization. She has undergone tracheostomy and GJ tube placement during these hospitalizations. Patient reports unintentional significant weight loss. Physical therapy following, recommending PT at rehab. Patient continues to have increased weakness and fatigue and not able to fully participate in physical therapy.Pt being evaluated by [place] [facility]. Patient will most likely not be able to do well in rehabilitation given multiple complications during this clinical course. Palliative care will continue to follow the patient during hospital course as condition evolves, to assist patient/decision-maker with understanding of their medical conditions, weighing benefits/burdens of treatment options, for clarification of goals of treatment. Additionally will assist with any symptoms of palliative concern Attestation Attestation: To help prompt me to consider important information that might be impacting today's encounter and assessment, information from prior notes written by myself or my colleagues may have been "brought forward" into today's note. My signature on this note, however, is an attestation that I personally performed the exam, history, and/or decision-making noted today, and, unless otherwise indicated, the interactions with patient, family, and staff as well as the review of records all occurred today. I also attest that the listed assessment and stated plan reflect my best clinical judgment today based on the combination of historical information, prior notes, and today's exam/ interactions. When time spent is documented, it refers only to time spent today by the signer, or if indicated, combined time spent today by collaborating physician/nurse practitioner.
[2018-04-14] MEDS: Enoxaparin Inj 80 MG/0.8 ML Syringe SQ SCH (21:00)
[2018-04-15] MEDS ORDERED: Morphine Sulfate Oral Liq 10 MG/0.5 ML Syringe SL ONE (01:08)
[2018-04-15] MEDS: Pantoprazole Inj 40 MG Vial IV.PUSH SCH ×2 (01:35→14:00)
--- NOTE | 2018-04-15 08:28 | P.PNIM ---
Subjective Interval history: in no acute distress. denies pain. no fever. d/w the RN. Physical Exam Vital signs: Vital Signs 04/14/18 08:55 04/14/18 12:00 04/14/18 16:00 Temperature 98.9 F 98.7 F Pulse Rate 59 L 58 L Respiratory Rate 24 18 Blood Pressure 136/88 128/62 Pulse Oximetry 97 100 100 04/14/18 17:49 04/14/18 20:00 04/15/18 00:00 Temperature 98.3 F 97.8 F Pulse Rate 60 65 Respiratory Rate 18 16 Blood Pressure 114/55 L 118/62 Pulse Oximetry 100 98 98 04/15/18 02:05 04/15/18 04:00 Temperature 97.6 F Pulse Rate 62 Respiratory Rate 18 16 Blood Pressure 116/62 Pulse Oximetry 98 Intake & Output 04/14/18 04/15/18 04/15/18 18:59 06:59 18:59 Intake Total 1000 / 1000 Output Total 350 / 350 650 / 650 Balance 650 / 650 -650 / -650 Weight 64.9 kg Intake: IV 1000 / 1000 D5W/Normal Saline Inj 1,000 ML 1000 / 1000 @ 40 mls/hr IV.CONT .Q24H [facility] Rx#:[id number] Output: Urine 350 / 350 Gastric Drainage 350 / 350 300 / 300 G Tube 350 / 350 300 / 300 Other: # Voids 3 Date of Last Bowel Movement 04/14/18 # Bowel Movements 1 0 - Constitutional no acute distress - Routine Neck Exam Comments: trach in place. - Routine Respiratory Exam Present: CTA bilaterally - Routine Cardiovascular Exam Present: RRR - Routine Abdominal Exam Present: soft - Routine Extremities Exam Comments: no pedal edema. - Routine Neurological Exam Present: alert, oriented X3 - Urinary Catheter Management Female External Cath placed during this visit: no Indwelling Urethral Catheter Cath placed during this visit: yes, but has since been removed by the nurse Reason for continuing: Hourly intake/output Insertion date: 03/06/18 Insertion time: 18:00 Removal date: 03/10/18 Removal time: 17:00 Results - Labs CBC & Chem 7: 04/13/18 06:24 04/14/18 05:55 Assessment and Plan - Assessment (1) Acute adjustment disorder with depressed mood Code(s): F43.21 - Adjustment disorder with depressed mood Status: Acute (2) Dysphasia Code(s): R47.02 - Dysphasia Status: Acute (3) Respiratory failure Code(s): J96.90 - Respiratory failure, unspecified, unspecified whether with hypoxia or hypercapnia Status: Acute (4) Protein-calorie malnutrition, severe Code(s): E43 - Unspecified severe protein-calorie malnutrition Status: Chronic (5) Laryngeal squamous cell carcinoma Code(s): C32.9 - Malignant neoplasm of larynx, unspecified Status: Acute (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 Chronic Respiratory failure - Patient with history of supraglottic laryngeal cancer s/p radiation and chemo resulting in radiation-induced laryngeal scarring and recurrent aspiration - Presented on 03/06 with respiratory distress and saturations in the 50s, intubated emergently by ED physician - Sputum culture 03/08 growing MRSA - S/P treatment for aspiration PNA with Cefepime, Flagyl, and Vancomycin - S/P tracheostomy 03/11 with general surgery. GS re-evaluated today for replacement with fenestrated tube which will likely be done early this week - Pulmonology following for trach care - Bronchodilators - On T-piece now with FiO2 28 - General surgery is planning to change trach to fenestrated one - Diarrhea- improved- will continue to monitor- no diarrhea today - Continue PEG vanco - D/C'ed laxatives, stool softeners - Probiotics - Added cholestyramine 4 mg bid 04/12- seemed to help GJ tube malfunction/malpositioning - reconsulted GI - Dr. Catalan. KUB confirmed GJ tube not in place. - IR consulted to reposition GJ tube. PEG site infection- resolved - Culture + for MDRO, Pseudomonas and MRSA - ID was consulted - Completed course of Avicaz and vancomycin Myelodysplastic syndrome with anemia and thrombocytopenia - Heme/onc was consulted - S/P bone marrow biopsy 03/31 - Not a candidate for chemo - Monitor CBC periodically, - Transfuse as needed, if Hb<7 or patient symptomatic RLE DVT - Continue Lovenox ( on hold for possible procedures- as mentioned above). Failure to thrive, protein energy malnutrition - Patient with severe pharyngeal dysphagia, esophageal stricture - G/J tube in place flush with 60 cc free water every 8 hours and Vital 1.5 at 55/hr per nutrition recs - G-tube to gravity, reverse Trendelenburg while in bed Chronic systolic heart failure - 2D echo 02/23 showing EF 35% with anterior septal hypokinesis and biatrial dilation - Patient euvolemic on exam today - Pt would benefit from an SNEHA-I or ARB as well as spironolactone but BPs have been borderline hypotensive so will hold off Hypothyroidism - Continue home Levothyroxine Adjustment disorder with depression - Continue Lexapro and Wellbutrin Coccygeal wound- stable - Wound care following - Position changes GERD, h/o Barretts - Continue PPI DVT prophylaxis: On Lovenox ( on hold as noted above; will resume after the procedures) Discharge Planning: case management notes reviewed; [facility] is following. (3) Respiratory failure Qualifiers: Chronicity: acute Respiratory failure complication: hypoxia Qualified Code(s ): J96.01 - Acute respiratory failure with hypoxia
[2018-04-15] MEDS: Enoxaparin Inj 80 MG/0.8 ML Syringe SQ SCH (09:40)
[2018-04-15] MEDS: Morphine Sulfate Oral Liq 10 MG/0.5 ML Syringe SL PRN (11:25)
[2018-04-15] MEDS: Dextrose 5%/NaCl 0.9% Inj 1,000 ML IV.CONT SCH (12:15)
[2018-04-15] MEDS ORDERED: fentaNYL Citrate Inj 100 MCG/2 ML Ampul ONE (13:47)
--- NOTE | 2018-04-15 14:27 | P.PNGS ---
Subjective Interval history: Resting in bed; no issues Physical Exam Vital signs: Vital Signs 04/14/18 16:00 04/14/18 17:49 04/14/18 20:00 Temperature 98.7 F 98.3 F Pulse Rate 58 L 60 Respiratory Rate 18 18 Blood Pressure 128/62 114/55 L Pulse Oximetry 100 100 98 04/15/18 00:00 04/15/18 02:05 04/15/18 04:00 Temperature 97.8 F 97.6 F Pulse Rate 65 62 Respiratory Rate 16 18 16 Blood Pressure 118/62 116/62 Pulse Oximetry 98 98 04/15/18 10:26 04/15/18 11:46 Temperature Pulse Rate Respiratory Rate Blood Pressure Pulse Oximetry 91 L 100 Intake & Output 04/14/18 04/15/18 04/15/18 18:59 06:59 18:59 Intake Total 1000 / 1000 1000 / 1000 Output Total 350 / 350 650 / 650 Balance 650 / 650 -650 / -650 1000 / 1000 Weight 64.9 kg Intake: IV 1000 / 1000 1000 / 1000 D5W/Normal Saline Inj 1,000 ML 1000 / 1000 1000 / 1000 @ 40 mls/hr IV.CONT .Q24H [facility] Rx#:[id number] Output: Urine 350 / 350 Gastric Drainage 350 / 350 300 / 300 G Tube 350 / 350 300 / 300 Other: # Voids 3 Date of Last Bowel Movement 04/14/18 # Bowel Movements 1 0 Narrative: Alert and awake Cardio: RRR Resp: CTAB Abd: G/J tube in place - Urinary Catheter Management Female External Cath placed during this visit: no Indwelling Urethral Catheter Cath placed during this visit: yes, but has since been removed by the nurse Reason for continuing: Hourly intake/output Insertion date: 03/06/18 Insertion time: 18:00 Removal date: 03/10/18 Removal time: 17:00 Assessment and Plan - Assessment (1) Tracheostomy dependence Code(s): Z93.0 - Tracheostomy status Status: Acute Plan: 73 year old female with long standing medical issues; in need of exchange trach -Trach exchanged to fenestrated #8 trach at bedside--- patient was placed 100% Fio2; RT and crash cart at bedside; Trach ties removed with ease; new trach preped with lubricant; existing trach slide out easily without any difficultly; new trach inserted and cuff inflated. Placed back on T-piece. No complications. -No issues -No bleeding -Patient to go to IR for replacement of G/J tube patient seen at bedside I exchanged trach no issues await IR for for gj advancement into jejunum - Attending Attestation The exam, history, and the medical decision-making described in the above note were completed with the assistance of the mid-level provider. I reviewed and agree with the findings presented. I attest that I had a [id number] encounter with the patient on the same day, and personally performed and documented my assessment and findings in the medical record.
--- NOTE | 2018-04-15 15:59 | IR ---
EXAM DATE: 04/15/2018 3:09 PM EDT AGE/SEX: 73 years / Female INDICATIONS: Patient presents with Carcinoma of the Larynx in need of GJ exchange for nutrition nour ishaddison. CLINICAL DATA: This is the patient's initial encounter. Patient reports that signs and symptoms have been present for 1 month and indicates a pain score of Nonresponsive. MEDICAL/SURGICAL HISTORY: Anemia. Arthritis. Hyperthyroidism. Carcinoma of the larynx, GERD, Rendon's esophagus. Cholecystectomy. Tonsillectomy. Adenoidectomy, Hernia repair. EGD with esopha geal stricture dilatation, left frontal forehead skin tumor removal. COMPARISON: No prior exams available for comparison. FLUORO TIME (min): 13.9 IMAGE SERIES: 3 CONTRAST (cc): 15cc Omnipaque (iohexol) 350 MEDICATION(S): 100mcg fentanyl (Sublimaze) IV DEVICE(S): 22 Turkmen Transgastric tube . . PROCEDURE: 1. Fluoroscopically guided gastrojejunostomy tube exchange. 2. Conscious sedation with continuous EKG and oximetry monitoring. The risks, benefits and alternatives to the procedure were explained and verbal and written consent w as obtained. The site was prepped in sterile fashion. Full sterile technique was used, including ca p, mask, sterile gloves and gown and a large sterile sheet. Hand hygiene and 2% chlorhexidine and/or betadine/alcohol prep was utilized per protocol for cutaneous antisepsis. The skin and subcutaneous tissues were infiltrated with local anesthetic solution. Small amount contrast was injected through the existing catheter demonstrating the catheter to be coi led in the stomach. With fluoroscopic guidance a guidewire was passed through the previous gastrojeju nostomy tube and a fresh tube was placed over the guidewire. The balloon was inflated with appropria te volume of saline. Injection of positive contrast demonstrates good position of the gastric and je junal lumens of the tube. Conscious sedation was performed with the prescribed dosages and duration as above in the presence of an independent trained radiology nurse to assist in the monitoring of the patient. EKG and oximetry remained stable throughout the procedure. The patient tolerated the procedure well and there were n o complications. The patient was sent to post anesthesia recovery in stable condition. CONCLUSION: 1. Uncomplicated exchange of malpositioned gastrojejunostomy catheter, as above.. Electronically signed by: Chris Vieira MD 04/15/2018 3:57 PM EDT
--- NOTE | 2018-04-15 17:40 | P.PN ---
Subjective Interval history: Had trach changed to # 8 fenestrated. She has a New PEG tube Feels depressed. Physical Exam Vital signs: Vital Signs 04/14/18 17:49 04/14/18 20:00 04/15/18 00:00 Temperature 98.3 F 97.8 F Pulse Rate 60 65 Respiratory Rate 18 16 Blood Pressure 114/55 L 118/62 Pulse Oximetry 100 98 98 04/15/18 02:05 04/15/18 04:00 04/15/18 08:00 Temperature 97.6 F 98.1 F Pulse Rate 62 80 Respiratory Rate 18 16 20 Blood Pressure 116/62 118/74 Pulse Oximetry 98 100 04/15/18 10:26 04/15/18 11:46 04/15/18 11:55 Temperature Pulse Rate Respiratory Rate 18 Blood Pressure Pulse Oximetry 91 L 100 04/15/18 12:00 04/15/18 16:00 Temperature 98.5 F 97.9 F Pulse Rate 74 66 Respiratory Rate 18 18 Blood Pressure 107/58 L 98/58 L Pulse Oximetry 99 95 Intake & Output 04/14/18 04/15/18 04/15/18 18:59 06:59 18:59 Intake Total 1000 / 1000 1000 / 1000 Output Total 350 / 350 650 / 650 Balance 650 / 650 -650 / -650 1000 / 1000 Weight 64.9 kg Intake: IV 1000 / 1000 1000 / 1000 D5W/Normal Saline Inj 1,000 ML 1000 / 1000 1000 / 1000 @ 40 mls/hr IV.CONT .Q24H [facility] Rx#:[id number] Output: Urine 350 / 350 Gastric Drainage 350 / 350 300 / 300 G Tube 350 / 350 300 / 300 Other: # Voids 3 Date of Last Bowel Movement 04/14/18 04/14/18 # Bowel Movements 1 0 Narrative: Elderly W/F Alert and awake GENERAL: SKIN: Warm and dry. HEAD: Atraumatic. Normocephalic. EYES: Pupils equal and round. No scleral icterus. No injection or drainage. ENT: No nasal bleeding or discharge. Mucous membranes pink and moist. NECK: Trachea midline. No JVD. Trach tube noted. CARDIOVASCULAR: Regular rate and rhythm. RESPIRATORY: No accessory muscle use. few basal crackles. Breath sounds equal bilaterally. GASTROINTESTINAL: Abdomen soft, non-tender, nondistended. Hepatic and splenic margins not palpable. MUSCULOSKELETAL: Extremities without clubbing, cyanosis, or edema. No obvious deformities. NEUROLOGICAL: Awake and alert. No obvious cranial nerve deficits. Motor grossly within normal limits. Cannot talk due to trach in. PSYCHIATRIC: Appropriate mood and affect. - Urinary Catheter Management Female External Cath placed during this visit: no Indwelling Urethral Catheter Cath placed during this visit: yes, but has since been removed by the nurse Reason for continuing: Hourly intake/output Insertion date: 03/06/18 Insertion time: 18:00 Removal date: 03/10/18 Removal time: 17:00 Results - Labs CBC & Chem 7: 04/13/18 06:24 04/14/18 05:55 - Imaging Impressions Tube Change 04/15/18 00:00 CONCLUSION: 1. Uncomplicated exchange of malpositioned gastrojejunostomy catheter, as above.. 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 - Malignant neoplasm of larynx, unspecified Status: Acute (3) Supraglottic stenosis Code(s): J38.6 - Stenosis of larynx Status: Acute (4) Status post radiation therapy Code(s): Z92.3 - Personal history of irradiation Status: Acute (5) Barretts esophagus Code(s): K22.70 - Rendon's esophagus without dysplasia Status: Acute (6) Dyspnea Code(s): R06.00 - Dyspnea, unspecified Status: Acute (7) Aspiration pneumonia Code(s): J69.0 - Pneumonitis due to inhalation of food and vomit Status: Acute (8) Aspiration into airway Code(s): T17.908A - Unspecified foreign body in respiratory tract, part unspecified causing other injury, initial encounter Status: Acute (9) DVT (deep venous thrombosis) Code(s): I82.409 - Acute embolism and thrombosis of unspecified deep veins of unspecified lower extremity Status: Acute (10) Myelodysplasia (myelodysplastic syndrome) Code(s): D46.9 - Myelodysplastic syndrome, unspecified Status: Acute - Plan 1. Cont on T Collar 30 % FIO2 all the time. 2. Cont Trach care and lavage PRN. 3. Continue Duo nebs q6h 4. Use PM valve to talk prn 5. PT and OT 6. Cont levsin .125 mg TID S/L PRN 7. Tube feeds at 60 CC. 8. Chest Xray, CBC,BMP (7) Aspiration pneumonia Qualifiers: Aspiration pneumonia type: unspecified Laterality: unspecified laterality Lung location: unspecified part of lung Qualified Code(s): J69.0 - Pneumonitis due to inhalation of food and vomit
[2018-04-16] MEDS: Enoxaparin Inj 80 MG/0.8 ML Syringe SQ SCH ×2 (08:49→21:26)
[2018-04-16] MEDS: Pantoprazole Inj 40 MG Vial IV.PUSH SCH ×3 (08:49→16:14)
--- NOTE | 2018-04-16 09:08 | XR ---
EXAM DATE: 04/16/2018 9:05 AM EDT AGE/SEX: 73 years / Female INDICATIONS: Difficulty breathing. Infiltrate. CLINICAL DATA: This is the patient's subsequent encounter. Patient reports that signs and symptoms h ave been present for 4 - 6 days and indicates a pain score of Nonresponsive. MEDICAL/SURGICAL HISTORY: . Anemia. Arthritis. Hyperthyroidism. Carcinoma of the larynx, GERD, Rendon's esophagus. Cholecystectomy. Tonsillectomy. Adenoidectomy, Hernia repair. EGD with esophagea l stricture dilatation, left frontal forehead skin tumor removal. . COMPARISON: . FINDINGS: Tracheostomy tube, cardiomegaly again seen. Lungs are clear. Osseous structures are intact. CONCLUSION: Negative examination. Electronically signed by: Kolby Ray MD 04/16/2018 9:07 AM EDT
[2018-04-16 09:29] LABS: Calcium 8.7 mg/dL (8.5-10.1); Carbon Dioxide 23.9 meq/L (21.0-32.0); Potassium 4.9 meq/L (3.5-5.1)
--- NOTE | 2018-04-16 13:37 | P.PNIM ---
Subjective Interval history: FOLLOW UP ON G-J TUBE EXCHANGE BREATHING A LITTLE BETTER HAS T TUBE IN PLACE CONGESTION HAS COARSE BREATH SOUNDS MUCH MORE ALERT TODAY FOLLOWING COMMANDS Physical Exam Vital signs: Vital Signs 04/15/18 16:00 04/15/18 17:54 04/15/18 20:00 Temperature 97.9 F 97 F L Pulse Rate 66 61 Respiratory Rate 18 16 Blood Pressure 98/58 L 101/51 L Pulse Oximetry 95 95 98 04/16/18 00:00 04/16/18 04:00 04/16/18 10:44 Temperature 97.5 F L 97.4 F L Pulse Rate 61 65 Respiratory Rate 16 16 Blood Pressure 99/51 L 98/51 L Pulse Oximetry 97 99 99 Intake & Output 04/15/18 04/16/18 04/16/18 18:59 06:59 18:59 Intake Total 1195 / 1195 Output Total 660 / 660 775 / 775 Balance 535 / 535 -775 / -775 Weight 64.2 kg Intake: IV 1000 / 1000 D5W/Normal Saline Inj 1,000 ML 1000 / 1000 @ 40 mls/hr IV.CONT .Q24H [facility] Rx#:[id number] Oral 20 / 20 Tube Feeding 55 / 55 Water Bolus Amount 120 / 120 Output: Urine 300 / 300 350 / 350 Gastric Drainage 360 / 360 425 / 425 G Tube 360 / 360 425 / 425 Other: # Voids 1 1 Date of Last Bowel Movement 04/14/18 04/14/18 04/16/18 # Bowel Movements 0 Narrative: Elderly W/F Alert and awake GENERAL: AWAK AND ALERT FOLLOWS COMMANDS SKIN: Warm and dry. HEAD: Atraumatic. Normocephalic. EYES: Pupils equal and round. No scleral icterus. No injection or drainage. ENT: No nasal bleeding or discharge. Mucous membranes pink and moist. NECK: Trachea midline. No JVD. Trach tube noted. CARDIOVASCULAR: Regular rate and rhythm. S1, S2 NO S3 OR SR RESPIRATORY: No accessory muscle use. few basal crackles. Breath sounds equal bilaterally. COARSE BS BL GASTROINTESTINAL: Abdomen soft, non-tender, nondistended. Hepatic and splenic margins not palpable. G-J TUBE IN PLACE MUSCULOSKELETAL: Extremities without clubbing, cyanosis, or edema. No obvious deformities. NEUROLOGICAL: Awake and alert. No obvious cranial nerve deficits. Motor grossly within normal limits. Cannot talk due to trach in. PSYCHIATRIC: Appropriate mood and affect. - Urinary Catheter Management Female External Cath placed during this visit: no Indwelling Urethral Catheter Cath placed during this visit: yes, but has since been removed by the nurse Reason for continuing: Hourly intake/output Insertion date: 03/06/18 Insertion time: 18:00 Removal date: 03/10/18 Removal time: 17:00 Results - Labs CBC & Chem 7: 04/13/18 06:24 04/16/18 08:09 Laboratory Results - last 24 hr 04/16/18 08:09 Sodium 140 Potassium 4.9 Chloride 106 Carbon Dioxide 23.9 Anion Gap 10 BUN 33 H Creatinine 1.28 H Estimated GFR 41 L Random Glucose 111 H Calcium 8.7 - Imaging Impressions Tube Change 04/15/18 00:00 CONCLUSION: 1. Uncomplicated exchange of malpositioned gastrojejunostomy catheter, as above.. Chest X-Ray 04/16/18 00:00 CONCLUSION: Negative examination. - Procedures SP G-J EXCHANGE BY IR 04-15 Assessment and Plan - Assessment (1) Acute adjustment disorder with depressed mood Code(s): F43.21 - Adjustment disorder with depressed mood Status: Acute (2) Dysphasia Code(s): R47.02 - Dysphasia Status: Acute (3) Respiratory failure Code(s): J96.90 - Respiratory failure, unspecified, unspecified whether with hypoxia or hypercapnia Status: Acute (4) Protein-calorie malnutrition, severe Code(s): E43 - Unspecified severe protein-calorie malnutrition Status: Chronic (5) Laryngeal squamous cell carcinoma Code(s): C32.9 - Malignant neoplasm of larynx, unspecified Status: Acute (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 Chronic Respiratory failure - Patient with history of supraglottic laryngeal cancer s/p radiation and chemo resulting in radiation-induced laryngeal scarring and recurrent aspiration - Presented on 03/06 with respiratory distress and saturations in the 50s, intubated emergently by ED physician - Sputum culture 03/08 growing MRSA - S/P treatment for aspiration PNA with Cefepime, Flagyl, and Vancomycin - S/P tracheostomy 03/11 with general surgery. GS re-evaluated today for replacement with fenestrated tube which will likely be done early this week - Pulmonology following for trach care - Bronchodilators - On T-piece now with FiO2 28 - General surgery HAS changed trach to fenestrated one - Diarrhea- improved- will continue to monitor- no diarrhea today - Continue PEG vanco - D/C'ed laxatives, stool softeners - Probiotics - Added cholestyramine 4 mg bid 04/12- seemed to help GJ tube malfunction/malpositioning - reconsulted GI - Dr. Catalan. KUB confirmed GJ tube not in place. - IR consulted to reposition GJ tube. IR EXCHANGED G-J TUBEON 04-15 PEG site infection- resolved - Culture + for MDRO, Pseudomonas and MRSA - ID was consulted - Completed course of Avicaz and vancomycin Myelodysplastic syndrome with anemia and thrombocytopenia - Heme/onc was consulted - S/P bone marrow biopsy 03/31 - Not a candidate for chemo - Monitor CBC periodically, - Transfuse as needed, if Hb<7 or patient symptomatic RLE DVT - Continue Lovenox ( on hold for possible procedures- as mentioned above). RESTART LOVENOX Failure to thrive, protein energy malnutrition - Patient with severe pharyngeal dysphagia, esophageal stricture - G/J tube in place flush with 60 cc free water every 8 hours and Vital 1.5 at 55/hr per nutrition recs - G-tube to gravity, reverse Trendelenburg while in bed Chronic systolic heart failure - 2D echo 02/23 showing EF 35% with anterior septal hypokinesis and biatrial dilation - Patient euvolemic on exam today - Pt would benefit from an SNEHA-I or ARB as well as spironolactone but BPs have been borderline hypotensive so will hold off Hypothyroidism - Continue home Levothyroxine Adjustment disorder with depression - Continue Lexapro and Wellbutrin Coccygeal wound- stable - Wound care following - Position changes GERD, h/o Barretts - Continue PPI DVT prophylaxis: On Lovenox ( on hold as noted above; will resume after the procedures) Code Status: FULL CODE Discussed Condition With: RN AND PT Discharge Planning: Patient will need rehab on discharge. Case management assisting with SNF placement, [facility] following Son, ICU PA, requests regular updates. Hoping for acceptance to [facility] (3) Respiratory failure Qualifiers: Chronicity: acute Respiratory failure complication: hypoxia Qualified Code(s ): J96.01 - Acute respiratory failure with hypoxia
[2018-04-16] MEDS: Dextrose 5%/NaCl 0.9% Inj 1,000 ML IV.CONT SCH (14:12)
--- NOTE | 2018-04-16 17:32 | P.PN ---
Subjective Interval history: Alert and breathing better. On FIO2 30 %. Has a New G J tube, and a # 8 Fenestrated Trach now. Physical Exam Vital signs: Vital Signs 04/15/18 17:54 04/15/18 20:00 04/16/18 00:00 Temperature 97 F L 97.5 F L Pulse Rate 61 61 Respiratory Rate 16 16 Blood Pressure 101/51 L 99/51 L Pulse Oximetry 95 98 97 04/16/18 04:00 04/16/18 10:44 04/16/18 15:41 Temperature 97.4 F L Pulse Rate 65 65 Respiratory Rate 16 16 Blood Pressure 98/51 L Pulse Oximetry 99 99 Intake & Output 04/15/18 04/16/18 04/16/18 18:59 06:59 18:59 Intake Total 1195 / 1195 1000 / 1000 Output Total 660 / 660 775 / 775 Balance 535 / 535 -775 / -775 1000 / 1000 Weight 64.2 kg Intake: IV 1000 / 1000 1000 / 1000 D5W/Normal Saline Inj 1,000 ML 1000 / 1000 1000 / 1000 @ 40 mls/hr IV.CONT .Q24H [facility] Rx#:[id number] Oral 20 / 20 Tube Feeding 55 / 55 Water Bolus Amount 120 / 120 Output: Urine 300 / 300 350 / 350 Gastric Drainage 360 / 360 425 / 425 G Tube 360 / 360 425 / 425 Other: # Voids 1 1 Date of Last Bowel Movement 04/14/18 04/14/18 04/16/18 # Bowel Movements 0 Narrative: Elderly W/F Alert and awake GENERAL: Emaciated looking SKIN: Warm and dry. HEAD: Atraumatic. Normocephalic. EYES: Pupils equal and round. No scleral icterus. No injection or drainage. ENT: No nasal bleeding or discharge. Mucous membranes pink and moist. NECK: Trachea midline. No JVD. Trach tube noted. CARDIOVASCULAR: Regular rate and rhythm. S1, S2 NO S3 OR SR RESPIRATORY: No accessory muscle use. few basal crackles. Breath sounds equal bilaterally. GASTROINTESTINAL: Abdomen soft, non-tender, nondistended. Hepatic and splenic margins not palpable. G-J TUBE IN PLACE MUSCULOSKELETAL: Extremities without clubbing, cyanosis, or edema. No obvious deformities. NEUROLOGICAL: Awake and alert. No obvious cranial nerve deficits. Motor grossly within normal limits. Cannot talk due to trach in. PSYCHIATRIC: Appropriate mood and affect. - Urinary Catheter Management Female External Cath placed during this visit: no Indwelling Urethral Catheter Cath placed during this visit: yes, but has since been removed by the nurse Reason for continuing: Hourly intake/output Insertion date: 03/06/18 Insertion time: 18:00 Removal date: 03/10/18 Removal time: 17:00 Results - Labs CBC & Chem 7: 04/13/18 06:24 04/16/18 08:09 Laboratory Results - last 24 hr 04/16/18 08:09 Sodium 140 Potassium 4.9 Chloride 106 Carbon Dioxide 23.9 Anion Gap 10 BUN 33 H Creatinine 1.28 H Estimated GFR 41 L Random Glucose 111 H Calcium 8.7 - Imaging Impressions Chest X-Ray 04/16/18 00:00 CONCLUSION: Negative examination. - Procedures SP G-J EXCHANGE BY IR 04-15 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 - Malignant neoplasm of larynx, unspecified Status: Acute (3) Supraglottic stenosis Code(s): J38.6 - Stenosis of larynx Status: Acute (4) Status post radiation therapy Code(s): Z92.3 - Personal history of irradiation Status: Acute (5) Barretts esophagus Code(s): K22.70 - Rendon's esophagus without dysplasia Status: Acute (6) Dyspnea Code(s): R06.00 - Dyspnea, unspecified Status: Acute (7) Aspiration pneumonia Code(s): J69.0 - Pneumonitis due to inhalation of food and vomit Status: Acute (8) Aspiration into airway Code(s): T17.908A - Unspecified foreign body in respiratory tract, part unspecified causing other injury, initial encounter Status: Acute (9) DVT (deep venous thrombosis) Code(s): I82.409 - Acute embolism and thrombosis of unspecified deep veins of unspecified lower extremity Status: Acute (10) Myelodysplasia (myelodysplastic syndrome) Code(s): D46.9 - Myelodysplastic syndrome, unspecified Status: Acute - Plan 1. Cont on T Collar 28 % FIO2 all the time. 2. Cont Trach care and lavage PRN. 3. Continue Duo nebs q6h 4. Use PM valve to talk prn 5. PT and OT 6. Cont levsin .125 mg TID S/L PRN 7. Tube feeds at 60 CC. 8. Antibiotics per ID (7) Aspiration pneumonia Qualifiers: Aspiration pneumonia type: unspecified Laterality: unspecified laterality Lung location: unspecified part of lung Qualified Code(s): J69.0 - Pneumonitis due to inhalation of food and vomit
[2018-04-16] MEDS: Lactobacillus Acidophilus/L. Spores Tablet J-TUBE SCH (18:22)
[2018-04-16] MEDS: buPROPion 75 MG Tablet J-TUBE SCH (21:28)
[2018-04-16] MEDS: Ascorbic Acid 500 MG Tablet J-TUBE SCH (21:28)
[2018-04-17] MEDS: Pantoprazole Inj 40 MG Vial IV.PUSH SCH ×2 (01:18→14:30)
[2018-04-17] MEDS: Levothyroxine 100 MCG Tablet J-TUBE SCH (06:19)
[2018-04-17 07:17] LABS: Baso % (Auto) 0.1 % (0.0-2.0); Eos # (Auto) 0.2 th/mm3 (0.0-0.4); Eos % (Auto) 3.3 % (0.0-4.0); Hematocrit 24.1 % (35.0-46.0); Lymph # (Auto) 0.9 th/mm3 (1.0-4.8); Mean Corpuscular Hemoglobin 28.2 pg (27.0-34.0); Mean Corpuscular Volume 85.6 fL (80.0-100.0); Mean Platelet Volume 9.6 fL (7.0-11.0); Mono # (Auto) 0.7 th/mm3 (0.0-0.9); Mono % (Auto) 10.6 % (0.0-8.0); Neut # (Auto) 4.6 th/mm3 (1.8-7.7); Platelet Count 182 th/mm3 (150-450); Red Blood Count 2.82 mil/mm3 (4.00-5.30); Red Cell Distribution Width 18.8 % (11.6-17.2); White Blood Count 6.4 th/mm3 (4.0-11.0)
[2018-04-17 07:43] LABS: Albumin 2.1 g/dL (3.4-5.0); Anion Gap 10 meq/L (5-15); Aspartate Aminotransferase 19 U/L (15-37); Blood Urea Nitrogen 38 mg/dL (7-18); Calcium 8.1 mg/dL (8.5-10.1); Carbon Dioxide 22.7 meq/L (21.0-32.0); Chloride 108 meq/L (98-107); Glomerular Filtration Rate 41 mL/min (>89); Glucose,Random 112 mg/dL (74-106); Magnesium 2.1 mg/dL (1.5-2.5); Potassium 4.7 meq/L (3.5-5.1); Sodium 141 meq/L (136-145)
[2018-04-17 07:45] LABS: Alanine Aminotransferase 22 U/L (10-53); Alkaline Phosphatase 96 U/L (45-117); Phosphorus 4.7 mg/dL (2.5-4.9); Total Protein 6.1 g/dL (6.4-8.2)
[2018-04-17 08:15] LABS: Blast Cells 2 % (0-0); Eosinophils 4 % (0-4); Lymphocytes 16 % (9-44); Monocytes 6 % (0-8); Myelocytes 4 % (0-0)
[2018-04-17 08:16] LABS: Ovalocytes 1+; Platelet Estimate Normal (Normal); Platelet Morphology Normal (Normal)
[2018-04-17] MEDS: Lactobacillus Acidophilus/L. Spores Tablet J-TUBE SCH ×3 (09:06→17:23)
[2018-04-17] MEDS: buPROPion 75 MG Tablet J-TUBE SCH ×2 (09:07→20:27)
[2018-04-17] MEDS: Morphine Sulfate Oral Liq 10 MG/0.5 ML Syringe SL PRN ×2 (09:07→17:23)
[2018-04-17] MEDS: Enoxaparin Inj 80 MG/0.8 ML Syringe SQ SCH ×2 (09:09→20:36)
[2018-04-17] MEDS: Potassium Chloride 25 MEQ Effervescent Tablet J-TUBE SCH (09:09)
[2018-04-17] MEDS: Ascorbic Acid 500 MG Tablet J-TUBE SCH ×2 (09:11→20:26)
--- NOTE | 2018-04-17 11:38 | P.PN ---
Subjective Interval history: awake and in no distress. On a T bar 28 % Tolerates feeds. Physical Exam Vital signs: Vital Signs 04/16/18 12:00 04/16/18 15:41 04/16/18 16:00 Temperature 98.9 F 98.3 F Pulse Rate 76 65 98 H Respiratory Rate 12 16 14 Blood Pressure 112/87 124/83 Pulse Oximetry 97 95 04/16/18 20:00 04/17/18 00:00 04/17/18 04:00 Temperature 99 F 97.6 F Pulse Rate 82 76 Respiratory Rate 20 20 16 Blood Pressure 125/56 L 99/49 L Pulse Oximetry 100 99 04/17/18 11:01 Temperature Pulse Rate Respiratory Rate Blood Pressure Pulse Oximetry 99 Intake & Output 04/16/18 04/17/18 04/17/18 18:59 06:59 18:59 Intake Total 1680 / 1680 585 / 585 Output Total 726 / 726 Balance 1680 / 1680 -141 / -141 Weight 63.2 kg Intake: IV 1000 / 1000 D5W/Normal Saline Inj 1,000 ML 1000 / 1000 @ 40 mls/hr IV.CONT .Q24H [facility] Rx#:[id number] Tube Feeding 200 / 200 225 / 225 Tube Irrigant 240 / 240 Water Bolus Amount 120 / 120 Other 480 / 480 Output: Stool 1 / 1 Urine/Stool Mix 200 / 200 Emesis 100 / 100 Gastric Drainage 425 / 425 G Tube 425 / 425 J Tube 0 / 0 Other: Other Intake Source Saline Solution # Voids 5 3 # Incontinent Voids 3 Date of Last Bowel Movement 04/16/18 04/16/18 # Bowel Movements 0 # Incontinent Bowel Movements 2 # Emeses 2 Narrative: Elderly W/F Alert and Oriented. GENERAL: Emaciated looking SKIN: Warm and dry. HEAD: Atraumatic. Normocephalic. EYES: Pupils equal and round. No scleral icterus. No injection or drainage. ENT: No nasal bleeding or discharge. Mucous membranes pink and moist. NECK: Trachea midline. No JVD. Trach tube noted. CARDIOVASCULAR: Regular rate and rhythm. S1, S2 NO S3 OR SR RESPIRATORY: No accessory muscle use. Has few basal crackles. Breath sounds equal bilaterally. GASTROINTESTINAL: Abdomen soft, non-tender, nondistended. Hepatic and splenic margins not palpable. G-J TUBE IN PLACE MUSCULOSKELETAL: Extremities without clubbing, cyanosis, or edema. No obvious deformities. NEUROLOGICAL: Awake and alert. No obvious cranial nerve deficits. Motor grossly within normal limits. PSYCHIATRIC: Depressed mood and affect. - Urinary Catheter Management Female External Cath placed during this visit: no Indwelling Urethral Catheter Cath placed during this visit: yes, but has since been removed by the nurse Reason for continuing: Hourly intake/output Insertion date: 03/06/18 Insertion time: 18:00 Removal date: 03/10/18 Removal time: 17:00 Results - Labs CBC & Chem 7: 04/17/18 06:30 04/17/18 06:30 Laboratory Results - last 24 hr 04/17/18 04/17/18 06:30 06:30 WBC 6.4 RBC 2.82 L Hgb 8.0 L Hct 24.1 L MCV 85.6 MCH 28.2 MCHC 33.0 RDW 18.8 H Plt Count 182 MPV 9.6 Prelim Diff (Auto) Slide review pending Neut % (Auto) 72.0 H Lymph % (Auto) 14.0 [place] % (Auto) 10.6 H Eos % (Auto) 3.3 Baso % (Auto) 0.1 Neut # (Auto) 4.6 Lymph # (Auto) 0.9 L [place] # (Auto) 0.7 Eos # (Auto) 0.2 Baso # (Auto) 0.0 WBC Differential Manual diff final Seg Neuts % (Manual) 58 Band Neuts % (Manual) 10 H Lymphocytes % (Manual) 16 Monocytes % (Manual) 6 Eosinophils % (Manual) 4 Myelocytes % (Man) 4 H Blast Cells % (Manual) 2 H Abs Neuts (Manual) 4.6 Differential Comment . Platelet Estimate Normal Platelet Morphology Normal Ovalocytes 1+ H Sodium 141 Potassium 4.7 Chloride 108 H Carbon Dioxide 22.7 Anion Gap 10 BUN 38 H Creatinine 1.28 H Estimated GFR 41 L Random Glucose 112 H Calcium 8.1 L Phosphorus 4.7 Magnesium 2.1 Total Bilirubin 0.3 AST 19 ALT 22 Alkaline Phosphatase 96 Total Protein 6.1 L Albumin 2.1 L - Procedures SP G-J EXCHANGE BY IR 04-15 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 - Malignant neoplasm of larynx, unspecified Status: Acute (3) Supraglottic stenosis Code(s): J38.6 - Stenosis of larynx Status: Acute (4) Status post radiation therapy Code(s): Z92.3 - Personal history of irradiation Status: Acute (5) Barretts esophagus Code(s): K22.70 - Rendon's esophagus without dysplasia Status: Acute (6) Dyspnea Code(s): R06.00 - Dyspnea, unspecified Status: Acute (7) Aspiration pneumonia Code(s): J69.0 - Pneumonitis due to inhalation of food and vomit Status: Acute (8) Aspiration into airway Code(s): T17.908A - Unspecified foreign body in respiratory tract, part unspecified causing other injury, initial encounter Status: Acute (9) DVT (deep venous thrombosis) Code(s): I82.409 - Acute embolism and thrombosis of unspecified deep veins of unspecified lower extremity Status: Acute (10) Myelodysplasia (myelodysplastic syndrome) Code(s): D46.9 - Myelodysplastic syndrome, unspecified Status: Acute - Plan 1. Cont on T Collar 28 % FIO2 all the time. 2. Cont Trach care and lavage PRN. 3. Continue Duo nebs q6h 4. Use PM valve to talk prn 5. PT and OT 6. Labs on Saturday 7. Tube feeds at 60 CC. (7) Aspiration pneumonia Qualifiers: Aspiration pneumonia type: unspecified Laterality: unspecified laterality Lung location: unspecified part of lung Qualified Code(s): J69.0 - Pneumonitis due to inhalation of food and vomit
--- NOTE | 2018-04-17 16:20 | P.PN ---
Subjective Interval history: Stable in her bedroom on her chronic condition, continue T Collar 28% FIO2 all times, follow commands. Discussed with nurse Miss Boudreaux will remove IV fluids, William had decreased Hemoglobin will follow off IV fluids could be dilutional Physical Exam Vital signs: Vital Signs 04/16/18 20:00 04/17/18 00:00 04/17/18 04:00 Temperature 99 F 97.6 F Pulse Rate 82 76 Respiratory Rate 20 20 16 Blood Pressure 125/56 L 99/49 L Pulse Oximetry 100 99 04/17/18 09:38 04/17/18 11:01 Temperature Pulse Rate Respiratory Rate 18 Blood Pressure Pulse Oximetry 99 Intake & Output 04/16/18 04/17/18 04/17/18 18:59 06:59 18:59 Intake Total 1680 / 1680 585 / 585 Output Total 726 / 726 Balance 1680 / 1680 -141 / -141 Weight 63.2 kg Intake: IV 1000 / 1000 D5W/Normal Saline Inj 1,000 ML 1000 / 1000 @ 40 mls/hr IV.CONT .Q24H [facility] Rx#:[id number] Tube Feeding 200 / 200 225 / 225 Tube Irrigant 240 / 240 Water Bolus Amount 120 / 120 Other 480 / 480 Output: Stool 1 / 1 Urine/Stool Mix 200 / 200 Emesis 100 / 100 Gastric Drainage 425 / 425 G Tube 425 / 425 J Tube 0 / 0 Other: Other Intake Source Saline Solution # Voids 5 3 # Incontinent Voids 3 Date of Last Bowel Movement 04/16/18 04/16/18 # Bowel Movements 0 # Incontinent Bowel Movements 2 # Emeses 2 Narrative: Elderly W/F Alert and awake GENERAL: AWAK AND ALERT FOLLOWS COMMANDS SKIN: Warm and dry. HEAD: Atraumatic. Normocephalic. EYES: Pupils equal and round. No scleral icterus. No injection or drainage. ENT: No nasal bleeding or discharge. Mucous membranes pink and moist. NECK: Trachea midline. No JVD. Trach tube noted. CARDIOVASCULAR: Regular rate and rhythm. S1, S2 NO S3 OR SR RESPIRATORY: No accessory muscle use. few basal crackles. Breath sounds equal bilaterally. COARSE BS BL GASTROINTESTINAL: Abdomen soft, non-tender, nondistended. Hepatic and splenic margins not palpable. G-J TUBE IN PLACE MUSCULOSKELETAL: Extremities without clubbing, cyanosis, or edema. No obvious deformities. NEUROLOGICAL: Awake and alert. No obvious cranial nerve deficits. Motor grossly within normal limits. Cannot talk due to trach in. PSYCHIATRIC: Appropriate mood and affect. - Urinary Catheter Management Female External Cath placed during this visit: no Indwelling Urethral Catheter Cath placed during this visit: yes, but has since been removed by the nurse Reason for continuing: Hourly intake/output Insertion date: 03/06/18 Insertion time: 18:00 Removal date: 03/10/18 Removal time: 17:00 Results - Labs CBC & Chem 7: 04/17/18 06:30 04/17/18 06:30 Laboratory Results - last 24 hr 04/17/18 04/17/18 06:30 06:30 WBC 6.4 RBC 2.82 L Hgb 8.0 L Hct 24.1 L MCV 85.6 MCH 28.2 MCHC 33.0 RDW 18.8 H Plt Count 182 MPV 9.6 Prelim Diff (Auto) Slide review pending Neut % (Auto) 72.0 H Lymph % (Auto) 14.0 Towns % (Auto) 10.6 H Eos % (Auto) 3.3 Baso % (Auto) 0.1 Neut # (Auto) 4.6 Lymph # (Auto) 0.9 L Towns # (Auto) 0.7 Eos # (Auto) 0.2 Baso # (Auto) 0.0 WBC Differential Manual diff final Seg Neuts % (Manual) 58 Band Neuts % (Manual) 10 H Lymphocytes % (Manual) 16 Monocytes % (Manual) 6 Eosinophils % (Manual) 4 Myelocytes % (Man) 4 H Blast Cells % (Manual) 2 H Abs Neuts (Manual) 4.6 Differential Comment . Platelet Estimate Normal Platelet Morphology Normal Ovalocytes 1+ H Sodium 141 Potassium 4.7 Chloride 108 H Carbon Dioxide 22.7 Anion Gap 10 BUN 38 H Creatinine 1.28 H Estimated GFR 41 L Random Glucose 112 H Calcium 8.1 L Phosphorus 4.7 Magnesium 2.1 Total Bilirubin 0.3 AST 19 ALT 22 Alkaline Phosphatase 96 Total Protein 6.1 L Albumin 2.1 L - Imaging Tube Change 04/15/18 00:00 CONCLUSION: 1. Uncomplicated exchange of malpositioned gastrojejunostomy catheter, as above.. Chest X-Ray 04/16/18 00:00 CONCLUSION: Negative examination. - Procedures SP G-J EXCHANGE BY IR 04-15 Assessment and Plan - Assessment (1) Acute adjustment disorder with depressed mood Code(s): F43.21 - Adjustment disorder with depressed mood Status: Acute (2) Dysphasia Code(s): R47.02 - Dysphasia Status: Acute (3) Respiratory failure Code(s): J96.90 - Respiratory failure, unspecified, unspecified whether with hypoxia or hypercapnia Status: Acute (4) Protein-calorie malnutrition, severe Code(s): E43 - Unspecified severe protein-calorie malnutrition Status: Chronic (5) Laryngeal squamous cell carcinoma Code(s): C32.9 - Malignant neoplasm of larynx, unspecified Status: Acute (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 . Acute on chronic respiratory failurecurrently improving and resolved on trach with pulmonology following. 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 Diarrhea Improved on PEG Vancomycin removed Laxatives remove Cholestyramine GJ tube malfunction/malpositioning - reconsulted GI - Dr. Cataaln. KUB confirmed GJ tube not in place. - IR consulted to reposition GJ tube. IR EXCHANGED G-J TUBEON 04-15 PEG site infection- resolved - Culture + for MDRO, Pseudomonas and MRSA - ID was consulted - Completed course of Avicaz and vancomycin Myelodysplastic syndrome with anemia and thrombocytopenia - Heme/onc was consulted - S/P bone marrow biopsy 03/31 - Not a candidate for chemo - Monitor CBC periodically, - Transfuse as needed, if Hb<7 or patient symptomatic RLE DVT - Continue Lovenox ( on hold for possible procedures- as mentioned above). RESTART LOVENOX Failure to thrive, protein energy malnutrition - Patient with severe pharyngeal dysphagia, esophageal stricture - G/J tube in place flush with 60 cc free water every 8 hours and Vital 1.5 at 55/hr per nutrition recs - G-tube to gravity, reverse Trendelenburg while in bed Chronic systolic heart failure - 2D echo 02/23 showing EF 35% with anterior septal hypokinesis and biatrial dilation - Patient euvolemic on exam today - Pt would benefit from an SNEHA-I or ARB as well as spironolactone but BPs have been borderline hypotensive so will hold off Hypothyroidism - Continue home Levothyroxine Adjustment disorder with depression - Continue Lexapro and Wellbutrin Coccygeal wound- stable - Wound care following - Position changes GERD, h/o Barretts - Continue PPI DVT prophylaxis: On Lovenox ( on hold as noted above; will resume after the procedures) Code Status: Full code Discussed Condition With: patient and nurse Miss Boudreaux Discharge Planning: Patient will need rehab on discharge. Case management assisting with SNF placement, [facility] following Son, ICU PA, requests regular updates. Hoping for acceptance to [facility] (3) Respiratory failure Qualifiers: Chronicity: acute Respiratory failure complication: hypoxia Qualified Code(s ): J96.01 - Acute respiratory failure with hypoxia
[2018-04-18] MEDS: Levothyroxine 100 MCG Tablet J-TUBE SCH (06:01)
[2018-04-18] MEDS: Pantoprazole Inj 40 MG Vial IV.PUSH SCH ×2 (06:01→13:06)
[2018-04-18 06:23] LABS: Hematocrit 23.9 % (35.0-46.0); Mean Corpuscular HGB Conc 33.3 % (32.0-36.0); Mean Corpuscular Hemoglobin 28.8 pg (27.0-34.0); Mean Corpuscular Volume 86.3 fL (80.0-100.0); Mean Platelet Volume 9.6 fL (7.0-11.0); Platelet Count 178 th/mm3 (150-450); Red Blood Count 2.77 mil/mm3 (4.00-5.30); Red Cell Distribution Width 18.7 % (11.6-17.2); White Blood Count 5.4 th/mm3 (4.0-11.0)
[2018-04-18 06:47] LABS: Calcium 8.6 mg/dL (8.5-10.1); Carbon Dioxide 22.2 meq/L (21.0-32.0); Potassium 4.9 meq/L (3.5-5.1)
[2018-04-18] MEDS: Enoxaparin Inj 80 MG/0.8 ML Syringe SQ SCH (08:30)
[2018-04-18] MEDS: buPROPion 75 MG Tablet J-TUBE SCH (08:31)
[2018-04-18] MEDS: Lactobacillus Acidophilus/L. Spores Tablet J-TUBE SCH ×2 (08:31→13:06)
[2018-04-18] MEDS: Potassium Chloride 25 MEQ Effervescent Tablet J-TUBE SCH (08:31)
[2018-04-18] MEDS: Glycopyrrolate 0.2 MG/ML Vial IV.PUSH PRN (08:31)
[2018-04-18] MEDS: Ascorbic Acid 500 MG Tablet J-TUBE SCH (08:31)
[2018-04-18 08:55] LABS: Blast Cells 2 % (0-0); Eosinophils 2 % (0-4); Lymphocytes 7 % (9-44); Metamyelocytes 3 % (0-1); Monocytes 5 % (0-8); Ovalocytes 1+; Platelet Estimate Normal (Normal)
[2018-04-18 08:56] LABS: Platelet Morphology Normal (Normal)
--- NOTE | 2018-04-18 08:56 | P.PN ---
Subjective Interval history: 04/18: Patient seen in her bedroom, already seen by insurance specialist history of Head and neck cancer diagnosed initially 2014, has Myelodysplasia no candidate for Chemotherapy, because Hemoglobin is low will transfuse one unit of PRBCs. recommended to transfer to Rehab facility in house. will be discharge and continue same medicines at Rehab. no nausea, vomit or diarrhea. Physical Exam Vital signs: Vital Signs 04/17/18 09:38 04/17/18 11:01 04/17/18 12:00 Temperature 97.1 F L Pulse Rate 59 L Respiratory Rate 18 22 Blood Pressure 100/60 Pulse Oximetry 99 97 04/17/18 16:00 04/17/18 18:00 04/17/18 20:00 Temperature 97.2 F L 97.5 F L Pulse Rate 70 75 Respiratory Rate 18 18 20 Blood Pressure 92/54 L 106/53 L Pulse Oximetry 97 99 04/17/18 23:31 04/18/18 00:00 04/18/18 04:00 Temperature 96.7 F L 96.9 F L Pulse Rate 74 80 Respiratory Rate 20 20 Blood Pressure 104/51 L 94/56 L Pulse Oximetry 99 96 95 Intake & Output 04/17/18 04/18/18 04/18/18 18:59 06:59 18:59 Intake Total 2060 / 2060 1060 / 1060 Output Total 1100 / 1100 650 / 650 Balance 960 / 960 410 / 410 Weight 64.7 kg Intake: IV 1000 / 1000 D5W/Normal Saline Inj 1,000 ML 1000 / 1000 @ 40 mls/hr IV.CONT .Q24H [facility] Rx#:[id number] Oral 100 / 100 100 / 100 Tube Feeding 660 / 660 660 / 660 Tube Irrigant 300 / 300 Water Bolus Amount 300 / 300 Output: Urine 200 / 200 Gastric Drainage 900 / 900 650 / 650 G Tube 900 / 900 650 / 650 Other: # Voids 1 # Incontinent Voids 3 Date of Last Bowel Movement 04/16/18 04/16/18 Narrative: Elderly W/F Alert and awake GENERAL: AWAK AND ALERT FOLLOWS COMMANDS SKIN: Warm and dry. HEAD: Atraumatic. Normocephalic. EYES: Pupils equal and round. No scleral icterus. No injection or drainage. ENT: No nasal bleeding or discharge. Mucous membranes pink and moist. NECK: Trachea midline. No JVD. Trach tube noted. CARDIOVASCULAR: Regular rate and rhythm. S1, S2 NO S3 OR SR RESPIRATORY: No accessory muscle use. few basal crackles. Breath sounds equal bilaterally. COARSE BS BL GASTROINTESTINAL: Abdomen soft, non-tender, nondistended. Hepatic and splenic margins not palpable. G-J TUBE IN PLACE MUSCULOSKELETAL: Extremities without clubbing, cyanosis, or edema. No obvious deformities. NEUROLOGICAL: Awake and alert. No obvious cranial nerve deficits. Motor grossly within normal limits. Cannot talk due to trach in. PSYCHIATRIC: Appropriate mood and affect. - Urinary Catheter Management Female External Cath placed during this visit: no Indwelling Urethral Catheter Cath placed during this visit: yes, but has since been removed by the nurse Reason for continuing: Hourly intake/output Insertion date: 03/06/18 Insertion time: 18:00 Removal date: 03/10/18 Removal time: 17:00 Results - Labs CBC & Chem 7: 04/18/18 05:29 04/18/18 05:29 Laboratory Results - last 24 hr 04/18/18 04/18/18 05:29 05:29 WBC 5.4 RBC 2.77 L Hgb 8.0 L Hct 23.9 L MCV 86.3 MCH 28.8 MCHC 33.3 RDW 18.7 H Plt Count 178 MPV 9.6 Prelim Diff (Auto) Manual diff required Differential Comment . Sodium 139 Potassium 4.9 Chloride 106 Carbon Dioxide 22.2 Anion Gap 11 BUN 39 H Creatinine 1.19 H Estimated GFR 45 L Random Glucose 108 H Calcium 8.6 - Procedures SP G-J EXCHANGE BY IR 04-15 Assessment and Plan - Assessment (1) Acute adjustment disorder with depressed mood Code(s): F43.21 - Adjustment disorder with depressed mood Status: Acute (2) Dysphasia Code(s): R47.02 - Dysphasia Status: Acute (3) Respiratory failure Code(s): J96.90 - Respiratory failure, unspecified, unspecified whether with hypoxia or hypercapnia Status: Acute (4) Protein-calorie malnutrition, severe Code(s): E43 - Unspecified severe protein-calorie malnutrition Status: Chronic (5) Laryngeal squamous cell carcinoma Code(s): C32.9 - Malignant neoplasm of larynx, unspecified Status: Chronic (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 . Acute on chronic respiratory failurecurrently improving and resolved on trach with pulmonology following. 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 Diarrhea Improved on PEG Vancomycin removed Laxatives remove Cholestyramine GJ tube malfunction/malpositioning - reconsulted GI - Dr. Catalan. KUB confirmed GJ tube not in place. - IR consulted to reposition GJ tube. IR EXCHANGED G-J TUBEON 04-15 PEG site infection- resolved - Culture + for MDRO, Pseudomonas and MRSA - ID was consulted - Completed course of Avicaz and vancomycin Myelodysplastic syndrome with anemia and thrombocytopenia - Heme/onc was consulted - S/P bone marrow biopsy 03/31 - Not a candidate for chemo - Monitor CBC periodically, - seen by insurance specialist history of Head and neck cancer diagnosed initially 2014, has Myelodysplasia no candidate for Chemotherapy, because Hemoglobin is low will transfuse one unit of PRBCs. recommended to transfer to Rehab facility in house. RLE DVT - Continue Lovenox ( on hold for possible procedures- as mentioned above). RESTART LOVENOX Failure to thrive, protein energy malnutrition - Patient with severe pharyngeal dysphagia, esophageal stricture - G/J tube in place flush with 60 cc free water every 8 hours and Vital 1.5 at 55/hr per nutrition recs - G-tube to gravity, reverse Trendelenburg while in bed Chronic systolic heart failure - 2D echo 02/23 showing EF 35% with anterior septal hypokinesis and biatrial dilation - Patient euvolemic on exam today - Pt would benefit from an SNEHA-I or ARB as well as spironolactone but BPs have been borderline hypotensive so will hold off Hypothyroidism - Continue home Levothyroxine Adjustment disorder with depression - Continue Lexapro and Wellbutrin Coccygeal wound- stable - Wound care following - Position changes GERD, h/o Barretts - Continue PPI DVT prophylaxis: On Lovenox ( on hold as noted above; will resume after the procedures) Transfer to Inpatient Rehab. Code Status: Full code. Discussed Condition With: Patient and Nurse Miss Moreno Discharge Planning: Patient will need rehab on discharge. Case management assisting with SNF placement, [facility] following Son, ICU PA, requests regular updates. Hoping for acceptance to [facility] (3) Respiratory failure Qualifiers: Chronicity: acute Respiratory failure complication: hypoxia Qualified Code(s ): J96.01 - Acute respiratory failure with hypoxia
[2018-04-18] MEDS ORDERED: Acetaminophen 325 MG Tablet PO PRN (10:02)
[2018-04-18] MEDS ORDERED: Sodium Chlor 0.9% Inj 250 ML IV.SIG SCH (11:00)
--- NOTE | 2018-04-18 12:10 | P.PNONC ---
Subjective Interval history: Afebrile Patient sitting up in recliner chair at bedside Shakes head no when asked about pain or shortness of breath Objective Vital Signs/Intake & Output: Vital Signs 04/17/18 16:00 04/17/18 18:00 04/17/18 20:00 Temperature 97.2 F L 97.5 F L Pulse Rate 70 75 Respiratory Rate 18 18 20 Blood Pressure 92/54 L 106/53 L Pulse Oximetry 97 99 04/17/18 23:31 04/18/18 00:00 04/18/18 04:00 Temperature 96.7 F L 96.9 F L Pulse Rate 74 80 Respiratory Rate 20 20 Blood Pressure 104/51 L 94/56 L Pulse Oximetry 99 96 95 04/18/18 09:53 Temperature Pulse Rate Respiratory Rate Blood Pressure Pulse Oximetry 95 Intake & Output 04/17/18 04/18/18 04/18/18 18:59 06:59 18:59 Intake Total 2060 / 2060 1060 / 1060 Output Total 1100 / 1100 650 / 650 Balance 960 / 960 410 / 410 Weight 142 lb 10.225 oz Intake: IV 1000 / 1000 D5W/Normal Saline Inj 1,000 ML 1000 / 1000 @ 40 mls/hr IV.CONT .Q24H [facility] Rx#:[id number] Oral 100 / 100 100 / 100 Tube Feeding 660 / 660 660 / 660 Tube Irrigant 300 / 300 Water Bolus Amount 300 / 300 Output: Urine 200 / 200 Gastric Drainage 900 / 900 650 / 650 G Tube 900 / 900 650 / 650 Other: # Voids 1 # Incontinent Voids 3 Date of Last Bowel Movement 04/16/18 04/16/18 Result Diagrams: 04/18/18 05:29 04/18/18 05:29 Laboratory Results: Laboratory Results - last 24 hr 04/18/18 04/18/18 04/18/18 05:29 05:29 11:07 WBC 5.4 RBC 2.77 L Hgb 8.0 L Hct 23.9 L MCV 86.3 MCH 28.8 MCHC 33.3 RDW 18.7 H Plt Count 178 MPV 9.6 Prelim Diff (Auto) Manual diff required WBC Differential Manual diff final Seg Neuts % (Manual) 49 Band Neuts % (Manual) 28 H Lymphocytes % (Manual) 7 L Monocytes % (Manual) 5 Eosinophils % (Manual) 2 Basophils % (Manual) 4 H Metamyelocytes % (Man) 3 H Blast Cells % (Manual) 2 H Abs Neuts (Manual) 4.3 Differential Comment . Platelet Estimate Normal Platelet Morphology Normal Ovalocytes 1+ H Sodium 139 Potassium 4.9 Chloride 106 Carbon Dioxide 22.2 Anion Gap 11 BUN 39 H Creatinine 1.19 H Estimated GFR 45 L Random Glucose 108 H Calcium 8.6 Blood Type B Positive MTS Gel Crossmatch See Detail Medications: Active Medications Generic Name Dose Route Start Last Admin Trade Name Freq PRN Reason Stop Dose Admin Hydrocodone Bitart/Acetaminophen 1 tab 04/13/18 17:00 04/17/18 01:18 Laie 5/325 J-TUBE 1 tab Q4H PRN Administration PAIN 2-5 Hydrocodone Bitart/Acetaminophen 2 tab 04/13/18 17:00 04/17/18 20:27 Laie 5/325 J-TUBE 2 tab Q4H PRN Administration PAIN 6-10 Albuterol 1 ampul 03/15/18 11:09 04/13/18 18:46 Duoneb Neb (Prn) NEB 1 ampul Q2HR NEB PRN Administration DYSPNEA Albuterol 2.5 mg 03/07/18 00:57 04/16/18 15:40 Albuterol Neb (Prn) NEB 2.5 mg Q2HR NEB PRN Administration SHORTNESS OF BREATH/WHEEZING Ascorbic Acid 500 mg 04/13/18 21:00 04/18/18 08:31 Vitamin C J-TUBE 500 mg BID ANN Administration Bupropion HCl 75 mg 04/13/18 21:00 04/18/18 08:31 Wellbutrin J-TUBE 75 mg BID ANN Administration Cetirizine HCl 10 mg 04/13/18 21:00 04/17/18 20:27 Zyrtec J-TUBE 10 mg HS ANN Administration Enoxaparin Sodium 70 mg 03/28/18 21:00 04/18/18 08:30 Lovenox Inj SQ 70 mg Q12HR ANN Administration Escitalopram Oxalate 20 mg 04/14/18 09:00 04/18/18 08:31 Lexapro J-TUBE 20 mg DAILY ANN Administration Glycopyrrolate 0.4 mg 03/21/18 16:16 04/18/18 08:31 Robinul Inj IV.PUSH 0.4 mg Q8H PRN Administration thick secretions Hyoscyamine 0.125 mg 04/13/18 17:15 04/18/18 06:01 Levsin J-TUBE 0.125 mg Q6H ANN Administration Lactobacillus Acidophilus 1 tab 04/13/18 18:00 04/18/18 08:31 Lactinex J-TUBE 1 tab TID ANN Administration Levothyroxine Sodium 100 mcg 04/14/18 06:00 04/18/18 06:01 Synthroid J-TUBE 100 mcg DAILY@0600 ANN Administration Lorazepam 1 mg 04/10/18 23:00 04/15/18 15:14 Ativan Inj IV.PUSH 1 mg Q6H PRN Administration ANXIETY Morphine Sulfate 5 mg 04/15/18 08:30 04/17/18 17:23 Roxanol Liq SL 5 mg Q4H PRN Administration pain 2-10 Multivitamins 1 tab 04/14/18 09:00 04/18/18 08:31 Theragran J-TUBE 1 tab DAILY ANN Administration Pantoprazole Sodium 40 mg 03/21/18 14:00 04/18/18 06:01 Protonix Inj IV.PUSH 40 mg Q12H ANN Administration Potassium Bicarb/Potassium Chloride 25 meq 04/14/18 09:00 04/18/18 08:31 K-Lyte Cl Eff J-TUBE 25 meq DAILY ANN Administration Sodium Chloride 2 ml 03/07/18 09:00 04/18/18 08:31 Ns Flush IV.FLUSH 2 ml BID ANN Administration Sodium Chloride 2 ml 03/07/18 00:57 04/09/18 20:41 Ns Flush IV.FLUSH 2 ml PRN PRN Administration FLUSH AFTER USING IV ACCESS Vancomycin HCl 500 mg 04/13/18 18:00 04/18/18 08:30 Vancomycin Po J-TUBE 04/23/18 23:59 500 mg QID ANN Administration Zinc Sulfate 220 mg 04/14/18 09:00 04/18/18 08:31 Zinc-220 J-TUBE 220 mg DAILY ANN Administration Objective Remarks: GENERAL: Cachectic elderly female sitting up in recliner chair at bedside in no obvious distress SKIN: Pale, warm and dry. HEAD: Normocephalic. EYES: No scleral icterus. No injection or drainage. NECK: Supple, trachea midline. +Tracheostomy. CARDIOVASCULAR: Regular rate and rhythm without murmurs. RESPIRATORY: Anterior bilateral breath sounds few scattered rhonchi. Tracheostomy with T-tube in place GASTROINTESTINAL: Abdomen soft, tender, nondistended. PEG tube to LUQ. EXTREMITIES: No cyanosis, or edema. MUSCULOSKELETAL: Decreased muscle tone. NEUROLOGICAL: No obvious focal deficit. Awake & alert. Assessment/Plan - Plan Ms. Henson is a 73-year-old woman with history of head and neck cancer. She was initially diagnosed in 2015. Her followup has not been consistent. She is well known patient to Dr. Gopal Pineda, who saw her in January of this year for the anemia. Hematology/oncology is consulted again for the anemia. Plan: 1. Myelodysplasia, not a candidate for chemotherapy. 2. Hemoglobin trending down. Transfuse 1 unit packed red blood cells today. 3. Continue supportive care. - Attending Statement The exam, history, and the medical decision-making described in the above note were completed with the assistance of the mid-level provider. I reviewed and agree with the findings presented. I attest that I had a [id number]-[id number] encounter with the patient on the same day, and personally performed and documented my assessment and findings in the medical record. pt is more alert and awake. Hg drop to 8.0, give 1 unit of PRBC. [facility]
[2018-04-18] MEDS ORDERED: buPROPion 75 MG Tablet J-TUBE SCH (12:59)
[2018-04-18 14:01] VITALS: BP 118/54; PULSE 85; RESP 16; TEMP 98.7; O2SAT 97
--- NOTE | 2018-04-18 14:25 | P.DIET ---
Nutritional Evaluation Type of nutrition evaluation: follow-up Nutrition consult regarding: Tube Feeding Nutrition screening: [facility] [place] Objective - Diagnosis Respiratory Failure - Objective [place] body weight: 59 kg % IBW: 113 Body Weight Used for Calculations: Actual (Actual Body Wt 67kg(147-lb)) Energy Needs - Lower Range (kCal/kg): 25 Energy Needs - Upper Range (kCal/kg): 30 Lower Limit kCal/kg (kCals): 1,675 Upper Limit kCal/kg (kCals): 2,010 Lower Limit Protein Factor (Grams per Kg): 1.2 Upper Limit Protein Factor (Grams per Kg): 1.5 Lower Protein Needs (Protein): 80 Upper Protein Needs (Protein): 101 Dietitian Reviewed in Medical Record: Curent medications, Intake & Output, Labs , Medical history, Tube feeding Diet Order: TF'ing ONLY: Vital 1.5 @ goal rate 55ml/hr Objective Comments: PMH: Arthritis, Ralph's Esophagus, GERD, Hypothyroidism, Skin Cancer of forehead, Squamous cell carcinoma of larynx, Squamous cell carcinoma of supraglottis s/p laproscopic G-J tube placement 04/15/18 Meds include: Synthroid, Theragran Feeding - Current Tube Feeding Tube Feeding Product: Vital 1.5 Tube Feeding Method: Pump Tube Feeding Rate: 55 Tube Feeding Route: J/G tube Current kCals Provided by Tube Feedin,800 Current Protein Provided by Tube Feeding (gPRO): 81 Medications That Affect Tube Feeding Run Time: Synthroid Total Time Off: 2 hours Current Free H2O Provided (m/l): 917 Assessment Assessment: noted, diarrhea has gotten better. Pt. with +BM, +UOP but wts. now remain stable. Pt. continues on Synthroid. Recommend continuing Vital 1.5 @ 55mls/hr over 22 hours. Continue to monitor TFing tolerance and labs. Recommendations: 1. Recommend continuing Vital 1.5 @ 55mls/hr over 22 hours. 2. Continue to monitor TFing tolerance and labs. Dietitian to Monitor: Lab values, Glucose level, Intake & Output, Tube feeding tolerance, Weight change, Medical course
--- NOTE | 2018-04-18 19:26 | P.DS ---
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 Hooper and Dr. Pineda (completed March 2015) with followup imaging negative for residual disease (05/2015, 09/2015). She was recently admitted to [facility] hospitalist service on after she presented with anemia with hemoglobin of 6.3, dysphagia and failure to thrive. She previously had G/J tube that became dislodged in May and she had been drinking nutritional shakes at home but had progressive difficulty with swallowing and developed cachexia. Modified barium swallow confirmed aspiration and she underwent laparoscopic GJ placement [address] Kraus. She had been n.p.o. and receiving continuous jejunal tube feeds when she developed severe respiratory distress and hypoxia requiring intubation 02/22/18. She had obvious evidence of aspiration on intubation. CT neck showed no e/o laryngeal mass. She was evaluated by ENT and underwent laryngoscopy that showed no evidence of disease recurrence and findings were consistent with radiation induced scarring. She was extubated 02/25. She was ultimately discharged to retirement 03/03/18. She again presented to [facility] ED with respiratory failure. Reportedly sats were in the 50s upon their arrival. She was intubated at the scene. Reportedly a large amount of secretions suctioned out post intubation. White blood cell count was 14. She was hypotensive at [place] where she was administered 2 L normal saline bolus. ED physician then placed right femoral central line after unsuccessful placement right IJ central line. Levophed drip was started. Her son states he is a physician's assistant professor of criminal justice in the field of critical care and expresses frustration with recurrent respiratory failure. States she had jejunal tube feeds running at goal but had not taken anything p.o. Requests ENT reconsultation for recommendations for tracheostomy. DS: Diagnosis - Discharge Diagnosis (1) Acute adjustment disorder with depressed mood Status: Acute (2) Dysphasia Status: Acute (3) Respiratory failure Status: Acute (4) Protein-calorie malnutrition, severe Status: Chronic (5) Laryngeal squamous cell carcinoma Status: Chronic (6) Supraglottic stenosis Status: Acute (7) Aspiration into airway Status: Acute DS: Summary Hospital Course: 04/18: Patient seen in her bedroom, already seen by social problems specialist history of Head and neck cancer diagnosed initially 2014, has Myelodysplasia no candidate for Chemotherapy, because Hemoglobin is low will transfuse one unit of PRBCs. recommended to transfer to Rehab facility in house. will be discharge and continue same medicines at Rehab. no nausea, vomit or diarrhea. Assessment and Plan - Assessment (1) Acute adjustment disorder with depressed mood Code(s): F43.21 - Adjustment disorder with depressed mood Status: Acute (2) Dysphasia Code(s): R47.02 - Dysphasia Status: Acute (3) Respiratory failure Code(s): J96.90 - Respiratory failure, unspecified, unspecified whether with hypoxia or hypercapnia Status: Acute (4) Protein-calorie malnutrition, severe Code(s): E43 - Unspecified severe protein-calorie malnutrition Status: Chronic (5) Laryngeal squamous cell carcinoma Code(s): C32.9 - Malignant neoplasm of larynx, unspecified Status: Chronic (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 . Acute on chronic respiratory failurecurrently improving and resolved on trach with pulmonology following. 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 Diarrhea Improved on PEG Vancomycin removed Laxatives remove Cholestyramine GJ tube malfunction/malpositioning - reconsulted GI - Dr. Catalan. KUB confirmed GJ tube not in place. - IR consulted to reposition GJ tube. IR EXCHANGED G-J TUBEON 04-15 PEG site infection- resolved - Culture + for MDRO, Pseudomonas and MRSA - ID was consulted - Completed course of Avicaz and vancomycin Myelodysplastic syndrome with anemia and thrombocytopenia - Heme/onc was consulted - S/P bone marrow biopsy 03/31 - Not a candidate for chemo - Monitor CBC periodically, - seen by social problems specialist history of Head and neck cancer diagnosed initially 2014, has Myelodysplasia no candidate for Chemotherapy, because Hemoglobin is low will transfuse one unit of PRBCs. recommended to transfer to Rehab facility in house. RLE DVT - Continue Lovenox ( on hold for possible procedures- as mentioned above). RESTART LOVENOX Failure to thrive, protein energy malnutrition - Patient with severe pharyngeal dysphagia, esophageal stricture - G/J tube in place flush with 60 cc free water every 8 hours and Vital 1.5 at 55/hr per nutrition recs - G-tube to gravity, reverse Trendelenburg while in bed Chronic systolic heart failure - 2D echo 02/23 showing EF 35% with anterior septal hypokinesis and biatrial dilation - Patient euvolemic on exam today - Pt would benefit from an SNEHA-I or ARB as well as spironolactone but BPs have been borderline hypotensive so will hold off Hypothyroidism - Continue home Levothyroxine Adjustment disorder with depression - Continue Lexapro and Wellbutrin Coccygeal wound- stable - Wound care following - Position changes GERD, h/o Barretts - Continue PPI DVT prophylaxis: On Lovenox ( on hold as noted above; will resume after the procedures) Transfer to Inpatient Rehab. Code Status: Full code. Discussed Condition With: Patient and Nurse Miss Moreno Discharge Planning: discharge to inpatient rehab - Time Spent with Patient Total time spent providing and/or coordinating discharge services: Greater than 30 minutes - Quality: VTE Deep Vein Thrombosis/Pulmonary Embolism Present on Admission: No Exam Vital signs: Vital Signs 04/17/18 20:00 04/17/18 23:31 04/18/18 00:00 Temperature 97.5 F L 96.7 F L Pulse Rate 75 74 Respiratory Rate 20 20 Blood Pressure 106/53 L 104/51 L Pulse Oximetry 99 99 96 04/18/18 04:00 04/18/18 08:00 04/18/18 09:53 Temperature 96.9 F L 98.4 F Pulse Rate 80 72 Respiratory Rate 20 16 Blood Pressure 94/56 L 110/78 Pulse Oximetry 95 97 95 04/18/18 12:00 04/18/18 13:09 04/18/18 13:27 Temperature 98.7 F 98.9 F 98.4 F Pulse Rate 76 86 82 Respiratory Rate 14 14 12 Blood Pressure 105/82 108/51 L 115/51 L Pulse Oximetry 98 95 95 04/18/18 13:45 Temperature 98.7 F Pulse Rate 85 Respiratory Rate 16 Blood Pressure 118/54 L Pulse Oximetry 97 Intake & Output 04/18/18 04/18/18 04/19/18 06:59 18:59 06:59 Intake Total 1060 / 1060 0 / 0 Output Total 650 / 650 Balance 410 / 410 0 / 0 Weight 64.7 kg Intake: Oral 100 / 100 Tube Feeding 660 / 660 Tube Irrigant 300 / 300 Intake (Blood Product) Amt 0 / 0 Rbc As-3 Leukoreduced Unit 0 / 0 [id number] Output: Gastric Drainage 650 / 650 G Tube 650 / 650 Other: # Incontinent Voids 3 Date of Last Bowel Movement 04/16/18 04/16/18 Narrative: Elderly W/F Alert and awake GENERAL: AWAK AND ALERT FOLLOWS COMMANDS SKIN: Warm and dry. HEAD: Atraumatic. Normocephalic. EYES: Pupils equal and round. No scleral icterus. No injection or drainage. ENT: No nasal bleeding or discharge. Mucous membranes pink and moist. NECK: Trachea midline. No JVD. Trach tube noted. CARDIOVASCULAR: Regular rate and rhythm. S1, S2 NO S3 OR SR RESPIRATORY: No accessory muscle use. few basal crackles. Breath sounds equal bilaterally. COARSE BS BL GASTROINTESTINAL: Abdomen soft, non-tender, nondistended. Hepatic and splenic margins not palpable. G-J TUBE IN PLACE MUSCULOSKELETAL: Extremities without clubbing, cyanosis, or edema. No obvious deformities. NEUROLOGICAL: Awake and alert. No obvious cranial nerve deficits. Motor grossly within normal limits. Cannot talk due to trach in. PSYCHIATRIC: Appropriate mood and affect. Results Procedures completed during hospitalization: SP G-J EXCHANGE BY IR 8 Labs on day of discharge: Labs from last 24 hours 04/18/18 04/18/18 04/18/18 11:07 05:29 05:29 WBC 5.4 RBC 2.77 L Hgb 8.0 L Hct 23.9 L MCV 86.3 MCH 28.8 MCHC 33.3 RDW 18.7 H Plt Count 178 MPV 9.6 Prelim Diff (Auto) Manual diff required WBC Differential Manual diff final Seg Neuts % (Manual) 49 Band Neuts % (Manual) 28 H Lymphocytes % (Manual) 7 L Monocytes % (Manual) 5 Eosinophils % (Manual) 2 Basophils % (Manual) 4 H Metamyelocytes % (Man) 3 H Blast Cells % (Manual) 2 H Abs Neuts (Manual) 4.3 Differential Comment . Platelet Estimate Normal Platelet Morphology Normal Ovalocytes 1+ H Sodium 139 Potassium 4.9 Chloride 106 Carbon Dioxide 22.2 Anion Gap 11 BUN 39 H Creatinine 1.19 H Estimated GFR 45 L Random Glucose 108 H Calcium 8.6 Blood Type B Positive Antibody Screen Negative MTS Gel Crossmatch See Detail - Impressions ITS Impressions Abdomen/Pelvis CT 03/15/18 00:00 CONCLUSION: 1. Small pleural effusions with compressive atelectasis. 2. Gastrostomy tube evident within normal bowel gas pattern by CT. The tip of the gastrostomy tube is in the antrum of the stomach. Liver Ultrasound 03/27/18 00:00 CONCLUSION: 1. Hepatomegaly with increased echotexture characteristic of steatosis or diffuse hepatocellular disease. 2. No evidence of discrete mass or biliary obstructive disease. 3. Status post cholecystectomy. Bone Marrow Biopsy w/ CT 03/31/18 00:00 CONCLUSION: 1. Uncomplicated CT guided bone marrow aspirate. 2. Uncomplicated CT guided bone marrow biopsy. Venous Doppler Study 03/31/18 00:00 CONCLUSION: 1. Extensive deep venous thrombosis again noted without significant change. Abdomen X-Ray 04/13/18 12:13 CONCLUSION: 1. The gastrojejunostomy catheter appears to be confined to the shape the stomach and may have been pulled back into the stomach which likely accounts for symptoms. May consider repeat radiograph with small amount of contrast injected through the jejunostomy port to confirm the findings. If displaced into the stomach, the gastrojejunostomy catheter will need to be repositioned under fluoroscopic guidance. Tube Change 04/15/18 00:00 CONCLUSION: 1. Uncomplicated exchange of malpositioned gastrojejunostomy catheter, as above.. Chest X-Ray 04/16/18 00:00 CONCLUSION: Negative examination. Discharge Plan - Discharge Disposition Patient Disposition: 63 Rehab Inpatient - Discharge Condition Condition: Stable - Discharge Order Discharge Orders: Discharge Order (Routine); Ordered 04/18/18 Ordered By: Maykel Mcclure Oncology Clear for Discharge (Routine); Ordered 04/03/18 Ordered By: Ruthann Covington - Discharge Details Anticipated Discharge Date: 04/18/18 - Physicians Team Primary Care Provider: Primary Care Janice Kimball Attending Provider: Maykel Mcclure Other Providers: Cristopher Damian MD ; Tyler Kunz MD ; Gee Marcelino MD ; [employer] ; [facility],Agency ; Jaskaran Catalan MD ; Olga Tejada MD ; [facility] ; Molina Gaxiola MD ; Gopal Pineda MD ; Maribell Canchola MD
--- NOTE | 2018-04-18 22:09 | P.PNREH ---
Subjective Interval history: Patient resting comfortably in bed. Nursing providing care. Patient denies any pain complaints. Denies any current shortness of breath at rest. Review of Systems other (As previously documented) Exam - Physical Examination Vital Signs / I&O: Vital Signs 04/17/18 23:31 04/18/18 00:00 04/18/18 04:00 Temperature 96.7 F L 96.9 F L Pulse Rate 74 80 Respiratory Rate 20 20 Blood Pressure 104/51 L 94/56 L Pulse Oximetry 99 96 95 04/18/18 08:00 04/18/18 09:53 04/18/18 12:00 Temperature 98.4 F 98.7 F Pulse Rate 72 76 Respiratory Rate 16 14 Blood Pressure 110/78 105/82 Pulse Oximetry 97 95 98 04/18/18 13:09 04/18/18 13:27 04/18/18 13:45 Temperature 98.9 F 98.4 F 98.7 F Pulse Rate 86 82 85 Respiratory Rate 14 12 16 Blood Pressure 108/51 L 115/51 L 118/54 L Pulse Oximetry 95 95 97 Intake & Output 04/18/18 04/18/18 04/19/18 06:59 18:59 06:59 Intake Total 1060 / 1060 0 / 0 Output Total 650 / 650 Balance 410 / 410 0 / 0 Weight 64.7 kg Intake: Oral 100 / 100 Tube Feeding 660 / 660 Tube Irrigant 300 / 300 Intake (Blood Product) Amt 0 / 0 Rbc As-3 Leukoreduced Unit 0 / 0 [id number] Output: Gastric Drainage 650 / 650 G Tube 650 / 650 Other: # Incontinent Voids 3 Date of Last Bowel Movement 04/16/18 04/16/18 Intake & Output 04/16/18 04/17/18 04/18/18 04/19/18 06:59 06:59 06:59 06:59 Intake Total 1195 / 1195 2265 / 2265 3120 / 3120 0 / 0 Output Total 1435 / 1435 726 / 726 1750 / 1750 Balance -240 / -240 1539 / 1539 1370 / 1370 0 / 0 Weight 64.2 kg 63.2 kg 64.7 kg General: No acute distress Respiratory: BS equal, Coarse breath sounds, Other (Trach with T piece at 28%) Gastrointestinal: Positive bowel sounds, Other (G-tube to gravity; J-tube feedings in place) Date of Last Bowel Movement: 04/16/18 Cardiovascular: Normal rate, Regular rhythm Psychiatric: Cooperative - Neurologic Orientation: oriented to: Self, Situation Neurologic: EOM (Tracks right and left), Other (Moves all extremities to command ; diffuse muscle atrophy throughout) Objective Laboratory Results - last 24 hr 04/18/18 04/18/18 04/18/18 05:29 05:29 11:07 WBC 5.4 RBC 2.77 L Hgb 8.0 L Hct 23.9 L MCV 86.3 MCH 28.8 MCHC 33.3 RDW 18.7 H Plt Count 178 MPV 9.6 Prelim Diff (Auto) Manual diff required WBC Differential Manual diff final Seg Neuts % (Manual) 49 Band Neuts % (Manual) 28 H Lymphocytes % (Manual) 7 L Monocytes % (Manual) 5 Eosinophils % (Manual) 2 Basophils % (Manual) 4 H Metamyelocytes % (Man) 3 H Blast Cells % (Manual) 2 H Abs Neuts (Manual) 4.3 Differential Comment . Platelet Estimate Normal Platelet Morphology Normal Ovalocytes 1+ H Sodium 139 Potassium 4.9 Chloride 106 Carbon Dioxide 22.2 Anion Gap 11 BUN 39 H Creatinine 1.19 H Estimated GFR 45 L Random Glucose 108 H Calcium 8.6 Blood Type B Positive Antibody Screen Negative MTS Gel Crossmatch See Detail Assessment and Plan (1) Weakness Status: Acute Code(s): R53.1 - Weakness (2) Dysphagia Status: Chronic Code(s): R13.10 - Dysphagia, unspecified Qualifiers: Dysphagia type: pharyngeal phase Qualified Code(s): R13.13 - Dysphagia, pharyngeal phase - Plan Assessment: 1. Medical complexity including dysphagia status post GJ tube placement 02/13/18 , respiratory failure status post tracheostomy placement 03/11/18 2. 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 Rendon's esophagus 4. GERD Recommendations: 1. Continue to mobilize with physical therapy. Patient is now minimal assistance of 2 for transfers and taking 3 steps with rolling walker. Tolerating up to bedside chair 2 hours per day.. Encourage up to seated position carefully monitoring skin and relieving pressure 2. Speech therapy has evaluated swallow and no additional intervention recommended at this time 3. Occupational therapy for independence with ADLs. Now minimal assistance for grooming 4. Anticipate patient will need inpatient care at discharge. [id number] review has been requested 5. Will continue to follow while hospitalized and at discharge is appropriate
== END 2018-04-18 16:10 ==
LOC: PHED 17:46 → PHEDA 20:21 → PHEDH 03-07 00:27 → HIMC 03-07 03:50 → H7ONC 03-20 10:39 → HIMC 03-21 15:35 → H7ONC 03-23 13:15
PROVIDERS: ADMIT Internal Medicine; ATTEND Internal Medicine
PROC: PANENDO (2018-03-21 14:07)

== ENCOUNTER 2018-04-23 18:22 | Inpatient (IN) ==
[2018-04-23] MEDS: Sodium Bicarbonate 8.4% Inj 75 MEQ in Sodium Chloride 0.45 % Inj 925 ML IV.CONT SCH (19:52)
[2018-04-23] MEDS ORDERED: Acetaminophen 325 MG Tablet PO PRN (20:59)
[2018-04-23] MEDS ORDERED: Hyoscyamine Liq Drops 0.125 MG/ML 15 ML Bottle J-TUBE PRN (20:59)
[2018-04-23] MEDS ORDERED: Enoxaparin Inj 80 MG/0.8 ML Syringe SQ SCH (21:00)
--- NOTE | 2018-04-23 21:07 | P.HPCC ---
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 The rapid response was called and the patient was transferred to ICU where she was placed on 60% oxygenation via trach collar. The critical care medicine was consulted for an admission. Inpatient Certification: I certify that the inpatient services were ordered in accordance with Medicare regulations governing the order. This includes certification that hospital inpatient services are reasonable and necessary and in the case of services not specified as inpatient-only under 42 CFR 419.22(n), that they are appropriately provided as inpatient services in accordance to with the 2-midnight benchmark under 43 CFR 412.3(e) Review of Systems unobtainable due to endotracheal tube PMFSH - History History Provided By: Patient, Medical Record, Law Enforcement - Medical History Medical History: Medical History (Last Reviewed 04/22/18 @ 23:11 by Maribell Canchola MD) Arthritis Barretts esophagus GERD (gastroesophageal reflux disease) Hypothyroidism 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 - Surgical History Surgical History: Surgical History (Last Reviewed 04/22/18 @ 23:11 by Maribell Canchola MD) History of cholecystectomy History of colonoscopy History of esophagogastroduodenoscopy (EGD) History of hernia repair History of oral surgery History of tonsillectomy and adenoidectomy History of esophageal dilatation (Resolved) - Family History Family History: Family History (Last Reviewed 04/22/18 @ 23:12 by Maribell Canchola MD) Mother Breast cancer Father Heart problem - Tobacco History Second Hand Smoke Exposure: No Smoking Status: Former smoker (Prior smoker for over 25 years) Tobacco Type: Cigarettes years: 30 - Alcohol History How Often Do You Have a Drink Containing Alcohol: Unable to Obtain - Substance Use History Substance History: No History of Abuse Medications and Allergies Active Medications: Active Medications Acetaminophen (Tylenol) 650 mg PO Q4H PRN PRN Reason: See Label Comments Hydrocodone Bitart/Acetaminophen (Hawkeye 5/325) 1 tab J-TUBE Q4H PRN PRN Reason: PAIN 2-5 Hydrocodone Bitart/Acetaminophen (Hawkeye 5/325) 2 tab J-TUBE Q4H PRN PRN Reason: PAIN 6-10 Ascorbic Acid (Vitamin C) 500 mg G-TUBE BID [facility] Benzocaine (Baby Orajel 7.5% Oral Gel) 1 applic BUCCAL Q2H PRN PRN Reason: MOUTH PAIN Bupropion HCl (Wellbutrin) 150 mg J-TUBE BID [facility] Cetirizine HCl (Zyrtec) 10 mg PO HS ANN Diphenhydramine HCl (Benadryl) 25 mg J-TUBE Q4H PRN PRN Reason: See Label Comments Enoxaparin Sodium (Lovenox Inj) 70 mg SQ Q12HR ANN Escitalopram Oxalate (Lexapro) 20 mg G-TUBE DAILY ANN Glycopyrrolate (Robinul Inj) 0.4 mg IV.PUSH Q8H PRN PRN Reason: thick secretions Hyoscyamine (Levsin) 0.125 mg J-TUBE Q6H ANN Hyoscyamine (Levsin Liq) 0.125 mg J-TUBE Q4H PRN PRN Reason: Secretions Sodium Bicarbonate 75 meq/ (Sodium Chloride) 1,000 mls @ 100 mls/hr IV.CONT .Q10H ANN Last Admin: 04/23/18 19:52 Dose: 100 mls/hr Lactobacillus Acidophilus (Lactinex) 1 tab J-TUBE TID ANN Lorazepam (Ativan Inj) 1 mg IV.PUSH Q6H PRN PRN Reason: Anxiety Morphine Sulfate (Roxanol Liq) 5 mg SL Q4H PRN PRN Reason: pain 2-10 Non-Formulary Medication (Levothyroxine [Levothyroxine]) 100 mcg FEED TUBE DAILY [facility] Non-Formulary Medication (Multivitamin [Daily Multi-Vitamin]) 1 tab FEED TUBE DAILY [facility] Non-Formulary Medication (Zinc Sulfate [Zinc Sulfate]) 220 mg J-TUBE DAILY [facility] Pantoprazole Sodium (Protonix Inj) 40 mg IV.PUSH Q12H ANN Simethicone (Phazyme Chew) 125 mg J-TUBE Q4H PRN PRN Reason: RELATING TO BLOATING Allergies Allergy/AdvReac Type Severity Reaction Status Date / Time epinephrine Allergy Severe TACHYCARDIA Verified 02/21/18 08:40 penicillin G Allergy Severe Hives Verified 02/21/18 08:40 peanut Allergy Intermediate ANAPHYLAXIS Verified 02/21/18 08:40 legumes Allergy Unknown Anaphylaxis Verified 03/06/18 21:48 soy Allergy Rash Verified 03/06/18 21:45 Home Medications Medication Instructions Recorded Confirmed Type cetirizine 10 mg PO HS 02/15/18 04/18/18 History escitalopram oxalate 20 mg FEEDING TUBE DAILY 02/15/18 04/18/18 History levothyroxine 100 mcg FEEDING TUBE DAILY 02/15/18 04/18/18 History ascorbic acid (vitamin C) 500 mg FEEDING TUBE BID 03/06/18 04/18/18 History multivitamin [Daily Multi-Vitamin] 1 tab FEEDING TUBE DAILY 03/06/18 04/18/18 History Results - Labs CBC & Chem 7: 04/24/18 04:04 04/24/18 04:04 Exam Vital signs: Vital Signs 04/23/18 19:00 04/23/18 20:00 Pulse Rate 81 75 Respiratory Rate 34 H 27 H Blood Pressure 91/44 L 105/51 L Pulse Oximetry 100 100 - Constitutional thin, cachectic, chronically ill appearing - Routine HEENT Exam Head: Present: atraumatic Eye: Present: PERRL, normal accommodation - Routine Neck Exam Present: supple, full ROM. Absent: JVD, carotid bruit - Routine Respiratory Exam Absent: accessory muscle use, rhonchi, stridor, wheezes - Routine Cardiovascular Exam Present: S1, S2. Absent: gallop, rubs - Routine Abdominal Exam Present: soft, normoactive bowel sounds. Absent: tenderness, distended - Routine Extremities Exam Absent: cyanosis, clubbing, edema - Routine Skin Exam Present: intact. Absent: cyanosis, erythema - Routine Neurological Exam Present: alert, moving all extremities Septic Shock Reassessment Septic shock perfusion: reassessment completed Caprini VTE Risk Assessment Caprini VTE Risk Assessment: Moderate/High Risk (score >= 2) Caprini Risk Assessment Model: Point Value = 1 Point Value = 2 Point Value = 3 Point Value = 5 Age 41-60 Minor surgery BMI > 25 kg/m2 Swollen legs Varicose veins or History of unexplained or recurrent spontaneous Oral contraceptives or hormone replacement Sepsis (< 1 month) Serious lung disease, including pneumonia (< 1 month) Abnormal pulmonary function Acute myocardial infarction Congestive heart failure (< 1 month) History of inflammatory bowel disease Medical patient at bed rest Age 61-74 Arthroscopic surgery Major open surgery (> 45 min) Laparoscopic surgery (> 45 min) Malignancy Confined to bed (> 72 hours) Immobilizing plaster cast Central venous access Age >= 75 History of VTE Family history of VTE Factor V Leiden Prothrombin [id number] Lupus anticoagulant Anticardiolipin antibodies Elevated serum homocysteine Heparin-induced thrombocytopenia Other congenital or acquired thrombophilia Stroke (< 1 month) Elective arthroplasty Hip, pelvis, or leg fracture Acute spinal cord injury (< 1 month) Prophylaxis Regimen: Total Risk Factor Score Risk Level Prophylaxis Regimen 0-1 Low Early ambulation 2 Moderate Order ONE of the following: *Sequential Compression Device (SCD) *Heparin 5000 units SQ BID 3-4 Higher Order ONE of the following medications: *Heparin 5000 units SQ TID *Enoxaparin/Lovenox 40 mg SQ daily (WT < 150 kg, CrCl > 30 mL/min) *Enoxaparin/Lovenox 30 mg SQ daily (WT < 150 kg, CrCl > 10-29 mL/min) *Enoxaparin/Lovenox 30 mg SQ BID (WT < 150 kg, CrCl > 30 mL/min) AND/OR *Sequential Compression Device (SCD) 5 or more Highest Order ONE of the following medications: *Heparin 5000 units SQ TID (Preferred with Epidurals) *Enoxaparin/Lovenox 40 mg SQ daily (WT < 150 kg, CrCl > 30 mL/min) *Enoxaparin/Lovenox 30 mg SQ daily (WT < 150 kg, CrCl > 10-29 mL/min) *Enoxaparin/Lovenox 30 mg SQ BID (WT < 150 kg, CrCl > 30 mL/min) AND *Sequential Compression Device (SCD) Assessment and Plan - Assessment and Plan Plan: Respiratory insufficiency -Left lower lobe pneumonia -Broad-spectrum antibiotics Avycaz per ID recommendation -Patient known to Dr. Canchola who is been following her at the [facility] scheduled and as needed -O2 via trach collar as needed to keep sats above 92 GERD -Pantoprazole IV every 12H Hypothyroidism -Levothyroxine Depression -Wellbutrin -Escitalopram DVT -Lovenox 60 mg subcu daily -dose adjusted due to low GFR Chronic renal insufficiency -IV fluid hydration -Further per nephrology DVT GI prophylaxis -Teds SCDs -Lovenox -Pantoprazole 35 minutes of critical care
[2018-04-23] MEDS ORDERED: Temazepam 15 MG Capsule PO PRN (21:09)
[2018-04-23] MEDS ORDERED: Bisacodyl 10 MG Supp RECTAL PRN (21:09)
[2018-04-23] MEDS ORDERED: Sod Chloride 0.9% Inj 1,000 ML IV.CONT SCH (21:15)
[2018-04-23 22:07] LABS: Hematocrit 23.9 % (35.0-46.0); Hemoglobin 7.9 gm/dL (11.6-15.3); Mean Corpuscular HGB Conc 33.1 % (32.0-36.0); Mean Corpuscular Hemoglobin 28.6 pg (27.0-34.0); Mean Corpuscular Volume 86.2 fL (80.0-100.0); Mean Platelet Volume 9.3 fL (7.0-11.0); Platelet Count 165 th/mm3 (150-450); Red Blood Count 2.77 mil/mm3 (4.00-5.30); Red Cell Distribution Width 17.6 % (11.6-17.2); White Blood Count 5.5 th/mm3 (4.0-11.0)
[2018-04-23 22:18] LABS: INR 1.1 Ratio; Prothrombin Time 10.9 sec (9.8-11.6)
[2018-04-23 22:21] LABS: Alanine Aminotransferase 32 U/L (10-53); Albumin 2.3 g/dL (3.4-5.0); Anion Gap 12 meq/L (5-15); Aspartate Aminotransferase 21 U/L (15-37); Blood Urea Nitrogen 64 mg/dL (7-18); Calcium 8.1 mg/dL (8.5-10.1); Carbon Dioxide 19.7 meq/L (21.0-32.0); Chloride 101 meq/L (98-107); Glomerular Filtration Rate 33 mL/min (>89); Glucose,Random 119 mg/dL (74-106); Phosphorus 5.4 mg/dL (2.5-4.9); Potassium 5.2 meq/L (3.5-5.1); Sodium 133 meq/L (136-145)
[2018-04-23 22:23] LABS: Alkaline Phosphatase 150 U/L (45-117); Total Protein 6.6 g/dL (6.4-8.2)
[2018-04-23 22:50] LABS: Blast Cells 1 % (0-0); Eosinophils 5 % (0-4); Lymphocytes 5 % (9-44); Metamyelocytes 2 % (0-1); Monocytes 2 % (0-8); Myelocytes 1 % (0-0)
[2018-04-23] MEDS: Pantoprazole Inj 40 MG Vial IV.PUSH SCH (22:51)
[2018-04-23 22:52] LABS: Platelet Estimate Normal (Normal)
[2018-04-23 22:53] LABS: Burr Cells 1+; Ovalocytes 1+
[2018-04-23] MEDS: buPROPion 75 MG Tablet J-TUBE SCH (23:09)
[2018-04-23] MEDS: Ascorbic Acid 500 MG Tablet G-TUBE SCH (23:09)
[2018-04-24] MEDS: Enoxaparin Inj 60 MG/0.6 ML Syringe SQ SCH ×2 (00:23→23:00)
[2018-04-24] MEDS ORDERED: Chlorhexidine Gluconate 2% 1 Pack (2 Cloths) TOPICAL PRN (04:00)
[2018-04-24 04:18] LABS: Baso % (Auto) 0.1 % (0.0-2.0); Eos # (Auto) 0.1 th/mm3 (0.0-0.4); Eos % (Auto) 1.5 % (0.0-4.0); Hematocrit 24.4 % (35.0-46.0); Hemoglobin 8.1 gm/dL (11.6-15.3); Lymph # (Auto) 0.4 th/mm3 (1.0-4.8); Lymph % (Auto) 6.3 % (9.0-44.0); Mean Corpuscular HGB Conc 33.3 % (32.0-36.0); Mean Corpuscular Hemoglobin 28.7 pg (27.0-34.0); Mean Corpuscular Volume 86.3 fL (80.0-100.0); Mean Platelet Volume 9.3 fL (7.0-11.0); Mono # (Auto) 0.3 th/mm3 (0.0-0.9); Mono % (Auto) 4.6 % (0.0-8.0); Neut # (Auto) 5.2 th/mm3 (1.8-7.7); Neut % (Auto) 87.5 % (16.0-70.0); Platelet Count 166 th/mm3 (150-450); Red Blood Count 2.83 mil/mm3 (4.00-5.30); Red Cell Distribution Width 17.3 % (11.6-17.2)
[2018-04-24 04:29] LABS: INR 1.1 Ratio; Prothrombin Time 11.3 sec (9.8-11.6)
[2018-04-24 04:50] LABS: Alanine Aminotransferase 31 U/L (10-53); Albumin 2.2 g/dL (3.4-5.0); Aspartate Aminotransferase 21 U/L (15-37); Blood Urea Nitrogen 64 mg/dL (7-18); Calcium 7.8 mg/dL (8.5-10.1); Chloride 100 meq/L (98-107); Glomerular Filtration Rate 35 mL/min (>89); Glucose,Random 141 mg/dL (74-106); Magnesium 1.9 mg/dL (1.5-2.5); Phosphorus 5.2 mg/dL (2.5-4.9); Potassium 4.9 meq/L (3.5-5.1); Sodium 133 meq/L (136-145)
[2018-04-24 04:51] LABS: Anion Gap 12 meq/L (5-15); Carbon Dioxide 20.8 meq/L (21.0-32.0)
[2018-04-24 04:54] LABS: Alkaline Phosphatase 154 U/L (45-117); Total Protein 6.5 g/dL (6.4-8.2)
[2018-04-24] MEDS: Chlorhexidine Gluconate 2% 1 Pack (2 Cloths) TOPICAL SCH (05:41)
[2018-04-24] MEDS: Sodium Bicarbonate 8.4% Inj 75 MEQ in Sodium Chloride 0.45 % Inj 925 ML IV.CONT SCH ×2 (05:42→16:00)
[2018-04-24] MEDS: Levothyroxine 100 MCG Tablet G-TUBE SCH (05:42)
[2018-04-24 06:11] LABS: Blast Cells 1 % (0-0); Lymphocytes 6 % (9-44); Metamyelocytes 6 % (0-1); Monocytes 1 % (0-8); Myelocytes 3 % (0-0)
[2018-04-24 06:14] LABS: Ovalocytes 1+
[2018-04-24] MEDS ORDERED: Ceftazidime/Avibactam Inj 1.25 GM in Sodium Chlor 0.9% Inj 50 ML IV.SIG SCH (08:00)
[2018-04-24] MEDS ORDERED: Ceftazidime/Avibactam Inj 2.5 GM in Sodium Chlor 0.9% Inj 50 ML IV.SIG SCH (08:00)
--- NOTE | 2018-04-24 08:46 | XR ---
EXAM DATE: 04/24/2018 8:42 AM EDT AGE/SEX: 73 years / Female INDICATIONS: Short of breath. CLINICAL DATA: This is the patient's initial encounter. Patient reports that signs and symptoms have been present for 1 day and indicates a pain score of Nonresponsive. MEDICAL/SURGICAL HISTORY: . Gastroesophageal reflux disease. Carcinoma, glottic. Cholecystect chela. Inguinal hernia repair. COMPARISON: [facility]IR, CHEST 1V SINGLE AP, 04/23/2018. . FINDINGS: Tracheostomy is stable in good position. There is patchy mild bilateral infiltrate, most confluent in the left lung base. Cardiac contours are stable CONCLUSION: Slight interval worsening in aeration. Electronically signed by: Gee Pinto MD 04/24/2018 8:45 AM EDT
[2018-04-24] MEDS: Senna/Docusate Sodium 8.6/50 MG Tablet PO SCH ×2 (08:55→21:01)
[2018-04-24] MEDS: Lactobacillus Acidophilus/L. Spores Tablet J-TUBE SCH ×3 (08:55→17:47)
[2018-04-24] MEDS: Pantoprazole Inj 40 MG Vial IV.PUSH SCH ×2 (08:55→21:01)
[2018-04-24] MEDS: buPROPion 75 MG Tablet J-TUBE SCH ×2 (08:57→21:01)
[2018-04-24] MEDS: Ascorbic Acid 500 MG Tablet G-TUBE SCH ×2 (08:57→21:01)
--- NOTE | 2018-04-24 09:04 | P.PNIM ---
Physical Exam Vital signs: Vital Signs 04/23/18 19:00 04/23/18 20:00 04/23/18 20:15 Pulse Rate 81 75 Respiratory Rate 34 H 27 H Blood Pressure 91/44 L 105/51 L Pulse Oximetry 100 100 100 04/24/18 00:00 04/24/18 00:52 04/24/18 03:32 Pulse Rate 62 69 Respiratory Rate 23 24 Blood Pressure 105/51 L Pulse Oximetry 100 97 04/24/18 03:45 04/24/18 04:00 Pulse Rate 68 Respiratory Rate 25 H Blood Pressure 96/50 L Pulse Oximetry 97 96 Intake & Output 04/23/18 04/24/18 04/24/18 18:59 06:59 18:59 Intake Total 1000 / 1000 Balance 1000 / 1000 Weight 54.1 kg Intake: IV 1000 / 1000 Sodium Bicarbonate 8.4% Inj 75 1000 / 1000 MEQ In 1/2 Normal Saline Inj 925 ML @ 100 mls/hr IV.CONT . Q10H [facility] Rx#:[id number] Results - Labs CBC & Chem 7: 04/24/18 04:04 04/24/18 04:04 Laboratory Results - last 24 hr 04/23/18 04/23/18 04/23/18 18:35 21:45 21:45 WBC 5.5 RBC 2.77 L Hgb 7.9 L Hct 23.9 L MCV 86.2 MCH 28.6 MCHC 33.1 RDW 17.6 H Plt Count 165 MPV 9.3 Prelim Diff (Auto) Manual diff required Neut % (Auto) Lymph % (Auto) [place] % (Auto) Eos % (Auto) Baso % (Auto) Neut # (Auto) Lymph # (Auto) [place] # (Auto) Eos # (Auto) Baso # (Auto) WBC Differential Manual diff final Seg Neuts % (Manual) 48 Band Neuts % (Manual) 36 H Lymphocytes % (Manual) 5 L Monocytes % (Manual) 2 Eosinophils % (Manual) 5 H Basophils % (Manual) Metamyelocytes % (Man) 2 H Myelocytes % (Man) 1 H Blast Cells % (Manual) 1 H Abs Neuts (Manual) 4.8 Differential Comment . Platelet Estimate Normal Platelet Morphology Enlarged H Ovalocytes 1+ H [place] Cells 1+ H PT 10.9 INR 1.1 Sodium Potassium Chloride Carbon Dioxide Anion Gap BUN Creatinine Estimated GFR Random Glucose Lactic Acid Calcium Phosphorus Magnesium Total Bilirubin AST ALT Alkaline Phosphatase Troponin I Total Protein Albumin Nasal Screen MRSA (PCR) Not detected 04/23/18 04/23/18 04/23/18 21:45 21:45 21:45 WBC RBC Hgb Hct MCV MCH MCHC RDW Plt Count MPV Prelim Diff (Auto) Neut % (Auto) Lymph % (Auto) [place] % (Auto) Eos % (Auto) Baso % (Auto) Neut # (Auto) Lymph # (Auto) [place] # (Auto) Eos # (Auto) Baso # (Auto) WBC Differential Seg Neuts % (Manual) Band Neuts % (Manual) Lymphocytes % (Manual) Monocytes % (Manual) Eosinophils % (Manual) Basophils % (Manual) Metamyelocytes % (Man) Myelocytes % (Man) Blast Cells % (Manual) Abs Neuts (Manual) Differential Comment Platelet Estimate Platelet Morphology Ovalocytes [place] Cells PT INR Sodium 133 L Potassium 5.2 H Chloride 101 Carbon Dioxide 19.7 L Anion Gap 12 BUN 64 H Creatinine 1.53 H Estimated GFR 33 L Random Glucose 119 H Lactic Acid 1.0 Calcium 8.1 L Phosphorus 5.4 H Magnesium 2.0 Total Bilirubin 0.5 AST 21 ALT 32 Alkaline Phosphatase 150 H Troponin I Less than 0.02 L Total Protein 6.6 Albumin 2.3 L Nasal Screen MRSA (PCR) 04/24/18 04/24/18 04/24/18 04:04 04:04 04:04 WBC 6.0 RBC 2.83 L Hgb 8.1 L Hct 24.4 L MCV 86.3 MCH 28.7 MCHC 33.3 RDW 17.3 H Plt Count 166 MPV 9.3 Prelim Diff (Auto) Slide review pending Neut % (Auto) 87.5 H Lymph % (Auto) 6.3 L [place] % (Auto) 4.6 Eos % (Auto) 1.5 Baso % (Auto) 0.1 Neut # (Auto) 5.2 Lymph # (Auto) 0.4 L [place] # (Auto) 0.3 Eos # (Auto) 0.1 Baso # (Auto) 0.0 WBC Differential Manual diff final Seg Neuts % (Manual) 69 Band Neuts % (Manual) 13 H Lymphocytes % (Manual) 6 L Monocytes % (Manual) 1 Eosinophils % (Manual) Basophils % (Manual) 1 Metamyelocytes % (Man) 6 H Myelocytes % (Man) 3 H Blast Cells % (Manual) 1 H Abs Neuts (Manual) 5.5 Differential Comment . Platelet Estimate Low L Platelet Morphology Enlarged H Ovalocytes 1+ H [place] Cells PT 11.3 INR 1.1 Sodium 133 L Potassium 4.9 Chloride 100 Carbon Dioxide 20.8 L Anion Gap 12 BUN 64 H Creatinine 1.48 H Estimated GFR 35 L Random Glucose 141 H Lactic Acid Calcium 7.8 L Phosphorus 5.2 H Magnesium 1.9 Total Bilirubin 0.4 AST 21 ALT 31 Alkaline Phosphatase 154 H Troponin I Less than 0.02 L Total Protein 6.5 Albumin 2.2 L Nasal Screen MRSA (PCR) 04/24/18 04:04 WBC RBC Hgb Hct MCV MCH MCHC RDW Plt Count MPV Prelim Diff (Auto) Neut % (Auto) Lymph % (Auto) [place] % (Auto) Eos % (Auto) Baso % (Auto) Neut # (Auto) Lymph # (Auto) [place] # (Auto) Eos # (Auto) Baso # (Auto) WBC Differential Seg Neuts % (Manual) Band Neuts % (Manual) Lymphocytes % (Manual) Monocytes % (Manual) Eosinophils % (Manual) Basophils % (Manual) Metamyelocytes % (Man) Myelocytes % (Man) Blast Cells % (Manual) Abs Neuts (Manual) Differential Comment Platelet Estimate Platelet Morphology Ovalocytes [place] Cells PT INR Sodium Potassium Chloride Carbon Dioxide Anion Gap BUN Creatinine Estimated GFR Random Glucose Lactic Acid 0.6 Calcium Phosphorus Magnesium Total Bilirubin AST ALT Alkaline Phosphatase Troponin I Total Protein Albumin Nasal Screen MRSA (PCR) - Imaging Impressions Chest X-Ray 04/23/18 21:13 CONCLUSION: Slight interval worsening in aeration.
--- NOTE | 2018-04-24 09:09 | P.PN ---
Subjective Interval history: ALERT NOW IN ICU SAT 95% ON 0.6 FIQ2 NAD Physical Exam Vital signs: Vital Signs 04/23/18 19:00 04/23/18 20:00 04/23/18 20:15 Pulse Rate 81 75 Respiratory Rate 34 H 27 H Blood Pressure 91/44 L 105/51 L Pulse Oximetry 100 100 100 04/24/18 00:00 04/24/18 00:52 04/24/18 03:32 Pulse Rate 62 69 Respiratory Rate 23 24 Blood Pressure 105/51 L Pulse Oximetry 100 97 04/24/18 03:45 04/24/18 04:00 04/24/18 09:04 Pulse Rate 68 61 Respiratory Rate 25 H 15 Blood Pressure 96/50 L Pulse Oximetry 97 96 100 Intake & Output 04/23/18 04/24/18 04/24/18 18:59 06:59 18:59 Intake Total 1000 / 1000 Balance 1000 / 1000 Weight 54.1 kg Intake: IV 1000 / 1000 Sodium Bicarbonate 8.4% Inj 75 1000 / 1000 MEQ In 1/2 Normal Saline Inj 925 ML @ 100 mls/hr IV.CONT . Q10H [facility] Rx#:[id number] - Constitutional no acute distress - Routine HEENT Exam Head: Present: normocephalic ENT: Present: mucous membranes moist - Routine Neck Exam Present: supple, full ROM - Routine Cardiovascular Exam Present: RRR, S1, S2 - Routine Abdominal Exam Present: soft, normoactive bowel sounds - Routine Neurological Exam Present: alert, oriented X3 Results - Labs CBC & Chem 7: 04/24/18 04:04 04/24/18 04:04 Laboratory Results - last 24 hr 04/23/18 04/23/18 04/23/18 18:35 21:45 21:45 WBC 5.5 RBC 2.77 L Hgb 7.9 L Hct 23.9 L MCV 86.2 MCH 28.6 MCHC 33.1 RDW 17.6 H Plt Count 165 MPV 9.3 Prelim Diff (Auto) Manual diff required Neut % (Auto) Lymph % (Auto) [place] % (Auto) Eos % (Auto) Baso % (Auto) Neut # (Auto) Lymph # (Auto) [place] # (Auto) Eos # (Auto) Baso # (Auto) WBC Differential Manual diff final Seg Neuts % (Manual) 48 Band Neuts % (Manual) 36 H Lymphocytes % (Manual) 5 L Monocytes % (Manual) 2 Eosinophils % (Manual) 5 H Basophils % (Manual) Metamyelocytes % (Man) 2 H Myelocytes % (Man) 1 H Blast Cells % (Manual) 1 H Abs Neuts (Manual) 4.8 Differential Comment . Platelet Estimate Normal Platelet Morphology Enlarged H Ovalocytes 1+ H Zion Cells 1+ H PT 10.9 INR 1.1 Sodium Potassium Chloride Carbon Dioxide Anion Gap BUN Creatinine Estimated GFR Random Glucose Lactic Acid Calcium Phosphorus Magnesium Total Bilirubin AST ALT Alkaline Phosphatase Troponin I Total Protein Albumin Nasal Screen MRSA (PCR) Not detected 04/23/18 04/23/18 04/23/18 21:45 21:45 21:45 WBC RBC Hgb Hct MCV MCH MCHC RDW Plt Count MPV Prelim Diff (Auto) Neut % (Auto) Lymph % (Auto) [place] % (Auto) Eos % (Auto) Baso % (Auto) Neut # (Auto) Lymph # (Auto) Simpson # (Auto) Eos # (Auto) Baso # (Auto) WBC Differential Seg Neuts % (Manual) Band Neuts % (Manual) Lymphocytes % (Manual) Monocytes % (Manual) Eosinophils % (Manual) Basophils % (Manual) Metamyelocytes % (Man) Myelocytes % (Man) Blast Cells % (Manual) Abs Neuts (Manual) Differential Comment Platelet Estimate Platelet Morphology Ovalocytes Zion Cells PT INR Sodium 133 L Potassium 5.2 H Chloride 101 Carbon Dioxide 19.7 L Anion Gap 12 BUN 64 H Creatinine 1.53 H Estimated GFR 33 L Random Glucose 119 H Lactic Acid 1.0 Calcium 8.1 L Phosphorus 5.4 H Magnesium 2.0 Total Bilirubin 0.5 AST 21 ALT 32 Alkaline Phosphatase 150 H Troponin I Less than 0.02 L Total Protein 6.6 Albumin 2.3 L Nasal Screen MRSA (PCR) 04/24/18 04/24/18 04/24/18 04:04 04:04 04:04 WBC 6.0 RBC 2.83 L Hgb 8.1 L Hct 24.4 L MCV 86.3 MCH 28.7 MCHC 33.3 RDW 17.3 H Plt Count 166 MPV 9.3 Prelim Diff (Auto) Slide review pending Neut % (Auto) 87.5 H Lymph % (Auto) 6.3 L Simpson % (Auto) 4.6 Eos % (Auto) 1.5 Baso % (Auto) 0.1 Neut # (Auto) 5.2 Lymph # (Auto) 0.4 L [place] # (Auto) 0.3 Eos # (Auto) 0.1 Baso # (Auto) 0.0 WBC Differential Manual diff final Seg Neuts % (Manual) 69 Band Neuts % (Manual) 13 H Lymphocytes % (Manual) 6 L Monocytes % (Manual) 1 Eosinophils % (Manual) Basophils % (Manual) 1 Metamyelocytes % (Man) 6 H Myelocytes % (Man) 3 H Blast Cells % (Manual) 1 H Abs Neuts (Manual) 5.5 Differential Comment . Platelet Estimate Low L Platelet Morphology Enlarged H Ovalocytes 1+ H [place] Cells PT 11.3 INR 1.1 Sodium 133 L Potassium 4.9 Chloride 100 Carbon Dioxide 20.8 L Anion Gap 12 BUN 64 H Creatinine 1.48 H Estimated GFR 35 L Random Glucose 141 H Lactic Acid Calcium 7.8 L Phosphorus 5.2 H Magnesium 1.9 Total Bilirubin 0.4 AST 21 ALT 31 Alkaline Phosphatase 154 H Troponin I Less than 0.02 L Total Protein 6.5 Albumin 2.2 L Nasal Screen MRSA (PCR) 04/24/18 04:04 WBC RBC Hgb Hct MCV MCH MCHC RDW Plt Count MPV Prelim Diff (Auto) Neut % (Auto) Lymph % (Auto) Simpson % (Auto) Eos % (Auto) Baso % (Auto) Neut # (Auto) Lymph # (Auto) Simpson # (Auto) Eos # (Auto) Baso # (Auto) WBC Differential Seg Neuts % (Manual) Band Neuts % (Manual) Lymphocytes % (Manual) Monocytes % (Manual) Eosinophils % (Manual) Basophils % (Manual) Metamyelocytes % (Man) Myelocytes % (Man) Blast Cells % (Manual) Abs Neuts (Manual) Differential Comment Platelet Estimate Platelet Morphology Ovalocytes [place] Cells PT INR Sodium Potassium Chloride Carbon Dioxide Anion Gap BUN Creatinine Estimated GFR Random Glucose Lactic Acid 0.6 Calcium Phosphorus Magnesium Total Bilirubin AST ALT Alkaline Phosphatase Troponin I Total Protein Albumin Nasal Screen MRSA (PCR) - Imaging Impressions Chest X-Ray 04/23/18 21:13 CONCLUSION: Slight interval worsening in aeration. Assessment and Plan - Plan RESPIRATORY FAILURE SEPSIS ? PNA S/P TRACHEOSTOMY LARYNGEAL CA PLAN O2 NEEDED BRONCHODILATORS ANTIBX PULMONARY TOILET
--- NOTE | 2018-04-24 11:26 | P.CONPAL ---
Consult Service: Palliative Care Requesting Physician: Dwayne Salas Reason for Consult: a. To assist with evaluation and management of symptoms including: dyspnea, pain, debility, anxiety b. To assist medical decision maker(s) with: better understanding of current medical conditions; weighing benefits/burdens of medical treatment options; making medical treatment decisions. Primary Care Provider: UNKNOWN History of Present Illness History of Present Illness: This is a 73 y/o female with hx laryngeal ca diagnosed 2014, esophageal strictures, with tracheostomy and GJ tube, known to our service from previous admissions who presented 04/23 from [facility] for hypoxemic respiratory failure. On 04/23 she became hypoxic, dyspneic, increased secretions, o2 sat 74% on 28% o2 via trach mask. She was hypotensive with BP 82/40. She was found to have left lower lobe PNA, infiltrates seen on CXR. She was initially diagnosed with supraglottic squamous cell carcinoma of larynx in 2014, now s/p chemo and radiation. She has hx of suicidal ideations resulting in harmon act and has been on lexapro. She was initially admitted 02/11/18 weakness found to be anemic , depression, dysphagia s/p GJ placement, aspiration PNA. She was discharged to a SNF and then returned 03/06 for respiratory distress and was intubated. She subsequently had tracheostomy, had to have GJ repositioned. She was then discharged to [facility]. While in rehab she had episode of coffee ground emesis. Imaging was unremarkable and GI recommended EES for motility and recommended to defer any further procedures and work up. ID was consulted for MDRO PSAE in sputum. Reportedly she did have a fall while in rehab, no injury sustained. Rehab noted that she has 1cm coccygeal wound. On my eval she is resting in bed with eyes closed. She is alert, oriented and appropriate. She can mouth words, nod or shake head appropriately, and communicate via writing. Admits weight loss but unable to further qualify or quantify and the weights in the EMR do not seem to be consistent or reliable. She denies pain. She denies constipation. Denies anxiety at this time. Has scheduled lexapro. She does admit feeling short of breath. She has PRN opiates , anxiety meds, duonebs ordered so I encouraged her to ask for these if she is having discomfort. She is on vanc, ceftazidime/avibactam. Function/Cognitive Trajectory: Pt was at [facility] but brought to [facility] after rapid response called for respiratory distress. Prior to hospitalization in January,-Patient lived at home alone, independent of all her ADLs. Patient has had 2 prolonged hospitalizations requiring intubation, GJ tube placement, and tracheostomy. This is her 3rd hospitalization this summer. She has lost weight, now dependent on GJ tube feedings. Review of Systems other ([employer], obtained via pt & EMR) Constitutional: Reports lack of energy, Reports weight loss Eyes: Denies blind spots Ears, Nose, Mouth, and Throat: Denies abnormal hearing, Denies nasal discharge Cardiovascular: Reports shortness of breath when lying down, Denies chest pain Respiratory: Reports chest congestion, Reports excessive phlegm production, Reports shortness of breath Gastrointestinal: Denies abdominal pain, Denies constipation Musculoskeletal: Reports decreased muscle mass, Reports muscle weakness Skin/Breast: Denies bleeding lesions Neurologic: Denies memory loss Psychiatric: Denies anxiety, Denies hopelessness Hematologic/Lymphatic: Denies easy bleeding PMFSH - History History Provided By: Patient, Medical Record, Law Enforcement - Medical History Medical History: Medical History (Last Reviewed 04/24/18 @ 18:44 by Maribell Canchola MD) Arthritis Barretts esophagus GERD (gastroesophageal reflux disease) Hypothyroidism 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 - Surgical History Surgical History: Surgical History (Last Reviewed 04/24/18 @ 18:44 by Maribell Canchola MD) History of cholecystectomy History of colonoscopy History of esophagogastroduodenoscopy (EGD) History of hernia repair History of oral surgery History of tonsillectomy and adenoidectomy History of esophageal dilatation (Resolved) - Family History Family History: Family History (Last Reviewed 04/22/18 @ 23:12 by Maribell Canchola MD) Mother Breast cancer Father Heart problem - Tobacco History Second Hand Smoke Exposure: No Smoking Status: Former smoker (Prior smoker for over 25 years) Tobacco Type: Cigarettes years: 30 - Alcohol History How Often Do You Have a Drink Containing Alcohol: 2 to 3 times a week (prior to hospitalization) - Substance Use History Substance History: No History of Abuse Medications and Allergies Active Medications: Active Medications Acetaminophen (Tylenol) 650 mg PO Q4H PRN PRN Reason: ELEVATED TEMP/HEADACHE Hydrocodone Bitart/Acetaminophen (Poynette 5/325) 1 tab J-TUBE Q4H PRN PRN Reason: PAIN 2-5 Hydrocodone Bitart/Acetaminophen (Poynette 5/325) 2 tab J-TUBE Q4H PRN PRN Reason: PAIN 6-10 Al Hydroxide/Mg Hydroxide (Milk Of Magnelle Liq) 30 ml PO Q12H PRN PRN Reason: Mild Constipation Albuterol (Duoneb Neb (Eugenia)) 1 ampul NEB Q6HR NEB [facility] Last Admin: 04/24/18 09:05 Dose: 1 ampul Albuterol (Duoneb Neb (Prn)) 1 ampul NEB Q2HR NEB PRN PRN Reason: WHEEZING Ascorbic Acid (Vitamin C) 500 mg G-TUBE BID [facility] Last Admin: 04/24/18 08:57 Dose: 500 mg Bisacodyl (Dulcolax Supp) 10 mg RECTAL DAILY PRN PRN Reason: SEVERE CONSITIPATION Bupropion HCl (Wellbutrin) 150 mg J-TUBE BID [facility] Last Admin: 04/24/18 08:57 Dose: 150 mg Cetirizine HCl (Zyrtec) 10 mg PO HS [facility] Last Admin: 04/23/18 22:52 Dose: 10 mg Chlorhexidine Gluconate (Chlorhexidine 2% Cloth) 3 pack TOPICAL DAILY@0400 [facility] Stop: 04/29/18 03:59 Last Admin: 04/24/18 05:41 Dose: 3 pack Chlorhexidine Gluconate (Chlorhexidine 2% Cloth) 3 pack TOPICAL DAILY@0400 PRN PRN Reason: Extra cloth needed Stop: 04/29/18 03:59 Diphenhydramine HCl (Benadryl) 25 mg J-TUBE Q4H PRN PRN Reason: ITCHING Enoxaparin Sodium (Lovenox Inj) 60 mg SQ Q24H [facility] Last Admin: 04/24/18 00:23 Dose: 60 mg Escitalopram Oxalate (Lexapro) 20 mg J-TUBE DAILY [facility] Last Admin: 04/24/18 08:55 Dose: 20 mg Glycopyrrolate (Robinul Inj) 0.4 mg IV.PUSH Q8H PRN PRN Reason: thick secretions Hyoscyamine (Levsin) 0.125 mg J-TUBE Q6H [facility] Last Admin: 04/24/18 08:55 Dose: 0.125 mg Hyoscyamine (Levsin Liq) 0.125 mg J-TUBE Q4H PRN PRN Reason: MILD SECRETIONS Sodium Bicarbonate 75 meq/ (Sodium Chloride) 1,000 mls @ 100 mls/hr IV.CONT .Q10H [facility] Last Admin: 04/24/18 05:42 Dose: 100 mls/hr Ceftazidime/Avibactam 2.5 gm/ (Sodium Chloride) 50 mls @ 25 mls/hr IV.SIG Q8H [facility] Stop: 04/24/18 11:00 Last Admin: 04/24/18 08:56 Dose: 25 mls/hr Ceftazidime/Avibactam 1.25 gm/ (Sodium Chloride) 50 mls @ 25 mls/hr IV.SIG Q8H [facility] Lactobacillus Acidophilus (Lactinex) 1 tab J-TUBE TID [facility] Last Admin: 04/24/18 08:55 Dose: 1 tab Lactulose (Lactulose Liq) 30 ml PO DAILY PRN PRN Reason: SEVERE CONSITIPATION Levothyroxine Sodium (Synthroid) 100 mcg G-TUBE DAILY@0600 [facility] Last Admin: 04/24/18 05:42 Dose: 100 mcg Lorazepam (Ativan Inj) 1 mg IV.PUSH Q6H PRN PRN Reason: Anxiety Metoclopramide HCl (Reglan Inj) 5 mg IV.PUSH Q6HR [facility]; Protocol Last Admin: 04/24/18 05:42 Dose: 5 mg Morphine Sulfate (Roxanol Liq) 5 mg SL Q4H PRN PRN Reason: BREAKTHROUGH pain 2-10 Multivitamins (Theragran) 1 tab G-TUBE DAILY [facility] Last Admin: 04/24/18 08:56 Dose: 1 tab Ondansetron HCl (Zofran Inj) 4 mg IV.PUSH Q6H PRN PRN Reason: NAUSEA OR VOMITING Pantoprazole Sodium (Protonix Inj) 40 mg IV.PUSH Q12H [facility] Last Admin: 04/24/18 08:55 Dose: 40 mg Senna/Docusate Sodium (Emmie-Colace) 1 tab PO BID [facility] Last Admin: 04/24/18 08:55 Dose: 1 tab Sennosides (Senokot) 17.2 mg PO Q12H PRN PRN Reason: Moderate Constipation Simethicone (Phazyme Chew) 125 mg J-TUBE Q4H PRN PRN Reason: RELATING TO BLOATING Sodium Chloride (Ns Flush) 2 ml IV.FLUSH BID [facility] Last Admin: 04/24/18 09:21 Dose: 2 ml Sodium Chloride (Ns Flush) 2 ml IV.FLUSH PRN PRN PRN Reason: FLUSH AFTER USING IV ACCESS Temazepam (Restoril) 15 mg PO HS PRN PRN Reason: INSOMNIA Vancomycin HCl (Vancomycin Po) 500 mg PO QID [facility] Last Admin: 04/24/18 08:56 Dose: 500 mg Zinc Sulfate (Zinc-220) 220 mg J-TUBE DAILY [facility] Last Admin: 04/24/18 08:55 Dose: 220 mg Allergies Allergy/AdvReac Type Severity Reaction Status Date / Time epinephrine Allergy Severe TACHYCARDIA Verified 02/21/18 08:40 penicillin G Allergy Severe Hives Verified 02/21/18 08:40 peanut Allergy Intermediate ANAPHYLAXIS Verified 02/21/18 08:40 legumes Allergy Unknown Anaphylaxis Verified 03/06/18 21:48 soy Allergy Rash Verified 03/06/18 21:45 Home Medications Medication Instructions Recorded Confirmed Type cetirizine 10 mg PO HS 02/15/18 04/18/18 History escitalopram oxalate 20 mg FEEDING TUBE DAILY 02/15/18 04/18/18 History levothyroxine 100 mcg FEEDING TUBE DAILY 02/15/18 04/18/18 History ascorbic acid (vitamin C) 500 mg FEEDING TUBE BID 03/06/18 04/18/18 History multivitamin [Daily Multi-Vitamin] 1 tab FEEDING TUBE DAILY 03/06/18 04/18/18 History Advance Directives Living Will: Yes Power of Pals Specialist: Yes Power of Pals Specialist Name: Alireza Whitten Power of Pals Specialist Relationship to Patient: Other Family/friends goals: Goals aggressive. Pt wishes to remain full code and hopes for improvement to be able to return to rehab, which she felt was going "okay." Ethical and Legal Issues: Pt is capacitated to make medical decisions. Should she become incapacitated, she has designated her son Alireza as medical POA. Physical Exam Vital Signs: Vital Signs - 24 hr 04/23/18 19:00 04/23/18 20:00 04/23/18 20:15 Temperature Pulse Rate 81 75 Respiratory Rate 34 H 27 H Blood Pressure 91/44 L 105/51 L Pulse Oximetry 100 100 100 04/24/18 00:00 04/24/18 00:52 04/24/18 03:32 Temperature Pulse Rate 62 69 Respiratory Rate 23 24 Blood Pressure 105/51 L Pulse Oximetry 100 97 04/24/18 03:45 04/24/18 04:00 04/24/18 08:00 Temperature 97.9 F Pulse Rate 68 61 Respiratory Rate 25 H 20 Blood Pressure 96/50 L 118/59 L Pulse Oximetry 97 96 98 04/24/18 09:04 Temperature Pulse Rate 61 Respiratory Rate 15 Blood Pressure Pulse Oximetry 100 I&O: Intake & Output 04/22/18 04/23/18 04/24/18 04/25/18 06:59 06:59 06:59 06:59 Intake Total 1000 / 1000 Balance 1000 / 1000 Weight 54.1 kg Physical Exam: CONSTITUTIONAL/GENERAL: this is a pale, ill appearing female with a tracheostomy TUBES/LINES/DRAINS: trach, PIV SKIN: Pale. No jaundice, rashes, or lesions. No wounds seen anteriorly. Skin temperature appropriate. Not diaphoretic. HEAD: Atraumatic. Normocephalic. EYES: Pupils equal and round and reactive. Extraocular motions intact. No scleral icterus. No injection or drainage. Fundi not examined. ENT: Hearing grossly normal. Nose without bleeding or purulent drainage. CARDIOVASCULAR: RRR without murmurs, gallops, or rubs. No JVD. Peripheral pulses symmetric. RESPIRATORY/CHEST: coarse lung sounds. respirations shallow. trach to t-piece GASTROINTESTINAL: Abdomen soft, non-tender, nondistended. No hepato-splenomegaly , or palpable masses. No guarding. Bowel sounds present. +GJ tube MUSCULOSKELETAL: Extremities without clubbing, cyanosis, or edema. No joint tenderness or effusion noted. No calf tenderness. No mottling or clubbing. NEUROLOGICAL: Awake and alert. Motor and sensory grossly within normal limits. Follows commands. Cognitively sharp. Moves all extremities. PSYCHIATRIC: No obvious anxiety/depression. no apparent hallucinations or other psychotic thought process. Diagnostic Tests Laboratory: Laboratory Results - last 72 hr 04/23/18 04/23/18 04/23/18 18:35 21:45 21:45 WBC 5.5 RBC 2.77 L Hgb 7.9 L Hct 23.9 L MCV 86.2 MCH 28.6 MCHC 33.1 RDW 17.6 H Plt Count 165 MPV 9.3 Prelim Diff (Auto) Manual diff required Neut % (Auto) Lymph % (Auto) [place] % (Auto) Eos % (Auto) Baso % (Auto) Neut # (Auto) Lymph # (Auto) [place] # (Auto) Eos # (Auto) Baso # (Auto) WBC Differential Manual diff final Seg Neuts % (Manual) 48 Band Neuts % (Manual) 36 H Lymphocytes % (Manual) 5 L Monocytes % (Manual) 2 Eosinophils % (Manual) 5 H Basophils % (Manual) Metamyelocytes % (Man) 2 H Myelocytes % (Man) 1 H Blast Cells % (Manual) 1 H Abs Neuts (Manual) 4.8 Differential Comment . Platelet Estimate Normal Platelet Morphology Enlarged H Ovalocytes 1+ H [place] Cells 1+ H PT 10.9 INR 1.1 Sodium Potassium Chloride Carbon Dioxide Anion Gap BUN Creatinine Estimated GFR Random Glucose Lactic Acid Calcium Phosphorus Magnesium Total Bilirubin AST ALT Alkaline Phosphatase Troponin I Total Protein Albumin Nasal Screen MRSA (PCR) Not detected 04/23/18 04/23/18 04/23/18 21:45 21:45 21:45 WBC RBC Hgb Hct MCV MCH MCHC RDW Plt Count MPV Prelim Diff (Auto) Neut % (Auto) Lymph % (Auto) [place] % (Auto) Eos % (Auto) Baso % (Auto) Neut # (Auto) Lymph # (Auto) [place] # (Auto) Eos # (Auto) Baso # (Auto) WBC Differential Seg Neuts % (Manual) Band Neuts % (Manual) Lymphocytes % (Manual) Monocytes % (Manual) Eosinophils % (Manual) Basophils % (Manual) Metamyelocytes % (Man) Myelocytes % (Man) Blast Cells % (Manual) Abs Neuts (Manual) Differential Comment Platelet Estimate Platelet Morphology Ovalocytes [place] Cells PT INR Sodium 133 L Potassium 5.2 H Chloride 101 Carbon Dioxide 19.7 L Anion Gap 12 BUN 64 H Creatinine 1.53 H Estimated GFR 33 L Random Glucose 119 H Lactic Acid 1.0 Calcium 8.1 L Phosphorus 5.4 H Magnesium 2.0 Total Bilirubin 0.5 AST 21 ALT 32 Alkaline Phosphatase 150 H Troponin I Less than 0.02 L Total Protein 6.6 Albumin 2.3 L Nasal Screen MRSA (PCR) 04/24/18 04/24/18 04/24/18 04:04 04:04 04:04 WBC 6.0 RBC 2.83 L Hgb 8.1 L Hct 24.4 L MCV 86.3 MCH 28.7 MCHC 33.3 RDW 17.3 H Plt Count 166 MPV 9.3 Prelim Diff (Auto) Slide review pending Neut % (Auto) 87.5 H Lymph % (Auto) 6.3 L [place] % (Auto) 4.6 Eos % (Auto) 1.5 Baso % (Auto) 0.1 Neut # (Auto) 5.2 Lymph # (Auto) 0.4 L [place] # (Auto) 0.3 Eos # (Auto) 0.1 Baso # (Auto) 0.0 WBC Differential Manual diff final Seg Neuts % (Manual) 69 Band Neuts % (Manual) 13 H Lymphocytes % (Manual) 6 L Monocytes % (Manual) 1 Eosinophils % (Manual) Basophils % (Manual) 1 Metamyelocytes % (Man) 6 H Myelocytes % (Man) 3 H Blast Cells % (Manual) 1 H Abs Neuts (Manual) 5.5 Differential Comment . Platelet Estimate Low L Platelet Morphology Enlarged H Ovalocytes 1+ H [place] Cells PT 11.3 INR 1.1 Sodium 133 L Potassium 4.9 Chloride 100 Carbon Dioxide 20.8 L Anion Gap 12 BUN 64 H Creatinine 1.48 H Estimated GFR 35 L Random Glucose 141 H Lactic Acid Calcium 7.8 L Phosphorus 5.2 H Magnesium 1.9 Total Bilirubin 0.4 AST 21 ALT 31 Alkaline Phosphatase 154 H Troponin I Less than 0.02 L Total Protein 6.5 Albumin 2.2 L Nasal Screen MRSA (PCR) 04/24/18 04:04 WBC RBC Hgb Hct MCV MCH MCHC RDW Plt Count MPV Prelim Diff (Auto) Neut % (Auto) Lymph % (Auto) [place] % (Auto) Eos % (Auto) Baso % (Auto) Neut # (Auto) Lymph # (Auto) [place] # (Auto) Eos # (Auto) Baso # (Auto) WBC Differential Seg Neuts % (Manual) Band Neuts % (Manual) Lymphocytes % (Manual) Monocytes % (Manual) Eosinophils % (Manual) Basophils % (Manual) Metamyelocytes % (Man) Myelocytes % (Man) Blast Cells % (Manual) Abs Neuts (Manual) Differential Comment Platelet Estimate Platelet Morphology Ovalocytes [place] Cells PT INR Sodium Potassium Chloride Carbon Dioxide Anion Gap BUN Creatinine Estimated GFR Random Glucose Lactic Acid 0.6 Calcium Phosphorus Magnesium Total Bilirubin AST ALT Alkaline Phosphatase Troponin I Total Protein Albumin Nasal Screen MRSA (PCR) Result Diagrams: 04/24/18 04:04 04/25/18 03:17 Microbiology: Microbiology 04/23/18 21:45 Aerobic Blood Culture - Preliminary Blood - Peripheral No growth in 1 day Anaerobic Blood Culture - Preliminary No growth in 1 day 04/23/18 21:39 Aerobic Blood Culture - Preliminary Blood - Peripheral No growth in 1 day Anaerobic Blood Culture - Preliminary No growth in 1 day Imaging: ITS Impressions Chest X-Ray 04/23/18 21:13 CONCLUSION: Slight interval worsening in aeration. Patient/Family Conference Present at Family Conference: patient Family Conference Time: 20 Family Conference Location: Bedside Issues Discussed: * Palliative care role, purpose, approach * Additional medical, psychosocial, and spiritual history * brief review Patients general health, functional status, in the week leading up to the current hospitalization * patient understanding of the current medical problems * patient understanding of prognosis * Patients goals of care as best understood from conversations - she would like to get better and return to rehab, she felt rehab was going "okay" * code status - she wishes to remain full code * Questions answered to the best of my ability * Palliative care contact information provided * Goals aggresstive. Pt wishes to remain full code and hopes for improvement to be able to return to rehab, which she felt was going "okay." Assessment and Plan - Disease Oriented Problem List (1) Respiratory failure with hypoxia (2) Aspiration pneumonia (3) Anemia (4) Dysphagia (5) Tracheostomy dependence (6) Decubitus ulcer of coccyx (7) History of laryngeal cancer - Symptom Scale (1) Anxiety 0-10 Scale: Unable to quantify (2) Pain 0-10 Scale: Unable to quantify (3) Dyspnea 0-10 Scale: Unable to quantify Comment: 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 Patient now has a tracheostomy. (4) Debility 0-10 Scale: Unable to quantify Pertinent Non-Medical Issues: Psychosocial: Patient is originally from [place]. She has 4 brothers and 2 sisters. She moved to [place] approximately 40 years ago. Patient was for 18 years and then . She and her had 3 sons (Alireza, Sagar and Cameron). Alireza is a physicians interior design assistant and lives in [place]. Adalid and Cameron live in [place]. Per patient, Cameron was born with "autism" and live in a skilled nursing Spiritual: [place] Legal: Pt's son Alireza is medical POA. Ethical issues impacting care: none Important Contacts: medical POA son Alireza Whitten , cell [phone] Prognosis: This is a 73 yo lady with hx laryngeal ca diagnosed 2015 s/p chemo and radiation who presented 04/23 after [facility] called for hypoxia and respiratory distress while in [facility]. She initially presented in January with weakness, dysphagia, weight loss, anemia. She has since had tracheostomy, GJ, and numerous complications, now with pneumonia. She remains at risk for further decline, complications and setbacks. Code Status: Full Code Plan: - LEGAL DECISON MAKER - Pt is capacitated to make medical decisions. Should she become incapacitated, she has designated her son Alireza as medical POA. - CODE STATUS- full code - GOALS - Goals aggressive. Pt wishes to remain full code and hopes for improvement to be able to return to rehab, which she felt was going "okay." - SYMPTOMS - * pain - risk for pain. multifactorial, coccygeal ulcer, mult lines and catheters, tubes. denies pain at this time Has Poynette 5/325 1 tab PRN q4h and 2 tab PRN q4h for mild and moderate to severe pain, respectively. Also has PRN roxanol 5mg q4h for breakthrough pain. * dyspnea - hx laryngeal ca, has trach, now with PNA. BCX pending. admits feeling SOB. sat 100 on t-piece fio2 28, 5L. +secretions. lung sounds coarse. had breathing tx this morning @ 0900. has PRN and scheduled duonebs, PRN and eugenia levsin. abx per ID. has PRN meds for anxiety and pain. encouraged her to use PRNs for breathing discomfort. * depression/anxiety - multifactorial. not anxious today but does feel SOB. on lexapro 20mg daily. has PRN ativan 1mg q6h. Has PRN temazepam for insomnia. encouraged her to use her PRNs * debility- multifactorial. 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 respiratory status unlikely to allow for aggressive therapy. having recurrent PNA. weak. EGG PRODUCER and rehab have recommended strict NPO, no ice chips. - Palliative care will continue to follow during hospital course as condition evolves, to assist patient/decision-maker with understanding of medical conditions, weighing benefits/burdens of treatment options, for clarification of goals of treatment. Additionally will assist with any symptoms of palliative concern Appreciation Thank you for the opportunity to participate in the care of Ana M Henson. Attestation Attestation: To help prompt me to consider important information that might be impacting today's encounter and assessment, information from prior notes written by myself or my colleagues may have been "brought forward" into today's note. My signature on this note, however, is an attestation that I personally performed the exam, history, and/or decision-making noted today, and, unless otherwise indicated, the interactions with patient, family, and staff as well as the review of records all occurred today. I also attest that the listed assessment and stated plan reflect my best clinical judgment today based on the combination of historical information, prior notes, and today's exam/ interactions. When time spent is documented, it refers only to time spent today by the signer, or if indicated, combined time spent today by collaborating physician/nurse practitioner.
--- NOTE | 2018-04-24 11:52 | P.DIET ---
Nutritional Evaluation Type of nutrition evaluation: initial Nutrition consult regarding: Tube Feeding Subjective Subjective Comments: Transferred from [place] with hypoxemic respiratory failure. Has trach/PEG. Objective - Diagnosis Respiratory Failure - Objective % IBW: 99 (IBW = 120#) Body Weight Used for Calculations: Actual (54.1 kg) Energy Needs - Lower Range (kCal/kg): 28 Energy Needs - Upper Range (kCal/kg): 32 Lower Limit kCal/kg (kCals): 1,515 Upper Limit kCal/kg (kCals): 1,731 Lower Limit Protein Factor (Grams per Kg): 1.2 Upper Limit Protein Factor (Grams per Kg): 1.5 Lower Protein Needs (Protein): 65 Upper Protein Needs (Protein): 81 Dietitian Reviewed in Medical Record: Curent medications, Intake & Output, Labs , Medical history, Tube feeding Diet Order: NPO Objective Comments: Meds include Vit C, levsin, lactinex, synthroid, reglan, MVI, Zinc 220 03/19 esophagogastroduodenoscopy with esphageal dilation 03/21 panendoscopy Assessment Assessment: Pt is at high nutrition risk 2' to her dependence on TFing for nutritional needs. Current order is for Jevity 1.5 @ 55 mls/hr goal. Pt has a noted soy allergy so recommend change TF to Vital 1.5 with goal rate of 55 mls/hr x 22 hours for a total of 1815 kcals, 82 gms protein and 924 mls of free water. TF run time will be 22 hours because the pt is on synthroid and TF needs to held one hour before and one hour after the med is given. Recommendations: Vital 1.5 @ 55 mls/hr x 22 hrs Dietitian to Monitor: Lab values, Intake & Output, Tube feeding tolerance, Weight change, Medical course
[2018-04-24] MEDS: Ceftazidime/Avibactam Inj 1.25 GM in Sodium Chlor 0.9% Inj 50 ML IV.SIG SCH ×2 (15:04→23:01)
--- NOTE | 2018-04-24 17:22 | P.CONID ---
History of Present Illness Service: ID Consult date: 04/24/18 Requesting Physician: Dwayne Salas Reason for Consult: MDRO PNA Primary Care Provider: UNKNOWN History of Present Illness: Pt known to me from previous hospitalisations She is unable to provide history History obtained from the chart I saw her 2 weeks ago she was treated for MDRO PSAE amdnd MRSA PNA with avycaz, vancomycin 73 yo female with head and neck cancer sp trach and PEG has heavy secretions from trach, grew MDRO pseudomonas aeruginosa again No fevers On oral vanco c.diff studies are negative secretioons are better per RN no fever no leukocytosis CT A/P showed no acute intraabd pathology, but pt has b/b pneumonia She was restarted on avycaz which she tolerated previously uneventfully Overnite she was transferred with resp distress to [facility] reports a lot of secretions Pt is on Tpiece Review of Systems unobtainable due to endotracheal tube PMFSH - History History Provided By: Patient, Medical Record, Law Enforcement - Medical History Medical History: Medical History (Last Reviewed 04/24/18 @ 18:44 by Maribell Canchola MD) Arthritis Barretts esophagus GERD (gastroesophageal reflux disease) Hypothyroidism 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 - Surgical History Surgical History: Surgical History (Last Reviewed 04/24/18 @ 18:44 by Maribell Canchola MD) History of cholecystectomy History of colonoscopy History of esophagogastroduodenoscopy (EGD) History of hernia repair History of oral surgery History of tonsillectomy and adenoidectomy History of esophageal dilatation (Resolved) - Family History Family History: Family History (Last Reviewed 04/22/18 @ 23:12 by Maribell Canchola MD) Mother Breast cancer Father Heart problem - Tobacco History Second Hand Smoke Exposure: No Smoking Status: Former smoker (Prior smoker for over 25 years) Tobacco Type: Cigarettes years: 30 - Alcohol History How Often Do You Have a Drink Containing Alcohol: 2 to 3 times a week (prior to hospitalization) - Substance Use History Substance History: No History of Abuse Medications and Allergies Active Medications: Active Medications Acetaminophen (Tylenol) 650 mg PO Q4H PRN PRN Reason: ELEVATED TEMP/HEADACHE Hydrocodone Bitart/Acetaminophen ([place] 5/325) 1 tab J-TUBE Q4H PRN PRN Reason: PAIN 2-5 Hydrocodone Bitart/Acetaminophen ([place] 5/325) 2 tab J-TUBE Q4H PRN PRN Reason: PAIN 6-10 Al Hydroxide/Mg Hydroxide (Milk Of Magnesia Liq) 30 ml PO Q12H PRN PRN Reason: Mild Constipation Albuterol (Duoneb Neb ([place])) 1 ampul NEB Q6HR NEB [facility] Last Admin: 04/24/18 15:42 Dose: 1 ampul Albuterol (Duoneb Neb (Prn)) 1 ampul NEB Q2HR NEB PRN PRN Reason: WHEEZING Ascorbic Acid (Vitamin C) 500 mg G-TUBE BID [facility] Last Admin: 04/24/18 08:57 Dose: 500 mg Bisacodyl (Dulcolax Supp) 10 mg RECTAL DAILY PRN PRN Reason: SEVERE CONSITIPATION Bupropion HCl (Wellbutrin) 150 mg J-TUBE BID [facility] Last Admin: 04/24/18 08:57 Dose: 150 mg Cetirizine HCl (Zyrtec) 10 mg PO HS [facility] Last Admin: 04/23/18 22:52 Dose: 10 mg Chlorhexidine Gluconate (Chlorhexidine 2% Cloth) 3 pack TOPICAL DAILY@0400 [facility] Stop: 04/29/18 03:59 Last Admin: 04/24/18 05:41 Dose: 3 pack Chlorhexidine Gluconate (Chlorhexidine 2% Cloth) 3 pack TOPICAL DAILY@0400 PRN PRN Reason: Extra cloth needed Stop: 04/29/18 03:59 Diphenhydramine HCl (Benadryl) 25 mg J-TUBE Q4H PRN PRN Reason: ITCHING Enoxaparin Sodium (Lovenox Inj) 60 mg SQ Q24H [facility] Last Admin: 04/24/18 00:23 Dose: 60 mg Escitalopram Oxalate (Lexapro) 20 mg J-TUBE DAILY [facility] Last Admin: 04/24/18 08:55 Dose: 20 mg Glycopyrrolate (Robinul Inj) 0.4 mg IV.PUSH Q8H PRN PRN Reason: thick secretions Hyoscyamine (Levsin) 0.125 mg J-TUBE Q6H [facility] Last Admin: 04/24/18 15:04 Dose: 0.125 mg Hyoscyamine (Levsin Liq) 0.125 mg J-TUBE Q4H PRN PRN Reason: MILD SECRETIONS Sodium Bicarbonate 75 meq/ (Sodium Chloride) 1,000 mls @ 100 mls/hr IV.CONT .Q10H [facility] Last Admin: 04/24/18 05:42 Dose: 100 mls/hr Ceftazidime/Avibactam 1.25 gm/ (Sodium Chloride) 50 mls @ 25 mls/hr IV.SIG Q8H [facility] Last Admin: 04/24/18 15:04 Dose: 25 mls/hr Lactobacillus Acidophilus (Lactinex) 1 tab J-TUBE TID [facility] Last Admin: 04/24/18 12:04 Dose: 1 tab Lactulose (Lactulose Liq) 30 ml PO DAILY PRN PRN Reason: SEVERE CONSITIPATION Levothyroxine Sodium (Synthroid) 100 mcg G-TUBE DAILY@0600 [facility] Last Admin: 04/24/18 05:42 Dose: 100 mcg Lorazepam (Ativan Inj) 1 mg IV.PUSH Q6H PRN PRN Reason: Anxiety Metoclopramide HCl (Reglan Inj) 5 mg IV.PUSH Q6HR [facility]; Protocol Last Admin: 04/24/18 12:04 Dose: 5 mg Morphine Sulfate (Roxanol Liq) 5 mg SL Q4H PRN PRN Reason: BREAKTHROUGH pain 2-10 Multivitamins (Theragran) 1 tab G-TUBE DAILY [facility] Last Admin: 04/24/18 08:56 Dose: 1 tab Ondansetron HCl (Zofran Inj) 4 mg IV.PUSH Q6H PRN PRN Reason: NAUSEA OR VOMITING Pantoprazole Sodium (Protonix Inj) 40 mg IV.PUSH Q12H [facility] Last Admin: 04/24/18 08:55 Dose: 40 mg Senna/Docusate Sodium (Emmie-Colace) 1 tab PO BID [facility] Last Admin: 04/24/18 08:55 Dose: 1 tab Sennosides (Senokot) 17.2 mg PO Q12H PRN PRN Reason: Moderate Constipation Simethicone (Phazyme Chew) 125 mg J-TUBE Q4H PRN PRN Reason: RELATING TO BLOATING Sodium Chloride (Ns Flush) 2 ml IV.FLUSH BID [facility] Last Admin: 04/24/18 09:21 Dose: 2 ml Sodium Chloride (Ns Flush) 2 ml IV.FLUSH PRN PRN PRN Reason: FLUSH AFTER USING IV ACCESS Temazepam (Restoril) 15 mg PO HS PRN PRN Reason: INSOMNIA Vancomycin HCl (Vancomycin Po) 500 mg PO QID [facility] Last Admin: 04/24/18 12:04 Dose: 500 mg Zinc Sulfate (Zinc-220) 220 mg J-TUBE DAILY [facility] Last Admin: 04/24/18 08:55 Dose: 220 mg Allergies Allergy/AdvReac Type Severity Reaction Status Date / Time epinephrine Allergy Severe TACHYCARDIA Verified 02/21/18 08:40 penicillin G Allergy Severe Hives Verified 02/21/18 08:40 peanut Allergy Intermediate ANAPHYLAXIS Verified 02/21/18 08:40 legumes Allergy Unknown Anaphylaxis Verified 03/06/18 21:48 soy Allergy Rash Verified 03/06/18 21:45 Home Medications Medication Instructions Recorded Confirmed Type cetirizine 10 mg PO HS 02/15/18 04/18/18 History escitalopram oxalate 20 mg FEEDING TUBE DAILY 02/15/18 04/18/18 History levothyroxine 100 mcg FEEDING TUBE DAILY 02/15/18 04/18/18 History ascorbic acid (vitamin C) 500 mg FEEDING TUBE BID 03/06/18 04/18/18 History multivitamin [Daily Multi-Vitamin] 1 tab FEEDING TUBE DAILY 03/06/18 04/18/18 History Exam Vital signs: Vital Signs 04/23/18 19:00 04/23/18 20:00 04/23/18 20:15 Temperature Pulse Rate 81 75 Respiratory Rate 34 H 27 H Blood Pressure 91/44 L 105/51 L Pulse Oximetry 100 100 100 04/24/18 00:00 04/24/18 00:52 04/24/18 03:32 Temperature Pulse Rate 62 69 Respiratory Rate 23 24 Blood Pressure 105/51 L Pulse Oximetry 100 97 04/24/18 03:45 04/24/18 04:00 04/24/18 08:00 Temperature 97.9 F Pulse Rate 68 61 Respiratory Rate 25 H 20 Blood Pressure 96/50 L 118/59 L Pulse Oximetry 97 96 98 04/24/18 09:04 04/24/18 10:53 04/24/18 11:00 Temperature Pulse Rate 61 61 64 Respiratory Rate 15 20 25 H Blood Pressure 107/55 L Pulse Oximetry 100 100 100 04/24/18 12:00 04/24/18 12:01 04/24/18 13:00 Temperature 98.0 F Pulse Rate 60 60 58 L Respiratory Rate 18 18 18 Blood Pressure 120/57 L 120/57 L 109/55 L Pulse Oximetry 100 100 100 04/24/18 14:00 04/24/18 15:00 04/24/18 15:41 Temperature Pulse Rate 57 L 60 59 L Respiratory Rate 21 21 20 Blood Pressure 116/57 L 115/56 L Pulse Oximetry 100 100 04/24/18 16:00 Temperature 98.7 F Pulse Rate 66 Respiratory Rate 31 H Blood Pressure 126/59 L Pulse Oximetry 92 L Intake & Output 04/23/18 04/24/18 04/24/18 18:59 06:59 18:59 Intake Total 1000 / 1000 Balance 1000 / 1000 Weight 54.1 kg Intake: IV 1000 / 1000 Sodium Bicarbonate 8.4% Inj 75 1000 / 1000 MEQ In 1/2 Normal Saline Inj 925 ML @ 100 mls/hr IV.CONT . Q10H [facility] Rx#:[id number] - Constitutional no acute distress, thin - Routine HEENT Exam Head: Present: normocephalic, atraumatic Eye: Present: EOMI, PERRL ENT: Present: mucous membranes moist, oropharynx clear Comments: edentulous - Routine Neck Exam Present: supple, full ROM Comments: trach inplace site OK - Routine Respiratory Exam Present: decreased breath sounds, CTA bilaterally - Routine Cardiovascular Exam Present: RRR, S1, S2 - Routine Abdominal Exam Present: soft, normoactive bowel sounds Comments: no hepatosplenomegaly or masses PEG in place - Routine Extremities Exam Present: full ROM Comments: no cyanosis, clubbing or edema - Routine Skin Exam Present: dry, warm Comments: no rash - Routine Neurological Exam Present: alert, oriented X3, CN II-XII intact, moving all extremities - Routine Psychiatric Exam Present: unable to assess Results - Labs CBC & Chem 7: 04/24/18 04:04 04/24/18 04:04 Labs: Laboratory Results - last 24 hr 04/23/18 04/23/18 04/23/18 18:35 21:45 21:45 WBC 5.5 RBC 2.77 L Hgb 7.9 L Hct 23.9 L MCV 86.2 MCH 28.6 MCHC 33.1 RDW 17.6 H Plt Count 165 MPV 9.3 Prelim Diff (Auto) Manual diff required Neut % (Auto) Lymph % (Auto) [place] % (Auto) Eos % (Auto) Baso % (Auto) Neut # (Auto) Lymph # (Auto) [place] # (Auto) Eos # (Auto) Baso # (Auto) WBC Differential Manual diff final Seg Neuts % (Manual) 48 Band Neuts % (Manual) 36 H Lymphocytes % (Manual) 5 L Monocytes % (Manual) 2 Eosinophils % (Manual) 5 H Basophils % (Manual) Metamyelocytes % (Man) 2 H Myelocytes % (Man) 1 H Blast Cells % (Manual) 1 H Abs Neuts (Manual) 4.8 Differential Comment . Platelet Estimate Normal Platelet Morphology Enlarged H Ovalocytes 1+ H [place] Cells 1+ H PT 10.9 INR 1.1 Sodium Potassium Chloride Carbon Dioxide Anion Gap BUN Creatinine Estimated GFR Random Glucose Lactic Acid Calcium Phosphorus Magnesium Total Bilirubin AST ALT Alkaline Phosphatase Troponin I Total Protein Albumin Nasal Screen MRSA (PCR) Not detected 04/23/18 04/23/18 04/23/18 21:45 21:45 21:45 WBC RBC Hgb Hct MCV MCH MCHC RDW Plt Count MPV Prelim Diff (Auto) Neut % (Auto) Lymph % (Auto) [place] % (Auto) Eos % (Auto) Baso % (Auto) Neut # (Auto) Lymph # (Auto) [place] # (Auto) Eos # (Auto) Baso # (Auto) WBC Differential Seg Neuts % (Manual) Band Neuts % (Manual) Lymphocytes % (Manual) Monocytes % (Manual) Eosinophils % (Manual) Basophils % (Manual) Metamyelocytes % (Man) Myelocytes % (Man) Blast Cells % (Manual) Abs Neuts (Manual) Differential Comment Platelet Estimate Platelet Morphology Ovalocytes [place] Cells PT INR Sodium 133 L Potassium 5.2 H Chloride 101 Carbon Dioxide 19.7 L Anion Gap 12 BUN 64 H Creatinine 1.53 H Estimated GFR 33 L Random Glucose 119 H Lactic Acid 1.0 Calcium 8.1 L Phosphorus 5.4 H Magnesium 2.0 Total Bilirubin 0.5 AST 21 ALT 32 Alkaline Phosphatase 150 H Troponin I Less than 0.02 L Total Protein 6.6 Albumin 2.3 L Nasal Screen MRSA (PCR) 04/24/18 04/24/18 04/24/18 04:04 04:04 04:04 WBC 6.0 RBC 2.83 L Hgb 8.1 L Hct 24.4 L MCV 86.3 MCH 28.7 MCHC 33.3 RDW 17.3 H Plt Count 166 MPV 9.3 Prelim Diff (Auto) Slide review pending Neut % (Auto) 87.5 H Lymph % (Auto) 6.3 L [place] % (Auto) 4.6 Eos % (Auto) 1.5 Baso % (Auto) 0.1 Neut # (Auto) 5.2 Lymph # (Auto) 0.4 L [place] # (Auto) 0.3 Eos # (Auto) 0.1 Baso # (Auto) 0.0 WBC Differential Manual diff final Seg Neuts % (Manual) 69 Band Neuts % (Manual) 13 H Lymphocytes % (Manual) 6 L Monocytes % (Manual) 1 Eosinophils % (Manual) Basophils % (Manual) 1 Metamyelocytes % (Man) 6 H Myelocytes % (Man) 3 H Blast Cells % (Manual) 1 H Abs Neuts (Manual) 5.5 Differential Comment . Platelet Estimate Low L Platelet Morphology Enlarged H Ovalocytes 1+ H [place] Cells PT 11.3 INR 1.1 Sodium 133 L Potassium 4.9 Chloride 100 Carbon Dioxide 20.8 L Anion Gap 12 BUN 64 H Creatinine 1.48 H Estimated GFR 35 L Random Glucose 141 H Lactic Acid Calcium 7.8 L Phosphorus 5.2 H Magnesium 1.9 Total Bilirubin 0.4 AST 21 ALT 31 Alkaline Phosphatase 154 H Troponin I Less than 0.02 L Total Protein 6.5 Albumin 2.2 L Nasal Screen MRSA (PCR) 04/24/18 04:04 WBC RBC Hgb Hct MCV MCH MCHC RDW Plt Count MPV Prelim Diff (Auto) Neut % (Auto) Lymph % (Auto) [place] % (Auto) Eos % (Auto) Baso % (Auto) Neut # (Auto) Lymph # (Auto) [place] # (Auto) Eos # (Auto) Baso # (Auto) WBC Differential Seg Neuts % (Manual) Band Neuts % (Manual) Lymphocytes % (Manual) Monocytes % (Manual) Eosinophils % (Manual) Basophils % (Manual) Metamyelocytes % (Man) Myelocytes % (Man) Blast Cells % (Manual) Abs Neuts (Manual) Differential Comment Platelet Estimate Platelet Morphology Ovalocytes [place] Cells PT INR Sodium Potassium Chloride Carbon Dioxide Anion Gap BUN Creatinine Estimated GFR Random Glucose Lactic Acid 0.6 Calcium Phosphorus Magnesium Total Bilirubin AST ALT Alkaline Phosphatase Troponin I Total Protein Albumin Nasal Screen MRSA (PCR) - Imaging Impressions Chest X-Ray 04/23/18 21:13 CONCLUSION: Slight interval worsening in aeration. patchy b/l intervals Assessment and Plan - Plan Chronic b/b infiltrates MDRO PSAE persistent colonisation PNA BLL, MDRO PSAE Diarrhea, c.diff negative H&N cancer sp trach, PEG contn avycaz repeat sputum clx
--- NOTE | 2018-04-24 18:47 | P.PNNP ---
Subjective Interval history: Transferred to [facility] [place] overnight. Renal function is better. <Vanda Monet - Last Filed: 04/24/18 19:58> Physical Exam Vital signs: Vital Signs 04/23/18 19:00 04/23/18 20:00 04/23/18 20:15 Temperature Pulse Rate 81 75 Respiratory Rate 34 H 27 H Blood Pressure 91/44 L 105/51 L Pulse Oximetry 100 100 100 04/24/18 00:00 04/24/18 00:52 04/24/18 03:32 Temperature Pulse Rate 62 69 Respiratory Rate 23 24 Blood Pressure 105/51 L Pulse Oximetry 100 97 04/24/18 03:45 04/24/18 04:00 04/24/18 08:00 Temperature 97.9 F Pulse Rate 68 61 Respiratory Rate 25 H 20 Blood Pressure 96/50 L 118/59 L Pulse Oximetry 97 96 98 04/24/18 09:04 04/24/18 10:53 04/24/18 11:00 Temperature Pulse Rate 61 61 64 Respiratory Rate 15 20 25 H Blood Pressure 107/55 L Pulse Oximetry 100 100 100 04/24/18 12:00 04/24/18 12:01 04/24/18 13:00 Temperature 98.0 F Pulse Rate 60 60 58 L Respiratory Rate 18 18 18 Blood Pressure 120/57 L 120/57 L 109/55 L Pulse Oximetry 100 100 100 04/24/18 14:00 04/24/18 15:00 04/24/18 15:41 Temperature Pulse Rate 57 L 60 59 L Respiratory Rate 21 21 20 Blood Pressure 116/57 L 115/56 L Pulse Oximetry 100 100 04/24/18 16:00 Temperature 98.7 F Pulse Rate 66 Respiratory Rate 31 H Blood Pressure 126/59 L Pulse Oximetry 92 L Intake & Output 04/23/18 04/24/18 04/24/18 18:59 06:59 18:59 Intake Total 1000 / 1000 1420 / 1420 Output Total 200 / 200 Balance 1000 / 1000 1220 / 1220 Weight 54.1 kg Intake: IV 1000 / 1000 1000 / 1000 Sodium Bicarbonate 8.4% Inj 75 1000 / 1000 1000 / 1000 MEQ In 1/2 Normal Saline Inj 925 ML @ 100 mls/hr IV.CONT . Q10H [facility] Rx#:[id number] Tube Feeding 420 / 420 Output: Urine 200 / 200 - Constitutional no acute distress, chronically ill appearing - Routine HEENT Exam Head: Present: normocephalic Comments: trach - Routine Neck Exam Present: full ROM - Routine Respiratory Exam Present: respiratory distress, rhonchi, crackles - Routine Cardiovascular Exam Present: RRR, S1, S2 - Routine Abdominal Exam Present: soft, normoactive bowel sounds - Routine Extremities Exam Present: normal capillary refill. Absent: edema - Routine Skin Exam Present: intact, dry, warm - Routine Neurological Exam Present: alert, oriented X3, moving all extremities - Detailed Neurological Exam: Coma Scale Eye Opening: Spontaneous Verbal Response: Oriented Motor Response: Obey commands Jaz Coma Scale Total: 15 <Vanda Monet - Last Filed: 04/24/18 19:58> Vital signs: Vital Signs 04/24/18 00:00 04/24/18 00:52 04/24/18 03:32 Temperature Pulse Rate 62 69 Respiratory Rate 23 24 Blood Pressure 105/51 L Pulse Oximetry 100 97 04/24/18 03:45 04/24/18 04:00 04/24/18 08:00 Temperature 97.9 F Pulse Rate 68 61 Respiratory Rate 25 H 20 Blood Pressure 96/50 L 118/59 L Pulse Oximetry 97 96 98 04/24/18 09:04 04/24/18 10:53 04/24/18 11:00 Temperature Pulse Rate 61 61 64 Respiratory Rate 15 20 25 H Blood Pressure 107/55 L Pulse Oximetry 100 100 100 04/24/18 12:00 04/24/18 12:01 04/24/18 13:00 Temperature 98.0 F Pulse Rate 60 60 58 L Respiratory Rate 18 18 18 Blood Pressure 120/57 L 120/57 L 109/55 L Pulse Oximetry 100 100 100 04/24/18 14:00 04/24/18 15:00 04/24/18 15:41 Temperature Pulse Rate 57 L 60 59 L Respiratory Rate 21 21 20 Blood Pressure 116/57 L 115/56 L Pulse Oximetry 100 100 04/24/18 16:00 04/24/18 20:00 04/24/18 21:00 Temperature 98.7 F Pulse Rate 66 62 65 Respiratory Rate 31 H 24 Blood Pressure 126/59 L Pulse Oximetry 92 L 97 Intake & Output 04/24/18 04/24/18 04/25/18 06:59 18:59 06:59 Intake Total 1000 / 1000 1420 / 1420 50 / 50 Output Total 200 / 200 Balance 1000 / 1000 1220 / 1220 50 / 50 Weight 54.1 kg Intake: IV 1000 / 1000 1000 / 1000 50 / 50 Sodium Bicarbonate 8.4% Inj 75 1000 / 1000 1000 / 1000 MEQ In 1/2 Normal Saline Inj 925 ML @ 100 mls/hr IV.CONT . Q10H [facility] Rx#:[id number] Avycaz Inj 1.25 GM In NS Inj 50 50 / 50 ML @ 25 mls/hr IV.SIG Q8H [facility] Rx#:[id number] Tube Feeding 420 / 420 Output: Urine 200 / 200 <Kike Oleary - Last Filed: 04/24/18 21:49> Assessment and Plan - Assessment (1) BETSEY (acute kidney injury) Code(s): N17.9 - Acute kidney failure, unspecified Status: Acute Plan: Baseline creatinine is normal. EBTSEY most likely prerenal azotemia, iatrogenic due to suspected GI bleeding. Also possibly renal hypoperfusion from hypotension, sepsis. Renal function improved. Continue bicarb gtt for now. She is also on free water with tube feeding. UA with UTI Avoid nephrotoxic agents. Monitor urine output Obtain daily labs. Expect improvement. (2) Pneumonia Code(s): J18.9 - Pneumonia, unspecified organism Status: Acute Plan: Management per medical team, ID consulted. - Plan We will sign off at this time. Call us if needed, <Vanda Monet - Last Filed: 04/24/18 19:58> - Assessment (1) BETSEY (acute kidney injury) Code(s): N17.9 - Acute kidney failure, unspecified Status: Acute (2) Pneumonia Code(s): J18.9 - Pneumonia, unspecified organism Status: Acute - Attending Attestation patient was seen and examined. Agree with above assessment and plan. <Kike Oleary - Last Filed: 04/24/18 21:49>
--- NOTE | 2018-04-24 19:24 | P.PNIM ---
Subjective Interval history: Mrs. Henson was afebrile with improved respiratory status overnight; she is currently breathing with T piece inhaler at flow rate of 5. Patient reports that she is breathing better today. She states that she is cold but otherwise does not have complaints. Tube feedings going well. No shortness of breath, chest pain, abdominal pain, or urinary/BM complaints. Physical Exam Vital signs: Vital Signs 04/23/18 20:00 04/23/18 20:15 04/24/18 00:00 Temperature Pulse Rate 75 62 Respiratory Rate 27 H 23 Blood Pressure 105/51 L 105/51 L Pulse Oximetry 100 100 100 04/24/18 00:52 04/24/18 03:32 04/24/18 03:45 Temperature Pulse Rate 69 Respiratory Rate 24 Blood Pressure Pulse Oximetry 97 97 04/24/18 04:00 04/24/18 08:00 04/24/18 09:04 Temperature 97.9 F Pulse Rate 68 61 61 Respiratory Rate 25 H 20 15 Blood Pressure 96/50 L 118/59 L Pulse Oximetry 96 98 100 04/24/18 10:53 04/24/18 11:00 04/24/18 12:00 Temperature 98.0 F Pulse Rate 61 64 60 Respiratory Rate 20 25 H 18 Blood Pressure 107/55 L 120/57 L Pulse Oximetry 100 100 100 04/24/18 12:01 04/24/18 13:00 04/24/18 14:00 Temperature Pulse Rate 60 58 L 57 L Respiratory Rate 18 18 21 Blood Pressure 120/57 L 109/55 L 116/57 L Pulse Oximetry 100 100 100 04/24/18 15:00 04/24/18 15:41 04/24/18 16:00 Temperature 98.7 F Pulse Rate 60 59 L 66 Respiratory Rate 21 20 31 H Blood Pressure 115/56 L 126/59 L Pulse Oximetry 100 92 L Intake & Output 04/24/18 04/24/18 04/25/18 06:59 18:59 06:59 Intake Total 1000 / 1000 1420 / 1420 Output Total 200 / 200 Balance 1000 / 1000 1220 / 1220 Weight 54.1 kg Intake: IV 1000 / 1000 1000 / 1000 Sodium Bicarbonate 8.4% Inj 75 1000 / 1000 1000 / 1000 MEQ In 1/2 Normal Saline Inj 925 ML @ 100 mls/hr IV.CONT . Q10H [facility] Rx#:[id number] Tube Feeding 420 / 420 Output: Urine 200 / 200 Narrative: Gen: NAD, resting in bed Skin: No visible lesions Neck: T piece inhaler; flow 5 CV: Regular rate and rhythm; normal perfusion Resp: CTAB, normal rate Abd: Soft, nontender, normal BS MSK: weak; did not fully assess extent of ROM / motor function Neuro: Grossly normal CN; grossly normal peripheral motor/sensory function Results - Labs CBC & Chem 7: 04/24/18 04:04 04/24/18 04:04 Laboratory Results - last 24 hr 04/23/18 04/23/18 04/23/18 18:35 21:45 21:45 WBC 5.5 RBC 2.77 L Hgb 7.9 L Hct 23.9 L MCV 86.2 MCH 28.6 MCHC 33.1 RDW 17.6 H Plt Count 165 MPV 9.3 Prelim Diff (Auto) Manual diff required Neut % (Auto) Lymph % (Auto) [place] % (Auto) Eos % (Auto) Baso % (Auto) Neut # (Auto) Lymph # (Auto) [place] # (Auto) Eos # (Auto) Baso # (Auto) WBC Differential Manual diff final Seg Neuts % (Manual) 48 Band Neuts % (Manual) 36 H Lymphocytes % (Manual) 5 L Monocytes % (Manual) 2 Eosinophils % (Manual) 5 H Basophils % (Manual) Metamyelocytes % (Man) 2 H Myelocytes % (Man) 1 H Blast Cells % (Manual) 1 H Abs Neuts (Manual) 4.8 Differential Comment . Platelet Estimate Normal Platelet Morphology Enlarged H Ovalocytes 1+ H [place] Cells 1+ H PT 10.9 INR 1.1 Sodium Potassium Chloride Carbon Dioxide Anion Gap BUN Creatinine Estimated GFR Random Glucose Lactic Acid Calcium Phosphorus Magnesium Total Bilirubin AST ALT Alkaline Phosphatase Troponin I Total Protein Albumin Nasal Screen MRSA (PCR) Not detected 04/23/18 04/23/18 04/23/18 21:45 21:45 21:45 WBC RBC Hgb Hct MCV MCH MCHC RDW Plt Count MPV Prelim Diff (Auto) Neut % (Auto) Lymph % (Auto) [place] % (Auto) Eos % (Auto) Baso % (Auto) Neut # (Auto) Lymph # (Auto) [place] # (Auto) Eos # (Auto) Baso # (Auto) WBC Differential Seg Neuts % (Manual) Band Neuts % (Manual) Lymphocytes % (Manual) Monocytes % (Manual) Eosinophils % (Manual) Basophils % (Manual) Metamyelocytes % (Man) Myelocytes % (Man) Blast Cells % (Manual) Abs Neuts (Manual) Differential Comment Platelet Estimate Platelet Morphology Ovalocytes [place] Cells PT INR Sodium 133 L Potassium 5.2 H Chloride 101 Carbon Dioxide 19.7 L Anion Gap 12 BUN 64 H Creatinine 1.53 H Estimated GFR 33 L Random Glucose 119 H Lactic Acid 1.0 Calcium 8.1 L Phosphorus 5.4 H Magnesium 2.0 Total Bilirubin 0.5 AST 21 ALT 32 Alkaline Phosphatase 150 H Troponin I Less than 0.02 L Total Protein 6.6 Albumin 2.3 L Nasal Screen MRSA (PCR) 04/24/18 04/24/18 04/24/18 04:04 04:04 04:04 WBC 6.0 RBC 2.83 L Hgb 8.1 L Hct 24.4 L MCV 86.3 MCH 28.7 MCHC 33.3 RDW 17.3 H Plt Count 166 MPV 9.3 Prelim Diff (Auto) Slide review pending Neut % (Auto) 87.5 H Lymph % (Auto) 6.3 L [place] % (Auto) 4.6 Eos % (Auto) 1.5 Baso % (Auto) 0.1 Neut # (Auto) 5.2 Lymph # (Auto) 0.4 L [place] # (Auto) 0.3 Eos # (Auto) 0.1 Baso # (Auto) 0.0 WBC Differential Manual diff final Seg Neuts % (Manual) 69 Band Neuts % (Manual) 13 H Lymphocytes % (Manual) 6 L Monocytes % (Manual) 1 Eosinophils % (Manual) Basophils % (Manual) 1 Metamyelocytes % (Man) 6 H Myelocytes % (Man) 3 H Blast Cells % (Manual) 1 H Abs Neuts (Manual) 5.5 Differential Comment . Platelet Estimate Low L Platelet Morphology Enlarged H Ovalocytes 1+ H [place] Cells PT 11.3 INR 1.1 Sodium 133 L Potassium 4.9 Chloride 100 Carbon Dioxide 20.8 L Anion Gap 12 BUN 64 H Creatinine 1.48 H Estimated GFR 35 L Random Glucose 141 H Lactic Acid Calcium 7.8 L Phosphorus 5.2 H Magnesium 1.9 Total Bilirubin 0.4 AST 21 ALT 31 Alkaline Phosphatase 154 H Troponin I Less than 0.02 L Total Protein 6.5 Albumin 2.2 L Nasal Screen MRSA (PCR) 04/24/18 04:04 WBC RBC Hgb Hct MCV MCH MCHC RDW Plt Count MPV Prelim Diff (Auto) Neut % (Auto) Lymph % (Auto) [place] % (Auto) Eos % (Auto) Baso % (Auto) Neut # (Auto) Lymph # (Auto) [place] # (Auto) Eos # (Auto) Baso # (Auto) WBC Differential Seg Neuts % (Manual) Band Neuts % (Manual) Lymphocytes % (Manual) Monocytes % (Manual) Eosinophils % (Manual) Basophils % (Manual) Metamyelocytes % (Man) Myelocytes % (Man) Blast Cells % (Manual) Abs Neuts (Manual) Differential Comment Platelet Estimate Platelet Morphology Ovalocytes [place] Cells PT INR Sodium Potassium Chloride Carbon Dioxide Anion Gap BUN Creatinine Estimated GFR Random Glucose Lactic Acid 0.6 Calcium Phosphorus Magnesium Total Bilirubin AST ALT Alkaline Phosphatase Troponin I Total Protein Albumin Nasal Screen MRSA (PCR) Microbiology 04/23/18 21:45 Blood - Peripheral Aerobic Blood Culture - Preliminary No growth in 1 day 04/23/18 21:45 Blood - Peripheral Anaerobic Blood Culture - Preliminary No growth in 1 day 04/23/18 21:39 Blood - Peripheral Aerobic Blood Culture - Preliminary No growth in 1 day 04/23/18 21:39 Blood - Peripheral Anaerobic Blood Culture - Preliminary No growth in 1 day - Imaging Impressions Chest X-Ray 04/23/18 21:13 CONCLUSION: Slight interval worsening in aeration. 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 Henson is a 73 yo F with: Respiratory recent respiratory failure Pneumonia s/p trach 03/11 Impression: Respiratory failure resulting in transfer from [place] to ICU last night. Patient with recently diagnosed LLL. No tachycardia. Improvement from previously; low suspicion for PE. recently diagnosed pneumonia; multidrug resistant psy CXR 04/23- slightly worsening interval aeration 04/24- improved respiratory function today. Normal saturations on T piece at 5L/ min -ID consulted for pneumonia -Repeat sputum culture -Continue Avycaz -Pulmonology consulted -Duonebs -Continue to monitor saturations; titrate O2 as needed -Continue DVT treatment GI Impression: PMH GERD. On tube feeds -Continue tube feedings while NPO -Pantoprazole IV every 12hrs -[employer]el[employer] consulted -Change to vital 1.5 x55ml/hr w/ 2 hr hold for Levothyroxine Weakness/laryngeal cancer Severe protein calorie malnutrition Impression: Frail in appearance with BMI 20.5; on tube feeds with laryngeal cancer -continue current feeding regimen -Monitor electrolytes -Will consult PT Hypothyroidism -Levothyroxine Depression -Wellbutrin -Escitalopram ID Impression: Recent Pneumonia w/ resistant pseudomonas. Recent Cdiff; stool testing negative -Continue management per ID for pneumonia -Will stop oral Vanc per ID HEME Impression: DVT, anemia. Myelodysplastic disorder -Lovenox 60 mg subcu daily -dose adjusted due to low GFR -Monitor Hgb; currently stable ~8 -Per EMR, has required multiple transfusions every ~2 weeks Renal Impression: Baseline Cr 1 ~1 02/2018. Has persistently had mild renal injury -Continue IV hydration -Nephrology consulted DVT GI prophylaxis -Teds SCDs -Lovenox -Pantoprazole Code Status: Full Discharge Planning: Anticipate transfer to floor tomorrow (4) Hypothyroidism Qualifiers: Hypothyroidism type: unspecified Qualified Code(s): E03.9 - Hypothyroidism, unspecified
--- NOTE | 2018-04-25 00:32 | ECG ---
Date Performed: 04/23/2018 Time Performed: 21:30:37 PTAGE: 73 years EKG: Sinus rhythm WITH OCCASIONAL SUPRAVENTRICULAR PREMATURE COMPLEXES BORDERLINE LEFT AXIS DEVIATION BORDERLINE ECG PREVIOUS TRACING : 03/07/2018 01.15 Since the previous tracing, no significant change noted DOCTOR: Bala Ramos Interpretating Date/Time 04/25/2018 00:30:58
[2018-04-25] MEDS: Sodium Bicarbonate 8.4% Inj 75 MEQ in Sodium Chloride 0.45 % Inj 925 ML IV.CONT SCH ×3 (03:47→22:03)
[2018-04-25 04:24] LABS: Calcium 7.9 mg/dL (8.5-10.1); Carbon Dioxide 27.6 meq/L (21.0-32.0); Potassium 4.3 meq/L (3.5-5.1)
[2018-04-25] MEDS: Levothyroxine 100 MCG Tablet G-TUBE SCH (05:27)
[2018-04-25] MEDS: Chlorhexidine Gluconate 2% 1 Pack (2 Cloths) TOPICAL SCH (05:27)
[2018-04-25] MEDS: Senna/Docusate Sodium 8.6/50 MG Tablet PO SCH ×2 (10:20→20:04)
[2018-04-25] MEDS: Ceftazidime/Avibactam Inj 1.25 GM in Sodium Chlor 0.9% Inj 50 ML IV.SIG SCH ×2 (10:20→17:56)
[2018-04-25] MEDS: buPROPion 75 MG Tablet J-TUBE SCH ×2 (10:21→20:04)
[2018-04-25] MEDS: Ascorbic Acid 500 MG Tablet G-TUBE SCH ×2 (10:21→22:03)
[2018-04-25] MEDS: Lactobacillus Acidophilus/L. Spores Tablet J-TUBE SCH ×2 (10:21→14:17)
[2018-04-25] MEDS: Pantoprazole Inj 40 MG Vial IV.PUSH SCH ×2 (10:23→20:04)
--- NOTE | 2018-04-25 10:32 | P.PNIM ---
Subjective Interval history: Patient reports she is feeling better today. Breathing more comfortably. No acute issues. Physical Exam Vital signs: Vital Signs 04/24/18 10:53 04/24/18 11:00 04/24/18 12:00 Temperature 98.0 F Pulse Rate 61 64 60 Respiratory Rate 20 25 H 18 Blood Pressure 107/55 L 120/57 L Pulse Oximetry 100 100 100 04/24/18 12:01 04/24/18 13:00 04/24/18 14:00 Temperature Pulse Rate 60 58 L 57 L Respiratory Rate 18 18 21 Blood Pressure 120/57 L 109/55 L 116/57 L Pulse Oximetry 100 100 100 04/24/18 15:00 04/24/18 15:41 04/24/18 16:00 Temperature 98.7 F Pulse Rate 60 59 L 66 Respiratory Rate 21 20 31 H Blood Pressure 115/56 L 126/59 L Pulse Oximetry 100 92 L 04/24/18 17:00 04/24/18 18:00 04/24/18 19:00 Temperature Pulse Rate 66 65 61 Respiratory Rate 28 H 16 18 Blood Pressure 108/54 L 120/59 L 110/55 L Pulse Oximetry 97 98 98 04/24/18 20:00 04/24/18 21:00 04/24/18 22:00 Temperature 98.5 F Pulse Rate 65 86 80 Respiratory Rate 34 H 40 H 23 Blood Pressure 113/56 L 105/52 L 103/51 L Pulse Oximetry 95 93 L 96 04/24/18 23:00 04/25/18 00:00 04/25/18 01:00 Temperature 98.4 F Pulse Rate 79 77 76 Respiratory Rate 28 H 22 21 Blood Pressure 101/51 L 110/56 L 115/58 L Pulse Oximetry 96 98 98 04/25/18 02:00 04/25/18 03:00 04/25/18 03:01 Temperature Pulse Rate 79 79 82 Respiratory Rate 28 H 51 H 36 H Blood Pressure 105/51 L 108/86 Pulse Oximetry 98 93 L 92 L 04/25/18 04:00 04/25/18 05:00 04/25/18 06:00 Temperature 98.4 F Pulse Rate 93 H 66 62 Respiratory Rate 40 H 28 H Blood Pressure 100/50 L 113/56 L Pulse Oximetry 93 L 97 04/25/18 09:06 Temperature Pulse Rate 70 Respiratory Rate 22 Blood Pressure Pulse Oximetry 100 Intake & Output 04/24/18 04/25/18 04/25/18 18:59 06:59 18:59 Intake Total 1420 / 1420 1614 / 1614 Output Total 200 / 200 1150 / 1150 Balance 1220 / 1220 464 / 464 Weight 59 kg Intake: IV 1000 / 1000 1100 / 1100 Sodium Bicarbonate 8.4% Inj 75 1000 / 1000 1000 / 1000 MEQ In 1/2 Normal Saline Inj 925 ML @ 100 mls/hr IV.CONT . Q10H [facility] Rx#:[id number] Avycaz Inj 1.25 GM In NS Inj 50 100 / 100 ML @ 25 mls/hr IV.SIG Q8H [facility] Rx#:[id number] Tube Feeding 420 / 420 514 / 514 Output: Urine 200 / 200 700 / 700 Gastric Drainage 450 / 450 Jejunostomy Tube 450 / 450 Other: # Bowel Movements 0 Narrative: Gen: Elderly W/F alert and NAD, resting in bed Skin: No visible lesions Neck: Trach in place with PM valve CV: Regular rate and rhythm; normal perfusion Resp:Occ Basal crackles and wheeze Abd: Soft, nontender, normal BS. No Mass Results - Labs CBC & Chem 7: 04/24/18 04:04 04/25/18 03:17 Laboratory Results - last 24 hr 04/25/18 03:17 Sodium 140 Potassium 4.3 Chloride 102 Carbon Dioxide 27.6 Anion Gap 10 BUN 51 H Creatinine 1.27 H Estimated GFR 41 L Random Glucose 116 H Calcium 7.9 L Microbiology 04/25/18 03:00 Sputum - Tracheal Aspirate Gram Stain - Final 04/23/18 21:45 Blood - Peripheral Aerobic Blood Culture - Preliminary No growth in 1 day 04/23/18 21:45 Blood - Peripheral Anaerobic Blood Culture - Preliminary No growth in 1 day 04/23/18 21:39 Blood - Peripheral Aerobic Blood Culture - Preliminary No growth in 1 day 04/23/18 21:39 Blood - Peripheral Anaerobic Blood Culture - Preliminary No growth in 1 day Assessment and Plan - Assessment (1) Pneumonia Code(s): J18.9 - Pneumonia, unspecified organism Status: Acute (2) GERD (gastroesophageal reflux disease) Code(s): K21.9 - Gastro-esophageal reflux disease without esophagitis Status: Acute (3) DVT (deep venous thrombosis) Code(s): I82.409 - Acute embolism and thrombosis of unspecified deep veins of unspecified lower extremity Status: Acute (4) Hypothyroidism Code(s): E03.9 - Hypothyroidism, unspecified Status: Chronic (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 Normal saturations on T piece at 5L/ min -ID following -Repeat sputum culture -Continue Avycaz -Pulmonology following -Duonebs -Continue to monitor saturations; titrate O2 as needed -Continue DVT treatment GERD. On tube feeds -Continue tube feedings while NPO -Pantoprazole IV every 12hrs -Pot Reliner consulted -Change to vital 1.5 x55ml/hr w/ 2 hr hold for Levothyroxine Weakness/laryngeal cancer Severe protein calorie malnutrition Frail in appearance with BMI 20.5; on tube feeds with laryngeal cancer -continue current feeding regimen -Monitor electrolytes -Continue PT Hypothyroidism -Levothyroxine Depression -Wellbutrin -Escitalopram Recent Pneumonia w/ resistant pseudomonas. Recent Cdiff; stool testing negative -Continue management per ID for pneumonia -Will stop oral Vanc per ID DVT, anemia. Myelodysplastic disorder -Lovenox 60 mg subcu daily -dose adjusted due to low GFR -Monitor Hgb; currently stable ~8 -Per EMR, has required multiple transfusions every ~2 weeks Chronic renal insufficiency: Baseline Cr 1 ~1 02/2018. Has persistently had mild renal injury -Continue IV hydration -Nephrology consulted DVT GI prophylaxis -Teds SCDs -Lovenox -Pantoprazole Discharge Planning: Transfer to medical floor. Back to [place] gume. (4) Hypothyroidism Qualifiers: Hypothyroidism type: unspecified Qualified Code(s): E03.9 - Hypothyroidism, unspecified
--- NOTE | 2018-04-25 12:34 | P.PN ---
Subjective Interval history: Patient alert and on a T collar. Sats 97. Mild trach secretions. Physical Exam Vital signs: Vital Signs 04/24/18 13:00 04/24/18 14:00 04/24/18 15:00 Temperature Pulse Rate 58 L 57 L 60 Respiratory Rate 18 21 21 Blood Pressure 109/55 L 116/57 L 115/56 L Pulse Oximetry 100 100 100 04/24/18 15:41 04/24/18 16:00 04/24/18 17:00 Temperature 98.7 F Pulse Rate 59 L 66 66 Respiratory Rate 20 31 H 28 H Blood Pressure 126/59 L 108/54 L Pulse Oximetry 92 L 97 04/24/18 18:00 04/24/18 19:00 04/24/18 20:00 Temperature 98.5 F Pulse Rate 65 61 65 Respiratory Rate 16 18 34 H Blood Pressure 120/59 L 110/55 L 113/56 L Pulse Oximetry 98 98 95 04/24/18 21:00 04/24/18 22:00 04/24/18 23:00 Temperature Pulse Rate 86 80 79 Respiratory Rate 40 H 23 28 H Blood Pressure 105/52 L 103/51 L 101/51 L Pulse Oximetry 93 L 96 96 04/25/18 00:00 04/25/18 01:00 04/25/18 02:00 Temperature 98.4 F Pulse Rate 77 76 79 Respiratory Rate 22 21 28 H Blood Pressure 110/56 L 115/58 L 105/51 L Pulse Oximetry 98 98 98 04/25/18 03:00 04/25/18 03:01 04/25/18 04:00 Temperature 98.4 F Pulse Rate 79 82 93 H Respiratory Rate 51 H 36 H 40 H Blood Pressure 108/86 100/50 L Pulse Oximetry 93 L 92 L 93 L 04/25/18 05:00 04/25/18 06:00 04/25/18 08:00 Temperature Pulse Rate 66 62 Respiratory Rate 28 H 22 Blood Pressure 113/56 L Pulse Oximetry 97 04/25/18 09:06 Temperature Pulse Rate 70 Respiratory Rate 22 Blood Pressure Pulse Oximetry 100 Intake & Output 04/24/18 04/25/18 04/25/18 18:59 06:59 18:59 Intake Total 1420 / 1420 1614 / 1614 Output Total 200 / 200 1150 / 1150 Balance 1220 / 1220 464 / 464 Weight 59 kg Intake: IV 1000 / 1000 1100 / 1100 Sodium Bicarbonate 8.4% Inj 75 1000 / 1000 1000 / 1000 MEQ In 1/2 Normal Saline Inj 925 ML @ 100 mls/hr IV.CONT . Q10H [facility] Rx#:[id number] Avycaz Inj 1.25 GM In NS Inj 50 100 / 100 ML @ 25 mls/hr IV.SIG Q8H [facility] Rx#:[id number] Tube Feeding 420 / 420 514 / 514 Output: Urine 200 / 200 700 / 700 Gastric Drainage 450 / 450 Jejunostomy Tube 450 / 450 Other: # Bowel Movements 0 Narrative: Gen: Elderly W/F alert and NAD, resting in bed Skin: No visible lesions Neck: Trach in place with PM valve CV: Regular rate and rhythm; normal perfusion Resp:Occ Basal crackles and wheeze Abd: Soft, nontender, normal BS. No Mass MSK: weak legs Neuro: Grossly normal CN; grossly normal peripheral motor/sensory function Results - Labs CBC & Chem 7: 04/24/18 04:04 04/25/18 03:17 Laboratory Results - last 24 hr 04/25/18 03:17 Sodium 140 Potassium 4.3 Chloride 102 Carbon Dioxide 27.6 Anion Gap 10 BUN 51 H Creatinine 1.27 H Estimated GFR 41 L Random Glucose 116 H Calcium 7.9 L Microbiology 04/23/18 21:45 Blood - Peripheral Aerobic Blood Culture - Preliminary No growth in 2 days 04/23/18 21:45 Blood - Peripheral Anaerobic Blood Culture - Preliminary No growth in 2 days 04/23/18 21:39 Blood - Peripheral Aerobic Blood Culture - Preliminary No growth in 2 days 04/23/18 21:39 Blood - Peripheral Anaerobic Blood Culture - Preliminary No growth in 2 days 04/25/18 03:00 Sputum - Tracheal Aspirate Gram Stain - Final Assessment and Plan - Assessment (1) Respiratory failure Code(s): J96.90 - Respiratory failure, unspecified, unspecified whether with hypoxia or hypercapnia Status: Acute (2) Pneumonia Code(s): J18.9 - Pneumonia, unspecified organism Status: Acute (3) Status post trachelectomy Code(s): Z90.710 - Acquired absence of both cervix and uterus Status: Acute (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 Cont T Collar at 35 %. 2. Duonebs qid. 3. PM valve to talk daytime 4. CBC,BMP 5. Tube feeds at 60 CC, jevity 6. Chest Xray
--- NOTE | 2018-04-25 21:08 | MB ---
cc: Vic Martin MD DATE: 04/25/2018 REASON FOR CONSULTATION: Respiratory insufficiency and history of tracheostomy. HISTORY OF PRESENT ILLNESS: This is a 73-year-old white female with a previous history of respiratory failure, recurrent aspiration, history of upper airway squamous cell carcinoma, status post radiation therapy, had undergone a tracheostomy during her previous admission here and was in long-term maintenance care following which the patient was weaned off the ventilator and had been on a trach collar. 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 She is presently on a T-bar and awake and is able to converse with a [place] valve in place and her most recent chest x-ray that was done demonstrated scattered infiltrates, atelectasis bilaterally, but her O2 saturations have been maintained over 96% on 40% FiO2. PAST MEDICAL HISTORY: As mentioned before, is significant for carcinoma of the supraglottic region, status post radiation. She has had a skin cancers removed from the skin of the forehead has been treated for [place] esophagus and has a history of hypothyroidism, and COPD. PAST SURGICAL HISTORY: She has had a cholecystectomy, colonoscopy, tracheostomy, PEG tube placement, hernia repairs, tonsillectomy remotely and esophageal dilatations done. ALLERGIES: NO DRUG ALLERGIES ARE LISTED. FAMILY HISTORY: Noncontributory. HABITS: The patient was a smoker, 1 pack per day for about 30 years and then quit. No significant alcohol. REVIEW OF SYSTEMS: The patient is unable to respond to all questions; however, denies any chest pain. She is not short of breath at rest. She has weakness of her arms and legs, but is able to stand up with help and she has some abdominal cramping and loose stools. Also, has joint pains of her extremities, but no leg swelling. PHYSICAL EXAMINATION: GENERAL: This is an emaciated ill-looking elderly lady pale and mildly dyspneic at rest. She is lying flat. She has a trach collar in place. VITAL SIGNS: Blood pressure 110/60, pulse is 85, respirations 22, temperature 97.2. HEENT: Normocephalic. Pupils are reactive. Sclerae were injected. Tongue is moist. Throat was clear. NECK: Supple. No bruits. No venous distention. CHEST: Equal movements with a few scattered crackles bilaterally. HEART: The heart sounds were regular, S1 and S2 with no murmur. No S3. ABDOMEN: Soft and scaphoid, without masses. PEG tube in place. Bowel sounds are faint. EXTREMITIES: No lesions. There is minimal edema. Peripheral pulses are diminished. There is muscle wasting of the lower extremities with 1+ reflexes and no gross motor deficits. SKIN: Dry and scaly. IMPRESSION: 1. Chronic respiratory failure. 2. Aspiration pneumonia, resolving. 3. Status post tracheostomy and PEG tube placement. 4. History of upper airway squamous cell carcinoma. PLAN: The patient will be placed on T-collar at 30% FiO2. Frequent tracheal suctioning and lavage will be done as needed. Mucomyst added twice daily with nebulizer solution and DuoNeb solution added q.6 hours. We will get a followup chest x-ray on Saturday and antibiotic therapy will be continued per infectious disease recommendations. Thank you for this consultation. VBere Martin MD VJD/ct , 07:01 PM , 07:12 PM
[2018-04-26] MEDS: Ceftazidime/Avibactam Inj 1.25 GM in Sodium Chlor 0.9% Inj 50 ML IV.SIG SCH ×3 (00:16→15:28)
[2018-04-26] MEDS: Enoxaparin Inj 60 MG/0.6 ML Syringe SQ SCH (00:16)
[2018-04-26] MEDS: Levothyroxine 100 MCG Tablet G-TUBE SCH (05:44)
[2018-04-26 09:07] LABS: Baso % (Auto) 0.5 % (0.0-2.0); Eos # (Auto) 0.5 th/mm3 (0.0-0.4); Eos % (Auto) 7.6 % (0.0-4.0); Hematocrit 22.4 % (35.0-46.0); Hemoglobin 7.6 gm/dL (11.6-15.3); Lymph # (Auto) 0.7 th/mm3 (1.0-4.8); Lymph % (Auto) 11.6 % (9.0-44.0); Mean Corpuscular HGB Conc 33.8 % (32.0-36.0); Mean Corpuscular Volume 85.8 fL (80.0-100.0); Mean Platelet Volume 9.4 fL (7.0-11.0); Mono # (Auto) 0.7 th/mm3 (0.0-0.9); Neut # (Auto) 4.4 th/mm3 (1.8-7.7); Neut % (Auto) 69.3 % (16.0-70.0); Platelet Count 143 th/mm3 (150-450); Red Blood Count 2.61 mil/mm3 (4.00-5.30); Red Cell Distribution Width 17.4 % (11.6-17.2); White Blood Count 6.4 th/mm3 (4.0-11.0)
[2018-04-26 09:32] LABS: Calcium 7.8 mg/dL (8.5-10.1); Carbon Dioxide 31.1 meq/L (21.0-32.0); Potassium 4.4 meq/L (3.5-5.1)
[2018-04-26] MEDS: Pantoprazole Inj 40 MG Vial IV.PUSH SCH ×2 (09:50→21:00)
[2018-04-26] MEDS: buPROPion 75 MG Tablet J-TUBE SCH ×2 (09:50→21:00)
[2018-04-26] MEDS: Ascorbic Acid 500 MG Tablet G-TUBE SCH (09:50)
[2018-04-26] MEDS: Lactobacillus Acidophilus/L. Spores Tablet J-TUBE SCH ×4 (09:50→18:00)
[2018-04-26 10:02] LABS: Eosinophils 10 % (0-4); Lymphocytes 14 % (9-44); Metamyelocytes 1 % (0-1); Monocytes 8 % (0-8); Toxic Granulation 1+; Toxic Vacuolation Present
[2018-04-26 10:04] LABS: Ovalocytes 1+
[2018-04-26] MEDS: Sodium Bicarbonate 8.4% Inj 75 MEQ in Sodium Chloride 0.45 % Inj 925 ML IV.CONT SCH (10:35)
[2018-04-26] MEDS: Chlorhexidine Gluconate 2% 1 Pack (2 Cloths) TOPICAL SCH (10:59)
[2018-04-26] MEDS: Simethicone 125 MG Chew Tablet J-TUBE PRN (11:03)
--- NOTE | 2018-04-26 11:24 | P.PNIM ---
Subjective Interval history: RINA COELLO. Diarrhea X5 today. patient reports mild abdominal discomfort. Physical Exam Vital signs: Vital Signs 04/25/18 12:00 04/25/18 14:00 04/25/18 15:28 Temperature 97.6 F 97.8 F Pulse Rate 88 65 Respiratory Rate 22 22 Blood Pressure 103/50 L 145/65 H Pulse Oximetry 92 L 04/25/18 16:00 04/25/18 17:18 04/25/18 20:00 Temperature 97.8 F 99.1 F Pulse Rate Respiratory Rate 22 21 Blood Pressure 145/65 H 132/60 Pulse Oximetry 95 96 96 04/25/18 21:00 04/25/18 21:01 04/26/18 00:00 Temperature 98.5 F Pulse Rate 73 Respiratory Rate 16 21 Blood Pressure 171/73 H Pulse Oximetry 96 97 04/26/18 03:34 04/26/18 04:32 04/26/18 08:00 Temperature 98.6 F 98.8 F Pulse Rate 103 H 82 Respiratory Rate 20 21 16 Blood Pressure 139/65 116/56 L Pulse Oximetry 98 98 04/26/18 11:11 Temperature Pulse Rate Respiratory Rate Blood Pressure Pulse Oximetry 95 Intake & Output 04/25/18 04/26/18 04/26/18 18:59 06:59 18:59 Intake Total 1564 / 1564 2365 / 2365 1100 / 1100 Output Total 1150 / 1150 650 / 650 Balance 414 / 414 1715 / 1715 1100 / 1100 Weight 65.8 kg Intake: IV 1050 / 1050 1050 / 1050 1100 / 1100 Sodium Bicarbonate 8.4% Inj 75 1000 / 1000 1000 / 1000 1000 / 1000 MEQ In 1/2 Normal Saline Inj 925 ML @ 100 mls/hr IV.CONT . Q10H ANN Rx#:[id number] Avycaz Inj 1.25 GM In NS Inj 50 50 / 50 50 / 50 100 / 100 ML @ 25 mls/hr IV.SIG Q8H ANN Rx#:[id number] Tube Feeding 514 / 514 1215 / 1215 Tube Irrigant 100 / 100 Output: Urine 700 / 700 650 / 650 Gastric Drainage 450 / 450 Jejunostomy Tube 450 / 450 Other: Date of Last Bowel Movement 04/26/18 # Bowel Movements 0 1 Narrative: Gen: Elderly W/F alert and NAD, resting in bed Skin: No visible lesions Neck: Trach in place with PM valve CV: Regular rate and rhythm; normal perfusion Resp:Occ Basal crackles and wheeze Abd: Soft, diffuse mild tenderness to palpation Results - Labs CBC & Chem 7: 04/26/18 08:03 04/26/18 08:03 Laboratory Results - last 24 hr 04/26/18 04/26/18 08:03 08:03 WBC 6.4 RBC 2.61 L Hgb 7.6 L Hct 22.4 L MCV 85.8 MCH 29.0 MCHC 33.8 RDW 17.4 H Plt Count 143 L MPV 9.4 Prelim Diff (Auto) Slide review pending Neut % (Auto) 69.3 Lymph % (Auto) 11.6 [place] % (Auto) 11.0 H Eos % (Auto) 7.6 H Baso % (Auto) 0.5 Neut # (Auto) 4.4 Lymph # (Auto) 0.7 L [place] # (Auto) 0.7 Eos # (Auto) 0.5 H Baso # (Auto) 0.0 WBC Differential Manual diff final Seg Neuts % (Manual) 56 Band Neuts % (Manual) 9 H Lymphocytes % (Manual) 14 Monocytes % (Manual) 8 Eosinophils % (Manual) 10 H Basophils % (Manual) 2 Metamyelocytes % (Man) 1 Abs Neuts (Manual) 4.2 Differential Comment . Toxic Granulation 1+ H Toxic Vacuolation Present H Platelet Estimate Low L Platelet Morphology Enlarged H Ovalocytes 1+ H Sodium 137 Potassium 4.4 Chloride 95 L Carbon Dioxide 31.1 Anion Gap 11 BUN 36 H Creatinine 1.04 H Estimated GFR 52 L Random Glucose 86 Calcium 7.8 L Microbiology 04/23/18 21:45 Blood - Peripheral Aerobic Blood Culture - Preliminary No growth in 3 days 04/23/18 21:45 Blood - Peripheral Anaerobic Blood Culture - Preliminary No growth in 3 days 04/23/18 21:39 Blood - Peripheral Aerobic Blood Culture - Preliminary No growth in 3 days 04/23/18 21:39 Blood - Peripheral Anaerobic Blood Culture - Preliminary No growth in 3 days 04/25/18 03:00 Sputum - Tracheal Aspirate Gram Stain - Final Assessment and Plan - Assessment (1) Pneumonia Code(s): J18.9 - Pneumonia, unspecified organism Status: Acute (2) GERD (gastroesophageal reflux disease) Code(s): K21.9 - Gastro-esophageal reflux disease without esophagitis Status: Acute (3) DVT (deep venous thrombosis) Code(s): I82.409 - Acute embolism and thrombosis of unspecified deep veins of unspecified lower extremity Status: Acute (4) Hypothyroidism Code(s): E03.9 - Hypothyroidism, unspecified Status: Chronic (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 -ID following -Repeat sputum culture -Continue Avycaz. Discussed with infectious disease. She will need a couple of weeks of antibiotics IV. -Pulmonology following -Duonebs -Continue to monitor saturations; titrate O2 as needed -Continue DVT treatment GERD. On tube feeds -Continue tube feedings while NPO -Pantoprazole IV every 12hrs -[place] Machine Operator consulted -Continue vital 1.5 x55ml/hr w/ 2 hr hold for Levothyroxine Weakness/laryngeal cancer Severe protein calorie malnutrition Frail in appearance with BMI 20.5; on tube feeds with laryngeal cancer -continue current feeding regimen -Monitor electrolytes -Continue PT Hypothyroidism -Levothyroxine Depression -Wellbutrin -Escitalopram Recent Pneumonia w/ resistant pseudomonas. Recent Cdiff; stool testing negative -Continue management per ID for pneumonia with Avycaz. - Follow repeat sputum culture DVT, anemia. Myelodysplastic disorder -Lovenox 60 mg subcu daily -dose adjusted due to low GFR -Monitor Hgb; trending down again to 7.6 -Per EMR, has required multiple transfusions every ~2 weeks. May need repeat blood transfusion tomorrow. Chronic renal insufficiency: Baseline Cr 1 ~1 02/2018. Has persistently had mild renal injury -Renal functions improved. Discontinue IV fluid. -Nephrology followed the patient. Diarrhea: Check C-diff DVT GI prophylaxis -Teds SCDs -Lovenox -Pantoprazole Discharge Planning: Will need placement. [facility] is following. (4) Hypothyroidism Qualifiers: Hypothyroidism type: unspecified Qualified Code(s): E03.9 - Hypothyroidism, unspecified
[2018-04-26] MEDS: Senna/Docusate Sodium 8.6/50 MG Tablet PO SCH (11:59)
--- NOTE | 2018-04-26 14:55 | P.PN ---
Subjective Interval history: Has copious secretions from trach. No fever Using the PM valve daytime. Output is good. Physical Exam Vital signs: Vital Signs 04/25/18 15:28 04/25/18 16:00 04/25/18 17:18 Temperature 97.8 F 97.8 F Pulse Rate Respiratory Rate 22 22 Blood Pressure 145/65 H 145/65 H Pulse Oximetry 95 96 04/25/18 20:00 04/25/18 21:00 04/25/18 21:01 Temperature 99.1 F Pulse Rate 73 Respiratory Rate 21 16 Blood Pressure 132/60 Pulse Oximetry 96 96 04/26/18 00:00 04/26/18 03:34 04/26/18 04:32 Temperature 98.5 F 98.6 F Pulse Rate 103 H Respiratory Rate 21 20 21 Blood Pressure 171/73 H 139/65 Pulse Oximetry 97 98 04/26/18 08:00 04/26/18 11:11 Temperature 98.8 F Pulse Rate 82 Respiratory Rate 16 Blood Pressure 116/56 L Pulse Oximetry 98 95 Intake & Output 04/25/18 04/26/18 04/26/18 18:59 06:59 18:59 Intake Total 1564 / 1564 2365 / 2365 1100 / 1100 Output Total 1150 / 1150 650 / 650 Balance 414 / 414 1715 / 1715 1100 / 1100 Weight 65.8 kg Intake: IV 1050 / 1050 1050 / 1050 1100 / 1100 Sodium Bicarbonate 8.4% Inj 75 1000 / 1000 1000 / 1000 1000 / 1000 MEQ In 1/2 Normal Saline Inj 925 ML @ 100 mls/hr IV.CONT . Q10H ANN Rx#:[id number] Avycaz Inj 1.25 GM In NS Inj 50 50 / 50 50 / 50 100 / 100 ML @ 25 mls/hr IV.SIG Q8H ANN Rx#:[id number] Tube Feeding 514 / 514 1215 / 1215 Tube Irrigant 100 / 100 Output: Urine 700 / 700 650 / 650 Gastric Drainage 450 / 450 Jejunostomy Tube 450 / 450 Other: Date of Last Bowel Movement 04/26/18 # Bowel Movements 0 1 Narrative: Gen: Elderly W/F alert and NAD. HEENT: throat clear.[place] Neck:Trach in place Skin: No visible lesions CV: Regular rate and rhythm;No murmur Resp:Occ Basal crackles and wheeze. Abd: Soft, nontender, normal BS. No Mass Extremities: No edema.poor pulses. No focal deficits. Results - Labs CBC & Chem 7: 04/26/18 08:03 04/26/18 08:03 Laboratory Results - last 24 hr 04/26/18 04/26/18 08:03 08:03 WBC 6.4 RBC 2.61 L Hgb 7.6 L Hct 22.4 L MCV 85.8 MCH 29.0 MCHC 33.8 RDW 17.4 H Plt Count 143 L MPV 9.4 Prelim Diff (Auto) Slide review pending Neut % (Auto) 69.3 Lymph % (Auto) 11.6 [place] % (Auto) 11.0 H Eos % (Auto) 7.6 H Baso % (Auto) 0.5 Neut # (Auto) 4.4 Lymph # (Auto) 0.7 L [place] # (Auto) 0.7 Eos # (Auto) 0.5 H Baso # (Auto) 0.0 WBC Differential Manual diff final Seg Neuts % (Manual) 56 Band Neuts % (Manual) 9 H Lymphocytes % (Manual) 14 Monocytes % (Manual) 8 Eosinophils % (Manual) 10 H Basophils % (Manual) 2 Metamyelocytes % (Man) 1 Abs Neuts (Manual) 4.2 Differential Comment . Toxic Granulation 1+ H Toxic Vacuolation Present H Platelet Estimate Low L Platelet Morphology Enlarged H Ovalocytes 1+ H Sodium 137 Potassium 4.4 Chloride 95 L Carbon Dioxide 31.1 Anion Gap 11 BUN 36 H Creatinine 1.04 H Estimated GFR 52 L Random Glucose 86 Calcium 7.8 L Microbiology 04/25/18 03:00 Sputum - Tracheal Aspirate Gram Stain - Final 04/25/18 03:00 Sputum - Tracheal Aspirate Sputum Culture - Preliminary gram negative rods 04/23/18 21:45 Blood - Peripheral Aerobic Blood Culture - Preliminary No growth in 3 days 04/23/18 21:45 Blood - Peripheral Anaerobic Blood Culture - Preliminary No growth in 3 days 04/23/18 21:39 Blood - Peripheral Aerobic Blood Culture - Preliminary No growth in 3 days 04/23/18 21:39 Blood - Peripheral Anaerobic Blood Culture - Preliminary No growth in 3 days Assessment and Plan - Assessment (1) Respiratory failure Code(s): J96.90 - Respiratory failure, unspecified, unspecified whether with hypoxia or hypercapnia Status: Acute (2) Pneumonia Code(s): J18.9 - Pneumonia, unspecified organism Status: Acute (3) Status post trachelectomy Code(s): Z90.710 - Acquired absence of both cervix and uterus Status: Acute (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 Cont T Collar at 35 %. and wean. 2. Cont Duonebs qid. 3. PM valve to talk daytime upto 4 hrs 4. Levsin .125 mg qid prn. 5. Tube feeds at 60 CC, jevity 6. Labs on Saturday
[2018-04-26] MEDS: Hyoscyamine Liq Drops 0.125 MG/ML 15 ML Bottle SL SCH ×2 (16:00→22:00)
[2018-04-26] MEDS: Ascorbic Acid 500 MG Tablet J-TUBE SCH (21:00)
[2018-04-27] MEDS: Enoxaparin Inj 60 MG/0.6 ML Syringe SQ SCH
[2018-04-27] MEDS: Ceftazidime/Avibactam Inj 1.25 GM in Sodium Chlor 0.9% Inj 50 ML IV.SIG SCH ×3 (00:35→16:00)
[2018-04-27] MEDS: Hyoscyamine Liq Drops 0.125 MG/ML 15 ML Bottle SL SCH ×4 (04:00→22:00)
[2018-04-27] MEDS: Levothyroxine 100 MCG Tablet J-TUBE SCH (06:23)
[2018-04-27 08:25] LABS: Hematocrit 23.6 % (35.0-46.0); Hemoglobin 7.8 gm/dL (11.6-15.3); Mean Corpuscular HGB Conc 33.2 % (32.0-36.0); Mean Corpuscular Hemoglobin 28.8 pg (27.0-34.0); Mean Corpuscular Volume 86.6 fL (80.0-100.0); Platelet Count 165 th/mm3 (150-450); Red Blood Count 2.73 mil/mm3 (4.00-5.30); Red Cell Distribution Width 17.4 % (11.6-17.2)
[2018-04-27 08:49] LABS: Carbon Dioxide 32.9 meq/L (21.0-32.0); Potassium 4.5 meq/L (3.5-5.1)
[2018-04-27] MEDS: Ascorbic Acid 500 MG Tablet J-TUBE SCH ×2 (09:11→21:00)
[2018-04-27] MEDS: Lactobacillus Acidophilus/L. Spores Tablet J-TUBE SCH ×3 (09:11→17:47)
[2018-04-27] MEDS: buPROPion 75 MG Tablet J-TUBE SCH ×2 (09:11→21:00)
[2018-04-27] MEDS: Pantoprazole Inj 40 MG Vial IV.PUSH SCH ×2 (09:12→21:00)
[2018-04-27] MEDS: Simethicone 125 MG Chew Tablet J-TUBE PRN (09:15)
--- NOTE | 2018-04-27 10:57 | P.PNIM ---
Subjective Interval history: Patient reports she is feeling okay. No diarrhea today. Denies abdominal pain. Physical Exam Vital signs: Vital Signs 04/26/18 11:11 04/26/18 12:00 04/26/18 15:52 Temperature 98.7 F Pulse Rate 78 72 Respiratory Rate 18 20 Blood Pressure 98/56 L Pulse Oximetry 95 95 04/26/18 16:00 04/26/18 20:00 04/26/18 20:25 Temperature 99.0 F 97.5 F L Pulse Rate 66 69 Respiratory Rate 16 22 Blood Pressure 100/60 96/46 L Pulse Oximetry 97 97 98 04/27/18 00:00 04/27/18 04:00 04/27/18 04:22 Temperature 97.7 F 97.7 F Pulse Rate 62 66 74 Respiratory Rate 20 18 20 Blood Pressure 89/42 L 104/51 L Pulse Oximetry 96 96 04/27/18 08:00 04/27/18 09:41 Temperature 98.6 F Pulse Rate 59 L 59 L Respiratory Rate 16 12 Blood Pressure 130/58 L Pulse Oximetry 97 97 Intake & Output 04/26/18 04/27/18 04/27/18 18:59 06:59 18:59 Intake Total 2360 / 2360 1100 / 1100 Output Total 1250 / 1250 600 / 600 Balance 1110 / 1110 500 / 500 Weight 60.6 kg Intake: IV 1150 / 1150 50 / 50 Sodium Bicarbonate 8.4% Inj 75 1000 / 1000 MEQ In 1/2 Normal Saline Inj 925 ML @ 100 mls/hr IV.CONT . Q10H ANN Rx#:[id number] Avycaz Inj 1.25 GM In NS Inj 50 150 / 150 50 / 50 ML @ 25 mls/hr IV.SIG Q8H ANN Rx#:[id number] Tube Feeding 660 / 660 650 / 650 Tube Irrigant 200 / 200 Water Bolus Amount 550 / 550 200 / 200 Output: Urine 750 / 750 600 / 600 Gastric Drainage 500 / 500 Jejunostomy Tube 500 / 500 Other: # Voids 3 4 # Incontinent Voids 1 2 Date of Last Bowel Movement 04/26/18 04/27/18 # Bowel Movements 3 1 # Incontinent Bowel Movements 1 Narrative: Gen: Elderly W/F alert and NAD, resting in bed Skin: No visible lesions Neck: Trach in place with PM valve CV: Regular rate and rhythm; normal perfusion Resp:Occ Basal crackles and wheeze Abd: Soft, nontender, nondistended. Results - Labs CBC & Chem 7: 04/27/18 07:50 04/27/18 07:50 Laboratory Results - last 24 hr 04/26/18 04/27/18 04/27/18 12:00 07:50 07:50 WBC 6.0 RBC 2.73 L Hgb 7.8 L Hct 23.6 L MCV 86.6 MCH 28.8 MCHC 33.2 RDW 17.4 H Plt Count 165 MPV 9.0 Sodium 136 Potassium 4.5 Chloride 96 L Carbon Dioxide 32.9 H Anion Gap 7 BUN 31 H Creatinine 1.11 H Estimated GFR 48 L Random Glucose [address] C. diff Tox Epid 027 Negative C. difficile Tox (PCR) Negative Microbiology 04/25/18 03:00 Sputum - Tracheal Aspirate Gram Stain - Final 04/25/18 03:00 Sputum - Tracheal Aspirate Sputum Culture - Preliminary gram negative rods 04/23/18 21:45 Blood - Peripheral Aerobic Blood Culture - Preliminary No growth in 3 days 04/23/18 21:45 Blood - Peripheral Anaerobic Blood Culture - Preliminary No growth in 3 days 04/23/18 21:39 Blood - Peripheral Aerobic Blood Culture - Preliminary No growth in 3 days 04/23/18 21:39 Blood - Peripheral Anaerobic Blood Culture - Preliminary No growth in 3 days Assessment and Plan - Assessment (1) Pneumonia Code(s): J18.9 - Pneumonia, unspecified organism Status: Acute (2) GERD (gastroesophageal reflux disease) Code(s): K21.9 - Gastro-esophageal reflux disease without esophagitis Status: Acute (3) DVT (deep venous thrombosis) Code(s): I82.409 - Acute embolism and thrombosis of unspecified deep veins of unspecified lower extremity Status: Acute (4) Hypothyroidism Code(s): E03.9 - Hypothyroidism, unspecified Status: Chronic (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 -ID following -Repeat sputum culture so far growing gram-negative rods. -Continue Avycaz. Discussed with infectious disease. She will need a couple of weeks of antibiotics IV. -Pulmonology following -Duonebs -Continue to monitor saturations; titrate O2 as needed -Continue DVT treatment GERD. On tube feeds -Continue tube feedings while NPO -Pantoprazole IV every 12hrs -Associate Manager consulted -Continue vital 1.5 x55ml/hr w/ 2 hr hold for Levothyroxine Weakness/laryngeal cancer Severe protein calorie malnutrition Frail in appearance with BMI 20.5; on tube feeds with laryngeal cancer -continue current feeding regimen -Monitor electrolytes -Continue PT Hypothyroidism -Levothyroxine Depression -Wellbutrin -Escitalopram Recent Pneumonia w/ resistant pseudomonas. Recent Cdiff; stool testing negative -Continue management per ID for pneumonia with Avycaz. - Follow repeat sputum culture DVT, anemia. Myelodysplastic disorder -Lovenox 60 mg subcu daily -dose adjusted due to low GFR -Monitor Hgb; Stable today 7.8 -Per EMR, has required multiple transfusions every ~2 weeks. Continue to monitor. Chronic renal insufficiency: Baseline Cr 1 ~1 02/2018. Has persistently had mild renal injury -Renal functions improved. Discontinue IV fluid. -Nephrology followed the patient. Diarrhea: -C. difficile negative. Resolved. Could be related to tube feeding and antibiotics. Continue to monitor. DVT GI prophylaxis -Teds SCDs -Lovenox -Pantoprazole Discharge Planning: Will need placement. [facility] is following. (4) Hypothyroidism Qualifiers: Hypothyroidism type: unspecified Qualified Code(s): E03.9 - Hypothyroidism, unspecified
--- NOTE | 2018-04-27 14:30 | P.PN ---
Subjective Interval history: Trach secretions are less now. On a T Collar at 28 % Overall better. Physical Exam Vital signs: Vital Signs 04/26/18 15:52 04/26/18 16:00 04/26/18 20:00 Temperature 99.0 F 97.5 F L Pulse Rate 72 66 69 Respiratory Rate 20 16 22 Blood Pressure 100/60 96/46 L Pulse Oximetry 97 97 04/26/18 20:25 04/27/18 00:00 04/27/18 04:00 Temperature 97.7 F 97.7 F Pulse Rate 62 66 Respiratory Rate 20 18 Blood Pressure 89/42 L 104/51 L Pulse Oximetry 98 96 96 04/27/18 04:22 04/27/18 08:00 04/27/18 09:41 Temperature 98.6 F Pulse Rate 74 59 L 59 L Respiratory Rate 20 16 12 Blood Pressure 130/58 L Pulse Oximetry 97 97 Intake & Output 04/26/18 04/27/18 04/27/18 18:59 06:59 18:59 Intake Total 2360 / 2360 1100 / 1100 Output Total 1250 / 1250 600 / 600 Balance 1110 / 1110 500 / 500 Weight 60.6 kg Intake: IV 1150 / 1150 50 / 50 Sodium Bicarbonate 8.4% Inj 75 1000 / 1000 MEQ In 1/2 Normal Saline Inj 925 ML @ 100 mls/hr IV.CONT . Q10H ANN Rx#:[id number] Avycaz Inj 1.25 GM In NS Inj 50 150 / 150 50 / 50 ML @ 25 mls/hr IV.SIG Q8H ANN Rx#:[id number] Tube Feeding 660 / 660 650 / 650 Tube Irrigant 200 / 200 Water Bolus Amount 550 / 550 200 / 200 Output: Urine 750 / 750 600 / 600 Gastric Drainage 500 / 500 Jejunostomy Tube 500 / 500 Other: # Voids 3 4 # Incontinent Voids 1 2 Date of Last Bowel Movement 04/26/18 04/27/18 # Bowel Movements 3 1 # Incontinent Bowel Movements 1 Narrative: Gen: Elderly W/F alert and NAD, resting in bed Skin: No lesions Neck: Trach in place with a Collar CV: Regular rate and rhythm; normal perfusion Resp:Occ Basal crackles and bilateral wheeze Abd: Soft, nontender, nondistended. Extr: No edema or lesions. Results - Labs CBC & Chem 7: 04/27/18 07:50 04/27/18 07:50 Laboratory Results - last 24 hr 04/26/18 04/27/18 04/27/18 12:00 07:50 07:50 WBC 6.0 RBC 2.73 L Hgb 7.8 L Hct 23.6 L MCV 86.6 MCH 28.8 MCHC 33.2 RDW 17.4 H Plt Count 165 MPV 9.0 Sodium 136 Potassium 4.5 Chloride 96 L Carbon Dioxide 32.9 H Anion Gap 7 BUN 31 H Creatinine 1.11 H Estimated GFR 48 L Random Glucose [address] C. diff Tox Epid 027 Negative C. difficile Tox (PCR) Negative Microbiology 04/25/18 03:00 Sputum - Tracheal Aspirate Gram Stain - Final 04/25/18 03:00 Sputum - Tracheal Aspirate Sputum Culture - Preliminary Pseudomonas aeruginosa Multidrug Resistant 04/23/18 21:45 Blood - Peripheral Aerobic Blood Culture - Preliminary No growth in 4 days 04/23/18 21:45 Blood - Peripheral Anaerobic Blood Culture - Preliminary No growth in 4 days 04/23/18 21:39 Blood - Peripheral Aerobic Blood Culture - Preliminary No growth in 4 days 04/23/18 21:39 Blood - Peripheral Anaerobic Blood Culture - Preliminary No growth in 4 days Assessment and Plan - Assessment (1) Respiratory failure Code(s): J96.90 - Respiratory failure, unspecified, unspecified whether with hypoxia or hypercapnia Status: Acute (2) Pneumonia Code(s): J18.9 - Pneumonia, unspecified organism Status: Acute (3) Status post trachelectomy Code(s): Z90.710 - Acquired absence of both cervix and uterus Status: Acute (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 Cont T Collar at 30 %. and wean. 2. Cont Duonebs qid. 3. PM valve to talk daytime upto 4 hrs 4. Levsin .125 mg qid prn. 5. Tube feeds at 60 CC, jevity 6. Robinul 0.4 mg S/Q BID PRN 7. CBC,BMP am.
[2018-04-28] MEDS: Ceftazidime/Avibactam Inj 1.25 GM in Sodium Chlor 0.9% Inj 50 ML IV.SIG SCH ×3 (00:20→15:47)
[2018-04-28] MEDS: Enoxaparin Inj 60 MG/0.6 ML Syringe SQ SCH (00:20)
[2018-04-28] MEDS: Hyoscyamine Liq Drops 0.125 MG/ML 15 ML Bottle SL SCH ×4 (04:00→23:05)
[2018-04-28 06:04] LABS: Hematocrit 22.3 % (35.0-46.0); Hemoglobin 7.6 gm/dL (11.6-15.3); Mean Corpuscular HGB Conc 34.2 % (32.0-36.0); Mean Corpuscular Volume 84.6 fL (80.0-100.0); Mean Platelet Volume 9.1 fL (7.0-11.0); Platelet Count 167 th/mm3 (150-450); Red Blood Count 2.64 mil/mm3 (4.00-5.30); Red Cell Distribution Width 17.7 % (11.6-17.2); White Blood Count 6.4 th/mm3 (4.0-11.0)
[2018-04-28] MEDS: Levothyroxine 100 MCG Tablet J-TUBE SCH (06:11)
[2018-04-28 06:21] LABS: Calcium 8.2 mg/dL (8.5-10.1); Carbon Dioxide 31.4 meq/L (21.0-32.0); Potassium 4.7 meq/L (3.5-5.1)
[2018-04-28] MEDS: Ascorbic Acid 500 MG Tablet J-TUBE SCH ×2 (08:39→20:32)
[2018-04-28] MEDS: Pantoprazole Inj 40 MG Vial IV.PUSH SCH ×2 (08:39→20:32)
[2018-04-28] MEDS: buPROPion 75 MG Tablet J-TUBE SCH ×2 (08:39→20:33)
[2018-04-28] MEDS: Lactobacillus Acidophilus/L. Spores Tablet J-TUBE SCH ×3 (08:39→18:06)
--- NOTE | 2018-04-28 15:28 | P.PNIM ---
Subjective Interval history: Patient reports she is feeling okay today. Still having good amount of secretions. No shortness of breath. Physical Exam Vital signs: Vital Signs 04/27/18 16:00 04/27/18 16:37 04/27/18 19:55 Temperature 97.9 F Pulse Rate 67 72 75 Respiratory Rate 18 12 19 Blood Pressure 137/60 Pulse Oximetry 97 97 04/27/18 20:00 04/28/18 00:00 04/28/18 04:00 Temperature 97.0 F L 97.4 F L 97.5 F L Pulse Rate 62 64 61 Respiratory Rate 20 20 20 Blood Pressure 93/53 L 103/51 L 110/53 L Pulse Oximetry 96 96 97 04/28/18 04:15 04/28/18 07:32 04/28/18 08:00 Temperature 98.3 F Pulse Rate 58 L Respiratory Rate 22 Blood Pressure 120/56 L Pulse Oximetry 96 97 95 04/28/18 12:00 Temperature 98.2 F Pulse Rate 63 Respiratory Rate 22 Blood Pressure 118/56 L Pulse Oximetry 95 Intake & Output 04/27/18 04/28/18 04/28/18 18:59 06:59 18:59 Intake Total 1360 / 1360 2310 / 2310 50 / 50 Output Total 900 / 900 650 / 650 Balance 460 / 460 1660 / 1660 50 / 50 Weight 60.1 kg Intake: IV 100 / 100 1100 / 1100 50 / 50 Avycaz Inj 1.25 GM In NS Inj 50 100 / 100 50 / 50 50 / 50 ML @ 25 mls/hr IV.SIG Q8H [facility] Rx#:[id number] Tube Feeding 660 / 660 660 / 660 Tube Irrigant 150 / 150 Water Bolus Amount 600 / 600 400 / 400 Output: Urine 400 / 400 650 / 650 Gastric Drainage 500 / 500 Jejunostomy Tube 500 / 500 Other: # Voids 3 3 # Incontinent Voids 1 2 Date of Last Bowel Movement 04/27/18 04/27/18 # Bowel Movements 0 Narrative: Gen: Elderly W/F alert and NAD, resting in bed Neck: Trach in place with a Collar CV: Regular rate and rhythm; normal perfusion Resp: Upper respiratory congestion. Clear to auscultation bilaterally otherwise. Abd: Soft, nontender, nondistended. Extr: No edema or lesions. Results - Labs CBC & Chem 7: 04/28/18 05:45 04/28/18 05:45 Laboratory Results - last 24 hr 04/28/18 04/28/18 05:45 05:45 WBC 6.4 RBC 2.64 L Hgb 7.6 L Hct 22.3 L MCV 84.6 MCH 29.0 MCHC 34.2 RDW 17.7 H Plt Count 167 MPV 9.1 Sodium 136 Potassium 4.7 Chloride 97 L Carbon Dioxide 31.4 Anion Gap 8 BUN 31 H Creatinine 1.19 H Estimated GFR 45 L Random Glucose 106 Calcium 8.2 L Microbiology 04/25/18 03:00 Sputum - Tracheal Aspirate Gram Stain - Final 04/25/18 03:00 Sputum - Tracheal Aspirate Sputum Culture - Preliminary Pseudomonas aeruginosa Multidrug Resistant 04/23/18 21:45 Blood - Peripheral Aerobic Blood Culture - Final No growth in 5 days 04/23/18 21:45 Blood - Peripheral Anaerobic Blood Culture - Final No growth in 5 days 04/23/18 21:39 Blood - Peripheral Aerobic Blood Culture - Final No growth in 5 days 04/23/18 21:39 Blood - Peripheral Anaerobic Blood Culture - Final No growth in 5 days Assessment and Plan - Assessment (1) Pneumonia Code(s): J18.9 - Pneumonia, unspecified organism Status: Acute (2) GERD (gastroesophageal reflux disease) Code(s): K21.9 - Gastro-esophageal reflux disease without esophagitis Status: Acute (3) DVT (deep venous thrombosis) Code(s): I82.409 - Acute embolism and thrombosis of unspecified deep veins of unspecified lower extremity Status: Acute (4) Hypothyroidism Code(s): E03.9 - Hypothyroidism, unspecified Status: Chronic (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 -ID following -Repeat sputum culture so far growing gram-negative rods. -Continue Avycaz. Previously discussed with infectious disease. She will need a couple of weeks of antibiotics IV. -Pulmonology following -Duonebs -Continue to monitor saturations; titrate O2 as needed -Continue DVT treatment GERD. On tube feeds -Continue tube feedings while NPO -Pantoprazole IV every 12hrs -Body Piercer consulted -Continue vital 1.5 x55ml/hr w/ 2 hr hold for Levothyroxine Weakness/laryngeal cancer Severe protein calorie malnutrition Frail in appearance with BMI 20.5; on tube feeds with laryngeal cancer -continue current feeding regimen -Monitor electrolytes -Continue PT Hypothyroidism -Levothyroxine Depression -Wellbutrin -Escitalopram Recent Pneumonia w/ resistant pseudomonas. Recent Cdiff; stool testing negative -Continue management per ID for pneumonia with Avycaz. -Repeat sputum culture still growing multi resistant Pseudomonas. DVT, anemia. Myelodysplastic disorder -Lovenox 60 mg subcu daily -dose adjusted due to low GFR -Monitor Hgb; Stable today 7.8 -Per EMR, has required multiple transfusions every ~2 weeks. Continue to monitor. Chronic renal insufficiency: Baseline Cr 1 ~02/2018. Has persistently had mild renal injury -Renal functions improved. Discontinue IV fluid. -Nephrology followed the patient. DVT GI prophylaxis -Teds SCDs -Lovenox -Pantoprazole Discharge Planning: Will need placement. [facility] is following. (4) Hypothyroidism Qualifiers: Hypothyroidism type: unspecified Qualified Code(s): E03.9 - Hypothyroidism, unspecified
--- NOTE | 2018-04-28 18:41 | P.PNADD ---
Addendum to Inpatient Note Reason for Addendum: Additional Documentation Additional information: sputum clx from 04/25: PSAE MDRO Avicaz 11/20 zerbaxa 11/20 colistin <2 no fever, leukocytosis or increase of resp requiremetns repeat CT chest will chk S polo valadez
--- NOTE | 2018-04-28 19:18 | P.PN ---
Subjective Interval history: She is feeling better. On T Collar at 30 %. No fever. Antibiotics per ID Physical Exam Vital signs: Vital Signs 04/27/18 19:55 04/27/18 20:00 04/28/18 00:00 Temperature 97.0 F L 97.4 F L Pulse Rate 75 62 64 Respiratory Rate 19 20 20 Blood Pressure 93/53 L 103/51 L Pulse Oximetry 97 96 96 04/28/18 04:00 04/28/18 04:15 04/28/18 07:32 Temperature 97.5 F L Pulse Rate 61 Respiratory Rate 20 Blood Pressure 110/53 L Pulse Oximetry 97 96 97 04/28/18 08:00 04/28/18 12:00 04/28/18 16:00 Temperature 98.3 F 98.2 F 98.4 F Pulse Rate 58 L 63 60 Respiratory Rate 22 22 16 Blood Pressure 120/56 L 118/56 L 115/53 L Pulse Oximetry 95 95 95 Intake & Output 04/28/18 04/28/18 04/29/18 06:59 18:59 06:59 Intake Total 2310 / 2310 1160 / 1160 Output Total 650 / 650 1400 / 1400 Balance 1660 / 1660 -240 / -240 Weight 60.1 kg Intake: IV 1100 / 1100 100 / 100 Avycaz Inj 1.25 GM In NS Inj 50 50 / 50 100 / 100 ML @ 25 mls/hr IV.SIG Q8H [facility] Rx#:[id number] Tube Feeding 660 / 660 660 / 660 Tube Irrigant 150 / 150 Water Bolus Amount 400 / 400 400 / 400 Output: Urine 650 / 650 1000 / 1000 Gastric Drainage 400 / 400 Gastrojejunostomy Tube 400 / 400 Other: # Voids 3 3 # Incontinent Voids 2 1 Date of Last Bowel Movement 04/27/18 Narrative: Gen: Elderly W/F alert and NAD,Pale Neck: Trach in place with a Collar . Mild secretions CV: Regular rate and rhythm; normal perfusion Resp: Clear to auscultation bilaterally . Abd: Soft, nontender, nondistended. Extr: No edema or lesions. Results - Labs CBC & Chem 7: 04/28/18 05:45 04/28/18 05:45 Laboratory Results - last 24 hr 04/28/18 04/28/18 05:45 05:45 WBC 6.4 RBC 2.64 L Hgb 7.6 L Hct 22.3 L MCV 84.6 MCH 29.0 MCHC 34.2 RDW 17.7 H Plt Count 167 MPV 9.1 Sodium 136 Potassium 4.7 Chloride 97 L Carbon Dioxide 31.4 Anion Gap 8 BUN 31 H Creatinine 1.19 H Estimated GFR 45 L Random Glucose 106 Calcium 8.2 L Microbiology 04/25/18 03:00 Sputum - Tracheal Aspirate Gram Stain - Final 04/25/18 03:00 Sputum - Tracheal Aspirate Sputum Culture - Preliminary Pseudomonas aeruginosa Multidrug Resistant 04/23/18 21:45 Blood - Peripheral Aerobic Blood Culture - Final No growth in 5 days 04/23/18 21:45 Blood - Peripheral Anaerobic Blood Culture - Final No growth in 5 days 04/23/18 21:39 Blood - Peripheral Aerobic Blood Culture - Final No growth in 5 days 04/23/18 21:39 Blood - Peripheral Anaerobic Blood Culture - Final No growth in 5 days Assessment and Plan - Assessment (1) Respiratory failure Code(s): J96.90 - Respiratory failure, unspecified, unspecified whether with hypoxia or hypercapnia Status: Acute (2) Pneumonia Code(s): J18.9 - Pneumonia, unspecified organism Status: Acute (3) Status post trachelectomy Code(s): Z90.710 - Acquired absence of both cervix and uterus Status: Acute (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 Cont T Collar at 30 %. and wean. 2. Cont Duonebs qid. 3. PM valve to talk daytime upto 8 hrs 4. Levsin .125 mg qid prn. 5. Tube feeds at 60 CC, jevity 6. Robinul 0.4 mg S/Q BID PRN 7. CBC BMP.
[2018-04-29] MEDS: Ceftazidime/Avibactam Inj 1.25 GM in Sodium Chlor 0.9% Inj 50 ML IV.SIG SCH ×3 (00:12→16:01)
[2018-04-29] MEDS: Enoxaparin Inj 60 MG/0.6 ML Syringe SQ SCH (00:13)
[2018-04-29] MEDS: Hyoscyamine Liq Drops 0.125 MG/ML 15 ML Bottle SL SCH ×3 (05:11→21:53)
[2018-04-29] MEDS: Levothyroxine 100 MCG Tablet J-TUBE SCH (05:12)
--- NOTE | 2018-04-29 08:55 | CT ---
EXAM DATE: 04/29/2018 8:44 AM EDT AGE/SEX: 73 years / Female INDICATIONS: Pneumonia. CLINICAL DATA: This is the patient's subsequent encounter. Patient reports that signs and symptoms h ave been present for 1 week and indicates a pain score of 0/10. MEDICAL/SURGICAL HISTORY: Carcinoma, squamous cell. Carcinoma, glottic. Rendon's esophagus. None . RADIATION DOSE: 6.15 CTDI (mGy) COMPARISON: [facility] [place], CT CHEST W/O CONTRAST, 02/23/2018. . TECHNIQUE: Multiple contiguous axial images were obtained through the chest without contrast. Image s were obtained in suspended respiration using multiple row detector helical technique. Using automa melany exposure control and adjustment of the mA and/or kV according to patient size, radiation dose was kept as low as reasonably achievable to obtain optimal diagnostic quality images. DICOM format imag e data is available electronically for review and comparison. FINDINGS: Lungs: Peripheral bilateral lower lobe consolidating airspace disease remains evident. Spiculated nodule in the right upper lobe anteriorly has enlarged and now measures 1.3 cm. 2 new disc rete nodular densities have developed. One is located in the right upper lobe measuring 6 mm and the second within the right lower lobe measuring 5 mm. Tracheostomy tube has been placed since the prior study Mediastinum: Small pericardial effusion is noted. No evidence of mass or significant adenopathy. Pleurae: Small bilateral pleural effusions are identified Axillae: Unremarkable. Bony Structures: Unremarkable. Miscellaneous: The examination was extended to include the upper abdomen, and both adrenal glands ar e normal in size and configuration. CONCLUSION: 1. Enlarging spiculated nodule in the right upper lobe and interval development of 2 additional righ t lung nodules as described. 2. Bibasilar consolidating airspace disease with small parapneumonic effusions. 3. Interval placement of tracheostomy tube. 4. No other significant change. Electronically signed by: Matthew Macario MD 04/29/2018 8:54 AM EDT
[2018-04-29] MEDS: Lactobacillus Acidophilus/L. Spores Tablet J-TUBE SCH ×2 (10:16→17:58)
[2018-04-29] MEDS: Pantoprazole Inj 40 MG Vial IV.PUSH SCH ×2 (10:16→21:51)
[2018-04-29] MEDS: buPROPion 75 MG Tablet J-TUBE SCH ×2 (10:17→21:52)
[2018-04-29] MEDS: Ascorbic Acid 500 MG Tablet J-TUBE SCH ×2 (10:19→21:52)
--- NOTE | 2018-04-29 13:29 | P.PNPAL ---
Reason for Visit Reason for visit: a. To assist with evaluation and management of symptoms including: dyspnea, pain, debility, anxiety b. To assist medical decision maker(s) with: better understanding of current medical conditions; weighing benefits/burdens of medical treatment options; making medical treatment decisions. Subjective Subjective/Interval History: Pt resting in bed with trach collar. Watching TV. Denies pain. No sign anxiety. SHe indicates that she has no questions or concerns. Per PT notes 04/25 pt had drop in PT during therapy. Denies feeling SOB. FiO2 28%, sat 95. Has lots of secretions, says this is not more than usual for her. Had chest CT which showed enlarging spiculated nodule 1.3cm, 2 new developing right lung nodules 5mm and 6mm, bibasilar consolidated airspace dz with small parapneumonic effusions. Lung sounds coarse. . sputum cx from 04/25 growing multi drug resistant PSAE, ID following, pt on avycaz. WBC low 2.6, hgb 7.6 yesterday. D/w Devon liu Summer, it is a possibility to transfer pt to facility in [place] so she could be near her son. Apparently this has been suggested in the past and pt was not receptive to it. Objective Vital Signs: Vital Signs 04/28/18 16:00 04/28/18 20:00 04/28/18 21:00 Temperature 98.4 F 98.8 F Pulse Rate 60 60 Respiratory Rate 16 18 Blood Pressure 115/53 L 126/70 Pulse Oximetry 95 95 97 04/29/18 00:00 04/29/18 04:00 04/29/18 08:00 Temperature 98.6 F 98.4 F 98.6 F Pulse Rate 63 61 62 Respiratory Rate 18 16 16 Blood Pressure 121/56 L 101/49 L 115/60 Pulse Oximetry 94 L 94 L 95 Intake & Output 04/28/18 04/29/18 04/29/18 18:59 06:59 18:59 Intake Total 1160 / 1160 1000 / 1000 Output Total 1400 / 1400 900 / 900 Balance -240 / -240 100 / 100 Weight 60.5 kg Intake: IV 100 / 100 Avycaz Inj 1.25 GM In NS Inj 50 100 / 100 ML @ 25 mls/hr IV.SIG Q8H [facility] Rx#:[id number] Tube Feeding 660 / 660 600 / 600 Tube Irrigant 200 / 200 Water Bolus Amount 400 / 400 200 / 200 Output: Urine 1000 / 1000 550 / 550 Gastric Drainage 400 / 400 350 / 350 Gastrojejunostomy Tube 400 / 400 350 / 350 Other: # Voids 3 # Incontinent Voids 1 Date of Last Bowel Movement 04/27/18 04/27/18 04/27/18 # Bowel Movements 0 Physical Exam: CONSTITUTIONAL/GENERAL: this is a pale, ill appearing female with a tracheostomy SKIN: Pale. No jaundice, rashes, or lesions. No wounds seen anteriorly. Skin temperature appropriate. Not diaphoretic. HEAD: Atraumatic. Normocephalic. EYES: Extraocular motions intact. No scleral icterus. No injection or drainage. Fundi not examined. ENT: Hearing grossly normal. Nose without bleeding or purulent drainage. CARDIOVASCULAR: RRR without murmurs, gallops, or rubs. No JVD. Peripheral pulses symmetric. RESPIRATORY/CHEST: coarse lung sounds. respirations shallow. trach collar, + copious secretions GASTROINTESTINAL: Abdomen soft, non-tender, nondistended. No hepato-splenomegaly , or palpable masses. No guarding. Bowel sounds present. +GJ tube MUSCULOSKELETAL: Extremities without clubbing, cyanosis, or edema. No joint tenderness or effusion noted. No calf tenderness. No mottling or clubbing. NEUROLOGICAL: Awake and alert. Motor and sensory grossly within normal limits. Follows commands. Cognitively sharp. Moves all extremities. PSYCHIATRIC: No obvious anxiety/depression. no apparent hallucinations or other psychotic thought process. Diagnostic Tests Laboratory: Laboratory Results - last 72 hr 04/26/18 04/27/18 04/27/18 12:00 07:50 07:50 WBC 6.0 RBC 2.73 L Hgb 7.8 L Hct 23.6 L MCV 86.6 MCH 28.8 MCHC 33.2 RDW 17.4 H Plt Count 165 MPV 9.0 Sodium 136 Potassium 4.5 Chloride 96 L Carbon Dioxide 32.9 H Anion Gap 7 BUN 31 H Creatinine 1.11 H Estimated GFR 48 L Random Glucose [address] C. diff Tox Epid 027 Negative C. difficile Tox (PCR) Negative 04/28/18 04/28/18 05:45 05:45 WBC 6.4 RBC 2.64 L Hgb 7.6 L Hct 22.3 L MCV 84.6 MCH 29.0 MCHC 34.2 RDW 17.7 H Plt Count 167 MPV 9.1 Sodium 136 Potassium 4.7 Chloride 97 L Carbon Dioxide 31.4 Anion Gap 8 BUN 31 H Creatinine 1.19 H Estimated GFR 45 L Random Glucose [address] C[address] diff Tox Epid 027 C. difficile Tox (PCR) Result Diagrams: 04/28/18 05:45 04/28/18 05:45 Microbiology: Microbiology 04/25/18 03:00 Gram Stain - Final Sputum - Tracheal Aspirate Sputum Culture - Final Pseudomonas aeruginosa Multidrug Resistant 04/23/18 21:45 Aerobic Blood Culture - Final Blood - Peripheral No growth in 5 days Anaerobic Blood Culture - Final No growth in 5 days 04/23/18 21:39 Aerobic Blood Culture - Final Blood - Peripheral No growth in 5 days Anaerobic Blood Culture - Final No growth in 5 days Imaging: ITS Impressions Chest X-Ray 04/23/18 21:13 CONCLUSION: Slight interval worsening in aeration. Chest CT 04/29/18 00:00 CONCLUSION: 1. Enlarging spiculated nodule in the right upper lobe and interval development of 2 additional right lung nodules as described. 2. Bibasilar consolidating airspace disease with small parapneumonic effusions. 3. Interval placement of tracheostomy tube. 4. No other significant change. 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 Patient now has a tracheostomy. (4) Debility 0-10 Scale: Unable to quantify Pertinent Non-Medical Issues: Psychosocial: Patient is originally from [place]. She has 4 brothers and 2 sisters. She moved to [place] approximately 40 years ago. Patient was for 18 years and then . She and her had 3 sons (Alireza, Sagar and Cameron). Alireza is a physicians orthodontic technician assistant and lives in [place]. Nelson live in [place]. Per patient, Cameron was born with "autism" and live in a jail Spiritual: Hinduism Legal: Pt's son Alireza is medical POA. Ethical issues impacting care: none Important Contacts: medical POA son Alireza Whitten , cell [phone] Prognosis: This is a 73 yo lady with hx laryngeal ca diagnosed 2015 s/p chemo and radiation who [facility] in [facility]. She initially presented in January with weakness, dysphagia, weight loss, anemia. She has since had tracheostomy, GJ, and numerous complications, now with pneumonia. She remains at risk for further decline, complications and setbacks. Code Status: Full Code Plan: - LEGAL DECISON MAKER - Pt is capacitated to make medical decisions. Should she become incapacitated, she has designated her son Alireza as medical POA. - CODE STATUS- full code - GOALS - Goals aggressive. Pt wishes to remain full code and hopes for improvement to be able to return to rehab, which she felt was going "okay." - SYMPTOMS - * pain - risk for pain. multifactorial, coccygeal ulcer, mult lines and catheters, tubes. denies pain today on my eval. Has [place] 5/325 1 tab PRN q4h and 2 tab PRN q4h for mild and moderate to severe pain, respectively. Also has PRN roxanol 5mg q4h for breakthrough pain. is using 2 tabs most frequently. * dyspnea - hx laryngeal ca, has trach, now with PNA. BCX pending. denies feeling SOB today. +secretions. lung sounds coarse. Had chest CT which showed enlarging spiculated nodule 1.3cm, 2 new developing right lung nodules 5mm and 6mm, bibasilar consolidated airspace dz with small parapneumonic effusions. concern for malignancy, attending to address. continued aggressive treatment would call for lung bx and possibly additional procedures/tests. will await pulmonology & attending f/u before addressing. sputum growing PSAE MDRO. has PRN and scheduled duonebs, PRN and nelson levsin. abx per ID. has PRN meds for anxiety and pain. encouraged her to use PRNs for breathing discomfort. abx per ID. * depression/anxiety - multifactorial. pt appears calm, offers no complaints. on lexapro, wellbutrin. has PRN ativan 1mg q6h. Has PRN temazepam for insomnia. * debility- multifactorial. 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 respiratory status unlikely to allow for aggressive therapy and rehab. per rehab notes 04/25 she had BP drop during thearpy. having recurrent PNA. weak. [employer] and rehab have recommended strict NPO, no ice chips. - d/w RN, d/w [facility] liaison - Palliative care will continue to follow during hospital course as condition evolves, to assist patient/decision-maker with understanding of medical conditions, weighing benefits/burdens of treatment options, for clarification of goals of treatment. Additionally will assist with any symptoms of palliative concern Attestation Attestation: To help prompt me to consider important information that might be impacting today's encounter and assessment, information from prior notes written by myself or my colleagues may have been "brought forward" into today's note. My signature on this note, however, is an attestation that I personally performed the exam, history, and/or decision-making noted today, and, unless otherwise indicated, the interactions with patient, family, and staff as well as the review of records all occurred today. I also attest that the listed assessment and stated plan reflect my best clinical judgment today based on the combination of historical information, prior notes, and today's exam/ interactions. When time spent is documented, it refers only to time spent today by the signer, or if indicated, combined time spent today by collaborating physician/nurse practitioner.
--- NOTE | 2018-04-29 14:51 | P.PNADD ---
Addendum to Inpatient Note Additional information: dw microlab: Isolate in pt's sputum is S to avicaz will cont to complete 2 weeks
--- NOTE | 2018-04-29 19:00 | P.PN ---
Subjective Interval history: Had a CT chest which shows an enlarging Right upper lung nodule. She is stable on the T Collar Tolerates tube feeds Physical Exam Vital signs: Vital Signs 04/28/18 20:00 04/28/18 21:00 04/29/18 00:00 Temperature 98.8 F 98.6 F Pulse Rate 60 63 Respiratory Rate 18 18 Blood Pressure 126/70 121/56 L Pulse Oximetry 95 97 94 L 04/29/18 04:00 04/29/18 08:00 04/29/18 13:16 Temperature 98.4 F 98.6 F Pulse Rate 61 62 Respiratory Rate 16 16 Blood Pressure 101/49 L 115/60 Pulse Oximetry 94 L 95 98 04/29/18 15:48 04/29/18 17:42 Temperature 98.8 F Pulse Rate 88 Respiratory Rate 18 Blood Pressure 143/82 H Pulse Oximetry 98 Intake & Output 04/28/18 04/29/18 04/29/18 18:59 06:59 18:59 Intake Total 1160 / 1160 1000 / 1000 1100 / 1100 Output Total 1400 / 1400 900 / 900 1400 / 1400 Balance -240 / -240 100 / 100 -300 / -300 Weight 60.5 kg Intake: IV 100 / 100 100 / 100 Avycaz Inj 1.25 GM In NS Inj 50 100 / 100 100 / 100 ML @ 25 mls/hr IV.SIG Q8H [facility] Rx#:[id number] Tube Feeding 660 / 660 600 / 600 600 / 600 Tube Irrigant 200 / 200 200 / 200 Water Bolus Amount 400 / 400 200 / 200 200 / 200 Output: Urine 1000 / 1000 550 / 550 650 / 650 Gastric Drainage 400 / 400 350 / 350 750 / 750 Gastrojejunostomy Tube 400 / 400 350 / 350 750 / 750 Jejunostomy Tube 0 / 0 Other: # Voids 3 0 # Incontinent Voids 1 3 Date of Last Bowel Movement 04/27/18 04/27/18 04/29/18 # Bowel Movements 0 0 # Incontinent Bowel Movements 1 Narrative: Gen: Elderly W/F alert and NAD,Pale Neck: Trach in place with a Collar . Mild thick secretions CV: Regular rate and rhythm; normal perfusion Resp: Occ wheezes on auscultation bilaterally . Abd: Soft, nontender, nondistended. Extr: No edema or lesions.Neuro :No Gross deficits. Results - Labs CBC & Chem 7: 04/28/18 05:45 04/28/18 05:45 Microbiology 04/25/18 03:00 Sputum - Tracheal Aspirate Gram Stain - Final 04/25/18 03:00 Sputum - Tracheal Aspirate Sputum Culture - Final Pseudomonas aeruginosa Multidrug Resistant Acinetobacter lwoffii - Imaging Impressions Chest CT 04/29/18 00:00 CONCLUSION: 1. Enlarging spiculated nodule in the right upper lobe and interval development of 2 additional right lung nodules as described. 2. Bibasilar consolidating airspace disease with small parapneumonic effusions. 3. Interval placement of tracheostomy tube. 4. No other significant change. 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 Cont T Collar at 30 %. and wean. 2. Cont Duonebs qid. 3. PM valve to talk daytime upto 8 hrs 4. Levsin .125 mg qid prn. 5. Tube feeds at 60 CC, jevity 6. Robinul 0.4 mg S/Q BID PRN 7. Will ask Dr Pineda her oncologist to evaluate her, and may need Biopsy
--- NOTE | 2018-04-29 19:33 | P.PNIM ---
Subjective Interval history: Patient reports some abdominal pain today. Improved with medication. Discussed with RN. I discussed the chest CT scan finding with the patient. She was found to have an enlarging lung nodule. We briefly discussed options given her current clinical status. I am not certain she can go through a biopsy. Certainly I do not believe she could go through chemotherapy or radiation at this point. I discussed the case with specialized developer, Dr. Martin who discussed with the patient's oncologist. Dr. Pineda will evaluate the patient. Physical Exam Vital signs: Vital Signs 04/28/18 20:00 04/28/18 21:00 04/29/18 00:00 Temperature 98.8 F 98.6 F Pulse Rate 60 63 Respiratory Rate 18 18 Blood Pressure 126/70 121/56 L Pulse Oximetry 95 97 94 L 04/29/18 04:00 04/29/18 08:00 04/29/18 13:16 Temperature 98.4 F 98.6 F Pulse Rate 61 62 Respiratory Rate 16 16 Blood Pressure 101/49 L 115/60 Pulse Oximetry 94 L 95 98 04/29/18 15:48 04/29/18 17:42 Temperature 98.8 F Pulse Rate 88 Respiratory Rate 18 Blood Pressure 143/82 H Pulse Oximetry 98 Intake & Output 04/29/18 04/29/18 04/30/18 06:59 18:59 06:59 Intake Total 1000 / 1000 1100 / 1100 Output Total 900 / 900 1400 / 1400 Balance 100 / 100 -300 / -300 Weight 60.5 kg Intake: IV 100 / 100 Avycaz Inj 1.25 GM In NS Inj 50 100 / 100 ML @ 25 mls/hr IV.SIG Q8H [facility] Rx#:[id number] Tube Feeding 600 / 600 600 / 600 Tube Irrigant 200 / 200 200 / 200 Water Bolus Amount 200 / 200 200 / 200 Output: Urine 550 / 550 650 / 650 Gastric Drainage 350 / 350 750 / 750 Gastrojejunostomy Tube 350 / 350 750 / 750 Jejunostomy Tube 0 / 0 Other: # Voids 0 # Incontinent Voids 3 Date of Last Bowel Movement 04/27/18 04/29/18 # Bowel Movements 0 0 # Incontinent Bowel Movements 1 Narrative: Gen: Elderly W/F alert and NAD, resting in bed Neck: Trach in place with a Collar CV: Regular rate and rhythm; normal perfusion Resp: Upper respiratory rales. Otherwise mostly clear to auscultation Abd: Soft, nondistended, mild diffuse tenderness. Extr: No edema or lesions. Results - Labs CBC & Chem 7: 04/28/18 05:45 04/28/18 05:45 Microbiology 04/25/18 03:00 Sputum - Tracheal Aspirate Gram Stain - Final 04/25/18 03:00 Sputum - Tracheal Aspirate Sputum Culture - Final Pseudomonas aeruginosa Multidrug Resistant Acinetobacter lwoffii - Imaging Impressions Chest CT 04/29/18 00:00 CONCLUSION: 1. Enlarging spiculated nodule in the right upper lobe and interval development of 2 additional right lung nodules as described. 2. Bibasilar consolidating airspace disease with small parapneumonic effusions. 3. Interval placement of tracheostomy tube. 4. No other significant change. 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 Lung mass: 04/29/18: CT of the chest revealed enlarging spiculated nodule in the right upper lobe and interval development of 2 additional right lung nodules as described. -ID following -Repeat sputum culture grew multi resistant Pseudomonas and Acinetobacter -Continue Avycaz. Per ID -Pulmonology following -Duonebs -Continue to monitor saturations; titrate O2 as needed -Continue DVT treatment -Oncology is consulted. Discussed the case with pulmonology. The patient is a poor candidate for biopsy. GERD. On tube feeds -Continue tube feedings while NPO -Pantoprazole IV every 12hrs -Gun Sealing Machine Operator consulted -Continue vital 1.5 x55ml/hr w/ 2 hr hold for Levothyroxine - pain medication as needed for abdominal pain. Decrease Free water frequency. Weakness/laryngeal cancer Severe protein calorie malnutrition Frail in appearance with BMI 20.5; on tube feeds with laryngeal cancer -continue current feeding regimen -Monitor electrolytes -Continue PT Hypothyroidism -Levothyroxine Depression -Wellbutrin -Escitalopram Recent Pneumonia w/ resistant pseudomonas. Recent Cdiff; stool testing negative -Continue management per ID for pneumonia with Avycaz. -Repeat sputum culture still growing multi resistant Pseudomonas. DVT, anemia. Myelodysplastic disorder -Lovenox 60 mg subcu daily -dose adjusted due to low GFR -Monitor Hgb; Stable today 7.8 -Per EMR, has required multiple transfusions every ~2 weeks. Continue to monitor. Chronic renal insufficiency: Baseline Cr 1 ~02/2018. Has persistently had mild renal injury -Renal functions improved. Discontinue IV fluid. -Nephrology followed the patient. DVT GI prophylaxis -Teds SCDs -Lovenox -Pantoprazole Discharge Planning: Patient has significant comorbid conditions. New lung mass. Will need further discussion with the patient and her son for goals of care. (4) Hypothyroidism Qualifiers: Hypothyroidism type: unspecified Qualified Code(s): E03.9 - Hypothyroidism, unspecified
[2018-04-30] MEDS: Ceftazidime/Avibactam Inj 1.25 GM in Sodium Chlor 0.9% Inj 50 ML IV.SIG SCH ×4 (00:40→23:59)
[2018-04-30] MEDS: Enoxaparin Inj 60 MG/0.6 ML Syringe SQ SCH ×2 (00:41→23:58)
[2018-04-30] MEDS: Hyoscyamine Liq Drops 0.125 MG/ML 15 ML Bottle SL SCH ×4 (03:45→21:21)
[2018-04-30] MEDS: Levothyroxine 100 MCG Tablet J-TUBE SCH (05:50)
[2018-04-30] MEDS: buPROPion 75 MG Tablet J-TUBE SCH ×2 (08:18→21:20)
[2018-04-30] MEDS: Ascorbic Acid 500 MG Tablet J-TUBE SCH ×2 (08:18→21:20)
[2018-04-30] MEDS: Pantoprazole Inj 40 MG Vial IV.PUSH SCH ×2 (08:18→21:19)
[2018-04-30] MEDS: Lactobacillus Acidophilus/L. Spores Tablet J-TUBE SCH ×3 (08:18→17:44)
[2018-04-30] MEDS ORDERED: Acetaminophen 325 MG Tablet PO PRN (08:53)
[2018-04-30] MEDS ORDERED: Sodium Chlor 0.9% Inj 250 ML IV.SIG SCH (09:00)
--- NOTE | 2018-04-30 12:42 | P.PN ---
Subjective Interval history: Stable on a trach collar. Fio2 at 28 %. Seen by Dr pineda. Physical Exam Vital signs: Vital Signs 04/29/18 13:16 04/29/18 15:48 04/29/18 17:42 Temperature 98.8 F Pulse Rate 88 Respiratory Rate 18 Blood Pressure 143/82 H Pulse Oximetry 98 98 04/29/18 20:00 04/30/18 00:00 04/30/18 04:00 Temperature 98.4 F 98.1 F 98.4 F Pulse Rate 60 62 64 Respiratory Rate 20 20 20 Blood Pressure 98/48 L 100/49 L 98/52 L Pulse Oximetry 98 97 99 04/30/18 08:00 04/30/18 11:38 04/30/18 11:54 Temperature 98.9 F 97.7 F 97.7 F Pulse Rate 66 64 63 Respiratory Rate 16 16 16 Blood Pressure 100/53 L 111/56 L 111/53 L Pulse Oximetry 98 98 99 04/30/18 12:00 Temperature 97.7 F Pulse Rate 63 Respiratory Rate 16 Blood Pressure 111/53 L Pulse Oximetry 99 Intake & Output 04/29/18 04/30/18 04/30/18 18:59 06:59 18:59 Intake Total 1100 / 1100 900 / 900 50 / 50 Output Total 1400 / 1400 Balance -300 / -300 900 / 900 50 / 50 Weight 60.5 kg Intake: IV 100 / 100 100 / 100 50 / 50 Avycaz Inj 1.25 GM In NS Inj 50 100 / 100 100 / 100 50 / 50 ML @ 25 mls/hr IV.SIG Q8H [facility] Rx#:[id number] Tube Feeding 600 / 600 400 / 400 Tube Irrigant 200 / 200 Water Bolus Amount 200 / 200 400 / 400 Intake (Blood Product) Amt 0 / 0 Rbc As-3 Leukoreduced Unit 0 / 0 [id number] Output: Urine 650 / 650 Gastric Drainage 750 / 750 Gastrojejunostomy Tube 750 / 750 Jejunostomy Tube 0 / 0 Other: # Voids 0 3 # Incontinent Voids 3 2 Date of Last Bowel Movement 04/29/18 04/29/18 # Bowel Movements 0 # Incontinent Bowel Movements 1 Narrative: Gen: Elderly W/F alert and NAD, resting in bed Neck: Trach in place with a Collar CV: Regular rate and rhythm. No murmur, S1 S2 Resp: Basal crackles and occ wheeze. Abd: Soft, nondistended, mild diffuse tenderness. Extr: No edema or lesions. Neuro : No focal deficits. Results - Labs CBC & Chem 7: 04/28/18 05:45 04/28/18 05:45 Laboratory Results - last 24 hr 04/30/18 10:00 Blood Type B Positive Antibody Screen Negative MTS Gel Crossmatch See Detail Microbiology 04/25/18 03:00 Sputum - Tracheal Aspirate Gram Stain - Final 04/25/18 03:00 Sputum - Tracheal Aspirate Sputum Culture - Final Pseudomonas aeruginosa Multidrug Resistant Acinetobacter lwoffii Assessment and Plan - Assessment (1) Respiratory failure Code(s): J96.90 - Respiratory failure, unspecified, unspecified whether with hypoxia or hypercapnia Status: Acute (2) Pneumonia Code(s): J18.9 - Pneumonia, unspecified organism Status: Acute (3) Status post trachelectomy Code(s): Z90.710 - Acquired absence of both cervix and uterus Status: Acute (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 Cont T Collar at 28 %. and wean. 2. Cont Duonebs qid. 3. PM valve to talk daytime upto 8 hrs 4. Cont Levsin .125 mg qid prn. 5. Tube feeds at 60 CC, jevity 6. Robinul 0.4 mg S/Q BID PRN 7. Dr Pineda her oncologist to evaluate her, for lung nodules, and may need Biopsy
--- NOTE | 2018-04-30 14:20 | P.PNPAL ---
Reason for Visit Reason for visit: a. To assist with evaluation and management of symptoms including: dyspnea, pain, debility, anxiety b. To assist medical decision maker(s) with: better understanding of current medical conditions; weighing benefits/burdens of medical treatment options; making medical treatment decisions. Subjective Subjective/Interval History: Pt resting in bed with trach collar. Napping. FiO2 28%, 5L via trach collar. Pt denies feeling SOB. Pulmonology and Oncology following, now with new lung mass, she is poor candidate for bx. Sputum growing PSAE MDRO sensitive to avycaz. SHe does admit feeling anxious. She doesn't know if she is able to ask for anything for anxiety. SHe does have PRN ativan which has not been used. She denies pain. No tenderness on exam. Re-addressed code status and goals of medical treatment with her. Initially says she would want to be DNR and that she thinks her son would be okay with that. Then she says she doesn't know. She wants to go home. I explained that she requires too much care to go home to live by herself. She indicated that she doesn't know what she wants to do. SHe verbalized understanding of CT chest results and that oncology was not recommending further work up. Objective Vital Signs: Vital Signs 04/29/18 15:48 04/29/18 17:42 04/29/18 20:00 Temperature 98.8 F 98.4 F Pulse Rate 88 60 Respiratory Rate 18 20 Blood Pressure 143/82 H 98/48 L Pulse Oximetry 98 98 04/30/18 00:00 04/30/18 04:00 04/30/18 08:00 Temperature 98.1 F 98.4 F 98.9 F Pulse Rate 62 64 66 Respiratory Rate 20 20 16 Blood Pressure 100/49 L 98/52 L 100/53 L Pulse Oximetry 97 99 98 04/30/18 11:38 04/30/18 11:54 04/30/18 12:00 Temperature 97.7 F 97.7 F 97.7 F Pulse Rate 64 63 63 Respiratory Rate 16 16 16 Blood Pressure 111/56 L 111/53 L 111/53 L Pulse Oximetry 98 99 99 Intake & Output 04/29/18 04/30/18 04/30/18 18:59 06:59 18:59 Intake Total 1100 / 1100 900 / 900 450 / 450 Output Total 1400 / 1400 Balance -300 / -300 900 / 900 450 / 450 Weight 60.5 kg Intake: IV 100 / 100 100 / 100 50 / 50 Avycaz Inj 1.25 GM In NS Inj 50 100 / 100 100 / 100 50 / 50 ML @ 25 mls/hr IV.SIG Q8H [facility] Rx#:[id number] Tube Feeding 600 / 600 400 / 400 Tube Irrigant 200 / 200 Water Bolus Amount 200 / 200 400 / 400 Intake (Blood Product) Amt 400 / 400 Rbc As-3 Leukoreduced Unit 400 / 400 [id number] Output: Urine 650 / 650 Gastric Drainage 750 / 750 Gastrojejunostomy Tube 750 / 750 Jejunostomy Tube 0 / 0 Other: # Voids 0 3 # Incontinent Voids 3 2 Date of Last Bowel Movement 04/29/18 04/29/18 # Bowel Movements 0 # Incontinent Bowel Movements 1 Physical Exam: CONSTITUTIONAL/GENERAL: this is a pale, ill appearing female with a tracheostomy SKIN: Pale. No jaundice, rashes, or lesions. No wounds seen anteriorly. Skin temperature appropriate. Not diaphoretic. HEAD: Atraumatic. Normocephalic. EYES: Extraocular motions intact. No scleral icterus. No injection or drainage. Fundi not examined. ENT: Hearing grossly normal. Nose without bleeding or purulent drainage. CARDIOVASCULAR: RRR without murmurs, gallops, or rubs. No JVD. Peripheral pulses symmetric. RESPIRATORY/CHEST: coarse lung sounds but less so than last eval. respirations shallow. trach collar GASTROINTESTINAL: Abdomen soft, non-tender, nondistended. No hepato-splenomegaly , or palpable masses. No guarding. Bowel sounds present. +GJ tube MUSCULOSKELETAL: Extremities without clubbing, cyanosis, or edema. No joint tenderness or effusion noted. No calf tenderness. No mottling or clubbing. NEUROLOGICAL: Awake and alert. Motor and sensory grossly within normal limits. Follows commands. Cognitively sharp. Moves all extremities. PSYCHIATRIC: appears anxious. no apparent hallucinations or other psychotic thought process. Diagnostic Tests Laboratory: Laboratory Results - last 72 hr 04/28/18 04/28/18 04/30/18 05:45 05:45 10:00 WBC 6.4 RBC 2.64 L Hgb 7.6 L Hct 22.3 L MCV 84.6 MCH 29.0 MCHC 34.2 RDW 17.7 H Plt Count 167 MPV 9.1 Sodium 136 Potassium 4.7 Chloride 97 L Carbon Dioxide 31.4 Anion Gap 8 BUN 31 H Creatinine 1.19 H Estimated GFR 45 L Random Glucose 106 Calcium 8.2 L Blood Type B Positive Antibody Screen Negative MTS Gel Crossmatch See Detail Result Diagrams: 04/28/18 05:45 04/28/18 05:45 Microbiology: Microbiology 04/25/18 03:00 Gram Stain - Final Sputum - Tracheal Aspirate Sputum Culture - Final Pseudomonas aeruginosa Multidrug Resistant Acinetobacter lwoffii 04/23/18 21:45 Aerobic Blood Culture - Final Blood - Peripheral No growth in 5 days Anaerobic Blood Culture - Final No growth in 5 days 04/23/18 21:39 Aerobic Blood Culture - Final Blood - Peripheral No growth in 5 days Anaerobic Blood Culture - Final No growth in 5 days Imaging: ITS Impressions Chest X-Ray 04/23/18 21:13 CONCLUSION: Slight interval worsening in aeration. Chest CT 04/29/18 00:00 CONCLUSION: 1. Enlarging spiculated nodule in the right upper lobe and interval development of 2 additional right lung nodules as described. 2. Bibasilar consolidating airspace disease with small parapneumonic effusions. 3. Interval placement of tracheostomy tube. 4. No other significant change. 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 Patient now has a tracheostomy. Pertinent Non-Medical Issues: Psychosocial: Patient is originally from [place]. She has 4 brothers and 2 sisters. She moved to [place] approximately 40 years ago. Patient was for 18 years and then . She and her had 3 sons (Alireza, Sagar and Cameron). Alireza is a physicians dental chairside assistant and lives in [place]. Adalid and Cameron live in [place]. Per patient, Cameron was born with "autism" and live in a halfway Spiritual: Restorationist Legal: Pt's son Alireza is medical POA. Ethical issues impacting care: none Important Contacts: medical POA son Alireza Whitten , cell [phone] Prognosis: This is a 73 yo lady with hx laryngeal ca diagnosed 2015 s/p chemo and radiation who presented 04/23 after [facility] called for hypoxia and respiratory distress while in [facility]. She initially presented in January with weakness, dysphagia, weight loss, anemia. She has since had tracheostomy, GJ, and numerous complications, now with pneumonia. She remains at risk for further decline, complications and setbacks. Code Status: Full Code Plan: - LEGAL DECISON MAKER - Pt is capacitated to make medical decisions. Should she become incapacitated, she has designated her son Alireza as medical POA. - CODE STATUS- full code - GOALS - Goals aggressive. Re-addressed code status and goals of medical treatment with her. Initially says she would want to be DNR and that she thinks her son would be okay with that. Then she says she doesn't know. She wants to go home. I explained that she requires too much care to go home to live by herself. She indicated that she doesn't know what she wants to do. SHe verbalized understanding of CT chest results and that oncology was not recommending further work up. - SYMPTOMS - * pain - risk for pain. multifactorial, coccygeal ulcer, mult lines and catheters, tubes. denies pain today on my eval. Has Leivasy 5/325 1 tab PRN q4h and 2 tab PRN q4h for mild and moderate to severe pain, respectively. Also has PRN roxanol 5mg q4h for breakthrough pain. is using 2 tabs most frequently. no further recs. * dyspnea - hx laryngeal ca, has trach, now with PNA. BCX pending. denies feeling SOB today. +secretions. lung sounds coarse. Had chest CT which showed enlarging spiculated nodule and 2 new developing nodules. Not candidate for lung bx. sputum growing PSAE MDRO sensitive to avycaz. has PRN and scheduled duonebs, PRN and nelson levsin. abx per ID. has PRN meds for anxiety and pain. abx per ID. * depression/anxiety - multifactorial. pt admitted feeling anxious today, recent CT showing enlarging lung mass. on lexapro, wellbutrin. has PRN ativan 1mg q6h. Has PRN temazepam for insomnia. RN to give PRN ativan * debility- multifactorial. 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 respiratory status unlikely to allow for aggressive therapy and rehab. per rehab notes 04/25 she had BP drop during thearpy. having recurrent PNA. weak. POLE FRAMER MACHINE and rehab have recommended strict NPO, no ice chips. PT following. no further recs. - d/w RN - Palliative care will continue to follow during hospital course as condition evolves, to assist patient/decision-maker with understanding of medical conditions, weighing benefits/burdens of treatment options, for clarification of goals of treatment. Additionally will assist with any symptoms of palliative concern Attestation Attestation: To help prompt me to consider important information that might be impacting today's encounter and assessment, information from prior notes written by myself or my colleagues may have been "brought forward" into today's note. My signature on this note, however, is an attestation that I personally performed the exam, history, and/or decision-making noted today, and, unless otherwise indicated, the interactions with patient, family, and staff as well as the review of records all occurred today. I also attest that the listed assessment and stated plan reflect my best clinical judgment today based on the combination of historical information, prior notes, and today's exam/ interactions. When time spent is documented, it refers only to time spent today by the signer, or if indicated, combined time spent today by collaborating physician/nurse practitioner.
[2018-04-30] MEDS: Temazepam 15 MG Capsule J-TUBE PRN (21:20)
[2018-05-01] MEDS: Hyoscyamine Liq Drops 0.125 MG/ML 15 ML Bottle SL SCH ×4 (05:16→21:01)
[2018-05-01] MEDS: Levothyroxine 100 MCG Tablet J-TUBE SCH (05:16)
--- NOTE | 2018-05-01 06:39 | MB ---
cc: Ivonne Pineda MD DATE: 04/30/2018 REASON FOR CONSULTATION: Consult requested by Dr. Martin for evaluation of enlarging pulmonary nodule and new pulmonary nodules which are subcentimeter. HISTORY OF PRESENT ILLNESS: Ana M is a 73-year-old female. She was diagnosed with a supraglottic laryngeal cancer in 2014. It was well differentiated invasive squamous cell carcinoma. She had a T4 N1 M0, stage III, supraglottic cancer. She was treated with concurrent chemotherapy, cisplatin, and radiation. The patient had responded to the treatment very well and the followup CT scan in 12/2015 showed no residual disease. The patient was subsequently lost to followup. Patient was recently admitted to the hospital in 01/2018. I was asked to see her for severe anemia. The patient was treated with blood transfusion. She was quite ill at that time to undergo a Bone marrow biopsy for evaluation of anemia. Finally, the patient did improve and she underwent bone marrow biopsy on 03/31. The pathology report showed a myelodysplastic syndrome. The cytogenetics showed that she has complex cytogenetic abnormalities which put her at high risk myelodysplastic syndrome. The patient was not considered to be a candidate for any chemotherapy for myelodysplasia. Supportive care with periodic blood transfusion was recommended. I have discussed the case with her son who has the power of rental car ferry driver and who is a physician virtual office assistant. He does not want her to have any chemotherapy. He agreed with the transfusion support. The patient was transferred to [facility]. She was getting physical therapy and she went into respiratory failure. She is now back to the hospital from [facility]. The patient has trach and PEG tube. She developed esophageal stricture which required multiple dilatations through Dr. Aly. The patient had a CT scan of the chest yesterday, which showed interval enlarging spiculated nodule in the right upper lobe of the lung with interval development of 2 additional subcentimeter nodules in the right lung. This was suspicious for possible malignancy. Dr. Martin had called me yesterday and had discussed the case. He is now requesting a consult for further evaluation. The patient's performance status is poor. She still has a trach and PEG tube. She appears to be very cachectic. She is unable to talk due to the tracheostomy. Her son is not present at this time. The rest of the review of systems is unable to obtain. PAST MEDICAL HISTORY: Myelodysplastic syndrome, history of supraglottic squamous cell carcinoma status post radiation and chemotherapy. Esophageal stricture, hypothyroidism, hemorrhoids, aspiration pneumonia. PAST SURGICAL HISTORY: Tonsillectomy, tracheostomy, PEG tube placement, appendectomy, cholecystectomy, upper endoscopy with multiple dilations, hernia repair. ALLERGIES: EPINEPHRINE, PENICILLIN, PEANUTS, LITHIUM, SOY PRODUCTS. FAMILY HISTORY: None for malignancy. SOCIAL HISTORY: The patient does not smoke cigarettes anymore. She used to smoke 1 pack a day for at least 30 years. She will occasionally drink alcohol. PHYSICAL EXAMINATION: GENERAL: She is a cachectic appearing white female in no apparent distress. VITAL SIGNS: Temperature 97.7, heart rate 63, blood pressure is 111/53. HEENT: PERRLA. EOMI, anicteric. No oral lesions noted. NECK: Tracheostomy tube noted. LUNGS: Decreased breath sounds on both sides with scattered wheezing. HEART: Regular rate and rhythm. ABDOMEN: Soft. PEG tube noted. EXTREMITIES: No pedal edema NEUROLOGIC: Awake, alert. SKIN: No significant lesions noted. ASSESSMENT: 1. Interval enlargement of spiculated right upper lobe lung nodule and 2 new subcentimeter lung nodules adjacent to the original mass. Etiology could be neoplastic versus infectious versus inflammatory. 2. Myelodysplastic syndrome, high risk. 3. History of supraglottic cancer, status post radiation and chemotherapy. 4. PEG tube placement and tracheostomy tube. PLAN: I have reviewed her available records. 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 Given the size of the pulmonary nodules, she is at high risk for nondiagnostic biopsy and risk for pneumothorax. She already has compromised lungs; and with a pneumothorax, she may end up going on the ventilator. Even if we do the biopsy and it confirm that she has lung cancer, she is not a candidate for any chemotherapy due to her poor performance status, which is completely bedridden. Also, due to the myelodysplasia, it will be difficult to give her chemotherapy. The patient stated that she wanted me to discuss with her son and she will do whatever son wants it. I will call her son and I will discuss with him. I will also discuss with Dr. Martin later on, but I did not recommend to do any lung biopsy at this time since the risk outweighs the benefit. Certainly, we can repeat a CT scan of the chest in 6-8 weeks to followup on these lung nodules. Thank you for asking my opinion. MD MIKI Saenz/amy , 12:02 AM , 12:22 AM [email or web address]
[2018-05-01] MEDS: Ceftazidime/Avibactam Inj 1.25 GM in Sodium Chlor 0.9% Inj 50 ML IV.SIG SCH ×2 (08:00→16:29)
--- NOTE | 2018-05-01 08:27 | P.PNIM ---
Subjective Interval history: Delayed entry. Progress note for 04/30/18 Patient seen and examined. She has no new complaints. States she feels miserable and just tired of being here. Physical Exam Vital signs: Vital Signs 04/30/18 11:38 04/30/18 11:54 04/30/18 12:00 Temperature 97.7 F 97.7 F 97.7 F Pulse Rate 64 63 63 Respiratory Rate 16 16 16 Blood Pressure 111/56 L 111/53 L 111/53 L Pulse Oximetry 98 99 99 04/30/18 16:00 04/30/18 17:54 04/30/18 20:00 Temperature 98.0 F 98 F Pulse Rate 72 63 Respiratory Rate 22 20 Blood Pressure 107/55 L 112/57 L Pulse Oximetry 97 97 99 05/01/18 00:00 05/01/18 03:21 05/01/18 04:00 Temperature 97.5 F L 98 F Pulse Rate 70 68 Respiratory Rate 20 20 Blood Pressure 108/60 100/62 Pulse Oximetry 97 94 L 98 Intake & Output 04/30/18 05/01/18 05/01/18 18:59 06:59 18:59 Intake Total 1160 / 1160 1670 / 1670 Output Total 550 / 550 100 / 100 Balance 610 / 610 1570 / 1570 Weight 59.6 kg Intake: IV 100 / 100 50 / 50 Avycaz Inj 1.25 GM In NS Inj 50 100 / 100 50 / 50 ML @ 25 mls/hr IV.SIG Q8H [facility] Rx#:[id number] Tube Feeding 660 / 660 1050 / 1050 Tube Irrigant 120 / 120 Water Bolus Amount 400 / 400 Other 50 / 50 Intake (Blood Product) Amt 400 / 400 Rbc As-3 Leukoreduced Unit 400 / 400 [id number] Output: Urine 350 / 350 Gastric Drainage 200 / 200 100 / 100 Gastrojejunostomy Tube 200 / 200 100 / 100 Other: # Voids 3 # Incontinent Voids 2 3 Date of Last Bowel Movement 04/29/18 05/01/18 # Bowel Movements 1 # Incontinent Bowel Movements 1 Narrative: Gen: Elderly female resting in bed. Neck: Trach in place with a Collar CV: Regular rate and rhythm; normal perfusion Resp: Upper respiratory rales. Otherwise mostly clear to auscultation Abd: Soft, nondistended, nontender. Extr: No edema or lesions. Results - Labs CBC & Chem 7: 05/01/18 09:40 05/01/18 09:40 Laboratory Results - last 24 hr 04/30/18 10:00 Blood Type B Positive Antibody Screen Negative MTS Gel Crossmatch See Detail Assessment and Plan - Assessment (1) Pneumonia Code(s): J18.9 - Pneumonia, unspecified organism Status: Acute (2) GERD (gastroesophageal reflux disease) Code(s): K21.9 - Gastro-esophageal reflux disease without esophagitis Status: Acute (3) DVT (deep venous thrombosis) Code(s): I82.409 - Acute embolism and thrombosis of unspecified deep veins of unspecified lower extremity Status: Acute (4) Hypothyroidism Code(s): E03.9 - Hypothyroidism, unspecified Status: Chronic (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 Lung mass: 04/29/18: CT of the chest revealed enlarging spiculated nodule in the right upper lobe and interval development of 2 additional right lung nodules as described. -ID following -Repeat sputum culture grew multi resistant Pseudomonas and Acinetobacter -Continue Avycaz. Per ID -Pulmonology following -Duonebs -Continue to monitor saturations; titrate O2 as needed -Continue DVT treatment -Oncology is consulted. Awaiting input. GERD. On tube feeds -Continue tube feedings while NPO -Pantoprazole IV every 12hrs -Machine Stacker consulted -Continue vital 1.5 x55ml/hr w/ 2 hr hold for Levothyroxine - pain medication as needed for abdominal pain. Decrease Free water frequency. Weakness/laryngeal cancer Severe protein calorie malnutrition Frail in appearance with BMI 20.5; on tube feeds with laryngeal cancer -continue current feeding regimen -Monitor electrolytes -Continue PT Hypothyroidism -Levothyroxine Depression -Wellbutrin -Escitalopram Recent Pneumonia w/ resistant pseudomonas. Recent Cdiff; stool testing negative -Continue management per ID for pneumonia with Avycaz. -Repeat sputum culture still growing multi resistant Pseudomonas. DVT, anemia. Myelodysplastic disorder -Lovenox 60 mg subcu daily -dose adjusted due to low GFR -Monitor Hgb; Stable today 7.8 -Per EMR, has required multiple transfusions every ~2 weeks. Continue to monitor. Chronic renal insufficiency: Baseline Cr 1 ~02/2018. Has persistently had mild renal injury -Renal functions improved. IV fluid previously discontinued. -Nephrology followed the patient. DVT GI prophylaxis -Teds SCDs -Lovenox -Pantoprazole Discharge Planning: Patient has significant comorbid conditions. New lung mass. Will need further discussion with the patient and her son for goals of care. (4) Hypothyroidism Qualifiers: Hypothyroidism type: unspecified Qualified Code(s): E03.9 - Hypothyroidism, unspecified
--- NOTE | 2018-05-01 08:29 | P.PNIM ---
Subjective Interval history: Patient reports she is feeling okay. Had one episode of diarrhea today. Has been seen by oncology. Physical Exam Vital signs: Vital Signs 04/30/18 11:38 04/30/18 11:54 04/30/18 12:00 Temperature 97.7 F 97.7 F 97.7 F Pulse Rate 64 63 63 Respiratory Rate 16 16 16 Blood Pressure 111/56 L 111/53 L 111/53 L Pulse Oximetry 98 99 99 04/30/18 16:00 04/30/18 17:54 04/30/18 20:00 Temperature 98.0 F 98 F Pulse Rate 72 63 Respiratory Rate 22 20 Blood Pressure 107/55 L 112/57 L Pulse Oximetry 97 97 99 05/01/18 00:00 05/01/18 03:21 05/01/18 04:00 Temperature 97.5 F L 98 F Pulse Rate 70 68 Respiratory Rate 20 20 Blood Pressure 108/60 100/62 Pulse Oximetry 97 94 L 98 Intake & Output 04/30/18 05/01/18 05/01/18 18:59 06:59 18:59 Intake Total 1160 / 1160 1670 / 1670 Output Total 550 / 550 100 / 100 Balance 610 / 610 1570 / 1570 Weight 59.6 kg Intake: IV 100 / 100 50 / 50 Avycaz Inj 1.25 GM In NS Inj 50 100 / 100 50 / 50 ML @ 25 mls/hr IV.SIG Q8H [facility] Rx#:[id number] Tube Feeding 660 / 660 1050 / 1050 Tube Irrigant 120 / 120 Water Bolus Amount 400 / 400 Other 50 / 50 Intake (Blood Product) Amt 400 / 400 Rbc As-3 Leukoreduced Unit 400 / 400 [id number] Output: Urine 350 / 350 Gastric Drainage 200 / 200 100 / 100 Gastrojejunostomy Tube 200 / 200 100 / 100 Other: # Voids 3 # Incontinent Voids 2 3 Date of Last Bowel Movement 04/29/18 05/01/18 # Bowel Movements 1 # Incontinent Bowel Movements 1 Narrative: Gen: Elderly female resting in bed. Neck: Trach in place with a Collar CV: Regular rate and rhythm; normal perfusion Resp: Upper respiratory rales. Otherwise mostly clear to auscultation Abd: Soft, nondistended, nontender. Extr: No edema or lesions. Results - Labs CBC & Chem 7: 05/01/18 09:40 05/01/18 09:40 Laboratory Results - last 24 hr 04/30/18 10:00 Blood Type B Positive Antibody Screen Negative MTS Gel Crossmatch See Detail Assessment and Plan - Assessment (1) Pneumonia Code(s): J18.9 - Pneumonia, unspecified organism Status: Acute (2) GERD (gastroesophageal reflux disease) Code(s): K21.9 - Gastro-esophageal reflux disease without esophagitis Status: Acute (3) DVT (deep venous thrombosis) Code(s): I82.409 - Acute embolism and thrombosis of unspecified deep veins of unspecified lower extremity Status: Acute (4) Hypothyroidism Code(s): E03.9 - Hypothyroidism, unspecified Status: Chronic (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 Lung mass: 04/29/18: CT of the chest revealed enlarging spiculated nodule in the right upper lobe and interval development of 2 additional right lung nodules as described. -ID following -Repeat sputum culture grew multi resistant Pseudomonas and Acinetobacter -Continue Avycaz. Per ID -Pulmonology following -Duonebs -Continue to monitor saturations; titrate O2 as needed -Continue DVT treatment -Appreciate oncology input regarding lung mass. Agree the patient is not a candidate for biopsy or chemotherapy or radiation at this point. Dr. Pineda will discuss with the patient's son. GERD. On tube feeds -Continue tube feedings while NPO -Pantoprazole IV every 12hrs -Derrick Boat Captain consulted -Continue vital 1.5 x55ml/hr w/ 2 hr hold for Levothyroxine - pain medication as needed for abdominal pain. Diarrhea: Could be related to tube feeding. We will consult dietitian. Weakness/laryngeal cancer Severe protein calorie malnutrition Frail in appearance with BMI 20.5; on tube feeds with laryngeal cancer -continue current feeding regimen -Monitor electrolytes -Continue PT Hypothyroidism -Levothyroxine Depression -Wellbutrin -Escitalopram Recent Pneumonia w/ resistant pseudomonas. Recent Cdiff; stool testing negative -Continue management per ID for pneumonia with Avycaz. -Repeat sputum culture still growing multi resistant Pseudomonas. DVT, anemia. Myelodysplastic disorder -Lovenox 60 mg subcu daily -dose adjusted due to low GFR -Monitor Hgb; Stable today 7.8 -Per EMR, has required multiple transfusions every ~2 weeks. Continue to monitor. Chronic renal insufficiency: Baseline Cr 1 ~1 02/2018. Has persistently had mild renal injury -Renal functions improved. -Nephrology followed the patient. DVT GI prophylaxis -Teds SCDs -Lovenox -Pantoprazole Discharge Planning: Pending further discussion with the patient's son. (4) Hypothyroidism Qualifiers: Hypothyroidism type: unspecified Qualified Code(s): E03.9 - Hypothyroidism, unspecified
[2018-05-01] MEDS: buPROPion 75 MG Tablet J-TUBE SCH ×2 (09:17→21:01)
[2018-05-01] MEDS: Pantoprazole Inj 40 MG Vial IV.PUSH SCH ×2 (09:18→21:01)
[2018-05-01] MEDS: Lactobacillus Acidophilus/L. Spores Tablet J-TUBE SCH ×3 (09:19→17:14)
[2018-05-01] MEDS: Ascorbic Acid 500 MG Tablet J-TUBE SCH ×2 (09:19→21:01)
[2018-05-01] MEDS: Simethicone 125 MG Chew Tablet J-TUBE PRN (09:20)
[2018-05-01 10:06] LABS: Hematocrit 26.6 % (35.0-46.0); Hemoglobin 8.9 gm/dL (11.6-15.3); Mean Corpuscular HGB Conc 33.5 % (32.0-36.0); Mean Corpuscular Hemoglobin 28.9 pg (27.0-34.0); Mean Corpuscular Volume 86.2 fL (80.0-100.0); Mean Platelet Volume 9.2 fL (7.0-11.0); Platelet Count 148 th/mm3 (150-450); Red Blood Count 3.08 mil/mm3 (4.00-5.30); Red Cell Distribution Width 16.6 % (11.6-17.2); White Blood Count 5.3 th/mm3 (4.0-11.0)
[2018-05-01 10:34] LABS: Calcium 8.4 mg/dL (8.5-10.1)
--- NOTE | 2018-05-01 16:50 | P.PNWCN ---
Wound Care Nurse Consult Description: Patient seen for follow up wound to coccyx Communicated with: KIRSTEN Garnica Recommendation: Please continure optifoam gentle border Wound/Pressure Injury - Patient Status Premedicated for Pain Prior to Dressing Change: No - Wound Coccyx Wound Assessment: Ongoing Wound Type: Pressure Injury Is This a Chronic Wound: No Requested from Provider a Wound Care Consult: No Length: 1.5 (~1.5cm) Width: 0.5 (~0.5cm) Depth: 0.1 Wound Bed Appearance: [place], White Wound Bed Appearance: Wound bed presents with ~50% pink tissue and ~50% white tissue Surrounding Tissue Appearance: Blanched/Dull (blanchable pink skin) Surrounding Tissue Temperature: Warm Drainage Description: Serous Drainage Amount: Scant Drainage Odor: No Odor Dressing Status: Open to Air Cleansing Solution: Saline - Additional Information Patient seen for follow up of full thickness wound to coccyx area.Patient is laying on [employer] medical mattress and is able to turn herself with minimal assist to R side. Wound noted to coccyx is open to air. Wound has now improved to partial thickness, Wound care recommendations, wound description and measurements are noted above. KIRSTEN Hurst to apply dressing as ordered. Incision - Patient Status Premedicated for Pain Prior to Dressing Change: No
[2018-05-01] MEDS: Morphine Sulfate Oral Liq 10 MG/0.5 ML Syringe SL PRN (17:14)
--- NOTE | 2018-05-01 19:01 | P.PN ---
Subjective Interval history: she is better. Able to talk well. On a T bar at 30 % Trach secretions are mild Physical Exam Vital signs: Vital Signs 04/30/18 20:00 05/01/18 00:00 05/01/18 03:21 Temperature 98 F 97.5 F L Pulse Rate 63 70 Respiratory Rate 20 20 Blood Pressure 112/57 L 108/60 Pulse Oximetry 99 97 94 L 05/01/18 04:00 05/01/18 08:00 05/01/18 09:50 Temperature 98 F 97.9 F Pulse Rate 68 74 Respiratory Rate 20 20 20 Blood Pressure 100/62 102/74 Pulse Oximetry 98 97 05/01/18 12:00 05/01/18 16:00 05/01/18 17:46 Temperature 98 F 98.3 F Pulse Rate 60 68 Respiratory Rate 20 18 20 Blood Pressure 108/64 104/74 Pulse Oximetry 95 97 Intake & Output 04/30/18 05/01/18 05/01/18 18:59 06:59 18:59 Intake Total 1160 / 1160 1670 / 1670 1610 / 1610 Output Total 550 / 550 100 / 100 1000 / 1000 Balance 610 / 610 1570 / 1570 610 / 610 Weight 59.6 kg Intake: IV 100 / 100 50 / 50 350 / 350 Avycaz Inj 1.25 GM In NS Inj 50 100 / 100 50 / 50 100 / 100 ML @ 25 mls/hr IV.SIG Q8H [facility] Rx#:[id number] Oral 100 / 100 Tube Feeding 660 / 660 1050 / 1050 660 / 660 Tube Irrigant 120 / 120 Water Bolus Amount 400 / 400 500 / 500 Other 50 / 50 Intake (Blood Product) Amt 400 / 400 Rbc As-3 Leukoreduced Unit 400 / 400 [id number] Output: Urine 350 / 350 450 / 450 Gastric Drainage 200 / 200 100 / 100 550 / 550 Gastrojejunostomy Tube 200 / 200 100 / 100 550 / 550 Other: # Voids 3 4 # Incontinent Voids 2 3 Date of Last Bowel Movement 04/29/18 05/01/18 05/01/18 # Bowel Movements 1 2 # Incontinent Bowel Movements 1 Narrative: Gen: Elderly female on a T collar with trach Neck: Trach in place. CV: Regular rate and rhythm; normal perfusion Resp: Few coarse wheezes and mostly clear to auscultation Abd: Soft, nondistended, nontender. Extr: No edema or lesions. Results - Labs CBC & Chem 7: 05/01/18 09:40 05/01/18 09:40 Laboratory Results - last 24 hr 05/01/18 05/01/18 09:40 09:40 WBC 5.3 RBC 3.08 L Hgb 8.9 L Hct 26.6 L MCV 86.2 MCH 28.9 MCHC 33.5 RDW 16.6 Plt Count 148 L MPV 9.2 Sodium 135 L Potassium 5.0 Chloride 99 Carbon Dioxide 28.0 Anion Gap 8 BUN 38 H Creatinine 1.24 H Estimated GFR 43 L Random Glucose 93 Calcium 8.4 L Assessment and Plan - Assessment (1) Respiratory failure Code(s): J96.90 - Respiratory failure, unspecified, unspecified whether with hypoxia or hypercapnia Status: Acute (2) Pneumonia Code(s): J18.9 - Pneumonia, unspecified organism Status: Acute (3) Status post trachelectomy Code(s): Z90.710 - Acquired absence of both cervix and uterus Status: Acute (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 Cont T Collar at 28 %. 2. Cont Duonebs qid. 3. PM valve to talk daytime upto 12 hrs 4. Cont Levsin .125 mg qid prn. 5. Tube feeds at 60 CC, jevity 6. Robinul 0.4 mg S/Q BID PRN 7. F/U CT chest in 8 weeks .
[2018-05-02] MEDS: Enoxaparin Inj 60 MG/0.6 ML Syringe SQ SCH (00:43)
[2018-05-02] MEDS: Ceftazidime/Avibactam Inj 1.25 GM in Sodium Chlor 0.9% Inj 50 ML IV.SIG SCH ×3 (00:43→16:00)
[2018-05-02] MEDS: Hyoscyamine Liq Drops 0.125 MG/ML 15 ML Bottle SL SCH ×4 (04:33→21:17)
[2018-05-02] MEDS: Morphine Sulfate Oral Liq 10 MG/0.5 ML Syringe SL PRN (04:33)
[2018-05-02] MEDS: Levothyroxine 100 MCG Tablet J-TUBE SCH (06:10)
[2018-05-02] MEDS: buPROPion 75 MG Tablet J-TUBE SCH ×2 (09:33→20:49)
[2018-05-02] MEDS: Ascorbic Acid 500 MG Tablet J-TUBE SCH ×2 (09:33→20:49)
[2018-05-02] MEDS: Pantoprazole Inj 40 MG Vial IV.PUSH SCH ×2 (09:33→20:49)
[2018-05-02] MEDS: Lactobacillus Acidophilus/L. Spores Tablet J-TUBE SCH ×3 (09:33→17:09)
[2018-05-02] MEDS: Simethicone 125 MG Chew Tablet J-TUBE PRN (09:35)
--- NOTE | 2018-05-02 09:55 | P.PNIM ---
Subjective Interval history: Patient reports feeling better today. Respiratory status stable. Physical Exam Vital signs: Vital Signs 05/01/18 12:00 05/01/18 16:00 05/01/18 17:46 Temperature 98 F 98.3 F Pulse Rate 60 68 Respiratory Rate 20 18 20 Blood Pressure 108/64 104/74 Pulse Oximetry 95 97 05/01/18 20:00 05/01/18 21:39 05/02/18 00:00 Temperature 98.7 F 97.8 F Pulse Rate 62 65 Respiratory Rate 20 Blood Pressure 97/49 L 88/45 L Pulse Oximetry 94 L 99 96 05/02/18 04:00 05/02/18 09:42 Temperature 97.7 F Pulse Rate 74 Respiratory Rate 18 Blood Pressure 96/52 L Pulse Oximetry 98 99 Intake & Output 05/01/18 05/02/18 05/02/18 18:59 06:59 18:59 Intake Total 1610 / 1610 690 / 690 Output Total 1000 / 1000 Balance 610 / 610 690 / 690 Weight 59.9 kg Intake: IV 350 / 350 50 / 50 Avycaz Inj 1.25 GM In NS Inj 50 100 / 100 50 / 50 ML @ 25 mls/hr IV.SIG Q8H [facility] Rx#:[id number] Oral 100 / 100 Tube Feeding 660 / 660 440 / 440 Water Bolus Amount 500 / 500 200 / 200 Output: Urine 450 / 450 Gastric Drainage 550 / 550 Gastrojejunostomy Tube 550 / 550 Other: # Voids 4 Date of Last Bowel Movement 05/01/18 # Bowel Movements 2 Narrative: Gen: Elderly female in no acute distress on a T collar with trach Neck: supple. no JVD CV: Regular rate and rhythm. Resp: Upper respiratory congestion sounds. Otherwise clear to auscultation. Abd: Soft, nondistended, nontender. Extr: No edema or lesions. Moves all extremities. Results - Labs CBC & Chem 7: 05/01/18 09:40 05/01/18 09:40 Laboratory Results - last 24 hr 05/01/18 05/01/18 09:40 09:40 WBC 5.3 RBC 3.08 L Hgb 8.9 L Hct 26.6 L MCV 86.2 MCH 28.9 MCHC 33.5 RDW 16.6 Plt Count 148 L MPV 9.2 Sodium 135 L Potassium 5.0 Chloride 99 Carbon Dioxide 28.0 Anion Gap 8 BUN 38 H Creatinine 1.24 H Estimated GFR 43 L Random Glucose 93 Calcium 8.4 L Assessment and Plan - Assessment (1) Pneumonia Code(s): J18.9 - Pneumonia, unspecified organism Status: Acute (2) GERD (gastroesophageal reflux disease) Code(s): K21.9 - Gastro-esophageal reflux disease without esophagitis Status: Acute (3) DVT (deep venous thrombosis) Code(s): I82.409 - Acute embolism and thrombosis of unspecified deep veins of unspecified lower extremity Status: Acute (4) Hypothyroidism Code(s): E03.9 - Hypothyroidism, unspecified Status: Chronic (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 Lung mass: 04/29/18: CT of the chest revealed enlarging spiculated nodule in the right upper lobe and interval development of 2 additional right lung nodules as described. -ID following -Repeat sputum culture grew multi resistant Pseudomonas and Acinetobacter -Continue Avycaz. Per ID -Pulmonology following -Duonebs -Continue to monitor saturations; titrate O2 as needed -Continue DVT treatment -Appreciate oncology and pulmonology input regarding lung mass. Agree the patient is not a candidate for biopsy or chemotherapy or radiation at this point. -Plan is to repeat CT in 8 weeks. GERD. On tube feeds -Continue tube feedings while NPO -Pantoprazole IV every 12hrs -Counselor Education Professor consulted -Continue vital 1.5 x55ml/hr w/ 2 hr hold for Levothyroxine - pain medication as needed for abdominal pain. Diarrhea: Could be related to tube feeding. Dietitian consulted Weakness/laryngeal cancer Severe protein calorie malnutrition Frail in appearance with BMI 20.5; on tube feeds with laryngeal cancer -continue current feeding regimen -Monitor electrolytes -Continue PT Hypothyroidism -Levothyroxine Depression -Wellbutrin -Escitalopram Recent Pneumonia w/ resistant pseudomonas. Recent Cdiff; stool testing negative -Continue management per ID for pneumonia with Avycaz. -Repeat sputum culture still growing multi resistant Pseudomonas. DVT, anemia. Myelodysplastic disorder -Lovenox 60 mg subcu daily -dose adjusted due to low GFR -Monitor Hgb; Stable today 7.8 -Per EMR, has required multiple transfusions every ~2 weeks. Continue to monitor. Chronic renal insufficiency: Baseline Cr 1 ~02/2018. Has persistently had mild renal injury -Renal functions improved. -Nephrology followed the patient. DVT GI prophylaxis -Teds SCDs -Lovenox -Pantoprazole Discharge Planning: Patient will need placement. Case management consulted.? SNF. (4) Hypothyroidism Qualifiers: Hypothyroidism type: unspecified Qualified Code(s): E03.9 - Hypothyroidism, unspecified
--- NOTE | 2018-05-02 12:58 | P.PN ---
Subjective Interval history: Awake and seems better. On a T bar and talking. Physical Exam Vital signs: Vital Signs 05/01/18 16:00 05/01/18 17:46 05/01/18 20:00 Temperature 98.3 F 98.7 F Pulse Rate 68 62 Respiratory Rate 18 20 20 Blood Pressure 104/74 97/49 L Pulse Oximetry 97 94 L 05/01/18 21:39 05/02/18 00:00 05/02/18 04:00 Temperature 97.8 F 97.7 F Pulse Rate 65 74 Respiratory Rate 18 Blood Pressure 88/45 L 96/52 L Pulse Oximetry 99 96 98 05/02/18 09:42 Temperature Pulse Rate Respiratory Rate Blood Pressure Pulse Oximetry 99 Intake & Output 05/01/18 05/02/18 05/02/18 18:59 06:59 18:59 Intake Total 1610 / 1610 690 / 690 Output Total 1000 / 1000 Balance 610 / 610 690 / 690 Weight 59.9 kg Intake: IV 350 / 350 50 / 50 Avycaz Inj 1.25 GM In NS Inj 50 100 / 100 50 / 50 ML @ 25 mls/hr IV.SIG Q8H [facility] Rx#:[id number] Oral 100 / 100 Tube Feeding 660 / 660 440 / 440 Water Bolus Amount 500 / 500 200 / 200 Output: Urine 450 / 450 Gastric Drainage 550 / 550 Gastrojejunostomy Tube 550 / 550 Other: # Voids 4 Date of Last Bowel Movement 05/01/18 # Bowel Movements 2 Narrative: Gen: Elderly female on a T collar with trach Neck: supple. no JVD CV: Regular rate and rhythm. Resp: Few coarse wheezes and mostly clear to auscultation Abd: Soft, nondistended, nontender. Extr: No edema or lesions.Moves all well. 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 Cont T Collar at 30 %. 2. Cont Duonebs qid. 3. PM valve to talk daytime upto 12 hrs 4. Cont Levsin .125 mg qid prn. 5. Tube feeds at 60 CC, jevity 6. Robinul 0.4 mg S/Q BID PRN 7. F/U CT chest in 8 weeks . 8. D/W son Quinton .
--- NOTE | 2018-05-02 16:32 | P.PNONC ---
Objective Vital Signs/Intake & Output: Vital Signs 05/01/18 17:46 05/01/18 20:00 05/01/18 21:39 Temperature 98.7 F Pulse Rate 62 Respiratory Rate 20 20 Blood Pressure 97/49 L Pulse Oximetry 94 L 99 05/02/18 00:00 05/02/18 04:00 05/02/18 08:00 Temperature 97.8 F 97.7 F 98.7 F Pulse Rate 65 74 80 Respiratory Rate 18 18 Blood Pressure 88/45 L 96/52 L 100/58 L Pulse Oximetry 96 98 97 05/02/18 09:42 05/02/18 10:04 05/02/18 12:00 Temperature 98.0 F Pulse Rate 60 Respiratory Rate 20 18 Blood Pressure 99/54 L Pulse Oximetry 99 98 Intake & Output 05/01/18 05/02/18 05/02/18 18:59 06:59 18:59 Intake Total 1610 / 1610 690 / 690 50 / 50 Output Total 1000 / 1000 Balance 610 / 610 690 / 690 50 / 50 Weight 59.9 kg Intake: IV 350 / 350 50 / 50 50 / 50 Avycaz Inj 1.25 GM In NS Inj 50 100 / 100 50 / 50 50 / 50 ML @ 25 mls/hr IV.SIG Q8H [facility] Rx#:[id number] Oral 100 / 100 Tube Feeding 660 / 660 440 / 440 Water Bolus Amount 500 / 500 200 / 200 Output: Urine 450 / 450 Gastric Drainage 550 / 550 Gastrojejunostomy Tube 550 / 550 Other: # Voids 4 Date of Last Bowel Movement 05/01/18 05/02/18 # Bowel Movements 2 Result Diagrams: 05/01/18 09:40 05/01/18 09:40 Culture Results: Microbiology 04/25/18 03:00 Gram Stain - Final Sputum - Tracheal Aspirate Sputum Culture - Final Pseudomonas aeruginosa Multidrug Resistant Acinetobacter lwoffii Medications: Active Medications Generic Name Dose Route Start Last Admin Trade Name Freq PRN Reason Stop Dose Admin Hydrocodone Bitart/Acetaminophen 1 tab 04/23/18 20:59 04/30/18 00:42 Dunmor 5/325 J-TUBE 1 tab Q4H PRN Administration PAIN 2-5 Hydrocodone Bitart/Acetaminophen 2 tab 04/23/18 20:59 05/02/18 09:34 Dunmor 5/325 J-TUBE 2 tab Q4H PRN Administration PAIN 6-10 Ascorbic Acid 500 mg 04/26/18 21:00 05/02/18 09:33 Vitamin C J-TUBE 500 mg BID ANN Administration Bupropion HCl 150 mg 04/23/18 21:00 05/02/18 09:33 Wellbutrin J-TUBE 150 mg BID ANN Administration Cetirizine HCl 10 mg 04/26/18 21:00 05/01/18 21:01 Zyrtec J-TUBE 10 mg HS ANN Administration Enoxaparin Sodium 60 mg 04/24/18 00:00 05/02/18 00:43 Lovenox Inj SQ 60 mg Q24H ANN Administration Escitalopram Oxalate 20 mg 04/24/18 09:00 05/02/18 09:33 Lexapro J-TUBE 20 mg DAILY ANN Administration Glycopyrrolate 0.4 mg 04/23/18 20:59 05/02/18 09:34 Robinul Inj IV.PUSH 0.4 mg Q8H PRN Administration thick secretions Hyoscyamine 0.125 mg 04/26/18 16:00 05/02/18 09:35 Levsin Liq SL 0.125 mg Q6H ANN Administration Ceftazidime/Avibactam 1.25 gm/ 50 mls @ 25 mls/hr 04/24/18 16:00 05/02/18 11: 00 Sodium Chloride IV.SIG Infused Q8H ANN Infusion Lactobacillus Acidophilus 1 tab 04/24/18 09:00 05/02/18 13:37 Lactinex J-TUBE 1 tab TID ANN Administration Levothyroxine Sodium 100 mcg 04/27/18 06:00 05/02/18 06:10 Synthroid J-TUBE 100 mcg DAILY@0600 ANN Administration Lidocaine HCl 2.5 ml 04/27/18 21:23 04/27/18 22:43 Xylocaine 2% Viscous OROPHARYNG 2.5 ml Q6H PRN Administration SEE LABEL COMMENTS Lorazepam 1 mg 04/23/18 20:59 05/01/18 21:02 Ativan Inj IV.PUSH 1 mg Q6H PRN Administration Anxiety Metoclopramide HCl 5 mg 04/24/18 00:00 05/02/18 13:36 Reglan Inj IV.PUSH 5 mg Q6HR ANN Administration Protocol Morphine Sulfate 5 mg 04/23/18 20:59 05/02/18 04:33 Roxanol Liq SL 5 mg Q4H PRN Administration BREAKTHROUGH pain 2-10 Multivitamins 1 tab 04/27/18 09:00 05/02/18 09:33 Theragran J-TUBE 1 tab DAILY ANN Administration Pantoprazole Sodium 40 mg 04/23/18 21:00 05/02/18 09:33 Protonix Inj IV.PUSH 40 mg Q12H ANN Administration Simethicone 125 mg 04/23/18 20:59 05/02/18 09:35 Phazyme Chew J-TUBE 125 mg Q4H PRN Administration RELATING TO BLOATING Sodium Chloride 2 ml 04/24/18 09:00 05/02/18 09:33 Ns Flush IV.FLUSH 2 ml BID ANN Administration Sodium Chloride 2 ml 04/23/18 21:09 04/26/18 21:00 Ns Flush IV.FLUSH 2 ml PRN PRN Administration FLUSH AFTER USING IV ACCESS Sterile Water 0 ml 04/29/18 22:00 05/02/18 13:37 Free Water J-TUBE 200 ml Q8HR ANN Administration Temazepam 15 mg 04/26/18 16:45 04/30/18 21:20 Restoril J-TUBE 15 mg HS PRN Administration INSOMNIA Zinc Sulfate 220 mg 04/24/18 09:00 05/02/18 09:33 Zinc-220 J-TUBE 220 mg DAILY ANN Administration Objective Remarks: GENERAL: Well-nourished, well-developed patient. SKIN: Warm and dry. HEAD: Normocephalic. EYES: No scleral icterus. No injection or drainage. NECK: Supple, trachea midline. No JVD or lymphadenopathy. LYMPHATIC: No adenopathy. CARDIOVASCULAR: Regular rate and rhythm without murmurs. RESPIRATORY: Breath sounds equal bilaterally. No accessory muscle use. GASTROINTESTINAL: Abdomen soft, non-tender, nondistended. EXTREMITIES: No cyanosis, or edema. MUSCULOSKELETAL: Adequate muscle tone. NEUROLOGICAL: No obvious focal deficit. Awake, alert, and oriented x3. PSYCHIATRIC: Appropriate mood and affect; insight and judgment normal. Assessment/Plan (1) Lung nodules Code(s): R91.8 - Other nonspecific abnormal finding of lung field Status: Acute - Plan I had an extensive discussion with the patient's son Quinton over the phone. He is a physician family medicine physician assistant. I have discussed with him regarding the pulmonary nodules. We discussed the pros and cons of lung nodule biopsy. He agreed that no biopsy should be done at this time. A repeat CAT scan of the chest should be done in 6-12 weeks. If the repeat CAT scan shows enlargement of the lung nodules then he will decide whether he wants her to have lung biopsy or not. He understands this very well since he has done pulmonary critical care. The interval enlargement of the lung nodule could be due to the CT cuts. 2 new subcentimeter lung nodules could be due to CT cuts as well. He wants this to be just observe. He seems to be very reasonable about this.
--- NOTE | 2018-05-02 19:41 | P.PNID ---
Subjective Remarks: doing well afebrile scant yellow secretions + diarrhea, 3 liquid BMs c/o crampy LLQ pain Antibiotics: aycaz Past Medical History: lung ca Allergies/Adverse Reactions: Allergies epinephrine Allergy (Severe, Verified 02/21/18 08:40) TACHYCARDIA penicillin G Allergy (Severe, Verified 02/21/18 08:40) Hives peanut Allergy (Intermediate, Verified 02/21/18 08:40) ANAPHYLAXIS legumes Allergy (Unknown, Verified 03/06/18 21:48) Anaphylaxis UNKNOWN soy Allergy (Verified 03/06/18 21:45) Rash UNKNOWN Objective Vital Signs 05/01/18 20:00 05/01/18 21:39 05/02/18 00:00 Temperature 98.7 F 97.8 F Pulse Rate 62 65 Respiratory Rate 20 Blood Pressure 97/49 L 88/45 L Pulse Oximetry 94 L 99 96 05/02/18 04:00 05/02/18 08:00 05/02/18 09:42 Temperature 97.7 F 98.7 F Pulse Rate 74 80 Respiratory Rate 18 18 Blood Pressure 96/52 L 100/58 L Pulse Oximetry 98 97 99 05/02/18 10:04 05/02/18 12:00 05/02/18 16:00 Temperature 98.0 F 98.7 F Pulse Rate 60 70 Respiratory Rate 20 18 20 Blood Pressure 99/54 L 97/60 L Pulse Oximetry 98 98 05/02/18 17:20 Temperature Pulse Rate Respiratory Rate Blood Pressure Pulse Oximetry 96 Intake & Output 05/02/18 05/02/18 05/03/18 06:59 18:59 06:59 Intake Total 690 / 690 1410 / 1410 Output Total 2200 / 2200 Balance 690 / 690 -790 / -790 Weight 59.9 kg Intake: IV 50 / 50 100 / 100 Avycaz Inj 1.25 GM In NS Inj 50 50 / 50 100 / 100 ML @ 25 mls/hr IV.SIG Q8H [facility] Rx#:[id number] Oral 100 / 100 Tube Feeding 440 / 440 660 / 660 Water Bolus Amount 200 / 200 550 / 550 Output: Urine 500 / 500 Gastric Drainage 1700 / 1700 Gastrojejunostomy Tube 1700 / 1700 Other: # Voids 3 Date of Last Bowel Movement 05/02/18 # Bowel Movements 1 Lab - Hematology Results 05/01/18 09:40 WBC 5.3 RBC 3.08 L Hgb 8.9 L Hct 26.6 L MCV 86.2 MCH 28.9 MCHC 33.5 RDW 16.6 Plt Count 148 L MPV 9.2 Lab - Chemistry Results 05/01/18 09:40 Sodium 135 L Potassium 5.0 Chloride 99 Carbon Dioxide 28.0 Anion Gap 8 BUN 38 H Creatinine 1.24 H Estimated GFR 43 L Random Glucose 93 Calcium 8.4 L Imaging: ITS Impressions Chest X-Ray 04/23/18 21:13 CONCLUSION: Slight interval worsening in aeration. Chest CT 04/29/18 00:00 CONCLUSION: 1. Enlarging spiculated nodule in the right upper lobe and interval development of 2 additional right lung nodules as described. 2. Bibasilar consolidating airspace disease with small parapneumonic effusions. 3. Interval placement of tracheostomy tube. 4. No other significant change. Physical Exam: GENERAL: NAD thin chronically ill apperaing SKIN: Warm and dry. NO trash HEAD: Atraumatic. Normocephalic. EYES: Pupils equal and round. No scleral icterus. No injection or drainage. ENT: No nasal bleeding or discharge. Mucous membranes pink and moist. NECK: Trach in place, site OK CARDIOVASCULAR: Regular rate and rhythm. + murmur, holosystolic RESPIRATORY: No accessory muscle use. Clear to auscultation. Breath sounds equal bilaterally. GASTROINTESTINAL: Abdomen soft, mildly tender LLQ w/o guarding, rebound, nondistended. Hepatic and splenic margins not palpable. MUSCULOSKELETAL: Extremities without clubbing, cyanosis, + mild edema. No obvious deformities. NEUROLOGICAL: Awake and alert. No obvious cranial nerve deficits. Motor grossly within normal limits. Five out of 5 muscle strength in the arms and legs. 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
[2018-05-03] MEDS: Ceftazidime/Avibactam Inj 1.25 GM in Sodium Chlor 0.9% Inj 50 ML IV.SIG SCH ×3 (00:09→17:45)
[2018-05-03] MEDS: Enoxaparin Inj 60 MG/0.6 ML Syringe SQ SCH (00:09)
[2018-05-03] MEDS: Morphine Sulfate Oral Liq 10 MG/0.5 ML Syringe SL PRN (03:09)
[2018-05-03] MEDS: Hyoscyamine Liq Drops 0.125 MG/ML 15 ML Bottle SL SCH ×4 (04:28→21:39)
[2018-05-03] MEDS: Levothyroxine 100 MCG Tablet J-TUBE SCH (05:30)
[2018-05-03 06:10] LABS: Hematocrit 26.1 % (35.0-46.0); Hemoglobin 8.8 gm/dL (11.6-15.3); Mean Corpuscular HGB Conc 33.7 % (32.0-36.0); Mean Platelet Volume 9.6 fL (7.0-11.0); Platelet Count 132 th/mm3 (150-450); Red Blood Count 3.03 mil/mm3 (4.00-5.30); Red Cell Distribution Width 16.8 % (11.6-17.2); White Blood Count 5.9 th/mm3 (4.0-11.0)
[2018-05-03 06:34] LABS: Calcium 8.6 mg/dL (8.5-10.1); Carbon Dioxide 26.8 meq/L (21.0-32.0); Potassium 4.9 meq/L (3.5-5.1)
[2018-05-03] MEDS: Pantoprazole Inj 40 MG Vial IV.PUSH SCH ×2 (08:33→21:38)
[2018-05-03] MEDS: Ascorbic Acid 500 MG Tablet J-TUBE SCH ×2 (08:33→21:38)
[2018-05-03] MEDS: buPROPion 75 MG Tablet J-TUBE SCH ×2 (08:34→21:38)
[2018-05-03] MEDS: Lactobacillus Acidophilus/L. Spores Tablet J-TUBE SCH ×3 (08:34→17:46)
--- NOTE | 2018-05-03 14:50 | P.PNIM ---
Subjective Interval history: Patient reports she is feeling okay. No new issues. Has been using Passy-Mahsa valve to talk. Physical Exam Vital signs: Vital Signs 05/02/18 16:00 05/02/18 17:20 05/02/18 20:00 Temperature 98.7 F 97.7 F Pulse Rate 70 63 Respiratory Rate 20 20 Blood Pressure 97/60 L 95/55 L Pulse Oximetry 98 96 97 05/03/18 00:00 05/03/18 04:00 05/03/18 08:00 Temperature 98.1 F 98.2 F 98.2 F Pulse Rate 71 64 72 Respiratory Rate 18 18 18 Blood Pressure 100/49 L 97/53 L 98/62 L Pulse Oximetry 98 99 99 05/03/18 11:20 Temperature Pulse Rate Respiratory Rate Blood Pressure Pulse Oximetry 99 Intake & Output 05/02/18 05/03/18 05/03/18 18:59 06:59 18:59 Intake Total 1410 / 1410 1330 / 1330 Output Total 2200 / 2200 450 / 450 Balance -790 / -790 880 / 880 Weight 59.9 kg Intake: IV 100 / 100 50 / 50 Avycaz Inj 1.25 GM In NS Inj 50 100 / 100 50 / 50 ML @ 25 mls/hr IV.SIG Q8H [facility] Rx#:[id number] Oral 100 / 100 Tube Feeding 660 / 660 880 / 880 Water Bolus Amount 550 / 550 400 / 400 Output: Urine 500 / 500 450 / 450 Gastric Drainage 1700 / 1700 Gastrojejunostomy Tube 1700 / 1700 Other: # Voids 3 1 Date of Last Bowel Movement 05/02/18 05/02/18 # Bowel Movements 1 Narrative: Gen: Elderly female in no acute distress on a T collar with trach Neck: supple. no JVD CV: Regular rate and rhythm.no murmur Resp: Occasional rales and rhonchi, otherwise clear to auscultation. Abd: Soft, nondistended, nontender. Extr: No edema or lesions. Moves all extremities. Results - Labs CBC & Chem 7: 05/03/18 05:40 05/03/18 05:40 Laboratory Results - last 24 hr 05/03/18 05/03/18 05:40 05:40 WBC 5.9 RBC 3.03 L Hgb 8.8 L Hct 26.1 L MCV 86.0 MCH 29.0 MCHC 33.7 RDW 16.8 Plt Count 132 L MPV 9.6 Sodium 135 L Potassium 4.9 Chloride 97 L Carbon Dioxide 26.8 Anion Gap 11 BUN 52 H Creatinine 1.53 H Estimated GFR 33 L Random Glucose 99 Calcium 8.6 Assessment and Plan - Assessment (1) Pneumonia Code(s): J18.9 - Pneumonia, unspecified organism Status: Acute (2) GERD (gastroesophageal reflux disease) Code(s): K21.9 - Gastro-esophageal reflux disease without esophagitis Status: Acute (3) DVT (deep venous thrombosis) Code(s): I82.409 - Acute embolism and thrombosis of unspecified deep veins of unspecified lower extremity Status: Acute (4) Hypothyroidism Code(s): E03.9 - Hypothyroidism, unspecified Status: Chronic (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 Lung mass: 04/29/18: CT of the chest revealed enlarging spiculated nodule in the right upper lobe and interval development of 2 additional right lung nodules as described. -ID following -Repeat sputum culture grew multi resistant Pseudomonas and Acinetobacter -Continue Avycaz. Per ID -Pulmonology following -Duonebs -Continue to monitor saturations; titrate O2 as needed -Continue DVT treatment -Appreciate oncology and pulmonology input regarding lung mass. Agree the patient is not a candidate for biopsy or chemotherapy or radiation at this point. -Plan is to repeat CT in 8 weeks. -Continue rehab efforts. GERD. On tube feeds -Continue tube feedings while NPO -Pantoprazole IV every 12hrs -Content Assistant consulted -Continue vital 1.5 x55ml/hr w/ 2 hr hold for Levothyroxine - pain medication as needed for abdominal pain. Diarrhea: Could be related to tube feeding. Dietitian consulted Weakness/laryngeal cancer Severe protein calorie malnutrition Frail in appearance with BMI 20.5; on tube feeds with laryngeal cancer -continue current feeding regimen -Monitor electrolytes -Continue PT Hypothyroidism -Levothyroxine Depression -Wellbutrin -Escitalopram Recent Pneumonia w/ resistant pseudomonas. Recent Cdiff; stool testing negative -Continue management per ID for pneumonia with Avycaz x2 weeks. -Repeat sputum culture still growing multi resistant Pseudomonas. DVT, anemia. Myelodysplastic disorder -Lovenox 60 mg subcu daily -dose adjusted due to low GFR -Monitor Hgb; Stable today 7.8 -Per EMR, has required multiple transfusions every ~2 weeks. Continue to monitor. Chronic renal insufficiency: Baseline Cr 1 ~02/2018. Has persistently had mild renal injury -Renal functions improved. -Nephrology followed the patient. DVT GI prophylaxis -Teds SCDs -Lovenox -Pantoprazole Discharge Planning: Patient will need placement. Case management consulted to look at SNF. [facility] declined [facility] placement. (4) Hypothyroidism Qualifiers: Hypothyroidism type: unspecified Qualified Code(s): E03.9 - Hypothyroidism, unspecified
--- NOTE | 2018-05-03 15:20 | P.PN ---
Subjective Interval history: Alert and doing well on a T bar 30 % No cough or fever. Trach secretions are thin Physical Exam Vital signs: Vital Signs 05/02/18 16:00 05/02/18 17:20 05/02/18 20:00 Temperature 98.7 F 97.7 F Pulse Rate 70 63 Respiratory Rate 20 20 Blood Pressure 97/60 L 95/55 L Pulse Oximetry 98 96 97 05/03/18 00:00 05/03/18 04:00 05/03/18 08:00 Temperature 98.1 F 98.2 F 98.2 F Pulse Rate 71 64 72 Respiratory Rate 18 18 18 Blood Pressure 100/49 L 97/53 L 98/62 L Pulse Oximetry 98 99 99 05/03/18 11:20 Temperature Pulse Rate Respiratory Rate Blood Pressure Pulse Oximetry 99 Intake & Output 05/02/18 05/03/18 05/03/18 18:59 06:59 18:59 Intake Total 1410 / 1410 1330 / 1330 Output Total 2200 / 2200 450 / 450 Balance -790 / -790 880 / 880 Weight 59.9 kg Intake: IV 100 / 100 50 / 50 Avycaz Inj 1.25 GM In NS Inj 50 100 / 100 50 / 50 ML @ 25 mls/hr IV.SIG Q8H [facility] Rx#:[id number] Oral 100 / 100 Tube Feeding 660 / 660 880 / 880 Water Bolus Amount 550 / 550 400 / 400 Output: Urine 500 / 500 450 / 450 Gastric Drainage 1700 / 1700 Gastrojejunostomy Tube 1700 / 1700 Other: # Voids 3 1 Date of Last Bowel Movement 05/02/18 05/02/18 # Bowel Movements 1 Narrative: Gen: Elderly female in no acute distress on a T collar with trach Neck: supple. no JVD CV: Regular rate and rhythm.no murmur Resp: Occ Rhonchus but Otherwise clear to auscultation. Abd: Soft, nondistended, nontender. Extr: No edema or lesions. Moves all extremities. Results - Labs CBC & Chem 7: 05/03/18 05:40 05/03/18 05:40 Laboratory Results - last 24 hr 05/03/18 05/03/18 05:40 05:40 WBC 5.9 RBC 3.03 L Hgb 8.8 L Hct 26.1 L MCV 86.0 MCH 29.0 MCHC 33.7 RDW 16.8 Plt Count 132 L MPV 9.6 Sodium 135 L Potassium 4.9 Chloride 97 L Carbon Dioxide 26.8 Anion Gap 11 BUN 52 H Creatinine 1.53 H Estimated GFR 33 L Random Glucose 99 Calcium 8.6 Assessment and Plan - Assessment (1) Respiratory failure Code(s): J96.90 - Respiratory failure, unspecified, unspecified whether with hypoxia or hypercapnia Status: Acute (2) Pneumonia Code(s): J18.9 - Pneumonia, unspecified organism Status: Acute (3) Status post trachelectomy Code(s): Z90.710 - Acquired absence of both cervix and uterus Status: Acute (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 Cont T Collar at 28 %. 2. Cont Duonebs qid. 3. PM valve to talk daytime upto 8 hrs 4. Cont Levsin .125 mg qid prn. 5. Tube feeds at 55 CC, jevity 6. Robinul 0.4 mg S/Q BID PRN 7. F/U CT chest in 8 weeks . 8. Chest Xray in 1 week
[2018-05-04] MEDS: Enoxaparin Inj 60 MG/0.6 ML Syringe SQ SCH ×2 (00:01→23:40)
[2018-05-04] MEDS: Ceftazidime/Avibactam Inj 1.25 GM in Sodium Chlor 0.9% Inj 50 ML IV.SIG SCH ×4 (00:01→23:40)
[2018-05-04] MEDS: Hyoscyamine Liq Drops 0.125 MG/ML 15 ML Bottle SL SCH ×5 (05:13→23:41)
[2018-05-04] MEDS: Levothyroxine 100 MCG Tablet J-TUBE SCH (05:15)
[2018-05-04] MEDS: Ascorbic Acid 500 MG Tablet J-TUBE SCH ×2 (08:52→20:48)
[2018-05-04] MEDS: buPROPion 75 MG Tablet J-TUBE SCH ×2 (08:53→20:48)
[2018-05-04] MEDS: Lactobacillus Acidophilus/L. Spores Tablet J-TUBE SCH ×3 (08:57→18:02)
[2018-05-04] MEDS: Pantoprazole Inj 40 MG Vial IV.PUSH SCH ×2 (08:57→20:47)
--- NOTE | 2018-05-04 15:10 | P.PNIM ---
Subjective Interval history: Have more secretions today requiring suctioning. RINA RN. No diarrhea today Patient able to talk through valve, states she is doing OK. Physical Exam Vital signs: Vital Signs 05/03/18 16:00 05/03/18 20:00 05/03/18 21:33 Temperature 98 F 98.3 F Pulse Rate 72 61 Respiratory Rate 18 18 Blood Pressure 92/67 L 82/41 L Pulse Oximetry 99 100 100 05/03/18 23:20 05/04/18 04:31 05/04/18 05:23 Temperature Pulse Rate 56 L 64 Respiratory Rate Blood Pressure 85/43 L 105/52 L Pulse Oximetry 100 05/04/18 07:56 05/04/18 07:57 Temperature 98.3 F Pulse Rate 58 L Respiratory Rate 18 18 Blood Pressure 90/48 L Pulse Oximetry 99 Intake & Output 05/03/18 05/04/18 05/04/18 18:59 06:59 18:59 Intake Total 740 / 740 1542 / 1542 Output Total 2200 / 2200 1450 / 1450 Balance -1460 / -1460 92 / 92 Weight 58.7 kg Intake: IV 50 / 50 100 / 100 Avycaz Inj 1.25 GM In NS Inj 50 50 / 50 100 / 100 ML @ 25 mls/hr IV.SIG Q8H [facility] Rx#:[id number] Oral 0 / 0 Tube Feeding 440 / 440 642 / 642 Tube Irrigant 0 / 0 800 / 800 Water Bolus Amount 200 / 200 Other 50 / 50 Output: Urine 500 / 500 Gastric Drainage 1700 / 1700 1450 / 1450 Gastrojejunostomy Tube 1700 / 1700 1450 / 1450 Jejunostomy Tube 0 / 0 Other: # Voids 4 2 # Incontinent Voids 1 Date of Last Bowel Movement 05/03/18 05/03/18 # Bowel Movements 1 0 # Incontinent Bowel Movements 1 Narrative: Gen: Elderly female in no acute distress on a T collar with trach Neck: supple. no JVD CV: Regular rate and rhythm.no murmur Resp: Occasional rales and rhonchi, otherwise clear to auscultation. Abd: Soft, nondistended, nontender. Extr: No edema or lesions. Moves all extremities. 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 Lung mass: 04/29/18: CT of the chest revealed enlarging spiculated nodule in the right upper lobe and interval development of 2 additional right lung nodules as described. -ID following -Repeat sputum culture grew multi resistant Pseudomonas and Acinetobacter -Continue Avycaz. Per ID -Pulmonology following -Duonebs -Continue to monitor saturations; titrate O2 as needed -Continue DVT treatment -Appreciate oncology and pulmonology input regarding lung mass. Agree the patient is not a candidate for biopsy or chemotherapy or radiation at this point. -Plan is to repeat CT in 8 weeks. Then her son will consider whether or not to proceed with biopsy. -Continue rehab efforts. - Continue Robinul and Levsin for secretions. - Suction PRN. GERD. On tube feeds -Continue tube feedings while NPO -Pantoprazole IV every 12hrs -Skip Pitman consulted -Continue vital 1.5 x55ml/hr w/ 2 hr hold for Levothyroxine - pain medication as needed for abdominal pain. Diarrhea: - Seems to have resolved. If reoccurs with abdominal pain, will consider CT abd. Weakness/history of laryngeal cancer and myelodysplasia Severe protein calorie malnutrition Frail in appearance with BMI 20.5; on tube feeds with laryngeal cancer -continue current feeding regimen -Monitor electrolytes -Continue PT Hypothyroidism -Levothyroxine Depression -Wellbutrin -Escitalopram Recent Pneumonia w/ resistant pseudomonas. Recent Cdiff; stool testing negative -Continue management per ID for pneumonia with Avycaz x2 weeks. -Repeat sputum culture still growing multi resistant Pseudomonas. DVT, anemia. Myelodysplastic disorder -Lovenox 60 mg subcu daily -dose adjusted due to low GFR -Monitor Hgb; Stable today 7.8 -Per EMR, has required multiple transfusions every ~2 weeks. Continue to monitor. Chronic renal insufficiency: Baseline Cr 1 ~1 02/2018. Has persistently had mild renal injury -Renal functions improved. -Nephrology followed the patient. DVT GI prophylaxis -Teds SCDs -Lovenox -Pantoprazole Discharge Planning: Patient will need placement. Case management consulted to look for SNF. [facility] declined [facility] placement. Patient likes to defer decisions to her son. (4) Hypothyroidism Qualifiers: Hypothyroidism type: unspecified Qualified Code(s): E03.9 - Hypothyroidism, unspecified
--- NOTE | 2018-05-04 15:40 | P.PN ---
Subjective Interval history: Alert and doing OK. Needs suctioning 3 to 4 hrs. No fever. Son was here. Physical Exam Vital signs: Vital Signs 05/03/18 16:00 05/03/18 20:00 05/03/18 21:33 Temperature 98 F 98.3 F Pulse Rate 72 61 Respiratory Rate 18 18 Blood Pressure 92/67 L 82/41 L Pulse Oximetry 99 100 100 05/03/18 23:20 05/04/18 04:31 05/04/18 05:23 Temperature Pulse Rate 56 L 64 Respiratory Rate Blood Pressure 85/43 L 105/52 L Pulse Oximetry 100 05/04/18 07:56 05/04/18 07:57 Temperature 98.3 F Pulse Rate 58 L Respiratory Rate 18 18 Blood Pressure 90/48 L Pulse Oximetry 99 Intake & Output 05/03/18 05/04/18 05/04/18 18:59 06:59 18:59 Intake Total 740 / 740 1542 / 1542 Output Total 2200 / 2200 1450 / 1450 Balance -1460 / -1460 92 / 92 Weight 58.7 kg Intake: IV 50 / 50 100 / 100 Avycaz Inj 1.25 GM In NS Inj 50 50 / 50 100 / 100 ML @ 25 mls/hr IV.SIG Q8H ANN Rx#:[id number] Oral 0 / 0 Tube Feeding 440 / 440 642 / 642 Tube Irrigant 0 / 0 800 / 800 Water Bolus Amount 200 / 200 Other 50 / 50 Output: Urine 500 / 500 Gastric Drainage 1700 / 1700 1450 / 1450 Gastrojejunostomy Tube 1700 / 1700 1450 / 1450 Jejunostomy Tube 0 / 0 Other: # Voids 4 2 # Incontinent Voids 1 Date of Last Bowel Movement 05/03/18 05/03/18 # Bowel Movements 1 0 # Incontinent Bowel Movements 1 Narrative: Gen: Elderly female in no acute distress on a T collar with trach Neck: supple. no JVD CV: Regular rate and rhythm.no murmur Resp: Occasional basal crackles, otherwise clear to auscultation. Abd: Soft, nondistended, nontender. Extr: No edema or lesions. Moves all extremities. 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 Cont T Collar at 28 %. 2. Cont nebs with albuterol qid. PRN 3. PM valve to talk daytime upto 8 hrs 4. Cont Levsin .125 mg qid prn. 5. Tube feeds at 55 CC. 6. Robinul 0.4 mg S/Q BID PRN 7. F/U CT chest in 8 weeks .
[2018-05-04] MEDS: Morphine Sulfate Oral Liq 10 MG/0.5 ML Syringe SL PRN (18:03)
[2018-05-04] MEDS: Temazepam 15 MG Capsule J-TUBE PRN (20:48)
[2018-05-05] MEDS: Hyoscyamine Liq Drops 0.125 MG/ML 15 ML Bottle SL SCH ×4 (04:34→21:06)
[2018-05-05] MEDS: Levothyroxine 100 MCG Tablet J-TUBE SCH (06:01)
[2018-05-05 07:23] LABS: Hematocrit 25.6 % (35.0-46.0); Hemoglobin 8.9 gm/dL (11.6-15.3); Mean Corpuscular HGB Conc 34.5 % (32.0-36.0); Mean Corpuscular Hemoglobin 29.2 pg (27.0-34.0); Mean Corpuscular Volume 84.7 fL (80.0-100.0); Platelet Count 123 th/mm3 (150-450); Red Blood Count 3.03 mil/mm3 (4.00-5.30); Red Cell Distribution Width 16.6 % (11.6-17.2); White Blood Count 5.5 th/mm3 (4.0-11.0)
[2018-05-05 07:43] LABS: Calcium 8.7 mg/dL (8.5-10.1); Carbon Dioxide 24.7 meq/L (21.0-32.0); Potassium 4.7 meq/L (3.5-5.1)
[2018-05-05] MEDS: Ceftazidime/Avibactam Inj 1.25 GM in Sodium Chlor 0.9% Inj 50 ML IV.SIG SCH (09:00)
[2018-05-05] MEDS: Ascorbic Acid 500 MG Tablet J-TUBE SCH ×2 (09:00→20:39)
[2018-05-05] MEDS: Pantoprazole Inj 40 MG Vial IV.PUSH SCH ×2 (09:00→20:39)
[2018-05-05] MEDS: buPROPion 75 MG Tablet J-TUBE SCH ×2 (09:00→20:39)
[2018-05-05] MEDS: Lactobacillus Acidophilus/L. Spores Tablet J-TUBE SCH ×3 (09:00→17:51)
[2018-05-05] MEDS: Sod Chloride 0.9% Inj 1,000 ML IV.CONT SCH ×2 (11:08→17:52)
[2018-05-05] MEDS: Simethicone 125 MG Chew Tablet J-TUBE PRN (11:10)
--- NOTE | 2018-05-05 12:36 | P.PNIM ---
Subjective Interval history: Patient in no acute distress. She states that she feels weak otherwise does not have any other complaints. Physical Exam Vital signs: Vital Signs 05/04/18 16:00 05/04/18 20:00 05/04/18 23:57 Temperature 98.7 F 98.2 F 97.6 F Pulse Rate 76 66 Respiratory Rate 16 16 Blood Pressure 110/62 94/49 L 97/46 L Pulse Oximetry 96 05/05/18 04:00 05/05/18 04:46 05/05/18 11:19 Temperature 98.1 F Pulse Rate 62 Respiratory Rate 16 Blood Pressure 105/49 L Pulse Oximetry 99 96 96 Intake & Output 05/04/18 05/05/18 05/05/18 18:59 06:59 18:59 Intake Total 1800 / 1800 50 / 50 50 / 50 Output Total 1275 / 1275 1100 / 1100 Balance 525 / 525 -1050 / -1050 50 / 50 Weight 58.3 kg Intake: IV 100 / 100 50 / 50 50 / 50 Avycaz Inj 1.25 GM In NS Inj 50 100 / 100 50 / 50 50 / 50 ML @ 25 mls/hr IV.SIG Q8H [facility] Rx#:[id number] Oral 0 / 0 Tube Feeding 650 / 650 Tube Irrigant 800 / 800 Water Bolus Amount 200 / 200 Other 50 / 50 Output: Urine 475 / 475 Gastric Drainage 800 / 800 1100 / 1100 Gastrojejunostomy Tube 800 / 800 1100 / 1100 Jejunostomy Tube 0 / 0 Other: # Voids 4 2 # Incontinent Voids 1 2 Date of Last Bowel Movement 05/03/18 05/03/18 # Bowel Movements 0 0 # Incontinent Bowel Movements 1 Narrative: General patient in no acute distress HEENT extraocular movements are intact, tracheostomy in place, minimal secretions coming from tracheostomy. Cardiovascular S1-S2 audible Respiratory mild rhonchi auscultated bilaterally. Abdomen soft, nontender, nondistended, G-tube in place. Extremities no edema 2+ distal pulses in bilateral upper and lower extremities Neuro patient was all 4 extremities sensation is intact bilaterally Results - Labs CBC & Chem 7: 05/05/18 06:21 05/05/18 06:21 Laboratory Results - last 24 hr 05/05/18 05/05/18 06:21 06:21 WBC 5.5 RBC 3.03 L Hgb 8.9 L Hct 25.6 L MCV 84.7 MCH 29.2 MCHC 34.5 RDW 16.6 Plt Count 123 L MPV 10.0 Sodium 130 L Potassium 4.7 Chloride 93 L Carbon Dioxide 24.7 Anion Gap 12 BUN 68 H Creatinine 1.86 H Estimated GFR 27 L Random Glucose 107 H Calcium 8.7 Assessment and Plan - Assessment (1) Pneumonia Code(s): J18.9 - Pneumonia, unspecified organism Status: Acute (2) GERD (gastroesophageal reflux disease) Code(s): K21.9 - Gastro-esophageal reflux disease without esophagitis Status: Acute (3) DVT (deep venous thrombosis) Code(s): I82.409 - Acute embolism and thrombosis of unspecified deep veins of unspecified lower extremity Status: Acute (4) Hypothyroidism Code(s): E03.9 - Hypothyroidism, unspecified Status: Chronic (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 Acute kidney injury likely prerenal. The patient is tolerating her feeds through her G-tube. On physical examination it appears that the patient is dry. Creatinine and BUN are elevated and continue to up trend. She will be started on IV fluids and continued with G-tube feeds. We will repeat a basic metabolic panel tomorrow a.m. 2. Multidrug-resistant pseudomonas pneumonia Continue IV antibiotics as per ID recommendations for a total of 14 days. Medications have been adjusted as the patient's is currently in acute kidney injury. 3. COPD 4. Solitary lung nodules The patient is being followed by heme oncology. As per the heme oncologist recent note on 05/02/2018 discussion was held with the patient's son who is a physician's assistant secretary. He does not want the patient to undergo lung biopsy at this time. We will continue to monitor the lung nodules. I will continue to follow up with recommendations from heme oncology. Continue breathing treatments as needed for COPD. 5. Dysphagia Continue feeds through the PEG tube. Lovenox for DVT prophylaxis. (4) Hypothyroidism Qualifiers: Hypothyroidism type: unspecified Qualified Code(s): E03.9 - Hypothyroidism, unspecified
[2018-05-05] MEDS: Ceftazidime/Avibactam Inj 0.94 GM in Sodium Chlor 0.9% Inj 50 ML IV.SIG SCH (20:38)
[2018-05-06] MEDS: Enoxaparin Inj 60 MG/0.6 ML Syringe SQ SCH (00:20)
[2018-05-06] MEDS: Sod Chloride 0.9% Inj 1,000 ML IV.CONT SCH ×4 (02:30→17:37)
[2018-05-06] MEDS: Morphine Sulfate Oral Liq 10 MG/0.5 ML Syringe SL PRN (03:28)
[2018-05-06] MEDS: Hyoscyamine Liq Drops 0.125 MG/ML 15 ML Bottle SL SCH ×4 (03:47→22:09)
[2018-05-06] MEDS: Levothyroxine 100 MCG Tablet J-TUBE SCH (06:00)
[2018-05-06 07:42] LABS: Calcium 7.9 mg/dL (8.5-10.1); Carbon Dioxide 18.8 meq/L (21.0-32.0); Magnesium 2.4 mg/dL (1.5-2.5); Potassium 4.9 meq/L (3.5-5.1)
[2018-05-06] MEDS: Ceftazidime/Avibactam Inj 0.94 GM in Sodium Chlor 0.9% Inj 50 ML IV.SIG SCH ×2 (08:00→22:04)
[2018-05-06] MEDS: Lactobacillus Acidophilus/L. Spores Tablet J-TUBE SCH ×3 (09:00→17:06)
[2018-05-06] MEDS: Ascorbic Acid 500 MG Tablet J-TUBE SCH ×2 (09:00→22:06)
[2018-05-06] MEDS: buPROPion 75 MG Tablet J-TUBE SCH ×2 (09:00→21:00)
[2018-05-06] MEDS: Pantoprazole Inj 40 MG Vial IV.PUSH SCH ×2 (09:00→22:08)
[2018-05-06] MEDS: Simethicone 125 MG Chew Tablet J-TUBE PRN (10:23)
--- NOTE | 2018-05-06 11:54 | P.PNNP ---
Subjective Interval history: Reconsulted because creatinine has increased to 1.8. She has had prolonged hospitalization. Has chronic bronchial colonization with Pseudomonas, and is being treated with Avycaz for Acinetobacter pneumonia. She has generalized muscle wasting. Has a PEG tube. On IVF. Creatinine has remained same in 2 days. Apparently has diarrhea. Physical Exam Vital signs: Vital Signs 05/05/18 12:00 05/05/18 16:00 05/05/18 20:00 Temperature 98.4 F 98.2 F 98.2 F Pulse Rate 72 80 63 Respiratory Rate 16 18 18 Blood Pressure 100/52 L 108/50 L 95/44 L Pulse Oximetry 97 96 99 05/05/18 20:14 05/06/18 00:00 05/06/18 01:31 Temperature 98.3 F Pulse Rate 82 Respiratory Rate 18 Blood Pressure 96/52 L Pulse Oximetry 96 98 96 05/06/18 04:00 05/06/18 08:00 Temperature 97.8 F 97.6 F Pulse Rate 78 78 Respiratory Rate 18 20 Blood Pressure 106/52 L 100/59 L Pulse Oximetry 96 97 Intake & Output 05/05/18 05/06/18 05/06/18 18:59 06:59 18:59 Intake Total 2310 / 2310 2330 / 2330 1050 / 1050 Output Total 1350 / 1350 150 / 150 Balance 960 / 960 2180 / 2180 1050 / 1050 Weight 65.5 kg Intake: IV 1050 / 1050 1050 / 1050 1050 / 1050 NS Inj 1,000 ML @ 125 mls/hr IV 1000 / 1000 1000 / 1000 1000 / 1000 .CONT .Q8H ANN Rx#:[id number] Avycaz Inj 0.94 GM In NS Inj 50 50 / 50 50 / 50 50 / 50 ML @ 25 mls/hr IV.SIG Q12H ANN Rx#:[id number] Tube Feeding 660 / 660 880 / 880 Water Bolus Amount 600 / 600 400 / 400 Output: Urine 350 / 350 150 / 150 Gastric Drainage 1000 / 1000 Gastrojejunostomy Tube 1000 / 1000 Other: # Voids 2 1 # Incontinent Voids 0 1 # Urine Diapers 2 Date of Last Bowel Movement 05/03/18 05/05/18 Narrative: General patient in no acute distress, Very frail. HEENT extraocular movements are intact, tracheostomy in place, minimal secretions coming from tracheostomy. Cardiovascular S1-S2 audible Respiratory mild rhonchi auscultated bilaterally. Abdomen soft, nontender, nondistended, G-tube in place. Extremities no edema Able to move all extremities. Assessment and Plan - Assessment (1) BETSEY (acute kidney injury) Code(s): N17.9 - Acute kidney failure, unspecified Status: Acute Plan: Possibility of allergic interstitial nephritis will have to be considered. On , she had eosinophilia. She is on Avycaz. Repeat UA. Reduce IVF. Consider changing the antibiotic, especially if renal function continues to get worse. Prognosis is guarded. Avoid nephrotoxic agents. (2) Pneumonia Code(s): J18.9 - Pneumonia, unspecified organism Status: Acute Plan: Management per medical team, she is on Avycaz. - Plan ,
--- NOTE | 2018-05-06 13:05 | P.PN ---
Subjective Interval history: and talking well with PM valve. On Multiple antibiotics For Pseudomonas MDRO. Now has BETSEY Physical Exam Vital signs: Vital Signs 05/05/18 16:00 05/05/18 20:00 05/05/18 20:14 Temperature 98.2 F 98.2 F Pulse Rate 80 63 Respiratory Rate 18 18 Blood Pressure 108/50 L 95/44 L Pulse Oximetry 96 99 96 05/06/18 00:00 05/06/18 01:31 05/06/18 04:00 Temperature 98.3 F 97.8 F Pulse Rate 82 78 Respiratory Rate 18 18 Blood Pressure 96/52 L 106/52 L Pulse Oximetry 98 96 96 05/06/18 08:00 Temperature 97.6 F Pulse Rate 78 Respiratory Rate 20 Blood Pressure 100/59 L Pulse Oximetry 97 Intake & Output 05/05/18 05/06/18 05/06/18 18:59 06:59 18:59 Intake Total 2310 / 2310 2330 / 2330 1050 / 1050 Output Total 1350 / 1350 150 / 150 Balance 960 / 960 2180 / 2180 1050 / 1050 Weight 65.5 kg Intake: IV 1050 / 1050 1050 / 1050 1050 / 1050 NS Inj 1,000 ML @ 125 mls/hr IV 1000 / 1000 1000 / 1000 1000 / 1000 .CONT .Q8H ANN Rx#:[id number] Avycaz Inj 0.94 GM In NS Inj 50 50 / 50 50 / 50 50 / 50 ML @ 25 mls/hr IV.SIG Q12H [facility] Rx#:[id number] Tube Feeding 660 / 660 880 / 880 Water Bolus Amount 600 / 600 400 / 400 Output: Urine 350 / 350 150 / 150 Gastric Drainage 1000 / 1000 Gastrojejunostomy Tube 1000 / 1000 Other: # Voids 2 1 # Incontinent Voids 0 1 # Urine Diapers 2 Date of Last Bowel Movement 05/03/18 05/05/18 Narrative: General patient in no acute distress,Thin and pale. HEENT DARY. Neck: tracheostomy in place, minimal secretions coming from tracheostomy.Bloody today Cardiovascular S1-S2 audible Respiratory Occ Wheeze bilaterally. Abdomen soft, nontender, nondistended, G-tube in place. Extremities no edema Able to move all extremities. Results - Labs CBC & Chem 7: 05/05/18 06:21 05/06/18 06:07 Laboratory Results - last 24 hr 05/06/18 06:07 Sodium 134 L Potassium 4.9 Chloride 102 D Carbon Dioxide 18.8 L Anion Gap 13 BUN 64 H Creatinine 1.87 H Estimated GFR 26 L Random Glucose 110 H Calcium 7.9 L D Magnesium 2.4 Assessment and Plan - Assessment (1) Respiratory failure Code(s): J96.90 - Respiratory failure, unspecified, unspecified whether with hypoxia or hypercapnia Status: Acute (2) Pneumonia Code(s): J18.9 - Pneumonia, unspecified organism Status: Acute (3) Status post trachelectomy Code(s): Z90.710 - Acquired absence of both cervix and uterus Status: Acute (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 Cont T Collar at 30 %. 2. Cont nebs with albuterol qid. PRN 3. PM valve to talk daytime upto 12 hrs 4. Cont Levsin .125 mg qid prn. 5. Tube feeds at 55 CC. 6. Robinul 0.4 mg S/Q BID PRN 7. Antibiotics per ID 8. watch renal profile
[2018-05-06 18:01] LABS: Bacteria,Urine Rare /hpf; Bilirubin,Urine Negative (Negative); Clarity,Urine Cloudy (Clear); Color,Urine Yellow (Yellw/Straw); Glucose,Urine (UA) Negative (Negative); Hyaline Casts,Urine 1 /lpf (0-3); Leukocyte Esterase,Urine Moderate (Negative); Mucus,Urine Few /lpf (Occasional); Nitrite,Urine Negative (Negative); Specific Gravity,Urine 1.011 (1.002-1.035)
--- NOTE | 2018-05-06 18:52 | P.PNIM ---
Subjective Interval history: Patient does not have any significant complaints this morning. Physical Exam Vital signs: Vital Signs 05/05/18 20:00 05/05/18 20:14 05/06/18 00:00 Temperature 98.2 F 98.3 F Pulse Rate 63 82 Respiratory Rate 18 18 Blood Pressure 95/44 L 96/52 L Pulse Oximetry 99 96 98 05/06/18 01:31 05/06/18 04:00 05/06/18 08:00 Temperature 97.8 F 97.6 F Pulse Rate 78 78 Respiratory Rate 18 20 Blood Pressure 106/52 L 100/59 L Pulse Oximetry 96 96 98 05/06/18 11:00 05/06/18 12:00 05/06/18 16:00 Temperature 98.3 F 98.9 F Pulse Rate 80 70 Respiratory Rate 20 18 16 Blood Pressure 94/48 L 95/50 L Pulse Oximetry 97 96 05/06/18 18:15 Temperature Pulse Rate Respiratory Rate Blood Pressure Pulse Oximetry 96 Intake & Output 05/05/18 05/06/18 05/06/18 18:59 06:59 18:59 Intake Total 2310 / 2310 2330 / 2330 3210 / 3210 Output Total 1350 / 1350 150 / 150 2650 / 2650 Balance 960 / 960 2180 / 2180 560 / 560 Weight 65.5 kg 55.1 kg Intake: IV 1050 / 1050 1050 / 1050 2050 / 2050 NS Inj 1,000 ML @ 75 mls/hr IV. 1000 / 1000 1000 / 1000 2000 / 2000 CONT .[id number] ANN Rx#:[id number] Avycaz Inj 0.94 GM In NS Inj 50 50 / 50 50 / 50 50 / 50 ML @ 25 mls/hr IV.SIG Q12H [facility] Rx#:[id number] Tube Feeding 660 / 660 880 / 880 660 / 660 Water Bolus Amount 600 / 600 400 / 400 500 / 500 Output: Urine 350 / 350 150 / 150 450 / 450 Stool 400 / 400 Gastric Drainage 1000 / 1000 1800 / 1800 Gastrojejunostomy Tube 1000 / 1000 1800 / 1800 Other: # Voids 2 1 3 # Incontinent Voids 0 1 0 # Urine Diapers 2 Date of Last Bowel Movement 05/03/18 05/06/18 # Bowel Movements 2 Narrative: General patient in no acute distress HEENT extraocular movements are intact, tracheostomy in place with minimal secretions. Cardiovascular S1-S2 audible Respiratory mild coarseness bilaterally likely from secretions. Abdomen soft, nontender, nondistended, normal bowel sounds, PEG tube in place no signs of infection of the PEG tube site. Extremities no edema 2+ distal pulses in bilateral upper and lower extremities Neuro cranial nerves II through XII intact Results - Labs CBC & Chem 7: 05/05/18 06:21 05/06/18 06:07 Laboratory Results - last 24 hr 05/06/18 05/06/18 06:07 17:20 Sodium 134 L Potassium 4.9 Chloride 102 D Carbon Dioxide 18.8 L Anion Gap 13 BUN 64 H Creatinine 1.87 H Estimated GFR 26 L Random Glucose 110 H Calcium 7.9 L D Magnesium 2.4 Urine Color Yellow Urine Clarity Cloudy H Urine pH 5.0 Ur Specific [place] 1.011 Urine Protein 30 H Urine Glucose (UA) Negative Urine Ketones Trace H Urine Occult Blood Negative Urine Nitrate Negative Urine Bilirubin Negative Urine Urobilinogen Less than 2 Ur Leukocyte Esterase Moderate H Urine RBC 1 Urine WBC 58 H Urine WBC Clumps Few H Urine Bacteria Rare H Hyaline Casts 1 Urine Mucus Few H Urine Yeast Occasional H Ur Microscopic Review Not Reportable Assessment and Plan - Assessment (1) Pneumonia Code(s): J18.9 - Pneumonia, unspecified organism Status: Acute (2) GERD (gastroesophageal reflux disease) Code(s): K21.9 - Gastro-esophageal reflux disease without esophagitis Status: Acute (3) DVT (deep venous thrombosis) Code(s): I82.409 - Acute embolism and thrombosis of unspecified deep veins of unspecified lower extremity Status: Acute (4) Hypothyroidism Code(s): E03.9 - Hypothyroidism, unspecified Status: Chronic (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 Acute kidney injury possibly acute gestational nephritis. The patient is tolerating her feeds through her G-tube. Serum creatinine remained the same after initiation of IV fluids from yesterday to today. She was evaluated by nephrology today who recommends an ultrasound of the kidneys. All of her medications will be renally adjusted. We will continue to follow recommendations from nephrology. Repeat basic metabolic panel has been ordered for tomorrow. 2. Multidrug-resistant pseudomonas pneumonia Continue IV antibiotics as per ID recommendations for a total of 14 days. Medications have been adjusted as the patient's is currently in acute kidney injury. Pulmonary is following the patient. 3. COPD 4. Solitary lung nodules The patient is being followed by heme oncology. As per the heme oncologist recent note on 05/02/2018 discussion was held with the patient's son who is a physician's timber management assistant. He does not want the patient to undergo lung biopsy at this time. We will continue to monitor the lung nodules. I will continue to follow up with recommendations from heme oncology. Continue breathing treatments as needed for COPD. The patient currently appears comfortable without any significant complaints. 5. Dysphagia Continue feeds through the PEG tube. Lovenox for DVT prophylaxis, renally adjusted. (4) Hypothyroidism Qualifiers: Hypothyroidism type: unspecified Qualified Code(s): E03.9 - Hypothyroidism, unspecified
--- NOTE | 2018-05-06 20:58 | US ---
EXAM DATE: 05/06/2018 7:42 PM EDT AGE/SEX: 73 years / Female INDICATIONS: Increased lab values. CLINICAL DATA: This is the patient's subsequent encounter. Patient reports that signs and symptoms h ave been present for 1 day and indicates a pain score of 1/10. MEDICAL/SURGICAL HISTORY: Gastroesophageal reflux disease. Hypothyroidism. Carcinoma, skin ca ncer. Barretts esophagus. Squamous cell carcinoma of the larynx. Squamous cell carcinoma of supraglo ttis. Cholecystectomy. Tonsillectomy. Colonoscopy. Esophageal dilation. Esophagogastroduodenoscopy. Hernia repair. Adenoidectomy. COMPARISON: [facility], US KIDNEY/RENAL/BLADDER, 04/23/2018. . MEASUREMENTS: Right Kidney:__9.8 x 4.2 x 4.0 cm Left Kidney:__10.1 x 4.6 x 4.8 cm FINDINGS: Right Kidney: Increased echotexture. No mass or hydronephrosis. Left Kidney: Increased echotexture. No mass or hydronephrosis. Bladder: Dependent debris within the bladder. CONCLUSION: 1. Increased renal echogenicity characteristic of medical renal disease. Small cyst right kidney. De pendent debris in the bladder. Electronically signed by: Alireza Leger MD 05/06/2018 8:57 PM EDT
[2018-05-07] MEDS: Enoxaparin Inj 60 MG/0.6 ML Syringe SQ SCH (00:28)
[2018-05-07] MEDS: Hyoscyamine Liq Drops 0.125 MG/ML 15 ML Bottle SL SCH ×4 (05:03→21:01)
[2018-05-07] MEDS: Levothyroxine 100 MCG Tablet J-TUBE SCH (05:04)
[2018-05-07] MEDS: Sod Chloride 0.9% Inj 1,000 ML IV.CONT SCH ×3 (05:06→21:02)
[2018-05-07 05:26] LABS: Hematocrit 21.6 % (35.0-46.0); Hemoglobin 7.2 gm/dL (11.6-15.3); Mean Corpuscular HGB Conc 33.3 % (32.0-36.0); Mean Corpuscular Hemoglobin 28.9 pg (27.0-34.0); Mean Corpuscular Volume 86.7 fL (80.0-100.0); Mean Platelet Volume 9.9 fL (7.0-11.0); Platelet Count 107 th/mm3 (150-450); Red Blood Count 2.49 mil/mm3 (4.00-5.30); Red Cell Distribution Width 16.5 % (11.6-17.2); White Blood Count 3.8 th/mm3 (4.0-11.0)
[2018-05-07 05:55] LABS: Calcium 8.1 mg/dL (8.5-10.1); Potassium 4.8 meq/L (3.5-5.1)
[2018-05-07 07:58] LABS: Eosinophils 5 % (0-4); Lymphocytes 22 % (9-44); Metamyelocytes 1 % (0-1); Monocytes 4 % (0-8); Myelocytes 7 % (0-0)
[2018-05-07 08:00] LABS: Ovalocytes 1+
[2018-05-07] MEDS: buPROPion 75 MG Tablet J-TUBE SCH ×2 (08:06→20:58)
[2018-05-07] MEDS: Pantoprazole Inj 40 MG Vial IV.PUSH SCH (08:06)
[2018-05-07] MEDS: Ceftazidime/Avibactam Inj 0.94 GM in Sodium Chlor 0.9% Inj 50 ML IV.SIG SCH ×2 (08:06→20:55)
[2018-05-07] MEDS: Ascorbic Acid 500 MG Tablet J-TUBE SCH ×2 (08:07→20:58)
[2018-05-07] MEDS: Lactobacillus Acidophilus/L. Spores Tablet J-TUBE SCH ×3 (08:08→17:26)
--- NOTE | 2018-05-07 09:07 | XR ---
EXAM DATE: 05/07/2018 9:03 AM EDT AGE/SEX: 73 years / Female INDICATIONS: Pneumonia. CLINICAL DATA: This is the patient's subsequent encounter. Patient reports that signs and symptoms h ave been present for 2 weeks and indicates a pain score of 0/10. MEDICAL/SURGICAL HISTORY: . Carcinoma, squamous cell. Carcinoma, glottic. Rendon's esophagus. None. COMPARISON: [facility] – [place], CHEST 1V SINGLE AP, 04/23/2018. . FINDINGS: A tracheostomy tube has its tip 3 cm above the lashay in good position. The heart remains mildly prom inent. Scattered infiltrates are noted bilaterally and are slightly worse on the left than the right suggesting pneumonia or asymmetric pulmonary edema. Clinical correlation is recommended. Degenerative changes are noted throughout the thoracic spine. CONCLUSION: 1. Scattered bilateral infiltrates which are slightly worse on the left than the right suggesting pn eumonia or asymmetric pulmonary edema. Clinical correlation is recommended. 2. Mild cardiomegaly. Electronically signed by: Mehdi Villarreal MD 05/07/2018 9:06 AM EDT
--- NOTE | 2018-05-07 09:11 | P.PN ---
Subjective Interval history: awake and alert, i teractive states voiding spontaenously denies any diarrhea, d/w nurse- no diarrhea no pain complains lots of secretions from trach G tube port site- draining bilious Physical Exam Vital signs: Vital Signs 05/06/18 11:00 05/06/18 12:00 05/06/18 16:00 Temperature 98.3 F 98.9 F Pulse Rate 80 70 Respiratory Rate 20 18 16 Blood Pressure 94/48 L 95/50 L Pulse Oximetry 97 96 05/06/18 18:15 05/06/18 20:00 05/07/18 00:00 Temperature 97.6 F Pulse Rate 64 Respiratory Rate 22 Blood Pressure 96/46 L Pulse Oximetry 96 96 97 05/07/18 01:25 05/07/18 04:00 Temperature 98.0 F Pulse Rate 62 Respiratory Rate 18 18 Blood Pressure 103/50 L Pulse Oximetry 98 Intake & Output 05/06/18 05/07/18 05/07/18 18:59 06:59 18:59 Intake Total 3210 / 3210 2170 / 2170 Output Total 2650 / 2650 320 / 320 Balance 560 / 560 1850 / 1850 Weight 55.1 kg 55.5 kg Intake: IV 0 / 0 1050 / 1050 NS Inj 1,000 ML @ 75 mls/hr IV. 1999 / 1999 1000 / 1000 CONT .[id number] ANN Rx#:[id number] Avycaz Inj 0.94 GM In NS Inj 50 50 / 50 50 / 50 ML @ 25 mls/hr IV.SIG Q12H ANN Rx#:[id number] Tube Feeding 660 / 660 600 / 600 Tube Irrigant 120 / 120 Water Bolus Amount 500 / 500 400 / 400 Output: Urine 450 / 450 Stool 400 / 400 Gastric Drainage 1800 / 1800 320 / 320 Gastrojejunostomy Tube 1800 / 1800 320 / 320 Other: # Voids 3 # Incontinent Voids 0 2 Date of Last Bowel Movement 05/06/18 05/05/18 # Bowel Movements 2 Narrative: General patient in no acute distress awake and alert, interactive HEENT extraocular movements are intact, tracheostomy in place regular rhythm no rales, no wheezes ion exam this am Abdomen soft, nontender, nondistended, normal bowel sounds, G-J tube in place no signs of infection site. Extremities no edema 2+ distal pulses in bilateral upper and lower extremities moves all extremities spontaneously Neuro cranial nerves II through XII intact Results - Labs CBC & Chem 7: 05/07/18 04:45 05/07/18 04:45 Laboratory Results - last 24 hr 05/06/18 05/07/18 05/07/18 17:20 04:45 04:45 WBC 3.8 L RBC 2.49 L Hgb 7.2 L Hct 21.6 L MCV 86.7 MCH 28.9 MCHC 33.3 RDW 16.5 Plt Count 107 L MPV 9.9 Prelim Diff (Auto) Manual diff required WBC Differential Manual diff final Seg Neuts % (Manual) 54 Band Neuts % (Manual) 5 Lymphocytes % (Manual) 22 Monocytes % (Manual) 4 Eosinophils % (Manual) 5 H Basophils % (Manual) 2 Metamyelocytes % (Man) 1 Myelocytes % (Man) 7 H Abs Neuts (Manual) 2.5 Differential Comment . Platelet Estimate Low L Platelet Morphology Enlarged H Ovalocytes 1+ H Sodium 136 Potassium 4.8 Chloride 106 Carbon Dioxide 21.0 Anion Gap 9 BUN 64 H Creatinine 1.85 H Estimated GFR 27 L Random Glucose 101 Calcium 8.1 L Urine Color Yellow Urine Clarity Cloudy H Urine pH 5.0 Ur Specific [place] 1.011 Urine Protein 30 H Urine Glucose (UA) Negative Urine Ketones Trace H Urine Occult Blood Negative Urine Nitrate Negative Urine Bilirubin Negative Urine Urobilinogen Less than 2 Ur Leukocyte Esterase Moderate H Urine RBC 1 Urine WBC 58 H Urine WBC Clumps Few H Urine Bacteria Rare H Hyaline Casts 1 Urine Mucus Few H Urine Yeast Occasional H Ur Microscopic Review Not Reportable - Imaging Impressions Abdomen/Bladder Ultrasound 05/06/18 00:00 CONCLUSION: 1. Increased renal echogenicity characteristic of medical renal disease. Small cyst right kidney. Dependent debris in the bladder. Chest X-Ray 05/07/18 00:00 CONCLUSION: 1. Scattered bilateral infiltrates which are slightly worse on the left than the right suggesting pneumonia or asymmetric pulmonary edema. Clinical correlation is recommended. 2. Mild cardiomegaly. 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 Medications have been adjusted as the patient's is currently in acute kidney injury. Pulmonary is following the patient. COPD/respiratory failure S/P tracheosptimy- capped - needs frequent suctioning Solitary lung nodules Myelodysplastic syndrome with anemia and thrombocytopenia - Heme/onc was consulted - S/P bone marrow biopsy 03/31 - Not a candidate for chemo - Monitor CBC periodically, - Transfuse as needed, if Hb<7.0 or patient symptomatic - The patient is being followed by heme oncology. As per the heme oncologist recent note on 05/02/2018 discussion was held with the patient's son who is a physician's group fitness assistant department head. He does not want the patient to undergo lung biopsy at this time. We will continue to monitor the lung nodules. I will continue to follow up with recommendations from heme oncology. Continue breathing treatments as needed for COPD. The patient currently appears comfortable without any significant complaints. Severe Pharyngeal Dysphagia History fo Esophageal stricture -Continue feeds through the PEG tube.- J tube port - but bilious fluid draning out of G tube port - will d/w GI - previously seen by Dr. Hossein EDGAR DVT - Continue Lovenox Failure to thrive, protein energy malnutrition - Patient with severe pharyngeal dysphagia, esophageal stricture - G/J tube in place flush with 60 cc free water every 8 hours and Vital 1.5 at 55/hr per nutrition recs - G-tube to gravity, reverse Trendelenburg while in bed Chronic systolic heart failure - clinically stable - 2D echo 02/23 showing EF 35% with anterior septal hypokinesis and biatrial dilation - Patient euvolemic on exam today - Pt would benefit from an SNEHA-I or ARB as well as spironolactone but BPs have been borderline hypotensive so will hold off Hypothyroidism - Continue home Levothyroxine Adjustment disorder with depression - Continue Lexapro and Wellbutrin Coccygeal wound- stable - Wound care following - Position changes GERD, h/o Barretts - Continue PPI Lovenox for DVT prophylaxis, renally adjusted. (4) Hypothyroidism Qualifiers: Hypothyroidism type: unspecified Qualified Code(s): E03.9 - Hypothyroidism, unspecified
--- NOTE | 2018-05-07 10:46 | P.PNNP ---
Subjective Interval history: patient has copious secretions from tracheostomy. Secretion is purulent in nature. Physical Exam Vital signs: Vital Signs 05/06/18 11:00 05/06/18 12:00 05/06/18 16:00 Temperature 98.3 F 98.9 F Pulse Rate 80 70 Respiratory Rate 20 18 16 Blood Pressure 94/48 L 95/50 L Pulse Oximetry 97 96 05/06/18 18:15 05/06/18 20:00 05/07/18 00:00 Temperature 97.6 F Pulse Rate 64 Respiratory Rate 22 Blood Pressure 96/46 L Pulse Oximetry 96 96 97 05/07/18 01:25 05/07/18 04:00 Temperature 98.0 F Pulse Rate 62 Respiratory Rate 18 18 Blood Pressure 103/50 L Pulse Oximetry 98 Intake & Output 05/06/18 05/07/18 05/07/18 18:59 06:59 18:59 Intake Total 3210 / 3210 2170 / 2170 Output Total 2650 / 2650 320 / 320 Balance 560 / 560 1850 / 1850 Weight 55.1 kg 55.5 kg Intake: IV 0 / 2050 1050 / 1050 NS Inj 1,000 ML @ 75 mls/hr IV. 1999 / 1999 1000 / 1000 CONT .[id number] ANN Rx#:[id number] Avycaz Inj 0.94 GM In NS Inj 50 50 / 50 50 / 50 ML @ 25 mls/hr IV.SIG Q12H ANN Rx#:[id number] Tube Feeding 660 / 660 600 / 600 Tube Irrigant 120 / 120 Water Bolus Amount 500 / 500 400 / 400 Output: Urine 450 / 450 Stool 400 / 400 Gastric Drainage 1800 / 1800 320 / 320 Gastrojejunostomy Tube 1800 / 1800 320 / 320 Other: # Voids 3 # Incontinent Voids 0 2 Date of Last Bowel Movement 05/06/18 05/05/18 # Bowel Movements 2 Narrative: General patient in no acute distress awake and alert, interactive HEENT extraocular movements are intact, tracheostomy in place regular rhythm no rales, no wheezes ion exam this am Abdomen soft, nontender, nondistended, normal bowel sounds, She has J tube and and a G tube. TF infusing through J tube, and G tube is connected to suction. Extremities no edema 2+ distal pulses in bilateral upper and lower extremities moves all extremities spontaneously Neuro cranial nerves II through XII intact Assessment and Plan - Assessment (1) BETSEY (acute kidney injury) Code(s): N17.9 - Acute kidney failure, unspecified Status: Acute Plan: Possibility of allergic interstitial nephritis will have to be considered. On , she had eosinophilia. She is on Avycaz. UA noted. She has considerable GI output: discussed with hospitalist, unclear why she has G tube drain. Hyponatremia has resolved, could have been hypovolemic hyponatremia. No need for additional workup. Urine eosinophil not a sensitive test, no longer recommended. Urine Na and electrolytes will not change the management. Consider changing the antibiotic, especially if renal function continues to get worse. Prognosis is guarded. Avoid nephrotoxic agents. (2) Pneumonia Code(s): J18.9 - Pneumonia, unspecified organism Status: Acute Plan: Management per medical team, she is on Avycaz. - Plan ,
--- NOTE | 2018-05-07 13:21 | P.PN ---
Subjective Interval history: has more secretions today. On IV antibiotics. on a T Collar 35 %. Good output Physical Exam Vital signs: Vital Signs 05/06/18 16:00 05/06/18 18:15 05/06/18 20:00 Temperature 98.9 F Pulse Rate 70 Respiratory Rate 16 Blood Pressure 95/50 L Pulse Oximetry 96 96 96 05/07/18 00:00 05/07/18 01:25 05/07/18 04:00 Temperature 97.6 F 98.0 F Pulse Rate 64 62 Respiratory Rate 22 18 18 Blood Pressure 96/46 L 103/50 L Pulse Oximetry 97 98 05/07/18 08:00 05/07/18 11:05 Temperature 98.4 F Pulse Rate 66 Respiratory Rate 20 Blood Pressure 100/52 L Pulse Oximetry 96 98 Intake & Output 05/06/18 05/07/18 05/07/18 18:59 06:59 18:59 Intake Total 3210 / 3210 2170 / 2170 Output Total 2650 / 2650 320 / 320 Balance 560 / 560 1850 / 1850 Weight 55.1 kg 55.5 kg Intake: IV 2050 / 2050 1050 / 1050 NS Inj 1,000 ML @ 75 mls/hr IV. 1999 / 1999 1000 / 1000 CONT .[id number] ANN Rx#:[id number] Avycaz Inj 0.94 GM In NS Inj 50 50 / 50 50 / 50 ML @ 25 mls/hr IV.SIG Q12H ANN Rx#:[id number] Tube Feeding 660 / 660 600 / 600 Tube Irrigant 120 / 120 Water Bolus Amount 500 / 500 400 / 400 Output: Urine 450 / 450 Stool 400 / 400 Gastric Drainage 1800 / 1800 320 / 320 Gastrojejunostomy Tube 1800 / 1800 320 / 320 Other: # Voids 3 # Incontinent Voids 0 2 Date of Last Bowel Movement 05/06/18 05/05/18 05/05/18 # Bowel Movements 2 Narrative: General Elderly patient in no acute distress awake and alert, interactive HEENT: DARY tracheostomy in place Cor : regular rhythm Chest : no rales, no wheezes on exam this am Abdomen soft, nontender, nondistended, normal bowel sounds, G-J tube in place no signs of infection site. Extremities no edema 2+ distal pulses in bilateral upper and lower extremities moves all extremities spontaneously Neuro: No focal deficit Results - Labs CBC & Chem 7: 05/07/18 04:45 05/07/18 04:45 Laboratory Results - last 24 hr 05/06/18 05/07/18 05/07/18 17:20 04:45 04:45 WBC 3.8 L RBC 2.49 L Hgb 7.2 L Hct 21.6 L MCV 86.7 MCH 28.9 MCHC 33.3 RDW 16.5 Plt Count 107 L MPV 9.9 Prelim Diff (Auto) Manual diff required WBC Differential Manual diff final Seg Neuts % (Manual) 54 Band Neuts % (Manual) 5 Lymphocytes % (Manual) 22 Monocytes % (Manual) 4 Eosinophils % (Manual) 5 H Basophils % (Manual) 2 Metamyelocytes % (Man) 1 Myelocytes % (Man) 7 H Abs Neuts (Manual) 2.5 Differential Comment . Platelet Estimate Low L Platelet Morphology Enlarged H Ovalocytes 1+ H Sodium 136 Potassium 4.8 Chloride 106 Carbon Dioxide 21.0 Anion Gap 9 BUN 64 H Creatinine 1.85 H Estimated GFR 27 L Random Glucose 101 Calcium 8.1 L Urine Color Yellow Urine Clarity Cloudy H Urine pH 5.0 Ur Specific [place] 1.011 Urine Protein 30 H Urine Glucose (UA) Negative Urine Ketones Trace H Urine Occult Blood Negative Urine Nitrate Negative Urine Bilirubin Negative Urine Urobilinogen Less than 2 Ur Leukocyte Esterase Moderate H Urine RBC 1 Urine WBC 58 H Urine WBC Clumps Few H Urine Bacteria Rare H Hyaline Casts 1 Urine Mucus Few H Urine Yeast Occasional H Ur Microscopic Review Not Reportable - Imaging Impressions Abdomen/Bladder Ultrasound 05/06/18 00:00 CONCLUSION: 1. Increased renal echogenicity characteristic of medical renal disease. Small cyst right kidney. Dependent debris in the bladder. Chest X-Ray 05/07/18 00:00 CONCLUSION: 1. Scattered bilateral infiltrates which are slightly worse on the left than the right suggesting pneumonia or asymmetric pulmonary edema. Clinical correlation is recommended. 2. Mild cardiomegaly. 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 Cont T Collar at 30 %. 2. Cont nebs with albuterol qid. PRN 3. Hold PM valve 4. Cont Levsin .125 mg qid prn. 5. Tube feeds at 55 CC. 6. Robinul 0.4 mg S/Q BID PRN 7. Antibiotics per ID 8. Add Mucomyst 10 % 2 CC q8h
--- NOTE | 2018-05-07 14:57 | P.PNPAL ---
Reason for Visit Reason for visit: a. To assist with evaluation and management of symptoms including: dyspnea, pain, debility, anxiety b. To assist medical decision maker(s) with: better understanding of current medical conditions; weighing benefits/burdens of medical treatment options; making medical treatment decisions. Subjective Subjective/Interval History: Resting in bed in NAD. Per RN she is having copious secretions. On trach collar. CXR showed PNA vs asymmetrical pulmonary edema. Nephrology following, considering interstitial nephritis and have recommended abx change. Has rectal bag with copious liquid stool. Denies anxiety, pain, feeling SOB. Has no questions or complaints. Objective Vital Signs: Vital Signs 05/06/18 16:00 05/06/18 18:15 05/06/18 20:00 Temperature 98.9 F Pulse Rate 70 Respiratory Rate 16 Blood Pressure 95/50 L Pulse Oximetry 96 96 96 05/07/18 00:00 05/07/18 01:25 05/07/18 04:00 Temperature 97.6 F 98.0 F Pulse Rate 64 62 Respiratory Rate 22 18 18 Blood Pressure 96/46 L 103/50 L Pulse Oximetry 97 98 05/07/18 08:00 05/07/18 11:05 Temperature 98.4 F Pulse Rate 66 Respiratory Rate 20 Blood Pressure 100/52 L Pulse Oximetry 96 98 Intake & Output 05/06/18 05/07/18 05/07/18 18:59 06:59 18:59 Intake Total 3210 / 3210 2170 / 2170 Output Total 2650 / 2650 320 / 320 Balance 560 / 560 1850 / 1850 Weight 55.1 kg 55.5 kg Intake: IV 2049 / 2049 1050 / 1050 NS Inj 1,000 ML @ 75 mls/hr IV. 1999 / 1999 1000 / 1000 CONT .[id number] NELSON Rx#:[id number] Avycaz Inj 0.94 GM In NS Inj 50 50 / 50 50 / 50 ML @ 25 mls/hr IV.SIG Q12H NELSON Rx#:[id number] Tube Feeding 660 / 660 600 / 600 Tube Irrigant 120 / 120 Water Bolus Amount 500 / 500 400 / 400 Output: Urine 450 / 450 Stool 400 / 400 Gastric Drainage 1800 / 1800 320 / 320 Gastrojejunostomy Tube 1800 / 1800 320 / 320 Other: # Voids 3 # Incontinent Voids 0 2 Date of Last Bowel Movement 05/06/18 05/05/18 05/05/18 # Bowel Movements 2 Physical Exam: CONSTITUTIONAL/GENERAL: this is a pale, ill appearing female with a tracheostomy SKIN: Pale. No jaundice, rashes, or lesions. No wounds seen anteriorly. Skin temperature appropriate. Not diaphoretic. HEAD: Atraumatic. Normocephalic. EYES: Extraocular motions intact. No scleral icterus. No injection or drainage. Fundi not examined. ENT: Hearing grossly normal. Nose without bleeding or purulent drainage. CARDIOVASCULAR: RRR without murmurs, gallops, or rubs. No JVD. Peripheral pulses symmetric. RESPIRATORY/CHEST: coarse lung sounds but less so than last eval. respirations shallow. trach collar GASTROINTESTINAL: Abdomen soft, non-tender, nondistended. No hepato-splenomegaly , or palpable masses. No guarding. Bowel sounds present. +GJ tube MUSCULOSKELETAL: Extremities without clubbing, cyanosis, or edema. No joint tenderness or effusion noted. No calf tenderness. No mottling or clubbing. NEUROLOGICAL: Awake and alert. Motor and sensory grossly within normal limits. Follows commands. Cognitively sharp. Moves all extremities. PSYCHIATRIC: appears anxious. no apparent hallucinations or other psychotic thought process. Diagnostic Tests Laboratory: Laboratory Results - last 72 hr 05/05/18 05/05/18 05/06/18 06:21 06:21 06:07 WBC 5.5 RBC 3.03 L Hgb 8.9 L Hct 25.6 L MCV 84.7 MCH 29.2 MCHC 34.5 RDW 16.6 Plt Count 123 L MPV 10.0 Prelim Diff (Auto) WBC Differential Seg Neuts % (Manual) Band Neuts % (Manual) Lymphocytes % (Manual) Monocytes % (Manual) Eosinophils % (Manual) Basophils % (Manual) Metamyelocytes % (Man) Myelocytes % (Man) Abs Neuts (Manual) Differential Comment Platelet Estimate Platelet Morphology Ovalocytes Sodium 130 L 134 L Potassium 4.7 4.9 Chloride 93 L 102 D Carbon Dioxide 24.7 18.8 L Anion Gap 12 13 BUN 68 H 64 H Creatinine 1.86 H 1.87 H Estimated GFR 27 L 26 L Random Glucose 107 H 110 H Calcium 8.7 7.9 L D Magnesium 2.4 Urine Color Urine Clarity Urine pH Ur Specific [place] Urine Protein Urine Glucose (UA) Urine Ketones Urine Occult Blood Urine Nitrate Urine Bilirubin Urine Urobilinogen Ur Leukocyte Esterase Urine RBC Urine WBC Urine WBC Clumps Urine Bacteria Hyaline Casts Urine Mucus Urine Yeast Ur Microscopic Review 05/06/18 05/07/18 05/07/18 17:20 04:45 04:45 WBC 3.8 L RBC 2.49 L Hgb 7.2 L Hct 21.6 L MCV 86.7 MCH 28.9 MCHC 33.3 RDW 16.5 Plt Count 107 L MPV 9.9 Prelim Diff (Auto) Manual diff required WBC Differential Manual diff final Seg Neuts % (Manual) 54 Band Neuts % (Manual) 5 Lymphocytes % (Manual) 22 Monocytes % (Manual) 4 Eosinophils % (Manual) 5 H Basophils % (Manual) 2 Metamyelocytes % (Man) 1 Myelocytes % (Man) 7 H Abs Neuts (Manual) 2.5 Differential Comment . Platelet Estimate Low L Platelet Morphology Enlarged H Ovalocytes 1+ H Sodium 136 Potassium 4.8 Chloride 106 Carbon Dioxide 21.0 Anion Gap 9 BUN 64 H Creatinine 1.85 H Estimated GFR 27 L Random Glucose 101 Calcium 8.1 L Magnesium Urine Color Yellow Urine Clarity Cloudy H Urine pH 5.0 Ur Specific [place] 1.011 Urine Protein 30 H Urine Glucose (UA) Negative Urine Ketones Trace H Urine Occult Blood Negative Urine Nitrate Negative Urine Bilirubin Negative Urine Urobilinogen Less than 2 Ur Leukocyte Esterase Moderate H Urine RBC 1 Urine WBC 58 H Urine WBC Clumps Few H Urine Bacteria Rare H Hyaline Casts 1 Urine Mucus Few H Urine Yeast Occasional H Ur Microscopic Review Not Reportable Result Diagrams: 05/07/18 04:45 05/07/18 04:45 Assessment and Plan - Disease Oriented Problem List (1) Respiratory failure with hypoxia (2) Aspiration pneumonia (3) Anemia (4) Dysphagia (5) Tracheostomy dependence (6) Decubitus ulcer of coccyx (7) History of laryngeal cancer - Symptom Scale (3) Dyspnea Comment: 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 Patient now has a tracheostomy. Pertinent Non-Medical Issues: Psychosocial: Patient is originally from [place]. She has 4 brothers and 2 sisters. She moved to [place] approximately 40 years ago. Patient was for 18 years and then . She and her had 3 sons (Alireza, Sagar and Cameron). Ailreza is a physicians visitor information assistant and lives in [place]. Adalid and Cameron live in [place]. Per patient, Cameron was born with "autism" and live in a retirement Spiritual: Religious Legal: Pt's son Alireza is medical POA. Ethical issues impacting care: none Important Contacts: medical POA son Alireza Whitten , cell [phone] Prognosis: This is a 73 yo lady with hx laryngeal ca diagnosed 2015 s/p chemo and radiation who [facility] She initially presented in January with weakness, dysphagia, weight loss, anemia. She has since had tracheostomy, GJ, and numerous complications, now with pneumonia. She remains at risk for further decline, complications and setbacks. Code Status: Full Code Plan: - LEGAL DECISON MAKER - Pt is capacitated to make medical decisions. Should she become incapacitated, she has designated her son Alireza as medical POA. - CODE STATUS- full code - GOALS - Goals aggressive. Re-addressed code status and goals of medical treatment with her. Initially says she would want to be DNR and that she thinks her son would be okay with that. Then she says she doesn't know. She wants to go home. I explained that she requires too much care to go home to live by herself. She indicated that she doesn't know what she wants to do. SHe verbalized understanding of CT chest results and that oncology was not recommending further work up. - SYMPTOMS - * pain - risk for pain. multifactorial, coccygeal ulcer, mult lines and catheters, tubes. denies pain today on my eval. Has [place] 5/325 1 tab PRN q4h and 2 tab PRN q4h for mild and moderate to severe pain, respectively. Also has PRN roxanol 5mg q4h for breakthrough pain. is using 2 tabs most frequently. no further recs. * dyspnea - hx laryngeal ca, has trach, now with PNA. BCX pending. denies feeling SOB today. +secretions. lung sounds coarse. Had chest CT which showed enlarging spiculated nodule and 2 new developing nodules. Not candidate for lung bx. sputum growing PSAE MDRO sensitive to avycaz. has PRN and scheduled duonebs, PRN and nelson levsin. abx per ID. has PRN meds for anxiety and pain. abx per ID. * depression/anxiety - multifactorial. pt admitted feeling anxious today, recent CT showing enlarging lung mass. on lexapro, wellbutrin. has PRN ativan 1mg q6h. Has PRN temazepam for insomnia. RN to give PRN ativan * debility- multifactorial. 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 respiratory status unlikely to allow for aggressive therapy and rehab. per rehab notes 04/25 she had BP drop during thearpy. having recurrent PNA. weak. ROOM ATTENDANT and rehab have recommended strict NPO, no ice chips. PT following. no further recs. - d/w RN - Palliative care will continue to follow during hospital course as condition evolves, to assist patient/decision-maker with understanding of medical conditions, weighing benefits/burdens of treatment options, for clarification of goals of treatment. Additionally will assist with any symptoms of palliative concern
--- NOTE | 2018-05-07 18:58 | MB ---
cc: Sadie Ashby MD DATE: 05/07/2018 REASON FOR CONSULTATION: Malfunctioning PEG tube. 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 She has been in the hospital for a pneumonia, was eventually treated, and had been up on the [facility] facility. At some point, she developed sudden onset of hypoxemic respiratory failure, underwent appropriate rapid response, and was transferred to the intensive care unit on 04/23/2018. She underwent appropriate ICU related care and was diagnosed with a left lower lobe pneumonia. She also had some chronic renal insufficiency. All throughout this time, she has been receiving appropriate tube feeds via the GJ-tube. All of her tube feedings are going through the jejunostomy port of the GJ tube, and the gastric port has been placed on dependent gravity and has greenish biliary discharge. GI was consulted to evaluate this and to see if there are any issues with that. PAST MEDICAL HISTORY: GERD, history of Rendon's, hypothyroidism, history of squamous cell carcinoma esophageal stricture, vent-dependent respiratory failure, eventually requiring a trach collar, recurrent aspiration pneumonia, currently has a GJ tube. PAST SURGICAL HISTORY: Hernia repair, tonsillectomy, adenoidectomy, history of esophageal dilations, endoscopic workup in the past. FAMILY HISTORY: Mother with breast cancer. SOCIAL HISTORY: Distant tobacco use history. No alcohol use. ALLERGIES: EPINEPHRINE, PENICILLIN, peanuts, soy, legumes. MEDICATIONS: Please see MAR for complete and accurate list. REVIEW OF SYSTEMS: A 12-point review of system was obtained by me and shown to be negative or noncontributory except for the above-mentioned in the HPI. PHYSICAL EXAMINATION: VITAL SIGNS: Temperature 98.7, pulse 72, respirations 20, blood pressure 90/64, 98% on trach collar. HEENT: Oral mucosa dry, but pink. Extraocular movements are intact. The patient is nonverbal, but appropriately understands and answers without difficulty. NECK: Supple, nontender. No carotid bruits. Tracheostomy collar noted. RESPIRATORY: Clear to auscultation bilaterally, slight reduced breath sounds bilateral bases. CARDIOVASCULAR: Regular rate and rhythm. ABDOMEN: Soft, nontender, nondistended. Bowel sounds present in all 4 quadrants. GJ tube noted on the left upper quadrant, appears to be functioning well, infusing 50 mL of tube feeds via the J-tube. No rebound appreciated, no hepatosplenomegaly appreciated. EXTREMITIES: Mild edema noted. NEUROLOGIC: Alert and oriented. No focal deficits. Strength equal, but overall weak. LABORATORY DATA: WBC 3.8, hemoglobin 7.2, platelet count 107. Sodium 138, potassium 4.8, chloride 106, BUN 64, creatinine 1.85. INR 1.1. IMPRESSION: 1. Moderate to severe protein calorie malnutrition, currently appropriately being treated with a GJ tube, appears to be functioning well. The G portion is to dependent gravity. The patient has a history of gastroparesis. Therefore, leaving this to dependent gravity will alleviate a lot of the gastric distention, gastric fluid backing up, which would theoretically reduce her aspiration risk. She is getting appropriate tube feeds through the J-tube, which I would recommend continuing. 2. History of gastroesophageal reflux disease and recurrent aspiration pneumonia. Ideally, the patient should be placed in a reverse Trendelenburg position, which would allow gravity to help empty her stomach as well as reduce the reflux episodes into the lower part of the esophagus, thereby essentially limiting her aspiration from gastric contents. Of course, this will not help for a moderate amount of secretions from her oropharyngeal way, which could be causing some of the other aspiration. 3. Pneumonia appropriately on current treatment, history of tracheostomy with a trach collar. RECOMMENDATIONS: 1. Continue current treatment. I would not recommend changing anything at this time. 2. I do not believe any endoscopic workup or treatment is necessary. 3. This is in regard to her gastrojejunostomy status as well as her stomach site, this is her baseline. She did have a recent endoscopic workup, which did not reveal any evidence of gastric outlet obstruction. Therefore, I do not believe any further workup is necessary. Thank you for allowing [facility] to participate in the care of this patient. Please do not hesitate to contact me for any further questions. MD JAVIER Gerardo/mayra , 05:20 PM , 05:32 PM
[2018-05-08] MEDS: Enoxaparin Inj 60 MG/0.6 ML Syringe SQ SCH (00:15)
[2018-05-08] MEDS: Acetaminophen 325 MG Tablet J-TUBE PRN (00:17)
[2018-05-08] MEDS: Hyoscyamine Liq Drops 0.125 MG/ML 15 ML Bottle SL SCH ×4 (04:48→21:05)
[2018-05-08] MEDS: Levothyroxine 100 MCG Tablet J-TUBE SCH (05:44)
[2018-05-08] MEDS: Ascorbic Acid 500 MG Tablet J-TUBE SCH ×2 (08:37→20:37)
[2018-05-08] MEDS: Lactobacillus Acidophilus/L. Spores Tablet J-TUBE SCH ×3 (08:37→17:11)
[2018-05-08] MEDS: buPROPion 75 MG Tablet J-TUBE SCH ×2 (08:37→20:37)
[2018-05-08] MEDS: Ceftazidime/Avibactam Inj 0.94 GM in Sodium Chlor 0.9% Inj 50 ML IV.SIG SCH ×2 (08:37→20:36)
--- NOTE | 2018-05-08 08:50 | P.PNNP ---
Subjective Interval history: Non oliguric. Renal panel pending. Copious secretions around tracheostomy. Purulent. Culture being taken today. Physical Exam Vital signs: Vital Signs 05/07/18 11:05 05/07/18 12:00 05/07/18 16:00 Temperature 98.7 F 98.1 F Pulse Rate 72 62 Respiratory Rate 20 20 Blood Pressure 99/54 L 101/55 L Pulse Oximetry 98 98 98 05/07/18 17:31 05/07/18 20:00 05/07/18 23:32 Temperature 101.2 F H Pulse Rate 62 64 78 Respiratory Rate 20 20 20 Blood Pressure 95/51 L Pulse Oximetry 100 05/07/18 23:45 05/08/18 00:00 05/08/18 04:00 Temperature 101.4 F H 97.8 F Pulse Rate 68 74 Respiratory Rate 20 20 Blood Pressure 100/57 L 102/60 Pulse Oximetry 98 100 97 05/08/18 07:00 05/08/18 07:44 05/08/18 08:00 Temperature 98.3 F Pulse Rate 66 62 Respiratory Rate 16 16 Blood Pressure 98/46 L Pulse Oximetry 99 99 Intake & Output 05/07/18 05/08/18 05/08/18 18:59 06:59 18:59 Intake Total 895 / 895 2095 / 2095 Output Total 2400 / 2400 1550 / 1550 Balance -1505 / -1505 545 / 545 Weight 54.1 kg Intake: IV 50 / 50 1050 / 1050 NS Inj 1,000 ML @ 75 mls/hr IV. 1000 / 1000 CONT .[id number] ANN Rx#:[id number] Avycaz Inj 0.94 GM In NS Inj 50 50 / 50 50 / 50 ML @ 25 mls/hr IV.SIG Q12H ANN Rx#:[id number] Oral 0 / 0 Tube Feeding 225 / 225 645 / 645 Tube Irrigant 120 / 120 Water Bolus Amount 400 / 400 400 / 400 Other 100 / 100 Output: Urine 400 / 400 300 / 300 Stool 400 / 400 Urine/Stool Mix 250 / 250 Gastric Drainage 1600 / 1600 1000 / 1000 Gastrojejunostomy Tube 1600 / 1600 1000 / 1000 Jejunostomy Tube 0 / 0 Other: # Voids 3 # Incontinent Voids 2 # Urine Diapers 2 Date of Last Bowel Movement 05/05/18 05/08/18 # Bowel Movements 2 # Incontinent Bowel Movements 1 Narrative: General Elderly patient in no acute distress. Frail. awake and alert, interactive HEENT: tracheostomy in place Cor : regular rhythm Chest : no rales, no wheezes on exam this am Abdomen soft, nontender, nondistended, normal bowel sounds, G-J tube in place no signs of infection site. Extremities no edema moves all extremities spontaneously Neuro: No focal deficit Assessment and Plan - Assessment (1) BETSEY (acute kidney injury) Code(s): N17.9 - Acute kidney failure, unspecified Status: Acute Plan: Possibility of allergic interstitial nephritis will have to be considered. On , she had eosinophilia. She is on Avycaz. UA noted. She has considerable GI output: apparently has history of gastroparesis. Hyponatremia has resolved, could have been hypovolemic hyponatremia. No need for additional workup. Urine eosinophil not a sensitive test, no longer recommended. Urine Na and electrolytes will not change the management. Consider changing the antibiotic, especially if renal function continues to get worse. Prognosis is guarded. Avoid nephrotoxic agents. (2) Pneumonia Code(s): J18.9 - Pneumonia, unspecified organism Status: Acute Plan: Management per medical team, she is on Avycaz. - Plan ,
--- NOTE | 2018-05-08 10:28 | P.PNIM ---
Subjective Interval history: Patient is noted to have decreased hemoglobin. And borderline blood pressure. We will transfuse 2 units packed red blood cells with Benadryl and Tylenol given prior we will get a.m. labs Physical Exam Vital signs: Vital Signs 05/07/18 11:05 05/07/18 12:00 05/07/18 16:00 Temperature 98.7 F 98.1 F Pulse Rate 72 62 Respiratory Rate 20 20 Blood Pressure 99/54 L 101/55 L Pulse Oximetry 98 98 98 05/07/18 17:31 05/07/18 20:00 05/07/18 23:32 Temperature 101.2 F H Pulse Rate 62 64 78 Respiratory Rate 20 20 20 Blood Pressure 95/51 L Pulse Oximetry 100 05/07/18 23:45 05/08/18 00:00 05/08/18 04:00 Temperature 101.4 F H 97.8 F Pulse Rate 68 74 Respiratory Rate 20 20 Blood Pressure 100/57 L 102/60 Pulse Oximetry 98 100 97 05/08/18 07:00 05/08/18 07:44 05/08/18 08:00 Temperature 98.3 F Pulse Rate 66 62 Respiratory Rate 16 16 Blood Pressure 98/46 L Pulse Oximetry 99 99 Intake & Output 05/07/18 05/08/18 05/08/18 18:59 06:59 18:59 Intake Total 895 / 895 2095 / 2095 Output Total 2400 / 2400 1550 / 1550 Balance -1505 / -1505 545 / 545 Weight 54.1 kg Intake: IV 50 / 50 1050 / 1050 NS Inj 1,000 ML @ 75 mls/hr IV. 1000 / 1000 CONT .[id number] ANN Rx#:[id number] Avycaz Inj 0.94 GM In NS Inj 50 50 / 50 50 / 50 ML @ 25 mls/hr IV.SIG Q12H ANN Rx#:[id number] Oral 0 / 0 Tube Feeding 225 / 225 645 / 645 Tube Irrigant 120 / 120 Water Bolus Amount 400 / 400 400 / 400 Other 100 / 100 Output: Urine 400 / 400 300 / 300 Stool 400 / 400 Urine/Stool Mix 250 / 250 Gastric Drainage 1600 / 1600 1000 / 1000 Gastrojejunostomy Tube 1600 / 1600 1000 / 1000 Jejunostomy Tube 0 / 0 Other: # Voids 3 # Incontinent Voids 2 # Urine Diapers 2 Date of Last Bowel Movement 05/05/18 05/08/18 # Bowel Movements 2 # Incontinent Bowel Movements 1 Narrative: General Elderly patient in no acute distress. Frail. awake and alert, interactive HEENT: tracheostomy in place Cor : regular rhythm Chest : no rales, no wheezes on exam this am Abdomen soft, nontender, nondistended, normal bowel sounds, G-J tube in place no signs of infection site. Extremities no edema moves all extremities spontaneously Neuro: No focal deficit Results - Labs CBC & Chem 7: 05/07/18 04:45 05/07/18 04:45 Assessment and Plan - Assessment (1) Pneumonia Code(s): J18.9 - Pneumonia, unspecified organism Status: Acute (2) GERD (gastroesophageal reflux disease) Code(s): K21.9 - Gastro-esophageal reflux disease without esophagitis Status: Acute (3) DVT (deep venous thrombosis) Code(s): I82.409 - Acute embolism and thrombosis of unspecified deep veins of unspecified lower extremity Status: Acute (4) Hypothyroidism Code(s): E03.9 - Hypothyroidism, unspecified Status: Chronic (5) Laryngeal squamous cell carcinoma Code(s): C32.9 - Malignant neoplasm of larynx, unspecified Status: Chronic (6) Protein-calorie malnutrition, severe Code(s): E43 - Unspecified severe protein-calorie malnutrition Status: Chronic - Plan 73 yers old female Acute kidney injury possibly acute interstitial nephritis The patient is receiving feeds through her J tube Renal functions stabilizing- non oliguric Renal ultrasound shows chronic small kidneys Nephrology ff FF output from GJ tube Multidrug-resistant pseudomonas pneumonia Continue IV antibiotics as per ID recommendations for a total of 14 days till . Medications have been adjusted as the patient's is currently in acute kidney injury. Pulmonary is following the patient. COPD/respiratory failure S/P tracheosptimy- capped - needs frequent suctioning Solitary lung nodules Myelodysplastic syndrome with anemia and thrombocytopenia - Heme/onc was consulted - S/P bone marrow biopsy 03/31 - Not a candidate for chemo - Monitor CBC periodically, - Transfuse as needed, if Hb<7.0 or patient symptomatic - The patient is being followed by heme oncology. As per the heme oncologist recent note on 05/02/2018 discussion was held with the patient's son who is a physician's grants and contracts assistant. He does not want the patient to undergo lung biopsy at this time. We will continue to monitor the lung nodules. I will continue to follow up with recommendations from heme oncology. Continue breathing treatments as needed for COPD. The patient currently appears comfortable without any significant complaints. Severe Pharyngeal Dysphagia History fo Esophageal stricture -Continue feeds through the PEG tube.- J tube port - but bilious fluid draining out of G tube port - will d/w GI - previously seen by Dr. Hossein BABCOCKE DVT - Continue Lovenox Failure to thrive, protein energy malnutrition - Patient with severe pharyngeal dysphagia, esophageal stricture - G/J tube in place flush with 60 cc free water every 8 hours and Vital 1.5 at 55/hr per nutrition recs - G-tube to gravity, reverse Trendelenburg while in bed Chronic systolic heart failure - clinically stable - 2D echo 02/23 showing EF 35% with anterior septal hypokinesis and biatrial dilation - Patient euvolemic on exam today - Pt would benefit from an SNEHA-I or ARB as well as spironolactone but BPs have been borderline hypotensive so will hold off Hypothyroidism - Continue home Levothyroxine Adjustment disorder with depression - Continue Lexapro and Wellbutrin Coccygeal wound- stable - Wound care following - Position changes GERD, h/o Barretts - Continue PPI Anemia will transfuse 2 units packed red blood cells Borderline hypertension will be treated with the transfusion of 2 units packed red blood cells We will get a.m. labs Lovenox for DVT prophylaxis, renally adjusted. Code Status: Full code Discussed Condition With: RN and patient Discharge Planning: Safe placement (4) Hypothyroidism Qualifiers: Hypothyroidism type: unspecified Qualified Code(s): E03.9 - Hypothyroidism, unspecified
[2018-05-08] MEDS ORDERED: Sodium Chlor 0.9% Inj 250 ML IV.SIG SCH (11:00)
--- NOTE | 2018-05-08 13:05 | P.PN ---
Subjective Interval history: Has some green secretions. Trach site is OK.Alert and talks. Hgb7.2. Physical Exam Vital signs: Vital Signs 05/07/18 16:00 05/07/18 17:31 05/07/18 20:00 Temperature 98.1 F 101.2 F H Pulse Rate 62 62 64 Respiratory Rate 20 20 20 Blood Pressure 101/55 L 95/51 L Pulse Oximetry 98 100 05/07/18 23:32 05/07/18 23:45 05/08/18 00:00 Temperature 101.4 F H Pulse Rate 78 68 Respiratory Rate 20 20 Blood Pressure 100/57 L Pulse Oximetry 98 100 05/08/18 04:00 05/08/18 07:00 05/08/18 07:44 Temperature 97.8 F Pulse Rate 74 66 Respiratory Rate 20 16 Blood Pressure 102/60 Pulse Oximetry 97 99 05/08/18 08:00 05/08/18 12:00 Temperature 98.3 F 97.8 F Pulse Rate 62 63 Respiratory Rate 16 16 Blood Pressure 98/46 L 108/53 L Pulse Oximetry 99 100 Intake & Output 05/07/18 05/08/18 05/08/18 18:59 06:59 18:59 Intake Total 895 / 895 2095 / 2095 50 / 50 Output Total 2400 / 2400 1550 / 1550 Balance -1505 / -1505 545 / 545 50 / 50 Weight 54.1 kg Intake: IV 50 / 50 1050 / 1050 50 / 50 NS Inj 1,000 ML @ 75 mls/hr IV. 1000 / 1000 CONT .[id number] ANN Rx#:[id number] Avycaz Inj 0.94 GM In NS Inj 50 50 / 50 50 / 50 50 / 50 ML @ 25 mls/hr IV.SIG Q12H ANN Rx#:[id number] Oral 0 / 0 Tube Feeding 225 / 225 645 / 645 Tube Irrigant 120 / 120 Water Bolus Amount 400 / 400 400 / 400 Other 100 / 100 Output: Urine 400 / 400 300 / 300 Stool 400 / 400 Urine/Stool Mix 250 / 250 Gastric Drainage 1600 / 1600 1000 / 1000 Gastrojejunostomy Tube 1600 / 1600 1000 / 1000 Jejunostomy Tube 0 / 0 Other: # Voids 3 # Incontinent Voids 2 # Urine Diapers 2 Date of Last Bowel Movement 05/05/18 05/08/18 # Bowel Movements 2 # Incontinent Bowel Movements 1 Narrative: General Elderly patient in no acute distress. Frail. awake and alert,talking HEENT: tracheostomy in place with Mild secretions Cor : regular rhythm No Murmur Chest : Occ wheeze heard Abdomen soft, nontender, nondistended, normal bowel sounds, G-J tube in place no signs of infection at site. Extremities no edema moves all extremities well Neuro: No focal deficit Results - Labs CBC & Chem 7: 05/07/18 04:45 05/07/18 04:45 Laboratory Results - last 24 hr 05/08/18 10:50 Blood Type B Positive Antibody Screen Negative MTS Gel Crossmatch See Detail Assessment and Plan - Assessment (1) Respiratory failure Code(s): J96.90 - Respiratory failure, unspecified, unspecified whether with hypoxia or hypercapnia Status: Acute (2) Pneumonia Code(s): J18.9 - Pneumonia, unspecified organism Status: Acute (3) Status post trachelectomy Code(s): Z90.710 - Acquired absence of both cervix and uterus Status: Acute (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 Cont T Collar at 30 %. 2. Cont nebs with albuterol qid. PRN 3. Transfuse 2 U Packed red cells 4. Cont Levsin .125 mg qid prn. 5. Tube feeds at 55 CC. 6. Robinul 0.4 mg S/Q BID PRN 7. Antibiotics per ID 8. Reculture trach site
[2018-05-08] MEDS: Sod Chloride 0.9% Inj 1,000 ML IV.CONT SCH (13:29)
[2018-05-09] MEDS: Enoxaparin Inj 60 MG/0.6 ML Syringe SQ SCH (01:04)
[2018-05-09] MEDS: Sod Chloride 0.9% Inj 1,000 ML IV.CONT SCH ×2 (01:04→14:05)
[2018-05-09] MEDS: Hyoscyamine Liq Drops 0.125 MG/ML 15 ML Bottle SL SCH ×4 (04:37→21:07)
[2018-05-09] MEDS: Levothyroxine 100 MCG Tablet J-TUBE SCH (05:45)
[2018-05-09 08:29] LABS: Hematocrit 29.8 % (35.0-46.0); Hemoglobin 10.2 gm/dL (11.6-15.3); Mean Corpuscular HGB Conc 34.3 % (32.0-36.0); Mean Corpuscular Hemoglobin 29.6 pg (27.0-34.0); Mean Corpuscular Volume 86.4 fL (80.0-100.0); Mean Platelet Volume 9.4 fL (7.0-11.0); Platelet Count 110 th/mm3 (150-450); Red Blood Count 3.45 mil/mm3 (4.00-5.30); White Blood Count 3.9 th/mm3 (4.0-11.0)
[2018-05-09 09:01] LABS: Alanine Aminotransferase 23 U/L (10-53); Albumin 2.1 g/dL (3.4-5.0); Alkaline Phosphatase 114 U/L (45-117); Anion Gap 11 meq/L (5-15); Aspartate Aminotransferase 15 U/L (15-37); Blood Urea Nitrogen 50 mg/dL (7-18); Calcium 8.2 mg/dL (8.5-10.1); Carbon Dioxide 18.9 meq/L (21.0-32.0); Chloride 110 meq/L (98-107); Free T4 (Free Thyroxine) 0.93 ng/dL (0.76-1.46); Glomerular Filtration Rate 35 mL/min (>89); Glucose,Random 102 mg/dL (74-106); Magnesium 1.9 mg/dL (1.5-2.5); Phosphorus 4.1 mg/dL (2.5-4.9); Potassium 4.8 meq/L (3.5-5.1); Sodium 140 meq/L (136-145)
[2018-05-09] MEDS: Ascorbic Acid 500 MG Tablet J-TUBE SCH ×2 (09:08→20:52)
[2018-05-09] MEDS: buPROPion 75 MG Tablet J-TUBE SCH ×2 (09:08→20:52)
[2018-05-09] MEDS: Lactobacillus Acidophilus/L. Spores Tablet J-TUBE SCH ×3 (09:08→18:01)
--- NOTE | 2018-05-09 10:01 | P.PNIM ---
Subjective Interval history: 05-08 Patient is noted to have decreased hemoglobin. And borderline blood pressure. We will transfuse 2 units packed red blood cells with Benadryl and Tylenol given prior we will get a.m. labs 05-09 hemoglobin is now over 10 TSH is elevated at 9 Will increase Synthroid Discussed with patient and RN Physical Exam Vital signs: Vital Signs 05/08/18 12:00 05/08/18 13:23 05/08/18 13:40 Temperature 97.8 F 97.7 F 97.4 F L Pulse Rate 63 59 L 60 Respiratory Rate 16 16 16 Blood Pressure 108/53 L 101/50 L 103/51 L Pulse Oximetry 100 100 100 05/08/18 14:27 05/08/18 14:43 05/08/18 16:00 Temperature 97.4 F L 97.3 F L 96.3 F L Pulse Rate 60 60 64 Respiratory Rate 16 16 18 Blood Pressure 112/54 L 125/58 L 129/56 L Pulse Oximetry 100 100 99 05/08/18 17:23 05/08/18 20:00 05/08/18 20:53 Temperature 97.8 F Pulse Rate 73 70 Respiratory Rate 14 18 Blood Pressure 110/64 Pulse Oximetry 100 99 05/08/18 23:47 05/09/18 00:00 05/09/18 04:00 Temperature 98 F 98.2 F Pulse Rate 70 72 77 Respiratory Rate 18 18 18 Blood Pressure 112/58 L 102/55 L Pulse Oximetry 100 05/09/18 08:39 05/09/18 08:40 Temperature Pulse Rate 63 Respiratory Rate 20 Blood Pressure Pulse Oximetry 99 Intake & Output 05/08/18 05/09/18 05/09/18 18:59 06:59 18:59 Intake Total 3062 / 3062 2242 / 2242 Output Total 1400 / 1400 1300 / 1300 Balance 1662 / 1662 942 / 942 Weight 55.1 kg Intake: IV 1300 / 1300 1050 / 1050 NS Inj 1,000 ML @ 75 mls/hr IV. 1000 / 1000 1000 / 1000 CONT .[id number] ANN Rx#:[id number] Avycaz Inj 0.94 GM In NS Inj 50 50 / 50 50 / 50 ML @ 25 mls/hr IV.SIG Q12H ANN Rx#:[id number] NS Inj 250 ML @ 15 mls/hr IV. 250 / 250 SIG ONCE ANN Rx#:[id number] Oral 0 / 0 Tube Feeding 562 / 562 622 / 622 Tube Irrigant 120 / 120 Water Bolus Amount 400 / 400 400 / 400 Other 50 / 50 Intake (Blood Product) Amt 800 / 800 Rbc As-3 Leukoreduced Unit 400 / 400 [id number] Rbc As-3 Leukoreduced Unit 400 / 400 [id number] Output: Urine 550 / 550 300 / 300 Gastric Drainage 850 / 850 1000 / 1000 Gastrojejunostomy Tube 850 / 850 1000 / 1000 Jejunostomy Tube 0 / 0 Other: # Voids 2 2 # Incontinent Voids 1 # Urine Diapers 1 Date of Last Bowel Movement 05/08/18 # Incontinent Bowel Movements 1 Narrative: General Elderly patient in no acute distress. Frail. awake and alert,talking HEENT: tracheostomy in place with Mild secretions Cor : regular rhythm No Murmur Chest : Occ wheeze heard Abdomen soft, nontender, nondistended, normal bowel sounds, G-J tube in place no signs of infection at site. Extremities no edema moves all extremities well Neuro: No focal deficit Results - Labs CBC & Chem 7: 05/09/18 07:33 05/09/18 07:33 Laboratory Results - last 24 hr 04/30/18 05/08/18 05/09/18 10:00 10:50 07:33 WBC RBC Hgb Hct MCV MCH MCHC RDW Plt Count MPV Prelim Diff (Auto) Differential Comment Sodium 140 Potassium 4.8 Chloride 110 H Carbon Dioxide 18.9 L Anion Gap 11 BUN 50 H Creatinine 1.46 H Estimated GFR 35 L Random Glucose 102 Calcium 8.2 L Phosphorus 4.1 Magnesium 1.9 Total Bilirubin 0.3 AST 15 ALT 23 Alkaline Phosphatase 114 Total Protein 6.0 L Albumin 2.1 L TSH 9.290 H Free T4 0.93 Blood Type B Positive Antibody Screen Negative MTS Gel Crossmatch See Detail See Detail 05/09/18 07:33 WBC 3.9 L RBC 3.45 L Hgb 10.2 L Hct 29.8 L MCV 86.4 MCH 29.6 MCHC 34.3 RDW 16.0 Plt Count 110 L MPV 9.4 Prelim Diff (Auto) Manual diff required Differential Comment . Sodium Potassium Chloride Carbon Dioxide Anion Gap BUN Creatinine Estimated GFR Random Glucose Calcium Phosphorus Magnesium Total Bilirubin AST ALT Alkaline Phosphatase Total Protein Albumin TSH Free T4 Blood Type Antibody Screen MTS Gel Crossmatch Microbiology 05/08/18 07:35 Sputum - Tracheal Aspirate Gram Stain - Final Assessment and Plan - Assessment (1) Pneumonia Code(s): J18.9 - Pneumonia, unspecified organism Status: Acute (2) GERD (gastroesophageal reflux disease) Code(s): K21.9 - Gastro-esophageal reflux disease without esophagitis Status: Acute (3) DVT (deep venous thrombosis) Code(s): I82.409 - Acute embolism and thrombosis of unspecified deep veins of unspecified lower extremity Status: Acute (4) Hypothyroidism Code(s): E03.9 - Hypothyroidism, unspecified Status: Chronic (5) Laryngeal squamous cell carcinoma Code(s): C32.9 - Malignant neoplasm of larynx, unspecified Status: Chronic (6) Protein-calorie malnutrition, severe Code(s): E43 - Unspecified severe protein-calorie malnutrition Status: Chronic - Plan 73 yers old female Acute kidney injury possibly acute interstitial nephritis The patient is receiving feeds through her J tube Renal functions stabilizing- non oliguric Renal ultrasound shows chronic small kidneys Nephrology ff FF output from GJ tube Multidrug-resistant pseudomonas pneumonia Continue IV antibiotics as per ID recommendations for a total of 14 days till . Medications have been adjusted as the patient's is currently in acute kidney injury. Pulmonary is following the patient. COPD/respiratory failure S/P tracheosptimy- capped - needs frequent suctioning Solitary lung nodules Myelodysplastic syndrome with anemia and thrombocytopenia - Heme/onc was consulted - S/P bone marrow biopsy 03/31 - Not a candidate for chemo - Monitor CBC periodically, - Transfuse as needed, if Hb<7.0 or patient symptomatic - The patient is being followed by heme oncology. As per the heme oncologist recent note on 05/02/2018 discussion was held with the patient's son who is a physician's social worker assistant. He does not want the patient to undergo lung biopsy at this time. We will continue to monitor the lung nodules. I will continue to follow up with recommendations from heme oncology. Continue breathing treatments as needed for COPD. The patient currently appears comfortable without any significant complaints. Severe Pharyngeal Dysphagia History fo Esophageal stricture -Continue feeds through the PEG tube.- J tube port - but bilious fluid draining out of G tube port - will d/w GI - previously seen by Dr. Hossein EDGAR DVT - Continue Lovenox Failure to thrive, protein energy malnutrition - Patient with severe pharyngeal dysphagia, esophageal stricture - G/J tube in place flush with 60 cc free water every 8 hours and Vital 1.5 at 55/hr per nutrition recs - G-tube to gravity, reverse Trendelenburg while in bed Chronic systolic heart failure - clinically stable - 2D echo 02/23 showing EF 35% with anterior septal hypokinesis and biatrial dilation - Patient euvolemic on exam today - Pt would benefit from an SNEHA-I or ARB as well as spironolactone but BPs have been borderline hypotensive so will hold off Hypothyroidism - Continue home Levothyroxine--TSH is still elevated at 9 will increase Synthroid Adjustment disorder with depression - Continue Lexapro and Wellbutrin Coccygeal wound- stable - Wound care following - Position changes GERD, h/o Barretts - Continue PPI Anemia will transfuse 2 units packed red blood cells Hemoglobin is now 10 Borderline hypertension will be treated with the transfusion of 2 units packed red blood cells Blood pressure little better after transfusion Lovenox for DVT prophylaxis, renally adjusted. Code Status: Full code Discussed Condition With: RN and patient Discharge Planning: Safe placement (4) Hypothyroidism Qualifiers: Hypothyroidism type: unspecified Qualified Code(s): E03.9 - Hypothyroidism, unspecified
[2018-05-09 10:19] LABS: Burr Cells 1+; Eosinophils 6 % (0-4); Lymphocytes 25 % (9-44); Metamyelocytes 1 % (0-1); Monocytes 6 % (0-8); Myelocytes 1 % (0-0); Ovalocytes 1+; Platelet Morphology Normal (Normal); Promyelocyte 2 % (0-0)
[2018-05-09] MEDS: Levothyroxine 150 MCG Tablet J-TUBE SCH (14:07)
--- NOTE | 2018-05-09 17:00 | P.PNNP ---
Subjective Interval history: Renal function has improved. She is very weak appearing. Lying in bed. Physical Exam Vital signs: Vital Signs 05/08/18 17:23 05/08/18 20:00 05/08/18 20:53 Temperature 97.8 F Pulse Rate 73 70 Respiratory Rate 14 18 Blood Pressure 110/64 Pulse Oximetry 100 99 05/08/18 23:47 05/09/18 00:00 05/09/18 04:00 Temperature 98 F 98.2 F Pulse Rate 70 72 77 Respiratory Rate 18 18 18 Blood Pressure 112/58 L 102/55 L Pulse Oximetry 100 05/09/18 08:00 05/09/18 08:39 05/09/18 08:40 Temperature 97.1 F L Pulse Rate 70 63 Respiratory Rate 20 20 Blood Pressure 145/63 H Pulse Oximetry 96 99 05/09/18 12:00 05/09/18 16:14 05/09/18 16:15 Temperature 97 F L Pulse Rate 72 72 Respiratory Rate 20 20 Blood Pressure 140/58 L Pulse Oximetry 96 96 Intake & Output 05/08/18 05/09/18 05/09/18 18:59 06:59 18:59 Intake Total 3062 / 3062 2242 / 2242 Output Total 1400 / 1400 1300 / 1300 Balance 1662 / 1662 942 / 942 Weight 55.1 kg Intake: IV 1300 / 1300 1050 / 1050 NS Inj 1,000 ML @ 75 mls/hr IV. 1000 / 1000 1000 / 1000 CONT .[id number] [facility] Rx#:[id number] Avycaz Inj 0.94 GM In NS Inj 50 50 / 50 50 / 50 ML @ 25 mls/hr IV.SIG Q12H [facility] Rx#:[id number] NS Inj 250 ML @ 15 mls/hr IV. 250 / 250 SIG ONCE ANN Rx#:[id number] Oral 0 / 0 Tube Feeding 562 / 562 622 / 622 Tube Irrigant 120 / 120 Water Bolus Amount 400 / 400 400 / 400 Other 50 / 50 Intake (Blood Product) Amt 800 / 800 Rbc As-3 Leukoreduced Unit 400 / 400 [id number] Rbc As-3 Leukoreduced Unit 400 / 400 [id number] Output: Urine 550 / 550 300 / 300 Gastric Drainage 850 / 850 1000 / 1000 Gastrojejunostomy Tube 850 / 850 1000 / 1000 Jejunostomy Tube 0 / 0 Other: # Voids 2 2 # Incontinent Voids 1 # Urine Diapers 1 Date of Last Bowel Movement 05/08/18 05/08/18 # Incontinent Bowel Movements 1 Narrative: General Elderly patient in no acute distress. Frail. Able to answer questions. HEENT: tracheostomy in place with Mild secretions Cor : regular rhythm No Murmur Chest : Occ wheeze heard Abdomen soft, nontender, nondistended, normal bowel sounds, She has a J tube for feeding, G tube connected to gravity. Extremities no edema moves all extremities well Neuro: No focal deficit Assessment and Plan - Assessment (1) BETSEY (acute kidney injury) Code(s): N17.9 - Acute kidney failure, unspecified Status: Acute Plan: Possibility of allergic interstitial nephritis will have to be considered. On , she had eosinophilia. Avycaz has been stopped. Renal function has improved. UA noted. She has considerable GI output: apparently has history of gastroparesis. Hyponatremia has resolved, could have been hypovolemic hyponatremia. No need for additional workup. I will change IVF to 1/2NS with 1 amp of bicarbonate. Prognosis is guarded. Avoid nephrotoxic agents. (2) Pneumonia Code(s): J18.9 - Pneumonia, unspecified organism Status: Acute Plan: Management per medical team. Antibiotic stopped. - Attending Attestation I will sign off at this time.
[2018-05-09] MEDS: Sodium Bicarbonate 8.4% Inj 50 MEQ in Sodium Chloride 0.45 % Inj 1,000 ML IV.CONT SCH (18:02)
[2018-05-09] MEDS: Temazepam 15 MG Capsule J-TUBE PRN (20:52)
[2018-05-10] MEDS: Enoxaparin Inj 60 MG/0.6 ML Syringe SQ SCH ×2 (00:06→23:02)
[2018-05-10] MEDS: Hyoscyamine Liq Drops 0.125 MG/ML 15 ML Bottle SL SCH ×4 (05:30→23:01)
[2018-05-10] MEDS: Levothyroxine 150 MCG Tablet J-TUBE SCH (06:26)
--- NOTE | 2018-05-10 08:45 | P.PN ---
Subjective Interval history: Patient stable Hemoglobin improved after blood transfusion. Physical Exam Vital signs: Vital Signs 05/09/18 12:00 05/09/18 16:00 05/09/18 16:14 Temperature 97 F L 97.3 F L Pulse Rate 72 63 72 Respiratory Rate 20 20 20 Blood Pressure 140/58 L 102/51 L Pulse Oximetry 96 97 05/09/18 16:15 05/09/18 20:00 05/10/18 00:00 Temperature 96.6 F L 96.6 F L Pulse Rate 68 103 H Respiratory Rate 16 16 Blood Pressure 125/61 93/53 L Pulse Oximetry 96 97 97 05/10/18 04:00 05/10/18 08:00 Temperature 96.6 F L 97.9 F Pulse Rate 80 60 Respiratory Rate 16 20 Blood Pressure 100/60 110/53 L Pulse Oximetry 99 97 Intake & Output 05/09/18 05/10/18 05/10/18 18:59 06:59 18:59 Intake Total 1160 / 1160 Output Total 1800 / 1800 700 / 700 Balance -1800 / -1800 460 / 460 Weight 55.1 kg Intake: Oral 100 / 100 Tube Feeding 660 / 660 Water Bolus Amount 400 / 400 Output: Urine 800 / 800 Gastric Drainage 1000 / 1000 700 / 700 Gastrojejunostomy Tube 1000 / 1000 700 / 700 Other: # Incontinent Voids 4 Date of Last Bowel Movement 05/08/18 05/08/18 Narrative: General Elderly patient in no acute distress. Frail. awake and alert,talking HEENT: tracheostomy in place with Mild secretions Cor : regular rhythm No Murmur Chest : Occ wheeze heard Abdomen soft, nontender, nondistended, normal bowel sounds, G-J tube in place no signs of infection at site. Extremities no edema moves all extremities well Neuro: No focal deficit Results - Labs CBC & Chem 7: 05/09/18 07:33 05/09/18 07:33 Laboratory Results - last 24 hr 05/09/18 05/09/18 07:33 07:33 WBC 3.9 L RBC 3.45 L Hgb 10.2 L Hct 29.8 L MCV 86.4 MCH 29.6 MCHC 34.3 RDW 16.0 Plt Count 110 L MPV 9.4 Prelim Diff (Auto) Manual diff required WBC Differential Manual diff final Seg Neuts % (Manual) 51 Band Neuts % (Manual) 6 Lymphocytes % (Manual) 25 Monocytes % (Manual) 6 Eosinophils % (Manual) 6 H Basophils % (Manual) 2 Metamyelocytes % (Man) 1 Myelocytes % (Man) 1 H Promyelocytes % (Man) 2 H Abs Neuts (Manual) 2.4 Differential Comment . Platelet Estimate Low L Platelet Morphology Normal Ovalocytes 1+ H Pierce Cells 1+ H Sodium 140 Potassium 4.8 Chloride 110 H Carbon Dioxide 18.9 L Anion Gap 11 BUN 50 H Creatinine 1.46 H Estimated GFR 35 L Random Glucose 102 Calcium 8.2 L Phosphorus 4.1 Magnesium 1.9 Total Bilirubin 0.3 AST 15 ALT 23 Alkaline Phosphatase 114 Total Protein 6.0 L Albumin 2.1 L TSH 9.290 H Free T4 0.93 Microbiology 05/08/18 07:35 Sputum - Tracheal Aspirate Gram Stain - Final 05/08/18 07:35 Sputum - Tracheal Aspirate Sputum Culture - Preliminary Heavy growth normal respiratory andrew at 24 hours Assessment and Plan - Assessment (1) Pneumonia Code(s): J18.9 - Pneumonia, unspecified organism Status: Acute (2) GERD (gastroesophageal reflux disease) Code(s): K21.9 - Gastro-esophageal reflux disease without esophagitis Status: Acute (3) DVT (deep venous thrombosis) Code(s): I82.409 - Acute embolism and thrombosis of unspecified deep veins of unspecified lower extremity Status: Acute (4) Hypothyroidism Code(s): E03.9 - Hypothyroidism, unspecified Status: Chronic (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 Renal ultrasound shows chronic small kidneys, FF output from GJ tube Multidrug-resistant pseudomonas pneumonia Continue IV antibiotics as per ID recommendations for a total of 14 days till . Medications have been adjusted as the patient's is currently in acute kidney injury. Pulmonary is following the patient. COPD/respiratory failure S/P tracheostomy- capped - needs frequent suctioning Solitary lung nodules Myelodysplastic syndrome with anemia and thrombocytopenia - Heme/onc was consulted - S/P bone marrow biopsy 03/31 - Not a candidate for chemo - Monitor CBC periodically, - Transfuse as needed, if Hb<7.0 or patient symptomatic - The patient is being followed by heme oncology. As per the heme oncologist recent note on 05/02/2018 discussion was held with the patient's son who is a physician's it administrative assistant. He does not want the patient to undergo lung biopsy at this time. We will continue to monitor the lung nodules. I will continue to follow up with recommendations from heme oncology. Continue breathing treatments as needed for COPD. The patient currently appears comfortable without any significant complaints. Severe Pharyngeal Dysphagia History fo Esophageal stricture -Continue feeds through the PEG tube.- J tube port - but bilious fluid draining out of G tube port - will d/w GI - previously seen by Dr. Hossein EDGAR DVT - Continue Lovenox Failure to thrive, protein energy malnutrition - Patient with severe pharyngeal dysphagia, esophageal stricture - G/J tube in place flush with 60 cc free water every 8 hours and Vital 1.5 at 55/hr per nutrition recs - G-tube to gravity, reverse Trendelenburg while in bed Chronic systolic heart failure - clinically stable - 2D echo 02/23 showing EF 35% with anterior septal hypokinesis and biatrial dilation - Patient euvolemic on exam today - Pt would benefit from an SNEHA-I or ARB as well as spironolactone but BPs have been borderline hypotensive so will hold off Hypothyroidism - Continue home Levothyroxine--TSH is still elevated at 9 will increase Synthroid Adjustment disorder with depression - Continue Lexapro and Wellbutrin Coccygeal wound- stable - Wound care following - Position changes GERD, h/o Barretts - Continue PPI Anemia will transfuse 2 units packed red blood cells Hemoglobin is now 10 Borderline hypertension will be treated with the transfusion of 2 units packed red blood cells Blood pressure little better after transfusion Lovenox for DVT prophylaxis, renally adjusted. Code Status: Full Code. Discussed Condition With: Patient and nurse Miss Boudreaux Discharge Planning: Safe placement (4) Hypothyroidism Qualifiers: Hypothyroidism type: unspecified Qualified Code(s): E03.9 - Hypothyroidism, unspecified
[2018-05-10] MEDS: Simethicone 125 MG Chew Tablet J-TUBE PRN (09:41)
[2018-05-10] MEDS: Lactobacillus Acidophilus/L. Spores Tablet J-TUBE SCH ×3 (09:41→18:00)
[2018-05-10] MEDS: buPROPion 75 MG Tablet J-TUBE SCH ×2 (09:41→20:00)
[2018-05-10] MEDS: Ascorbic Acid 500 MG Tablet J-TUBE SCH ×2 (09:41→20:01)
[2018-05-10] MEDS: Sodium Bicarbonate 8.4% Inj 50 MEQ in Sodium Chloride 0.45 % Inj 1,000 ML IV.CONT SCH (11:00)
[2018-05-11] MEDS: Sodium Bicarbonate 8.4% Inj 50 MEQ in Sodium Chloride 0.45 % Inj 1,000 ML IV.CONT SCH ×2 (00:25→11:00)
[2018-05-11] MEDS: Hyoscyamine Liq Drops 0.125 MG/ML 15 ML Bottle SL SCH ×4 (03:25→21:41)
[2018-05-11] MEDS: Levothyroxine 150 MCG Tablet J-TUBE SCH (06:23)
--- NOTE | 2018-05-11 08:07 | P.PN ---
Subjective Interval history: in no acute distress. no fever. has some diarrhea- no nausea or vomiting. d/w the RN. Physical Exam Vital signs: Vital Signs 05/10/18 09:09 05/10/18 10:12 05/10/18 12:00 Temperature 97.8 F Pulse Rate 64 66 Respiratory Rate 17 18 14 Blood Pressure 98/50 L Pulse Oximetry 98 97 05/10/18 16:00 05/10/18 17:11 05/10/18 20:00 Temperature 98.0 F 96.1 F L Pulse Rate 70 78 65 Respiratory Rate 18 15 16 Blood Pressure 90/48 L 107/51 L Pulse Oximetry 98 97 05/11/18 00:00 05/11/18 00:01 05/11/18 04:00 Temperature 96.1 F L 96 F L Pulse Rate 59 L 78 Respiratory Rate 16 16 Blood Pressure 100/48 L 104/53 L Pulse Oximetry 96 96 98 Intake & Output 05/10/18 05/11/18 05/11/18 18:59 06:59 18:59 Intake Total 2150 / 2150 2210 / 2210 Output Total 1600 / 1600 1900 / 1900 Balance 550 / 550 310 / 310 Weight 55.1 kg Intake: IV 2050 / 2050 1050 / 1050 Sodium Bicarbonate 8.4% Inj 50 1050 / 1050 1050 / 1050 MEQ In 1/2 Normal Saline Inj 1, 000 ML @ 75 mls/hr IV.CONT . Q14H [facility] Rx#:[id number] Oral 100 / 100 100 / 100 Tube Feeding 660 / 660 Water Bolus Amount 400 / 400 Output: Urine 900 / 900 1000 / 1000 Stool 400 / 400 Gastric Drainage 700 / 700 500 / 500 Gastrojejunostomy Tube 700 / 700 500 / 500 Jejunostomy Tube 0 / 0 Other: # Voids 5 # Incontinent Voids 0 Date of Last Bowel Movement 05/10/18 05/11/18 # Bowel Movements 4 # Incontinent Bowel Movements 1 - Constitutional no acute distress - Routine Respiratory Exam Present: CTA bilaterally - Routine Cardiovascular Exam Present: RRR - Routine Abdominal Exam Present: soft - Routine Extremities Exam Comments: no pedal edema. - Routine Neurological Exam Present: alert, oriented X3 Results - Labs CBC & Chem 7: 05/09/18 07:33 05/09/18 07:33 Laboratory Results - last 24 hr 05/10/18 14:00 Stl C.difficile Tox PCR Negative St C. diff Tox Epid 027 Negative Microbiology 05/08/18 07:35 Sputum - Tracheal Aspirate Gram Stain - Final 05/08/18 07:35 Sputum - Tracheal Aspirate Sputum Culture - Final Heavy growth normal respiratory andrew Assessment and Plan - Assessment (1) Pneumonia Code(s): J18.9 - Pneumonia, unspecified organism Status: Acute (2) GERD (gastroesophageal reflux disease) Code(s): K21.9 - Gastro-esophageal reflux disease without esophagitis Status: Acute (3) DVT (deep venous thrombosis) Code(s): I82.409 - Acute embolism and thrombosis of unspecified deep veins of unspecified lower extremity Status: Acute (4) Hypothyroidism Code(s): E03.9 - Hypothyroidism, unspecified Status: Chronic (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 Renal ultrasound shows chronic small kidneys, FF output from GJ tube Multidrug-resistant pseudomonas pneumonia received IV antibiotics as per ID recommendations for a total of 14 days till . Pulmonary is following the patient. COPD/respiratory failure S/P tracheostomy- capped - needs frequent suctioning Solitary lung nodules Myelodysplastic syndrome with anemia and thrombocytopenia - Heme/onc was consulted - S/P bone marrow biopsy 03/31 - Not a candidate for chemo - Monitor CBC periodically, - Transfuse as needed, if Hb<7.0 or patient symptomatic - The patient is being followed by heme oncology. As per the heme oncologist recent note on 05/02/2018 discussion was held with the patient's son who is a physician's assistant professor of psychology. He does not want the patient to undergo lung biopsy at this time. We will continue to monitor the lung nodules. Continue breathing treatments as needed for COPD. The patient currently appears comfortable without any significant complaints. Severe Pharyngeal Dysphagia History fo Esophageal stricture -Continue feeds through the PEG tube.- J tube port - but bilious fluid draining out of G tube port - previously seen by Dr. Catalan RLE DVT - Continue Lovenox Failure to thrive, protein energy malnutrition - Patient with severe pharyngeal dysphagia, esophageal stricture - G/J tube in place flush with 60 cc free water every 8 hours and Vital 1.5 at 55/hr per nutrition recs - G-tube to gravity, reverse Trendelenburg while in bed Chronic systolic heart failure - clinically stable - 2D echo 02/23 showing EF 35% with anterior septal hypokinesis and biatrial dilation - Patient euvolemic on exam. - Pt would benefit from an SNEHA-I or ARB as well as spironolactone but BPs have been borderline hypotensive so will hold off Hypothyroidism - Continue home Levothyroxine--TSH is still elevated at 9 - Synthroid was increased- check TSH in 4 weeks. Adjustment disorder with depression - Continue Lexapro and Wellbutrin Coccygeal wound- stable - Wound care following - Position changes GERD, h/o Barretts - Continue PPI Anemia; transfused with 2 units packed red blood cells Hemoglobin improved. Diarrhea- C- diff negative- will start on Imodium as needed. Lovenox for DVT prophylaxis, renally adjusted. (4) Hypothyroidism Qualifiers: Hypothyroidism type: unspecified Qualified Code(s): E03.9 - Hypothyroidism, unspecified
[2018-05-11] MEDS: Simethicone 125 MG Chew Tablet J-TUBE PRN (09:29)
[2018-05-11] MEDS: Lactobacillus Acidophilus/L. Spores Tablet J-TUBE SCH ×3 (09:29→17:50)
[2018-05-11] MEDS: buPROPion 75 MG Tablet J-TUBE SCH ×2 (09:30→21:40)
[2018-05-11] MEDS: Ascorbic Acid 500 MG Tablet J-TUBE SCH ×2 (09:32→21:40)
--- NOTE | 2018-05-11 09:51 | P.DIET ---
Nutritional Evaluation Type of nutrition evaluation: follow-up Nutrition consult regarding: Tube Feeding Objective - Diagnosis Respiratory Failure - Objective % IBW: 99 (IBW = 120#) Body Weight Used for Calculations: Actual (54.1 kg) Energy Needs - Lower Range (kCal/kg): 28 Energy Needs - Upper Range (kCal/kg): 32 Lower Limit kCal/kg (kCals): 1,515 Upper Limit kCal/kg (kCals): 1,731 Lower Limit Protein Factor (Grams per Kg): 1.2 Upper Limit Protein Factor (Grams per Kg): 1.5 Lower Protein Needs (Protein): 65 Upper Protein Needs (Protein): 81 Dietitian Reviewed in Medical Record: Curent medications, Intake & Output, Labs , Medical history, Tube feeding Diet Order: NPO Objective Comments: Meds include Vit C, levsin, lactinex, synthroid, reglan, MVI, Zinc 220 03/19 esophagogastroduodenoscopy with esphageal dilation 03/21 panendoscopy Assessment Assessment: Pt. noted to have some diarrhea, wt. slightly decreased and +UOP. Recommend current TF of Vital 1.5 with goal rate of 55 mls/hr x 22 hours. Pt. continues on synthroid QD but md has increased strength due to elevated TSH. If diarrhea increases consider lomotil. Continue to monitor TFing, stool, wt. and labs. Recommendations: 1. Recommend current TF of Vital 1.5 with goal rate of 55 mls/hr x 22 hours. 2. If diarrhea increases consider lomotil. 3. Continue to monitor TFing, stool, wt. and labs. Dietitian to Monitor: Lab values, Intake & Output, Tube feeding tolerance, Weight change, Medical course
[2018-05-11] MEDS: Loperamide Liq 2 MG/10 ML UDC J-TUBE PRN (11:00)
[2018-05-11 14:30] LABS: Calcium 7.8 mg/dL (8.5-10.1); Carbon Dioxide 24.2 meq/L (21.0-32.0)
[2018-05-12] MEDS: Enoxaparin Inj 60 MG/0.6 ML Syringe SQ SCH (00:10)
[2018-05-12] MEDS: Morphine Sulfate Oral Liq 10 MG/0.5 ML Syringe SL PRN (00:11)
[2018-05-12] MEDS: Hyoscyamine Liq Drops 0.125 MG/ML 15 ML Bottle SL SCH ×4 (06:22→21:39)
[2018-05-12] MEDS: Levothyroxine 150 MCG Tablet J-TUBE SCH (06:22)
[2018-05-12] MEDS: Ascorbic Acid 500 MG Tablet J-TUBE SCH ×2 (09:08→20:19)
[2018-05-12] MEDS: Lactobacillus Acidophilus/L. Spores Tablet J-TUBE SCH ×3 (09:08→17:20)
[2018-05-12] MEDS: buPROPion 75 MG Tablet J-TUBE SCH ×2 (09:08→20:19)
--- NOTE | 2018-05-12 09:17 | P.PN ---
Subjective Interval history: in no acute distress. no new complaints. d/w the RN and no acute issues over night. Physical Exam Vital signs: Vital Signs 05/11/18 10:00 05/11/18 12:00 05/11/18 16:00 Temperature 97.7 F 97.8 F Pulse Rate 61 58 L Respiratory Rate 20 18 20 Blood Pressure 107/58 L 100/50 L Pulse Oximetry 96 96 05/11/18 20:00 05/11/18 20:07 Temperature 97.7 F Pulse Rate 66 Respiratory Rate 18 Blood Pressure 103/53 L Pulse Oximetry 98 98 Intake & Output 05/11/18 05/12/18 05/12/18 18:59 06:59 18:59 Intake Total 2585 / 2585 1462 / 1462 Output Total 2600 / 2600 1210 / 1210 Balance -15 / -15 252 / 252 Weight 61.7 kg Intake: IV 1425 / 1425 Oral 100 / 100 Tube Feeding 660 / 660 862 / 862 Water Bolus Amount 400 / 400 600 / 600 Output: Urine 850 / 850 885 / 885 Stool 550 / 550 Gastric Drainage 1200 / 1200 325 / 325 Gastrojejunostomy Tube 1200 / 1200 325 / 325 Other: # Voids 4 5 Date of Last Bowel Movement 05/11/18 # Bowel Movements 3 0 - Constitutional no acute distress - Routine Respiratory Exam Present: CTA bilaterally - Routine Cardiovascular Exam Present: RRR - Routine Abdominal Exam Present: soft - Routine Extremities Exam Comments: no pedal edema. - Routine Neurological Exam Present: alert Results - Labs CBC & Chem 7: 05/09/18 07:33 05/11/18 13:29 Laboratory Results - last 24 hr 05/11/18 13:29 Sodium 135 L Potassium 5.0 Chloride 103 Carbon Dioxide 24.2 Anion Gap 8 BUN 49 H Creatinine 1.31 H Estimated GFR 40 L Random Glucose 107 H Calcium 7.8 L Assessment and Plan - Assessment (1) Pneumonia Code(s): J18.9 - Pneumonia, unspecified organism Status: Acute (2) GERD (gastroesophageal reflux disease) Code(s): K21.9 - Gastro-esophageal reflux disease without esophagitis Status: Acute (3) DVT (deep venous thrombosis) Code(s): I82.409 - Acute embolism and thrombosis of unspecified deep veins of unspecified lower extremity Status: Acute (4) Hypothyroidism Code(s): E03.9 - Hypothyroidism, unspecified Status: Chronic (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 Renal ultrasound shows chronic small kidneys, Multidrug-resistant pseudomonas pneumonia received IV antibiotics as per ID recommendations for a total of 14 days till . Pulmonary is following the patient. COPD/respiratory failure S/P tracheostomy- capped - needs frequent suctioning Solitary lung nodules Myelodysplastic syndrome with anemia and thrombocytopenia - Heme/onc was consulted - S/P bone marrow biopsy 03/31 - Not a candidate for chemo - Monitor CBC periodically, - Transfuse as needed, if Hb<7.0 or patient symptomatic - The patient is being followed by heme oncology. As per the heme oncologist recent note on 05/02/2018 discussion was held with the patient's son who is a physician's speech correction assistant. He does not want the patient to undergo lung biopsy at this time. We will continue to monitor the lung nodules. Continue breathing treatments as needed for COPD. The patient currently appears comfortable without any significant complaints. Severe Pharyngeal Dysphagia History fo Esophageal stricture -Continue feeds through the PEG tube.- J tube port - minimal blood-tinged discharge from the site of feeding tube- - previously seen by Dr. Catalan; will consider GI reevaluation if doesn't improve. RLE DVT - Continue Lovenox Failure to thrive, protein energy malnutrition - Patient with severe pharyngeal dysphagia, esophageal stricture - G/J tube in place flush with 60 cc free water every 8 hours and Vital 1.5 at 55/hr per nutrition recs - G-tube to gravity, reverse Trendelenburg while in bed Chronic systolic heart failure - clinically stable - 2D echo 02/23 showing EF 35% with anterior septal hypokinesis and biatrial dilation - Patient euvolemic on exam. - Pt would benefit from an SNEHA-I or ARB as well as spironolactone but BPs have been borderline hypotensive so will hold off Hypothyroidism - Continue home Levothyroxine--TSH is still elevated at 9 - Synthroid was increased- check TSH in 4 weeks. Adjustment disorder with depression - Continue Lexapro and Wellbutrin Coccygeal wound- stable - Wound care following - Position changes GERD, h/o Barretts - Continue PPI Anemia; transfused with 2 units packed red blood cells Hemoglobin improved. Diarrhea- C- diff negative- started on Imodium as needed. Lovenox for DVT prophylaxis, renally adjusted. (4) Hypothyroidism Qualifiers: Hypothyroidism type: unspecified Qualified Code(s): E03.9 - Hypothyroidism, unspecified
--- NOTE | 2018-05-12 18:33 | P.PN ---
Subjective Interval history: Awake and on t Bar at 30 %. No fever. Tolerates feeds. Physical Exam Vital signs: Vital Signs 05/11/18 20:00 05/11/18 20:07 05/12/18 08:00 Temperature 97.7 F 98.8 F Pulse Rate 66 61 Respiratory Rate 18 18 Blood Pressure 103/53 L 114/56 L Pulse Oximetry 98 98 96 05/12/18 12:55 05/12/18 17:45 Temperature Pulse Rate Respiratory Rate Blood Pressure Pulse Oximetry 95 95 Intake & Output 05/11/18 05/12/18 05/12/18 18:59 06:59 18:59 Intake Total 2585 / 2585 1462 / 1462 1100 / 1100 Output Total 2600 / 2600 1210 / 1210 1525 / 1525 Balance -15 / -15 252 / 252 -425 / -425 Weight 61.7 kg Intake: IV 1425 / 1425 Oral 100 / 100 Tube Feeding 660 / 660 862 / 862 600 / 600 Water Bolus Amount 400 / 400 600 / 600 500 / 500 Output: Urine 850 / 850 885 / 885 1200 / 1200 Stool 550 / 550 Gastric Drainage 1200 / 1200 325 / 325 325 / 325 Gastrojejunostomy Tube 1200 / 1200 325 / 325 325 / 325 Other: # Voids 4 5 Date of Last Bowel Movement 05/11/18 05/11/18 # Bowel Movements 3 0 0 Narrative: General Elderly patient in no acute distress. Frail. awake and alert. HEENT: tracheostomy in place with few secretions Cor : regular rhythm No Murmur Chest : Occ wheeze heard bilaterally Abdomen soft, nontender, nondistended, normal bowel sounds, G-J tube in place no signs of infection at site. 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 Cont T Collar at 30 %. 2. Cont nebs with albuterol qid. PRN 3. CBC,BMP in am 4. Cont Levsin .125 mg qid prn. 5. Tube feeds at 55 CC. 6. Robinul 0.4 mg S/Q BID PRN 7. Antibiotics per ID 8. PT evaluation to increase activity
[2018-05-13] MEDS: Enoxaparin Inj 60 MG/0.6 ML Syringe SQ SCH (00:46)
[2018-05-13] MEDS: Hyoscyamine Liq Drops 0.125 MG/ML 15 ML Bottle SL SCH ×4 (04:55→21:20)
[2018-05-13] MEDS: Levothyroxine 150 MCG Tablet J-TUBE SCH (06:19)
[2018-05-13] MEDS: Morphine Sulfate Oral Liq 10 MG/0.5 ML Syringe SL PRN (06:20)
[2018-05-13 07:15] LABS: Baso % (Auto) 0.3 % (0.0-2.0); Eos # (Auto) 0.2 th/mm3 (0.0-0.4); Eos % (Auto) 6.4 % (0.0-4.0); Hematocrit 28.5 % (35.0-46.0); Hemoglobin 9.9 gm/dL (11.6-15.3); Lymph # (Auto) 0.9 th/mm3 (1.0-4.8); Lymph % (Auto) 28.9 % (9.0-44.0); Mean Corpuscular HGB Conc 34.7 % (32.0-36.0); Mean Corpuscular Hemoglobin 29.4 pg (27.0-34.0); Mean Corpuscular Volume 84.9 fL (80.0-100.0); Mean Platelet Volume 9.5 fL (7.0-11.0); Mono # (Auto) 0.2 th/mm3 (0.0-0.9); Mono % (Auto) 5.9 % (0.0-8.0); Neut # (Auto) 1.8 th/mm3 (1.8-7.7); Neut % (Auto) 58.5 % (16.0-70.0); Platelet Count 99 th/mm3 (150-450); Red Blood Count 3.35 mil/mm3 (4.00-5.30); Red Cell Distribution Width 15.1 % (11.6-17.2); White Blood Count 3.1 th/mm3 (4.0-11.0)
[2018-05-13 08:14] LABS: Acanthocytes Occ; Eosinophils 17 % (0-4); Lymphocytes 25 % (9-44); Metamyelocytes 1 % (0-1); Monocytes 3 % (0-8); Myelocytes 2 % (0-0)
[2018-05-13 08:15] LABS: Ovalocytes 1+
[2018-05-13] MEDS: buPROPion 75 MG Tablet J-TUBE SCH ×2 (08:19→21:19)
[2018-05-13] MEDS: Lactobacillus Acidophilus/L. Spores Tablet J-TUBE SCH ×3 (08:19→17:28)
[2018-05-13] MEDS: Ascorbic Acid 500 MG Tablet J-TUBE SCH ×2 (08:19→21:19)
--- NOTE | 2018-05-13 08:29 | P.PN ---
Subjective Interval history: patient is awake and alert, interactive tolerating tube feedings no complains Physical Exam Vital signs: Vital Signs 05/12/18 12:55 05/12/18 17:45 05/12/18 20:00 Temperature 97.8 F Pulse Rate 66 Respiratory Rate 18 Blood Pressure 133/63 Pulse Oximetry 95 95 96 05/13/18 00:00 05/13/18 04:00 05/13/18 07:32 Temperature 97.8 F 97.7 F 98.4 F Pulse Rate 85 67 65 Respiratory Rate 18 18 18 Blood Pressure 102/54 L 104/53 L 117/58 L Pulse Oximetry 96 98 98 Intake & Output 05/12/18 05/13/18 05/13/18 18:59 06:59 18:59 Intake Total 1100 / 1100 950 / 950 Output Total 1525 / 1525 Balance -425 / -425 950 / 950 Weight 61.7 kg Intake: Tube Feeding 600 / 600 550 / 550 Water Bolus Amount 500 / 500 400 / 400 Output: Urine 1200 / 1200 Gastric Drainage 325 / 325 Gastrojejunostomy Tube 325 / 325 Other: # Voids 2 Date of Last Bowel Movement 05/11/18 # Bowel Movements 0 Narrative: General Elderly patient in no acute distress. alert, ff all commands awake and alert. HEENT: tracheostomy in place Cor : regular rhythm No Murmur Chest - no rales, no wheezes Abdomen soft, nontender, nondistended, normal bowel sounds, G-J tube in place no signs of infection at site. Extremities no edema moves all extremities well Neuro: No focal deficit, moves all extremities equally Results - Labs CBC & Chem 7: 05/13/18 06:24 05/11/18 13:29 Laboratory Results - last 24 hr 05/13/18 06:24 WBC 3.1 L RBC 3.35 L Hgb 9.9 L Hct 28.5 L MCV 84.9 MCH 29.4 MCHC 34.7 RDW 15.1 Plt Count 99 L MPV 9.5 Prelim Diff (Auto) Slide review pending Neut % (Auto) 58.5 Lymph % (Auto) 28.9 Bartholomew % (Auto) 5.9 Eos % (Auto) 6.4 H Baso % (Auto) 0.3 Neut # (Auto) 1.8 Lymph # (Auto) 0.9 L Bartholomew # (Auto) 0.2 Eos # (Auto) 0.2 Baso # (Auto) 0.0 WBC Differential Manual diff final Seg Neuts % (Manual) 43 Band Neuts % (Manual) 8 H Lymphocytes % (Manual) 25 Monocytes % (Manual) 3 Eosinophils % (Manual) 17 H Basophils % (Manual) 1 Metamyelocytes % (Man) 1 Myelocytes % (Man) 2 H Abs Neuts (Manual) 1.7 L Differential Comment . 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 Renal ultrasound shows chronic small kidneys, Multidrug-resistant pseudomonas pneumonia S/P IV antibiotics as per ID recommendations for a total of 14 days -05/08. COPD/respiratory failure S/P tracheostomy- on 28% Fi02 - needs frequent suctioning - Pulmonary ff Solitary lung nodules Myelodysplastic syndrome with anemia and thrombocytopenia - Heme/onc was consulted - S/P bone marrow biopsy 03/31 - Not a candidate for chemo - Monitor CBC periodically, - Transfuse as needed, if Hb<7.0 or patient symptomatic - The patient is being followed by heme oncology. As per the heme oncologist recent note on 05/02/2018 discussion was held with the patient's son who is a physician's account assistant. He does not want the patient to undergo lung biopsy at this time. We will continue to monitor the lung nodules. Continue breathing treatments as needed for COPD. The patient currently appears comfortable without any significant complaints. Severe Pharyngeal Dysphagia History fo Esophageal stricture -Continue feeds through the PEG tube.- J tube port - minimal blood-tinged discharge from the site of feeding tube- - previously seen by Dr. Catalan; will consider GI reevaluation if doesn't improve. RLE DVT - Continue Lovenox Failure to thrive, protein energy malnutrition - Patient with severe pharyngeal dysphagia, esophageal stricture - G/J tube in place flush with 60 cc free water every 8 hours and Vital 1.5 at 55/hr per nutrition recs - G-tube to gravity, reverse Trendelenburg while in bed Chronic systolic heart failure - clinically stable - 2D echo 02/23 showing EF 35% with anterior septal hypokinesis and biatrial dilation - Patient euvolemic on exam. - Pt would benefit from an SNEHA-I or ARB as well as spironolactone but BPs have been borderline hypotensive so will hold off Hypothyroidism - Continue home Levothyroxine--TSH is still elevated at 9 - Synthroid was increased- check TSH in 4 weeks. Adjustment disorder with depression - Continue Lexapro and Wellbutrin Coccygeal wound- stable - Wound care following - Position changes GERD, h/o Barretts - Continue PPI Anemia; transfused with 2 units packed red blood cells Hemoglobin improved. Diarrhea- C- diff negative- started on Imodium as needed. Lovenox for DVT prophylaxis, renally adjusted. 73 yers old female (4) Hypothyroidism Qualifiers: Hypothyroidism type: unspecified Qualified Code(s): E03.9 - Hypothyroidism, unspecified
--- NOTE | 2018-05-13 12:49 | P.PN ---
Subjective Interval history: Up in a chair and able to talk. T Collar at 30 %. mild secretions. No fever. Physical Exam Vital signs: Vital Signs 05/12/18 12:55 05/12/18 17:45 05/12/18 20:00 Temperature 97.8 F Pulse Rate 66 Respiratory Rate 18 Blood Pressure 133/63 Pulse Oximetry 95 95 96 05/13/18 00:00 05/13/18 04:00 05/13/18 07:32 Temperature 97.8 F 97.7 F 98.4 F Pulse Rate 85 67 65 Respiratory Rate 18 18 18 Blood Pressure 102/54 L 104/53 L 117/58 L Pulse Oximetry 96 98 98 05/13/18 08:50 Temperature Pulse Rate Respiratory Rate Blood Pressure Pulse Oximetry 97 Intake & Output 05/12/18 05/13/18 05/13/18 18:59 06:59 18:59 Intake Total 1100 / 1100 950 / 950 Output Total 1525 / 1525 Balance -425 / -425 950 / 950 Weight 61.7 kg Intake: Tube Feeding 600 / 600 550 / 550 Water Bolus Amount 500 / 500 400 / 400 Output: Urine 1200 / 1200 Gastric Drainage 325 / 325 Gastrojejunostomy Tube 325 / 325 Other: # Voids 2 Date of Last Bowel Movement 05/11/18 # Bowel Movements 0 Narrative: General Elderly patient in no acute distress. alert, and talking. HEENT: tracheostomy in place in neck. Cor : regular rhythm No Murmur Chest - Occ wheezes in upper chest. Abdomen soft, nontender, nondistended, normal bowel sounds, G-J tube in place . Extremities no edema moves all extremities well Neuro: No focal deficit. Results - Labs CBC & Chem 7: 05/13/18 06:24 05/11/18 13:29 Laboratory Results - last 24 hr 05/13/18 06:24 WBC 3.1 L RBC 3.35 L Hgb 9.9 L Hct 28.5 L MCV 84.9 MCH 29.4 MCHC 34.7 RDW 15.1 Plt Count 99 L MPV 9.5 Prelim Diff (Auto) Slide review pending Neut % (Auto) 58.5 Lymph % (Auto) 28.9 [place] % (Auto) 5.9 Eos % (Auto) 6.4 H Baso % (Auto) 0.3 Neut # (Auto) 1.8 Lymph # (Auto) 0.9 L [place] # (Auto) 0.2 Eos # (Auto) 0.2 Baso # (Auto) 0.0 WBC Differential Manual diff final Seg Neuts % (Manual) 43 Band Neuts % (Manual) 8 H Lymphocytes % (Manual) 25 Monocytes % (Manual) 3 Eosinophils % (Manual) 17 H Basophils % (Manual) 1 Metamyelocytes % (Man) 1 Myelocytes % (Man) 2 H Abs Neuts (Manual) 1.7 L Differential Comment . 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 Cont T Collar at 30 %. 2. Cont nebs with albuterol qid. PRN 3. Chest XRay in am.CBC,BMP. 4. Cont Levsin .125 mg qid prn. 5. Tube feeds at 55 CC. 6. Robinul 0.4 mg S/Q BID PRN 7. D/C Antibiotics per ID 8. PT evaluation to increase activity
[2018-05-14] MEDS: Enoxaparin Inj 60 MG/0.6 ML Syringe SQ SCH (01:03)
[2018-05-14] MEDS: Morphine Sulfate Oral Liq 10 MG/0.5 ML Syringe SL PRN ×2 (01:03→20:16)
[2018-05-14] MEDS: Hyoscyamine Liq Drops 0.125 MG/ML 15 ML Bottle SL SCH ×4 (03:47→21:40)
[2018-05-14] MEDS: Levothyroxine 150 MCG Tablet J-TUBE SCH (05:41)
--- NOTE | 2018-05-14 08:59 | P.PNIM ---
Subjective Interval history: The pt was resting comfortably in bed. She requested her nurse. She had no acute complaints. Discussed with nursing. Physical Exam Vital signs: Vital Signs 05/13/18 17:14 05/13/18 20:00 05/14/18 00:00 Temperature 97.8 F 97.8 F Pulse Rate 60 74 Respiratory Rate 18 18 Blood Pressure 113/55 L 107/55 L Pulse Oximetry 97 99 98 05/14/18 04:00 Temperature 97.6 F Pulse Rate 64 Respiratory Rate 18 Blood Pressure 100/50 L Pulse Oximetry 98 Intake & Output 05/13/18 05/14/18 05/14/18 18:59 06:59 18:59 Intake Total 600 / 600 200 / 200 Output Total 750 / 750 Balance -150 / -150 200 / 200 Weight 61.7 kg Intake: Tube Feeding 600 / 600 Water Bolus Amount 200 / 200 Output: Gastric Drainage 750 / 750 Gastrojejunostomy Tube 750 / 750 Other: # Voids 2 Narrative: General: Elderly patient in no acute distress. HEENT: tracheostomy in place in neck. Cardiac: regular rhythm. No Murmur. Chest: Occ wheezes in upper chest. Abdomen: soft, nontender, nondistended, normal bowel sounds, G-J tube in place . Extremities: no edema. Neuro: No focal deficit. Moves extremities. Results - Labs CBC & Chem 7: 05/13/18 06:24 05/11/18 13:29 Assessment and Plan - Assessment (1) Pneumonia Code(s): J18.9 - Pneumonia, unspecified organism Status: Acute (2) GERD (gastroesophageal reflux disease) Code(s): K21.9 - Gastro-esophageal reflux disease without esophagitis Status: Acute (3) DVT (deep venous thrombosis) Code(s): I82.409 - Acute embolism and thrombosis of unspecified deep veins of unspecified lower extremity Status: Acute (4) Hypothyroidism Code(s): E03.9 - Hypothyroidism, unspecified Status: Chronic (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 Renal ultrasound shows chronic small kidneys -creatinine is stable, slightly improving. Multidrug-resistant pseudomonas pneumonia S/P IV antibiotics as per ID recommendations for a total of 14 days -05/08. COPD/respiratory failure S/P tracheostomy- on 28% Fi02 - needs frequent suctioning - Pulmonary following. -nebs as needed. Solitary lung nodules Myelodysplastic syndrome with anemia and thrombocytopenia - Heme/onc was consulted - S/P bone marrow biopsy 03/31 - Not a candidate for chemo - Monitor CBC periodically, - Transfuse as needed, if Hb<7 or patient symptomatic - The patient is being followed by heme oncology. As per the heme oncologist recent note on 05/02/2018 discussion was held with the patient's son who is a physician assistant professor of radiology. He does not want the patient to undergo lung biopsy at this time. We will continue to monitor the lung nodules. Continue breathing treatments as needed for COPD. The patient currently appears comfortable without any significant complaints. Severe Pharyngeal Dysphagia History of Esophageal stricture -Continue feeds through the PEG tube.- J tube port - minimal blood-tinged discharge from the site of feeding tube - previously seen by Dr. Catalan; will consider GI reevaluation if doesn't improve. RLE DVT - Continue Lovenox Failure to thrive, protein energy malnutrition - Patient with severe pharyngeal dysphagia, esophageal stricture - G/J tube in place flush with 60 cc free water every 8 hours and Vital 1.5 at 55/hr per nutrition recs - G-tube to gravity, reverse Trendelenburg while in bed Chronic systolic heart failure - clinically stable - 2D echo 02/23 showing EF 35% with anterior septal hypokinesis and biatrial dilation - Patient euvolemic on exam. - Pt would benefit from an SNEHA-I or ARB as well as spironolactone but BPs have been borderline hypotensive so will hold off Hypothyroidism - Continue home Levothyroxine--TSH is still elevated at 9 - Synthroid was increased- check TSH in 4 weeks. Adjustment disorder with depression - Continue Lexapro and Wellbutrin Coccygeal wound- stable - Wound care following - Position changes GERD, h/o Barretts - Continue PPI Anemia Transfused with 2 units packed red blood cells. -Hemoglobin improved. Diarrhea- C- diff negative. -started on Imodium as needed. Lovenox for DVT prophylaxis, renally adjusted. (4) Hypothyroidism Qualifiers: Hypothyroidism type: unspecified Qualified Code(s): E03.9 - Hypothyroidism, unspecified
[2018-05-14] MEDS: buPROPion 75 MG Tablet J-TUBE SCH ×2 (09:25→20:15)
[2018-05-14] MEDS: Ascorbic Acid 500 MG Tablet J-TUBE SCH ×2 (09:26→20:15)
[2018-05-14] MEDS: Lactobacillus Acidophilus/L. Spores Tablet J-TUBE SCH ×3 (09:26→17:05)
--- NOTE | 2018-05-14 10:36 | XR ---
EXAM DATE: 05/14/2018 12:00 AM EDT AGE/SEX: 73 years / Female INDICATIONS: Short of breath. CLINICAL DATA: This is the patient's subsequent encounter. Patient reports that signs and symptoms h ave been present for 3 weeks and indicates a pain score of 0/10. MEDICAL/SURGICAL HISTORY: Arthritis. Gastroesophageal reflux disease. Hypothyroidism. Ralph t's esophagus. Cholecystectomy. Tonsillectomy. Hernia repair. COMPARISON: [facility] – [place], CHEST 1V SINGLE AP, 05/07/2018. . FINDINGS: Stable tracheostomy. Persistent left lower lung zone airspace consolidation and probable trace left p leural effusion. Improved aeration of the right lower lung zone. Heart and mediastinal contours are s table. Remainder of exam is unchanged. CONCLUSION: 1. Persistent left lower lung zone airspace consolidation and probable trace left pleural effusion. 2. Improved aeration of the right lower lung zone. Electronically signed by: Chris Vieira MD 05/14/2018 10:35 AM EDT
[2018-05-15] MEDS: Enoxaparin Inj 60 MG/0.6 ML Syringe SQ SCH (00:52)
[2018-05-15] MEDS: Hyoscyamine Liq Drops 0.125 MG/ML 15 ML Bottle SL SCH ×4 (04:25→21:07)
[2018-05-15] MEDS: Levothyroxine 150 MCG Tablet J-TUBE SCH (06:56)
[2018-05-15] MEDS: Morphine Sulfate Oral Liq 10 MG/0.5 ML Syringe SL PRN (06:56)
--- NOTE | 2018-05-15 09:43 | P.PN ---
Subjective Interval history: Follow-up for chronic respiratory failure status post tracheostomy. Patient is currently doing well. Resting in bed. Denies any chest pain, shortness of breath, fever or chills. Physical Exam Vital signs: Vital Signs 05/14/18 12:00 05/14/18 15:50 05/14/18 20:00 Temperature 97.8 F 97.8 F 98.4 F Pulse Rate 72 68 74 Respiratory Rate 18 18 18 Blood Pressure 94/62 L 101/60 112/56 L Pulse Oximetry 97 97 98 05/14/18 21:15 05/15/18 00:00 05/15/18 04:00 Temperature 98.1 F 97.9 F Pulse Rate 71 98 H Respiratory Rate 18 18 Blood Pressure 101/50 L 103/51 L Pulse Oximetry 98 98 98 05/15/18 04:58 Temperature Pulse Rate Respiratory Rate Blood Pressure Pulse Oximetry 98 Intake & Output 05/14/18 05/15/18 05/15/18 18:59 06:59 18:59 Intake Total 1070 / 1070 950 / 950 Output Total 2375 / 2375 Balance -1305 / -1305 950 / 950 Weight 61.7 kg Intake: Oral 100 / 100 Tube Feeding 600 / 600 550 / 550 Tube Irrigant 120 / 120 Water Bolus Amount 200 / 200 400 / 400 Other 50 / 50 Output: Urine 825 / 825 Stool 550 / 550 Urine/Stool Mix 250 / 250 Gastric Drainage 750 / 750 Gastrojejunostomy Tube 750 / 750 Jejunostomy Tube 0 / 0 Other: # Voids 3 2 # Incontinent Voids 0 # Urine Diapers 0 Date of Last Bowel Movement 05/11/18 # Bowel Movements 0 1 # Incontinent Bowel Movements 1 Narrative: General: Elderly patient in no acute distress. HEENT: tracheostomy in place in neck. Cardiac: regular rhythm. No Murmur. Chest: Occ wheezes in upper chest. Abdomen: soft, nontender, nondistended, normal bowel sounds, G-J tube in place . Extremities: no edema. Neuro: No focal deficit. Moves extremities. Results - Labs CBC & Chem 7: 05/13/18 06:24 05/11/18 13:29 - Imaging Impressions Chest X-Ray 05/14/18 00:00 CONCLUSION: 1. Persistent left lower lung zone airspace consolidation and probable trace left pleural effusion. 2. Improved aeration of the right lower lung zone. 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 Renal ultrasound shows chronic small kidneys -creatinine is stable, slightly improving. Multidrug-resistant pseudomonas pneumonia S/P IV antibiotics as per ID recommendations for a total of 14 days -05/08. COPD/respiratory failure S/P tracheostomy- on 28% Fi02 - needs frequent suctioning - Pulmonary following. - nebs as needed. Solitary lung nodules Myelodysplastic syndrome with anemia and thrombocytopenia - Heme/onc was consulted - S/P bone marrow biopsy 03/31 - Not a candidate for chemo - Monitor CBC periodically, - Transfuse as needed, if Hb<7 or patient symptomatic - The patient is being followed by heme oncology. As per the heme oncologist recent note on 05/02/2018 discussion was held with the patient's son who is a physician cafe assistant. He does not want the patient to undergo lung biopsy at this time. We will continue to monitor the lung nodules. Continue breathing treatments as needed for COPD. The patient currently appears comfortable without any significant complaints. Severe Pharyngeal Dysphagia History of Esophageal stricture - Continue feeds through the PEG tube - J tube port - minimal blood-tinged discharge from the site of feeding tube - previously seen by Dr. Catalan; will consider GI reevaluation if doesn't improve. RLE DVT - Continue Lovenox CKD stage III Mild Hyperkalemia -Creatinine 1.31, GFR 40. -Potassium 5.0 on 05/11/2018. -Will obtain BMP today 05/15/2018. Failure to thrive, protein energy malnutrition - Patient with severe pharyngeal dysphagia, esophageal stricture - G/J tube in place flush with 60 cc free water every 8 hours and Vital 1.5 at 55/hr per nutrition recs - G-tube to gravity, reverse Trendelenburg while in bed Chronic systolic heart failure - clinically stable - 2D echo 02/23 showing EF 35% with anterior septal hypokinesis and biatrial dilation - Patient euvolemic on exam. - Pt would benefit from an SNEHA-I or ARB as well as spironolactone but BPs have been borderline hypotensive so will hold off Hypothyroidism - Continue home Levothyroxine--TSH is still elevated at 9 - Synthroid was increased- check TSH in 4 weeks. Adjustment disorder with depression - Continue Lexapro and Wellbutrin Coccygeal wound- stable - Wound care following - Position changes GERD, h/o Barretts - Continue PPI Anemia Transfused with 2 units packed red blood cells. -Hemoglobin improved. Diarrhea- C- diff negative. -started on Imodium as needed. Lovenox for DVT prophylaxis, renally adjusted. (4) Hypothyroidism Qualifiers: Hypothyroidism type: unspecified Qualified Code(s): E03.9 - Hypothyroidism, unspecified
[2018-05-15] MEDS: Simethicone 125 MG Chew Tablet J-TUBE PRN (09:51)
[2018-05-15] MEDS: Loperamide Liq 2 MG/10 ML UDC J-TUBE PRN (09:51)
[2018-05-15] MEDS: Ascorbic Acid 500 MG Tablet J-TUBE SCH ×2 (09:51→20:22)
[2018-05-15] MEDS: Lactobacillus Acidophilus/L. Spores Tablet J-TUBE SCH ×3 (09:51→17:15)
[2018-05-15] MEDS: buPROPion 75 MG Tablet J-TUBE SCH ×2 (09:52→20:22)
[2018-05-15 10:17] LABS: Hematocrit 29.7 % (35.0-46.0); Hemoglobin 10.1 gm/dL (11.6-15.3)
[2018-05-15 10:48] LABS: Calcium 8.8 mg/dL (8.5-10.1); Carbon Dioxide 25.8 meq/L (21.0-32.0); Potassium 5.4 meq/L (3.5-5.1)
[2018-05-15] MEDS ORDERED: LORazepam 1 MG Tablet J-TUBE PRN (13:34)
[2018-05-15] MEDS: Metoclopramide 10 MG Tablet J-TUBE SCH ×2 (14:00→21:06)
[2018-05-15] MEDS ORDERED: WATER IV.CONT ONE ×2 (15:00)
[2018-05-15] MEDS ORDERED: INSULIN HUMAN REGULAR IV.CONT ONE ×2 (15:00)
[2018-05-15] MEDS ORDERED: RESP: Albuterol Concentrated 2.5 MG/0.5 ML Neb NEB ONE (15:00)
[2018-05-15] MEDS ORDERED: DEXTROSE 10% IV.CONT ONE ×2 (15:00)
--- NOTE | 2018-05-15 15:34 | P.PNNP ---
Subjective Interval history: patient was seen and examined. Frail. G tube drain, J tube feeding. Physical Exam Vital signs: Vital Signs 05/14/18 15:50 05/14/18 20:00 05/14/18 21:15 Temperature 97.8 F 98.4 F Pulse Rate 68 74 Respiratory Rate 18 18 Blood Pressure 101/60 112/56 L Pulse Oximetry 97 98 98 05/15/18 00:00 05/15/18 04:00 05/15/18 04:58 Temperature 98.1 F 97.9 F Pulse Rate 71 98 H Respiratory Rate 18 18 Blood Pressure 101/50 L 103/51 L Pulse Oximetry 98 98 98 05/15/18 08:00 05/15/18 09:34 05/15/18 10:23 Temperature 98.5 F Pulse Rate 80 Respiratory Rate 18 18 Blood Pressure 110/58 L Pulse Oximetry 98 05/15/18 12:00 Temperature 98.6 F Pulse Rate 78 Respiratory Rate 18 Blood Pressure 114/54 L Pulse Oximetry Intake & Output 05/14/18 05/15/18 05/15/18 18:59 06:59 18:59 Intake Total 1070 / 1070 950 / 950 Output Total 2375 / 2375 Balance -1305 / -1305 950 / 950 Weight 61.7 kg Intake: Oral 100 / 100 Tube Feeding 600 / 600 550 / 550 Tube Irrigant 120 / 120 Water Bolus Amount 200 / 200 400 / 400 Other 50 / 50 Output: Urine 825 / 825 Stool 550 / 550 Urine/Stool Mix 250 / 250 Gastric Drainage 750 / 750 Gastrojejunostomy Tube 750 / 750 Jejunostomy Tube 0 / 0 Other: # Voids 3 2 # Incontinent Voids 0 # Urine Diapers 0 Date of Last Bowel Movement 05/11/18 # Bowel Movements 0 1 # Incontinent Bowel Movements 1 Narrative: General: Elderly patient in no acute distress. HEENT: tracheostomy in place in neck. Cardiac: regular rhythm. No Murmur. Chest: Occ wheezes in upper chest. Abdomen: soft, nontender, nondistended, normal bowel sounds, G-J tube in place . Extremities: no edema. Neuro: No focal deficit. Moves extremities. Assessment and Plan - Assessment (1) BETSEY (acute kidney injury) Code(s): N17.9 - Acute kidney failure, unspecified Status: Acute Plan: Continue supportive care. She has considerable GI output: apparently has history of gastroparesis. Hyponatremia has resolved, could have been hypovolemic hyponatremia. No need for additional workup. Prognosis is guarded. Avoid nephrotoxic agents. (2) Pneumonia Code(s): J18.9 - Pneumonia, unspecified organism Status: Acute Plan: Management per medical team. Antibiotic stopped. - Plan , Continue supportive care. Some fluctuation in the renal function is noted.
[2018-05-15] MEDS ORDERED: Lidocaine 1% Inj 50 ML Vial I-DERMAL ONE (16:30)
--- NOTE | 2018-05-15 18:40 | P.PN ---
Subjective Interval history: She is alert and using the Pm valve. On a T collar at 30 % No complaints.Off Antibiotics Physical Exam Vital signs: Vital Signs 05/14/18 20:00 05/14/18 21:15 05/15/18 00:00 Temperature 98.4 F 98.1 F Pulse Rate 74 71 Respiratory Rate 18 18 Blood Pressure 112/56 L 101/50 L Pulse Oximetry 98 98 98 05/15/18 04:00 05/15/18 04:58 05/15/18 08:00 Temperature 97.9 F 98.5 F Pulse Rate 98 H 80 Respiratory Rate 18 18 Blood Pressure 103/51 L 110/58 L Pulse Oximetry 98 98 05/15/18 09:34 05/15/18 10:23 05/15/18 12:00 Temperature 98.6 F Pulse Rate 78 Respiratory Rate 18 18 Blood Pressure 114/54 L Pulse Oximetry 98 05/15/18 16:01 Temperature Pulse Rate 64 Respiratory Rate 16 Blood Pressure Pulse Oximetry Intake & Output 05/14/18 05/15/18 05/15/18 18:59 06:59 18:59 Intake Total 1070 / 1070 950 / 950 500.1 / 500.1 Output Total 2375 / 2375 Balance -1305 / -1305 950 / 950 500.1 / 500.1 Weight 61.7 kg Intake: IV 500.1 / 500.1 NovoLIN R Inj 10 UNITS In D10W 500.1 / 500.1 Inj 500 ML @ 500 mls/hr IV.CONT .Q1H1M ONE Rx#:[id number] Oral 100 / 100 Tube Feeding 600 / 600 550 / 550 Tube Irrigant 120 / 120 Water Bolus Amount 200 / 200 400 / 400 Other 50 / 50 Output: Urine 825 / 825 Stool 550 / 550 Urine/Stool Mix 250 / 250 Gastric Drainage 750 / 750 Gastrojejunostomy Tube 750 / 750 Jejunostomy Tube 0 / 0 Other: # Voids 3 2 # Incontinent Voids 0 # Urine Diapers 0 Date of Last Bowel Movement 05/11/18 05/15/18 # Bowel Movements 0 1 # Incontinent Bowel Movements 1 Narrative: General: Elderly patient alert in no acute distress. HEENT: tracheostomy in place. Mild secretions Cardiac: regular rhythm. No Murmur. Chest: Occ wheezes in upper chest. Basal crackles. Abdomen: soft, nontender, nondistended, normal bowel sounds, G-J tube in place . Extremities: no edema. Neuro: No focal deficit. Moves extremities. Results - Labs CBC & Chem 7: 05/15/18 09:35 05/15/18 09:35 Laboratory Results - last 24 hr 05/15/18 05/15/18 09:35 09:35 Hgb 10.1 L Hct 29.7 L Sodium 134 L Potassium 5.4 H Chloride 99 Carbon Dioxide 25.8 Anion Gap 9 BUN 66 H Creatinine 1.48 H Estimated GFR 35 L Random Glucose 106 Calcium 8.8 Assessment and Plan - Assessment (1) Respiratory failure Code(s): J96.90 - Respiratory failure, unspecified, unspecified whether with hypoxia or hypercapnia Status: Acute (2) Pneumonia Code(s): J18.9 - Pneumonia, unspecified organism Status: Acute (3) Status post trachelectomy Code(s): Z90.710 - Acquired absence of both cervix and uterus Status: Acute (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 Cont T Collar at 28 %. 2. Cont nebs with albuterol qid. PRN 3. CBC,BMP Saturday. 4. Cont Levsin .125 mg qid prn. 5. Tube feeds at 55 CC. 6. Robinul 0.4 mg S/Q BID PRN 7. Up in Chair daily 8. PT evaluation to increase activity
[2018-05-16] MEDS: Enoxaparin Inj 60 MG/0.6 ML Syringe SQ SCH (00:21)
[2018-05-16] MEDS: Hyoscyamine Liq Drops 0.125 MG/ML 15 ML Bottle SL SCH ×4 (03:44→21:13)
[2018-05-16] MEDS: Metoclopramide 10 MG Tablet J-TUBE SCH ×3 (05:08→21:12)
[2018-05-16] MEDS: Levothyroxine 150 MCG Tablet J-TUBE SCH (05:09)
[2018-05-16 07:28] LABS: Albumin 2.5 g/dL (3.4-5.0); Calcium 8.7 mg/dL (8.5-10.1); Potassium 5.3 meq/L (3.5-5.1)
[2018-05-16 07:29] LABS: Phosphorus 5.8 mg/dL (2.5-4.9)
[2018-05-16] MEDS: buPROPion 75 MG Tablet J-TUBE SCH ×2 (09:00→20:17)
[2018-05-16] MEDS: Ascorbic Acid 500 MG Tablet J-TUBE SCH ×2 (09:00→20:17)
[2018-05-16] MEDS: Lactobacillus Acidophilus/L. Spores Tablet J-TUBE SCH ×3 (09:00→17:56)
--- NOTE | 2018-05-16 09:16 | P.PN ---
Subjective Interval history: This is a pleasant patient with chronic respiratory failure status post Tracheostomy, seen by Nephrology specialist yesterday, doctor Mamta, with diagnosis of BETSEY, recommended to continue supportive care considerable GI output, apparently has history of gastroparesis, ophthalmologist retina specialist following, with diagnosis of Respiratory failure, Pneumonia, Status post Tracheostomy, Carcinoma of supraglottis, recommended to continue T Collar at 28%, Bronchodilator, Levsin .125 mg QID, Tube feedings, Robinul 0.4 SQ BID. reculture trach secretions. Physical Exam Vital signs: Vital Signs 05/15/18 09:34 05/15/18 10:23 05/15/18 12:00 Temperature 98.6 F Pulse Rate 78 Respiratory Rate 18 18 Blood Pressure 114/54 L Pulse Oximetry 98 05/15/18 16:01 05/15/18 20:00 05/15/18 22:10 Temperature 96.9 F L Pulse Rate 64 69 Respiratory Rate 16 16 Blood Pressure 109/51 L Pulse Oximetry 98 98 Intake & Output 05/15/18 05/16/18 05/16/18 18:59 06:59 18:59 Intake Total 1760.1 / 1760.1 1260 / 1260 Output Total 2600 / 2600 1800 / 1800 Balance -839.9 / -839.9 -540 / -540 Weight 55.8 kg Intake: IV 500.1 / 500.1 NovoLIN R Inj 10 UNITS In D10W 500.1 / 500.1 Inj 500 ML @ 500 mls/hr IV.CONT .Q1H1M ONE Rx#:[id number] Oral 100 / 100 100 / 100 Tube Feeding 660 / 660 660 / 660 Water Bolus Amount 500 / 500 500 / 500 Output: Urine 750 / 750 800 / 800 Stool 500 / 500 Gastric Drainage 1350 / 1350 1000 / 1000 Gastrojejunostomy Tube 1350 / 1350 1000 / 1000 Other: # Voids 4 Date of Last Bowel Movement 05/15/18 05/15/18 # Bowel Movements 3 Narrative: General: Elderly patient alert in no acute distress. HEENT: tracheostomy in place. Mild secretions Cardiac: regular rhythm. No Murmur. Chest: Decreased breath sounds bilateral, transmitted sounds from tracheostomy. Abdomen: soft, nontender, nondistended, normal bowel sounds, G-J tube in place . Extremities: no edema. Neuro: No focal deficit. Moves extremities. Results - Labs CBC & Chem 7: 05/15/18 09:35 05/16/18 06:48 Laboratory Results - last 24 hr 05/15/18 05/15/18 05/16/18 09:35 09:35 06:48 Hgb 10.1 L Hct 29.7 L Sodium 134 L 131 L Potassium 5.4 H 5.3 H Chloride 99 96 L Carbon Dioxide 25.8 24.0 Anion Gap 9 11 BUN 66 H 74 H Creatinine 1.48 H 1.65 H Estimated GFR 35 L 31 L Random Glucose 106 109 H Calcium 8.8 8.7 Phosphorus 5.8 H Albumin 2.5 L Assessment and Plan - Assessment (1) Pneumonia Code(s): J18.9 - Pneumonia, unspecified organism Status: Acute (2) GERD (gastroesophageal reflux disease) Code(s): K21.9 - Gastro-esophageal reflux disease without esophagitis Status: Acute (3) DVT (deep venous thrombosis) Code(s): I82.409 - Acute embolism and thrombosis of unspecified deep veins of unspecified lower extremity Status: Acute (4) Hypothyroidism Code(s): E03.9 - Hypothyroidism, unspecified Status: Chronic (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 Renal ultrasound shows chronic small kidneys -creatinine is stable, slightly improving. Multidrug-resistant pseudomonas pneumonia S/P IV antibiotics as per ID recommendations for a total of 14 days -05/08. COPD/respiratory failure S/P tracheostomy- on 28% Fi02 - needs frequent suctioning - Pulmonary following. - nebs as needed. Solitary lung nodules Myelodysplastic syndrome with anemia and thrombocytopenia - Heme/onc was consulted - S/P bone marrow biopsy 03/31 - Not a candidate for chemo - Monitor CBC periodically, - Transfuse as needed, if Hb<7 or patient symptomatic - The patient is being followed by heme oncology. As per the heme oncologist recent note on 05/02/2018 discussion was held with the patient's son who is a physician assistant vice president. He does not want the patient to undergo lung biopsy at this time. We will continue to monitor the lung nodules. Continue breathing treatments as needed for COPD. The patient currently appears comfortable without any significant complaints. Severe Pharyngeal Dysphagia History of Esophageal stricture - Continue feeds through the PEG tube - J tube port - minimal blood-tinged discharge from the site of feeding tube - previously seen by Dr. Catalan; will consider GI reevaluation if doesn't improve. RLE DVT - Continue Lovenox CKD stage III Mild Hyperkalemia -Seen by Nephrology specialist yesterday, doctor Mamta, with diagnosis of BETSEY, recommended to continue supportive care considerable GI output, apparently has history of gastroparesis. Failure to thrive, protein energy malnutrition - Patient with severe pharyngeal dysphagia, esophageal stricture - G/J tube in place flush with 60 cc free water every 8 hours and Vital 1.5 at 55/hr per nutrition recs - G-tube to gravity, reverse Trendelenburg while in bed Chronic systolic heart failure - clinically stable - 2D echo 02/23 showing EF 35% with anterior septal hypokinesis and biatrial dilation - Patient euvolemic on exam. - Pt would benefit from an SNEHA-I or ARB as well as spironolactone but BPs have been borderline hypotensive so will hold off - ophthalmologist retina specialist following, with diagnosis of Respiratory failure, Pneumonia, Status post Tracheostomy, Carcinoma of supraglottis, recommended to continue T Collar at 28%, Bronchodilator, Levsin .125 mg QID, Tube feedings, Robinul 0.4 SQ BID. reculture trach secretions. Hypothyroidism - Continue home Levothyroxine--TSH is still elevated at 9 - Synthroid was increased- check TSH in 4 weeks. Adjustment disorder with depression - Continue Lexapro and Wellbutrin Coccygeal wound- stable - Wound care following - Position changes GERD, h/o Barretts - Continue PPI Anemia Transfused with 2 units packed red blood cells. -Hemoglobin improved. Diarrhea- C- diff negative. -started on Imodium as needed. Lovenox for DVT prophylaxis, renally adjusted. Code Status: Full code. Discussed Condition With: Nurse Miss Boudreaux Discharge Planning: Safe placement (4) Hypothyroidism Qualifiers: Hypothyroidism type: unspecified Qualified Code(s): E03.9 - Hypothyroidism, unspecified
[2018-05-16] MEDS: Loperamide Liq 2 MG/10 ML UDC J-TUBE PRN (10:23)
--- NOTE | 2018-05-16 13:01 | P.PN ---
Subjective Interval history: She is up in a chair. On T bar and FIo2 30 % No change overall Physical Exam Vital signs: Vital Signs 05/15/18 16:01 05/15/18 20:00 05/15/18 22:10 Temperature 96.9 F L Pulse Rate 64 69 Respiratory Rate 16 16 Blood Pressure 109/51 L Pulse Oximetry 98 98 05/16/18 06:00 05/16/18 08:00 05/16/18 10:00 Temperature 98.4 F Pulse Rate 88 Respiratory Rate 20 18 Blood Pressure 98/47 L Pulse Oximetry 99 98 Intake & Output 05/15/18 05/16/18 05/16/18 18:59 06:59 18:59 Intake Total 1760.1 / 1760.1 1260 / 1260 Output Total 2600 / 2600 1800 / 1800 Balance -839.9 / -839.9 -540 / -540 Weight 55.8 kg Intake: IV 500.1 / 500.1 NovoLIN R Inj 10 UNITS In D10W 500.1 / 500.1 Inj 500 ML @ 500 mls/hr IV.CONT .Q1H1M ONE Rx#:[id number] Oral 100 / 100 100 / 100 Tube Feeding 660 / 660 660 / 660 Water Bolus Amount 500 / 500 500 / 500 Output: Urine 750 / 750 800 / 800 Stool 500 / 500 Gastric Drainage 1350 / 1350 1000 / 1000 Gastrojejunostomy Tube 1350 / 1350 1000 / 1000 Other: # Voids 4 Date of Last Bowel Movement 05/15/18 05/15/18 05/16/18 # Bowel Movements 3 Narrative: General: Elderly patient , pale alert in no acute distress. HEENT: tracheostomy in place. Mild white secretions Cardiac: regular rhythm. No Murmur. Chest: Few Basal crackles. Abdomen: soft, nontender, nondistended, normal bowel sounds, G-J tube in place . Extremities: no edema. Neuro: No focal deficit. Moves extremities. Results - Labs CBC & Chem 7: 05/15/18 09:35 05/16/18 06:48 Laboratory Results - last 24 hr 05/16/18 06:48 Sodium 131 L Potassium 5.3 H Chloride 96 L Carbon Dioxide 24.0 Anion Gap 11 BUN 74 H Creatinine 1.65 H Estimated GFR 31 L Random Glucose 109 H Calcium 8.7 Phosphorus 5.8 H Albumin 2.5 L Assessment and Plan - Assessment (1) Respiratory failure Code(s): J96.90 - Respiratory failure, unspecified, unspecified whether with hypoxia or hypercapnia Status: Acute (2) Pneumonia Code(s): J18.9 - Pneumonia, unspecified organism Status: Acute (3) Status post trachelectomy Code(s): Z90.710 - Acquired absence of both cervix and uterus Status: Acute (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 Cont T Collar at 28 %. 2. Cont nebs with albuterol qid. PRN 3. CBC,BMP Saturday. 4. Cont Levsin .125 mg qid prn. 5. Tube feeds at 55 CC. 6. Robinul 0.4 mg S/Q BID PRN 7. Up in Chair daily 8. Reculture trach secretions
[2018-05-16] MEDS: Morphine Sulfate Oral Liq 10 MG/0.5 ML Syringe SL PRN (16:14)
[2018-05-16] MEDS: Clindamycin 600 mg/NS Premix 600 MG/50 ML PIGGYBACK IV.SIG SCH (18:00)
--- NOTE | 2018-05-16 19:07 | MB ---
cc: Adilene Flores DPM DATE: 05/16/2018 CHIEF COMPLAINT: Right hallux infected ingrown nail. HISTORY OF PRESENT ILLNESS: Ms. Henson is admitted currently for chronic respiratory failure and tracheotomy placement. She has complained to her primary physician about pain in the right hallux and there was concern of possible infection. PAST MEDICAL HISTORY: Include GERD, Rendon esophagitis, hypothyroidism, history of squamous cell carcinoma, esophageal stricture, vent-dependent respiratory failure, recurrent aspiration pneumonia. PAST SURGICAL HISTORY: Includes hernia repair, tonsillectomy, adenoidectomy, esophageal dilations and endoscopies. FAMILY HISTORY: Noncontributory. SOCIAL HISTORY: The patient denies any alcohol or drug abuse. ALLERGIES: EPINEPHRINE, PENICILLIN, PEANUTS, SOY AND LEGUMES. MEDICATIONS: Please see list. VITAL SIGNS: Temperature is 98.4, pulse 88, respiratory rate 18, blood pressure 98/47, pulse oximetry 98 on 5 liters of air with a trach collar. LABORATORY DATA: No labs drawn today. PHYSICAL EXAMINATION: The patient has nonpalpable DP and PT pulses. Capillary refill time is less than 3 seconds. Skin is cool to touch. The left foot is unremarkable. The right foot, the medial hallux does show some inflammation, periwound erythema with an ingrown nail on the medial border. The nail is elongated, thickened and appears to be irritating the lateral border as well. PROCEDURE NOTE: The procedure was discussed with the patient in detail. The toe was cleansed using alcohol swabs and 5 mL of 1% lidocaine plain were then injected around the toe. After a period of time, anesthesia was achieved and a ring tourniquet was applied to the toe. A sharp slant back avulsion was performed aggressively of the medial hallux and the entire nail was trimmed, including the lateral corner. The nail had been cutting into the skin and there was a small wound noted. No purulence and no deep probing. The ring tourniquet was removed. There was a prompt hyperemic response to the right digit. An appropriate dressing of bacitracin and gauze was applied. The patient tolerated the procedure well. ASSESSMENT AND PLAN: 1. Right hallux paronychia. - Status post bedside partial nail avulsion. Procedure was kept minimal to help with infection, but not as to create a larger wound for the patient to heal given her circulation status. - Wound care orders placed with nursing staff. The patient is to be given Ancef over the next 48 hours. We will monitor the patient closely while in house. Thank you for this consultation and allowing me to be involved in this patient's care. GISELLE Mckeon , 04:40 PM , 04:49 PM [email or web address]
[2018-05-16] MEDS: Temazepam 15 MG Capsule J-TUBE PRN (20:17)
[2018-05-17] MEDS: Enoxaparin Inj 60 MG/0.6 ML Syringe SQ SCH (01:10)
[2018-05-17] MEDS: Clindamycin 600 mg/NS Premix 600 MG/50 ML PIGGYBACK IV.SIG SCH ×3 (01:53→17:15)
[2018-05-17] MEDS: Hyoscyamine Liq Drops 0.125 MG/ML 15 ML Bottle SL SCH ×4 (05:11→21:35)
[2018-05-17] MEDS: Metoclopramide 10 MG Tablet J-TUBE SCH ×3 (05:11→21:35)
[2018-05-17] MEDS: Levothyroxine 150 MCG Tablet J-TUBE SCH (05:12)
[2018-05-17] MEDS: buPROPion 75 MG Tablet J-TUBE SCH ×2 (09:35→20:29)
[2018-05-17] MEDS: Lactobacillus Acidophilus/L. Spores Tablet J-TUBE SCH ×3 (09:36→17:16)
[2018-05-17] MEDS: Ascorbic Acid 500 MG Tablet J-TUBE SCH ×2 (09:36→20:29)
--- NOTE | 2018-05-17 10:26 | P.PN ---
Subjective Interval history: This is a pleasant patient with chronic respiratory failure status post Tracheostomy, seen by Nephrology specialist yesterday, doctor Mamta, with diagnosis of BETSEY, recommended to continue supportive care considerable GI output, apparently has history of gastroparesis, source water protection specialist following, with diagnosis of Respiratory failure, Pneumonia, Status post Tracheostomy, Carcinoma of supraglottis, recommended to continue T Collar at 28%, Bronchodilator, Levsin .125 mg QID, Tube feedings, Robinul 0.4 SQ BID. reculture trach secretions. 05/17: stable discussed with nurse No nausea or vomit. Physical Exam Vital signs: Vital Signs 05/16/18 17:45 05/16/18 19:25 05/16/18 20:00 Temperature 96.4 F L Pulse Rate 75 Respiratory Rate 20 16 Blood Pressure 91/45 L Pulse Oximetry 96 94 L 05/17/18 04:00 05/17/18 05:12 Temperature 96.9 F L Pulse Rate 63 Respiratory Rate 16 Blood Pressure 91/50 L Pulse Oximetry 98 98 Intake & Output 05/16/18 05/17/18 05/17/18 18:59 06:59 18:59 Intake Total 1360 / 1360 1410 / 1410 Output Total 1800 / 1800 1400 / 1400 Balance -440 / -440 10 / 10 Weight 53.5 kg Intake: IV 50 / 50 50 / 50 Cleocin 600 mg/NS Premix 600 mg 50 / 50 50 / 50 In 50 ml @ 100 mls/hr IV.SIG Q8H ANN Rx#:[id number] Oral 100 / 100 100 / 100 Tube Feeding 660 / 660 660 / 660 Water Bolus Amount 550 / 550 600 / 600 Output: Urine 700 / 700 800 / 800 Gastric Drainage 1100 / 1100 600 / 600 Gastrojejunostomy Tube 1100 / 1100 600 / 600 Jejunostomy Tube 0 / 0 Other: # Voids 3 Date of Last Bowel Movement 05/15/18 05/15/18 Narrative: General: Elderly patient alert in no acute distress. HEENT: tracheostomy in place. Mild secretions Cardiac: regular rhythm. No Murmur. Chest: Decreased breath sounds bilateral, transmitted sounds from tracheostomy. Abdomen: soft, nontender, nondistended, normal bowel sounds, G-J tube in place . Extremities: no edema. Neuro: No focal deficit. Moves extremities. Results - Labs CBC & Chem 7: 05/15/18 09:35 09/28/18 06:48 Assessment and Plan - Assessment (1) Pneumonia Code(s): J18.9 - Pneumonia, unspecified organism Status: Acute (2) GERD (gastroesophageal reflux disease) Code(s): K21.9 - Gastro-esophageal reflux disease without esophagitis Status: Acute (3) DVT (deep venous thrombosis) Code(s): I82.409 - Acute embolism and thrombosis of unspecified deep veins of unspecified lower extremity Status: Acute (4) Hypothyroidism Code(s): E03.9 - Hypothyroidism, unspecified Status: Chronic (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 Renal ultrasound shows chronic small kidneys -creatinine is stable, slightly improving. Multidrug-resistant pseudomonas pneumonia S/P IV antibiotics as per ID recommendations for a total of 14 days -05/08. COPD/respiratory failure S/P tracheostomy- on 28% Fi02 - needs frequent suctioning - Pulmonary following. - nebs as needed. Solitary lung nodules Myelodysplastic syndrome with anemia and thrombocytopenia - Heme/onc was consulted - S/P bone marrow biopsy 03/31 - Not a candidate for chemo - Monitor CBC periodically, - Transfuse as needed, if Hb<7 or patient symptomatic - The patient is being followed by heme oncology. As per the heme oncologist recent note on 05/02/2018 discussion was held with the patient's son who is a physician operations manager assistant. He does not want the patient to undergo lung biopsy at this time. We will continue to monitor the lung nodules. Continue breathing treatments as needed for COPD. The patient currently appears comfortable without any significant complaints. Severe Pharyngeal Dysphagia History of Esophageal stricture - Continue feeds through the PEG tube - J tube port - minimal blood-tinged discharge from the site of feeding tube - previously seen by Dr. Catalan; will consider GI reevaluation if doesn't improve. RLE DVT - Continue Lovenox CKD stage III Mild Hyperkalemia -Seen by Nephrology specialist yesterday, doctor Mamta, with diagnosis of BETSEY, recommended to continue supportive care considerable GI output, apparently has history of gastroparesis. Failure to thrive, protein energy malnutrition - Patient with severe pharyngeal dysphagia, esophageal stricture - G/J tube in place flush with 60 cc free water every 8 hours and Vital 1.5 at 55/hr per nutrition recs - G-tube to gravity, reverse Trendelenburg while in bed Chronic systolic heart failure - clinically stable - 2D echo 02/23 showing EF 35% with anterior septal hypokinesis and biatrial dilation - Patient euvolemic on exam. - Pt would benefit from an SNEHA-I or ARB as well as spironolactone but BPs have been borderline hypotensive so will hold off - source water protection specialist following, with diagnosis of Respiratory failure, Pneumonia, Status post Tracheostomy, Carcinoma of supraglottis, recommended to continue T Collar at 28%, Bronchodilator, Levsin .125 mg QID, Tube feedings, Robinul 0.4 SQ BID. reculture trach secretions. Hypothyroidism - Continue home Levothyroxine--TSH is still elevated at 9 - Synthroid was increased- check TSH in 4 weeks. Adjustment disorder with depression - Continue Lexapro and Wellbutrin Coccygeal wound- stable - Wound care following - Position changes GERD, h/o Barretts - Continue PPI Anemia Transfused with 2 units packed red blood cells. -Hemoglobin improved. Diarrhea- C- diff negative. -started on Imodium as needed. Lovenox for DVT prophylaxis, renally adjusted. No changes to anterior assessment. Code Status: Full code. Discussed Condition With: Nurse. Discharge Planning: Safe placement (4) Hypothyroidism Qualifiers: Hypothyroidism type: unspecified Qualified Code(s): E03.9 - Hypothyroidism, unspecified
--- NOTE | 2018-05-17 11:47 | P.PNNP ---
Subjective Interval history: No acute events overnight. Trach with productive cough. Family at bedside. Creatinine at 1.65 yesterday. <Leslie De La Torre - Last Filed: 05/17/18 11:41> Physical Exam Vital signs: Vital Signs 05/16/18 17:45 05/16/18 19:25 05/16/18 20:00 Temperature 96.4 F L Pulse Rate 75 Respiratory Rate 20 16 Blood Pressure 91/45 L Pulse Oximetry 96 94 L 05/17/18 04:00 05/17/18 05:12 05/17/18 08:00 Temperature 96.9 F L 97.2 F L Pulse Rate 63 68 Respiratory Rate 16 16 Blood Pressure 91/50 L 92/52 L Pulse Oximetry 98 98 98 Intake & Output 05/16/18 05/17/18 05/17/18 18:59 06:59 18:59 Intake Total 1360 / 1360 1410 / 1410 Output Total 1800 / 1800 1400 / 1400 Balance -440 / -440 10 / 10 Weight 53.5 kg Intake: IV 50 / 50 50 / 50 Cleocin 600 mg/NS Premix 600 mg 50 / 50 50 / 50 In 50 ml @ 100 mls/hr IV.SIG Q8H ANN Rx#:[id number] Oral 100 / 100 100 / 100 Tube Feeding 660 / 660 660 / 660 Water Bolus Amount 550 / 550 600 / 600 Output: Urine 700 / 700 800 / 800 Gastric Drainage 1100 / 1100 600 / 600 Gastrojejunostomy Tube 1100 / 1100 600 / 600 Jejunostomy Tube 0 / 0 Other: # Voids 3 Date of Last Bowel Movement 05/15/18 05/15/18 05/15/18 Narrative: General: Elderly patient alert in no acute distress. HEENT: tracheostomy in place. Mild secretions Cardiac: regular rhythm. No Murmur. Chest: Decreased breath sounds bilateral, no use of accessory muscles. Abdomen: soft, nontender, nondistended, normal bowel sounds, G-J tube in place . Extremities: no edema. Neuro: No focal deficit. Moves extremities. <Leslie De La Torre - Last Filed: 05/17/18 11:41> Vital signs: Vital Signs 05/17/18 19:31 05/17/18 20:56 05/18/18 08:00 Temperature 96.5 F L 97 F L Pulse Rate 63 62 Respiratory Rate 20 16 Blood Pressure 114/53 L 103/53 L Pulse Oximetry 95 98 95 Intake & Output 05/17/18 05/18/18 05/18/18 18:59 06:59 18:59 Intake Total 1570 / 1570 1510 / 1510 Output Total 2400 / 2400 1850 / 1850 Balance -830 / -830 -340 / -340 Weight 55.6 kg Intake: IV 100 / 100 50 / 50 Cleocin 600 mg/NS Premix 600 mg 100 / 100 50 / 50 In 50 ml @ 100 mls/hr IV.SIG Q8H ANN Rx#:[id number] Oral 50 / 50 200 / 200 Tube Feeding 850 / 850 660 / 660 Tube Irrigant 120 / 120 Water Bolus Amount 400 / 400 600 / 600 Other 50 / 50 Output: Urine 800 / 800 700 / 700 Stool 0 / 0 300 / 300 Urine/Stool Mix 550 / 550 Emesis 0 / 0 Gastric Drainage 1050 / 1050 850 / 850 Gastrojejunostomy Tube 1050 / 1050 850 / 850 Jejunostomy Tube 0 / 0 0 / 0 Other: # Voids 3 # Incontinent Voids 0 # Urine Diapers 0 Date of Last Bowel Movement 05/17/18 05/18/18 05/18/18 # Bowel Movements 2 # Incontinent Bowel Movements 0 <Alejandra Jerez - Last Filed: 05/18/18 11:23> Assessment and Plan - Assessment (1) BETSEY (acute kidney injury) Code(s): N17.9 - Acute kidney failure, unspecified Status: Acute Plan: Continue supportive care. She has considerable GI output: apparently has history of gastroparesis. Avoid nephrotoxic agents. Some fluctuation in the renal function is noted, labs periodically. (2) Pneumonia Code(s): J18.9 - Pneumonia, unspecified organism Status: Acute Plan: . - Plan , <Leslie De La Torre - Last Filed: 05/17/18 11:41> - Assessment (1) BETSEY (acute kidney injury) Code(s): N17.9 - Acute kidney failure, unspecified Status: Acute Plan: Patient seen and examined , agree with above. Creatinine is almost same, tolerating GT feeding. (2) Pneumonia Code(s): J18.9 - Pneumonia, unspecified organism Status: Acute <Gopal Jerez Q - Last Filed: 05/18/18 11:23>
[2018-05-18] MEDS: Enoxaparin Inj 60 MG/0.6 ML Syringe SQ SCH ×2 (00:56→23:04)
[2018-05-18] MEDS: Clindamycin 600 mg/NS Premix 600 MG/50 ML PIGGYBACK IV.SIG SCH ×2 (00:59→10:23)
[2018-05-18] MEDS: Metoclopramide 10 MG Tablet J-TUBE SCH ×3 (05:07→23:04)
[2018-05-18] MEDS: Levothyroxine 150 MCG Tablet J-TUBE SCH (05:08)
[2018-05-18] MEDS: Hyoscyamine Liq Drops 0.125 MG/ML 15 ML Bottle SL SCH ×4 (05:08→23:04)
[2018-05-18 08:09] LABS: Calcium 8.3 mg/dL (8.5-10.1)
[2018-05-18] MEDS: buPROPion 75 MG Tablet J-TUBE SCH ×2 (10:23→23:05)
[2018-05-18] MEDS: Lactobacillus Acidophilus/L. Spores Tablet J-TUBE SCH ×3 (10:25→19:00)
[2018-05-18] MEDS: Ascorbic Acid 500 MG Tablet J-TUBE SCH ×2 (10:25→23:06)
--- NOTE | 2018-05-18 11:24 | P.PNNP ---
Subjective Interval history: Patient is alert, with Trach. breathing is better, clinically same Physical Exam Vital signs: Vital Signs 05/17/18 19:31 05/17/18 20:56 05/18/18 08:00 Temperature 96.5 F L 97 F L Pulse Rate 63 62 Respiratory Rate 20 16 Blood Pressure 114/53 L 103/53 L Pulse Oximetry 95 98 95 Intake & Output 05/17/18 05/18/18 05/18/18 18:59 06:59 18:59 Intake Total 1570 / 1570 1510 / 1510 Output Total 2400 / 2400 1850 / 1850 Balance -830 / -830 -340 / -340 Weight 55.6 kg Intake: IV 100 / 100 50 / 50 Cleocin 600 mg/NS Premix 600 mg 100 / 100 50 / 50 In 50 ml @ 100 mls/hr IV.SIG Q8H ANN Rx#:[id number] Oral 50 / 50 200 / 200 Tube Feeding 850 / 850 660 / 660 Tube Irrigant 120 / 120 Water Bolus Amount 400 / 400 600 / 600 Other 50 / 50 Output: Urine 800 / 800 700 / 700 Stool 0 / 0 300 / 300 Urine/Stool Mix 550 / 550 Emesis 0 / 0 Gastric Drainage 1050 / 1050 850 / 850 Gastrojejunostomy Tube 1050 / 1050 850 / 850 Jejunostomy Tube 0 / 0 0 / 0 Other: # Voids 3 # Incontinent Voids 0 # Urine Diapers 0 Date of Last Bowel Movement 05/17/18 05/18/18 05/18/18 # Bowel Movements 2 # Incontinent Bowel Movements 0 Narrative: General: Elderly patient alert in no acute distress. HEENT: tracheostomy in place. Mild secretions Cardiac: regular rhythm. No Murmur. Chest: Decreased breath sounds bilateral, no use of accessory muscles. Abdomen: soft, nontender, nondistended, normal bowel sounds, G-J tube in place . Extremities: no edema. Neuro: No focal deficit. Moves extremities. Assessment and Plan - Assessment (1) BETSEY (acute kidney injury) Code(s): N17.9 - Acute kidney failure, unspecified Status: Acute Plan: (1) BETSEY (acute kidney injury) Code(s): N17.9 - Acute kidney failure, unspecified Status: Acute Plan: Continue supportive care. She has considerable GI output: apparently has history of gastroparesis. Avoid nephrotoxic agents. Creatinine is increase slightly. Continue hydration, tolerating GT feeding. (2) Pneumonia Code(s): J18.9 - Pneumonia, unspecified organism Status: Acute Plan: Clinically better. (2) Pneumonia Code(s): J18.9 - Pneumonia, unspecified organism Status: Acute Plan: . - Plan ,
--- NOTE | 2018-05-18 12:17 | P.PN ---
Subjective Interval history: This is a pleasant patient with chronic respiratory failure status post Tracheostomy, seen by Nephrology specialist yesterday, doctor Mamta, with diagnosis of BETSEY, recommended to continue supportive care considerable GI output, apparently has history of gastroparesis, specialist physician following, with diagnosis of Respiratory failure, Pneumonia, Status post Tracheostomy, Carcinoma of supraglottis, recommended to continue T Collar at 28%, Bronchodilator, Levsin .125 mg QID, Tube feedings, Robinul 0.4 SQ BID. reculture trach secretions. 05/17: Discussed with nurse, patient stable no nausea, vomit or diarrhea. Physical Exam Vital signs: Vital Signs 05/17/18 19:31 05/17/18 20:56 05/18/18 08:00 Temperature 96.5 F L 97 F L Pulse Rate 63 62 Respiratory Rate 20 16 Blood Pressure 114/53 L 103/53 L Pulse Oximetry 95 98 95 Intake & Output 05/17/18 05/18/18 05/18/18 18:59 06:59 18:59 Intake Total 1570 / 1570 1510 / 1510 Output Total 2400 / 2400 1850 / 1850 Balance -830 / -830 -340 / -340 Weight 55.6 kg Intake: IV 100 / 100 50 / 50 Cleocin 600 mg/NS Premix 600 mg 100 / 100 50 / 50 In 50 ml @ 100 mls/hr IV.SIG Q8H [facility] Rx#:[id number] Oral 50 / 50 200 / 200 Tube Feeding 850 / 850 660 / 660 Tube Irrigant 120 / 120 Water Bolus Amount 400 / 400 600 / 600 Other 50 / 50 Output: Urine 800 / 800 700 / 700 Stool 0 / 0 300 / 300 Urine/Stool Mix 550 / 550 Emesis 0 / 0 Gastric Drainage 1050 / 1050 850 / 850 Gastrojejunostomy Tube 1050 / 1050 850 / 850 Jejunostomy Tube 0 / 0 0 / 0 Other: # Voids 3 # Incontinent Voids 0 # Urine Diapers 0 Date of Last Bowel Movement 05/17/18 05/18/18 05/18/18 # Bowel Movements 2 # Incontinent Bowel Movements 0 Narrative: General: Elderly patient alert in no acute distress. HEENT: tracheostomy in place. Mild secretions Cardiac: regular rhythm. No Murmur. Chest: Decreased breath sounds bilateral, transmitted sounds from tracheostomy. Abdomen: soft, nontender, nondistended, normal bowel sounds, G-J tube in place . Extremities: no edema. Neuro: No focal deficit. Moves extremities. Results - Labs CBC & Chem 7: 05/15/18 09:35 05/18/18 06:45 Laboratory Results - last 24 hr 05/18/18 06:45 Sodium 132 L Potassium 5.0 Chloride 93 L Carbon Dioxide 26.0 Anion Gap 13 BUN 78 H Creatinine 1.87 H Estimated GFR 26 L Random Glucose 109 H Calcium 8.3 L Assessment and Plan - Assessment (1) Pneumonia Code(s): J18.9 - Pneumonia, unspecified organism Status: Acute (2) GERD (gastroesophageal reflux disease) Code(s): K21.9 - Gastro-esophageal reflux disease without esophagitis Status: Acute (3) DVT (deep venous thrombosis) Code(s): I82.409 - Acute embolism and thrombosis of unspecified deep veins of unspecified lower extremity Status: Acute (4) Hypothyroidism Code(s): E03.9 - Hypothyroidism, unspecified Status: Chronic (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 Renal ultrasound shows chronic small kidneys -nephrology specialist following. Multidrug-resistant pseudomonas pneumonia S/P IV antibiotics as per ID recommendations for a total of 14 days -05/08. COPD/respiratory failure S/P tracheostomy- on 28% Fi02 - needs frequent suctioning - Pulmonary following. - nebs as needed. Solitary lung nodules Myelodysplastic syndrome with anemia and thrombocytopenia - Heme/onc was consulted - S/P bone marrow biopsy 03/31 - Not a candidate for chemo - Monitor CBC periodically, - Transfuse as needed, if Hb<7 or patient symptomatic - The patient is being followed by heme oncology. As per the heme oncologist recent note on 05/02/2018 discussion was held with the patient's son who is a physician fish hatchery assistant. He does not want the patient to undergo lung biopsy at this time. We will continue to monitor the lung nodules. Continue breathing treatments as needed for COPD. The patient currently appears comfortable without any significant complaints. Severe Pharyngeal Dysphagia History of Esophageal stricture - Continue feeds through the PEG tube - J tube port - minimal blood-tinged discharge from the site of feeding tube RLE DVT - Continue Lovenox CKD stage III Mild Hyperkalemia -Seen by Nephrology specialist yesterday, doctor Mamta, with diagnosis of BETSEY, recommended to continue supportive care considerable GI output, apparently has history of gastroparesis. Failure to thrive, protein energy malnutrition - Patient with severe pharyngeal dysphagia, esophageal stricture - G/J tube in place flush with 60 cc free water every 8 hours and Vital 1.5 at 55/hr per nutrition recs - G-tube to gravity, reverse Trendelenburg while in bed Chronic systolic heart failure - clinically stable - 2D echo 02/23 showing EF 35% with anterior septal hypokinesis and biatrial dilation - Patient euvolemic on exam. - Pt would benefit from an SNEHA-I or ARB as well as spironolactone but BPs have been borderline hypotensive so will hold off - specialist physician following, with diagnosis of Respiratory failure, Pneumonia, Status post Tracheostomy, Carcinoma of supraglottis, recommended to continue T Collar at 28%, Bronchodilator, Levsin .125 mg QID, Tube feedings, Robinul 0.4 SQ BID. reculture trach secretions. Hypothyroidism - Continue home Levothyroxine--TSH is still elevated at 9 - Synthroid was increased- check TSH in 4 weeks. Adjustment disorder with depression - Continue Lexapro and Wellbutrin Coccygeal wound- stable - Wound care following - Position changes GERD, h/o Barretts - Continue PPI Anemia Transfused with 2 units packed red blood cells. -Hemoglobin improved. Diarrhea- C- diff negative. -started on Imodium as needed. Lovenox for DVT prophylaxis, renally adjusted. No changes to anterior assessment. Code Status: Full Code. Discussed Condition With: Nurse. Discharge Planning: Safe placement (4) Hypothyroidism Qualifiers: Hypothyroidism type: unspecified Qualified Code(s): E03.9 - Hypothyroidism, unspecified
--- NOTE | 2018-05-18 13:04 | P.DIET ---
Nutritional Evaluation Type of nutrition evaluation: follow-up Nutrition consult regarding: Tube Feeding Subjective Subjective Comments: Transferred from [place] with hypoxemic respiratory failure. Has trach/PEG. Objective - Diagnosis Respiratory Failure - Objective % IBW: 99 (IBW = 120#) Body Weight Used for Calculations: Actual (54.1 kg) Energy Needs - Lower Range (kCal/kg): 28 Energy Needs - Upper Range (kCal/kg): 32 Lower Limit kCal/kg (kCals): 1,515 Upper Limit kCal/kg (kCals): 1,731 Lower Limit Protein Factor (Grams per Kg): 1.2 Upper Limit Protein Factor (Grams per Kg): 1.5 Lower Protein Needs (Protein): 65 Upper Protein Needs (Protein): 81 Dietitian Reviewed in Medical Record: Curent medications, Intake & Output, Labs , Medical history, Tube feeding Diet Order: NPO Objective Comments: Meds include Vit C, levsin, lactinex, synthroid, reglan, MVI, Zinc 220 03/19 esophagogastroduodenoscopy with esphageal dilation 03/21 panendoscopy Assessment Assessment: Wt. continues to fluctuates, question accuracy but still elevated from admission wt. Pt. with +BM and UOP, MD noted no diarrhea. Recommend current TF of Vital 1.5 with goal rate of 55 mls/hr x 22 hours. Pt. continues on synthroid QD. Continue to monitor TFing, stool, wt. and labs. Recommendations: 1. Recommend current TF of Vital 1.5 with goal rate of 55 mls/hr x 22 hours. 2. If diarrhea increases consider lomotil. 3. Continue to monitor TFing, stool, wt. and labs. Dietitian to Monitor: Lab values, Intake & Output, Tube feeding tolerance, Weight change, Medical course
[2018-05-19] MEDS: Hyoscyamine Liq Drops 0.125 MG/ML 15 ML Bottle SL SCH ×4 (03:56→21:18)
[2018-05-19] MEDS: Metoclopramide 10 MG Tablet J-TUBE SCH ×3 (06:57→21:18)
[2018-05-19] MEDS: Levothyroxine 150 MCG Tablet J-TUBE SCH (06:57)
[2018-05-19] MEDS: Lactobacillus Acidophilus/L. Spores Tablet J-TUBE SCH ×3 (09:00→17:47)
[2018-05-19] MEDS ORDERED: Sod Chloride 0.9% Inj 1,000 ML OTHER PRN (09:00)
[2018-05-19] MEDS: buPROPion 75 MG Tablet J-TUBE SCH ×2 (09:00→20:50)
[2018-05-19] MEDS: Ascorbic Acid 500 MG Tablet J-TUBE SCH ×2 (09:00→20:50)
--- NOTE | 2018-05-19 09:57 | P.PNNP ---
Subjective Interval history: Patient is weak appearing. Chronically. Malnourished. Pale. Has considerable G tube drain. Physical Exam Vital signs: Vital Signs 05/18/18 20:03 05/19/18 01:00 05/19/18 09:15 Temperature 98.1 F Pulse Rate 70 Respiratory Rate 20 Blood Pressure 131/60 Pulse Oximetry 100 100 100 Intake & Output 05/18/18 05/19/18 05/19/18 18:59 06:59 18:59 Intake Total 1330 / 1330 800 / 800 250 / 250 Output Total 2200 / 2200 1400 / 1400 Balance -870 / -870 -600 / -600 250 / 250 Intake: IV 50 / 50 Oral 50 / 50 Tube Feeding 660 / 660 550 / 550 Tube Irrigant 120 / 120 Water Bolus Amount 450 / 450 200 / 200 250 / 250 Other 50 / 50 Output: Urine 750 / 750 300 / 300 Stool 0 / 0 Urine/Stool Mix 450 / 450 100 / 100 Emesis 0 / 0 Gastric Drainage 1000 / 1000 1000 / 1000 Gastrojejunostomy Tube 1000 / 1000 1000 / 1000 Jejunostomy Tube 0 / 0 Other: # Voids 4 # Incontinent Voids 0 # Urine Diapers 0 Date of Last Bowel Movement 05/18/18 05/19/18 # Bowel Movements 0 1 # Incontinent Bowel Movements 0 Narrative: General: Elderly patient alert in no acute distress. Tracheostomy in place. On T piece. Cardiac: regular rhythm. No Murmur. Chest: Decreased breath sounds bilateral, transmitted sounds from tracheostomy. Abdomen: soft, nontender, nondistended, normal bowel sounds, G-J tube in place . TF connected to J tube. Extremities: no edema. Neuro: No focal deficit. Moves extremities. Assessment and Plan - Assessment (1) BETSEY (acute kidney injury) Code(s): N17.9 - Status: Acute Plan: (1) BETSEY (acute kidney injury) Code(s): N17.9 - Acute kidney failure, unspecified Status: Acute Plan: Continue supportive care. She has considerable GI output: apparently has history of gastroparesis. I will start her on IVF. Repeat labs. Avoid nephrotoxic agents. Creatinine had increased slightly. (2) Pneumonia Code(s): J18.9 - Status: Acute Plan: Patient is off antibiotics. On droplet precautions.
[2018-05-19] MEDS: Morphine Sulfate Oral Liq 10 MG/0.5 ML Syringe SL PRN ×2 (10:13→20:51)
[2018-05-19] MEDS: Simethicone 125 MG Chew Tablet J-TUBE PRN (10:13)
--- NOTE | 2018-05-19 10:53 | P.PNIM ---
Subjective Interval history: Discussed with RN. Patient continues to have significant output through the G- tube. Creatinine increasing. She has been started on IV fluid. Nursing noted erythema around the G-tube. Physical Exam Vital signs: Vital Signs 05/18/18 20:03 05/19/18 01:00 05/19/18 08:00 Temperature 98.1 F 98.0 F Pulse Rate 70 78 Respiratory Rate 20 20 Blood Pressure 131/60 116/55 L Pulse Oximetry 100 100 99 05/19/18 09:15 Temperature Pulse Rate Respiratory Rate Blood Pressure Pulse Oximetry 100 Intake & Output 05/18/18 05/19/18 05/19/18 18:59 06:59 18:59 Intake Total 1330 / 1330 800 / 800 250 / 250 Output Total 2200 / 2200 1400 / 1400 Balance -870 / -870 -600 / -600 250 / 250 Intake: IV 50 / 50 Oral 50 / 50 Tube Feeding 660 / 660 550 / 550 Tube Irrigant 120 / 120 Water Bolus Amount 450 / 450 200 / 200 250 / 250 Other 50 / 50 Output: Urine 750 / 750 300 / 300 Stool 0 / 0 Urine/Stool Mix 450 / 450 100 / 100 Emesis 0 / 0 Gastric Drainage 1000 / 1000 1000 / 1000 Gastrojejunostomy Tube 1000 / 1000 1000 / 1000 Jejunostomy Tube 0 / 0 Other: # Voids 4 # Incontinent Voids 0 # Urine Diapers 0 Date of Last Bowel Movement 05/18/18 05/19/18 # Bowel Movements 0 1 # Incontinent Bowel Movements 0 Narrative: General: Elderly patient alert in no acute distress. Tracheostomy in place. On T piece. Cardiac: regular rhythm. No Murmur. Chest: Decreased breath sounds bilateral, transmitted sounds from tracheostomy. Abdomen: soft, nontender, nondistended, normal bowel sounds, G-J tube in place, there is erythema and some scant drainage around the tube. Extremities: no edema. Neuro: No focal deficit. Moves extremities. 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 - Appreciate nephrology following. Patient started on IV fluid due to worsening renal functions. -We will consult GI Renal ultrasound shows chronic small kidneys High output from GI tube/possible early tube site infection: There is reported history of gastroparesis. - We will consult GI for assistance and to evaluate PEG tube. Multidrug-resistant pseudomonas pneumonia S/P IV antibiotics as per ID recommendations for a total of 14 days -05/08. COPD/respiratory failure S/P tracheostomy- on 28% Fi02 - needs frequent suctioning - Pulmonary following. - nebs as needed. Solitary lung nodules Myelodysplastic syndrome with anemia and thrombocytopenia - Heme/onc was consulted - S/P bone marrow biopsy 03/31 - Not a candidate for chemo - Monitor CBC periodically, - Transfuse as needed, if Hb<7 or patient symptomatic - The patient is being followed by heme oncology. As per the heme oncologist recent note on 05/02/2018 discussion was held with the patient's son who is a physician care management assistant. He does not want the patient to undergo lung biopsy at this time. We will continue to monitor the lung nodules. Continue breathing treatments as needed for COPD. The patient currently appears comfortable without any significant complaints. Severe Pharyngeal Dysphagia History of Esophageal stricture - Continue feeds through the PEG tube - J tube port - minimal blood-tinged/purulent discharge from the site of feeding tube. GI consulted as above. Previously followed by Dr. Catalan. RLE DVT - Continue Lovenox Failure to thrive, protein energy malnutrition - Patient with severe pharyngeal dysphagia, esophageal stricture - G/J tube in place flush with 60 cc free water every 8 hours and Vital 1.5 at 55/hr per nutrition recs - G-tube to gravity, reverse Trendelenburg while in bed Chronic systolic heart failure - clinically stable - 2D echo 02/23 showing EF 35% with anterior septal hypokinesis and biatrial dilation - Patient euvolemic on exam. - Pt would benefit from an SNEHA-I or ARB as well as spironolactone but BPs have been borderline hypotensive so will hold off - dispute resolution specialist following, with diagnosis of Respiratory failure, Pneumonia, Status post Tracheostomy, Carcinoma of supraglottis, recommended to continue T Collar at 28%, Bronchodilator, Levsin .125 mg QID, Tube feedings, Robinul 0.4 SQ BID. reculture trach secretions. Hypothyroidism - Continue home Levothyroxine--TSH is still elevated at 9 - Synthroid was increased- check TSH in 4 weeks. Adjustment disorder with depression - Continue Lexapro and Wellbutrin Coccygeal wound- stable - Wound care following - Position changes GERD, h/o Barretts - Continue PPI Anemia Transfused with 2 units packed red blood cells. -Hemoglobin improved. Diarrhea- C- diff negative. -started on Imodium as needed. Lovenox for DVT prophylaxis, renally adjusted. Code Status: Full Code. Discharge Planning: Will need SNF when ready. (4) Hypothyroidism Qualifiers: Hypothyroidism type: unspecified Qualified Code(s): E03.9 - Hypothyroidism, unspecified
--- NOTE | 2018-05-19 17:51 | P.PNPAL ---
Reason for Visit Reason for visit: a. To assist with evaluation and management of symptoms including: dyspnea, pain, debility, anxiety, diarrhea b. To assist medical decision maker(s) with: better understanding of current medical conditions; weighing benefits/burdens of medical treatment options; making medical treatment decisions. Subjective Subjective/Interval History: Resting in bed in NAD. GI Dr Catalan, KIRSTEN Boudreaux at bedside. Pt c/o LLQ pain when she coughs. No TTP on palpation. C/o pain @ g tube site. Site has some erythema. IR consult pending, possible replacement tomorrow. Pt expresses distress, says her last tube replacement was quite painful. Declining kidney function, nephrology now on case, feels r/t increased Gtube output. IVF added per nephrology. She's having persistent diarrhea. C diff neg. ID & GI on case. Pt now with PM valve, on RA. Denies SOB. Speech good. Per nurse, son now wants lung bx and is trying to convince pt. He declined discussion with me today, asked nurse and I to leave room. Family/Friend Interactions: as above Objective Vital Signs: Vital Signs 05/18/18 20:03 05/19/18 01:00 05/19/18 08:00 Temperature 98.1 F 98.0 F Pulse Rate 70 78 Respiratory Rate 20 20 Blood Pressure 131/60 116/55 L Pulse Oximetry 100 100 99 05/19/18 09:15 05/19/18 10:45 Temperature Pulse Rate Respiratory Rate 20 Blood Pressure Pulse Oximetry 100 Intake & Output 05/18/18 05/19/18 05/19/18 18:59 06:59 18:59 Intake Total 1330 / 1330 800 / 800 250 / 250 Output Total 2200 / 2200 1400 / 1400 Balance -870 / -870 -600 / -600 250 / 250 Intake: IV 50 / 50 Oral 50 / 50 Tube Feeding 660 / 660 550 / 550 Tube Irrigant 120 / 120 Water Bolus Amount 450 / 450 200 / 200 250 / 250 Other 50 / 50 Output: Urine 750 / 750 300 / 300 Stool 0 / 0 Urine/Stool Mix 450 / 450 100 / 100 Emesis 0 / 0 Gastric Drainage 1000 / 1000 1000 / 1000 Gastrojejunostomy Tube 1000 / 1000 1000 / 1000 Jejunostomy Tube 0 / 0 Other: # Voids 4 # Incontinent Voids 0 # Urine Diapers 0 Date of Last Bowel Movement 05/18/18 05/19/18 05/19/18 # Bowel Movements 0 1 # Incontinent Bowel Movements 0 Physical Exam: CONSTITUTIONAL/GENERAL: this is a pale, ill appearing female with a tracheostomy SKIN: Pale. No jaundice, rashes, or lesions. No wounds seen anteriorly. Skin temperature appropriate. Not diaphoretic. HEAD: Atraumatic. Normocephalic. EYES: Extraocular motions intact. No scleral icterus. No injection or drainage. Fundi not examined. ENT: Hearing grossly normal. Nose without bleeding or purulent drainage. CARDIOVASCULAR: RRR without murmurs, gallops, or rubs. No JVD. Peripheral pulses symmetric. RESPIRATORY/CHEST: coarse lung sounds, diminished bases. respirations shallow. PM valve GASTROINTESTINAL: Abdomen soft, non-tender, nondistended. No hepato-splenomegaly , or palpable masses. No guarding. Bowel sounds hypoactive. +GJ tube MUSCULOSKELETAL: Extremities without clubbing, cyanosis, or edema. No mottling or clubbing. NEUROLOGICAL: Awake and alert. Motor and sensory grossly within normal limits. Follows commands. Cognitively sharp. Moves all extremities. PSYCHIATRIC: mildly anxious Diagnostic Tests Laboratory: Laboratory Results - last 72 hr 05/18/18 06:45 Sodium 132 L Potassium 5.0 Chloride 93 L Carbon Dioxide 26.0 Anion Gap 13 BUN 78 H Creatinine 1.87 H Estimated GFR 26 L Random Glucose 109 H Calcium 8.3 L Result Diagrams: 05/15/18 09:35 05/18/18 06:45 Imaging: ITS Impressions Chest CT 04/29/18 00:00 CONCLUSION: 1. Enlarging spiculated nodule in the right upper lobe and interval development of 2 additional right lung nodules as described. 2. Bibasilar consolidating airspace disease with small parapneumonic effusions. 3. Interval placement of tracheostomy tube. 4. No other significant change. Abdomen/Bladder Ultrasound 05/06/18 00:00 CONCLUSION: 1. Increased renal echogenicity characteristic of medical renal disease. Small cyst right kidney. Dependent debris in the bladder. Chest X-Ray 05/14/18 00:00 CONCLUSION: 1. Persistent left lower lung zone airspace consolidation and probable trace left pleural effusion. 2. Improved aeration of the right lower lung zone. 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 Patient now has a tracheostomy. Pertinent Non-Medical Issues: Psychosocial: Patient is originally from [place]. She has 4 brothers and 2 sisters. She moved to [place] approximately 40 years ago. Patient was for 18 years and then . She and her had 3 sons (Alireza, Sagar and Cameron). Alireza is a physicians junior sales assistant and lives in [place]. Adalid and Cameron live in [place]. Per patient, Cameron was born with "autism" and live in a shelter Spiritual: Gnosticist Legal: Pt's son Alireza is medical POA. Ethical issues impacting care: none Important Contacts: medical POA son Alireza Whitten , cell [phone] Prognosis: This is a 73 yo lady with hx laryngeal ca diagnosed 2015 s/p chemo and radiation who [facility]. She initially presented in January with weakness, dysphagia, weight loss, anemia. Chest CT showing enlarging spiculated nodule, 2 additional right lung nodules. She has since had tracheostomy, GJ, and numerous complications, including PNA, need for GJ replacement. She is likely to continue to decline and encounter complications and setbacks as she deconditions. Unlikely she would tolerate invasive procedure such as long bx, or tolerate the treatment necessary to address a malignancy if that is what her lung nodules are. Code Status: Full Code Plan: - LEGAL DECISON MAKER - Pt is capacitated to make medical decisions. Should she become incapacitated, she has designated her son Alireza as medical POA. - CODE STATUS- full code - GOALS - Goals aggressive. She has generally been deferring to her son to make decisions and his goals are aggressive. He declined discussion today. Pt in past has verbalized wanting to be DNR and not wanting procedures, however she waffles and eventually defers to her son. - SYMPTOMS - * pain - risk for pain. multifactorial, coccygeal ulcer, mult lines and catheters, tubes. c/o LLQ pain when she coughs and g tube site pain. site is erythematous. IR consult pending, possible replacement tube. recommend premedicating prior to going to IR as pt c/o of pain during and after last procedure. consider CT scan for LLQ pain. Has Austin 5/325 1 tab PRN q4h and 2 tab PRN q4h for mild and moderate to severe pain, respectively. Also has PRN roxanol 5mg q4h for breakthrough pain. no further recs. * dyspnea - hx laryngeal ca, has trach, now with PNA. BCX pending. denies feeling SOB today. on RA, has PM valve. has PRN and scheduled duonebs, PRN and nelson levsin. ID was folllowing, pt has finished abx. has PRN meds for anxiety and pain. * depression/anxiety - multifactorial. pt mildly anxious . on lexapro, wellbutrin. has clonazepam 0.5 mg q8h PRN. Has PRN temazepam for insomnia. * debility- multifactorial. 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 respiratory status unlikely to allow for aggressive therapy and rehab. weak. PT following. no further recs. * diarrhea - unclear etiology. c diff neg 05/10. also having copious g tube output. GI has been consulted, will start cholestyramine, recommending changing TF formulation. mgmt per GI. - d/w GENERAL OFFICE DISPATCHERDONOVAN Uribe Dr - Palliative care will continue to follow during hospital course as condition evolves, to assist patient/decision-maker with understanding of medical conditions, weighing benefits/burdens of treatment options, for clarification of goals of treatment. Additionally will assist with any symptoms of palliative concern Attestation Attestation: To help prompt me to consider important information that might be impacting today's encounter and assessment, information from prior notes written by myself or my colleagues may have been "brought forward" into today's note. My signature on this note, however, is an attestation that I personally performed the exam, history, and/or decision-making noted today, and, unless otherwise indicated, the interactions with patient, family, and staff as well as the review of records all occurred today. I also attest that the listed assessment and stated plan reflect my best clinical judgment today based on the combination of historical information, prior notes, and today's exam/ interactions. When time spent is documented, it refers only to time spent today by the signer, or if indicated, combined time spent today by collaborating physician/nurse practitioner.
--- NOTE | 2018-05-19 18:47 | P.PN ---
Subjective Interval history: She is alert and talking with a Passey Mahsa valve. No fever. Good output. Physical Exam Vital signs: Vital Signs 05/18/18 20:03 05/19/18 01:00 05/19/18 08:00 Temperature 98.1 F 98.0 F Pulse Rate 70 78 Respiratory Rate 20 20 Blood Pressure 131/60 116/55 L Pulse Oximetry 100 100 99 05/19/18 09:15 05/19/18 10:45 Temperature Pulse Rate Respiratory Rate 20 Blood Pressure Pulse Oximetry 100 Intake & Output 05/18/18 05/19/18 05/19/18 18:59 06:59 18:59 Intake Total 1330 / 1330 800 / 800 1560 / 1560 Output Total 2200 / 2200 1400 / 1400 2300 / 2300 Balance -870 / -870 -600 / -600 -740 / -740 Intake: IV 50 / 50 Oral 50 / 50 50 / 50 Tube Feeding 660 / 660 550 / 550 660 / 660 Tube Irrigant 120 / 120 Water Bolus Amount 450 / 450 200 / 200 850 / 850 Other 50 / 50 Output: Urine 750 / 750 300 / 300 650 / 650 Stool 0 / 0 Urine/Stool Mix 450 / 450 100 / 100 150 / 150 Emesis 0 / 0 Gastric Drainage 1000 / 1000 1000 / 1000 1500 / 1500 Gastrojejunostomy Tube 1000 / 1000 1000 / 1000 1500 / 1500 Jejunostomy Tube 0 / 0 Other: # Voids 4 4 # Incontinent Voids 0 # Urine Diapers 0 Date of Last Bowel Movement 05/18/18 05/19/18 05/19/18 # Bowel Movements 0 1 # Incontinent Bowel Movements 0 Narrative: General: Elderly patient alert in no acute distress. Tracheostomy in place. On T piece. HEENT: PERRL. Throat clear. Cardiac: regular rhythm. No Murmur. Chest: Decreased breath sounds bilateral, with occ wheeze. Abdomen: soft, nontender, nondistended, normal bowel sounds, G-J tube in place. Extremities: no edema. Neuro: No focal deficit. Moves extremities. Results - Labs CBC & Chem 7: 05/15/18 09:35 05/18/18 06:45 Assessment and Plan - Assessment (1) Respiratory failure Code(s): J96.90 - Respiratory failure, unspecified, unspecified whether with hypoxia or hypercapnia Status: Acute (2) Pneumonia Code(s): J18.9 - Pneumonia, unspecified organism Status: Acute (3) Status post trachelectomy Code(s): Z90.710 - Acquired absence of both cervix and uterus Status: Acute (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 Cont T Collar at 28 %. 2. Cont nebs with albuterol qid. PRN 3. PM valve daytime PRN to talk 4. Cont Levsin .125 mg qid prn. 5. Tube feeds at 55 CC. 6. Robinul 0.4 mg S/Q BID PRN 7. Up in Chair daily 8. Rehab Placement
--- NOTE | 2018-05-19 20:28 | MB ---
cc: Jaskaran Catalan MD DATE: 05/19/2018 ADDENDUM: I was asked to see this patient as a reconsult. I was called to see the patient regarding high gastrostomy tube output and diarrhea. She has a GJ tube and has been tolerating J-tube feedings. Green bilious fluid has been draining through her G-tube at about 1000 mL per shift. The G-tube stoma is mildly indurated and slightly tender to touch. Bowel sounds are normal. There is no abdominal tenderness, otherwise. With respect to this condition, we will have radiology reevaluate with contrast to see if the G-tube is in good position. She has been receiving Reglan without improvement in these symptoms. This may be stopped as it has not been helping. Bethanechol would be an alternate option if there is a way to give it as a crushed or liquid formulation so it does not clog the J-tube. The only other medication we have to improve motility would be azithromycin or erythromycin. However, these would aggravate her diarrheal condition and should not be used. Separately, she is having diarrheal stools. The ID team is suspicious this may be related to C. difficile, so liquid vancomycin has been started via the J-tube. Stool studies have been negative for C. difficile. The consideration is that the zinc ointment applied to the perianal area is giving a false negative result. Examination today reveals no fecal impaction. Rectal mucosa feels normal. She is on no liquid medications that should cause significant diarrhea. It is possible her tube feeding formula is too concentrated and this could be resulting in her diarrheal problem. We will have the dietary people reevaluate to see if an alternate product may be more logical. I will follow along closely. I have discussed this with the nurses and with the patient's son. MD RONNELL Jimenez/penny , 05:17 PM , 05:26 PM
[2018-05-19] MEDS: clonazePAM 0.5 MG Tablet G-TUBE PRN (20:50)
[2018-05-19] MEDS: Enoxaparin Inj 60 MG/0.6 ML Syringe SQ SCH (23:52)
[2018-05-20] MEDS: Morphine Sulfate Oral Liq 10 MG/0.5 ML Syringe SL PRN ×3 (03:42→20:58)
[2018-05-20] MEDS: Hyoscyamine Liq Drops 0.125 MG/ML 15 ML Bottle SL SCH ×4 (04:58→23:12)
[2018-05-20] MEDS: Metoclopramide 10 MG Tablet J-TUBE SCH (06:09)
[2018-05-20] MEDS: Levothyroxine 150 MCG Tablet J-TUBE SCH (06:09)
--- NOTE | 2018-05-20 06:47 | XR ---
EXAM DATE: 05/20/2018 12:00 AM EDT AGE/SEX: 73 years / Female INDICATIONS: Short of breath, evaluate infiltrate CLINICAL DATA: This is the patient's subsequent encounter. Patient reports that signs and symptoms h ave been present for 1 month and indicates a pain score of Nonresponsive. MEDICAL/SURGICAL HISTORY: Carcinoma, glottic. Rendon's esophagus . tracheostomy COMPARISON: [facility], CHEST 1V SINGLE AP, 05/14/2018. . FINDINGS: Stable tracheostomy. Persistent patchy left lower lobe airspace disease and probable trace left pleur al effusion. Stable mild diffuse interstitial prominence. Cardiomediastinal contours are stable. Batool kirsten of exam is unchanged. CONCLUSION: 1. No significant interval change. 2. Stable left lower lung zone airspace disease and probable trace pleural effusion. Electronically signed by: Chris Vieira MD 05/20/2018 6:46 AM EDT
[2018-05-20 08:10] LABS: Baso % (Auto) 1.4 % (0.0-2.0); Eos # (Auto) 0.2 th/mm3 (0.0-0.4); Eos % (Auto) 5.8 % (0.0-4.0); Hematocrit 26.2 % (35.0-46.0); Hemoglobin 8.8 gm/dL (11.6-15.3); Lymph # (Auto) 0.7 th/mm3 (1.0-4.8); Lymph % (Auto) 24.8 % (9.0-44.0); Mean Corpuscular HGB Conc 33.8 % (32.0-36.0); Mean Corpuscular Volume 85.7 fL (80.0-100.0); Mean Platelet Volume 9.9 fL (7.0-11.0); Mono # (Auto) 0.4 th/mm3 (0.0-0.9); Neut # (Auto) 1.5 th/mm3 (1.8-7.7); Platelet Count 99 th/mm3 (150-450); Red Blood Count 3.05 mil/mm3 (4.00-5.30); Red Cell Distribution Width 14.7 % (11.6-17.2); White Blood Count 2.8 th/mm3 (4.0-11.0)
--- NOTE | 2018-05-20 08:11 | P.PNIM ---
Subjective Interval history: Pt seen and examined. D/W RN. Continues to have high bilious output out of G- tube. Complaining of some pain around GJ tube as well as left sided chest wall pain when she takes a deep breath. CXR done this AM showed no significant interval change with a stable left lower lobe airspace disease. She also complains of a dry cough. Denies nausea or vomiting. Physical Exam Vital signs: Vital Signs 05/19/18 09:15 05/19/18 10:45 05/19/18 20:00 Temperature 98.3 F Pulse Rate 76 Respiratory Rate 20 18 Blood Pressure 103/51 L Pulse Oximetry 100 97 05/19/18 21:31 05/20/18 00:14 Temperature Pulse Rate Respiratory Rate Blood Pressure Pulse Oximetry 98 98 Intake & Output 05/19/18 05/20/18 05/20/18 18:59 06:59 18:59 Intake Total 1560 / 1560 950 / 950 Output Total 2300 / 2300 150 / 150 Balance -740 / -740 800 / 800 Weight 54.7 kg Intake: Oral 50 / 50 Tube Feeding 660 / 660 550 / 550 Water Bolus Amount 850 / 850 400 / 400 Output: Urine 650 / 650 Urine/Stool Mix 150 / 150 Gastric Drainage 1500 / 1500 150 / 150 Gastrojejunostomy Tube 1500 / 1500 150 / 150 Other: # Voids 4 # Incontinent Voids 1 Date of Last Bowel Movement 05/19/18 # Incontinent Bowel Movements 1 Narrative: GENERAL: Elderly, chronically-ill appearing male resting in bed in [facility]. SKIN: Warm and dry. HEENT: AT/NC. Pupils equal and round. MMM. NECK: Trach in place. CHEST: Some reproducible TTP over L lateral chest. HEART: RRR no m/r/g. LUNGS: CTAB without wheezes or crackles. ABDOMEN: GJ tube in place with some mild surrounding induration and drainage. No significant TTP or erythema. EXTREMITIES: No LE edema. NEURO: Awake and alert. Results - Labs CBC & Chem 7: 05/20/18 06:43 05/20/18 06:43 - Imaging Impressions Chest X-Ray 05/20/18 00:00 CONCLUSION: 1. No significant interval change. 2. Stable left lower lung zone airspace disease and probable trace pleural effusion. Assessment and Plan - Assessment (1) Pneumonia Code(s): J18.9 - Pneumonia, unspecified organism Status: Acute (2) GERD (gastroesophageal reflux disease) Code(s): K21.9 - Gastro-esophageal reflux disease without esophagitis Status: Acute (3) DVT (deep venous thrombosis) Code(s): I82.409 - Acute embolism and thrombosis of unspecified deep veins of unspecified lower extremity Status: Acute (4) Hypothyroidism Code(s): E03.9 - Hypothyroidism, unspecified Status: Chronic (5) Laryngeal squamous cell carcinoma Code(s): C32.9 - Malignant neoplasm of larynx, unspecified Status: Chronic (6) Protein-calorie malnutrition, severe Code(s): E43 - Unspecified severe protein-calorie malnutrition Status: Chronic - Plan 73 year old female with 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 1. Acute kidney injury - Patient with persistently high output from G-tube likely contributing to renal injury - Appreciate nephrology following - Creatinine continuing to go up, increase NS to 100 ml/hr but will monitor closely given history of systolic CHF - Renal ultrasound shows chronic small kidneys - Avoid nephrotoxic agents - Continue to closely monitor 2. High output from GJ tube - Possible gastroparesis? - GI reconsulted - IR consulted to check for position of GJ tube 3. Possible JT tube site infection - Afebrile, mild induration around site but no significant erythema - Scant drainage noted at the site and was cultured yesterday - Culture pending, Gram stain + pleomorphic rods and budding yeast - Will await final results 4. Diarrhea - C. diff studies negative but zinc oxide applied perianally could cause false negative results - On PO vanco through J-tube - Weaving Professor consulted to reassess TF formulation - Reglan discontinued since not helping - GI following 5. MDR pseudomonas PNA - ID had been consulted - S/p course of IV antibiotics x 14 days 6. Chronic respiratory failure - Tracheostomy in place - On 28% Fi02 - Needs frequent suctioning - Pulmonary following - Nebs PRN 7. Myelodysplastic syndrome with anemia and thrombocytopenia - Heme/onc was consulted - S/P bone marrow biopsy 03/31 - Not a candidate for chemo - Monitor CBC periodically, - Transfuse as needed, if Hb<7 or patient symptomatic 8. Solitary lung nodules - The patient is being followed by heme oncology. - As per the heme oncologist note on 05/02/2018, discussion was held with the patient's son who is a PA. He does not want the patient to undergo lung biopsy at this time - Periodically monitor if patient continues to be hospitalized halfway 9. Severe pharyngeal dysphagia - History of esophageal stricture - Continue feeds through JT, GT to gravity 10. RLE DVT - Continue Lovenox 11. Failure to thrive, protein energy malnutrition - Patient with severe pharyngeal dysphagia, esophageal stricture - G/J tube in place flush with 60 cc free water every 6 hours and Vital 1.5 at 55/hr per nutrition recs - G-tube to gravity, reverse Trendelenburg while in bed 12. Chronic systolic heart failure - clinically stable - 2D echo 02/23 showing EF 35% with anterior septal hypokinesis and biatrial dilation - Patient euvolemic on exam - Watch fluid status carefully 13. Hypothyroidism - Levothyroxine increased when TSH noted to be elevated at 9 - Plan on rechecking TSH in 4-6 weeks 14. Adjustment disorder with depression - Continue Lexapro and Wellbutrin 15. Coccygeal wound- stable - Wound care following - Position changes 16. GERD, h/o Barretts - Continue PPI DVT prophylaxis: Lovenox Discussed Condition With: Nursing Discharge Planning: Not stable at this time but will need long-term facility on D/C (4) Hypothyroidism Qualifiers: Hypothyroidism type: unspecified Qualified Code(s): E03.9 - Hypothyroidism, unspecified
[2018-05-20 08:52] LABS: Alanine Aminotransferase 43 U/L (10-53); Albumin 2.4 g/dL (3.4-5.0); Alkaline Phosphatase 116 U/L (45-117); Anion Gap 15 meq/L (5-15); Aspartate Aminotransferase 25 U/L (15-37); Blood Urea Nitrogen 94 mg/dL (7-18); Carbon Dioxide 27.2 meq/L (21.0-32.0); Chloride 93 meq/L (98-107); Glomerular Filtration Rate 25 mL/min (>89); Glucose,Random 107 mg/dL (74-106); Phosphorus 6.1 mg/dL (2.5-4.9); Potassium 4.5 meq/L (3.5-5.1); Sodium 135 meq/L (136-145); Total Protein 6.1 g/dL (6.4-8.2)
[2018-05-20 09:05] LABS: Eosinophils 10 % (0-4); Lymphocytes 27 % (9-44); Monocytes 10 % (0-8); Myelocytes 4 % (0-0); Platelet Morphology Normal (Normal)
[2018-05-20 09:06] LABS: Ovalocytes 1+
[2018-05-20] MEDS ORDERED: Sodium Chloride 0.9% 2 ML Flush PRN IV.FLUSH (09:23)
[2018-05-20] MEDS: Ascorbic Acid 500 MG Tablet J-TUBE SCH ×2 (09:30→20:57)
[2018-05-20] MEDS: buPROPion 75 MG Tablet J-TUBE SCH ×2 (09:30→20:57)
[2018-05-20] MEDS: Sod Chloride 0.9% Inj 1,000 ML IV.CONT SCH ×2 (09:30→18:30)
[2018-05-20] MEDS: Lactobacillus Acidophilus/L. Spores Tablet J-TUBE SCH ×3 (09:30→17:59)
--- NOTE | 2018-05-20 09:38 | P.PNNP ---
Subjective Interval history: Patient's renal function is worse today. Continues to have significant G tube drain, fluid and electrolyte losses. GI study today. Physical Exam Vital signs: Vital Signs 05/19/18 10:45 05/19/18 20:00 05/19/18 21:31 Temperature 98.3 F Pulse Rate 76 Respiratory Rate 20 18 Blood Pressure 103/51 L Pulse Oximetry 97 98 05/20/18 00:14 Temperature Pulse Rate Respiratory Rate Blood Pressure Pulse Oximetry 98 Intake & Output 05/19/18 05/20/18 05/20/18 18:59 06:59 18:59 Intake Total 1560 / 1560 950 / 950 Output Total 2300 / 2300 150 / 150 Balance -740 / -740 800 / 800 Weight 54.7 kg Intake: Oral 50 / 50 Tube Feeding 660 / 660 550 / 550 Water Bolus Amount 850 / 850 400 / 400 Output: Urine 650 / 650 Urine/Stool Mix 150 / 150 Gastric Drainage 1500 / 1500 150 / 150 Gastrojejunostomy Tube 1500 / 1500 150 / 150 Other: # Voids 4 # Incontinent Voids 1 Date of Last Bowel Movement 05/19/18 # Incontinent Bowel Movements 1 Narrative: General: Elderly patient alert in no acute distress. Tracheostomy in place. On T piece. Frail, elderly. Generalized muscle wasting. Chronically ill appearing. HEENT: PERRL. Throat clear. Cardiac: regular rhythm. No Murmur. Chest: CTA anteriorly Abdomen: soft, nontender, nondistended, normal bowel sounds, G-J tube in place. Extremities: no edema. Neuro: No focal deficit. Moves extremities. Assessment and Plan - Assessment (1) BETSEY (acute kidney injury) Code(s): N17.9 - Acute kidney failure, unspecified Status: Acute Plan: (1) BETSEY (acute kidney injury) Code(s): N17.9 - Acute kidney failure, unspecified Status: Acute Plan: Continue supportive care. She has considerable GI output: apparently has history of gastroparesis. Continue IVF: increase the rate. Avoid nephrotoxic agents. Creatinine had increased slightly. If renal function does not improve with conservative management, her prognosis is guarded to poor. (2) Pneumonia Code(s): J18.9 - Pneumonia, unspecified organism Status: Acute Plan: Patient is off antibiotics. On droplet precautions.
--- NOTE | 2018-05-20 12:42 | P.PN ---
Subjective Interval history: Alert and having no SOB. Has some drainage from around PEG J tube site. Renal profile is worse. Will get hydrated. Physical Exam Vital signs: Vital Signs 05/19/18 20:00 05/19/18 21:31 05/20/18 00:14 Temperature 98.3 F Pulse Rate 76 Respiratory Rate 18 Blood Pressure 103/51 L Pulse Oximetry 97 98 98 Intake & Output 05/19/18 05/20/18 05/20/18 18:59 06:59 18:59 Intake Total 1560 / 1560 950 / 950 Output Total 2300 / 2300 150 / 150 Balance -740 / -740 800 / 800 Weight 54.7 kg Intake: Oral 50 / 50 Tube Feeding 660 / 660 550 / 550 Water Bolus Amount 850 / 850 400 / 400 Output: Urine 650 / 650 Urine/Stool Mix 150 / 150 Gastric Drainage 1500 / 1500 150 / 150 Gastrojejunostomy Tube 1500 / 1500 150 / 150 Other: # Voids 4 # Incontinent Voids 1 Date of Last Bowel Movement 05/19/18 # Incontinent Bowel Movements 1 Narrative: GENERAL: Elderly, chronically-ill appearing lady in NAD. SKIN: Warm and dry. HEENT: Pupils equal and round. MMM. NECK: Trach in place. CHEST: Occ Wheeze in upper chest. HEART: RRR no m/r/g. ABDOMEN: GJ tube in place with some mild surrounding induration and drainage. EXTREMITIES: No LE edema. NEURO: Awake and alert. Results - Labs CBC & Chem 7: 05/20/18 06:43 05/20/18 06:43 Laboratory Results - last 24 hr 05/20/18 05/20/18 06:43 06:43 WBC 2.8 L RBC 3.05 L Hgb 8.8 L Hct 26.2 L MCV 85.7 MCH 29.0 MCHC 33.8 RDW 14.7 Plt Count 99 L MPV 9.9 Prelim Diff (Auto) Slide review pending Neut % (Auto) 53.0 Lymph % (Auto) 24.8 [place] % (Auto) 15.0 H Eos % (Auto) 5.8 H Baso % (Auto) 1.4 Neut # (Auto) 1.5 L Lymph # (Auto) 0.7 L [place] # (Auto) 0.4 Eos # (Auto) 0.2 Baso # (Auto) 0.0 WBC Differential Manual diff final Seg Neuts % (Manual) 43 Band Neuts % (Manual) 6 Lymphocytes % (Manual) 27 Monocytes % (Manual) 10 H Eosinophils % (Manual) 10 H Myelocytes % (Man) 4 H Abs Neuts (Manual) 1.5 L Differential Comment . Platelet Estimate Low L Platelet Morphology Normal Ovalocytes 1+ H Sodium 135 L Potassium 4.5 Chloride 93 L Carbon Dioxide 27.2 Anion Gap 15 BUN 94 H Creatinine 1.94 H Estimated GFR 25 L Random Glucose 107 H Calcium 8.0 L Phosphorus 6.1 H Total Bilirubin 0.3 AST 25 ALT 43 Alkaline Phosphatase 116 Total Protein 6.1 L Albumin 2.4 L Microbiology 05/19/18 18:00 Wound - Other Gram Stain - Final 05/19/18 18:00 Wound - Other Wound Culture - Preliminary - Imaging Impressions Chest X-Ray 05/20/18 00:00 CONCLUSION: 1. No significant interval change. 2. Stable left lower lung zone airspace disease and probable trace pleural effusion. 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 Cont T Collar at 28 %. 2. Cont nebs with albuterol qid. PRN 3. PM valve daytime PRN to talk 4. Cont Levsin .125 mg qid prn. 5. Tube feeds at 55 CC. 6. Get Barium exam via G tube 7. Up in Chair daily 8. IV fluids per Renal.
--- NOTE | 2018-05-20 15:36 | P.PNPOD ---
Subjective Interval history: s/p Right medial hallux PNA. No pain when seen at bedside, Physical Exam Vital signs: Vital Signs 05/19/18 20:00 05/19/18 21:31 05/20/18 00:14 Temperature 98.3 F Pulse Rate 76 Respiratory Rate 18 Blood Pressure 103/51 L Pulse Oximetry 97 98 98 05/20/18 10:41 Temperature Pulse Rate Respiratory Rate 18 Blood Pressure Pulse Oximetry Intake & Output 05/19/18 05/20/18 05/20/18 18:59 06:59 18:59 Intake Total 1560 / 1560 950 / 950 Output Total 2300 / 2300 150 / 150 Balance -740 / -740 800 / 800 Weight 54.7 kg Intake: Oral 50 / 50 Tube Feeding 660 / 660 550 / 550 Water Bolus Amount 850 / 850 400 / 400 Output: Urine 650 / 650 Urine/Stool Mix 150 / 150 Gastric Drainage 1500 / 1500 150 / 150 Gastrojejunostomy Tube 1500 / 1500 150 / 150 Other: # Voids 4 # Incontinent Voids 1 Date of Last Bowel Movement 05/19/18 # Incontinent Bowel Movements 1 Narrative: Right medial hallux. No erythema, no edema and no acute soi. NVS intact Medications and Allergies Active Medications: Active Medications Acetaminophen (Tylenol) 650 mg J-TUBE Q4H PRN PRN Reason: ELEVATED TEMP/HEADACHE Last Admin: 05/08/18 00:17 Dose: 650 mg Hydrocodone Bitart/Acetaminophen (Victor 5/325) 1 tab J-TUBE Q4H PRN PRN Reason: PAIN 2-5 Last Admin: 05/18/18 10:23 Dose: 1 tab Hydrocodone Bitart/Acetaminophen (Victor 5/325) 2 tab J-TUBE Q4H PRN PRN Reason: PAIN 6-10 Last Admin: 05/20/18 10:11 Dose: 2 tab Al Hydroxide/Mg Hydroxide (Milk Of Magnesia Liq) 30 ml J-TUBE Q12H PRN PRN Reason: Mild Constipation Albuterol (Duoneb Neb (Prn)) 1 ampul NEB Q2HR NEB PRN PRN Reason: WHEEZING Last Admin: 05/10/18 17:05 Dose: 1 ampul Ascorbic Acid (Vitamin C) 500 mg J-TUBE BID ANN Last Admin: 05/20/18 09:30 Dose: 500 mg Bisacodyl (Dulcolax Supp) 10 mg RECTAL DAILY PRN PRN Reason: SEVERE CONSITIPATION Bupropion HCl (Wellbutrin) 150 mg J-TUBE BID [facility] Last Admin: 05/20/18 09:30 Dose: 150 mg Cetirizine HCl (Zyrtec) 10 mg J-TUBE HS [facility] Last Admin: 05/19/18 20:50 Dose: 10 mg Clonazepam (Klonopin) 0.5 mg G-TUBE Q8HR PRN PRN Reason: ANXIETY Last Admin: 05/19/18 20:50 Dose: 0.5 mg Diphenhydramine HCl (Benadryl) 25 mg J-TUBE Q4H PRN PRN Reason: ITCHING Last Admin: 05/09/18 09:07 Dose: 25 mg Enoxaparin Sodium (Lovenox Inj) 60 mg SQ Q24H [facility] Last Admin: 05/19/18 23:52 Dose: Not Given Escitalopram Oxalate (Lexapro) 20 mg J-TUBE DAILY [facility] Last Admin: 05/20/18 09:30 Dose: 20 mg Glycopyrrolate (Robinul Inj) 0.4 mg IV.PUSH Q8H PRN PRN Reason: THICK SECRETIONS Last Admin: 05/16/18 10:22 Dose: 0.4 mg Hyoscyamine (Levsin Liq) 0.125 mg SL Q6H [facility] Last Admin: 05/20/18 15:29 Dose: 0.125 mg Sodium Chloride (Ns Inj) 1,000 mls @ 100 mls/hr IV.CONT .Q10H [facility] Last Admin: 05/20/18 09:30 Dose: 100 mls/hr Lactobacillus Acidophilus (Lactinex) 1 tab J-TUBE TID [facility] Last Admin: 05/20/18 13:42 Dose: 1 tab Lansoprazole (Prevacid Solutab) 30 mg J-TUBE DAILY [facility] Last Admin: 05/20/18 09:30 Dose: 30 mg Levothyroxine Sodium (Synthroid) 150 mcg J-TUBE DAILY@0600 [facility] Last Admin: 05/20/18 06:09 Dose: 150 mcg Lidocaine HCl (Xylocaine 2% Viscous) 2.5 ml OROPHARYNG Q6H PRN PRN Reason: SEE LABEL COMMENTS Last Admin: 05/02/18 21:05 Dose: 2.5 ml Loperamide HCl (Imodium Liq) 2 mg J-TUBE PRN PRN PRN Reason: diarrhea Last Admin: 05/16/18 10:23 Dose: 2 mg Miscellaneous (Pill Splitter) 1 each OTHER UNSCH PRN PRN Reason: SEE LABEL COMMENTS Morphine Sulfate (Roxanol Liq) 5 mg SL Q4H PRN PRN Reason: BREAKTHROUGH pain 2-10 Last Admin: 05/20/18 15:32 Dose: 5 mg Multivitamins (Theragran) 1 tab J-TUBE DAILY [facility] Last Admin: 05/20/18 09:30 Dose: 1 tab Ondansetron HCl (Zofran Odt) 4 mg PO Q6H PRN PRN Reason: NAUSEA OR VOMITING Sennosides (Senokot) 17.2 mg J-TUBE Q12H PRN PRN Reason: Moderate Constipation Simethicone (Phazyme Chew) 125 mg J-TUBE Q4H PRN PRN Reason: RELATING TO BLOATING Last Admin: 05/19/18 10:13 Dose: 125 mg Sodium Chloride (Ns Flush) 2 ml IV.FLUSH BID [facility] Sodium Chloride (Ns Flush) 2 ml IV.FLUSH PRN PRN PRN Reason: FLUSH AFTER USING IV ACCESS Sterile Water (Free Water) 0 ml J-TUBE Q8HR [facility] Last Admin: 05/20/18 13:00 Dose: 200 ml Temazepam (Restoril) 15 mg J-TUBE HS PRN PRN Reason: INSOMNIA Last Admin: 05/16/18 20:17 Dose: 15 mg Zinc Oxide (Zinc Oxide 20% Oint) 1 applicatio TOPICAL BID [facility] Last Admin: 05/20/18 09:30 Dose: 1 applicatio Zinc Sulfate (Zinc-220) 220 mg J-TUBE DAILY [facility] Last Admin: 05/20/18 09:30 Dose: 220 mg Allergies Allergy/AdvReac Type Severity Reaction Status Date / Time epinephrine Allergy Severe TACHYCARDIA Verified 02/21/18 08:40 penicillin G Allergy Severe Hives Verified 02/21/18 08:40 peanut Allergy Intermediate ANAPHYLAXIS Verified 02/21/18 08:40 legumes Allergy Unknown Anaphylaxis Verified 03/06/18 21:48 soy Allergy Rash Verified 03/06/18 21:45 Home Medications Medication Instructions Recorded Confirmed Type cetirizine 10 mg PO HS 02/15/18 05/13/18 History escitalopram oxalate 20 mg FEEDING TUBE DAILY 02/15/18 05/13/18 History levothyroxine 100 mcg FEEDING TUBE DAILY 02/15/18 05/13/18 History ascorbic acid (vitamin C) 500 mg FEEDING TUBE BID 03/06/18 05/13/18 History multivitamin [Daily Multi-Vitamin] 1 tab FEEDING TUBE DAILY 03/06/18 05/13/18 History Results - Labs CBC & Chem 7: 05/20/18 06:43 05/20/18 06:43 Laboratory Results - last 24 hr 05/20/18 05/20/18 06:43 06:43 WBC 2.8 L RBC 3.05 L Hgb 8.8 L Hct 26.2 L MCV 85.7 MCH 29.0 MCHC 33.8 RDW 14.7 Plt Count 99 L MPV 9.9 Prelim Diff (Auto) Slide review pending Neut % (Auto) 53.0 Lymph % (Auto) 24.8 [place] % (Auto) 15.0 H Eos % (Auto) 5.8 H Baso % (Auto) 1.4 Neut # (Auto) 1.5 L Lymph # (Auto) 0.7 L [place] # (Auto) 0.4 Eos # (Auto) 0.2 Baso # (Auto) 0.0 WBC Differential Manual diff final Seg Neuts % (Manual) 43 Band Neuts % (Manual) 6 Lymphocytes % (Manual) 27 Monocytes % (Manual) 10 H Eosinophils % (Manual) 10 H Myelocytes % (Man) 4 H Abs Neuts (Manual) 1.5 L Differential Comment . Platelet Estimate Low L Platelet Morphology Normal Ovalocytes 1+ H Sodium 135 L Potassium 4.5 Chloride 93 L Carbon Dioxide 27.2 Anion Gap 15 BUN 94 H Creatinine 1.94 H Estimated GFR 25 L Random Glucose 107 H Calcium 8.0 L Phosphorus 6.1 H Total Bilirubin 0.3 AST 25 ALT 43 Alkaline Phosphatase 116 Total Protein 6.1 L Albumin 2.4 L Microbiology 05/19/18 18:00 Wound - Other Gram Stain - Final 05/19/18 18:00 Wound - Other Wound Culture - Preliminary - Imaging Impressions Chest X-Ray 05/20/18 00:00 CONCLUSION: 1. No significant interval change. 2. Stable left lower lung zone airspace disease and probable trace pleural effusion. Assessment and Plan - Assessment (1) Ingrown nail of great toe of right foot Code(s): L60.0 - Ingrowing nail Status: Acute - Plan Doing well d/c dressing.
--- NOTE | 2018-05-20 16:02 | P.PNGI ---
Subjective Interval history: Per nursing staff, the G-tube output has decreased to about 500cc/shift. The contrast study is to be performed this afternoon. The stool is still soft/not loose now and has decreased to twice/day after stopping the reglan. Physical Exam Vital signs: Vital Signs 05/19/18 20:00 05/19/18 21:31 05/20/18 00:14 Temperature 98.3 F Pulse Rate 76 Respiratory Rate 18 Blood Pressure 103/51 L Pulse Oximetry 97 98 98 05/20/18 10:41 Temperature Pulse Rate Respiratory Rate 18 Blood Pressure Pulse Oximetry Intake & Output 05/19/18 05/20/18 05/20/18 18:59 06:59 18:59 Intake Total 1560 / 1560 950 / 950 Output Total 2300 / 2300 150 / 150 Balance -740 / -740 800 / 800 Weight 54.7 kg Intake: Oral 50 / 50 Tube Feeding 660 / 660 550 / 550 Water Bolus Amount 850 / 850 400 / 400 Output: Urine 650 / 650 Urine/Stool Mix 150 / 150 Gastric Drainage 1500 / 1500 150 / 150 Gastrojejunostomy Tube 1500 / 1500 150 / 150 Other: # Voids 4 # Incontinent Voids 1 Date of Last Bowel Movement 05/19/18 # Incontinent Bowel Movements 1 Results - Labs CBC & Chem 7: 05/20/18 06:43 05/20/18 06:43 Laboratory Results - last 24 hr 05/20/18 05/20/18 06:43 06:43 WBC 2.8 L RBC 3.05 L Hgb 8.8 L Hct 26.2 L MCV 85.7 MCH 29.0 MCHC 33.8 RDW 14.7 Plt Count 99 L MPV 9.9 Prelim Diff (Auto) Slide review pending Neut % (Auto) 53.0 Lymph % (Auto) 24.8 [place] % (Auto) 15.0 H Eos % (Auto) 5.8 H Baso % (Auto) 1.4 Neut # (Auto) 1.5 L Lymph # (Auto) 0.7 L [place] # (Auto) 0.4 Eos # (Auto) 0.2 Baso # (Auto) 0.0 WBC Differential Manual diff final Seg Neuts % (Manual) 43 Band Neuts % (Manual) 6 Lymphocytes % (Manual) 27 Monocytes % (Manual) 10 H Eosinophils % (Manual) 10 H Myelocytes % (Man) 4 H Abs Neuts (Manual) 1.5 L Differential Comment . Platelet Estimate Low L Platelet Morphology Normal Ovalocytes 1+ H Sodium 135 L Potassium 4.5 Chloride 93 L Carbon Dioxide 27.2 Anion Gap 15 BUN 94 H Creatinine 1.94 H Estimated GFR 25 L Random Glucose 107 H Calcium 8.0 L Phosphorus 6.1 H Total Bilirubin 0.3 AST 25 ALT 43 Alkaline Phosphatase 116 Total Protein 6.1 L Albumin 2.4 L Microbiology 05/19/18 18:00 Wound - Other Gram Stain - Final 05/19/18 18:00 Wound - Other Wound Culture - Preliminary - Imaging Impressions Chest X-Ray 05/20/18 00:00 CONCLUSION: 1. No significant interval change. 2. Stable left lower lung zone airspace disease and probable trace pleural effusion. Assessment and Plan - Plan 1. High gastric tube output of bilious liquid; she's to go to IR today for radiologic evaluation. 2. Gastrostomy infection: ID has been consulted. 3. Diarrhea. Stool is now soft and only twice/day. The current tube feeding formula is the only one the patient can use at this time. Right now there is no need to use cholestyramine; we don't want the stool to firm up to much.
[2018-05-20] MEDS ORDERED: Iohexol 350 MG/ML 50 ML Vial (for Rad Diag) G-TUBE ONE (16:38)
--- NOTE | 2018-05-20 16:44 | P.RAD ---
Post Procedure Progress Note - Pre Procedure Diagnosis (1) Encounter for care related to feeding tube - Post Procedure Diagnosis (1) Encounter for care related to feeding tube - Procedure Information Procedure Date: 05/20/18 Supervising Radiologist: Gab Caro Jr, MD Anesthesia: Other - Plan of Activity Patient to Unit: Nursing Unit Patient Condition: Good Additional Comments: Injection of GJ tube performed to evaluate bilious drainage thru jejunal lumen of tube. Injection under flouro shows tube in good postion. Tip in prox jejunum. See PACS Report for procedural detail/treatment.
--- NOTE | 2018-05-20 17:12 | IR ---
EXAM DATE: 05/20/2018 12:00 AM EDT AGE/SEX: 73 years / Female INDICATIONS: Patient presents with high bilious drainage through GJ tube in need of GJ tube evaluati on CLINICAL DATA: This is the patient's subsequent encounter. Patient reports that signs and symptoms h ave been present for 4 - 6 days and indicates a pain score of 0/10. MEDICAL/SURGICAL HISTORY: Chronic obstructive pulmonary disease. Anemia. Gastroesophageal ref lux disease. Supraglottic carcinoma, Radiation therapy, Rendon's esophagus Cholecystectomy. Ingui nal hernia repair. Tonsillectomy. Colonoscopy, PEG tube placement, Tracheostomy, Esophageal dilatat ions COMPARISON: No prior exams available for comparison. FLUORO TIME (min): 0.5 IMAGE SERIES: DEVICE(S): . . PROCEDURE : 1. Fluoroscopically guided tube injection. 2. Conscious sedation with continuous EKG and oximetry monitoring. The risks, benefits and alternatives to the procedure were explained and verbal and written consent w as obtained. The site was prepped in sterile fashion. Full sterile technique was used, including ca p, mask, sterile gloves and gown and a large sterile sheet. Hand hygiene and 2% chlorhexidine and/or betadine/alcohol prep was utilized per protocol for cutaneous antisepsis. With fluoroscopic guidance the previously placed tube was injected demonstrating the tip of the jejun al limb within the proximal jejunum. The balloon is just within the gastric lumen. The tube that is l ooped within the stomach does have a small kink but this is clearly not limiting the flow through the tube. Conscious sedation was performed with the prescribed dosages and duration as above in the presence of an independent trained radiology nurse to assist in the monitoring of the patient. EKG and oximetry remained stable throughout the procedure. The patient tolerated the procedure well and there were n o complications. The patient was sent to post anesthesia recovery in stable condition. CONCLUSION: 1. Uncomplicated tube injection as above. The gastrojejunostomy tube is in good position. If there i s concern for duodenal stricture resulting in a functional obstruction consideration could be made to the administration of barium either orally or through the gastric lumen of the tube to assess for an y obstruction. Thin iodinated contrast would be limited in trying to assess this. Electronically signed by: Gab Caro MD 05/20/2018 5:10 PM EDT
--- NOTE | 2018-05-20 17:36 | ECG ---
Date Performed: 05/20/2018 Time Performed: 11:48:22 PTAGE: 73 years EKG: LIKELY SINUS TACHYCARDIA WITH POORLY VISUALIZED P WAVES, HOWEVER WOULD RECOMMEND A REPEAT E KG AT A SLOWER HR TO EXCLUDE ALTERNATE ATRIAL DYSRHYTHMIA INTRAVENTRICULAR CONDUCTION DELAY Compared to previous tracing, HR is faster ABNORMAL ECG PREVIOUS TRACING : 04/23/2018 21.30 DOCTOR: Sam Hinds Interpretating Date/Time 05/20/2018 17:34:56
--- NOTE | 2018-05-20 17:40 | P.PNID ---
Subjective Remarks: reconsulted 2/2 infected PEG site no fever Pancytoepnia noted, ANC 1500 Antibiotics: none Past Medical History: lung ca Allergies/Adverse Reactions: Allergies epinephrine Allergy (Severe, Verified 02/21/18 08:40) TACHYCARDIA penicillin G Allergy (Severe, Verified 02/21/18 08:40) Hives peanut Allergy (Intermediate, Verified 02/21/18 08:40) ANAPHYLAXIS legumes Allergy (Unknown, Verified 03/06/18 21:48) Anaphylaxis UNKNOWN soy Allergy (Verified 03/06/18 21:45) Rash UNKNOWN Objective Vital Signs 05/19/18 20:00 05/19/18 21:31 05/20/18 00:14 Temperature 98.3 F Pulse Rate 76 Respiratory Rate 18 Blood Pressure 103/51 L Pulse Oximetry 97 98 98 05/20/18 08:00 05/20/18 10:41 Temperature 97.8 F Pulse Rate 90 Respiratory Rate 20 18 Blood Pressure 127/70 Pulse Oximetry 98 Intake & Output 05/19/18 05/20/18 05/20/18 18:59 06:59 18:59 Intake Total 1560 / 1560 950 / 950 Output Total 2300 / 2300 150 / 150 Balance -740 / -740 800 / 800 Weight 54.7 kg Intake: Oral 50 / 50 Tube Feeding 660 / 660 550 / 550 Water Bolus Amount 850 / 850 400 / 400 Output: Urine 650 / 650 Urine/Stool Mix 150 / 150 Gastric Drainage 1500 / 1500 150 / 150 Gastrojejunostomy Tube 1500 / 1500 150 / 150 Other: # Voids 4 # Incontinent Voids 1 Date of Last Bowel Movement 05/19/18 05/20/18 # Incontinent Bowel Movements 1 05/19/18 18:00 Wound - Other Gram Stain - Final 05/19/18 18:00 Wound - Other Wound Culture - Preliminary Lab - Hematology Results 05/20/18 06:43 WBC 2.8 L RBC 3.05 L Hgb 8.8 L Hct 26.2 L MCV 85.7 MCH 29.0 MCHC 33.8 RDW 14.7 Plt Count 99 L MPV 9.9 Prelim Diff (Auto) Slide review pending Neut % (Auto) 53.0 Lymph % (Auto) 24.8 [place] % (Auto) 15.0 H Eos % (Auto) 5.8 H Baso % (Auto) 1.4 Neut # (Auto) 1.5 L Lymph # (Auto) 0.7 L [place] # (Auto) 0.4 Eos # (Auto) 0.2 Baso # (Auto) 0.0 WBC Differential Manual diff final Seg Neuts % (Manual) 43 Band Neuts % (Manual) 6 Lymphocytes % (Manual) 27 Monocytes % (Manual) 10 H Eosinophils % (Manual) 10 H Myelocytes % (Man) 4 H Abs Neuts (Manual) 1.5 L Differential Comment . Platelet Estimate Low L Platelet Morphology Normal Ovalocytes 1+ H Lab - Chemistry Results 05/20/18 06:43 Sodium 135 L Potassium 4.5 Chloride 93 L Carbon Dioxide 27.2 Anion Gap 15 BUN 94 H Creatinine 1.94 H Estimated GFR 25 L Random Glucose 107 H Calcium 8.0 L Phosphorus 6.1 H Total Bilirubin 0.3 AST 25 ALT 43 Alkaline Phosphatase 116 Total Protein 6.1 L Albumin 2.4 L Imaging: ITS Impressions Chest CT 04/29/18 00:00 CONCLUSION: 1. Enlarging spiculated nodule in the right upper lobe and interval development of 2 additional right lung nodules as described. 2. Bibasilar consolidating airspace disease with small parapneumonic effusions. 3. Interval placement of tracheostomy tube. 4. No other significant change. Abdomen/Bladder Ultrasound 05/06/18 00:00 CONCLUSION: 1. Increased renal echogenicity characteristic of medical renal disease. Small cyst right kidney. Dependent debris in the bladder. Chest X-Ray 05/20/18 00:00 CONCLUSION: 1. No significant interval change. 2. Stable left lower lung zone airspace disease and probable trace pleural effusion. Tube Check 05/20/18 00:00 CONCLUSION: 1. Uncomplicated tube injection as above. The gastrojejunostomy tube is in good position. If there is concern for duodenal stricture resulting in a functional obstruction consideration could be made to the administration of barium either orally or through the gastric lumen of the tube to assess for any obstruction. Thin iodinated contrast would be limited in trying to assess this. Physical Exam: GENERAL: NAD thin chronically ill apperaing SKIN: Warm and dry. NO trash HEAD: Atraumatic. Normocephalic. EYES: Pupils equal and round. No scleral icterus. No injection or drainage. ENT: No nasal bleeding or discharge. Mucous membranes pink and moist. NECK: Trach in place, site OK CARDIOVASCULAR: Regular rate and rhythm. + murmur, holosystolic RESPIRATORY: No accessory muscle use. few rhonchi to auscultation. Breath sounds equal bilaterally. GASTROINTESTINAL: Abdomen soft, mildly tender and mildly distended w/o guarding and rebound PEG in place with some serosangious drainage + mild erythema aound . Hepatic and splenic margins not palpable. J tube with bilious drainage MUSCULOSKELETAL: Extremities without clubbing, cyanosis, no edema. No obvious deformities. Mildly edematou , erthemaous R hallux - medial aspect no drainage NEUROLOGICAL: Awake and alert. No obvious cranial nerve deficits. Motor grossly within normal limits. Five out of 5 muscle strength in the arms and legs. 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
[2018-05-20] MEDS: Sodium Chloride 0.9% 2 ML Flush BID IV.FLUSH SCH (20:49)
[2018-05-20] MEDS: clonazePAM 0.5 MG Tablet G-TUBE PRN (21:00)
[2018-05-21] MEDS: Enoxaparin Inj 60 MG/0.6 ML Syringe SQ SCH (00:15)
[2018-05-21] MEDS: Hyoscyamine Liq Drops 0.125 MG/ML 15 ML Bottle SL SCH ×4 (03:14→21:29)
[2018-05-21] MEDS: Levothyroxine 150 MCG Tablet J-TUBE SCH (05:25)
[2018-05-21] MEDS: Morphine Sulfate Oral Liq 10 MG/0.5 ML Syringe SL PRN ×2 (05:26→21:26)
[2018-05-21] MEDS: Sod Chloride 0.9% Inj 1,000 ML IV.CONT SCH ×2 (05:32→16:10)
[2018-05-21] MEDS: buPROPion 75 MG Tablet J-TUBE SCH ×2 (09:12→21:28)
[2018-05-21] MEDS: Ascorbic Acid 500 MG Tablet J-TUBE SCH ×2 (09:13→21:28)
[2018-05-21] MEDS: Lactobacillus Acidophilus/L. Spores Tablet J-TUBE SCH ×3 (09:13→18:33)
[2018-05-21 09:49] LABS: Hematocrit 23.2 % (35.0-46.0); Hemoglobin 7.9 gm/dL (11.6-15.3); Mean Corpuscular HGB Conc 33.9 % (32.0-36.0); Mean Corpuscular Hemoglobin 29.3 pg (27.0-34.0); Mean Corpuscular Volume 86.5 fL (80.0-100.0); Mean Platelet Volume 9.9 fL (7.0-11.0); Platelet Count 90 th/mm3 (150-450); Red Blood Count 2.68 mil/mm3 (4.00-5.30); Red Cell Distribution Width 14.9 % (11.6-17.2); White Blood Count 2.8 th/mm3 (4.0-11.0)
[2018-05-21] MEDS: Sodium Chloride 0.9% 2 ML Flush BID IV.FLUSH SCH ×2 (09:49→21:28)
--- NOTE | 2018-05-21 10:04 | P.PNNP ---
Subjective Interval history: Patient was seen and examined. Very frail. G tube drain continues. On IVF. Physical Exam Vital signs: Vital Signs 05/20/18 10:41 05/20/18 16:00 05/20/18 17:45 Temperature Pulse Rate Respiratory Rate 18 18 Blood Pressure Pulse Oximetry 98 05/20/18 20:00 Temperature 97.5 F L Pulse Rate 71 Respiratory Rate 18 Blood Pressure 94/54 L Pulse Oximetry 96 Intake & Output 05/20/18 05/21/18 05/21/18 18:59 06:59 18:59 Intake Total 1450 / 1450 1950 / 1950 Output Total 2049 / 2049 1250 / 1250 Balance -600 / -600 700 / 700 Weight 54.7 kg Intake: IV 1000 / 1000 1000 / 1000 NS Inj 1,000 ML @ 100 mls/hr IV 1000 / 1000 1000 / 1000 .CONT .Q10H [facility] Rx#:[id number] Tube Feeding 100 / 100 550 / 550 Water Bolus Amount 350 / 350 400 / 400 Output: Urine 1000 / 1000 260 / 260 Urine/Stool Mix 200 / 200 Gastric Drainage 850 / 850 990 / 990 Gastrojejunostomy Tube 850 / 850 990 / 990 Other: # Voids 4 1 Date of Last Bowel Movement 05/20/18 Narrative: GENERAL: Elderly, chronically-ill appearing lady, generalized muscle wasting. SKIN: Warm and dry. HEENT: Pupils equal and round. MMM. NECK: Trach in place. CHEST: scattered rhonchi HEART: RRR no murmur. ABDOMEN: GJ tube in place with some mild surrounding induration and drainage. EXTREMITIES: No LE edema. NEURO: Awake and alert. Assessment and Plan - Assessment (1) BETSEY (acute kidney injury) Code(s): N17.9 - Acute kidney failure, unspecified Status: Acute Plan: (1) BETSEY (acute kidney injury) Code(s): N17.9 - Acute kidney failure, unspecified Status: Acute Plan: Continue supportive care. She has considerable GI output: apparently has history of gastroparesis. Continue IVF: increase the rate. Avoid nephrotoxic agents. Creatinine had increased slightly. Labs are pending today. If renal function does not improve with conservative management, her prognosis is guarded to poor. (2) Pneumonia Code(s): J18.9 - Pneumonia, unspecified organism Status: Acute Plan: Patient is off antibiotics. On droplet precautions.
[2018-05-21 10:15] LABS: Albumin 2.3 g/dL (3.4-5.0); Calcium 8.3 mg/dL (8.5-10.1); Carbon Dioxide 26.7 meq/L (21.0-32.0); Phosphorus 6.1 mg/dL (2.5-4.9); Potassium 4.6 meq/L (3.5-5.1)
--- NOTE | 2018-05-21 10:18 | P.PN ---
Subjective Interval history: still with high output from GT tube- milky bilious drainage patient is awake and laert, dneies any abdominal pain, or any foot pain Physical Exam Vital signs: Vital Signs 05/20/18 10:41 05/20/18 16:00 05/20/18 17:45 Temperature Pulse Rate Respiratory Rate 18 18 Blood Pressure Pulse Oximetry 98 05/20/18 20:00 05/21/18 08:00 Temperature 97.5 F L 98 F Pulse Rate 71 72 Respiratory Rate 18 18 Blood Pressure 94/54 L 98/56 L Pulse Oximetry 96 98 Intake & Output 05/20/18 05/21/18 05/21/18 18:59 06:59 18:59 Intake Total 1450 / 1450 1950 / 1950 Output Total 2049 / 0 1250 / 1250 Balance -600 / -600 700 / 700 Weight 54.7 kg Intake: IV 1000 / 1000 1000 / 1000 NS Inj 1,000 ML @ 100 mls/hr IV 1000 / 1000 1000 / 1000 .CONT .Q10H [facility] Rx#:[id number] Tube Feeding 100 / 100 550 / 550 Water Bolus Amount 350 / 350 400 / 400 Output: Urine 1000 / 1000 260 / 260 Urine/Stool Mix 200 / 200 Gastric Drainage 850 / 850 990 / 990 Gastrojejunostomy Tube 850 / 850 990 / 990 Other: # Voids 4 1 Date of Last Bowel Movement 05/20/18 05/20/18 Narrative: GENERAL: Elderly, chronically-ill appearing lady, generalized muscle wasting. awake and alert, interacting SKIN: Warm and dry. HEENT: Pupils equal and round. MMM. NECK: Trach in place. CHEST: scattered rhonchi HEART: RRR no murmur. ABDOMEN: GJ tube in place- some dried blood surrounding EXTREMITIES: No LE edema. NEURO: Awake and alert. Results - Labs CBC & Chem 7: 05/21/18 08:28 05/21/18 08:28 Laboratory Results - last 24 hr 05/21/18 05/21/18 08:28 08:28 WBC 2.8 L RBC 2.68 L Hgb 7.9 L Hct 23.2 L MCV 86.5 MCH 29.3 MCHC 33.9 RDW 14.9 Plt Count 90 L MPV 9.9 Sodium 134 L Potassium 4.6 Chloride 97 L Carbon Dioxide 26.7 Anion Gap 10 BUN 95 H Creatinine 1.84 H Estimated GFR 27 L Random Glucose 107 H Calcium 8.3 L Phosphorus 6.1 H Albumin 2.3 L Microbiology 05/19/18 18:00 Wound - Other Gram Stain - Final 05/19/18 18:00 Wound - Other Wound Culture - Preliminary - Imaging Impressions Tube Check 05/20/18 00:00 CONCLUSION: 1. Uncomplicated tube injection as above. The gastrojejunostomy tube is in good position. If there is concern for duodenal stricture resulting in a functional obstruction consideration could be made to the administration of barium either orally or through the gastric lumen of the tube to assess for any obstruction. Thin iodinated contrast would be limited in trying to assess this. Assessment and Plan - Assessment (1) Pneumonia Code(s): J18.9 - Pneumonia, unspecified organism Status: Acute (2) GERD (gastroesophageal reflux disease) Code(s): K21.9 - Gastro-esophageal reflux disease without esophagitis Status: Acute (3) DVT (deep venous thrombosis) Code(s): I82.409 - Acute embolism and thrombosis of unspecified deep veins of unspecified lower extremity Status: Acute (4) Hypothyroidism Code(s): E03.9 - Hypothyroidism, unspecified Status: Chronic (5) Laryngeal squamous cell carcinoma Code(s): C32.9 - Malignant neoplasm of larynx, unspecified Status: Chronic (6) Protein-calorie malnutrition, severe Code(s): E43 - Unspecified severe protein-calorie malnutrition Status: Chronic - Plan 73 years old female 73 year old female with 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 1. Acute kidney injury - creatinine trended down gradually- continue IVF - from persistently high output from G-tube likely contributing to renal injury - Appreciate nephrology following- - Creatinine continuing to go up, will monitor closely given history of systolic CHF - Renal ultrasound shows chronic small kidneys - Avoid nephrotoxic agents - Continue to closely monitor 2. High output from GJ tube - GI ff- d/w Dr. Catalan- - IR consulted to check for position of GJ tube 3. Possible JT tube site infection - Afebrile, mild induration around site but no significant erythema - local care - Scant drainage noted at the site and was cultured yesterday - Culture pending, Gram stain + pleomorphic rods and budding yeast - Dr. Canchola ff 4. Diarrhea- slowed down - C. diff studies negative but zinc oxide applied perianally could cause false negative results - On PO vanco through J-tube - Photogrammetric Engineer consulted to reassess TF formulation - Reglan discontinued since not helping - GI following 5. MDR pseudomonas PNA - ID had been consulted - S/p course of IV antibiotics x 14 days 6. Chronic respiratory failure - Tracheostomy in place - On 28% Fi02 - Needs frequent suctioning - Pulmonary following - Nebs PRN 7. Myelodysplastic syndrome with anemia and thrombocytopenia - Heme/onc was consulted - S/P bone marrow biopsy 03/31 - Not a candidate for chemo - Monitor CBC periodically, - Transfuse as needed, if Hb<7 or patient symptomatic 8. Solitary lung nodules - The patient is being followed by heme oncology. - As per the heme oncologist note on 05/02/2018, discussion was held with the patient's son who is a PA. He does not want the patient to undergo lung biopsy at this time - Periodically monitor if patient continues to be hospitalized usp 9. Severe pharyngeal dysphagia - History of esophageal stricture - Continue feeds through JT, GT to gravity- - Nutritinist consult- PPN? candidate 10. RLE DVT - Continue Lovenox 11. Failure to thrive, protein energy malnutrition - Patient with severe pharyngeal dysphagia, esophageal stricture - G/J tube in place flush with 60 cc free water every 6 hours and Vital 1.5 at 55/hr per nutrition recs - G-tube to gravity, reverse Trendelenburg while in bed 12. Chronic systolic heart failure - clinically stable - 2D echo 02/23 showing EF 35% with anterior septal hypokinesis and biatrial dilation - Patient euvolemic on exam - Watch fluid status carefully 13. Hypothyroidism - Levothyroxine increased when TSH noted to be elevated at 9 - Plan on rechecking TSH in 4-6 weeks 14. Adjustment disorder with depression - Continue Lexapro and Wellbutrin 15. Coccygeal wound- stable - Wound care following - Position changes 16. GERD, h/o Barretts - Continue PPI DVT prophylaxis: Lovenox will monitor - if persist - will consult dietitian re: ? PPN candidate for nutrition (4) Hypothyroidism Qualifiers: Hypothyroidism type: unspecified Qualified Code(s): E03.9 - Hypothyroidism, unspecified
--- NOTE | 2018-05-21 12:16 | FL ---
EXAM DATE: 05/21/2018 12:00 AM EDT AGE/SEX: 73 years / Female INDICATIONS: High bilious drainage from g tube CLINICAL DATA: This is the patient's initial encounter. Patient reports that signs and symptoms have been present for 4 - 6 days and indicates a pain score of Nonresponsive. MEDICAL/SURGICAL HISTORY: Gastroesophageal reflux disease. Hypothyroidism. Rendon's esophagus Cholecystectomy. Tonsillectomy. COMPARISON: [facility], ABDOMEN 1V KUB, 04/13/2018. . FLUORO TIME: 1.0 minutes. IMAGE COUNT: 9 FINDINGS: The gastrojejunostomy tube is noted in good position. Thin barium was instilled through the indwellin g tube. The stomach, duodenum and jejunum is opacified. There is no evidence of gastric outlet or duo denal obstruction. Degenerative changes are noted throughout the thoracolumbar spine. CONCLUSION: No evidence of gastric outlet or duodenal obstruction. Electronically signed by: Mehdi Villarreal MD 05/21/2018 12:15 PM EDT
--- NOTE | 2018-05-21 12:51 | P.PN ---
Subjective Interval history: Went for [facility] GI series. On a T collar 28 % and is doing well. No fever. Physical Exam Vital signs: Vital Signs 05/20/18 16:00 05/20/18 17:45 05/20/18 20:00 Temperature 97.5 F L Pulse Rate 71 Respiratory Rate 18 18 Blood Pressure 94/54 L Pulse Oximetry 98 96 05/21/18 08:00 Temperature 98 F Pulse Rate 72 Respiratory Rate 18 Blood Pressure 98/56 L Pulse Oximetry 98 Intake & Output 05/20/18 05/21/18 05/21/18 18:59 06:59 18:59 Intake Total 1450 / 1450 1950 / 1950 Output Total 2049 / 0 1250 / 1250 Balance -600 / -600 700 / 700 Weight 54.7 kg Intake: IV 1000 / 1000 1000 / 1000 NS Inj 1,000 ML @ 100 mls/hr IV 1000 / 1000 1000 / 1000 .CONT .Q10H [facility] Rx#:[id number] Tube Feeding 100 / 100 550 / 550 Water Bolus Amount 350 / 350 400 / 400 Output: Urine 1000 / 1000 260 / 260 Urine/Stool Mix 200 / 200 Gastric Drainage 850 / 850 990 / 990 Gastrojejunostomy Tube 850 / 850 990 / 990 Other: # Voids 4 1 Date of Last Bowel Movement 05/20/18 05/20/18 Narrative: GENERAL: Elderly, chronically-ill appearing lady, generalized muscle wasting. awake and alert. SKIN: Warm and dry. HEENT: Pupils equal and round. MMM. NECK: Trach in place. Mild secretions.+ CHEST: scattered rhonchi and Occ basal crackles. HEART: RRR no murmur. ABDOMEN: GJ tube in place- BS +,nontender. EXTREMITIES: No LE edema. NEURO: Awake and alert. Results - Labs CBC & Chem 7: 05/21/18 08:28 05/21/18 08:28 Laboratory Results - last 24 hr 05/21/18 05/21/18 08:28 08:28 WBC 2.8 L RBC 2.68 L Hgb 7.9 L Hct 23.2 L MCV 86.5 MCH 29.3 MCHC 33.9 RDW 14.9 Plt Count 90 L MPV 9.9 Sodium 134 L Potassium 4.6 Chloride 97 L Carbon Dioxide 26.7 Anion Gap 10 BUN 95 H Creatinine 1.84 H Estimated GFR 27 L Random Glucose 107 H Calcium 8.3 L Phosphorus 6.1 H Albumin 2.3 L Microbiology 05/19/18 18:00 Wound - Other Gram Stain - Final 05/19/18 18:00 Wound - Other Wound Culture - Preliminary gram negative rods Group D Enterococcus Yeast species - Imaging Impressions Tube Check 05/20/18 00:00 CONCLUSION: 1. Uncomplicated tube injection as above. The gastrojejunostomy tube is in good position. If there is concern for duodenal stricture resulting in a functional obstruction consideration could be made to the administration of barium either orally or through the gastric lumen of the tube to assess for any obstruction. Thin iodinated contrast would be limited in trying to assess this. Upper GI Series 05/21/18 00:00 CONCLUSION: No evidence of gastric outlet or duodenal obstruction. 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 Cont T Collar at 28 %. 2. Cont nebs with albuterol qid. PRN 3. PM valve daytime PRN to talk 4. Cont Levsin .125 mg qid prn. 5. Tube feeds at 55 CC. 6. CBC,BMP in am. 7. Up in Chair daily 8. IV fluids per Renal.
--- NOTE | 2018-05-21 17:33 | P.PNGI ---
Subjective Interval history: ALert Nad 1 liter gastric/bilious drainage noted from GTube....UGI did not reveal any obstruction Physical Exam Vital signs: Vital Signs 05/20/18 17:45 05/20/18 20:00 05/21/18 08:00 Temperature 97.5 F L 98 F Pulse Rate 71 72 Respiratory Rate 18 18 Blood Pressure 94/54 L 98/56 L Pulse Oximetry 98 96 98 05/21/18 14:03 Temperature Pulse Rate Respiratory Rate Blood Pressure Pulse Oximetry 97 Intake & Output 05/20/18 05/21/18 05/21/18 18:59 06:59 18:59 Intake Total 1450 / 1450 1950 / 1950 1920 / 1920 Output Total 2049 / 0 1250 / 1250 1450 / 1450 Balance -600 / -600 700 / 700 470 / 470 Weight 54.7 kg Intake: IV 1000 / 1000 1000 / 1000 1000 / 1000 NS Inj 1,000 ML @ 100 mls/hr IV 1000 / 1000 1000 / 1000 1000 / 1000 .CONT .Q10H [facility] Rx#:[id number] Oral 50 / 50 Tube Feeding 100 / 100 550 / 550 550 / 550 Tube Irrigant 120 / 120 Water Bolus Amount 350 / 350 400 / 400 200 / 200 Other 0 / 0 Output: Urine 1000 / 1000 260 / 260 450 / 450 Stool 0 / 0 Urine/Stool Mix 200 / 200 0 / 0 Emesis 0 / 0 Gastric Drainage 850 / 850 990 / 990 1000 / 1000 Gastrojejunostomy Tube 850 / 850 990 / 990 1000 / 1000 Jejunostomy Tube 0 / 0 Other: # Voids 4 1 3 # Incontinent Voids 1 # Urine Diapers 0 Date of Last Bowel Movement 05/20/18 05/20/18 # Bowel Movements 0 # Incontinent Bowel Movements 0 - Constitutional no acute distress - Routine Respiratory Exam Present: rhonchi - Routine Cardiovascular Exam Present: RRR, S1, S2 - Routine Abdominal Exam Present: soft, normoactive bowel sounds Comments: G/J tube in place - Routine Skin Exam Present: dry Results - Labs CBC & Chem 7: 05/21/18 08:28 05/21/18 08:28 Laboratory Results - last 24 hr 05/21/18 05/21/18 08:28 08:28 WBC 2.8 L RBC 2.68 L Hgb 7.9 L Hct 23.2 L MCV 86.5 MCH 29.3 MCHC 33.9 RDW 14.9 Plt Count 90 L MPV 9.9 Sodium 134 L Potassium 4.6 Chloride 97 L Carbon Dioxide 26.7 Anion Gap 10 BUN 95 H Creatinine 1.84 H Estimated GFR 27 L Random Glucose 107 H Calcium 8.3 L Phosphorus 6.1 H Albumin 2.3 L Microbiology 05/19/18 18:00 Wound - Other Gram Stain - Final 05/19/18 18:00 Wound - Other Wound Culture - Preliminary gram negative rods Group D Enterococcus Yeast species - Imaging Impressions Upper GI Series 05/21/18 00:00 CONCLUSION: No evidence of gastric outlet or duodenal obstruction. Assessment and Plan (1) Gastroparesis Status: Acute Code(s): K31.84 - Gastroparesis - Attending Attestation Will add Azithromycin once daily for motility purposes... continue other therapy keep in Reverse Trendelenberg
[2018-05-21] MEDS: Azithromycin Inj 250 MG in Sodium Chlor 0.9% Inj 250 ML IV.SIG SCH (21:27)
[2018-05-21] MEDS: clonazePAM 0.5 MG Tablet G-TUBE PRN (21:28)
[2018-05-22] MEDS: Enoxaparin Inj 60 MG/0.6 ML Syringe SQ SCH (00:55)
[2018-05-22] MEDS: Morphine Sulfate Oral Liq 10 MG/0.5 ML Syringe SL PRN (03:54)
[2018-05-22] MEDS: Hyoscyamine Liq Drops 0.125 MG/ML 15 ML Bottle SL SCH ×3 (03:56→16:26)
[2018-05-22] MEDS: Levothyroxine 150 MCG Tablet J-TUBE SCH (05:19)
[2018-05-22] MEDS: Sod Chloride 0.9% Inj 1,000 ML IV.CONT SCH ×4 (07:00→22:15)
--- NOTE | 2018-05-22 09:17 | P.PNIM ---
Subjective Interval history: in no acute distress. no abdominal pain or nausea. no fever. d/w the RN. Physical Exam Vital signs: Vital Signs 05/21/18 14:03 05/21/18 20:00 05/22/18 00:00 Temperature 98.4 F 98.6 F Pulse Rate 71 76 Respiratory Rate 18 20 Blood Pressure 109/53 L 110/56 L Pulse Oximetry 97 94 L 96 Intake & Output 05/21/18 05/22/18 05/22/18 18:59 06:59 18:59 Intake Total 1920 / 1920 1250 / 1250 Output Total 1450 / 1450 600 / 600 350 / 350 Balance 470 / 470 -600 / -600 900 / 900 Intake: IV 1000 / 1000 1250 / 1250 NS Inj 1,000 ML @ 100 mls/hr IV 1000 / 1000 1000 / 1000 .CONT .Q10H [facility] Rx#:[id number] Azithromycin Inj 250 MG In NS 250 / 250 Inj 250 ML @ 250 mls/hr IV.SIG Q24H [facility] Rx#:[id number] Oral 50 / 50 Tube Feeding 550 / 550 Tube Irrigant 120 / 120 Water Bolus Amount 200 / 200 Other 0 / 0 Output: Urine 450 / 450 600 / 600 350 / 350 Stool 0 / 0 Urine/Stool Mix 0 / 0 Emesis 0 / 0 Gastric Drainage 1000 / 1000 Gastrojejunostomy Tube 1000 / 1000 Jejunostomy Tube 0 / 0 Other: # Voids 3 1 # Incontinent Voids 1 # Urine Diapers 0 Date of Last Bowel Movement 05/20/18 05/22/18 05/22/18 # Bowel Movements 0 1 # Incontinent Bowel Movements 0 - Constitutional no acute distress - Routine Respiratory Exam Present: CTA bilaterally - Routine Cardiovascular Exam Present: RRR - Routine Abdominal Exam Present: soft Comments: mild drainage at the site of the feeding tube noted. - Routine Extremities Exam Comments: no pedal edema. - Routine Neurological Exam Present: alert Results - Labs CBC & Chem 7: 05/21/18 08:28 05/21/18 08:28 Laboratory Results - last 24 hr 05/21/18 05/21/18 08:28 08:28 WBC 2.8 L RBC 2.68 L Hgb 7.9 L Hct 23.2 L MCV 86.5 MCH 29.3 MCHC 33.9 RDW 14.9 Plt Count 90 L MPV 9.9 Sodium 134 L Potassium 4.6 Chloride 97 L Carbon Dioxide 26.7 Anion Gap 10 BUN 95 H Creatinine 1.84 H Estimated GFR 27 L Random Glucose 107 H Calcium 8.3 L Phosphorus 6.1 H Albumin 2.3 L Microbiology 05/19/18 18:00 Wound - Other Gram Stain - Final 05/19/18 18:00 Wound - Other Wound Culture - Preliminary gram negative rods Group D Enterococcus Yeast species - Imaging Impressions Upper GI Series 05/21/18 00:00 CONCLUSION: No evidence of gastric outlet or duodenal obstruction. Assessment and Plan - Assessment (1) Pneumonia Code(s): J18.9 - Pneumonia, unspecified organism Status: Acute (2) GERD (gastroesophageal reflux disease) Code(s): K21.9 - Gastro-esophageal reflux disease without esophagitis Status: Acute (3) DVT (deep venous thrombosis) Code(s): I82.409 - Acute embolism and thrombosis of unspecified deep veins of unspecified lower extremity Status: Acute (4) Hypothyroidism Code(s): E03.9 - Hypothyroidism, unspecified Status: Chronic (5) Laryngeal squamous cell carcinoma Code(s): C32.9 - Malignant neoplasm of larynx, unspecified Status: Chronic (6) Protein-calorie malnutrition, severe Code(s): E43 - Unspecified severe protein-calorie malnutrition Status: Chronic - Plan 73 year old female with 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 1. Acute kidney injury - creatinine trended down gradually- continue IVF - from persistently high output from G-tube likely contributing to renal injury - Appreciate nephrology following- - Renal ultrasound shows chronic small kidneys - Avoid nephrotoxic agents - Continue to closely monitor 2. High output from GJ tube - GI ff- d/w Dr. Catalan- - GJ tube in good position per IR -upper Gi series with no gastric outlet or duodenal obstruction. 3. Possible JT tube site infection - Afebrile, mild induration around site but no significant erythema - local care - Scant drainage noted at the site and was cultured yesterday - Culture pending, Gram stain + pleomorphic rods and budding yeast - Dr. Canchola ff 4. Diarrhea- slowed down - C. diff studies negative but zinc oxide applied perianally could cause false negative results - On PO vanco through J-tube - Wind Tunnel Engineer consulted to reassess TF formulation - Reglan discontinued since not helping/ started on Azithromycin - GI following 5. MDR pseudomonas PNA - ID had been consulted - S/p course of IV antibiotics x 14 days 6. Chronic respiratory failure - Tracheostomy in place - On 28% Fi02 - Needs frequent suctioning - Pulmonary following - Nebs PRN 7. Myelodysplastic syndrome with anemia and thrombocytopenia - Heme/onc was consulted - S/P bone marrow biopsy 03/31 - Not a candidate for chemo - Monitor CBC periodically, - Transfuse as needed, if Hb<7 or patient symptomatic 8. Solitary lung nodules - The patient is being followed by heme oncology. - As per the heme oncologist note on 05/02/2018, discussion was held with the patient's son who is a PA. He does not want the patient to undergo lung biopsy at this time - Periodically monitor if patient continues to be hospitalized half-way 9. Severe pharyngeal dysphagia - History of esophageal stricture - Continue feeds through JT, GT to gravity- - Folder Taper Operator consult- PPN? candidate 10. RLE DVT - Continue Lovenox 11. Failure to thrive, protein energy malnutrition - Patient with severe pharyngeal dysphagia, esophageal stricture - G/J tube in place flush with 60 cc free water every 6 hours and Vital 1.5 at 55/hr per nutrition recs - G-tube to gravity, reverse Trendelenburg while in bed 12. Chronic systolic heart failure - clinically stable - 2D echo 02/23 showing EF 35% with anterior septal hypokinesis and biatrial dilation - Patient euvolemic on exam - Watch fluid status carefully 13. Hypothyroidism - Levothyroxine increased when TSH noted to be elevated at 9 - Plan on rechecking TSH in 4-6 weeks 14. Adjustment disorder with depression - Continue Lexapro and Wellbutrin 15. Coccygeal wound- stable - Wound care following - Position changes 16. GERD, h/o Barretts - Continue PPI DVT prophylaxis: Lovenox (4) Hypothyroidism Qualifiers: Hypothyroidism type: unspecified Qualified Code(s): E03.9 - Hypothyroidism, unspecified
[2018-05-22 09:45] LABS: Calcium 8.3 mg/dL (8.5-10.1); Carbon Dioxide 30.1 meq/L (21.0-32.0); Potassium 4.2 meq/L (3.5-5.1)
[2018-05-22] MEDS: Loperamide Liq 2 MG/10 ML UDC J-TUBE PRN (09:53)
[2018-05-22] MEDS: Lactobacillus Acidophilus/L. Spores Tablet J-TUBE SCH ×3 (09:53→18:11)
[2018-05-22] MEDS: buPROPion 75 MG Tablet J-TUBE SCH ×2 (09:53→22:13)
[2018-05-22] MEDS: Ascorbic Acid 500 MG Tablet J-TUBE SCH ×2 (09:53→22:14)
[2018-05-22] MEDS: Sodium Chloride 0.9% 2 ML Flush BID IV.FLUSH SCH ×2 (09:55→22:14)
--- NOTE | 2018-05-22 12:38 | P.PNNP ---
Subjective Interval history: Renal function is slightly better: she has pre-renal state due to G tube drain. Physical Exam Vital signs: Vital Signs 05/21/18 14:03 05/21/18 20:00 05/22/18 00:00 Temperature 98.4 F 98.6 F Pulse Rate 71 76 Respiratory Rate 18 20 Blood Pressure 109/53 L 110/56 L Pulse Oximetry 97 94 L 96 Intake & Output 05/21/18 05/22/18 05/22/18 18:59 06:59 18:59 Intake Total 1920 / 1920 1250 / 1250 Output Total 1450 / 1450 600 / 600 350 / 350 Balance 470 / 470 -600 / -600 900 / 900 Intake: IV 1000 / 1000 1250 / 1250 NS Inj 1,000 ML @ 100 mls/hr IV 1000 / 1000 1000 / 1000 .CONT .Q10H [facility] Rx#:[id number] Azithromycin Inj 250 MG In NS 250 / 250 Inj 250 ML @ 250 mls/hr IV.SIG Q24H [facility] Rx#:[id number] Oral 50 / 50 Tube Feeding 550 / 550 Tube Irrigant 120 / 120 Water Bolus Amount 200 / 200 Other 0 / 0 Output: Urine 450 / 450 600 / 600 350 / 350 Stool 0 / 0 Urine/Stool Mix 0 / 0 Emesis 0 / 0 Gastric Drainage 1000 / 1000 Gastrojejunostomy Tube 1000 / 1000 Jejunostomy Tube 0 / 0 Other: # Voids 3 1 # Incontinent Voids 1 # Urine Diapers 0 Date of Last Bowel Movement 05/20/18 05/22/18 05/22/18 # Bowel Movements 0 1 # Incontinent Bowel Movements 0 Narrative: GENERAL: Elderly, chronically-ill appearing lady, generalized muscle wasting. awake and alert. SKIN: Warm and dry. HEENT: Pupils equal and round. NECK: Trach in place. Mild secretions.+ CHEST: scattered rhonchi and Occ basal crackles. HEART: RRR no murmur. ABDOMEN: GJ tube in place- BS +,nontender. EXTREMITIES: No LE edema. NEURO: Awake and alert. Assessment and Plan - Assessment (1) BETSEY (acute kidney injury) Code(s): N17.9 - Acute kidney failure, unspecified Status: Acute Plan: (1) BETSEY (acute kidney injury) Code(s): N17.9 - Acute kidney failure, unspecified Status: Acute Plan: Continue supportive care. Continue IVF as long as she has G tube drain. May consider changing IVF to 1/ 2NS. Attempt to achieve positive fluid balance daily. Avoid nephrotoxic agents. FDC outlook is poor. (2) Pneumonia Code(s): J18.9 - Pneumonia, unspecified organism Status: Acute Plan: Patient is off antibiotics. On droplet precautions.
--- NOTE | 2018-05-22 12:58 | P.PN ---
Subjective Interval history: Alert and on T Bar 28 %. Hgb dropped again. Output was OK. Physical Exam Vital signs: Vital Signs 05/21/18 14:03 05/21/18 20:00 05/22/18 00:00 Temperature 98.4 F 98.6 F Pulse Rate 71 76 Respiratory Rate 18 20 Blood Pressure 109/53 L 110/56 L Pulse Oximetry 97 94 L 96 Intake & Output 05/21/18 05/22/18 05/22/18 18:59 06:59 18:59 Intake Total 1920 / 1920 1250 / 1250 Output Total 1450 / 1450 600 / 600 350 / 350 Balance 470 / 470 -600 / -600 900 / 900 Intake: IV 1000 / 1000 1250 / 1250 NS Inj 1,000 ML @ 100 mls/hr IV 1000 / 1000 1000 / 1000 .CONT .Q10H ANN Rx#:[id number] Azithromycin Inj 250 MG In NS 250 / 250 Inj 250 ML @ 250 mls/hr IV.SIG Q24H ANN Rx#:[id number] Oral 50 / 50 Tube Feeding 550 / 550 Tube Irrigant 120 / 120 Water Bolus Amount 200 / 200 Other 0 / 0 Output: Urine 450 / 450 600 / 600 350 / 350 Stool 0 / 0 Urine/Stool Mix 0 / 0 Emesis 0 / 0 Gastric Drainage 1000 / 1000 Gastrojejunostomy Tube 1000 / 1000 Jejunostomy Tube 0 / 0 Other: # Voids 3 1 # Incontinent Voids 1 # Urine Diapers 0 Date of Last Bowel Movement 05/20/18 05/22/18 05/22/18 # Bowel Movements 0 1 # Incontinent Bowel Movements 0 Narrative: GENERAL: Elderly, chronically-ill appearing lady, generalized muscle wasting. awake and alert. SKIN: cool and dry. HEENT: Pupils equal and round. NECK: Trach in place. Mild secretions + CHEST: scattered rhonchi and Occ basal crackles. HEART: RRR no murmur. ABDOMEN: GJ tube in place- BS +,nontender. EXTREMITIES: No LE edema. NEURO: Awake and alert.No gross deficits Results - Labs CBC & Chem 7: 05/21/18 08:28 05/22/18 08:16 Laboratory Results - last 24 hr 05/22/18 08:16 Sodium 140 Potassium 4.2 Chloride 101 Carbon Dioxide 30.1 Anion Gap 9 BUN 84 H Creatinine 1.71 H Estimated GFR 29 L Random Glucose 117 H Calcium 8.3 L Microbiology 05/19/18 18:00 Wound - Other Gram Stain - Final 05/19/18 18:00 Wound - Other Wound Culture - Preliminary gram negative rods Group D Enterococcus Yeast species Assessment and Plan - Assessment (1) Respiratory failure Code(s): J96.90 - Respiratory failure, unspecified, unspecified whether with hypoxia or hypercapnia Status: Acute (2) Pneumonia Code(s): J18.9 - Pneumonia, unspecified organism Status: Acute (3) Status post trachelectomy Code(s): Z90.710 - Acquired absence of both cervix and uterus Status: Acute (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 Cont T Collar at 28 %. 2. Cont nebs with albuterol qid. PRN 3. PM valve daytime PRN to talk 4. Cont Levsin .125 mg qid prn. 5. Tube feeds at 55 CC. 6. CBC,BMP in am. 7. Up in Chair daily 8. IV fluids per Renal.
[2018-05-22] MEDS ORDERED: Sodium Chlor 0.9% Inj 250 ML IV.SIG SCH (13:00)
[2018-05-22] MEDS ORDERED: Sod Chloride 0.9% Inj 1,000 ML IV.SIG ONE (13:45)
[2018-05-22] MEDS ORDERED: Sod Chloride 0.9% Inj 500 ML IV.SIG ONE (15:15)
[2018-05-22 15:35] LABS: Baso % (Auto) 0.2 % (0.0-2.0); Eos # (Auto) 0.2 th/mm3 (0.0-0.4); Eos % (Auto) 7.8 % (0.0-4.0); Hematocrit 22.4 % (35.0-46.0); Hemoglobin 7.6 gm/dL (11.6-15.3); Lymph # (Auto) 0.6 th/mm3 (1.0-4.8); Lymph % (Auto) 25.9 % (9.0-44.0); Mean Corpuscular Hemoglobin 29.4 pg (27.0-34.0); Mean Corpuscular Volume 86.4 fL (80.0-100.0); Mean Platelet Volume 9.5 fL (7.0-11.0); Mono # (Auto) 0.3 th/mm3 (0.0-0.9); Mono % (Auto) 13.9 % (0.0-8.0); Neut # (Auto) 1.3 th/mm3 (1.8-7.7); Neut % (Auto) 52.2 % (16.0-70.0); Platelet Count 92 th/mm3 (150-450); Red Cell Distribution Width 14.6 % (11.6-17.2); White Blood Count 2.4 th/mm3 (4.0-11.0)
[2018-05-22] MEDS ORDERED: Vancomycin Consult Pharmacy OTHER PRN (16:07)
[2018-05-22 16:09] LABS: Ovalocytes 1+; Platelet Morphology Normal (Normal)
--- NOTE | 2018-05-22 16:20 | P.PNID ---
Subjective Remarks: pt deteriorated today GFR went down BP is low 90/60 pancytopenia large amint of J tube billious drainage + large amount of sputum Antibiotics: none bacitracine topically Past Medical History: lung ca Allergies/Adverse Reactions: Allergies epinephrine Allergy (Severe, Verified 02/21/18 08:40) TACHYCARDIA penicillin G Allergy (Severe, Verified 02/21/18 08:40) Hives peanut Allergy (Intermediate, Verified 02/21/18 08:40) ANAPHYLAXIS legumes Allergy (Unknown, Verified 03/06/18 21:48) Anaphylaxis UNKNOWN soy Allergy (Verified 03/06/18 21:45) Rash UNKNOWN Objective Vital Signs 05/21/18 20:00 05/22/18 00:00 05/22/18 08:00 Temperature 98.4 F 98.6 F 98.4 F Pulse Rate 71 76 60 Respiratory Rate 18 20 16 Blood Pressure 109/53 L 110/56 L 108/50 L Pulse Oximetry 94 L 96 95 05/22/18 09:30 05/22/18 12:00 05/22/18 12:30 Temperature 98.1 F 98.5 F 97.9 F Pulse Rate 62 60 65 Respiratory Rate 16 14 16 Blood Pressure 100/50 L 80/42 L 90/40 L Pulse Oximetry 95 96 95 05/22/18 12:45 05/22/18 13:32 05/22/18 13:50 Temperature 98.4 F 98.6 F Pulse Rate 67 64 Respiratory Rate 14 16 Blood Pressure 96/48 L 91/40 L Pulse Oximetry 95 97 05/22/18 14:14 Temperature 98.1 F Pulse Rate 60 Respiratory Rate 14 Blood Pressure 88/40 L Pulse Oximetry 95 Intake & Output 05/21/18 05/22/18 05/22/18 18:59 06:59 18:59 Intake Total 1920 / 1920 3375 / 3375 Output Total 1450 / 1450 600 / 600 350 / 350 Balance 470 / 470 -600 / -600 3025 / 3025 Weight 54.5 kg Intake: IV 1000 / 1000 3375 / 3375 NS Inj 1,000 ML @ 100 mls/hr IV 1000 / 1000 2125 / 2125 .CONT .Q10H ANN Rx#:[id number] Azithromycin Inj 250 MG In NS 250 / 250 Inj 250 ML @ 250 mls/hr IV.SIG Q24H ANN Rx#:[id number] NS Inj 1,000 ML @ 1000 mls/hr 1000 / 1000 IV.SIG .Q1H ONE Rx#:[id number] Oral 50 / 50 Tube Feeding 550 / 550 Tube Irrigant 120 / 120 Water Bolus Amount 200 / 200 Other 0 / 0 Output: Urine 450 / 450 600 / 600 350 / 350 Stool 0 / 0 Urine/Stool Mix 0 / 0 Emesis 0 / 0 Gastric Drainage 1000 / 1000 Gastrojejunostomy Tube 1000 / 1000 Jejunostomy Tube 0 / 0 Other: # Voids 3 1 # Incontinent Voids 1 # Urine Diapers 0 Date of Last Bowel Movement 05/20/18 05/22/18 05/22/18 # Bowel Movements 0 1 # Incontinent Bowel Movements 0 05/19/18 18:00 Wound - Other Gram Stain - Final 05/19/18 18:00 Wound - Other Wound Culture - Preliminary gram negative rods Enterococcus faecium VRE Caitlyn tropicalis Lab - Hematology Results 05/21/18 05/22/18 08:28 15:27 WBC 2.8 L 2.4 L RBC 2.68 L 2.60 L Hgb 7.9 L 7.6 L Hct 23.2 L 22.4 L MCV 86.5 86.4 MCH 29.3 29.4 MCHC 33.9 34.0 RDW 14.9 14.6 Plt Count 90 L 92 L MPV 9.9 9.5 Prelim Diff (Auto) Slide review pending Neut % (Auto) 52.2 Lymph % (Auto) 25.9 Charlotte % (Auto) 13.9 H Eos % (Auto) 7.8 H Baso % (Auto) 0.2 Neut # (Auto) 1.3 L Lymph # (Auto) 0.6 L Charlotte # (Auto) 0.3 Eos # (Auto) 0.2 Baso # (Auto) 0.0 Differential Comment . Lab - Chemistry Results 05/21/18 05/22/18 08:28 08:16 Sodium 134 L 140 Potassium 4.6 4.2 Chloride 97 L 101 Carbon Dioxide 26.7 30.1 Anion Gap 10 9 BUN 95 H 84 H Creatinine 1.84 H 1.71 H Estimated GFR 27 L 29 L Random Glucose 107 H 117 H Calcium 8.3 L 8.3 L Phosphorus 6.1 H Albumin 2.3 L Imaging: ITS Impressions Chest CT 04/29/18 00:00 CONCLUSION: 1. Enlarging spiculated nodule in the right upper lobe and interval development of 2 additional right lung nodules as described. 2. Bibasilar consolidating airspace disease with small parapneumonic effusions. 3. Interval placement of tracheostomy tube. 4. No other significant change. Abdomen/Bladder Ultrasound 05/06/18 00:00 CONCLUSION: 1. Increased renal echogenicity characteristic of medical renal disease. Small cyst right kidney. Dependent debris in the bladder. Chest X-Ray 05/20/18 00:00 CONCLUSION: 1. No significant interval change. 2. Stable left lower lung zone airspace disease and probable trace pleural effusion. Tube Check 05/20/18 00:00 CONCLUSION: 1. Uncomplicated tube injection as above. The gastrojejunostomy tube is in good position. If there is concern for duodenal stricture resulting in a functional obstruction consideration could be made to the administration of barium either orally or through the gastric lumen of the tube to assess for any obstruction. Thin iodinated contrast would be limited in trying to assess this. Upper GI Series 05/21/18 00:00 CONCLUSION: No evidence of gastric outlet or duodenal obstruction. Physical Exam: GENERAL: NAD looks sick today, lehtargic thin chronically ill apperaing SKIN: Warm and dry. NO rash HEAD: Atraumatic. Normocephalic. EYES: Pupils equal and round. No scleral icterus. No injection or drainage. ENT: No nasal bleeding or discharge. Mucous membranes pink and moist. NECK: Trach in place, site OK CARDIOVASCULAR: Regular rate and rhythm. + murmur, holosystolic RESPIRATORY: No accessory muscle use. Diffuse b/l rhonchi to auscultation. Breath sounds equal bilaterally. GASTROINTESTINAL: Abdomen soft, mildly tender in LLQ and mildly distended w/o guarding and rebound PEG in place with some serosangious drainage + mild erythema around, no drainage . Hepatic and splenic margins not palpable. J tube with large mount of bilious drainage MUSCULOSKELETAL: Extremities without clubbing, cyanosis, + some edema. No obvious deformities. Mildly edematou , erthemaous R hallux - medial aspect no drainage NEUROLOGICAL: Lethargic but arousable . No obvious cranial nerve deficits. Motor grossly within normal limits. Five out of 5 muscle strength in the arms and legs. 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 PNA BLL, MDRO PSAE, Acinetobacter H&N cancer sp trach, PEG Diarrhea, neg for C.diff Mild PEG infection vs irritation growing mixed andrew which is c/w contaminantion, including VRE New sepsis likley source pulmonary vs GI, less likely \ Colonised with multiple MDROs, including PSAE, VRE PEG site does not appear to be the source of infection and already looks better with topical bacitracin Avycaz Daptomycin Flagyl Micafungin CT A/P and chest w/o contrast BC stat, repeat C.diff UA/C+S Sputum clx Transfer to ICU with persisteant hypotension cont local care of PEG site will follow the culture lori RN
--- NOTE | 2018-05-22 16:28 | P.PNADD ---
Addendum to Inpatient Note Reason for Addendum: Additional Documentation (patient with persistent hypotension despite aggressive IV fluid hydration. son was contacted and given an update. patient is still full code and the son requested aggressive care. patient will be transferred to ICU with tooling specialist consult. case was d/w .)
[2018-05-22 18:51] LABS: Bacteria,Urine Rare /hpf; Bilirubin,Urine Negative (Negative); Clarity,Urine Hazy (Clear); Color,Urine Yellow (Yellw/Straw); Glucose,Urine (UA) Negative (Negative); Leukocyte Esterase,Urine Trace (Negative); Nitrite,Urine Negative (Negative); Specific Gravity,Urine 1.012 (1.002-1.035)
[2018-05-22] MEDS: DAPTOmycin Inj 500 MG in Sodium Chlor 0.9% Inj 100 ML IV.SIG SCH (19:44)
[2018-05-22] MEDS: Ceftazidime/Avibactam Inj 0.94 GM in Sodium Chlor 0.9% Inj 50 ML IV.SIG SCH (19:52)
[2018-05-22] MEDS: Micafungin Inj 150 MG in Sodium Chlor 0.9% Inj 100 ML IV.SIG SCH (19:52)
[2018-05-22] MEDS: Azithromycin Inj 250 MG in Sodium Chlor 0.9% Inj 250 ML IV.SIG SCH (19:53)
--- NOTE | 2018-05-22 22:06 | CT ---
EXAM DATE: 05/22/2018 9:05 PM EDT AGE/SEX: 73 years / Female INDICATIONS: Abdominal pain in left lower quadrant. CLINICAL DATA: This is the patient's initial encounter. Patient reports that signs and symptoms have been present for 1 day and indicates a pain score of 6/10. MEDICAL/SURGICAL HISTORY: . Gastroparesis. Barrettes esophagus. Cholecystectomy. Hernia repa ir. Tracheostomy. RADIATION DOSE: 5.1 CTDI (mGy) ; Combined studies COMPARISON: [facility], CT ABDOMEN & PELVIS W/O CONTRAST, 04/21/2018. [facility], UPPER GI SERIES WITH KUB SCO UT, 05/21/2018. . TECHNIQUE: Multiple contiguous axial images were obtained through the abdomen. Images were obtained using multiple row detector helical technique. Using automated exposure control and adjustment of the mA and/or kV according to patient size, radiation dose was kept as low as reasonably achievable to o btain optimal diagnostic quality images. DICOM format image data is available electronically for rev iew and comparison. FINDINGS: Contrast for the patient's upper GI is in the colon. There is sigmoid colon diverticulosis. No acute or focal inflammatory changes are demonstrated. There is no free fluid or free air. No lymp hadenopathy. Patient has a percutaneously placed gastrojejunostomy tube, appears appropriately positi oned. A small hiatal hernia is evident. Noncontrast appearance of the liver, spleen, pancreas and adrenal glands within normal limits. Scatte red sub-3 mm nonobstructing stones are seen of both kidneys. There is an unchanged benign 2 cm cyst o f the right upper pole. No ureteral calculus or hydronephrosis/hydroureter seen. Abdominal aorta is atherosclerotic. No aneurysm. CONCLUSION: 1. Diverticulosis without perceptible diverticulitis or other acute inflammatory changes. 2. The gastrojejunostomy tube appears appropriately positioned. No perceptible associated acute comp lication. 3. There are scattered tiny nonobstructing stones of both kidneys and a small cyst on the right. 4. Small sliding-type hiatal hernia again seen. Electronically signed by: Gee Babcock MD 05/22/2018 10:05 PM EDT
--- NOTE | 2018-05-22 22:34 | CT ---
EXAM DATE: 05/22/2018 9:05 PM EDT AGE/SEX: 73 years / Female INDICATIONS: Pleural effusion. Respiratory failure. CLINICAL DATA: This is the patient's initial encounter. Patient reports that signs and symptoms have been present for 1 day and indicates a pain score of 0/10. MEDICAL/SURGICAL HISTORY: . Gastroperesis. . Tracheostomy. Hernia repair. RADIATION DOSE: 5.1 CTDI (mGy) ; Combined studies COMPARISON: [facility] [place], CT CHEST W/O CONTRAST, 04/29/2018. . TECHNIQUE: Multiple contiguous axial images were obtained through the chest without contrast. Image s were obtained in suspended respiration using multiple row detector helical technique. Using automa melany exposure control and adjustment of the mA and/or kV according to patient size, radiation dose was kept as low as reasonably achievable to obtain optimal diagnostic quality images. DICOM format imag e data is available electronically for review and comparison. FINDINGS: Moderate size pleural effusion with lower lobe consolidation seen on the left, slightly worse than on the prior chest CT. Right lower lobe atelectasis has improved, currently mild. The 13 mm spiculated nodule of the right upper lobe is without appreciable change. 6 mm nodule slightly more inferiorly of the right upper lobe is not significantly changed. Heart size within normal limits. No lymphadenopathy demonstrated. Tracheostomy tube seen. CONCLUSION: 1. Moderate left pleural effusion with atelectasis of the left lower lobe. 2. Mild right base atelectasis, improved compared to prior CT. 3. Right upper lobe pulmonary nodules are stable but the larger one remains concerning for primary b ronchogenic carcinoma. Electronically signed by: Gee Babcock MD 05/22/2018 10:33 PM EDT
--- NOTE | 2018-05-23 01:35 | P.PNCC ---
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 The rapid response was called and the patient was transferred to ICU where she was placed on 60% oxygenation via trach collar. The critical care medicine was consulted for an admission. Subjective: [facility] reconsulted 05/23 due to hypotension. She has been on the hospitalist service, followed by multiple consulting services. She is s/p trach with recurrent respiratory infections with MDRO managed by ID. She has significant respiratory secretions with suctioning, these are reportedly increased. She is afebrile, persistent pancytopenia. She has a G/J tube, G tube is kept to gravity with high output, ~1-2 L of bilious drainage per day. She has been followed by gastroenterology, on pharmacotherapy for gastric motility. Upper GI 05/21 showed no evidence of obstruction. Today she developed hypotension with SBP 80/40. BP ultimately normalized after [address] chest/ abd pelvis was obtained. G/J tube is in satisfactory position and there are no acute intra- abdominal findings. CT chest does demonstrate a moderate left pleural effusion with left lower lobe atelectasis. She has been having loose stools. Repeat C. difficile PCR pending Objective Vital Signs / I&O: Vital Signs 05/22/18 08:00 05/22/18 09:30 05/22/18 12:00 Temperature 98.4 F 98.1 F 98.5 F Pulse Rate 60 62 60 Respiratory Rate 16 16 14 Blood Pressure 108/50 L 100/50 L 80/42 L Pulse Oximetry 95 95 96 05/22/18 12:30 05/22/18 12:45 05/22/18 13:32 Temperature 97.9 F 98.4 F 98.6 F Pulse Rate 65 67 64 Respiratory Rate 16 14 16 Blood Pressure 90/40 L 96/48 L 91/40 L Pulse Oximetry 95 95 05/22/18 13:50 05/22/18 14:14 05/22/18 17:00 Temperature 98.1 F 98.2 F Pulse Rate 60 62 Respiratory Rate 14 18 Blood Pressure 88/40 L 90/44 L Pulse Oximetry 97 95 97 05/22/18 17:28 05/22/18 17:41 05/22/18 18:29 Temperature 98.2 F Pulse Rate 65 64 70 Respiratory Rate 16 38 H Blood Pressure 91/40 L Pulse Oximetry 98 90 L 05/22/18 19:00 05/22/18 20:00 05/22/18 21:00 Temperature 97.8 F Pulse Rate 67 74 67 Respiratory Rate 21 27 H 21 Blood Pressure 102/66 98/62 L 99/62 L Pulse Oximetry 89 L 91 L 96 05/22/18 22:00 05/22/18 23:00 05/23/18 00:00 Temperature 97.9 F Pulse Rate 72 72 72 Respiratory Rate 24 28 H 33 H Blood Pressure 96/47 L 100/47 L 110/54 L Pulse Oximetry 92 L 94 L 93 L 05/23/18 01:00 Temperature Pulse Rate 71 Respiratory Rate 23 Blood Pressure 100/47 L Pulse Oximetry 95 Intake & Output 05/22/18 05/22/18 05/23/18 06:59 18:59 06:59 Intake Total 6110 / 6110 500 / 500 Output Total 600 / 600 2100 / 2100 Balance -600 / -600 4010 / 4010 500 / 500 Weight 54.5 kg Intake: IV 4850 / 4850 500 / 500 NS Inj 1,000 ML @ 100 mls/hr IV 3000 / 3000 .CONT .Q10H ANN Rx#:[id number] Azithromycin Inj 250 MG In NS 250 / 250 250 / 250 Inj 250 ML @ 250 mls/hr IV.SIG Q24H ANN Rx#:[id number] Avycaz Inj 0.94 GM In NS Inj 50 50 / 50 ML @ 25 mls/hr IV.SIG Q12H ANN Rx#:[id number] Cubicin Inj 500 MG In NS Inj 100 / 100 100 ML @ 200 mls/hr IV.SIG Q24H ANN Rx#:[id number] Mycamine Inj 150 MG In NS Inj 100 / 100 100 ML @ 100 mls/hr IV.SIG Q24H ANN Rx#:[id number] NS Inj 500 ML @ 1000 mls/hr IV. 1500 / 1500 SIG .Q30M ONE Rx#:[id number] Flagyl 500 MG Inj 100 ML @ 100 100 / 100 mls/hr IV.SIG Q8H ANN Rx#: [id number] Oral 50 / 50 Tube Feeding 660 / 660 Water Bolus Amount 550 / 550 Output: Urine 600 / 600 1100 / 1100 Gastric Drainage 1000 / 1000 Gastrojejunostomy Tube 1000 / 1000 Other: # Voids 3 Date of Last Bowel Movement 05/22/18 05/22/18 # Bowel Movements 1 Result Diagrams: 05/23/18 03:49 05/23/18 03:49 Objective Remarks: GENERAL: Chronically ill appearing elderly female who is laying in [facility] bed on trach collar. SKIN: Warm and dry. HEAD: Atraumatic. Normocephalic. EYES: Pupils equal and round. No scleral icterus. No injection or drainage. ENT: No nasal bleeding or discharge. NECK: Trachea midline, 6 cuff less fenestrated trach in place. Moderate yellow secretions with suctioning. CARDIOVASCULAR: Regular rate and rhythm. No murmurs rubs or gallops. RESPIRATORY: Occasional rhonchi bilaterally, diminished bibasilar. No wheezes or rales. GASTROINTESTINAL: Abdomen soft, non-tender, nondistended. She has a GJ tube. Continuous tube feeds are running via the J-tube. G-tube is to gravity with bilious output. The GJ tube insertion site some clot around it. There is no exudate. MUSCULOSKELETAL: Extremities without clubbing, cyanosis. There is trace pedal edema. NEUROLOGICAL: Awake and alert. No obvious cranial nerve deficits. Moves all extremities without lateralizing signs Assessment and Plan - Assessment and Plan Plan: NEURO: Depression Continue Lexapro 20 mg per G-tube daily. Continue Wellbutrin 150 mg/day to twice daily. Anxiety Klonopin 0.5 mg per G-tube every 8 hours Lortab as needed for pain. RESP: History of squamous cell carcinoma of the larynx now status post tracheostomy due to recurrent aspiration Spiculated right upper lobe pulmonary nodule, multiple R pulmonary nodules Dr. Pineda has discussed risk/ benefits of biopsy with patient and her son on 05/05 and at that time they opted to defer biopsy. Per recent palliative care note there has been discussion of possibly pursuing biopsy. At this point patient is not stable for biopsy. Pulmonology following, Dr. Marcelino LLL atelectasis and moderate pleural effusion Parapneumonic L pleural effusion. Hold lovenox, drainage with pleural fluid studies including cytology. CV: Hypotension Secondary to volume depletion, responded to 3 L IVF. Continue 0.9 NaCl at 100 mL/h. GI: GERD Prevacid 30 mg per G-tube daily Gastroparesis Chronic moderate protein energy malnutrition G tube to gravity. Continuous tube feeds with Vital 1.5 @ 55 ml/hr via J tube. Azithromycin 250 mg IV daily for gastric motility. Local wound care with bacitracin to G J-tube site. FEN/RENAL: CKD stage III Vitamin C supplementation Voiding Monitor BMP. Monitor electrolytes and replace as indicated. ID: ID following, Dr. Canchola. Maher cultures and repeat C. difficile ordered 05/22 On antimicrobial therapy per infectious disease for MDRO (micafungin, avycaz, daptomycin, Flagyl) HEME: DVT right lower extremity on ultrasound 03/27/18 Has been on Lovenox 60 mg. This is currently on hold for drainage of left pleural effusion, resume when procedure complete. ENDO: Hypothyroidism Continue Synthroid 150 mcg per G-tube daily PROPH: Lovenox as per above. PPI as per above. ACCESS: Peripheral IV providing adequate access at this time. Level 3 Consult. Patient has been chronically ill with recurrent respiratory infections and MDRO. Her quality of life has been declining over the last year with dysphagia and recurrent aspiration ultimately resulting in trach/PEG. Her prognosis is poor. She defers to her son for much of medical decision making and ultimately goals have been fairly aggressive. She would be appropriate for hospice care if that was in keeping with her goals. Palliative care is following.
[2018-05-23 06:06] LABS: Hematocrit 21.1 % (35.0-46.0); Hemoglobin 7.1 gm/dL (11.6-15.3); Mean Corpuscular HGB Conc 33.8 % (32.0-36.0); Mean Corpuscular Hemoglobin 29.3 pg (27.0-34.0); Mean Corpuscular Volume 86.7 fL (80.0-100.0); Mean Platelet Volume 9.8 fL (7.0-11.0); Platelet Count 93 th/mm3 (150-450); Red Blood Count 2.44 mil/mm3 (4.00-5.30); Red Cell Distribution Width 14.3 % (11.6-17.2); White Blood Count 2.6 th/mm3 (4.0-11.0)
[2018-05-23] MEDS: Hyoscyamine Liq Drops 0.125 MG/ML 15 ML Bottle SL SCH ×5 (06:23→23:47)
[2018-05-23 06:27] LABS: Calcium 7.9 mg/dL (8.5-10.1); Potassium 4.4 meq/L (3.5-5.1)
[2018-05-23 06:31] LABS: Phosphorus 3.3 mg/dL (2.5-4.9)
[2018-05-23 08:11] LABS: Blast Cells 2 % (0-0); Eosinophils 12 % (0-4); Lymphocytes 31 % (9-44); Metamyelocytes 1 % (0-1); Monocytes 5 % (0-8); Myelocytes 1 % (0-0); Promyelocyte 1 % (0-0)
[2018-05-23 08:12] LABS: Ovalocytes 1+
[2018-05-23 08:13] LABS: Platelet Morphology Normal (Normal)
[2018-05-23] MEDS: Enoxaparin Inj 60 MG/0.6 ML Syringe SQ SCH (08:49)
[2018-05-23] MEDS: Ceftazidime/Avibactam Inj 0.94 GM in Sodium Chlor 0.9% Inj 50 ML IV.SIG SCH ×2 (08:50→20:11)
[2018-05-23] MEDS: Levothyroxine 150 MCG Tablet J-TUBE SCH (08:50)
[2018-05-23] MEDS: Sod Chloride 0.9% Inj 1,000 ML IV.CONT SCH ×2 (09:09→18:25)
[2018-05-23] MEDS: Sodium Chloride 0.9% 2 ML Flush BID IV.FLUSH SCH ×2 (09:11→20:14)
[2018-05-23] MEDS: Ascorbic Acid 500 MG Tablet J-TUBE SCH ×2 (09:11→20:14)
[2018-05-23] MEDS: buPROPion 75 MG Tablet J-TUBE SCH ×2 (09:11→20:13)
[2018-05-23] MEDS: Lactobacillus Acidophilus/L. Spores Tablet J-TUBE SCH ×3 (09:11→18:42)
--- NOTE | 2018-05-23 11:36 | US ---
EXAM DATE: 05/23/2018 12:00 AM EDT AGE/SEX: 73 years / Female INDICATIONS: Left pleural effusion. CLINICAL DATA: This is the patient's initial encounter. Patient reports that signs and symptoms have been present for 1 week and indicates a pain score of 2/10. MEDICAL/SURGICAL HISTORY: . Gastroesophageal reflux disease. Arthritis. Barretts esophagus. Ski n cancer. Hypothyroidism. 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 . Cholecystectomy. Ton sillectomy. Colonoscopy. Esophageal dilation. EGD. Hernia repair. Oral surgery. Adenoidectomy. COMPARISON: [facility] [place], CT CHEST W/O CONTRAST, 05/22/2018. . MEASUREMENTS: Skin To Parietal Pleura:__1.8 cm Skin To Max Safe Depth:__3.2 cm Estimated Fluid Volume:__367.37 cc Fluid Composition:__simple FINDINGS: Pleural effusion as above. CONCLUSION: 1. Lastly 360 cc of pleural effusion on the left. This does not appear loculated or complex. Site wa s marked Electronically signed by: Aly Park MD 05/23/2018 11:35 AM EDT
[2018-05-23 13:43] LABS: INR 1.1 Ratio; Prothrombin Time 11.3 sec (9.8-11.6)
--- NOTE | 2018-05-23 14:49 | P.PNNP ---
Subjective Interval history: Events noted. Hypotension, seen by mobile electronics installer, improved with fluids. Renal function has improved. Physical Exam Vital signs: Vital Signs 05/22/18 17:00 05/22/18 17:28 05/22/18 17:41 Temperature 98.2 F 98.2 F Pulse Rate 62 65 64 Respiratory Rate 18 16 Blood Pressure 90/44 L 91/40 L Pulse Oximetry 97 98 05/22/18 18:29 05/22/18 19:00 05/22/18 20:00 Temperature 97.8 F Pulse Rate 70 67 74 Respiratory Rate 38 H 21 27 H Blood Pressure 102/66 98/62 L Pulse Oximetry 90 L 89 L 91 L 05/22/18 21:00 05/22/18 22:00 05/22/18 23:00 Temperature Pulse Rate 67 72 72 Respiratory Rate 21 24 28 H Blood Pressure 99/62 L 96/47 L 100/47 L Pulse Oximetry 96 92 L 94 L 05/23/18 00:00 05/23/18 01:00 05/23/18 02:00 Temperature 97.9 F Pulse Rate 72 71 73 Respiratory Rate 33 H 23 21 Blood Pressure 110/54 L 100/47 L 110/62 Pulse Oximetry 93 L 95 95 05/23/18 03:00 05/23/18 04:00 05/23/18 05:00 Temperature 98.4 F Pulse Rate 71 72 73 Respiratory Rate 32 H 21 25 H Blood Pressure 119/53 L 98/47 L 108/54 L Pulse Oximetry 95 94 L 95 05/23/18 05:28 05/23/18 06:00 05/23/18 06:02 Temperature Pulse Rate 69 70 Respiratory Rate 21 Blood Pressure 105/49 L Pulse Oximetry 99 98 05/23/18 06:30 05/23/18 07:00 05/23/18 08:00 Temperature 98.5 F Pulse Rate 67 68 Respiratory Rate 30 H 37 H Blood Pressure 112/54 L 114/51 L 127/84 Pulse Oximetry 100 100 05/23/18 09:00 05/23/18 10:00 05/23/18 12:37 Temperature 98.5 F Pulse Rate 67 65 66 Respiratory Rate 24 Blood Pressure 110/53 L 109/55 L 110/60 Pulse Oximetry 98 99 99 Intake & Output 10/04/18 10/05/18 10/05/18 18:59 06:59 18:59 Intake Total 6110 / 6110 3468 / 3468 100 / 100 Output Total 2100 / 2100 900 / 900 Balance 4010 / 4010 2568 / 2568 100 / 100 Weight 54.5 kg 55.5 kg Intake: IV 4850 / 4850 1600 / 1600 100 / 100 NS Inj 1,000 ML @ 100 mls/hr IV 3000 / 3000 1000 / 1000 .CONT .Q10H ANN Rx#:[id number] Azithromycin Inj 250 MG In NS 250 / 250 250 / 250 Inj 250 ML @ 250 mls/hr IV.SIG Q24H ANN Rx#:[id number] Avycaz Inj 0.94 GM In NS Inj 50 50 / 50 ML @ 25 mls/hr IV.SIG Q12H ANN Rx#:[id number] Cubicin Inj 500 MG In NS Inj 100 / 100 100 ML @ 200 mls/hr IV.SIG Q24H ANN Rx#:[id number] Mycamine Inj 150 MG In NS Inj 100 / 100 100 ML @ 100 mls/hr IV.SIG Q24H ANN Rx#:[id number] NS Inj 500 ML @ 1000 mls/hr IV. 1500 / 1500 SIG .Q30M ONE Rx#:[id number] Flagyl 500 MG Inj 100 ML @ 100 100 / 100 100 / 100 100 / 100 mls/hr IV.SIG Q8H ANN Rx#: [id number] Oral 50 / 50 Tube Feeding 660 / 660 1348 / 1348 Tube Irrigant 120 / 120 Water Bolus Amount 550 / 550 400 / 400 Other 0 / 0 Output: Urine 1100 / 1100 600 / 600 Stool 0 / 0 Urine/Stool Mix 0 / 0 Emesis 0 / 0 Gastric Drainage 1000 / 1000 300 / 300 Gastrojejunostomy Tube 1000 / 1000 300 / 300 Jejunostomy Tube 0 / 0 Other: # Voids 3 # Urine Diapers 0 Date of Last Bowel Movement 05/22/18 05/22/18 # Bowel Movements 1 2 # Incontinent Bowel Movements 0 Narrative: GENERAL: Elderly, chronically-ill appearing lady, generalized muscle wasting. awake and alert. SKIN: cool and dry. HEENT: Pupils equal and round. NECK: Trach in place. Mild secretions + CHEST: scattered rhonchi and Occ basal crackles. HEART: RRR no murmur. ABDOMEN: GJ tube in place- BS +,nontender. EXTREMITIES: No LE edema. NEURO: Awake and alert.No gross deficits Assessment and Plan - Assessment (1) BETSEY (acute kidney injury) Code(s): N17.9 - Acute kidney failure, unspecified Status: Acute Plan: (1) BETSEY (acute kidney injury) Code(s): N17.9 - Acute kidney failure, unspecified Status: Acute Plan: Continue supportive care. Continue IVF as long as she has G tube drain. . Attempt to achieve positive fluid balance daily. Avoid nephrotoxic agents. 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 (2) Pneumonia Code(s): J18.9 - Pneumonia, unspecified organism Status: Acute Plan: Patient is off antibiotics. On droplet precautions. - Plan Very poor prognosis. At risk for multiple complications. I will see her as needed.
--- NOTE | 2018-05-23 16:25 | US ---
EXAM DATE: 05/23/2018 12:00 AM EDT AGE/SEX: 73 years / Female INDICATIONS: Left pleural effusion. CLINICAL DATA: This is the patient's initial encounter. Patient reports that signs and symptoms have been present for 1 day and indicates a pain score of 0/10. MEDICAL/SURGICAL HISTORY: . Gastroesophageal reflux disease. Arthritis. Barretts esophagus. Ski n cancer. Hypothyroidism. 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 . . Cholecystectomy. T onsillectomy. Colonoscopy. Esophageal dilation. EGD. Hernia repair. Oral surgery. Adenoidectomy. COMPARISON: No prior exams available for comparison. FLUID: Total volume of 350 cc of clear, red fluid was removed. Fluid was sent to lab for ordered studies. . . TECHNIQUE: Ultrasound guidance for thoracentesis. Thoracentesis. The risks, benefits, and alternatives to ultrasound guided thoracentesis were explained to the patien t in lay simple terms, including the risk of bleeding and infection. Written and verbal informed con sent was obtained. Appropriate area for left thoracentesis was marked under ultrasound guidance with the patient in the upright position. Overlying skin was prepped and draped in the usual sterile fashion and with local anesthetic, a dermatotomy was made with an 11 blade scalpel. A 6 Tajik thoracentesis catheter was p laced in the pleural space and fluid was removed. Catheter was then removed and a sterile dressing a pplied. There were no immediate complications. The patient tolerated the procedure well and the left the ultrasound suite in stable condition. Chest radiograph is to be obtained. CONCLUSION: Uncomplicated ultrasound-guided left chest thoracentesis as above. Electronically signed by: Gee Pinto MD 05/23/2018 4:23 PM EDT
--- NOTE | 2018-05-23 16:27 | XR ---
EXAM DATE: 05/23/2018 12:00 AM EDT AGE/SEX: 73 years / Female INDICATIONS: S/p thoracentesis. CLINICAL DATA: This is the patient's initial encounter. Patient reports that signs and symptoms have been present for 1 week and indicates a pain score of 0/10. MEDICAL/SURGICAL HISTORY: Gastroesophageal reflux disease. gastroparesis, COPD, Supraglottic ca rcinoma, milan's esophagus, GERD, Tonsillectomy. peg tube, dilatations COMPARISON: [facility], CHEST 1V SINGLE AP, 05/20/2018. . FINDINGS: There is no evidence of pneumothorax following thoracentesis. There is persistent consolidation at th e left base securing left diaphragm. Minimal residual fluid. Right chest remains clear. Cardiac conto urs are unchanged. Healed right rib fractures again noted. CONCLUSION: No pneumothorax Electronically signed by: Gee Pinto MD 05/23/2018 4:26 PM EDT
[2018-05-23 18:05] LABS: Total Protein,Pleural Fluid 2.8 gm/dL
[2018-05-23 18:18] LABS: RBC,Pleural Fluid 5083 /mm3 (0-0)
[2018-05-23 18:21] LABS: Lymphocytes,Pleural Fluid 47 %; Monocytes,Pleural Fluid 4 %; Neutrophils,Pleural Fluid 44 %
[2018-05-23] MEDS: DAPTOmycin Inj 500 MG in Sodium Chlor 0.9% Inj 100 ML IV.SIG SCH (18:37)
[2018-05-23] MEDS: Azithromycin Inj 250 MG in Sodium Chlor 0.9% Inj 250 ML IV.SIG SCH (20:12)
[2018-05-23] MEDS: Micafungin Inj 150 MG in Sodium Chlor 0.9% Inj 100 ML IV.SIG SCH (20:13)
[2018-05-23] MEDS: clonazePAM 0.5 MG Tablet G-TUBE PRN (20:13)
[2018-05-24] MEDS: Hyoscyamine Liq Drops 0.125 MG/ML 15 ML Bottle SL SCH ×4 (04:17→21:01)
[2018-05-24] MEDS: Sod Chloride 0.9% Inj 1,000 ML IV.CONT SCH ×4 (04:30→17:14)
[2018-05-24] MEDS: Ceftazidime/Avibactam Inj 0.94 GM in Sodium Chlor 0.9% Inj 50 ML IV.SIG SCH ×2 (06:16→18:15)
[2018-05-24] MEDS: Levothyroxine 150 MCG Tablet J-TUBE SCH (06:17)
[2018-05-24] MEDS: Morphine Sulfate Oral Liq 10 MG/0.5 ML Syringe SL PRN ×2 (06:18→21:21)
[2018-05-24 06:57] LABS: Hemoglobin 8.1 gm/dL (11.6-15.3); Mean Corpuscular HGB Conc 33.6 % (32.0-36.0); Mean Corpuscular Hemoglobin 29.1 pg (27.0-34.0); Mean Corpuscular Volume 86.8 fL (80.0-100.0); Mean Platelet Volume 9.4 fL (7.0-11.0); Platelet Count 113 th/mm3 (150-450); Red Blood Count 2.77 mil/mm3 (4.00-5.30); Red Cell Distribution Width 14.9 % (11.6-17.2); White Blood Count 2.6 th/mm3 (4.0-11.0)
[2018-05-24 07:44] LABS: Alanine Aminotransferase 42 U/L (10-53); Albumin 2.2 g/dL (3.4-5.0); Alkaline Phosphatase 103 U/L (45-117); Anion Gap 11 meq/L (5-15); Aspartate Aminotransferase 28 U/L (15-37); Blood Urea Nitrogen 51 mg/dL (7-18); Calcium 8.4 mg/dL (8.5-10.1); Carbon Dioxide 23.1 meq/L (21.0-32.0); Chloride 110 meq/L (98-107); Glomerular Filtration Rate 39 mL/min (>89); Glucose,Random 100 mg/dL (74-106); Magnesium 1.7 mg/dL (1.5-2.5); Phosphorus 3.1 mg/dL (2.5-4.9); Potassium 4.3 meq/L (3.5-5.1); Sodium 144 meq/L (136-145); Total Protein 6.1 g/dL (6.4-8.2)
[2018-05-24 08:11] LABS: Acanthocytes Occ; Blast Cells 3 % (0-0); Eosinophils 17 % (0-4); Lymphocytes 19 % (9-44); Monocytes 5 % (0-8); Myelocytes 3 % (0-0)
[2018-05-24 08:12] LABS: Ovalocytes 1+; Platelet Morphology Normal (Normal)
--- NOTE | 2018-05-24 08:56 | P.PN ---
Subjective Interval history: Patient doing well overnight. RN concerned with low blood pressure and tachycardia. Patient is symptomatic. Physical Exam Vital signs: Vital Signs 05/23/18 09:00 05/23/18 10:00 05/23/18 12:37 Temperature 98.5 F Pulse Rate 67 65 66 Respiratory Rate 24 Blood Pressure 110/53 L 109/55 L 110/60 Pulse Oximetry 98 99 99 05/23/18 15:19 05/23/18 15:49 05/23/18 16:04 Temperature 98.3 F 97.9 F 98.3 F Pulse Rate 65 66 Respiratory Rate 22 20 Blood Pressure 115/52 L 143/57 H Pulse Oximetry 100 96 05/23/18 17:00 05/23/18 20:00 05/23/18 21:29 Temperature 98.4 F Pulse Rate 65 72 Respiratory Rate 18 Blood Pressure 136/66 Pulse Oximetry 94 L 98 05/24/18 00:00 05/24/18 05:00 05/24/18 07:58 Temperature 98.2 F Pulse Rate 112 H Respiratory Rate 20 Blood Pressure 103/54 L Pulse Oximetry 96 97 Intake & Output 05/23/18 05/24/18 05/24/18 18:59 06:59 18:59 Intake Total 1100 / 1100 2650 / 2650 Output Total 1100 / 1100 Balance 1100 / 1100 1550 / 1550 Weight 55.5 kg Intake: IV 1100 / 1100 1700 / 1700 NS Inj 1,000 ML @ 100 mls/hr IV 1000 / 1000 1000 / 1000 .CONT .Q10H ANN Rx#:[id number] Azithromycin Inj 250 MG In NS 250 / 250 Inj 250 ML @ 250 mls/hr IV.SIG Q24H ANN Rx#:[id number] Avycaz Inj 0.94 GM In NS Inj 50 50 / 50 ML @ 25 mls/hr IV.SIG Q12H ANN Rx#:[id number] Cubicin Inj 500 MG In NS Inj 100 / 100 100 ML @ 200 mls/hr IV.SIG Q24H ANN Rx#:[id number] Mycamine Inj 150 MG In NS Inj 100 / 100 100 ML @ 100 mls/hr IV.SIG Q24H ANN Rx#:[id number] Flagyl 500 MG Inj 100 ML @ 100 100 / 100 200 / 200 mls/hr IV.SIG Q8H ANN Rx#: [id number] Tube Feeding 550 / 550 Water Bolus Amount 400 / 400 Output: Gastric Drainage 1100 / 1100 Gastrojejunostomy Tube 1100 / 1100 Other: # Voids 2 # Bowel Movements 1 Narrative: GENERAL: Elderly, chronically-ill appearing lady, generalized muscle wasting, in NAD SKIN: cool and dry. HEENT: Pupils equal and round. NECK: Trach in place. Mild secretions + CHEST: scattered rhonchi x2 HEART: RRR no M/R/G ABDOMEN: GJ tube in place with minimal erythema. +BS, nontender. EXTREMITIES: No LE edema. R 1st digit of foot with medial erythema and nail edge NEURO: Awake and alert. No gross deficits Results - Labs CBC & Chem 7: 05/24/18 05:31 05/24/18 05:31 Laboratory Results - last 24 hr 05/23/18 05/23/18 05/23/18 13:15 15:50 15:50 WBC RBC Hgb Hct MCV MCH MCHC RDW Plt Count MPV Prelim Diff (Auto) WBC Differential Seg Neuts % (Manual) Band Neuts % (Manual) Lymphocytes % (Manual) Monocytes % (Manual) Eosinophils % (Manual) Basophils % (Manual) Myelocytes % (Man) Blast Cells % (Manual) Abs Neuts (Manual) Differential Comment Platelet Estimate Platelet Morphology Ovalocytes Acanthocytes (Spur) PT 11.3 INR 1.1 Sodium Potassium Chloride Carbon Dioxide Anion Gap BUN Creatinine Estimated GFR Random Glucose Calcium Phosphorus Magnesium Total Bilirubin AST ALT Alkaline Phosphatase Total Protein Albumin Pleural RBC 5083 H Pleural Nuc Cells 558 H Pleural Neutrophils 44 Pleural Lymphocytes 47 Pleural Monocytes 4 Pleural Histocytes 5 Pleural Total Protein 2.8 Pleural LDH 105 Pleural Glucose 112 05/24/18 05/24/18 05:31 05:31 WBC 2.6 L RBC 2.77 L Hgb 8.1 L Hct 24.0 L MCV 86.8 MCH 29.1 MCHC 33.6 RDW 14.9 Plt Count 113 L MPV 9.4 Prelim Diff (Auto) Manual diff required WBC Differential Manual diff final Seg Neuts % (Manual) 47 Band Neuts % (Manual) 4 Lymphocytes % (Manual) 19 Monocytes % (Manual) 5 Eosinophils % (Manual) 17 H Basophils % (Manual) 2 Myelocytes % (Man) 3 H Blast Cells % (Manual) 3 H Abs Neuts (Manual) 1.4 L Differential Comment . Platelet Estimate Low L Platelet Morphology Normal Ovalocytes 1+ H Acanthocytes (Spur) Occ H PT INR Sodium 144 Potassium 4.3 Chloride 110 H Carbon Dioxide 23.1 Anion Gap 11 BUN 51 H Creatinine 1.34 H Estimated GFR 39 L Random Glucose 100 Calcium 8.4 L Phosphorus 3.1 Magnesium 1.7 Total Bilirubin 0.2 AST 28 ALT 42 Alkaline Phosphatase 103 Total Protein 6.1 L Albumin 2.2 L Pleural RBC Pleural Nuc Cells Pleural Neutrophils Pleural Lymphocytes Pleural Monocytes Pleural Histocytes Pleural Total Protein Pleural LDH Pleural Glucose Microbiology 05/22/18 17:10 Catheterized Urine Urine Culture - Preliminary Yeast species 05/22/18 17:10 Sputum - Endotracheal Gram Stain - Final 05/22/18 17:10 Sputum - Endotracheal Sputum Culture - Preliminary Immature growth - reincubate 05/22/18 18:05 Blood - Peripheral Aerobic Blood Culture - Preliminary No growth in 1 day 05/22/18 18:05 Blood - Peripheral Anaerobic Blood Culture - Preliminary No growth in 1 day 05/22/18 18:00 Blood - Peripheral Aerobic Blood Culture - Preliminary No growth in 1 day 05/22/18 18:00 Blood - Peripheral Anaerobic Blood Culture - Preliminary No growth in 1 day 05/19/18 18:00 Wound - Other Gram Stain - Final 05/19/18 18:00 Wound - Other Wound Culture - Final Pseudomonas aeruginosa Multidrug Resistant Enterococcus faecium VRE Caitlyn tropicalis - Imaging Impressions Chest Ultrasound 05/23/18 00:00 CONCLUSION: 1. Lastly 360 cc of pleural effusion on the left. This does not appear loculated or complex. Site was marked Chest X-Ray 05/23/18 00:00 CONCLUSION: No pneumothorax Thoracentesis Ultrasound 05/23/18 00:00 CONCLUSION: Uncomplicated ultrasound-guided left chest thoracentesis as above. Assessment and Plan - Assessment (1) Pneumonia Code(s): J18.9 - Pneumonia, unspecified organism Status: Acute (2) GERD (gastroesophageal reflux disease) Code(s): K21.9 - Gastro-esophageal reflux disease without esophagitis Status: Chronic (3) DVT (deep venous thrombosis) Code(s): I82.409 - Acute embolism and thrombosis of unspecified deep veins of unspecified lower extremity Status: Acute (4) Hypothyroidism Code(s): E03.9 - Hypothyroidism, unspecified Status: Chronic (5) Laryngeal squamous cell carcinoma Code(s): C32.9 - Malignant neoplasm of larynx, unspecified Status: Chronic (6) Protein-calorie malnutrition, severe Code(s): E43 - Unspecified severe protein-calorie malnutrition Status: Chronic - Plan This is a 73-year-old female with 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 The rapid response was called and the patient was transferred to ICU where she was placed on 60% oxygenation via trach collar. [facility] reconsulted 05/23 due to hypotension. Currently managed for recurrent respiratory infections with MDRO managed by ID. CT chest does demonstrate a moderate left pleural effusion with left lower lobe atelectasis s/p thoracocentesis, now managed by [facility] 1. NEURO: -Depression Continue Lexapro and Wellbutrin -Anxiety Klonopin 0.5 mg per G-tube every 8 hours Temazepam PRN insomnia 2. RESP: -History of squamous cell carcinoma of the larynx now status post tracheostomy due to recurrent aspiration Spiculated right upper lobe pulmonary nodule, multiple R pulmonary nodules Dr. Pineda has discussed risk/ benefits of biopsy with patient and her son on 05/05 and at that time they opted to defer biopsy. Per recent palliative care note there has been discussion of possibly pursuing biopsy. At this point patient is not stable for biopsy. Pulmonology following, Dr. Marcelino -LLL atelectasis and moderate pleural effusion s/p thoracocentisis on 05/23, pending Cx 3. CV: -Hypotension and Tachycardic Secondary to volume depletion, s/p IVF's in ICU on 05/23 Asymptomatic We will give 1 L bolus and then continuous IV fluids at 125 mils per hour 4. GI: -GERD Prevacid 30 mg per G-tube daily -Gastroparesis Chronic moderate protein energy malnutrition G tube to gravity. Continuous tube feeds with Vital 1.5 @ 55 ml/hr via J tube. Azithromycin 250 mg IV daily for gastric motility. Local wound care with bacitracin to G J-tube site. 5. FEN/RENAL: -CKD stage III Vitamin C supplementation Voiding, nephro on board Monitor BMP, Creat 1.34 today from 1.45 6. ID: MDRO PSAE persistent colonisation PNA BLL, MDRO PSAE, Acinetobacter ID following, Dr. Canchola. Maher cultures and repeat C. difficile ordered 05/22, pending results. Bld Cx NG 1 day, UA Neg, Sputum pending On antimicrobial therapy per infectious disease for MDRO (micafungin, avycaz, daptomycin, Flagyl) 7. HEME: DVT right lower extremity on ultrasound 03/27/18 Cont. Lovenox 60 mg Pancytopenia, chronic Hgb 8.1, Plt 113 on 05/21 Cont. to monitor ENDO: 8. Hypothyroidism Continue Synthroid 150 mcg per G-tube daily INTEGUMENTARY 9. R 1st digit of foot with increased erythema s/p trimming of ingrow toenail Will reconsult Podiatry (of note patient on ABX for other infections) 10. DVT PPX: txt with Lovenox. 11. DISPO: Monitor BP and HR, Cont. ABX and Podiatry reccs Code Status: full Discussed Condition With: patient, RN (4) Hypothyroidism Qualifiers: Hypothyroidism type: unspecified Qualified Code(s): E03.9 - Hypothyroidism, unspecified
[2018-05-24] MEDS: Sodium Chloride 0.9% 2 ML Flush BID IV.FLUSH SCH ×2 (09:00→20:55)
[2018-05-24] MEDS: Lactobacillus Acidophilus/L. Spores Tablet J-TUBE SCH ×3 (09:00→18:16)
[2018-05-24] MEDS: buPROPion 75 MG Tablet J-TUBE SCH ×2 (09:00→21:01)
[2018-05-24] MEDS ORDERED: Sod Chloride 0.9% Inj 1,000 ML IV.SIG SCH (09:30)
[2018-05-24] MEDS: Simethicone 125 MG Chew Tablet J-TUBE PRN (10:21)
[2018-05-24] MEDS: Ascorbic Acid 500 MG Tablet J-TUBE SCH ×2 (10:21→21:00)
--- NOTE | 2018-05-24 12:58 | P.PNGI ---
Subjective Interval history: s/p thoracentesis gastric residual 400 cc JT feeding continues 55 c / hr Physical Exam Vital signs: Vital Signs 05/23/18 15:19 05/23/18 15:49 05/23/18 16:04 Temperature 98.3 F 97.9 F 98.3 F Pulse Rate 65 66 Respiratory Rate 22 20 Blood Pressure 115/52 L 143/57 H Pulse Oximetry 100 96 05/23/18 17:00 05/23/18 20:00 05/23/18 21:29 Temperature 98.4 F Pulse Rate 65 72 Respiratory Rate 18 Blood Pressure 136/66 Pulse Oximetry 94 L 98 05/24/18 00:00 05/24/18 05:00 05/24/18 07:00 Temperature 98.2 F Pulse Rate 112 H Respiratory Rate 20 18 Blood Pressure 103/54 L Pulse Oximetry 96 05/24/18 07:58 05/24/18 08:00 05/24/18 09:40 Temperature 99.0 F 99.1 F Pulse Rate 123 H 123 H Respiratory Rate 18 18 Blood Pressure 80/40 L 88/42 L Pulse Oximetry 97 95 95 Intake & Output 05/23/18 05/24/18 05/24/18 18:59 06:59 18:59 Intake Total 1100 / 1100 2650 / 2650 Output Total 1100 / 1100 Balance 1100 / 1100 1550 / 1550 Weight 55.5 kg Intake: IV 1100 / 1100 1700 / 1700 NS Inj 1,000 ML @ 100 mls/hr IV 1000 / 1000 1000 / 1000 .CONT .Q10H ANN Rx#:[id number] Azithromycin Inj 250 MG In NS 250 / 250 Inj 250 ML @ 250 mls/hr IV.SIG Q24H ANN Rx#:[id number] Avycaz Inj 0.94 GM In NS Inj 50 50 / 50 ML @ 25 mls/hr IV.SIG Q12H ANN Rx#:[id number] Cubicin Inj 500 MG In NS Inj 100 / 100 100 ML @ 200 mls/hr IV.SIG Q24H ANN Rx#:[id number] Mycamine Inj 150 MG In NS Inj 100 / 100 100 ML @ 100 mls/hr IV.SIG Q24H ANN Rx#:[id number] Flagyl 500 MG Inj 100 ML @ 100 100 / 100 200 / 200 mls/hr IV.SIG Q8H ANN Rx#: [id number] Tube Feeding 550 / 550 Water Bolus Amount 400 / 400 Output: Gastric Drainage 1100 / 1100 Gastrojejunostomy Tube 1100 / 1100 Other: # Voids 2 # Bowel Movements 1 - Constitutional no acute distress - Routine Cardiovascular Exam Present: S1, S2 - Routine Abdominal Exam Comments: sight distention noted bs present GJ tube in place Results - Labs CBC & Chem 7: 05/24/18 05:31 05/24/18 05:31 Laboratory Results - last 24 hr 05/22/18 05/23/18 05/23/18 17:10 13:15 15:50 WBC RBC Hgb Hct MCV MCH MCHC RDW Plt Count MPV Prelim Diff (Auto) WBC Differential Seg Neuts % (Manual) Band Neuts % (Manual) Lymphocytes % (Manual) Monocytes % (Manual) Eosinophils % (Manual) Basophils % (Manual) Myelocytes % (Man) Blast Cells % (Manual) Abs Neuts (Manual) Differential Comment Platelet Estimate Platelet Morphology Ovalocytes Acanthocytes (Spur) PT 11.3 INR 1.1 Sodium Potassium Chloride Carbon Dioxide Anion Gap BUN Creatinine Estimated GFR Random Glucose Calcium Phosphorus Magnesium Total Bilirubin AST ALT Alkaline Phosphatase Total Protein Albumin Urine Color Yellow Urine Clarity Hazy H Urine pH 5.0 Ur Specific [place] 1.012 Urine Protein Negative Urine Glucose (UA) Negative Urine Ketones Negative Urine Occult Blood Negative Urine Nitrate Negative Urine Bilirubin Negative Urine Urobilinogen Less than 2 Ur Leukocyte Esterase Trace H Urine RBC Less than 1 Urine WBC 10 H Urine Bacteria Rare H Urine Yeast Few H Micro UA Comment Cath-culture ind Urine Culture Comments Cath-cult indicated Pleural RBC 5083 H Pleural Nuc Cells 558 H Pleural Neutrophils 44 Pleural Lymphocytes 47 Pleural Monocytes 4 Pleural Histocytes 5 Pleural Total Protein Pleural LDH Pleural Glucose 05/23/18 05/24/18 05/24/18 15:50 05:31 05:31 WBC 2.6 L RBC 2.77 L Hgb 8.1 L Hct 24.0 L MCV 86.8 MCH 29.1 MCHC 33.6 RDW 14.9 Plt Count 113 L MPV 9.4 Prelim Diff (Auto) Manual diff required WBC Differential Manual diff final Seg Neuts % (Manual) 47 Band Neuts % (Manual) 4 Lymphocytes % (Manual) 19 Monocytes % (Manual) 5 Eosinophils % (Manual) 17 H Basophils % (Manual) 2 Myelocytes % (Man) 3 H Blast Cells % (Manual) 3 H Abs Neuts (Manual) 1.4 L Differential Comment . Platelet Estimate Low L Platelet Morphology Normal Ovalocytes 1+ H Acanthocytes (Spur) Occ H PT INR Sodium 144 Potassium 4.3 Chloride 110 H Carbon Dioxide 23.1 Anion Gap 11 BUN 51 H Creatinine 1.34 H Estimated GFR 39 L Random Glucose 100 Calcium 8.4 L Phosphorus 3.1 Magnesium 1.7 Total Bilirubin 0.2 AST 28 ALT 42 Alkaline Phosphatase 103 Total Protein 6.1 L Albumin 2.2 L Urine Color Urine Clarity Urine pH Ur Specific [place] Urine Protein Urine Glucose (UA) Urine Ketones Urine Occult Blood Urine Nitrate Urine Bilirubin Urine Urobilinogen Ur Leukocyte Esterase Urine RBC Urine WBC Urine Bacteria Urine Yeast Micro UA Comment Urine Culture Comments Pleural RBC Pleural Nuc Cells Pleural Neutrophils Pleural Lymphocytes Pleural Monocytes Pleural Histocytes Pleural Total Protein 2.8 Pleural LDH 105 Pleural Glucose 112 Microbiology 05/22/18 17:10 Catheterized Urine Urine Culture - Final Caitlyn tropicalis 05/22/18 18:05 Blood - Peripheral Aerobic Blood Culture - Preliminary No growth in 2 days 05/22/18 18:05 Blood - Peripheral Anaerobic Blood Culture - Preliminary No growth in 2 days 05/22/18 18:00 Blood - Peripheral Aerobic Blood Culture - Preliminary No growth in 2 days 05/22/18 18:00 Blood - Peripheral Anaerobic Blood Culture - Preliminary No growth in 2 days 05/22/18 17:10 Sputum - Endotracheal Gram Stain - Final 05/22/18 17:10 Sputum - Endotracheal Sputum Culture - Preliminary gram negative rods 05/23/18 15:50 Fluid - Pleural fluid Gram Stain - Final - Imaging Impressions Chest X-Ray 05/23/18 00:00 CONCLUSION: No pneumothorax Thoracentesis Ultrasound 05/23/18 00:00 CONCLUSION: Uncomplicated ultrasound-guided left chest thoracentesis as above. Assessment and Plan (1) Gastroparesis Status: Acute Code(s): K31.84 - Gastroparesis - Attending Attestation continue present therapy and erythro for molility purposes monitot residual local wound care to peg site
--- NOTE | 2018-05-24 14:56 | P.PNPOD ---
Subjective Interval history: Patient seen bedside. Alert awake and oriented x3. States she is still having pain to right hallux medial border. Physical Exam Vital signs: Vital Signs 05/23/18 15:19 05/23/18 15:49 05/23/18 16:04 Temperature 98.3 F 97.9 F 98.3 F Pulse Rate 65 66 Respiratory Rate 22 20 Blood Pressure 115/52 L 143/57 H Pulse Oximetry 100 96 05/23/18 17:00 05/23/18 20:00 05/23/18 21:29 Temperature 98.4 F Pulse Rate 65 72 Respiratory Rate 18 Blood Pressure 136/66 Pulse Oximetry 94 L 98 05/24/18 00:00 05/24/18 05:00 05/24/18 07:00 Temperature 98.2 F Pulse Rate 112 H Respiratory Rate 20 18 Blood Pressure 103/54 L Pulse Oximetry 96 05/24/18 07:58 05/24/18 08:00 05/24/18 09:40 Temperature 99.0 F 99.1 F Pulse Rate 123 H 123 H Respiratory Rate 20 18 Blood Pressure 80/40 L 88/42 L Pulse Oximetry 97 95 95 05/24/18 10:00 05/24/18 12:00 05/24/18 14:00 Temperature 99.4 F 99.5 F 99.4 F Pulse Rate 130 H 86 89 Respiratory Rate 14 18 14 Blood Pressure 90/55 L 122/65 112/52 L Pulse Oximetry 95 96 96 05/24/18 14:16 Temperature Pulse Rate 84 Respiratory Rate Blood Pressure Pulse Oximetry Intake & Output 05/23/18 05/24/18 05/24/18 18:59 06:59 18:59 Intake Total 1100 / 1100 2650 / 2650 Output Total 1100 / 1100 Balance 1100 / 1100 1550 / 1550 Weight 55.5 kg Intake: IV 1100 / 1100 1700 / 1700 NS Inj 1,000 ML @ 100 mls/hr IV 1000 / 1000 1000 / 1000 .CONT .Q10H ANN Rx#:[id number] Azithromycin Inj 250 MG In NS 250 / 250 Inj 250 ML @ 250 mls/hr IV.SIG Q24H ANN Rx#:[id number] Avycaz Inj 0.94 GM In NS Inj 50 50 / 50 ML @ 25 mls/hr IV.SIG Q12H ANN Rx#:[id number] Cubicin Inj 500 MG In NS Inj 100 / 100 100 ML @ 200 mls/hr IV.SIG Q24H [facility] Rx#:[id number] Mycamine Inj 150 MG In NS Inj 100 / 100 100 ML @ 100 mls/hr IV.SIG Q24H [facility] Rx#:[id number] Flagyl 500 MG Inj 100 ML @ 100 100 / 100 200 / 200 mls/hr IV.SIG Q8H [facility] Rx#: [id number] Tube Feeding 550 / 550 Water Bolus Amount 400 / 400 Output: Gastric Drainage 1100 / 1100 Gastrojejunostomy Tube 1100 / 1100 Other: # Voids 2 Date of Last Bowel Movement 05/24/18 # Bowel Movements 1 Narrative: Continued erythema and edema noted to right hallux medial border with tenderness on palpation. Sanguinous drainage upon compression, no purulent drainage or serous drainage noted upon compression. No fluctuance or crepitance noted. Nonpalpable DP PT pulses. Capillary refill time under 3 seconds to digits x5 right foot. Medications and Allergies Active Medications: Active Medications Acetaminophen (Tylenol) 650 mg J-TUBE Q4H PRN PRN Reason: ELEVATED TEMP/HEADACHE Last Admin: 05/08/18 00:17 Dose: 650 mg Hydrocodone Bitart/Acetaminophen ([place] 5/325) 1 tab J-TUBE Q4H PRN PRN Reason: PAIN 2-5 Last Admin: 05/21/18 10:19 Dose: 1 tab Hydrocodone Bitart/Acetaminophen ([place] 5/325) 2 tab J-TUBE Q4H PRN PRN Reason: PAIN 6-10 Last Admin: 05/23/18 20:13 Dose: 2 tab Al Hydroxide/Mg Hydroxide (Milk Of Dhruv Bain) 30 ml J-TUBE Q12H PRN PRN Reason: Mild Constipation Albuterol (Duoneb Neb (Prn)) 1 ampul NEB Q2HR NEB PRN PRN Reason: WHEEZING Last Admin: 05/10/18 17:05 Dose: 1 ampul Ascorbic Acid (Vitamin C) 500 mg J-TUBE BID [facility] Last Admin: 05/24/18 10:21 Dose: 500 mg Bisacodyl (Dulcolax Supp) 10 mg RECTAL DAILY PRN PRN Reason: SEVERE CONSITIPATION Bupropion HCl (Wellbutrin) 150 mg J-TUBE BID [facility] Last Admin: 05/24/18 09:00 Dose: 150 mg Cetirizine HCl (Zyrtec) 10 mg J-TUBE HS ANN Last Admin: 05/23/18 20:14 Dose: 10 mg Clonazepam (Klonopin) 0.5 mg G-TUBE Q8HR PRN PRN Reason: ANXIETY Last Admin: 05/23/18 20:13 Dose: 0.5 mg Diphenhydramine HCl (Benadryl) 25 mg J-TUBE Q4H PRN PRN Reason: ITCHING Last Admin: 05/09/18 09:07 Dose: 25 mg Enoxaparin Sodium (Lovenox Inj) 60 mg SQ Q24H ANN Last Admin: 05/23/18 08:49 Dose: Not Given Escitalopram Oxalate (Lexapro) 20 mg J-TUBE DAILY ANN Last Admin: 05/24/18 09:00 Dose: 20 mg Glycopyrrolate (Robinul Inj) 0.4 mg IV.PUSH Q8H PRN PRN Reason: THICK SECRETIONS Last Admin: 05/16/18 10:22 Dose: 0.4 mg Hyoscyamine (Levsin Liq) 0.125 mg SL Q6H ANN Last Admin: 05/24/18 10:23 Dose: 0.125 mg Sodium Chloride (Ns Inj) 1,000 mls @ 100 mls/hr IV.CONT .Q10H ANN Last Admin: 05/24/18 04:30 Dose: 100 mls/hr Azithromycin 250 mg/ Sodium (Chloride) 250 mls @ 250 mls/hr IV.SIG Q24H ANN Last Infusion: 05/23/18 21:15 Dose: Infused Ceftazidime/Avibactam 0.94 gm/ (Sodium Chloride) 50 mls @ 25 mls/hr IV.SIG Q12H ANN Last Admin: 05/24/18 06:16 Dose: 25 mls/hr Metronidazole/Sodium Chloride (Flagyl 500 Mg Inj) 100 mls @ 100 mls/hr IV.SIG Q8H ANN Last Admin: 05/24/18 09:00 Dose: 100 mls/hr Micafungin Sodium 150 mg/ (Sodium Chloride) 100 mls @ 100 mls/hr IV.SIG Q24H ANN Last Infusion: 05/23/18 21:15 Dose: Infused Daptomycin 500 mg/ Sodium (Chloride) 100 mls @ 200 mls/hr IV.SIG Q24H [facility] Last Infusion: 05/23/18 19:07 Dose: Infused Sodium Chloride (Ns Inj) 1,000 mls @ 125 mls/hr IV.CONT .Q8H [facility] Lactobacillus Acidophilus (Lactinex) 1 tab J-TUBE TID [facility] Last Admin: 05/24/18 09:00 Dose: 1 tab Lansoprazole (Prevacid Solutab) 30 mg J-TUBE DAILY [facility] Last Admin: 05/24/18 09:00 Dose: 30 mg Levothyroxine Sodium (Synthroid) 150 mcg J-TUBE DAILY@0600 [facility] Last Admin: 05/24/18 06:17 Dose: 150 mcg Lidocaine HCl (Xylocaine 2% Viscous) 2.5 ml OROPHARYNG Q6H PRN PRN Reason: SEE LABEL COMMENTS Last Admin: 05/02/18 21:05 Dose: 2.5 ml Loperamide HCl (Imodium Liq) 2 mg J-TUBE PRN PRN PRN Reason: diarrhea Last Admin: 05/22/18 09:53 Dose: 2 mg Miscellaneous (Pill Splitter) 1 each OTHER UNSCH PRN PRN Reason: SEE LABEL COMMENTS Morphine Sulfate (Roxanol Liq) 5 mg SL Q4H PRN PRN Reason: BREAKTHROUGH pain 2-10 Last Admin: 05/24/18 06:18 Dose: 5 mg Multivitamins (Theragran) 1 tab J-TUBE DAILY [facility] Last Admin: 05/24/18 09:00 Dose: 1 tab Ondansetron HCl (Zofran Odt) 4 mg PO Q6H PRN PRN Reason: NAUSEA OR VOMITING Sennosides (Senokot) 17.2 mg J-TUBE Q12H PRN PRN Reason: Moderate Constipation Simethicone (Phazyme Chew) 125 mg J-TUBE Q4H PRN PRN Reason: RELATING TO BLOATING Last Admin: 05/24/18 10:21 Dose: 125 mg Sodium Chloride (Ns Flush) 2 ml IV.FLUSH BID [facility] Last Admin: 05/24/18 09:00 Dose: 2 ml Sodium Chloride (Ns Flush) 2 ml IV.FLUSH PRN PRN PRN Reason: FLUSH AFTER USING IV ACCESS Sterile Water (Free Water) 0 ml J-TUBE Q8HR [facility] Last Admin: 05/24/18 06:17 Dose: 200 ml Temazepam (Restoril) 15 mg J-TUBE HS PRN PRN Reason: INSOMNIA Last Admin: 05/16/18 20:17 Dose: 15 mg Zinc Oxide (Zinc Oxide 20% Oint) 1 applicatio TOPICAL BID [facility] Last Admin: 05/24/18 09:00 Dose: 1 applicatio Zinc Sulfate (Zinc-220) 220 mg J-TUBE DAILY [facility] Last Admin: 05/24/18 09:00 Dose: 220 mg Allergies Allergy/AdvReac Type Severity Reaction Status Date / Time epinephrine Allergy Severe TACHYCARDIA Verified 02/21/18 08:40 penicillin G Allergy Severe Hives Verified 02/21/18 08:40 peanut Allergy Intermediate ANAPHYLAXIS Verified 02/21/18 08:40 legumes Allergy Unknown Anaphylaxis Verified 03/06/18 21:48 soy Allergy Rash Verified 03/06/18 21:45 Home Medications Medication Instructions Recorded Confirmed Type cetirizine 10 mg PO HS 02/15/18 05/13/18 History escitalopram oxalate 20 mg FEEDING TUBE DAILY 02/15/18 05/13/18 History levothyroxine 100 mcg FEEDING TUBE DAILY 02/15/18 05/13/18 History ascorbic acid (vitamin C) 500 mg FEEDING TUBE BID 03/06/18 05/13/18 History multivitamin [Daily Multi-Vitamin] 1 tab FEEDING TUBE DAILY 03/06/18 05/13/18 History Results - Labs CBC & Chem 7: 05/24/18 05:31 05/24/18 05:31 Laboratory Results - last 24 hr 05/22/18 05/23/18 05/23/18 17:10 15:50 15:50 WBC RBC Hgb Hct MCV MCH MCHC RDW Plt Count MPV Prelim Diff (Auto) WBC Differential Seg Neuts % (Manual) Band Neuts % (Manual) Lymphocytes % (Manual) Monocytes % (Manual) Eosinophils % (Manual) Basophils % (Manual) Myelocytes % (Man) Blast Cells % (Manual) Abs Neuts (Manual) Differential Comment Platelet Estimate Platelet Morphology Ovalocytes Acanthocytes (Spur) Sodium Potassium Chloride Carbon Dioxide Anion Gap BUN Creatinine Estimated GFR Random Glucose Calcium Phosphorus Magnesium Total Bilirubin AST ALT Alkaline Phosphatase Total Protein Albumin Urine Color Yellow Urine Clarity Hazy H Urine pH 5.0 Ur Specific Campbell 1.012 Urine Protein Negative Urine Glucose (UA) Negative Urine Ketones Negative Urine Occult Blood Negative Urine Nitrate Negative Urine Bilirubin Negative Urine Urobilinogen Less than 2 Ur Leukocyte Esterase Trace H Urine RBC Less than 1 Urine WBC 10 H Urine Bacteria Rare H Urine Yeast Few H Micro UA Comment Cath-culture ind Urine Culture Comments Cath-cult indicated Pleural RBC 5083 H Pleural Nuc Cells 558 H Pleural Neutrophils 44 Pleural Lymphocytes 47 Pleural Monocytes 4 Pleural Histocytes 5 Pleural Total Protein 2.8 Pleural LDH 105 Pleural Glucose 112 05/24/18 05/24/18 05:31 05:31 WBC 2.6 L RBC 2.77 L Hgb 8.1 L Hct 24.0 L MCV 86.8 MCH 29.1 MCHC 33.6 RDW 14.9 Plt Count 113 L MPV 9.4 Prelim Diff (Auto) Manual diff required WBC Differential Manual diff final Seg Neuts % (Manual) 47 Band Neuts % (Manual) 4 Lymphocytes % (Manual) 19 Monocytes % (Manual) 5 Eosinophils % (Manual) 17 H Basophils % (Manual) 2 Myelocytes % (Man) 3 H Blast Cells % (Manual) 3 H Abs Neuts (Manual) 1.4 L Differential Comment . Platelet Estimate Low L Platelet Morphology Normal Ovalocytes 1+ H Acanthocytes (Spur) Occ H Sodium 144 Potassium 4.3 Chloride 110 H Carbon Dioxide 23.1 Anion Gap 11 BUN 51 H Creatinine 1.34 H Estimated GFR 39 L Random Glucose 100 Calcium 8.4 L Phosphorus 3.1 Magnesium 1.7 Total Bilirubin 0.2 AST 28 ALT 42 Alkaline Phosphatase 103 Total Protein 6.1 L Albumin 2.2 L Urine Color Urine Clarity Urine pH Ur Specific Campbell Urine Protein Urine Glucose (UA) Urine Ketones Urine Occult Blood Urine Nitrate Urine Bilirubin Urine Urobilinogen Ur Leukocyte Esterase Urine RBC Urine WBC Urine Bacteria Urine Yeast Micro UA Comment Urine Culture Comments Pleural RBC Pleural Nuc Cells Pleural Neutrophils Pleural Lymphocytes Pleural Monocytes Pleural Histocytes Pleural Total Protein Pleural LDH Pleural Glucose Microbiology 05/23/18 15:50 Fluid - Pleural fluid Gram Stain - Final 05/23/18 15:50 Fluid - Pleural fluid Body Fluid Culture - Preliminary No growth in 24 hours 05/22/18 17:10 Catheterized Urine Urine Culture - Final Caitlyn tropicalis 05/22/18 18:05 Blood - Peripheral Aerobic Blood Culture - Preliminary No growth in 2 days 05/22/18 18:05 Blood - Peripheral Anaerobic Blood Culture - Preliminary No growth in 2 days 05/22/18 18:00 Blood - Peripheral Aerobic Blood Culture - Preliminary No growth in 2 days 05/22/18 18:00 Blood - Peripheral Anaerobic Blood Culture - Preliminary No growth in 2 days 05/22/18 17:10 Sputum - Endotracheal Gram Stain - Final 05/22/18 17:10 Sputum - Endotracheal Sputum Culture - Preliminary gram negative rods - Imaging Impressions Chest X-Ray 05/23/18 00:00 CONCLUSION: No pneumothorax Thoracentesis Ultrasound 05/23/18 00:00 CONCLUSION: Uncomplicated ultrasound-guided left chest thoracentesis as above. Assessment and Plan - Assessment (1) Ingrown nail of great toe of right foot Code(s): L60.0 - Ingrowing nail Status: Acute - Plan 73-year-old female with right hallux medial border paronychia Recommend Betadine and triple antibiotic with Band-Aid Will evaluate tomorrow and if there is no improvement we will move forward with more aggressive partial nail avulsion versus total nail avulsion Please have materials bedside Consent to be obtained for right hallux nail avulsion
[2018-05-24] MEDS ORDERED: Lidocaine 1% Inj 50 ML Vial INFILTRATN PRN (15:47)
[2018-05-24] MEDS: Azithromycin Inj 250 MG in Sodium Chlor 0.9% Inj 250 ML IV.SIG SCH (16:13)
--- NOTE | 2018-05-24 17:21 | ECHRPT ---
EXAM DATE: 05/24/2018 12:00 AM EDT AGE/SEX: 73 years / Female INDICATIONS: Nonpalpable dt/pt pulses right foot CLINICAL DATA: This is the patient's initial encounter. Patient reports that signs and symptoms have been present for 4 - 6 days and indicates a pain score of 6/10. MEDICAL/SURGICAL HISTORY: . MRSA, arthritis, burettes esophagus, cuong, hypothyroidism, skin canc er forehead, squamous cell cancer larynx, supraglottis . cholecystectomy, colonoscopy, esoph dilatat ion, EGD, hernia, oral surgery, tonsillectomy, adenoidectomy COMPARISON: No prior exams available for comparison. TECHNIQUE: Four-cuff ankle and brachial pressures were obtained. Pulse cuff waveform tracings of the ankles were recorded, and ankle-brachial indices were calculated. PRESSURES (mmHg): Brachial (arm) : RIGHT: 123, LEFT: iv site Ankle : RIGHT: 39, LEFT: 61 DIANA : RIGHT: 0.32, LEFT: 0.50 TBI : RIGHT: 0.00, LEFT: 0.35 FINDINGS: Pulsed-Cuff Waveform: Monophasic waveforms bilaterally. Other: None. CONCLUSION: 1. Severe reduction of the ABIs bilaterally. Electronically signed by: Gab Caro MD 05/24/2018 5:19 PM EDT
[2018-05-24] MEDS: clonazePAM 0.5 MG Tablet G-TUBE PRN (17:22)
[2018-05-24] MEDS: Micafungin Inj 150 MG in Sodium Chlor 0.9% Inj 100 ML IV.SIG SCH (20:55)
[2018-05-24] MEDS: DAPTOmycin Inj 500 MG in Sodium Chlor 0.9% Inj 100 ML IV.SIG SCH (20:55)
[2018-05-25] MEDS ORDERED: Metoprolol Tartrate 25 MG Tablet G-TUBE ONE (00:14)
[2018-05-25] MEDS: Sod Chloride 0.9% Inj 1,000 ML IV.CONT SCH ×5 (01:37→16:59)
[2018-05-25] MEDS: Hyoscyamine Liq Drops 0.125 MG/ML 15 ML Bottle SL SCH ×4 (06:01→21:18)
[2018-05-25] MEDS: Levothyroxine 150 MCG Tablet J-TUBE SCH (06:01)
[2018-05-25] MEDS: Ceftazidime/Avibactam Inj 0.94 GM in Sodium Chlor 0.9% Inj 50 ML IV.SIG SCH ×2 (06:01→17:05)
[2018-05-25 08:56] LABS: Mean Corpuscular HGB Conc 34.1 % (32.0-36.0); Mean Corpuscular Hemoglobin 29.3 pg (27.0-34.0); Mean Corpuscular Volume 85.9 fL (80.0-100.0); Platelet Count 127 th/mm3 (150-450); Red Blood Count 2.35 mil/mm3 (4.00-5.30); Red Cell Distribution Width 14.6 % (11.6-17.2); White Blood Count 3.5 th/mm3 (4.0-11.0)
[2018-05-25] MEDS: Sodium Chloride 0.9% 2 ML Flush BID IV.FLUSH SCH ×2 (09:00→21:17)
[2018-05-25 09:17] LABS: Hematocrit 20.1 % (35.0-46.0); Hemoglobin 6.9 gm/dL (11.6-15.3)
[2018-05-25 09:18] LABS: Alanine Aminotransferase 32 U/L (10-53)
[2018-05-25 09:20] LABS: Alkaline Phosphatase 83 U/L (45-117); Total Protein 5.7 g/dL (6.4-8.2)
[2018-05-25] MEDS ORDERED: Acetaminophen 325 MG Tablet G-TUBE PRN (09:22)
--- NOTE | 2018-05-25 09:34 | XR ---
EXAM DATE: 05/25/2018 9:00 AM EDT AGE/SEX: 73 years / Female INDICATIONS: Short of breath CLINICAL DATA: This is the patient's subsequent encounter. Patient reports that signs and symptoms h ave been present for 4 - 6 days and indicates a pain score of Nonresponsive. MEDICAL/SURGICAL HISTORY: . Carcinoma, cervical. Carcinoma, rectal. Gastroesophageal reflux dis ease. . . Cholecystectomy. Appendectomy. Hysterectomy COMPARISON: . FINDINGS: There is a tracheostomy tube in place. Heart size is normal. The lungs are essentially mild diffuse i ncreased interstitial markings. There is further increased density at the left base with silhouetting of the left hemidiaphragm. CONCLUSION: Diffuse increased interstitial markings likely related to diffuse processes such as edema. Left base atelectasis or consolidation. Some degree of left effusion can be considered. There is silh ouetting of the left hemidiaphragm. Electronically signed by: Gee Foote MD 05/25/2018 9:33 AM EDT
[2018-05-25 09:43] LABS: Anion Gap 10 meq/L (5-15); Aspartate Aminotransferase 24 U/L (15-37); Blood Urea Nitrogen 46 mg/dL (7-18); Calcium 8.1 mg/dL (8.5-10.1); Carbon Dioxide 24.2 meq/L (21.0-32.0); Chloride 108 meq/L (98-107); Glomerular Filtration Rate 39 mL/min (>89); Glucose,Random 127 mg/dL (74-106); Potassium 4.7 meq/L (3.5-5.1); Sodium 142 meq/L (136-145)
[2018-05-25 09:55] LABS: Blast Cells 2 % (0-0); Eosinophils 7 % (0-4); Lymphocytes 24 % (9-44); Monocytes 1 % (0-8); Myelocytes 4 % (0-0); Platelet Morphology Normal (Normal)
[2018-05-25 09:56] LABS: Ovalocytes 1+
[2018-05-25] MEDS ORDERED: Sodium Chlor 0.9% Inj 250 ML IV.SIG SCH (10:00)
[2018-05-25] MEDS: Lactobacillus Acidophilus/L. Spores Tablet J-TUBE SCH ×3 (10:27→17:06)
[2018-05-25] MEDS: Ascorbic Acid 500 MG Tablet J-TUBE SCH ×2 (10:28→21:17)
[2018-05-25] MEDS: buPROPion 75 MG Tablet J-TUBE SCH ×2 (10:28→21:20)
--- NOTE | 2018-05-25 10:59 | P.PNIM ---
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 The rapid response was called and the patient was transferred to ICU where she was placed on 60% oxygenation via trach collar. The critical care medicine was consulted for an admission. Subjective: [facility] reconsulted 05/23 due to hypotension. She has been on the hospitalist service, followed by multiple consulting services. She is s/p trach with recurrent respiratory infections with MDRO managed by ID. She has significant respiratory secretions with suctioning, these are reportedly increased. She is afebrile, persistent pancytopenia. She has a G/J tube, G tube is kept to gravity with high output, ~1-2 L of bilious drainage per day. She has been followed by gastroenterology, on pharmacotherapy for gastric motility. Upper GI 05/21 showed no evidence of obstruction. Today she developed hypotension with SBP 80/40. BP ultimately normalized after [address] chest/ abd pelvis was obtained. G/J tube is in satisfactory position and there are no acute intra- abdominal findings. CT chest does demonstrate a moderate left pleural effusion with left lower lobe atelectasis. She has been having loose stools. Repeat C. difficile PCR pending 05-24 TRANSFERRED BACK TO OUR SERVICE AGAIN REMAINS FULL CODE 10-7 NOTED TO BE ANEMIC WILL TRANSFUSE 3UNITS PRBC TODAY HAD LOWER SATS- DEEP SUCTIONING BY RESPIRATORY HAS IMPROVED THIS TO 96% DW RN AND PT TRANSFUSE TODAY Physical Exam Vital signs: Vital Signs 05/24/18 12:00 05/24/18 14:00 05/24/18 14:16 Temperature 99.5 F 99.4 F Pulse Rate 86 89 84 Respiratory Rate 18 14 Blood Pressure 122/65 112/52 L Pulse Oximetry 96 96 05/24/18 16:00 05/24/18 16:57 05/24/18 20:00 Temperature 99.3 F 99.8 F H 98.3 F Pulse Rate 93 H 112 H 117 H Respiratory Rate 16 18 24 Blood Pressure 100/52 L 95/48 L 101/57 L Pulse Oximetry 95 98 92 L 05/25/18 00:00 05/25/18 01:30 05/25/18 04:00 Temperature 98.4 F 98.5 F Pulse Rate 122 H 69 74 Respiratory Rate 24 24 20 Blood Pressure 106/55 L 106/53 L 111/52 L Pulse Oximetry 92 L 92 L 95 05/25/18 08:00 05/25/18 09:43 05/25/18 09:52 Temperature 99.9 F H 100.0 F H Pulse Rate 75 100 H Respiratory Rate 22 22 Blood Pressure 100/50 L 98/48 L Pulse Oximetry 95 94 L 94 L 05/25/18 10:44 Temperature Pulse Rate Respiratory Rate Blood Pressure Pulse Oximetry 98 Intake & Output 05/24/18 05/25/18 05/25/18 18:59 06:59 18:59 Intake Total 4010 / 4010 950 / 950 50 / 50 Output Total 1950 / 1950 1225 / 1225 450 / 450 Balance 2059 / 2059 -275 / -275 -400 / -400 Weight 55.5 kg Intake: IV 2750 / 2750 NS Inj 1,000 ML @ 125 mls/hr IV 1500 / 1500 .CONT .Q8H ANN Rx#:[id number] Avycaz Inj 0.94 GM In NS Inj 50 50 / 50 ML @ 25 mls/hr IV.SIG Q12H ANN Rx#:[id number] NS Inj 1,000 ML @ Wide Open IV. 1000 / 1000 SIG BOLUS ANN Rx#:[id number] Flagyl 500 MG Inj 100 ML @ 100 200 / 200 mls/hr IV.SIG Q8H ANN Rx#: [id number] Oral 50 / 50 50 / 50 Tube Feeding 660 / 660 550 / 550 Water Bolus Amount 550 / 550 400 / 400 Output: Urine 1100 / 1100 625 / 625 450 / 450 Gastric Drainage 850 / 850 600 / 600 Gastrojejunostomy Tube 850 / 850 600 / 600 Other: # Voids 4 1 1 # Incontinent Voids 1 1 Date of Last Bowel Movement 05/24/18 05/25/18 # Bowel Movements 1 1 # Incontinent Bowel Movements 1 Narrative: GENERAL: Elderly, chronically-ill appearing lady, generalized muscle wasting, in NAD SKIN: cool and dry. HEENT: Pupils equal and round. NECK: Trach in place. Mild secretions + CHEST: scattered rhonchi x2 HEART: RRR no M/R/G ABDOMEN: GJ tube in place with minimal erythema. +BS, nontender. EXTREMITIES: No LE edema. R 1st digit of foot with medial erythema and nail edge NEURO: Awake and alert. No gross deficits Results - Labs CBC & Chem 7: 05/25/18 08:38 05/25/18 08:38 Laboratory Results - last 24 hr 05/22/18 05/25/18 05/25/18 17:10 08:38 08:38 WBC 3.5 L RBC 2.35 L Hgb 6.9 L* Hct 20.1 L* MCV 85.9 MCH 29.3 MCHC 34.1 RDW 14.6 Plt Count 127 L MPV 10.0 Prelim Diff (Auto) Manual diff required WBC Differential Manual diff final Seg Neuts % (Manual) 50 Band Neuts % (Manual) 8 H Lymphocytes % (Manual) 24 Monocytes % (Manual) 1 Eosinophils % (Manual) 7 H Basophils % (Manual) 4 H Myelocytes % (Man) 4 H Blast Cells % (Manual) 2 H Abs Neuts (Manual) 2.2 Differential Comment . Platelet Estimate Low L Platelet Morphology Normal Ovalocytes 1+ H Sodium 142 Potassium 4.7 Chloride 108 H Carbon Dioxide 24.2 Anion Gap 10 BUN 46 H Creatinine 1.35 H Estimated GFR 39 L Random Glucose 127 H Lactic Acid Calcium 8.1 L Total Bilirubin 0.3 AST 24 ALT 32 Alkaline Phosphatase 83 Total Protein 5.7 L Albumin 2.0 L Urine Color Yellow Urine Clarity Hazy H Urine pH 5.0 Ur Specific [place] 1.012 Urine Protein Negative Urine Glucose (UA) Negative Urine Ketones Negative Urine Occult Blood Negative Urine Nitrate Negative Urine Bilirubin Negative Urine Urobilinogen Less than 2 Ur Leukocyte Esterase Trace H Urine RBC Less than 1 Urine WBC 10 H Urine Bacteria Rare H Urine Yeast Few H Micro UA Comment Cath-culture ind Urine Culture Comments Cath-cult indicated Blood Type Blood Type Recheck Antibody Screen MTS Gel Crossmatch 05/25/18 05/25/18 05/25/18 08:38 09:55 09:55 WBC RBC Hgb Hct MCV MCH MCHC RDW Plt Count MPV Prelim Diff (Auto) WBC Differential Seg Neuts % (Manual) Band Neuts % (Manual) Lymphocytes % (Manual) Monocytes % (Manual) Eosinophils % (Manual) Basophils % (Manual) Myelocytes % (Man) Blast Cells % (Manual) Abs Neuts (Manual) Differential Comment Platelet Estimate Platelet Morphology Ovalocytes Sodium Potassium Chloride Carbon Dioxide Anion Gap BUN Creatinine Estimated GFR Random Glucose Lactic Acid 1.1 Calcium Total Bilirubin AST ALT Alkaline Phosphatase Total Protein Albumin Urine Color Urine Clarity Urine pH Ur Specific [place] Urine Protein Urine Glucose (UA) Urine Ketones Urine Occult Blood Urine Nitrate Urine Bilirubin Urine Urobilinogen Ur Leukocyte Esterase Urine RBC Urine WBC Urine Bacteria Urine Yeast Micro UA Comment Urine Culture Comments Blood Type Cancelled Blood Type Recheck Cancelled Antibody Screen Cancelled MTS Gel Crossmatch See Detail Microbiology 05/23/18 15:50 Fluid - Pleural fluid Gram Stain - Final 05/23/18 15:50 Fluid - Pleural fluid Body Fluid Culture - Preliminary No growth in 48 hours 05/22/18 17:10 Catheterized Urine Urine Culture - Final Caitlyn tropicalis 05/22/18 18:05 Blood - Peripheral Aerobic Blood Culture - Preliminary No growth in 2 days 05/22/18 18:05 Blood - Peripheral Anaerobic Blood Culture - Preliminary No growth in 2 days 05/22/18 18:00 Blood - Peripheral Aerobic Blood Culture - Preliminary No growth in 2 days 05/22/18 18:00 Blood - Peripheral Anaerobic Blood Culture - Preliminary No growth in 2 days 05/22/18 17:10 Sputum - Endotracheal Gram Stain - Final 05/22/18 17:10 Sputum - Endotracheal Sputum Culture - Preliminary gram negative rods - Imaging Impressions Extremity Arterial Study 05/24/18 00:00 CONCLUSION: 1. Severe reduction of the ABIs bilaterally. Chest X-Ray 05/25/18 09:00 CONCLUSION: Diffuse increased interstitial markings likely related to diffuse processes such as edema. Left base atelectasis or consolidation. Some degree of left effusion can be considered. There is silhouetting of the left hemidiaphragm. Assessment and Plan - Assessment (1) Pneumonia Code(s): J18.9 - Pneumonia, unspecified organism Status: Acute (2) GERD (gastroesophageal reflux disease) Code(s): K21.9 - Gastro-esophageal reflux disease without esophagitis Status: Chronic (3) DVT (deep venous thrombosis) Code(s): I82.409 - Acute embolism and thrombosis of unspecified deep veins of unspecified lower extremity Status: Acute (4) Hypothyroidism Code(s): E03.9 - Hypothyroidism, unspecified Status: Chronic (5) Laryngeal squamous cell carcinoma Code(s): C32.9 - Malignant neoplasm of larynx, unspecified Status: Chronic (6) Protein-calorie malnutrition, severe Code(s): E43 - Unspecified severe protein-calorie malnutrition Status: Chronic - Plan This is a 73-year-old female with 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 The rapid response was called and the patient was transferred to ICU where she was placed on 60% oxygenation via trach collar. [facility] reconsulted 05/23 due to hypotension. Currently managed for recurrent respiratory infections with MDRO managed by ID. CT chest does demonstrate a moderate left pleural effusion with left lower lobe atelectasis s/p thoracocentesis, now managed by HH/HEPAS 1. NEURO: -Depression Continue Lexapro and Wellbutrin -Anxiety Klonopin 0.5 mg per G-tube every 8 hours Temazepam PRN insomnia 2. RESP: -History of squamous cell carcinoma of the larynx now status post tracheostomy due to recurrent aspiration Spiculated right upper lobe pulmonary nodule, multiple R pulmonary nodules Dr. Pineda has discussed risk/ benefits of biopsy with patient and her son on 05/05 and at that time they opted to defer biopsy. Per recent palliative care note there has been discussion of possibly pursuing biopsy. At this point patient is not stable for biopsy. Pulmonology following, Dr. Marcelino -LLL atelectasis and moderate pleural effusion s/p thoracocentisis on 05/23, pending Cx 3. CV: -Hypotension and Tachycardic Secondary to volume depletion, s/p IVF's in ICU on 05/23 Asymptomatic We will give 1 L bolus and then continuous IV fluids at 125 mils per hour 4. GI: -GERD Prevacid 30 mg per G-tube daily -Gastroparesis Chronic moderate protein energy malnutrition G tube to gravity. Continuous tube feeds with Vital 1.5 @ 55 ml/hr via J tube. Azithromycin 250 mg IV daily for gastric motility. Local wound care with bacitracin to G J-tube site. 5. FEN/RENAL: -CKD stage III Vitamin C supplementation Voiding, nephro on board Monitor BMP, Creat 1.34 today from 1.45 6. ID: MDRO PSAE persistent colonisation PNA BLL, MDRO PSAE, Acinetobacter ID following, Dr. Canchola. Maher cultures and repeat C. difficile ordered 05/22, pending results. Bld Cx NG 1 day, UA Neg, Sputum pending On antimicrobial therapy per infectious disease for MDRO (micafungin, avycaz, daptomycin, Flagyl) 7. HEME: DVT right lower extremity on ultrasound 03/27/18 Cont. Lovenox 60 mg Pancytopenia, chronic Hgb 8.1, Plt 113 on 05/21 Cont. to monitor ENDO: 8. Hypothyroidism Continue Synthroid 150 mcg per G-tube daily INTEGUMENTARY 9. R 1st digit of foot with increased erythema s/p trimming of ingrow toenail Will reconsult Podiatry (of note patient on ABX for other infections) 10. DVT PPX: txt with Lovenox. 11. DISPO: Monitor BP and HR, Cont. ABX and Podiatry reccs Code Status: FULL CODE Discussed Condition With: RN AND PT AND RT Discharge Planning: Safe placement (4) Hypothyroidism Qualifiers: Hypothyroidism type: unspecified Qualified Code(s): E03.9 - Hypothyroidism, unspecified
--- NOTE | 2018-05-25 12:00 | P.PNPOD ---
Subjective Interval history: Per nursing, patient and patient's son would like to hold off on any procedures until Saturday as patient and son feel that she has been through a lot over the past few days and this is not a high priority. Physical Exam Vital signs: Vital Signs 05/24/18 12:00 05/24/18 14:00 05/24/18 14:16 Temperature 99.5 F 99.4 F Pulse Rate 86 89 84 Respiratory Rate 18 14 Blood Pressure 122/65 112/52 L Pulse Oximetry 96 96 05/24/18 16:00 05/24/18 16:57 05/24/18 20:00 Temperature 99.3 F 99.8 F H 98.3 F Pulse Rate 93 H 112 H 117 H Respiratory Rate 16 18 24 Blood Pressure 100/52 L 95/48 L 101/57 L Pulse Oximetry 95 98 92 L 05/25/18 00:00 05/25/18 01:30 05/25/18 04:00 Temperature 98.4 F 98.5 F Pulse Rate 122 H 69 74 Respiratory Rate 24 24 20 Blood Pressure 106/55 L 106/53 L 111/52 L Pulse Oximetry 92 L 92 L 95 05/25/18 08:00 05/25/18 09:43 05/25/18 09:52 Temperature 99.9 F H 100.0 F H Pulse Rate 75 100 H Respiratory Rate 22 22 Blood Pressure 100/50 L 98/48 L Pulse Oximetry 95 94 L 94 L 05/25/18 10:44 Temperature Pulse Rate Respiratory Rate Blood Pressure Pulse Oximetry 98 Intake & Output 05/24/18 05/25/18 05/25/18 18:59 06:59 18:59 Intake Total 4010 / 4010 950 / 950 150 / 150 Output Total 1950 / 1950 1225 / 1225 450 / 450 Balance 2059 / 2059 -275 / -275 -300 / -300 Weight 55.5 kg Intake: IV 2750 / 2750 100 / 100 NS Inj 1,000 ML @ 125 mls/hr IV 1500 / 1500 .CONT .Q8H ANN Rx#:[id number] Avycaz Inj 0.94 GM In NS Inj 50 50 / 50 ML @ 25 mls/hr IV.SIG Q12H ANN Rx#:[id number] NS Inj 1,000 ML @ Wide Open IV. 1000 / 1000 SIG BOLUS ANN Rx#:[id number] Flagyl 500 MG Inj 100 ML @ 100 200 / 200 100 / 100 mls/hr IV.SIG Q8H [facility] Rx#: [id number] Oral 50 / 50 50 / 50 Tube Feeding 660 / 660 550 / 550 Water Bolus Amount 550 / 550 400 / 400 Output: Urine 1100 / 1100 625 / 625 450 / 450 Gastric Drainage 850 / 850 600 / 600 Gastrojejunostomy Tube 850 / 850 600 / 600 Other: # Voids 4 1 1 # Incontinent Voids 1 1 Date of Last Bowel Movement 05/24/18 05/25/18 # Bowel Movements 1 1 # Incontinent Bowel Movements 1 Medications and Allergies Active Medications: Active Medications Acetaminophen (Tylenol) 650 mg J-TUBE Q4H PRN PRN Reason: ELEVATED TEMP/HEADACHE Last Admin: 05/08/18 00:17 Dose: 650 mg Acetaminophen (Tylenol) 650 mg G-TUBE Q4H PRN PRN Reason: SEE LABEL COMMENTS Hydrocodone Bitart/Acetaminophen ([place] 5/325) 1 tab J-TUBE Q4H PRN PRN Reason: PAIN 2-5 Last Admin: 05/21/18 10:19 Dose: 1 tab Hydrocodone Bitart/Acetaminophen ([place] 5/325) 2 tab J-TUBE Q4H PRN PRN Reason: PAIN 6-10 Last Admin: 05/23/18 20:13 Dose: 2 tab Al Hydroxide/Mg Hydroxide (Milk Of Magnelle Liulysses) 30 ml J-TUBE Q12H PRN PRN Reason: Mild Constipation Albuterol (Duoneb Neb (Prn)) 1 ampul NEB Q2HR NEB PRN PRN Reason: WHEEZING Last Admin: 05/10/18 17:05 Dose: 1 ampul Ascorbic Acid (Vitamin C) 500 mg J-TUBE BID [facility] Last Admin: 05/25/18 10:28 Dose: Not Given Bisacodyl (Dulcolax Supp) 10 mg RECTAL DAILY PRN PRN Reason: SEVERE CONSITIPATION Bupropion HCl (Wellbutrin) 150 mg J-TUBE BID [facility] Last Admin: 05/25/18 10:28 Dose: Not Given Cetirizine HCl (Zyrtec) 10 mg J-TUBE HS [facility] Last Admin: 05/24/18 21:01 Dose: 10 mg Clonazepam (Klonopin) 0.5 mg G-TUBE Q8HR PRN PRN Reason: ANXIETY Last Admin: 10/06/18 17:22 Dose: 0.5 mg Diphenhydramine HCl (Benadryl) 25 mg J-TUBE Q4H PRN PRN Reason: ITCHING Last Admin: 05/09/18 09:07 Dose: 25 mg Diphenhydramine HCl (Benadryl) 25 mg G-TUBE Q4H PRN PRN Reason: SEE LABEL COMMENTS Enoxaparin Sodium (Lovenox Inj) 60 mg SQ Q24H ANN Last Admin: 05/23/18 08:49 Dose: Not Given Escitalopram Oxalate (Lexapro) 20 mg J-TUBE DAILY ANN Last Admin: 05/25/18 10:28 Dose: Not Given Glycopyrrolate (Robinul Inj) 0.4 mg IV.PUSH Q8H PRN PRN Reason: THICK SECRETIONS Last Admin: 05/25/18 10:32 Dose: 0.4 mg Hyoscyamine (Levsin Liq) 0.125 mg SL Q6H ANN Last Admin: 05/25/18 10:30 Dose: 0.125 mg Ceftazidime/Avibactam 0.94 gm/ (Sodium Chloride) 50 mls @ 25 mls/hr IV.SIG Q12H ANN Last Admin: 05/25/18 06:01 Dose: Not Given Metronidazole/Sodium Chloride (Flagyl 500 Mg Inj) 100 mls @ 100 mls/hr IV.SIG Q8H ANN Last Infusion: 05/25/18 11:00 Dose: Infused Micafungin Sodium 150 mg/ (Sodium Chloride) 100 mls @ 100 mls/hr IV.SIG Q24H ANN Last Admin: 05/24/18 20:55 Dose: Not Given Sodium Chloride (Ns Inj) 1,000 mls @ 125 mls/hr IV.CONT .Q8H ANN Last Admin: 05/25/18 09:30 Dose: 125 mls/hr Azithromycin 250 mg/ Sodium (Chloride) 250 mls @ 250 mls/hr IV.SIG Q24H ANN Last Admin: 05/24/18 16:13 Dose: Not Given Daptomycin 500 mg/ Sodium (Chloride) 100 mls @ 200 mls/hr IV.SIG Q24H ANN Last Admin: 05/24/18 20:55 Dose: Not Given Sodium Chloride (Ns Inj) 250 mls @ 15 mls/hr IV.SIG ONCE [facility] Stop: 05/26/18 02:39 Lactobacillus Acidophilus (Lactinex) 1 tab J-TUBE TID [facility] Last Admin: 05/25/18 10:27 Dose: Not Given Lansoprazole (Prevacid Solutab) 30 mg J-TUBE DAILY [facility] Last Admin: 05/25/18 09:00 Dose: 30 mg Levothyroxine Sodium (Synthroid) 150 mcg J-TUBE DAILY@0600 [facility] Last Admin: 05/25/18 06:01 Dose: 150 mcg Lidocaine HCl (Xylocaine 2% Viscous) 2.5 ml OROPHARYNG Q6H PRN PRN Reason: SEE LABEL COMMENTS Last Admin: 05/02/18 21:05 Dose: 2.5 ml Loperamide HCl (Imodium Liq) 2 mg J-TUBE PRN PRN PRN Reason: diarrhea Last Admin: 05/22/18 09:53 Dose: 2 mg Miscellaneous (Pill Splitter) 1 each OTHER UNSCH PRN PRN Reason: SEE LABEL COMMENTS Morphine Sulfate (Roxanol Liq) 5 mg SL Q4H PRN PRN Reason: BREAKTHROUGH pain 2-10 Last Admin: 05/24/18 21:21 Dose: 5 mg Multivitamins (Theragran) 1 tab J-TUBE DAILY [facility] Last Admin: 05/25/18 10:28 Dose: Not Given Neomycin/Polymyxin/Bacitracin (Neosporin Oint) 0 applicatio TOPICAL DAILY [facility] Last Admin: 05/25/18 09:00 Dose: 15 applicatio Ondansetron HCl (Zofran Odt) 4 mg PO Q6H PRN PRN Reason: NAUSEA OR VOMITING Sennosides (Senokot) 17.2 mg J-TUBE Q12H PRN PRN Reason: Moderate Constipation Simethicone (Phazyme Chew) 125 mg J-TUBE Q4H PRN PRN Reason: RELATING TO BLOATING Last Admin: 05/24/18 10:21 Dose: 125 mg Sodium Chloride (Ns Flush) 2 ml IV.FLUSH BID [facility] Last Admin: 05/25/18 09:00 Dose: 2 ml Sodium Chloride (Ns Flush) 2 ml IV.FLUSH PRN PRN PRN Reason: FLUSH AFTER USING IV ACCESS Sterile Water (Free Water) 0 ml J-TUBE Q6HR [facility] Last Admin: 05/25/18 06:01 Dose: 200 ml Temazepam (Restoril) 15 mg J-TUBE HS PRN PRN Reason: INSOMNIA Last Admin: 05/16/18 20:17 Dose: 15 mg Zinc Oxide (Zinc Oxide 20% Oint) 1 applicatio TOPICAL BID [facility] Last Admin: 05/25/18 09:00 Dose: 1 applicatio Zinc Sulfate (Zinc-220) 220 mg J-TUBE DAILY [facility] Last Admin: 05/25/18 10:29 Dose: Not Given Allergies Allergy/AdvReac Type Severity Reaction Status Date / Time epinephrine Allergy Severe TACHYCARDIA Verified 02/21/18 08:40 penicillin G Allergy Severe Hives Verified 02/21/18 08:40 peanut Allergy Intermediate ANAPHYLAXIS Verified 02/21/18 08:40 legumes Allergy Unknown Anaphylaxis Verified 03/06/18 21:48 soy Allergy Rash Verified 03/06/18 21:45 Home Medications Medication Instructions Recorded Confirmed Type cetirizine 10 mg PO HS 02/15/18 05/13/18 History escitalopram oxalate 20 mg FEEDING TUBE DAILY 02/15/18 05/13/18 History levothyroxine 100 mcg FEEDING TUBE DAILY 02/15/18 05/13/18 History ascorbic acid (vitamin C) 500 mg FEEDING TUBE BID 03/06/18 05/13/18 History multivitamin [Daily Multi-Vitamin] 1 tab FEEDING TUBE DAILY 03/06/18 05/13/18 History Results - Labs CBC & Chem 7: 05/25/18 08:38 05/25/18 08:38 Laboratory Results - last 24 hr 05/25/18 05/25/18 05/25/18 08:38 08:38 08:38 WBC 3.5 L RBC 2.35 L Hgb 6.9 L* Hct 20.1 L* MCV 85.9 MCH 29.3 MCHC 34.1 RDW 14.6 Plt Count 127 L MPV 10.0 Prelim Diff (Auto) Manual diff required WBC Differential Manual diff final Seg Neuts % (Manual) 50 Band Neuts % (Manual) 8 H Lymphocytes % (Manual) 24 Monocytes % (Manual) 1 Eosinophils % (Manual) 7 H Basophils % (Manual) 4 H Myelocytes % (Man) 4 H Blast Cells % (Manual) 2 H Abs Neuts (Manual) 2.2 Differential Comment . Platelet Estimate Low L Platelet Morphology Normal Ovalocytes 1+ H Sodium 142 Potassium 4.7 Chloride 108 H Carbon Dioxide 24.2 Anion Gap 10 BUN 46 H Creatinine 1.35 H Estimated GFR 39 L Random Glucose 127 H Lactic Acid 1.1 Calcium 8.1 L Total Bilirubin 0.3 AST 24 ALT 32 Alkaline Phosphatase 83 Total Protein 5.7 L Albumin 2.0 L Blood Type Blood Type Recheck Antibody Screen Antibody Identification MTS Gel Crossmatch 05/25/18 05/25/18 05/25/18 09:55 09:55 11:45 WBC RBC Hgb Hct MCV MCH MCHC RDW Plt Count MPV Prelim Diff (Auto) WBC Differential Seg Neuts % (Manual) Band Neuts % (Manual) Lymphocytes % (Manual) Monocytes % (Manual) Eosinophils % (Manual) Basophils % (Manual) Myelocytes % (Man) Blast Cells % (Manual) Abs Neuts (Manual) Differential Comment Platelet Estimate Platelet Morphology Ovalocytes Sodium Potassium Chloride Carbon Dioxide Anion Gap BUN Creatinine Estimated GFR Random Glucose Lactic Acid Calcium Total Bilirubin AST ALT Alkaline Phosphatase Total Protein Albumin Blood Type B Positive Cancelled Blood Type Recheck Cancelled Antibody Screen Positive H Cancelled Antibody Identification Anti-E MTS Gel Crossmatch See Detail Microbiology 05/22/18 17:10 Sputum - Endotracheal Gram Stain - Final 05/22/18 17:10 Sputum - Endotracheal Sputum Culture - Preliminary Multidrug Resistant Pseudomonas aeruginosa gram negative rods 05/22/18 18:05 Blood - Peripheral Aerobic Blood Culture - Preliminary No growth in 3 days 05/22/18 18:05 Blood - Peripheral Anaerobic Blood Culture - Preliminary No growth in 3 days 05/22/18 18:00 Blood - Peripheral Aerobic Blood Culture - Preliminary No growth in 3 days 05/22/18 18:00 Blood - Peripheral Anaerobic Blood Culture - Preliminary No growth in 3 days 05/23/18 15:50 Fluid - Pleural fluid Gram Stain - Final 05/23/18 15:50 Fluid - Pleural fluid Body Fluid Culture - Preliminary No growth in 48 hours 05/22/18 17:10 Catheterized Urine Urine Culture - Final Caitlyn tropicalis - Imaging Impressions Extremity Arterial Study 05/24/18 00:00 CONCLUSION: 1. Severe reduction of the ABIs bilaterally. Chest X-Ray 05/25/18 09:00 CONCLUSION: Diffuse increased interstitial markings likely related to diffuse processes such as edema. Left base atelectasis or consolidation. Some degree of left effusion can be considered. There is silhouetting of the left hemidiaphragm. Assessment and Plan - Assessment (1) Ingrown nail of great toe of right foot Code(s): L60.0 - Ingrowing nail Status: Acute - Plan 73-year-old female with right hallux medial border paronychia Recommend Betadine and triple antibiotic with Band-Aid Will evaluate tomorrow and if there is no improvement we will move forward with more aggressive partial nail avulsion versus total nail avulsion Please have materials bedside Consent to be obtained for right hallux nail avulsion
[2018-05-25] MEDS: Morphine Sulfate Oral Liq 10 MG/0.5 ML Syringe SL PRN ×2 (13:45→23:02)
[2018-05-25] MEDS: Azithromycin Inj 250 MG in Sodium Chlor 0.9% Inj 250 ML IV.SIG SCH (15:00)
[2018-05-25 15:53] LABS: Amorphous Sediment,Urine Rare /hpf; Bacteria,Urine Moderate /hpf; Bilirubin,Urine Negative (Negative); Clarity,Urine Cloudy (Clear); Color,Urine Yellow (Yellw/Straw); Glucose,Urine (UA) Negative (Negative); Leukocyte Esterase,Urine Large (Negative); Mucus,Urine Few /lpf (Occasional); Nitrite,Urine Negative (Negative); Specific Gravity,Urine 1.013 (1.002-1.035); Transitional Epi Cells,Urine 3 /hpf
[2018-05-25] MEDS: Micafungin Inj 150 MG in Sodium Chlor 0.9% Inj 100 ML IV.SIG SCH (21:19)
[2018-05-25] MEDS: DAPTOmycin Inj 500 MG in Sodium Chlor 0.9% Inj 100 ML IV.SIG SCH (21:20)
[2018-05-26] MEDS: Sod Chloride 0.9% Inj 1,000 ML IV.CONT SCH ×3 (00:32→17:06)
[2018-05-26] MEDS: clonazePAM 0.5 MG Tablet G-TUBE PRN (01:41)
[2018-05-26] MEDS: Hyoscyamine Liq Drops 0.125 MG/ML 15 ML Bottle SL SCH ×4 (03:35→23:26)
[2018-05-26] MEDS: Morphine Sulfate Oral Liq 10 MG/0.5 ML Syringe SL PRN (03:36)
[2018-05-26] MEDS: Levothyroxine 150 MCG Tablet J-TUBE SCH (06:20)
[2018-05-26] MEDS: Ceftazidime/Avibactam Inj 0.94 GM in Sodium Chlor 0.9% Inj 50 ML IV.SIG SCH ×2 (06:20→18:38)
--- NOTE | 2018-05-26 07:00 | XR ---
EXAM DATE: 05/26/2018 12:00 AM EDT AGE/SEX: 73 years / Female INDICATIONS: Gastric tube placement. CLINICAL DATA: This is the patient's subsequent encounter. Patient reports that signs and symptoms h ave been present for 1 week and indicates a pain score of 0/10. MEDICAL/SURGICAL HISTORY: Carcinoma, cervical. Carcinoma, rectal. Gastroesophageal reflux dis ease. Cholecystectomy. Appendectomy. Hysterectomy. [place] [facility] [place]/O CONTRAST, 05/22/2018. . FINDINGS: Single frontal view of the abdomen demonstrates G-tube balloon overlying the expected location of th e stomach. Jejunal feeding tube distal tip is in the left upper quadrant. There is oral contrast mate rial within the small bowel and contrast material is present within the distal sigmoid colon and rect um. There are no findings to indicate bowel obstruction. Severe vascular calcification is present. De generative changes are present throughout the lumbar spine. There is stable pleural-parenchymal opaci ty at the left lung base. CONCLUSION: 1. GJ tube appears to be in appropriate position with distal end of the jejunal feeding tube in the left upper quadrant. 2. Persistent pleural-parenchymal opacity at the left lung base. Electronically signed by: Gee Garcia MD 05/26/2018 6:59 AM EDT
[2018-05-26] MEDS: buPROPion 75 MG Tablet J-TUBE SCH ×2 (08:29→20:39)
[2018-05-26] MEDS: Lactobacillus Acidophilus/L. Spores Tablet J-TUBE SCH ×3 (08:31→18:39)
[2018-05-26] MEDS: Ascorbic Acid 500 MG Tablet J-TUBE SCH ×2 (08:31→20:39)
[2018-05-26] MEDS: Sodium Chloride 0.9% 2 ML Flush BID IV.FLUSH SCH ×2 (08:36→20:40)
--- NOTE | 2018-05-26 09:51 | P.PNIM ---
Subjective Interval history: Nursing reports that the G-J tube was dislodged over the weekend yesterday night , RN apparently inserted it but the nurse today says it is not flushing. Heart rate has been very tachycardic, not to the 150s. Patient has not been complaining of any new source of pain., No obvious source of bleeding has been found. Is status post 3 units of packed red blood cells transfusion since yesterday given that her hemoglobin yesterday morning was 6.9. Pt denies having any chest pain or SOB or chest pressure. Physical Exam Vital signs: Vital Signs 05/25/18 09:52 05/25/18 10:44 05/25/18 12:00 Temperature 99.8 F H Pulse Rate 133 H Respiratory Rate 18 Blood Pressure 90/48 L Pulse Oximetry 94 L 98 96 05/25/18 12:33 05/25/18 12:42 05/25/18 12:49 Temperature 99.6 F 99.6 F 99.5 F Pulse Rate 98 H 77 75 Respiratory Rate 18 18 20 Blood Pressure 99/48 L 97/46 L 107/51 L Pulse Oximetry 97 97 05/25/18 14:20 05/25/18 15:10 05/25/18 15:50 Temperature 99.9 F H 99.0 F Pulse Rate 130 H 131 H Respiratory Rate 20 18 14 Blood Pressure 100/50 L 98/50 L Pulse Oximetry 96 95 05/25/18 15:53 05/25/18 16:00 05/25/18 16:03 Temperature 99.0 F 99.1 F 99.0 F Pulse Rate 120 H 88 90 Respiratory Rate 14 16 18 Blood Pressure 89/53 L 115/54 L 92/55 L Pulse Oximetry 96 96 96 05/25/18 16:10 05/25/18 17:00 05/25/18 18:24 Temperature 99.1 F 99.2 F 99.9 F H Pulse Rate 88 78 80 Respiratory Rate 16 18 16 Blood Pressure 115/54 L 100/55 L 115/52 L Pulse Oximetry 97 96 97 05/25/18 18:47 05/25/18 19:03 05/25/18 20:00 Temperature 99.8 F H 99.1 F 98.8 F Pulse Rate 74 80 90 Respiratory Rate 18 18 18 Blood Pressure 127/50 L 118/52 L 136/59 L Pulse Oximetry 96 97 96 10/07/18 22:20 05/26/18 00:00 05/26/18 04:00 Temperature 100.4 F H 98.8 F 98.4 F Pulse Rate 92 H 98 H 87 Respiratory Rate 20 18 20 Blood Pressure 132/61 127/62 108/59 L Pulse Oximetry 98 94 L 95 05/26/18 07:53 05/26/18 07:55 Temperature 98.6 F Pulse Rate 87 133 H Respiratory Rate 20 20 Blood Pressure 106/61 Pulse Oximetry 95 Intake & Output 05/25/18 05/26/18 05/26/18 18:59 06:59 18:59 Intake Total 1860 / 1860 1550 / 1550 Output Total 2950 / 2950 1025 / 1025 Balance -1090 / -1090 525 / 525 Weight 59.8 kg Intake: IV 550 / 550 600 / 600 NS Inj 1,000 ML @ 125 mls/hr IV 350 / 350 350 / 350 .CONT .Q8H ANN Rx#:[id number] Avycaz Inj 0.94 GM In NS Inj 50 50 / 50 ML @ 25 mls/hr IV.SIG Q12H ANN Rx#:[id number] Mycamine Inj 150 MG In NS Inj 100 / 100 100 ML @ 100 mls/hr IV.SIG Q24H ANN Rx#:[id number] Flagyl 500 MG Inj 100 ML @ 100 200 / 200 100 / 100 mls/hr IV.SIG Q8H ANN Rx#: [id number] Oral 150 / 150 Tube Feeding 660 / 660 350 / 350 Water Bolus Amount 500 / 500 200 / 200 Intake (Blood Product) Amt 0 / 0 400 / 400 Rbc As-3 Leukoreduced Unit 0 / 0 [id number] Rbc As-3 Leukoreduced Unit 0 / 0 400 / 400 [id number] Rbc As-3 Leukoreduced Unit 0 / 0 [id number] Output: Urine 850 / 850 Urine Amount (Catheter) 1300 / 1300 1025 / 1025 Indwelling Urethral Catheter 1300 / 1300 1025 / 1025 Gastric Drainage 800 / 800 Gastrojejunostomy Tube 800 / 800 Other: # Voids 4 # Incontinent Voids 1 Date of Last Bowel Movement 05/25/18 05/25/18 # Bowel Movements 1 # Incontinent Bowel Movements 1 Narrative: Sinus tachycardia, no audible murmurs at this time Clear lungs bilaterally while on tracheostomy Abdomen with GJ tube in site, G-tube is draining to gravity, J-tube shows full resistance as the nurse tries to flush it in front of me, there is no leakage noted around the insertion site Patient overall appears pale - Urinary Catheter Management Indwelling Urethral Catheter Cath placed during this visit: yes Reason for continuing: Acute urinary retention Insertion date: 05/25/18 Insertion time: 14:00 Results - Labs CBC & Chem 7: 05/26/18 10:05 05/26/18 10:05 Laboratory Results - last 24 hr 05/08/18 05/25/18 05/25/18 10:50 08:38 08:38 WBC Differential Manual diff final Seg Neuts % (Manual) 50 Band Neuts % (Manual) 8 H Lymphocytes % (Manual) 24 Monocytes % (Manual) 1 Eosinophils % (Manual) 7 H Basophils % (Manual) 4 H Myelocytes % (Man) 4 H Blast Cells % (Manual) 2 H Abs Neuts (Manual) 2.2 Platelet Estimate Low L Platelet Morphology Normal Ovalocytes 1+ H Sodium 142 Potassium 4.7 Chloride 108 H Carbon Dioxide 24.2 Anion Gap 10 BUN 46 H Creatinine 1.35 H Estimated GFR 39 L Random Glucose 127 H Calcium 8.1 L AST 24 Albumin 2.0 L Urine Color Urine Clarity Urine pH Ur Specific [place] Urine Protein Urine Glucose (UA) Urine Ketones Urine Occult Blood Urine Nitrate Urine Bilirubin Urine Urobilinogen Ur Leukocyte Esterase Urine RBC Urine WBC Urine WBC Clumps Ur Transition Epith Cell Amorphous Sediment Urine Bacteria Urine Mucus Micro UA Comment Ur Microscopic Review Urine Culture Comments Stl C.difficile DNA Amp St C. diff Tox Epid 027 Blood Type Blood Type Recheck Antibody Screen Antibody Identification Direct Antiglob Test MTS Gel Crossmatch See Detail 05/25/18 05/25/18 05/25/18 09:00 09:55 09:55 WBC Differential Seg Neuts % (Manual) Band Neuts % (Manual) Lymphocytes % (Manual) Monocytes % (Manual) Eosinophils % (Manual) Basophils % (Manual) Myelocytes % (Man) Blast Cells % (Manual) Abs Neuts (Manual) Platelet Estimate Platelet Morphology Ovalocytes Sodium Potassium Chloride Carbon Dioxide Anion Gap BUN Creatinine Estimated GFR Random Glucose Calcium AST Albumin Urine Color Urine Clarity Urine pH Ur Specific [place] Urine Protein Urine Glucose (UA) Urine Ketones Urine Occult Blood Urine Nitrate Urine Bilirubin Urine Urobilinogen Ur Leukocyte Esterase Urine RBC Urine WBC Urine WBC Clumps Ur Transition Epith Cell Amorphous Sediment Urine Bacteria Urine Mucus Micro UA Comment Ur Microscopic Review Urine Culture Comments Stl C.difficile DNA Amp Negative St C. diff Tox Epid 027 Negative Blood Type B Positive Cancelled Blood Type Recheck Cancelled Antibody Screen Positive H Cancelled Antibody Identification Direct Antiglob Test Negative MTS Gel Crossmatch See Detail 05/25/18 05/25/18 11:45 13:20 WBC Differential Seg Neuts % (Manual) Band Neuts % (Manual) Lymphocytes % (Manual) Monocytes % (Manual) Eosinophils % (Manual) Basophils % (Manual) Myelocytes % (Man) Blast Cells % (Manual) Abs Neuts (Manual) Platelet Estimate Platelet Morphology Ovalocytes Sodium Potassium Chloride Carbon Dioxide Anion Gap BUN Creatinine Estimated GFR Random Glucose Calcium AST Albumin Urine Color Yellow Urine Clarity Cloudy H Urine pH 5.0 Ur Specific [place] 1.013 Urine Protein 100 H Urine Glucose (UA) Negative Urine Ketones Negative Urine Occult Blood Small H Urine Nitrate Negative Urine Bilirubin Negative Urine Urobilinogen Less than 2 Ur Leukocyte Esterase Large H Urine RBC 30 H Urine WBC Urine WBC Clumps Occasional H Ur Transition Epith Cell 3 Amorphous Sediment Rare H Urine Bacteria Moderate H Urine Mucus Few H Micro UA Comment Cath-culture ind Ur Microscopic Review Not Reportable Urine Culture Comments Cath-cult indicated Stl C.difficile DNA Amp St C. diff Tox Epid 027 Blood Type Blood Type Recheck Antibody Screen Antibody Identification Anti-E Direct Antiglob Test MTS Gel Crossmatch Microbiology 05/22/18 17:10 Sputum - Endotracheal Gram Stain - Final 05/22/18 17:10 Sputum - Endotracheal Sputum Culture - Preliminary Multidrug Resistant Pseudomonas aeruginosa gram negative rods 05/22/18 18:05 Blood - Peripheral Aerobic Blood Culture - Preliminary No growth in 3 days 05/22/18 18:05 Blood - Peripheral Anaerobic Blood Culture - Preliminary No growth in 3 days 05/22/18 18:00 Blood - Peripheral Aerobic Blood Culture - Preliminary No growth in 3 days 05/22/18 18:00 Blood - Peripheral Anaerobic Blood Culture - Preliminary No growth in 3 days 05/23/18 15:50 Fluid - Pleural fluid Gram Stain - Final 05/23/18 15:50 Fluid - Pleural fluid Body Fluid Culture - Preliminary No growth in 48 hours - Imaging Impressions Abdomen X-Ray 05/26/18 00:00 CONCLUSION: 1. GJ tube appears to be in appropriate position with distal end of the jejunal feeding tube in the left upper quadrant. 2. Persistent pleural-parenchymal opacity at the left lung base. Assessment and Plan - Assessment (1) Pneumonia Code(s): J18.9 - Pneumonia, unspecified organism Status: Acute (2) GERD (gastroesophageal reflux disease) Code(s): K21.9 - Gastro-esophageal reflux disease without esophagitis Status: Chronic (3) DVT (deep venous thrombosis) Code(s): I82.409 - Acute embolism and thrombosis of unspecified deep veins of unspecified lower extremity Status: Acute (4) Hypothyroidism Code(s): E03.9 - Hypothyroidism, unspecified Status: Chronic (5) Laryngeal squamous cell carcinoma Code(s): C32.9 - Malignant neoplasm of larynx, unspecified Status: Chronic (6) Protein-calorie malnutrition, severe Code(s): E43 - Unspecified severe protein-calorie malnutrition Status: Chronic - Plan This is a 73-year-old female with 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 The rapid response was called and the patient was transferred to ICU where she was placed on 60% oxygenation via trach collar. [facility] reconsulted 05/23 due to hypotension. Currently managed for recurrent respiratory infections with MDRO managed by ID. CT chest does demonstrate a moderate left pleural effusion with left lower lobe atelectasis s/p thoracocentesis, now managed by [facility]. -Hypotension- resolved. Tachycardic -secondary to volume depletion and possible blood loss, now status post transfusion of 3 units of blood (yesterday pretransfusion hemoglobin was 6.9), showing sustained sinus tachycardia, repeating stat EKG, independent telemetry strips upon my review show sinus tachycardia -will order stat CBC, ordering lactic acid -has DVT in LE, need to restart Lovenox once h/h shows steady level; concern for possible PE, last dose of Lovenox is actually charted as being given on 05/22 which was 4 days ago, CTA ordered -Continue IV fluids -Awaiting phosphorous and mg from this AM - blood cultures pending GJ tube dysfunction Dislodged over the weekend and reinserted, now not flushing, was most recently replaced by IR 2 months ago, reconsulting IR for evaluation and adjustment as necessary MDRO PSAE persistent colonisation PNA BLL, MDRO PSAE, Acinetobacter ID following, Dr. Canchola. Maher cultures and repeat C. difficile ordered 05/22, pending results. Bld Cx NG 2 day, UA Neg, Sputum pending On antimicrobial therapy per infectious disease for MDRO (micafungin, avycaz, daptomycin, Flagyl) -GERD Prevacid 30 mg per G-tube daily -Gastroparesis Chronic moderate protein energy malnutrition G tube to gravity. Continuous tube feeds with Vital 1.5 @ 55 ml/hr via J tube. Azithromycin 250 mg IV daily for gastric motility. Local wound care with bacitracin to G J-tube site. RESP: -History of squamous cell carcinoma of the larynx now status post tracheostomy due to recurrent aspiration Spiculated right upper lobe pulmonary nodule, multiple R pulmonary nodules Dr. Pineda has discussed risk/ benefits of biopsy with patient and her son on 05/05 and at that time they opted to defer biopsy. Per recent palliative care note there has been discussion of possibly pursuing biopsy. At this point patient is not stable for biopsy. Pulmonology following, Dr. Marcelino -JURGENL atelectasis and moderate pleural effusion s/p thoracocentisis on 05/23, pending Cx HEME: DVT right lower extremity on ultrasound 03/27/18 Lovenox 60 mg BID on hold until anemia source found Pancytopenia, chronic Hgb 8.1, Plt 113 on 05/21 Cont. to monitor Hypothyroidism Continue Synthroid 150 mcg per G-tube daily INTEGUMENTARY R 1st digit of foot with increased erythema s/p trimming of ingrow toenail Podiatry (of note patient on ABX for other infections) following DVT PPX: txt with Lovenox once hb is stable NEURO: -Depression Continue Lexapro and Wellbutrin -Anxiety Klonopin 0.5 mg per G-tube every 8 hours Temazepam PRN insomnia CKD stage III Vitamin C supplementation Voiding, nephro on board DISPO: Monitor BP and HR, Cont. ABX and Podiatry reccs Code Status: FULL CODE Discussed Condition With: RN Addendum: GJ-tube now has been unclogged per nursing. Thus IR consult was canceled. Heart rate now stabilized without further antiarrhythmics initiated. CTA is negative for pulmonary embolism, shows left-sided pleural effusion. H& H is stable, no elevated white count, lactic acid within normal limits. Resume Lovenox. (4) Hypothyroidism Qualifiers: Hypothyroidism type: unspecified Qualified Code(s): E03.9 - Hypothyroidism, unspecified
[2018-05-26 10:20] LABS: Baso % (Auto) 0.7 % (0.0-2.0); Eos # (Auto) 0.1 th/mm3 (0.0-0.4); Eos % (Auto) 2.2 % (0.0-4.0); Hematocrit 32.7 % (35.0-46.0); Hemoglobin 11.6 gm/dL (11.6-15.3); Lymph # (Auto) 0.9 th/mm3 (1.0-4.8); Lymph % (Auto) 20.6 % (9.0-44.0); Mean Corpuscular HGB Conc 35.3 % (32.0-36.0); Mean Corpuscular Hemoglobin 30.1 pg (27.0-34.0); Mean Corpuscular Volume 85.4 fL (80.0-100.0); Mean Platelet Volume 9.6 fL (7.0-11.0); Mono # (Auto) 0.3 th/mm3 (0.0-0.9); Neut # (Auto) 2.9 th/mm3 (1.8-7.7); Neut % (Auto) 69.5 % (16.0-70.0); Platelet Count 113 th/mm3 (150-450); Red Blood Count 3.84 mil/mm3 (4.00-5.30); Red Cell Distribution Width 14.8 % (11.6-17.2); White Blood Count 4.2 th/mm3 (4.0-11.0)
--- NOTE | 2018-05-26 10:27 | P.PNGI ---
Subjective Interval history: GJ tube fell out and reintroduced but now clogged and non functional VSS Physical Exam Vital signs: Vital Signs 05/25/18 10:44 05/25/18 12:00 05/25/18 12:33 Temperature 99.8 F H 99.6 F Pulse Rate 133 H 98 H Respiratory Rate 18 18 Blood Pressure 90/48 L 99/48 L Pulse Oximetry 98 96 97 05/25/18 12:42 05/25/18 12:49 05/25/18 14:20 Temperature 99.6 F 99.5 F Pulse Rate 77 75 Respiratory Rate 18 20 20 Blood Pressure 97/46 L 107/51 L Pulse Oximetry 97 05/25/18 15:10 05/25/18 15:50 05/25/18 15:53 Temperature 99.9 F H 99.0 F 99.0 F Pulse Rate 130 H 131 H 120 H Respiratory Rate 18 14 14 Blood Pressure 100/50 L 98/50 L 89/53 L Pulse Oximetry 96 95 96 05/25/18 16:00 05/25/18 16:03 05/25/18 16:10 Temperature 99.1 F 99.0 F 99.1 F Pulse Rate 88 90 88 Respiratory Rate 16 18 16 Blood Pressure 115/54 L 92/55 L 115/54 L Pulse Oximetry 96 96 97 05/25/18 17:00 05/25/18 18:24 05/25/18 18:47 Temperature 99.2 F 99.9 F H 99.8 F H Pulse Rate 78 80 74 Respiratory Rate 18 16 18 Blood Pressure 100/55 L 115/52 L 127/50 L Pulse Oximetry 96 97 96 05/25/18 19:03 05/25/18 20:00 05/25/18 22:20 Temperature 99.1 F 98.8 F 100.4 F H Pulse Rate 80 90 92 H Respiratory Rate 18 18 20 Blood Pressure 118/52 L 136/59 L 132/61 Pulse Oximetry 97 96 98 05/26/18 00:00 05/26/18 04:00 05/26/18 07:53 Temperature 98.8 F 98.4 F Pulse Rate 98 H 87 87 Respiratory Rate 18 20 20 Blood Pressure 127/62 108/59 L Pulse Oximetry 94 L 95 05/26/18 07:55 Temperature 98.6 F Pulse Rate 133 H Respiratory Rate 20 Blood Pressure 106/61 Pulse Oximetry 95 Intake & Output 05/25/18 05/26/18 05/26/18 18:59 06:59 18:59 Intake Total 1860 / 1860 1550 / 1550 Output Total 2950 / 2950 1025 / 1025 Balance -1090 / -1090 525 / 525 Weight 59.8 kg Intake: IV 550 / 550 600 / 600 NS Inj 1,000 ML @ 125 mls/hr IV 350 / 350 350 / 350 .CONT .Q8H ANN Rx#:[id number] Avycaz Inj 0.94 GM In NS Inj 50 50 / 50 ML @ 25 mls/hr IV.SIG Q12H ANN Rx#:[id number] Mycamine Inj 150 MG In NS Inj 100 / 100 100 ML @ 100 mls/hr IV.SIG Q24H ANN Rx#:[id number] Flagyl 500 MG Inj 100 ML @ 100 200 / 200 100 / 100 mls/hr IV.SIG Q8H ANN Rx#: [id number] Oral 150 / 150 Tube Feeding 660 / 660 350 / 350 Water Bolus Amount 500 / 500 200 / 200 Intake (Blood Product) Amt 0 / 0 400 / 400 Rbc As-3 Leukoreduced Unit 0 / 0 [id number] Rbc As-3 Leukoreduced Unit 0 / 0 400 / 400 [id number] Rbc As-3 Leukoreduced Unit 0 / 0 [id number] Output: Urine 850 / 850 Urine Amount (Catheter) 1300 / 1300 1025 / 1025 Indwelling Urethral Catheter 1300 / 1300 1025 / 1025 Gastric Drainage 800 / 800 Gastrojejunostomy Tube 800 / 800 Other: # Voids 4 # Incontinent Voids 1 Date of Last Bowel Movement 05/25/18 05/25/18 # Bowel Movements 1 # Incontinent Bowel Movements 1 - Constitutional no acute distress - Routine Cardiovascular Exam Present: S1, S2 - Routine Abdominal Exam Present: distended Comments: no rebound bs positve GJ in place nonfunctional - Urinary Catheter Management Indwelling Urethral Catheter Cath placed during this visit: yes Reason for continuing: Acute urinary retention Insertion date: 05/25/18 Insertion time: 14:00 Results - Labs CBC & Chem 7: 05/26/18 10:05 05/25/18 08:38 Laboratory Results - last 24 hr 05/08/18 05/25/18 05/25/18 10:50 09:00 09:55 WBC RBC Hgb Hct MCV MCH MCHC RDW Plt Count MPV Prelim Diff (Auto) Neut % (Auto) Lymph % (Auto) [place] % (Auto) Eos % (Auto) Baso % (Auto) Neut # (Auto) Lymph # (Auto) [place] # (Auto) Eos # (Auto) Baso # (Auto) Differential Comment Urine Color Urine Clarity Urine pH Ur Specific [place] Urine Protein Urine Glucose (UA) Urine Ketones Urine Occult Blood Urine Nitrate Urine Bilirubin Urine Urobilinogen Ur Leukocyte Esterase Urine RBC Urine WBC Urine WBC Clumps Ur Transition Epith Cell Amorphous Sediment Urine Bacteria Urine Mucus Micro UA Comment Ur Microscopic Review Urine Culture Comments Stl C.difficile DNA Amp Negative St C. diff Tox Epid 027 Negative Blood Type B Positive Antibody Screen Positive H Antibody Identification Direct Antiglob Test Negative MTS Gel Crossmatch See Detail See Detail 05/25/18 05/25/18 05/26/18 11:45 13:20 10:05 WBC 4.2 RBC 3.84 L Hgb 11.6 D Hct 32.7 L MCV 85.4 MCH 30.1 MCHC 35.3 RDW 14.8 Plt Count 113 L MPV 9.6 Prelim Diff (Auto) Slide review pending Neut % (Auto) 69.5 Lymph % (Auto) 20.6 [place] % (Auto) 7.0 Eos % (Auto) 2.2 Baso % (Auto) 0.7 Neut # (Auto) 2.9 Lymph # (Auto) 0.9 L [place] # (Auto) 0.3 Eos # (Auto) 0.1 Baso # (Auto) 0.0 Differential Comment . Urine Color Yellow Urine Clarity Cloudy H Urine pH 5.0 Ur Specific [place] 1.013 Urine Protein 100 H Urine Glucose (UA) Negative Urine Ketones Negative Urine Occult Blood Small H Urine Nitrate Negative Urine Bilirubin Negative Urine Urobilinogen Less than 2 Ur Leukocyte Esterase Large H Urine RBC 30 H Urine WBC Urine WBC Clumps Occasional H Ur Transition Epith Cell 3 Amorphous Sediment Rare H Urine Bacteria Moderate H Urine Mucus Few H Micro UA Comment Cath-culture ind Ur Microscopic Review Not Reportable Urine Culture Comments Cath-cult indicated Stl C.difficile DNA Amp St C. diff Tox Epid 027 Blood Type Antibody Screen Antibody Identification Anti-E Direct Antiglob Test MTS Gel Crossmatch Microbiology 05/22/18 17:10 Sputum - Endotracheal Gram Stain - Final 05/22/18 17:10 Sputum - Endotracheal Sputum Culture - Preliminary Multidrug Resistant Pseudomonas aeruginosa gram negative rods 05/22/18 18:05 Blood - Peripheral Aerobic Blood Culture - Preliminary No growth in 3 days 05/22/18 18:05 Blood - Peripheral Anaerobic Blood Culture - Preliminary No growth in 3 days 05/22/18 18:00 Blood - Peripheral Aerobic Blood Culture - Preliminary No growth in 3 days 05/22/18 18:00 Blood - Peripheral Anaerobic Blood Culture - Preliminary No growth in 3 days 05/23/18 15:50 Fluid - Pleural fluid Gram Stain - Final 05/23/18 15:50 Fluid - Pleural fluid Body Fluid Culture - Preliminary No growth in 48 hours - Imaging Impressions Abdomen X-Ray 05/26/18 00:00 CONCLUSION: 1. GJ tube appears to be in appropriate position with distal end of the jejunal feeding tube in the left upper quadrant. 2. Persistent pleural-parenchymal opacity at the left lung base. Assessment and Plan (1) Gastroparesis Status: Acute Code(s): K31.84 - Gastroparesis - Attending Attestation Agree with GJ tube replacement by IR today will follow up continue rx
[2018-05-26 10:32] LABS: Alanine Aminotransferase 27 U/L (10-53); Anion Gap 9 meq/L (5-15); Aspartate Aminotransferase 22 U/L (15-37); Blood Urea Nitrogen 43 mg/dL (7-18); Carbon Dioxide 26.9 meq/L (21.0-32.0); Chloride 107 meq/L (98-107); Glomerular Filtration Rate 39 mL/min (>89); Glucose,Random 97 mg/dL (74-106); Magnesium 1.5 mg/dL (1.5-2.5); Potassium 4.6 meq/L (3.5-5.1); Sodium 143 meq/L (136-145)
[2018-05-26 10:35] LABS: Alkaline Phosphatase 95 U/L (45-117); Phosphorus 3.1 mg/dL (2.5-4.9); Total Protein 5.8 g/dL (6.4-8.2)
[2018-05-26] MEDS ORDERED: Sod Chloride 0.9% Inj 1,000 ML IV.SIG SCH (11:00)
[2018-05-26 11:24] LABS: Blast Cells 1 % (0-0); Eosinophils 1 % (0-4); Lymphocytes 21 % (9-44); Metamyelocytes 1 % (0-1); Monocytes 3 % (0-8)
[2018-05-26 11:25] LABS: Platelet Morphology Normal (Normal)
--- NOTE | 2018-05-26 14:36 | CT ---
EXAM DATE: 05/26/2018 1:12 PM EDT AGE/SEX: 73 years / Female INDICATIONS: Shortness of breath. CLINICAL DATA: This is the patient's initial encounter. Patient reports that signs and symptoms have been present for 1 day and indicates a pain score of Nonresponsive. MEDICAL/SURGICAL HISTORY: Gastroesophageal reflux disease. Hypothyroidism. Carcinoma, squamous ce ll. . hernia repair. RADIATION DOSE: 17.44 CTDI (mGy) COMPARISON: [facility] [place], CT CHEST W/O CONTRAST, 05/22/2018. . TECHNIQUE: Volumetric scanning was performed using a multi-row detector CT scanner during bolus infu martin of 50 ml Visipaque 320 (iodixanol) nonionic water-soluble contrast as a single exam dose. The d all was post processed with a variety of visualization algorithms including full volume maximum inten sity projection and sliding thin slab reformation. Using automated exposure control and adjustment of the mA and/or kV according to patient size, radiation dose was kept as low as reasonably achievable to obtain optimal diagnostic quality images. DICOM format image data is available electronically for review and comparison. FINDINGS: Pulmonary Arteries: No filling defects are seen in the pulmonary arteries out to the subsegmental ve ssels. The left and right pulmonary arteries are normal in diameter. Lung: Bibasilar consolidation. Nodule in the right upper lobe again seen. Patchy opacities are seen within the lingula and left lower lobe. A few other smaller subcentimeter nodules are seen. Effusion: Moderate left and small right pleural effusion. Mediastinum: No evidence of mediastinal or hilar adenopathy. Other: The axilla is unremarkable. Tracheostomy tube good position. CONCLUSION: 1. No evidence for pulmonary embolism. 2. Bibasilar consolidation. 3. Prominent nodule in the right upper lobe again seen measuring 13 mm concerning for malignancy. 4. Patchy opacities in the lingula and left lower lobe likely infectious. Electronically signed by: Jose Coley MD 05/26/2018 2:35 PM EDT
--- NOTE | 2018-05-26 16:50 | ECG ---
Date Performed: 05/26/2018 Time Performed: 11:41:28 PTAGE: 73 years EKG: SINUS TACHYCARDIA MARKED LEFT AXIS DEVIATION LOW QRS VOLTAGE IN EXTREMITY LEADS INCOMPLETE RIGHT BUNDLE BRANCH BLOCK ABNORMAL ECG Since PREVIOUS TRACING , no significant change noted PREVIOUS TRACIN05/20/2018 11.48 DOCTOR: Karla Mejia Interpretating Date/Time 05/26/2018 16:48:04
[2018-05-26] MEDS: Azithromycin Inj 250 MG in Sodium Chlor 0.9% Inj 250 ML IV.SIG SCH (17:07)
[2018-05-26] MEDS: DAPTOmycin Inj 500 MG in Sodium Chlor 0.9% Inj 100 ML IV.SIG SCH (20:40)
[2018-05-26] MEDS: Micafungin Inj 150 MG in Sodium Chlor 0.9% Inj 100 ML IV.SIG SCH (20:40)
[2018-05-27] MEDS: Levothyroxine 150 MCG Tablet J-TUBE SCH (05:33)
[2018-05-27] MEDS: Ceftazidime/Avibactam Inj 0.94 GM in Sodium Chlor 0.9% Inj 50 ML IV.SIG SCH ×2 (05:33→18:30)
[2018-05-27] MEDS: Sod Chloride 0.9% Inj 1,000 ML IV.CONT SCH ×2 (05:34→18:37)
[2018-05-27] MEDS: Hyoscyamine Liq Drops 0.125 MG/ML 15 ML Bottle SL SCH ×4 (05:36→21:17)
[2018-05-27] MEDS: Lactobacillus Acidophilus/L. Spores Tablet J-TUBE SCH ×3 (08:57→18:31)
[2018-05-27] MEDS: Ascorbic Acid 500 MG Tablet J-TUBE SCH ×2 (08:57→21:16)
[2018-05-27] MEDS: Sodium Chloride 0.9% 2 ML Flush BID IV.FLUSH SCH ×2 (08:57→21:17)
[2018-05-27] MEDS: buPROPion 75 MG Tablet J-TUBE SCH ×2 (08:58→21:16)
--- NOTE | 2018-05-27 09:33 | P.PNIM ---
Subjective Interval history: Not in distress, discussed nursing. Son does not want any further evaluation for her abnormal ABIs. Not even a vascular surgery consult. Physical Exam Vital signs: Vital Signs 05/26/18 10:45 05/26/18 12:00 05/26/18 12:35 Temperature 100.3 F H 100.3 F H Pulse Rate 120 H 91 H Respiratory Rate 20 18 Blood Pressure 114/56 L 114/56 L Pulse Oximetry 93 L 95 95 05/26/18 16:00 05/26/18 17:38 05/26/18 20:00 Temperature 98.3 F 99.7 F H Pulse Rate 88 82 Respiratory Rate 18 16 Blood Pressure 130/62 128/65 Pulse Oximetry 95 95 93 L 05/27/18 00:00 05/27/18 04:00 05/27/18 07:51 Temperature 99.4 F 99.9 F H Pulse Rate 86 85 85 Respiratory Rate 18 18 Blood Pressure 132/63 135/73 Pulse Oximetry 96 95 05/27/18 07:58 Temperature 98.4 F Pulse Rate 96 H Respiratory Rate 18 Blood Pressure 139/63 Pulse Oximetry 95 Intake & Output 05/26/18 05/27/18 05/27/18 18:59 06:59 18:59 Intake Total 1500 / 1500 1370 / 1370 2550 / 2550 Output Total 1050 / 1050 1300 / 1300 Balance 450 / 450 70 / 70 2550 / 2550 Weight 59.2 kg Intake: IV 1250 / 1250 850 / 850 2550 / 2550 NS Inj 1,000 ML @ 80 mls/hr IV. 1000 / 1000 500 / 500 CONT .[id number] ANN Rx#:[id number] Azithromycin Inj 250 MG In NS 250 / 250 Inj 250 ML @ 250 mls/hr IV.SIG Q24H ANN Rx#:[id number] Avycaz Inj 0.94 GM In NS Inj 50 50 / 50 50 / 50 50 / 50 ML @ 25 mls/hr IV.SIG Q12H ANN Rx#:[id number] Cubicin Inj 500 MG In NS Inj 100 / 100 100 ML @ 200 mls/hr IV.SIG Q24H ANN Rx#:[id number] Mycamine Inj 150 MG In NS Inj 100 / 100 100 ML @ 100 mls/hr IV.SIG Q24H ANN Rx#:[id number] Flagyl 500 MG Inj 100 ML @ 100 200 / 200 100 / 100 mls/hr IV.SIG Q8H [facility] Rx#: [id number] Oral 50 / 50 0 / 0 Tube Feeding 0 / 0 320 / 320 Tube Irrigant 0 / 0 Water Bolus Amount 200 / 200 200 / 200 Other 0 / 0 Output: Urine 0 / 0 Stool 0 / 0 0 / 0 Urine/Stool Mix 0 / 0 Emesis 0 / 0 Urine Amount (Catheter) 800 / 800 900 / 900 Indwelling Urethral Catheter 800 / 800 900 / 900 Gastric Drainage 250 / 250 400 / 400 Gastrojejunostomy Tube 250 / 250 400 / 400 Jejunostomy Tube 0 / 0 Other: # Voids 0 # Incontinent Voids 0 # Urine Diapers 0 Date of Last Bowel Movement 05/25/18 05/26/18 05/26/18 # Bowel Movements 1 # Incontinent Bowel Movements 1 Narrative: Not in distress RRR, no murmurs Clear lungs bilaterally while on tracheostomy Abdomen soft, GJ tube now functioning. Awake, follows commands. - Urinary Catheter Management Indwelling Urethral Catheter Cath placed during this visit: yes Reason for continuing: Acute urinary retention Insertion date: 05/25/18 Insertion time: 14:00 Results - Labs CBC & Chem 7: 05/26/18 10:05 05/26/18 10:05 Laboratory Results - last 24 hr 05/25/18 05/26/18 05/26/18 13:20 10:05 10:05 WBC 4.2 RBC 3.84 L Hgb 11.6 D Hct 32.7 L MCV 85.4 MCH 30.1 MCHC 35.3 RDW 14.8 Plt Count 113 L MPV 9.6 Prelim Diff (Auto) Slide review pending Neut % (Auto) 69.5 Lymph % (Auto) 20.6 [place] % (Auto) 7.0 Eos % (Auto) 2.2 Baso % (Auto) 0.7 Neut # (Auto) 2.9 Lymph # (Auto) 0.9 L [place] # (Auto) 0.3 Eos # (Auto) 0.1 Baso # (Auto) 0.0 WBC Differential Manual diff final Seg Neuts % (Manual) 55 Band Neuts % (Manual) 17 H Lymphocytes % (Manual) 21 Monocytes % (Manual) 3 Eosinophils % (Manual) 1 Basophils % (Manual) 1 Metamyelocytes % (Man) 1 Blast Cells % (Manual) 1 H Abs Neuts (Manual) 3.1 Differential Comment . Platelet Estimate Low L Platelet Morphology Normal Sodium 143 Potassium 4.6 Chloride 107 Carbon Dioxide 26.9 Anion Gap 9 BUN 43 H Creatinine 1.35 H Estimated GFR 39 L Random Glucose 97 Lactic Acid Calcium 8.0 L Phosphorus 3.1 Magnesium 1.5 Total Bilirubin 1.2 H AST 22 ALT 27 Alkaline Phosphatase 95 Total Protein 5.8 L Albumin 2.0 L Urine Color Yellow Urine Clarity Cloudy H Urine pH 5.0 Ur Specific [place] 1.013 Urine Protein 100 H Urine Glucose (UA) Negative Urine Ketones Negative Urine Occult Blood Small H Urine Nitrate Negative Urine Bilirubin Negative Urine Urobilinogen Less than 2 Ur Leukocyte Esterase Large H Urine RBC 30 H Urine WBC Urine WBC Clumps Occasional H Ur Transition Epith Cell 3 Amorphous Sediment Rare H Urine Bacteria Moderate H Urine Mucus Few H Micro UA Comment Cath-culture ind Urine Culture Comments Cath-cult indicated 05/26/18 10:55 WBC RBC Hgb Hct MCV MCH MCHC RDW Plt Count MPV Prelim Diff (Auto) Neut % (Auto) Lymph % (Auto) [place] % (Auto) Eos % (Auto) Baso % (Auto) Neut # (Auto) Lymph # (Auto) [place] # (Auto) Eos # (Auto) Baso # (Auto) WBC Differential Seg Neuts % (Manual) Band Neuts % (Manual) Lymphocytes % (Manual) Monocytes % (Manual) Eosinophils % (Manual) Basophils % (Manual) Metamyelocytes % (Man) Blast Cells % (Manual) Abs Neuts (Manual) Differential Comment Platelet Estimate Platelet Morphology Sodium Potassium Chloride Carbon Dioxide Anion Gap BUN Creatinine Estimated GFR Random Glucose Lactic Acid 1.0 Calcium Phosphorus Magnesium Total Bilirubin AST ALT Alkaline Phosphatase Total Protein Albumin Urine Color Urine Clarity Urine pH Ur Specific [place] Urine Protein Urine Glucose (UA) Urine Ketones Urine Occult Blood Urine Nitrate Urine Bilirubin Urine Urobilinogen Ur Leukocyte Esterase Urine RBC Urine WBC Urine WBC Clumps Ur Transition Epith Cell Amorphous Sediment Urine Bacteria Urine Mucus Micro UA Comment Urine Culture Comments Microbiology 05/25/18 13:20 Catheterized Urine Urine Culture - Preliminary gram negative rods 05/22/18 17:10 Sputum - Endotracheal Gram Stain - Final 05/22/18 17:10 Sputum - Endotracheal Sputum Culture - Final Multidrug Resistant Pseudomonas aeruginosa 05/25/18 11:52 Blood - Peripheral Aerobic Blood Culture - Preliminary No growth in 1 day 05/25/18 11:52 Blood - Peripheral Anaerobic Blood Culture - Preliminary No growth in 1 day 05/25/18 11:59 Blood - Peripheral Aerobic Blood Culture - Preliminary No growth in 1 day 05/25/18 11:59 Blood - Peripheral Anaerobic Blood Culture - Preliminary No growth in 1 day 05/22/18 18:05 Blood - Peripheral Aerobic Blood Culture - Preliminary No growth in 4 days 05/22/18 18:05 Blood - Peripheral Anaerobic Blood Culture - Preliminary No growth in 4 days 05/22/18 18:00 Blood - Peripheral Aerobic Blood Culture - Preliminary No growth in 4 days 05/22/18 18:00 Blood - Peripheral Anaerobic Blood Culture - Preliminary No growth in 4 days 05/23/18 15:50 Fluid - Pleural fluid Gram Stain - Final 05/23/18 15:50 Fluid - Pleural fluid Body Fluid Culture - Final No growth in 72 hours (aerobically and anaerobically ) - Imaging Impressions Chest CTA 05/26/18 00:00 CONCLUSION: 1. No evidence for pulmonary embolism. 2. Bibasilar consolidation. 3. Prominent nodule in the right upper lobe again seen measuring 13 mm concerning for malignancy. 4. Patchy opacities in the lingula and left lower lobe likely infectious. Assessment and Plan - Assessment (1) Pneumonia Code(s): J18.9 - Pneumonia, unspecified organism Status: Acute (2) GERD (gastroesophageal reflux disease) Code(s): K21.9 - Gastro-esophageal reflux disease without esophagitis Status: Chronic (3) DVT (deep venous thrombosis) Code(s): I82.409 - Acute embolism and thrombosis of unspecified deep veins of unspecified lower extremity Status: Acute (4) Hypothyroidism Code(s): E03.9 - Hypothyroidism, unspecified Status: Chronic (5) Laryngeal squamous cell carcinoma Code(s): C32.9 - Malignant neoplasm of larynx, unspecified Status: Chronic (6) Protein-calorie malnutrition, severe Code(s): E43 - Unspecified severe protein-calorie malnutrition Status: Chronic - Plan This is a 73-year-old female with 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 The rapid response was called and the patient was transferred to ICU where she was placed on 60% oxygenation via trach collar. [facility] reconsulted 05/23 due to hypotension. Currently managed for recurrent respiratory infections with MDRO managed by ID. CT chest does demonstrate a moderate left pleural effusion with left lower lobe atelectasis s/p thoracocentesis, now managed by H/HEPAS. Tachycardia secondary to anemia -secondary to volume depletion and anemia, now status post transfusion of 3 units of blood and IVF, tachycardia resolved.Hgb stable. CTA negative for PE. Recheck CBC tomorrow. GJ tube dysfunction resolved. MDRO PSAE persistent colonisation PNA BLL, MDRO PSAE, Acinetobacter ID following, Dr. Canchola. Maher cultures and repeat C. difficile toxin negative. Bld Cx NG 2 day, UA Neg, Sputum pending On antimicrobial therapy per infectious disease for MDRO (micafungin, avycaz, daptomycin, Flagyl) -GERD Prevacid 30 mg per G-tube daily -Gastroparesis Chronic moderate protein energy malnutrition G tube to gravity. Continuous tube feeds with Vital 1.5 @ 55 ml/hr via J tube. Azithromycin 250 mg IV daily for gastric motility. Local wound care with bacitracin to G J-tube site. -History of squamous cell carcinoma of the larynx now status post tracheostomy due to recurrent aspiration Spiculated right upper lobe pulmonary nodule, multiple R pulmonary nodules Dr. Pineda has discussed risk/ benefits of biopsy with patient and her son on 05/05 and at that time they opted to defer biopsy. Per recent palliative care note there has been discussion of possibly pursuing biopsy. At this point patient is not stable for biopsy. Pulmonology following, Dr. Marcelino -JURGENL atelectasis and moderate pleural effusion s/p thoracocentisis on 05/23, pending Cx DVT right lower extremity on ultrasound 03/27/18 Lovenox 60 mg BID on hold until anemia source found Pancytopenia, chronic - Monitor every 3 days for now. Hypothyroidism Continue Synthroid 150 mcg per G-tube daily R 1st digit of foot with increased erythema s/p trimming of ingrow toenail Podiatry (of note patient on ABX for other infections) following, ABIs decreased, per son, he does not want any further work-up for now, he does not want any [facility] surgery consultation. 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 Depression Continue Lexapro and Wellbutrin Anxiety Klonopin 0.5 mg per G-tube every 8 hours Temazepam PRN insomnia CKD stage III Vitamin C supplementation Voiding, nephro on board DVT PPX: Lovenox Code Status: Full Code (4) Hypothyroidism Qualifiers: Hypothyroidism type: unspecified Qualified Code(s): E03.9 - Hypothyroidism, unspecified
[2018-05-27] MEDS: Azithromycin Inj 250 MG in Sodium Chlor 0.9% Inj 250 ML IV.SIG SCH (16:21)
[2018-05-27] MEDS: Micafungin Inj 150 MG in Sodium Chlor 0.9% Inj 100 ML IV.SIG SCH (21:17)
[2018-05-27] MEDS: Enoxaparin Inj 60 MG/0.6 ML Syringe SQ SCH (23:28)
[2018-05-27] MEDS: DAPTOmycin Inj 500 MG in Sodium Chlor 0.9% Inj 100 ML IV.SIG SCH (23:28)
[2018-05-28] MEDS: Hyoscyamine Liq Drops 0.125 MG/ML 15 ML Bottle SL SCH ×4 (06:11→22:44)
[2018-05-28] MEDS: Levothyroxine 150 MCG Tablet J-TUBE SCH (06:11)
[2018-05-28] MEDS: Ceftazidime/Avibactam Inj 0.94 GM in Sodium Chlor 0.9% Inj 50 ML IV.SIG SCH ×2 (06:11→18:00)
[2018-05-28] MEDS: Sod Chloride 0.9% Inj 1,000 ML IV.CONT SCH ×2 (06:18→18:29)
[2018-05-28 07:35] LABS: Hematocrit 30.2 % (35.0-46.0); Hemoglobin 10.5 gm/dL (11.6-15.3); Mean Corpuscular HGB Conc 34.7 % (32.0-36.0); Mean Corpuscular Hemoglobin 30.2 pg (27.0-34.0); Mean Corpuscular Volume 87.1 fL (80.0-100.0); Mean Platelet Volume 10.2 fL (7.0-11.0); Platelet Count 82 th/mm3 (150-450); Red Blood Count 3.47 mil/mm3 (4.00-5.30); Red Cell Distribution Width 14.9 % (11.6-17.2); White Blood Count 3.3 th/mm3 (4.0-11.0)
--- NOTE | 2018-05-28 08:20 | ECHRPT ---
Indication: Sepsis Possible Endocarditis CONCLUSIONS No definitive evidence of vegetations seen. With the amount of mitral annular calification and techn ically fair study quality which makes the diagnosis difficult. Reccomend GURMEET if suspicion is high for endocardititis. There is valvular regurgitation as stated below. The left ventricular systolic function is normal with an estimated ejection fraction in the range of 55-60%. Mildly dilated left ventricle. No regional wall motion. Moderate aortic valve regurgitation. There is mild tricuspid valve regurgitation. The estimated pulmonary arterial pressure is 47 mmHg. BP: / HR: Rhythm: MEASUREMENTS (Male / Female) Normal Values Technical Quality:Fair 2D ECHO LV Diastolic Diameter PLAX 5.4 cm 4.2 - 5.9 / 3.9 - 5.3 cm LV Systolic Diameter PLAX 3.6 cm IVS Diastolic Thickness 1.0 cm 0.6 - 1.0 / 0.6 - 0.9 cm LVPW Diastolic Thickness 1.0 cm 0.6 - 1.0 / 0.6 - 0.9 cm LV Relative Wall Thickness 0.4 RV Internal Dim ED PLAX 3.0 cm LVOT Diameter 1.8 cm Aortic Root Diameter 2.7 cm LA Systolic Diameter LX 3.6 cm 3.0 - 4.0 / 2.7 - 3.8 cm DOPPLER AV Peak Velocity 200.3 cm/s AV Peak Gradient 16.1 mmHg AV Mean Gradient 9.0 mmHg AV Velocity Time Integral 44.2 cm AI Peak Velocity 400.5 cm/s AI Peak Gradient 64.2 mmHg AI Pressure Half Time 295.5 ms Mitral E Point Velocity 160.0 cm/s Mitral A Point Velocity 167.0 cm/s Mitral E to A Ratio 1.0 LV E' Lateral Velocity 9.1 cm/s Mitral E to LV E' Lateral Ratio 17.6 LV E' Septal Velocity 9.8 cm/s Mitral E to LV E' Septal Ratio 16.2 TR Peak Velocity 304.0 cm/s TR Peak Gradient 37.0 mmHg Right Atrial Pressure 10.0 mmHg Pulmonary Artery Systolic Pressu 47.0 mmHg Right Ventricular Systolic Press 47.0 mmHg PV Peak Velocity 124.0 cm/s PV Peak Gradient 6.2 mmHg FINDINGS LEFT VENTRICLE Mildly dilated left ventricle. Wall thickness is normal. The left ventricular systolic function is normal with an estimated ejection fraction in the range of 55-60%. RIGHT VENTRICLE Normal right ventricular size and systolic function. LEFT ATRIUM The left atrial size is normal. RIGHT ATRIUM The right atrial size is normal. ATRIAL SEPTUM Normal atrial septal thickness without atrial level shunting by limited color doppler interrogation. AORTA The aortic root and proximal ascending aorta are normal in size on limited imaging. MITRAL VALVE Mitral annular calcification is present. AORTIC VALVE Trileaflet aortic valve. Moderate aortic valve regurgitation. TRICUSPID VALVE There is mild tricuspid valve regurgitation. The estimated pulmonary arterial pressure is 47 mmHg. PULMONARY VALVE No pulmonary valve regurgitation or stenosis. VESSELS The inferior vena cava is normal in size. PERICARDIUM No pericardial effusion. Negra Ashby MD (Electronically Signed) Final Date:28 May 2018 08:18
[2018-05-28] MEDS: Ascorbic Acid 500 MG Tablet J-TUBE SCH ×2 (08:46→20:42)
[2018-05-28] MEDS: Lactobacillus Acidophilus/L. Spores Tablet J-TUBE SCH ×3 (08:46→18:24)
[2018-05-28] MEDS: buPROPion 75 MG Tablet J-TUBE SCH ×2 (08:46→20:42)
[2018-05-28] MEDS: Sodium Chloride 0.9% 2 ML Flush BID IV.FLUSH SCH ×2 (08:47→20:41)
[2018-05-28 08:55] LABS: Burr Cells 2+; Eosinophils 2 % (0-4); Lymphocytes 15 % (9-44); Monocytes 7 % (0-8); Ovalocytes 1+; Platelet Morphology Normal (Normal); Promyelocyte 3 % (0-0)
--- NOTE | 2018-05-28 09:42 | P.PNPOD ---
Subjective Interval history: Right hallux nail infection, failed previous bedside procedure. Pt relates continued pain in the toe. She communicate through writing primarily. Physical Exam Vital signs: Vital Signs 05/27/18 12:00 05/27/18 15:38 05/27/18 16:00 Temperature 98.6 F 98.4 F Pulse Rate 75 71 72 Respiratory Rate 16 18 Blood Pressure 122/78 132/72 Pulse Oximetry 05/27/18 20:00 05/27/18 20:25 05/28/18 00:00 Temperature 98.6 F 98.7 F Pulse Rate 91 H 76 84 Respiratory Rate 21 18 21 Blood Pressure 137/67 130/60 Pulse Oximetry 96 98 94 L 05/28/18 04:00 Temperature 98.6 F Pulse Rate 86 Respiratory Rate 20 Blood Pressure 132/86 Pulse Oximetry Intake & Output 05/27/18 05/28/18 05/28/18 18:59 06:59 18:59 Intake Total 4670 / 4670 4095 / 4095 100 / 100 Output Total 1200 / 1200 1175 / 1175 Balance 3470 / 3470 2920 / 2920 100 / 100 Weight 60.6 kg Intake: IV 4000 / 4000 1150 / 1150 100 / 100 NS Inj 1,000 ML @ 80 mls/hr IV. 1000 / 1000 1000 / 1000 CONT .[id number] ANN Rx#:[id number] Azithromycin Inj 250 MG In NS 500 / 500 Inj 250 ML @ 250 mls/hr IV.SIG Q24H ANN Rx#:[id number] Avycaz Inj 0.94 GM In NS Inj 50 50 / 50 50 / 50 ML @ 25 mls/hr IV.SIG Q12H [facility] Rx#:[id number] Mycamine Inj 150 MG In NS Inj 100 / 100 100 ML @ 100 mls/hr IV.SIG Q24H ANN Rx#:[id number] Flagyl 500 MG Inj 100 ML @ 100 200 / 200 100 / 100 mls/hr IV.SIG Q8H ANN Rx#: [id number] Oral 150 / 150 Tube Feeding 320 / 320 1545 / 1545 Tube Irrigant 0 / 0 Water Bolus Amount 200 / 200 1400 / 1400 Other 0 / 0 Output: Urine 0 / 0 675 / 675 Stool 0 / 0 Urine/Stool Mix 0 / 0 Emesis 0 / 0 Urine Amount (Catheter) 850 / 850 Indwelling Urethral Catheter 850 / 850 Gastric Drainage 350 / 350 500 / 500 Gastrojejunostomy Tube 350 / 350 500 / 500 Jejunostomy Tube 0 / 0 Other: # Voids 0 # Incontinent Voids 0 # Urine Diapers 0 Date of Last Bowel Movement 05/27/18 # Bowel Movements 1 # Incontinent Bowel Movements 1 Narrative: Unchanged from original consultation exam. Erythema and tenderness persist to the right hallux. Medications and Allergies Active Medications: Active Medications Acetaminophen (Tylenol) 650 mg J-TUBE Q4H PRN PRN Reason: ELEVATED TEMP/HEADACHE Last Admin: 05/08/18 00:17 Dose: 650 mg Acetaminophen (Tylenol) 650 mg G-TUBE Q4H PRN PRN Reason: SEE LABEL COMMENTS Hydrocodone Bitart/Acetaminophen ([employer] 5/325) 1 tab J-TUBE Q4H PRN PRN Reason: PAIN 2-5 Last Admin: 05/27/18 21:16 Dose: 1 tab Hydrocodone Bitart/Acetaminophen ([employer] 5/325) 2 tab J-TUBE Q4H PRN PRN Reason: PAIN 6-10 Last Admin: 05/27/18 08:58 Dose: 2 tab Al Hydroxide/Mg Hydroxide (Milk Of Dhruv Bain) 30 ml J-TUBE Q12H PRN PRN Reason: Mild Constipation Albuterol (Duoneb Neb (Prn)) 1 ampul NEB Q2HR NEB PRN PRN Reason: WHEEZING Last Admin: 05/27/18 20:25 Dose: 1 ampul Ascorbic Acid (Vitamin C) 500 mg J-TUBE BID [facility] Last Admin: 05/28/18 08:46 Dose: 500 mg Bisacodyl (Dulcolax Supp) 10 mg RECTAL DAILY PRN PRN Reason: SEVERE CONSITIPATION Bupropion HCl (Wellbutrin) 150 mg J-TUBE BID [facility] Last Admin: 05/28/18 08:46 Dose: 150 mg Cetirizine HCl (Zyrtec) 10 mg J-TUBE HS [facility] Last Admin: 05/27/18 21:16 Dose: 10 mg Clonazepam (Klonopin) 0.5 mg G-TUBE Q8HR PRN PRN Reason: ANXIETY Last Admin: 05/24/18 17:22 Dose: 0.5 mg Diphenhydramine HCl (Benadryl) 25 mg J-TUBE Q4H PRN PRN Reason: ITCHING Last Admin: 05/09/18 09:07 Dose: 25 mg Diphenhydramine HCl (Benadryl) 25 mg G-TUBE Q4H PRN PRN Reason: SEE LABEL COMMENTS Enoxaparin Sodium (Lovenox Inj) 60 mg SQ Q24H ANN Last Admin: 05/27/18 23:28 Dose: 60 mg Escitalopram Oxalate (Lexapro) 20 mg J-TUBE DAILY ANN Last Admin: 05/28/18 08:46 Dose: 20 mg Glycopyrrolate (Robinul Inj) 0.4 mg IV.PUSH Q8H PRN PRN Reason: THICK SECRETIONS Last Admin: 05/28/18 08:45 Dose: 0.4 mg Hyoscyamine (Levsin Liq) 0.125 mg SL Q6H ANN Last Admin: 05/28/18 06:11 Dose: 0.125 mg Ceftazidime/Avibactam 0.94 gm/ (Sodium Chloride) 50 mls @ 25 mls/hr IV.SIG Q12H ANN Last Admin: 05/28/18 06:11 Dose: 25 mls/hr Metronidazole/Sodium Chloride (Flagyl 500 Mg Inj) 100 mls @ 100 mls/hr IV.SIG Q8H ANN Last Infusion: 05/28/18 06:18 Dose: Infused Micafungin Sodium 150 mg/ (Sodium Chloride) 100 mls @ 100 mls/hr IV.SIG Q24H ANN Last Infusion: 05/28/18 07:29 Dose: Infused Azithromycin 250 mg/ Sodium (Chloride) 250 mls @ 250 mls/hr IV.SIG Q24H ANN Last Infusion: 05/27/18 18:36 Dose: Infused Daptomycin 500 mg/ Sodium (Chloride) 100 mls @ 200 mls/hr IV.SIG Q24H ANN Last Admin: 05/27/18 23:28 Dose: 100 mls/hr Sodium Chloride (Ns Inj) 1,000 mls @ 80 mls/hr IV.CONT .[id number] ANN Last Admin: 05/28/18 06:18 Dose: 80 mls/hr Lactobacillus Acidophilus (Lactinex) 1 tab J-TUBE TID ANN Last Admin: 05/28/18 08:46 Dose: 1 tab Lansoprazole (Prevacid Solutab) 30 mg J-TUBE DAILY [facility] Last Admin: 05/28/18 08:46 Dose: 30 mg Levothyroxine Sodium (Synthroid) 150 mcg J-TUBE DAILY@0600 [facility] Last Admin: 05/28/18 06:11 Dose: 150 mcg Lidocaine HCl (Xylocaine 2% Viscous) 2.5 ml OROPHARYNG Q6H PRN PRN Reason: SEE LABEL COMMENTS Last Admin: 05/02/18 21:05 Dose: 2.5 ml Loperamide HCl (Imodium Liq) 2 mg J-TUBE PRN PRN PRN Reason: diarrhea Last Admin: 05/22/18 09:53 Dose: 2 mg Miscellaneous (Pill Splitter) 1 each OTHER UNSCH PRN PRN Reason: SEE LABEL COMMENTS Morphine Sulfate (Roxanol Liq) 5 mg SL Q4H PRN PRN Reason: BREAKTHROUGH pain 2-10 Last Admin: 05/26/18 03:36 Dose: 5 mg Multivitamins (Theragran) 1 tab J-TUBE DAILY [facility] Last Admin: 05/28/18 08:46 Dose: 1 tab Neomycin/Polymyxin/Bacitracin (Neosporin Oint) 0 applicatio TOPICAL DAILY [facility] Last Admin: 05/28/18 08:46 Dose: 1 applicatio Ondansetron HCl (Zofran Odt) 4 mg PO Q6H PRN PRN Reason: NAUSEA OR VOMITING Sennosides (Senokot) 17.2 mg J-TUBE Q12H PRN PRN Reason: Moderate Constipation Simethicone (Phazyme Chew) 125 mg J-TUBE Q4H PRN PRN Reason: RELATING TO BLOATING Last Admin: 05/24/18 10:21 Dose: 125 mg Sodium Chloride (Ns Flush) 2 ml IV.FLUSH BID [facility] Last Admin: 05/28/18 08:47 Dose: Not Given Sodium Chloride (Ns Flush) 2 ml IV.FLUSH PRN PRN PRN Reason: FLUSH AFTER USING IV ACCESS Sterile Water (Free Water) 0 ml J-TUBE Q6HR [facility] Last Admin: 05/28/18 06:11 Dose: 200 ml Temazepam (Restoril) 15 mg J-TUBE HS PRN PRN Reason: INSOMNIA Last Admin: 05/16/18 20:17 Dose: 15 mg Zinc Oxide (Zinc Oxide 20% Oint) 1 applicatio TOPICAL BID [facility] Last Admin: 05/28/18 08:47 Dose: 1 applicatio Zinc Sulfate (Zinc-220) 220 mg J-TUBE DAILY ANN Last Admin: 05/28/18 08:46 Dose: 220 mg Allergies Allergy/AdvReac Type Severity Reaction Status Date / Time epinephrine Allergy Severe TACHYCARDIA Verified 02/21/18 08:40 penicillin G Allergy Severe Hives Verified 02/21/18 08:40 peanut Allergy Intermediate ANAPHYLAXIS Verified 02/21/18 08:40 legumes Allergy Unknown Anaphylaxis Verified 03/06/18 21:48 soy Allergy Rash Verified 03/06/18 21:45 Home Medications Medication Instructions Recorded Confirmed Type cetirizine 10 mg PO HS 02/15/18 05/13/18 History escitalopram oxalate 20 mg FEEDING TUBE DAILY 02/15/18 05/13/18 History levothyroxine 100 mcg FEEDING TUBE DAILY 02/15/18 05/13/18 History ascorbic acid (vitamin C) 500 mg FEEDING TUBE BID 03/06/18 05/13/18 History multivitamin [Daily Multi-Vitamin] 1 tab FEEDING TUBE DAILY 03/06/18 05/13/18 History Results - Labs CBC & Chem 7: 05/28/18 05:44 05/26/18 10:05 Laboratory Results - last 24 hr 05/25/18 05/28/18 11:45 05:44 WBC 3.3 L RBC 3.47 L Hgb 10.5 L Hct 30.2 L MCV 87.1 MCH 30.2 MCHC 34.7 RDW 14.9 Plt Count 82 L MPV 10.2 Prelim Diff (Auto) Manual diff required WBC Differential Manual diff final Seg Neuts % (Manual) 66 Band Neuts % (Manual) 7 H Lymphocytes % (Manual) 15 Monocytes % (Manual) 7 Eosinophils % (Manual) 2 Promyelocytes % (Man) 3 H Abs Neuts (Manual) 2.5 Differential Comment . Platelet Estimate Low L Platelet Morphology Normal Ovalocytes 1+ H [place] Cells 2+ H Keratocytes Occ H Rout Panel Path Interp Microbiology 05/25/18 13:20 Catheterized Urine Urine Culture - Final Pseudomonas aeruginosa Multidrug Resistant 05/25/18 11:52 Blood - Peripheral Aerobic Blood Culture - Preliminary No growth in 2 days 05/25/18 11:52 Blood - Peripheral Anaerobic Blood Culture - Preliminary No growth in 2 days 05/25/18 11:59 Blood - Peripheral Aerobic Blood Culture - Preliminary No growth in 2 days 05/25/18 11:59 Blood - Peripheral Anaerobic Blood Culture - Preliminary No growth in 2 days 05/22/18 18:05 Blood - Peripheral Aerobic Blood Culture - Final No growth in 5 days 05/22/18 18:05 Blood - Peripheral Anaerobic Blood Culture - Final No growth in 5 days 05/22/18 18:00 Blood - Peripheral Aerobic Blood Culture - Final No growth in 5 days 05/22/18 18:00 Blood - Peripheral Anaerobic Blood Culture - Final No growth in 5 days Assessment and Plan - Assessment (1) Ingrown nail of great toe of right foot Code(s): L60.0 - Ingrowing nail Status: Acute - Plan -original procedure was went to be minimally invasive due to decreased circulation, however it has failed and the patient needs a more aggressive procedure to rid her of the infection. -procedure was discussed with pt in detail at bedside, all questions were answered -plan to return this afternoon for aggressive bi border nail avulsion vs entire nail plate avulsion
[2018-05-28] MEDS ORDERED: Lidocaine 1% Inj 50 ML Vial ONE (10:37)
--- NOTE | 2018-05-28 15:45 | P.PNIM ---
Subjective Interval history: Patient has no new complaints today. Discussed with RN. No new issues. Physical Exam Vital signs: Vital Signs 05/27/18 16:00 05/27/18 20:00 05/27/18 20:25 Temperature 98.4 F 98.6 F Pulse Rate 72 91 H 76 Respiratory Rate 18 21 18 Blood Pressure 132/72 137/67 Pulse Oximetry 96 98 05/28/18 00:00 05/28/18 04:00 05/28/18 14:08 Temperature 98.7 F 98.6 F Pulse Rate 84 86 Respiratory Rate 21 20 Blood Pressure 130/60 132/86 Pulse Oximetry 94 L 94 L Intake & Output 05/27/18 05/28/18 05/28/18 18:59 06:59 18:59 Intake Total 4670 / 4670 4095 / 4095 100 / 100 Output Total 1200 / 1200 1175 / 1175 Balance 3470 / 3470 2920 / 2920 100 / 100 Weight 60.6 kg Intake: IV 4000 / 4000 1150 / 1150 100 / 100 NS Inj 1,000 ML @ 80 mls/hr IV. 1000 / 1000 1000 / 1000 CONT .[id number] ANN Rx#:[id number] Azithromycin Inj 250 MG In NS 500 / 500 Inj 250 ML @ 250 mls/hr IV.SIG Q24H ANN Rx#:[id number] Avycaz Inj 0.94 GM In NS Inj 50 50 / 50 50 / 50 ML @ 25 mls/hr IV.SIG Q12H ANN Rx#:[id number] Mycamine Inj 150 MG In NS Inj 100 / 100 100 ML @ 100 mls/hr IV.SIG Q24H ANN Rx#:[id number] Flagyl 500 MG Inj 100 ML @ 100 200 / 200 100 / 100 mls/hr IV.SIG Q8H ANN Rx#: [id number] Oral 150 / 150 Tube Feeding 320 / 320 1545 / 1545 Tube Irrigant 0 / 0 Water Bolus Amount 200 / 200 1400 / 1400 Other 0 / 0 Output: Urine 0 / 0 675 / 675 Stool 0 / 0 Urine/Stool Mix 0 / 0 Emesis 0 / 0 Urine Amount (Catheter) 850 / 850 Indwelling Urethral Catheter 850 / 850 Gastric Drainage 350 / 350 500 / 500 Gastrojejunostomy Tube 350 / 350 500 / 500 Jejunostomy Tube 0 / 0 Other: # Voids 0 # Incontinent Voids 0 # Urine Diapers 0 Date of Last Bowel Movement 05/27/18 05/28/18 # Bowel Movements 1 # Incontinent Bowel Movements 1 Narrative: Patient appears older than stated age. Trach in place. RRR, no murmurs Trach. Upper respiratory congestion sounds otherwise clear to auscultation bilaterally. Abdomen soft, GJ tube in place Awake, follows commands. - Urinary Catheter Management Indwelling Urethral Catheter Cath placed during this visit: yes Reason for continuing: Acute urinary retention Insertion date: 05/25/18 Insertion time: 14:00 Results - Labs CBC & Chem 7: 05/28/18 05:44 05/26/18 10:05 Laboratory Results - last 24 hr 05/25/18 05/28/18 11:45 05:44 WBC 3.3 L RBC 3.47 L Hgb 10.5 L Hct 30.2 L MCV 87.1 MCH 30.2 MCHC 34.7 RDW 14.9 Plt Count 82 L MPV 10.2 Prelim Diff (Auto) Manual diff required WBC Differential Manual diff final Seg Neuts % (Manual) 66 Band Neuts % (Manual) 7 H Lymphocytes % (Manual) 15 Monocytes % (Manual) 7 Eosinophils % (Manual) 2 Promyelocytes % (Man) 3 H Abs Neuts (Manual) 2.5 Differential Comment . Platelet Estimate Low L Platelet Morphology Normal Ovalocytes 1+ H Zion Cells 2+ H Keratocytes Occ H Rout Panel Path Interp Microbiology 05/25/18 11:52 Blood - Peripheral Aerobic Blood Culture - Preliminary No growth in 3 days 05/25/18 11:52 Blood - Peripheral Anaerobic Blood Culture - Preliminary No growth in 3 days 05/25/18 11:59 Blood - Peripheral Aerobic Blood Culture - Preliminary No growth in 3 days 05/25/18 11:59 Blood - Peripheral Anaerobic Blood Culture - Preliminary No growth in 3 days 05/25/18 13:20 Catheterized Urine Urine Culture - Final Pseudomonas aeruginosa Multidrug Resistant Assessment and Plan - Assessment (1) Pneumonia Code(s): J18.9 - Pneumonia, unspecified organism Status: Acute (2) GERD (gastroesophageal reflux disease) Code(s): K21.9 - Gastro-esophageal reflux disease without esophagitis Status: Chronic (3) DVT (deep venous thrombosis) Code(s): I82.409 - Acute embolism and thrombosis of unspecified deep veins of unspecified lower extremity Status: Acute (4) Hypothyroidism Code(s): E03.9 - Hypothyroidism, unspecified Status: Chronic (5) Laryngeal squamous cell carcinoma Code(s): C32.9 - Malignant neoplasm of larynx, unspecified Status: Chronic (6) Protein-calorie malnutrition, severe Code(s): E43 - Unspecified severe protein-calorie malnutrition Status: Chronic - Plan 73-year-old female with 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 The rapid response was called and the patient was transferred to ICU where she was placed on 60% oxygenation via trach collar. [facility] reconsulted 05/23 due to hypotension. Currently managed for recurrent respiratory infections with MDRO managed by ID. CT chest does demonstrate a moderate left pleural effusion with left lower lobe atelectasis s/p thoracocentesis, now managed by [facility]. Tachycardia secondary to anemia -secondary to volume depletion and anemia, now status post transfusion of 3 units of blood and IVF, tachycardia resolved.Hgb stable. CTA negative for PE. Check H&H every few days or as needed. R 1st digit of foot with increased erythema s/p trimming of ingrow toenail Podiatry (of note patient on ABX for other infections) following, ABIs decreased , per son, he does not want any further work-up for now, he does not want any Vascular surgery consultation. 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 Podiatry planning to trim the toenail more aggressively today. GJ tube dysfunction resolved. MDRO PSAE persistent colonisation PNA BLL, MDRO PSAE, Acinetobacter ID following, Dr. Canchola. Maher cultures and repeat C. difficile toxin negative. Bld Cx NG 2 day, UA Neg, Sputum pending On antimicrobial therapy per infectious disease for MDRO (micafungin, avycaz, daptomycin, Flagyl) -GERD Prevacid 30 mg per G-tube daily -Gastroparesis Chronic moderate protein energy malnutrition G tube to gravity. Continuous tube feeds with Vital 1.5 @ 55 ml/hr via J tube. Azithromycin 250 mg IV daily for gastric motility. Local wound care with bacitracin to G J-tube site. -History of squamous cell carcinoma of the larynx now status post tracheostomy due to recurrent aspiration Spiculated right upper lobe pulmonary nodule, multiple R pulmonary nodules Dr. Pineda has discussed risk/ benefits of biopsy with patient and her son on 05/05 and at that time they opted to defer biopsy. Per recent palliative care note there has been discussion of possibly pursuing biopsy. At this point patient is not stable for biopsy. Pulmonology following, Dr. Marcelino -JURGENL atelectasis and moderate pleural effusion s/p thoracocentisis on 05/23, pending Cx DVT right lower extremity on ultrasound 03/27/18 Lovenox 60 mg BID on hold until anemia source found Pancytopenia, chronic - Monitor every 3 days for now. Hypothyroidism Continue Synthroid 150 mcg per G-tube daily Depression Continue Lexapro and Wellbutrin Anxiety Klonopin 0.5 mg per G-tube every 8 hours Temazepam PRN insomnia CKD stage III Vitamin C supplementation Voiding, nephro on board DVT PPX: Lovenox Code Status: Full Code Discharge Planning: Will need SNF when ready. (4) Hypothyroidism Qualifiers: Hypothyroidism type: unspecified Qualified Code(s): E03.9 - Hypothyroidism, unspecified
[2018-05-28] MEDS: Azithromycin Inj 250 MG in Sodium Chlor 0.9% Inj 250 ML IV.SIG SCH (16:00)
[2018-05-28] MEDS: Morphine Sulfate Oral Liq 10 MG/0.5 ML Syringe SL PRN (18:00)
[2018-05-28] MEDS: Micafungin Inj 150 MG in Sodium Chlor 0.9% Inj 100 ML IV.SIG SCH (20:31)
[2018-05-28] MEDS: DAPTOmycin Inj 500 MG in Sodium Chlor 0.9% Inj 100 ML IV.SIG SCH (20:33)
[2018-05-28] MEDS: Acetaminophen 325 MG Tablet J-TUBE PRN (20:42)
[2018-05-29] MEDS: Enoxaparin Inj 60 MG/0.6 ML Syringe SQ SCH (00:15)
[2018-05-29] MEDS: Morphine Sulfate Oral Liq 10 MG/0.5 ML Syringe SL PRN ×2 (03:56→16:08)
[2018-05-29] MEDS: Hyoscyamine Liq Drops 0.125 MG/ML 15 ML Bottle SL SCH ×4 (03:58→21:16)
[2018-05-29] MEDS: Ceftazidime/Avibactam Inj 0.94 GM in Sodium Chlor 0.9% Inj 50 ML IV.SIG SCH ×2 (06:31→18:29)
[2018-05-29] MEDS: Sod Chloride 0.9% Inj 1,000 ML IV.CONT SCH (06:31)
[2018-05-29] MEDS: Levothyroxine 150 MCG Tablet J-TUBE SCH (08:38)
[2018-05-29] MEDS: Ascorbic Acid 500 MG Tablet J-TUBE SCH ×2 (09:00→21:00)
[2018-05-29] MEDS: buPROPion 75 MG Tablet J-TUBE SCH ×2 (09:00→21:00)
[2018-05-29] MEDS: Lactobacillus Acidophilus/L. Spores Tablet J-TUBE SCH ×3 (09:00→18:24)
[2018-05-29] MEDS: Sodium Chloride 0.9% 2 ML Flush BID IV.FLUSH SCH ×2 (09:00→21:00)
[2018-05-29] MEDS: Simethicone 125 MG Chew Tablet J-TUBE PRN (09:41)
--- NOTE | 2018-05-29 10:32 | XR ---
EXAM DATE: 05/29/2018 10:00 AM EDT AGE/SEX: 73 years / Female INDICATIONS: Angina CLINICAL DATA: This is the patient's subsequent encounter. Patient reports that signs and symptoms h ave been present for 1 week and indicates a pain score of 0/10. MEDICAL/SURGICAL HISTORY: . Carcinoma, cervical. Carcinoma, rectal. Gastroesophageal reflux di sease. . Cholecystectomy. Appendectomy. Hysterectomy COMPARISON: [facility] – [place], CHEST 1V SINGLE AP, 05/25/2018. . FINDINGS: A single AP view of the chest demonstrates bilateral patchy airspace disease. Heart enlarged. Tracheo stomy tube unchanged. The cardiomediastinal contours are unremarkable. Osseous structures are intac t. CONCLUSION: Diffuse bilateral patchy airspace disease likely pulmonary edema. Electronically signed by: Jose Coley MD 05/29/2018 10:31 AM EDT
[2018-05-29 11:47] LABS: Hematocrit 31.8 % (35.0-46.0); Hemoglobin 10.8 gm/dL (11.6-15.3); Mean Corpuscular Hemoglobin 30.2 pg (27.0-34.0); Mean Platelet Volume 10.1 fL (7.0-11.0); Platelet Count 78 th/mm3 (150-450); Red Blood Count 3.58 mil/mm3 (4.00-5.30); White Blood Count 3.4 th/mm3 (4.0-11.0)
[2018-05-29 11:54] LABS: Calcium 6.9 mg/dL (8.5-10.1); Carbon Dioxide 20.3 meq/L (21.0-32.0); Potassium 3.9 meq/L (3.5-5.1); Troponin I 0.03 ng/mL (0.02-0.05)
[2018-05-29 12:14] LABS: Calcium-Albumin Corrected 7.9 mg/dL (8.5-10.1); Total Protein 5.2 g/dL (6.4-8.2)
--- NOTE | 2018-05-29 12:33 | ECG ---
Date Performed: 05/29/2018 Time Performed: 10:22:17 PTAGE: 73 years EKG: SINUS TACHYCARDIA BORDERLINE LEFT AXIS DEVIATION LOW QRS VOLTAGE IN EXTREMITY LEADS ABNORMA L ECG PREVIOUS TRACING : 05/26/2018 11.41 No significant change from previous tracing noted. DOCTOR: Benny Almonte Interpretating Date/Time 05/29/2018 12:32:02
--- NOTE | 2018-05-29 13:46 | P.PNIM ---
Subjective Interval history: Patient seen earlier this morning. She complained of right-sided chest pain. A stat chest x-ray was consistent with pulmonary edema. EKG shows sinus tachycardia. Physical Exam Vital signs: Vital Signs 05/28/18 14:08 05/28/18 16:00 05/28/18 17:47 Temperature 98.6 F Pulse Rate 88 Respiratory Rate 18 Blood Pressure 95/58 L Pulse Oximetry 94 L 94 L 05/28/18 20:00 05/29/18 00:00 05/29/18 08:00 Temperature 100 F H 98.1 F 100.4 F H Pulse Rate 88 69 127 H Respiratory Rate 18 16 Blood Pressure 129/62 116/56 L Pulse Oximetry 93 L 94 L 05/29/18 10:01 05/29/18 12:21 Temperature Pulse Rate 133 H Respiratory Rate 24 Blood Pressure Pulse Oximetry 94 L Intake & Output 05/28/18 05/29/18 05/29/18 18:59 06:59 18:59 Intake Total 2660 / 2660 2250 / 2250 1500 / 1500 Output Total 1300 / 1300 1200 / 1200 Balance 1360 / 1360 1050 / 1050 1500 / 1500 Intake: IV 1350 / 1350 1250 / 1250 1500 / 1500 NS Inj 1,000 ML @ 80 mls/hr IV. 1000 / 1000 1000 / 1000 1000 / 1000 CONT .[id number] ANN Rx#:[id number] Azithromycin Inj 250 MG In NS 250 / 250 Inj 250 ML @ 250 mls/hr IV.SIG Q24H ANN Rx#:[id number] Avycaz Inj 0.94 GM In NS Inj 50 50 / 50 50 / 50 50 / 50 ML @ 25 mls/hr IV.SIG Q12H ANN Rx#:[id number] Cubicin Inj 500 MG In NS Inj 100 / 100 100 ML @ 200 mls/hr IV.SIG Q24H ANN Rx#:[id number] Mycamine Inj 150 MG In NS Inj 100 / 100 100 / 100 100 ML @ 100 mls/hr IV.SIG Q24H ANN Rx#:[id number] Flagyl 500 MG Inj 100 ML @ 100 200 / 200 100 / 100 100 / 100 mls/hr IV.SIG Q8H ANN Rx#: [id number] Oral 150 / 150 Tube Feeding 660 / 660 1000 / 1000 Tube Irrigant 0 / 0 Water Bolus Amount 500 / 500 Other 0 / 0 Output: Urine 800 / 800 850 / 850 Stool 0 / 0 Urine/Stool Mix 0 / 0 Emesis 0 / 0 Gastric Drainage 500 / 500 350 / 350 Gastrojejunostomy Tube 500 / 500 350 / 350 Jejunostomy Tube 0 / 0 Other: # Voids 0 # Incontinent Voids 0 # Urine Diapers 0 Date of Last Bowel Movement 05/28/18 05/28/18 # Bowel Movements 1 1 # Incontinent Bowel Movements 1 Narrative: Patient appears older than stated age. Trach in place. RRR, no murmurs Trach. Upper respiratory congestion sounds, copious secretions. Markedly diminished breath sounds bilaterally at the bases Abdomen soft, GJ tube in place Awake, follows commands. - Urinary Catheter Management Indwelling Urethral Catheter Cath placed during this visit: yes Reason for continuing: Acute urinary retention Insertion date: 05/25/18 Insertion time: 14:00 Results - Labs CBC & Chem 7: 05/29/18 10:50 05/29/18 10:50 Laboratory Results - last 24 hr 05/29/18 05/29/18 10:50 10:50 WBC 3.4 L RBC 3.58 L Hgb 10.8 L Hct 31.8 L MCV 89.0 MCH 30.2 MCHC 34.0 RDW 15.0 Plt Count 78 L MPV 10.1 Sodium 141 Potassium 3.9 Chloride 106 Carbon Dioxide 20.3 L Anion Gap 15 BUN 35 H Creatinine 1.15 H Estimated GFR 46 L Random Glucose 105 Calcium 6.9 L* Prot Corrected Calcium 7.9 L Troponin I 0.03 Total Protein 5.2 L D Microbiology 05/25/18 11:52 Blood - Peripheral Aerobic Blood Culture - Preliminary No growth in 4 days 05/25/18 11:52 Blood - Peripheral Anaerobic Blood Culture - Preliminary No growth in 4 days 05/25/18 11:59 Blood - Peripheral Aerobic Blood Culture - Preliminary No growth in 4 days 05/25/18 11:59 Blood - Peripheral Anaerobic Blood Culture - Preliminary No growth in 4 days - Imaging Impressions Chest X-Ray 05/29/18 10:00 CONCLUSION: Diffuse bilateral patchy airspace disease likely pulmonary edema. Assessment and Plan - Assessment (1) Pneumonia Code(s): J18.9 - Pneumonia, unspecified organism Status: Acute (2) GERD (gastroesophageal reflux disease) Code(s): K21.9 - Gastro-esophageal reflux disease without esophagitis Status: Chronic (3) DVT (deep venous thrombosis) Code(s): I82.409 - Acute embolism and thrombosis of unspecified deep veins of unspecified lower extremity Status: Acute (4) Hypothyroidism Code(s): E03.9 - Hypothyroidism, unspecified Status: Chronic (5) Laryngeal squamous cell carcinoma Code(s): C32.9 - Malignant neoplasm of larynx, unspecified Status: Chronic (6) Protein-calorie malnutrition, severe Code(s): E43 - Unspecified severe protein-calorie malnutrition Status: Chronic - Plan 73-year-old female with 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 Recurrent issues with respiratory failure, MDRO in the sputum and urine. Persistent issues with high gastric output and anemia. Acute on chronic respiratory failure:-History of squamous cell carcinoma of the larynx now status post tracheostomy due to recurrent aspiration Spiculated right upper lobe pulmonary nodule, multiple R pulmonary nodules Dr. Pineda has discussed risk/ benefits of biopsy with patient and her son on 05/05 and at that time they opted to defer biopsy. Per recent palliative care note there has been discussion of possibly pursuing biopsy. At this point patient is not stable for biopsy. Pulmonology following, Dr. Marcelino -JURGENL atelectasis and moderate pleural effusion s/p thoracocentesis on 05/23, pending Cx 05/29: Worsening respiratory status with pulmonary edema. Patient was given a dose of 40 mg IV Lasix. She continues to have worsening respiratory distress. I discussed the case with pulmonology. Given persistent tachycardia and worsening respiratory failure, the patient will be transferred to the ICU with [facility] consult. - I also discussed the patient's condition with her son Alireza. He wants to continue with aggressive care for now. MDRO PSAE persistent colonisation PNA BLL, MDRO PSAE, Acinetobacter ID following, Dr. Canchola. Maher cultures and repeat C. difficile toxin negative. Bld Cx NG. Sputum with persistent Pseudomonas, MDRO. Urine cultures with Pseudomonas and VRE. On antimicrobial therapy per infectious disease for MDRO (micafungin, avycaz, daptomycin, Flagyl) Sinus Tachycardia -Suspect this is related to worsening pulmonary status. Could also be related to volume. Difficult to establish euvolemic state in this patient given the need for intermittent blood transfusion, IV fluid, persistent high gastric output. -Transferred to [facility] to address pulmonary status as noted above. R 1st digit of foot with increased erythema s/p trimming of ingrow toenail Podiatry (of note patient on ABX for other infections) following, ABIs decreased , per son, he does not want any further work-up for now, he does not want any Vascular surgery consultation. 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 Podiatry following. GJ tube dysfunction Tube replaced but she continues to have high output from Gtube. -GERD Prevacid 30 mg per G-tube daily -Gastroparesis Chronic moderate protein energy malnutrition G tube to gravity. Continuous tube feeds with Vital 1.5 @ 55 ml/hr via J tube. Azithromycin 250 mg IV daily for gastric motility. Local wound care with bacitracin to G J-tube site. DVT right lower extremity on ultrasound 03/27/18 Lovenox 60 mg BID on hold until anemia source found Pancytopenia, chronic - Monitor every 3 days for now. 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 I updated the patient's son and he wants to continue with aggressive care. (4) Hypothyroidism Qualifiers: Hypothyroidism type: unspecified Qualified Code(s): E03.9 - Hypothyroidism, unspecified
[2018-05-29 14:36] LABS: ABG Base Excess -3.8 mmol/L (-2-2); ABG PCO2 30 mmHg (38-42); ABG PO2 69 mmHG (61-120)
--- NOTE | 2018-05-29 14:40 | P.PNCC ---
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 The rapid response was called and the patient was transferred to ICU where she was placed on 60% oxygenation via trach collar. The critical care medicine was consulted for an admission. Subjective: [facility] reconsulted 05/23 due to hypotension. She has been on the hospitalist service, followed by multiple consulting services. She is s/p trach with recurrent respiratory infections with MDRO managed by ID. She has significant respiratory secretions with suctioning, these are reportedly increased. She is afebrile, persistent pancytopenia. She has a G/J tube, G tube is kept to gravity with high output, ~1-2 L of bilious drainage per day. She has been followed by gastroenterology, on pharmacotherapy for gastric motility. Upper GI 05/21 showed no evidence of obstruction. Today she developed hypotension with SBP 80/40. BP ultimately normalized after [address] chest/ abd pelvis was obtained. G/J tube is in satisfactory position and there are no acute intra- abdominal findings. CT chest does demonstrate a moderate left pleural effusion with left lower lobe atelectasis. She has been having loose stools. Repeat C. difficile PCR pending 05/29 [facility] Reconsult for SOB, pulm edema. Patient i s73 yo with hx chronic resp failure s/p trach and PEG tube placement currently on TP's with 60% FIO2. CXR today showed pulm edema given Lasix 40mg x1 with good response in UOP. Awake and alert. Tachycardic, T:100.4. Objective Vital Signs / I&O: Vital Signs 05/28/18 16:00 05/28/18 17:47 05/28/18 20:00 Temperature 98.6 F 100 F H Pulse Rate 88 88 Respiratory Rate 18 18 Blood Pressure 95/58 L 129/62 Pulse Oximetry 94 L 93 L 05/29/18 00:00 05/29/18 08:00 05/29/18 10:01 Temperature 98.1 F 100.4 F H Pulse Rate 69 135 H Respiratory Rate 16 Blood Pressure 116/56 L Pulse Oximetry 94 L 94 L 05/29/18 12:00 05/29/18 12:21 Temperature Pulse Rate 140 H 133 H Respiratory Rate 24 24 Blood Pressure 100/50 L Pulse Oximetry 95 Intake & Output 05/28/18 05/29/18 05/29/18 18:59 06:59 18:59 Intake Total 2660 / 2660 2250 / 2250 1500 / 1500 Output Total 1300 / 1300 1200 / 1200 Balance 1360 / 1360 1050 / 1050 1500 / 1500 Intake: IV 1350 / 1350 1250 / 1250 1500 / 1500 NS Inj 1,000 ML @ 80 mls/hr IV. 1000 / 1000 1000 / 1000 1000 / 1000 CONT .[id number] ANN Rx#:[id number] Azithromycin Inj 250 MG In NS 250 / 250 Inj 250 ML @ 250 mls/hr IV.SIG Q24H ANN Rx#:[id number] Avycaz Inj 0.94 GM In NS Inj 50 50 / 50 50 / 50 50 / 50 ML @ 25 mls/hr IV.SIG Q12H ANN Rx#:[id number] Cubicin Inj 500 MG In NS Inj 100 / 100 100 ML @ 200 mls/hr IV.SIG Q24H ANN Rx#:[id number] Mycamine Inj 150 MG In NS Inj 100 / 100 100 / 100 100 ML @ 100 mls/hr IV.SIG Q24H ANN Rx#:[id number] Flagyl 500 MG Inj 100 ML @ 100 200 / 200 100 / 100 100 / 100 mls/hr IV.SIG Q8H ANN Rx#: [id number] Oral 150 / 150 Tube Feeding 660 / 660 1000 / 1000 Tube Irrigant 0 / 0 Water Bolus Amount 500 / 500 Other 0 / 0 Output: Urine 800 / 800 850 / 850 Stool 0 / 0 Urine/Stool Mix 0 / 0 Emesis 0 / 0 Gastric Drainage 500 / 500 350 / 350 Gastrojejunostomy Tube 500 / 500 350 / 350 Jejunostomy Tube 0 / 0 Other: # Voids 0 # Incontinent Voids 0 # Urine Diapers 0 Date of Last Bowel Movement 05/28/18 05/28/18 # Bowel Movements 1 1 # Incontinent Bowel Movements 1 Result Diagrams: 05/29/18 10:50 05/29/18 10:50 Other Results: Laboratory Results - last 12 hr 05/29/18 05/29/18 10:50 10:50 WBC 3.4 L RBC 3.58 L Hgb 10.8 L Hct 31.8 L MCV 89.0 MCH 30.2 MCHC 34.0 RDW 15.0 Plt Count 78 L MPV 10.1 Sodium 141 Potassium 3.9 Chloride 106 Carbon Dioxide 20.3 L Anion Gap 15 BUN 35 H Creatinine 1.15 H Estimated GFR 46 L Random Glucose 105 Calcium 6.9 L* Prot Corrected Calcium 7.9 L Troponin I 0.03 Total Protein 5.2 L D Imaging: Abdomen/Bladder Ultrasound 05/06/18 00:00 CONCLUSION: 1. Increased renal echogenicity characteristic of medical renal disease. Small cyst right kidney. Dependent debris in the bladder. Tube Check 05/20/18 00:00 CONCLUSION: 1. Uncomplicated tube injection as above. The gastrojejunostomy tube is in good position. If there is concern for duodenal stricture resulting in a functional obstruction consideration could be made to the administration of barium either orally or through the gastric lumen of the tube to assess for any obstruction. Thin iodinated contrast would be limited in trying to assess this. Upper GI Series 05/21/18 00:00 CONCLUSION: No evidence of gastric outlet or duodenal obstruction. Abdomen/Pelvis CT 05/22/18 00:00 CONCLUSION: 1. Diverticulosis without perceptible diverticulitis or other acute inflammatory changes. 2. The gastrojejunostomy tube appears appropriately positioned. No perceptible associated acute complication. 3. There are scattered tiny nonobstructing stones of both kidneys and a small cyst on the right. 4. Small sliding-type hiatal hernia again seen. Chest CT 05/22/18 16:12 CONCLUSION: 1. Moderate left pleural effusion with atelectasis of the left lower lobe. 2. Mild right base atelectasis, improved compared to prior CT. 3. Right upper lobe pulmonary nodules are stable but the larger one remains concerning for primary bronchogenic carcinoma. Chest Ultrasound 05/23/18 00:00 CONCLUSION: 1. Lastly 360 cc of pleural effusion on the left. This does not appear loculated or complex. Site was marked Thoracentesis Ultrasound 05/23/18 00:00 CONCLUSION: Uncomplicated ultrasound-guided left chest thoracentesis as above. Extremity Arterial Study 05/24/18 00:00 CONCLUSION: 1. Severe reduction of the ABIs bilaterally. Abdomen X-Ray 05/26/18 00:00 CONCLUSION: 1. GJ tube appears to be in appropriate position with distal end of the jejunal feeding tube in the left upper quadrant. 2. Persistent pleural-parenchymal opacity at the left lung base. Chest CTA 05/26/18 00:00 CONCLUSION: 1. No evidence for pulmonary embolism. 2. Bibasilar consolidation. 3. Prominent nodule in the right upper lobe again seen measuring 13 mm concerning for malignancy. 4. Patchy opacities in the lingula and left lower lobe likely infectious. Chest X-Ray 05/29/18 10:00 CONCLUSION: Diffuse bilateral patchy airspace disease likely pulmonary edema. Objective Remarks: GENERAL: Chronically ill appearing elderly female who is laying in [facility] bed on trach collar. SKIN: Warm and dry. HEAD: Atraumatic. Normocephalic. EYES: Pupils equal and round. No scleral icterus. No injection or drainage. ENT: No nasal bleeding or discharge. NECK: Trachea midline, 6 cuff less fenestrated trach in place. Moderate yellow secretions with suctioning. CARDIOVASCULAR:Tachycardic . No murmurs rubs or gallops. RESPIRATORY: Occasional rhonchi bilaterally, diminished bibasilar. No wheezes or rales. GASTROINTESTINAL: Abdomen soft, non-tender, nondistended. She has a GJ tube. Continuous tube feeds are running via the J-tube. G-tube is to gravity with bilious output. The GJ tube insertion site some clot around it. There is no exudate. MUSCULOSKELETAL: Extremities without clubbing, cyanosis. There is trace pedal edema. NEUROLOGICAL: Awake and alert. No obvious cranial nerve deficits. Moves all extremities without lateralizing signs Assessment and Plan - Assessment and Plan Plan: NEURO: Depression Continue Lexapro 20 mg per G-tube daily. Continue Wellbutrin 150 mg/day to twice daily. Anxiety Klonopin 0.5 mg per G-tube every 8 hours Lortab as needed for pain. RESP: History of squamous cell carcinoma of the larynx now status post tracheostomy due to recurrent aspiration Spiculated right upper lobe pulmonary nodule, multiple R pulmonary nodules Pulmonary edema Continue with oxygen keep sats >92% Bronchodilators, check ABG CXR today pulmonary edema given LAsix 40mg x1 earlier will give additional dose Lasix 40mg x1 Pulmonology following, Dr. Marcelino CV: Monitor HR and BP keep MAP>65mmHg GI: GERD Prevacid 30 mg per G-tube daily Gastroparesis Chronic moderate protein energy malnutrition G tube to gravity. Continuous tube feeds with Vital 1.5 @ 55 ml/hr via J tube. Azithromycin 250 mg IV daily for gastric motility. Local wound care with bacitracin to G J-tube site. FEN/RENAL: CKD stage III Vitamin C supplementation Monitor renal function, I/O's, electrolytes replaceemnt per protocol. Place on Lasix 40mg daily ID: ID following, Dr. Canchola. Abx per ID for MDRO (micafungin, avycaz, daptomycin, Flagyl) Monitor for signs of infections ( Fever, WBC) 05/22 Sputum cx: Pseudomonas MDR 05/25 Urine cx: Pseudomonas MDR HEME: DVT right lower extremity on ultrasound 03/27/18 on Lovenox 60 mg. Monitor CBC, checlk Hep PLT ab r/o HIT s/p transfusion 3u PRBC on 05/25 ENDO: Hypothyroidism Continue Synthroid 150 mcg per G-tube daily PROPH: Lovenox as per above. PPI as per above. ACCESS: Peripheral IV providing adequate access at this time. Palliative care is following Level 3 Patient has been chronically ill with recurrent respiratory infections and MDRO. Her quality of life has been declining over the last year with dysphagia and recurrent aspiration ultimately resulting in trach/PEG. Her prognosis is poor. She defers to her son for much of medical decision making and ultimately goals have been fairly aggressive. She would be appropriate for hospice care if that was in keeping with her goals. Palliative care is following.
[2018-05-29] MEDS: Azithromycin Inj 250 MG in Sodium Chlor 0.9% Inj 250 ML IV.SIG SCH ×2 (16:07→18:23)
--- NOTE | 2018-05-29 16:29 | P.PNPAL ---
Reason for Visit Reason for visit: a. To assist with evaluation and management of symptoms including: dyspnea, pain, debility, anxiety. b. To assist medical decision maker(s) with: better understanding of current medical conditions; weighing benefits/burdens of medical treatment options; making medical treatment decisions. Subjective Subjective/Interval History: Call from nurseNatali to report patient is going to be transferred to ICU for shortness of breath, pulmonary edema. Patient has told nursing staff that she does not want to go back on mechanical ventilation or have cardiac resuscitation. I was asked to see the patient to further clarify goals of medical treatment. Patient is seen and examined in room with nurses Natali and Gee at bedside. [place] valve in place oxygen via trach collar. She is able to speak clearly. She reports mild shortness of breath. She reports pain in her right chest that is new. She rates her pain 10/10 during my visit. She agrees to hold pain medication until after we can facilitate a conversation with her and her son regarding goals of medical treatment. Patient is awake and alert oriented. She has good insight to her current medical problems, is able to verbalize that she has spent the past 3 months in the hospital. She indicates that she still has infection that is being treated. She understands that her lungs are "filling up with fluid." She also understands that she is going to be transferred to intensive care. She appears capacitated to make her own healthcare decisions. She also indicates that her son, Alireza is her medical power of corporate associate attorney. I asked her if I could call him because the medical team spoke with him earlier today and he desired continued aggressive care including mechanical ventilation and cardiac resuscitation. I explained that I would call him to provide medical update and then come back and see if I could facilitate phone conversation between the patient and her son. She is in agreement and verbalizes appreciation. T-max 101. Tachycardic rate 100948. BP 98/52. Oxygen saturation 95% on oxygen to trach collar. WBC 3.4, hemoglobin 10.8, hematocrit 31.8, platelet count decreasing over the past few days currently 78. Creatinine 1.51. Total protein 5.2. Urine culture 05/25/18 multidrug-resistant pseudomonas aeruginosa. 05/22/18 sputum culture multidrug-resistant pseudomonas aeruginosa. 05/25/18 blood cultures no growth to date. Chest x-ray diffuse bilateral patchy airspace disease likely pulmonary edema. EKG-sinus tachycardia. Discussed with nursing staff, Dr. Jayden Canchola, ID and Dr. Lopez. Family/Friend Interactions: Spoke with son Alireza via telephone following my initial conversation and physical exam with patient. He indicates that he has spoken with the hospitalist previously today. Medical update provided. Briefly reviewed my conversation with his mother which she indicated she did not want to be placed back on mechanical ventilation and did not want cardiac resuscitation. I asked if he would like me to facilitate conversation between him and the patient as he had indicated that he had spoken with his mother on Saturday this week and she indicated she desired continued aggressive care including mechanical ventilation at that time. Conversation with patient and her son Alireza via telephone in the patient's room. Also present to the patient's brother, and daughter. During this conversation the patient was able to verbalize to her son that she did not want mechanical ventilation, cardiac resuscitation or tracheostomy replacement. While Alireza did not completely agree with her decision, he verbalizes wanting to honor her wishes and agrees. Lengthy conversation regarding options moving forward. In conclusion, patient and her son desire continued aggressive care short of NO CODE or tracheostomy replacement. Patient and Alireza would like PICC line placement understanding risks of infection as in her son's words " this is a palliative care issue." He feels that the patient has had numerous IV sticks and blood draws that have caused her significant pain and distress. Patient agrees that she would like a PICC line as well. Patient and her son do not want medications for comfort withheld as her primary concern is comfort, she does not want to suffer, does not want to feel pain or shortness of breath. We agreed to continue current medications at this time, I advised that we will contact Alireza if any adjustments in medications are recommended. We agreed to continue aggressive care, transfer to ICU and attempt to reverse any medical conditions that can be reversed with medications. He would like her in ICU for close monitoring. He is optimistic that she will be able to recover from this acute change. He also requests more definitive monitoring of her volume. Notified Dr. Lopez and Dr. Canchola of these conversations. Both are in agreement to proceed with PICC line placement, Dr. Canchola will place orders. Advance Directives Living Will: Copy in medical record Health Care Surrogate: Copy in medical record Advance Directives Date on File: 02/08/18 Health Care Surrogate Name and Number: Alireza Whitten, son/medical power of corporate associate attorney: [phone] Documented care wishes:: Patient directs that her healthcare providers and others involved in her care provide, withhold or withdraw treatment in accordance with her wish to not prolong life if she has an incurable and irreversible condition that will result in her within a relatively short time or if she becomes unconscious and to a reasonable degree of medical certainty will not regain consciousness were the likely results and burdens of treatment would outweigh the expected benefits. She requests also that treatment for alleviation of pain or discomfort be provided at all times, even if it hastens her . Additionally she indicates that in the event of severe and irreversible or terminal illness that she wishes for the priority on keeping her comfortable and no aggressive therapy or intervention be done unless expressly approved by Alireza Whitten her son. She does not wish to donate any organs after her . Significant change in goals:: Patient elects NO CODE (DNR/DNI), does not want to be placed on mechanical ventilation despite tracheostomy. She does not want tracheostomy changed. She desires medications for comfort. She desires continued medications to treat pulmonary edema, infections or other reversible conditions short of DNR/DNI. Objective Vital Signs: Vital Signs 05/28/18 17:47 05/28/18 20:00 05/29/18 00:00 Temperature 100 F H 98.1 F Pulse Rate 88 69 Respiratory Rate 18 Blood Pressure 129/62 Pulse Oximetry 94 L 93 L 05/29/18 08:00 05/29/18 10:01 05/29/18 10:05 Temperature 100.4 F H Pulse Rate 135 H Respiratory Rate 16 20 Blood Pressure 116/56 L Pulse Oximetry 94 L 94 L 05/29/18 12:00 05/29/18 12:21 Temperature Pulse Rate 140 H 133 H Respiratory Rate 24 24 Blood Pressure 100/50 L Pulse Oximetry 95 Intake & Output 05/28/18 05/29/18 05/29/18 18:59 06:59 18:59 Intake Total 2660 / 2660 2250 / 2250 1500 / 1500 Output Total 1300 / 1300 1200 / 1200 Balance 1360 / 1360 1050 / 1050 1500 / 1500 Weight 61 kg Intake: IV 1350 / 1350 1250 / 1250 1500 / 1500 NS Inj 1,000 ML @ 80 mls/hr IV. 1000 / 1000 1000 / 1000 1000 / 1000 CONT .[id number] [facility] Rx#:[id number] Azithromycin Inj 250 MG In NS 250 / 250 Inj 250 ML @ 250 mls/hr IV.SIG Q24H [facility] Rx#:[id number] Avycaz Inj 0.94 GM In NS Inj 50 50 / 50 50 / 50 50 / 50 ML @ 25 mls/hr IV.SIG Q12H [facility] Rx#:[id number] Cubicin Inj 500 MG In NS Inj 100 / 100 100 ML @ 200 mls/hr IV.SIG Q24H [facility]SON Rx#:[id number] Mycamine Inj 150 MG In NS Inj 100 / 100 100 / 100 100 ML @ 100 mls/hr IV.SIG Q24H [facility]SON Rx#:[id number] Flagyl 500 MG Inj 100 ML @ 100 200 / 200 100 / 100 100 / 100 mls/hr IV.SIG Q8H [facility]SON Rx#: [id number] Oral 150 / 150 Tube Feeding 660 / 660 1000 / 1000 Tube Irrigant 0 / 0 Water Bolus Amount 500 / 500 Other 0 / 0 Output: Urine 800 / 800 850 / 850 Stool 0 / 0 Urine/Stool Mix 0 / 0 Emesis 0 / 0 Gastric Drainage 500 / 500 350 / 350 Gastrojejunostomy Tube 500 / 500 350 / 350 Jejunostomy Tube 0 / 0 Other: # Voids 0 # Incontinent Voids 0 # Urine Diapers 0 Date of Last Bowel Movement 05/28/18 05/28/18 05/29/18 # Bowel Movements 1 1 # Incontinent Bowel Movements 1 Physical Exam: CONSTITUTIONAL/GENERAL: this is a pale, chronically ill appearing female with a tracheostomy TUBES/LINES: P.m. valve oxygen via trach collar, PIV right, GJ tube, dressing right great toe. SKIN: Pale. Febrile. Dressing on right great toe. No jaundice, rashes, or lesions. HEAD: Atraumatic. Normocephalic. EYES: Pupils equal and reactive. ENT: Hearing grossly normal. Nose without bleeding or purulent drainage. Oral mucosa dry. CARDIOVASCULAR: Tachycardic. RESPIRATORY/CHEST: Scattered rhonchi, diminished lung sounds bilateral bases. GASTROINTESTINAL: Abdomen soft, non-tender, nondistended. No guarding. GJ tube, G-tube to gravity with bilious output, tube feeding through J-tube. MUSCULOSKELETAL: Extremities without clubbing, cyanosis. Trace pedal edema. NEUROLOGICAL: Awake and alert. Motor and sensory grossly within normal limits. Follows commands. Cognitively sharp. Moves all extremities. PSYCHIATRIC: Calm, conversing. Diagnostic Tests Laboratory: Laboratory Results - last 72 hr 05/25/18 05/28/18 05/29/18 11:45 05:44 10:50 WBC 3.3 L 3.4 L RBC 3.47 L 3.58 L Hgb 10.5 L 10.8 L Hct 30.2 L 31.8 L MCV 87.1 89.0 MCH 30.2 30.2 MCHC 34.7 34.0 RDW 14.9 15.0 Plt Count 82 L 78 L MPV 10.2 10.1 Prelim Diff (Auto) Manual diff required WBC Differential Manual diff final Seg Neuts % (Manual) 66 Band Neuts % (Manual) 7 H Lymphocytes % (Manual) 15 Monocytes % (Manual) 7 Eosinophils % (Manual) 2 Promyelocytes % (Man) 3 H Abs Neuts (Manual) 2.5 Differential Comment . Platelet Estimate Low L Platelet Morphology Normal Ovalocytes 1+ H [place] Cells 2+ H Keratocytes Occ H Puncture Site Patient Temperature O2 Saturation ABG pH ABG pCO2 ABG pO2 ABG HCO3 ABG O2 Content ABG Base Excess ABG Methemoglobin Terrell Test Hemoglobin Carboxyhemoglobin O2 Delivery Device Liter Flow Inspired O2 Critical Value Sodium Potassium Chloride Carbon Dioxide Anion Gap BUN Creatinine Estimated GFR Random Glucose Calcium Prot Corrected Calcium Troponin I Total Protein Rout Panel Path Interp 05/29/18 05/29/18 10:50 14:31 WBC RBC Hgb Hct MCV MCH MCHC RDW Plt Count MPV Prelim Diff (Auto) WBC Differential Seg Neuts % (Manual) Band Neuts % (Manual) Lymphocytes % (Manual) Monocytes % (Manual) Eosinophils % (Manual) Promyelocytes % (Man) Abs Neuts (Manual) Differential Comment Platelet Estimate Platelet Morphology Ovalocytes [place] Cells Keratocytes Puncture Site Left radial Patient Temperature 98.6 O2 Saturation 92 ABG pH 7.44 H ABG pCO2 30 L ABG pO2 69 ABG HCO3 20 L ABG O2 Content 13.4 ABG Base Excess -3.8 L ABG Methemoglobin 1.5 Terrell Test Present Hemoglobin 10.3 L Carboxyhemoglobin 1.2 O2 Delivery Device 60 Liter Flow 8.00 Inspired O2 60 Critical Value No Sodium 141 Potassium 3.9 Chloride 106 Carbon Dioxide 20.3 L Anion Gap 15 BUN 35 H Creatinine 1.15 H Estimated GFR 46 L Random Glucose 105 Calcium 6.9 L* Prot Corrected Calcium 7.9 L Troponin I 0.03 Total Protein 5.2 L D Rout Panel Path Interp Result Diagrams: 05/29/18 10:50 05/29/18 10:50 Microbiology: Microbiology 05/25/18 11:52 Aerobic Blood Culture - Preliminary Blood - Peripheral No growth in 4 days Anaerobic Blood Culture - Preliminary No growth in 4 days 05/25/18 11:59 Aerobic Blood Culture - Preliminary Blood - Peripheral No growth in 4 days Anaerobic Blood Culture - Preliminary No growth in 4 days 05/25/18 13:20 Urine Culture - Final Catheterized Urine Pseudomonas aeruginosa Multidrug Resistant 05/22/18 18:05 Aerobic Blood Culture - Final Blood - Peripheral No growth in 5 days Anaerobic Blood Culture - Final No growth in 5 days 05/22/18 18:00 Aerobic Blood Culture - Final Blood - Peripheral No growth in 5 days Anaerobic Blood Culture - Final No growth in 5 days Imaging: Abdomen/Bladder Ultrasound 05/06/18 00:00 CONCLUSION: 1. Increased renal echogenicity characteristic of medical renal disease. Small cyst right kidney. Dependent debris in the bladder. Tube Check 05/20/18 00:00 CONCLUSION: 1. Uncomplicated tube injection as above. The gastrojejunostomy tube is in good position. If there is concern for duodenal stricture resulting in a functional obstruction consideration could be made to the administration of barium either orally or through the gastric lumen of the tube to assess for any obstruction. Thin iodinated contrast would be limited in trying to assess this. Upper GI Series 05/21/18 00:00 CONCLUSION: No evidence of gastric outlet or duodenal obstruction. Abdomen/Pelvis CT 05/22/18 00:00 CONCLUSION: 1. Diverticulosis without perceptible diverticulitis or other acute inflammatory changes. 2. The gastrojejunostomy tube appears appropriately positioned. No perceptible associated acute complication. 3. There are scattered tiny nonobstructing stones of both kidneys and a small cyst on the right. 4. Small sliding-type hiatal hernia again seen. Chest CT 05/22/18 16:12 CONCLUSION: 1. Moderate left pleural effusion with atelectasis of the left lower lobe. 2. Mild right base atelectasis, improved compared to prior CT. 3. Right upper lobe pulmonary nodules are stable but the larger one remains concerning for primary bronchogenic carcinoma. Chest Ultrasound 05/23/18 00:00 CONCLUSION: 1. Lastly 360 cc of pleural effusion on the left. This does not appear loculated or complex. Site was marked Thoracentesis Ultrasound 05/23/18 00:00 CONCLUSION: Uncomplicated ultrasound-guided left chest thoracentesis as above. Extremity Arterial Study 05/24/18 00:00 CONCLUSION: 1. Severe reduction of the ABIs bilaterally. Abdomen X-Ray 05/26/18 00:00 CONCLUSION: 1. GJ tube appears to be in appropriate position with distal end of the jejunal feeding tube in the left upper quadrant. 2. Persistent pleural-parenchymal opacity at the left lung base. Chest CTA 05/26/18 00:00 CONCLUSION: 1. No evidence for pulmonary embolism. 2. Bibasilar consolidation. 3. Prominent nodule in the right upper lobe again seen measuring 13 mm concerning for malignancy. 4. Patchy opacities in the lingula and left lower lobe likely infectious. Chest X-Ray 05/29/18 10:00 CONCLUSION: Diffuse bilateral patchy airspace disease likely pulmonary edema. 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 Patient now has a tracheostomy. (4) Debility 0-10 Scale: Unable to quantify Pertinent Non-Medical Issues: Psychosocial: Patient is originally from [place]. She has 4 brothers and 2 sisters. She moved to [place] approximately 40 years ago. Patient was for 18 years and then . She and her had 3 sons (Ailreza, Sagar and Cameron). Alireza is a physicians unit assistant and lives in [place]. Adalid and Cameron live in [place]. Per patient, Cameron was born with "autism" and live in a senior care Spiritual: [employer]ism Legal: Pt's son Alireza is medical POA. Ethical issues impacting care: none Important Contacts: medical POA son Alireza Whitten , cell [phone] Prognosis: This is a 73 yo lady with hx laryngeal ca diagnosed 2015 s/p chemo and radiation who [facility] and respiratory distress while in [facility]. She initially presented in January with weakness, dysphagia, weight loss, anemia. Chest CT showing enlarging spiculated nodule, 2 additional right lung nodules. She has since had tracheostomy, GJ, and numerous complications, including PNA, need for GJ replacement. She is likely to continue to decline and encounter complications and setbacks as she deconditions. Unlikely she would tolerate invasive procedure such as long bx, or tolerate the treatment necessary to address a malignancy if that is what her lung nodules are. Code Status: No Code DNR (DNR/DNI does NOT want to go back on mech vent.) Plan: - LEGAL DECISON MAKER - Pt is capacitated to make medical decisions. Should she become incapacitated, she has designated her son Alireza as medical POA. - NO CODE - DNR/DNI does NOT want to go back on mech vent. - GOALS - Goals aggressive short of NO CODE, she does not want tracheostomy changed out. She and her son adamant a PICC line be placed understanding the risks as this is a Palliative concern given increased amount of IV sticks for meds and lab draws. Dr. Lopez and Dr. Canchola agree. Son is requesting more definitive monitoring of her volume. They do not want comfort meds withheld for hypotension or other reasons. - SYMPTOMS - * pain - risk for pain. multifactorial, coccygeal ulcer, mult lines and catheters, tubes. c/o LLQ pain when she coughs and g tube site pain. site is erythematous. IR consult pending, possible replacement tube. recommend premedicating prior to going to IR as pt c/o of pain during and after last procedure. consider CT scan for LLQ pain. Has [place] 5/325 1 tab PRN q4h and 2 tab PRN q4h for mild and moderate to severe pain, respectively. Also has PRN roxanol 5mg q4h for breakthrough pain. Continue current meds, call son prior to making any medication adjustments. * dyspnea - hx laryngeal ca, has trach, now with PNA. BCX pending. denies feeling SOB today. on RA, has PM valve. has PRN and scheduled duonebs, PRN and nelson levsin. ID was following, pt has finished abx. has PRN meds for anxiety and pain. * depression/anxiety - multifactorial. pt mildly anxious . on lexapro, wellbutrin. has clonazepam 0.5 mg q8h PRN. Has PRN temazepam for insomnia. * debility- multifactorial. 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 respiratory status unlikely to allow for aggressive therapy and rehab. weak. PT following. no further recs. - d/w KIRSTEN Boudreaux, Dr. Lopez, Dr. Tamra Canchola, patient and son, Waldemar Whitten. - Palliative care will continue to follow during hospital course as condition evolves, to assist patient/decision-maker with understanding of medical conditions, weighing benefits/burdens of treatment options, for clarification of goals of treatment. Additionally will assist with any symptoms of palliative concern Attestation Attestation: To help prompt me to consider important information that might be impacting today's encounter and assessment, information from prior notes written by myself or my colleagues may have been "brought forward" into today's note. My signature on this note, however, is an attestation that I personally performed the exam, history, and/or decision-making noted today, and, unless otherwise indicated, the interactions with patient, family, and staff as well as the review of records all occurred today. I also attest that the listed assessment and stated plan reflect my best clinical judgment today based on the combination of historical information, prior notes, and today's exam/ interactions. When time spent is documented, it refers only to time spent today by the signer, or if indicated, combined time spent today by collaborating physician/nurse practitioner.
--- NOTE | 2018-05-29 17:47 | P.PN ---
Subjective Interval history: She was SOB today and is having a low O2 sat. On a T bar at 70 % now. Given lasix since CXR showed pulm edema Physical Exam Vital signs: Vital Signs 05/28/18 17:47 05/28/18 20:00 05/29/18 00:00 Temperature 100 F H 98.1 F Pulse Rate 88 69 Respiratory Rate 18 Blood Pressure 129/62 Pulse Oximetry 94 L 93 L 05/29/18 08:00 05/29/18 10:01 05/29/18 10:05 Temperature 100.4 F H Pulse Rate 135 H Respiratory Rate 16 20 Blood Pressure 116/56 L Pulse Oximetry 94 L 94 L 05/29/18 12:00 05/29/18 12:21 05/29/18 16:00 Temperature 101 F H Pulse Rate 140 H 133 H 120 H Respiratory Rate 24 24 18 Blood Pressure 100/50 L 98/52 L Pulse Oximetry 95 95 05/29/18 16:48 Temperature Pulse Rate Respiratory Rate 18 Blood Pressure Pulse Oximetry Intake & Output 05/28/18 05/29/18 05/29/18 18:59 06:59 18:59 Intake Total 2660 / 2660 2250 / 2250 2760 / 2760 Output Total 1300 / 1300 1200 / 1200 2100 / 2100 Balance 1360 / 1360 1050 / 1050 660 / 660 Weight 61 kg Intake: IV 1350 / 1350 1250 / 1250 1500 / 1500 NS Inj 1,000 ML @ 80 mls/hr IV. 1000 / 1000 1000 / 1000 1000 / 1000 CONT .[id number] ANN Rx#:[id number] Azithromycin Inj 250 MG In NS 250 / 250 Inj 250 ML @ 250 mls/hr IV.SIG Q24H ANN Rx#:[id number] Avycaz Inj 0.94 GM In NS Inj 50 50 / 50 50 / 50 50 / 50 ML @ 25 mls/hr IV.SIG Q12H ANN Rx#:[id number] Cubicin Inj 500 MG In NS Inj 100 / 100 100 ML @ 200 mls/hr IV.SIG Q24H ANN Rx#:[id number] Mycamine Inj 150 MG In NS Inj 100 / 100 100 / 100 100 ML @ 100 mls/hr IV.SIG Q24H ANN Rx#:[id number] Flagyl 500 MG Inj 100 ML @ 100 200 / 200 100 / 100 100 / 100 mls/hr IV.SIG Q8H [facility] Rx#: [id number] Oral 150 / 150 100 / 100 Tube Feeding 660 / 660 1000 / 1000 660 / 660 Tube Irrigant 0 / 0 Water Bolus Amount 500 / 500 500 / 500 Other 0 / 0 Output: Urine 800 / 800 850 / 850 Stool 0 / 0 Urine/Stool Mix 0 / 0 Emesis 0 / 0 Urine Amount (Catheter) 1500 / 1500 Indwelling Urethral Catheter 1500 / 1500 Gastric Drainage 500 / 500 350 / 350 600 / 600 Gastrojejunostomy Tube 500 / 500 350 / 350 600 / 600 Jejunostomy Tube 0 / 0 Other: # Voids 0 # Incontinent Voids 0 # Urine Diapers 0 Date of Last Bowel Movement 05/28/18 05/28/18 05/29/18 # Bowel Movements 1 1 # Incontinent Bowel Movements 1 Narrative: Patient appears in mild distress. Trach in place. GENERAL: SKIN: Warm and dry. HEAD: Normocephalic. EYES: No scleral icterus. No injection or drainage. NECK: Supple, trachea midline. No JVD or lymphadenopathy. CARDIOVASCULAR: Irregular rate and rhythm and Tachy. RESPIRATORY: Breath sounds equal bilaterally. No accessory muscle use. GASTROINTESTINAL: Abdomen soft, non-tender, nondistended. MUSCULOSKELETAL: No cyanosis, or edema. BACK: Nontender without obvious deformity. No CVA tenderness. Abdomen soft, GJ tube in place Awake, follows commands. - Urinary Catheter Management Indwelling Urethral Catheter Cath placed during this visit: yes Reason for continuing: Acute urinary retention Insertion date: 05/25/18 Insertion time: 14:00 Results - Labs CBC & Chem 7: 05/29/18 10:50 05/29/18 10:50 Laboratory Results - last 24 hr 05/29/18 05/29/18 05/29/18 10:50 10:50 14:31 WBC 3.4 L RBC 3.58 L Hgb 10.8 L Hct 31.8 L MCV 89.0 MCH 30.2 MCHC 34.0 RDW 15.0 Plt Count 78 L MPV 10.1 Puncture Site Left radial Patient Temperature 98.6 O2 Saturation 92 ABG pH 7.44 H ABG pCO2 30 L ABG pO2 69 ABG HCO3 20 L ABG O2 Content 13.4 ABG Base Excess -3.8 L ABG Methemoglobin 1.5 Terrell Test Present Hemoglobin 10.3 L Carboxyhemoglobin 1.2 O2 Delivery Device 60 Liter Flow 8.00 Inspired O2 60 Critical Value No Sodium 141 Potassium 3.9 Chloride 106 Carbon Dioxide 20.3 L Anion Gap 15 BUN 35 H Creatinine 1.15 H Estimated GFR 46 L Random Glucose 105 Calcium 6.9 L* Prot Corrected Calcium 7.9 L Troponin I 0.03 Total Protein 5.2 L D Microbiology 05/25/18 11:52 Blood - Peripheral Aerobic Blood Culture - Preliminary No growth in 4 days 05/25/18 11:52 Blood - Peripheral Anaerobic Blood Culture - Preliminary No growth in 4 days 05/25/18 11:59 Blood - Peripheral Aerobic Blood Culture - Preliminary No growth in 4 days 05/25/18 11:59 Blood - Peripheral Anaerobic Blood Culture - Preliminary No growth in 4 days - Imaging Impressions Chest X-Ray 05/29/18 10:00 CONCLUSION: Diffuse bilateral patchy airspace disease likely pulmonary edema. 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 Cont T Collar at 60 % and wean to keep sat >92 2. Cont nebs with albuterol qid. PRN 3. PM valve daytime PRN to talk 4. Cont Levsin .125 mg qid prn. 5. Tube feeds at 55 CC. 6. BIPAP 12/ 5 CM at HS and Change trach to Cuffed #6 shiley 7. Up in Chair daily 8. Lasix 20 Mg daily
--- NOTE | 2018-05-29 18:19 | P.PNID ---
Subjective Remarks: pt deteriorated again today + SOB, on O2 mask now CXR sowed pulmonary edema + low grade temps up to 100.5 Antibiotics: azith avycaz micafungin flagyl Past Medical History: lung ca Allergies/Adverse Reactions: Allergies epinephrine Allergy (Severe, Verified 02/21/18 08:40) TACHYCARDIA penicillin G Allergy (Severe, Verified 02/21/18 08:40) Hives peanut Allergy (Intermediate, Verified 02/21/18 08:40) ANAPHYLAXIS legumes Allergy (Unknown, Verified 03/06/18 21:48) Anaphylaxis UNKNOWN soy Allergy (Verified 03/06/18 21:45) Rash UNKNOWN Objective Vital Signs 05/28/18 20:00 05/29/18 00:00 05/29/18 08:00 Temperature 100 F H 98.1 F 100.4 F H Pulse Rate 88 69 135 H Respiratory Rate 18 16 Blood Pressure 129/62 116/56 L Pulse Oximetry 93 L 94 L 05/29/18 10:01 05/29/18 10:05 05/29/18 12:00 Temperature Pulse Rate 140 H Respiratory Rate 20 24 Blood Pressure 100/50 L Pulse Oximetry 94 L 95 05/29/18 12:21 05/29/18 16:00 05/29/18 16:48 Temperature 101 F H Pulse Rate 133 H 120 H Respiratory Rate 24 18 18 Blood Pressure 98/52 L Pulse Oximetry 95 Intake & Output 05/28/18 05/29/18 05/29/18 18:59 06:59 18:59 Intake Total 2660 / 2660 2250 / 2250 2760 / 2760 Output Total 1300 / 1300 1200 / 1200 2100 / 2100 Balance 1360 / 1360 1050 / 1050 660 / 660 Weight 61 kg Intake: IV 1350 / 1350 1250 / 1250 1500 / 1500 NS Inj 1,000 ML @ 80 mls/hr IV. 1000 / 1000 1000 / 1000 1000 / 1000 CONT .[id number] ANN Rx#:[id number] Azithromycin Inj 250 MG In NS 250 / 250 Inj 250 ML @ 250 mls/hr IV.SIG Q24H [facility] Rx#:[id number] Avycaz Inj 0.94 GM In NS Inj 50 50 / 50 50 / 50 50 / 50 ML @ 25 mls/hr IV.SIG Q12H [facility] Rx#:[id number] Cubicin Inj 500 MG In NS Inj 100 / 100 100 ML @ 200 mls/hr IV.SIG Q24H [facility] Rx#:[id number] Mycamine Inj 150 MG In NS Inj 100 / 100 100 / 100 100 ML @ 100 mls/hr IV.SIG Q24H [facility] Rx#:[id number] Flagyl 500 MG Inj 100 ML @ 100 200 / 200 100 / 100 100 / 100 mls/hr IV.SIG Q8H [facility] Rx#: [id number] Oral 150 / 150 100 / 100 Tube Feeding 660 / 660 1000 / 1000 660 / 660 Tube Irrigant 0 / 0 Water Bolus Amount 500 / 500 500 / 500 Other 0 / 0 Output: Urine 800 / 800 850 / 850 Stool 0 / 0 Urine/Stool Mix 0 / 0 Emesis 0 / 0 Urine Amount (Catheter) 1500 / 1500 Indwelling Urethral Catheter 1500 / 1500 Gastric Drainage 500 / 500 350 / 350 600 / 600 Gastrojejunostomy Tube 500 / 500 350 / 350 600 / 600 Jejunostomy Tube 0 / 0 Other: # Voids 0 # Incontinent Voids 0 # Urine Diapers 0 Date of Last Bowel Movement 05/28/18 05/28/18 05/29/18 # Bowel Movements 1 1 # Incontinent Bowel Movements 1 05/25/18 11:52 Blood - Peripheral Aerobic Blood Culture - Preliminary No growth in 4 days 05/25/18 11:52 Blood - Peripheral Anaerobic Blood Culture - Preliminary No growth in 4 days 05/25/18 11:59 Blood - Peripheral Aerobic Blood Culture - Preliminary No growth in 4 days 05/25/18 11:59 Blood - Peripheral Anaerobic Blood Culture - Preliminary No growth in 4 days 05/25/18 13:20 Catheterized Urine Urine Culture - Final Pseudomonas aeruginosa Multidrug Resistant 05/22/18 18:05 Blood - Peripheral Aerobic Blood Culture - Final No growth in 5 days 05/22/18 18:05 Blood - Peripheral Anaerobic Blood Culture - Final No growth in 5 days 05/22/18 18:00 Blood - Peripheral Aerobic Blood Culture - Final No growth in 5 days 05/22/18 18:00 Blood - Peripheral Anaerobic Blood Culture - Final No growth in 5 days Lab - Hematology Results 05/28/18 05/29/18 05:44 10:50 WBC 3.3 L 3.4 L RBC 3.47 L 3.58 L Hgb 10.5 L 10.8 L Hct 30.2 L 31.8 L MCV 87.1 89.0 MCH 30.2 30.2 MCHC 34.7 34.0 RDW 14.9 15.0 Plt Count 82 L 78 L MPV 10.2 10.1 Prelim Diff (Auto) Manual diff required WBC Differential Manual diff final Seg Neuts % (Manual) 66 Band Neuts % (Manual) 7 H Lymphocytes % (Manual) 15 Monocytes % (Manual) 7 Eosinophils % (Manual) 2 Promyelocytes % (Man) 3 H Abs Neuts (Manual) 2.5 Differential Comment . Platelet Estimate Low L Platelet Morphology Normal Ovalocytes 1+ H Zion Cells 2+ H Keratocytes Occ H Lab - Chemistry Results 05/29/18 10:50 Sodium 141 Potassium 3.9 Chloride 106 Carbon Dioxide 20.3 L Anion Gap 15 BUN 35 H Creatinine 1.15 H Estimated GFR 46 L Random Glucose 105 Calcium 6.9 L* Prot Corrected Calcium 7.9 L Troponin I 0.03 Total Protein 5.2 L D Imaging: ITS Impressions Abdomen/Bladder Ultrasound 05/06/18 00:00 CONCLUSION: 1. Increased renal echogenicity characteristic of medical renal disease. Small cyst right kidney. Dependent debris in the bladder. Tube Check 05/20/18 00:00 CONCLUSION: 1. Uncomplicated tube injection as above. The gastrojejunostomy tube is in good position. If there is concern for duodenal stricture resulting in a functional obstruction consideration could be made to the administration of barium either orally or through the gastric lumen of the tube to assess for any obstruction. Thin iodinated contrast would be limited in trying to assess this. Upper GI Series 05/21/18 00:00 CONCLUSION: No evidence of gastric outlet or duodenal obstruction. Abdomen/Pelvis CT 05/22/18 00:00 CONCLUSION: 1. Diverticulosis without perceptible diverticulitis or other acute inflammatory changes. 2. The gastrojejunostomy tube appears appropriately positioned. No perceptible associated acute complication. 3. There are scattered tiny nonobstructing stones of both kidneys and a small cyst on the right. 4. Small sliding-type hiatal hernia again seen. Chest CT 05/22/18 16:12 CONCLUSION: 1. Moderate left pleural effusion with atelectasis of the left lower lobe. 2. Mild right base atelectasis, improved compared to prior CT. 3. Right upper lobe pulmonary nodules are stable but the larger one remains concerning for primary bronchogenic carcinoma. Chest Ultrasound 05/23/18 00:00 CONCLUSION: 1. Lastly 360 cc of pleural effusion on the left. This does not appear loculated or complex. Site was marked Thoracentesis Ultrasound 05/23/18 00:00 CONCLUSION: Uncomplicated ultrasound-guided left chest thoracentesis as above. Extremity Arterial Study 05/24/18 00:00 CONCLUSION: 1. Severe reduction of the ABIs bilaterally. Abdomen X-Ray 05/26/18 00:00 CONCLUSION: 1. GJ tube appears to be in appropriate position with distal end of the jejunal feeding tube in the left upper quadrant. 2. Persistent pleural-parenchymal opacity at the left lung base. Chest CTA 05/26/18 00:00 CONCLUSION: 1. No evidence for pulmonary embolism. 2. Bibasilar consolidation. 3. Prominent nodule in the right upper lobe again seen measuring 13 mm concerning for malignancy. 4. Patchy opacities in the lingula and left lower lobe likely infectious. Chest X-Ray 05/29/18 10:00 CONCLUSION: Diffuse bilateral patchy airspace disease likely pulmonary edema. Physical Exam: GENERAL: NAD looks sick today, lehtargic thin chronically ill apperaing SKIN: Warm and dry. NO rash HEAD: Atraumatic. Normocephalic. EYES: Pupils equal and round. No scleral icterus. No injection or drainage. ENT: No nasal bleeding or discharge. Mucous membranes pink and moist. NECK: Trach in place, site OK CARDIOVASCULAR: Regular rate and rhythm. + murmur, holosystolic RESPIRATORY: No accessory muscle use. Diffuse b/l rhonchi to auscultation. Breath sounds equal bilaterally. GASTROINTESTINAL: Abdomen soft, mildly tender in LLQ and mildly distended w/o guarding and rebound PEG in place with some serosangious drainage + mild erythema around, no drainage MUSCULOSKELETAL: Extremities without clubbing, cyanosis, + some edema. No obvious deformities. NEUROLOGICAL: Lethargic but arousable asnd able to talk coherently . No obvious cranial nerve deficits. Motor grossly within normal limits. Five out of 5 muscle strength in the arms and legs. 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 PNA BLL, MDRO PSAE, Acinetobacter H&N cancer sp trach, PEG Diarrhea, neg for C.diff as of 05/25 Mild PEG infection vs irritation growing mixed andrew which is c/w contaminantion, including VRE New sepsis likley source pulmonary vs GI, less likely \ Colonised with multiple MDROs, including PSAE, VRE PEG site does not appear to be the source of infection and already looks better with topical bacitracin UTI, MDRO PDSAE Pt is critically ill, prognosis is poor agree with palliative care plan change Avycaz to vabomere dc Daptomycin dc Flagyl dc Micafungin repeat UA/C+S repeat Sputum clx PICC line cont local care of PEG site blood cultures x 2 BNP lori RN dw pallilative care Liz Hilario
[2018-05-29 20:09] LABS: Bacteria,Urine Rare /hpf; Bilirubin,Urine Negative (Negative); Clarity,Urine Hazy (Clear); Color,Urine Yellow (Yellw/Straw); Glucose,Urine (UA) Negative (Negative); Leukocyte Esterase,Urine Trace (Negative); Mucus,Urine Few /lpf (Occasional); Nitrite,Urine Negative (Negative); Specific Gravity,Urine 1.005 (1.002-1.035)
[2018-05-29] MEDS: SODIUM CHLOR 0.9% IV.SIG SCH (20:59)
[2018-05-29] MEDS: MEROPENEM VABORBACTAM IV.SIG SCH (20:59)
[2018-05-30] MEDS: Enoxaparin Inj 60 MG/0.6 ML Syringe SQ SCH (00:15)
[2018-05-30] MEDS: MEROPENEM VABORBACTAM IV.SIG SCH ×3 (04:25→21:45)
[2018-05-30] MEDS: SODIUM CHLOR 0.9% IV.SIG SCH ×3 (04:25→21:45)
[2018-05-30] MEDS: Hyoscyamine Liq Drops 0.125 MG/ML 15 ML Bottle SL SCH ×4 (04:25→21:45)
[2018-05-30 04:26] LABS: Hematocrit 27.9 % (35.0-46.0); Hemoglobin 9.4 gm/dL (11.6-15.3); Mean Corpuscular HGB Conc 33.7 % (32.0-36.0); Mean Corpuscular Hemoglobin 29.8 pg (27.0-34.0); Mean Corpuscular Volume 88.7 fL (80.0-100.0); Mean Platelet Volume 10.8 fL (7.0-11.0); Platelet Count 63 th/mm3 (150-450); Red Blood Count 3.15 mil/mm3 (4.00-5.30); Red Cell Distribution Width 15.2 % (11.6-17.2)
[2018-05-30 05:04] LABS: Albumin 1.6 g/dL (3.4-5.0); Calcium 6.6 mg/dL (8.5-10.1); Carbon Dioxide 24.5 meq/L (21.0-32.0); Magnesium 1.5 mg/dL (1.5-2.5); Phosphorus 3.7 mg/dL (2.5-4.9); Potassium 3.8 meq/L (3.5-5.1); Total Protein 4.9 g/dL (6.4-8.2)
[2018-05-30] MEDS: Levothyroxine 150 MCG Tablet J-TUBE SCH (05:48)
[2018-05-30 06:12] LABS: Burr Cells 1+; Eosinophils 4 % (0-4); Lymphocytes 29 % (9-44); Monocytes 2 % (0-8); Ovalocytes 1+
--- NOTE | 2018-05-30 07:43 | P.PNCC ---
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 The rapid response was called and the patient was transferred to ICU where she was placed on 60% oxygenation via trach collar. The critical care medicine was consulted for an admission. Subjective: [facility] reconsulted 05/23 due to hypotension. She has been on the hospitalist service, followed by multiple consulting services. She is s/p trach with recurrent respiratory infections with MDRO managed by ID. She has significant respiratory secretions with suctioning, these are reportedly increased. She is afebrile, persistent pancytopenia. She has a G/J tube, G tube is kept to gravity with high output, ~1-2 L of bilious drainage per day. She has been followed by gastroenterology, on pharmacotherapy for gastric motility. Upper GI 05/21 showed no evidence of obstruction. Today she developed hypotension with SBP 80/40. BP ultimately normalized after [address] chest/ abd pelvis was obtained. G/J tube is in satisfactory position and there are no acute intra- abdominal findings. CT chest does demonstrate a moderate left pleural effusion with left lower lobe atelectasis. She has been having loose stools. Repeat C. difficile PCR pending 05/29 [facility] Reconsult for SOB, pulm edema. Patient i s73 yo with hx chronic resp failure s/p trach and PEG tube placement currently on TP's with 60% FIO2. CXR today showed pulm edema given Lasix 40mg x1 with good response in UOP. Awake and alert. Tachycardic, T:100.4. 05/30 No events overnight remains on TP's with 40% FIO2. Patient was made no code DNR yesterday. T:99.8 this morning. Objective Vital Signs / I&O: Vital Signs 05/29/18 08:00 05/29/18 10:01 05/29/18 10:05 Temperature 100.4 F H Pulse Rate 135 H Respiratory Rate 16 20 Blood Pressure 116/56 L Pulse Oximetry 94 L 94 L 05/29/18 11:00 05/29/18 12:00 05/29/18 12:21 Temperature Pulse Rate 140 H 133 H Respiratory Rate 24 24 Blood Pressure 100/50 L Pulse Oximetry 97 95 05/29/18 16:00 05/29/18 16:48 05/29/18 19:33 Temperature 101 F H Pulse Rate 120 H 88 Respiratory Rate 18 18 26 H Blood Pressure 98/52 L Pulse Oximetry 95 05/29/18 19:38 05/29/18 20:00 05/29/18 22:00 Temperature 98.2 F Pulse Rate 92 H 91 H Respiratory Rate Blood Pressure 96/55 L Pulse Oximetry 99 92 L 05/29/18 23:09 05/30/18 00:00 05/30/18 02:00 Temperature Pulse Rate 90 91 H 80 Respiratory Rate 20 23 Blood Pressure 91/50 L Pulse Oximetry 98 05/30/18 03:38 05/30/18 03:53 05/30/18 04:00 Temperature Pulse Rate 90 88 90 Respiratory Rate 30 H 20 33 H Blood Pressure 124/58 L Pulse Oximetry 97 100 05/30/18 05:00 05/30/18 06:00 Temperature 99.8 F H Pulse Rate 91 H 93 H Respiratory Rate 20 26 H Blood Pressure 96/49 L 91/49 L Pulse Oximetry 100 97 Intake & Output 05/29/18 05/30/18 05/30/18 18:59 06:59 18:59 Intake Total 2810 / 2810 1273 / 1273 Output Total 2600 / 2600 850 / 850 Balance 210 / 210 423 / 423 Weight 61 kg 62.7 kg Intake: IV 1500 / 1500 600 / 600 NS Inj 1,000 ML @ 80 mls/hr IV. 1000 / 1000 CONT .[id number] ANN Rx#:[id number] Azithromycin Inj 250 MG In NS 250 / 250 250 / 250 Inj 250 ML @ 250 mls/hr IV.SIG Q24H ANN Rx#:[id number] Avycaz Inj 0.94 GM In NS Inj 50 50 / 50 ML @ 25 mls/hr IV.SIG Q12H ANN Rx#:[id number] Cubicin Inj 500 MG In NS Inj 100 / 100 100 ML @ 200 mls/hr IV.SIG Q24H ANN Rx#:[id number] Vabomere Inj 2,000 MG In NS Inj 250 / 250 250 ML @ 83.333 mls/hr IV.SIG Q8H ANN Rx#:[id number] Flagyl 500 MG Inj 100 ML @ 100 100 / 100 100 / 100 mls/hr IV.SIG Q8H [facility] Rx#: [id number] Oral 150 / 150 Tube Feeding 660 / 660 593 / 593 Tube Irrigant 80 / 80 Water Bolus Amount 500 / 500 Output: Urine Amount (Catheter) 1850 / 0 850 / 850 Indwelling Urethral Catheter 1850 / 1850 850 / 850 Gastric Drainage 750 / 750 Gastrojejunostomy Tube 750 / 750 Other: Date of Last Bowel Movement 05/29/18 05/29/18 # Bowel Movements 2 Result Diagrams: 05/30/18 03:34 05/30/18 03:34 Other Results: Laboratory Results - last 12 hr 05/29/18 05/29/18 05/29/18 10:50 19:00 19:00 WBC RBC Hgb Hct MCV MCH MCHC RDW Plt Count MPV Prelim Diff (Auto) WBC Differential Seg Neuts % (Manual) Band Neuts % (Manual) Lymphocytes % (Manual) Monocytes % (Manual) Eosinophils % (Manual) Basophils % (Manual) Abs Neuts (Manual) Differential Comment Platelet Estimate Platelet Morphology Ovalocytes Zion Cells Sodium Potassium Chloride Carbon Dioxide Anion Gap BUN Creatinine Estimated GFR Random Glucose Calcium Prot Corrected Calcium Phosphorus Magnesium Total Bilirubin AST ALT Alkaline Phosphatase B-Natriuretic Peptide 565 H Total Protein Albumin Urine Color Yellow Urine Clarity Hazy H Urine pH 5.0 Ur Specific [place] 1.005 Urine Protein Negative Urine Glucose (UA) Negative Urine Ketones Negative Urine Occult Blood Negative Urine Nitrate Negative Urine Bilirubin Negative Urine Urobilinogen Less than 2 Ur Leukocyte Esterase Trace H Urine RBC 1 Urine WBC 1 Urine Bacteria Rare H Urine Mucus Few H Micro UA Comment Cath-culture ind Ur Microscopic Review Not Reportable Urine Culture Comments Cath-cult indicated Nasal Screen MRSA (PCR) Not detected 05/30/18 05/30/18 03:34 03:34 WBC 3.0 L RBC 3.15 L Hgb 9.4 L Hct 27.9 L MCV 88.7 MCH 29.8 MCHC 33.7 RDW 15.2 Plt Count 63 L MPV 10.8 Prelim Diff (Auto) Manual diff required WBC Differential Manual diff final Seg Neuts % (Manual) 54 Band Neuts % (Manual) 10 H Lymphocytes % (Manual) 29 Monocytes % (Manual) 2 Eosinophils % (Manual) 4 Basophils % (Manual) 1 Abs Neuts (Manual) 1.9 Differential Comment . Platelet Estimate Low L Platelet Morphology Enlarged H Ovalocytes 1+ H Zion Cells 1+ H Sodium 144 Potassium 3.8 Chloride 105 Carbon Dioxide 24.5 Anion Gap 15 BUN 43 H Creatinine 1.50 H Estimated GFR 34 L Random Glucose 123 H Calcium 6.6 L* Prot Corrected Calcium 7.7 L Phosphorus 3.7 Magnesium 1.5 Total Bilirubin 0.3 AST 14 L ALT 15 Alkaline Phosphatase 79 B-Natriuretic Peptide Total Protein 4.9 L Albumin 1.6 L Urine Color Urine Clarity Urine pH Ur Specific [place] Urine Protein Urine Glucose (UA) Urine Ketones Urine Occult Blood Urine Nitrate Urine Bilirubin Urine Urobilinogen Ur Leukocyte Esterase Urine RBC Urine WBC Urine Bacteria Urine Mucus Micro UA Comment Ur Microscopic Review Urine Culture Comments Nasal Screen MRSA (PCR) Imaging: Abdomen/Bladder Ultrasound 05/06/18 00:00 CONCLUSION: 1. Increased renal echogenicity characteristic of medical renal disease. Small cyst right kidney. Dependent debris in the bladder. Tube Check 05/20/18 00:00 CONCLUSION: 1. Uncomplicated tube injection as above. The gastrojejunostomy tube is in good position. If there is concern for duodenal stricture resulting in a functional obstruction consideration could be made to the administration of barium either orally or through the gastric lumen of the tube to assess for any obstruction. Thin iodinated contrast would be limited in trying to assess this. Upper GI Series 05/21/18 00:00 CONCLUSION: No evidence of gastric outlet or duodenal obstruction. Abdomen/Pelvis CT 05/22/18 00:00 CONCLUSION: 1. Diverticulosis without perceptible diverticulitis or other acute inflammatory changes. 2. The gastrojejunostomy tube appears appropriately positioned. No perceptible associated acute complication. 3. There are scattered tiny nonobstructing stones of both kidneys and a small cyst on the right. 4. Small sliding-type hiatal hernia again seen. Chest CT 05/22/18 16:12 CONCLUSION: 1. Moderate left pleural effusion with atelectasis of the left lower lobe. 2. Mild right base atelectasis, improved compared to prior CT. 3. Right upper lobe pulmonary nodules are stable but the larger one remains concerning for primary bronchogenic carcinoma. Chest Ultrasound 05/23/18 00:00 CONCLUSION: 1. Lastly 360 cc of pleural effusion on the left. This does not appear loculated or complex. Site was marked Thoracentesis Ultrasound 05/23/18 00:00 CONCLUSION: Uncomplicated ultrasound-guided left chest thoracentesis as above. Extremity Arterial Study 05/24/18 00:00 CONCLUSION: 1. Severe reduction of the ABIs bilaterally. Abdomen X-Ray 05/26/18 00:00 CONCLUSION: 1. GJ tube appears to be in appropriate position with distal end of the jejunal feeding tube in the left upper quadrant. 2. Persistent pleural-parenchymal opacity at the left lung base. Chest CTA 05/26/18 00:00 CONCLUSION: 1. No evidence for pulmonary embolism. 2. Bibasilar consolidation. 3. Prominent nodule in the right upper lobe again seen measuring 13 mm concerning for malignancy. 4. Patchy opacities in the lingula and left lower lobe likely infectious. Chest X-Ray 05/29/18 10:00 CONCLUSION: Diffuse bilateral patchy airspace disease likely pulmonary edema. Objective Remarks: GENERAL: Chronically ill appearing elderly female who is laying in [facility] bed on trach collar. SKIN: Warm and dry. HEAD: Atraumatic. Normocephalic. EYES: Pupils equal and round. No scleral icterus. No injection or drainage. ENT: No nasal bleeding or discharge. NECK: Trachea midline, 6 cuff less fenestrated trach in place. Moderate yellow secretions with suctioning. CARDIOVASCULAR:Tachycardic . No murmurs rubs or gallops. RESPIRATORY: Occasional rhonchi bilaterally, diminished bibasilar. No wheezes or rales. GASTROINTESTINAL: Abdomen soft, non-tender, nondistended. She has a GJ tube. Continuous tube feeds are running via the J-tube. G-tube is to gravity with bilious output. The GJ tube insertion site some clot around it. There is no exudate. MUSCULOSKELETAL: Extremities without clubbing, cyanosis. There is trace pedal edema. NEUROLOGICAL: Awake and alert. No obvious cranial nerve deficits. Moves all extremities without lateralizing signs Assessment and Plan - Assessment and Plan Plan: NEURO: Depression Continue Lexapro 20 mg per G-tube daily. Continue Wellbutrin 150 mg/day to twice daily. Anxiety Klonopin 0.5 mg per G-tube every 8 hours Lortab as needed for pain. RESP: History of squamous cell carcinoma of the larynx now status post tracheostomy due to recurrent aspiration Spiculated right upper lobe pulmonary nodule, multiple R pulmonary nodules Pulmonary edema Continue with oxygen keep sats >92% Bronchodilators, c Check CXR today Pulmonology following, Dr. Marcelino CV: Monitor HR and BP keep MAP>65mmHg GI: GERD Prevacid 30 mg per G-tube daily Gastroparesis Chronic moderate protein energy malnutrition G tube to gravity. Continuous tube feeds with Vital 1.5 @ 55 ml/hr via J tube. Azithromycin 250 mg IV daily for gastric motility. Local wound care with bacitracin to G J-tube site. FEN/RENAL: CKD stage III Vitamin C supplementation Monitor renal function, I/O's, electrolytes replacement per protocol. Diurese as needed Cr: 1.50 from 1.15, UOP:850ml overnight. ID: ID following, Dr. Canchola. Abx per ID for MDRO (Merrem, Vabomere) Monitor for signs of infections ( Fever, WBC) 05/22 Sputum cx: Pseudomonas MDR 05/25 Urine cx: Pseudomonas MDR HEME: DVT right lower extremity on ultrasound 03/27/18 Hold Lovenox 60 mg for worsening thrombocytopenia Check Doppler US LE. Monitor CBC, check Hep PLT ab r/o HIT s/p transfusion 3u PRBC on 05/25 ENDO: Hypothyroidism Continue Synthroid 150 mcg per G-tube daily PROPH: Lovenox as per above. PPI as per above. ACCESS: Peripheral IV providing adequate access at this time. Palliative care is following Code status: No code DNR Will sign off and transfer care to [facility] Level 3
--- NOTE | 2018-05-30 08:14 | XR ---
EXAM DATE: 05/30/2018 7:29 AM EDT AGE/SEX: 73 years / Female INDICATIONS: Short of breath. CLINICAL DATA: This is the patient's subsequent encounter. Patient reports that signs and symptoms h ave been present for 1 week and indicates a pain score of Nonresponsive. MEDICAL/SURGICAL HISTORY: . Carcinoma, cervical. Carcinoma, rectal. Gastroesophageal reflux di sease. . Cholecystectomy. Appendectomy. Hysterectomy COMPARISON: [facility], CHEST 1V SINGLE AP, 05/29/2018. . FINDINGS: Tracheostomy tube in good position. Interval improvement with less interstitial changes. Heart remain s enlarged. Minimal consolidative changes persisting left base. CONCLUSION: Interval improvement. Less interstitial edema. Trach tube in good position. Electronically signed by: Aly Park MD 05/30/2018 8:12 AM EDT
--- NOTE | 2018-05-30 09:32 | US ---
EXAM DATE: 05/30/2018 12:00 AM EDT AGE/SEX: 73 years / Female INDICATIONS: Bilateral leg edema. CLINICAL DATA: This is the patient's subsequent encounter. Patient reports that signs and symptoms h ave been present for 1 day and indicates a pain score of 0/10. MEDICAL/SURGICAL HISTORY: . Rendon's esophagus. GERD. Hypothyroid. Skin cancer. Larynx and supraglottis carcinoma . Cholecystectomy. Colonoscopy. Esophogeal dilation. EGD. Hernia repair. Tonsillectomy. Adenoidectomy. COMPARISON: [facility] [place], US VENOUS DOPPLER LEG RIGHT, 03/31/2018. . TECHNIQUE: Venous ultrasound of both lower extremities was performed from the inguinal ligament to t he proximal calf. Real-time, color Doppler and spectral tracing, compression and augmentation techni ques were used. FINDINGS: Right Leg: There has been significant interval recanalization of right common and superficial femora l artery DVT with a sinuous channel now present through the superficial femoral vein. The popliteal v ein is almost completely recanalized. The peroneal and posterior tibial veins are patent. Left Leg: Normal compression of the deep venous system from the inguinal region to the proximal calf . No echogenic clot is seen. Normal response of the venous system to augmentation and respiration. Other: None. CONCLUSION: Significant interval recanalization of prior extensive right leg DVT Left leg remains normal in appearance. Electronically signed by: Gee Pinto MD 05/30/2018 9:31 AM EDT
[2018-05-30] MEDS: Sodium Chloride 0.9% 2 ML Flush BID IV.FLUSH SCH ×2 (09:35→20:55)
[2018-05-30] MEDS: Ascorbic Acid 500 MG Tablet J-TUBE SCH ×2 (09:35→20:55)
[2018-05-30] MEDS: Lactobacillus Acidophilus/L. Spores Tablet J-TUBE SCH ×3 (09:35→17:41)
[2018-05-30] MEDS ORDERED: Metoprolol Inj 5 MG/5 ML Vial ONE (10:38)
[2018-05-30] MEDS ORDERED: Metoprolol Inj 5 MG/5 ML Vial IV.PUSH ONE ×2 (11:00→18:30)
--- NOTE | 2018-05-30 12:52 | P.PN ---
Subjective Interval history: She is better today. On a T bar and FIO2 40 %. Trach secretions are yellow. Physical Exam Vital signs: Vital Signs 05/29/18 16:00 05/29/18 16:48 05/29/18 19:33 Temperature 101 F H Pulse Rate 120 H 88 Respiratory Rate 18 18 26 H Blood Pressure 98/52 L Pulse Oximetry 95 05/29/18 19:38 05/29/18 20:00 05/29/18 22:00 Temperature 98.2 F Pulse Rate 92 H 91 H Respiratory Rate Blood Pressure 96/55 L Pulse Oximetry 99 92 L 05/29/18 23:09 05/30/18 00:00 05/30/18 02:00 Temperature Pulse Rate 90 91 H 80 Respiratory Rate 20 23 Blood Pressure 91/50 L Pulse Oximetry 98 05/30/18 03:38 05/30/18 03:53 05/30/18 04:00 Temperature Pulse Rate 90 88 90 Respiratory Rate 30 H 20 33 H Blood Pressure 124/58 L Pulse Oximetry 97 100 05/30/18 05:00 05/30/18 06:00 05/30/18 08:23 Temperature 99.8 F H Pulse Rate 91 H 93 H 96 H Respiratory Rate 20 26 H Blood Pressure 96/49 L 91/49 L Pulse Oximetry 100 97 05/30/18 11:46 Temperature Pulse Rate 96 H Respiratory Rate 28 H Blood Pressure Pulse Oximetry Intake & Output 05/29/18 05/30/18 05/30/18 18:59 06:59 18:59 Intake Total 2810 / 2810 1273 / 1273 Output Total 2600 / 2600 850 / 850 Balance 210 / 210 423 / 423 Weight 61 kg 62.7 kg Intake: IV 1500 / 1500 600 / 600 NS Inj 1,000 ML @ 80 mls/hr IV. 1000 / 1000 CONT .[id number] ANN Rx#:[id number] Azithromycin Inj 250 MG In NS 250 / 250 250 / 250 Inj 250 ML @ 250 mls/hr IV.SIG Q24H ANN Rx#:[id number] Avycaz Inj 0.94 GM In NS Inj 50 50 / 50 ML @ 25 mls/hr IV.SIG Q12H ANN Rx#:[id number] Cubicin Inj 500 MG In NS Inj 100 / 100 100 ML @ 200 mls/hr IV.SIG Q24H ANN Rx#:[id number] Vabomere Inj 2,000 MG In NS Inj 250 / 250 250 ML @ 83.333 mls/hr IV.SIG Q8H ANN Rx#:[id number] Flagyl 500 MG Inj 100 ML @ 100 100 / 100 100 / 100 mls/hr IV.SIG Q8H ANN Rx#: [id number] Oral 150 / 150 Tube Feeding 660 / 660 593 / 593 Tube Irrigant 80 / 80 Water Bolus Amount 500 / 500 Output: Urine Amount (Catheter) 1849 / 1849 850 / 850 Indwelling Urethral Catheter [id number] 850 / 850 Gastric Drainage 750 / 750 Gastrojejunostomy Tube 750 / 750 Other: Date of Last Bowel Movement 05/29/18 05/29/18 # Bowel Movements 2 Narrative: Patient appears in no distress. Trach in place. GENERAL: SKIN: Warm and dry. HEAD: Normocephalic. EYES: No scleral icterus. No injection or drainage. NECK: Supple, trachea midline. No JVD or lymphadenopathy. CARDIOVASCULAR: Irregular rate and rhythm . RESPIRATORY: Breath sounds equal bilaterally. Occ wheeze heard. No accessory muscle use. GASTROINTESTINAL: Abdomen soft, non-tender, nondistended. MUSCULOSKELETAL: No cyanosis, or edema. BACK: Nontender without obvious deformity. No CVA tenderness. Abdomen soft, GJ tube in place Awake, moves all. - Urinary Catheter Management Indwelling Urethral Catheter Cath placed during this visit: yes Reason for continuing: Acute urinary retention Insertion date: 05/25/18 Insertion time: 14:00 Results - Labs CBC & Chem 7: 05/30/18 03:34 05/30/18 03:34 Laboratory Results - last 24 hr 05/29/18 05/29/18 05/29/18 10:50 14:31 19:00 WBC RBC Hgb Hct MCV MCH MCHC RDW Plt Count MPV Prelim Diff (Auto) WBC Differential Seg Neuts % (Manual) Band Neuts % (Manual) Lymphocytes % (Manual) Monocytes % (Manual) Eosinophils % (Manual) Basophils % (Manual) Abs Neuts (Manual) Differential Comment Platelet Estimate Platelet Morphology Ovalocytes Zion Cells Puncture Site Left radial Patient Temperature 98.6 O2 Saturation 92 ABG pH 7.44 H ABG pCO2 30 L ABG pO2 69 ABG HCO3 20 L ABG O2 Content 13.4 ABG Base Excess -3.8 L ABG Methemoglobin 1.5 Terrell Test Present Hemoglobin 10.3 L Carboxyhemoglobin 1.2 O2 Delivery Device 60 Liter Flow 8.00 Inspired O2 60 Critical Value No Sodium Potassium Chloride Carbon Dioxide Anion Gap BUN Creatinine Estimated GFR Random Glucose Calcium Prot Corrected Calcium Phosphorus Magnesium Total Bilirubin AST ALT Alkaline Phosphatase B-Natriuretic Peptide 565 H Total Protein Albumin Urine Color Yellow Urine Clarity Hazy H Urine pH 5.0 Ur Specific Jay 1.005 Urine Protein Negative Urine Glucose (UA) Negative Urine Ketones Negative Urine Occult Blood Negative Urine Nitrate Negative Urine Bilirubin Negative Urine Urobilinogen Less than 2 Ur Leukocyte Esterase Trace H Urine RBC 1 Urine WBC 1 Urine Bacteria Rare H Urine Mucus Few H Micro UA Comment Cath-culture ind Ur Microscopic Review Not Reportable Urine Culture Comments Cath-cult indicated Nasal Screen MRSA (PCR) 05/29/18 05/30/18 05/30/18 19:00 03:34 03:34 WBC 3.0 L RBC 3.15 L Hgb 9.4 L Hct 27.9 L MCV 88.7 MCH 29.8 MCHC 33.7 RDW 15.2 Plt Count 63 L MPV 10.8 Prelim Diff (Auto) Manual diff required WBC Differential Manual diff final Seg Neuts % (Manual) 54 Band Neuts % (Manual) 10 H Lymphocytes % (Manual) 29 Monocytes % (Manual) 2 Eosinophils % (Manual) 4 Basophils % (Manual) 1 Abs Neuts (Manual) 1.9 Differential Comment . Platelet Estimate Low L Platelet Morphology Enlarged H Ovalocytes 1+ H [place] Cells 1+ H Puncture Site Patient Temperature O2 Saturation ABG pH ABG pCO2 ABG pO2 ABG HCO3 ABG O2 Content ABG Base Excess ABG Methemoglobin Terrell Test Hemoglobin Carboxyhemoglobin O2 Delivery Device Liter Flow Inspired O2 Critical Value Sodium 144 Potassium 3.8 Chloride 105 Carbon Dioxide 24.5 Anion Gap 15 BUN 43 H Creatinine 1.50 H Estimated GFR 34 L Random Glucose 123 H Calcium 6.6 L* Prot Corrected Calcium 7.7 L Phosphorus 3.7 Magnesium 1.5 Total Bilirubin 0.3 AST 14 L ALT 15 Alkaline Phosphatase 79 B-Natriuretic Peptide Total Protein 4.9 L Albumin 1.6 L Urine Color Urine Clarity Urine pH Ur Specific Jay Urine Protein Urine Glucose (UA) Urine Ketones Urine Occult Blood Urine Nitrate Urine Bilirubin Urine Urobilinogen Ur Leukocyte Esterase Urine RBC Urine WBC Urine Bacteria Urine Mucus Micro UA Comment Ur Microscopic Review Urine Culture Comments Nasal Screen MRSA (PCR) Not detected Microbiology 05/29/18 18:50 Blood - Peripheral Aerobic Blood Culture - Preliminary No growth in 1 day 05/29/18 18:50 Blood - Peripheral Anaerobic Blood Culture - Preliminary No growth in 1 day 05/29/18 19:00 Blood - Peripheral Aerobic Blood Culture - Preliminary No growth in 1 day 05/29/18 19:00 Blood - Peripheral Anaerobic Blood Culture - Final QNS - See aerobic report. 05/25/18 11:52 Blood - Peripheral Aerobic Blood Culture - Final No growth in 5 days 05/25/18 11:52 Blood - Peripheral Anaerobic Blood Culture - Final No growth in 5 days 05/25/18 11:59 Blood - Peripheral Aerobic Blood Culture - Final No growth in 5 days 05/25/18 11:59 Blood - Peripheral Anaerobic Blood Culture - Final No growth in 5 days 05/29/18 23:30 Sputum - Tracheal Aspirate Gram Stain - Final - Imaging Impressions Venous Doppler Study 05/30/18 00:00 CONCLUSION: Significant interval recanalization of prior extensive right leg DVT Left leg remains normal in appearance. Chest X-Ray 05/30/18 07:29 CONCLUSION: Interval improvement. Less interstitial edema. Trach tube in good position. 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 Cont T Collar at 40 % and wean to keep sat >92 2. Cont nebs with albuterol qid. PRN 3. PM valve daytime PRN to talk 4. Cont Levsin .125 mg qid prn. 5. Tube feeds at 55 CC. 6. D/C BiPAP since pt is DNR and does not want trach change. 7. Up in Chair as tolerated 8. Lasix 20 Mg daily
--- NOTE | 2018-05-30 15:22 | P.PNID ---
Subjective Remarks: in ICU on Tpiece sputum clx P BC NGDT @ 1 day UA unremarkable Antibiotics: vabomere Past Medical History: lung ca Allergies/Adverse Reactions: Allergies epinephrine Allergy (Severe, Verified 02/21/18 08:40) TACHYCARDIA penicillin G Allergy (Severe, Verified 02/21/18 08:40) Hives peanut Allergy (Intermediate, Verified 02/21/18 08:40) ANAPHYLAXIS legumes Allergy (Unknown, Verified 03/06/18 21:48) Anaphylaxis UNKNOWN soy Allergy (Verified 03/06/18 21:45) Rash UNKNOWN Objective Vital Signs 05/29/18 16:00 05/29/18 16:48 05/29/18 19:33 Temperature 101 F H Pulse Rate 120 H 88 Respiratory Rate 18 18 26 H Blood Pressure 98/52 L Pulse Oximetry 95 05/29/18 19:38 05/29/18 20:00 05/29/18 22:00 Temperature 98.2 F Pulse Rate 92 H 91 H Respiratory Rate Blood Pressure 96/55 L Pulse Oximetry 99 92 L 05/29/18 23:09 05/30/18 00:00 05/30/18 02:00 Temperature Pulse Rate 90 91 H 80 Respiratory Rate 20 23 Blood Pressure 91/50 L Pulse Oximetry 98 05/30/18 03:38 05/30/18 03:53 05/30/18 04:00 Temperature Pulse Rate 90 88 90 Respiratory Rate 30 H 20 33 H Blood Pressure 124/58 L Pulse Oximetry 97 100 05/30/18 05:00 05/30/18 06:00 05/30/18 08:23 Temperature 99.8 F H Pulse Rate 91 H 93 H 96 H Respiratory Rate 20 26 H Blood Pressure 96/49 L 91/49 L Pulse Oximetry 100 97 05/30/18 11:46 Temperature Pulse Rate 96 H Respiratory Rate 28 H Blood Pressure Pulse Oximetry Intake & Output 05/29/18 05/30/18 05/30/18 18:59 06:59 18:59 Intake Total 2810 / 2810 1273 / 1273 Output Total 2600 / 2600 850 / 850 Balance 210 / 210 423 / 423 Weight 61 kg 62.7 kg Intake: IV 1500 / 1500 600 / 600 NS Inj 1,000 ML @ 80 mls/hr IV. 1000 / 1000 CONT .[id number] [facility] Rx#:[id number] Azithromycin Inj 250 MG In NS 250 / 250 250 / 250 Inj 250 ML @ 250 mls/hr IV.SIG Q24H ANN Rx#:[id number] Avycaz Inj 0.94 GM In NS Inj 50 50 / 50 ML @ 25 mls/hr IV.SIG Q12H ANN Rx#:[id number] Cubicin Inj 500 MG In NS Inj 100 / 100 100 ML @ 200 mls/hr IV.SIG Q24H ANN Rx#:[id number] Vabomere Inj 2,000 MG In NS Inj 250 / 250 250 ML @ 83.333 mls/hr IV.SIG Q8H ANN Rx#:[id number] Flagyl 500 MG Inj 100 ML @ 100 100 / 100 100 / 100 mls/hr IV.SIG Q8H ANN Rx#: [id number] Oral 150 / 150 Tube Feeding 660 / 660 593 / 593 Tube Irrigant 80 / 80 Water Bolus Amount 500 / 500 Output: Urine Amount (Catheter) 1850 / 1850 850 / 850 Indwelling Urethral Catheter 1850 / 1850 850 / 850 Gastric Drainage 750 / 750 Gastrojejunostomy Tube 750 / 750 Other: Date of Last Bowel Movement 05/29/18 05/29/18 # Bowel Movements 2 05/29/18 19:00 Catheterized Urine Urine Culture - Preliminary No growth. 05/29/18 18:50 Blood - Peripheral Aerobic Blood Culture - Preliminary No growth in 1 day 05/29/18 18:50 Blood - Peripheral Anaerobic Blood Culture - Preliminary No growth in 1 day 05/29/18 19:00 Blood - Peripheral Aerobic Blood Culture - Preliminary No growth in 1 day 05/29/18 19:00 Blood - Peripheral Anaerobic Blood Culture - Final QNS - See aerobic report. 05/25/18 11:52 Blood - Peripheral Aerobic Blood Culture - Final No growth in 5 days 05/25/18 11:52 Blood - Peripheral Anaerobic Blood Culture - Final No growth in 5 days 05/25/18 11:59 Blood - Peripheral Aerobic Blood Culture - Final No growth in 5 days 05/25/18 11:59 Blood - Peripheral Anaerobic Blood Culture - Final No growth in 5 days 05/29/18 23:30 Sputum - Tracheal Aspirate Gram Stain - Final 05/29/18 23:30 Sputum - Tracheal Aspirate Sputum Culture - Pending 05/25/18 13:20 Catheterized Urine Urine Culture - Final Pseudomonas aeruginosa Multidrug Resistant Lab - Hematology Results 05/29/18 05/30/18 10:50 03:34 WBC 3.4 L 3.0 L RBC 3.58 L 3.15 L Hgb 10.8 L 9.4 L Hct 31.8 L 27.9 L MCV 89.0 88.7 MCH 30.2 29.8 MCHC 34.0 33.7 RDW 15.0 15.2 Plt Count 78 L 63 L MPV 10.1 10.8 Prelim Diff (Auto) Manual diff required WBC Differential Manual diff final Seg Neuts % (Manual) 54 Band Neuts % (Manual) 10 H Lymphocytes % (Manual) 29 Monocytes % (Manual) 2 Eosinophils % (Manual) 4 Basophils % (Manual) 1 Abs Neuts (Manual) 1.9 Differential Comment . Platelet Estimate Low L Platelet Morphology Enlarged H Ovalocytes 1+ H Zion Cells 1+ H Lab - Chemistry Results 05/29/18 05/29/18 05/30/18 10:50 10:50 03:34 Sodium 141 144 Potassium 3.9 3.8 Chloride 106 105 Carbon Dioxide 20.3 L 24.5 Anion Gap 15 15 BUN 35 H 43 H Creatinine 1.15 H 1.50 H Estimated GFR 46 L 34 L Random Glucose 105 123 H Calcium 6.9 L* 6.6 L* Prot Corrected Calcium 7.9 L 7.7 L Phosphorus 3.7 Magnesium 1.5 Total Bilirubin 0.3 AST 14 L ALT 15 Alkaline Phosphatase 79 Troponin I 0.03 B-Natriuretic Peptide 565 H Total Protein 5.2 L D 4.9 L Albumin 1.6 L Imaging: ITS Impressions Abdomen/Bladder Ultrasound 05/06/18 00:00 CONCLUSION: 1. Increased renal echogenicity characteristic of medical renal disease. Small cyst right kidney. Dependent debris in the bladder. Tube Check 05/20/18 00:00 CONCLUSION: 1. Uncomplicated tube injection as above. The gastrojejunostomy tube is in good position. If there is concern for duodenal stricture resulting in a functional obstruction consideration could be made to the administration of barium either orally or through the gastric lumen of the tube to assess for any obstruction. Thin iodinated contrast would be limited in trying to assess this. Upper GI Series 05/21/18 00:00 CONCLUSION: No evidence of gastric outlet or duodenal obstruction. Abdomen/Pelvis CT 05/22/18 00:00 CONCLUSION: 1. Diverticulosis without perceptible diverticulitis or other acute inflammatory changes. 2. The gastrojejunostomy tube appears appropriately positioned. No perceptible associated acute complication. 3. There are scattered tiny nonobstructing stones of both kidneys and a small cyst on the right. 4. Small sliding-type hiatal hernia again seen. Chest CT 05/22/18 16:12 CONCLUSION: 1. Moderate left pleural effusion with atelectasis of the left lower lobe. 2. Mild right base atelectasis, improved compared to prior CT. 3. Right upper lobe pulmonary nodules are stable but the larger one remains concerning for primary bronchogenic carcinoma. Chest Ultrasound 05/23/18 00:00 CONCLUSION: 1. Lastly 360 cc of pleural effusion on the left. This does not appear loculated or complex. Site was marked Thoracentesis Ultrasound 05/23/18 00:00 CONCLUSION: Uncomplicated ultrasound-guided left chest thoracentesis as above. Extremity Arterial Study 05/24/18 00:00 CONCLUSION: 1. Severe reduction of the ABIs bilaterally. Abdomen X-Ray 05/26/18 00:00 CONCLUSION: 1. GJ tube appears to be in appropriate position with distal end of the jejunal feeding tube in the left upper quadrant. 2. Persistent pleural-parenchymal opacity at the left lung base. Chest CTA 05/26/18 00:00 CONCLUSION: 1. No evidence for pulmonary embolism. 2. Bibasilar consolidation. 3. Prominent nodule in the right upper lobe again seen measuring 13 mm concerning for malignancy. 4. Patchy opacities in the lingula and left lower lobe likely infectious. Venous Doppler Study 05/30/18 00:00 CONCLUSION: Significant interval recanalization of prior extensive right leg DVT Left leg remains normal in appearance. Chest X-Ray 05/30/18 07:29 CONCLUSION: Interval improvement. Less interstitial edema. Trach tube in good position. Physical Exam: GENERAL: NAD looks sick today, lehtargic thin chronically ill apperaing SKIN: Warm and dry. NO rash HEAD: Atraumatic. Normocephalic. EYES: Pupils equal and round. No scleral icterus. No injection or drainage. ENT: No nasal bleeding or discharge. Mucous membranes pink and moist. NECK: Trach in place, site OK CARDIOVASCULAR: Regular rate and rhythm. + murmur, holosystolic RESPIRATORY: No accessory muscle use. Diffuse b/ crackles to auscultation. Breath sounds equal bilaterally. GASTROINTESTINAL: Abdomen soft, not tender in LLQ and mildly distended w/o guarding and rebound PEG in place with no drainage; dry around the entry site MUSCULOSKELETAL: Extremities without clubbing, cyanosis, + some edema. No obvious deformities. NEUROLOGICAL: Lethargic but easily arousable asnd able to talk coherently . No obvious cranial nerve deficits. Motor grossly within normal limits. Five out of 5 muscle strength in the arms and legs. 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 PNA BLL, MDRO PSAE, Acinetobacter H&N cancer sp trach, PEG Diarrhea, neg for C.diff as of 05/25 Mild PEG infection vs irritation growing mixed andrew which is c/w contaminantion, including VRE New sepsis likley source pulmonary vs GI, less likely \ Colonised with multiple MDROs, including PSAE, VRE PEG site does not appear to be the source of infection and already looks better with topical bacitracin UTI, MDRO PDSAE Pt is critically ill, prognosis is poor agree with palliative care plan cont vabomere fu P sputum, blood and urine clx further rec's per clx results dw RN lori pallilative care team
[2018-05-30] MEDS: buPROPion 75 MG Tablet J-TUBE SCH ×2 (17:14→21:45)
--- NOTE | 2018-05-30 17:33 | P.PNPAL ---
Reason for Visit Reason for visit: a. To assist with evaluation and management of symptoms including: dyspnea, pain, debility, anxiety. b. To assist medical decision maker(s) with: better understanding of current medical conditions; weighing benefits/burdens of medical treatment options; making medical treatment decisions. Subjective Subjective/Interval History: Patient is seen and examined in ICU. Discussed with Dr. Lopez and nurse Lynette. Patient is awake and alert. On oxygen via t-piece to tracheostomy. She had an episode of tachycardia today, Dr. Lopez plans to monitor in ICU for now. Patient recognizes me from prior visit 05/29/18. When asked if she has any pain or shortness of breath today, she mouths "I am comfortable." No PRN Brimfield, Morphine or benzo given today. Nurse reports patient has been lethargic today. She is arousable, able to make her needs known by mouthing words or writing. Afebrile. Tachycardic today, improved after meds. Oxygen saturation 96%. Creatinine 1.50 today. Sputum culture pending. Prior cultures: Urine culture 05/25/18 multidrug-resistant pseudomonas aeruginosa. 05/22/18 sputum culture multidrug-resistant pseudomonas aeruginosa. 05/25/18 blood cultures no growth to date. Chest x-ray interval improvement, less interstitial edema. Discussed with nursing staff and Dr. Lopez. Family/Friend Interactions: Called son, Alireza Whitten to provide medical update. He is again asking if PICC line was placed, advised I spoke with medical team (managed care manager and ID) who agreed. Called to nurse to request follow up, order has been placed, nurse will call vascular access. Update provided. Advised patient may be transferred to [facility] in the next 24 hours if she remains stable. He agrees. I agreed to see her again Saturday and provide another update. He verbalizes great appreciation for the time spent yesterday to facilitate a conversation between him and his mother. Advance Directives Living Will: Copy in medical record Health Care Surrogate: Copy in medical record Advance Directives Date on File: 02/08/18 Health Care Surrogate Name and Number: janet Corado/medical power of energy attorney: [phone] Documented care wishes:: Patient directs that her healthcare providers and others involved in her care provide, withhold or withdraw treatment in accordance with her wish to not prolong life if she has an incurable and irreversible condition that will result in her within a relatively short time or if she becomes unconscious and to a reasonable degree of medical certainty will not regain consciousness were the likely results and burdens of treatment would outweigh the expected benefits. She requests also that treatment for alleviation of pain or discomfort be provided at all times, even if it hastens her . Additionally she indicates that in the event of severe and irreversible or terminal illness that she wishes for the priority on keeping her comfortable and no aggressive therapy or intervention be done unless expressly approved by Alireza Whitten her son. She does not wish to donate any organs after her . Significant change in goals:: NO CODE (DNR/DNI). Patient does not want trach changed. Patient and her son desire PICC line placement. Desires continued aggressive care short of these restrictions for now. Objective Vital Signs: Vital Signs 05/29/18 19:33 05/29/18 19:38 05/29/18 20:00 Temperature 98.2 F Pulse Rate 88 92 H Respiratory Rate 26 H Blood Pressure 96/55 L Pulse Oximetry 99 92 L 05/29/18 22:00 05/29/18 23:09 05/30/18 00:00 Temperature Pulse Rate 91 H 90 91 H Respiratory Rate 20 23 Blood Pressure 91/50 L Pulse Oximetry 98 05/30/18 02:00 05/30/18 03:38 05/30/18 03:53 Temperature Pulse Rate 80 90 88 Respiratory Rate 30 H 20 Blood Pressure Pulse Oximetry 97 05/30/18 04:00 05/30/18 05:00 05/30/18 06:00 Temperature 99.8 F H Pulse Rate 90 91 H 93 H Respiratory Rate 33 H 20 26 H Blood Pressure 124/58 L 96/49 L 91/49 L Pulse Oximetry 100 100 97 05/30/18 08:00 05/30/18 08:23 05/30/18 10:00 Temperature 98.8 F Pulse Rate 76 96 H 134 H Respiratory Rate 24 Blood Pressure 101/51 L Pulse Oximetry 98 05/30/18 11:46 05/30/18 12:00 05/30/18 14:00 Temperature 98.9 F Pulse Rate 96 H 99 H 84 Respiratory Rate 28 H 26 H Blood Pressure 103/52 L Pulse Oximetry 96 05/30/18 16:30 Temperature Pulse Rate 97 H Respiratory Rate 28 H Blood Pressure Pulse Oximetry Intake & Output 05/29/18 05/30/18 05/30/18 18:59 06:59 18:59 Intake Total 2810 / 2810 1273 / 1273 Output Total 2600 / 2600 850 / 850 Balance 210 / 210 423 / 423 Weight 61 kg 62.7 kg Intake: IV 1500 / 1500 600 / 600 NS Inj 1,000 ML @ 80 mls/hr IV. 1000 / 1000 CONT .[id number] [facility] Rx#:[id number] Azithromycin Inj 250 MG In NS 250 / 250 250 / 250 Inj 250 ML @ 250 mls/hr IV.SIG Q24H NELSON Rx#:[id number] Avycaz Inj 0.94 GM In NS Inj 50 50 / 50 ML @ 25 mls/hr IV.SIG Q12H N[facility]SON Rx#:[id number] Cubicin Inj 500 MG In NS Inj 100 / 100 100 ML @ 200 mls/hr IV.SIG Q24H N[facility]SON Rx#:[id number] Vabomere Inj 2,000 MG In NS Inj 250 / 250 250 ML @ 83.333 mls/hr IV.SIG Q8H [facility]SON Rx#:[id number] Flagyl 500 MG Inj 100 ML @ 100 100 / 100 100 / 100 mls/hr IV.SIG Q8H NELSON Rx#: [id number] Oral 150 / 150 Tube Feeding 660 / 660 593 / 593 Tube Irrigant 80 / 80 Water Bolus Amount 500 / 500 Output: Urine Amount (Catheter) 1850 / 1850 850 / 850 Indwelling Urethral Catheter 1850 / 1850 850 / 850 Gastric Drainage 750 / 750 Gastrojejunostomy Tube 750 / 750 Other: Date of Last Bowel Movement 05/29/18 05/29/18 05/29/18 # Bowel Movements 2 Physical Exam: CONSTITUTIONAL/GENERAL: this is a pale, chronically ill appearing female with a tracheostomy TUBES/LINES: t-piece oxygen to trach, PIV right, GJ tube, dressing right great toe. SKIN: Pale. Afebrile. Dressing on right great toe. No jaundice, rashes, or lesions. HEAD: Atraumatic. Normocephalic. EYES: Pupils equal and reactive. ENT: Hearing grossly normal. Nose without bleeding or purulent drainage. Oral mucosa dry. CARDIOVASCULAR: Tachycardic. RESPIRATORY/CHEST: Coarse breath sounds right > left, diminished lung sounds bilateral bases. GASTROINTESTINAL: Abdomen soft, non-tender, nondistended. No guarding. GJ tube. MUSCULOSKELETAL: Extremities without clubbing, cyanosis. + pedal edema. NEUROLOGICAL: Awake and alert. Motor and sensory grossly within normal limits. Follows commands. Cognitively sharp. Mouths words. Moves all extremities. PSYCHIATRIC: Calm. Diagnostic Tests Laboratory: Laboratory Results - last 72 hr 05/25/18 05/28/18 05/29/18 11:45 05:44 10:50 WBC 3.3 L 3.4 L RBC 3.47 L 3.58 L Hgb 10.5 L 10.8 L Hct 30.2 L 31.8 L MCV 87.1 89.0 MCH 30.2 30.2 MCHC 34.7 34.0 RDW 14.9 15.0 Plt Count 82 L 78 L MPV 10.2 10.1 Prelim Diff (Auto) Manual diff required WBC Differential Manual diff final Seg Neuts % (Manual) 66 Band Neuts % (Manual) 7 H Lymphocytes % (Manual) 15 Monocytes % (Manual) 7 Eosinophils % (Manual) 2 Basophils % (Manual) Promyelocytes % (Man) 3 H Abs Neuts (Manual) 2.5 Differential Comment . Platelet Estimate Low L Platelet Morphology Normal Ovalocytes 1+ H [place] Cells 2+ H Keratocytes Occ H Puncture Site Patient Temperature O2 Saturation ABG pH ABG pCO2 ABG pO2 ABG HCO3 ABG O2 Content ABG Base Excess ABG Methemoglobin Terrell Test Hemoglobin Carboxyhemoglobin O2 Delivery Device Liter Flow Inspired O2 Critical Value Sodium Potassium Chloride Carbon Dioxide Anion Gap BUN Creatinine Estimated GFR Random Glucose Calcium Prot Corrected Calcium Phosphorus Magnesium Total Bilirubin AST ALT Alkaline Phosphatase Troponin I B-Natriuretic Peptide Total Protein Albumin Urine Color Urine Clarity Urine pH Ur Specific [place] Urine Protein Urine Glucose (UA) Urine Ketones Urine Occult Blood Urine Nitrate Urine Bilirubin Urine Urobilinogen Ur Leukocyte Esterase Urine RBC Urine WBC Urine Bacteria Urine Mucus Micro UA Comment Ur Microscopic Review Urine Culture Comments Nasal Screen MRSA (PCR) Rout Panel Path Interp 05/29/18 05/29/18 05/29/18 10:50 10:50 14:31 WBC RBC Hgb Hct MCV MCH MCHC RDW Plt Count MPV Prelim Diff (Auto) WBC Differential Seg Neuts % (Manual) Band Neuts % (Manual) Lymphocytes % (Manual) Monocytes % (Manual) Eosinophils % (Manual) Basophils % (Manual) Promyelocytes % (Man) Abs Neuts (Manual) Differential Comment Platelet Estimate Platelet Morphology Ovalocytes [place] Cells Keratocytes Puncture Site Left radial Patient Temperature 98.6 O2 Saturation 92 ABG pH 7.44 H ABG pCO2 30 L ABG pO2 69 ABG HCO3 20 L ABG O2 Content 13.4 ABG Base Excess -3.8 L ABG Methemoglobin 1.5 Terrell Test Present Hemoglobin 10.3 L Carboxyhemoglobin 1.2 O2 Delivery Device 60 Liter Flow 8.00 Inspired O2 60 Critical Value No Sodium 141 Potassium 3.9 Chloride 106 Carbon Dioxide 20.3 L Anion Gap 15 BUN 35 H Creatinine 1.15 H Estimated GFR 46 L Random Glucose 105 Calcium 6.9 L* Prot Corrected Calcium 7.9 L Phosphorus Magnesium Total Bilirubin AST ALT Alkaline Phosphatase Troponin I 0.03 B-Natriuretic Peptide 565 H Total Protein 5.2 L D Albumin Urine Color Urine Clarity Urine pH Ur Specific [place] Urine Protein Urine Glucose (UA) Urine Ketones Urine Occult Blood Urine Nitrate Urine Bilirubin Urine Urobilinogen Ur Leukocyte Esterase Urine RBC Urine WBC Urine Bacteria Urine Mucus Micro UA Comment Ur Microscopic Review Urine Culture Comments Nasal Screen MRSA (PCR) Rout Panel Path Interp 05/29/18 05/29/18 05/30/18 19:00 19:00 03:34 WBC 3.0 L RBC 3.15 L Hgb 9.4 L Hct 27.9 L MCV 88.7 MCH 29.8 MCHC 33.7 RDW 15.2 Plt Count 63 L MPV 10.8 Prelim Diff (Auto) Manual diff required WBC Differential Manual diff final Seg Neuts % (Manual) 54 Band Neuts % (Manual) 10 H Lymphocytes % (Manual) 29 Monocytes % (Manual) 2 Eosinophils % (Manual) 4 Basophils % (Manual) 1 Promyelocytes % (Man) Abs Neuts (Manual) 1.9 Differential Comment . Platelet Estimate Low L Platelet Morphology Enlarged H Ovalocytes 1+ H [place] Cells 1+ H Keratocytes Puncture Site Patient Temperature O2 Saturation ABG pH ABG pCO2 ABG pO2 ABG HCO3 ABG O2 Content ABG Base Excess ABG Methemoglobin Terrell Test Hemoglobin Carboxyhemoglobin O2 Delivery Device Liter Flow Inspired O2 Critical Value Sodium Potassium Chloride Carbon Dioxide Anion Gap BUN Creatinine Estimated GFR Random Glucose Calcium Prot Corrected Calcium Phosphorus Magnesium Total Bilirubin AST ALT Alkaline Phosphatase Troponin I B-Natriuretic Peptide Total Protein Albumin Urine Color Yellow Urine Clarity Hazy H Urine pH 5.0 Ur Specific [place] 1.005 Urine Protein Negative Urine Glucose (UA) Negative Urine Ketones Negative Urine Occult Blood Negative Urine Nitrate Negative Urine Bilirubin Negative Urine Urobilinogen Less than 2 Ur Leukocyte Esterase Trace H Urine RBC 1 Urine WBC 1 Urine Bacteria Rare H Urine Mucus Few H Micro UA Comment Cath-culture ind Ur Microscopic Review Not Reportable Urine Culture Comments Cath-cult indicated Nasal Screen MRSA (PCR) Not detected Rout Panel Path Interp 05/30/18 03:34 WBC RBC Hgb Hct MCV MCH MCHC RDW Plt Count MPV Prelim Diff (Auto) WBC Differential Seg Neuts % (Manual) Band Neuts % (Manual) Lymphocytes % (Manual) Monocytes % (Manual) Eosinophils % (Manual) Basophils % (Manual) Promyelocytes % (Man) Abs Neuts (Manual) Differential Comment Platelet Estimate Platelet Morphology Ovalocytes [place] Cells Keratocytes Puncture Site Patient Temperature O2 Saturation ABG pH ABG pCO2 ABG pO2 ABG HCO3 ABG O2 Content ABG Base Excess ABG Methemoglobin Terrell Test Hemoglobin Carboxyhemoglobin O2 Delivery Device Liter Flow Inspired O2 Critical Value Sodium 144 Potassium 3.8 Chloride 105 Carbon Dioxide 24.5 Anion Gap 15 BUN 43 H Creatinine 1.50 H Estimated GFR 34 L Random Glucose 123 H Calcium 6.6 L* Prot Corrected Calcium 7.7 L Phosphorus 3.7 Magnesium 1.5 Total Bilirubin 0.3 AST 14 L ALT 15 Alkaline Phosphatase 79 Troponin I B-Natriuretic Peptide Total Protein 4.9 L Albumin 1.6 L Urine Color Urine Clarity Urine pH Ur Specific [place] Urine Protein Urine Glucose (UA) Urine Ketones Urine Occult Blood Urine Nitrate Urine Bilirubin Urine Urobilinogen Ur Leukocyte Esterase Urine RBC Urine WBC Urine Bacteria Urine Mucus Micro UA Comment Ur Microscopic Review Urine Culture Comments Nasal Screen MRSA (PCR) Rout Panel Path Interp Result Diagrams: 05/30/18 03:34 05/30/18 03:34 Microbiology: Microbiology 05/29/18 19:00 Urine Culture - Preliminary Catheterized Urine No growth. 05/29/18 18:50 Aerobic Blood Culture - Preliminary Blood - Peripheral No growth in 1 day Anaerobic Blood Culture - Preliminary No growth in 1 day 05/29/18 19:00 Aerobic Blood Culture - Preliminary Blood - Peripheral No growth in 1 day Anaerobic Blood Culture - Final QNS - See aerobic report. 05/25/18 11:52 Aerobic Blood Culture - Final Blood - Peripheral No growth in 5 days Anaerobic Blood Culture - Final No growth in 5 days 05/25/18 11:59 Aerobic Blood Culture - Final Blood - Peripheral No growth in 5 days Anaerobic Blood Culture - Final No growth in 5 days 05/29/18 23:30 Gram Stain - Final Sputum - Tracheal Aspirate 05/25/18 13:20 Urine Culture - Final Catheterized Urine Pseudomonas aeruginosa Multidrug Resistant Imaging: Abdomen/Bladder Ultrasound 05/06/18 00:00 CONCLUSION: 1. Increased renal echogenicity characteristic of medical renal disease. Small cyst right kidney. Dependent debris in the bladder. Tube Check 05/20/18 00:00 CONCLUSION: 1. Uncomplicated tube injection as above. The gastrojejunostomy tube is in good position. If there is concern for duodenal stricture resulting in a functional obstruction consideration could be made to the administration of barium either orally or through the gastric lumen of the tube to assess for any obstruction. Thin iodinated contrast would be limited in trying to assess this. Upper GI Series 05/21/18 00:00 CONCLUSION: No evidence of gastric outlet or duodenal obstruction. Abdomen/Pelvis CT 05/22/18 00:00 CONCLUSION: 1. Diverticulosis without perceptible diverticulitis or other acute inflammatory changes. 2. The gastrojejunostomy tube appears appropriately positioned. No perceptible associated acute complication. 3. There are scattered tiny nonobstructing stones of both kidneys and a small cyst on the right. 4. Small sliding-type hiatal hernia again seen. Chest CT 05/22/18 16:12 CONCLUSION: 1. Moderate left pleural effusion with atelectasis of the left lower lobe. 2. Mild right base atelectasis, improved compared to prior CT. 3. Right upper lobe pulmonary nodules are stable but the larger one remains concerning for primary bronchogenic carcinoma. Chest Ultrasound 05/23/18 00:00 CONCLUSION: 1. Lastly 360 cc of pleural effusion on the left. This does not appear loculated or complex. Site was marked Thoracentesis Ultrasound 05/23/18 00:00 CONCLUSION: Uncomplicated ultrasound-guided left chest thoracentesis as above. Extremity Arterial Study 05/24/18 00:00 CONCLUSION: 1. Severe reduction of the ABIs bilaterally. Abdomen X-Ray 05/26/18 00:00 CONCLUSION: 1. GJ tube appears to be in appropriate position with distal end of the jejunal feeding tube in the left upper quadrant. 2. Persistent pleural-parenchymal opacity at the left lung base. Chest CTA 05/26/18 00:00 CONCLUSION: 1. No evidence for pulmonary embolism. 2. Bibasilar consolidation. 3. Prominent nodule in the right upper lobe again seen measuring 13 mm concerning for malignancy. 4. Patchy opacities in the lingula and left lower lobe likely infectious. Venous Doppler Study 05/30/18 00:00 CONCLUSION: Significant interval recanalization of prior extensive right leg DVT Left leg remains normal in appearance. Chest X-Ray 05/30/18 07:29 CONCLUSION: Interval improvement. Less interstitial edema. Trach tube in good position. 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 Patient now has a tracheostomy. (4) Debility 0-10 Scale: 0 Pertinent Non-Medical Issues: Psychosocial: Patient is originally from [place]. She has 4 brothers and 2 sisters. She moved to [place] approximately 40 years ago. Patient was for 18 years and then . She and her had 3 sons (Alireza, Sagar and Cameron). Alireza is a physicians cosmetic sales assistant and lives in [place]. Adalid and Cameron live in [place]. Per patient, Cameron was born with "autism" and live in a shelter Spiritual: Confucianist Legal: Pt's son Alireza is medical POA. Ethical issues impacting care: none Important Contacts: medical POA son Alireza Whitten , cell [phone] Prognosis: This is a 73 yo lady with hx laryngeal ca diagnosed 2015 s/p chemo and radiation who presented 04/23 after [facility] called for hypoxia and respiratory distress while in [facility]. She initially presented in January with weakness, dysphagia, weight loss, anemia. Chest CT showing enlarging spiculated nodule, 2 additional right lung nodules. She has since had tracheostomy, GJ, and numerous complications, including PNA, need for GJ replacement. She is likely to continue to decline and encounter complications and setbacks as she deconditions. Unlikely she would tolerate invasive procedure such as long bx, or tolerate the treatment necessary to address a malignancy if that is what her lung nodules are. Code Status: No Code DNR (DNR/DNI does NOT want to go back on mech vent.) Plan: - LEGAL DECISON MAKER - Pt is capacitated to make medical decisions. Should she become incapacitated, she has designated her son Alireza as medical POA. - NO CODE - DNR/DNI does NOT want to go back on mech vent. - GOALS - Goals aggressive short of NO CODE, she does not want tracheostomy changed out. Family again asks when PICC Line will be placed. Requested Vascular access follow and that staff notify son if not going to be put in on , son feels PICC line is a Palliative concern given increased amount of IV sticks for meds and lab draws. Dr. Lopez and Dr. Canchola agree. They do not want comfort meds withheld for hypotension or other reasons. - Palliative care will follow up 06/02/18 to provide medical update to son, Alireza. - SYMPTOMS - No new medication recommendations at this time. * pain - risk for pain. multifactorial, coccygeal ulcer, mult lines and catheters, tubes. c/o LLQ pain when she coughs and g tube site pain. site is erythematous. IR consult pending, possible replacement tube. recommend premedicating prior to going to IR as pt c/o of pain during and after last procedure. consider CT scan for LLQ pain. Has Brimfield 5/325 1 tab PRN q4h and 2 tab PRN q4h for mild and moderate to severe pain, respectively. Also has PRN roxanol 5mg q4h for breakthrough pain. Continue current meds, call son prior to making any medication adjustments. * dyspnea - hx laryngeal ca, has trach, now with PNA. BCX pending. denies feeling SOB today. on RA, has PM valve. has PRN and scheduled duonebs, PRN and nelson levsin. ID was following, pt has finished abx. has PRN meds for anxiety and pain. * depression/anxiety - multifactorial. pt mildly anxious . on lexapro, wellbutrin. has clonazepam 0.5 mg q8h PRN. Has PRN temazepam for insomnia. * debility- multifactorial. 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 respiratory status unlikely to allow for aggressive therapy and rehab. weak. PT following. no further recs. - d/w RN. Ojeda, Dr. Lopez, patient and son, Waldemar Whitten. - Palliative care will continue to follow during hospital course as condition evolves, to assist patient/decision-maker with understanding of medical conditions, weighing benefits/burdens of treatment options, for clarification of goals of treatment. Additionally will assist with any symptoms of palliative concern Attestation Attestation: To help prompt me to consider important information that might be impacting today's encounter and assessment, information from prior notes written by myself or my colleagues may have been "brought forward" into today's note. My signature on this note, however, is an attestation that I personally performed the exam, history, and/or decision-making noted today, and, unless otherwise indicated, the interactions with patient, family, and staff as well as the review of records all occurred today. I also attest that the listed assessment and stated plan reflect my best clinical judgment today based on the combination of historical information, prior notes, and today's exam/ interactions. When time spent is documented, it refers only to time spent today by the signer, or if indicated, combined time spent today by collaborating physician/nurse practitioner.
[2018-05-31] MEDS: SODIUM CHLOR 0.9% IV.SIG SCH ×3 (05:30→21:55)
[2018-05-31] MEDS: MEROPENEM VABORBACTAM IV.SIG SCH ×3 (05:30→21:55)
[2018-05-31 05:49] LABS: Hematocrit 30.5 % (35.0-46.0); Hemoglobin 10.2 gm/dL (11.6-15.3); Mean Corpuscular HGB Conc 33.4 % (32.0-36.0); Mean Corpuscular Hemoglobin 29.6 pg (27.0-34.0); Mean Corpuscular Volume 88.7 fL (80.0-100.0); Mean Platelet Volume 10.8 fL (7.0-11.0); Platelet Count 71 th/mm3 (150-450); Red Blood Count 3.44 mil/mm3 (4.00-5.30); Red Cell Distribution Width 14.9 % (11.6-17.2); White Blood Count 4.1 th/mm3 (4.0-11.0)
[2018-05-31] MEDS: Hyoscyamine Liq Drops 0.125 MG/ML 15 ML Bottle SL SCH ×4 (06:01→21:56)
[2018-05-31 06:22] LABS: Albumin 1.7 g/dL (3.4-5.0); Calcium 7.4 mg/dL (8.5-10.1); Carbon Dioxide 23.7 meq/L (21.0-32.0); Magnesium 1.3 mg/dL (1.5-2.5); Potassium 4.2 meq/L (3.5-5.1)
[2018-05-31 06:25] LABS: Phosphorus 2.6 mg/dL (2.5-4.9); Total Protein 5.3 g/dL (6.4-8.2)
[2018-05-31] MEDS: Levothyroxine 150 MCG Tablet J-TUBE SCH (07:21)
[2018-05-31] MEDS: buPROPion 75 MG Tablet J-TUBE SCH ×2 (08:05→21:55)
[2018-05-31] MEDS: Lactobacillus Acidophilus/L. Spores Tablet J-TUBE SCH ×3 (08:05→21:54)
[2018-05-31] MEDS: Sodium Chloride 0.9% 2 ML Flush BID IV.FLUSH SCH ×2 (08:06→21:54)
[2018-05-31] MEDS: Ascorbic Acid 500 MG Tablet J-TUBE SCH ×2 (08:06→21:54)
[2018-05-31 08:32] LABS: Blast Cells 3 % (0-0); Eosinophils 5 % (0-4); Lymphocytes 7 % (9-44); Metamyelocytes 1 % (0-1); Monocytes 6 % (0-8); Myelocytes 5 % (0-0)
[2018-05-31 08:35] LABS: Ovalocytes 1+
[2018-05-31 08:36] LABS: Toxic Granulation 1+; Toxic Vacuolation Present
[2018-05-31 08:37] LABS: Acanthocytes 1+
[2018-05-31] MEDS ORDERED: Magnesium Sulfate Inj 2 GM in Sodium Chlor 0.9% Inj 96 ML IV.SIG ONE (11:00)
--- NOTE | 2018-05-31 12:33 | P.PN ---
Subjective Interval history: Nursing denies any deterioration since last night except for low magnesium of 1.3. Patient makes eye contact but does not speak much due to her trach condition. Physical Exam Vital signs: Vital Signs 05/30/18 14:00 05/30/18 16:00 05/30/18 16:05 Temperature 99.5 F Pulse Rate 84 85 86 Respiratory Rate 38 H Blood Pressure 108/53 L Pulse Oximetry 95 05/30/18 16:10 05/30/18 16:15 05/30/18 16:20 Temperature Pulse Rate 96 H 84 96 H Respiratory Rate 29 H 29 H 35 H Blood Pressure 114/55 L 110/53 L 116/57 L Pulse Oximetry 94 L 94 L 94 L 05/30/18 16:25 05/30/18 16:30 05/30/18 16:35 Temperature Pulse Rate 83 96 H 94 H Respiratory Rate 32 H 29 H 28 H Blood Pressure 110/53 L 110/53 L 111/54 L Pulse Oximetry 97 95 100 05/30/18 16:40 05/30/18 16:45 05/30/18 16:50 Temperature Pulse Rate 96 H 86 86 Respiratory Rate 30 H 43 H 31 H Blood Pressure 108/51 L 143/63 H 122/57 L Pulse Oximetry 99 95 97 05/30/18 16:55 05/30/18 17:00 05/30/18 17:05 Temperature Pulse Rate 88 89 89 Respiratory Rate 27 H 28 H 29 H Blood Pressure 117/56 L 111/53 L 112/56 L Pulse Oximetry 98 98 98 05/30/18 17:10 05/30/18 17:15 05/30/18 17:20 Temperature Pulse Rate 102 H 101 H 100 H Respiratory Rate 33 H 27 H 29 H Blood Pressure 114/53 L 116/55 L 116/57 L Pulse Oximetry 96 98 97 05/30/18 17:25 05/30/18 17:30 05/30/18 17:35 Temperature Pulse Rate 129 H 132 H 132 H Respiratory Rate 27 H 28 H 28 H Blood Pressure 99/54 L 109/57 L 115/58 L Pulse Oximetry 98 97 97 05/30/18 17:40 05/30/18 17:45 05/30/18 17:50 Temperature Pulse Rate 132 H 131 H 132 H Respiratory Rate 31 H 35 H 31 H Blood Pressure 110/56 L 106/57 L 108/55 L Pulse Oximetry 96 96 95 05/30/18 17:55 05/30/18 18:00 05/30/18 18:05 Temperature Pulse Rate 133 H 135 H 133 H Respiratory Rate 38 H 38 H 30 H Blood Pressure 105/54 L 126/61 112/54 L Pulse Oximetry 95 96 96 05/30/18 18:30 05/30/18 19:45 05/30/18 20:00 Temperature 98.4 F Pulse Rate 112 H 127 H Respiratory Rate 26 H 20 22 Blood Pressure 95/50 L Pulse Oximetry 100 96 05/30/18 22:00 05/31/18 00:00 05/31/18 02:00 Temperature 98.2 F Pulse Rate 126 H 126 H 128 H Respiratory Rate 31 H Blood Pressure 102/54 L Pulse Oximetry 93 L 05/31/18 04:00 05/31/18 06:00 05/31/18 07:44 Temperature 98 F Pulse Rate 124 H 124 H 87 Respiratory Rate 32 H 24 Blood Pressure 106/55 L Pulse Oximetry 94 L 95 05/31/18 08:00 05/31/18 10:00 05/31/18 11:41 Temperature Pulse Rate 89 70 70 Respiratory Rate 22 Blood Pressure Pulse Oximetry Intake & Output 05/30/18 05/31/18 05/31/18 18:59 06:59 18:59 Intake Total 1441 / 1441 1031 / 1031 Output Total 1400 / 1400 1300 / 1300 Balance 41 / 41 -269 / -269 Weight 63.1 kg Intake: IV 500 / 500 250 / 250 Vabomere Inj 2,000 MG In NS Inj 500 / 500 250 / 250 250 ML @ 83.333 mls/hr IV.SIG Q8H [facility] Rx#:[id number] Tube Feeding 441 / 441 581 / 581 Water Bolus Amount 500 / 500 200 / 200 Output: Urine Amount (Catheter) 1400 / 1400 1300 / 1300 Indwelling Urethral Catheter 1400 / 1400 1300 / 1300 Other: Date of Last Bowel Movement 05/29/18 05/31/18 05/29/18 # Bowel Movements 1 Narrative: Heart sounds regular rate rhythm, no murmurs Clear lungs bilaterally, unlabored breathing Frail appearing, pale - Urinary Catheter Management Indwelling Urethral Catheter Cath placed during this visit: yes Reason for continuing: Acute urinary retention Insertion date: 05/25/18 Insertion time: 14:00 Results - Labs CBC & Chem 7: 05/31/18 05:20 05/31/18 05:20 Laboratory Results - last 24 hr 05/30/18 05/31/18 05/31/18 09:21 05:20 05:20 WBC 4.1 RBC 3.44 L Hgb 10.2 L Hct 30.5 L MCV 88.7 MCH 29.6 MCHC 33.4 RDW 14.9 Plt Count 71 L MPV 10.8 Prelim Diff (Auto) Slide review pending WBC Differential Manual diff final Seg Neuts % (Manual) 58 Band Neuts % (Manual) 15 H Lymphocytes % (Manual) 7 L Monocytes % (Manual) 6 Eosinophils % (Manual) 5 H Metamyelocytes % (Man) 1 Myelocytes % (Man) 5 H Blast Cells % (Manual) 3 H Abs Neuts (Manual) 3.2 Differential Comment . Toxic Granulation 1+ H Toxic Vacuolation Present H Platelet Estimate Low L Platelet Morphology Enlarged H Ovalocytes 1+ H Acanthocytes (Spur) 1+ H Sodium 139 Potassium 4.2 Chloride 105 Carbon Dioxide 23.7 Anion Gap 10 BUN 50 H Creatinine 1.43 H Estimated GFR 36 L Random Glucose 115 H Calcium 7.4 L* D Prot Corrected Calcium 8.4 L Phosphorus 2.6 D Magnesium 1.3 L Total Bilirubin 0.3 AST 17 ALT 16 Alkaline Phosphatase 91 Total Protein 5.3 L Albumin 1.7 L Heparin Dep Plt Ab OD 0.502 Hep-Induced Plt Ab Elissa Negative Microbiology 05/29/18 18:50 Blood - Peripheral Aerobic Blood Culture - Preliminary No growth in 2 days 05/29/18 18:50 Blood - Peripheral Anaerobic Blood Culture - Preliminary No growth in 2 days 05/29/18 19:00 Blood - Peripheral Aerobic Blood Culture - Preliminary No growth in 2 days 05/29/18 19:00 Blood - Peripheral Anaerobic Blood Culture - Final QNS - See aerobic report. 05/29/18 19:00 Catheterized Urine Urine Culture - Final No growth in 48 hours 05/25/18 11:52 Blood - Peripheral Aerobic Blood Culture - Final No growth in 5 days 05/25/18 11:52 Blood - Peripheral Anaerobic Blood Culture - Final No growth in 5 days 05/25/18 11:59 Blood - Peripheral Aerobic Blood Culture - Final No growth in 5 days 05/25/18 11:59 Blood - Peripheral Anaerobic Blood Culture - Final No growth in 5 days 05/29/18 23:30 Sputum - Tracheal Aspirate Gram Stain - Final Assessment and Plan - Assessment (1) Pneumonia Code(s): J18.9 - Pneumonia, unspecified organism Status: Acute (2) GERD (gastroesophageal reflux disease) Code(s): K21.9 - Gastro-esophageal reflux disease without esophagitis Status: Chronic (3) DVT (deep venous thrombosis) Code(s): I82.409 - Acute embolism and thrombosis of unspecified deep veins of unspecified lower extremity Status: Acute (4) Hypothyroidism Code(s): E03.9 - Hypothyroidism, unspecified Status: Chronic (5) Laryngeal squamous cell carcinoma Code(s): C32.9 - Malignant neoplasm of larynx, unspecified Status: Chronic (6) Protein-calorie malnutrition, severe Code(s): E43 - Unspecified severe protein-calorie malnutrition Status: Chronic - Plan This is a 73-year-old female with 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 The rapid response was called and the patient was transferred to ICU where she was placed on 60% oxygenation via trach collar. CCM reconsulted 05/23 due to hypotension. Currently managed for recurrent respiratory infections with MDRO managed by ID. CT chest does demonstrate a moderate left pleural effusion with left lower lobe atelectasis s/p thoracocentesis. Patient was again sent over to the ICU on 05/29 for acute pulmonary edema with further fever spikes. Patient underwent good diuresis and was made a no code, was eventually stabilized and transition back to hospitalist care. History of squamous cell carcinoma of the larynx now status post tracheostomy due to recurrent aspiration Spiculated right upper lobe pulmonary nodule, multiple R pulmonary nodules Pulmonary edema -Bronchodilators, -Pulmonology following, Dr. Chari CAMACHO following, Dr. Canchola. -Abx per ID for MDRO -Monitor for signs of infections ( Fever, WBC) -05/22 Sputum cx: Pseudomonas MDR -05/25 Urine cx: Pseudomonas MDR -Currently on meropenem Hypomagnesemia - 1.3, replacing and rechecking yaniv DVT right lower extremity on ultrasound 03/27/18 -Lovenox weight based pending stable plts -s/p transfusion 3u PRBC on 05/25 thrombocytopenia - f/u hep plt ab to r/o HIT GERD -Prevacid per G-tube daily Gastroparesis Chronic moderate protein energy malnutrition -G tube to gravity. Continuous tube feeds with Vital 1.5 @ 55 ml/hr via J tube. Azithromycin for gastric motility. -Local wound care with bacitracin to G J-tube site. Hypothyroidism -Continue Synthroid per G-tube daily CKD stage III -Vitamin C supplementation -Monitor renal function, I/O's, electrolytes replacement per protocol. -Diurese as needed Depression/anxiety -Continue Lexapro per G-tube daily. Continue Wellbutrin -Klonopin 0.5 mg per G-tube Lortab as needed for pain. Lovenox (4) Hypothyroidism Qualifiers: Hypothyroidism type: unspecified Qualified Code(s): E03.9 - Hypothyroidism, unspecified
--- NOTE | 2018-05-31 12:37 | ECG ---
Date Performed: 05/30/2018 Time Performed: 10:11:12 PTAGE: 73 years EKG: Supraventricular tachycardia with heart rate of 136 with P-waves not easily identified. Thi s may be accelerated junctional vs. some other supraventricular tachycardia Left axis deviation Gener alized low voltage Compared to previous tracing, heart rate has gone from 128 to 136. Previous tracin g also had difficult to identify P-waves and there is no significant change in these two tracings. Ab normal ECG PREVIOUS TRACING : 05/29/2018 10.22 DOCTOR: Cornel Knight Interpretating Date/Time 05/31/2018 12:35:43
--- NOTE | 2018-05-31 12:47 | P.DIET ---
Nutritional Evaluation Type of nutrition evaluation: follow-up Nutrition consult regarding: Tube Feeding Subjective Subjective Comments: Transferred from [place] with hypoxemic respiratory failure. Has trach/PEG. Objective - Diagnosis Respiratory Failure - Objective % IBW: 99 (IBW = 120#) Body Weight Used for Calculations: Actual (54.1 kg) Energy Needs - Lower Range (kCal/kg): 28 Energy Needs - Upper Range (kCal/kg): 32 Lower Limit kCal/kg (kCals): 1,515 Upper Limit kCal/kg (kCals): 1,731 Lower Limit Protein Factor (Grams per Kg): 1.2 Upper Limit Protein Factor (Grams per Kg): 1.5 Lower Protein Needs (Protein): 65 Upper Protein Needs (Protein): 81 Dietitian Reviewed in Medical Record: Curent medications, Intake & Output, Labs , Medical history, Tube feeding Diet Order: NPO Objective Comments: Meds include Vit C, levsin, lactinex, synthroid, reglan, MVI, Zinc 220 03/19 esophagogastroduodenoscopy with esphageal dilation 03/21 panendoscopy Assessment Assessment: Pt. transferred to [facility] due to hypotension with SBP 80/40. Wt. continues to fluctuates. Pt. with +BM and UOP. Recommend current TF of Vital 1.5 with goal rate of 55 mls/hr x 22 hours. Pt. continues on synthroid QD. Continue to monitor TFing, stool, wt. and labs. Recommendations: 1. Recommend current TF of Vital 1.5 with goal rate of 55 mls/hr x 22 hours. 2. Continue to monitor TFing, stool, wt. and labs. Dietitian to Monitor: Lab values, Intake & Output, Tube feeding tolerance, Weight change, Medical course
--- NOTE | 2018-05-31 16:57 | P.PNID ---
Subjective Remarks: remains on Tpiece belkis amount of secrertions sputum clx growing GNBs BC NGDT urine clx neg - final Antibiotics: vabomere Past Medical History: lung ca Allergies/Adverse Reactions: Allergies epinephrine Allergy (Severe, Verified 02/21/18 08:40) TACHYCARDIA penicillin G Allergy (Severe, Verified 02/21/18 08:40) Hives peanut Allergy (Intermediate, Verified 02/21/18 08:40) ANAPHYLAXIS legumes Allergy (Unknown, Verified 03/06/18 21:48) Anaphylaxis UNKNOWN soy Allergy (Verified 03/06/18 21:45) Rash UNKNOWN Objective Vital Signs 05/30/18 16:55 05/30/18 17:00 05/30/18 17:05 Temperature Pulse Rate 88 89 89 Respiratory Rate 27 H 28 H 29 H Blood Pressure 117/56 L 111/53 L 112/56 L Pulse Oximetry 98 98 98 05/30/18 17:10 05/30/18 17:15 05/30/18 17:20 Temperature Pulse Rate 102 H 101 H 100 H Respiratory Rate 33 H 27 H 29 H Blood Pressure 114/53 L 116/55 L 116/57 L Pulse Oximetry 96 98 97 05/30/18 17:25 05/30/18 17:30 05/30/18 17:35 Temperature Pulse Rate 129 H 132 H 132 H Respiratory Rate 27 H 28 H 28 H Blood Pressure 99/54 L 109/57 L 115/58 L Pulse Oximetry 98 97 97 05/30/18 17:40 05/30/18 17:45 05/30/18 17:50 Temperature Pulse Rate 132 H 131 H 132 H Respiratory Rate 31 H 35 H 31 H Blood Pressure 110/56 L 106/57 L 108/55 L Pulse Oximetry 96 96 95 05/30/18 17:55 05/30/18 18:00 05/30/18 18:05 Temperature Pulse Rate 133 H 135 H 133 H Respiratory Rate 38 H 38 H 30 H Blood Pressure 105/54 L 126/61 112/54 L Pulse Oximetry 95 96 96 05/30/18 18:30 05/30/18 19:45 05/30/18 20:00 Temperature 98.4 F Pulse Rate 112 H 127 H Respiratory Rate 26 H 20 22 Blood Pressure 95/50 L Pulse Oximetry 100 96 05/30/18 22:00 05/31/18 00:00 05/31/18 02:00 Temperature 98.2 F Pulse Rate 126 H 126 H 128 H Respiratory Rate 31 H Blood Pressure 102/54 L Pulse Oximetry 93 L 05/31/18 04:00 05/31/18 06:00 05/31/18 07:44 Temperature 98 F Pulse Rate 124 H 124 H 87 Respiratory Rate 32 H 24 Blood Pressure 106/55 L Pulse Oximetry 94 L 95 05/31/18 08:00 05/31/18 10:00 05/31/18 11:41 Temperature 98.8 F Pulse Rate 88 70 70 Respiratory Rate 27 H 22 Blood Pressure 115/56 L Pulse Oximetry 05/31/18 12:00 05/31/18 14:00 05/31/18 15:16 Temperature Pulse Rate 71 82 84 Respiratory Rate 22 26 H Blood Pressure 114/51 L Pulse Oximetry 95 05/31/18 16:00 Temperature Pulse Rate 72 Respiratory Rate 21 Blood Pressure 110/55 L Pulse Oximetry 97 Intake & Output 05/30/18 05/31/18 05/31/18 18:59 06:59 18:59 Intake Total 1441 / 1441 1031 / 1031 600 / 600 Output Total 1400 / 1400 1300 / 1300 Balance 41 / 41 -269 / -269 600 / 600 Weight 63.1 kg Intake: IV 500 / 500 250 / 250 600 / 600 Magnesium Sulfate Inj 2 GM In 100 / 100 NS Inj 96 ML @ 50 mls/hr IV.SIG ONCE ONE Rx#:[id number] Vabomere Inj 2,000 MG In NS Inj 500 / 500 250 / 250 500 / 500 250 ML @ 83.333 mls/hr IV.SIG Q8H [facility] Rx#:[id number] Tube Feeding 441 / 441 581 / 581 Water Bolus Amount 500 / 500 200 / 200 Output: Urine Amount (Catheter) 1400 / 1400 1300 / 1300 Indwelling Urethral Catheter 1400 / 1400 1300 / 1300 Other: Date of Last Bowel Movement 05/29/18 05/31/18 05/29/18 # Bowel Movements 1 05/29/18 23:30 Sputum - Tracheal Aspirate Gram Stain - Final 05/29/18 23:30 Sputum - Tracheal Aspirate Sputum Culture - Preliminary gram negative rods 05/29/18 18:50 Blood - Peripheral Aerobic Blood Culture - Preliminary No growth in 2 days 05/29/18 18:50 Blood - Peripheral Anaerobic Blood Culture - Preliminary No growth in 2 days 05/29/18 19:00 Blood - Peripheral Aerobic Blood Culture - Preliminary No growth in 2 days 05/29/18 19:00 Blood - Peripheral Anaerobic Blood Culture - Final QNS - See aerobic report. 05/29/18 19:00 Catheterized Urine Urine Culture - Final No growth in 48 hours 05/25/18 11:52 Blood - Peripheral Aerobic Blood Culture - Final No growth in 5 days 05/25/18 11:52 Blood - Peripheral Anaerobic Blood Culture - Final No growth in 5 days 05/25/18 11:59 Blood - Peripheral Aerobic Blood Culture - Final No growth in 5 days 05/25/18 11:59 Blood - Peripheral Anaerobic Blood Culture - Final No growth in 5 days Lab - Hematology Results 05/30/18 05/31/18 03:34 05:20 WBC 3.0 L 4.1 RBC 3.15 L 3.44 L Hgb 9.4 L 10.2 L Hct 27.9 L 30.5 L MCV 88.7 88.7 MCH 29.8 29.6 MCHC 33.7 33.4 RDW 15.2 14.9 Plt Count 63 L 71 L MPV 10.8 10.8 Prelim Diff (Auto) Manual diff required Slide review pending WBC Differential Manual diff final Manual diff final Seg Neuts % (Manual) 54 58 Band Neuts % (Manual) 10 H 15 H Lymphocytes % (Manual) 29 7 L Monocytes % (Manual) 2 6 Eosinophils % (Manual) 4 5 H Basophils % (Manual) 1 Metamyelocytes % (Man) 1 Myelocytes % (Man) 5 H Blast Cells % (Manual) 3 H Abs Neuts (Manual) 1.9 3.2 Differential Comment . . Toxic Granulation 1+ H Toxic Vacuolation Present H Platelet Estimate Low L Low L Platelet Morphology Enlarged H Enlarged H Ovalocytes 1+ H 1+ H [place] Cells 1+ H Acanthocytes (Spur) 1+ H Lab - Chemistry Results 05/29/18 05/30/18 05/31/18 10:50 03:34 05:20 Sodium 144 139 Potassium 3.8 4.2 Chloride 105 105 Carbon Dioxide 24.5 23.7 Anion Gap 15 10 BUN 43 H 50 H Creatinine 1.50 H 1.43 H Estimated GFR 34 L 36 L Random Glucose 123 H 115 H Calcium 6.6 L* 7.4 L* D Prot Corrected Calcium 7.7 L 8.4 L Phosphorus 3.7 2.6 D Magnesium 1.5 1.3 L Total Bilirubin 0.3 0.3 AST 14 L 17 ALT 15 16 Alkaline Phosphatase 79 91 B-Natriuretic Peptide 565 H Total Protein 4.9 L 5.3 L Albumin 1.6 L 1.7 L Imaging: ITS Impressions Abdomen/Bladder Ultrasound 05/06/18 00:00 CONCLUSION: 1. Increased renal echogenicity characteristic of medical renal disease. Small cyst right kidney. Dependent debris in the bladder. Tube Check 05/20/18 00:00 CONCLUSION: 1. Uncomplicated tube injection as above. The gastrojejunostomy tube is in good position. If there is concern for duodenal stricture resulting in a functional obstruction consideration could be made to the administration of barium either orally or through the gastric lumen of the tube to assess for any obstruction. Thin iodinated contrast would be limited in trying to assess this. Upper GI Series 05/21/18 00:00 CONCLUSION: No evidence of gastric outlet or duodenal obstruction. Abdomen/Pelvis CT 05/22/18 00:00 CONCLUSION: 1. Diverticulosis without perceptible diverticulitis or other acute inflammatory changes. 2. The gastrojejunostomy tube appears appropriately positioned. No perceptible associated acute complication. 3. There are scattered tiny nonobstructing stones of both kidneys and a small cyst on the right. 4. Small sliding-type hiatal hernia again seen. Chest CT 05/22/18 16:12 CONCLUSION: 1. Moderate left pleural effusion with atelectasis of the left lower lobe. 2. Mild right base atelectasis, improved compared to prior CT. 3. Right upper lobe pulmonary nodules are stable but the larger one remains concerning for primary bronchogenic carcinoma. Chest Ultrasound 05/23/18 00:00 CONCLUSION: 1. Lastly 360 cc of pleural effusion on the left. This does not appear loculated or complex. Site was marked Thoracentesis Ultrasound 05/23/18 00:00 CONCLUSION: Uncomplicated ultrasound-guided left chest thoracentesis as above. Extremity Arterial Study 05/24/18 00:00 CONCLUSION: 1. Severe reduction of the ABIs bilaterally. Abdomen X-Ray 05/26/18 00:00 CONCLUSION: 1. GJ tube appears to be in appropriate position with distal end of the jejunal feeding tube in the left upper quadrant. 2. Persistent pleural-parenchymal opacity at the left lung base. Chest CTA 05/26/18 00:00 CONCLUSION: 1. No evidence for pulmonary embolism. 2. Bibasilar consolidation. 3. Prominent nodule in the right upper lobe again seen measuring 13 mm concerning for malignancy. 4. Patchy opacities in the lingula and left lower lobe likely infectious. Venous Doppler Study 05/30/18 00:00 CONCLUSION: Significant interval recanalization of prior extensive right leg DVT Left leg remains normal in appearance. Chest X-Ray 05/30/18 07:29 CONCLUSION: Interval improvement. Less interstitial edema. Trach tube in good position. Physical Exam: GENERAL: NAD thin chronically ill apperaing SKIN: Warm and dry. NO rash HEAD: Atraumatic. Normocephalic. EYES: Pupils equal and round. No scleral icterus. No injection or drainage. ENT: No nasal bleeding or discharge. Mucous membranes pink and moist. NECK: Trach in place, site OK CARDIOVASCULAR: Regular rate and rhythm. + murmur, holosystolic RESPIRATORY: No accessory muscle use. Less b/ crackles to auscultation. Breath sounds equal bilaterally. GASTROINTESTINAL: Abdomen soft, not tender in LLQ and mildly distended w/o guarding and rebound PEG in place MUSCULOSKELETAL: Extremities without clubbing, cyanosis, + some edema. No obvious deformities. NEUROLOGICAL: Lethargic but easily arousable asnd able to talk coherently . No obvious cranial nerve deficits. Motor grossly within normal limits. Five out of 5 muscle strength in the arms and legs. 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 PNA BLL, MDRO PSAE, Acinetobacter H&N cancer sp trach, PEG Diarrhea, neg for C.diff as of 05/25 Mild PEG infection vs irritation growing mixed andrew which is c/w contaminantion, including VRE New sepsis likley source pulmonary vs GI, less likely \ Colonised with multiple MDROs, including PSAE, VRE PEG site does not appear to be the source of infection and already looks better with topical bacitracin UTI, MDRO PDSAE: resolvd on tx with Avycaz Pt is critically ill, stable prognosis is poor due to underlying chronic issue agree with palliative care plan New PNA, GNB cont vabomere fu P sputum clx and adjust abx dw RN
--- NOTE | 2018-05-31 18:54 | P.PN ---
Subjective Interval history: Alert and on a T Bar at 30 % FIO2. has no SOB at rest. Trach secretions are thin. No fever. Physical Exam Vital signs: Vital Signs 05/30/18 19:45 05/30/18 20:00 05/30/18 22:00 Temperature 98.4 F Pulse Rate 112 H 127 H 126 H Respiratory Rate 20 22 Blood Pressure 95/50 L Pulse Oximetry 100 96 05/31/18 00:00 05/31/18 02:00 05/31/18 04:00 Temperature 98.2 F 98 F Pulse Rate 126 H 128 H 124 H Respiratory Rate 31 H 32 H Blood Pressure 102/54 L 106/55 L Pulse Oximetry 93 L 94 L 05/31/18 06:00 05/31/18 07:44 05/31/18 08:00 Temperature 98.8 F Pulse Rate 124 H 87 88 Respiratory Rate 24 27 H Blood Pressure 115/56 L Pulse Oximetry 95 05/31/18 10:00 05/31/18 11:41 05/31/18 12:00 Temperature Pulse Rate 70 70 71 Respiratory Rate 22 22 Blood Pressure 114/51 L Pulse Oximetry 95 05/31/18 14:00 05/31/18 15:16 05/31/18 16:00 Temperature Pulse Rate 82 84 72 Respiratory Rate 26 H 21 Blood Pressure 110/55 L Pulse Oximetry 97 05/31/18 18:00 Temperature Pulse Rate 72 Respiratory Rate Blood Pressure Pulse Oximetry Intake & Output 05/30/18 05/31/18 05/31/18 18:59 06:59 18:59 Intake Total 1441 / 1441 1031 / 1031 1511 / 1511 Output Total 1400 / 1400 1300 / 1300 1000 / 1000 Balance 41 / 41 -269 / -269 511 / 511 Weight 63.1 kg Intake: IV 500 / 500 250 / 250 600 / 600 Magnesium Sulfate Inj 2 GM In 100 / 100 NS Inj 96 ML @ 50 mls/hr IV.SIG ONCE ONE Rx#:[id number] Vabomere Inj 2,000 MG In NS Inj 500 / 500 250 / 250 500 / 500 250 ML @ 83.333 mls/hr IV.SIG Q8H [facility] Rx#:[id number] Oral 50 / 50 Tube Feeding 441 / 441 581 / 581 581 / 581 Tube Irrigant 80 / 80 Water Bolus Amount 500 / 500 200 / 200 200 / 200 Other 0 / 0 Output: Urine 850 / 850 Stool 0 / 0 Urine/Stool Mix 0 / 0 Emesis 0 / 0 Urine Amount (Catheter) 1400 / 1400 1300 / 1300 Indwelling Urethral Catheter 1400 / 1400 1300 / 1300 Gastric Drainage 150 / 150 Gastrojejunostomy Tube 150 / 150 Jejunostomy Tube 0 / 0 Other: # Voids 0 # Incontinent Voids 0 # Urine Diapers 0 Date of Last Bowel Movement 05/29/18 05/31/18 05/29/18 # Bowel Movements 1 1 # Incontinent Bowel Movements 1 Narrative: GENERAL:Frail elderly W/F pale and awake.On a Trch collar with Trach in place. SKIN: Warm and dry. HEAD: Normocephalic. EYES: No scleral icterus. No injection or drainage. NECK: Supple, trachea midline. No JVD or lymphadenopathy. CARDIOVASCULAR: Regular rate and rhythm without murmurs, gallops, or rubs. RESPIRATORY: Breath sounds equal bilaterally. Occ wheeze heard. No accessory muscle use. GASTROINTESTINAL: Abdomen soft, non-tender, nondistended. MUSCULOSKELETAL: No cyanosis, or edema. Has ecchymosis of limbs. BACK: Nontender without obvious deformity. No CVA tenderness. - Urinary Catheter Management Indwelling Urethral Catheter Cath placed during this visit: yes Reason for continuing: Acute urinary retention Insertion date: 05/25/18 Insertion time: 14:00 Results - Labs CBC & Chem 7: 05/31/18 05:20 05/31/18 05:20 Laboratory Results - last 24 hr 05/30/18 05/31/18 05/31/18 09:21 05:20 05:20 WBC 4.1 RBC 3.44 L Hgb 10.2 L Hct 30.5 L MCV 88.7 MCH 29.6 MCHC 33.4 RDW 14.9 Plt Count 71 L MPV 10.8 Prelim Diff (Auto) Slide review pending WBC Differential Manual diff final Seg Neuts % (Manual) 58 Band Neuts % (Manual) 15 H Lymphocytes % (Manual) 7 L Monocytes % (Manual) 6 Eosinophils % (Manual) 5 H Metamyelocytes % (Man) 1 Myelocytes % (Man) 5 H Blast Cells % (Manual) 3 H Abs Neuts (Manual) 3.2 Differential Comment . Toxic Granulation 1+ H Toxic Vacuolation Present H Platelet Estimate Low L Platelet Morphology Enlarged H Ovalocytes 1+ H Acanthocytes (Spur) 1+ H Sodium 139 Potassium 4.2 Chloride 105 Carbon Dioxide 23.7 Anion Gap 10 BUN 50 H Creatinine 1.43 H Estimated GFR 36 L Random Glucose 115 H Calcium 7.4 L* D Prot Corrected Calcium 8.4 L Phosphorus 2.6 D Magnesium 1.3 L Total Bilirubin 0.3 AST 17 ALT 16 Alkaline Phosphatase 91 Total Protein 5.3 L Albumin 1.7 L Heparin Dep Plt Ab OD 0.502 Hep-Induced Plt Ab Elissa Negative Microbiology 05/29/18 23:30 Sputum - Tracheal Aspirate Gram Stain - Final 05/29/18 23:30 Sputum - Tracheal Aspirate Sputum Culture - Preliminary gram negative rods 05/29/18 18:50 Blood - Peripheral Aerobic Blood Culture - Preliminary No growth in 2 days 05/29/18 18:50 Blood - Peripheral Anaerobic Blood Culture - Preliminary No growth in 2 days 05/29/18 19:00 Blood - Peripheral Aerobic Blood Culture - Preliminary No growth in 2 days 05/29/18 19:00 Blood - Peripheral Anaerobic Blood Culture - Final QNS - See aerobic report. 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 Cont T Collar at 30 % and wean to keep sat >92 2. Cont nebs with albuterol qid. PRN 3. PM valve daytime PRN to talk 4. Cont Levsin .125 mg qid prn. 5. Tube feeds at 55 CC. 6. Transfer to Rehab Floor. 7. Up in Chair as tolerated 8. Labs in am.
[2018-06-01] MEDS: SODIUM CHLOR 0.9% IV.SIG SCH ×3 (03:48→21:19)
[2018-06-01] MEDS: MEROPENEM VABORBACTAM IV.SIG SCH ×3 (03:48→21:19)
[2018-06-01] MEDS: Hyoscyamine Liq Drops 0.125 MG/ML 15 ML Bottle SL SCH ×4 (03:49→21:25)
[2018-06-01 08:01] LABS: Hematocrit 27.8 % (35.0-46.0); Hemoglobin 9.5 gm/dL (11.6-15.3); Mean Corpuscular HGB Conc 34.1 % (32.0-36.0); Mean Platelet Volume 10.7 fL (7.0-11.0); Platelet Count 58 th/mm3 (150-450); Red Blood Count 3.15 mil/mm3 (4.00-5.30); Red Cell Distribution Width 14.7 % (11.6-17.2); White Blood Count 2.9 th/mm3 (4.0-11.0)
[2018-06-01 08:27] LABS: Albumin 1.7 g/dL (3.4-5.0); Calcium 7.3 mg/dL (8.5-10.1); Carbon Dioxide 26.4 meq/L (21.0-32.0); Magnesium 1.6 mg/dL (1.5-2.5); Potassium 3.9 meq/L (3.5-5.1); Total Protein 5.2 g/dL (6.4-8.2)
[2018-06-01 09:02] LABS: Blast Cells 3 % (0-0); Eosinophils 8 % (0-4); Lymphocytes 31 % (9-44); Monocytes 13 % (0-8); Myelocytes 1 % (0-0); Ovalocytes 1+
[2018-06-01] MEDS: Lactobacillus Acidophilus/L. Spores Tablet J-TUBE SCH ×3 (09:09→17:25)
[2018-06-01] MEDS: Levothyroxine 150 MCG Tablet J-TUBE SCH (09:09)
[2018-06-01] MEDS: Ascorbic Acid 500 MG Tablet J-TUBE SCH ×2 (09:10→21:21)
[2018-06-01] MEDS: buPROPion 75 MG Tablet J-TUBE SCH ×2 (09:10→21:20)
[2018-06-01] MEDS: Sodium Chloride 0.9% 2 ML Flush BID IV.FLUSH SCH ×2 (09:10→21:21)
--- NOTE | 2018-06-01 12:20 | P.PNPOD ---
Subjective Interval history: Patient seen bedside. Resting comfortably. Denies any pain to right hallux. Physical Exam Vital signs: Vital Signs 05/31/18 14:00 05/31/18 15:16 05/31/18 16:00 Temperature Pulse Rate 82 84 72 Respiratory Rate 26 H 21 Blood Pressure 110/55 L Pulse Oximetry 97 05/31/18 18:00 05/31/18 20:00 05/31/18 21:23 Temperature 96.6 F L Pulse Rate 72 71 72 Respiratory Rate 20 18 Blood Pressure 120/67 Pulse Oximetry 94 L 92 L 06/01/18 00:00 06/01/18 00:16 06/01/18 04:00 Temperature 96.3 F L 96.6 F L Pulse Rate 84 83 73 Respiratory Rate 20 17 20 Blood Pressure 110/53 L 120/60 Pulse Oximetry 95 97 06/01/18 04:29 06/01/18 07:41 06/01/18 09:29 Temperature 96.8 F L Pulse Rate 79 72 83 Respiratory Rate 18 20 20 Blood Pressure 122/60 Pulse Oximetry 98 06/01/18 11:40 Temperature Pulse Rate 72 Respiratory Rate 18 Blood Pressure Pulse Oximetry Intake & Output 05/31/18 06/01/18 06/01/18 18:59 06:59 18:59 Intake Total 1511 / 1511 1450 / 1450 Output Total 1000 / 1000 1600 / 1600 Balance 511 / 511 -150 / -150 Weight 60.2 kg Intake: IV 600 / 600 250 / 250 Magnesium Sulfate Inj 2 GM In 100 / 100 NS Inj 96 ML @ 50 mls/hr IV.SIG ONCE ONE Rx#:[id number] Vabomere Inj 2,000 MG In NS Inj 500 / 500 250 / 250 250 ML @ 83.333 mls/hr IV.SIG Q8H [facility] Rx#:[id number] Oral 50 / 50 100 / 100 Tube Feeding 581 / 581 600 / 600 Tube Irrigant 80 / 80 Water Bolus Amount 200 / 200 500 / 500 Other 0 / 0 Output: Urine 850 / 850 Stool 0 / 0 Urine/Stool Mix 0 / 0 Emesis 0 / 0 0 / 0 Urine Amount (Catheter) 1350 / 1350 Indwelling Urethral Catheter 1350 / 1350 Gastric Drainage 150 / 150 250 / 250 Gastrojejunostomy Tube 150 / 150 250 / 250 Jejunostomy Tube 0 / 0 0 / 0 Other: # Voids 0 # Incontinent Voids 0 # Urine Diapers 0 Date of Last Bowel Movement 05/29/18 05/29/18 05/29/18 # Bowel Movements 1 # Incontinent Bowel Movements 1 Narrative: Decreased erythema and edema noted to medial border of right hallux when compared to previous examination. No tenderness on palpation to right hallux medial border. Medications and Allergies Active Medications: Active Medications Acetaminophen (Tylenol) 650 mg J-TUBE Q4H PRN PRN Reason: ELEVATED TEMP/HEADACHE Last Admin: 05/28/18 20:42 Dose: 650 mg Acetaminophen (Tylenol) 650 mg G-TUBE Q4H PRN PRN Reason: SEE LABEL COMMENTS Hydrocodone Bitart/Acetaminophen ([place] 5/325) 1 tab J-TUBE Q4H PRN PRN Reason: PAIN 2-5 Last Admin: 05/31/18 06:01 Dose: 1 tab Hydrocodone Bitart/Acetaminophen ([place] 5/325) 2 tab J-TUBE Q4H PRN PRN Reason: PAIN 6-10 Last Admin: 05/31/18 21:55 Dose: 2 tab Al Hydroxide/Mg Hydroxide (Milk Of Magnelle Liq) 30 ml J-TUBE Q12H PRN PRN Reason: Mild Constipation Albuterol (Duoneb Neb (Prn)) 1 ampul NEB Q2HR NEB PRN PRN Reason: WHEEZING Last Admin: 05/29/18 12:19 Dose: 1 ampul Albuterol (Duoneb Neb (Ann)) 1 ampul NEB Q4HR NEB ANN Last Admin: 06/01/18 11:38 Dose: 1 ampul Ascorbic Acid (Vitamin C) 500 mg J-TUBE BID ANN Last Admin: 06/01/18 09:10 Dose: 500 mg Bisacodyl (Dulcolax Supp) 10 mg RECTAL DAILY PRN PRN Reason: SEVERE CONSITIPATION Bupropion HCl (Wellbutrin) 150 mg J-TUBE BID ANN Last Admin: 06/01/18 09:10 Dose: 150 mg Cetirizine HCl (Zyrtec) 10 mg J-TUBE HS ANN Last Admin: 05/31/18 21:54 Dose: 10 mg Clonazepam (Klonopin) 0.5 mg G-TUBE Q8HR PRN PRN Reason: ANXIETY Last Admin: 05/24/18 17:22 Dose: 0.5 mg Diphenhydramine HCl (Benadryl) 25 mg J-TUBE Q4H PRN PRN Reason: ITCHING Last Admin: 05/09/18 09:07 Dose: 25 mg Diphenhydramine HCl (Benadryl) 25 mg G-TUBE Q4H PRN PRN Reason: SEE LABEL COMMENTS Enoxaparin Sodium (Lovenox Inj) 60 mg SQ Q24H [facility] Last Admin: 05/30/18 00:15 Dose: 60 mg Escitalopram Oxalate (Lexapro) 20 mg J-TUBE DAILY [facility] Last Admin: 06/01/18 09:09 Dose: 20 mg Glycopyrrolate (Robinul Inj) 0.4 mg IV.PUSH Q8H PRN PRN Reason: THICK SECRETIONS Last Admin: 05/29/18 09:40 Dose: 0.4 mg Hyoscyamine (Levsin Liq) 0.125 mg SL Q6H [facility] Last Admin: 06/01/18 03:49 Dose: 0.125 mg Meropenem 2,000 mg/ Sodium (Chloride) 250 mls @ 83.333 mls/hr IV.SIG Q8H [facility] Last Admin: 06/01/18 03:48 Dose: 88.33 mls/hr Lactobacillus Acidophilus (Lactinex) 1 tab J-TUBE TID [facility] Last Admin: 06/01/18 09:09 Dose: 1 tab Lansoprazole (Prevacid Solutab) 30 mg J-TUBE DAILY [facility] Last Admin: 06/01/18 09:10 Dose: 30 mg Levothyroxine Sodium (Synthroid) 150 mcg J-TUBE DAILY@0600 [facility] Last Admin: 06/01/18 09:09 Dose: 150 mcg Lidocaine HCl (Xylocaine 2% Viscous) 2.5 ml OROPHARYNG Q6H PRN PRN Reason: SEE LABEL COMMENTS Last Admin: 05/02/18 21:05 Dose: 2.5 ml Loperamide HCl (Imodium Liq) 2 mg J-TUBE PRN PRN PRN Reason: diarrhea Last Admin: 05/22/18 09:53 Dose: 2 mg Miscellaneous (Pill Splitter) 1 each OTHER UNSCH PRN PRN Reason: SEE LABEL COMMENTS Morphine Sulfate (Roxanol Liq) 5 mg SL Q4H PRN PRN Reason: BREAKTHROUGH pain 2-10 Last Admin: 05/29/18 16:08 Dose: 5 mg Multivitamins (Theragran) 1 tab J-TUBE DAILY [facility] Last Admin: 06/01/18 09:10 Dose: 1 tab Neomycin/Polymyxin/Bacitracin (Neosporin Oint) 0 applicatio TOPICAL DAILY [facility] Last Admin: 06/01/18 09:09 Dose: 1 applicatio Ondansetron HCl (Zofran Odt) 4 mg PO Q6H PRN PRN Reason: NAUSEA OR VOMITING Sennosides (Senokot) 17.2 mg J-TUBE Q12H PRN PRN Reason: Moderate Constipation Simethicone (Phazyme Chew) 125 mg J-TUBE Q4H PRN PRN Reason: RELATING TO BLOATING Last Admin: 05/29/18 09:41 Dose: 125 mg Sodium Chloride (Ns Flush) 2 ml IV.FLUSH BID [facility] Last Admin: 06/01/18 09:10 Dose: 2 ml Sodium Chloride (Ns Flush) 2 ml IV.FLUSH PRN PRN PRN Reason: FLUSH AFTER USING IV ACCESS Temazepam (Restoril) 15 mg J-TUBE HS PRN PRN Reason: INSOMNIA Last Admin: 05/16/18 20:17 Dose: 15 mg Zinc Oxide (Zinc Oxide 20% Oint) 1 applicatio TOPICAL BID [facility] Last Admin: 06/01/18 09:10 Dose: 1 applicatio Zinc Sulfate (Zinc-220) 220 mg J-TUBE DAILY [facility] Last Admin: 06/01/18 10:10 Dose: 220 mg Allergies Allergy/AdvReac Type Severity Reaction Status Date / Time epinephrine Allergy Severe TACHYCARDIA Verified 02/21/18 08:40 penicillin G Allergy Severe Hives Verified 02/21/18 08:40 peanut Allergy Intermediate ANAPHYLAXIS Verified 02/21/18 08:40 legumes Allergy Unknown Anaphylaxis Verified 03/06/18 21:48 soy Allergy Rash Verified 03/06/18 21:45 Home Medications Medication Instructions Recorded Confirmed Type cetirizine 10 mg PO HS 02/15/18 05/13/18 History escitalopram oxalate 20 mg FEEDING TUBE DAILY 02/15/18 05/13/18 History levothyroxine 100 mcg FEEDING TUBE DAILY 02/15/18 05/13/18 History ascorbic acid (vitamin C) 500 mg FEEDING TUBE BID 03/06/18 05/13/18 History multivitamin [Daily Multi-Vitamin] 1 tab FEEDING TUBE DAILY 03/06/18 05/13/18 History Results - Labs CBC & Chem 7: 06/01/18 07:40 06/01/18 07:40 Laboratory Results - last 24 hr 06/01/18 06/01/18 07:40 07:40 WBC 2.9 L RBC 3.15 L Hgb 9.5 L Hct 27.8 L MCV 88.0 MCH 30.0 MCHC 34.1 RDW 14.7 Plt Count 58 L MPV 10.7 Prelim Diff (Auto) Manual diff required WBC Differential Manual diff final Seg Neuts % (Manual) 40 Band Neuts % (Manual) 3 Lymphocytes % (Manual) 31 Monocytes % (Manual) 13 H Eosinophils % (Manual) 8 H Basophils % (Manual) 1 Myelocytes % (Man) 1 H Blast Cells % (Manual) 3 H Abs Neuts (Manual) 1.3 L Differential Comment . Platelet Estimate Low L Platelet Morphology Enlarged H Ovalocytes 1+ H Sodium 139 Potassium 3.9 Chloride 105 Carbon Dioxide 26.4 Anion Gap 8 BUN 48 H Creatinine 1.21 H Estimated GFR 44 L Random Glucose 91 Calcium 7.3 L* Prot Corrected Calcium 8.3 L Phosphorus 3.0 Magnesium 1.6 Total Bilirubin 0.3 AST 16 ALT 18 Alkaline Phosphatase 86 Total Protein 5.2 L Albumin 1.7 L Microbiology 05/29/18 18:50 Blood - Peripheral Aerobic Blood Culture - Preliminary No growth in 3 days 05/29/18 18:50 Blood - Peripheral Anaerobic Blood Culture - Preliminary No growth in 3 days 05/29/18 19:00 Blood - Peripheral Aerobic Blood Culture - Preliminary No growth in 3 days 05/29/18 19:00 Blood - Peripheral Anaerobic Blood Culture - Final QNS - See aerobic report. 05/29/18 23:30 Sputum - Tracheal Aspirate Gram Stain - Final 05/29/18 23:30 Sputum - Tracheal Aspirate Sputum Culture - Preliminary gram negative rods 05/29/18 19:00 Catheterized Urine Urine Culture - Final No growth in 48 hours Assessment and Plan - Assessment (1) Ingrown nail of great toe of right foot Code(s): L60.0 - Ingrowing nail Status: Acute - Plan 73-year-old female with right hallux medial border paronychia status post partial nail avulsion Recommend triple antibiotic with Band-Aid to right hallux medial border Improvement noted to right hallux medial border Please reconsult as needed
--- NOTE | 2018-06-01 14:11 | P.PN ---
Subjective Interval history: She is stable and on a T bar at 30 %. No fever. CT chest shows a 13 mm nodule in RUL. Physical Exam Vital signs: Vital Signs 05/31/18 15:16 05/31/18 16:00 05/31/18 18:00 Temperature Pulse Rate 84 72 72 Respiratory Rate 26 H 21 Blood Pressure 110/55 L Pulse Oximetry 97 05/31/18 20:00 05/31/18 21:23 06/01/18 00:00 Temperature 96.6 F L 96.3 F L Pulse Rate 71 72 84 Respiratory Rate 20 18 20 Blood Pressure 120/67 110/53 L Pulse Oximetry 94 L 92 L 95 06/01/18 00:16 06/01/18 04:00 06/01/18 04:29 Temperature 96.6 F L Pulse Rate 83 73 79 Respiratory Rate 17 20 18 Blood Pressure 120/60 Pulse Oximetry 97 06/01/18 07:41 06/01/18 09:29 06/01/18 11:40 Temperature 96.8 F L Pulse Rate 72 83 72 Respiratory Rate 20 20 18 Blood Pressure 122/60 Pulse Oximetry 98 06/01/18 12:00 Temperature 97.3 F L Pulse Rate 78 Respiratory Rate 20 Blood Pressure 121/67 Pulse Oximetry Intake & Output 05/31/18 06/01/18 06/01/18 18:59 06:59 18:59 Intake Total 1511 / 1511 1700 / 1700 Output Total 1000 / 1000 1600 / 1600 Balance 511 / 511 100 / 100 Weight 60.2 kg Intake: IV 600 / 600 500 / 500 Magnesium Sulfate Inj 2 GM In 100 / 100 NS Inj 96 ML @ 50 mls/hr IV.SIG ONCE ONE Rx#:[id number] Vabomere Inj 2,000 MG In NS Inj 500 / 500 500 / 500 250 ML @ 83.333 mls/hr IV.SIG Q8H [facility] Rx#:[id number] Oral 50 / 50 100 / 100 Tube Feeding 581 / 581 600 / 600 Tube Irrigant 80 / 80 Water Bolus Amount 200 / 200 500 / 500 Other 0 / 0 Output: Urine 850 / 850 Stool 0 / 0 Urine/Stool Mix 0 / 0 Emesis 0 / 0 0 / 0 Urine Amount (Catheter) 1350 / 1350 Indwelling Urethral Catheter 1350 / 1350 Gastric Drainage 150 / 150 250 / 250 Gastrojejunostomy Tube 150 / 150 250 / 250 Jejunostomy Tube 0 / 0 0 / 0 Other: # Voids 0 # Incontinent Voids 0 # Urine Diapers 0 Date of Last Bowel Movement 05/29/18 05/29/18 05/29/18 # Bowel Movements 1 # Incontinent Bowel Movements 1 Narrative: GENERAL:Frail elderly W/F pale and awake.On a Trach collar with Trach in place. SKIN: Warm and dry. HEAD: Normocephalic. EYES: No scleral icterus. No injection or drainage. NECK: Supple, trachea midline. No JVD or lymphadenopathy. CARDIOVASCULAR: Regular rate and rhythm without murmurs, gallops, or rubs. RESPIRATORY: Breath sounds equal bilaterally. Occ basal crackles heard. No accessory muscle use. GASTROINTESTINAL: Abdomen soft, non-tender, nondistended. MUSCULOSKELETAL: No cyanosis, or edema. Has ecchymosis of limbs. BACK: Nontender without obvious deformity. No CVA tenderness. - Urinary Catheter Management Indwelling Urethral Catheter Cath placed during this visit: yes Reason for continuing: Acute urinary retention Insertion date: 05/25/18 Insertion time: 14:00 Results - Labs CBC & Chem 7: 06/01/18 07:40 06/01/18 07:40 Laboratory Results - last 24 hr 06/01/18 06/01/18 07:40 07:40 WBC 2.9 L RBC 3.15 L Hgb 9.5 L Hct 27.8 L MCV 88.0 MCH 30.0 MCHC 34.1 RDW 14.7 Plt Count 58 L MPV 10.7 Prelim Diff (Auto) Manual diff required WBC Differential Manual diff final Seg Neuts % (Manual) 40 Band Neuts % (Manual) 3 Lymphocytes % (Manual) 31 Monocytes % (Manual) 13 H Eosinophils % (Manual) 8 H Basophils % (Manual) 1 Myelocytes % (Man) 1 H Blast Cells % (Manual) 3 H Abs Neuts (Manual) 1.3 L Differential Comment . Platelet Estimate Low L Platelet Morphology Enlarged H Ovalocytes 1+ H Sodium 139 Potassium 3.9 Chloride 105 Carbon Dioxide 26.4 Anion Gap 8 BUN 48 H Creatinine 1.21 H Estimated GFR 44 L Random Glucose 91 Calcium 7.3 L* Prot Corrected Calcium 8.3 L Phosphorus 3.0 Magnesium 1.6 Total Bilirubin 0.3 AST 16 ALT 18 Alkaline Phosphatase 86 Total Protein 5.2 L Albumin 1.7 L Microbiology 05/29/18 23:30 Sputum - Tracheal Aspirate Gram Stain - Final 05/29/18 23:30 Sputum - Tracheal Aspirate Sputum Culture - Preliminary gram negative rods 05/29/18 18:50 Blood - Peripheral Aerobic Blood Culture - Preliminary No growth in 3 days 05/29/18 18:50 Blood - Peripheral Anaerobic Blood Culture - Preliminary No growth in 3 days 05/29/18 19:00 Blood - Peripheral Aerobic Blood Culture - Preliminary No growth in 3 days 05/29/18 19:00 Blood - Peripheral Anaerobic Blood Culture - Final QNS - See aerobic report. 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 Cont T Collar at 30 % and wean to keep sat >92 2. Cont nebs with albuterol qid. PRN 3. PM valve daytime PRN to talk 4. Cont Levsin .125 mg qid prn. 5. Tube feeds at 60 CC. 6. DNR status per family and patient 7. Up in Chair as tolerated 8. Antibiotics per ID
--- NOTE | 2018-06-01 16:05 | P.PN ---
Subjective Interval history: Patient seen and examined. PM valve in place. Her brother is at the bedside visiting. She is frustrated she did not have a PICC line placed. She says her breathing is good. She says her secretions are better. She denies any fever or chills. She denies any nausea, vomiting or abdominal pain. [facility] nursing staff , no adverse events noted overnight. Physical Exam Vital signs: Vital Signs 05/31/18 16:00 05/31/18 18:00 05/31/18 20:00 Temperature 96.6 F L Pulse Rate 72 72 71 Respiratory Rate 21 20 Blood Pressure 110/55 L 120/67 Pulse Oximetry 97 94 L 05/31/18 21:23 06/01/18 00:00 06/01/18 00:16 Temperature 96.3 F L Pulse Rate 72 84 83 Respiratory Rate 18 20 17 Blood Pressure 110/53 L Pulse Oximetry 92 L 95 06/01/18 04:00 06/01/18 04:29 06/01/18 07:41 Temperature 96.6 F L 96.8 F L Pulse Rate 73 79 72 Respiratory Rate 20 18 20 Blood Pressure 120/60 122/60 Pulse Oximetry 97 06/01/18 09:29 06/01/18 11:40 06/01/18 12:00 Temperature 97.3 F L Pulse Rate 83 72 78 Respiratory Rate 20 18 20 Blood Pressure 121/67 Pulse Oximetry 98 Intake & Output 05/31/18 06/01/18 06/01/18 18:59 06:59 18:59 Intake Total 1511 / 1511 1700 / 1700 Output Total 1000 / 1000 1600 / 1600 Balance 511 / 511 100 / 100 Weight 60.2 kg Intake: IV 600 / 600 500 / 500 Magnesium Sulfate Inj 2 GM In 100 / 100 NS Inj 96 ML @ 50 mls/hr IV.SIG ONCE ONE Rx#:[id number] Vabomere Inj 2,000 MG In NS Inj 500 / 500 500 / 500 250 ML @ 83.333 mls/hr IV.SIG Q8H [facility] Rx#:[id number] Oral 50 / 50 100 / 100 Tube Feeding 581 / 581 600 / 600 Tube Irrigant 80 / 80 Water Bolus Amount 200 / 200 500 / 500 Other 0 / 0 Output: Urine 850 / 850 Stool 0 / 0 Urine/Stool Mix 0 / 0 Emesis 0 / 0 0 / 0 Urine Amount (Catheter) 1350 / 1350 Indwelling Urethral Catheter 1350 / 1350 Gastric Drainage 150 / 150 250 / 250 Gastrojejunostomy Tube 150 / 150 250 / 250 Jejunostomy Tube 0 / 0 0 / 0 Other: # Voids 0 # Incontinent Voids 0 # Urine Diapers 0 Date of Last Bowel Movement 05/29/18 05/29/18 06/01/18 # Bowel Movements 1 # Incontinent Bowel Movements 1 Narrative: GENERAL: Thin, frail female patient, in no acute distress. Awake and alert. SKIN: Warm and dry. HEENT: Atraumatic. Normocephalic. Pupils equal and round. No scleral icterus. No injection or drainage. No nasal bleeding or discharge. Mucous membranes pink and moist. NECK: Trachea midline. Trach in place, PM valve in place. CARDIOVASCULAR: Regular rate and rhythm. RESPIRATORY: No accessory muscle use. Fair air entry. GASTROINTESTINAL: Abdomen soft, non-tender, nondistended. PEG in place. MUSCULOSKELETAL: Extremities without clubbing, cyanosis, or edema. No obvious deformities. NEUROLOGICAL: Awake and alert. No obvious cranial nerve deficits. Able to move all extremities spontaneously. Normal speech. PSYCHIATRIC: Appropriate mood and affect; calm and cooperative. - Urinary Catheter Management Indwelling Urethral Catheter Cath placed during this visit: yes Reason for continuing: Acute urinary retention Insertion date: 05/25/18 Insertion time: 14:00 Results - Labs CBC & Chem 7: 06/02/18 07:40 06/02/18 07:40 Laboratory Results - last 24 hr 06/01/18 06/01/18 07:40 07:40 WBC 2.9 L RBC 3.15 L Hgb 9.5 L Hct 27.8 L MCV 88.0 MCH 30.0 MCHC 34.1 RDW 14.7 Plt Count 58 L MPV 10.7 Prelim Diff (Auto) Manual diff required WBC Differential Manual diff final Seg Neuts % (Manual) 40 Band Neuts % (Manual) 3 Lymphocytes % (Manual) 31 Monocytes % (Manual) 13 H Eosinophils % (Manual) 8 H Basophils % (Manual) 1 Myelocytes % (Man) 1 H Blast Cells % (Manual) 3 H Abs Neuts (Manual) 1.3 L Differential Comment . Platelet Estimate Low L Platelet Morphology Enlarged H Ovalocytes 1+ H Sodium 139 Potassium 3.9 Chloride 105 Carbon Dioxide 26.4 Anion Gap 8 BUN 48 H Creatinine 1.21 H Estimated GFR 44 L Random Glucose 91 Calcium 7.3 L* Prot Corrected Calcium 8.3 L Phosphorus 3.0 Magnesium 1.6 Total Bilirubin 0.3 AST 16 ALT 18 Alkaline Phosphatase 86 Total Protein 5.2 L Albumin 1.7 L Microbiology 05/29/18 23:30 Sputum - Tracheal Aspirate Gram Stain - Final 05/29/18 23:30 Sputum - Tracheal Aspirate Sputum Culture - Preliminary gram negative rods 05/29/18 18:50 Blood - Peripheral Aerobic Blood Culture - Preliminary No growth in 3 days 05/29/18 18:50 Blood - Peripheral Anaerobic Blood Culture - Preliminary No growth in 3 days 05/29/18 19:00 Blood - Peripheral Aerobic Blood Culture - Preliminary No growth in 3 days 05/29/18 19:00 Blood - Peripheral Anaerobic Blood Culture - Final QNS - See aerobic report. Assessment and Plan - Assessment (1) Pneumonia Code(s): J18.9 - Pneumonia, unspecified organism Status: Acute (2) GERD (gastroesophageal reflux disease) Code(s): K21.9 - Gastro-esophageal reflux disease without esophagitis Status: Chronic (3) DVT (deep venous thrombosis) Code(s): I82.409 - Acute embolism and thrombosis of unspecified deep veins of unspecified lower extremity Status: Acute (4) Hypothyroidism Code(s): E03.9 - Hypothyroidism, unspecified Status: Chronic (5) Laryngeal squamous cell carcinoma Code(s): C32.9 - Malignant neoplasm of larynx, unspecified Status: Chronic (6) Protein-calorie malnutrition, severe Code(s): E43 - Unspecified severe protein-calorie malnutrition Status: Chronic - Plan 73-year-old female with 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 The rapid response was called and the patient was transferred to ICU where she was placed on 60% oxygenation via trach collar. [facility] reconsulted 05/23 due to hypotension. Currently managed for recurrent respiratory infections with MDRO managed by ID. CT chest does demonstrate a moderate left pleural effusion with left lower lobe atelectasis s/p thoracocentesis. Patient was again sent over to the ICU on 05/29 for acute pulmonary edema with further fever spikes. Patient underwent good diuresis and was made a no code, was eventually stabilized and transition back to hospitalist care. History of squamous cell carcinoma of the larynx now status post tracheostomy due to recurrent aspiration Spiculated right upper lobe pulmonary nodule, multiple R pulmonary nodules. Pulmonary edema -Continue on bronchodilator therapy -Pulmonology following, Dr. Marcelino MDRO PSAE persistent colonization PNA BLL, MDRO PSAE, Acinetobacter -ID following, Dr. Canchola. Currently on Meropenem. Patient requesting PICC line placement. -05/22 Sputum cx: Pseudomonas MDR -05/25 Urine cx: Pseudomonas MDR -05/29 Urine cx: No growth -05/29 BCX: no growth x 3 days -05/29 Sputum cx: +GNR Hypomagnesemia - 1.3, resolved s/p replacement DVT right lower extremity on ultrasound 03/27/18 Repeat doppler 05/30 shows significant interval recanalization of prior extensive RLE DVT -Lovenox weight based pending stable plts Pancytopenia, ?secondary to Merrem Thrombocytopenia - HIT neg - Consult Dr. Pineda who is familiar with patient, appreciate assistance GERD -Prevacid per G-tube daily Gastroparesis Chronic moderate protein energy malnutrition -G tube to gravity. Continuous tube feeds with Vital 1.5 @ 55 ml/hr via J tube. -Local wound care with bacitracin to G J-tube site. Hypothyroidism -Continue Synthroid per G-tube daily CKD stage III -Vitamin C supplementation -Monitor renal function, I/O's, electrolytes replacement per protocol. -Diurese as needed Depression/anxiety -Continue Lexapro per G-tube daily. Continue Wellbutrin -Klonopin 0.5 mg per G-tube [place] as needed for pain. Lovenox Code Status: DNR Discussed Condition With: patient, brother at bedside, nursing staff, Dr. Sullivan (4) Hypothyroidism Qualifiers: Hypothyroidism type: unspecified Qualified Code(s): E03.9 - Hypothyroidism, unspecified
[2018-06-02] MEDS: SODIUM CHLOR 0.9% IV.SIG SCH ×3 (03:18→22:17)
[2018-06-02] MEDS: MEROPENEM VABORBACTAM IV.SIG SCH ×3 (03:18→22:17)
[2018-06-02] MEDS: Hyoscyamine Liq Drops 0.125 MG/ML 15 ML Bottle SL SCH ×4 (06:00→22:40)
[2018-06-02] MEDS: Levothyroxine 150 MCG Tablet J-TUBE SCH (06:01)
[2018-06-02 08:08] LABS: Hematocrit 27.5 % (35.0-46.0); Hemoglobin 9.3 gm/dL (11.6-15.3); Mean Corpuscular HGB Conc 33.8 % (32.0-36.0); Mean Corpuscular Hemoglobin 29.9 pg (27.0-34.0); Mean Corpuscular Volume 88.2 fL (80.0-100.0); Mean Platelet Volume 11.1 fL (7.0-11.0); Platelet Count 68 th/mm3 (150-450); Red Blood Count 3.12 mil/mm3 (4.00-5.30); Red Cell Distribution Width 14.8 % (11.6-17.2); White Blood Count 2.7 th/mm3 (4.0-11.0)
[2018-06-02 08:33] LABS: Alanine Aminotransferase 21 U/L (10-53); Albumin 1.6 g/dL (3.4-5.0); Anion Gap 9 meq/L (5-15); Aspartate Aminotransferase 29 U/L (15-37); Blood Urea Nitrogen 41 mg/dL (7-18); Calcium 7.7 mg/dL (8.5-10.1); Carbon Dioxide 27.5 meq/L (21.0-32.0); Chloride 103 meq/L (98-107); Glomerular Filtration Rate 53 mL/min (>89); Glucose,Random 85 mg/dL (74-106); Magnesium 1.6 mg/dL (1.5-2.5); Phosphorus 3.3 mg/dL (2.5-4.9); Potassium 4.6 meq/L (3.5-5.1); Sodium 139 meq/L (136-145)
[2018-06-02 08:36] LABS: Alkaline Phosphatase 85 U/L (45-117); Total Protein 5.1 g/dL (6.4-8.2)
[2018-06-02 08:58] LABS: Blast Cells 1 % (0-0); Eosinophils 16 % (0-4); Lymphocytes 22 % (9-44); Monocytes 11 % (0-8); Myelocytes 4 % (0-0); Ovalocytes 1+
[2018-06-02] MEDS: Ascorbic Acid 500 MG Tablet J-TUBE SCH ×2 (09:03→22:17)
[2018-06-02] MEDS: buPROPion 75 MG Tablet J-TUBE SCH ×2 (09:04→22:17)
[2018-06-02] MEDS: Sodium Chloride 0.9% 2 ML Flush BID IV.FLUSH SCH ×2 (09:04→22:18)
[2018-06-02] MEDS: Lactobacillus Acidophilus/L. Spores Tablet J-TUBE SCH ×3 (09:04→18:00)
--- NOTE | 2018-06-02 13:13 | P.PN ---
Subjective Interval history: Patient complaining of nausea. She denies any vomiting but states she feels like she is going to. Her TF are on hold. She denies any fever or chills. She denies any chest pain or shortness of breath. She says her secretions are the same. She denies any abdominal pain. She does report some loose stools. Physical Exam Vital signs: Vital Signs 06/01/18 16:00 06/01/18 16:02 06/01/18 16:03 Temperature 97.7 F Pulse Rate 72 78 Respiratory Rate 20 20 Blood Pressure 124/68 Pulse Oximetry 98 06/01/18 19:36 06/01/18 20:00 06/01/18 23:38 Temperature 97.8 F Pulse Rate 82 74 77 Respiratory Rate 18 18 16 Blood Pressure 124/55 L Pulse Oximetry 94 L 06/02/18 00:00 06/02/18 03:45 06/02/18 04:00 Temperature 97.7 F 97.9 F Pulse Rate 72 82 72 Respiratory Rate 20 16 20 Blood Pressure 126/66 127/61 Pulse Oximetry 96 98 95 06/02/18 08:30 Temperature Pulse Rate 66 Respiratory Rate 20 Blood Pressure Pulse Oximetry 96 Intake & Output 06/01/18 06/02/18 06/02/18 18:59 06:59 18:59 Intake Total 1430 / 1430 1352 / 1352 Output Total 1150 / 1150 1700 / 1700 Balance 280 / 280 -348 / -348 Weight 60.8 kg Intake: IV 250 / 250 250 / 250 Vabomere Inj 2,000 MG In NS Inj 250 / 250 250 / 250 250 ML @ 83.333 mls/hr IV.SIG Q8H [facility] Rx#:[id number] Oral 100 / 100 Tube Feeding 550 / 550 555 / 555 Tube Irrigant 80 / 80 Water Bolus Amount 450 / 450 547 / 547 Other 0 / 0 Output: Urine 0 / 0 Stool 0 / 0 Urine/Stool Mix 0 / 0 Emesis 0 / 0 Urine Amount (Catheter) 900 / 900 1300 / 1300 Indwelling Urethral Catheter 900 / 900 1300 / 1300 Gastric Drainage 250 / 250 400 / 400 Gastrojejunostomy Tube 250 / 250 400 / 400 Jejunostomy Tube 0 / 0 Other: # Voids 0 # Incontinent Voids 0 # Urine Diapers 0 Date of Last Bowel Movement 06/01/18 06/01/18 # Bowel Movements 1 # Incontinent Bowel Movements 1 Narrative: GENERAL: Thin, frail female patient, in no acute distress. Awake and alert. SKIN: Warm and dry. HEENT: Atraumatic. Normocephalic. Pupils equal and round. No scleral icterus. No injection or drainage. No nasal bleeding or discharge. Mucous membranes pink and moist. NECK: Trachea midline. Trach in place, scant amount of secretions noted in tubing. CARDIOVASCULAR: Regular rate and rhythm. RESPIRATORY: No accessory muscle use. Fair air entry. Upper airway sounds. GASTROINTESTINAL: Abdomen soft, non-tender, nondistended. PEG in place. MUSCULOSKELETAL: Extremities without clubbing, cyanosis, or edema. No obvious deformities. +ingrown toenail right great toe, improving. NEUROLOGICAL: Awake and alert. No obvious cranial nerve deficits. Able to move all extremities spontaneously. Normal speech. PSYCHIATRIC: Appropriate mood and affect; calm and cooperative. - Urinary Catheter Management Indwelling Urethral Catheter Cath placed during this visit: yes Reason for continuing: Acute urinary retention Insertion date: 05/25/18 Insertion time: 14:00 Results - Labs CBC & Chem 7: 06/02/18 07:40 06/02/18 07:40 Laboratory Results - last 24 hr 06/02/18 06/02/18 07:40 07:40 WBC 2.7 L RBC 3.12 L Hgb 9.3 L Hct 27.5 L MCV 88.2 MCH 29.9 MCHC 33.8 RDW 14.8 Plt Count 68 L MPV 11.1 H Prelim Diff (Auto) Manual diff required WBC Differential Manual diff final Seg Neuts % (Manual) 39 Band Neuts % (Manual) 5 Lymphocytes % (Manual) 22 Monocytes % (Manual) 11 H Eosinophils % (Manual) 16 H Basophils % (Manual) 2 Myelocytes % (Man) 4 H Blast Cells % (Manual) 1 H Abs Neuts (Manual) 1.3 L Differential Comment . Platelet Estimate Low L Platelet Morphology Enlarged H Ovalocytes 1+ H Sodium 139 Potassium 4.6 Chloride 103 Carbon Dioxide 27.5 Anion Gap 9 BUN 41 H Creatinine 1.02 H Estimated GFR 53 L Random Glucose 85 Calcium 7.7 L Phosphorus 3.3 Magnesium 1.6 Total Bilirubin 0.3 AST 29 ALT 21 Alkaline Phosphatase 85 Total Protein 5.1 L Albumin 1.6 L Microbiology 05/29/18 18:50 Blood - Peripheral Aerobic Blood Culture - Preliminary No growth in 4 days 05/29/18 18:50 Blood - Peripheral Anaerobic Blood Culture - Preliminary No growth in 4 days 05/29/18 19:00 Blood - Peripheral Aerobic Blood Culture - Preliminary No growth in 4 days 05/29/18 19:00 Blood - Peripheral Anaerobic Blood Culture - Final QNS - See aerobic report. 05/29/18 23:30 Sputum - Tracheal Aspirate Gram Stain - Final 05/29/18 23:30 Sputum - Tracheal Aspirate Sputum Culture - Preliminary gram negative rods Assessment and Plan - Assessment (1) Pneumonia Code(s): J18.9 - Pneumonia, unspecified organism Status: Acute (2) GERD (gastroesophageal reflux disease) Code(s): K21.9 - Gastro-esophageal reflux disease without esophagitis Status: Chronic (3) DVT (deep venous thrombosis) Code(s): I82.409 - Acute embolism and thrombosis of unspecified deep veins of unspecified lower extremity Status: Acute (4) Hypothyroidism Code(s): E03.9 - Hypothyroidism, unspecified Status: Chronic (5) Laryngeal squamous cell carcinoma Code(s): C32.9 - Malignant neoplasm of larynx, unspecified Status: Chronic (6) Protein-calorie malnutrition, severe Code(s): E43 - Unspecified severe protein-calorie malnutrition Status: Chronic - Plan 73-year-old female with 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 The rapid response was called and the patient was transferred to ICU where she was placed on 60% oxygenation via trach collar. [facility] reconsulted 05/23 due to hypotension. Currently managed for recurrent respiratory infections with MDRO managed by ID. CT chest does demonstrate a moderate left pleural effusion with left lower lobe atelectasis s/p thoracocentesis. Patient was again sent over to the ICU on 05/29 for acute pulmonary edema with further fever spikes. Patient underwent good diuresis and was made a no code, was eventually stabilized and transition back to hospitalist care. History of squamous cell carcinoma of the larynx now status post tracheostomy due to recurrent aspiration Spiculated right upper lobe pulmonary nodule, multiple R pulmonary nodules. Pulmonary edema -Continue on bronchodilator therapy -Pulmonology following, Dr. Marcelino Loose stools Nausea Cdiff neg 04/26 -TF on hold -IV antiemetics prn -continue on Lactinex -monitor stooling. [facility] nursing staff. MDRO PSAE persistent colonization PNA BLL, MDRO PSAE, Acinetobacter -ID following, Dr. Canchola. Currently on Meropenem. Orders placed 05/[address] Canchola for PICC line. -05/22 Sputum cx: Pseudomonas MDR -05/25 Urine cx: Pseudomonas MDR -05/29 Urine cx: No growth -05/29 BCX: no growth x 3 days -05/29 Sputum cx: Pseudomonas MDR GNR Hypomagnesemia - 1.3, resolved s/p replacement DVT right lower extremity on ultrasound 03/27/18 Repeat doppler 05/30 shows significant interval recanalization of prior extensive RLE DVT -Lovenox weight based pending stable plts Neutropenia Thrombocytopenia - HIT neg - Consult Dr. Pineda who is familiar with patient, appreciate assistance GERD -Prevacid per G-tube daily Gastroparesis Chronic moderate protein energy malnutrition -G tube to gravity. Continuous tube feeds with Vital 1.5 @ 55 ml/hr via J tube. -Local wound care with bacitracin to G J-tube site. Hypothyroidism -Continue Synthroid per G-tube daily CKD stage III -Vitamin C supplementation -Monitor renal function, I/O's, electrolytes replacement per protocol. -Diurese as needed Depression/anxiety -Continue Lexapro per G-tube daily. Continue Wellbutrin -Klonopin 0.5 mg per G-tube Right foot ingrown toenail great toe -Followed by podiatry, continue with triple antibiotic ointment [place] as needed for pain. Lovenox Code Status: DNR Discussed Condition With: patient, nursing staff, Dr. Canchola (4) Hypothyroidism Qualifiers: Hypothyroidism type: unspecified Qualified Code(s): E03.9 - Hypothyroidism, unspecified
[2018-06-02] MEDS ORDERED: Heparin Central Flush 100 UNIT/ML 5 ML Vial IV.FLUSH PRN (15:20)
--- NOTE | 2018-06-02 17:38 | P.PNONC ---
Subjective Interval history: Afebrile Patient resting in bed watching tv Denies bleeding denies any pain Objective Vital Signs/Intake & Output: Vital Signs 06/01/18 19:36 06/01/18 20:00 06/01/18 23:38 Temperature 97.8 F Pulse Rate 82 74 77 Respiratory Rate 18 18 16 Blood Pressure 124/55 L Pulse Oximetry 94 L 06/02/18 00:00 06/02/18 03:45 06/02/18 04:00 Temperature 97.7 F 97.9 F Pulse Rate 72 82 72 Respiratory Rate 20 16 20 Blood Pressure 126/66 127/61 Pulse Oximetry 96 98 95 06/02/18 08:00 06/02/18 08:30 06/02/18 12:00 Temperature 97.8 F 98.6 F Pulse Rate 71 66 78 Respiratory Rate 16 20 18 Blood Pressure 122/68 110/78 Pulse Oximetry 98 96 98 06/02/18 15:33 06/02/18 16:00 Temperature 97.3 F L Pulse Rate 78 120 H Respiratory Rate 18 18 Blood Pressure 106/51 L Pulse Oximetry 100 Intake & Output 06/01/18 06/02/18 06/02/18 18:59 06:59 18:59 Intake Total 1430 / 1430 1352 / 1352 250 / 250 Output Total 1150 / 1150 1700 / 1700 Balance 280 / 280 -348 / -348 250 / 250 Weight 134 lb 0.657 oz Intake: IV 250 / 250 250 / 250 250 / 250 Vabomere Inj 2,000 MG In NS Inj 250 / 250 250 / 250 250 / 250 250 ML @ 83.333 mls/hr IV.SIG Q8H [facility] Rx#:[id number] Oral 100 / 100 Tube Feeding 550 / 550 555 / 555 Tube Irrigant 80 / 80 Water Bolus Amount 450 / 450 547 / 547 Other 0 / 0 Output: Urine 0 / 0 Stool 0 / 0 Urine/Stool Mix 0 / 0 Emesis 0 / 0 Urine Amount (Catheter) 900 / 900 1300 / 1300 Indwelling Urethral Catheter 900 / 900 1300 / 1300 Gastric Drainage 250 / 250 400 / 400 Gastrojejunostomy Tube 250 / 250 400 / 400 Jejunostomy Tube 0 / 0 Other: # Voids 0 # Incontinent Voids 0 # Urine Diapers 0 Date of Last Bowel Movement 06/01/18 06/01/18 06/01/18 # Bowel Movements 1 # Incontinent Bowel Movements 1 Result Diagrams: 06/02/18 07:40 06/02/18 07:40 Laboratory Results: Laboratory Results - last 24 hr 06/02/18 06/02/18 07:40 07:40 WBC 2.7 L RBC 3.12 L Hgb 9.3 L Hct 27.5 L MCV 88.2 MCH 29.9 MCHC 33.8 RDW 14.8 Plt Count 68 L MPV 11.1 H Prelim Diff (Auto) Manual diff required WBC Differential Manual diff final Seg Neuts % (Manual) 39 Band Neuts % (Manual) 5 Lymphocytes % (Manual) 22 Monocytes % (Manual) 11 H Eosinophils % (Manual) 16 H Basophils % (Manual) 2 Myelocytes % (Man) 4 H Blast Cells % (Manual) 1 H Abs Neuts (Manual) 1.3 L Differential Comment . Platelet Estimate Low L Platelet Morphology Enlarged H Ovalocytes 1+ H Sodium 139 Potassium 4.6 Chloride 103 Carbon Dioxide 27.5 Anion Gap 9 BUN 41 H Creatinine 1.02 H Estimated GFR 53 L Random Glucose 85 Calcium 7.7 L Phosphorus 3.3 Magnesium 1.6 Total Bilirubin 0.3 AST 29 ALT 21 Alkaline Phosphatase 85 Total Protein 5.1 L Albumin 1.6 L Culture Results: Microbiology 05/29/18 23:30 Gram Stain - Final Sputum - Tracheal Aspirate Sputum Culture - Preliminary Pseudomonas aeruginosa Multidrug Resistant gram negative rods 05/29/18 18:50 Aerobic Blood Culture - Preliminary Blood - Peripheral No growth in 4 days Anaerobic Blood Culture - Preliminary No growth in 4 days 05/29/18 19:00 Aerobic Blood Culture - Preliminary Blood - Peripheral No growth in 4 days Anaerobic Blood Culture - Final QNS - See aerobic report. 05/29/18 19:00 Urine Culture - Final Catheterized Urine No growth in 48 hours Medications: Active Medications Generic Name Dose Route Start Last Admin Trade Name Freq PRN Reason Stop Dose Admin Acetaminophen 650 mg 04/26/18 15:46 05/28/18 20:42 Tylenol J-TUBE 650 mg Q4H PRN Administration ELEVATED TEMP/HEADACHE Hydrocodone Bitart/Acetaminophen 1 tab 04/23/18 20:59 05/31/18 06:01 [facility] 5/325 J-TUBE 1 tab Q4H PRN Administration PAIN 2-5 Hydrocodone Bitart/Acetaminophen 2 tab 04/23/18 20:59 06/01/18 14:44 [facility] 5/325 J-TUBE 2 tab Q4H PRN Administration PAIN 6-10 Albuterol 1 ampul 04/23/18 21:09 05/29/18 12:19 Duoneb Neb (Prn) NEB 1 ampul Q2HR NEB PRN Administration WHEEZING Ascorbic Acid 500 mg 04/26/18 21:00 06/02/18 09:03 Vitamin C J-TUBE 500 mg BID ANN Administration Bupropion HCl 150 mg 04/23/18 21:00 06/02/18 09:04 Wellbutrin J-TUBE 150 mg BID ANN Administration Cetirizine HCl 10 mg 04/26/18 21:00 06/01/18 21:20 Zyrtec J-TUBE 10 mg HS ANN Administration Clonazepam 0.5 mg 05/15/18 14:01 05/24/18 17:22 Klonopin G-TUBE 0.5 mg Q8HR PRN Administration ANXIETY Diphenhydramine HCl 25 mg 04/23/18 20:59 05/09/18 09:07 Benadryl J-TUBE 25 mg Q4H PRN Administration ITCHING Enoxaparin Sodium 60 mg 04/24/18 00:00 05/30/18 00:15 Lovenox Inj SQ 60 mg Q24H ANN Administration Escitalopram Oxalate 20 mg 04/24/18 09:00 06/02/18 09:03 Lexapro J-TUBE 20 mg DAILY ANN Administration Glycopyrrolate 0.4 mg 05/12/18 20:58 05/29/18 09:40 Robinul Inj IV.PUSH 0.4 mg Q8H PRN Administration THICK SECRETIONS Hyoscyamine 0.125 mg 04/26/18 16:00 06/02/18 16:00 Levsin Liq SL 0.125 mg Q6H ANN Administration Meropenem 2,000 mg/ Sodium 250 mls @ 83.333 mls/hr 05/29/18 20:00 06/02/18 12 :30 Chloride IV.SIG 88.3 mls/hr Q8H ANN Administration Lactobacillus Acidophilus 1 tab 04/24/18 09:00 06/02/18 13:00 Lactinex J-TUBE 1 tab TID ANN Administration Lansoprazole 30 mg 05/16/18 09:00 06/02/18 09:03 Prevacid Solutab J-TUBE 30 mg DAILY ANN Administration Levothyroxine Sodium 150 mcg 05/09/18 12:00 06/02/18 06:01 Synthroid J-TUBE 150 mcg DAILY@0600 ANN Administration Lidocaine HCl 2.5 ml 04/27/18 21:23 05/02/18 21:05 Xylocaine 2% Viscous OROPHARYNG 2.5 ml Q6H PRN Administration SEE LABEL COMMENTS Loperamide HCl 2 mg 05/11/18 08:08 05/22/18 09:53 Imodium Liq J-TUBE 2 mg PRN PRN Administration diarrhea Morphine Sulfate 5 mg 04/23/18 20:59 05/29/18 16:08 Roxanol Liq SL 5 mg Q4H PRN Administration BREAKTHROUGH pain 2-10 Multivitamins 1 tab 04/27/18 09:00 06/02/18 09:04 Theragran J-TUBE 1 tab DAILY ANN Administration Neomycin/Polymyxin/Bacitracin 0 applicatio 05/24/18 16:00 06/02/18 09:04 Neosporin Oint TOPICAL 1 applicatio DAILY ANN Administration Simethicone 125 mg 04/23/18 20:59 05/29/18 09:41 Phazyme Chew J-TUBE 125 mg Q4H PRN Administration RELATING TO BLOATING Sodium Chloride 2 ml 05/20/18 21:00 06/02/18 09:04 Ns Flush IV.FLUSH 2 ml BID ANN Administration Temazepam 15 mg 04/26/18 16:45 05/16/18 20:17 Restoril J-TUBE 15 mg HS PRN Administration INSOMNIA Zinc Oxide 1 applicatio 05/16/18 13:00 06/02/18 09:05 Zinc Oxide 20% Oint TOPICAL 1 applicatio BID ANN Administration Zinc Sulfate 220 mg 04/24/18 09:00 06/02/18 09:03 Zinc-220 J-TUBE 220 mg DAILY ANN Administration Objective Remarks: GENERAL: Elderly female resting in bed in no obvious distress SKIN: Warm and dry. HEAD: Normocephalic. EYES: No scleral icterus. No injection or drainage. NECK: Supple, trachea midline. Tracheostomy in place CARDIOVASCULAR: Regular rate and rhythm without murmurs. RESPIRATORY: Mild scattered rhonchi anteriorly. T piece in place to trach GASTROINTESTINAL: Abdomen soft, non-tender, nondistended. EXTREMITIES: No cyanosis, or edema. MUSCULOSKELETAL: Generalized weakness NEUROLOGICAL: Follows commands. Awake and alert. Assessment/Plan (1) Lung nodules Code(s): R91.8 - Other nonspecific abnormal finding of lung field Status: Acute - Plan 73-year-old female diagnosed in 2014 treated with concurrent chemotherapy with history of supraglottic laryngeal cancer and radiation. The patient was subsequently lost to follow-up and was readmitted in January 2018. Hematology service was consulted for severe anemia. The patient ultimately underwent bone marrow biopsy in March that showed myelodysplastic syndrome. Cytogenetics show that she is high risk. Throughout the course of the hospitalization she was also found to have a right upper lobe lung nodule and 2 new subcentimeter lung nodules adjacent to the original mass. 1. Pancytopenia due to patient's diagnosis of myelodysplastic syndrome. 2. Plan to transfuse for hemoglobin less than 7. 3. Patient on Lovenox injection, currently on hold. She has history of DVT. Would recommend continuing anticoagulation with platelet count consistently greater than 75,000. 4. Continue supportive care. - Attending Statement The exam, history, and the medical decision-making described in the above note were completed with the assistance of the mid-level provider. I reviewed and agree with the findings presented. I attest that I had a [id number] encounter with the patient on the same day, and personally performed and documented my assessment and findings in the medical record. Reconsulted for pancytopenia. Her pancytopenia is due to MDS. She is not a candidate for chemo. Recommendation for pancytopenia is transfusion of PRBC (if Hg <7) and plat(if plat <15) support. pt has trach and on tube feed. Palliative care is involved. son wants to continue aggressive treatment.
--- NOTE | 2018-06-02 18:29 | P.PN ---
Subjective Interval history: Alert and stable on a t bar at 40 % FIo2. No fever. C/O some abdominal pains. Physical Exam Vital signs: Vital Signs 06/01/18 19:36 06/01/18 20:00 06/01/18 23:38 Temperature 97.8 F Pulse Rate 82 74 77 Respiratory Rate 18 18 16 Blood Pressure 124/55 L Pulse Oximetry 94 L 06/02/18 00:00 06/02/18 03:45 06/02/18 04:00 Temperature 97.7 F 97.9 F Pulse Rate 72 82 72 Respiratory Rate 20 16 20 Blood Pressure 126/66 127/61 Pulse Oximetry 96 98 95 06/02/18 08:00 06/02/18 08:30 06/02/18 12:00 Temperature 97.8 F 98.6 F Pulse Rate 71 66 78 Respiratory Rate 16 20 18 Blood Pressure 122/68 110/78 Pulse Oximetry 98 96 98 06/02/18 15:33 06/02/18 16:00 Temperature 97.3 F L Pulse Rate 78 120 H Respiratory Rate 18 18 Blood Pressure 106/51 L Pulse Oximetry 100 Intake & Output 06/01/18 06/02/18 06/02/18 18:59 06:59 18:59 Intake Total 1430 / 1430 1352 / 1352 250 / 250 Output Total 1150 / 1150 1700 / 1700 Balance 280 / 280 -348 / -348 250 / 250 Weight 60.8 kg Intake: IV 250 / 250 250 / 250 250 / 250 Vabomere Inj 2,000 MG In NS Inj 250 / 250 250 / 250 250 / 250 250 ML @ 83.333 mls/hr IV.SIG Q8H [facility] Rx#:[id number] Oral 100 / 100 Tube Feeding 550 / 550 555 / 555 Tube Irrigant 80 / 80 Water Bolus Amount 450 / 450 547 / 547 Other 0 / 0 Output: Urine 0 / 0 Stool 0 / 0 Urine/Stool Mix 0 / 0 Emesis 0 / 0 Urine Amount (Catheter) 900 / 900 1300 / 1300 Indwelling Urethral Catheter 900 / 900 1300 / 1300 Gastric Drainage 250 / 250 400 / 400 Gastrojejunostomy Tube 250 / 250 400 / 400 Jejunostomy Tube 0 / 0 Other: # Voids 0 # Incontinent Voids 0 # Urine Diapers 0 Date of Last Bowel Movement 06/01/18 06/01/18 06/01/18 # Bowel Movements 1 # Incontinent Bowel Movements 1 Narrative: GENERAL: Thin, frail female patient, in no acute distress. Awake and alert. SKIN: Warm and dry. HEENT: Atraumatic. Normocephalic. Pupils equal and round. No scleral icterus. No injection or drainage. No nasal bleeding or discharge. Mucous membranes pink and moist. NECK: Trachea midline. Trach in place, with T Bar CARDIOVASCULAR: Regular rate and rhythm. RESPIRATORY: No accessory muscle use. Few basal crackles. GASTROINTESTINAL: Abdomen soft, non-tender, nondistended. PEG in place. MUSCULOSKELETAL: Extremities without clubbing, cyanosis, or edema. No obvious deformities. NEUROLOGICAL: Awake and alert. No obvious cranial nerve deficits. Able to move all extremities spontaneously. Normal speech. PSYCHIATRIC: Appropriate mood and affect; calm and cooperative. - Urinary Catheter Management Indwelling Urethral Catheter Cath placed during this visit: yes Reason for continuing: Acute urinary retention Insertion date: 05/25/18 Insertion time: 14:00 Results - Labs CBC & Chem 7: 06/02/18 07:40 06/02/18 07:40 Laboratory Results - last 24 hr 06/02/18 06/02/18 07:40 07:40 WBC 2.7 L RBC 3.12 L Hgb 9.3 L Hct 27.5 L MCV 88.2 MCH 29.9 MCHC 33.8 RDW 14.8 Plt Count 68 L MPV 11.1 H Prelim Diff (Auto) Manual diff required WBC Differential Manual diff final Seg Neuts % (Manual) 39 Band Neuts % (Manual) 5 Lymphocytes % (Manual) 22 Monocytes % (Manual) 11 H Eosinophils % (Manual) 16 H Basophils % (Manual) 2 Myelocytes % (Man) 4 H Blast Cells % (Manual) 1 H Abs Neuts (Manual) 1.3 L Differential Comment . Platelet Estimate Low L Platelet Morphology Enlarged H Ovalocytes 1+ H Sodium 139 Potassium 4.6 Chloride 103 Carbon Dioxide 27.5 Anion Gap 9 BUN 41 H Creatinine 1.02 H Estimated GFR 53 L Random Glucose 85 Calcium 7.7 L Phosphorus 3.3 Magnesium 1.6 Total Bilirubin 0.3 AST 29 ALT 21 Alkaline Phosphatase 85 Total Protein 5.1 L Albumin 1.6 L Microbiology 05/29/18 23:30 Sputum - Tracheal Aspirate Gram Stain - Final 05/29/18 23:30 Sputum - Tracheal Aspirate Sputum Culture - Preliminary Pseudomonas aeruginosa Multidrug Resistant gram negative rods 05/29/18 18:50 Blood - Peripheral Aerobic Blood Culture - Preliminary No growth in 4 days 05/29/18 18:50 Blood - Peripheral Anaerobic Blood Culture - Preliminary No growth in 4 days 05/29/18 19:00 Blood - Peripheral Aerobic Blood Culture - Preliminary No growth in 4 days 05/29/18 19:00 Blood - Peripheral Anaerobic Blood Culture - Final QNS - See aerobic report. 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 Cont T Collar at 30 % and wean to keep sat >92 2. Cont nebs with albuterol qid. PRN 3. PM valve daytime PRN to talk 4. Cont Levsin .125 mg qid prn. 5. Tube feeds at 60 CC. 6. BMP ,CBC 7. Up in Chair as tolerated 8. Continue Lovenox 60 mg daily
--- NOTE | 2018-06-02 18:54 | P.PNPAL ---
Reason for Visit Reason for visit: a. To assist with evaluation and management of symptoms including: dyspnea, pain, debility, anxiety. b. To assist medical decision maker(s) with: better understanding of current medical conditions; weighing benefits/burdens of medical treatment options; making medical treatment decisions. Subjective Subjective/Interval History: Patient is seen and examined in [facility]. Discussed with nurses, Anisa and Kanika. Patient is awake and alert. Patient recognizes me from prior visit 07/06. On oxygen via t-piece, oxygen sat 100%. She denies pain or shortness of breath at this time. She reports feeling better compared to last week. Denies chest pains. Afebrile. Vital signs stable. PICC line placed. Oxygen saturation 93%. Creatinine 1.02. Albumin 1.6. Sputum culture multidrug- resistant pseudomonas aeruginosa. No new imaging. Family/Friend Interactions: Spoke with sonQuinton via telephone. Medical update provided. Notified PICC line has been placed. He verbalizes appreciation for call. He speaks highly of nurse. Boudreaux for the care she continues to provide his mother. He reports he is on his way from [place] to see his mother. Questions answered. Advance Directives Living Will: Copy in medical record Health Care Surrogate: Copy in medical record Advance Directives Date on File: 02/08/18 Health Care Surrogate Name and Number: Alireza Whitten, son/medical power of compliance attorney: [phone] Documented care wishes:: Patient directs that her healthcare providers and others involved in her care provide, withhold or withdraw treatment in accordance with her wish to not prolong life if she has an incurable and irreversible condition that will result in her within a relatively short time or if she becomes unconscious and to a reasonable degree of medical certainty will not regain consciousness were the likely results and burdens of treatment would outweigh the expected benefits. She requests also that treatment for alleviation of pain or discomfort be provided at all times, even if it hastens her . Additionally she indicates that in the event of severe and irreversible or terminal illness that she wishes for the priority on keeping her comfortable and no aggressive therapy or intervention be done unless expressly approved by Alireza Whitten her son. She does not wish to donate any organs after her . Significant change in goals:: NO CODE. Goals remain aggressive short of NO CODE for now. She desires adequate pain control. Objective Vital Signs: Vital Signs 06/01/18 19:36 06/01/18 20:00 06/01/18 23:38 Temperature 97.8 F Pulse Rate 82 74 77 Respiratory Rate 18 18 16 Blood Pressure 124/55 L Pulse Oximetry 94 L 06/02/18 00:00 06/02/18 03:45 06/02/18 04:00 Temperature 97.7 F 97.9 F Pulse Rate 72 82 72 Respiratory Rate 20 16 20 Blood Pressure 126/66 127/61 Pulse Oximetry 96 98 95 06/02/18 08:00 06/02/18 08:30 06/02/18 12:00 Temperature 97.8 F 98.6 F Pulse Rate 71 66 78 Respiratory Rate 16 20 18 Blood Pressure 122/68 110/78 Pulse Oximetry 98 96 98 06/02/18 15:33 06/02/18 16:00 Temperature 97.3 F L Pulse Rate 78 120 H Respiratory Rate 18 18 Blood Pressure 106/51 L Pulse Oximetry 100 Intake & Output 06/01/18 06/02/18 06/02/18 18:59 06:59 18:59 Intake Total 1430 / 1430 1352 / 1352 250 / 250 Output Total 1150 / 1150 1700 / 1700 Balance 280 / 280 -348 / -348 250 / 250 Weight 60.8 kg Intake: IV 250 / 250 250 / 250 250 / 250 Vabomere Inj 2,000 MG In NS Inj 250 / 250 250 / 250 250 / 250 250 ML @ 83.333 mls/hr IV.SIG Q8H [facility] Rx#:[id number] Oral 100 / 100 Tube Feeding 550 / 550 555 / 555 Tube Irrigant 80 / 80 Water Bolus Amount 450 / 450 547 / 547 Other 0 / 0 Output: Urine 0 / 0 Stool 0 / 0 Urine/Stool Mix 0 / 0 Emesis 0 / 0 Urine Amount (Catheter) 900 / 900 1300 / 1300 Indwelling Urethral Catheter 900 / 900 1300 / 1300 Gastric Drainage 250 / 250 400 / 400 Gastrojejunostomy Tube 250 / 250 400 / 400 Jejunostomy Tube 0 / 0 Other: # Voids 0 # Incontinent Voids 0 # Urine Diapers 0 Date of Last Bowel Movement 06/01/18 06/01/18 06/01/18 # Bowel Movements 1 # Incontinent Bowel Movements 1 Physical Exam: CONSTITUTIONAL/GENERAL: this is a pale, chronically ill appearing female with a tracheostomy TUBES/LINES: t-piece oxygen to trach, PIV right, GJ tube, dressing right great toe. SKIN: Pale. Afebrile. Dressing on right great toe. No jaundice, rashes, or lesions. EYES: Pupils equal and reactive. ENT: Hearing grossly normal. Nose without bleeding or purulent drainage. Oral mucosa dry. CARDIOVASCULAR: RRR. RESPIRATORY/CHEST: diminished lung sounds bilaterally. GASTROINTESTINAL: Abdomen soft, non-tender, nondistended. No guarding. GJ tube. MUSCULOSKELETAL: Extremities without clubbing, cyanosis. + pedal edema. NEUROLOGICAL: Awake and alert. Motor and sensory grossly within normal limits. Follows commands. Cognitively sharp. Mouths words. Moves all extremities. PSYCHIATRIC: Calm. Diagnostic Tests Laboratory: Laboratory Results - last 72 hr 05/30/18 05/31/18 05/31/18 09:21 05:20 05:20 WBC 4.1 RBC 3.44 L Hgb 10.2 L Hct 30.5 L MCV 88.7 MCH 29.6 MCHC 33.4 RDW 14.9 Plt Count 71 L MPV 10.8 Prelim Diff (Auto) Slide review pending WBC Differential Manual diff final Seg Neuts % (Manual) 58 Band Neuts % (Manual) 15 H Lymphocytes % (Manual) 7 L Monocytes % (Manual) 6 Eosinophils % (Manual) 5 H Basophils % (Manual) Metamyelocytes % (Man) 1 Myelocytes % (Man) 5 H Blast Cells % (Manual) 3 H Abs Neuts (Manual) 3.2 Differential Comment . Toxic Granulation 1+ H Toxic Vacuolation Present H Platelet Estimate Low L Platelet Morphology Enlarged H Ovalocytes 1+ H Acanthocytes (Spur) 1+ H Sodium 139 Potassium 4.2 Chloride 105 Carbon Dioxide 23.7 Anion Gap 10 BUN 50 H Creatinine 1.43 H Estimated GFR 36 L Random Glucose 115 H Calcium 7.4 L* D Prot Corrected Calcium 8.4 L Phosphorus 2.6 D Magnesium 1.3 L Total Bilirubin 0.3 AST 17 ALT 16 Alkaline Phosphatase 91 Total Protein 5.3 L Albumin 1.7 L Heparin Dep Plt Ab OD 0.502 Hep-Induced Plt Ab Elissa Negative 06/01/18 06/01/18 06/02/18 07:40 07:40 07:40 WBC 2.9 L 2.7 L RBC 3.15 L 3.12 L Hgb 9.5 L 9.3 L Hct 27.8 L 27.5 L MCV 88.0 88.2 MCH 30.0 29.9 MCHC 34.1 33.8 RDW 14.7 14.8 Plt Count 58 L 68 L MPV 10.7 11.1 H Prelim Diff (Auto) Manual diff required Manual diff required WBC Differential Manual diff final Manual diff final Seg Neuts % (Manual) 40 39 Band Neuts % (Manual) 3 5 Lymphocytes % (Manual) 31 22 Monocytes % (Manual) 13 H 11 H Eosinophils % (Manual) 8 H 16 H Basophils % (Manual) 1 2 Metamyelocytes % (Man) Myelocytes % (Man) 1 H 4 H Blast Cells % (Manual) 3 H 1 H Abs Neuts (Manual) 1.3 L 1.3 L Differential Comment . . Toxic Granulation Toxic Vacuolation Platelet Estimate Low L Low L Platelet Morphology Enlarged H Enlarged H Ovalocytes 1+ H 1+ H Acanthocytes (Spur) Sodium 139 Potassium 3.9 Chloride 105 Carbon Dioxide 26.4 Anion Gap 8 BUN 48 H Creatinine 1.21 H Estimated GFR 44 L Random Glucose 91 Calcium 7.3 L* Prot Corrected Calcium 8.3 L Phosphorus 3.0 Magnesium 1.6 Total Bilirubin 0.3 AST 16 ALT 18 Alkaline Phosphatase 86 Total Protein 5.2 L Albumin 1.7 L Heparin Dep Plt Ab OD Hep-Induced Plt Ab Elissa 06/02/18 07:40 WBC RBC Hgb Hct MCV MCH MCHC RDW Plt Count MPV Prelim Diff (Auto) WBC Differential Seg Neuts % (Manual) Band Neuts % (Manual) Lymphocytes % (Manual) Monocytes % (Manual) Eosinophils % (Manual) Basophils % (Manual) Metamyelocytes % (Man) Myelocytes % (Man) Blast Cells % (Manual) Abs Neuts (Manual) Differential Comment Toxic Granulation Toxic Vacuolation Platelet Estimate Platelet Morphology Ovalocytes Acanthocytes (Spur) Sodium 139 Potassium 4.6 Chloride 103 Carbon Dioxide 27.5 Anion Gap 9 BUN 41 H Creatinine 1.02 H Estimated GFR 53 L Random Glucose 85 Calcium 7.7 L Prot Corrected Calcium Phosphorus 3.3 Magnesium 1.6 Total Bilirubin 0.3 AST 29 ALT 21 Alkaline Phosphatase 85 Total Protein 5.1 L Albumin 1.6 L Heparin Dep Plt Ab OD Hep-Induced Plt Ab Elissa Result Diagrams: 06/02/18 07:40 06/02/18 07:40 Microbiology: Microbiology 05/29/18 23:30 Gram Stain - Final Sputum - Tracheal Aspirate Sputum Culture - Preliminary Pseudomonas aeruginosa Multidrug Resistant gram negative rods 05/29/18 18:50 Aerobic Blood Culture - Preliminary Blood - Peripheral No growth in 4 days Anaerobic Blood Culture - Preliminary No growth in 4 days 05/29/18 19:00 Aerobic Blood Culture - Preliminary Blood - Peripheral No growth in 4 days Anaerobic Blood Culture - Final QNS - See aerobic report. 05/29/18 19:00 Urine Culture - Final Catheterized Urine No growth in 48 hours Imaging: Abdomen/Bladder Ultrasound 05/06/18 00:00 CONCLUSION: 1. Increased renal echogenicity characteristic of medical renal disease. Small cyst right kidney. Dependent debris in the bladder. Tube Check 05/20/18 00:00 CONCLUSION: 1. Uncomplicated tube injection as above. The gastrojejunostomy tube is in good position. If there is concern for duodenal stricture resulting in a functional obstruction consideration could be made to the administration of barium either orally or through the gastric lumen of the tube to assess for any obstruction. Thin iodinated contrast would be limited in trying to assess this. Upper GI Series 05/21/18 00:00 CONCLUSION: No evidence of gastric outlet or duodenal obstruction. Abdomen/Pelvis CT 05/22/18 00:00 CONCLUSION: 1. Diverticulosis without perceptible diverticulitis or other acute inflammatory changes. 2. The gastrojejunostomy tube appears appropriately positioned. No perceptible associated acute complication. 3. There are scattered tiny nonobstructing stones of both kidneys and a small cyst on the right. 4. Small sliding-type hiatal hernia again seen. Chest CT 05/22/18 16:12 CONCLUSION: 1. Moderate left pleural effusion with atelectasis of the left lower lobe. 2. Mild right base atelectasis, improved compared to prior CT. 3. Right upper lobe pulmonary nodules are stable but the larger one remains concerning for primary bronchogenic carcinoma. Chest Ultrasound 05/23/18 00:00 CONCLUSION: 1. Lastly 360 cc of pleural effusion on the left. This does not appear loculated or complex. Site was marked Thoracentesis Ultrasound 05/23/18 00:00 CONCLUSION: Uncomplicated ultrasound-guided left chest thoracentesis as above. Extremity Arterial Study 05/24/18 00:00 CONCLUSION: 1. Severe reduction of the ABIs bilaterally. Abdomen X-Ray 05/26/18 00:00 CONCLUSION: 1. GJ tube appears to be in appropriate position with distal end of the jejunal feeding tube in the left upper quadrant. 2. Persistent pleural-parenchymal opacity at the left lung base. Chest CTA 05/26/18 00:00 CONCLUSION: 1. No evidence for pulmonary embolism. 2. Bibasilar consolidation. 3. Prominent nodule in the right upper lobe again seen measuring 13 mm concerning for malignancy. 4. Patchy opacities in the lingula and left lower lobe likely infectious. Venous Doppler Study 05/30/18 00:00 CONCLUSION: Significant interval recanalization of prior extensive right leg DVT Left leg remains normal in appearance. Chest X-Ray 05/30/18 07:29 CONCLUSION: Interval improvement. Less interstitial edema. Trach tube in good position. 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 Patient now has a tracheostomy. (4) Debility 0-10 Scale: Unable to quantify Pertinent Non-Medical Issues: Psychosocial: Patient is originally from [place]. She has 4 brothers and 2 sisters. She moved to [place] approximately 40 years ago. Patient was for 18 years and then . She and her had 3 sons (Alireza, Sagar and Cameron). Alireza is a physicians esl instructional assistant and lives in [place]. Adalid and Cameron live in [place]. Per patient, Cameron was born with "autism" and live in a custodial Spiritual: Confucianist Legal: Pt's son Alireza is medical POA. Ethical issues impacting care: none Important Contacts: medical POA son Alireza Whitten , cell [phone] Prognosis: This is a 73 yo lady with hx laryngeal ca diagnosed 2015 s/p chemo and radiation who presented 9/5 after [facility] called for hypoxia and respiratory distress while in [facility]. She initially presented in January with weakness, dysphagia, weight loss, anemia. Chest CT showing enlarging spiculated nodule, 2 additional right lung nodules. She has since had tracheostomy, GJ, and numerous complications, including PNA, need for GJ replacement. She is likely to continue to decline and encounter complications and setbacks as she deconditions. Unlikely she would tolerate invasive procedure such as long bx, or tolerate the treatment necessary to address a malignancy if that is what her lung nodules are. Code Status: No Code DNR (DNR/DNI does NOT want to go back on mech vent.) Plan: - LEGAL DECISON MAKER - Pt is capacitated to make medical decisions. Should she become incapacitated, she has designated her son Alireza as medical POA. - NO CODE - DNR/DNI does NOT want to go back on mech vent. - GOALS - Goals aggressive short of NO CODE, she does not want tracheostomy changed out. They do not want comfort meds withheld for hypotension or other reasons. - Palliative care will continue to follow. - SYMPTOMS - No new medication recommendations at this time. * pain - risk for pain. multifactorial, coccygeal ulcer, mult lines and catheters, tubes. Has PRN [place] and PRN Roxanol 5mg q4h for breakthrough pain. Sparing need. Will continue to monitor need and effect. No new medication recommendations at this time. Continue current meds, call son prior to making any medication adjustments. * dyspnea - hx laryngeal ca, has trach, now with PNA. BCX pending. denies feeling SOB today. On oxygen via t-piece, PM valve as needed. Duonebs as needed. has PRN meds for anxiety and pain. * depression/anxiety - multifactorial. pt mildly anxious, on lexapro, wellbutrin. has clonazepam 0.5 mg q8h PRN. Has PRN temazepam for insomnia. * debility- multifactorial. 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 respiratory status unlikely to allow for aggressive therapy and rehab. weak. PT following. no further recs. - d/w nurses, Anisa and Kanika. Spoke with patient and son, Waldemar Whitten. - Palliative care will continue to follow during hospital course as condition evolves, to assist patient/decision-maker with understanding of medical conditions, weighing benefits/burdens of treatment options, for clarification of goals of treatment. Additionally will assist with any symptoms of palliative concern Attestation Attestation: To help prompt me to consider important information that might be impacting today's encounter and assessment, information from prior notes written by myself or my colleagues may have been "brought forward" into today's note. My signature on this note, however, is an attestation that I personally performed the exam, history, and/or decision-making noted today, and, unless otherwise indicated, the interactions with patient, family, and staff as well as the review of records all occurred today. I also attest that the listed assessment and stated plan reflect my best clinical judgment today based on the combination of historical information, prior notes, and today's exam/ interactions. When time spent is documented, it refers only to time spent today by the signer, or if indicated, combined time spent today by collaborating physician/nurse practitioner.
[2018-06-03] MEDS: SODIUM CHLOR 0.9% IV.SIG SCH ×3 (04:59→20:07)
[2018-06-03] MEDS: MEROPENEM VABORBACTAM IV.SIG SCH ×3 (04:59→20:07)
[2018-06-03] MEDS: Hyoscyamine Liq Drops 0.125 MG/ML 15 ML Bottle SL SCH ×4 (05:00→22:37)
[2018-06-03] MEDS: Levothyroxine 150 MCG Tablet J-TUBE SCH (05:00)
[2018-06-03] MEDS: buPROPion 75 MG Tablet J-TUBE SCH ×2 (09:00→20:08)
[2018-06-03] MEDS: Sodium Chloride 0.9% 2 ML Flush BID IV.FLUSH SCH ×2 (09:00→20:08)
[2018-06-03] MEDS: Lactobacillus Acidophilus/L. Spores Tablet J-TUBE SCH ×3 (09:00→17:32)
[2018-06-03] MEDS: Heparin Central Flush 100 UNIT/ML 5 ML Vial IV.FLUSH SCH (09:00)
[2018-06-03] MEDS: Ascorbic Acid 500 MG Tablet J-TUBE SCH ×2 (09:00→20:08)
--- NOTE | 2018-06-03 12:46 | P.PN ---
Subjective Interval history: Alert and on a PM valve. On O2 3l No chest pains. Physical Exam Vital signs: Vital Signs 06/02/18 15:33 06/02/18 16:00 06/02/18 19:12 Temperature 97.3 F L Pulse Rate 78 120 H Respiratory Rate 18 18 Blood Pressure 106/51 L Pulse Oximetry 100 100 06/02/18 19:36 06/02/18 20:00 06/02/18 20:58 Temperature 96.6 F L Pulse Rate 104 H 104 H 104 H Respiratory Rate 18 22 Blood Pressure 131/85 Pulse Oximetry 93 L 06/03/18 10:07 Temperature Pulse Rate Respiratory Rate Blood Pressure Pulse Oximetry 93 L Intake & Output 06/02/18 06/03/18 06/03/18 18:59 06:59 18:59 Intake Total 1260 / 1260 947 / 947 250 / 250 Output Total 1100 / 1100 725 / 725 Balance 160 / 160 222 / 222 250 / 250 Weight 58.7 kg Intake: IV 500 / 500 250 / 250 250 / 250 Vabomere Inj 2,000 MG In NS Inj 500 / 500 250 / 250 250 / 250 250 ML @ 83.333 mls/hr IV.SIG Q8H [facility] Rx#:[id number] Oral 100 / 100 0 / 0 Tube Feeding 600 / 600 577 / 577 Tube Irrigant 60 / 60 120 / 120 Water Bolus Amount 0 / 0 Other 0 / 0 Output: Stool 0 / 0 Urine/Stool Mix 0 / 0 Emesis 0 / 0 Urine Amount (Catheter) 800 / 800 725 / 725 Indwelling Urethral Catheter 800 / 800 725 / 725 Gastric Drainage 300 / 300 Gastrojejunostomy Tube 300 / 300 Jejunostomy Tube 0 / 0 Other: # Voids 0 # Incontinent Voids 0 # Urine Diapers 0 Date of Last Bowel Movement 06/02/18 06/03/18 06/03/18 # Bowel Movements 1 1 # Incontinent Bowel Movements 1 Narrative: GENERAL: Thin, frail female patient, in no acute distress. Awake and alert. SKIN: Warm and dry. HEENT: Atraumatic. Normocephalic. Pupils equal and round. No scleral icterus. No injection or drainage. No nasal bleeding or discharge. Mucous membranes pink and moist. NECK: Trachea midline. Trach in place. CARDIOVASCULAR: Regular rate and rhythm. RESPIRATORY: Few basal crackles. Wheeze scattered. GASTROINTESTINAL: Abdomen soft, non-tender, nondistended. PEG in place. MUSCULOSKELETAL: Extremities without clubbing, cyanosis, or edema. No obvious deformities. NEUROLOGICAL: Awake and alert. No obvious cranial nerve deficits. Able to move all extremities spontaneously. Normal speech. PSYCHIATRIC: Appropriate mood and affect; calm and cooperative. - Urinary Catheter Management Indwelling Urethral Catheter Cath placed during this visit: yes Reason for continuing: Chronic Urinary Retention Insertion date: 05/25/18 Insertion time: 14:00 Results - Labs CBC & Chem 7: 06/02/18 07:40 06/02/18 07:40 Microbiology 05/29/18 23:30 Sputum - Tracheal Aspirate Gram Stain - Final 05/29/18 23:30 Sputum - Tracheal Aspirate Sputum Culture - Final Pseudomonas aeruginosa Multidrug Resistant Stenotrophomonas maltophilia 05/29/18 18:50 Blood - Peripheral Aerobic Blood Culture - Final No growth in 5 days 05/29/18 18:50 Blood - Peripheral Anaerobic Blood Culture - Final No growth in 5 days 05/29/18 19:00 Blood - Peripheral Aerobic Blood Culture - Final No growth in 5 days 05/29/18 19:00 Blood - Peripheral Anaerobic Blood Culture - Final QNS - See aerobic report. 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 Cont T Collar at HS at 30 %FIO2 and wean to keep sat >92 2. Cont nebs with albuterol qid. PRN 3. PM valve daytime PRN to talk 4. Cont Levsin .125 mg qid prn. 5. Tube feeds at 60 CC. 6. O2 N/C 3 L Daytime 7. Up in Chair as tolerated 8. Continue Lovenox 60 mg daily
--- NOTE | 2018-06-03 15:35 | P.PN ---
Subjective Interval history: Follow-up for SCC of larynx with trach, PNA, DVT and gastroparesis. Patient seen and examined resting in bed in no acute distress. Has been on NC and PM valve for past 5hrs and tolerating. Denies any fevers, chills, N/V, cough or SOB. Patient with no acute complaints. No acute events reported from nurse. Physical Exam Vital signs: Vital Signs 06/02/18 15:33 06/02/18 16:00 06/02/18 19:12 Temperature 97.3 F L Pulse Rate 78 120 H Respiratory Rate 18 18 Blood Pressure 106/51 L Pulse Oximetry 100 100 06/02/18 19:36 06/02/18 20:00 06/02/18 20:58 Temperature 96.6 F L Pulse Rate 104 H 104 H 104 H Respiratory Rate 18 22 Blood Pressure 131/85 Pulse Oximetry 93 L 06/03/18 08:00 06/03/18 10:07 06/03/18 12:00 Temperature 97.9 F 98.0 F Pulse Rate 68 78 Respiratory Rate 16 18 Blood Pressure 115/56 L 110/68 Pulse Oximetry 95 93 L 96 Intake & Output 06/02/18 06/03/18 06/03/18 18:59 06:59 18:59 Intake Total 1260 / 1260 947 / 947 250 / 250 Output Total 1100 / 1100 725 / 725 Balance 160 / 160 222 / 222 250 / 250 Weight 58.7 kg Intake: IV 500 / 500 250 / 250 250 / 250 Vabomere Inj 2,000 MG In NS Inj 500 / 500 250 / 250 250 / 250 250 ML @ 83.333 mls/hr IV.SIG Q8H [facility] Rx#:[id number] Oral 100 / 100 0 / 0 Tube Feeding 600 / 600 577 / 577 Tube Irrigant 60 / 60 120 / 120 Water Bolus Amount 0 / 0 Other 0 / 0 Output: Stool 0 / 0 Urine/Stool Mix 0 / 0 Emesis 0 / 0 Urine Amount (Catheter) 800 / 800 725 / 725 Indwelling Urethral Catheter 800 / 800 725 / 725 Gastric Drainage 300 / 300 Gastrojejunostomy Tube 300 / 300 Jejunostomy Tube 0 / 0 Other: # Voids 0 # Incontinent Voids 0 # Urine Diapers 0 Date of Last Bowel Movement 06/02/18 06/03/18 06/03/18 # Bowel Movements 1 1 # Incontinent Bowel Movements 1 Narrative: GENERAL: Thin, frail female patient, in no acute distress. Awake and alert. SKIN: Warm and dry. HEENT: Atraumatic. Normocephalic. Pupils equal and round. No scleral icterus. No injection or drainage. No nasal bleeding or discharge. Mucous membranes pink and moist. NECK: Trachea midline. Trach with PMV in place, and NC. CARDIOVASCULAR: Regular rate and rhythm. RESPIRATORY: No accessory muscle use. Fair air entry. Upper airway sounds. GASTROINTESTINAL: Abdomen soft, non-tender, nondistended. PEG in place. MUSCULOSKELETAL: Extremities without clubbing, cyanosis, or edema. No obvious deformities. +ingrown toenail right great toe, improved. NEUROLOGICAL: Awake and alert. No obvious cranial nerve deficits. Able to move all extremities spontaneously. Normal speech. PSYCHIATRIC: Appropriate mood and affect; calm and cooperative. - Urinary Catheter Management Indwelling Urethral Catheter Cath placed during this visit: yes Reason for continuing: Chronic Urinary Retention Insertion date: 05/25/18 Insertion time: 14:00 Results - Labs CBC & Chem 7: 06/02/18 07:40 06/02/18 07:40 Microbiology 05/29/18 23:30 Sputum - Tracheal Aspirate Gram Stain - Final 05/29/18 23:30 Sputum - Tracheal Aspirate Sputum Culture - Final Pseudomonas aeruginosa Multidrug Resistant Stenotrophomonas maltophilia 05/29/18 18:50 Blood - Peripheral Aerobic Blood Culture - Final No growth in 5 days 05/29/18 18:50 Blood - Peripheral Anaerobic Blood Culture - Final No growth in 5 days 05/29/18 19:00 Blood - Peripheral Aerobic Blood Culture - Final No growth in 5 days 05/29/18 19:00 Blood - Peripheral Anaerobic Blood Culture - Final QNS - See aerobic report. Assessment and Plan - Assessment (1) Pneumonia Code(s): J18.9 - Pneumonia, unspecified organism Status: Acute (2) GERD (gastroesophageal reflux disease) Code(s): K21.9 - Gastro-esophageal reflux disease without esophagitis Status: Chronic (3) DVT (deep venous thrombosis) Code(s): I82.409 - Acute embolism and thrombosis of unspecified deep veins of unspecified lower extremity Status: Acute (4) Hypothyroidism Code(s): E03.9 - Hypothyroidism, unspecified Status: Chronic (5) Laryngeal squamous cell carcinoma Code(s): C32.9 - Malignant neoplasm of larynx, unspecified Status: Chronic (6) Protein-calorie malnutrition, severe Code(s): E43 - Unspecified severe protein-calorie malnutrition Status: Chronic - Plan 73-year-old female with 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 The rapid response was called and the patient was transferred to ICU where she was placed on 60% oxygenation via trach collar. [facility] reconsulted 05/23 due to hypotension. Currently managed for recurrent respiratory infections with MDRO managed by ID. CT chest does demonstrate a moderate left pleural effusion with left lower lobe atelectasis s/p thoracocentesis. Patient was again sent over to the ICU on 05/29 for acute pulmonary edema with further fever spikes. Patient underwent good diuresis and was made a no code, was eventually stabilized and transition back to hospitalist care. History of squamous cell carcinoma of the larynx now status post tracheostomy due to recurrent aspiration Spiculated right upper lobe pulmonary nodule, multiple R pulmonary nodules. Pulmonary edema -Continue on bronchodilator therapy -Pulmonology following, Dr. Marcelino - Tolerating PMV and NC Loose stools Nausea Cdiff neg 05/25 -IV antiemetics prn, no further N/V TF resumed -continue on Lactinex -monitor stooling. DW nursing staff. MDRO PSAE persistent colonization PNA BLL, MDRO PSAE, Acinetobacter -ID following, Dr. Canchola. Currently on Meropenem. Orders placed 05/[address] Canchola for PICC line. -05/22 Sputum cx: Pseudomonas MDR -05/25 Urine cx: Pseudomonas MDR -05/29 Urine cx: No growth -05/29 BCX: no growth x 3 days -05/29 Sputum cx: Pseudomonas MDR GNR, and Stenotrophomonas maltophilia - ID following, started on IV Levaquin today. Hypomagnesemia - 1.3, resolved s/p replacement DVT right lower extremity on ultrasound 03/27/18 Repeat doppler 05/30 shows significant interval recanalization of prior extensive RLE DVT -Lovenox weight based pending stable plts Neutropenia Thrombocytopenia - HIT neg - Consult Dr. Pineda who is familiar with patient, appreciate assistance GERD -Prevacid per G-tube daily Gastroparesis Chronic moderate protein energy malnutrition -G tube to gravity. Continuous tube feeds with Vital 1.5 @ 55 ml/hr via J tube. -Local wound care with bacitracin to G J-tube site. Hypothyroidism -Continue Synthroid per G-tube daily CKD stage III -Vitamin C supplementation -Monitor renal function, I/O's, electrolytes replacement per protocol. -Diurese as needed Depression/anxiety -Continue Lexapro per G-tube daily. Continue Wellbutrin -Klonopin 0.5 mg per G-tube Right foot ingrown toenail great toe -Followed by podiatry, continue with triple antibiotic ointment Anton[place] as needed for pain. Lovenox on hold secondary to thrombocytopenia Discussed Condition With: Patient and RN (4) Hypothyroidism Qualifiers: Qualified Code(s): E03.9 - Hypothyroidism, unspecified
[2018-06-03] MEDS: Morphine Sulfate Oral Liq 10 MG/0.5 ML Syringe SL PRN (17:24)
[2018-06-03] MEDS: Loperamide Liq 2 MG/10 ML UDC J-TUBE PRN (17:25)
--- NOTE | 2018-06-03 17:47 | P.PNID ---
Subjective Remarks: remains on Tpiece large amount of secrertions sputum clx growing PSAE, Steno malt BC NGDT urine clx neg - final Neutrophils down to 1300 Antibiotics: vabomere Past Medical History: lung ca Allergies/Adverse Reactions: Allergies epinephrine Allergy (Severe, Verified 02/21/18 08:40) TACHYCARDIA penicillin G Allergy (Severe, Verified 02/21/18 08:40) Hives peanut Allergy (Intermediate, Verified 02/21/18 08:40) ANAPHYLAXIS legumes Allergy (Unknown, Verified 03/06/18 21:48) Anaphylaxis UNKNOWN soy Allergy (Verified 03/06/18 21:45) Rash UNKNOWN Objective Vital Signs 06/02/18 19:12 06/02/18 19:36 06/02/18 20:00 Temperature 96.6 F L Pulse Rate 104 H 104 H Respiratory Rate 18 Blood Pressure 131/85 Pulse Oximetry 100 93 L 06/02/18 20:58 06/03/18 08:00 06/03/18 10:07 Temperature 97.9 F Pulse Rate 104 H 68 Respiratory Rate 22 16 Blood Pressure 115/56 L Pulse Oximetry 95 93 L 06/03/18 12:00 Temperature 98.0 F Pulse Rate 78 Respiratory Rate 18 Blood Pressure 110/68 Pulse Oximetry 96 Intake & Output 06/02/18 06/03/18 06/03/18 18:59 06:59 18:59 Intake Total 1260 / 1260 947 / 947 250 / 250 Output Total 1100 / 1100 725 / 725 Balance 160 / 160 222 / 222 250 / 250 Weight 58.7 kg Intake: IV 500 / 500 250 / 250 250 / 250 Vabomere Inj 2,000 MG In NS Inj 500 / 500 250 / 250 250 / 250 250 ML @ 83.333 mls/hr IV.SIG Q8H [facility] Rx#:[id number] Oral 100 / 100 0 / 0 Tube Feeding 600 / 600 577 / 577 Tube Irrigant 60 / 60 120 / 120 Water Bolus Amount 0 / 0 Other 0 / 0 Output: Stool 0 / 0 Urine/Stool Mix 0 / 0 Emesis 0 / 0 Urine Amount (Catheter) 800 / 800 725 / 725 Indwelling Urethral Catheter 800 / 800 725 / 725 Gastric Drainage 300 / 300 Gastrojejunostomy Tube 300 / 300 Jejunostomy Tube 0 / 0 Other: # Voids 0 # Incontinent Voids 0 # Urine Diapers 0 Date of Last Bowel Movement 06/02/18 06/03/18 06/03/18 # Bowel Movements 1 1 # Incontinent Bowel Movements 1 05/29/18 23:30 Sputum - Tracheal Aspirate Gram Stain - Final 05/29/18 23:30 Sputum - Tracheal Aspirate Sputum Culture - Final Pseudomonas aeruginosa Multidrug Resistant Stenotrophomonas maltophilia 05/29/18 18:50 Blood - Peripheral Aerobic Blood Culture - Final No growth in 5 days 05/29/18 18:50 Blood - Peripheral Anaerobic Blood Culture - Final No growth in 5 days 05/29/18 19:00 Blood - Peripheral Aerobic Blood Culture - Final No growth in 5 days 05/29/18 19:00 Blood - Peripheral Anaerobic Blood Culture - Final QNS - See aerobic report. Lab - Hematology Results 06/02/18 07:40 WBC 2.7 L RBC 3.12 L Hgb 9.3 L Hct 27.5 L MCV 88.2 MCH 29.9 MCHC 33.8 RDW 14.8 Plt Count 68 L MPV 11.1 H Prelim Diff (Auto) Manual diff required WBC Differential Manual diff final Seg Neuts % (Manual) 39 Band Neuts % (Manual) 5 Lymphocytes % (Manual) 22 Monocytes % (Manual) 11 H Eosinophils % (Manual) 16 H Basophils % (Manual) 2 Myelocytes % (Man) 4 H Blast Cells % (Manual) 1 H Abs Neuts (Manual) 1.3 L Differential Comment . Platelet Estimate Low L Platelet Morphology Enlarged H Ovalocytes 1+ H Lab - Chemistry Results 06/02/18 07:40 Sodium 139 Potassium 4.6 Chloride 103 Carbon Dioxide 27.5 Anion Gap 9 BUN 41 H Creatinine 1.02 H Estimated GFR 53 L Random Glucose 85 Calcium 7.7 L Phosphorus 3.3 Magnesium 1.6 Total Bilirubin 0.3 AST 29 ALT 21 Alkaline Phosphatase 85 Total Protein 5.1 L Albumin 1.6 L Imaging: ITS Impressions Abdomen/Bladder Ultrasound 05/06/18 00:00 CONCLUSION: 1. Increased renal echogenicity characteristic of medical renal disease. Small cyst right kidney. Dependent debris in the bladder. Tube Check 05/20/18 00:00 CONCLUSION: 1. Uncomplicated tube injection as above. The gastrojejunostomy tube is in good position. If there is concern for duodenal stricture resulting in a functional obstruction consideration could be made to the administration of barium either orally or through the gastric lumen of the tube to assess for any obstruction. Thin iodinated contrast would be limited in trying to assess this. Upper GI Series 05/21/18 00:00 CONCLUSION: No evidence of gastric outlet or duodenal obstruction. Abdomen/Pelvis CT 05/22/18 00:00 CONCLUSION: 1. Diverticulosis without perceptible diverticulitis or other acute inflammatory changes. 2. The gastrojejunostomy tube appears appropriately positioned. No perceptible associated acute complication. 3. There are scattered tiny nonobstructing stones of both kidneys and a small cyst on the right. 4. Small sliding-type hiatal hernia again seen. Chest CT 05/22/18 16:12 CONCLUSION: 1. Moderate left pleural effusion with atelectasis of the left lower lobe. 2. Mild right base atelectasis, improved compared to prior CT. 3. Right upper lobe pulmonary nodules are stable but the larger one remains concerning for primary bronchogenic carcinoma. Chest Ultrasound 05/23/18 00:00 CONCLUSION: 1. Lastly 360 cc of pleural effusion on the left. This does not appear loculated or complex. Site was marked Thoracentesis Ultrasound 05/23/18 00:00 CONCLUSION: Uncomplicated ultrasound-guided left chest thoracentesis as above. Extremity Arterial Study 05/24/18 00:00 CONCLUSION: 1. Severe reduction of the ABIs bilaterally. Abdomen X-Ray 05/26/18 00:00 CONCLUSION: 1. GJ tube appears to be in appropriate position with distal end of the jejunal feeding tube in the left upper quadrant. 2. Persistent pleural-parenchymal opacity at the left lung base. Chest CTA 05/26/18 00:00 CONCLUSION: 1. No evidence for pulmonary embolism. 2. Bibasilar consolidation. 3. Prominent nodule in the right upper lobe again seen measuring 13 mm concerning for malignancy. 4. Patchy opacities in the lingula and left lower lobe likely infectious. Venous Doppler Study 05/30/18 00:00 CONCLUSION: Significant interval recanalization of prior extensive right leg DVT Left leg remains normal in appearance. Chest X-Ray 05/30/18 07:29 CONCLUSION: Interval improvement. Less interstitial edema. Trach tube in good position. Physical Exam: GENERAL: NAD thin chronically ill apperaing SKIN: Warm and dry. NO rash HEAD: Atraumatic. Normocephalic. EYES: Pupils equal and round. No scleral icterus. No injection or drainage. ENT: No nasal bleeding or discharge. Mucous membranes pink and moist. NECK: Trach in place, site OK Passimuir valve in place CARDIOVASCULAR: Regular rate and rhythm. + murmur, holosystolic RESPIRATORY: No accessory muscle use. Less b/ crackles to auscultation. Breath sounds equal bilaterally. GASTROINTESTINAL: Abdomen soft, not tender in LLQ and mildly distended w/o guarding and rebound PEG in place MUSCULOSKELETAL: Extremities without clubbing, cyanosis, + some edema. No obvious deformities. NEUROLOGICAL: awake and able to talk coherently . No obvious cranial nerve deficits. Motor grossly within normal limits. Five out of 5 muscle strength in the arms and legs. Normal speech PSYCHIATRIC: calm flat affect Assessment and Plan - Plan Chronic b/b infiltrates MDRO PSAE persistent colonisation PNA BLL, MDRO PSAE, Acinetobacter H&N cancer sp trach, PEG Diarrhea, neg for C.diff as of 05/25 Mild PEG infection vs irritation growing mixed andrew which is c/w contaminantion, including VRE New sepsis likley source pulmonary vs GI, less likely \ Colonised with multiple MDROs, including PSAE, VRE PEG site does not appear to be the source of infection and already looks better with topical bacitracin UTI, MDRO PDSAE: resolvd on tx with Avycaz Pt is critically ill, stable prognosis is poor due to underlying chronic issue agree with palliative care plan New PNA, PSAE MDRO and Steno malt cont vabomere fu P sputum clx and adjust abx add levaquine fro Steno malt lori RN
[2018-06-04] MEDS: clonazePAM 0.5 MG Tablet G-TUBE PRN ×2 (01:05→21:40)
[2018-06-04] MEDS: Morphine Sulfate Oral Liq 10 MG/0.5 ML Syringe SL PRN ×3 (01:05→21:40)
[2018-06-04] MEDS: MEROPENEM VABORBACTAM IV.SIG SCH ×3 (04:09→21:58)
[2018-06-04] MEDS: SODIUM CHLOR 0.9% IV.SIG SCH ×3 (04:09→21:58)
[2018-06-04] MEDS: Hyoscyamine Liq Drops 0.125 MG/ML 15 ML Bottle SL SCH ×4 (04:09→21:39)
[2018-06-04] MEDS: Levothyroxine 150 MCG Tablet J-TUBE SCH (06:23)
[2018-06-04] MEDS: Loperamide Liq 2 MG/10 ML UDC J-TUBE PRN (10:16)
[2018-06-04] MEDS: Heparin Central Flush 100 UNIT/ML 5 ML Vial IV.FLUSH SCH (10:16)
[2018-06-04] MEDS: Ascorbic Acid 500 MG Tablet J-TUBE SCH ×2 (10:17→21:39)
[2018-06-04] MEDS: buPROPion 75 MG Tablet J-TUBE SCH ×2 (10:17→21:39)
[2018-06-04] MEDS: Lactobacillus Acidophilus/L. Spores Tablet J-TUBE SCH ×3 (10:17→17:20)
[2018-06-04] MEDS: Sodium Chloride 0.9% 2 ML Flush BID IV.FLUSH SCH ×2 (10:17→21:39)
--- NOTE | 2018-06-04 13:56 | P.PN ---
Subjective Interval history: Follow-up for SCC of larynx with trach, PNA, DVT and gastroparesis. Patient is seen and examined resting in bed, appears to be in no acute distress. Patient denies any nausea, vomiting, diarrhea, fevers, chills, cough, shortness of breath or chest pain. Nurse reports no acute events, tolerating Passy-Coggon valve trials today. Physical Exam Vital signs: Vital Signs 06/03/18 16:00 06/03/18 17:52 06/03/18 20:00 Temperature 98.0 F 97.5 F L Pulse Rate 71 72 Respiratory Rate 18 18 Blood Pressure 128/57 L 110/54 L Pulse Oximetry 97 96 94 L 06/04/18 00:00 06/04/18 04:00 06/04/18 08:00 Temperature 97.9 F 97.7 F 98.0 F Pulse Rate 68 74 70 Respiratory Rate 18 16 Blood Pressure 128/59 L 137/55 L 107/53 L Pulse Oximetry 94 L 94 L 93 L 06/04/18 11:50 Temperature Pulse Rate Respiratory Rate Blood Pressure Pulse Oximetry 93 L Intake & Output 06/03/18 06/04/18 06/04/18 18:59 06:59 18:59 Intake Total 1200 / 1200 1150 / 1150 250 / 250 Output Total 1200 / 1200 1200 / 1200 Balance 0 / 0 -50 / -50 250 / 250 Weight 58.7 kg Intake: IV 500 / 500 400 / 400 250 / 250 Levaquin 750 mg Premix Inj 150 150 / 150 ML @ 100 mls/hr IV.SIG Q24H [facility] Rx#:[id number] Vabomere Inj 2,000 MG In NS Inj 500 / 500 250 / 250 250 / 250 250 ML @ 83.333 mls/hr IV.SIG Q8H [facility] Rx#:[id number] Oral 0 / 0 Tube Feeding 600 / 600 550 / 550 Tube Irrigant 100 / 100 Water Bolus Amount 0 / 0 200 / 200 Other 0 / 0 Output: Urine 0 / 0 Stool 0 / 0 Urine/Stool Mix 0 / 0 Emesis 0 / 0 Urine Amount (Catheter) 900 / 900 1000 / 1000 Indwelling Urethral Catheter 900 / 900 1000 / 1000 Gastric Drainage 300 / 300 200 / 200 Gastrojejunostomy Tube 300 / 300 200 / 200 Jejunostomy Tube 0 / 0 Other: # Voids 0 # Incontinent Voids 0 # Urine Diapers 0 Date of Last Bowel Movement 06/03/18 06/03/18 # Bowel Movements 1 # Incontinent Bowel Movements 1 Narrative: GENERAL: Thin, frail female patient, in no acute distress. Awake and alert. SKIN: Warm and dry. HEENT: Atraumatic. Normocephalic. Pupils equal and round. No scleral icterus. No injection or drainage. No nasal bleeding or discharge. Mucous membranes pink and moist. NECK: Trachea midline. Trach with PMV in place with trach collar in place. CARDIOVASCULAR: Regular rate and rhythm. RESPIRATORY: No accessory muscle use. Fair air entry. Upper airway sounds. GASTROINTESTINAL: Abdomen soft, non-tender, nondistended. PEG in place. MUSCULOSKELETAL: Extremities without clubbing, cyanosis, or edema. No obvious deformities. +ingrown toenail right great toe, improved. NEUROLOGICAL: Awake and alert. No obvious cranial nerve deficits. Able to move all extremities spontaneously. Normal speech. PSYCHIATRIC: Appropriate mood and affect; calm and cooperative. - Urinary Catheter Management Indwelling Urethral Catheter Cath placed during this visit: yes Reason for continuing: Chronic Urinary Retention Insertion date: 05/25/18 Insertion time: 14:00 Results - Labs CBC & Chem 7: 06/02/18 07:40 06/02/18 07:40 Microbiology 05/29/18 23:30 Sputum - Tracheal Aspirate Gram Stain - Final 05/29/18 23:30 Sputum - Tracheal Aspirate Sputum Culture - Final Pseudomonas aeruginosa Multidrug Resistant Stenotrophomonas maltophilia 05/29/18 18:50 Blood - Peripheral Aerobic Blood Culture - Final No growth in 5 days 05/29/18 18:50 Blood - Peripheral Anaerobic Blood Culture - Final No growth in 5 days 05/29/18 19:00 Blood - Peripheral Aerobic Blood Culture - Final No growth in 5 days 05/29/18 19:00 Blood - Peripheral Anaerobic Blood Culture - Final QNS - See aerobic report. Assessment and Plan - Assessment (1) Pneumonia Code(s): J18.9 - Pneumonia, unspecified organism Status: Acute (2) GERD (gastroesophageal reflux disease) Code(s): K21.9 - Gastro-esophageal reflux disease without esophagitis Status: Chronic (3) DVT (deep venous thrombosis) Code(s): I82.409 - Acute embolism and thrombosis of unspecified deep veins of unspecified lower extremity Status: Acute (4) Hypothyroidism Code(s): E03.9 - Hypothyroidism, unspecified Status: Chronic (5) Laryngeal squamous cell carcinoma Code(s): C32.9 - Malignant neoplasm of larynx, unspecified Status: Chronic (6) Protein-calorie malnutrition, severe Code(s): E43 - Unspecified severe protein-calorie malnutrition Status: Chronic - Plan 73-year-old female with 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 The rapid response was called and the patient was transferred to ICU where she was placed on 60% oxygenation via trach collar. [facility] reconsulted 05/23 due to hypotension. Currently managed for recurrent respiratory infections with MDRO managed by ID. CT chest does demonstrate a moderate left pleural effusion with left lower lobe atelectasis s/p thoracocentesis. Patient was again sent over to the ICU on 05/29 for acute pulmonary edema with further fever spikes. Patient underwent good diuresis and was made a no code, was eventually stabilized and transition back to hospitalist care. History of squamous cell carcinoma of the larynx now status post tracheostomy due to recurrent aspiration Spiculated right upper lobe pulmonary nodule, multiple R pulmonary nodules. Pulmonary edema -Continue on bronchodilator therapy -Pulmonology following, Dr. Marcelino - Tolerating PMV and NC Loose stools Nausea Cdiff neg 05/25 -IV antiemetics prn, no further N/V TF resumed, tolerating well -continue on Lactinex -monitor stooling. DW nursing staff. MDRO PSAE persistent colonization PNA BLL, MDRO PSAE, Acinetobacter -ID following, Dr. Canchola. Currently on Meropenem. Orders placed 05/[address] Canchola for PICC line. -05/22 Sputum cx: Pseudomonas MDR -05/25 Urine cx: Pseudomonas MDR -05/29 Urine cx: No growth -05/29 BCX: no growth x 3 days -05/29 Sputum cx: Pseudomonas MDR GNR, and Stenotrophomonas maltophilia - ID following, started on IV Levaquin 06/03. Hypomagnesemia - 1.3, resolved s/p replacement DVT right lower extremity on ultrasound 03/27/18 Repeat doppler 05/30 shows significant interval recanalization of prior extensive RLE DVT -Lovenox weight based pending stable plts Neutropenia Thrombocytopenia - HIT neg - Consult Dr. Pineda who is familiar with patient, appreciate assistance GERD -Prevacid per G-tube daily Gastroparesis Chronic moderate protein energy malnutrition -G tube to gravity. Continuous tube feeds with Vital 1.5 @ 55 ml/hr via J tube. -Local wound care with bacitracin to G J-tube site. Hypothyroidism -Continue Synthroid per G-tube daily CKD stage III -Vitamin C supplementation -Monitor renal function, I/O's, electrolytes replacement per protocol. -Diurese as needed Depression/anxiety -Continue Lexapro per G-tube daily. Continue Wellbutrin -Klonopin 0.5 mg per G-tube Right foot ingrown toenail great toe -Seen by podiatry with bedside procedure. Recommend good triple antibiotic ointment with Band-Aid to right phalanx medial border. [place] as needed for pain. Lovenox on hold secondary to thrombocytopenia Discussed Condition With: Patient and RN. (4) Hypothyroidism Qualifiers: Hypothyroidism type: unspecified Qualified Code(s): E03.9 - Hypothyroidism, unspecified
--- NOTE | 2018-06-04 18:37 | P.PN ---
Subjective Interval history: She is talking and has a PM valve in place Remains weak. On a T collar at 30 % Physical Exam Vital signs: Vital Signs 06/03/18 20:00 06/04/18 00:00 06/04/18 04:00 Temperature 97.5 F L 97.9 F 97.7 F Pulse Rate 72 68 74 Respiratory Rate 18 18 Blood Pressure 110/54 L 128/59 L 137/55 L Pulse Oximetry 94 L 94 L 94 L 06/04/18 08:00 06/04/18 11:50 06/04/18 12:00 Temperature 98.0 F 98.0 F Pulse Rate 70 90 Respiratory Rate 16 18 Blood Pressure 107/53 L 100/54 L Pulse Oximetry 93 L 93 L 06/04/18 16:00 06/04/18 17:13 Temperature 98.4 F Pulse Rate 98 H Respiratory Rate 16 Blood Pressure 120/60 Pulse Oximetry 98 93 L Intake & Output 06/03/18 06/04/18 06/04/18 18:59 06:59 18:59 Intake Total 1200 / 1200 1150 / 1150 1250 / 1250 Output Total 1200 / 1200 1200 / 1200 1100 / 1100 Balance 0 / 0 -50 / -50 150 / 150 Weight 58.7 kg Intake: IV 500 / 500 400 / 400 250 / 250 Levaquin 750 mg Premix Inj 150 150 / 150 ML @ 100 mls/hr IV.SIG Q24H [facility] Rx#:[id number] Vabomere Inj 2,000 MG In NS Inj 500 / 500 250 / 250 250 / 250 250 ML @ 83.333 mls/hr IV.SIG Q8H [facility] Rx#:[id number] Oral 0 / 0 Tube Feeding 600 / 600 550 / 550 500 / 500 Tube Irrigant 100 / 100 Water Bolus Amount 0 / 0 200 / 200 500 / 500 Other 0 / 0 Output: Urine 0 / 0 Stool 0 / 0 Urine/Stool Mix 0 / 0 Emesis 0 / 0 Urine Amount (Catheter) 900 / 900 1000 / 1000 850 / 850 Indwelling Urethral Catheter 900 / 900 1000 / 1000 850 / 850 Gastric Drainage 300 / 300 200 / 200 250 / 250 Gastrojejunostomy Tube 300 / 300 200 / 200 250 / 250 Jejunostomy Tube 0 / 0 Other: # Voids 0 # Incontinent Voids 0 # Urine Diapers 0 Date of Last Bowel Movement 06/03/18 06/03/18 # Bowel Movements 1 # Incontinent Bowel Movements 1 Narrative: GENERAL: Thin, frail female patient, in no acute distress. Awake and alert. SKIN: Warm and dry. HEENT: Atraumatic. Normocephalic. Pupils equal and round. No scleral icterus. No injection or drainage. No nasal bleeding or discharge. Mucous membranes pink and moist. NECK: Trachea midline. Trach with PMV in place with trach collar in place. CARDIOVASCULAR: Regular rate and rhythm. RESPIRATORY: No accessory muscle use. occ wheeze and Upper airway sounds. GASTROINTESTINAL: Abdomen soft, non-tender, nondistended. PEG in place. MUSCULOSKELETAL: Extremities without clubbing, cyanosis, or edema. No obvious deformities. NEUROLOGICAL: Awake and alert. No obvious cranial nerve deficits. Able to move all extremities spontaneously. Normal speech. PSYCHIATRIC: Appropriate mood and affect; calm and cooperative. - Urinary Catheter Management Indwelling Urethral Catheter Cath placed during this visit: yes Reason for continuing: Chronic Urinary Retention Insertion date: 05/25/18 Insertion time: 14:00 Results - Labs CBC & Chem 7: 06/02/18 07:40 06/02/18 07:40 Assessment and Plan - Assessment (1) Respiratory failure Code(s): J96.90 - Respiratory failure, unspecified, unspecified whether with hypoxia or hypercapnia Status: Acute (2) Pneumonia Code(s): J18.9 - Pneumonia, unspecified organism Status: Acute (3) Status post trachelectomy Code(s): Z90.710 - Acquired absence of both cervix and uterus Status: Acute (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 Cont T Collar at HS at 30 % FIO2 and wean to keep sat >92 2. Cont nebs with albuterol qid. PRN 3. PM valve daytime PRN to talk 4. Cont Levsin .125 mg qid prn. 5. Tube feeds at 60 CC. 6. O2 N/C 3 L Daytime 7. CBC,BMP in am. 8. Continue Lovenox 60 mg daily
[2018-06-05] MEDS: Hyoscyamine Liq Drops 0.125 MG/ML 15 ML Bottle SL SCH ×3 (04:43→17:14)
[2018-06-05] MEDS: SODIUM CHLOR 0.9% IV.SIG SCH ×3 (04:43→20:38)
[2018-06-05] MEDS: MEROPENEM VABORBACTAM IV.SIG SCH ×3 (04:43→20:38)
[2018-06-05 05:43] LABS: Hematocrit 24.2 % (35.0-46.0); Hemoglobin 8.3 gm/dL (11.6-15.3); Mean Corpuscular HGB Conc 34.2 % (32.0-36.0); Mean Corpuscular Volume 87.7 fL (80.0-100.0); Mean Platelet Volume 10.4 fL (7.0-11.0); Platelet Count 70 th/mm3 (150-450); Red Blood Count 2.76 mil/mm3 (4.00-5.30); Red Cell Distribution Width 14.3 % (11.6-17.2); White Blood Count 2.7 th/mm3 (4.0-11.0)
[2018-06-05] MEDS: Levothyroxine 150 MCG Tablet J-TUBE SCH (06:06)
[2018-06-05 06:10] LABS: Calcium 7.5 mg/dL (8.5-10.1); Carbon Dioxide 31.7 meq/L (21.0-32.0)
--- NOTE | 2018-06-05 08:01 | P.PN ---
Subjective Interval history: Patient doing well overnight. Denies current concerns. No concerns per RN. Physical Exam Vital signs: Vital Signs 06/04/18 11:50 06/04/18 12:00 06/04/18 16:00 Temperature 98.0 F 98.4 F Pulse Rate 90 98 H Respiratory Rate 18 16 Blood Pressure 100/54 L 120/60 Pulse Oximetry 93 L 98 06/04/18 17:13 06/04/18 20:00 06/05/18 00:00 Temperature 97.9 F 97.8 F Pulse Rate 68 70 Respiratory Rate 18 18 Blood Pressure 108/54 L 109/54 L Pulse Oximetry 93 L 94 L 94 L 06/05/18 04:00 Temperature 97.6 F Pulse Rate 69 Respiratory Rate 18 Blood Pressure 102/54 L Pulse Oximetry 94 L Intake & Output 06/04/18 06/05/18 06/05/18 18:59 06:59 18:59 Intake Total 1250 / 1250 1400 / 1400 Output Total 1100 / 1100 775 / 775 Balance 150 / 150 625 / 625 Weight 58.7 kg Intake: IV 250 / 250 650 / 650 Levaquin 750 mg Premix Inj 150 150 / 150 ML @ 100 mls/hr IV.SIG Q24H [facility] Rx#:[id number] Vabomere Inj 2,000 MG In NS Inj 250 / 250 500 / 500 250 ML @ 83.333 mls/hr IV.SIG Q8H [facility] Rx#:[id number] Tube Feeding 500 / 500 550 / 550 Water Bolus Amount 500 / 500 200 / 200 Output: Urine Amount (Catheter) 850 / 850 600 / 600 Indwelling Urethral Catheter 850 / 850 600 / 600 Gastric Drainage 250 / 250 175 / 175 Gastrojejunostomy Tube 250 / 250 175 / 175 Other: Date of Last Bowel Movement 06/03/18 Narrative: GENERAL: Thin, frail female, in no acute distress, lying in bed SKIN: Warm and dry. HEENT: Atraumatic. Normocephalic. PERRLA. No scleral icterus. No injection or drainage. MOM. NECK: Trachea midline. Trach with PMV in place with trach collar in place. CARDIOVASCULAR: Regular rate and rhythm. S1 and S2, no murmurs, rubs, or gallops RESPIRATORY: Upper airway sounds, no use of accessory muscle GASTROINTESTINAL: Abdomen soft, non-tender, nondistended. PEG in place. MUSCULOSKELETAL: Extremities without clubbing, cyanosis, or edema. No obvious deformities. NEUROLOGICAL: AAO x3. No focal deficits. Moves all extremities spontaneously. Normal speech. PSYCHIATRIC: Appropriate mood and affect; calm and cooperative, pleasant - Urinary Catheter Management Indwelling Urethral Catheter Cath placed during this visit: yes Reason for continuing: Chronic Urinary Retention Insertion date: 05/25/18 Insertion time: 14:00 Results - Labs CBC & Chem 7: 06/05/18 05:20 06/05/18 05:20 Laboratory Results - last 24 hr 06/05/18 06/05/18 05:20 05:20 WBC 2.7 L RBC 2.76 L Hgb 8.3 L Hct 24.2 L MCV 87.7 MCH 30.0 MCHC 34.2 RDW 14.3 Plt Count 70 L MPV 10.4 Sodium 138 Potassium 5.0 Chloride 102 Carbon Dioxide 31.7 Anion Gap 4 L BUN 38 H Creatinine 1.21 H Estimated GFR 44 L Random Glucose 102 Calcium 7.5 L Assessment and Plan - Assessment (1) Pneumonia Code(s): J18.9 - Pneumonia, unspecified organism Status: Acute (2) GERD (gastroesophageal reflux disease) Code(s): K21.9 - Gastro-esophageal reflux disease without esophagitis Status: Chronic (3) DVT (deep venous thrombosis) Code(s): I82.409 - Acute embolism and thrombosis of unspecified deep veins of unspecified lower extremity Status: Acute (4) Hypothyroidism Code(s): E03.9 - Hypothyroidism, unspecified Status: Chronic (5) Laryngeal squamous cell carcinoma Code(s): C32.9 - Malignant neoplasm of larynx, unspecified Status: Chronic (6) Protein-calorie malnutrition, severe Code(s): E43 - Unspecified severe protein-calorie malnutrition Status: Chronic - Plan This is a 73-year-old CF with PMHx of 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 The rapid response team was called and the patient was transferred to the ICU where she was placed on 60% oxygenation via trach collar. [facility] reconsulted 05/23 due to hypotension. Currently managed for recurrent respiratory infections with MDRO managed by ID. CT chest does demonstrate a moderate left pleural effusion with left lower lobe atelectasis s/ p thoracocentesis, now managed by [facility] 1. NEURO: -Depression Continue Lexapro and Wellbutrin -Anxiety Cont. Klonopin 0.5 mg per G-tube every 8 hours Temazepam PRN insomnia 2. RESP: -History of squamous cell carcinoma of the larynx now status post tracheostomy due to recurrent aspiration Spiculated right upper lobe pulmonary nodule, multiple R pulmonary nodules Dr. Pineda has discussed risk/ benefits of biopsy with patient and her son on 05/05 and at that time they opted to defer biopsy. Per recent palliative care note there has been discussion of possibly pursuing biopsy. At this point patient is not stable for biopsy. Pulmonology following, Dr. Marcelino -Moderate pleural effusion s/p thoracocentisis on 05/23, Cx Ng at 72hrs (final) Per Pulm 06/04: 1. Cont T Collar at HS at 30 % FIO2 and wean to keep sat >92 2. Cont nebs with albuterol qid. PRN 3. PM valve daytime PRN to talk 4. Cont Levsin .125 mg qid prn. 5. Tube feeds at 60 CC. 6. O2 N/C 3 L Daytime 7. CBC,BMP in am. 3. CV: -Hypotension and Tachycardic, improved Secondary to volume depletion, s/p IVF's in ICU on 05/23 Asymptomatic If recurrs consider gentle IVF's 4. GI: -GERD Cont. Prevacid 30 mg per G-tube daily -Gastroparesis Chronic moderate protein energy malnutrition G tube to gravity, continuous tube feeds with Vital 1.5 @ 55 ml/hr via J tube. Local wound care with bacitracin to G J-tube site. 5. FEN/RENAL: -CKD stage III Vitamin C supplementation Voiding, nephro on board Monitor BMP in AM, Creat 1.1.21 from 1.02 today If trends up may nee gentle IVF's 6. ID: MDRO PSAE persistent colonisation PNA BLL, MDRO PSAE, Acinetobacter ID following, Dr. Canchola. Bld Cx from 05/29 NG x5 days, Urine Cx from 05/29, NG@48hrs (final), Sputum Cx on 05/29+ Pseudomonas MDR, sensitive to only tobramycin We will discuss results with ID to determine further antibiotic adjustment Currently on Vabomere (Meropenem/Vaborbactam) started on 05/29 and Levaquin started on 06/03 per ID Per ID 06/03: New PNA, PSAE MDRO and Steno malt cont vabomere fu P sputum clx and adjust abx add levaquine fro Steno malt 7. HEME: DVT right lower extremity on ultrasound 03/27/18 HOLDING Lovenox 60 mg due to thrombocytopenia, per Hemoccult resume Lovenox if platelets consistently above 75,000 Pancytopenia, chronic Hgb 8.2, Plt 70 from 68 Cont. to monitor ENDO: 8. Hypothyroidism Continue Synthroid 150 mcg per G-tube daily INTEGUMENTARY 9. R 1st digit of foot with increased erythema s/p trimming of ingrow toenail Will reconsult Podiatry (of note patient on ABX for other infections) 10. DVT PPX: Holding Lovenox, SCD's 11. DISPO: Cont. ABX per ID, will discuss sputum culture results with ID as sensitive to only tobramycin Code Status: DNR Discussed Condition With: patient, RN (4) Hypothyroidism Qualifiers: Hypothyroidism type: unspecified Qualified Code(s): E03.9 - Hypothyroidism, unspecified
[2018-06-05] MEDS: Heparin Central Flush 100 UNIT/ML 5 ML Vial IV.FLUSH SCH (08:43)
[2018-06-05] MEDS: Ascorbic Acid 500 MG Tablet J-TUBE SCH ×2 (08:43→20:39)
[2018-06-05] MEDS: Lactobacillus Acidophilus/L. Spores Tablet J-TUBE SCH ×3 (08:43→18:16)
[2018-06-05] MEDS: buPROPion 75 MG Tablet J-TUBE SCH ×2 (08:43→20:39)
[2018-06-05] MEDS: Sodium Chloride 0.9% 2 ML Flush BID IV.FLUSH SCH ×2 (10:02→20:39)
--- NOTE | 2018-06-05 12:07 | P.PN ---
Subjective Interval history: Brownish trach secretions. No fever. Breathing OK. Physical Exam Vital signs: Vital Signs 06/04/18 16:00 06/04/18 17:13 06/04/18 20:00 Temperature 98.4 F 97.9 F Pulse Rate 98 H 68 Respiratory Rate 16 18 Blood Pressure 120/60 108/54 L Pulse Oximetry 98 93 L 94 L 06/05/18 00:00 06/05/18 04:00 06/05/18 08:00 Temperature 97.8 F 97.6 F 97.8 F Pulse Rate 70 69 68 Respiratory Rate 18 18 18 Blood Pressure 109/54 L 102/54 L 99/49 L Pulse Oximetry 94 L 94 L 94 L 06/05/18 11:03 Temperature Pulse Rate Respiratory Rate Blood Pressure Pulse Oximetry 94 L Intake & Output 06/04/18 06/05/18 06/05/18 18:59 06:59 18:59 Intake Total 1250 / 1250 1400 / 1400 Output Total 1100 / 1100 775 / 775 Balance 150 / 150 625 / 625 Weight 58.7 kg Intake: IV 250 / 250 650 / 650 Levaquin 750 mg Premix Inj 150 150 / 150 ML @ 100 mls/hr IV.SIG Q24H [facility] Rx#:[id number] Vabomere Inj 2,000 MG In NS Inj 250 / 250 500 / 500 250 ML @ 83.333 mls/hr IV.SIG Q8H [facility] Rx#:[id number] Tube Feeding 500 / 500 550 / 550 Water Bolus Amount 500 / 500 200 / 200 Output: Urine Amount (Catheter) 850 / 850 600 / 600 Indwelling Urethral Catheter 850 / 850 600 / 600 Gastric Drainage 250 / 250 175 / 175 Gastrojejunostomy Tube 250 / 250 175 / 175 Other: Date of Last Bowel Movement 06/03/18 Narrative: GENERAL: Thin, frail female, in no acute distress, alert and talking. SKIN: Warm and dry. HEENT: Atraumatic. Normocephalic. PERRLA. No scleral icterus. No injection or drainage. MOM. NECK: Trachea midline. Trach with trach collar in place. CARDIOVASCULAR: Regular rate and rhythm. S1 and S2, no murmurs, rubs, or gallops RESPIRATORY: Occ Crackles and no use of accessory muscle GASTROINTESTINAL: Abdomen soft, non-tender, nondistended. PEG in place. MUSCULOSKELETAL: Extremities without clubbing, cyanosis, or edema. No obvious deformities. NEUROLOGICAL: AAO x3. No focal deficits. Moves all extremities spontaneously. Normal speech. PSYCHIATRIC: Appropriate mood and affect; calm and cooperative, pleasant - Urinary Catheter Management Indwelling Urethral Catheter Cath placed during this visit: yes Reason for continuing: Chronic Urinary Retention Insertion date: 05/25/18 Insertion time: 14:00 Results - Labs CBC & Chem 7: 06/05/18 05:20 06/05/18 05:20 Laboratory Results - last 24 hr 06/05/18 06/05/18 05:20 05:20 WBC 2.7 L RBC 2.76 L Hgb 8.3 L Hct 24.2 L MCV 87.7 MCH 30.0 MCHC 34.2 RDW 14.3 Plt Count 70 L MPV 10.4 Sodium 138 Potassium 5.0 Chloride 102 Carbon Dioxide 31.7 Anion Gap 4 L BUN 38 H Creatinine 1.21 H Estimated GFR 44 L Random Glucose 102 Calcium 7.5 L Microbiology 05/29/18 23:30 Sputum - Tracheal Aspirate Gram Stain - Final 05/29/18 23:30 Sputum - Tracheal Aspirate Sputum Culture - Preliminary Pseudomonas aeruginosa Multidrug Resistant Stenotrophomonas maltophilia Assessment and Plan - Assessment (1) Respiratory failure Code(s): J96.90 - Respiratory failure, unspecified, unspecified whether with hypoxia or hypercapnia Status: Acute (2) Pneumonia Code(s): J18.9 - Pneumonia, unspecified organism Status: Acute (3) Status post trachelectomy Code(s): Z90.710 - Acquired absence of both cervix and uterus Status: Acute (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 Cont T Collar at HS at 30 % FIO2 and wean to keep sat >92 2. Cont nebs with albuterol qid. PRN 3. PM valve daytime PRN to talk 4. Cont Levsin .125 mg qid prn. 5. Tube feeds at 60 CC. 6. CXR Saturday 7. CBC,BMP . 8. Continue Lovenox 60 mg daily
--- NOTE | 2018-06-05 16:51 | P.PNPAL ---
Reason for Visit Reason for visit: a. To assist with evaluation and management of symptoms including: dyspnea, pain, debility. b. To assist medical decision maker(s) with: better understanding of current medical conditions; weighing benefits/burdens of medical treatment options; making medical treatment decisions. Subjective Subjective/Interval History: Patient is seen and examined in [facility]. Discussed with nurseChasity. Patient is asleep, does not awaken to my voice or exam. On oxygen via trach collar. t-piece , oxygen sat 94%. Respirations are even and non-labored. No evidence of pain or respiratory distress during my visit. Nurse reports she has been doing well today. Afebrile. Vital signs stable. Creatinine 1.21. Sputum culture multidrug-resistant pseudomonas aeruginosa and stenotrophomonas maltophilia. No new imaging. Advance Directives Living Will: Copy in medical record Health Care Surrogate: Copy in medical record Advance Directives Date on File: 02/08/18 Health Care Surrogate Name and Number: Alireza Whitten, son/medical power of family law attorney: [phone] Documented care wishes:: Patient directs that her healthcare providers and others involved in her care provide, withhold or withdraw treatment in accordance with her wish to not prolong life if she has an incurable and irreversible condition that will result in her within a relatively short time or if she becomes unconscious and to a reasonable degree of medical certainty will not regain consciousness were the likely results and burdens of treatment would outweigh the expected benefits. She requests also that treatment for alleviation of pain or discomfort be provided at all times, even if it hastens her . Additionally she indicates that in the event of severe and irreversible or terminal illness that she wishes for the priority on keeping her comfortable and no aggressive therapy or intervention be done unless expressly approved by Alireza Whitten her son. She does not wish to donate any organs after her . Significant change in goals:: NO CODE. Does not want trach changed out. Otherwise they desire continued aggressive care. Objective Vital Signs: Vital Signs 06/04/18 17:13 06/04/18 20:00 06/05/18 00:00 Temperature 97.9 F 97.8 F Pulse Rate 68 70 Respiratory Rate 18 18 Blood Pressure 108/54 L 109/54 L Pulse Oximetry 93 L 94 L 94 L 06/05/18 04:00 06/05/18 08:00 10/18/18 11:03 Temperature 97.6 F 97.8 F Pulse Rate 69 68 Respiratory Rate 18 18 Blood Pressure 102/54 L 99/49 L Pulse Oximetry 94 L 94 L 94 L 06/05/18 12:00 06/05/18 15:20 Temperature 97.8 F 98 F Pulse Rate 68 68 Respiratory Rate 18 18 Blood Pressure 102/52 L 101/51 L Pulse Oximetry 94 L 94 L Intake & Output 06/04/18 06/05/18 06/05/18 18:59 06:59 18:59 Intake Total 1250 / 1250 1400 / 1400 250 / 250 Output Total 1100 / 1100 775 / 775 Balance 150 / 150 625 / 625 250 / 250 Weight 58.7 kg Intake: IV 250 / 250 650 / 650 250 / 250 Levaquin 750 mg Premix Inj 150 150 / 150 ML @ 100 mls/hr IV.SIG Q24H NAN Rx#:[id number] Vabomere Inj 2,000 MG In NS Inj 250 / 250 500 / 500 250 / 250 250 ML @ 83.333 mls/hr IV.SIG Q8H ANN Rx#:[id number] Tube Feeding 500 / 500 550 / 550 Water Bolus Amount 500 / 500 200 / 200 Output: Urine Amount (Catheter) 850 / 850 600 / 600 Indwelling Urethral Catheter 850 / 850 600 / 600 Gastric Drainage 250 / 250 175 / 175 Gastrojejunostomy Tube 250 / 250 175 / 175 Other: Date of Last Bowel Movement 06/03/18 Physical Exam: CONSTITUTIONAL/GENERAL: this is a pale, chronically ill appearing female with a tracheostomy TUBES/LINES: oxygen via trach collar to trach, PICC line, GJ tube, dressing right great toe. SKIN: Pale. Afebrile. Dressing on right great toe. No jaundice, rashes, or lesions. EYES: eyes closed. CARDIOVASCULAR: RRR. RESPIRATORY/CHEST: diminished lung sounds bilaterally. GASTROINTESTINAL: Abdomen soft, non-tender, nondistended. No guarding. GJ tube. MUSCULOSKELETAL: Extremities without clubbing, cyanosis. NEUROLOGICAL: Asleep. PSYCHIATRIC: Asleep. Diagnostic Tests Laboratory: Laboratory Results - last 72 hr 06/05/18 06/05/18 05:20 05:20 WBC 2.7 L RBC 2.76 L Hgb 8.3 L Hct 24.2 L MCV 87.7 MCH 30.0 MCHC 34.2 RDW 14.3 Plt Count 70 L MPV 10.4 Sodium 138 Potassium 5.0 Chloride 102 Carbon Dioxide 31.7 Anion Gap 4 L BUN 38 H Creatinine 1.21 H Estimated GFR 44 L Random Glucose 102 Calcium 7.5 L Result Diagrams: 06/05/18 05:20 06/05/18 05:20 Microbiology: Microbiology 05/29/18 23:30 Gram Stain - Final Sputum - Tracheal Aspirate Sputum Culture - Preliminary Pseudomonas aeruginosa Multidrug Resistant Stenotrophomonas maltophilia 05/29/18 18:50 Aerobic Blood Culture - Final Blood - Peripheral No growth in 5 days Anaerobic Blood Culture - Final No growth in 5 days 05/29/18 19:00 Aerobic Blood Culture - Final Blood - Peripheral No growth in 5 days Anaerobic Blood Culture - Final QNS - See aerobic report. Imaging: Abdomen/Bladder Ultrasound 05/06/18 00:00 CONCLUSION: 1. Increased renal echogenicity characteristic of medical renal disease. Small cyst right kidney. Dependent debris in the bladder. Tube Check 05/20/18 00:00 CONCLUSION: 1. Uncomplicated tube injection as above. The gastrojejunostomy tube is in good position. If there is concern for duodenal stricture resulting in a functional obstruction consideration could be made to the administration of barium either orally or through the gastric lumen of the tube to assess for any obstruction. Thin iodinated contrast would be limited in trying to assess this. Upper GI Series 05/21/18 00:00 CONCLUSION: No evidence of gastric outlet or duodenal obstruction. Abdomen/Pelvis CT 05/22/18 00:00 CONCLUSION: 1. Diverticulosis without perceptible diverticulitis or other acute inflammatory changes. 2. The gastrojejunostomy tube appears appropriately positioned. No perceptible associated acute complication. 3. There are scattered tiny nonobstructing stones of both kidneys and a small cyst on the right. 4. Small sliding-type hiatal hernia again seen. Chest CT 05/22/18 16:12 CONCLUSION: 1. Moderate left pleural effusion with atelectasis of the left lower lobe. 2. Mild right base atelectasis, improved compared to prior CT. 3. Right upper lobe pulmonary nodules are stable but the larger one remains concerning for primary bronchogenic carcinoma. Chest Ultrasound 05/23/18 00:00 CONCLUSION: 1. Lastly 360 cc of pleural effusion on the left. This does not appear loculated or complex. Site was marked Thoracentesis Ultrasound 05/23/18 00:00 CONCLUSION: Uncomplicated ultrasound-guided left chest thoracentesis as above. Extremity Arterial Study 05/24/18 00:00 CONCLUSION: 1. Severe reduction of the ABIs bilaterally. Abdomen X-Ray 05/26/18 00:00 CONCLUSION: 1. GJ tube appears to be in appropriate position with distal end of the jejunal feeding tube in the left upper quadrant. 2. Persistent pleural-parenchymal opacity at the left lung base. Chest CTA 05/26/18 00:00 CONCLUSION: 1. No evidence for pulmonary embolism. 2. Bibasilar consolidation. 3. Prominent nodule in the right upper lobe again seen measuring 13 mm concerning for malignancy. 4. Patchy opacities in the lingula and left lower lobe likely infectious. Venous Doppler Study 05/30/18 00:00 CONCLUSION: Significant interval recanalization of prior extensive right leg DVT Left leg remains normal in appearance. Chest X-Ray 05/30/18 07:29 CONCLUSION: Interval improvement. Less interstitial edema. Trach tube in good position. 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 Patient now has a tracheostomy. (4) Debility 0-10 Scale: Unable to quantify Pertinent Non-Medical Issues: Psychosocial: Patient is originally from [place]. She has 4 brothers and 2 sisters. She moved to [place] approximately 40 years ago. Patient was for 18 years and then . She and her had 3 sons (Alireza, Sagar and Cameron). Alireza is a physicians medical assistant per diem and lives in [place]. Adalid and Cameron live in [place]. Per patient, Cameron was born with "autism" and live in a longterm Spiritual: [employer] Legal: Pt's son Alireza is medical POA. Ethical issues impacting care: none Important Contacts: medical POA son Alireza Whitten , cell [phone] Prognosis: This is a 73 yo lady with hx laryngeal ca diagnosed 2015 s/p chemo and radiation who presented 04/23 after [facility] called for hypoxia and respiratory distress while in [facility]. She initially presented in January with weakness, dysphagia, weight loss, anemia. Chest CT showing enlarging spiculated nodule, 2 additional right lung nodules. She has since had tracheostomy, GJ, and numerous complications, including PNA, need for GJ replacement. She is likely to continue to decline and encounter complications and setbacks as she deconditions. Unlikely she would tolerate invasive procedure such as long bx, or tolerate the treatment necessary to address a malignancy if that is what her lung nodules are. Code Status: No Code DNR (DNR/DNI does NOT want to go back on mech vent.) Plan: - LEGAL DECISON MAKER - Pt is capacitated to make medical decisions. Should she become incapacitated, she has designated her son Alireza as medical POA. - NO CODE - DNR/DNI does NOT want to go back on mech vent. - GOALS - Goals aggressive short of NO CODE, she does not want tracheostomy changed out. They do not want comfort meds withheld for hypotension or other reasons. - Palliative care will continue to follow. - SYMPTOMS - No new medication recommendations at this time. * pain - risk for pain. multifactorial, coccygeal ulcer, mult lines and catheters, tubes. Has PRN [place] and PRN Roxanol 5mg q4h for breakthrough pain. Sparing need. Will continue to monitor need and effect. No new medication recommendations at this time. Continue current meds, call son prior to making any medication adjustments. * dyspnea - hx laryngeal ca, has trach, now with PNA. BCX pending. denies feeling SOB today. On oxygen via t-piece, PM valve as needed. Duonebs as needed. has PRN meds for anxiety and pain. * depression/anxiety - multifactorial. pt mildly anxious, on lexapro, wellbutrin. has clonazepam 0.5 mg q8h PRN. Has PRN temazepam for insomnia. * debility- multifactorial. 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 respiratory status unlikely to allow for aggressive therapy and rehab. weak. PT following. no further recs. - d/w nurses, Anisa and Kanika. Spoke with patient and son, Waldemar Whitten. - Palliative care will continue to follow during hospital course as condition evolves, to assist patient/decision-maker with understanding of medical conditions, weighing benefits/burdens of treatment options, for clarification of goals of treatment. Additionally will assist with any symptoms of palliative concern Attestation Attestation: To help prompt me to consider important information that might be impacting today's encounter and assessment, information from prior notes written by myself or my colleagues may have been "brought forward" into today's note. My signature on this note, however, is an attestation that I personally performed the exam, history, and/or decision-making noted today, and, unless otherwise indicated, the interactions with patient, family, and staff as well as the review of records all occurred today. I also attest that the listed assessment and stated plan reflect my best clinical judgment today based on the combination of historical information, prior notes, and today's exam/ interactions. When time spent is documented, it refers only to time spent today by the signer, or if indicated, combined time spent today by collaborating physician/nurse practitioner.
--- NOTE | 2018-06-05 17:40 | P.PNID ---
Subjective Remarks: remains on Tpiece pt is having a really good day today OOB in chair, comfortable smiling afebrile Antibiotics: vabomere levaquine Past Medical History: lung ca Allergies/Adverse Reactions: Allergies epinephrine Allergy (Severe, Verified 02/21/18 08:40) TACHYCARDIA penicillin G Allergy (Severe, Verified 02/21/18 08:40) Hives peanut Allergy (Intermediate, Verified 02/21/18 08:40) ANAPHYLAXIS legumes Allergy (Unknown, Verified 03/06/18 21:48) Anaphylaxis UNKNOWN soy Allergy (Verified 03/06/18 21:45) Rash UNKNOWN Objective Vital Signs 06/04/18 20:00 06/05/18 00:00 06/05/18 04:00 Temperature 97.9 F 97.8 F 97.6 F Pulse Rate 68 70 69 Respiratory Rate 18 18 18 Blood Pressure 108/54 L 109/54 L 102/54 L Pulse Oximetry 94 L 94 L 94 L 06/05/18 08:00 06/05/18 11:03 06/05/18 12:00 Temperature 97.8 F 97.8 F Pulse Rate 68 68 Respiratory Rate 18 18 Blood Pressure 99/49 L 102/52 L Pulse Oximetry 94 L 94 L 94 L 06/05/18 15:20 06/05/18 17:31 Temperature 98 F Pulse Rate 68 Respiratory Rate 18 Blood Pressure 101/51 L Pulse Oximetry 94 L 94 L Intake & Output 06/04/18 06/05/18 06/05/18 18:59 06:59 18:59 Intake Total 1250 / 1250 1400 / 1400 950 / 950 Output Total 1100 / 1100 775 / 775 1050 / 1050 Balance 150 / 150 625 / 625 -100 / -100 Weight 58.7 kg Intake: IV 250 / 250 650 / 650 250 / 250 Levaquin 750 mg Premix Inj 150 150 / 150 ML @ 100 mls/hr IV.SIG Q24H ANN Rx#:[id number] Vabomere Inj 2,000 MG In NS Inj 250 / 250 500 / 500 250 / 250 250 ML @ 83.333 mls/hr IV.SIG Q8H ANN Rx#:[id number] Oral 0 / 0 Tube Feeding 500 / 500 550 / 550 400 / 400 Tube Irrigant 100 / 100 Water Bolus Amount 500 / 500 200 / 200 200 / 200 Other 0 / 0 Output: Urine 0 / 0 Stool 0 / 0 Urine/Stool Mix 0 / 0 Emesis 0 / 0 Urine Amount (Catheter) 850 / 850 600 / 600 950 / 950 Indwelling Urethral Catheter 850 / 850 600 / 600 950 / 950 Gastric Drainage 250 / 250 175 / 175 100 / 100 Gastrojejunostomy Tube 250 / 250 175 / 175 100 / 100 Jejunostomy Tube 0 / 0 Other: # Voids 0 # Incontinent Voids 0 # Urine Diapers 0 Date of Last Bowel Movement 06/03/18 06/03/18 # Bowel Movements 1 # Incontinent Bowel Movements 1 05/29/18 23:30 Sputum - Tracheal Aspirate Gram Stain - Final 05/29/18 23:30 Sputum - Tracheal Aspirate Sputum Culture - Preliminary Pseudomonas aeruginosa Multidrug Resistant Stenotrophomonas maltophilia 05/29/18 18:50 Blood - Peripheral Aerobic Blood Culture - Final No growth in 5 days 05/29/18 18:50 Blood - Peripheral Anaerobic Blood Culture - Final No growth in 5 days 05/29/18 19:00 Blood - Peripheral Aerobic Blood Culture - Final No growth in 5 days 05/29/18 19:00 Blood - Peripheral Anaerobic Blood Culture - Final QNS - See aerobic report. Lab - Hematology Results 06/05/18 05:20 WBC 2.7 L RBC 2.76 L Hgb 8.3 L Hct 24.2 L MCV 87.7 MCH 30.0 MCHC 34.2 RDW 14.3 Plt Count 70 L MPV 10.4 Lab - Chemistry Results 06/05/18 05:20 Sodium 138 Potassium 5.0 Chloride 102 Carbon Dioxide 31.7 Anion Gap 4 L BUN 38 H Creatinine 1.21 H Estimated GFR 44 L Random Glucose 102 Calcium 7.5 L Imaging: ITS Impressions Abdomen/Bladder Ultrasound 05/06/18 00:00 CONCLUSION: 1. Increased renal echogenicity characteristic of medical renal disease. Small cyst right kidney. Dependent debris in the bladder. Tube Check 05/20/18 00:00 CONCLUSION: 1. Uncomplicated tube injection as above. The gastrojejunostomy tube is in good position. If there is concern for duodenal stricture resulting in a functional obstruction consideration could be made to the administration of barium either orally or through the gastric lumen of the tube to assess for any obstruction. Thin iodinated contrast would be limited in trying to assess this. Upper GI Series 05/21/18 00:00 CONCLUSION: No evidence of gastric outlet or duodenal obstruction. Abdomen/Pelvis CT 05/22/18 00:00 CONCLUSION: 1. Diverticulosis without perceptible diverticulitis or other acute inflammatory changes. 2. The gastrojejunostomy tube appears appropriately positioned. No perceptible associated acute complication. 3. There are scattered tiny nonobstructing stones of both kidneys and a small cyst on the right. 4. Small sliding-type hiatal hernia again seen. Chest CT 05/22/18 16:12 CONCLUSION: 1. Moderate left pleural effusion with atelectasis of the left lower lobe. 2. Mild right base atelectasis, improved compared to prior CT. 3. Right upper lobe pulmonary nodules are stable but the larger one remains concerning for primary bronchogenic carcinoma. Chest Ultrasound 05/23/18 00:00 CONCLUSION: 1. Lastly 360 cc of pleural effusion on the left. This does not appear loculated or complex. Site was marked Thoracentesis Ultrasound 05/23/18 00:00 CONCLUSION: Uncomplicated ultrasound-guided left chest thoracentesis as above. Extremity Arterial Study 05/24/18 00:00 CONCLUSION: 1. Severe reduction of the ABIs bilaterally. Abdomen X-Ray 05/26/18 00:00 CONCLUSION: 1. GJ tube appears to be in appropriate position with distal end of the jejunal feeding tube in the left upper quadrant. 2. Persistent pleural-parenchymal opacity at the left lung base. Chest CTA 05/26/18 00:00 CONCLUSION: 1. No evidence for pulmonary embolism. 2. Bibasilar consolidation. 3. Prominent nodule in the right upper lobe again seen measuring 13 mm concerning for malignancy. 4. Patchy opacities in the lingula and left lower lobe likely infectious. Venous Doppler Study 05/30/18 00:00 CONCLUSION: Significant interval recanalization of prior extensive right leg DVT Left leg remains normal in appearance. Chest X-Ray 05/30/18 07:29 CONCLUSION: Interval improvement. Less interstitial edema. Trach tube in good position. Physical Exam: GENERAL: NAD OOB in a c hair thin chronically ill apperaing SKIN: Warm and dry. NO rash HEAD: Atraumatic. Normocephalic. EYES: Pupils equal and round. No scleral icterus. No injection or drainage. ENT: No nasal bleeding or discharge. Mucous membranes pink and moist. NECK: Trach in place, site OK Passimuir valve in place CARDIOVASCULAR: Regular rate and rhythm. + murmur, holosystolic RESPIRATORY: No accessory muscle use. failry clear to auscultation. Breath sounds equal bilaterally. GASTROINTESTINAL: Abdomen soft, not tender in LLQ and mildly distended w/o guarding and rebound PEG in place MUSCULOSKELETAL: Extremities without clubbing, cyanosis, No obvious deformities. NEUROLOGICAL: awake and able to talk coherently . No obvious cranial nerve deficits. Motor grossly within normal limits. Five out of 5 muscle strength in the arms and legs. 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 PNA BLL, MDRO PSAE, Acinetobacter H&N cancer sp trach, PEG Diarrhea, neg for C.diff as of 05/25 Mild PEG infection vs irritation growing mixed andrew which is c/w contaminantion, including VRE New sepsis likley source pulmonary vs GI, less likely \ Colonised with multiple MDROs, including PSAE, VRE PEG site does not appear to be the source of infection and already looks better with topical bacitracin UTI, MDRO PDSAE: resolvd on tx with Avycaz Pt is critically ill, stable prognosis is poor due to underlying chronic issue agree with palliative care plan New PNA, PSAE MDRO and Steno malt cont vabomere levaquine lori sandoval microlab: additional sensitivites to follow (vabomere, zerbaxa, avycaz, colistine) lori RN
[2018-06-06] MEDS: Hyoscyamine Liq Drops 0.125 MG/ML 15 ML Bottle SL SCH ×5 (02:23→22:06)
[2018-06-06] MEDS: SODIUM CHLOR 0.9% IV.SIG SCH ×3 (04:04→20:18)
[2018-06-06] MEDS: MEROPENEM VABORBACTAM IV.SIG SCH ×3 (04:04→20:18)
[2018-06-06] MEDS: Levothyroxine 150 MCG Tablet J-TUBE SCH (05:47)
[2018-06-06 07:06] LABS: Hematocrit 23.6 % (35.0-46.0); Hemoglobin 7.9 gm/dL (11.6-15.3); Mean Corpuscular HGB Conc 33.6 % (32.0-36.0); Mean Corpuscular Hemoglobin 29.9 pg (27.0-34.0); Mean Platelet Volume 10.3 fL (7.0-11.0); Platelet Count 68 th/mm3 (150-450); Red Blood Count 2.66 mil/mm3 (4.00-5.30); Red Cell Distribution Width 13.9 % (11.6-17.2); White Blood Count 2.5 th/mm3 (4.0-11.0)
[2018-06-06 07:29] LABS: Albumin 1.6 g/dL (3.4-5.0); Anion Gap 9 meq/L (5-15); Aspartate Aminotransferase 26 U/L (15-37); Blood Urea Nitrogen 39 mg/dL (7-18); Calcium 7.8 mg/dL (8.5-10.1); Carbon Dioxide 29.2 meq/L (21.0-32.0); Chloride 100 meq/L (98-107); Glomerular Filtration Rate 41 mL/min (>89); Glucose,Random 95 mg/dL (74-106); Potassium 5.3 meq/L (3.5-5.1); Sodium 138 meq/L (136-145)
[2018-06-06 07:31] LABS: Alanine Aminotransferase 28 U/L (10-53)
[2018-06-06 07:33] LABS: Alkaline Phosphatase 94 U/L (45-117); Total Protein 5.2 g/dL (6.4-8.2)
[2018-06-06] MEDS: Ascorbic Acid 500 MG Tablet J-TUBE SCH ×2 (08:35→20:19)
[2018-06-06] MEDS: Lactobacillus Acidophilus/L. Spores Tablet J-TUBE SCH ×3 (08:35→17:11)
[2018-06-06] MEDS: buPROPion 75 MG Tablet J-TUBE SCH ×2 (08:36→20:19)
[2018-06-06] MEDS: Heparin Central Flush 100 UNIT/ML 5 ML Vial IV.FLUSH SCH (08:36)
[2018-06-06] MEDS: Sodium Chloride 0.9% 2 ML Flush BID IV.FLUSH SCH ×2 (08:37→20:21)
[2018-06-06 09:31] LABS: Blast Cells 4 % (0-0); Eosinophils 6 % (0-4); Lymphocytes 27 % (9-44); Metamyelocytes 2 % (0-1); Monocytes 11 % (0-8); Myelocytes 14 % (0-0)
[2018-06-06 09:32] LABS: Dimorphic RBC Present
--- NOTE | 2018-06-06 12:06 | P.PN ---
Subjective Interval history: Follow-up for SCC of larynx with trach, PNA, DVT and gastroparesis. Nurse reports no acute events, patient tolerating Passy-Bainbridge valve well. Patient seen and examined resting in bed comfortably in no acute distress. Does report some throat and mouth soreness denies any fevers, chills, nausea, vomiting, shortness of breath or chest pain. Physical Exam Vital signs: Vital Signs 06/05/18 15:20 06/05/18 17:31 06/05/18 20:00 Temperature 98 F 97.3 F L Pulse Rate 68 73 Respiratory Rate 18 20 Blood Pressure 101/51 L 143/56 H Pulse Oximetry 94 L 94 L 94 L 06/06/18 00:00 06/06/18 03:35 06/06/18 04:00 Temperature 97.7 F 98.6 F Pulse Rate 64 88 Respiratory Rate 20 20 Blood Pressure 101/49 L 126/86 Pulse Oximetry 96 95 99 06/06/18 08:00 Temperature 97.2 F L Pulse Rate 70 Respiratory Rate 18 Blood Pressure 118/57 L Pulse Oximetry 93 L Intake & Output 06/05/18 06/06/18 06/06/18 18:59 06:59 18:59 Intake Total 1200 / 1200 1450 / 1450 400 / 400 Output Total 1050 / 1050 1550 / 1550 Balance 150 / 150 -100 / -100 400 / 400 Weight 58.7 kg Intake: IV 500 / 500 250 / 250 400 / 400 Levaquin 750 mg Premix Inj 150 150 / 150 ML @ 100 mls/hr IV.SIG Q24H ANN Rx#:[id number] Vabomere Inj 2,000 MG In NS Inj 500 / 500 250 / 250 250 / 250 250 ML @ 83.333 mls/hr IV.SIG Q8H ANN Rx#:[id number] Oral 0 / 0 100 / 100 Tube Feeding 400 / 400 600 / 600 Tube Irrigant 100 / 100 Water Bolus Amount 200 / 200 500 / 500 Other 0 / 0 Output: Urine 0 / 0 Stool 0 / 0 Urine/Stool Mix 0 / 0 Emesis 0 / 0 0 / 0 Urine Amount (Catheter) 950 / 950 950 / 950 Indwelling Urethral Catheter 950 / 950 950 / 950 Gastric Drainage 100 / 100 600 / 600 Gastrojejunostomy Tube 100 / 100 600 / 600 Jejunostomy Tube 0 / 0 0 / 0 Other: # Voids 0 # Incontinent Voids 0 # Urine Diapers 0 Date of Last Bowel Movement 06/03/18 06/03/18 # Bowel Movements 1 # Incontinent Bowel Movements 1 Narrative: GENERAL: Thin, frail female patient, in no acute distress. Awake and alert. SKIN: Warm and dry. HEENT: Atraumatic. Normocephalic. Pupils equal and round. No scleral icterus. No injection or drainage. No nasal bleeding or discharge. Mucous membranes pink and moist. NECK: Trachea midline. Trach with PMV in place with trach collar in place. CARDIOVASCULAR: Regular rate and rhythm. RESPIRATORY: No accessory muscle use. Fair air entry. Upper airway sounds. GASTROINTESTINAL: Abdomen soft, non-tender, nondistended. PEG in place. MUSCULOSKELETAL: Extremities without clubbing, cyanosis, or edema. No obvious deformities. +ingrown toenail right great toe, improved. NEUROLOGICAL: Awake and alert. No obvious cranial nerve deficits. Able to move all extremities spontaneously. Normal speech. PSYCHIATRIC: Appropriate mood and affect; calm and cooperative. - Urinary Catheter Management Indwelling Urethral Catheter Cath placed during this visit: yes Reason for continuing: Chronic Urinary Retention Insertion date: 05/25/18 Insertion time: 14:00 Results - Labs CBC & Chem 7: 06/06/18 06:15 06/06/18 06:15 Laboratory Results - last 24 hr 06/06/18 06/06/18 06:15 06:15 WBC 2.5 L RBC 2.66 L Hgb 7.9 L Hct 23.6 L MCV 89.0 MCH 29.9 MCHC 33.6 RDW 13.9 Plt Count 68 L MPV 10.3 Prelim Diff (Auto) Manual diff required WBC Differential Manual diff final Seg Neuts % (Manual) 31 Band Neuts % (Manual) 5 Lymphocytes % (Manual) 27 Monocytes % (Manual) 11 H Eosinophils % (Manual) 6 H Metamyelocytes % (Man) 2 H Myelocytes % (Man) 14 H Blast Cells % (Manual) 4 H Abs Neuts (Manual) 1.3 L Differential Comment . Platelet Estimate Low L Platelet Morphology Enlarged H Dimorphic RBCs Present H Sodium 138 Potassium 5.3 H Chloride 100 Carbon Dioxide 29.2 Anion Gap 9 BUN 39 H Creatinine 1.27 H Estimated GFR 41 L Random Glucose 95 Calcium 7.8 L Total Bilirubin 0.4 AST 26 ALT 28 Alkaline Phosphatase 94 Total Protein 5.2 L Albumin 1.6 L Microbiology 05/29/18 23:30 Sputum - Tracheal Aspirate Gram Stain - Final 05/29/18 23:30 Sputum - Tracheal Aspirate Sputum Culture - Preliminary Pseudomonas aeruginosa Multidrug Resistant Stenotrophomonas maltophilia Assessment and Plan - Assessment (1) Pneumonia Code(s): J18.9 - Pneumonia, unspecified organism Status: Acute (2) GERD (gastroesophageal reflux disease) Code(s): K21.9 - Gastro-esophageal reflux disease without esophagitis Status: Chronic (3) DVT (deep venous thrombosis) Code(s): I82.409 - Acute embolism and thrombosis of unspecified deep veins of unspecified lower extremity Status: Acute (4) Hypothyroidism Code(s): E03.9 - Hypothyroidism, unspecified Status: Chronic (5) Laryngeal squamous cell carcinoma Code(s): C32.9 - Malignant neoplasm of larynx, unspecified Status: Chronic (6) Protein-calorie malnutrition, severe Code(s): E43 - Unspecified severe protein-calorie malnutrition Status: Chronic - Plan 73-year-old female with 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 The rapid response was called and the patient was transferred to ICU where she was placed on 60% oxygenation via trach collar. CCM reconsulted 05/23 due to hypotension. Currently managed for recurrent respiratory infections with MDRO managed by ID. CT chest does demonstrate a moderate left pleural effusion with left lower lobe atelectasis s/p thoracocentesis. Patient was again sent over to the ICU on 05/29 for acute pulmonary edema with further fever spikes. Patient underwent good diuresis and was made a no code, was eventually stabilized and transition back to hospitalist care. History of squamous cell carcinoma of the larynx now status post tracheostomy due to recurrent aspiration Spiculated right upper lobe pulmonary nodule, multiple R pulmonary nodules. Pulmonary edema -Continue on bronchodilator therapy -Pulmonology following, Dr. Marcelino - Tolerating PMV and NC Loose stools Nausea Cdiff neg 05/25 -IV antiemetics prn, no further N/V TF resumed, tolerating well -continue on Lactinex -monitor stooling. DW nursing staff. MDRO PSAE persistent colonization PNA BLL, MDRO PSAE, Acinetobacter -ID following, Dr. Canchola. Currently on Meropenem. Orders placed 05/[address] Canchola for PICC line. -05/22 Sputum cx: Pseudomonas MDR -05/25 Urine cx: Pseudomonas MDR -05/29 Urine cx: No growth -05/29 BCX: no growth x 3 days -05/29 Sputum cx: Pseudomonas MDR GNR, and Stenotrophomonas maltophilia - ID following, on Meropenem and Levaquin, additional sensitivities in process Hypomagnesemia Hyperkalemia, acute - 1.6, resolved s/p replacement -Potassium level this morning 5.3, recheck labs in the morning DVT right lower extremity on ultrasound 03/27/18 Repeat doppler 05/30 shows significant interval recanalization of prior extensive RLE DVT -Lovenox weight based pending stable plts Neutropenia Thrombocytopenia Anemia - HIT neg - Consult Dr. Pineda who is familiar with patient, appreciate assistance -Check iron studies GERD -Prevacid per G-tube daily Gastroparesis Chronic moderate protein energy malnutrition -G tube to gravity. Continuous tube feeds with Vital 1.5 @ 55 ml/hr via J tube. -Local wound care with bacitracin to G J-tube site. Hypothyroidism -Continue Synthroid per G-tube daily CKD stage III -Vitamin C supplementation -Monitor renal function, I/O's, electrolytes replacement per protocol. -Diurese as needed Depression/anxiety -Continue Lexapro per G-tube daily. Continue Wellbutrin -Klonopin 0.5 mg per G-tube Right foot ingrown toenail great toe -Seen by podiatry with bedside procedure. Recommend good triple antibiotic ointment with Band-Aid to right phalanx medial border. Oral lolly and soreness -Likely secondary to antibiotic use, Magic mouthwash. Isle as needed for pain. Lovenox on hold secondary to thrombocytopenia Discussed Condition With: Patient and RN (4) Hypothyroidism Qualifiers: Hypothyroidism type: unspecified Qualified Code(s): E03.9 - Hypothyroidism, unspecified
[2018-06-06] MEDS: Nystatin/Diphenhydramine/Lidocaine Mouthwash (Adult) 120 ML Botttle SWISH-SWAL SCH ×3 (12:56→20:20)
--- NOTE | 2018-06-06 18:54 | P.PN ---
Subjective Interval history: Awake and on a PM valve and Off o2. C/O Sore mouth. Physical Exam Vital signs: Vital Signs 06/05/18 20:00 06/06/18 00:00 06/06/18 03:35 Temperature 97.3 F L 97.7 F Pulse Rate 73 64 Respiratory Rate 20 20 Blood Pressure 143/56 H 101/49 L Pulse Oximetry 94 L 96 95 06/06/18 04:00 06/06/18 08:00 06/06/18 12:00 Temperature 98.6 F 97.2 F L 98.6 F Pulse Rate 88 70 71 Respiratory Rate 20 18 20 Blood Pressure 126/86 118/57 L 110/57 L Pulse Oximetry 99 93 L 90 L 06/06/18 16:00 Temperature 98.6 F Pulse Rate 69 Respiratory Rate 22 Blood Pressure 123/59 L Pulse Oximetry 92 L Intake & Output 06/05/18 06/06/18 06/06/18 18:59 06:59 18:59 Intake Total 1200 / 1200 1450 / 1450 1505 / 1505 Output Total 1050 / 1050 1550 / 1550 1950 / 1950 Balance 150 / 150 -100 / -100 -445 / -445 Weight 58.7 kg Intake: IV 500 / 500 250 / 250 650 / 650 Levaquin 750 mg Premix Inj 150 150 / 150 ML @ 100 mls/hr IV.SIG Q24H ANN Rx#:[id number] Vabomere Inj 2,000 MG In NS Inj 500 / 500 250 / 250 500 / 500 250 ML @ 83.333 mls/hr IV.SIG Q8H ANN Rx#:[id number] Oral 0 / 0 100 / 100 60 / 60 Tube Feeding 400 / 400 600 / 600 595 / 595 Tube Irrigant 100 / 100 Water Bolus Amount 200 / 200 500 / 500 200 / 200 Other 0 / 0 Output: Urine 0 / 0 Stool 0 / 0 0 / 0 Urine/Stool Mix 0 / 0 Emesis 0 / 0 0 / 0 Urine Amount (Catheter) 950 / 950 950 / 950 1700 / 1700 Indwelling Urethral Catheter 950 / 950 950 / 950 1700 / 1700 Gastric Drainage 100 / 100 600 / 600 250 / 250 Gastrojejunostomy Tube 100 / 100 600 / 600 250 / 250 Jejunostomy Tube 0 / 0 0 / 0 Other: # Voids 0 # Incontinent Voids 0 # Urine Diapers 0 Date of Last Bowel Movement 06/03/18 06/03/18 # Bowel Movements 1 # Incontinent Bowel Movements 1 Narrative: GENERAL: Thin, frail female patient, in no acute distress. Awake and alert. SKIN: Warm and dry. HEENT: Atraumatic. Normocephalic. Pupils equal and round. No scleral icterus. No injection or drainage. No nasal bleeding or discharge. Mucous membranes pink and moist. NECK: Trachea midline. Trach with PMV in place with trach collar in place. CARDIOVASCULAR: Regular rate and rhythm. RESPIRATORY: No accessory muscle use. Upper airway sounds.Occ Wheeze heard. GASTROINTESTINAL: Abdomen soft, non-tender, nondistended. PEG in place. MUSCULOSKELETAL: Extremities without clubbing, cyanosis, or edema. No obvious deformities. NEUROLOGICAL: Awake and alert. No obvious cranial nerve deficits. Able to move all extremities spontaneously. Normal speech. PSYCHIATRIC: Appropriate mood and affect; calm and cooperative. - Urinary Catheter Management Indwelling Urethral Catheter Cath placed during this visit: yes Reason for continuing: Chronic Urinary Retention Insertion date: 05/25/18 Insertion time: 14:00 Results - Labs CBC & Chem 7: 06/06/18 06:15 06/06/18 06:15 Laboratory Results - last 24 hr 06/06/18 06/06/18 06:15 06:15 WBC 2.5 L RBC 2.66 L Hgb 7.9 L Hct 23.6 L MCV 89.0 MCH 29.9 MCHC 33.6 RDW 13.9 Plt Count 68 L MPV 10.3 Prelim Diff (Auto) Manual diff required WBC Differential Manual diff final Seg Neuts % (Manual) 31 Band Neuts % (Manual) 5 Lymphocytes % (Manual) 27 Monocytes % (Manual) 11 H Eosinophils % (Manual) 6 H Metamyelocytes % (Man) 2 H Myelocytes % (Man) 14 H Blast Cells % (Manual) 4 H Abs Neuts (Manual) 1.3 L Differential Comment . Platelet Estimate Low L Platelet Morphology Enlarged H Dimorphic RBCs Present H Sodium 138 Potassium 5.3 H Chloride 100 Carbon Dioxide 29.2 Anion Gap 9 BUN 39 H Creatinine 1.27 H Estimated GFR 41 L Random Glucose 95 Calcium 7.8 L Total Bilirubin 0.4 AST 26 ALT 28 Alkaline Phosphatase 94 Total Protein 5.2 L Albumin 1.6 L Assessment and Plan - Assessment (1) Respiratory failure Code(s): J96.90 - Respiratory failure, unspecified, unspecified whether with hypoxia or hypercapnia Status: Acute (2) Pneumonia Code(s): J18.9 - Pneumonia, unspecified organism Status: Acute (3) Status post trachelectomy Code(s): Z90.710 - Acquired absence of both cervix and uterus Status: Acute (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 Cont T Collar at HS at 28 % FIO2 and wean to keep sat >92 2. Cont nebs with albuterol qid. PRN 3. PM valve daytime PRN to talk 4. Cont Levsin .125 mg qid prn. 5. Tube feeds at 60 CC. 6. CXR Saturday 7. Antibiotics per ID 8. Continue Lovenox 60 mg daily
[2018-06-07] MEDS: SODIUM CHLOR 0.9% IV.SIG SCH ×3 (04:30→20:15)
[2018-06-07] MEDS: MEROPENEM VABORBACTAM IV.SIG SCH ×3 (04:30→20:15)
[2018-06-07] MEDS: Hyoscyamine Liq Drops 0.125 MG/ML 15 ML Bottle SL SCH ×4 (04:31→21:02)
[2018-06-07] MEDS: Levothyroxine 150 MCG Tablet J-TUBE SCH (06:45)
--- NOTE | 2018-06-07 07:20 | P.PN ---
Subjective Interval history: Patient doing well, RN concerned with increased diarrhea on antibiotics. Patient is on tube feeds without difficulty, Orellana in place. Physical Exam Vital signs: Vital Signs 06/06/18 08:00 06/06/18 12:00 06/06/18 16:00 Temperature 97.2 F L 98.6 F 98.6 F Pulse Rate 70 71 69 Respiratory Rate 18 20 22 Blood Pressure 118/57 L 110/57 L 123/59 L Pulse Oximetry 93 L 90 L 92 L 06/06/18 20:00 06/07/18 00:00 06/07/18 04:00 Temperature 98.3 F 98.6 F 99.0 F Pulse Rate 71 72 69 Respiratory Rate 20 20 20 Blood Pressure 121/43 L 121/51 L 107/54 L Pulse Oximetry 93 L 92 L 98 06/07/18 05:11 Temperature Pulse Rate Respiratory Rate Blood Pressure Pulse Oximetry 96 Intake & Output 06/06/18 06/07/18 06/07/18 18:59 06:59 18:59 Intake Total 1505 / 1505 1050 / 1050 Output Total 1950 / 1950 1600 / 1600 Balance -445 / -445 -550 / -550 Weight 56.9 kg Intake: IV 650 / 650 250 / 250 Levaquin 750 mg Premix Inj 150 150 / 150 ML @ 100 mls/hr IV.SIG Q24H ANN Rx#:[id number] Vabomere Inj 2,000 MG In NS Inj 500 / 500 250 / 250 250 ML @ 83.333 mls/hr IV.SIG Q8H ANN Rx#:[id number] Oral 60 / 60 200 / 200 Tube Feeding 595 / 595 600 / 600 Water Bolus Amount 200 / 200 Output: Stool 0 / 0 0 / 0 Urine/Stool Mix 0 / 0 Emesis 0 / 0 Urine Amount (Catheter) 1700 / 1700 1350 / 1350 Indwelling Urethral Catheter 1700 / 1700 1350 / 1350 Gastric Drainage 250 / 250 250 / 250 Gastrojejunostomy Tube 250 / 250 250 / 250 Jejunostomy Tube 0 / 0 Other: Date of Last Bowel Movement 06/07/18 # Incontinent Bowel Movements 5 Narrative: GENERAL: Thin, frail female, in no acute distress, lying in bed SKIN: Warm and dry. HEENT: Atraumatic. Normocephalic. PERRLA. No scleral icterus. No injection or drainage. MOM. NECK: Trachea midline. Trach with PMV in place with trach collar in place. CARDIOVASCULAR: Regular rate and rhythm. S1 and S2, no murmurs, rubs, or gallops RESPIRATORY: Upper airway sounds, no use of accessory muscle GASTROINTESTINAL: Abdomen soft, non-tender, nondistended. PEG in place. MUSCULOSKELETAL: Extremities without clubbing, cyanosis, or edema. No obvious deformities. NEUROLOGICAL: AAO x3. No focal deficits. Moves all extremities spontaneously. Normal speech. PSYCHIATRIC: Appropriate mood and affect; calm and cooperative, pleasant. - Urinary Catheter Management Indwelling Urethral Catheter Cath placed during this visit: yes Reason for continuing: Chronic Urinary Retention Insertion date: 05/25/18 Insertion time: 14:00 Results - Labs CBC & Chem 7: 06/06/18 06:15 06/06/18 06:15 Laboratory Results - last 24 hr 06/06/18 06/06/18 06:15 06:15 WBC 2.5 L RBC 2.66 L Hgb 7.9 L Hct 23.6 L MCV 89.0 MCH 29.9 MCHC 33.6 RDW 13.9 Plt Count 68 L MPV 10.3 Prelim Diff (Auto) Manual diff required WBC Differential Manual diff final Seg Neuts % (Manual) 31 Band Neuts % (Manual) 5 Lymphocytes % (Manual) 27 Monocytes % (Manual) 11 H Eosinophils % (Manual) 6 H Metamyelocytes % (Man) 2 H Myelocytes % (Man) 14 H Blast Cells % (Manual) 4 H Abs Neuts (Manual) 1.3 L Differential Comment . Platelet Estimate Low L Platelet Morphology Enlarged H Dimorphic RBCs Present H Sodium 138 Potassium 5.3 H Chloride 100 Carbon Dioxide 29.2 Anion Gap 9 BUN 39 H Creatinine 1.27 H Estimated GFR 41 L Random Glucose 95 Calcium 7.8 L Total Bilirubin 0.4 AST 26 ALT 28 Alkaline Phosphatase 94 Total Protein 5.2 L Albumin 1.6 L Assessment and Plan - Assessment (1) Pneumonia Code(s): J18.9 - Pneumonia, unspecified organism Status: Acute (2) GERD (gastroesophageal reflux disease) Code(s): K21.9 - Gastro-esophageal reflux disease without esophagitis Status: Chronic (3) DVT (deep venous thrombosis) Code(s): I82.409 - Acute embolism and thrombosis of unspecified deep veins of unspecified lower extremity Status: Acute (4) Hypothyroidism Code(s): E03.9 - Hypothyroidism, unspecified Status: Chronic (5) Laryngeal squamous cell carcinoma Code(s): C32.9 - Malignant neoplasm of larynx, unspecified Status: Chronic (6) Protein-calorie malnutrition, severe Code(s): E43 - Unspecified severe protein-calorie malnutrition Status: Chronic - Plan This is a 73-year-old CF with PMHx of 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 The rapid response team was called and the patient was transferred to the ICU where she was placed on 60% oxygenation via trach collar. [facility] reconsulted 05/23 due to hypotension. Currently managed for recurrent respiratory infections with MDRO managed by ID. CT chest does demonstrate a moderate left pleural effusion with left lower lobe atelectasis s/ p thoracocentesis, now managed by [facility] 1. NEURO: -Depression Continue Lexapro and Wellbutrin -Anxiety Cont. Klonopin 0.5 mg per G-tube every 8 hours Temazepam PRN insomnia 2. RESP: -History of squamous cell carcinoma of the larynx now status post tracheostomy due to recurrent aspiration Spiculated right upper lobe pulmonary nodule, multiple R pulmonary nodules Dr. Pineda has discussed risk/ benefits of biopsy with patient and her son on 05/05 and at that time they opted to defer biopsy. Per recent palliative care note there has been discussion of possibly pursuing biopsy. At this point patient is not stable for biopsy. Pulmonology following, Dr. Marcelino -Moderate pleural effusion s/p thoracocentisis on 05/23, Cx Ng at 72hrs (final) Per Pulm 06/06: Cont T Collar at HS at 28 % FIO2 and wean to keep sat >92 Cont nebs with albuterol qid. PRN PM valve daytime PRN to talk Cont Levsin .125 mg qid prn. Tube feeds at 60 CC. CXR Saturday Antibiotics per ID 3. CV: -Hypotension and Tachycardic, resolved s/p IVF's Secondary to volume depletion Asymptomatic If recurrs consider gentle IVF's 4. GI: -GERD Cont. PPI and lactobacillus G-tube daily -Gastroparesis Chronic moderate protein energy malnutrition G tube to gravity, continuous tube feeds with Vital Local wound care with bacitracin to G J-tube site, improving -Diarrhea, Likely due to ABX Neg C. Dif on 05/25 Will recheck C. Dif today We will start Lomotil scheduled 5. FEN/RENAL: -CKD stage III Vitamin C supplementation Voiding, nephro on board Monitor BMP in AM, Creat 1.27 on 06/06, pending AM labs If trends up may need gentle IVF's 6. ID: MDRO PSAE persistent colonisation New PNA, MDRO PSAE, Steno malt ID following, Dr. Canchola, appreciate assistance with mgmt Bld Cx from 05/29 NG x5 days, Urine Cx from 05/29, NG@48hrs (final), Sputum Cx on 05/29+ Pseudomonas MDR, sensitive to only tobramycin Currently on Meropenem and Levaquin Per ID 06/05: New PNA, PSAE MDRO and Steno malt cont vabomere levaquine dw microlab: additional sensitivites to follow (vabomere, zerbaxa, avycaz, colistine) 7. HEME: DVT right lower extremity on ultrasound 03/27/18 HOLDING Lovenox 60 mg due to thrombocytopenia, per Hemoccult resume Lovenox if platelets consistently above 75,000 Pancytopenia, chronic Hgb 7.9 on 06/06 from 8.3, Plt 68 on 06/06 from 70 Cont. to monitor, pending AM labs ENDO: 8. Hypothyroidism Continue Synthroid 150 mcg per G-tube daily INTEGUMENTARY 9. R 1st digit of foot with increased erythema s/p trimming of ingrow toenail, improving Podiatry reccs from 06/01: Recommend triple antibiotic with Band-Aid to right hallux medial border Improvement noted to right hallux medial border Please reconsult as needed 10. DVT PPX: Holding Lovenox due to thrombocytopenia per hemeOnc, SCD's 11. DISPO: Cont. ABX per ID reccs, per palm needs chest x-ray Saturday, pending AM labs today, F/U C. Dif results Code Status: DNR Discussed Condition With: patient, RN (4) Hypothyroidism Qualifiers: Hypothyroidism type: unspecified Qualified Code(s): E03.9 - Hypothyroidism, unspecified
[2018-06-07 08:58] LABS: Baso % (Auto) 1.5 % (0.0-2.0); Eos # (Auto) 0.2 th/mm3 (0.0-0.4); Eos % (Auto) 5.7 % (0.0-4.0); Hematocrit 24.5 % (35.0-46.0); Hemoglobin 8.2 gm/dL (11.6-15.3); Lymph # (Auto) 0.8 th/mm3 (1.0-4.8); Lymph % (Auto) 28.4 % (9.0-44.0); Mean Corpuscular HGB Conc 33.6 % (32.0-36.0); Mean Corpuscular Hemoglobin 29.6 pg (27.0-34.0); Mean Corpuscular Volume 88.3 fL (80.0-100.0); Mean Platelet Volume 10.6 fL (7.0-11.0); Mono # (Auto) 0.7 th/mm3 (0.0-0.9); Mono % (Auto) 26.1 % (0.0-8.0); Neut # (Auto) 1.1 th/mm3 (1.8-7.7); Neut % (Auto) 38.3 % (16.0-70.0); Platelet Count 71 th/mm3 (150-450); Red Blood Count 2.77 mil/mm3 (4.00-5.30); Red Cell Distribution Width 13.8 % (11.6-17.2); White Blood Count 2.8 th/mm3 (4.0-11.0)
[2018-06-07] MEDS: Ascorbic Acid 500 MG Tablet J-TUBE SCH ×2 (09:29→20:16)
[2018-06-07] MEDS: Lactobacillus Acidophilus/L. Spores Tablet J-TUBE SCH ×3 (09:29→17:14)
[2018-06-07 09:32] LABS: Calcium 7.9 mg/dL (8.5-10.1); Carbon Dioxide 27.6 meq/L (21.0-32.0); Potassium 4.9 meq/L (3.5-5.1)
[2018-06-07 09:37] LABS: % Iron Saturation 92.4 % (20-50)
[2018-06-07] MEDS: buPROPion 75 MG Tablet J-TUBE SCH ×2 (09:37→20:16)
[2018-06-07 09:43] LABS: Atypical Lymphs 7 % (0-0); Blast Cells 5 % (0-0); Eosinophils 8 % (0-4); Lymphocytes 30 % (9-44); Monocytes 11 % (0-8); Myelocytes 1 % (0-0)
[2018-06-07 09:44] LABS: Acanthocytes Occ; Ovalocytes 1+
[2018-06-07] MEDS: Heparin Central Flush 100 UNIT/ML 5 ML Vial IV.FLUSH SCH (09:55)
[2018-06-07] MEDS: Loperamide Liq 2 MG/10 ML UDC J-TUBE SCH ×4 (09:55→20:16)
[2018-06-07] MEDS: Nystatin/Diphenhydramine/Lidocaine Mouthwash (Adult) 120 ML Botttle SWISH-SWAL SCH ×4 (09:56→20:15)
[2018-06-08] MEDS: SODIUM CHLOR 0.9% IV.SIG SCH ×3 (03:49→20:26)
[2018-06-08] MEDS: MEROPENEM VABORBACTAM IV.SIG SCH ×3 (03:49→20:26)
[2018-06-08] MEDS: Hyoscyamine Liq Drops 0.125 MG/ML 15 ML Bottle SL SCH ×4 (03:52→23:28)
[2018-06-08] MEDS: Levothyroxine 150 MCG Tablet J-TUBE SCH (05:52)
[2018-06-08 07:23] LABS: Mean Corpuscular HGB Conc 34.9 % (32.0-36.0); Mean Corpuscular Hemoglobin 30.5 pg (27.0-34.0); Mean Corpuscular Volume 87.5 fL (80.0-100.0); Mean Platelet Volume 10.3 fL (7.0-11.0); Platelet Count 69 th/mm3 (150-450); Red Blood Count 2.63 mil/mm3 (4.00-5.30); Red Cell Distribution Width 13.9 % (11.6-17.2)
[2018-06-08 07:27] LABS: Albumin 1.8 g/dL (3.4-5.0); Anion Gap 8 meq/L (5-15); Aspartate Aminotransferase 26 U/L (15-37); Blood Urea Nitrogen 43 mg/dL (7-18); Calcium 7.8 mg/dL (8.5-10.1); Carbon Dioxide 27.1 meq/L (21.0-32.0); Chloride 99 meq/L (98-107); Glomerular Filtration Rate 38 mL/min (>89); Glucose,Random 99 mg/dL (74-106); Potassium 5.6 meq/L (3.5-5.1); Sodium 134 meq/L (136-145)
[2018-06-08 07:30] LABS: Alanine Aminotransferase 25 U/L (10-53); Alkaline Phosphatase 100 U/L (45-117); Total Protein 5.4 g/dL (6.4-8.2)
[2018-06-08 09:14] LABS: Blast Cells 7 % (0-0); Eosinophils 11 % (0-4); Lymphocytes 26 % (9-44); Metamyelocytes 4 % (0-1); Monocytes 16 % (0-8); Ovalocytes 1+
[2018-06-08] MEDS: Loperamide Liq 2 MG/10 ML UDC J-TUBE SCH ×4 (09:15→20:27)
[2018-06-08] MEDS: Heparin Central Flush 100 UNIT/ML 5 ML Vial IV.FLUSH SCH (09:15)
[2018-06-08] MEDS: buPROPion 75 MG Tablet J-TUBE SCH ×2 (09:15→20:27)
[2018-06-08] MEDS: Nystatin/Diphenhydramine/Lidocaine Mouthwash (Adult) 120 ML Botttle SWISH-SWAL SCH ×4 (09:15→20:27)
[2018-06-08] MEDS: Ascorbic Acid 500 MG Tablet J-TUBE SCH ×2 (09:15→20:27)
[2018-06-08] MEDS: Lactobacillus Acidophilus/L. Spores Tablet J-TUBE SCH ×3 (09:15→17:09)
[2018-06-08] MEDS ORDERED: Menthol 5.8 MG Lozenge BUCCAL PRN (09:23)
--- NOTE | 2018-06-08 09:34 | P.PN ---
Subjective Interval history: Patient doing well, reports that she would like a halls to assist with throat pain. Per RN no overnight concerns, patient voiding/stooling well. Physical Exam Vital signs: Vital Signs 06/07/18 11:04 06/07/18 12:00 06/07/18 16:00 Temperature 97.8 F 97.7 F Pulse Rate 65 66 Respiratory Rate 20 18 Blood Pressure 108/56 L 110/53 L Pulse Oximetry 98 06/07/18 20:00 06/08/18 00:00 06/08/18 01:18 Temperature 97.9 F 97.3 F L Pulse Rate 69 65 Respiratory Rate 20 20 Blood Pressure 133/54 L 92/50 L Pulse Oximetry 95 97 97 06/08/18 04:00 Temperature 98.4 F Pulse Rate 63 Respiratory Rate 20 Blood Pressure 91/55 L Pulse Oximetry 94 L Intake & Output 06/07/18 06/08/18 06/08/18 18:59 06:59 18:59 Intake Total 1300 / 1300 2450 / 2450 Output Total 1350 / 1350 1250 / 1250 Balance -50 / -50 1200 / 1200 Weight 54.9 kg Intake: IV 0 / 0 900 / 900 Levaquin 750 mg Premix Inj 150 150 / 150 ML @ 100 mls/hr IV.SIG Q48H [facility] Rx#:[id number] Vabomere Inj 2,000 MG In NS Inj 0 / 0 750 / 750 250 ML @ 83.333 mls/hr IV.SIG Q8H [facility] Rx#:[id number] Oral 200 / 200 200 / 200 Tube Feeding 600 / 600 600 / 600 Water Bolus Amount 500 / 500 750 / 750 Output: Emesis 0 / 0 Urine Amount (Catheter) 1350 / 1350 700 / 700 Indwelling Urethral Catheter 1350 / 1350 700 / 700 Gastric Drainage 550 / 550 Gastrojejunostomy Tube 550 / 550 Jejunostomy Tube 0 / 0 Other: Date of Last Bowel Movement 06/07/18 # Incontinent Bowel Movements 0 Narrative: GENERAL: Thin, frail female, in no acute distress, lying in bed SKIN: Warm and dry. HEENT: Atraumatic. Normocephalic. PERRLA. No scleral icterus. No injection or drainage. MOM. NECK: Trachea midline. Trach with PMV in place with trach collar in place. CARDIOVASCULAR: Regular rate and rhythm. S1 and S2, no murmurs, rubs, or gallops RESPIRATORY: Upper airway sounds, no use of accessory muscle GASTROINTESTINAL: Abdomen soft, non-tender, nondistended. PEG in place. MUSCULOSKELETAL: Extremities without clubbing, cyanosis, or edema. No obvious deformities. NEUROLOGICAL: AAO x3. No focal deficits. Moves all extremities spontaneously. Normal speech. PSYCHIATRIC: Appropriate mood and affect; calm and cooperative, pleasant. - Urinary Catheter Management Indwelling Urethral Catheter Cath placed during this visit: yes Reason for continuing: Chronic Urinary Retention Insertion date: 05/25/18 Insertion time: 14:00 Results - Labs CBC & Chem 7: 06/08/18 06:35 06/08/18 06:35 Laboratory Results - last 24 hr 06/07/18 06/07/18 06/08/18 07:58 07:58 06:35 WBC 3.0 L RBC 2.63 L Hgb 8.0 L Hct 23.0 L MCV 87.5 MCH 30.5 MCHC 34.9 RDW 13.9 Plt Count 69 L MPV 10.3 Prelim Diff (Auto) Manual diff required WBC Differential Manual diff final Manual diff final Seg Neuts % (Manual) 29 27 Band Neuts % (Manual) 8 H 8 H Lymphocytes % (Manual) 30 26 Atypical Lymphs % (Man) 7 H Monocytes % (Manual) 11 H 16 H Eosinophils % (Manual) 8 H 11 H Basophils % (Manual) 1 1 Metamyelocytes % (Man) 4 H Myelocytes % (Man) 1 H Blast Cells % (Manual) 5 H 7 H Abs Neuts (Manual) 1.1 L 1.2 L Differential Comment . Platelet Estimate Low L Low L Platelet Morphology Enlarged H Enlarged H Ovalocytes 1+ H 1+ H Acanthocytes (Spur) Occ H Sodium 135 L Potassium 4.9 Chloride 101 Carbon Dioxide 27.6 Anion Gap 6 BUN 40 H Creatinine 1.37 H Estimated GFR 38 L Random Glucose 112 H Calcium 7.9 L Iron 128 TIBC 139 L % Saturation 92.4 H Ferritin 1945 H Total Bilirubin AST ALT Alkaline Phosphatase Total Protein Albumin 06/08/18 06:35 WBC RBC Hgb Hct MCV MCH MCHC RDW Plt Count MPV Prelim Diff (Auto) WBC Differential Seg Neuts % (Manual) Band Neuts % (Manual) Lymphocytes % (Manual) Atypical Lymphs % (Man) Monocytes % (Manual) Eosinophils % (Manual) Basophils % (Manual) Metamyelocytes % (Man) Myelocytes % (Man) Blast Cells % (Manual) Abs Neuts (Manual) Differential Comment Platelet Estimate Platelet Morphology Ovalocytes Acanthocytes (Spur) Sodium 134 L Potassium 5.6 H Chloride 99 Carbon Dioxide 27.1 Anion Gap 8 BUN 43 H Creatinine 1.38 H Estimated GFR 38 L Random Glucose 99 Calcium 7.8 L Iron TIBC % Saturation Ferritin Total Bilirubin 0.3 AST 26 ALT 25 Alkaline Phosphatase 100 Total Protein 5.4 L Albumin 1.8 L Microbiology 05/29/18 23:30 Sputum - Tracheal Aspirate Gram Stain - Final 05/29/18 23:30 Sputum - Tracheal Aspirate Sputum Culture - Final Pseudomonas aeruginosa Multidrug Resistant Stenotrophomonas maltophilia Assessment and Plan - Assessment (1) Pneumonia Code(s): J18.9 - Pneumonia, unspecified organism Status: Acute (2) GERD (gastroesophageal reflux disease) Code(s): K21.9 - Gastro-esophageal reflux disease without esophagitis Status: Chronic (3) DVT (deep venous thrombosis) Code(s): I82.409 - Acute embolism and thrombosis of unspecified deep veins of unspecified lower extremity Status: Acute (4) Hypothyroidism Code(s): E03.9 - Hypothyroidism, unspecified Status: Chronic (5) Laryngeal squamous cell carcinoma Code(s): C32.9 - Malignant neoplasm of larynx, unspecified Status: Chronic (6) Protein-calorie malnutrition, severe Code(s): E43 - Unspecified severe protein-calorie malnutrition Status: Chronic - Plan This is a 73-year-old CF with PMHx of 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 The rapid response team was called and the patient was transferred to the ICU where she was placed on 60% oxygenation via trach collar. [facility] reconsulted 05/23 due to hypotension. Currently managed for recurrent respiratory infections with MDRO managed by ID. CT chest does demonstrate a moderate left pleural effusion with left lower lobe atelectasis s/ p thoracocentesis, now managed by [facility] 1. NEURO: -Depression Continue Lexapro and Wellbutrin -Anxiety Cont. Klonopin 0.5 mg per G-tube every 8 hours Temazepam PRN insomnia 2. RESP: -History of squamous cell carcinoma of the larynx now status post tracheostomy due to recurrent aspiration Spiculated right upper lobe pulmonary nodule, multiple R pulmonary nodules Dr. Pineda has discussed risk/ benefits of biopsy with patient and her son on 05/05 and at that time they opted to defer biopsy. Per recent palliative care note there has been discussion of possibly pursuing biopsy. At this point patient is not stable for biopsy. Pulmonology following, Dr. Marcelino Plan for chest x-ray Saturday per Pulm -Moderate pleural effusion s/p thoracocentisis on 05/23, Cx Ng at 72hrs (final) Per Pulm 06/06: Cont T Collar at HS at 28 % FIO2 and wean to keep sat >92 Cont nebs with albuterol qid. PRN PM valve daytime PRN to talk Cont Levsin .125 mg qid prn. Tube feeds at 60 CC. CXR Saturday Antibiotics per ID 3. CV: -Hypotension and Tachycardic, improved s/p IVF's Secondary to volume depletion Asymptomatic If recurrs consider gentle IVF's 4. GI: -GERD Cont. PPI and lactobacillus G-tube daily -Gastroparesis Chronic moderate protein energy malnutrition G tube to gravity, continuous tube feeds with Vital Local wound care with bacitracin PRN to G J-tube site, resolved -Diarrhea, Likely due to ABX, improving Neg C. Dif on 05/25 Will recheck C. Dif today Cont. Lomotil scheduled 5. FEN/RENAL: -CKD stage III Vitamin C supplementation Voiding, Nephro on board Monitor BMP in AM, Creatinine 1.38 (at baseline) If trends up may need gentle IVF's Corrected Ca 9.5 -Hyperkalemia K 5.6 today We will treat with Albuterol INH x1 Follow-up BMP in AM 6. ID: MDRO PSAE persistent colonisation New PNA, MDRO PSAE, Steno malt ID following, Dr. Canchola, appreciate assistance with mgmt Bld Cx from 05/29 NG x5 days, Urine Cx from 05/29, NG@48hrs (final), Sputum Cx on 05/29+ Pseudomonas MDR, sensitive to only tobramycin Currently on Meropenem and Levaquin Per ID 06/05: New PNA, PSAE MDRO and Steno malt cont vabomere levaquine dw microlab: additional sensitivites to follow (vabomere, zerbaxa, avycaz, colistine) 7. HEME: Chronic DVT right lower extremity on ultrasound 03/27/18 HOLDING Lovenox 60 mg due to thrombocytopenia, per HemeOnc resume Lovenox if platelets consistently above 75,000 Appreciate Heme assistance with management Pancytopenia, chronic Hgb 8 today from 8.2, platelets 69 today from 71 Cont. to monitor ENDO: 8. Hypothyroidism Continue Synthroid 150 mcg per G-tube daily INTEGUMENTARY 9. R 1st digit of foot with increased erythema s/p trimming of ingrow toenail, improving Podiatry reccs from 06/01: Recommend triple antibiotic with Band-Aid to right hallux medial border Improvement noted to right hallux medial border Please reconsult as needed 10. DVT PPX: Holding Lovenox due to thrombocytopenia per HemeOnc, SCD's 11. DISPO: Cont. ABX per ID reccs, per Pulm needs CXR Saturday, F/U C. Dif results Code Status: DNR Discussed Condition With: Patient, RN (4) Hypothyroidism Qualifiers: Hypothyroidism type: unspecified Qualified Code(s): E03.9 - Hypothyroidism, unspecified
[2018-06-08] MEDS: Morphine Sulfate Oral Liq 10 MG/0.5 ML Syringe SL PRN (18:47)
[2018-06-08] MEDS: clonazePAM 0.5 MG Tablet J-TUBE PRN (20:28)
[2018-06-09] MEDS: Hyoscyamine Liq Drops 0.125 MG/ML 15 ML Bottle SL SCH ×4 (04:00→21:24)
[2018-06-09] MEDS: SODIUM CHLOR 0.9% IV.SIG SCH ×3 (04:00→20:00)
[2018-06-09] MEDS: MEROPENEM VABORBACTAM IV.SIG SCH ×3 (04:00→20:00)
[2018-06-09] MEDS: Levothyroxine 150 MCG Tablet J-TUBE SCH (05:33)
[2018-06-09] MEDS: buPROPion 75 MG Tablet J-TUBE SCH ×2 (08:52→21:24)
[2018-06-09] MEDS: Lactobacillus Acidophilus/L. Spores Tablet J-TUBE SCH ×3 (08:53→17:07)
[2018-06-09] MEDS: Loperamide Liq 2 MG/10 ML UDC J-TUBE SCH ×4 (08:53→21:24)
[2018-06-09] MEDS: Ascorbic Acid 500 MG Tablet J-TUBE SCH ×2 (08:53→21:24)
[2018-06-09] MEDS: Heparin Central Flush 100 UNIT/ML 5 ML Vial IV.FLUSH SCH (08:54)
[2018-06-09] MEDS: Nystatin/Diphenhydramine/Lidocaine Mouthwash (Adult) 120 ML Botttle SWISH-SWAL SCH ×4 (08:54→21:24)
--- NOTE | 2018-06-09 12:37 | P.PN ---
Subjective Interval history: Alert and feels OK. On a T Bar and 30 % FIo2. No SOB at rest. Physical Exam Vital signs: Vital Signs 06/08/18 16:00 06/08/18 19:42 06/08/18 20:00 Temperature 97.5 F L 98.1 F Pulse Rate 76 98 H Respiratory Rate 20 20 Blood Pressure 105/55 L 101/58 L Pulse Oximetry 95 99 95 06/09/18 00:00 06/09/18 04:00 06/09/18 08:00 Temperature 97.8 F 97.6 F 97.7 F Pulse Rate 74 70 72 Respiratory Rate 18 18 20 Blood Pressure 108/54 L 89/49 L 94/44 L Pulse Oximetry 96 98 98 06/09/18 10:47 Temperature Pulse Rate Respiratory Rate Blood Pressure Pulse Oximetry 98 Intake & Output 06/08/18 06/09/18 06/09/18 18:59 06:59 18:59 Intake Total 1350 / 1350 800 / 800 250 / 250 Output Total 1475 / 1475 825 / 825 Balance -125 / -125 -25 / -25 250 / 250 Weight 54.9 kg Intake: IV 250 / 250 250 / 250 250 / 250 Vabomere Inj 2,000 MG In NS Inj 250 / 250 250 / 250 250 / 250 250 ML @ 83.333 mls/hr IV.SIG Q8H [facility] Rx#:[id number] Tube Feeding 600 / 600 550 / 550 Water Bolus Amount 500 / 500 Output: Urine Amount (Catheter) 1125 / 1125 500 / 500 Indwelling Urethral Catheter 1125 / 1125 500 / 500 Gastric Drainage 350 / 350 325 / 325 Gastrojejunostomy Tube 350 / 350 325 / 325 Jejunostomy Tube 0 / 0 Narrative: GENERAL: Thin, frail female, in no acute distress. SKIN: Warm and dry. HEENT: Atraumatic. Normocephalic. PERRLA. No scleral icterus. No injection or drainage. MOM. NECK: Trachea midline. Trach with T Bar in place. CARDIOVASCULAR: Regular rate and rhythm. S1 and S2, no murmurs, rubs, or gallops RESPIRATORY: Occ Wheeze heard., no use of accessory muscle GASTROINTESTINAL: Abdomen soft, non-tender, nondistended. PEG in place. MUSCULOSKELETAL: Extremities without clubbing, cyanosis, or edema. No obvious deformities. NEUROLOGICAL: AAO x3. No focal deficits. Moves all extremities spontaneously. Normal speech. PSYCHIATRIC: Appropriate mood and affect; calm and cooperative, pleasant. - Urinary Catheter Management Indwelling Urethral Catheter Cath placed during this visit: yes Reason for continuing: Chronic Urinary Retention Insertion date: 05/25/18 Insertion time: 14:00 Results - Labs CBC & Chem 7: 06/08/18 06:35 06/08/18 06:35 Assessment and Plan - Assessment (1) Respiratory failure Code(s): J96.90 - Respiratory failure, unspecified, unspecified whether with hypoxia or hypercapnia Status: Acute (2) Pneumonia Code(s): J18.9 - Pneumonia, unspecified organism Status: Acute (3) Status post trachelectomy Code(s): Z90.710 - Acquired absence of both cervix and uterus Status: Acute (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 Cont T Bar at 28 % FIO2 . 2. Cont nebs with albuterol qid. PRN 3. PM valve daytime PRN to talk 4. Cont Levsin .125 mg qid prn. 5. Tube feeds at 60 CC. 6. Labs in am. 7. Antibiotics per ID 8. Continue Lovenox 60 mg daily
--- NOTE | 2018-06-09 14:07 | P.PNIM ---
Subjective Interval history: Patient was sleeping upon my entrance. She was awoken easily. She says she feels okay and does not have any current complaints. Physical Exam Vital signs: Vital Signs 06/08/18 16:00 06/08/18 19:42 06/08/18 20:00 Temperature 97.5 F L 98.1 F Pulse Rate 76 98 H Respiratory Rate 20 20 Blood Pressure 105/55 L 101/58 L Pulse Oximetry 95 99 95 06/09/18 00:00 06/09/18 04:00 06/09/18 08:00 Temperature 97.8 F 97.6 F 97.7 F Pulse Rate 74 70 72 Respiratory Rate 18 18 20 Blood Pressure 108/54 L 89/49 L 94/44 L Pulse Oximetry 96 98 98 06/09/18 10:47 06/09/18 12:00 Temperature 97.7 F Pulse Rate 70 Respiratory Rate 18 Blood Pressure 101/60 Pulse Oximetry 98 98 Intake & Output 06/08/18 06/09/18 06/09/18 18:59 06:59 18:59 Intake Total 1350 / 1350 800 / 800 250 / 250 Output Total 1475 / 1475 825 / 825 Balance -125 / -125 -25 / -25 250 / 250 Weight 54.9 kg Intake: IV 250 / 250 250 / 250 250 / 250 Vabomere Inj 2,000 MG In NS Inj 250 / 250 250 / 250 250 / 250 250 ML @ 83.333 mls/hr IV.SIG Q8H [facility] Rx#:[id number] Tube Feeding 600 / 600 550 / 550 Water Bolus Amount 500 / 500 Output: Urine Amount (Catheter) 1125 / 1125 500 / 500 Indwelling Urethral Catheter 1125 / 1125 500 / 500 Gastric Drainage 350 / 350 325 / 325 Gastrojejunostomy Tube 350 / 350 325 / 325 Jejunostomy Tube 0 / 0 Narrative: General patient in no acute distress HEENT atraumatic, extraocular movements are intact, trach with PMV in place Cardiovascular S1-S2 audible, RRR, no murmurs rubs or gallops Respiratory mild rhonchi bilaterally Abdomen soft, nontender, nondistended, normal bowel sounds, PEG tube in place Extremities no edema 2+ distal pulses in bilateral upper and lower extremities Neuro patient moves all 4 extremities, sensation is intact bilaterally - Urinary Catheter Management Indwelling Urethral Catheter Cath placed during this visit: yes Reason for continuing: Chronic Urinary Retention Insertion date: 05/25/18 Insertion time: 14:00 Results - Labs CBC & Chem 7: 06/08/18 06:35 06/08/18 06:35 Assessment and Plan - Assessment (1) Pneumonia Code(s): J18.9 - Pneumonia, unspecified organism Status: Acute (2) GERD (gastroesophageal reflux disease) Code(s): K21.9 - Gastro-esophageal reflux disease without esophagitis Status: Chronic (3) DVT (deep venous thrombosis) Code(s): I82.409 - Acute embolism and thrombosis of unspecified deep veins of unspecified lower extremity Status: Acute (4) Hypothyroidism Code(s): E03.9 - Hypothyroidism, unspecified Status: Chronic (5) Laryngeal squamous cell carcinoma Code(s): C32.9 - Malignant neoplasm of larynx, unspecified Status: Chronic (6) Protein-calorie malnutrition, severe Code(s): E43 - Unspecified severe protein-calorie malnutrition Status: Chronic - Plan This is a 73-year-old CF with PMHx of 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 The rapid response team was called and the patient was transferred to the ICU where she was placed on 60% oxygenation via trach collar. [facility] reconsulted 05/23 due to hypotension. Currently managed for recurrent respiratory infections with MDRO managed by ID. CT chest does demonstrate a moderate left pleural effusion with left lower lobe atelectasis s/ p thoracocentesis. 1. MDRO PSAE persistent colonisation New PNA, MDRO PSAE, Steno malt 2.-History of squamous cell carcinoma of the larynx now status post tracheostomy due to recurrent aspiration Spiculated right upper lobe pulmonary nodule, multiple R pulmonary nodules ID following, Dr. Canchola, appreciate assistance with mgmt Bld Cx from 05/29 NG x5 days, Urine Cx from 05/29, NG@48hrs (final), Sputum Cx on 05/29+ Pseudomonas MDR, sensitive to only tobramycin Currently on Vabromere, and levaquin UTI, MDRO PDSAE: resolvd with tx with Avycaz Continue current management. CXR from today ordered. Pulmonary also following. Dr. Pineda has discussed risk/ benefits of biopsy with patient and her son on 05/05 and at that time they opted to defer biopsy. Per recent palliative care note there has been discussion of possibly pursuing biopsy. Moderate pleural effusion s/p thora on 05/23, Cultures neg 3. Depression/anxiety Continue Lexapro and Wellbutrin Continue Klonopin through the G-tube every 8 hours Temazepam as needed for insomnia 4. Gastroesophageal reflux disease Continue PPI and lactobacillus through the G-tube daily. 5. Diarrhea Likely secondary to antibiotics, improving Discussed with nurse today and patient has not had a bowel movement today. C. difficile studies were negative on 05/25 Continue Lomotil. 6. CKD stage III 7. Hyperkalemia Serum creatinine is at baseline 1.3 today. Patient was hyperkalemic yesterday with a potassium level 5.6. Hospitalist yesterday gave the patient albuterol a.m. BMP ordered for today. 8. Hypothyroidism Continue Synthroid 9. Chronic DVT of the right lower extremity Holding Lovenox due to thrombocytopenia. Per heme oncology resume Lovenox if platelets are consistently above 75,000. Current platelet level around 68,000. 10. R 1st digit of foot with increased erythema s/p trimming of ingrow toenail , improving Podiatry reccs from 06/01: Recommend triple antibiotic with Band-Aid to right hallux medial border Improvement noted to right hallux medial border Please reconsult as needed DVT PPX: Holding Lovenox due to thrombocytopenia per HemeOnc, SCD's DISPO: Cont. ABX per ID reccs, per Pulm needs CXR Saturday, F/U C. Dif results (4) Hypothyroidism Qualifiers: Hypothyroidism type: unspecified Qualified Code(s): E03.9 - Hypothyroidism, unspecified
--- NOTE | 2018-06-09 14:39 | XR ---
EXAM DATE: 06/09/2018 12:00 AM EDT AGE/SEX: 73 years / Female INDICATIONS: Shortness of breath. CLINICAL DATA: This is the patient's subsequent encounter. Patient reports that signs and symptoms h ave been present for 2 weeks and indicates a pain score of Nonresponsive. MEDICAL/SURGICAL HISTORY: . Carcinoma, cervical. Carcinoma, rectal. Gastroesophageal reflux dis ease. . Cholecystectomy. Appendectomy. Hysterectomy. COMPARISON: [facility], CHEST 1V SINGLE AP, 05/30/2018. . FINDINGS: There is a tracheostomy tube in place. There is no pneumothorax. There is scattered interstitial infi ltrates bilaterally which appear to be mildly improved compared to the prior examination. The heart s ize is enlarged but stable. The bony structures are intact. There is a right-sided PICC line which ap pears to be in good position. CONCLUSION: 1. There continues to be bilateral interstitial infiltrates which are mildly improved compared to th e prior exam. 2. Right-sided PICC line appears to be in good position. Electronically signed by: Carlo Woo MD 06/09/2018 2:38 PM EDT
[2018-06-09 15:33] LABS: Calcium 7.9 mg/dL (8.5-10.1); Carbon Dioxide 27.6 meq/L (21.0-32.0); Magnesium 1.9 mg/dL (1.5-2.5)
--- NOTE | 2018-06-09 18:07 | P.DIET ---
Nutritional Evaluation Type of nutrition evaluation: follow-up Nutrition consult regarding: Tube Feeding Subjective Barriers to Nutrition: Swallowing problem Subjective Comments: Transferred from [place] with hypoxemic respiratory failure. Has trach/PEG. Objective - Diagnosis Respiratory Failure - Objective % IBW: 99 (IBW = 120#) Body Weight Used for Calculations: Actual (54.1 kg) Energy Needs - Lower Range (kCal/kg): 28 Energy Needs - Upper Range (kCal/kg): 32 Lower Limit kCal/kg (kCals): 1,515 Upper Limit kCal/kg (kCals): 1,731 Lower Limit Protein Factor (Grams per Kg): 1.2 Upper Limit Protein Factor (Grams per Kg): 1.5 Lower Protein Needs (Protein): 65 Upper Protein Needs (Protein): 81 Dietitian Reviewed in Medical Record: Curent medications, Intake & Output, Labs , Medical history, Tube feeding Diet Order: TF'ing ONLY Objective Comments: Meds include: Vit C, levsin, lactinex, synthroid, reglan, wellbutrin, lexapro 03/19 esophagogastroduodenoscopy with esphageal dilation 03/21 panendoscopy Labs Include: BUN 53, Creatinine 1.57, estGFR 32, Glucose 92 LBM 06/07, +UOP 1625ml Feeding - Current Tube Feeding Tube Feeding Product: Vital 1.5 Tube Feeding Rate: 50 Current kCals Provided by Tube Feedin,650 Current Protein Provided by Tube Feeding (gPRO): 74 Medications That Affect Tube Feeding Run Time: Synthroid (TF'ing held 1-hour before and 1-hour after administering Synthroid) Total Time Off: 2 hours Current Free H2O Provided (m/l): 840 Assessment Assessment: Pt. continues at nutritional risk r/t need for TF'ing. Pt tolerating TF'ing w/ Vital 1.5 @ goal rate 55 ml/hr x 22 hours, providing for pt's assessed needs. Free water flushes per MD. Labs reviewed-monitor renal labs closely. Wt changes noted. Recommendations: 1. TF'ing w/Vital 1.5 @ goal rate 55 ml/hr x 22 hours, provides for pt's assessed needs 2. Free water flushes per MD Dietitian to Monitor: Lab values, Renal labs, Intake & Output, Tube feeding tolerance, Weight change, Medical course
[2018-06-09] MEDS: clonazePAM 0.5 MG Tablet J-TUBE PRN (21:25)
[2018-06-10] MEDS: MEROPENEM VABORBACTAM IV.SIG SCH ×3 (04:23→20:56)
[2018-06-10] MEDS: SODIUM CHLOR 0.9% IV.SIG SCH ×3 (04:23→20:56)
[2018-06-10] MEDS: Hyoscyamine Liq Drops 0.125 MG/ML 15 ML Bottle SL SCH ×4 (04:23→21:52)
[2018-06-10] MEDS: Levothyroxine 150 MCG Tablet J-TUBE SCH (06:08)
[2018-06-10] MEDS: Morphine Sulfate Oral Liq 10 MG/0.5 ML Syringe SL PRN (06:37)
[2018-06-10] MEDS: Loperamide Liq 2 MG/10 ML UDC J-TUBE SCH ×4 (09:10→20:57)
[2018-06-10] MEDS: Heparin Central Flush 100 UNIT/ML 5 ML Vial IV.FLUSH SCH (09:10)
[2018-06-10] MEDS: Ascorbic Acid 500 MG Tablet J-TUBE SCH ×2 (09:11→20:57)
[2018-06-10] MEDS: buPROPion 75 MG Tablet J-TUBE SCH ×2 (09:11→20:57)
--- NOTE | 2018-06-10 09:11 | P.PNIM ---
Subjective Interval history: Nursing denies any deterioration since last night. It is difficult for me to understand the patient due to her having almost no voice but she appears to mouth that her trach site is sore. Renal function appears to be getting worse over the last 2 days. Physical Exam Vital signs: Vital Signs 06/09/18 10:47 06/09/18 12:00 06/09/18 16:00 Temperature 97.7 F 98.2 F Pulse Rate 70 86 Respiratory Rate 18 20 Blood Pressure 101/60 98/48 L Pulse Oximetry 98 98 100 06/09/18 18:10 06/09/18 20:00 06/10/18 00:00 Temperature 97.7 F 97.9 F Pulse Rate 69 69 Respiratory Rate 18 18 Blood Pressure 103/51 L 98/48 L Pulse Oximetry 100 96 96 06/10/18 04:00 06/10/18 04:16 06/10/18 08:00 Temperature 97.7 F 98.3 F Pulse Rate 67 69 Respiratory Rate 18 20 Blood Pressure 95/48 L 99/49 L Pulse Oximetry 96 97 97 Intake & Output 06/09/18 06/10/18 06/10/18 18:59 06:59 18:59 Intake Total 500 / 500 1150 / 1150 Output Total 900 / 900 1050 / 1050 Balance -400 / -400 100 / 100 Weight 55.8 kg Intake: IV 500 / 500 400 / 400 Levaquin 750 mg Premix Inj 150 150 / 150 ML @ 100 mls/hr IV.SIG Q48H [facility] Rx#:[id number] Vabomere Inj 2,000 MG In NS Inj 500 / 500 250 / 250 250 ML @ 83.333 mls/hr IV.SIG Q8H [facility] Rx#:[id number] Tube Feeding 550 / 550 Water Bolus Amount 200 / 200 Output: Urine Amount (Catheter) 500 / 500 850 / 850 Indwelling Urethral Catheter 500 / 500 850 / 850 Gastric Drainage 400 / 400 200 / 200 Gastrojejunostomy Tube 200 / 200 Jejunostomy Tube 400 / 400 Narrative: No secretions or erythema noted around trach site, appears to be in place Clear lungs bilaterally, unlabored breathing Frail appearing elderly white female, no acute distress, sleeping comfortably, awoken when prompted easily - Urinary Catheter Management Indwelling Urethral Catheter Cath placed during this visit: yes Reason for continuing: Chronic Urinary Retention Insertion date: 05/25/18 Insertion time: 14:00 Results - Labs CBC & Chem 7: 06/08/18 06:35 06/09/18 14:40 Laboratory Results - last 24 hr 06/09/18 14:40 Sodium 137 Potassium 5.0 Chloride 102 Carbon Dioxide 27.6 Anion Gap 7 BUN 53 H Creatinine 1.57 H Estimated GFR 32 L Random Glucose 94 Calcium 7.9 L Magnesium 1.9 - Imaging Impressions Chest X-Ray 06/09/18 00:00 CONCLUSION: 1. There continues to be bilateral interstitial infiltrates which are mildly improved compared to the prior exam. 2. Right-sided PICC line appears to be in good position. Assessment and Plan - Assessment (1) Pneumonia Code(s): J18.9 - Pneumonia, unspecified organism Status: Acute (2) GERD (gastroesophageal reflux disease) Code(s): K21.9 - Gastro-esophageal reflux disease without esophagitis Status: Chronic (3) DVT (deep venous thrombosis) Code(s): I82.409 - Acute embolism and thrombosis of unspecified deep veins of unspecified lower extremity Status: Acute (4) Hypothyroidism Code(s): E03.9 - Hypothyroidism, unspecified Status: Chronic (5) Laryngeal squamous cell carcinoma Code(s): C32.9 - Malignant neoplasm of larynx, unspecified Status: Chronic (6) Protein-calorie malnutrition, severe Code(s): E43 - Unspecified severe protein-calorie malnutrition Status: Chronic - Plan This is a 73-year-old female with 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 The rapid response was called and the patient was transferred to ICU where she was placed on 60% oxygenation via trach collar. [facility] reconsulted 05/23 due to hypotension. Currently managed for recurrent respiratory infections with MDRO managed by ID. CT chest does demonstrate a moderate left pleural effusion with left lower lobe atelectasis s/p thoracocentesis. Patient was again sent over to the ICU on 05/29 for acute pulmonary edema with further fever spikes. Patient underwent diuresis and was made a no code, was eventually stabilized and transition back to hospitalist care. MDRO PSAE persistent colonisation New PNA, MDRO PSAE, Steno malt History of squamous cell carcinoma of the larynx now status post tracheostomy due to recurrent aspiration Spiculated right upper lobe pulmonary nodule, multiple R pulmonary nodules ID following, Dr. Canchola, appreciate assistance with mgmt Bld Cx from 05/29 NG x5 days, Urine Cx from 05/29, NG@48hrs (final), Sputum Cx on 05/29+ Pseudomonas MDR, sensitive to only tobramycin Currently on Vabromere, and levaquin UTI, MDRO PDSAE: resolvd with tx with Avycaz Continue current management. Pulmonary also following. Dr. Pineda has discussed risk/ benefits of biopsy with patient and her son on 05/05 and at that time they opted to defer biopsy. Per recent palliative care note there has been discussion of possibly pursuing biopsy. Moderate pleural effusion s/p thora on 05/23, Cultures neg Acute kidney injury Rechecking BMP today Depression/anxiety Continue Lexapro and Wellbutrin Continue Klonopin through the G-tube every 8 hours Temazepam as needed for insomnia Gastroesophageal reflux disease Continue PPI and lactobacillus through the G-tube daily. Diarrhea Likely secondary to antibiotics, improving Discussed with nurse today and patient has not had a bowel movement today. C. difficile studies were negative on 05/25 Continue Lomotil. Chronic DVT of the right lower extremity Holding Lovenox due to thrombocytopenia. Per heme oncology resume Lovenox if platelets are consistently above 75,000. Rechecking CBC today R 1st digit of foot with increased erythema s/p trimming of ingrow toenail Podiatry reccs from 06/01: Recommend triple antibiotic with Band-Aid to right hallux medial border DVT PPX: Holding Lovenox due to thrombocytopenia per HemeOnc, SCD's (4) Hypothyroidism Qualifiers: Hypothyroidism type: unspecified Qualified Code(s): E03.9 - Hypothyroidism, unspecified
[2018-06-10] MEDS: Nystatin/Diphenhydramine/Lidocaine Mouthwash (Adult) 120 ML Botttle SWISH-SWAL SCH ×4 (09:12→20:57)
[2018-06-10] MEDS: Lactobacillus Acidophilus/L. Spores Tablet J-TUBE SCH ×3 (09:12→17:01)
[2018-06-10 10:30] LABS: Hematocrit 21.6 % (35.0-46.0); Hemoglobin 7.5 gm/dL (11.6-15.3); Mean Corpuscular HGB Conc 34.9 % (32.0-36.0); Mean Corpuscular Hemoglobin 30.3 pg (27.0-34.0); Platelet Count 70 th/mm3 (150-450); Red Blood Count 2.48 mil/mm3 (4.00-5.30); Red Cell Distribution Width 13.8 % (11.6-17.2); White Blood Count 3.1 th/mm3 (4.0-11.0)
[2018-06-10 10:50] LABS: Calcium 8.3 mg/dL (8.5-10.1); Carbon Dioxide 28.8 meq/L (21.0-32.0); Potassium 5.2 meq/L (3.5-5.1)
--- NOTE | 2018-06-10 12:36 | P.PN ---
Subjective Interval history: Alert and has a PM valve on. on a Trach collar. No fever. Physical Exam Vital signs: Vital Signs 06/09/18 16:00 06/09/18 18:10 06/09/18 20:00 Temperature 98.2 F 97.7 F Pulse Rate 86 69 Respiratory Rate 20 18 Blood Pressure 98/48 L 103/51 L Pulse Oximetry 100 100 96 06/10/18 00:00 06/10/18 04:00 06/10/18 04:16 Temperature 97.9 F 97.7 F Pulse Rate 69 67 Respiratory Rate 18 18 Blood Pressure 98/48 L 95/48 L Pulse Oximetry 96 96 97 06/10/18 08:00 06/10/18 10:19 Temperature 98.3 F Pulse Rate 69 Respiratory Rate 20 Blood Pressure 99/49 L Pulse Oximetry 97 98 Intake & Output 06/09/18 06/10/18 06/10/18 18:59 06:59 18:59 Intake Total 500 / 500 1150 / 1150 250 / 250 Output Total 900 / 900 1050 / 1050 Balance -400 / -400 100 / 100 250 / 250 Weight 55.8 kg Intake: IV 500 / 500 400 / 400 250 / 250 Levaquin 750 mg Premix Inj 150 150 / 150 ML @ 100 mls/hr IV.SIG Q48H [facility] Rx#:[id number] Vabomere Inj 2,000 MG In NS Inj 500 / 500 250 / 250 250 / 250 250 ML @ 83.333 mls/hr IV.SIG Q8H ANN Rx#:[id number] Tube Feeding 550 / 550 Water Bolus Amount 200 / 200 Output: Urine Amount (Catheter) 500 / 500 850 / 850 Indwelling Urethral Catheter 500 / 500 850 / 850 Gastric Drainage 400 / 400 200 / 200 Gastrojejunostomy Tube 200 / 200 Jejunostomy Tube 400 / 400 Narrative: GENERAL: Elderly W/F alert pale. SKIN: Warm and dry. HEAD: Normocephalic. EYES: No scleral icterus. No injection or drainage. NECK: Supple, trachea midline. Trach in place. No JVD or lymphadenopathy. CARDIOVASCULAR: Regular rate and rhythm without murmurs, gallops, or rubs. RESPIRATORY: Breath sounds equal bilaterally. Few wheezes.No accessory muscle use. GASTROINTESTINAL: Abdomen soft, non-tender, nondistended. MUSCULOSKELETAL: No cyanosis, or edema. BACK: Nontender without obvious deformity. No CVA tenderness. - Urinary Catheter Management Indwelling Urethral Catheter Cath placed during this visit: yes Reason for continuing: Chronic Urinary Retention Insertion date: 05/25/18 Insertion time: 14:00 Results - Labs CBC & Chem 7: 06/10/18 10:18 06/10/18 10:18 Laboratory Results - last 24 hr 06/09/18 06/10/18 06/10/18 14:40 10: 10:18 WBC 3.1 L RBC 2.48 L Hgb 7.5 L Hct 21.6 L MCV 87.0 MCH 30.3 MCHC 34.9 RDW 13.8 Plt Count 70 L MPV 11.0 Sodium 137 136 Potassium 5.0 5.2 H Chloride 102 101 Carbon Dioxide 27.6 28.8 Anion Gap 7 6 BUN 53 H 51 H Creatinine 1.57 H 1.51 H Estimated GFR 32 L 34 L Random Glucose 94 102 Calcium 7.9 L 8.3 L Magnesium 1.9 - Imaging Impressions Chest X-Ray 06/09/18 00:00 CONCLUSION: 1. There continues to be bilateral interstitial infiltrates which are mildly improved compared to the prior exam. 2. Right-sided PICC line appears to be in good position. 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 Cont T Bar at 28 % FIO2 . 2. Cont nebs with albuterol qid. PRN 3. PM valve daytime PRN to talk 4. Cont Levsin .125 mg qid prn. 5. Tube feeds at 60 CC. 6. Up in chair daily 7. Antibiotics per ID 8. Continue Lovenox 60 mg daily
[2018-06-11] MEDS: MEROPENEM VABORBACTAM IV.SIG SCH ×3 (03:57→22:55)
[2018-06-11] MEDS: SODIUM CHLOR 0.9% IV.SIG SCH ×3 (03:57→22:55)
[2018-06-11] MEDS: Hyoscyamine Liq Drops 0.125 MG/ML 15 ML Bottle SL SCH ×4 (03:57→22:41)
[2018-06-11] MEDS: Levothyroxine 150 MCG Tablet J-TUBE SCH (06:11)
[2018-06-11] MEDS: Lactobacillus Acidophilus/L. Spores Tablet J-TUBE SCH ×3 (09:08→17:10)
[2018-06-11] MEDS: Ascorbic Acid 500 MG Tablet J-TUBE SCH ×2 (09:08→22:40)
[2018-06-11] MEDS: Loperamide Liq 2 MG/10 ML UDC J-TUBE SCH ×4 (09:08→22:41)
[2018-06-11] MEDS: Nystatin/Diphenhydramine/Lidocaine Mouthwash (Adult) 120 ML Botttle SWISH-SWAL SCH ×4 (09:09→22:40)
[2018-06-11] MEDS: Heparin Central Flush 100 UNIT/ML 5 ML Vial IV.FLUSH SCH (09:09)
[2018-06-11] MEDS: buPROPion 75 MG Tablet J-TUBE SCH ×2 (09:09→22:40)
--- NOTE | 2018-06-11 09:32 | P.PNIM ---
Subjective Interval history: No overnight events per nursing. Seen with physical therapy, patient does not have any complaints. No shortness of breath. Still with occasional cough. No fever or chills, no abdominal pain. Still with diarrhea. Physical Exam Vital signs: Vital Signs 06/10/18 10:19 06/10/18 12:00 06/10/18 16:00 Temperature 98.4 F 98.3 F Pulse Rate 66 65 Respiratory Rate 18 16 Blood Pressure 96/48 L 98/46 L Pulse Oximetry 98 97 96 06/10/18 17:26 06/10/18 20:00 06/11/18 00:00 Temperature 98.1 F 98 F Pulse Rate 64 67 Respiratory Rate 18 18 Blood Pressure 94/54 L 95/50 L Pulse Oximetry 96 95 94 L 06/11/18 04:00 06/11/18 05:28 Temperature 98.2 F Pulse Rate 72 Respiratory Rate 18 Blood Pressure 101/52 L Pulse Oximetry 94 L 99 Intake & Output 06/10/18 06/11/18 06/11/18 18:59 06:59 18:59 Intake Total 1260 / 1260 1250 / 1250 Output Total 950 / 950 1500 / 1500 Balance 310 / 310 -250 / -250 Weight 55.6 kg Intake: IV 500 / 500 500 / 500 Vabomere Inj 2,000 MG In NS Inj 500 / 500 500 / 500 250 ML @ 83.333 mls/hr IV.SIG Q8H [facility] Rx#:[id number] Tube Feeding 560 / 560 550 / 550 Water Bolus Amount 200 / 200 200 / 200 Output: Urine Amount (Catheter) 950 / 950 900 / 900 Indwelling Urethral Catheter 950 / 950 900 / 900 Gastric Drainage 600 / 600 Gastrojejunostomy Tube 600 / 600 Other: Date of Last Bowel Movement 06/10/18 # Bowel Movements 2 Narrative: Not in distress No secretions or erythema noted around trach site Regular rate and rhythm Clear lungs bilaterally, unlabored breathing Awake, alert, oriented to self and place. - Urinary Catheter Management Indwelling Urethral Catheter Cath placed during this visit: yes Reason for continuing: Chronic Urinary Retention Insertion date: 05/25/18 Insertion time: 14:00 Results - Labs CBC & Chem 7: 06/10/18 10:18 06/10/18 10:18 Laboratory Results - last 24 hr 06/10/18 06/10/18 10:18 10:18 WBC 3.1 L RBC 2.48 L Hgb 7.5 L Hct 21.6 L MCV 87.0 MCH 30.3 MCHC 34.9 RDW 13.8 Plt Count 70 L MPV 11.0 Sodium 136 Potassium 5.2 H Chloride 101 Carbon Dioxide 28.8 Anion Gap 6 BUN 51 H Creatinine 1.51 H Estimated GFR 34 L Random Glucose 102 Calcium 8.3 L Assessment and Plan - Assessment (1) Pneumonia Code(s): J18.9 - Pneumonia, unspecified organism Status: Acute (2) GERD (gastroesophageal reflux disease) Code(s): K21.9 - Gastro-esophageal reflux disease without esophagitis Status: Chronic (3) DVT (deep venous thrombosis) Code(s): I82.409 - Acute embolism and thrombosis of unspecified deep veins of unspecified lower extremity Status: Acute (4) Hypothyroidism Code(s): E03.9 - Hypothyroidism, unspecified Status: Chronic (5) Laryngeal squamous cell carcinoma Code(s): C32.9 - Malignant neoplasm of larynx, unspecified Status: Chronic (6) Protein-calorie malnutrition, severe Code(s): E43 - Unspecified severe protein-calorie malnutrition Status: Chronic - Plan This is a 73-year-old female with 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 The rapid response was called and the patient was transferred to ICU where she was placed on 60% oxygenation via trach collar. [facility] reconsulted 05/23 due to hypotension. Currently managed for recurrent respiratory infections with MDRO managed by ID. CT chest does demonstrate a moderate left pleural effusion with left lower lobe atelectasis s/p thoracocentesis. Patient was again sent over to the ICU on 05/29 for acute pulmonary edema with further fever spikes. Patient underwent diuresis and was made a no code, was eventually stabilized and transition back to hospitalist care. MDRO PSAE persistent colonisation New PNA, MDRO PSAE, Steno malt History of squamous cell carcinoma of the larynx now status post tracheostomy due to recurrent aspiration Spiculated right upper lobe pulmonary nodule, multiple R pulmonary nodules - ID following, Dr. Canchola, appreciate assistance with mgmt, Bld Cx from NG x5 days, Urine Cx from 05/29, NG@48hrs (final), Sputum Cx on 05/29+ Pseudomonas MDR, sensitive to only tobramycin. Currently on Vabomere, and levaquin. Pulmonary following. - UTI, MDRO PDSAE: resolvd with tx with Avycaz Multiple pulmonary nodules- Pulmonary also following. Dr. Pineda has discussed risk/ benefits of biopsy with patient and her son on 05/05 and at that time they opted to defer biopsy. Per recent palliative care note there has been discussion of possibly pursuing biopsy. Moderate pleural effusion s/p thora on 05/23, Cultures neg Acute kidney injury-creatinine stable, GFR stable. Depression/anxiety -Continue Lexapro and Wellbutrin, Continue Klonopin through the G-tube every 8 hours, Temazepam as needed for insomnia Gastroesophageal reflux disease -Continue PPI and lactobacillus through the G-tube daily. Diarrhea -Likely secondary to antibiotics, improving. C. difficile studies were negative on 05/25, Continue Lomotil. Chronic DVT of the right lower extremity -Holding Lovenox due to thrombocytopenia. Per heme oncology resume Lovenox if platelets are consistently above 75,000. Hemoglobin is 7.5, platelet is 70. Continue to hold Lovenox for now. Check CBC in a few days. R 1st digit of foot with increased erythema s/p trimming of ingrow toenail Podiatry reccs from 06/01: Recommend triple antibiotic with Band-Aid to right hallux medial border DVT PPX: Holding Lovenox due to thrombocytopenia per HemeOnc, SCD's (4) Hypothyroidism Qualifiers: Hypothyroidism type: unspecified Qualified Code(s): E03.9 - Hypothyroidism, unspecified
--- NOTE | 2018-06-11 13:04 | P.PN ---
Subjective Interval history: Alert on a PM valve. O2 at 28 %. No fever. Physical Exam Vital signs: Vital Signs 06/10/18 16:00 06/10/18 17:26 06/10/18 20:00 Temperature 98.3 F 98.1 F Pulse Rate 65 64 Respiratory Rate 16 18 Blood Pressure 98/46 L 94/54 L Pulse Oximetry 96 96 95 06/11/18 00:00 06/11/18 04:00 06/11/18 05:28 Temperature 98 F 98.2 F Pulse Rate 67 72 Respiratory Rate 18 18 Blood Pressure 95/50 L 101/52 L Pulse Oximetry 94 L 94 L 99 06/11/18 08:00 06/11/18 10:47 Temperature 98.3 F Pulse Rate 73 Respiratory Rate 20 Blood Pressure 96/46 L Pulse Oximetry 96 98 Intake & Output 06/10/18 06/11/18 06/11/18 18:59 06:59 18:59 Intake Total 1260 / 1260 1250 / 1250 Output Total 950 / 950 1500 / 1500 Balance 310 / 310 -250 / -250 Weight 55.6 kg Intake: IV 500 / 500 500 / 500 Vabomere Inj 2,000 MG In NS Inj 500 / 500 500 / 500 250 ML @ 83.333 mls/hr IV.SIG Q8H [facility] Rx#:[id number] Tube Feeding 560 / 560 550 / 550 Water Bolus Amount 200 / 200 200 / 200 Output: Urine Amount (Catheter) 950 / 950 900 / 900 Indwelling Urethral Catheter 950 / 950 900 / 900 Gastric Drainage 600 / 600 Gastrojejunostomy Tube 600 / 600 Other: Date of Last Bowel Movement 06/10/18 # Bowel Movements 2 Narrative: Elderly W/F Pale Not in distress GENERAL: Emaciated. SKIN: Warm and dry. HEAD: Normocephalic. EYES: No scleral icterus. No injection or drainage. NECK: Supple, trachea midline. No JVD or lymphadenopathy. CARDIOVASCULAR: Regular rate and rhythm without murmurs, gallops, or rubs. RESPIRATORY: Breath sounds equal bilaterally.Occ wheeze heard. No accessory muscle use. GASTROINTESTINAL: Abdomen soft, non-tender, nondistended. MUSCULOSKELETAL: No cyanosis, or edema. BACK: Nontender without obvious deformity. No CVA tenderness. - Urinary Catheter Management Indwelling Urethral Catheter Cath placed during this visit: yes Reason for continuing: Chronic Urinary Retention Insertion date: 05/25/18 Insertion time: 14:00 Results - Labs CBC & Chem 7: 06/10/18 10:18 06/10/18 10:18 Assessment and Plan - Assessment (1) Respiratory failure Code(s): J96.90 - Respiratory failure, unspecified, unspecified whether with hypoxia or hypercapnia Status: Acute (2) Pneumonia Code(s): J18.9 - Pneumonia, unspecified organism Status: Acute (3) Status post trachelectomy Code(s): Z90.710 - Acquired absence of both cervix and uterus Status: Acute (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 Cont T collar at 28 % FIO2 . 2. Cont nebs with albuterol qid. PRN 3. PM valve daytime . 4. Cont Levsin .125 mg qid prn. 5. Tube feeds at 60 CC. 6. Labs in am. 7. Antibiotics per ID 8. Continue Lovenox 60 mg daily
[2018-06-12] MEDS: SODIUM CHLOR 0.9% IV.SIG SCH ×3 (04:44→20:24)
[2018-06-12] MEDS: MEROPENEM VABORBACTAM IV.SIG SCH ×3 (04:44→20:24)
[2018-06-12] MEDS: Hyoscyamine Liq Drops 0.125 MG/ML 15 ML Bottle SL SCH ×4 (04:44→21:38)
[2018-06-12] MEDS: Levothyroxine 150 MCG Tablet J-TUBE SCH (05:00)
[2018-06-12 08:52] LABS: Baso % (Auto) 0.6 % (0.0-2.0); Eos # (Auto) 0.1 th/mm3 (0.0-0.4); Eos % (Auto) 2.7 % (0.0-4.0); Hematocrit 20.4 % (35.0-46.0); Lymph # (Auto) 0.6 th/mm3 (1.0-4.8); Lymph % (Auto) 22.6 % (9.0-44.0); Mean Corpuscular HGB Conc 34.5 % (32.0-36.0); Mean Corpuscular Hemoglobin 30.5 pg (27.0-34.0); Mean Corpuscular Volume 88.5 fL (80.0-100.0); Mean Platelet Volume 10.6 fL (7.0-11.0); Mono # (Auto) 0.9 th/mm3 (0.0-0.9); Mono % (Auto) 31.8 % (0.0-8.0); Neut # (Auto) 1.2 th/mm3 (1.8-7.7); Neut % (Auto) 42.3 % (16.0-70.0); Platelet Count 66 th/mm3 (150-450); Red Cell Distribution Width 13.5 % (11.6-17.2); White Blood Count 2.8 th/mm3 (4.0-11.0)
[2018-06-12] MEDS: buPROPion 75 MG Tablet J-TUBE SCH ×2 (09:00→20:24)
[2018-06-12] MEDS: Nystatin/Diphenhydramine/Lidocaine Mouthwash (Adult) 120 ML Botttle SWISH-SWAL SCH ×4 (09:00→20:24)
[2018-06-12] MEDS: Loperamide Liq 2 MG/10 ML UDC J-TUBE SCH ×4 (09:52→20:24)
[2018-06-12] MEDS: Heparin Central Flush 100 UNIT/ML 5 ML Vial IV.FLUSH SCH (09:52)
[2018-06-12] MEDS: Lactobacillus Acidophilus/L. Spores Tablet J-TUBE SCH ×3 (09:52→18:07)
[2018-06-12] MEDS: Ascorbic Acid 500 MG Tablet J-TUBE SCH ×2 (09:53→20:24)
[2018-06-12 10:36] LABS: Eosinophils 4 % (0-4); Lymphocytes 29 % (9-44); Metamyelocytes 1 % (0-1); Monocytes 30 % (0-8); Myelocytes 7 % (0-0)
[2018-06-12 10:41] LABS: Platelet Morphology Normal (Normal)
--- NOTE | 2018-06-12 11:09 | P.PN ---
Subjective Interval history: Patient seen lying quietly in bed. No new complaints. Nursing reports no adverse events. Physical Exam Vital signs: Vital Signs 06/11/18 12:00 06/11/18 16:00 06/11/18 17:50 Temperature 98.2 F 98.2 F Pulse Rate 73 76 Respiratory Rate 21 22 Blood Pressure 95/52 L 96/54 L Pulse Oximetry 96 98 98 06/11/18 20:00 06/12/18 00:00 06/12/18 04:00 Temperature 98.4 F 98.2 F 98.6 F Pulse Rate 66 68 68 Respiratory Rate 18 20 20 Blood Pressure 96/48 L 98/52 L 113/47 L Pulse Oximetry 95 96 98 06/12/18 05:12 06/12/18 09:00 Temperature Pulse Rate Respiratory Rate Blood Pressure Pulse Oximetry 94 L 97 Intake & Output 06/11/18 06/12/18 06/12/18 18:59 06:59 18:59 Intake Total 1000 / 1000 400 / 400 Output Total 1200 / 1200 1200 / 1200 Balance -200 / -200 -800 / -800 Intake: IV 250 / 250 400 / 400 Levaquin 750 mg Premix Inj 150 150 / 150 ML @ 100 mls/hr IV.SIG Q48H [facility] Rx#:[id number] Vabomere Inj 2,000 MG In NS Inj 250 / 250 250 / 250 250 ML @ 83.333 mls/hr IV.SIG Q8H [facility] Rx#:[id number] Tube Feeding 550 / 550 Water Bolus Amount 200 / 200 Output: Urine Amount (Catheter) 750 / 750 900 / 900 Indwelling Urethral Catheter 750 / 750 900 / 900 Gastric Drainage 450 / 450 300 / 300 Gastrojejunostomy Tube 450 / 450 300 / 300 Other: Date of Last Bowel Movement 06/11/18 06/12/18 # Bowel Movements 1 4 Narrative: GENERAL: Thin, well-developed adult female in no obvious distress. SKIN: Warm and dry. HEAD: Atraumatic. Normocephalic. CARDIOVASCULAR: Regular rate and rhythm. RESPIRATORY: No accessory muscle use. Clear to auscultation. Breath sounds equal bilaterally. Trach in place. GASTROINTESTINAL: Abdomen soft, non-tender, non-distended. Positive bowel sounds. MUSCULOSKELETAL: Extremities without clubbing, cyanosis, or edema. No obvious deformities. NEUROLOGICAL: Awake and alert. No obvious cranial nerve deficits. Motor grossly within normal limits. - Urinary Catheter Management Indwelling Urethral Catheter Cath placed during this visit: yes Reason for continuing: Chronic Urinary Retention Insertion date: 05/25/18 Insertion time: 14:00 Results - Labs CBC & Chem 7: 06/12/18 08:18 06/10/18 10:18 Laboratory Results - last 24 hr 06/12/18 08:18 WBC 2.8 L RBC 2.30 L Hgb 7.0 L Hct 20.4 L* MCV 88.5 MCH 30.5 MCHC 34.5 RDW 13.5 Plt Count 66 L MPV 10.6 Prelim Diff (Auto) Slide review pending Neut % (Auto) 42.3 Lymph % (Auto) 22.6 [place] % (Auto) 31.8 H Eos % (Auto) 2.7 Baso % (Auto) 0.6 Neut # (Auto) 1.2 L Lymph # (Auto) 0.6 L [place] # (Auto) 0.9 Eos # (Auto) 0.1 Baso # (Auto) 0.0 WBC Differential Manual diff final Seg Neuts % (Manual) 22 Band Neuts % (Manual) 7 H Lymphocytes % (Manual) 29 Monocytes % (Manual) 30 H Eosinophils % (Manual) 4 Metamyelocytes % (Man) 1 Myelocytes % (Man) 7 H Abs Neuts (Manual) 1.0 L Differential Comment . Platelet Estimate Low L Platelet Morphology Normal Assessment and Plan - Assessment (1) Pneumonia Code(s): J18.9 - Pneumonia, unspecified organism Status: Acute (2) GERD (gastroesophageal reflux disease) Code(s): K21.9 - Gastro-esophageal reflux disease without esophagitis Status: Chronic (3) DVT (deep venous thrombosis) Code(s): I82.409 - Acute embolism and thrombosis of unspecified deep veins of unspecified lower extremity Status: Acute (4) Hypothyroidism Code(s): E03.9 - Hypothyroidism, unspecified Status: Chronic (5) Laryngeal squamous cell carcinoma Code(s): C32.9 - Malignant neoplasm of larynx, unspecified Status: Chronic (6) Protein-calorie malnutrition, severe Code(s): E43 - Unspecified severe protein-calorie malnutrition Status: Chronic - Plan This is a 73-year-old female with 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 The rapid response was called and the patient was transferred to ICU where she was placed on 60% oxygenation via trach collar. CCM reconsulted 05/23 due to hypotension. Currently managed for recurrent respiratory infections with MDRO managed by ID. CT chest does demonstrate a moderate left pleural effusion with left lower lobe atelectasis s/p thoracocentesis. Patient was again sent over to the ICU on 05/29 for acute pulmonary edema with further fever spikes. Patient underwent diuresis and was made a no code, was eventually stabilized and transition back to hospitalist care. MDRO PSAE persistent colonisation New PNA, MDRO PSAE, Steno malt History of squamous cell carcinoma of the larynx now status post tracheostomy due to recurrent aspiration Spiculated right upper lobe pulmonary nodule, multiple R pulmonary nodules - ID following, Dr. Canchola, appreciate assistance with mgmt, Bld Cx from NG x5 days, Urine Cx from 05/29, NG@48hrs (final), Sputum Cx on 05/29+ Pseudomonas MDR, sensitive to only tobramycin. Currently on Meropenem, and levaquin. Pulmonary following. - UTI, MDRO PDSAE: resolvd with tx with Avycaz Multiple pulmonary nodules- Pulmonary also following. Dr. Pineda has discussed risk/ benefits of biopsy with patient and her son on 05/05 and at that time they opted to defer biopsy. Per recent palliative care note there has been discussion of possibly pursuing biopsy. Moderate pleural effusion s/p thora on 05/23, Cultures neg Acute kidney injury-creatinine stable, GFR stable. Depression/anxiety -Continue Lexapro and Wellbutrin, Continue Klonopin through the G-tube every 8 hours, Temazepam as needed for insomnia Gastroesophageal reflux disease -Continue PPI and lactobacillus through the G-tube daily. Diarrhea -Likely secondary to antibiotics, improving. C. difficile studies were negative on 05/25, Continue Lomotil. Chronic DVT of the right lower extremity -Holding Lovenox due to thrombocytopenia. Per heme oncology resume Lovenox if platelets are consistently above 75,000. Hemoglobin is 7.5 ---> 7.0, platelet is 70 --->66. Continue to hold Lovenox for now. Repeat CBC in am and consider transfusion if <7.0 based on Heme/Onc recs. Currently asymptomatic. R 1st digit of foot with increased erythema s/p trimming of ingrow toenail Podiatry reccs from 06/01: Recommend triple antibiotic with Band-Aid to right hallux medial border DVT PPX: Holding Lovenox due to thrombocytopenia per HemeOnc, SCD's (4) Hypothyroidism Qualifiers: Hypothyroidism type: unspecified Qualified Code(s): E03.9 - Hypothyroidism, unspecified
--- NOTE | 2018-06-12 17:28 | P.PN ---
Subjective Interval history: Alert and Breathing well .On O2 at 28 % with trach collar. PM valve is ON. Physical Exam Vital signs: Vital Signs 06/11/18 17:50 06/11/18 20:00 06/12/18 00:00 Temperature 98.4 F 98.2 F Pulse Rate 66 68 Respiratory Rate 18 20 Blood Pressure 96/48 L 98/52 L Pulse Oximetry 98 95 96 06/12/18 04:00 06/12/18 05:12 06/12/18 08:00 Temperature 98.6 F 99.3 F Pulse Rate 68 70 Respiratory Rate 20 22 Blood Pressure 113/47 L 110/58 L Pulse Oximetry 98 94 L 100 06/12/18 09:00 06/12/18 12:00 Temperature 98.6 F Pulse Rate 114 H Respiratory Rate 22 Blood Pressure 95/48 L Pulse Oximetry 97 98 Intake & Output 06/11/18 06/12/18 06/12/18 18:59 06:59 18:59 Intake Total 1000 / 1000 400 / 400 250 / 250 Output Total 1200 / 1200 1200 / 1200 Balance -200 / -200 -800 / -800 250 / 250 Weight 55.6 kg Intake: IV 250 / 250 400 / 400 250 / 250 Levaquin 750 mg Premix Inj 150 150 / 150 ML @ 100 mls/hr IV.SIG Q48H [facility] Rx#:[id number] Vabomere Inj 2,000 MG In NS Inj 250 / 250 250 / 250 250 / 250 250 ML @ 83.333 mls/hr IV.SIG Q8H [facility] Rx#:[id number] Tube Feeding 550 / 550 Water Bolus Amount 200 / 200 Output: Urine Amount (Catheter) 750 / 750 900 / 900 Indwelling Urethral Catheter 750 / 750 900 / 900 Gastric Drainage 450 / 450 300 / 300 Gastrojejunostomy Tube 450 / 450 300 / 300 Other: Date of Last Bowel Movement 06/11/18 06/12/18 06/12/18 # Bowel Movements 1 4 Narrative: GENERAL: Thin, well-developed adult female in no obvious distress. SKIN: Warm and dry. HEAD: Atraumatic. Normocephalic. CARDIOVASCULAR: Regular rate and rhythm. No murmur. RESPIRATORY: No accessory muscle use. Clear to auscultation. Breath sounds equal bilaterally. Trach in place. GASTROINTESTINAL: Abdomen soft, non-tender, non-distended. Positive bowel sounds. MUSCULOSKELETAL: Extremities without clubbing, cyanosis, or edema. No obvious deformities. NEUROLOGICAL: Awake and alert. No obvious cranial nerve deficits. Motor grossly within normal limits. - Urinary Catheter Management Indwelling Urethral Catheter Cath placed during this visit: yes Reason for continuing: Chronic Urinary Retention Insertion date: 05/25/18 Insertion time: 14:00 Results - Labs CBC & Chem 7: 06/12/18 08:18 06/10/18 10:18 Laboratory Results - last 24 hr 06/12/18 08:18 WBC 2.8 L RBC 2.30 L Hgb 7.0 L Hct 20.4 L* MCV 88.5 MCH 30.5 MCHC 34.5 RDW 13.5 Plt Count 66 L MPV 10.6 Prelim Diff (Auto) Slide review pending Neut % (Auto) 42.3 Lymph % (Auto) 22.6 [place] % (Auto) 31.8 H Eos % (Auto) 2.7 Baso % (Auto) 0.6 Neut # (Auto) 1.2 L Lymph # (Auto) 0.6 L [place] # (Auto) 0.9 Eos # (Auto) 0.1 Baso # (Auto) 0.0 WBC Differential Manual diff final Seg Neuts % (Manual) 22 Band Neuts % (Manual) 7 H Lymphocytes % (Manual) 29 Monocytes % (Manual) 30 H Eosinophils % (Manual) 4 Metamyelocytes % (Man) 1 Myelocytes % (Man) 7 H Abs Neuts (Manual) 1.0 L Differential Comment . Platelet Estimate Low L Platelet Morphology Normal Assessment and Plan - Assessment (1) Respiratory failure Code(s): J96.90 - Respiratory failure, unspecified, unspecified whether with hypoxia or hypercapnia Status: Acute (2) Pneumonia Code(s): J18.9 - Pneumonia, unspecified organism Status: Acute (3) Status post trachelectomy Code(s): Z90.710 - Acquired absence of both cervix and uterus Status: Acute (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 Cont T collar at 28 % FIO2 . 2. Cont nebs with albuterol qid. PRN 3. PM valve daytime 12 hrs. 4. Cont Levsin .125 mg qid prn. 5. Tube feeds at 60 CC. 6. PT evaluation. 7. Antibiotics per ID 8. Continue Lovenox 60 mg daily
[2018-06-12] MEDS: Morphine Sulfate Oral Liq 10 MG/0.5 ML Syringe SL PRN (18:08)
[2018-06-13] MEDS: SODIUM CHLOR 0.9% IV.SIG SCH ×3 (03:30→20:13)
[2018-06-13] MEDS: MEROPENEM VABORBACTAM IV.SIG SCH ×3 (03:30→20:13)
[2018-06-13] MEDS: Hyoscyamine Liq Drops 0.125 MG/ML 15 ML Bottle SL SCH ×4 (03:30→21:54)
[2018-06-13] MEDS: Levothyroxine 150 MCG Tablet J-TUBE SCH (05:06)
[2018-06-13 07:49] LABS: Baso % (Auto) 1.1 % (0.0-2.0); Eos # (Auto) 0.1 th/mm3 (0.0-0.4); Eos % (Auto) 3.1 % (0.0-4.0); Lymph # (Auto) 0.8 th/mm3 (1.0-4.8); Mean Corpuscular HGB Conc 33.6 % (32.0-36.0); Mean Corpuscular Hemoglobin 29.6 pg (27.0-34.0); Mean Platelet Volume 11.1 fL (7.0-11.0); Mono # (Auto) 1.1 th/mm3 (0.0-0.9); Mono % (Auto) 38.3 % (0.0-8.0); Neut # (Auto) 0.9 th/mm3 (1.8-7.7); Neut % (Auto) 29.5 % (16.0-70.0); Platelet Count 68 th/mm3 (150-450); Red Blood Count 2.33 mil/mm3 (4.00-5.30); Red Cell Distribution Width 13.7 % (11.6-17.2); White Blood Count 2.9 th/mm3 (4.0-11.0)
[2018-06-13 08:39] LABS: Hematocrit 20.5 % (35.0-46.0); Hemoglobin 6.9 gm/dL (11.6-15.3)
[2018-06-13 09:03] LABS: Blast Cells 4 % (0-0); Eosinophils 3 % (0-4); Lymphocytes 45 % (9-44); Metamyelocytes 1 % (0-1); Monocytes 12 % (0-8); Myelocytes 2 % (0-0); Promyelocyte 3 % (0-0)
[2018-06-13 09:05] LABS: Platelet Morphology Normal (Normal)
[2018-06-13] MEDS: buPROPion 75 MG Tablet J-TUBE SCH ×2 (09:56→20:13)
[2018-06-13] MEDS: Loperamide Liq 2 MG/10 ML UDC J-TUBE SCH ×4 (09:56→20:12)
[2018-06-13] MEDS: Ascorbic Acid 500 MG Tablet J-TUBE SCH ×2 (09:56→20:12)
[2018-06-13] MEDS: Lactobacillus Acidophilus/L. Spores Tablet J-TUBE SCH ×3 (09:56→18:09)
[2018-06-13] MEDS: Heparin Central Flush 100 UNIT/ML 5 ML Vial IV.FLUSH SCH (09:57)
[2018-06-13] MEDS: Nystatin/Diphenhydramine/Lidocaine Mouthwash (Adult) 120 ML Botttle SWISH-SWAL SCH ×4 (09:58→20:12)
--- NOTE | 2018-06-13 10:46 | P.PN ---
Subjective Interval history: Patient is seen sitting up on side of bed. She does tell me that she feels weak today. No chest pain or shortness of breath. No nausea or vomiting. Diarrhea has improved per nursing. No obvious signs of bleeding. Physical Exam Vital signs: Vital Signs 06/12/18 12:00 06/12/18 16:00 06/12/18 20:00 Temperature 98.6 F 98.0 F 96.3 F L Pulse Rate 114 H 88 93 H Respiratory Rate 22 16 20 Blood Pressure 95/48 L 112/58 L 99/44 L Pulse Oximetry 98 98 98 06/12/18 20:25 06/13/18 00:00 06/13/18 04:00 Temperature 98 F 98.6 F Pulse Rate 73 66 Respiratory Rate 20 20 Blood Pressure 89/41 L 86/46 L Pulse Oximetry 99 96 99 06/13/18 08:00 06/13/18 10:11 Temperature 98.6 F Pulse Rate 65 Respiratory Rate 16 Blood Pressure 88/46 L Pulse Oximetry 98 97 Intake & Output 06/12/18 06/13/18 06/13/18 18:59 06:59 18:59 Intake Total 1860 / 1860 1800 / 1800 Output Total 2000 / 1999 1100 / 1100 Balance -140 / -140 700 / 700 Weight 55.6 kg 56.3 kg Intake: IV 500 / 500 250 / 250 Vabomere Inj 2,000 MG In NS Inj 500 / 500 250 / 250 250 ML @ 83.333 mls/hr IV.SIG Q8H [facility] Rx#:[id number] Oral 200 / 200 200 / 200 Tube Feeding 660 / 660 600 / 600 Water Bolus Amount 500 / 500 750 / 750 Other 0 / 0 Output: Stool 0 / 0 Urine/Stool Mix 0 / 0 Emesis 0 / 0 0 / 0 Urine Amount (Catheter) 1300 / 1300 800 / 800 Indwelling Urethral Catheter 1300 / 1300 800 / 800 Gastric Drainage 700 / 700 300 / 300 Gastrojejunostomy Tube 300 / 300 300 / 300 Jejunostomy Tube 400 / 400 Other: # Voids 0 # Incontinent Voids 0 # Urine Diapers 0 Date of Last Bowel Movement 06/12/18 06/12/18 06/12/18 # Bowel Movements 2 # Incontinent Bowel Movements 0 1 Narrative: GENERAL: Thin, well-developed adult female in no obvious distress. SKIN: Warm and dry. Pale HEAD: Atraumatic. Normocephalic. CARDIOVASCULAR: Regular rate and rhythm. No murmur. RESPIRATORY: No accessory muscle use. Clear to auscultation. Breath sounds equal bilaterally. Trach in place. GASTROINTESTINAL: Abdomen soft, non-tender, non-distended. Positive bowel sounds. MUSCULOSKELETAL: Extremities without clubbing, cyanosis, or edema. No obvious deformities. NEUROLOGICAL: Awake and alert. No obvious cranial nerve deficits. Motor grossly within normal limits. - Urinary Catheter Management Indwelling Urethral Catheter Cath placed during this visit: yes Reason for continuing: Chronic Urinary Retention Insertion date: 05/25/18 Insertion time: 14:00 Results - Labs CBC & Chem 7: 06/13/18 07:10 06/10/18 10:18 Laboratory Results - last 24 hr 06/12/18 06/13/18 08:18 07:10 WBC 2.9 L RBC 2.33 L Hgb 6.9 L* Hct 20.5 L* MCV 88.0 MCH 29.6 MCHC 33.6 RDW 13.7 Plt Count 68 L MPV 11.1 H Prelim Diff (Auto) Slide review pending Neut % (Auto) 29.5 Lymph % (Auto) 28.0 [place] % (Auto) 38.3 H Eos % (Auto) 3.1 Baso % (Auto) 1.1 Neut # (Auto) 0.9 L Lymph # (Auto) 0.8 L [place] # (Auto) 1.1 H Eos # (Auto) 0.1 Baso # (Auto) 0.0 WBC Differential Manual diff final Manual diff final Seg Neuts % (Manual) 22 21 Band Neuts % (Manual) 7 H 8 H Lymphocytes % (Manual) 29 45 H Monocytes % (Manual) 30 H 12 H Eosinophils % (Manual) 4 3 Basophils % (Manual) 1 Metamyelocytes % (Man) 1 1 Myelocytes % (Man) 7 H 2 H Promyelocytes % (Man) 3 H Blast Cells % (Manual) 4 H Abs Neuts (Manual) 1.0 L 1.0 L Differential Comment . Platelet Estimate Low L Low L Platelet Morphology Normal Normal Assessment and Plan - Assessment (1) Pneumonia Code(s): J18.9 - Pneumonia, unspecified organism Status: Acute (2) GERD (gastroesophageal reflux disease) Code(s): K21.9 - Gastro-esophageal reflux disease without esophagitis Status: Chronic (3) DVT (deep venous thrombosis) Code(s): I82.409 - Acute embolism and thrombosis of unspecified deep veins of unspecified lower extremity Status: Acute (4) Hypothyroidism Code(s): E03.9 - Hypothyroidism, unspecified Status: Chronic (5) Laryngeal squamous cell carcinoma Code(s): C32.9 - Malignant neoplasm of larynx, unspecified Status: Chronic (6) Protein-calorie malnutrition, severe Code(s): E43 - Unspecified severe protein-calorie malnutrition Status: Chronic - Plan This is a 73-year-old female with 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 The rapid response was called and the patient was transferred to ICU where she was placed on 60% oxygenation via trach collar. CCM reconsulted 05/23 due to hypotension. Currently managed for recurrent respiratory infections with MDRO managed by ID. CT chest does demonstrate a moderate left pleural effusion with left lower lobe atelectasis s/p thoracocentesis. Patient was again sent over to the ICU on 05/29 for acute pulmonary edema with further fever spikes. Patient underwent diuresis and was made a no code, was eventually stabilized and transition back to hospitalist care. Acute: Pancytopenia d/t myelodysplastic syndrome Per Heme/Onc: pancytopenia is due to MDS. She is not a candidate for chemo. Recommendation for pancytopenia is transfusion of PRBC (if Hg <7) and plat(if plat <15) support. Hx of DVT - anticoagulation recommended with platelet count consistently greater than 75,000; otherwise hold. -hemoglobin is 7.0, platelets 68. Continue to hold Lovenox for now. Will transfuse 1 unit PRBC today 06/13. Repeat CBC in am Acute kidney injury with CKD -CR increasing -well gently hydrate with 500 mL's NS after blood transfusion . Monitor closely for fluid overload. -avoid nephrotoxins Electrolyte imbalance -Intermittent hypokalemia; monitor MDRO PSAE persistent colonisation New PNA, MDRO PSAE, Steno malt History of squamous cell carcinoma of the larynx now status post tracheostomy due to recurrent aspiration Spiculated right upper lobe pulmonary nodule, multiple R pulmonary nodules - ID following, Dr. 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 Currently on Meropenem, and levaquin. - UTI, MDRO PDSAE: resolvd with tx with Avycaz Chronic or resolved: Multiple pulmonary nodules- -Pulmonary also following. -Dr. Pineda has discussed risk/ benefits of biopsy with patient and her son on 05/05 and at that time they opted to defer biopsy. -Moderate pleural effusion s/p thora on 05/23, Cultures neg Depression/anxiety -Continue Lexapro and Wellbutrin, Continue Klonopin through the G-tube every 8 hours, Temazepam as needed for insomnia Gastroesophageal reflux disease -Continue PPI and lactobacillus through the G-tube daily. Diarrhea -Likely secondary to antibiotics, improving. C. difficile studies were negative on 05/25, Continue Lomotil. Chronic DVT of the right lower extremity -Holding Lovenox due to thrombocytopenia. Per heme oncology resume Lovenox if platelets are consistently above 75,000. R 1st digit of foot with increased erythema s/p trimming of ingrow toenail Podiatry reccs from 06/01: Recommend triple antibiotic with Band-Aid to right hallux medial border DVT PPX: Holding Lovenox due to thrombocytopenia per HemeOnc, SCD's (4) Hypothyroidism Qualifiers: Hypothyroidism type: unspecified Qualified Code(s): E03.9 - Hypothyroidism, unspecified
[2018-06-13] MEDS ORDERED: Sodium Chlor 0.9% Inj 250 ML IV.SIG SCH (11:00)
[2018-06-13 11:40] LABS: Calcium 8.1 mg/dL (8.5-10.1); Carbon Dioxide 28.5 meq/L (21.0-32.0); Magnesium 1.8 mg/dL (1.5-2.5)
--- NOTE | 2018-06-13 12:31 | P.PN ---
Subjective Interval history: was anemic, with Hgb <7.0 Awake and stable . BP was low . Physical Exam Vital signs: Vital Signs 06/12/18 16:00 06/12/18 20:00 06/12/18 20:25 Temperature 98.0 F 96.3 F L Pulse Rate 88 93 H Respiratory Rate 16 20 Blood Pressure 112/58 L 99/44 L Pulse Oximetry 98 98 99 06/13/18 00:00 06/13/18 04:00 06/13/18 08:00 Temperature 98 F 98.6 F 98.6 F Pulse Rate 73 66 65 Respiratory Rate 20 20 16 Blood Pressure 89/41 L 86/46 L 88/46 L Pulse Oximetry 96 99 98 06/13/18 10:11 Temperature Pulse Rate Respiratory Rate Blood Pressure Pulse Oximetry 97 Intake & Output 06/12/18 06/13/18 06/13/18 18:59 06:59 18:59 Intake Total 1860 / 1860 1800 / 1800 250 / 250 Output Total 1999 / 1999 1100 / 1100 Balance -140 / -140 700 / 700 250 / 250 Weight 55.6 kg 56.3 kg Intake: IV 500 / 500 250 / 250 250 / 250 Vabomere Inj 2,000 MG In NS Inj 500 / 500 250 / 250 250 / 250 250 ML @ 83.333 mls/hr IV.SIG Q8H [facility] Rx#:[id number] Oral 200 / 200 200 / 200 Tube Feeding 660 / 660 600 / 600 Water Bolus Amount 500 / 500 750 / 750 Other 0 / 0 Output: Stool 0 / 0 Urine/Stool Mix 0 / 0 Emesis 0 / 0 0 / 0 Urine Amount (Catheter) 1300 / 1300 800 / 800 Indwelling Urethral Catheter 1300 / 1300 800 / 800 Gastric Drainage 700 / 700 300 / 300 Gastrojejunostomy Tube 300 / 300 300 / 300 Jejunostomy Tube 400 / 400 Other: # Voids 0 # Incontinent Voids 0 # Urine Diapers 0 Date of Last Bowel Movement 06/12/18 06/12/18 06/12/18 # Bowel Movements 2 # Incontinent Bowel Movements 0 1 Narrative: GENERAL: Thin, pale adult female in no obvious distress. SKIN: Warm and dry. Pale. HEAD: Atraumatic. Normocephalic. CARDIOVASCULAR: Regular rate and rhythm. No murmur. RESPIRATORY: No accessory muscle use. Occ wheeze and Breath sounds equal bilaterally. Trach in place. GASTROINTESTINAL: Abdomen soft, non-tender, non-distended. Positive bowel sounds. MUSCULOSKELETAL: Extremities without clubbing, cyanosis, or edema. No obvious deformities. NEUROLOGICAL: Awake and alert. Motor grossly within normal limits. - Urinary Catheter Management Indwelling Urethral Catheter Cath placed during this visit: yes Reason for continuing: Chronic Urinary Retention Insertion date: 05/25/18 Insertion time: 14:00 Results - Labs CBC & Chem 7: 06/13/18 07:10 06/13/18 10:44 Laboratory Results - last 24 hr 06/13/18 06/13/18 06/13/18 07:10 10:44 10:44 WBC 2.9 L RBC 2.33 L Hgb 6.9 L* Hct 20.5 L* MCV 88.0 MCH 29.6 MCHC 33.6 RDW 13.7 Plt Count 68 L MPV 11.1 H Prelim Diff (Auto) Slide review pending Neut % (Auto) 29.5 Lymph % (Auto) 28.0 [place] % (Auto) 38.3 H Eos % (Auto) 3.1 Baso % (Auto) 1.1 Neut # (Auto) 0.9 L Lymph # (Auto) 0.8 L [place] # (Auto) 1.1 H Eos # (Auto) 0.1 Baso # (Auto) 0.0 WBC Differential Manual diff final Seg Neuts % (Manual) 21 Band Neuts % (Manual) 8 H Lymphocytes % (Manual) 45 H Monocytes % (Manual) 12 H Eosinophils % (Manual) 3 Basophils % (Manual) 1 Metamyelocytes % (Man) 1 Myelocytes % (Man) 2 H Promyelocytes % (Man) 3 H Blast Cells % (Manual) 4 H Abs Neuts (Manual) 1.0 L Differential Comment . Platelet Estimate Low L Platelet Morphology Normal Sodium 136 Potassium 5.0 Chloride 100 Carbon Dioxide 28.5 Anion Gap 8 BUN 44 H Creatinine 1.20 H Estimated GFR 44 L Random Glucose 95 Calcium 8.1 L Magnesium 1.8 Blood Type B Positive Antibody Screen Negative MTS Gel Crossmatch See Detail Assessment and Plan - Assessment (1) Respiratory failure Code(s): J96.90 - Respiratory failure, unspecified, unspecified whether with hypoxia or hypercapnia Status: Acute (2) Pneumonia Code(s): J18.9 - Pneumonia, unspecified organism Status: Acute (3) Status post trachelectomy Code(s): Z90.710 - Acquired absence of both cervix and uterus Status: Acute (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 Cont T collar at 28 % FIO2 . 2. Cont nebs with albuterol qid. PRN 3. PM valve daytime 12 hrs. 4. Cont Levsin .125 mg qid prn. 5. Tube feeds at 60 CC. 6. Transfuse 1 Unit packed red cells 7.CBC,BMP in am 8. 500 CC Saline bolus.
[2018-06-13] MEDS ORDERED: Sodium Chlor 0.9% Inj 500 ML IV.CONT SCH (16:00)
[2018-06-14] MEDS: MEROPENEM VABORBACTAM IV.SIG SCH ×3 (03:16→21:20)
[2018-06-14] MEDS: SODIUM CHLOR 0.9% IV.SIG SCH ×3 (03:16→21:20)
[2018-06-14] MEDS: Hyoscyamine Liq Drops 0.125 MG/ML 15 ML Bottle SL SCH ×3 (03:18→21:24)
[2018-06-14] MEDS: Levothyroxine 150 MCG Tablet J-TUBE SCH (05:03)
[2018-06-14 07:21] LABS: Hematocrit 23.3 % (35.0-46.0); Hemoglobin 7.9 gm/dL (11.6-15.3); Mean Corpuscular HGB Conc 33.9 % (32.0-36.0); Mean Corpuscular Volume 88.4 fL (80.0-100.0); Mean Platelet Volume 10.7 fL (7.0-11.0); Platelet Count 71 th/mm3 (150-450); Red Blood Count 2.63 mil/mm3 (4.00-5.30); Red Cell Distribution Width 13.9 % (11.6-17.2); White Blood Count 3.2 th/mm3 (4.0-11.0)
[2018-06-14 07:36] LABS: Calcium 7.5 mg/dL (8.5-10.1); Carbon Dioxide 29.1 meq/L (21.0-32.0)
[2018-06-14 08:43] LABS: Blast Cells 4 % (0-0); Eosinophils 5 % (0-4); Hypersegmented Neutrophils 1+; Lymphocytes 22 % (9-44); Metamyelocytes 1 % (0-1); Monocytes 16 % (0-8); Myelocytes 2 % (0-0); Promyelocyte 2 % (0-0)
[2018-06-14 08:44] LABS: Ovalocytes 1+; Toxic Granulation 1+; Toxic Vacuolation Present
[2018-06-14] MEDS: Heparin Central Flush 100 UNIT/ML 5 ML Vial IV.FLUSH SCH (09:12)
[2018-06-14] MEDS: Nystatin/Diphenhydramine/Lidocaine Mouthwash (Adult) 120 ML Botttle SWISH-SWAL SCH ×3 (09:12→21:25)
[2018-06-14] MEDS: Loperamide Liq 2 MG/10 ML UDC J-TUBE SCH ×3 (09:12→23:11)
[2018-06-14] MEDS: Ascorbic Acid 500 MG Tablet J-TUBE SCH ×2 (09:13→21:25)
[2018-06-14] MEDS: buPROPion 75 MG Tablet J-TUBE SCH ×2 (09:13→21:25)
[2018-06-14] MEDS: Lactobacillus Acidophilus/L. Spores Tablet J-TUBE SCH ×2 (11:44→14:42)
--- NOTE | 2018-06-14 11:53 | P.PN ---
Subjective Interval history: Patient is seen lying in bed. Feels somewhat stronger today. Nursing reports no adverse events. Physical Exam Vital signs: Vital Signs 06/13/18 12:00 06/13/18 12:47 06/13/18 13:11 Temperature 98.8 F 98.8 F 98.0 F Pulse Rate 69 69 70 Respiratory Rate 16 16 16 Blood Pressure 100/42 L 100/42 L 88/41 L Pulse Oximetry 97 97 100 06/13/18 16:00 06/13/18 20:00 06/14/18 00:00 Temperature 98.8 F 98.4 F 98.6 F Pulse Rate 60 66 74 Respiratory Rate 16 20 20 Blood Pressure 90/48 L 97/45 L 106/52 L Pulse Oximetry 98 96 97 06/14/18 00:50 06/14/18 04:00 06/14/18 07:12 Temperature 96.8 F L 98 F Pulse Rate 71 72 Respiratory Rate 20 18 Blood Pressure 95/46 L 98/58 L Pulse Oximetry 97 95 95 06/14/18 11:30 Temperature Pulse Rate Respiratory Rate Blood Pressure Pulse Oximetry 97 Intake & Output 06/13/18 06/14/18 06/14/18 18:59 06:59 18:59 Intake Total 1950 / 1950 1850 / 1850 Output Total 1300 / 1300 1100 / 1100 Balance 650 / 650 750 / 750 Weight 56.7 kg Intake: IV 250 / 250 650 / 650 Levaquin 750 mg Premix Inj 150 150 / 150 ML @ 100 mls/hr IV.SIG Q48H [facility] Rx#:[id number] Vabomere Inj 2,000 MG In NS Inj 250 / 250 500 / 500 250 ML @ 83.333 mls/hr IV.SIG Q8H [facility] Rx#:[id number] Oral 100 / 100 100 / 100 Tube Feeding 600 / 600 600 / 600 Tube Irrigant 100 / 100 Water Bolus Amount 500 / 500 500 / 500 Other 0 / 0 Intake (Blood Product) Amt 400 / 400 Rbc As-3 Leukoreduced Unit 400 / 400 [id number] Output: Urine 0 / 0 Stool 0 / 0 0 / 0 Urine/Stool Mix 0 / 0 0 / 0 Emesis 0 / 0 0 / 0 Urine Amount (Catheter) 700 / 700 800 / 800 Indwelling Urethral Catheter 700 / 700 800 / 800 Gastric Drainage 600 / 600 300 / 300 Gastrojejunostomy Tube 300 / 300 Jejunostomy Tube 600 / 600 Other: # Voids 0 # Incontinent Voids 0 # Urine Diapers 0 Date of Last Bowel Movement 06/12/18 06/14/18 # Bowel Movements 2 # Incontinent Bowel Movements 1 Narrative: GENERAL: Thin, well developed adult female in no obvious distress. SKIN: Warm and dry. Pale. HEAD: Atraumatic. Normocephalic. CARDIOVASCULAR: Regular rate and rhythm. No murmur. RESPIRATORY: No accessory muscle use. Occ wheeze and Breath sounds equal bilaterally. Trach in place. GASTROINTESTINAL: Abdomen soft, non-tender, non-distended. Positive bowel sounds. MUSCULOSKELETAL: Extremities without clubbing, cyanosis, or edema. No obvious deformities. NEUROLOGICAL: Awake and alert. Motor grossly within normal limits. - Urinary Catheter Management Indwelling Urethral Catheter Cath placed during this visit: yes Reason for continuing: Acute urinary retention Insertion date: 05/25/18 Insertion time: 14:00 Results - Labs CBC & Chem 7: 06/14/18 06:25 06/14/18 06:25 Laboratory Results - last 24 hr 05/25/18 06/13/18 06/14/18 09:55 10:44 06:25 WBC RBC Hgb Hct MCV MCH MCHC RDW Plt Count MPV Prelim Diff (Auto) WBC Differential Seg Neuts % (Manual) Band Neuts % (Manual) Lymphocytes % (Manual) Monocytes % (Manual) Eosinophils % (Manual) Basophils % (Manual) Metamyelocytes % (Man) Myelocytes % (Man) Promyelocytes % (Man) Blast Cells % (Manual) Abs Neuts (Manual) Differential Comment Hypersegmented Neuts Toxic Granulation Toxic Vacuolation Platelet Estimate Platelet Morphology Ovalocytes Sodium 137 Potassium 5.0 Chloride 102 Carbon Dioxide 29.1 Anion Gap 6 BUN 43 H Creatinine 1.18 H Estimated GFR 45 L Random Glucose 100 Calcium 7.5 L Blood Type B Positive Antibody Screen Negative MTS Gel Crossmatch See Detail See Detail 06/14/18 06:25 WBC 3.2 L RBC 2.63 L Hgb 7.9 L Hct 23.3 L MCV 88.4 MCH 30.0 MCHC 33.9 RDW 13.9 Plt Count 71 L MPV 10.7 Prelim Diff (Auto) Manual diff required WBC Differential Manual diff final Seg Neuts % (Manual) 40 Band Neuts % (Manual) 7 H Lymphocytes % (Manual) 22 Monocytes % (Manual) 16 H Eosinophils % (Manual) 5 H Basophils % (Manual) 1 Metamyelocytes % (Man) 1 Myelocytes % (Man) 2 H Promyelocytes % (Man) 2 H Blast Cells % (Manual) 4 H Abs Neuts (Manual) 1.7 L Differential Comment . Hypersegmented Neuts 1+ H Toxic Granulation 1+ H Toxic Vacuolation Present H Platelet Estimate Low L Platelet Morphology Enlarged H Ovalocytes 1+ H Sodium Potassium Chloride Carbon Dioxide Anion Gap BUN Creatinine Estimated GFR Random Glucose Calcium Blood Type Antibody Screen MTS Gel Crossmatch Assessment and Plan - Assessment (1) Pneumonia Code(s): J18.9 - Pneumonia, unspecified organism Status: Acute (2) GERD (gastroesophageal reflux disease) Code(s): K21.9 - Gastro-esophageal reflux disease without esophagitis Status: Chronic (3) DVT (deep venous thrombosis) Code(s): I82.409 - Acute embolism and thrombosis of unspecified deep veins of unspecified lower extremity Status: Acute (4) Hypothyroidism Code(s): E03.9 - Hypothyroidism, unspecified Status: Chronic (5) Laryngeal squamous cell carcinoma Code(s): C32.9 - Malignant neoplasm of larynx, unspecified Status: Chronic (6) Protein-calorie malnutrition, severe Code(s): E43 - Unspecified severe protein-calorie malnutrition Status: Chronic - Plan This is a 73-year-old female with 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 The rapid response was called and the patient was transferred to ICU where she was placed on 60% oxygenation via trach collar. [facility] reconsulted 05/23 due to hypotension. Currently managed for recurrent respiratory infections with MDRO managed by ID. CT chest does demonstrate a moderate left pleural effusion with left lower lobe atelectasis s/p thoracocentesis. Patient was again sent over to the ICU on 05/29 for acute pulmonary edema with further fever spikes. Patient underwent diuresis and was made a no code, was eventually stabilized and transition back to hospitalist care. Acute: Pancytopenia d/t myelodysplastic syndrome Per Heme/Onc: pancytopenia is due to MDS. She is not a candidate for chemo. Recommendation for pancytopenia is transfusion of PRBC (if Hg <7) and plat(if plat <15) support. Hx of DVT - anticoagulation recommended with platelet count consistently greater than 75,000; otherwise hold. -Transfused 1 unit PRBC on 06/13. Repeat CBC --> Hbg 7.9. Monitor Acute kidney injury with CKD -500 mL's NS after blood transfusion 06/13; Cr improved. Monitor closely for fluid overload. -avoid nephrotoxins Electrolyte imbalance -Intermittent hypokalemia; monitor MDRO PSAE persistent colonisation New PNA, MDRO PSAE, Steno malt History of squamous cell carcinoma of the larynx now status post tracheostomy due to recurrent aspiration Spiculated right upper lobe pulmonary nodule, multiple R pulmonary nodules - ID following, Dr. 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 Currently on Meropenem, and levaquin. - UTI, MDRO PDSAE: resolvd with tx with Avycaz Chronic or resolved: Multiple pulmonary nodules- -Pulmonary also following. -Dr. Pineda has discussed risk/ benefits of biopsy with patient and her son on 05/05 and at that time they opted to defer biopsy. -Moderate pleural effusion s/p thora on 05/23, Cultures neg Depression/anxiety -Continue Lexapro and Wellbutrin, Continue Klonopin through the G-tube every 8 hours, Temazepam as needed for insomnia Gastroesophageal reflux disease -Continue PPI and lactobacillus through the G-tube daily. Diarrhea -Likely secondary to antibiotics, improving. C. difficile studies were negative on 05/25, Continue Lomotil. Chronic DVT of the right lower extremity -Holding Lovenox due to thrombocytopenia. Per heme oncology resume Lovenox if platelets are consistently above 75,000. R 1st digit of foot with increased erythema s/p trimming of ingrow toenail Podiatry reccs from 06/01: Recommend triple antibiotic with Band-Aid to right hallux medial border DVT PPX: Holding Lovenox due to thrombocytopenia per HemeOnc, SCD's (4) Hypothyroidism Qualifiers: Hypothyroidism type: unspecified Qualified Code(s): E03.9 - Hypothyroidism, unspecified
[2018-06-15 06:15] LABS: Hematocrit 24.3 % (35.0-46.0); Hemoglobin 8.3 gm/dL (11.6-15.3); Mean Corpuscular Hemoglobin 29.9 pg (27.0-34.0); Mean Corpuscular Volume 87.7 fL (80.0-100.0); Mean Platelet Volume 10.3 fL (7.0-11.0); Platelet Count 76 th/mm3 (150-450); Red Blood Count 2.77 mil/mm3 (4.00-5.30); Red Cell Distribution Width 13.8 % (11.6-17.2); White Blood Count 3.5 th/mm3 (4.0-11.0)
[2018-06-15 06:40] LABS: Calcium 7.7 mg/dL (8.5-10.1); Carbon Dioxide 30.4 meq/L (21.0-32.0); Potassium 5.1 meq/L (3.5-5.1)
[2018-06-15] MEDS: Levothyroxine 150 MCG Tablet J-TUBE SCH (06:40)
[2018-06-15] MEDS: Hyoscyamine Liq Drops 0.125 MG/ML 15 ML Bottle SL SCH ×4 (06:41→21:06)
[2018-06-15] MEDS: MEROPENEM VABORBACTAM IV.SIG SCH ×3 (06:45→20:18)
[2018-06-15] MEDS: SODIUM CHLOR 0.9% IV.SIG SCH ×3 (06:45→20:18)
[2018-06-15 08:39] LABS: Blast Cells 9 % (0-0); Eosinophils 4 % (0-4); Lymphocytes 20 % (9-44); Monocytes 30 % (0-8); Myelocytes 5 % (0-0); Platelet Morphology Normal (Normal); Promyelocyte 1 % (0-0)
[2018-06-15 08:40] LABS: RBC Morphology Normal (Normal)
[2018-06-15] MEDS: Nystatin/Diphenhydramine/Lidocaine Mouthwash (Adult) 120 ML Botttle SWISH-SWAL SCH ×4 (08:55→20:18)
[2018-06-15] MEDS: Loperamide Liq 2 MG/10 ML UDC J-TUBE SCH ×3 (08:55→20:17)
[2018-06-15] MEDS: Lactobacillus Acidophilus/L. Spores Tablet J-TUBE SCH ×2 (08:55→12:24)
[2018-06-15] MEDS: Heparin Central Flush 100 UNIT/ML 5 ML Vial IV.FLUSH SCH (08:56)
[2018-06-15] MEDS: buPROPion 75 MG Tablet J-TUBE SCH ×2 (08:56→20:18)
[2018-06-15] MEDS: Ascorbic Acid 500 MG Tablet J-TUBE SCH ×2 (08:56→20:18)
--- NOTE | 2018-06-15 11:34 | P.PN ---
Subjective Interval history: Patient is seen lying quietly in bed. No new concerns or events. Nursing reports that she has been stable. Physical Exam Vital signs: Vital Signs 06/14/18 12:00 06/14/18 15:17 06/14/18 20:00 Temperature 99 F 98.8 F 98.4 F Pulse Rate 69 67 71 Respiratory Rate 18 18 16 Blood Pressure 90/60 L 93/64 L 96/41 L Pulse Oximetry 06/14/18 22:32 06/15/18 00:00 06/15/18 04:00 Temperature 98.2 F 98.4 F Pulse Rate 68 68 Respiratory Rate 16 16 Blood Pressure 102/46 L 97/51 L Pulse Oximetry 98 06/15/18 07:30 Temperature 98.4 F Pulse Rate 72 Respiratory Rate 16 Blood Pressure 92/52 L Pulse Oximetry Intake & Output 06/14/18 06/15/18 06/15/18 18:59 06:59 18:59 Intake Total 1500 / 1500 1670 / 1670 Output Total 1900 / 1900 1750 / 1750 Balance -400 / -400 -80 / -80 Weight 55.6 kg Intake: IV 250 / 250 250 / 250 Vabomere Inj 2,000 MG In NS Inj 250 / 250 250 / 250 250 ML @ 83.333 mls/hr IV.SIG Q8H [facility] Rx#:[id number] Oral 100 / 100 20 / 20 Tube Feeding 550 / 550 550 / 550 Tube Irrigant 100 / 100 100 / 100 Water Bolus Amount 500 / 500 500 / 500 Other 0 / 0 250 / 250 Output: Urine 0 / 0 Stool 0 / 0 0 / 0 Urine/Stool Mix 0 / 0 0 / 0 Emesis 0 / 0 Urine Amount (Catheter) 1000 / 1000 1450 / 1450 Indwelling Urethral Catheter 1000 / 1000 1450 / 1450 Gastric Drainage 900 / 900 300 / 300 Gastrojejunostomy Tube 300 / 300 300 / 300 Jejunostomy Tube 600 / 600 Other: Other Intake Source Saline Solution # Voids 0 # Incontinent Voids 0 # Urine Diapers 0 Date of Last Bowel Movement 06/14/18 # Bowel Movements 2 0 # Incontinent Bowel Movements 1 0 Narrative: GENERAL: Thin, well developed adult female in no obvious distress. SKIN: Warm and dry. Pale. HEAD: Atraumatic. Normocephalic. CARDIOVASCULAR: Regular rate and rhythm. No murmur. RESPIRATORY: No accessory muscle use. Occ wheeze and Breath sounds equal bilaterally. Trach in place. GASTROINTESTINAL: Abdomen soft, non-tender, non-distended. Positive bowel sounds. MUSCULOSKELETAL: Extremities without clubbing, cyanosis, or edema. No obvious deformities. NEUROLOGICAL: Awake and alert. Motor grossly within normal limits. - Urinary Catheter Management Indwelling Urethral Catheter Cath placed during this visit: yes Reason for continuing: Acute urinary retention Insertion date: 05/25/18 Insertion time: 14:00 Results - Labs CBC & Chem 7: 06/15/18 05:00 06/15/18 06:00 Laboratory Results - last 24 hr 06/15/18 06/15/18 05:00 06:00 WBC 3.5 L RBC 2.77 L Hgb 8.3 L Hct 24.3 L MCV 87.7 MCH 29.9 MCHC 34.0 RDW 13.8 Plt Count 76 L MPV 10.3 Prelim Diff (Auto) Manual diff required WBC Differential Manual diff final Seg Neuts % (Manual) 24 Band Neuts % (Manual) 6 Lymphocytes % (Manual) 20 Monocytes % (Manual) 30 H Eosinophils % (Manual) 4 Basophils % (Manual) 1 Myelocytes % (Man) 5 H Promyelocytes % (Man) 1 H Blast Cells % (Manual) 9 H Abs Neuts (Manual) 1.3 L Differential Comment . Platelet Estimate Low L Platelet Morphology Normal RBC Morphology Normal Sodium 136 Potassium 5.1 Chloride 99 Carbon Dioxide 30.4 Anion Gap 7 BUN 43 H Creatinine 1.19 H Estimated GFR 45 L Random Glucose 100 Calcium 7.7 L Assessment and Plan - Assessment (1) Pneumonia Code(s): J18.9 - Pneumonia, unspecified organism Status: Acute (2) GERD (gastroesophageal reflux disease) Code(s): K21.9 - Gastro-esophageal reflux disease without esophagitis Status: Chronic (3) DVT (deep venous thrombosis) Code(s): I82.409 - Acute embolism and thrombosis of unspecified deep veins of unspecified lower extremity Status: Acute (4) Hypothyroidism Code(s): E03.9 - Hypothyroidism, unspecified Status: Chronic (5) Laryngeal squamous cell carcinoma Code(s): C32.9 - Malignant neoplasm of larynx, unspecified Status: Chronic (6) Protein-calorie malnutrition, severe Code(s): E43 - Unspecified severe protein-calorie malnutrition Status: Chronic - Plan This is a 73-year-old female with 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 The rapid response was called and the patient was transferred to ICU where she was placed on 60% oxygenation via trach collar. [facility] reconsulted 05/23 due to hypotension. Currently managed for recurrent respiratory infections with MDRO managed by ID. CT chest does demonstrate a moderate left pleural effusion with left lower lobe atelectasis s/p thoracocentesis. Patient was again sent over to the ICU on 05/29 for acute pulmonary edema with further fever spikes. Patient underwent diuresis and was made a no code, was eventually stabilized and transition back to hospitalist care. Acute: Pancytopenia d/t myelodysplastic syndrome Per Heme/Onc: pancytopenia is due to MDS. She is not a candidate for chemo. Recommendation for pancytopenia is transfusion of PRBC (if Hg <7) and plat(if plat <15) support. Hx of DVT - anticoagulation recommended with platelet count consistently greater than 75,000; otherwise hold. -Transfused 1 unit PRBC on 06/13. Repeat CBC --> Hbg 7.9, now 8.3. Monitor Acute kidney injury with CKD -500 mL's NS after blood transfusion 06/13; Cr improved. Monitor closely for fluid overload. -avoid nephrotoxins Electrolyte imbalance -Intermittent hypokalemia; monitor MDRO PSAE persistent colonisation New PNA, MDRO PSAE, Steno malt History of squamous cell carcinoma of the larynx now status post tracheostomy due to recurrent aspiration Spiculated right upper lobe pulmonary nodule, multiple R pulmonary nodules - ID following, Dr. 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 Currently on Meropenem, and levaquin. - UTI, MDRO PDSAE: resolvd with tx with Avycaz Chronic or resolved: Multiple pulmonary nodules- -Pulmonary also following. -Dr. Pineda has discussed risk/ benefits of biopsy with patient and her son on 05/05 and at that time they opted to defer biopsy. -Moderate pleural effusion s/p thora on 05/23, Cultures neg Depression/anxiety -Continue Lexapro and Wellbutrin, Continue Klonopin through the G-tube every 8 hours, Temazepam as needed for insomnia Gastroesophageal reflux disease -Continue PPI and lactobacillus through the G-tube daily. Diarrhea -Likely secondary to antibiotics, improving. C. difficile studies were negative on 05/25, Continue Lomotil. Chronic DVT of the right lower extremity -Holding Lovenox due to thrombocytopenia. Per heme oncology resume Lovenox if platelets are consistently above 75,000. R 1st digit of foot with increased erythema s/p trimming of ingrow toenail Podiatry reccs from 06/01: Recommend triple antibiotic with Band-Aid to right hallux medial border DVT PPX: Holding Lovenox due to thrombocytopenia per HemeOnc, SCD's (4) Hypothyroidism Qualifiers: Hypothyroidism type: unspecified Qualified Code(s): E03.9 - Hypothyroidism, unspecified
[2018-06-15] MEDS ORDERED: Sodium Chlor 0.9% Inj 500 ML IV.SIG SCH (14:00)
[2018-06-16] MEDS: Morphine Sulfate Oral Liq 10 MG/0.5 ML Syringe SL PRN (00:47)
[2018-06-16] MEDS: Hyoscyamine Liq Drops 0.125 MG/ML 15 ML Bottle SL SCH ×4 (04:15→22:02)
[2018-06-16] MEDS: SODIUM CHLOR 0.9% IV.SIG SCH ×3 (04:15→20:00)
[2018-06-16] MEDS: MEROPENEM VABORBACTAM IV.SIG SCH ×3 (04:15→20:00)
[2018-06-16] MEDS: Levothyroxine 150 MCG Tablet J-TUBE SCH (06:04)
[2018-06-16 10:49] LABS: Calcium 7.9 mg/dL (8.5-10.1); Carbon Dioxide 30.7 meq/L (21.0-32.0); Potassium 5.1 meq/L (3.5-5.1)
[2018-06-16] MEDS: Lactobacillus Acidophilus/L. Spores Tablet J-TUBE SCH ×3 (10:50→18:00)
[2018-06-16] MEDS: Nystatin/Diphenhydramine/Lidocaine Mouthwash (Adult) 120 ML Botttle SWISH-SWAL SCH ×5 (10:50→22:01)
[2018-06-16] MEDS: Loperamide Liq 2 MG/10 ML UDC J-TUBE SCH ×4 (10:50→22:01)
[2018-06-16] MEDS: Heparin Central Flush 100 UNIT/ML 5 ML Vial IV.FLUSH SCH (10:50)
[2018-06-16] MEDS: Ascorbic Acid 500 MG Tablet J-TUBE SCH ×2 (10:51→22:01)
[2018-06-16] MEDS: buPROPion 75 MG Tablet J-TUBE SCH ×2 (10:51→22:01)
--- NOTE | 2018-06-16 15:05 | P.PN ---
Subjective Interval history: Patient is seen lying in bed. She is sleeping; wakes easily. Denies any new concerns. Nursing reports no adverse events. Physical Exam Vital signs: Vital Signs 06/15/18 15:38 06/15/18 18:22 06/15/18 20:00 Temperature 98.1 F 98.1 F Pulse Rate 68 71 Respiratory Rate 16 18 Blood Pressure 95/43 L 100/40 L Pulse Oximetry 98 96 06/16/18 00:00 06/16/18 04:00 06/16/18 08:00 Temperature 97.4 F L 98.4 F Pulse Rate 64 68 Respiratory Rate 18 18 16 Blood Pressure 104/52 L 98/56 L Pulse Oximetry 95 98 06/16/18 11:19 06/16/18 12:00 Temperature 97.8 F Pulse Rate 70 Respiratory Rate 16 Blood Pressure 100/41 L Pulse Oximetry 95 95 Intake & Output 06/15/18 06/16/18 06/16/18 18:59 06:59 18:59 Intake Total 2170 / 2170 1350 / 1350 250 / 250 Output Total 2049 / 2049 1050 / 1050 Balance 120 / 120 300 / 300 250 / 250 Weight 55.6 kg Intake: IV 500 / 500 400 / 400 250 / 250 Levaquin 750 mg Premix Inj 150 150 / 150 ML @ 100 mls/hr IV.SIG Q48H [facility] Rx#:[id number] Vabomere Inj 2,000 MG In NS Inj 500 / 500 250 / 250 250 / 250 250 ML @ 83.333 mls/hr IV.SIG Q8H [facility] Rx#:[id number] Oral 20 / 20 Tube Feeding 550 / 550 550 / 550 Tube Irrigant 100 / 100 Water Bolus Amount 500 / 500 400 / 400 Other 500 / 500 Output: Urine 0 / 0 Stool 0 / 0 Urine/Stool Mix 0 / 0 Emesis 0 / 0 Urine Amount (Catheter) 850 / 850 825 / 825 Indwelling Urethral Catheter 850 / 850 825 / 825 Gastric Drainage 1200 / 1200 225 / 225 Gastrojejunostomy Tube 1200 / 1200 225 / 225 Jejunostomy Tube 0 / 0 Other: Other Intake Source Saline Solution # Voids 0 # Incontinent Voids 0 # Urine Diapers 0 Date of Last Bowel Movement 06/14/18 06/12/18 # Bowel Movements 0 # Incontinent Bowel Movements 0 Narrative: GENERAL: Thin, well developed adult female in no obvious distress. SKIN: Warm and dry. Pale. HEAD: Atraumatic. Normocephalic. CARDIOVASCULAR: Regular rate and rhythm. No murmur. RESPIRATORY: No accessory muscle use. Occ wheeze and Breath sounds equal bilaterally. Trach in place. GASTROINTESTINAL: Abdomen soft, non-tender, non-distended. Positive bowel sounds. MUSCULOSKELETAL: Extremities without clubbing, cyanosis, or edema. No obvious deformities. NEUROLOGICAL: Awake and alert. Motor grossly within normal limits. - Urinary Catheter Management Indwelling Urethral Catheter Cath placed during this visit: yes Reason for continuing: Chronic Urinary Retention Insertion date: 05/25/18 Insertion time: 14:00 Results - Labs CBC & Chem 7: 06/15/18 05:00 06/16/18 09:33 Laboratory Results - last 24 hr 06/16/18 09:33 Sodium 138 Potassium 5.1 Chloride 101 Carbon Dioxide 30.7 Anion Gap 6 BUN 42 H Creatinine 1.17 H Estimated GFR 45 L Random Glucose 98 Calcium 7.9 L Assessment and Plan - Assessment (1) Pneumonia Code(s): J18.9 - Pneumonia, unspecified organism Status: Acute (2) GERD (gastroesophageal reflux disease) Code(s): K21.9 - Gastro-esophageal reflux disease without esophagitis Status: Chronic (3) DVT (deep venous thrombosis) Code(s): I82.409 - Acute embolism and thrombosis of unspecified deep veins of unspecified lower extremity Status: Acute (4) Hypothyroidism Code(s): E03.9 - Hypothyroidism, unspecified Status: Chronic (5) Laryngeal squamous cell carcinoma Code(s): C32.9 - Malignant neoplasm of larynx, unspecified Status: Chronic (6) Protein-calorie malnutrition, severe Code(s): E43 - Unspecified severe protein-calorie malnutrition Status: Chronic - Plan This is a 73-year-old female with 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 onset of hypoxemic respiratory failure. The rapid response was called and the patient was transferred to ICU where she was placed on 60% oxygenation via trach collar. [facility] reconsulted 05/23 due to hypotension. Currently managed for recurrent respiratory infections with MDRO managed by ID. CT chest does demonstrate a moderate left pleural effusion with left lower lobe atelectasis s/p thoracocentesis. Patient was again sent over to the ICU on 05/29 for acute pulmonary edema with further fever spikes. Patient underwent diuresis and was made a no code, was eventually stabilized and transition back to hospitalist care. Acute: Pancytopenia d/t myelodysplastic syndrome Per Heme/Onc: pancytopenia is due to MDS. She is not a candidate for chemo. Recommendation for pancytopenia is transfusion of PRBC (if Hg <7) and plat(if plat <15) support. Hx of DVT - anticoagulation recommended with platelet count consistently greater than 75,000; otherwise hold. -Transfused 1 unit PRBC on 06/13. Repeat CBC --> Hbg 7.9, now 8.3. Monitor Acute kidney injury with CKD -500 mL's NS after blood transfusion 06/13; Cr improved. Monitor closely for fluid overload. -avoid nephrotoxins Intermittent hypotension -Monitoring and keep map above 60 Electrolyte imbalance -Intermittent hypokalemia; monitor MDRO PSAE persistent colonisation New PNA, MDRO PSAE, Steno malt History of squamous cell carcinoma of the larynx now status post tracheostomy due to recurrent aspiration Spiculated right upper lobe pulmonary nodule, multiple R pulmonary nodules - ID following, Dr. 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 Currently on Meropenem, and levaquin. - UTI, MDRO PDSAE: resolvd with tx with Avycaz Chronic or resolved: Multiple pulmonary nodules- -Pulmonary also following. -Dr. Pineda has discussed risk/ benefits of biopsy with patient and her son on 05/05 and at that time they opted to defer biopsy. -Moderate pleural effusion s/p thora on 05/23, Cultures neg Depression/anxiety -Continue Lexapro and Wellbutrin, Continue Klonopin through the G-tube every 8 hours, Temazepam as needed for insomnia Gastroesophageal reflux disease -Continue PPI and lactobacillus through the G-tube daily. Diarrhea -Likely secondary to antibiotics, improving. C. difficile studies were negative on 05/25, Continue Lomotil. Chronic DVT of the right lower extremity -Holding Lovenox due to thrombocytopenia. Per heme oncology resume Lovenox if platelets are consistently above 75,000. R 1st digit of foot with increased erythema s/p trimming of ingrow toenail Podiatry reccs from 06/01: Recommend triple antibiotic with Band-Aid to right hallux medial border DVT PPX: Holding Lovenox due to thrombocytopenia per HemeOnc, SCD's (4) Hypothyroidism Qualifiers: Hypothyroidism type: unspecified Qualified Code(s): E03.9 - Hypothyroidism, unspecified
--- NOTE | 2018-06-16 19:30 | P.PN ---
Subjective Interval history: Remains on T Collar and PM valve. No changes overall. Physical Exam Vital signs: Vital Signs 06/15/18 20:00 06/16/18 00:00 06/16/18 04:00 Temperature 98.1 F 97.4 F L Pulse Rate 71 64 Respiratory Rate 18 18 18 Blood Pressure 100/40 L 104/52 L Pulse Oximetry 96 95 06/16/18 08:00 06/16/18 11:19 06/16/18 12:00 Temperature 98.4 F 97.8 F Pulse Rate 68 70 Respiratory Rate 16 16 Blood Pressure 98/56 L 100/41 L Pulse Oximetry 98 95 95 06/16/18 16:00 Temperature 98 F Pulse Rate 70 Respiratory Rate 16 Blood Pressure 98/58 L Pulse Oximetry 98 Intake & Output 06/16/18 06/16/18 06/17/18 06:59 18:59 06:59 Intake Total 1350 / 1350 1500 / 1500 Output Total 1050 / 1050 1050 / 1050 Balance 300 / 300 450 / 450 Weight 55.6 kg Intake: IV 400 / 400 500 / 500 Levaquin 750 mg Premix Inj 150 150 / 150 ML @ 100 mls/hr IV.SIG Q48H [facility] Rx#:[id number] Vabomere Inj 2,000 MG In NS Inj 250 / 250 500 / 500 250 ML @ 83.333 mls/hr IV.SIG Q8H [facility] Rx#:[id number] Tube Feeding 550 / 550 600 / 600 Water Bolus Amount 400 / 400 400 / 400 Output: Urine 0 / 0 Stool 0 / 0 Urine/Stool Mix 0 / 0 Emesis 0 / 0 Urine Amount (Catheter) 825 / 825 950 / 950 Indwelling Urethral Catheter 825 / 825 950 / 950 Gastric Drainage 225 / 225 100 / 100 Gastrojejunostomy Tube 225 / 225 100 / 100 Jejunostomy Tube 0 / 0 Other: Other Intake Source Saline Solution # Voids 0 # Incontinent Voids 0 # Urine Diapers 0 Date of Last Bowel Movement 06/16/18 # Bowel Movements 1 # Incontinent Bowel Movements 1 Narrative: GENERAL: Thin, elderly adult female in no obvious distress. SKIN: Warm and dry. Pale. HEAD: Atraumatic. Normocephalic. CARDIOVASCULAR: Regular rate and rhythm. No murmur. RESPIRATORY: No accessory muscle use. Occ wheeze and Breath sounds equal bilaterally. Trach in place. GASTROINTESTINAL: Abdomen soft, non-tender, non-distended. Positive bowel sounds. MUSCULOSKELETAL: Extremities without clubbing, cyanosis, or edema. No obvious deformities. NEUROLOGICAL: Awake and alert. Motor grossly within normal limits. - Urinary Catheter Management Indwelling Urethral Catheter Cath placed during this visit: yes Reason for continuing: Chronic Urinary Retention Insertion date: 05/25/18 Insertion time: 14:00 Results - Labs CBC & Chem 7: 06/15/18 05:00 06/16/18 09:33 Laboratory Results - last 24 hr 06/16/18 09:33 Sodium 138 Potassium 5.1 Chloride 101 Carbon Dioxide 30.7 Anion Gap 6 BUN 42 H Creatinine 1.17 H Estimated GFR 45 L Random Glucose 98 Calcium 7.9 L Assessment and Plan - Assessment (1) Respiratory failure Code(s): J96.90 - Respiratory failure, unspecified, unspecified whether with hypoxia or hypercapnia Status: Acute (2) Pneumonia Code(s): J18.9 - Pneumonia, unspecified organism Status: Acute (3) Status post trachelectomy Code(s): Z90.710 - Acquired absence of both cervix and uterus Status: Acute (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 Cont T collar at 28 % FIO2 . 2. Cont nebs with albuterol qid. PRN 3. PM valve daytime 12 hrs. 4. Cont Levsin .125 mg qid prn. 5. Tube feeds at 60 CC. 6. Up as tolerated. 7. CBC,BMP in am
[2018-06-17] MEDS: Hyoscyamine Liq Drops 0.125 MG/ML 15 ML Bottle SL SCH ×4 (04:07→21:00)
[2018-06-17] MEDS: SODIUM CHLOR 0.9% IV.SIG SCH ×3 (04:08→20:57)
[2018-06-17] MEDS: MEROPENEM VABORBACTAM IV.SIG SCH ×3 (04:08→20:57)
[2018-06-17] MEDS: Morphine Sulfate Oral Liq 10 MG/0.5 ML Syringe SL PRN (04:18)
[2018-06-17] MEDS: Levothyroxine 150 MCG Tablet J-TUBE SCH (06:15)
[2018-06-17 09:04] LABS: Hematocrit 22.3 % (35.0-46.0); Hemoglobin 7.6 gm/dL (11.6-15.3); Mean Corpuscular HGB Conc 34.2 % (32.0-36.0); Mean Corpuscular Hemoglobin 30.4 pg (27.0-34.0); Mean Corpuscular Volume 88.7 fL (80.0-100.0); Mean Platelet Volume 10.7 fL (7.0-11.0); Platelet Count 73 th/mm3 (150-450); Red Blood Count 2.52 mil/mm3 (4.00-5.30); Red Cell Distribution Width 13.8 % (11.6-17.2)
[2018-06-17] MEDS: Lactobacillus Acidophilus/L. Spores Tablet J-TUBE SCH ×3 (09:36→18:00)
[2018-06-17] MEDS: buPROPion 75 MG Tablet J-TUBE SCH ×2 (09:36→20:34)
[2018-06-17] MEDS: Loperamide Liq 2 MG/10 ML UDC J-TUBE SCH ×4 (09:36→20:34)
[2018-06-17] MEDS: Nystatin/Diphenhydramine/Lidocaine Mouthwash (Adult) 120 ML Botttle SWISH-SWAL SCH ×4 (09:37→20:35)
[2018-06-17] MEDS: Heparin Central Flush 100 UNIT/ML 5 ML Vial IV.FLUSH SCH (09:37)
[2018-06-17] MEDS: Ascorbic Acid 500 MG Tablet J-TUBE SCH ×2 (09:37→20:34)
[2018-06-17 10:07] LABS: Blast Cells 6 % (0-0); Eosinophils 11 % (0-4); Lymphocytes 26 % (9-44); Monocytes 18 % (0-8); Myelocytes 1 % (0-0)
[2018-06-17 10:08] LABS: Ovalocytes 1+
--- NOTE | 2018-06-17 10:27 | P.PN ---
Subjective Interval history: Patient seen and examined resting in bed comfortably in no acute distress. She denies any nausea, vomiting, diarrhea, cough, shortness of breath, chest pain, dizziness or lightheadedness. Reports he is doing well with Passy-Mahsa valve, no acute events reported by nursing staff. Physical Exam Vital signs: Vital Signs 06/16/18 11:19 06/16/18 12:00 06/16/18 16:00 Temperature 97.8 F 98 F Pulse Rate 70 70 Respiratory Rate 16 16 Blood Pressure 100/41 L 98/58 L Pulse Oximetry 95 95 98 06/17/18 00:00 06/17/18 00:45 06/17/18 04:00 Temperature Pulse Rate 71 Respiratory Rate 18 18 Blood Pressure 96/52 L Pulse Oximetry 96 94 L 06/17/18 08:00 Temperature 98.5 F Pulse Rate 67 Respiratory Rate 16 Blood Pressure 102/48 L Pulse Oximetry 96 Intake & Output 06/16/18 06/17/18 06/17/18 18:59 06:59 18:59 Intake Total 1500 / 1500 1000 / 1000 250 / 250 Output Total 1050 / 1050 1350 / 1350 Balance 450 / 450 -350 / -350 250 / 250 Weight 55.6 kg Intake: IV 500 / 500 250 / 250 250 / 250 Vabomere Inj 2,000 MG In NS Inj 500 / 500 250 / 250 250 / 250 250 ML @ 83.333 mls/hr IV.SIG Q8H [facility] Rx#:[id number] Tube Feeding 600 / 600 550 / 550 Water Bolus Amount 400 / 400 200 / 200 Output: Urine 0 / 0 Stool 0 / 0 Urine/Stool Mix 0 / 0 Emesis 0 / 0 Urine Amount (Catheter) 950 / 950 900 / 900 Indwelling Urethral Catheter 950 / 950 900 / 900 Gastric Drainage 100 / 100 450 / 450 Gastrojejunostomy Tube 100 / 100 450 / 450 Jejunostomy Tube 0 / 0 Other: Other Intake Source Saline Solution # Voids 0 # Incontinent Voids 0 # Urine Diapers 0 Date of Last Bowel Movement 06/16/18 06/12/18 # Bowel Movements 1 # Incontinent Bowel Movements 1 Narrative: GENERAL: Thin, well developed adult female in no obvious distress. SKIN: Warm and dry. Pale. HEAD: Atraumatic. Normocephalic. CARDIOVASCULAR: Regular rate and rhythm. No murmur. RESPIRATORY: No accessory muscle use. Breath sounds equal bilaterally. Trach in place. GASTROINTESTINAL: Abdomen soft, non-tender, non-distended. Hyperactive bowel sounds. MUSCULOSKELETAL: Extremities without clubbing, cyanosis, or edema. No obvious deformities. NEUROLOGICAL: Awake and alert. Motor grossly within normal limits. - Urinary Catheter Management Indwelling Urethral Catheter Cath placed during this visit: yes Reason for continuing: Chronic Urinary Retention Insertion date: 05/25/18 Insertion time: 14:00 Results - Labs CBC & Chem 7: 06/17/18 07:39 06/16/18 09:33 Laboratory Results - last 24 hr 06/16/18 06/17/18 09:33 07:39 WBC 3.0 L RBC 2.52 L Hgb 7.6 L Hct 22.3 L MCV 88.7 MCH 30.4 MCHC 34.2 RDW 13.8 Plt Count 73 L MPV 10.7 Prelim Diff (Auto) Manual diff required WBC Differential Manual diff final Seg Neuts % (Manual) 35 Band Neuts % (Manual) 1 Lymphocytes % (Manual) 26 Monocytes % (Manual) 18 H Eosinophils % (Manual) 11 H Basophils % (Manual) 2 Myelocytes % (Man) 1 H Blast Cells % (Manual) 6 H Abs Neuts (Manual) 1.1 L Differential Comment . Platelet Estimate Low L Platelet Morphology Enlarged H Ovalocytes 1+ H Sodium 138 Potassium 5.1 Chloride 101 Carbon Dioxide 30.7 Anion Gap 6 BUN 42 H Creatinine 1.17 H Estimated GFR 45 L Random Glucose 98 Calcium 7.9 L Assessment and Plan - Assessment (1) Pneumonia Code(s): J18.9 - Pneumonia, unspecified organism Status: Acute (2) GERD (gastroesophageal reflux disease) Code(s): K21.9 - Gastro-esophageal reflux disease without esophagitis Status: Chronic (3) DVT (deep venous thrombosis) Code(s): I82.409 - Acute embolism and thrombosis of unspecified deep veins of unspecified lower extremity Status: Acute (4) Hypothyroidism Code(s): E03.9 - Hypothyroidism, unspecified Status: Chronic (5) Laryngeal squamous cell carcinoma Code(s): C32.9 - Malignant neoplasm of larynx, unspecified Status: Chronic (6) Protein-calorie malnutrition, severe Code(s): E43 - Unspecified severe protein-calorie malnutrition Status: Chronic - Plan This is a 73-year-old female with 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 The rapid response was called and the patient was transferred to ICU where she was placed on 60% oxygenation via trach collar. CCM reconsulted 05/23 due to hypotension. Currently managed for recurrent respiratory infections with MDRO managed by ID. CT chest does demonstrate a moderate left pleural effusion with left lower lobe atelectasis s/p thoracocentesis. Patient was again sent over to the ICU on 05/29 for acute pulmonary edema with further fever spikes. Patient underwent diuresis and was made a no code, was eventually stabilized and transition back to hospitalist care. Acute: Pancytopenia d/t myelodysplastic syndrome Per Heme/Onc: pancytopenia is due to MDS. She is not a candidate for chemo. Recommendation for pancytopenia is transfusion of PRBC (if Hg <7) and plat(if plat <15) support. Hx of DVT - anticoagulation recommended with platelet count consistently greater than 75,000; otherwise hold. -H&H this morning 7.6/22.3 with platelets 73, asymptomatic, continue to monitor. Acute kidney injury with CKD -s/p fluid bolus and blood transfusion 06/13; Cr improved. -avoid nephrotoxins Intermittent hypotension -Monitoring and keep map above 60 Electrolyte imbalance -Intermittent hypokalemia; monitor MDRO PSAE persistent colonisation New PNA, MDRO PSAE, Steno malt History of squamous cell carcinoma of the larynx now status post tracheostomy due to recurrent aspiration Spiculated right upper lobe pulmonary nodule, multiple R pulmonary nodules - ID following, Dr. 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 Currently on Meropenem, and levaquin. - UTI, MDRO PDSAE: resolvd with tx with Avycaz Chronic or resolved: Multiple pulmonary nodules- -Pulmonary also following. -Dr. Pineda has discussed risk/ benefits of biopsy with patient and her son on 05/05 and at that time they opted to defer biopsy. -Moderate pleural effusion s/p thora on 05/23, Cultures neg Depression/anxiety -Continue Lexapro and Wellbutrin, Continue Klonopin through the G-tube every 8 hours, Temazepam as needed for insomnia Gastroesophageal reflux disease -Continue PPI and lactobacillus through the G-tube daily. Diarrhea -Likely secondary to antibiotics, improving. C. difficile studies were negative on 05/25, Continue Lomotil. Chronic DVT of the right lower extremity -Holding Lovenox due to thrombocytopenia. Per heme oncology resume Lovenox if platelets are consistently above 75,000. R 1st digit of foot with increased erythema s/p trimming of ingrow toenail Podiatry reccs from 06/01: Recommend triple antibiotic with Band-Aid to right hallux medial border DVT PPX: Holding Lovenox due to thrombocytopenia per HemeOnc, SCD's Discussed Condition With: Patient and nursing staff (4) Hypothyroidism Qualifiers: Hypothyroidism type: unspecified Qualified Code(s): E03.9 - Hypothyroidism, unspecified
--- NOTE | 2018-06-17 18:18 | P.PN ---
Subjective Interval history: Alert and talking more. On a T Bar 28 % and PM Valve is ON. No SOB . Physical Exam Vital signs: Vital Signs 06/17/18 00:00 06/17/18 00:45 06/17/18 04:00 Temperature Pulse Rate 71 Respiratory Rate 18 18 Blood Pressure 96/52 L Pulse Oximetry 96 94 L 06/17/18 08:00 06/17/18 12:00 Temperature 98.5 F 97.6 F Pulse Rate 67 68 Respiratory Rate 16 16 Blood Pressure 102/48 L 98/48 L Pulse Oximetry 96 94 L Intake & Output 06/16/18 06/17/18 06/17/18 18:59 06:59 18:59 Intake Total 1500 / 1500 1000 / 1000 250 / 250 Output Total 1050 / 1050 1350 / 1350 Balance 450 / 450 -350 / -350 250 / 250 Weight 55.6 kg Intake: IV 500 / 500 250 / 250 250 / 250 Vabomere Inj 2,000 MG In NS Inj 500 / 500 250 / 250 250 / 250 250 ML @ 83.333 mls/hr IV.SIG Q8H [facility] Rx#:[id number] Tube Feeding 600 / 600 550 / 550 Water Bolus Amount 400 / 400 200 / 200 Output: Urine 0 / 0 Stool 0 / 0 Urine/Stool Mix 0 / 0 Emesis 0 / 0 Urine Amount (Catheter) 950 / 950 900 / 900 Indwelling Urethral Catheter 950 / 950 900 / 900 Gastric Drainage 100 / 100 450 / 450 Gastrojejunostomy Tube 100 / 100 450 / 450 Jejunostomy Tube 0 / 0 Other: Other Intake Source Saline Solution # Voids 0 # Incontinent Voids 0 # Urine Diapers 0 Date of Last Bowel Movement 06/16/18 06/12/18 # Bowel Movements 1 # Incontinent Bowel Movements 1 Narrative: GENERAL: Thin, pale adult female in no obvious distress. SKIN: Warm and dry. Pale. HEAD: Atraumatic. Normocephalic. CARDIOVASCULAR: Regular rate and rhythm. No murmur. RESPIRATORY: No accessory muscle use. Breath sounds equal bilaterally. Trach in place. GASTROINTESTINAL: Abdomen soft, non-tender, non-distended. Hyperactive bowel sounds. MUSCULOSKELETAL: Extremities without clubbing, cyanosis, or edema. No obvious deformities. NEUROLOGICAL: Awake and alert. Motor grossly within normal limits. - Urinary Catheter Management Indwelling Urethral Catheter Cath placed during this visit: yes Reason for continuing: Chronic Urinary Retention Insertion date: 05/25/18 Insertion time: 14:00 Results - Labs CBC & Chem 7: 06/17/18 07:39 06/16/18 09:33 Laboratory Results - last 24 hr 06/17/18 07:39 WBC 3.0 L RBC 2.52 L Hgb 7.6 L Hct 22.3 L MCV 88.7 MCH 30.4 MCHC 34.2 RDW 13.8 Plt Count 73 L MPV 10.7 Prelim Diff (Auto) Manual diff required WBC Differential Manual diff final Seg Neuts % (Manual) 35 Band Neuts % (Manual) 1 Lymphocytes % (Manual) 26 Monocytes % (Manual) 18 H Eosinophils % (Manual) 11 H Basophils % (Manual) 2 Myelocytes % (Man) 1 H Blast Cells % (Manual) 6 H Abs Neuts (Manual) 1.1 L Differential Comment . Platelet Estimate Low L Platelet Morphology Enlarged H Ovalocytes 1+ H Assessment and Plan - Assessment (1) Respiratory failure Code(s): J96.90 - Respiratory failure, unspecified, unspecified whether with hypoxia or hypercapnia Status: Acute (2) Pneumonia Code(s): J18.9 - Pneumonia, unspecified organism Status: Acute (3) Status post trachelectomy Code(s): Z90.710 - Acquired absence of both cervix and uterus Status: Acute (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 Cont T collar at 28 % FIO2 . 2. Cont nebs with albuterol qid. PRN 3. PM valve daytime 16 hrs. 4. Cont Levsin .125 mg qid prn. 5. Tube feeds at 60 CC. 6. Up as tolerated. 7. CXR on 06/19
[2018-06-18] MEDS: MEROPENEM VABORBACTAM IV.SIG SCH ×3 (03:12→22:17)
[2018-06-18] MEDS: SODIUM CHLOR 0.9% IV.SIG SCH ×3 (03:12→22:17)
[2018-06-18] MEDS: Hyoscyamine Liq Drops 0.125 MG/ML 15 ML Bottle SL SCH ×4 (03:15→23:47)
[2018-06-18] MEDS: Levothyroxine 150 MCG Tablet J-TUBE SCH (06:24)
[2018-06-18] MEDS: Lactobacillus Acidophilus/L. Spores Tablet J-TUBE SCH ×3 (08:39→17:56)
[2018-06-18] MEDS: buPROPion 75 MG Tablet J-TUBE SCH ×2 (08:39→20:24)
[2018-06-18] MEDS: Ascorbic Acid 500 MG Tablet J-TUBE SCH ×2 (08:39→20:23)
[2018-06-18] MEDS: Heparin Central Flush 100 UNIT/ML 5 ML Vial IV.FLUSH SCH (08:40)
[2018-06-18] MEDS: Nystatin/Diphenhydramine/Lidocaine Mouthwash (Adult) 120 ML Botttle SWISH-SWAL SCH ×4 (08:41→20:24)
[2018-06-18] MEDS: Loperamide Liq 2 MG/10 ML UDC J-TUBE SCH ×4 (08:41→22:17)
--- NOTE | 2018-06-18 14:08 | P.PN ---
Subjective Interval history: Follow-up visit for chronic trach, anemia and UTI. Patient is seen and examined resting in bed in no acute distress. Denies pain or discomfort, cough, SOB or chest pain. Nurse does not report any acute events. Physical Exam Vital signs: Vital Signs 06/17/18 16:00 06/17/18 20:00 06/18/18 00:00 Temperature 98.5 F 97.4 F L 97.9 F Pulse Rate 70 68 68 Respiratory Rate 16 18 20 Blood Pressure 87/42 L 88/46 L 97/47 L Pulse Oximetry 99 99 94 L 06/18/18 00:20 06/18/18 04:00 06/18/18 08:00 Temperature 98.6 F 98.7 F Pulse Rate 65 77 Respiratory Rate 18 14 Blood Pressure 99/61 L 123/87 Pulse Oximetry 97 97 98 06/18/18 08:33 06/18/18 12:00 Temperature 98.3 F Pulse Rate 64 Respiratory Rate 14 Blood Pressure 96/42 L Pulse Oximetry 97 99 Intake & Output 06/17/18 06/18/18 06/18/18 18:59 06:59 18:59 Intake Total 1520 / 1520 1905 / 1905 Output Total 1100 / 1100 1000 / 1000 Balance 420 / 420 905 / 905 Weight 55.1 kg Intake: IV 500 / 500 650 / 650 Levaquin 750 mg Premix Inj 150 150 / 150 ML @ 100 mls/hr IV.SIG Q48H [facility] Rx#:[id number] Vabomere Inj 2,000 MG In NS Inj 500 / 500 500 / 500 250 ML @ 83.333 mls/hr IV.SIG Q8H [facility] Rx#:[id number] Oral 20 / 20 Tube Feeding 600 / 600 605 / 605 Tube Irrigant 150 / 150 Water Bolus Amount 400 / 400 500 / 500 Output: Urine 0 / 0 Stool 0 / 0 Urine/Stool Mix 0 / 0 Emesis 0 / 0 Urine Amount (Catheter) 950 / 950 900 / 900 Indwelling Urethral Catheter 950 / 950 900 / 900 Gastric Drainage 150 / 150 100 / 100 Gastrojejunostomy Tube 150 / 150 100 / 100 Jejunostomy Tube 0 / 0 Other: # Voids 0 # Incontinent Voids 0 # Urine Diapers 0 Date of Last Bowel Movement 06/17/18 06/17/18 06/18/18 # Bowel Movements 2 # Incontinent Bowel Movements 2 Narrative: GENERAL: Thin, well developed adult female in no obvious distress. SKIN: Warm and dry. Pale. HEAD: Atraumatic. Normocephalic. CARDIOVASCULAR: Regular rate and rhythm. No murmur. RESPIRATORY: No accessory muscle use. Breath sounds equal bilaterally. Trach in place. GASTROINTESTINAL/: Abdomen soft, non-tender, non-distended. +BS. Peg with surrounding dry drainage, bag to gravity. [place] with clear yellow urine. MUSCULOSKELETAL: Extremities without clubbing, cyanosis, or edema. No obvious deformities. NEUROLOGICAL: Awake and alert. Motor grossly within normal limits. - Urinary Catheter Management Indwelling Urethral Catheter Cath placed during this visit: yes Reason for continuing: Chronic Urinary Retention Insertion date: 05/25/18 Insertion time: 14:00 Results - Labs CBC & Chem 7: 06/17/18 07:39 06/16/18 09:33 Assessment and Plan - Assessment (1) Pneumonia Code(s): J18.9 - Pneumonia, unspecified organism Status: Acute (2) GERD (gastroesophageal reflux disease) Code(s): K21.9 - Gastro-esophageal reflux disease without esophagitis Status: Chronic (3) DVT (deep venous thrombosis) Code(s): I82.409 - Acute embolism and thrombosis of unspecified deep veins of unspecified lower extremity Status: Acute (4) Hypothyroidism Code(s): E03.9 - Hypothyroidism, unspecified Status: Chronic (5) Laryngeal squamous cell carcinoma Code(s): C32.9 - Malignant neoplasm of larynx, unspecified Status: Chronic (6) Protein-calorie malnutrition, severe Code(s): E43 - Unspecified severe protein-calorie malnutrition Status: Chronic - Plan This is a 73-year-old female with 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 The rapid response was called and the patient was transferred to ICU where she was placed on 60% oxygenation via trach collar. [facility] reconsulted 05/23 due to hypotension. Currently managed for recurrent respiratory infections with MDRO managed by ID. CT chest does demonstrate a moderate left pleural effusion with left lower lobe atelectasis s/p thoracocentesis. Patient was again sent over to the ICU on 05/29 for acute pulmonary edema with further fever spikes. Patient underwent diuresis and was made a no code, was eventually stabilized and transition back to hospitalist care. Acute: Pancytopenia d/t myelodysplastic syndrome Per Heme/Onc: pancytopenia is due to MDS. She is not a candidate for chemo. Recommendation for pancytopenia is transfusion of PRBC (if Hg <7) and plat(if plat <15) support. Hx of DVT - anticoagulation recommended with platelet count consistently greater than 75,000; otherwise hold. -H&H 7.6/22.3 with platelets 73, asymptomatic, continue to monitor. Acute kidney injury with CKD -s/p fluid bolus and blood transfusion 06/13; Cr improved. -avoid nephrotoxins Intermittent hypotension -Monitoring and keep map above 60 Electrolyte imbalance -Intermittent hypokalemia; monitor MDRO PSAE persistent colonisation New PNA, MDRO PSAE, Steno malt 05/29 History of squamous cell carcinoma of the larynx now status post tracheostomy due to recurrent aspiration Spiculated right upper lobe pulmonary nodule, multiple R pulmonary nodules - ID following, Dr. Canchola, appreciate assistance with mgmt, Bld Cx from negative, Urine Cx from 05/29, negative, Sputum Cx on 05/29+ ---Pseudomonas MDR, sensitive to only tobramycin. Currently on Meropenem, and levaquin. - UTI, MDRO PDSAE: resolvd with tx with Avycaz Chronic or resolved: Multiple pulmonary nodules- -Pulmonary also following. -Dr. Pineda has discussed risk/ benefits of biopsy with patient and her son on 05/05 and at that time they opted to defer biopsy. -Moderate pleural effusion s/p thora on 05/23, Cultures neg Depression/anxiety -Continue Lexapro and Wellbutrin, Continue Klonopin through the G-tube every 8 hours, Temazepam as needed for insomnia Gastroesophageal reflux disease -Continue PPI and lactobacillus through the G-tube to gravity, discussed with nurse, gauze underneath to prevent skin maceration. Diarrhea -Likely secondary to antibiotics, improving. C. difficile studies were negative on 05/25, Continue Lomotil. Chronic DVT of the right lower extremity -Holding Lovenox due to thrombocytopenia. Per heme oncology resume Lovenox if platelets are consistently above 75,000. R 1st digit of foot with increased erythema s/p trimming of ingrow toenail Podiatry reccs from 06/01: Recommend triple antibiotic with Band-Aid to right hallux medial border DVT PPX: Holding Lovenox due to thrombocytopenia per SIDDHARTHA Chu's (4) Hypothyroidism Qualifiers: Hypothyroidism type: unspecified Qualified Code(s): E03.9 - Hypothyroidism, unspecified
--- NOTE | 2018-06-18 18:12 | P.PN ---
Subjective Interval history: Doing OK. PM Valve is off. On a T bar at 28 %. Needs suctioning. Physical Exam Vital signs: Vital Signs 06/17/18 20:00 06/18/18 00:00 06/18/18 00:20 Temperature 97.4 F L 97.9 F Pulse Rate 68 68 Respiratory Rate 18 20 Blood Pressure 88/46 L 97/47 L Pulse Oximetry 99 94 L 97 06/18/18 04:00 06/18/18 08:00 06/18/18 08:33 Temperature 98.6 F 98.7 F Pulse Rate 65 77 Respiratory Rate 18 14 Blood Pressure 99/61 L 123/87 Pulse Oximetry 97 98 97 06/18/18 12:00 06/18/18 16:00 Temperature 98.3 F 97.4 F L Pulse Rate 64 61 Respiratory Rate 14 14 Blood Pressure 96/42 L 114/42 L Pulse Oximetry 99 88 L Intake & Output 06/17/18 06/18/18 06/18/18 18:59 06:59 18:59 Intake Total 1520 / 1520 1905 / 1905 1150 / 1150 Output Total 1100 / 1100 1000 / 1000 800 / 800 Balance 420 / 420 905 / 905 350 / 350 Weight 55.1 kg Intake: IV 500 / 500 650 / 650 Levaquin 750 mg Premix Inj 150 150 / 150 ML @ 100 mls/hr IV.SIG Q48H [facility] Rx#:[id number] Vabomere Inj 2,000 MG In NS Inj 500 / 500 500 / 500 250 ML @ 83.333 mls/hr IV.SIG Q8H [facility] Rx#:[id number] Oral 20 / 20 Tube Feeding 600 / 600 605 / 605 650 / 650 Tube Irrigant 150 / 150 Water Bolus Amount 400 / 400 500 / 500 500 / 500 Output: Urine 0 / 0 Stool 0 / 0 Urine/Stool Mix 0 / 0 Emesis 0 / 0 Urine Amount (Catheter) 950 / 950 900 / 900 800 / 800 Indwelling Urethral Catheter 950 / 950 900 / 900 800 / 800 Gastric Drainage 150 / 150 100 / 100 Gastrojejunostomy Tube 150 / 150 100 / 100 Jejunostomy Tube 0 / 0 Other: # Voids 0 # Incontinent Voids 0 # Urine Diapers 0 Date of Last Bowel Movement 06/17/18 06/17/18 06/18/18 # Bowel Movements 2 5 # Incontinent Bowel Movements 2 Narrative: GENERAL: Thin, well developed adult female in no obvious distress. SKIN: Warm and dry. Pale. HEAD: Atraumatic. Normocephalic. CARDIOVASCULAR: Regular rate and rhythm. No murmur. RESPIRATORY: No accessory muscle use. Breath sounds equal bilaterally. Trach in place. GASTROINTESTINAL/: Abdomen soft, non-tender, non-distended. +BS. Peg with surrounding dry drainage. MUSCULOSKELETAL: Extremities without clubbing, cyanosis, or edema. No obvious deformities. NEUROLOGICAL: Awake and alert. Motor grossly within normal limits. - Urinary Catheter Management Indwelling Urethral Catheter Cath placed during this visit: yes Reason for continuing: Chronic Urinary Retention Insertion date: 05/25/18 Insertion time: 14:00 Results - Labs CBC & Chem 7: 06/17/18 07:39 06/16/18 09:33 Assessment and Plan - Assessment (1) Respiratory failure Code(s): J96.90 - Respiratory failure, unspecified, unspecified whether with hypoxia or hypercapnia Status: Acute (2) Pneumonia Code(s): J18.9 - Pneumonia, unspecified organism Status: Acute (3) Status post trachelectomy Code(s): Z90.710 - Acquired absence of both cervix and uterus Status: Acute (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 Cont T collar at 28 % FIO2 . 2. Cont nebs with albuterol qid. PRN 3. PM valve daytime 12 hrs. 4. Cont Levsin .125 mg qid prn. 5. Tube feeds at 60 CC. 6. Up as tolerated.
[2018-06-19] MEDS: MEROPENEM VABORBACTAM IV.SIG SCH (04:00)
[2018-06-19] MEDS: SODIUM CHLOR 0.9% IV.SIG SCH (04:00)
[2018-06-19] MEDS: Hyoscyamine Liq Drops 0.125 MG/ML 15 ML Bottle SL SCH ×4 (05:00→21:27)
[2018-06-19] MEDS: Levothyroxine 150 MCG Tablet J-TUBE SCH (06:30)
[2018-06-19 07:09] LABS: Hematocrit 21.3 % (35.0-46.0); Hemoglobin 7.4 gm/dL (11.6-15.3); Mean Corpuscular HGB Conc 34.6 % (32.0-36.0); Mean Corpuscular Hemoglobin 30.5 pg (27.0-34.0); Mean Corpuscular Volume 88.2 fL (80.0-100.0); Mean Platelet Volume 9.3 fL (7.0-11.0); Platelet Count 66 th/mm3 (150-450); Red Blood Count 2.42 mil/mm3 (4.00-5.30); Red Cell Distribution Width 13.8 % (11.6-17.2); White Blood Count 3.2 th/mm3 (4.0-11.0)
[2018-06-19 07:46] LABS: Calcium 7.9 mg/dL (8.5-10.1); Carbon Dioxide 28.1 meq/L (21.0-32.0); Potassium 5.1 meq/L (3.5-5.1)
[2018-06-19] MEDS: Heparin Central Flush 100 UNIT/ML 5 ML Vial IV.FLUSH SCH (08:00)
[2018-06-19] MEDS: Nystatin/Diphenhydramine/Lidocaine Mouthwash (Adult) 120 ML Botttle SWISH-SWAL SCH ×4 (08:01→21:26)
[2018-06-19] MEDS: Lactobacillus Acidophilus/L. Spores Tablet J-TUBE SCH ×3 (08:01→17:21)
[2018-06-19] MEDS: Loperamide Liq 2 MG/10 ML UDC J-TUBE SCH ×4 (08:01→21:26)
[2018-06-19] MEDS: Ascorbic Acid 500 MG Tablet J-TUBE SCH ×2 (09:20→21:27)
[2018-06-19] MEDS: buPROPion 75 MG Tablet J-TUBE SCH ×2 (09:20→21:27)
[2018-06-19] MEDS ORDERED: MEROPENEM VABORBACTAM IV.SIG SCH (10:00)
[2018-06-19] MEDS ORDERED: SODIUM CHLOR 0.9% IV.SIG SCH (10:00)
--- NOTE | 2018-06-19 10:17 | P.PN ---
Subjective Interval history: Follow-up visit for anemia, UTI and chronic trach. Patient seen and examined resting in bed with nurse at bedside. She denies any nausea, vomiting, fevers, chills, cough or shortness of breath. No acute events reported overnight or this morning. Physical Exam Vital signs: Vital Signs 06/18/18 12:00 06/18/18 16:00 06/18/18 19:55 Temperature 98.3 F 97.4 F L Pulse Rate 64 61 Respiratory Rate 14 14 Blood Pressure 96/42 L 114/42 L Pulse Oximetry 99 88 L 99 06/18/18 20:00 06/18/18 21:00 06/18/18 23:34 Temperature 97.0 F L 97.1 F L Pulse Rate 60 66 Respiratory Rate 16 Blood Pressure 109/57 L 107/35 L Pulse Oximetry 92 L 99 06/19/18 01:49 06/19/18 04:45 06/19/18 07:40 Temperature 97.3 F L 97.8 F Pulse Rate 71 69 Respiratory Rate 16 18 Blood Pressure 108/43 L 112/46 L Pulse Oximetry 96 97 Intake & Output 06/18/18 06/19/18 06/19/18 18:59 06:59 18:59 Intake Total 1400 / 1400 250 / 250 Output Total 800 / 800 1300 / 1300 Balance 600 / 600 -1050 / -1050 Weight 55.1 kg Intake: IV 250 / 250 250 / 250 Vabomere Inj 2,000 MG In NS Inj 250 / 250 250 / 250 250 ML @ 83.333 mls/hr IV.SIG Q8H [facility] Rx#:[id number] Tube Feeding 650 / 650 Water Bolus Amount 500 / 500 Output: Urine Amount (Catheter) 800 / 800 1300 / 1300 Indwelling Urethral Catheter 800 / 800 1300 / 1300 Other: Date of Last Bowel Movement 06/18/18 06/18/18 06/18/18 # Bowel Movements 5 Narrative: GENERAL: Thin, well developed adult female in no obvious distress. SKIN: Warm and dry. Pale. HEAD: Atraumatic. Normocephalic. CARDIOVASCULAR: Regular rate and rhythm. No murmur. RESPIRATORY: No accessory muscle use. Breath sounds equal bilaterally. Trach in place. GASTROINTESTINAL: Abdomen soft, non-tender, non-distended. Normoactive bowel sounds. MUSCULOSKELETAL: Extremities without clubbing, cyanosis, or edema. No obvious deformities. NEUROLOGICAL: Awake and alert. Motor grossly within normal limits. - Urinary Catheter Management Indwelling Urethral Catheter Cath placed during this visit: yes Reason for continuing: Acute urinary retention Insertion date: 05/25/18 Insertion time: 14:00 Results - Labs CBC & Chem 7: 06/19/18 06:46 06/19/18 06:46 Laboratory Results - last 24 hr 06/19/18 06/19/18 06:46 06:46 WBC 3.2 L RBC 2.42 L Hgb 7.4 L Hct 21.3 L MCV 88.2 MCH 30.5 MCHC 34.6 RDW 13.8 Plt Count 66 L MPV 9.3 Sodium 137 Potassium 5.1 Chloride 102 Carbon Dioxide 28.1 Anion Gap 7 BUN 42 H Creatinine 1.15 H Estimated GFR 46 L Random Glucose 88 Calcium 7.9 L Assessment and Plan - Assessment (1) Pneumonia Code(s): J18.9 - Pneumonia, unspecified organism Status: Acute (2) GERD (gastroesophageal reflux disease) Code(s): K21.9 - Gastro-esophageal reflux disease without esophagitis Status: Chronic (3) DVT (deep venous thrombosis) Code(s): I82.409 - Acute embolism and thrombosis of unspecified deep veins of unspecified lower extremity Status: Acute (4) Hypothyroidism Code(s): E03.9 - Hypothyroidism, unspecified Status: Chronic (5) Laryngeal squamous cell carcinoma Code(s): C32.9 - Malignant neoplasm of larynx, unspecified Status: Chronic (6) Protein-calorie malnutrition, severe Code(s): E43 - Unspecified severe protein-calorie malnutrition Status: Chronic - Plan This is a 73-year-old female with 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 The rapid response was called and the patient was transferred to ICU where she was placed on 60% oxygenation via trach collar. [facility] reconsulted 05/23 due to hypotension. Currently managed for recurrent respiratory infections with MDRO managed by ID. CT chest does demonstrate a moderate left pleural effusion with left lower lobe atelectasis s/p thoracocentesis. Patient was again sent over to the ICU on 05/29 for acute pulmonary edema with further fever spikes. Patient underwent diuresis and was made a no code, was eventually stabilized and transition back to hospitalist care. Acute: Pancytopenia d/t myelodysplastic syndrome Per Heme/Onc: pancytopenia is due to MDS. She is not a candidate for chemo. Recommendation for pancytopenia is transfusion of PRBC (if Hg <7) and plat(if plat <15) support. Hx of DVT - anticoagulation recommended with platelet count consistently greater than 75,000; otherwise hold. -H&H 7.4/21.3 with platelets 66, asymptomatic, continue to monitor. Acute kidney injury with CKD -Creatinine stable, continue to monitor intermittently -avoid nephrotoxins Intermittent hypotension -Monitoring and keep map above 60 Electrolyte imbalance -Intermittent hypokalemia; monitor MDRO PSAE persistent colonization New PNA, MDRO PSAE, Steno malt 05/29 History of squamous cell carcinoma of the larynx now status post tracheostomy due to recurrent aspiration Spiculated right upper lobe pulmonary nodule, multiple R pulmonary nodules - ID following, Dr. Canchola, appreciate assistance with mgmt, Bld Cx from negative, Urine Cx from 05/29, negative, Sputum Cx on 05/29+ ---Pseudomonas MDR, sensitive to only tobramycin. Currently on Meropenem, and levaquin. - UTI, MDRO PDSAE: resolvd with tx with Avycaz Chronic or resolved: Multiple pulmonary nodules- -Pulmonary also following. -Dr. Pineda has discussed risk/ benefits of biopsy with patient and her son on 05/05 and at that time they opted to defer biopsy. -Moderate pleural effusion s/p thora on 05/23, Cultures neg Depression/anxiety -Continue Lexapro and Wellbutrin, Continue Klonopin through the G-tube every 8 hours, Temazepam as needed for insomnia Gastroesophageal reflux disease -Continue PPI and lactobacillus through the G-tube to gravity, discussed with nurse, gauze underneath to prevent skin maceration. Diarrhea -Likely secondary to antibiotics, improving. C. difficile studies were negative on 05/25, Continue Lomotil. Chronic DVT of the right lower extremity -Holding Lovenox due to thrombocytopenia. Per heme oncology resume Lovenox if platelets are consistently above 75,000. R 1st digit of foot with increased erythema s/p trimming of ingrow toenail Podiatry reccs from 06/01: Recommend triple antibiotic with Band-Aid to right hallux medial border DVT PPX: Holding Lovenox due to thrombocytopenia per HemeOnc, SCD's Discussed Condition With: Patient and RN (4) Hypothyroidism Qualifiers: Hypothyroidism type: unspecified Qualified Code(s): E03.9 - Hypothyroidism, unspecified
--- NOTE | 2018-06-19 19:48 | P.PN ---
Subjective Interval history: Doing well. On T Bar at 28 %. Ou put was good. Physical Exam Vital signs: Vital Signs 06/18/18 19:55 06/18/18 20:00 06/18/18 21:00 Temperature 97.0 F L Pulse Rate 60 Respiratory Rate 16 Blood Pressure 109/57 L Pulse Oximetry 99 92 L 06/18/18 23:34 06/19/18 01:49 06/19/18 04:45 Temperature 97.1 F L 97.3 F L Pulse Rate 66 71 Respiratory Rate 16 Blood Pressure 107/35 L 108/43 L Pulse Oximetry 99 96 97 06/19/18 07:40 06/19/18 12:00 06/19/18 16:00 Temperature 97.8 F 97.8 F 98.1 F Pulse Rate 69 71 71 Respiratory Rate 18 18 18 Blood Pressure 112/46 L 103/49 L 101/53 L Pulse Oximetry 97 95 Intake & Output 06/19/18 06/19/18 06/20/18 06:59 18:59 06:59 Intake Total 250 / 250 1195 / 1195 Output Total 1300 / 1300 800 / 800 Balance -1050 / -1050 395 / 395 Weight 55.1 kg Intake: IV 250 / 250 Vabomere Inj 2,000 MG In NS Inj 250 / 250 250 ML @ 83.333 mls/hr IV.SIG Q8H [facility] Rx#:[id number] Oral 20 / 20 Tube Feeding 550 / 550 Tube Irrigant 150 / 150 Water Bolus Amount 475 / 475 Other 0 / 0 Output: Urine 0 / 0 Stool 0 / 0 Urine/Stool Mix 0 / 0 Emesis 0 / 0 Urine Amount (Catheter) 1300 / 1300 700 / 700 Indwelling Urethral Catheter 1300 / 1300 700 / 700 Gastric Drainage 100 / 100 Gastrojejunostomy Tube 100 / 100 Jejunostomy Tube 0 / 0 Other: Other Intake Source Saline Solution # Voids 0 # Incontinent Voids 0 # Urine Diapers 0 Date of Last Bowel Movement 06/18/18 06/19/18 # Bowel Movements 1 # Incontinent Bowel Movements 1 Narrative: GENERAL: Thin, well developed elderly White female in no obvious distress. SKIN: Warm and dry. Pale. HEAD: Atraumatic. Normocephalic. CARDIOVASCULAR: Regular rate and rhythm. No murmur. RESPIRATORY: No accessory muscle use. Breath sounds equal bilaterally. Occ Wheeze. Trach in place. GASTROINTESTINAL: Abdomen soft, non-tender, non-distended. Normoactive bowel sounds. MUSCULOSKELETAL: Extremities without clubbing, cyanosis, or edema. No obvious deformities. NEUROLOGICAL: Awake and alert. Motor grossly within normal limits. - Urinary Catheter Management Indwelling Urethral Catheter Cath placed during this visit: yes Reason for continuing: Acute urinary retention Insertion date: 05/25/18 Insertion time: 14:00 Results - Labs CBC & Chem 7: 06/19/18 06:46 06/19/18 06:46 Laboratory Results - last 24 hr 06/19/18 06/19/18 06:46 06:46 WBC 3.2 L RBC 2.42 L Hgb 7.4 L Hct 21.3 L MCV 88.2 MCH 30.5 MCHC 34.6 RDW 13.8 Plt Count 66 L MPV 9.3 Sodium 137 Potassium 5.1 Chloride 102 Carbon Dioxide 28.1 Anion Gap 7 BUN 42 H Creatinine 1.15 H Estimated GFR 46 L Random Glucose 88 Calcium 7.9 L Assessment and Plan - Assessment (1) Respiratory failure Code(s): J96.90 - Respiratory failure, unspecified, unspecified whether with hypoxia or hypercapnia Status: Acute (2) Pneumonia Code(s): J18.9 - Pneumonia, unspecified organism Status: Acute (3) Status post trachelectomy Code(s): Z90.710 - Acquired absence of both cervix and uterus Status: Acute (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 Cont T collar at 28 % FIO2 . 2. Cont nebs with albuterol qid. PRN 3. PM valve daytime up to 12 hrs. 4. Cont Levsin .125 mg qid prn. 5. Tube feeds at 60 CC. 6. Up as tolerated.
[2018-06-20] MEDS: Levothyroxine 150 MCG Tablet J-TUBE SCH (05:55)
[2018-06-20] MEDS: Hyoscyamine Liq Drops 0.125 MG/ML 15 ML Bottle SL SCH ×4 (05:56→22:02)
[2018-06-20 07:00] LABS: Hematocrit 22.1 % (35.0-46.0); Hemoglobin 7.5 gm/dL (11.6-15.3); Mean Corpuscular HGB Conc 33.8 % (32.0-36.0); Mean Corpuscular Hemoglobin 29.9 pg (27.0-34.0); Mean Corpuscular Volume 88.5 fL (80.0-100.0); Mean Platelet Volume 10.1 fL (7.0-11.0); Platelet Count 71 th/mm3 (150-450); Red Cell Distribution Width 13.7 % (11.6-17.2); White Blood Count 3.3 th/mm3 (4.0-11.0)
[2018-06-20 07:32] LABS: Calcium 7.9 mg/dL (8.5-10.1); Carbon Dioxide 28.8 meq/L (21.0-32.0); Potassium 5.5 meq/L (3.5-5.1)
--- NOTE | 2018-06-20 12:40 | P.PN ---
Subjective Interval history: Follow-up visit for anemia, UTI and chronic trach. Patient seen and examined resting in bed comfortably in no acute distress. She denies any cough, shortness of breath, vomiting, fevers, chills, headache or dizziness. She does endorse some nausea but no vomiting. Nurse does not report any acute events overnight or this morning. Physical Exam Vital signs: Vital Signs 06/19/18 16:00 06/19/18 19:54 06/19/18 20:00 Temperature 98.1 F 97.7 F Pulse Rate 71 64 Respiratory Rate 18 18 Blood Pressure 101/53 L 115/48 L Pulse Oximetry 95 98 99 06/20/18 11:44 Temperature Pulse Rate 59 L Respiratory Rate 18 Blood Pressure Pulse Oximetry 100 Intake & Output 06/19/18 06/20/18 06/20/18 18:59 06:59 18:59 Intake Total 1195 / 1195 1458 / 1458 Output Total 800 / 800 2200 / 2200 Balance 395 / 395 -742 / -742 Weight 52.3 kg Intake: IV 150 / 150 Levaquin 750 mg Premix Inj 150 150 / 150 ML @ 100 mls/hr IV.SIG Q48H [facility] Rx#:[id number] Oral 20 / 20 20 / 20 Tube Feeding 550 / 550 668 / 668 Tube Irrigant 150 / 150 120 / 120 Water Bolus Amount 475 / 475 500 / 500 Other 0 / 0 Output: Urine 0 / 0 Stool 0 / 0 Urine/Stool Mix 0 / 0 Emesis 0 / 0 0 / 0 Urine Amount (Catheter) 700 / 700 1650 / 1650 Indwelling Urethral Catheter 700 / 700 1650 / 1650 Gastric Drainage 100 / 100 550 / 550 Gastrojejunostomy Tube 100 / 100 550 / 550 Jejunostomy Tube 0 / 0 Other: Other Intake Source Saline Solution # Voids 0 # Incontinent Voids 0 # Urine Diapers 0 Date of Last Bowel Movement 06/19/18 06/19/18 # Bowel Movements 1 # Incontinent Bowel Movements 1 1 Narrative: GENERAL: Thin, well developed adult female in no obvious distress. SKIN: Warm and dry. Pale. HEAD: Atraumatic. Normocephalic. CARDIOVASCULAR: Regular rate and rhythm. No murmur. RESPIRATORY: No accessory muscle use. Breath sounds equal bilaterally. Trach in place. GASTROINTESTINAL: Abdomen soft, non-tender, non-distended. Normoactive bowel sounds. MUSCULOSKELETAL: Extremities without clubbing, cyanosis, or edema. No obvious deformities. NEUROLOGICAL: Awake and alert. Motor grossly within normal limits. - Urinary Catheter Management Indwelling Urethral Catheter Cath placed during this visit: yes Reason for continuing: Acute urinary retention Insertion date: 05/25/18 Insertion time: 14:00 Results - Labs CBC & Chem 7: 06/20/18 06:00 06/20/18 06:00 Laboratory Results - last 24 hr 06/20/18 06/20/18 06:00 06:00 WBC 3.3 L RBC 2.50 L Hgb 7.5 L Hct 22.1 L MCV 88.5 MCH 29.9 MCHC 33.8 RDW 13.7 Plt Count 71 L MPV 10.1 Sodium 134 L Potassium 5.5 H Chloride 97 L Carbon Dioxide 28.8 Anion Gap 8 BUN 47 H Creatinine 1.20 H Estimated GFR 44 L Random Glucose 106 Calcium 7.9 L Assessment and Plan - Assessment (1) Pneumonia Code(s): J18.9 - Pneumonia, unspecified organism Status: Acute (2) GERD (gastroesophageal reflux disease) Code(s): K21.9 - Gastro-esophageal reflux disease without esophagitis Status: Chronic (3) DVT (deep venous thrombosis) Code(s): I82.409 - Acute embolism and thrombosis of unspecified deep veins of unspecified lower extremity Status: Acute (4) Hypothyroidism Code(s): E03.9 - Hypothyroidism, unspecified Status: Chronic (5) Laryngeal squamous cell carcinoma Code(s): C32.9 - Malignant neoplasm of larynx, unspecified Status: Chronic (6) Protein-calorie malnutrition, severe Code(s): E43 - Unspecified severe protein-calorie malnutrition Status: Chronic - Plan This is a 73-year-old female with 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 onset of hypoxemic respiratory failure. The rapid response was called and the patient was transferred to ICU where she was placed on 60% oxygenation via trach collar. [facility] reconsulted 05/23 due to hypotension. Currently managed for recurrent respiratory infections with MDRO managed by ID. CT chest does demonstrate a moderate left pleural effusion with left lower lobe atelectasis s/p thoracocentesis. Patient was again sent over to the ICU on 05/29 for acute pulmonary edema with further fever spikes. Patient underwent diuresis and was made a no code, was eventually stabilized and transition back to hospitalist care. Acute: Pancytopenia d/t myelodysplastic syndrome Per Heme/Onc: pancytopenia is due to MDS. She is not a candidate for chemo. Recommendation for pancytopenia is transfusion of PRBC (if Hg <7) and plat(if plat <15) support. Hx of DVT - anticoagulation recommended with platelet count consistently greater than 75,000; otherwise hold. -H&H 7.5/22.1 with platelets 71, asymptomatic, continue to monitor. Acute kidney injury with CKD -Creatinine stable, continue to monitor intermittently -avoid nephrotoxins Intermittent hypotension -Monitoring and keep map above 60 Hyperkalemia, acute -Treat with albuterol 10 mg nebulizer x1 -Recheck BMP tomorrow MDRO PSAE persistent colonization New PNA, MDRO PSAE, Steno malt 05/29 History of squamous cell carcinoma of the larynx now status post tracheostomy due to recurrent aspiration Spiculated right upper lobe pulmonary nodule, multiple R pulmonary nodules - ID following, Dr. Canchola, appreciate assistance with mgmt, Bld Cx from negative, Urine Cx from 05/29, negative, Sputum Cx on 05/29+ ---Pseudomonas MDR, sensitive to only tobramycin. Currently on Meropenem, and levaquin. - UTI, MDRO PDSAE: resolvd with tx with Avycaz Chronic or resolved: Multiple pulmonary nodules- -Pulmonary also following. -Dr. Pineda has discussed risk/ benefits of biopsy with patient and her son on 05/05 and at that time they opted to defer biopsy. -Moderate pleural effusion s/p thora on 05/23, Cultures neg Depression/anxiety -Continue Lexapro and Wellbutrin, Continue Klonopin through the G-tube every 8 hours, Temazepam as needed for insomnia Gastroesophageal reflux disease -Continue PPI and lactobacillus through the G-tube to gravity, discussed with nurse, gauze underneath to prevent skin maceration. Diarrhea -Likely secondary to antibiotics, improving. C. difficile studies were negative on 05/25, Continue Lomotil. Chronic DVT of the right lower extremity -Holding Lovenox due to thrombocytopenia. Per heme oncology resume Lovenox if platelets are consistently above 75,000. R 1st digit of foot with increased erythema s/p trimming of ingrow toenail Podiatry reccs from 06/01: Recommend triple antibiotic with Band-Aid to right hallux medial border DVT PPX: Holding Lovenox due to thrombocytopenia per HemeOnc, SCD's Discussed Condition With: Patient and RN (4) Hypothyroidism Qualifiers: Hypothyroidism type: unspecified Qualified Code(s): E03.9 - Hypothyroidism, unspecified
[2018-06-20] MEDS: Loperamide Liq 2 MG/10 ML UDC J-TUBE SCH ×3 (13:08→20:21)
[2018-06-20] MEDS: Heparin Central Flush 100 UNIT/ML 5 ML Vial IV.FLUSH SCH (13:08)
[2018-06-20] MEDS: Lactobacillus Acidophilus/L. Spores Tablet J-TUBE SCH ×2 (13:08→18:09)
[2018-06-20] MEDS: Nystatin/Diphenhydramine/Lidocaine Mouthwash (Adult) 120 ML Botttle SWISH-SWAL SCH ×3 (13:09→20:21)
[2018-06-20] MEDS: buPROPion 75 MG Tablet J-TUBE SCH ×2 (13:09→20:21)
[2018-06-20] MEDS: Ascorbic Acid 500 MG Tablet J-TUBE SCH ×2 (13:09→20:21)
--- NOTE | 2018-06-20 19:39 | P.PN ---
Subjective Interval history: Alert and has PM valve on and seems comfortable. Trach site is clean. was up in a chair Physical Exam Vital signs: Vital Signs 06/19/18 19:54 06/19/18 20:00 06/20/18 11:44 Temperature 97.7 F Pulse Rate 64 59 L Respiratory Rate 18 18 Blood Pressure 115/48 L Pulse Oximetry 98 99 100 06/20/18 12:50 Temperature 98.7 F Pulse Rate 78 Respiratory Rate 18 Blood Pressure 101/47 L Pulse Oximetry 99 Intake & Output 06/20/18 06/20/18 06/21/18 06:59 18:59 06:59 Intake Total 1458 / 1458 1370 / 1370 Output Total 2200 / 2200 1650 / 1650 Balance -742 / -742 -280 / -280 Weight 52.3 kg Intake: IV 150 / 150 Levaquin 750 mg Premix Inj 150 150 / 150 ML @ 100 mls/hr IV.SIG Q48H [facility] Rx#:[id number] Oral 20 / 20 75 / 75 Tube Feeding 668 / 668 675 / 675 Tube Irrigant 120 / 120 120 / 120 Water Bolus Amount 500 / 500 500 / 500 Other 0 / 0 Output: Urine 0 / 0 Stool 0 / 0 Urine/Stool Mix 0 / 0 Emesis 0 / 0 0 / 0 Urine Amount (Catheter) 1650 / 1650 1200 / 1200 Indwelling Urethral Catheter 1650 / 1650 1200 / 1200 Gastric Drainage 550 / 550 450 / 450 Gastrojejunostomy Tube 550 / 550 450 / 450 Jejunostomy Tube 0 / 0 Other: Other Intake Source Saline Solution # Voids 0 # Incontinent Voids 0 # Urine Diapers 0 Date of Last Bowel Movement 06/19/18 06/20/18 # Bowel Movements 1 # Incontinent Bowel Movements 1 1 Narrative: GENERAL: Thin, well developed adult female in no obvious distress. SKIN: Warm and dry. Pale. HEAD: Atraumatic. Normocephalic. CARDIOVASCULAR: Regular rate and rhythm. No murmur. RESPIRATORY: No accessory muscle use.Occ Wheeze . Breath sounds equal bilaterally. Trach in place. GASTROINTESTINAL: Abdomen soft, non-tender, non-distended. Normoactive bowel sounds. MUSCULOSKELETAL: Extremities without clubbing, cyanosis, or edema. No obvious deformities. NEUROLOGICAL: Awake and alert. Motor grossly within normal limits. - Urinary Catheter Management Indwelling Urethral Catheter Cath placed during this visit: yes Reason for continuing: Acute urinary retention Insertion date: 05/25/18 Insertion time: 14:00 Results - Labs CBC & Chem 7: 06/20/18 06:00 06/20/18 06:00 Laboratory Results - last 24 hr 06/20/18 06/20/18 06:00 06:00 WBC 3.3 L RBC 2.50 L Hgb 7.5 L Hct 22.1 L MCV 88.5 MCH 29.9 MCHC 33.8 RDW 13.7 Plt Count 71 L MPV 10.1 Sodium 134 L Potassium 5.5 H Chloride 97 L Carbon Dioxide 28.8 Anion Gap 8 BUN 47 H Creatinine 1.20 H Estimated GFR 44 L Random Glucose 106 Calcium 7.9 L Assessment and Plan - Assessment (1) Respiratory failure Code(s): J96.90 - Respiratory failure, unspecified, unspecified whether with hypoxia or hypercapnia Status: Acute (2) Pneumonia Code(s): J18.9 - Pneumonia, unspecified organism Status: Acute (3) Status post trachelectomy Code(s): Z90.710 - Acquired absence of both cervix and uterus Status: Acute (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 Cont T collar at 28 % FIO2 . 2. Cont nebs with albuterol qid. PRN 3. PM valve daytime up to 12 hrs. 4. Cont Levsin .125 mg qid prn. 5. Tube feeds at 60 CC. 6. CBC,BMP on Saturday
[2018-06-21] MEDS: Hyoscyamine Liq Drops 0.125 MG/ML 15 ML Bottle SL SCH ×4 (04:23→21:47)
[2018-06-21 05:56] LABS: Calcium 8.3 mg/dL (8.5-10.1); Carbon Dioxide 30.1 meq/L (21.0-32.0); Potassium 5.1 meq/L (3.5-5.1)
[2018-06-21] MEDS: Levothyroxine 150 MCG Tablet J-TUBE SCH (06:14)
[2018-06-21] MEDS: buPROPion 75 MG Tablet J-TUBE SCH ×2 (09:08→21:43)
[2018-06-21] MEDS: Heparin Central Flush 100 UNIT/ML 5 ML Vial IV.FLUSH SCH (09:08)
[2018-06-21] MEDS: Loperamide Liq 2 MG/10 ML UDC J-TUBE SCH ×4 (09:08→21:42)
[2018-06-21] MEDS: Ascorbic Acid 500 MG Tablet J-TUBE SCH ×2 (09:08→21:42)
[2018-06-21] MEDS: Lactobacillus Acidophilus/L. Spores Tablet J-TUBE SCH ×3 (09:08→17:42)
[2018-06-21] MEDS: Nystatin/Diphenhydramine/Lidocaine Mouthwash (Adult) 120 ML Botttle SWISH-SWAL SCH ×4 (09:10→21:42)
--- NOTE | 2018-06-21 09:57 | P.PN ---
Subjective Interval history: Follow-up visit for hyperkalemia. Patient seen and examined resting in bed in no acute distress. Physical Exam Vital signs: Vital Signs 06/20/18 11:44 06/20/18 12:50 06/20/18 20:00 Temperature 98.7 F 96.1 F L Pulse Rate 59 L 78 70 Respiratory Rate 18 18 16 Blood Pressure 101/47 L 87/49 L Pulse Oximetry 100 99 97 06/20/18 21:00 06/21/18 08:36 Temperature Pulse Rate 68 Respiratory Rate 16 Blood Pressure 93/61 L 98/58 L Pulse Oximetry 95 Intake & Output 06/20/18 06/21/18 06/21/18 18:59 06:59 18:59 Intake Total 1370 / 1370 1176 / 1176 Output Total 1650 / 1650 750 / 750 Balance -280 / -280 426 / 426 Weight 53.5 kg Intake: Oral 75 / 75 0 / 0 Tube Feeding 675 / 675 556 / 556 Tube Irrigant 120 / 120 120 / 120 Water Bolus Amount 500 / 500 500 / 500 Other 0 / 0 Output: Urine 0 / 0 750 / 750 Stool 0 / 0 Urine/Stool Mix 0 / 0 Emesis 0 / 0 0 / 0 Urine Amount (Catheter) 1200 / 1200 Indwelling Urethral Catheter 1200 / 1200 Gastric Drainage 450 / 450 Gastrojejunostomy Tube 450 / 450 Jejunostomy Tube 0 / 0 Other: Other Intake Source Saline Solution # Voids 0 # Incontinent Voids 0 # Urine Diapers 0 Date of Last Bowel Movement 06/20/18 06/21/18 06/20/18 # Bowel Movements 1 # Incontinent Bowel Movements 1 1 Narrative: GENERAL: Thin, well developed adult female in no obvious distress. SKIN: Warm and dry. Pale. HEAD: Atraumatic. Normocephalic. CARDIOVASCULAR: Regular rate and rhythm. No murmur. RESPIRATORY: No accessory muscle use. Breath sounds equal bilaterally. Trach in place. GASTROINTESTINAL: Abdomen soft, non-tender, non-distended. Normoactive bowel sounds. MUSCULOSKELETAL: Extremities without clubbing, cyanosis, or edema. No obvious deformities. NEUROLOGICAL: Awake and alert. Motor grossly within normal limits. - Urinary Catheter Management Indwelling Urethral Catheter Cath placed during this visit: yes Reason for continuing: Chronic Urinary Retention Insertion date: 05/25/18 Insertion time: 14:00 Results - Labs CBC & Chem 7: 06/20/18 06:00 06/21/18 05:00 Laboratory Results - last 24 hr 06/21/18 05:00 Sodium 133 L Potassium 5.1 Chloride 95 L Carbon Dioxide 30.1 Anion Gap 8 BUN 52 H Creatinine 1.34 H Estimated GFR 39 L Random Glucose 115 H Calcium 8.3 L Assessment and Plan - Assessment (1) Pneumonia Code(s): J18.9 - Pneumonia, unspecified organism Status: Acute (2) GERD (gastroesophageal reflux disease) Code(s): K21.9 - Gastro-esophageal reflux disease without esophagitis Status: Chronic (3) DVT (deep venous thrombosis) Code(s): I82.409 - Acute embolism and thrombosis of unspecified deep veins of unspecified lower extremity Status: Acute (4) Hypothyroidism Code(s): E03.9 - Hypothyroidism, unspecified Status: Chronic (5) Laryngeal squamous cell carcinoma Code(s): C32.9 - Malignant neoplasm of larynx, unspecified Status: Chronic (6) Protein-calorie malnutrition, severe Code(s): E43 - Unspecified severe protein-calorie malnutrition Status: Chronic - Plan This is a 73-year-old female with 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 The rapid response was called and the patient was transferred to ICU where she was placed on 60% oxygenation via trach collar. [facility] reconsulted 05/23 due to hypotension. Currently managed for recurrent respiratory infections with MDRO managed by ID. CT chest does demonstrate a moderate left pleural effusion with left lower lobe atelectasis s/p thoracocentesis. Patient was again sent over to the ICU on 05/29 for acute pulmonary edema with further fever spikes. Patient underwent diuresis and was made a no code, was eventually stabilized and transition back to hospitalist care. Acute: Pancytopenia d/t myelodysplastic syndrome Per Heme/Onc: pancytopenia is due to MDS. She is not a candidate for chemo. Recommendation for pancytopenia is transfusion of PRBC (if Hg <7) and plat(if plat <15) support. Hx of DVT - anticoagulation recommended with platelet count consistently greater than 75,000; otherwise hold. -H&H 7.5/22.1 with platelets 71, asymptomatic, continue to monitor. Acute kidney injury with CKD -Creatinine stable, continue to monitor intermittently -avoid nephrotoxins Intermittent hypotension -Monitoring and keep map above 60 Hyperkalemia, acute -Treat with albuterol 10 mg nebulizer x1 -Recheck potassium level this morning 5.1 MDRO PSAE persistent colonization New PNA, MDRO PSAE, Steno malt 05/29 History of squamous cell carcinoma of the larynx now status post tracheostomy due to recurrent aspiration Spiculated right upper lobe pulmonary nodule, multiple R pulmonary nodules - ID following, Dr. Canchola, appreciate assistance with mgmt, Bld Cx from negative, Urine Cx from 05/29, negative, Sputum Cx on 05/29+ ---Pseudomonas MDR, sensitive to only tobramycin. Currently on Meropenem, and levaquin. - UTI, MDRO PDSAE: resolvd with tx with Avycaz Chronic or resolved: Multiple pulmonary nodules- -Pulmonary also following. -Dr. Pineda has discussed risk/ benefits of biopsy with patient and her son on 05/05 and at that time they opted to defer biopsy. -Moderate pleural effusion s/p thora on 05/23, Cultures neg Depression/anxiety -Continue Lexapro and Wellbutrin, Continue Klonopin through the G-tube every 8 hours, Temazepam as needed for insomnia Gastroesophageal reflux disease -Continue PPI and lactobacillus through the G-tube to gravity, discussed with nurse, gauze underneath to prevent skin maceration. Diarrhea -Likely secondary to antibiotics, improving. C. difficile studies were negative on 05/25, Continue Lomotil. Chronic DVT of the right lower extremity -Holding Lovenox due to thrombocytopenia. Per heme oncology resume Lovenox if platelets are consistently above 75,000. R 1st digit of foot with increased erythema s/p trimming of ingrow toenail Podiatry reccs from 06/01: Recommend triple antibiotic with Band-Aid to right hallux medial border DVT PPX: Holding Lovenox due to thrombocytopenia per HemeOnc, SCD's Discussed Condition With: Patient and RN (4) Hypothyroidism Qualifiers: Hypothyroidism type: unspecified Qualified Code(s): E03.9 - Hypothyroidism, unspecified
[2018-06-21] MEDS: Morphine Sulfate Oral Liq 10 MG/0.5 ML Syringe SL PRN (12:33)
[2018-06-22] MEDS: Hyoscyamine Liq Drops 0.125 MG/ML 15 ML Bottle SL SCH ×4 (04:54→21:31)
[2018-06-22] MEDS: Levothyroxine 150 MCG Tablet J-TUBE SCH (05:11)
[2018-06-22] MEDS: Morphine Sulfate Oral Liq 10 MG/0.5 ML Syringe SL PRN ×2 (05:21→12:28)
[2018-06-22] MEDS: buPROPion 75 MG Tablet J-TUBE SCH ×2 (08:46→21:28)
[2018-06-22] MEDS: Loperamide Liq 2 MG/10 ML UDC J-TUBE SCH ×4 (08:46→21:30)
[2018-06-22] MEDS: Heparin Central Flush 100 UNIT/ML 5 ML Vial IV.FLUSH SCH (08:47)
[2018-06-22] MEDS: Ascorbic Acid 500 MG Tablet J-TUBE SCH ×2 (08:47→21:28)
[2018-06-22] MEDS: Lactobacillus Acidophilus/L. Spores Tablet J-TUBE SCH ×3 (08:48→17:30)
[2018-06-22] MEDS: Nystatin/Diphenhydramine/Lidocaine Mouthwash (Adult) 120 ML Botttle SWISH-SWAL SCH ×4 (08:49→21:30)
--- NOTE | 2018-06-22 13:30 | P.PN ---
Subjective Interval history: Patient seen and examined resting in bed in no acute distress. Denies any fevers , chills, N/V/D, cough or SOB, no dizziness or lightheadedness. No acute events reported by RN. Physical Exam Vital signs: Vital Signs 06/21/18 20:00 06/21/18 21:35 06/22/18 07:55 Temperature 99.0 F 97.8 F Pulse Rate 95 H 74 Respiratory Rate 18 18 Blood Pressure 89/50 L 85/41 L Pulse Oximetry 98 97 100 06/22/18 12:15 Temperature Pulse Rate 70 Respiratory Rate Blood Pressure 116/45 L Pulse Oximetry Intake & Output 06/21/18 06/22/18 06/22/18 19:59 06:59 18:59 Intake Total Output Total Balance Weight Intake: IV Levaquin 750 mg Premix Inj 150 ML @ 100 mls/hr IV.SIG Q48H ANN Rx#:[id number] Oral Tube Feeding Tube Irrigant Water Bolus Amount Other Output: Urine Stool Urine/Stool Mix Emesis Urine Amount (Catheter) Indwelling Urethral Catheter Gastric Drainage Gastrojejunostomy Tube Jejunostomy Tube Other: Other Intake Source # Voids # Incontinent Voids # Urine Diapers Date of Last Bowel Movement 06/21/18 # Bowel Movements # Incontinent Bowel Movements # Emeses Narrative: GENERAL: Thin, well developed adult female in no obvious distress. SKIN: Warm and dry. Pale. HEAD: Atraumatic. Normocephalic. CARDIOVASCULAR: Regular rate and rhythm. No murmur. RESPIRATORY: No accessory muscle use. Breath sounds equal bilaterally. Trach in place. GASTROINTESTINAL: Abdomen soft, non-tender, non-distended. Normoactive bowel sounds. MUSCULOSKELETAL: Extremities without clubbing, cyanosis, or edema. No obvious deformities. NEUROLOGICAL: Awake and alert. Motor grossly within normal limits. - Urinary Catheter Management Indwelling Urethral Catheter Cath placed during this visit: yes Reason for continuing: Acute urinary retention Insertion date: 05/25/18 Insertion time: 14:00 Results - Labs CBC & Chem 7: 06/20/18 06:00 06/21/18 05:00 Assessment and Plan - Assessment (1) Pneumonia Code(s): J18.9 - Pneumonia, unspecified organism Status: Acute (2) GERD (gastroesophageal reflux disease) Code(s): K21.9 - Gastro-esophageal reflux disease without esophagitis Status: Chronic (3) DVT (deep venous thrombosis) Code(s): I82.409 - Acute embolism and thrombosis of unspecified deep veins of unspecified lower extremity Status: Acute (4) Hypothyroidism Code(s): E03.9 - Hypothyroidism, unspecified Status: Chronic (5) Laryngeal squamous cell carcinoma Code(s): C32.9 - Malignant neoplasm of larynx, unspecified Status: Chronic (6) Protein-calorie malnutrition, severe Code(s): E43 - Unspecified severe protein-calorie malnutrition Status: Chronic - Plan This is a 73-year-old female with 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 The rapid response was called and the patient was transferred to ICU where she was placed on 60% oxygenation via trach collar. [facility] reconsulted 05/23 due to hypotension. Currently managed for recurrent respiratory infections with MDRO managed by ID. CT chest does demonstrate a moderate left pleural effusion with left lower lobe atelectasis s/p thoracocentesis. Patient was again sent over to the ICU on 05/29 for acute pulmonary edema with further fever spikes. Patient underwent diuresis and was made a no code, was eventually stabilized and transition back to hospitalist care. Acute: Pancytopenia d/t myelodysplastic syndrome Per Heme/Onc: pancytopenia is due to MDS. She is not a candidate for chemo. Recommendation for pancytopenia is transfusion of PRBC (if Hg <7) and plat(if plat <15) support. Hx of DVT - anticoagulation recommended with platelet count consistently greater than 75,000; otherwise hold. -H&H 7.5/22.1 with platelets 71, asymptomatic, continue to monitor. Acute kidney injury with CKD -Creatinine stable, continue to monitor intermittently -avoid nephrotoxins Intermittent hypotension -Monitoring and keep map above 60 Hyperkalemia, acute -Treat with albuterol 10 mg nebulizer x1 -Recheck potassium level 5.1 MDRO PSAE persistent colonization New PNA, MDRO PSAE, Steno malt 05/29 History of squamous cell carcinoma of the larynx now status post tracheostomy due to recurrent aspiration Spiculated right upper lobe pulmonary nodule, multiple R pulmonary nodules - ID following, Dr. Canchola, appreciate assistance with mgmt, Bld Cx from negative, Urine Cx from 05/29, negative, Sputum Cx on 05/29+ ---Pseudomonas MDR, sensitive to only tobramycin. Currently on Meropenem, and levaquin. - UTI, MDRO PDSAE: resolvd with tx with Avycaz Chronic or resolved: Multiple pulmonary nodules- -Pulmonary also following. -Dr. Pineda has discussed risk/ benefits of biopsy with patient and her son on 05/05 and at that time they opted to defer biopsy. -Moderate pleural effusion s/p thora on 05/23, Cultures neg Depression/anxiety -Continue Lexapro and Wellbutrin, Continue Klonopin through the G-tube every 8 hours, Temazepam as needed for insomnia Gastroesophageal reflux disease -Continue PPI and lactobacillus through the G-tube to gravity, discussed with nurse, gauze underneath to prevent skin maceration. Diarrhea -Likely secondary to antibiotics, improving. C. difficile studies were negative on 05/25, Continue Lomotil. Chronic DVT of the right lower extremity -Holding Lovenox due to thrombocytopenia. Per heme oncology resume Lovenox if platelets are consistently above 75,000. R 1st digit of foot with increased erythema s/p trimming of ingrow toenail Podiatry reccs from 06/01: Recommend triple antibiotic with Band-Aid to right hallux medial border DVT PPX: Holding Lovenox due to thrombocytopenia per HemeOnc, SCD's Discussed Condition With: Patient and RN (4) Hypothyroidism Qualifiers: Hypothyroidism type: unspecified Qualified Code(s): E03.9 - Hypothyroidism, unspecified
[2018-06-23] MEDS: Hyoscyamine Liq Drops 0.125 MG/ML 15 ML Bottle SL SCH ×4 (04:35→21:09)
[2018-06-23] MEDS: Levothyroxine 150 MCG Tablet J-TUBE SCH (06:20)
[2018-06-23 07:48] LABS: Mean Corpuscular HGB Conc 34.7 % (32.0-36.0); Mean Corpuscular Hemoglobin 30.6 pg (27.0-34.0); Mean Corpuscular Volume 88.4 fL (80.0-100.0); Platelet Count 76 th/mm3 (150-450); Red Blood Count 2.29 mil/mm3 (4.00-5.30); Red Cell Distribution Width 13.9 % (11.6-17.2); White Blood Count 5.8 th/mm3 (4.0-11.0)
[2018-06-23 07:53] LABS: Hematocrit 20.2 % (35.0-46.0)
[2018-06-23] MEDS: Loperamide Liq 2 MG/10 ML UDC J-TUBE SCH ×4 (08:09→21:29)
[2018-06-23] MEDS: Nystatin/Diphenhydramine/Lidocaine Mouthwash (Adult) 120 ML Botttle SWISH-SWAL SCH ×4 (08:10→21:08)
[2018-06-23] MEDS: buPROPion 75 MG Tablet J-TUBE SCH ×2 (08:10→21:09)
[2018-06-23] MEDS: Ascorbic Acid 500 MG Tablet J-TUBE SCH ×2 (08:10→21:09)
[2018-06-23] MEDS: Lactobacillus Acidophilus/L. Spores Tablet J-TUBE SCH ×3 (08:11→17:33)
[2018-06-23] MEDS: Heparin Central Flush 100 UNIT/ML 5 ML Vial IV.FLUSH SCH (08:11)
[2018-06-23 08:21] LABS: Calcium 7.9 mg/dL (8.5-10.1); Carbon Dioxide 30.7 meq/L (21.0-32.0); Potassium 4.7 meq/L (3.5-5.1)
[2018-06-23 08:45] LABS: Blast Cells 5 % (0-0); Eosinophils 5 % (0-4); Lymphocytes 17 % (9-44); Monocytes 28 % (0-8); Myelocytes 5 % (0-0)
[2018-06-23] MEDS ORDERED: Sodium Chlor 0.9% Inj 250 ML IV.SIG SCH (09:00)
--- NOTE | 2018-06-23 11:13 | P.PN ---
Subjective Interval history: Follow-up visit for anemia. Patient seen and examined resting in bed with nurse at bedside. She denies any acute complaint or concern, denies headache, dizziness, lightheadedness, SOB or chest pain. Patient noted to have low BP this morning as well as low Hct by nurse. No other acute events. Physical Exam Vital signs: Vital Signs 06/22/18 12:15 06/22/18 17:45 06/22/18 20:00 Temperature 97.8 F Pulse Rate 70 73 Respiratory Rate 16 Blood Pressure 116/45 L 83/41 L Pulse Oximetry 96 92 L 06/22/18 21:59 06/22/18 22:39 06/23/18 07:44 Temperature Pulse Rate Respiratory Rate 16 16 Blood Pressure Pulse Oximetry 95 06/23/18 08:00 06/23/18 10:38 Temperature 98.6 F 98.8 F Pulse Rate 68 72 Respiratory Rate 16 18 Blood Pressure 85/38 L 85/43 L Pulse Oximetry 97 Intake & Output 06/22/18 06/23/18 06/23/18 18:59 06:59 18:59 Intake Total 1100 / 1100 0 / 0 Output Total 850 / 850 1350 / 1350 Balance 250 / 250 -1350 / -1350 0 / 0 Weight 50.7 kg Intake: Tube Feeding 600 / 600 Water Bolus Amount 500 / 500 Intake (Blood Product) Amt 0 / 0 Rbc As-3 Leukoreduced Unit 0 / 0 [id number] Output: Stool 150 / 150 Urine Amount (Catheter) 850 / 850 650 / 650 Indwelling Urethral Catheter 850 / 850 650 / 650 Gastric Drainage 550 / 550 Gastrojejunostomy Tube 550 / 550 Other: Date of Last Bowel Movement 06/21/18 06/22/18 Narrative: GENERAL: Thin, well developed adult female in no obvious distress. SKIN: Warm and dry. Pale. HEAD: Atraumatic. Normocephalic. CARDIOVASCULAR: Regular rate and rhythm. No murmur. RESPIRATORY: No accessory muscle use. Breath sounds equal bilaterally. Trach in place. GASTROINTESTINAL: Abdomen soft, non-tender, non-distended. Normoactive bowel sounds. MUSCULOSKELETAL: Extremities without clubbing, cyanosis, or edema. No obvious deformities. NEUROLOGICAL: Awake and alert. Motor grossly within normal limits. - Urinary Catheter Management Indwelling Urethral Catheter Cath placed during this visit: yes Reason for continuing: Acute urinary retention Insertion date: 05/25/18 Insertion time: 14:00 Results - Labs CBC & Chem 7: 06/23/18 06:26 06/23/18 06:26 Laboratory Results - last 24 hr 05/25/18 06/13/18 06/23/18 09:55 10:44 06:26 WBC 5.8 RBC 2.29 L Hgb 7.0 L Hct 20.2 L* MCV 88.4 MCH 30.6 MCHC 34.7 RDW 13.9 Plt Count 76 L MPV 11.0 Prelim Diff (Auto) Manual diff required WBC Differential Manual diff final Seg Neuts % (Manual) 36 Band Neuts % (Manual) 4 Lymphocytes % (Manual) 17 Monocytes % (Manual) 28 H Eosinophils % (Manual) 5 H Myelocytes % (Man) 5 H Blast Cells % (Manual) 5 H Abs Neuts (Manual) 2.6 Differential Comment . Platelet Estimate Low L Platelet Morphology Enlarged H Sodium Potassium Chloride Carbon Dioxide Anion Gap BUN Creatinine Estimated GFR Random Glucose Calcium Blood Type Antibody Screen MTS Gel Crossmatch See Detail See Detail 06/23/18 06/23/18 06:26 08:50 WBC RBC Hgb Hct MCV MCH MCHC RDW Plt Count MPV Prelim Diff (Auto) WBC Differential Seg Neuts % (Manual) Band Neuts % (Manual) Lymphocytes % (Manual) Monocytes % (Manual) Eosinophils % (Manual) Myelocytes % (Man) Blast Cells % (Manual) Abs Neuts (Manual) Differential Comment Platelet Estimate Platelet Morphology Sodium 133 L Potassium 4.7 Chloride 93 L Carbon Dioxide 30.7 Anion Gap 9 BUN 67 H Creatinine 1.69 H Estimated GFR 30 L Random Glucose 125 H Calcium 7.9 L Blood Type B Positive Antibody Screen Positive H MTS Gel Crossmatch See Detail Assessment and Plan - Assessment (1) Pneumonia Code(s): J18.9 - Pneumonia, unspecified organism Status: Acute (2) GERD (gastroesophageal reflux disease) Code(s): K21.9 - Gastro-esophageal reflux disease without esophagitis Status: Chronic (3) DVT (deep venous thrombosis) Code(s): I82.409 - Acute embolism and thrombosis of unspecified deep veins of unspecified lower extremity Status: Acute (4) Hypothyroidism Code(s): E03.9 - Hypothyroidism, unspecified Status: Chronic (5) Laryngeal squamous cell carcinoma Code(s): C32.9 - Malignant neoplasm of larynx, unspecified Status: Chronic (6) Protein-calorie malnutrition, severe Code(s): E43 - Unspecified severe protein-calorie malnutrition Status: Chronic - Plan This is a 73-year-old female with 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 The rapid response was called and the patient was transferred to ICU where she was placed on 60% oxygenation via trach collar. [facility] reconsulted 05/23 due to hypotension. Currently managed for recurrent respiratory infections with MDRO managed by ID. CT chest does demonstrate a moderate left pleural effusion with left lower lobe atelectasis s/p thoracocentesis. Patient was again sent over to the ICU on 05/29 for acute pulmonary edema with further fever spikes. Patient underwent diuresis and was made a no code, was eventually stabilized and transition back to hospitalist care. Acute: Pancytopenia d/t myelodysplastic syndrome Per Heme/Onc: pancytopenia is due to MDS. She is not a candidate for chemo. Recommendation for pancytopenia is transfusion of PRBC (if Hg <7) and plat(if plat <15) support. Hx of DVT - anticoagulation recommended with platelet count consistently greater than 75,000; otherwise hold. -H&H 7.0/20.2, PLT's 76, transfuse with 1 unit of PRBC's, recheck labs in a.m. Acute kidney injury with CKD -Slight increase in Creatine, possibly due to anemia, recheck labs in a.m. -avoid nephrotoxins Intermittent hypotension - Hypotension, asymptomatic this a.m. will be getting 1 unit of PRBC's today. -Monitoring and keep map above 60 Hyperkalemia, acute -Treat with albuterol 10 mg nebulizer x1 -K level stable MDRO PSAE persistent colonization New PNA, MDRO PSAE, Steno malt 05/29 History of squamous cell carcinoma of the larynx now status post tracheostomy due to recurrent aspiration Spiculated right upper lobe pulmonary nodule, multiple R pulmonary nodules - ID following, Dr. Canchola, appreciate assistance with mgmt, Bld Cx from negative, Urine Cx from 05/29, negative, Sputum Cx on 05/29+ ---Pseudomonas MDR, sensitive to only tobramycin. Currently on - Still on Levaquin, discussed with ID on duration, appreciate ID assistance. Chronic or resolved: Multiple pulmonary nodules- -Pulmonary also following. -Dr. Pineda has discussed risk/ benefits of biopsy with patient and her son on 05/05 and at that time they opted to defer biopsy. -Moderate pleural effusion s/p thora on 05/23, Cultures neg Depression/anxiety -Continue Lexapro and Wellbutrin, Continue Klonopin through the G-tube every 8 hours, Temazepam as needed for insomnia Gastroesophageal reflux disease -Continue PPI and lactobacillus through the G-tube to gravity, discussed with nurse, gauze underneath to prevent skin maceration. Diarrhea -Likely secondary to antibiotics, improving. C. difficile studies were negative on 05/25, Continue Lomotil. UTI, MDRO PDSAE: resolvd with tx with Avycaz Chronic DVT of the right lower extremity -Holding Lovenox due to thrombocytopenia. Per heme oncology resume Lovenox if platelets are consistently above 75,000. R 1st digit of foot with increased erythema s/p trimming of ingrow toenail Podiatry reccs from 06/01: Recommend triple antibiotic with Band-Aid to right hallux medial border DVT PPX: Holding Lovenox due to thrombocytopenia per HemeOnc, SCD's Discussed Condition With: Patient and RN (4) Hypothyroidism Qualifiers: Hypothyroidism type: unspecified Qualified Code(s): E03.9 - Hypothyroidism, unspecified
--- NOTE | 2018-06-23 18:54 | P.PN ---
Subjective Interval history: Alert and on O2 28 % Via trach collar. No fever. Hgb is 7.1. Will get one U packed red cells today Physical Exam Vital signs: Vital Signs 06/22/18 20:00 06/22/18 21:59 06/22/18 22:39 Temperature 97.8 F Pulse Rate 73 Respiratory Rate 16 16 Blood Pressure 83/41 L Pulse Oximetry 92 L 95 06/23/18 07:44 06/23/18 08:00 06/23/18 10:38 Temperature 98.6 F 98.8 F Pulse Rate 68 72 Respiratory Rate 16 16 18 Blood Pressure 85/38 L 85/43 L Pulse Oximetry 97 06/23/18 17:06 Temperature 97.8 F Pulse Rate 65 Respiratory Rate 16 Blood Pressure 99/39 L Pulse Oximetry 97 Intake & Output 06/22/18 06/23/18 06/23/18 18:59 06:59 18:59 Intake Total 1100 / 1100 2750 / 2750 Output Total 850 / 850 1350 / 1350 2750 / 2750 Balance 250 / 250 -1350 / -1350 0 / 0 Weight 50.7 kg Intake: Oral 150 / 150 Tube Feeding 600 / 600 1300 / 1300 Tube Irrigant 0 / 0 Water Bolus Amount 500 / 500 900 / 900 Other 0 / 0 Intake (Blood Product) Amt 0 / 0 Rbc As-3 Leukoreduced Unit 0 / 0 [id number] Rbc As-3 Leukoreduced Unit 0 / 0 [id number] Mass Transfusion Protocol 400 / 400 Output: Urine 1700 / 1700 Stool 150 / 150 250 / 250 Urine/Stool Mix 0 / 0 Emesis 0 / 0 Urine Amount (Catheter) 850 / 850 650 / 650 Indwelling Urethral Catheter 850 / 850 650 / 650 Gastric Drainage 550 / 550 800 / 800 Gastrojejunostomy Tube 550 / 550 800 / 800 Jejunostomy Tube 0 / 0 Other: Other Intake Source Saline Solution # Voids 0 # Incontinent Voids 0 # Urine Diapers 0 Date of Last Bowel Movement 06/21/18 06/22/18 06/23/18 # Bowel Movements 0 # Incontinent Bowel Movements 0 # Emeses 1 Narrative: GENERAL: Thin, elderly adult female in no obvious distress. SKIN: Warm and dry. Pale. HEAD: Atraumatic. Normocephalic. CARDIOVASCULAR: Regular rate and rhythm. No murmur. RESPIRATORY: No accessory muscle use. Breath sounds equal bilaterally. Occ wheeze. Trach in place. GASTROINTESTINAL: Abdomen soft, non-tender, non-distended. Normoactive bowel sounds. MUSCULOSKELETAL: Extremities without clubbing, cyanosis, or edema. No obvious deformities. NEUROLOGICAL: Awake and alert. Motor grossly within normal limits. - Urinary Catheter Management Indwelling Urethral Catheter Cath placed during this visit: yes Reason for continuing: Acute urinary retention Insertion date: 05/25/18 Insertion time: 14:00 Results - Labs CBC & Chem 7: 06/23/18 06:26 06/23/18 06:26 Laboratory Results - last 24 hr 05/25/18 06/13/18 06/23/18 09:55 10:44 06:26 WBC 5.8 RBC 2.29 L Hgb 7.0 L Hct 20.2 L* MCV 88.4 MCH 30.6 MCHC 34.7 RDW 13.9 Plt Count 76 L MPV 11.0 Prelim Diff (Auto) Manual diff required WBC Differential Manual diff final Seg Neuts % (Manual) 36 Band Neuts % (Manual) 4 Lymphocytes % (Manual) 17 Monocytes % (Manual) 28 H Eosinophils % (Manual) 5 H Myelocytes % (Man) 5 H Blast Cells % (Manual) 5 H Abs Neuts (Manual) 2.6 Differential Comment . Platelet Estimate Low L Platelet Morphology Enlarged H Sodium Potassium Chloride Carbon Dioxide Anion Gap BUN Creatinine Estimated GFR Random Glucose Calcium Blood Type Antibody Screen MTS Gel Crossmatch See Detail See Detail 06/23/18 06/23/18 06:26 08:50 WBC RBC Hgb Hct MCV MCH MCHC RDW Plt Count MPV Prelim Diff (Auto) WBC Differential Seg Neuts % (Manual) Band Neuts % (Manual) Lymphocytes % (Manual) Monocytes % (Manual) Eosinophils % (Manual) Myelocytes % (Man) Blast Cells % (Manual) Abs Neuts (Manual) Differential Comment Platelet Estimate Platelet Morphology Sodium 133 L Potassium 4.7 Chloride 93 L Carbon Dioxide 30.7 Anion Gap 9 BUN 67 H Creatinine 1.69 H Estimated GFR 30 L Random Glucose 125 H Calcium 7.9 L Blood Type B Positive Antibody Screen Positive H MTS Gel Crossmatch See Detail Assessment and Plan - Assessment (1) Respiratory failure Code(s): J96.90 - Respiratory failure, unspecified, unspecified whether with hypoxia or hypercapnia Status: Acute (2) Pneumonia Code(s): J18.9 - Pneumonia, unspecified organism Status: Acute (3) Status post trachelectomy Code(s): Z90.710 - Acquired absence of both cervix and uterus Status: Acute (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 Cont T collar at 28 % FIO2 . 2. Cont nebs with albuterol qid. PRN 3. PM valve daytime up to 12 hrs. 4. Cont Levsin .125 mg qid prn. 5. Tube feeds at 60 CC. 6. Transfuse 1 U packed red cells. 7. CBC ,BMP in am
--- NOTE | 2018-06-23 20:01 | P.PNADD ---
Addendum to Inpatient Note Additional information: seen around 1900 full note to follow
--- NOTE | 2018-06-24 00:21 | P.DIET ---
Nutritional Evaluation Type of nutrition evaluation: follow-up Nutrition consult regarding: Tube Feeding Subjective Barriers to Nutrition: Swallowing problem Objective - Diagnosis Respiratory Failure - Objective % IBW: 99 (IBW = 120#) Body Weight Used for Calculations: Actual (54.1 kg) Energy Needs - Lower Range (kCal/kg): 28 Energy Needs - Upper Range (kCal/kg): 32 Lower Limit kCal/kg (kCals): 1,515 Upper Limit kCal/kg (kCals): 1,731 Lower Limit Protein Factor (Grams per Kg): 1.2 Upper Limit Protein Factor (Grams per Kg): 1.5 Lower Protein Needs (Protein): 65 Upper Protein Needs (Protein): 81 Dietitian Reviewed in Medical Record: Curent medications, Intake & Output, Labs , Medical history, Tube feeding Diet Order: TF'ing ONLY Objective Comments: Meds include: Vit C, levsin, lactinex, synthroid, reglan, wellbutrin, lexapro Feeding - Current Tube Feeding Tube Feeding Product: Vital 1.5 Tube Feeding Rate: 50 Current kCals Provided by Tube Feedin,650 Current Protein Provided by Tube Feeding (gPRO): 74 Medications That Affect Tube Feeding Run Time: Synthroid (TF'ing held 1-hour before and 1-hour after administering Synthroid) Total Time Off: 2 hours Current Free H2O Provided (m/l): 840 Assessment Assessment: Wt. slighly decreased, monitor. Pt. with +I+Os and +BMs. Pt tolerating TF'ing w/ Vital 1.5 @ goal rate 55 ml/hr x 22 hours, providing for pt's assessed needs. Free water flushes per MD. Labs reviewed-monitor renal labs closely. Recommendations: 1. TF'ing w/Vital 1.5 @ goal rate 55 ml/hr x 22 hours, provides for pt's assessed needs 2. Free water flushes per MD Dietitian to Monitor: Lab values, Renal labs, Intake & Output, Tube feeding tolerance, Weight change, Medical course
[2018-06-24] MEDS: Hyoscyamine Liq Drops 0.125 MG/ML 15 ML Bottle SL SCH ×4 (03:18→21:58)
[2018-06-24] MEDS: Levothyroxine 150 MCG Tablet J-TUBE SCH (05:28)
--- NOTE | 2018-06-24 07:29 | P.PNID ---
Subjective Remarks: Delayed entry pt was seen yday 06/23 remains on Tpiece not interacting much afebrile Antibiotics: levaquine Past Medical History: lung ca Allergies/Adverse Reactions: Allergies epinephrine Allergy (Severe, Verified 02/21/18 08:40) TACHYCARDIA penicillin G Allergy (Severe, Verified 02/21/18 08:40) Hives peanut Allergy (Intermediate, Verified 02/21/18 08:40) ANAPHYLAXIS legumes Allergy (Unknown, Verified 03/06/18 21:48) Anaphylaxis UNKNOWN soy Allergy (Verified 03/06/18 21:45) Rash UNKNOWN Objective Vital Signs 06/23/18 07:44 06/23/18 08:00 06/23/18 10:38 Temperature 98.6 F 98.8 F Pulse Rate 68 72 Respiratory Rate 16 16 18 Blood Pressure 85/38 L 85/43 L Pulse Oximetry 97 06/23/18 17:06 06/23/18 20:00 06/24/18 01:28 Temperature 97.8 F 97.8 F Pulse Rate 65 65 Respiratory Rate 16 16 Blood Pressure 99/39 L 94/41 L Pulse Oximetry 97 95 97 Intake & Output 06/23/18 06/24/18 06/24/18 18:59 06:59 18:59 Intake Total 2750 / 2750 1040 / 1040 Output Total 2750 / 2750 1450 / 1450 Balance 0 / 0 -410 / -410 Weight 49.5 kg Intake: IV 150 / 150 Levaquin 750 mg Premix Inj 150 150 / 150 ML @ 100 mls/hr IV.SIG Q48H [facility] Rx#:[id number] Oral 150 / 150 Tube Feeding 1300 / 1300 620 / 620 Tube Irrigant 0 / 0 120 / 120 Water Bolus Amount 900 / 900 Other 0 / 0 150 / 150 Intake (Blood Product) Amt 0 / 0 Rbc As-3 Leukoreduced Unit 0 / 0 [id number] Rbc As-3 Leukoreduced Unit 0 / 0 [id number] Mass Transfusion Protocol 400 / 400 Output: Urine 1700 / 1700 900 / 900 Stool 250 / 250 130 / 130 Urine/Stool Mix 0 / 0 Emesis 0 / 0 Gastric Drainage 800 / 800 420 / 420 Gastrojejunostomy Tube 800 / 800 420 / 420 Jejunostomy Tube 0 / 0 0 / 0 Other: Other Intake Source Saline Solution Saline Solution # Voids 0 # Incontinent Voids 0 # Urine Diapers 0 Date of Last Bowel Movement 06/23/18 06/23/18 # Bowel Movements 0 # Incontinent Bowel Movements 0 # Emeses 1 Lab - Hematology Results 06/23/18 06:26 WBC 5.8 RBC 2.29 L Hgb 7.0 L Hct 20.2 L* MCV 88.4 MCH 30.6 MCHC 34.7 RDW 13.9 Plt Count 76 L MPV 11.0 Prelim Diff (Auto) Manual diff required WBC Differential Manual diff final Seg Neuts % (Manual) 36 Band Neuts % (Manual) 4 Lymphocytes % (Manual) 17 Monocytes % (Manual) 28 H Eosinophils % (Manual) 5 H Myelocytes % (Man) 5 H Blast Cells % (Manual) 5 H Abs Neuts (Manual) 2.6 Differential Comment . Platelet Estimate Low L Platelet Morphology Enlarged H Lab - Chemistry Results 06/23/18 06:26 Sodium 133 L Potassium 4.7 Chloride 93 L Carbon Dioxide 30.7 Anion Gap 9 BUN 67 H Creatinine 1.69 H Estimated GFR 30 L Random Glucose 125 H Calcium 7.9 L Imaging: ITS Impressions Abdomen/Bladder Ultrasound 05/06/18 00:00 CONCLUSION: 1. Increased renal echogenicity characteristic of medical renal disease. Small cyst right kidney. Dependent debris in the bladder. Tube Check 05/20/18 00:00 CONCLUSION: 1. Uncomplicated tube injection as above. The gastrojejunostomy tube is in good position. If there is concern for duodenal stricture resulting in a functional obstruction consideration could be made to the administration of barium either orally or through the gastric lumen of the tube to assess for any obstruction. Thin iodinated contrast would be limited in trying to assess this. Upper GI Series 05/21/18 00:00 CONCLUSION: No evidence of gastric outlet or duodenal obstruction. Abdomen/Pelvis CT 05/22/18 00:00 CONCLUSION: 1. Diverticulosis without perceptible diverticulitis or other acute inflammatory changes. 2. The gastrojejunostomy tube appears appropriately positioned. No perceptible associated acute complication. 3. There are scattered tiny nonobstructing stones of both kidneys and a small cyst on the right. 4. Small sliding-type hiatal hernia again seen. Chest CT 05/22/18 16:12 CONCLUSION: 1. Moderate left pleural effusion with atelectasis of the left lower lobe. 2. Mild right base atelectasis, improved compared to prior CT. 3. Right upper lobe pulmonary nodules are stable but the larger one remains concerning for primary bronchogenic carcinoma. Chest Ultrasound 05/23/18 00:00 CONCLUSION: 1. Lastly 360 cc of pleural effusion on the left. This does not appear loculated or complex. Site was marked Thoracentesis Ultrasound 05/23/18 00:00 CONCLUSION: Uncomplicated ultrasound-guided left chest thoracentesis as above. Extremity Arterial Study 05/24/18 00:00 CONCLUSION: 1. Severe reduction of the ABIs bilaterally. Abdomen X-Ray 05/26/18 00:00 CONCLUSION: 1. GJ tube appears to be in appropriate position with distal end of the jejunal feeding tube in the left upper quadrant. 2. Persistent pleural-parenchymal opacity at the left lung base. Chest CTA 05/26/18 00:00 CONCLUSION: 1. No evidence for pulmonary embolism. 2. Bibasilar consolidation. 3. Prominent nodule in the right upper lobe again seen measuring 13 mm concerning for malignancy. 4. Patchy opacities in the lingula and left lower lobe likely infectious. Venous Doppler Study 05/30/18 00:00 CONCLUSION: Significant interval recanalization of prior extensive right leg DVT Left leg remains normal in appearance. Chest X-Ray 06/09/18 00:00 CONCLUSION: 1. There continues to be bilateral interstitial infiltrates which are mildly improved compared to the prior exam. 2. Right-sided PICC line appears to be in good position. Physical Exam: GENERAL: NAD OOB in a c hair thin chronically ill apperaing SKIN: Warm and dry. NO rash HEAD: Atraumatic. Normocephalic. EYES: Pupils equal and round. No scleral icterus. No injection or drainage. ENT: No nasal bleeding or discharge. Mucous membranes pink and moist. NECK: Trach in place, site OK Passimuir valve in place CARDIOVASCULAR: Regular rate and rhythm. + murmur, holosystolic RESPIRATORY: No accessory muscle use. failry clear to auscultation. Breath sounds equal bilaterally. GASTROINTESTINAL: Abdomen soft, not tender in LLQ and mildly distended w/o guarding and rebound PEG in place MUSCULOSKELETAL: Extremities without clubbing, cyanosis, No obvious deformities. : savage in place NEUROLOGICAL: awake PSYCHIATRIC: withdrawn Assessment and Plan - Plan Chronic b/b infiltrates MDRO PSAE persistent colonisation Multiple PNAs during hospitalisation H&N cancer sp trach, PEG Diarrhea, neg for C.diff as of 05/25 Mild PEG infection vs irritation growing mixed andrew which is c/w contaminantion, including VRE Colonised with multiple MDROs, including PSAE, VRE recent PNA, PSAE MDRO and Steno malt - sp complated treatment dc levaquine will follow robin sandoval RN
[2018-06-24] MEDS: Loperamide Liq 2 MG/10 ML UDC J-TUBE SCH ×3 (08:01→21:58)
[2018-06-24] MEDS: Lactobacillus Acidophilus/L. Spores Tablet J-TUBE SCH ×2 (08:03→17:46)
[2018-06-24] MEDS: Heparin Central Flush 100 UNIT/ML 5 ML Vial IV.FLUSH SCH (08:04)
[2018-06-24] MEDS: buPROPion 75 MG Tablet J-TUBE SCH ×2 (08:04→21:57)
[2018-06-24] MEDS: Ascorbic Acid 500 MG Tablet J-TUBE SCH ×2 (08:05→21:57)
[2018-06-24] MEDS: Nystatin/Diphenhydramine/Lidocaine Mouthwash (Adult) 120 ML Botttle SWISH-SWAL SCH ×3 (08:05→21:58)
[2018-06-24 08:49] LABS: Hematocrit 23.7 % (35.0-46.0); Hemoglobin 8.3 gm/dL (11.6-15.3); Mean Corpuscular HGB Conc 35.2 % (32.0-36.0); Mean Corpuscular Hemoglobin 29.5 pg (27.0-34.0); Mean Corpuscular Volume 83.7 fL (80.0-100.0); Mean Platelet Volume 10.6 fL (7.0-11.0); Platelet Count 76 th/mm3 (150-450); Red Blood Count 2.83 mil/mm3 (4.00-5.30); White Blood Count 6.9 th/mm3 (4.0-11.0)
--- NOTE | 2018-06-24 10:35 | P.PNIM ---
Subjective Interval history: Follow-up visit for anemia. Patient seen and examined, lying in bed comfortably in no apparent distress. No reports of any acute events overnight. Spoke to bedside RN, doing well and improved. ID following patient, DC Levaquin. Creatinine trending up. Vital signs stable. Afebrile. Physical Exam Vital signs: Vital Signs 06/23/18 10:38 06/23/18 17:06 06/23/18 20:00 Temperature 98.8 F 97.8 F 97.8 F Pulse Rate 72 65 65 Respiratory Rate 18 16 16 Blood Pressure 85/43 L 99/39 L 94/41 L Pulse Oximetry 97 95 06/24/18 01:28 06/24/18 07:54 06/24/18 07:55 Temperature 98.6 F Pulse Rate 65 Respiratory Rate 16 16 Blood Pressure 105/50 L Pulse Oximetry 97 95 Intake & Output 06/23/18 06/24/18 06/24/18 18:59 06:59 18:59 Intake Total 3000 / 3000 1040 / 1040 Output Total 2750 / 2750 1450 / 1450 Balance 250 / 250 -410 / -410 Weight 49.5 kg Intake: IV 250 / 250 150 / 150 Levaquin 750 mg Premix Inj 150 150 / 150 ML @ 100 mls/hr IV.SIG Q48H [facility] Rx#:[id number] NS Inj 250 ML @ 15 mls/hr IV. 250 / 250 SIG ONCE [facility] Rx#:[id number] Oral 150 / 150 Tube Feeding 1300 / 1300 620 / 620 Tube Irrigant 0 / 0 120 / 120 Water Bolus Amount 900 / 900 Other 0 / 0 150 / 150 Intake (Blood Product) Amt 0 / 0 Rbc As-3 Leukoreduced Unit 0 / 0 [id number] Rbc As-3 Leukoreduced Unit 0 / 0 [id number] Mass Transfusion Protocol 400 / 400 Output: Urine 1700 / 1700 900 / 900 Stool 250 / 250 130 / 130 Urine/Stool Mix 0 / 0 Emesis 0 / 0 Gastric Drainage 800 / 800 420 / 420 Gastrojejunostomy Tube 800 / 800 420 / 420 Jejunostomy Tube 0 / 0 0 / 0 Other: Other Intake Source Saline Solution Saline Solution # Voids 0 # Incontinent Voids 0 # Urine Diapers 0 Date of Last Bowel Movement 06/23/18 06/23/18 06/23/18 # Bowel Movements 0 # Incontinent Bowel Movements 0 # Emeses 1 Narrative: GENERAL: Thin, elderly adult female in no obvious distress. SKIN: Warm and dry. Pale. HEAD: Atraumatic. Normocephalic. CARDIOVASCULAR: Regular rate and rhythm. No murmur. RESPIRATORY: No accessory muscle use. Breath sounds equal bilaterally. Expiratory wheezing to bilateral posterior upper lobes. Trach in place. GASTROINTESTINAL: Abdomen soft, non-tender, non-distended. Normoactive bowel sounds. MUSCULOSKELETAL: Extremities without clubbing, cyanosis, or edema. No obvious deformities. NEUROLOGICAL: Awake and alert. Motor grossly within normal limits. - Urinary Catheter Management Indwelling Urethral Catheter Cath placed during this visit: yes Reason for continuing: Acute urinary retention Insertion date: 05/25/18 Insertion time: 14:00 Results - Labs CBC & Chem 7: 06/24/18 07:51 06/23/18 06:26 Laboratory Results - last 24 hr 05/25/18 06/13/18 06/23/18 09:55 10:44 08:50 WBC Corrected WBC RBC Hgb Hct MCV MCH MCHC RDW Plt Count MPV Hematology Comments Blood Type B Positive Antibody Screen Positive H MTS Gel Crossmatch See Detail See Detail See Detail 06/24/18 06/24/18 07:51 07:51 WBC 6.9 Cancelled Corrected WBC Cancelled RBC 2.83 L Cancelled Hgb 8.3 L Cancelled Hct 23.7 L Cancelled MCV 83.7 D Cancelled MCH 29.5 Cancelled MCHC 35.2 Cancelled RDW 16.0 Cancelled Plt Count 76 L Cancelled MPV 10.6 Cancelled Hematology Comments Cancelled Blood Type Antibody Screen MTS Gel Crossmatch Assessment and Plan - Assessment (1) Pneumonia Code(s): J18.9 - Pneumonia, unspecified organism Status: Acute (2) GERD (gastroesophageal reflux disease) Code(s): K21.9 - Gastro-esophageal reflux disease without esophagitis Status: Chronic (3) DVT (deep venous thrombosis) Code(s): I82.409 - Acute embolism and thrombosis of unspecified deep veins of unspecified lower extremity Status: Acute (4) Hypothyroidism Code(s): E03.9 - Hypothyroidism, unspecified Status: Chronic (5) Laryngeal squamous cell carcinoma Code(s): C32.9 - Malignant neoplasm of larynx, unspecified Status: Chronic (6) Protein-calorie malnutrition, severe Code(s): E43 - Unspecified severe protein-calorie malnutrition Status: Chronic - Plan This is a 73-year-old female with 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 The rapid response was called and the patient was transferred to ICU where she was placed on 60% oxygenation via trach collar. CCM reconsulted 05/23 due to hypotension. Currently managed for recurrent respiratory infections with MDRO managed by ID. CT chest does demonstrate a moderate left pleural effusion with left lower lobe atelectasis s/p thoracocentesis. Patient was again sent over to the ICU on 05/29 for acute pulmonary edema with further fever spikes. Patient underwent diuresis and was made a no code, was eventually stabilized and transition back to hospitalist care. Acute: Pancytopenia d/t myelodysplastic syndrome Per Heme/Onc: pancytopenia is due to MDS. She is not a candidate for chemo. Recommendation for pancytopenia is transfusion of PRBC (if Hg <7) and plat(if plat <15) support. Hx of DVT - anticoagulation recommended with platelet count consistently greater than 75,000; otherwise hold. -H&H 7.0/20.2, platelets 76 on 06/23/18, 1 unit PRBC was transfused. -H&H is stable today. Continue to monitor. Acute kidney injury with CKD -Creatinine trending up, possibly due to anemia. Rec'd 250 ml bolus yesterday. Will add 500 ml bolus. -Recheck BMP in am. -Avoid nephrotoxins Intermittent hypotension - Hypotension, asymptomatic this a.m. will be getting 1 unit of PRBC's today. -Monitoring and keep map above 60 Hyperkalemia, acute -Treat with albuterol 10 mg nebulizer x1 -K level stable MDRO PSAE persistent colonization New PNA, MDRO PSAE, Steno malt 05/29 History of squamous cell carcinoma of the larynx now status post tracheostomy due to recurrent aspiration Spiculated right upper lobe pulmonary nodule, multiple R pulmonary nodules - ID following, Dr. Canchola, appreciate assistance with mgmt, Bld Cx from negative, Urine Cx from 05/29, negative, Sputum Cx on 05/29+ -Pseudomonas MDR, sensitive to only tobramycin. -Levaquin completed. Chronic or resolved: Multiple pulmonary nodules -Pulmonary also following -Dr. Pineda has discussed risk/ benefits of biopsy with patient and her son on 05/05 and at that time they opted to defer biopsy. -Moderate pleural effusion s/p thora on 05/23, Cultures neg. Depression/anxiety -Continue Lexapro and Wellbutrin, Continue Klonopin through the G-tube every 8 hours, Temazepam as needed for insomnia Gastroesophageal reflux disease -Continue PPI and lactobacillus through the G-tube to gravity, discussed with nurse, gauze underneath to prevent skin maceration. Diarrhea -Likely secondary to antibiotics, improved. C. difficile studies were negative on 05/25, Continue Lomotil. UTI, MDRO PDSAE: resolved with tx with Avycaz Chronic DVT of the right lower extremity -Holding Lovenox due to thrombocytopenia. Per heme oncology resume Lovenox if platelets are consistently above 75,000. Will recheck tomorrow. R 1st digit of foot with increased erythema s/p trimming of ingrow toenail -Podiatry reccs from 06/01: Recommend triple antibiotic with Band-Aid to right hallux medial border. DVT PPX: Holding Lovenox due to thrombocytopenia per Heme/Onc, SCD's Discussed Condition With: OUMOU. (4) Hypothyroidism Qualifiers: Hypothyroidism type: unspecified Qualified Code(s): E03.9 - Hypothyroidism, unspecified
[2018-06-24] MEDS ORDERED: Sodium Chlor 0.9% Inj 500 ML IV.SIG SCH (13:00)
--- NOTE | 2018-06-24 17:55 | P.PN ---
Subjective Interval history: She is alert and on a Trach collar and feels better. HGb is 9. On a PM valve and talking Physical Exam Vital signs: Vital Signs 06/23/18 20:00 06/24/18 01:28 06/24/18 07:54 Temperature 97.8 F Pulse Rate 65 Respiratory Rate 16 16 Blood Pressure 94/41 L Pulse Oximetry 95 97 06/24/18 07:55 06/24/18 16:56 Temperature 98.6 F Pulse Rate 65 Respiratory Rate 16 Blood Pressure 105/50 L Pulse Oximetry 95 95 Intake & Output 06/23/18 06/24/18 06/24/18 18:59 06:59 18:59 Intake Total 3000 / 3000 1040 / 1040 1345 / 1345 Output Total 2750 / 2750 1450 / 1450 1250 / 1250 Balance 250 / 250 -410 / -410 95 / 95 Weight 49.5 kg Intake: IV 250 / 250 150 / 150 Levaquin 750 mg Premix Inj 150 150 / 150 ML @ 100 mls/hr IV.SIG Q48H ANN Rx#:[id number] NS Inj 250 ML @ 15 mls/hr IV. 250 / 250 SIG ONCE ANN Rx#:[id number] Oral 150 / 150 75 / 75 Tube Feeding 1300 / 1300 620 / 620 600 / 600 Tube Irrigant 0 / 0 120 / 120 120 / 120 Water Bolus Amount 900 / 900 400 / 400 Other 0 / 0 150 / 150 150 / 150 Intake (Blood Product) Amt 0 / 0 Rbc As-3 Leukoreduced Unit 0 / 0 [id number] Rbc As-3 Leukoreduced Unit 0 / 0 [id number] Mass Transfusion Protocol 400 / 400 0 / 0 Output: Urine 1700 / 1700 900 / 900 0 / 0 Stool 250 / 250 130 / 130 0 / 0 Urine/Stool Mix 0 / 0 0 / 0 Emesis 0 / 0 0 / 0 Urine Amount (Catheter) 850 / 850 Indwelling Urethral Catheter 850 / 850 Gastric Drainage 800 / 800 420 / 420 400 / 400 Gastrojejunostomy Tube 800 / 800 420 / 420 400 / 400 Jejunostomy Tube 0 / 0 0 / 0 0 / 0 Other: Other Intake Source Saline Solution Saline Solution Saline Solution # Voids 0 0 # Incontinent Voids 0 0 # Urine Diapers 0 0 Date of Last Bowel Movement 06/23/18 06/23/18 06/24/18 # Bowel Movements 0 2 # Incontinent Bowel Movements 0 0 # Emeses 1 0 Narrative: GENERAL: Thin, elderly adult female in no obvious distress. SKIN: Warm and dry. Pale. HEAD: Atraumatic. Normocephalic. CARDIOVASCULAR: Regular rate and rhythm. No murmur. RESPIRATORY: No accessory muscle use. Breath sounds equal bilaterally. Expiratory wheezing to bilateral . Trach in place. GASTROINTESTINAL: Abdomen soft, non-tender, non-distended. Normoactive bowel sounds. MUSCULOSKELETAL: Extremities without clubbing, cyanosis, or edema. No obvious deformities. NEUROLOGICAL: Awake and alert. Motor grossly within normal limits. - Urinary Catheter Management Indwelling Urethral Catheter Cath placed during this visit: yes Reason for continuing: Acute urinary retention Insertion date: 05/25/18 Insertion time: 14:00 Results - Labs CBC & Chem 7: 06/24/18 07:51 06/23/18 06:26 Laboratory Results - last 24 hr 05/25/18 06/24/18 06/24/18 09:55 07:51 07:51 WBC 6.9 Cancelled Corrected WBC Cancelled RBC 2.83 L Cancelled Hgb 8.3 L Cancelled Hct 23.7 L Cancelled MCV 83.7 D Cancelled MCH 29.5 Cancelled MCHC 35.2 Cancelled RDW 16.0 Cancelled Plt Count 76 L Cancelled MPV 10.6 Cancelled Hematology Comments Cancelled MTS Gel Crossmatch See Detail Assessment and Plan - Assessment (1) Respiratory failure Code(s): J96.90 - Respiratory failure, unspecified, unspecified whether with hypoxia or hypercapnia Status: Acute (2) Pneumonia Code(s): J18.9 - Pneumonia, unspecified organism Status: Acute (3) Status post trachelectomy Code(s): Z90.710 - Acquired absence of both cervix and uterus Status: Acute (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 Cont T collar at 28 % FIO2 . 2. Cont nebs with albuterol qid. PRN 3. PM valve daytime up to 12 hrs. 4. Cont Levsin .125 mg qid prn. 5. Tube feeds at 60 CC. 6. Chest Xray in am 7. CPT evaluation .
[2018-06-25] MEDS: Hyoscyamine Liq Drops 0.125 MG/ML 15 ML Bottle SL SCH ×4 (04:32→21:07)
[2018-06-25] MEDS: Levothyroxine 150 MCG Tablet J-TUBE SCH (05:55)
[2018-06-25 06:46] LABS: Calcium 8.3 mg/dL (8.5-10.1); Potassium 4.3 meq/L (3.5-5.1)
[2018-06-25 07:13] LABS: Hemoglobin 8.2 gm/dL (11.6-15.3); Mean Corpuscular HGB Conc 35.6 % (32.0-36.0); Mean Corpuscular Hemoglobin 29.9 pg (27.0-34.0); Mean Corpuscular Volume 84.1 fL (80.0-100.0); Mean Platelet Volume 10.6 fL (7.0-11.0); Platelet Count 75 th/mm3 (150-450); Red Blood Count 2.74 mil/mm3 (4.00-5.30); Red Cell Distribution Width 15.8 % (11.6-17.2); White Blood Count 5.7 th/mm3 (4.0-11.0)
--- NOTE | 2018-06-25 08:10 | XR ---
EXAM DATE: 06/25/2018 8:06 AM EST AGE/SEX: 73 years / Female INDICATIONS: Short of breath. CLINICAL DATA: This is the patient's subsequent encounter. Patient reports that signs and symptoms h ave been present for 2 months and indicates a pain score of 0/10. MEDICAL/SURGICAL HISTORY: Gastroesophageal reflux disease. Rendon's esophagus. Hypothyroid. S kin cancer. Larynx and supraglottis carcinoma . Cholecystectomy. Colonoscopy. Esophogeal dilation. EG D. Hernia repair. Adenoidectomy. Tonsillectomy. COMPARISON: [facility] [place], CHEST 1V SINGLE AP, 06/09/2018. . FINDINGS: Stable tracheostomy and right-sided PICC line. Persistent diffuse interstitial prominence with improv ing right lower lung zone aeration. Persistent left lower lobe pleural-parenchymal opacities. Cardiom ediastinal contours are within normal limits. Remainder of exam is unchanged. CONCLUSION: 1. Persistent diffuse interstitial edema with mildly improved aeration in the right lower lung zone. 2. Stable left lower lobe airspace disease and probable small pleural effusion. Electronically signed by: Chris Vieira MD 06/25/2018 8:08 AM EST
--- NOTE | 2018-06-25 09:26 | P.PNIM ---
Subjective Interval history: Nursing denies any acute deteriorations overnight. When I wake the patient and ask her if she is doing okay, she nods yes. Physical Exam Vital signs: Vital Signs 06/24/18 16:56 06/24/18 22:37 06/25/18 01:37 Temperature 98.1 F Pulse Rate 67 Respiratory Rate 20 Blood Pressure 110/67 Pulse Oximetry 95 98 95 Intake & Output 06/24/18 06/25/18 06/25/18 18:59 06:59 18:59 Intake Total 1845 / 1845 900 / 900 Output Total 1250 / 1250 1150 / 1150 Balance 595 / 595 -250 / -250 Weight 51.6 kg Intake: IV 500 / 500 NS Inj 500 ML @ 1000 mls/hr IV. 500 / 500 SIG BOLUS ANN Rx#:[id number] Oral 75 / 75 Tube Feeding 600 / 600 500 / 500 Tube Irrigant 120 / 120 Water Bolus Amount 400 / 400 400 / 400 Other 150 / 150 Mass Transfusion Protocol 0 / 0 Output: Urine 0 / 0 Stool 0 / 0 Urine/Stool Mix 0 / 0 Emesis 0 / 0 Urine Amount (Catheter) 850 / 850 450 / 450 Indwelling Urethral Catheter 850 / 850 450 / 450 Gastric Drainage 400 / 400 700 / 700 Gastrojejunostomy Tube 400 / 400 700 / 700 Jejunostomy Tube 0 / 0 Other: Other Intake Source Saline Solution # Voids 0 # Incontinent Voids 0 # Urine Diapers 0 Date of Last Bowel Movement 06/24/18 06/24/18 # Bowel Movements 2 # Incontinent Bowel Movements 0 # Emeses 0 Narrative: Heart sounds regular rate rhythm, no murmurs Lungs bilaterally, unlabored breathing On tracheostomy PEG tube feeds running - Urinary Catheter Management Indwelling Urethral Catheter Cath placed during this visit: yes Reason for continuing: Acute urinary retention Insertion date: 05/25/18 Insertion time: 14:00 Results - Labs CBC & Chem 7: 06/25/18 05:45 06/25/18 05:45 Laboratory Results - last 24 hr 05/25/18 06/25/18 06/25/18 09:55 05:45 05:45 WBC 5.7 RBC 2.74 L Hgb 8.2 L Hct 23.0 L MCV 84.1 MCH 29.9 MCHC 35.6 RDW 15.8 Plt Count 75 L MPV 10.6 Prelim Diff (Auto) Manual diff required Differential Comment . Sodium 137 Potassium 4.3 Chloride 97 L Carbon Dioxide 32.0 Anion Gap 8 BUN 67 H Creatinine 1.55 H Estimated GFR 33 L Random Glucose 97 Calcium 8.3 L MTS Gel Crossmatch See Detail - Imaging Impressions Chest X-Ray 06/25/18 00:00 CONCLUSION: 1. Persistent diffuse interstitial edema with mildly improved aeration in the right lower lung zone. 2. Stable left lower lobe airspace disease and probable small pleural effusion. Assessment and Plan - Assessment (1) Pneumonia Code(s): J18.9 - Pneumonia, unspecified organism Status: Acute (2) GERD (gastroesophageal reflux disease) Code(s): K21.9 - Gastro-esophageal reflux disease without esophagitis Status: Chronic (3) DVT (deep venous thrombosis) Code(s): I82.409 - Acute embolism and thrombosis of unspecified deep veins of unspecified lower extremity Status: Acute (4) Hypothyroidism Code(s): E03.9 - Hypothyroidism, unspecified Status: Chronic (5) Laryngeal squamous cell carcinoma Code(s): C32.9 - Malignant neoplasm of larynx, unspecified Status: Chronic (6) Protein-calorie malnutrition, severe Code(s): E43 - Unspecified severe protein-calorie malnutrition Status: Chronic - Plan This is a 73-year-old female with 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 The rapid response was called and the patient was transferred to ICU where she was placed on 60% oxygenation via trach collar. [facility] reconsulted 05/23 due to hypotension. Currently managed for recurrent respiratory infections with MDRO managed by ID. CT chest does demonstrate a moderate left pleural effusion with left lower lobe atelectasis s/p thoracocentesis. Patient was again sent over to the ICU on 05/29 for acute pulmonary edema with further fever spikes. Patient underwent diuresis and was made a no code, was eventually stabilized and transition back to hospitalist care. 06/25: Hemoglobin and platelets are holding steady, will continue Lovenox, recheck labs in a.m. renal function showing mild improvement Acute: Pancytopenia d/t myelodysplastic syndrome Per Heme/Onc: pancytopenia is due to MDS. She is not a candidate for chemo. Recommendation for pancytopenia is transfusion of PRBC (if Hg <7) and plat(if plat <15) support. Hx of DVT - anticoagulation recommended with platelet count consistently greater than 75,000; otherwise hold. -Platelets holding steady in the 75 to 76 k Acute kidney injury with CKD -Improving, check periodically Intermittent hypotension - Hypotension, asymptomatic this a.m. will be getting 1 unit of PRBC's today. -Monitoring and keep map above 60 Hyperkalemia, acute -Resolved MDRO PSAE persistent colonization New PNA, MDRO PSAE, Steno malt 05/29 History of squamous cell carcinoma of the larynx now status post tracheostomy due to recurrent aspiration Spiculated right upper lobe pulmonary nodule, multiple R pulmonary nodules - ID following, Dr. Canchola, appreciate assistance with mgmt, Bld Cx from negative, Urine Cx from 05/29, negative, Sputum Cx on 05/29+ -Pseudomonas MDR, sensitive to only tobramycin. -Levaquin completed. Chronic or resolved: Multiple pulmonary nodules -Pulmonary also following -Dr. Pineda has discussed risk/ benefits of biopsy with patient and her son on 05/05 and at that time they opted to defer biopsy. -Moderate pleural effusion s/p thora on 05/23, Cultures neg. Depression/anxiety -Continue Lexapro and Wellbutrin, Continue Klonopin through the G-tube every 8 hours, Temazepam as needed for insomnia Gastroesophageal reflux disease -Continue PPI and lactobacillus through the G-tube to gravity, discussed with nurse, gauze underneath to prevent skin maceration. Diarrhea -Likely secondary to antibiotics, improved. C. difficile studies were negative on 05/25, Continue Lomotil. UTI, MDRO PDSAE: resolved with tx with Avycaz Chronic DVT of the right lower extremity -Holding Lovenox due to thrombocytopenia. Per heme oncology resume Lovenox if platelets are consistently above 75,000. Will recheck tomorrow. R 1st digit of foot with increased erythema s/p trimming of ingrow toenail -Podiatry reccs from 06/01: Recommend triple antibiotic with Band-Aid to right hallux medial border. DVT PPX: Holding Lovenox due to thrombocytopenia per Heme/Onc, SCD's Discussed Condition With: RN. (4) Hypothyroidism Qualifiers: Hypothyroidism type: unspecified Qualified Code(s): E03.9 - Hypothyroidism, unspecified
[2018-06-25 09:33] LABS: Blast Cells 8 % (0-0); Eosinophils 2 % (0-4); Lymphocytes 13 % (9-44); Metamyelocytes 7 % (0-1); Monocytes 39 % (0-8); Myelocytes 1 % (0-0); Ovalocytes 1+; Platelet Morphology Normal (Normal)
[2018-06-25] MEDS: buPROPion 75 MG Tablet J-TUBE SCH ×2 (09:40→20:45)
[2018-06-25] MEDS: Loperamide Liq 2 MG/10 ML UDC J-TUBE SCH ×4 (09:40→20:45)
[2018-06-25] MEDS: Ascorbic Acid 500 MG Tablet J-TUBE SCH ×2 (09:41→20:45)
[2018-06-25] MEDS: Lactobacillus Acidophilus/L. Spores Tablet J-TUBE SCH ×3 (09:41→17:59)
[2018-06-25] MEDS: Heparin Central Flush 100 UNIT/ML 5 ML Vial IV.FLUSH SCH (09:42)
[2018-06-25] MEDS: Nystatin/Diphenhydramine/Lidocaine Mouthwash (Adult) 120 ML Botttle SWISH-SWAL SCH ×4 (09:42→20:07)
--- NOTE | 2018-06-25 18:28 | P.PN ---
Subjective Interval history: Alert and on a T Bar at 28 %. Using the PM valve. Physical Exam Vital signs: Vital Signs 06/24/18 22:37 06/25/18 01:37 06/25/18 08:00 Temperature 98.1 F Pulse Rate 67 Respiratory Rate 20 20 Blood Pressure 110/67 Pulse Oximetry 98 95 96 06/25/18 10:00 Temperature 98.7 F Pulse Rate 68 Respiratory Rate 16 Blood Pressure 99/54 L Pulse Oximetry 97 Intake & Output 06/24/18 06/25/18 06/25/18 18:59 06:59 18:59 Intake Total 1845 / 1845 900 / 900 600 / 600 Output Total 1250 / 1250 1150 / 1150 400 / 400 Balance 595 / 595 -250 / -250 200 / 200 Weight 51.6 kg Intake: IV 500 / 500 NS Inj 500 ML @ 1000 mls/hr IV. 500 / 500 SIG BOLUS ANN Rx#:[id number] Oral 75 / 75 Tube Feeding 600 / 600 500 / 500 600 / 600 Tube Irrigant 120 / 120 Water Bolus Amount 400 / 400 400 / 400 Other 150 / 150 Mass Transfusion Protocol 0 / 0 Output: Urine 0 / 0 Stool 0 / 0 Urine/Stool Mix 0 / 0 Emesis 0 / 0 Urine Amount (Catheter) 850 / 850 450 / 450 250 / 250 Indwelling Urethral Catheter 850 / 850 450 / 450 250 / 250 Gastric Drainage 400 / 400 700 / 700 150 / 150 Gastrojejunostomy Tube 400 / 400 700 / 700 150 / 150 Jejunostomy Tube 0 / 0 Other: Other Intake Source Saline Solution # Voids 0 # Incontinent Voids 0 # Urine Diapers 0 Date of Last Bowel Movement 06/24/18 06/24/18 06/24/18 # Bowel Movements 2 # Incontinent Bowel Movements 0 # Emeses 0 Narrative: Alert and pale.Elderly W/F GENERAL: SKIN: Warm and dry. HEAD: Atraumatic. Normocephalic. EYES: Pupils equal and round. No scleral icterus. No injection or drainage. ENT: No nasal bleeding or discharge. Mucous membranes pink and moist. NECK: Trachea midline. No JVD. CARDIOVASCULAR: Regular rate and rhythm. RESPIRATORY: No accessory muscle use. few basal crackles. Breath sounds equal bilaterally. GASTROINTESTINAL: Abdomen soft, non-tender, nondistended. Hepatic and splenic margins not palpable. MUSCULOSKELETAL: Extremities without clubbing, cyanosis, or edema. No obvious deformities. NEUROLOGICAL: Awake and alert. No obvious cranial nerve deficits. Motor grossly within normal limits. Normal speech. PSYCHIATRIC: Appropriate mood and affect; insight and judgment normal. - Urinary Catheter Management Indwelling Urethral Catheter Cath placed during this visit: yes Reason for continuing: Acute urinary retention Insertion date: 05/25/18 Insertion time: 14:00 Results - Labs CBC & Chem 7: 06/25/18 05:45 06/25/18 05:45 Laboratory Results - last 24 hr 06/25/18 06/25/18 05:45 05:45 WBC 5.7 RBC 2.74 L Hgb 8.2 L Hct 23.0 L MCV 84.1 MCH 29.9 MCHC 35.6 RDW 15.8 Plt Count 75 L MPV 10.6 Prelim Diff (Auto) Manual diff required WBC Differential Manual diff final Seg Neuts % (Manual) 22 Band Neuts % (Manual) 8 H Lymphocytes % (Manual) 13 Monocytes % (Manual) 39 H Eosinophils % (Manual) 2 Metamyelocytes % (Man) 7 H Myelocytes % (Man) 1 H Blast Cells % (Manual) 8 H Abs Neuts (Manual) 2.2 Differential Comment . Platelet Estimate Low L Platelet Morphology Normal Ovalocytes 1+ H Sodium 137 Potassium 4.3 Chloride 97 L Carbon Dioxide 32.0 Anion Gap 8 BUN 67 H Creatinine 1.55 H Estimated GFR 33 L Random Glucose 97 Calcium 8.3 L - Imaging Impressions Chest X-Ray 06/25/18 00:00 CONCLUSION: 1. Persistent diffuse interstitial edema with mildly improved aeration in the right lower lung zone. 2. Stable left lower lobe airspace disease and probable small pleural effusion. 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 Cont T collar at 28 % FIO2 . 2. Cont nebs with albuterol qid. PRN 3. Cont PM valve daytime up to 10 hrs. 4. Cont Levsin .125 mg qid prn. 5. Tube feeds at 60 CC. 6. Labs in am 7. PT evaluation .
[2018-06-26] MEDS: Hyoscyamine Liq Drops 0.125 MG/ML 15 ML Bottle SL SCH ×4 (05:26→21:51)
[2018-06-26] MEDS: Levothyroxine 150 MCG Tablet J-TUBE SCH (05:27)
[2018-06-26 06:24] LABS: Hemoglobin 8.1 gm/dL (11.6-15.3); Platelet Count 80 th/mm3 (150-450)
[2018-06-26] MEDS: Ascorbic Acid 500 MG Tablet J-TUBE SCH ×2 (08:20→20:20)
[2018-06-26] MEDS: Loperamide Liq 2 MG/10 ML UDC J-TUBE SCH ×4 (08:20→20:19)
[2018-06-26] MEDS: Heparin Central Flush 100 UNIT/ML 5 ML Vial IV.FLUSH SCH (08:20)
[2018-06-26] MEDS: Lactobacillus Acidophilus/L. Spores Tablet J-TUBE SCH ×3 (08:22→17:29)
[2018-06-26] MEDS: buPROPion 75 MG Tablet J-TUBE SCH ×2 (08:22→20:20)
[2018-06-26] MEDS: Nystatin/Diphenhydramine/Lidocaine Mouthwash (Adult) 120 ML Botttle SWISH-SWAL SCH ×4 (09:00→20:21)
--- NOTE | 2018-06-26 14:10 | P.PNIM ---
Subjective Interval history: Patient complaining of right hip pain or right knee pain. Not short of breath, not coughing, comfortable. There was a concern from nursing that she may have aspirated yesterday. Physical Exam Vital signs: Vital Signs 06/25/18 21:25 06/25/18 22:00 06/26/18 00:45 Temperature 98.6 F Pulse Rate 74 Respiratory Rate 20 Blood Pressure 90/42 L Pulse Oximetry 99 97 99 06/26/18 08:00 06/26/18 08:59 Temperature Pulse Rate 70 Respiratory Rate 16 Blood Pressure 98/51 L Pulse Oximetry 95 96 Intake & Output 06/25/18 06/26/18 06/26/18 18:59 06:59 18:59 Intake Total 600 / 600 1200 / 1200 Output Total 400 / 400 850 / 850 Balance 200 / 200 350 / 350 Weight 50.6 kg Intake: Tube Feeding 600 / 600 550 / 550 Tube Irrigant 150 / 150 Water Bolus Amount 500 / 500 Output: Urine Amount (Catheter) 250 / 250 650 / 650 Indwelling Urethral Catheter 250 / 250 650 / 650 Gastric Drainage 150 / 150 200 / 200 Gastrojejunostomy Tube 150 / 150 200 / 200 Other: Date of Last Bowel Movement 06/24/18 06/24/18 06/25/18 Narrative: Not in distress Regular rate and rhythm, no murmurs Clear breath sounds, unlabored breathing. Tracheostomy in place Awake, alert and oriented. Moves extremities. - Urinary Catheter Management Indwelling Urethral Catheter Cath placed during this visit: yes, but has since been removed by the nurse Reason for continuing: Chronic Urinary Retention Insertion date: 06/26/18 Insertion time: 00:30 Removal date: 06/26/18 Removal time: 00:00 Results - Labs CBC & Chem 7: 06/26/18 06:15 06/25/18 05:45 Laboratory Results - last 24 hr 06/26/18 06:15 Hgb 8.1 L Hct 23.0 L Plt Count 80 L Assessment and Plan - Assessment (1) Pneumonia Code(s): J18.9 - Pneumonia, unspecified organism Status: Acute (2) GERD (gastroesophageal reflux disease) Code(s): K21.9 - Gastro-esophageal reflux disease without esophagitis Status: Chronic (3) DVT (deep venous thrombosis) Code(s): I82.409 - Acute embolism and thrombosis of unspecified deep veins of unspecified lower extremity Status: Acute (4) Hypothyroidism Code(s): E03.9 - Hypothyroidism, unspecified Status: Chronic (5) Laryngeal squamous cell carcinoma Code(s): C32.9 - Malignant neoplasm of larynx, unspecified Status: Chronic (6) Protein-calorie malnutrition, severe Code(s): E43 - Unspecified severe protein-calorie malnutrition Status: Chronic - Plan This is a 73-year-old female with 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 The rapid response was called and the patient was transferred to ICU where she was placed on 60% oxygenation via trach collar. [facility] reconsulted 05/23 due to hypotension. Currently managed for recurrent respiratory infections with MDRO managed by ID. CT chest does demonstrate a moderate left pleural effusion with left lower lobe atelectasis s/p thoracocentesis. Patient was again sent over to the ICU on 05/29 for acute pulmonary edema with further fever spikes. Patient underwent diuresis and was made a no code, was eventually stabilized and transition back to hospitalist care. 06/25: Hemoglobin and platelets are holding steady, will continue Lovenox, recheck labs in a.m. renal function showing mild improvement Acute: Pancytopenia d/t myelodysplastic syndrome Per Heme/Onc: pancytopenia is due to MDS. She is not a candidate for chemo. Recommendation for pancytopenia is transfusion of PRBC (if Hg <7) and plat(if plat <15) support. Hx of DVT - anticoagulation recommended with platelet count consistently greater than 75,000; otherwise hold. -Platelets holding steady in the 75 to 76 k Acute kidney injury with CKD -Improving, check periodically Intermittent hypotension - Hypotension, asymptomatic this a.m. will be getting 1 unit of PRBC's today. -Monitoring and keep map above 60 Hyperkalemia, acute -Resolved MDRO PSAE persistent colonization New PNA, MDRO PSAE, Steno malt 05/29 History of squamous cell carcinoma of the larynx now status post tracheostomy due to recurrent aspiration Spiculated right upper lobe pulmonary nodule, multiple R pulmonary nodules - ID following, Dr. Canchola, appreciate assistance with mgmt, Bld Cx from negative, Urine Cx from 05/29, negative, Sputum Cx on 05/29+ -Pseudomonas MDR, sensitive to only tobramycin. -Levaquin completed. Chronic or resolved: Multiple pulmonary nodules -Pulmonary also following -Dr. Pineda has discussed risk/ benefits of biopsy with patient and her son on 05/05 and at that time they opted to defer biopsy. -Moderate pleural effusion s/p thora on 05/23, Cultures neg. Depression/anxiety -Continue Lexapro and Wellbutrin, Continue Klonopin through the G-tube every 8 hours, Temazepam as needed for insomnia Gastroesophageal reflux disease -Continue PPI and lactobacillus through the G-tube to gravity, discussed with nurse, gauze underneath to prevent skin maceration. Diarrhea -Likely secondary to antibiotics, improved. C. difficile studies were negative on 05/25, Continue Lomotil. UTI, MDRO PDSAE: resolved with tx with Avycaz Chronic DVT of the right lower extremity -Holding Lovenox due to thrombocytopenia. Per heme oncology resume Lovenox if platelets are consistently above 75,000. Platelets now at 80 and consistently above 75 since 3 days ago. Will start Lovenox, recheck CBC in a few days. R 1st digit of foot with increased erythema s/p trimming of ingrow toenail -Podiatry reccs from 06/01: Recommend triple antibiotic with Band-Aid to right hallux medial border. Right hip and right knee pain-patient complaining of right hip pain and knee pain which she has not complained before. Check x-ray, no history of trauma. No cough or pain Rule out aspiration-check WBC/CBC in a few days, no obvious signs of infection. Monitor. DVT PPX: Lovenox as above. Discussed Condition With: RN. (4) Hypothyroidism Qualifiers: Hypothyroidism type: unspecified Qualified Code(s): E03.9 - Hypothyroidism, unspecified
--- NOTE | 2018-06-26 16:26 | XR ---
EXAM DATE: 06/26/2018 4:16 PM EST AGE/SEX: 73 years / Female INDICATIONS: Pain. CLINICAL DATA: This is the patient's subsequent encounter. Patient reports that signs and symptoms h ave been present for 2 months and indicates a pain score of Nonresponsive. MEDICAL/SURGICAL HISTORY: . Gastroesophageal reflux disease. Rendon's esophagus. Hypothyroid. Skin cancer. Larynx and supraglottis carcinoma . . Cholecystectomy. Colonoscopy. Esophogeal dilatio n. EGD. Hernia repair. Adenoidectomy. Tonsillectomy. COMPARISON: No prior exams available for comparison. FINDINGS: Bony structures are intact and in normal alignment. Joints are intact without dislocation or signifi cant arthropathy. Osseous density is normal. Soft tissues are unremarkable. No radiopaque foreign bodies seen. There is no evidence of a joint effusion. CONCLUSION: Unremarkable exam for patient's age. Electronically signed by: Carlo Woo MD 06/26/2018 4:25 PM EST
--- NOTE | 2018-06-26 16:27 | XR ---
EXAM DATE: 06/26/2018 4:14 PM EST AGE/SEX: 73 years / Female INDICATIONS: Pain. CLINICAL DATA: This is the patient's subsequent encounter. Patient reports that signs and symptoms h ave been present for 2 months and indicates a pain score of Nonresponsive. MEDICAL/SURGICAL HISTORY: . Gastroesophageal reflux disease. Rendon's esophagus. Hypothyroid. Skin cancer. Larynx and supraglottis carcinoma . . Cholecystectomy. Colonoscopy. Esophogeal dilation . EGD. Hernia repair. Adenoidectomy. Tonsillectomy. COMPARISON: No prior exams available for comparison. FINDINGS: A single limited view of the right hip was performed. There is osteopenia of the bony structures. No definite acute fracture or joint dislocation is seen. The soft tissues are grossly unremarkable. CONCLUSION: Limited study. No definite bony fracture or joint dislocation. Electronically signed by: Carlo Woo MD 06/26/2018 4:25 PM EST
--- NOTE | 2018-06-26 17:34 | P.PN ---
Subjective Interval history: She has some congestion but stable on T bar at 30 %. Used PM valve for 3 hrs. Physical Exam Vital signs: Vital Signs 06/25/18 21:25 06/25/18 22:00 06/26/18 00:45 Temperature 98.6 F Pulse Rate 74 Respiratory Rate 20 Blood Pressure 90/42 L Pulse Oximetry 99 97 99 06/26/18 08:00 06/26/18 08:59 Temperature Pulse Rate 70 Respiratory Rate 16 Blood Pressure 98/51 L Pulse Oximetry 95 96 Intake & Output 06/25/18 06/26/18 06/26/18 18:59 06:59 18:59 Intake Total 600 / 600 1200 / 1200 Output Total 400 / 400 850 / 850 Balance 200 / 200 350 / 350 Weight 50.6 kg Intake: Tube Feeding 600 / 600 550 / 550 Tube Irrigant 150 / 150 Water Bolus Amount 500 / 500 Output: Urine Amount (Catheter) 250 / 250 650 / 650 Indwelling Urethral Catheter 250 / 250 650 / 650 Gastric Drainage 150 / 150 200 / 200 Gastrojejunostomy Tube 150 / 150 200 / 200 Other: Date of Last Bowel Movement 06/24/18 06/24/18 06/25/18 Narrative: Not in distress GENERAL: Elderly W/F pale SKIN: Warm and dry. HEAD: Atraumatic. Normocephalic. EYES: Pupils equal and round. No scleral icterus. No injection or drainage. ENT: No nasal bleeding or discharge. Mucous membranes pink and moist. NECK: Trachea midline. No JVD. CARDIOVASCULAR: Regular rate and rhythm. RESPIRATORY: No accessory muscle use. Clear to auscultation. Breath sounds equal bilaterally. GASTROINTESTINAL: Abdomen soft, non-tender, nondistended. Hepatic and splenic margins not palpable. MUSCULOSKELETAL: Extremities without clubbing, cyanosis, or edema. No obvious deformities. NEUROLOGICAL: Awake and alert. No obvious cranial nerve deficits. Motor grossly within normal limits. Normal speech. PSYCHIATRIC: Appropriate mood and affect; insight and judgment normal. - Urinary Catheter Management Indwelling Urethral Catheter Cath placed during this visit: yes, but has since been removed by the nurse Reason for continuing: Chronic Urinary Retention Insertion date: 06/26/18 Insertion time: 00:30 Removal date: 06/26/18 Removal time: 00:00 Results - Labs CBC & Chem 7: 06/26/18 06:15 11/07/18 05:45 Laboratory Results - last 24 hr 06/26/18 06:15 Hgb 8.1 L Hct 23.0 L Plt Count 80 L - Imaging Impressions Hip X-Ray 06/26/18 00:00 CONCLUSION: Limited study. No definite bony fracture or joint dislocation. Knee X-Ray 06/26/18 00:00 CONCLUSION: Unremarkable exam for patient's age. 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 Cont T collar at 30 % FIO2 . 2. Cont nebs with albuterol qid. PRN 3. Cont PM valve daytime up to 4 hrs. 4. Cont Levsin .125 mg qid prn. 5. Tube feeds at 60 CC. 6. Chest Xray today 7. PT evaluation .
[2018-06-27] MEDS: Hyoscyamine Liq Drops 0.125 MG/ML 15 ML Bottle SL SCH ×5 (04:44→21:29)
[2018-06-27] MEDS: Levothyroxine 150 MCG Tablet J-TUBE SCH (05:40)
--- NOTE | 2018-06-27 06:41 | XR ---
EXAM DATE: 06/27/2018 6:36 AM EST AGE/SEX: 73 years / Female INDICATIONS: Short of breath, congestion, evaluate infiltrate CLINICAL DATA: This is the patient's subsequent encounter. Patient reports that signs and symptoms h ave been present for 2 weeks and indicates a pain score of Nonresponsive. MEDICAL/SURGICAL HISTORY: Gastroesophageal reflux disease. Hypothyroidism. larynx ca, milan' s esophagus, Cholecystectomy. tracheostomy, adenoidectomy, hernia repair, EGD COMPARISON: C, CHEST 1V SINGLE AP, 06/25/2018. . FINDINGS: A single AP view of the chest demonstrates persistent interstitial prominence throughout both lungs. Intra-alveolar opacification is seen within the lung bases bilaterally but more pronounced on the lef t. A tiny left effusion noted. No effusion on the right. Heart is normal in size. Right-sided PICC li ne. Tracheostomy tube. CONCLUSION: No change from the prior study. Electronically signed by: Gab Caro MD 06/27/2018 6:39 AM EST
[2018-06-27] MEDS: Lactobacillus Acidophilus/L. Spores Tablet J-TUBE SCH ×3 (09:54→18:00)
[2018-06-27] MEDS: Heparin Central Flush 100 UNIT/ML 5 ML Vial IV.FLUSH SCH (09:54)
[2018-06-27] MEDS: buPROPion 75 MG Tablet J-TUBE SCH ×2 (09:54→20:54)
[2018-06-27] MEDS: Loperamide Liq 2 MG/10 ML UDC J-TUBE SCH ×4 (09:54→20:52)
[2018-06-27] MEDS: Ascorbic Acid 500 MG Tablet J-TUBE SCH ×2 (09:54→20:54)
[2018-06-27] MEDS: Nystatin/Diphenhydramine/Lidocaine Mouthwash (Adult) 120 ML Botttle SWISH-SWAL SCH ×3 (10:00→18:59)
--- NOTE | 2018-06-27 15:26 | P.PNIM ---
Subjective Interval history: Patient feels generally weak today. Still complaining of right hip and right knee pain. Mild abdominal pain, there is also noticed protrusion of a mass/ soft tissue in the PEG tube site. Mildly painful. No fever. Not short of breath. No bleeding, hematochezia or melena. Physical Exam Vital signs: Vital Signs 06/26/18 22:00 06/27/18 00:00 06/27/18 04:00 Temperature 98.9 F 96.1 F L 97.5 F L Pulse Rate 127 H 119 H 119 H Respiratory Rate 20 20 20 Blood Pressure 93/48 L 91/48 L 103/50 L Pulse Oximetry 96 94 L 100 06/27/18 08:00 Temperature 100.2 F H Pulse Rate 88 Respiratory Rate 16 Blood Pressure 94/51 L Pulse Oximetry 98 Intake & Output 06/26/18 06/27/18 06/27/18 18:59 06:59 18:59 Intake Total 750 / 750 925 / 925 Output Total 700 / 700 550 / 550 Balance 50 / 50 375 / 375 Weight 50.6 kg Intake: Oral 75 / 75 Tube Feeding 500 / 500 600 / 600 Water Bolus Amount 250 / 250 250 / 250 Mass Transfusion Protocol 0 / 0 Output: Urine 0 / 0 Stool 0 / 0 0 / 0 Urine/Stool Mix 0 / 0 Emesis 0 / 0 0 / 0 Urine Amount (Catheter) 600 / 600 300 / 300 Indwelling Urethral Catheter 600 / 600 300 / 300 Gastric Drainage 100 / 100 250 / 250 Gastrojejunostomy Tube 100 / 100 250 / 250 Jejunostomy Tube 0 / 0 Other: Other Intake Source Saline Solution # Voids 0 # Incontinent Voids 0 # Urine Diapers 0 Date of Last Bowel Movement 06/26/18 06/26/18 06/25/18 # Bowel Movements 1 # Incontinent Bowel Movements 0 # Emes[place] 0 Narrative: Not in distress Regular rate and rhythm, no murmurs Clear breath sounds, unlabored breathing. Abdomen soft, mildly tender around the PEG tube site, there is 8 mm to 10 mm mass, soft protruding outside of the PEG tube site, mildly tender, surrounded by mild erythema on the skin, no discharge. Tracheostomy in place Awake, alert and oriented. Moves extremities. - Urinary Catheter Management Indwelling Urethral Catheter Cath placed during this visit: yes, but has since been removed by the nurse Reason for continuing: Chronic Urinary Retention Insertion date: 06/26/18 Insertion time: 00:30 Removal date: 06/26/18 Removal time: 00:00 Results - Labs CBC & Chem 7: 06/26/18 06:15 06/25/18 05:45 - Imaging Impressions Hip X-Ray 06/26/18 00:00 CONCLUSION: Limited study. No definite bony fracture or joint dislocation. Knee X-Ray 06/26/18 00:00 CONCLUSION: Unremarkable exam for patient's age. Chest X-Ray 06/27/18 00:00 CONCLUSION: No change from the prior study. Assessment and Plan - Assessment (1) Pneumonia Code(s): J18.9 - Pneumonia, unspecified organism Status: Acute (2) GERD (gastroesophageal reflux disease) Code(s): K21.9 - Gastro-esophageal reflux disease without esophagitis Status: Chronic (3) DVT (deep venous thrombosis) Code(s): I82.409 - Acute embolism and thrombosis of unspecified deep veins of unspecified lower extremity Status: Acute (4) Hypothyroidism Code(s): E03.9 - Hypothyroidism, unspecified Status: Chronic (5) Laryngeal squamous cell carcinoma Code(s): C32.9 - Malignant neoplasm of larynx, unspecified Status: Chronic (6) Protein-calorie malnutrition, severe Code(s): E43 - Unspecified severe protein-calorie malnutrition Status: Chronic - Plan This is a 73-year-old female with 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 The rapid response was called and the patient was transferred to ICU where she was placed on 60% oxygenation via trach collar. [facility] reconsulted 05/23 due to hypotension. Currently managed for recurrent respiratory infections with MDRO managed by ID. CT chest does demonstrate a moderate left pleural effusion with left lower lobe atelectasis s/p thoracocentesis. Patient was again sent over to the ICU on 05/29 for acute pulmonary edema with further fever spikes. Patient underwent diuresis and was made a no code, was eventually stabilized and transition back to hospitalist care. 06/25: Hemoglobin and platelets are holding steady, will continue Lovenox, recheck labs in a.m. renal function showing mild improvement Acute: Pancytopenia d/t myelodysplastic syndrome Per Heme/Onc: pancytopenia is due to MDS. She is not a candidate for chemo. Recommendation for pancytopenia is transfusion of PRBC (if Hg <7) and plat(if plat <15) support. Hx of DVT - anticoagulation recommended with platelet count consistently greater than 75,000; otherwise hold. -Platelets holding steady in the 75 to 76 k Acute kidney injury with CKD -Improving, check periodically Intermittent hypotension - Hypotension, asymptomatic this a.m. will be getting 1 unit of PRBC's today. -Monitoring and keep map above 60 Hyperkalemia, acute -Resolved MDRO PSAE persistent colonization New PNA, MDRO PSAE, Steno malt 05/29 History of squamous cell carcinoma of the larynx now status post tracheostomy due to recurrent aspiration Spiculated right upper lobe pulmonary nodule, multiple R pulmonary nodules - ID following, Dr. Canchola, appreciate assistance with mgmt, Bld Cx from negative, Urine Cx from 05/29, negative, Sputum Cx on 05/29+ -Pseudomonas MDR, sensitive to only tobramycin. -Levaquin completed. Chronic or resolved: Multiple pulmonary nodules -Pulmonary also following -Dr. Pineda has discussed risk/ benefits of biopsy with patient and her son on 05/05 and at that time they opted to defer biopsy. -Moderate pleural effusion s/p thora on 05/23, Cultures neg. Depression/anxiety -Continue Lexapro and Wellbutrin, Continue Klonopin through the G-tube every 8 hours, Temazepam as needed for insomnia Gastroesophageal reflux disease -Continue PPI and lactobacillus through the G-tube to gravity, discussed with nurse, gauze underneath to prevent skin maceration. Diarrhea -Likely secondary to antibiotics, improved. C. difficile studies were negative on 05/25, Continue Lomotil. UTI, MDRO PDSAE: resolved with tx with Avycaz Chronic DVT of the right lower extremity -Holding Lovenox due to thrombocytopenia. Per heme oncology resume Lovenox if platelets are consistently above 75,000. Platelets now at 80 and consistently above 75 since 3 days ago. Continue Lovenox R 1st digit of foot with increased erythema s/p trimming of ingrow toenail -Podiatry reccs from 06/01: Recommend triple antibiotic with Band-Aid to right hallux medial border. Right hip and right knee pain-patient complaining of right hip pain and knee pain which she has not complained before. Check x-ray, no history of trauma. No cough or pain Rule out aspiration-recheck CBC tomorrow. Chest x-ray done today, unremarkable. Hip and knee pain, right-x-ray done of the hip and knee, unremarkable. Continue pain control, with [place] and Tylenol. Soft tissue mass through PEG tube site-IR nurse paged and will take a look. Neosporin around the area for now. 06/27/2018: Patient feels weaker today, check CBC, BMP. DVT PPX: Lovenox as above. Discussed Condition With: RN. (4) Hypothyroidism Qualifiers: Hypothyroidism type: unspecified Qualified Code(s): E03.9 - Hypothyroidism, unspecified
[2018-06-27] MEDS: Morphine Sulfate Oral Liq 10 MG/0.5 ML Syringe SL PRN ×2 (16:48→22:46)
[2018-06-27] MEDS ORDERED: Silver Nitrate/Potassium Nitrate Applicator Sticks TOPICAL ONE (17:00)
--- NOTE | 2018-06-27 17:23 | P.PNPAL ---
Reason for Visit Reason for visit: a. To assist with evaluation and management of symptoms including: dyspnea, pain, debility. b. To assist medical decision maker(s) with: better understanding of current medical conditions; weighing benefits/burdens of medical treatment options; making medical treatment decisions. Subjective Subjective/Interval History: Follow-up visit medically necessary for symptom management. Patient seen and examined in the presence of bedside RN Anisa. Patient remains on isolation.Sputum culture multidrug-resistant pseudomonas aeruginosa and Stenotrophomonas maltophilia. Patient asleep easily arousable, has a Passy- Satsuma valve. She is lethargic, oriented to self, place and situation. Patient currently endorsing pain to right knee and right hip. Slightly edematous to right inner knee. During examination patient stated that he felt good to be discharged with cold glove on the right knee. Recommended to bedside RN to try using an ice pack to right knee. Patient has not received any pain medication today. Last dose hydrocodone/acetaminophen administered on 06/26/18 at 0820 hrs. Patient amenable to taking pain medication now. Patient has some noticeable protrusion of mass/soft tissue to PEG tube site. Patient endorsing some abdominal discomfort and pain to her PEG tube site. Tube feed currently infusing at goal rate of 50 mL's/hr. Bedside RN reports that patient is tolerating tube feeds. Expressed concern regarding patient's PEG tube status, that it may need to be replaced if dislodged and patient indicated that she would be amenable to replacing PEG tube if need be. Interventional radiology physician arrived on floor during visit to assess PEG tube. 06/23/18-patient transfused 1 unit PRBC for hemoglobin of 7.0 and hematocrit 20.2. 06/26/18-patient complaining of pain to the right lower extremity. * Right hip x-ray on 06/26/18 revealed no definite bony fracture or joint dislocation. * Right knee x-ray -unremarkable markable exam for patient's age. 06/26/18-laboratory workup revealing hemoglobin 8.1, hematocrit 23.0 and platelet count of 80. Chest x-ray on 06/27/18 demonstrating persistent interstitial prominence throughout both lungs, intralobular opacification within the lung bases bilaterally but more pronounced on the left and a tiny left effusion. X-ray showing no changes from prior study. Telephone call to patient's son Alireza Juárez placed by Natali CURTIS to update him on patient`s current medical condition. Patient`s son indicated that he was having dinner and would call back later. Family/Friend Interactions: See interval note. . Advance Directives Living Will: Copy in medical record Health Care Surrogate: Copy in medical record Advance Directives Date on File: 02/08/18 Health Care Surrogate Name and Number: Alireza Whitten, son/medical power of criminal defense attorney: [phone] Documented care wishes:: Patient directs that her healthcare providers and others involved in her care provide, withhold or withdraw treatment in accordance with her wish to not prolong life if she has an incurable and irreversible condition that will result in her within a relatively short time or if she becomes unconscious and to a reasonable degree of medical certainty will not regain consciousness were the likely results and burdens of treatment would outweigh the expected benefits. She requests also that treatment for alleviation of pain or discomfort be provided at all times, even if it hastens her . Additionally she indicates that in the event of severe and irreversible or terminal illness that she wishes for the priority on keeping her comfortable and no aggressive therapy or intervention be done unless expressly approved by Alireza Whitten her son. She does not wish to donate any organs after her . Objective Vital Signs: Vital Signs 06/26/18 22:00 06/27/18 00:00 06/27/18 04:00 Temperature 98.9 F 96.1 F L 97.5 F L Pulse Rate 127 H 119 H 119 H Respiratory Rate 20 20 20 Blood Pressure 93/48 L 91/48 L 103/50 L Pulse Oximetry 96 94 L 100 06/27/18 08:00 Temperature 100.2 F H Pulse Rate 88 Respiratory Rate 16 Blood Pressure 94/51 L Pulse Oximetry 98 Intake & Output 06/26/18 06/27/18 06/27/18 18:59 06:59 18:59 Intake Total 750 / 750 925 / 925 Output Total 700 / 700 550 / 550 Balance 50 / 50 375 / 375 Weight 50.6 kg Intake: Oral 75 / 75 Tube Feeding 500 / 500 600 / 600 Water Bolus Amount 250 / 250 250 / 250 Mass Transfusion Protocol 0 / 0 Output: Urine 0 / 0 Stool 0 / 0 0 / 0 Urine/Stool Mix 0 / 0 Emesis 0 / 0 0 / 0 Urine Amount (Catheter) 600 / 600 300 / 300 Indwelling Urethral Catheter 600 / 600 300 / 300 Gastric Drainage 100 / 100 250 / 250 Gastrojejunostomy Tube 100 / 100 250 / 250 Jejunostomy Tube 0 / 0 Other: Other Intake Source Saline Solution # Voids 0 # Incontinent Voids 0 # Urine Diapers 0 Date of Last Bowel Movement 06/26/18 06/26/18 06/25/18 # Bowel Movements 1 # Incontinent Bowel Movements 0 # Emeses 0 Physical Exam: CONSTITUTIONAL/GENERAL: Chronically ill looking patient who appears older than stated age with a tracheostomy TUBES/LINES: oxygen via trach collar to trach, PICC line, GJ tube SKIN: Pale. Afebrile. No jaundice, rashes, or lesions. Healing wound to right great toe EYES: Pupils 3 mm reactive to light. Has glasses on. CARDIOVASCULAR: S1, S2 normal. No JVD. RESPIRATORY/CHEST: diminished lung sounds bilaterally. No wheezing, no rhonchi. GASTROINTESTINAL: Abdomen soft, non-tender, nondistended. Guarding. protrusion of mass/soft tissue to GJ tube site. MUSCULOSKELETAL: Extremities without clubbing, cyanosis. Edema noted to right inner knee NEUROLOGICAL: Lethargic, oriented to self, place and situation. Follows commands with all 4 extremities. PSYCHIATRIC: Calm. No anxiety. Diagnostic Tests Laboratory: Laboratory Results - last 72 hr 06/25/18 06/25/18 06/26/18 05:45 05:45 06:15 WBC 5.7 RBC 2.74 L Hgb 8.2 L 8.1 L Hct 23.0 L 23.0 L MCV 84.1 MCH 29.9 MCHC 35.6 RDW 15.8 Plt Count 75 L 80 L MPV 10.6 Prelim Diff (Auto) Manual diff required WBC Differential Manual diff final Seg Neuts % (Manual) 22 Band Neuts % (Manual) 8 H Lymphocytes % (Manual) 13 Monocytes % (Manual) 39 H Eosinophils % (Manual) 2 Metamyelocytes % (Man) 7 H Myelocytes % (Man) 1 H Blast Cells % (Manual) 8 H Abs Neuts (Manual) 2.2 Differential Comment . Platelet Estimate Low L Platelet Morphology Normal Ovalocytes 1+ H Sodium 137 Potassium 4.3 Chloride 97 L Carbon Dioxide 32.0 Anion Gap 8 BUN 67 H Creatinine 1.55 H Estimated GFR 33 L Random Glucose 97 Calcium 8.3 L Result Diagrams: 06/26/18 06:15 06/25/18 05:45 Imaging: Abdomen/Bladder Ultrasound 05/06/18 00:00 CONCLUSION: 1. Increased renal echogenicity characteristic of medical renal disease. Small cyst right kidney. Dependent debris in the bladder. Tube Check 05/20/18 00:00 CONCLUSION: 1. Uncomplicated tube injection as above. The gastrojejunostomy tube is in good position. If there is concern for duodenal stricture resulting in a functional obstruction consideration could be made to the administration of barium either orally or through the gastric lumen of the tube to assess for any obstruction. Thin iodinated contrast would be limited in trying to assess this. Upper GI Series 05/21/18 00:00 CONCLUSION: No evidence of gastric outlet or duodenal obstruction. Abdomen/Pelvis CT 05/22/18 00:00 CONCLUSION: 1. Diverticulosis without perceptible diverticulitis or other acute inflammatory changes. 2. The gastrojejunostomy tube appears appropriately positioned. No perceptible associated acute complication. 3. There are scattered tiny nonobstructing stones of both kidneys and a small cyst on the right. 4. Small sliding-type hiatal hernia again seen. Chest CT 05/22/18 16:12 CONCLUSION: 1. Moderate left pleural effusion with atelectasis of the left lower lobe. 2. Mild right base atelectasis, improved compared to prior CT. 3. Right upper lobe pulmonary nodules are stable but the larger one remains concerning for primary bronchogenic carcinoma. Chest Ultrasound 05/23/18 00:00 CONCLUSION: 1. Lastly 360 cc of pleural effusion on the left. This does not appear loculated or complex. Site was marked Thoracentesis Ultrasound 05/23/18 00:00 CONCLUSION: Uncomplicated ultrasound-guided left chest thoracentesis as above. Extremity Arterial Study 05/24/18 00:00 CONCLUSION: 1. Severe reduction of the ABIs bilaterally. Abdomen X-Ray 05/26/18 00:00 CONCLUSION: 1. GJ tube appears to be in appropriate position with distal end of the jejunal feeding tube in the left upper quadrant. 2. Persistent pleural-parenchymal opacity at the left lung base. Chest CTA 05/26/18 00:00 CONCLUSION: 1. No evidence for pulmonary embolism. 2. Bibasilar consolidation. 3. Prominent nodule in the right upper lobe again seen measuring 13 mm concerning for malignancy. 4. Patchy opacities in the lingula and left lower lobe likely infectious. Venous Doppler Study 05/30/18 00:00 CONCLUSION: Significant interval recanalization of prior extensive right leg DVT Left leg remains normal in appearance. Hip X-Ray 06/26/18 00:00 CONCLUSION: Limited study. No definite bony fracture or joint dislocation. Knee X-Ray 06/26/18 00:00 CONCLUSION: Unremarkable exam for patient's age. Chest X-Ray 06/27/18 00:00 CONCLUSION: No change from the prior study. 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 Patient now has a tracheostomy. Pertinent Non-Medical Issues: Psychosocial: Patient is originally from [place]. She has 4 brothers and 2 sisters. She moved to [place] approximately 40 years ago. Patient was for 18 years and then . She and her had 3 sons (Alireza, Sagar and Cameron). Alireza is a physicians desk assistant and lives in [place]. Adalid and Cameron live in [place]. Per patient, Cameron was born with "autism" and live in a [place] [facility] Spiritual: Zoroastrianism Legal: Pt's son Alireza is medical POA. Ethical issues impacting care: none Important Contacts: medical POA son Alireza Whitten , cell [phone] Prognosis: This is a 73 yo lady with hx laryngeal ca diagnosed 2015 s/p chemo and radiation who [facility] in [facility]. She initially presented in January with weakness, dysphagia, weight loss, anemia. Chest CT showing enlarging spiculated nodule, 2 additional right lung nodules. She has since had tracheostomy, GJ, and numerous complications, including PNA, need for GJ replacement. She is likely to continue to decline and encounter complications and setbacks as she deconditions. Unlikely she would tolerate invasive procedure such as long bx, or tolerate the treatment necessary to address a malignancy if that is what her lung nodules are. Code Status: No Code DNR (DNR/DNI does NOT want to go back on mech vent.) Plan: - LEGAL DECISON MAKER - Pt is capacitated to make medical decisions. Should she become incapacitated, she has designated her son Alireza as medical POA. - NO CODE - DNR/DNI does NOT want to go back on mech vent. - GOALS - Goals aggressive short of NO CODE, she does not want tracheostomy changed out. They do not want comfort meds withheld for hypotension or other reasons. Patient has protrusion of soft tissue to GJ tube site, she is amenable to replacement of GJ tube if needed. - Palliative care will continue to follow. - SYMPTOMS - No new medication recommendations at this time. * pain - risk for pain. multifactorial, coccygeal ulcer, mult lines and catheters, tubes. Has PRN Raymond and PRN Roxanol 5mg q4h for breakthrough pain. Sparing need. Will continue to monitor need and effect. Endorsing pain to GJ tube site and right knee and hip. Continue current meds, call son prior to making any medication adjustments. * dyspnea - hx laryngeal ca, has trach, now with PNA. BCX pending. denies feeling SOB today. On oxygen via t-piece, PM valve as needed. Duonebs as needed. has PRN meds for anxiety and pain. * depression/anxiety - multifactorial. pt mildly anxious, on lexapro, wellbutrin. Has clonazepam 0.5 mg q8h PRN. Has PRN temazepam for insomnia. * debility- multifactorial. 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 respiratory status unlikely to allow for aggressive therapy and rehab. weak. PT following. no further recs. - d/w nurses, Anisa and Kanika. Telephone call to patient's son Alireza Juárez placed by Natali CURTIS to update him on patient`s current medical condition. Patient`s son indicated that he was having dinner and would call back later. - Palliative care will continue to follow during hospital course as condition evolves, to assist patient/decision-maker with understanding of medical conditions, weighing benefits/burdens of treatment options, for clarification of goals of treatment. Additionally will assist with any symptoms of palliative concern Attestation Attestation: To help prompt me to consider important information that might be impacting today's encounter and assessment, information from prior notes written by myself or my colleagues may have been "brought forward" into today's note. My signature on this note, however, is an attestation that I personally performed the exam, history, and/or decision-making noted today, and, unless otherwise indicated, the interactions with patient, family, and staff as well as the review of records all occurred today. I also attest that the listed assessment and stated plan reflect my best clinical judgment today based on the combination of historical information, prior notes, and today's exam/ interactions. When time spent is documented, it refers only to time spent today by the signer, or if indicated, combined time spent today by collaborating physician/nurse practitioner.
[2018-06-27] MEDS ORDERED: Diatrizoate Meglum/Diatrizoate Sod Liq 120 ML Bottle (for RAD diag) J-TUBE ONE (19:30)
--- NOTE | 2018-06-27 19:31 | XR ---
EXAM DATE: 06/27/2018 7:28 PM EST AGE/SEX: 73 years / Female INDICATIONS: GJ tube dislodged with regurgitation through stoma. CLINICAL DATA: This is the patient's initial encounter. Patient reports that signs and symptoms have been present for 1 day and indicates a pain score of Nonresponsive. MEDICAL/SURGICAL HISTORY: . Gastroesophageal reflux disease. Hypothyroidism. larynx ca, milan 's esophagus, Cholecystectomy. tracheostomy, adenoidectomy, hernia repair, EGD . COMPARISON: [facility], ABDOMEN 1V KUB, 05/26/2018. . FINDINGS: Contrast is injected to the patient's gastrojejunostomy tube. There is normal intraluminal opacifica tion of small bowel. No leak demonstrated. CONCLUSION: Within normal limits. No evidence of gastrojejunostomy tube leak. Electronically signed by: Gee Babcock MD 06/27/2018 7:29 PM EST
--- NOTE | 2018-06-27 20:16 | P.PN ---
Subjective Interval history: Alert and breathing OK. Trach site is clean. PEG tube has displaced. No fever. Physical Exam Vital signs: Vital Signs 06/26/18 22:00 06/27/18 00:00 06/27/18 04:00 Temperature 98.9 F 96.1 F L 97.5 F L Pulse Rate 127 H 119 H 119 H Respiratory Rate 20 20 20 Blood Pressure 93/48 L 91/48 L 103/50 L Pulse Oximetry 96 94 L 100 06/27/18 08:00 06/27/18 17:15 06/27/18 17:22 Temperature 100.2 F H Pulse Rate 88 Respiratory Rate 16 18 Blood Pressure 94/51 L Pulse Oximetry 98 98 06/27/18 18:17 Temperature Pulse Rate 84 Respiratory Rate 16 Blood Pressure 85/45 L Pulse Oximetry 95 Intake & Output 06/27/18 06/27/18 06/28/18 06:59 18:59 06:59 Intake Total 925 / 925 700 / 700 Output Total 550 / 550 900 / 900 Balance 375 / 375 -200 / -200 Weight 50.6 kg Intake: Oral 75 / 75 Tube Feeding 600 / 600 500 / 500 Water Bolus Amount 250 / 250 200 / 200 Mass Transfusion Protocol 0 / 0 Output: Urine 0 / 0 Stool 0 / 0 0 / 0 Urine/Stool Mix 0 / 0 Emesis 0 / 0 0 / 0 Urine Amount (Catheter) 300 / 300 600 / 600 Indwelling Urethral Catheter 300 / 300 600 / 600 Gastric Drainage 250 / 250 300 / 300 Gastrojejunostomy Tube 250 / 250 300 / 300 Jejunostomy Tube 0 / 0 Other: Other Intake Source Saline Solution # Voids 0 # Incontinent Voids 0 # Urine Diapers 0 Date of Last Bowel Movement 06/26/18 06/26/18 # Bowel Movements 0 # Incontinent Bowel Movements 0 # Emeses 0 Narrative: Elderly W/F in NAD. Trach in Neck. Regular rate and rhythm, no murmurs Clear breath sounds, unlabored breathing. Abdomen soft, mildly tender around the PEG tube site, there is 8 mm to 10 mm mass, soft protruding outside of the PEG tube site, mildly tender, surrounded by mild erythema on the skin, no discharge. Tracheostomy in place with no inflammation Awake, alert and oriented. Moves extremities. - Urinary Catheter Management Indwelling Urethral Catheter Cath placed during this visit: yes, but has since been removed by the nurse Reason for continuing: Chronic Urinary Retention Insertion date: 06/26/18 Insertion time: 00:30 Removal date: 06/26/18 Removal time: 00:00 Results - Labs CBC & Chem 7: 06/26/18 06:15 06/25/18 05:45 - Imaging Impressions Chest X-Ray 06/27/18 00:00 CONCLUSION: No change from the prior study. Abdomen X-Ray 06/27/18 18:35 CONCLUSION: Within normal limits. No evidence of gastrojejunostomy tube leak. 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 Cont T collar at 30 % FIO2 . 2. Cont nebs with albuterol qid. PRN 3. Cont PM valve daytime up to 6 hrs. 4. Cont Levsin .125 mg qid prn. 5. Tube feeds per GI after PEG placement 6. CBC,BMP am. 7. PT evaluation .
[2018-06-28] MEDS: Hyoscyamine Liq Drops 0.125 MG/ML 15 ML Bottle SL SCH ×3 (03:18→17:36)
[2018-06-28] MEDS: Levothyroxine 150 MCG Tablet J-TUBE SCH (06:12)
[2018-06-28 06:39] LABS: Hematocrit 23.5 % (35.0-46.0); Mean Corpuscular Hemoglobin 29.3 pg (27.0-34.0); Mean Corpuscular Volume 85.9 fL (80.0-100.0); Mean Platelet Volume 10.5 fL (7.0-11.0); Platelet Count 73 th/mm3 (150-450); Red Blood Count 2.73 mil/mm3 (4.00-5.30); Red Cell Distribution Width 15.3 % (11.6-17.2); White Blood Count 9.5 th/mm3 (4.0-11.0)
[2018-06-28 06:59] LABS: Calcium 8.6 mg/dL (8.5-10.1); Carbon Dioxide 32.5 meq/L (21.0-32.0); Potassium 4.6 meq/L (3.5-5.1)
[2018-06-28 08:27] LABS: Blast Cells 2 % (0-0); Dohle Bodies Present; Eosinophils 2 % (0-4); Lymphocytes 24 % (9-44); Metamyelocytes 2 % (0-1); Monocytes 28 % (0-8); Ovalocytes 1+; Promyelocyte 1 % (0-0)
[2018-06-28] MEDS: Heparin Central Flush 100 UNIT/ML 5 ML Vial IV.FLUSH SCH (08:29)
[2018-06-28] MEDS: Ascorbic Acid 500 MG Tablet J-TUBE SCH ×2 (08:30→20:22)
[2018-06-28] MEDS: Loperamide Liq 2 MG/10 ML UDC J-TUBE SCH ×4 (08:30→20:21)
[2018-06-28] MEDS: buPROPion 75 MG Tablet J-TUBE SCH ×2 (08:30→20:21)
[2018-06-28] MEDS: Lactobacillus Acidophilus/L. Spores Tablet J-TUBE SCH ×3 (08:30→17:36)
--- NOTE | 2018-06-28 12:12 | P.PN ---
Subjective Interval history: Patient says she feels ok. She is complaining of pain in the right hip, knee and foot. She describes the pain as a dull ache. She reports nausea but no vomiting. She denies any chest pain or dyspnea. She continues to have leakage around her PEG site. Plan for IR consult on Saturday for GJ tube replacement. Physical Exam Vital signs: Vital Signs 06/27/18 17:15 06/27/18 17:22 06/27/18 18:17 Pulse Rate 84 Respiratory Rate 18 16 Blood Pressure 85/45 L Pulse Oximetry 98 95 06/28/18 06:00 06/28/18 07:42 Pulse Rate Respiratory Rate 18 18 Blood Pressure Pulse Oximetry Intake & Output 06/27/18 06/28/18 06/28/18 18:59 06:59 18:59 Intake Total 700 / 700 100 / 100 Output Total 900 / 900 600 / 600 Balance -200 / -200 -500 / -500 Weight 50.6 kg Intake: IV 100 / 100 Rocephin Inj 1,000 MG In NS Inj 100 / 100 100 ML @ 200 mls/hr IV.SIG Q24H [facility] Rx#:[id number] Tube Feeding 500 / 500 Water Bolus Amount 200 / 200 Mass Transfusion Protocol 0 / 0 Output: Urine 0 / 0 Stool 0 / 0 Urine/Stool Mix 0 / 0 Emesis 0 / 0 Urine Amount (Catheter) 600 / 600 500 / 500 Indwelling Urethral Catheter 600 / 600 500 / 500 Gastric Drainage 300 / 300 100 / 100 Gastrojejunostomy Tube 300 / 300 100 / 100 Jejunostomy Tube 0 / 0 Other: Other Intake Source Saline Solution # Voids 0 # Incontinent Voids 0 # Urine Diapers 0 Date of Last Bowel Movement 06/26/18 06/27/18 06/27/18 # Bowel Movements 0 # Incontinent Bowel Movements 0 2 # Emeses 0 Narrative: GENERAL: Thin chronically ill appearing female, INAD. Awake and alert. SKIN: Warm and dry. HEENT: Atraumatic. Normocephalic. Pupils equal and round. No scleral icterus. No injection or drainage. No nasal bleeding or discharge. Mucous membranes pink and moist. NECK: Trachea midline. Tracheostomy in place. CARDIOVASCULAR: Regular rate and rhythm. RESPIRATORY: No accessory muscle use. Clear to auscultation. Breath sounds equal bilaterally. GASTROINTESTINAL: Abdomen soft, nondistended. +tenderness noted around PEG site , significant amount of leakage noted around the site. MUSCULOSKELETAL: Extremities without clubbing, cyanosis, or edema. No obvious deformities. +tenderness elicited to palpation of right hip, knee and foot. NEUROLOGICAL: Awake and alert. No obvious cranial nerve deficits. Able to move all extremities. PSYCHIATRIC: Appropriate mood and affect; insight and judgment normal. - Urinary Catheter Management Indwelling Urethral Catheter Cath placed during this visit: yes, but has since been removed by the nurse Reason for continuing: Acute urinary retention Insertion date: 06/26/18 Insertion time: 00:30 Removal date: 06/26/18 Removal time: 00:00 Results - Labs CBC & Chem 7: 06/28/18 06:20 06/28/18 06:20 Laboratory Results - last 24 hr 06/28/18 06/28/18 06:20 06:20 WBC 9.5 RBC 2.73 L Hgb 8.0 L Hct 23.5 L MCV 85.9 MCH 29.3 MCHC 34.0 RDW 15.3 Plt Count 73 L MPV 10.5 Prelim Diff (Auto) Manual diff required WBC Differential Manual diff final Seg Neuts % (Manual) 40 Band Neuts % (Manual) 1 Lymphocytes % (Manual) 24 Monocytes % (Manual) 28 H Eosinophils % (Manual) 2 Metamyelocytes % (Man) 2 H Promyelocytes % (Man) 1 H Blast Cells % (Manual) 2 H Abs Neuts (Manual) 4.2 Differential Comment . Dohle Bodies Present H Platelet Estimate Low L Platelet Morphology Enlarged H Ovalocytes 1+ H Sodium 140 Potassium 4.6 Chloride 98 Carbon Dioxide 32.5 H Anion Gap 10 BUN 96 H Creatinine 2.11 H Estimated GFR 23 L Random Glucose 101 Calcium 8.6 - Imaging Impressions Abdomen X-Ray 06/27/18 18:35 CONCLUSION: Within normal limits. No evidence of gastrojejunostomy tube leak. Assessment and Plan - Assessment (1) Pneumonia Code(s): J18.9 - Pneumonia, unspecified organism Status: Acute (2) GERD (gastroesophageal reflux disease) Code(s): K21.9 - Gastro-esophageal reflux disease without esophagitis Status: Chronic (3) DVT (deep venous thrombosis) Code(s): I82.409 - Acute embolism and thrombosis of unspecified deep veins of unspecified lower extremity Status: Acute (4) Hypothyroidism Code(s): E03.9 - Hypothyroidism, unspecified Status: Chronic (5) Laryngeal squamous cell carcinoma Code(s): C32.9 - Malignant neoplasm of larynx, unspecified Status: Chronic (6) Protein-calorie malnutrition, severe Code(s): E43 - Unspecified severe protein-calorie malnutrition Status: Chronic - Plan This is a 73-year-old female with 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 The rapid response was called and the patient was transferred to ICU where she was placed on 60% oxygenation via trach collar. [facility] reconsulted 05/23 due to hypotension. Currently managed for recurrent respiratory infections with MDRO managed by ID. CT chest does demonstrate a moderate left pleural effusion with left lower lobe atelectasis s/p thoracocentesis. Patient was again sent over to the ICU on 05/29 for acute pulmonary edema with further fever spikes. Patient underwent diuresis and was made a no code, was eventually stabilized and transition back to hospitalist care. Acute: GJ tube with leakage Soft tissue mass thru PEG site - s/p cauterization by Dr. Bautista. GJ tube not in proper position. He was able to deflate the balloon and place in proper position. 1800cc of yellow bilious drainage from GJ tube. Plan for IR consult for Saturday for GJ tube replacement - started on SBP prophylaxis with IV Ceftriaxone, continue Pancytopenia d/t myelodysplastic syndrome Per Heme/Onc: pancytopenia is due to MDS. She is not a candidate for chemo. Recommendation for pancytopenia is transfusion of PRBC (if Hg <7) and plat(if plat <15) support. Hx of DVT - anticoagulation recommended with platelet count consistently greater than 75,000; otherwise hold. -Platelets holding steady -Hgb 8.0 -continue to monitor CBC closely Acute kidney injury with CKD -creatinine worsening, jumped from 1.55 to 2.11, likely 2/2 hypoperfusion/low BP and dehydration -BUN 96 -started on IVF -avoid nephrotoxic agents -repeat BMP in am Intermittent hypotension - Hypotensive today with BP 85/45. Started on IVF. - Monitoring and keep map above 60 MDRO PSAE persistent colonization New PNA, MDRO PSAE, Steno malt 05/29 History of squamous cell carcinoma of the larynx now status post tracheostomy due to recurrent aspiration Spiculated right upper lobe pulmonary nodule, multiple R pulmonary nodules - ID following, Dr. Canchola, appreciate assistance with mgmt, Bld Cx from negative, Urine Cx from 05/29, negative, Sputum Cx on 05/29+ -Pseudomonas MDR, sensitive to only tobramycin. -Levaquin completed. Chronic or resolved: Multiple pulmonary nodules -Pulmonary also following -Dr. Pineda has discussed risk/ benefits of biopsy with patient and her son on 05/05 and at that time they opted to defer biopsy. -Moderate pleural effusion s/p thora on 05/23, Cultures neg. Depression/anxiety -Continue Lexapro and Wellbutrin, Continue Klonopin through the G-tube every 8 hours, Temazepam as needed for insomnia Gastroesophageal reflux disease -Continue PPI and lactobacillus through the G-tube to gravity, discussed with nurse, gauze underneath to prevent skin maceration. Diarrhea -Likely secondary to antibiotics, improved. C. difficile studies were negative on 05/25, Continue Lomotil. UTI, MDRO PDSAE: resolved with tx with Avycaz Chronic DVT of the right lower extremity -Holding Lovenox due to thrombocytopenia. Per heme oncology resume Lovenox if platelets are consistently above 75,000. Platelets now at 80 and consistently above 75 since 3 days ago. 06/28 Platelets 73, continue Lovenox. Will repeat CBC in am. R 1st digit of foot with increased erythema s/p trimming of ingrow toenail -Podiatry reccs from 06/01: Recommend triple antibiotic with Band-Aid to right hallux medial border. Right hip and right knee pain-patient complaining of right hip pain and knee pain which she has not complained before. Check x-ray, no history of trauma, unremarkable. Possibly due to clot burden??. Continue pain control with [place] and Tylenol. Trial of Lidoderm patch and K thermia. DVT PPX: Lovenox as above. Code Status: DNR Discussed Condition With: patient, nursing staff, Dr. Kiser (4) Hypothyroidism Qualifiers: Hypothyroidism type: unspecified Qualified Code(s): E03.9 - Hypothyroidism, unspecified
--- NOTE | 2018-06-28 14:26 | P.PN ---
Subjective Interval history: has a leak around the PEG tube. Off Tube feeds. On a T Bar at 28 %. Physical Exam Vital signs: Vital Signs 06/27/18 17:15 06/27/18 17:22 06/27/18 18:17 Temperature Pulse Rate 84 Respiratory Rate 18 16 Blood Pressure 85/45 L Pulse Oximetry 98 95 06/28/18 06:00 06/28/18 07:42 06/28/18 12:48 Temperature 98.8 F Pulse Rate Respiratory Rate 18 18 18 Blood Pressure 87/39 L Pulse Oximetry 95 Intake & Output 06/27/18 06/28/18 06/28/18 18:59 06:59 18:59 Intake Total 700 / 700 100 / 100 Output Total 900 / 900 600 / 600 Balance -200 / -200 -500 / -500 Weight 50.6 kg Intake: IV 100 / 100 Rocephin Inj 1,000 MG In NS Inj 100 / 100 100 ML @ 200 mls/hr IV.SIG Q24H [facility] Rx#:[id number] Tube Feeding 500 / 500 Water Bolus Amount 200 / 200 Mass Transfusion Protocol 0 / 0 Output: Urine 0 / 0 Stool 0 / 0 Urine/Stool Mix 0 / 0 Emesis 0 / 0 Urine Amount (Catheter) 600 / 600 500 / 500 Indwelling Urethral Catheter 600 / 600 500 / 500 Gastric Drainage 300 / 300 100 / 100 Gastrojejunostomy Tube 300 / 300 100 / 100 Jejunostomy Tube 0 / 0 Other: Other Intake Source Saline Solution # Voids 0 # Incontinent Voids 0 # Urine Diapers 0 Date of Last Bowel Movement 06/26/18 06/27/18 06/27/18 # Bowel Movements 0 # Incontinent Bowel Movements 0 2 # Emeses 0 Narrative: Elderly W/F in NAD. Trach in Neck. Regular rate and rhythm, no murmurs Clear breath sounds, unlabored breathing. Abdomen soft, mildly tender around the PEG tube site, there is 8 mm to 10 mm mass, soft protruding outside of the PEG tube site, mildly tender, surrounded by mild erythema on the skin, no discharge. Tracheostomy in place with no inflammation Awake, alert and oriented. Moves extremities. - Urinary Catheter Management Indwelling Urethral Catheter Cath placed during this visit: yes, but has since been removed by the nurse Reason for continuing: Acute urinary retention Insertion date: 06/26/18 Insertion time: 00:30 Removal date: 06/26/18 Removal time: 00:00 Results - Labs CBC & Chem 7: 06/28/18 06:20 06/28/18 06:20 Laboratory Results - last 24 hr 06/28/18 06/28/18 06:20 06:20 WBC 9.5 RBC 2.73 L Hgb 8.0 L Hct 23.5 L MCV 85.9 MCH 29.3 MCHC 34.0 RDW 15.3 Plt Count 73 L MPV 10.5 Prelim Diff (Auto) Manual diff required WBC Differential Manual diff final Seg Neuts % (Manual) 40 Band Neuts % (Manual) 1 Lymphocytes % (Manual) 24 Monocytes % (Manual) 28 H Eosinophils % (Manual) 2 Metamyelocytes % (Man) 2 H Promyelocytes % (Man) 1 H Blast Cells % (Manual) 2 H Abs Neuts (Manual) 4.2 Differential Comment . Dohle Bodies Present H Platelet Estimate Low L Platelet Morphology Enlarged H Ovalocytes 1+ H Sodium 140 Potassium 4.6 Chloride 98 Carbon Dioxide 32.5 H Anion Gap 10 BUN 96 H Creatinine 2.11 H Estimated GFR 23 L Random Glucose 101 Calcium 8.6 - Imaging Impressions Abdomen X-Ray 06/27/18 18:35 CONCLUSION: Within normal limits. No evidence of gastrojejunostomy tube leak. 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 Cont T collar at 30 % FIO2 . 2. Cont nebs with albuterol qid. PRN 3. Start IV Fluids at 50 CC 4. Cont Levsin .125 mg qid prn. 5. Tube feeds per GI after PEG placement 6. Replace peg tube Saturday 7. Labs in am.
[2018-06-28] MEDS: Dextrose 5%/NaCl 0.45% Inj 1,000 ML IV.CONT SCH (14:54)
[2018-06-29] MEDS: Hyoscyamine Liq Drops 0.125 MG/ML 15 ML Bottle SL SCH ×5 (00:51→21:29)
[2018-06-29] MEDS: Levothyroxine 150 MCG Tablet J-TUBE SCH (05:05)
[2018-06-29] MEDS: Lidocaine 5% Patch T-DERMAL SCH ×2 (06:57→08:41)
[2018-06-29] MEDS: Loperamide Liq 2 MG/10 ML UDC J-TUBE SCH ×4 (08:41→22:14)
[2018-06-29] MEDS: buPROPion 75 MG Tablet J-TUBE SCH ×2 (08:42→22:14)
[2018-06-29] MEDS: Heparin Central Flush 100 UNIT/ML 5 ML Vial IV.FLUSH SCH (08:43)
[2018-06-29] MEDS: Lactobacillus Acidophilus/L. Spores Tablet J-TUBE SCH ×3 (08:43→17:08)
[2018-06-29 10:22] LABS: Hematocrit 22.5 % (35.0-46.0); Hemoglobin 7.5 gm/dL (11.6-15.3); Mean Corpuscular HGB Conc 33.3 % (32.0-36.0); Mean Corpuscular Hemoglobin 29.2 pg (27.0-34.0); Mean Corpuscular Volume 87.7 fL (80.0-100.0); Mean Platelet Volume 10.9 fL (7.0-11.0); Platelet Count 72 th/mm3 (150-450); Red Blood Count 2.57 mil/mm3 (4.00-5.30); Red Cell Distribution Width 15.4 % (11.6-17.2); White Blood Count 8.6 th/mm3 (4.0-11.0)
[2018-06-29 10:44] LABS: Calcium 8.1 mg/dL (8.5-10.1); Carbon Dioxide 29.8 meq/L (21.0-32.0)
--- NOTE | 2018-06-29 10:44 | P.PN ---
Subjective Interval history: Patient continues to have pain in the right leg but she says the lidoderm patches help some. Her BP is better. She denies any complaints of nausea today. She says she feels ok. Noted to have less leakage around the PEG site. Physical Exam Vital signs: Vital Signs 06/28/18 12:48 06/28/18 20:00 06/29/18 00:00 Temperature 98.8 F 98.3 F 97.6 F Pulse Rate 68 64 Respiratory Rate 18 20 20 Blood Pressure 87/39 L 104/52 L 96/46 L Pulse Oximetry 95 96 99 06/29/18 07:24 Temperature 98 F Pulse Rate 61 Respiratory Rate 20 Blood Pressure 117/62 Pulse Oximetry 99 Intake & Output 06/28/18 06/29/18 06/29/18 18:59 06:59 18:59 Intake Total 375 / 375 850 / 850 100 / 100 Output Total 1051 / 1051 525 / 525 Balance -676 / -676 325 / 325 100 / 100 Weight 50.6 kg Intake: IV 100 / 100 Rocephin Inj 1,000 MG In NS Inj 100 / 100 100 ML @ 200 mls/hr IV.SIG Q24H [facility] Rx#:[id number] Oral 75 / 75 100 / 100 Tube Feeding 0 / 0 0 / 0 Tube Irrigant 0 / 0 Water Bolus Amount 150 / 150 150 / 150 Other 150 / 150 600 / 600 Mass Transfusion Protocol 0 / 0 Output: Urine 0 / 0 Stool 1 / 1 0 / 0 Urine/Stool Mix 0 / 0 Emesis 0 / 0 0 / 0 Urine Amount (Catheter) 850 / 850 300 / 300 Indwelling Urethral Catheter 850 / 850 300 / 300 Gastric Drainage 200 / 200 225 / 225 Gastrojejunostomy Tube 200 / 200 225 / 225 Jejunostomy Tube 0 / 0 Other: Other Intake Source Saline Solution # Voids 0 # Incontinent Voids 0 # Urine Diapers 0 Date of Last Bowel Movement 06/28/18 06/28/18 06/28/18 # Bowel Movements 0 # Incontinent Bowel Movements 2 # Emeses 0 0 Narrative: GENERAL: Thin chronically ill appearing female. Awake and alert. In no acute distress. SKIN: Warm and dry. HEENT: Atraumatic. Normocephalic. Pupils equal and round. No scleral icterus. No injection or drainage. No nasal bleeding or discharge. Mucous membranes pink and moist. NECK: Trachea midline. Tracheostomy in place. CARDIOVASCULAR: Regular rate and rhythm. RESPIRATORY: No accessory muscle use. Clear to auscultation. Breath sounds equal bilaterally. GASTROINTESTINAL: Abdomen soft, nondistended. +tenderness noted around PEG site , no active leakage noted around site. MUSCULOSKELETAL: Extremities without clubbing, cyanosis, or edema. No obvious deformities. +tenderness elicited to palpation of right hip, knee and foot. NEUROLOGICAL: Awake and alert. No obvious cranial nerve deficits. Able to move all extremities. PSYCHIATRIC: Appropriate mood and affect; insight and judgment normal. - Urinary Catheter Management Indwelling Urethral Catheter Cath placed during this visit: yes, but has since been removed by the nurse Reason for continuing: Acute urinary retention Insertion date: 06/26/18 Insertion time: 00:30 Removal date: 06/26/18 Removal time: 00:00 Results - Labs CBC & Chem 7: 06/29/18 09:30 06/29/18 09:30 Laboratory Results - last 24 hr 06/29/18 09:30 WBC 8.6 RBC 2.57 L Hgb 7.5 L Hct 22.5 L MCV 87.7 MCH 29.2 MCHC 33.3 RDW 15.4 Plt Count 72 L MPV 10.9 Prelim Diff (Auto) Manual diff required Differential Comment . Assessment and Plan - Assessment (1) Pneumonia Code(s): J18.9 - Pneumonia, unspecified organism Status: Acute (2) GERD (gastroesophageal reflux disease) Code(s): K21.9 - Gastro-esophageal reflux disease without esophagitis Status: Chronic (3) DVT (deep venous thrombosis) Code(s): I82.409 - Acute embolism and thrombosis of unspecified deep veins of unspecified lower extremity Status: Acute (4) Hypothyroidism Code(s): E03.9 - Hypothyroidism, unspecified Status: Chronic (5) Laryngeal squamous cell carcinoma Code(s): C32.9 - Malignant neoplasm of larynx, unspecified Status: Chronic (6) Protein-calorie malnutrition, severe Code(s): E43 - Unspecified severe protein-calorie malnutrition Status: Chronic - Plan This is a 73-year-old female with 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 The rapid response was called and the patient was transferred to ICU where she was placed on 60% oxygenation via trach collar. [facility] reconsulted 05/23 due to hypotension. Currently managed for recurrent respiratory infections with MDRO managed by ID. CT chest does demonstrate a moderate left pleural effusion with left lower lobe atelectasis s/p thoracocentesis. Patient was again sent over to the ICU on 05/29 for acute pulmonary edema with further fever spikes. Patient underwent diuresis and was made a no code, was eventually stabilized and transition back to hospitalist care. Acute: GJ tube with leakage Soft tissue mass thru PEG site - s/p cauterization by Dr. Bautista. GJ tube not in proper position. He was able to deflate the balloon and place in proper position. 1800cc of yellow bilious drainage from GJ tube. Plan for IR consult for Saturday for GJ tube replacement - order placed in chart by Dr. Adair - started on SBP prophylaxis with IV Ceftriaxone, continue Pancytopenia d/t myelodysplastic syndrome Per Heme/Onc: pancytopenia is due to MDS. She is not a candidate for chemo. Recommendation for pancytopenia is transfusion of PRBC (if Hg <7) and plat(if plat <15) support. Hx of DVT - anticoagulation recommended with platelet count consistently greater than 75,000; otherwise hold. -Platelets slowly trending down, today 72. Hgb dropped to 7.5. Repeat CBC in am. If continues downward trend, will hold Lovenox and order transfusion. -continue to monitor CBC closely Acute kidney injury with CKD -creatinine worsening, jumped from 1.55 to 2.11, likely 2/2 hypoperfusion/low BP and dehydration. 06/29 creatinine improved to 2.07. -BUN 96 -started on IVF, continue -avoid nephrotoxic agents -repeat BMP in am Intermittent hypotension - Hypotensive yesterday with BP 85/45. Started on IVF. BP improving. - Monitoring and keep map above 60 MDRO PSAE persistent colonization New PNA, MDRO PSAE, Steno malt 05/29 History of squamous cell carcinoma of the larynx now status post tracheostomy due to recurrent aspiration Spiculated right upper lobe pulmonary nodule, multiple R pulmonary nodules - ID following, Dr. Canchola, appreciate assistance with mgmt, Bld Cx from negative, Urine Cx from 05/29, negative, Sputum Cx on 05/29+ -Pseudomonas MDR, sensitive to only tobramycin. -Levaquin completed. Chronic or resolved: Multiple pulmonary nodules -Pulmonary also following -Dr. Pineda has discussed risk/ benefits of biopsy with patient and her son on 05/05 and at that time they opted to defer biopsy. -Moderate pleural effusion s/p thora on 05/23, Cultures neg. Depression/anxiety -Continue Lexapro and Wellbutrin, Continue Klonopin through the G-tube every 8 hours, Temazepam as needed for insomnia Gastroesophageal reflux disease -Continue PPI and lactobacillus through the G-tube to gravity, discussed with nurse, gauze underneath to prevent skin maceration. Diarrhea -Likely secondary to antibiotics, improved. C. difficile studies were negative on 05/25, Continue Lomotil. UTI, MDRO PDSAE: resolved with tx with Avycaz Chronic DVT of the right lower extremity -Holding Lovenox due to thrombocytopenia. Per heme oncology resume Lovenox if platelets are consistently above 75,000. Platelets now at 80 and consistently above 75 since 3 days ago. 06/29 Platelets 72, continue Lovenox. Will repeat CBC in am. R 1st digit of foot with increased erythema s/p trimming of ingrow toenail -Podiatry reccs from 06/01: Recommend triple antibiotic with Band-Aid to right hallux medial border. Right hip and right knee pain-patient complaining of right hip pain and knee pain which she has not complained before. No history of trauma, xray unremarkable. Possibly due to clot burden??. Continue pain control with [place] and Tylenol. Trial of Lidoderm patch and K thermia. Trial of Lyrica. DVT PPX: Lovenox as above. Code Status: DNR Discussed Condition With: patient, nursing staff, Dr. Kiser (4) Hypothyroidism Qualifiers: Hypothyroidism type: unspecified Qualified Code(s): E03.9 - Hypothyroidism, unspecified
[2018-06-29 10:54] LABS: Blast Cells 11 % (0-0); Eosinophils 4 % (0-4); Lymphocytes 23 % (9-44); Metamyelocytes 6 % (0-1); Monocytes 9 % (0-8); Myelocytes 19 % (0-0); Tallied Nucleated RBC 1 (0-0)
[2018-06-29 10:55] LABS: RBC Morphology Normal (Normal)
[2018-06-29] MEDS: Ascorbic Acid 500 MG Tablet J-TUBE SCH ×2 (11:16→22:15)
[2018-06-29] MEDS: Dextrose 5%/NaCl 0.45% Inj 1,000 ML IV.CONT SCH (11:16)
[2018-06-29] MEDS: Pregabalin 25 MG Capsule G-TUBE SCH ×2 (12:46→22:14)
--- NOTE | 2018-06-29 17:33 | P.PN ---
Subjective Interval history: Doing better today. PEG tube leaking less. On a T Collar and PM valve No fever. Physical Exam Vital signs: Vital Signs 06/28/18 20:00 06/29/18 00:00 06/29/18 07:24 Temperature 98.3 F 97.6 F 98 F Pulse Rate 68 64 61 Respiratory Rate 20 20 20 Blood Pressure 104/52 L 96/46 L 117/62 Pulse Oximetry 96 99 99 06/29/18 12:26 06/29/18 16:08 Temperature 97.8 F 98.1 F Pulse Rate 60 58 L Respiratory Rate 18 18 Blood Pressure 107/53 L 97/46 L Pulse Oximetry 99 Intake & Output 06/28/18 06/29/18 06/29/18 18:59 06:59 18:59 Intake Total 375 / 375 850 / 850 1100 / 1100 Output Total 1051 / 1051 525 / 525 Balance -676 / -676 325 / 325 1100 / 1100 Weight 50.6 kg Intake: IV 1100 / 1100 D5W/1/2 NS Inj 1,000 ML @ 50 1000 / 1000 mls/hr IV.CONT .Q20H [facility] Rx#: [id number] Rocephin Inj 1,000 MG In NS Inj 100 / 100 100 ML @ 200 mls/hr IV.SIG Q24H [facility] Rx#:[id number] Oral 75 / 75 100 / 100 Tube Feeding 0 / 0 0 / 0 Tube Irrigant 0 / 0 Water Bolus Amount 150 / 150 150 / 150 Other 150 / 150 600 / 600 Mass Transfusion Protocol 0 / 0 Output: Urine 0 / 0 Stool 1 / 1 0 / 0 Urine/Stool Mix 0 / 0 Emesis 0 / 0 0 / 0 Urine Amount (Catheter) 850 / 850 300 / 300 Indwelling Urethral Catheter 850 / 850 300 / 300 Gastric Drainage 200 / 200 225 / 225 Gastrojejunostomy Tube 200 / 200 225 / 225 Jejunostomy Tube 0 / 0 Other: Other Intake Source Saline Solution # Voids 0 # Incontinent Voids 0 # Urine Diapers 0 Date of Last Bowel Movement 06/28/18 06/28/18 06/28/18 # Bowel Movements 0 # Incontinent Bowel Movements 2 # Emeses 0 0 Narrative: GENERAL: Thin chronically ill appearing female. Awake and alert. In no acute distress. SKIN: Warm and dry. HEENT: Atraumatic. Normocephalic. Pupils equal and round. No scleral icterus. No injection or drainage. No nasal bleeding or discharge. Mucous membranes pink and moist. NECK: Trachea midline. Tracheostomy in place. CARDIOVASCULAR: Regular rate and rhythm. RESPIRATORY: No accessory muscle use. Clear to auscultation. Breath sounds equal bilaterally. GASTROINTESTINAL: Abdomen soft, nondistended. +tenderness noted around PEG site , no active leakage noted around site. MUSCULOSKELETAL: Extremities without clubbing, cyanosis, or edema. No obvious deformities. NEUROLOGICAL: Awake and alert. No obvious cranial nerve deficits. Able to move all extremities. PSYCHIATRIC: Appropriate mood and affect; insight and judgment normal. - Urinary Catheter Management Indwelling Urethral Catheter Cath placed during this visit: yes, but has since been removed by the nurse Reason for continuing: Acute urinary retention Insertion date: 06/26/18 Insertion time: 00:30 Removal date: 06/26/18 Removal time: 00:00 Results - Labs CBC & Chem 7: 06/29/18 09:30 06/29/18 09:30 Laboratory Results - last 24 hr 06/29/18 06/29/18 09:30 09:30 WBC 8.6 RBC 2.57 L Hgb 7.5 L Hct 22.5 L MCV 87.7 MCH 29.2 MCHC 33.3 RDW 15.4 Plt Count 72 L MPV 10.9 Prelim Diff (Auto) Manual diff required WBC Differential Manual diff final Seg Neuts % (Manual) 15 L Band Neuts % (Manual) 13 H Lymphocytes % (Manual) 23 Monocytes % (Manual) 9 H Eosinophils % (Manual) 4 Metamyelocytes % (Man) 6 H Myelocytes % (Man) 19 H Blast Cells % (Manual) 11 H Abs Neuts (Manual) 4.6 Nucleated RBCs/100 WBC 1 H Differential Comment . Platelet Estimate Low L Platelet Morphology Enlarged H RBC Morphology Normal Sodium 141 Potassium 4.0 Chloride 101 Carbon Dioxide 29.8 Anion Gap 10 BUN 93 H Creatinine 2.07 H Estimated GFR 24 L Random Glucose 98 Calcium 8.1 L Assessment and Plan - Assessment (1) Respiratory failure Code(s): J96.90 - Respiratory failure, unspecified, unspecified whether with hypoxia or hypercapnia Status: Acute (2) Pneumonia Code(s): J18.9 - Pneumonia, unspecified organism Status: Acute (3) Status post trachelectomy Code(s): Z90.710 - Acquired absence of both cervix and uterus Status: Acute (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 Cont T collar at 28 % FIO2 . 2. Cont nebs with albuterol qid. PRN 3. Cont IV's 4. Cont Levsin .125 mg qid prn. 5. Tube feeds per GI after PEG placement 6. Replace peg tube Saturday 7. CBC,BMP in am.
[2018-06-30] MEDS: Hyoscyamine Liq Drops 0.125 MG/ML 15 ML Bottle SL SCH ×4 (05:38→21:42)
[2018-06-30] MEDS: Levothyroxine 150 MCG Tablet J-TUBE SCH (05:38)
[2018-06-30] MEDS: Dextrose 5%/NaCl 0.45% Inj 1,000 ML IV.CONT SCH (06:46)
[2018-06-30 09:57] LABS: Hematocrit 21.5 % (35.0-46.0); Hemoglobin 7.5 gm/dL (11.6-15.3); Mean Corpuscular Hemoglobin 29.9 pg (27.0-34.0); Mean Corpuscular Volume 85.4 fL (80.0-100.0); Platelet Count 78 th/mm3 (150-450); Red Blood Count 2.52 mil/mm3 (4.00-5.30); Red Cell Distribution Width 15.6 % (11.6-17.2); White Blood Count 7.6 th/mm3 (4.0-11.0)
[2018-06-30] MEDS: Loperamide Liq 2 MG/10 ML UDC J-TUBE SCH ×4 (09:59→21:41)
[2018-06-30] MEDS: Lactobacillus Acidophilus/L. Spores Tablet J-TUBE SCH ×3 (09:59→17:22)
[2018-06-30] MEDS: Lidocaine 5% Patch T-DERMAL SCH (09:59)
[2018-06-30] MEDS: Heparin Central Flush 100 UNIT/ML 5 ML Vial IV.FLUSH SCH (10:00)
[2018-06-30] MEDS: Pregabalin 25 MG Capsule G-TUBE SCH ×2 (10:00→21:41)
[2018-06-30] MEDS: Ascorbic Acid 500 MG Tablet J-TUBE SCH ×2 (10:00→21:42)
[2018-06-30] MEDS: buPROPion 75 MG Tablet J-TUBE SCH ×2 (10:01→21:41)
[2018-06-30 10:36] LABS: Calcium 8.1 mg/dL (8.5-10.1); Carbon Dioxide 26.6 meq/L (21.0-32.0); Potassium 3.9 meq/L (3.5-5.1)
--- NOTE | 2018-06-30 10:50 | P.PN ---
Subjective Interval history: Patient seen and examined. Patient to go for GJ tube procedure later today. Patient states she is ok. She does not voice any new concerns or complaints. She continues to have pain in the right hip and knee. DW nursing staff, no adverse events, PEG tube leaking less. Physical Exam Vital signs: Vital Signs 06/29/18 12:26 06/29/18 16:08 06/29/18 20:00 Temperature 97.8 F 98.1 F 97.7 F Pulse Rate 60 58 L 77 Respiratory Rate 18 Blood Pressure 107/53 L 97/46 L 106/53 L Pulse Oximetry 99 92 L 06/30/18 01:10 Temperature Pulse Rate Respiratory Rate Blood Pressure Pulse Oximetry 97 Intake & Output 06/29/18 06/30/18 06/30/18 18:59 06:59 18:59 Intake Total 2049 / 0 100 / 100 Output Total 850 / 850 850 / 850 Balance 1200 / 1200 -750 / -750 Weight 50 kg Intake: IV 1100 / 1100 100 / 100 D5W/1/2 NS Inj 1,000 ML @ 50 1000 / 1000 mls/hr IV.CONT .Q20H [facility] Rx#: [id number] Rocephin Inj 1,000 MG In NS Inj 100 / 100 100 / 100 100 ML @ 200 mls/hr IV.SIG Q24H [facility] Rx#:[id number] Oral 200 / 200 0 / 0 Tube Feeding 0 / 0 Tube Irrigant 0 / 0 Water Bolus Amount 150 / 150 Other 600 / 600 Mass Transfusion Protocol 0 / 0 Output: Urine 0 / 0 Stool 0 / 0 Urine/Stool Mix 0 / 0 Emesis 0 / 0 Urine Amount (Catheter) 750 / 750 850 / 850 Indwelling Urethral Catheter 750 / 750 850 / 850 Gastric Drainage 100 / 100 Gastrojejunostomy Tube 100 / 100 Jejunostomy Tube 0 / 0 Other: Other Intake Source Saline Solution # Voids 0 # Incontinent Voids 0 # Urine Diapers 0 Date of Last Bowel Movement 06/28/18 06/28/18 # Bowel Movements 0 # Incontinent Bowel Movements 2 # [place] 0 Narrative: GENERAL: Thin chronically ill appearing female, not in any acute distress. Awake and alert. SKIN: Warm and dry. HEENT: Atraumatic. Normocephalic. Pupils equal and round. No scleral icterus. No injection or drainage. No nasal bleeding or discharge. Mucous membranes pink and moist. NECK: Trachea midline. Tracheostomy in place. CARDIOVASCULAR: Regular rate and rhythm. RESPIRATORY: No accessory muscle use. Clear to auscultation. Breath sounds equal bilaterally. GASTROINTESTINAL: Abdomen soft, nondistended. +tenderness noted around PEG site , no active leakage noted around site. MUSCULOSKELETAL: Extremities without clubbing, cyanosis, or edema. No obvious deformities. +tenderness to palpation over right hip greater trochanteric area and lateral aspect of right knee. NEUROLOGICAL: Awake and alert. No obvious cranial nerve deficits. Able to move all extremities. PSYCHIATRIC: Appropriate mood and affect; insight and judgment normal. - Urinary Catheter Management Indwelling Urethral Catheter Cath placed during this visit: yes, but has since been removed by the nurse Reason for continuing: Acute urinary retention Insertion date: 06/26/18 Insertion time: 00:30 Removal date: 06/26/18 Removal time: 00:00 Results - Labs CBC & Chem 7: 06/30/18 09:06 06/30/18 09:06 Laboratory Results - last 24 hr 06/29/18 06/30/18 06/30/18 09:30 09:06 09:06 WBC 7.6 RBC 2.52 L Hgb 7.5 L Hct 21.5 L MCV 85.4 MCH 29.9 MCHC 35.0 RDW 15.6 Plt Count 78 L MPV 11.0 Prelim Diff (Auto) Manual diff required WBC Differential Manual diff final Seg Neuts % (Manual) 15 L Band Neuts % (Manual) 13 H Lymphocytes % (Manual) 23 Monocytes % (Manual) 9 H Eosinophils % (Manual) 4 Metamyelocytes % (Man) 6 H Myelocytes % (Man) 19 H Blast Cells % (Manual) 11 H Abs Neuts (Manual) 4.6 Nucleated RBCs/100 WBC 1 H Differential Comment . Platelet Estimate Low L Platelet Morphology Enlarged H RBC Morphology Normal Sodium 140 Potassium 3.9 Chloride 102 Carbon Dioxide 26.6 Anion Gap 11 BUN 72 H Creatinine 1.75 H Estimated GFR 29 L Random Glucose 90 Calcium 8.1 L Assessment and Plan - Assessment (1) Pneumonia Code(s): J18.9 - Pneumonia, unspecified organism Status: Acute (2) GERD (gastroesophageal reflux disease) Code(s): K21.9 - Gastro-esophageal reflux disease without esophagitis Status: Chronic (3) DVT (deep venous thrombosis) Code(s): I82.409 - Acute embolism and thrombosis of unspecified deep veins of unspecified lower extremity Status: Acute (4) Hypothyroidism Code(s): E03.9 - Hypothyroidism, unspecified Status: Chronic (5) Laryngeal squamous cell carcinoma Code(s): C32.9 - Malignant neoplasm of larynx, unspecified Status: Chronic (6) Protein-calorie malnutrition, severe Code(s): E43 - Unspecified severe protein-calorie malnutrition Status: Chronic - Plan This is a 73-year-old female with 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 The rapid response was called and the patient was transferred to ICU where she was placed on 60% oxygenation via trach collar. CCM reconsulted 05/23 due to hypotension. Currently managed for recurrent respiratory infections with MDRO managed by ID. CT chest does demonstrate a moderate left pleural effusion with left lower lobe atelectasis s/p thoracocentesis. Patient was again sent over to the ICU on 05/29 for acute pulmonary edema with further fever spikes. Patient underwent diuresis and was made a no code, was eventually stabilized and transition back to hospitalist care. Acute: GJ tube with leakage Soft tissue mass thru PEG site - s/p cauterization by Dr. Bautista. GJ tube not in proper position. He was able to deflate the balloon and place in proper position. 1800cc of yellow bilious drainage from GJ tube. Plan for IR GJ tube replacement later today. - started on SBP prophylaxis with IV Ceftriaxone, continue Pancytopenia d/t myelodysplastic syndrome Per Heme/Onc: pancytopenia is due to MDS. She is not a candidate for chemo. Recommendation for pancytopenia is transfusion of PRBC (if Hg <7) and plat(if plat <15) support. Hx of DVT - anticoagulation recommended with platelet count consistently greater than 75,000; otherwise hold. -platelets holding steady -Hgb stable at 7.5 for past two days, will repeat CBC in am Acute kidney injury with CKD -creatinine worsening, jumped from 1.55 to 2.11, likely 2/2 hypoperfusion/low BP and dehydration. Creatinine continues to improve with IV hydration, repeat 1.75 this am. BUN trending down 93 -> 72. -started on IVF, continue -avoid nephrotoxic agents -repeat BMP in am Intermittent hypotension - Hypotensive with BP 85/45. Started on IVF. BP improved. - Monitoring and keep map above 60 MDRO PSAE persistent colonization New PNA, MDRO PSAE, Steno malt 05/29 History of squamous cell carcinoma of the larynx now status post tracheostomy due to recurrent aspiration Spiculated right upper lobe pulmonary nodule, multiple R pulmonary nodules - ID following, Dr. Canchola, appreciate assistance with mgmt, Bld Cx from negative, Urine Cx from 05/29, negative, Sputum Cx on 05/29+ -Pseudomonas MDR, sensitive to only tobramycin. -Levaquin completed. Chronic or resolved: Multiple pulmonary nodules -Pulmonary also following -Dr. Pineda has discussed risk/ benefits of biopsy with patient and her son on 05/05 and at that time they opted to defer biopsy. -Moderate pleural effusion s/p thora on 05/23, Cultures neg. Depression/anxiety -Continue Lexapro and Wellbutrin, Continue Klonopin through the G-tube every 8 hours, Temazepam as needed for insomnia Gastroesophageal reflux disease -Continue PPI and lactobacillus through the G-tube to gravity, discussed with nurse, gauze underneath to prevent skin maceration. Diarrhea -Likely secondary to antibiotics, improved. C. difficile studies were negative on 05/25, Continue Lomotil. UTI, MDRO PDSAE: resolved with tx with Avycaz Chronic DVT of the right lower extremity -Holding Lovenox due to thrombocytopenia. Per heme oncology resume Lovenox if platelets are consistently above 75,000. Platelets now at 80 and consistently above 75 since 3 days ago. 06/30 Platelets 78, continue Lovenox. Will repeat CBC in am. R 1st digit of foot with increased erythema s/p trimming of ingrow toenail -Podiatry reccs from 06/01: Recommend triple antibiotic with Band-Aid to right hallux medial border. Right hip and right knee pain-patient complaining of right hip pain and knee pain which she has not complained before. No history of trauma, xray unremarkable. Possibly due to clot burden??. Continue pain control with [place] and Tylenol. Trial of Lidoderm patch and K thermia. Trial of Lyrica. DVT PPX: Lovenox as above. Code Status: DNR Discussed Condition With: patient, nursing staff, Dr. Beyer (4) Hypothyroidism Qualifiers: Hypothyroidism type: unspecified Qualified Code(s): E03.9 - Hypothyroidism, unspecified
[2018-06-30 11:01] LABS: Blast Cells 2 % (0-0); Eosinophils 10 % (0-4); Lymphocytes 10 % (9-44); Metamyelocytes 12 % (0-1); Monocytes 18 % (0-8); Myelocytes 8 % (0-0); Promyelocyte 2 % (0-0)
[2018-06-30 11:02] LABS: Dohle Bodies Present; Ovalocytes 1+; Toxic Vacuolation Present
[2018-06-30] MEDS ORDERED: fentaNYL Citrate Inj 250 MCG/5 ML Ampul ONE (15:53)
[2018-06-30] MEDS ORDERED: Iohexol 350 MG/ML 50 ML Vial (for Rad Diag) G-TUBE ONE (17:05)
--- NOTE | 2018-06-30 18:53 | P.PN ---
Subjective Interval history: had a new PEG ,G tube placed. Now sleepy. on a T bar 30 % and PM valve. Physical Exam Vital signs: Vital Signs 06/29/18 20:00 06/30/18 01:10 06/30/18 08:00 Temperature 97.7 F 98.6 F Pulse Rate 77 70 Respiratory Rate 18 16 Blood Pressure 106/53 L 113/57 L Pulse Oximetry 92 L 97 98 06/30/18 10:53 06/30/18 17:07 06/30/18 17:15 Temperature 97.7 F Pulse Rate 65 78 Respiratory Rate 20 16 Blood Pressure 106/64 113/68 Pulse Oximetry 96 94 L 98 06/30/18 17:30 06/30/18 18:00 06/30/18 18:30 Temperature 97.7 F 97.6 F 97.0 F L Pulse Rate 78 70 61 Respiratory Rate 16 16 16 Blood Pressure 113/68 110/62 86/45 L Pulse Oximetry 98 98 96 Intake & Output 06/29/18 06/30/18 06/30/18 18:59 06:59 18:59 Intake Total 2049 / 2049 100 / 100 Output Total 850 / 850 850 / 850 Balance 1200 / 1200 -750 / -750 Weight 50 kg Intake: IV 1100 / 1100 100 / 100 D5W/1/2 NS Inj 1,000 ML @ 50 1000 / 1000 mls/hr IV.CONT .Q20H [facility] Rx#: [id number] Rocephin Inj 1,000 MG In NS Inj 100 / 100 100 / 100 100 ML @ 200 mls/hr IV.SIG Q24H [facility] Rx#:[id number] Oral 200 / 200 0 / 0 Tube Feeding 0 / 0 Tube Irrigant 0 / 0 Water Bolus Amount 150 / 150 Other 600 / 600 Mass Transfusion Protocol 0 / 0 Output: Urine 0 / 0 Stool 0 / 0 Urine/Stool Mix 0 / 0 Emesis 0 / 0 Urine Amount (Catheter) 750 / 750 850 / 850 Indwelling Urethral Catheter 750 / 750 850 / 850 Gastric Drainage 100 / 100 Gastrojejunostomy Tube 100 / 100 Jejunostomy Tube 0 / 0 Other: Other Intake Source Saline Solution # Voids 0 # Incontinent Voids 0 # Urine Diapers 0 Date of Last Bowel Movement 06/28/18 06/28/18 06/29/18 # Bowel Movements 0 # Incontinent Bowel Movements 2 # [place] 0 Narrative: GENERAL: Thin chronically ill appearing female, not in any acute distress. Awake and alert. SKIN: Warm and dry. HEENT: Atraumatic. Normocephalic. Pupils equal and round. No scleral icterus. No injection or drainage. No nasal bleeding or discharge. Mucous membranes pink and moist. NECK: Trachea midline. Tracheostomy in place. CARDIOVASCULAR: Regular rate and rhythm. RESPIRATORY: No accessory muscle use. Clear to auscultation. Breath sounds equal bilaterally. GASTROINTESTINAL: Abdomen soft, nondistended. +tenderness noted around PEG site , no active leakage noted around site. MUSCULOSKELETAL: Extremities without clubbing, cyanosis, or edema. No obvious deformities. NEUROLOGICAL: Awake and alert. No obvious cranial nerve deficits. Able to move all extremities. PSYCHIATRIC: Appropriate mood and affect; insight and judgment normal. - Urinary Catheter Management Indwelling Urethral Catheter Cath placed during this visit: yes, but has since been removed by the nurse Reason for continuing: Acute urinary retention Insertion date: 06/26/18 Insertion time: 00:30 Removal date: 06/26/18 Removal time: 00:00 Results - Labs CBC & Chem 7: 06/30/18 09:06 06/30/18 09:06 Laboratory Results - last 24 hr 06/30/18 06/30/18 09:06 09:06 WBC 7.6 RBC 2.52 L Hgb 7.5 L Hct 21.5 L MCV 85.4 MCH 29.9 MCHC 35.0 RDW 15.6 Plt Count 78 L MPV 11.0 Prelim Diff (Auto) Manual diff required WBC Differential Manual diff final Seg Neuts % (Manual) 24 Band Neuts % (Manual) 14 H Lymphocytes % (Manual) 10 Monocytes % (Manual) 18 H Eosinophils % (Manual) 10 H Metamyelocytes % (Man) 12 H Myelocytes % (Man) 8 H Promyelocytes % (Man) 2 H Blast Cells % (Manual) 2 H Abs Neuts (Manual) 4.6 Differential Comment . Toxic Vacuolation Present H Dohle Bodies Present H Platelet Estimate Low L Platelet Morphology Enlarged H Ovalocytes 1+ H Sodium 140 Potassium 3.9 Chloride 102 Carbon Dioxide 26.6 Anion Gap 11 BUN 72 H Creatinine 1.75 H Estimated GFR 29 L Random Glucose 90 Calcium 8.1 L Assessment and Plan - Assessment (1) Respiratory failure Code(s): J96.90 - Respiratory failure, unspecified, unspecified whether with hypoxia or hypercapnia Status: Acute (2) Pneumonia Code(s): J18.9 - Pneumonia, unspecified organism Status: Acute (3) Status post trachelectomy Code(s): Z90.710 - Acquired absence of both cervix and uterus Status: Acute (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 Cont T collar at 28 % FIO2 . 2. Cont nebs with albuterol qid. PRN 3. Start tube feeds at 30 CC 4. Cont Levsin .125 mg qid prn. 5. CXR in am. 6. CBC,BMP in am 7. PM valve to trach daytime up to 6 hrs.
[2018-07-01] MEDS: Dextrose 5%/NaCl 0.45% Inj 1,000 ML IV.CONT SCH ×2 (03:38→22:23)
[2018-07-01] MEDS: Hyoscyamine Liq Drops 0.125 MG/ML 15 ML Bottle SL SCH ×4 (04:10→22:20)
[2018-07-01] MEDS: Levothyroxine 150 MCG Tablet J-TUBE SCH (05:53)
[2018-07-01 07:50] LABS: Hematocrit 22.7 % (35.0-46.0); Mean Corpuscular HGB Conc 35.1 % (32.0-36.0); Mean Corpuscular Hemoglobin 29.8 pg (27.0-34.0); Mean Platelet Volume 11.7 fL (7.0-11.0); Platelet Count 86 th/mm3 (150-450); Red Blood Count 2.67 mil/mm3 (4.00-5.30); Red Cell Distribution Width 15.1 % (11.6-17.2); White Blood Count 8.2 th/mm3 (4.0-11.0)
[2018-07-01 08:02] LABS: Carbon Dioxide 25.5 meq/L (21.0-32.0); Potassium 3.8 meq/L (3.5-5.1)
[2018-07-01] MEDS: Loperamide Liq 2 MG/10 ML UDC J-TUBE SCH ×4 (08:53→20:47)
[2018-07-01] MEDS: Heparin Central Flush 100 UNIT/ML 5 ML Vial IV.FLUSH SCH (08:53)
[2018-07-01] MEDS: Lactobacillus Acidophilus/L. Spores Tablet J-TUBE SCH ×3 (08:54→17:55)
[2018-07-01] MEDS: Lidocaine 5% Patch T-DERMAL SCH (08:54)
[2018-07-01] MEDS: buPROPion 75 MG Tablet J-TUBE SCH ×2 (08:56→20:50)
[2018-07-01] MEDS: Ascorbic Acid 500 MG Tablet J-TUBE SCH ×2 (08:56→20:49)
[2018-07-01] MEDS: Pregabalin 25 MG Capsule G-TUBE SCH ×2 (08:57→20:47)
[2018-07-01 09:23] LABS: Blast Cells 10 % (0-0); Eosinophils 3 % (0-4); Lymphocytes 12 % (9-44); Metamyelocytes 8 % (0-1); Monocytes 21 % (0-8); Myelocytes 15 % (0-0); Promyelocyte 1 % (0-0)
--- NOTE | 2018-07-01 09:31 | IR ---
EXAM DATE: 06/30/2018 5:15 PM EST AGE/SEX: 73 years / Female INDICATIONS: Patient with a history of laryngeal carcinoma with a leaking GJ tube. CLINICAL DATA: This is the patient's subsequent encounter. Patient reports that signs and symptoms h ave been present for 1 day and indicates a pain score of 6/10. MEDICAL/SURGICAL HISTORY: . COPD Anemia GERD Supraglottic carcinoma Rendon's esophagus . Radi ation therapy Cholecystectomy Hernia repair Tracheostomy COMPARISON: No prior exams available for comparison. FLUORO TIME (min): 2.49 IMAGE SERIES: 1 SEDATION TIME (min): 30 CONTRAST (cc): 30cc Omnipaque (iohexol) 350 MEDICATION(S): 1mg midazolam (Versed) IV 150mcg fentanyl (Sublimaze) IV DEVICE(S): 22 Wallisian Transgastric tube . . PROCEDURE: 1. Fluoroscopically guided gastrojejunostomy tube exchange. 2. Conscious sedation with continuous EKG and oximetry monitoring. The risks, benefits and alternatives to the procedure were explained and verbal and written consent w as obtained. The site was prepped in sterile fashion. Full sterile technique was used, including ca p, mask, sterile gloves and gown and a large sterile sheet. Hand hygiene and 2% chlorhexidine and/or betadine/alcohol prep was utilized per protocol for cutaneous antisepsis. The skin and subcutaneous tissues were infiltrated with local anesthetic solution. With fluoroscopic guidance a guidewire was passed through the previous gastrojejunostomy tube and a f resh tube was placed over the guidewire. The balloon was inflated with appropriate volume of saline. Injection of positive contrast demonstrates good position of the gastric and jejunal lumens of the tube. Conscious sedation was performed with the prescribed dosages and duration as above in the presence of an independent trained radiology nurse to assist in the monitoring of the patient. EKG and oximetry remained stable throughout the procedure. The patient tolerated the procedure well and there were n o complications. The patient was sent to post anesthesia recovery in stable condition. CONCLUSION: Uncomplicated gastrojejunostomy tube exchange as above. Electronically signed by: Gee Pinto MD 07/01/2018 9:29 AM EST
--- NOTE | 2018-07-01 11:04 | P.PN ---
Subjective Interval history: Patient seen and examined. Patient s/p GJ tube replacement yesterday. Patient having significant amount drainage around PEG site. TF on hold. She has low blood pressure. She says she still has right leg pain that starts in the right hip and radiates down becoming less painful towards the foot. She says the lidoderm patches help some. Physical Exam Vital signs: Vital Signs 06/30/18 17:07 06/30/18 17:15 06/30/18 17:30 Temperature 97.7 F 97.7 F Pulse Rate 65 78 78 Respiratory Rate 20 16 16 Blood Pressure 106/64 113/68 113/68 Pulse Oximetry 94 L 98 98 06/30/18 18:00 06/30/18 18:30 06/30/18 20:00 Temperature 97.6 F 97.0 F L 97.6 F Pulse Rate 70 61 57 L Respiratory Rate 16 16 16 Blood Pressure 110/62 86/45 L 106/49 L Pulse Oximetry 98 96 96 07/01/18 05:22 07/01/18 08:00 07/01/18 09:40 Temperature 97.6 F Pulse Rate 66 Respiratory Rate 16 Blood Pressure 80/42 L Pulse Oximetry 97 98 Intake & Output 06/30/18 07/01/18 07/01/18 18:59 06:59 18:59 Intake Total 540 / 540 1320 / 1320 Output Total 850 / 850 500 / 500 Balance -310 / -310 820 / 820 Weight 48.3 kg Intake: IV 1100 / 1100 D5W/1/2 NS Inj 1,000 ML @ 50 1000 / 1000 mls/hr IV.CONT .Q20H ANN Rx#: [id number] Rocephin Inj 1,000 MG In NS Inj 100 / 100 100 ML @ 200 mls/hr IV.SIG Q24H ANN Rx#:[id number] Oral 0 / 0 Tube Feeding 0 / 0 70 / 70 Tube Irrigant 0 / 0 150 / 150 Water Bolus Amount 0 / 0 Other 540 / 540 Mass Transfusion Protocol 0 / 0 Output: Urine 0 / 0 Stool 0 / 0 Urine/Stool Mix 0 / 0 Emesis 0 / 0 Urine Amount (Catheter) 650 / 650 400 / 400 Indwelling Urethral Catheter 650 / 650 400 / 400 Gastric Drainage 200 / 200 100 / 100 Gastrojejunostomy Tube 200 / 200 100 / 100 Jejunostomy Tube 0 / 0 Other: Other Intake Source Saline Solution # Voids 0 # Incontinent Voids 0 # Urine Diapers 0 Date of Last Bowel Movement 06/30/18 06/29/18 06/29/18 # Bowel Movements 0 1 # Incontinent Bowel Movements 1 # [place] 0 Narrative: GENERAL: Thin chronically ill appearing female, not in any acute distress. Awake and alert. Lying on left side in bed. SKIN: Warm and dry. HEENT: Atraumatic. Normocephalic. Pupils equal and round. No scleral icterus. No injection or drainage. No nasal bleeding or discharge. Mucous membranes pink and moist. NECK: Trachea midline. Tracheostomy in place. CARDIOVASCULAR: Regular rate and rhythm. RESPIRATORY: No accessory muscle use. Clear to auscultation. Breath sounds equal bilaterally. GASTROINTESTINAL: Abdomen soft, nondistended. +tenderness noted around PEG site with surrounding erythema, +leakage around the site. MUSCULOSKELETAL: Extremities without clubbing, cyanosis, or edema. No obvious deformities. +tenderness to palpation over right hip greater trochanteric area and lateral aspect of right knee. NEUROLOGICAL: Awake and alert. No obvious cranial nerve deficits. Able to move all extremities. PSYCHIATRIC: Appropriate mood and affect; insight and judgment normal. - Urinary Catheter Management Indwelling Urethral Catheter Cath placed during this visit: yes, but has since been removed by the nurse Reason for continuing: Acute urinary retention Insertion date: 06/26/18 Insertion time: 00:30 Removal date: 06/26/18 Removal time: 00:00 Results - Labs CBC & Chem 7: 07/01/18 06:45 07/01/18 06:45 Laboratory Results - last 24 hr 07/01/18 07/01/18 06:45 06:45 WBC 8.2 RBC 2.67 L Hgb 8.0 L Hct 22.7 L MCV 85.0 MCH 29.8 MCHC 35.1 RDW 15.1 Plt Count 86 L MPV 11.7 H Prelim Diff (Auto) Manual diff required WBC Differential Manual diff final Seg Neuts % (Manual) 18 Band Neuts % (Manual) 12 H Lymphocytes % (Manual) 12 Monocytes % (Manual) 21 H Eosinophils % (Manual) 3 Metamyelocytes % (Man) 8 H Myelocytes % (Man) 15 H Promyelocytes % (Man) 1 H Blast Cells % (Manual) 10 H Abs Neuts (Manual) 4.4 Differential Comment . Platelet Estimate Low L Platelet Morphology Enlarged H Sodium 140 Potassium 3.8 Chloride 103 Carbon Dioxide 25.5 Anion Gap 12 BUN 60 H Creatinine 1.63 H Estimated GFR 31 L Random Glucose 96 Calcium 8.0 L - Imaging Impressions Tube Change 06/30/18 00:00 CONCLUSION: Uncomplicated gastrojejunostomy tube exchange as above. Assessment and Plan - Assessment (1) Pneumonia Code(s): J18.9 - Pneumonia, unspecified organism Status: Acute (2) GERD (gastroesophageal reflux disease) Code(s): K21.9 - Gastro-esophageal reflux disease without esophagitis Status: Chronic (3) DVT (deep venous thrombosis) Code(s): I82.409 - Acute embolism and thrombosis of unspecified deep veins of unspecified lower extremity Status: Acute (4) Hypothyroidism Code(s): E03.9 - Hypothyroidism, unspecified Status: Chronic (5) Laryngeal squamous cell carcinoma Code(s): C32.9 - Malignant neoplasm of larynx, unspecified Status: Chronic (6) Protein-calorie malnutrition, severe Code(s): E43 - Unspecified severe protein-calorie malnutrition Status: Chronic - Plan This is a 73-year-old female with 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 The rapid response was called and the patient was transferred to ICU where she was placed on 60% oxygenation via trach collar. CCM reconsulted 05/23 due to hypotension. Currently managed for recurrent respiratory infections with MDRO managed by ID. CT chest does demonstrate a moderate left pleural effusion with left lower lobe atelectasis s/p thoracocentesis. Patient was again sent over to the ICU on 05/29 for acute pulmonary edema with further fever spikes. Patient underwent diuresis and was made a no code, was eventually stabilized and transition back to hospitalist care. Acute: GJ tube with leakage Soft tissue mass thru PEG site - s/p cauterization by Dr. Bautista. GJ tube not in proper position. He was able to deflate the balloon and place in proper position. 1800cc of yellow bilious drainage from GJ tube. - s/p IR GJ tube placement 06/30. Still with significant leakage around site. Nursing staff to contacted IR who recommended patient lay on right side and place to suction. Consider surgery consult if no improvement. RINA BUCHANAN for palliative care - patient voiced she may not wish to have any further intervention for - started on SBP prophylaxis with IV Ceftriaxone, continue Pancytopenia d/t myelodysplastic syndrome Per Heme/Onc: pancytopenia is due to MDS. She is not a candidate for chemo. Recommendation for pancytopenia is transfusion of PRBC (if Hg <7) and plat(if plat <15) support. Hx of DVT - anticoagulation recommended with platelet count consistently greater than 75,000; otherwise hold. - platelets holding steady - Hgb stable for past several days. - repeat CBC in next 2-3 days Acute kidney injury with CKD - creatinine worsening, jumped from 1.55 to 2.11, likely 2/2 hypoperfusion/low BP and dehydration. Creatinine continues to improve with IV hydration, repeat 1.63 this am. BUN trending down 93 -> 60. - started on IVF, continue - avoid nephrotoxic agents - continue to monitor kidney function as indicated Intermittent hypotension - Hypotensive with BP 80/42 - Give IVF bolus - continue on continuous IV fluid hydration at increased rate - Monitoring and keep map above 60 MDRO PSAE persistent colonization New PNA, MDRO PSAE, Steno malt 05/29 History of squamous cell carcinoma of the larynx now status post tracheostomy due to recurrent aspiration Spiculated right upper lobe pulmonary nodule, multiple R pulmonary nodules - ID following, Dr. Canchola, appreciate assistance with mgmt, Bld Cx from negative, Urine Cx from 05/29, negative, Sputum Cx on 05/29+ - Pseudomonas MDR, sensitive to only tobramycin. - Levaquin completed. Chronic or resolved: Multiple pulmonary nodules -Pulmonary also following -Dr. Pineda has discussed risk/ benefits of biopsy with patient and her son on 05/05 and at that time they opted to defer biopsy. -Moderate pleural effusion s/p thora on 05/23, Cultures neg. Depression/anxiety -Continue Lexapro and Wellbutrin, Continue Klonopin through the G-tube every 8 hours, Temazepam as needed for insomnia Gastroesophageal reflux disease -Continue PPI and lactobacillus through the G-tube to gravity, discussed with nurse, gauze underneath to prevent skin maceration. Diarrhea -Likely secondary to antibiotics, improved. C. difficile studies were negative on 05/25, Continue Lomotil. UTI, MDRO PDSAE: resolved with tx with Avycaz Chronic DVT of the right lower extremity -Holding Lovenox due to thrombocytopenia. Per heme oncology resume Lovenox if platelets are consistently above 75,000. Platelets have been stable, continue on Lovenox R 1st digit of foot with increased erythema s/p trimming of ingrow toenail -Podiatry reccs from 06/01: Recommend triple antibiotic with Band-Aid to right hallux medial border. Right hip and right knee pain-patient complaining of right hip pain and knee pain which she has not complained before. No history of trauma, xray unremarkable. Possibly due to clot burden??. Continue pain control with [place] and Tylenol. Trial of Lidoderm patch and K thermia. Trial of Lyrica - will increase dose and monitor response. DVT PPX: Lovenox as above. Code Status: DNR Discussed Condition With: patient, nursing staff, Jairon Bautista (4) Hypothyroidism Qualifiers: Hypothyroidism type: unspecified Qualified Code(s): E03.9 - Hypothyroidism, unspecified
[2018-07-01] MEDS ORDERED: Sodium Chlor 0.9% Inj 500 ML IV.SIG SCH (12:00)
--- NOTE | 2018-07-01 13:32 | P.PNPAL ---
Reason for Visit Reason for visit: a. To assist with evaluation and management of symptoms including: dyspnea, pain, debility. b. To assist medical decision maker(s) with: better understanding of current medical conditions; weighing benefits/burdens of medical treatment options; making medical treatment decisions. Subjective Subjective/Interval History: Patient seen and examined in room. Also present Marcy Caro LCSW. She is awake and alert. She remembers me from prior visits. Trach to oxygen via trach collar. PM valve in place. She verbalizes frustration with continuous leaking of GJ tube since it was exchanged on 07/02/18. G tube connected to suction with brownish drainage noted. Greenish yellow drainage noted around insertion site. Patient tells me the skin is burning from leakage. Tube feeds are on hold. Radiology has been notified of continued GJ tube leaking despite change. Nurse indicates their recommendation for keeping patient on right side, G-tube to suction, hold TF and monitor. She remains hypotensive, BP 96/50 post saline bolus. Remains on continuous IV fluids. Afebrile. Labs: * WBC 8.2, hemoglobin 8.0, hematocrit 22.7, platelets 86 * creatinine 1.63, BUN 60, GFR 96 Patient reports constant achy pain in her back and legs. Currently rates pain 8/ 10. She also reports pain at GJ tube insertion site secondary to skin irritation and recent procedure. She asks that I schedule pain medication because it often takes the nurses too long to bring meds. Spoke with JULIUS Kat and son who both agree with plan for pain management. Palliative care will follow up again 07/02 to further clarify goals of medical treatment and to follow up on pain control. Family/Friend Interactions: Met with patient at bedside, she verbalizes frustration and that she may need to "put an end" to all these procedures. She is not sure she wants to keep going through all of this. She tells me she is getting tired of procedures that are not helping. She is willing to monitor for another 24 hours. We discussed that we may not be able to fix the leaking, the risk of infection, skin breakdown, inability to continue artificial nutrition and risk of further decline or related to these issues. We talked about her options of possible surgical consultation for another tube placement. She is not sure she is wanting another procedure. I also talked to her about the option to consider transition to comfort measures with hospice support. She is not yet sure what she wants to do. I offered to call her son so they could speak, she does not feel like talking to him today. SHe did give me permission to call him and provide update on situation and our conversation today.She asks if I will schedule pain medication as her pain is "always there and the nurses don't always come right away when asked." Called her son Quinton to provide medical update, review plan for pain management, labs results and concerns regarding GJ tube and possible plan for consultation of Jejunostomy tube placement if she does not have improvement in the next 24- 48 hours. Son agreed to Proctor every 6 hours ATC for a few days. He will attempt to speak with the patient later today to discuss options. He tells me he would like these issues addressed sooner rather than later. He tells me he wants to honor his mother's wishes whatever she decides. He appreciates the call and update. Advance Directives Living Will: Copy in medical record Health Care Surrogate: Copy in medical record Advance Directives Date on File: 02/08/18 Health Care Surrogate Name and Number: Alireza Whitten, son/medical power of mission commander: [phone] Documented care wishes:: Patient directs that her healthcare providers and others involved in her care provide, withhold or withdraw treatment in accordance with her wish to not prolong life if she has an incurable and irreversible condition that will result in her within a relatively short time or if she becomes unconscious and to a reasonable degree of medical certainty will not regain consciousness were the likely results and burdens of treatment would outweigh the expected benefits. She requests also that treatment for alleviation of pain or discomfort be provided at all times, even if it hastens her . Additionally she indicates that in the event of severe and irreversible or terminal illness that she wishes for the priority on keeping her comfortable and no aggressive therapy or intervention be done unless expressly approved by Alireza Whitten her son. She does not wish to donate any organs after her . Significant change in goals:: GOALS - Goals aggressive short of NO CODE, she does not want tracheostomy changed out. Patient is not sure if she wants to consider additional surgical intervention for GJ tube leakage issues. She is considering options including possible J tube placement vs comfort measures. Patient and son do not want comfort meds withheld for hypotension or other reasons. Objective Vital Signs: Vital Signs 06/30/18 17:07 06/30/18 17:15 06/30/18 17:30 Temperature 97.7 F 97.7 F Pulse Rate 65 78 78 Respiratory Rate 20 16 16 Blood Pressure 106/64 113/68 113/68 Pulse Oximetry 94 L 98 98 06/30/18 18:00 06/30/18 18:30 06/30/18 20:00 Temperature 97.6 F 97.0 F L 97.6 F Pulse Rate 70 61 57 L Respiratory Rate 16 16 16 Blood Pressure 110/62 86/45 L 106/49 L Pulse Oximetry 98 96 96 07/01/18 05:22 07/01/18 08:00 07/01/18 09:40 Temperature 97.6 F Pulse Rate 66 Respiratory Rate 16 Blood Pressure 80/42 L Pulse Oximetry 97 98 07/01/18 12:06 Temperature 97.6 F Pulse Rate 70 Respiratory Rate 18 Blood Pressure 96/50 L Pulse Oximetry Intake & Output 06/30/18 07/01/18 07/01/18 18:59 06:59 18:59 Intake Total 540 / 540 1320 / 1320 500 / 500 Output Total 850 / 850 500 / 500 Balance -310 / -310 820 / 820 500 / 500 Weight 48.3 kg Intake: IV 1100 / 1100 500 / 500 D5W/1/2 NS Inj 1,000 ML @ 50 1000 / 1000 mls/hr IV.CONT .Q20H ANN Rx#: [id number] NS Inj 500 ML @ 1000 mls/hr IV. 500 / 500 SIG BOLUS ANN Rx#:[id number] Rocephin Inj 1,000 MG In NS Inj 100 / 100 100 ML @ 200 mls/hr IV.SIG Q24H [facility] Rx#:[id number] Oral 0 / 0 Tube Feeding 0 / 0 70 / 70 Tube Irrigant 0 / 0 150 / 150 Water Bolus Amount 0 / 0 Other 540 / 540 Mass Transfusion Protocol 0 / 0 Output: Urine 0 / 0 Stool 0 / 0 Urine/Stool Mix 0 / 0 Emesis 0 / 0 Urine Amount (Catheter) 650 / 650 400 / 400 Indwelling Urethral Catheter 650 / 650 400 / 400 Gastric Drainage 200 / 200 100 / 100 Gastrojejunostomy Tube 200 / 200 100 / 100 Jejunostomy Tube 0 / 0 Other: Other Intake Source Saline Solution # Voids 0 # Incontinent Voids 0 # Urine Diapers 0 Date of Last Bowel Movement 06/30/18 06/29/18 06/29/18 # Bowel Movements 0 1 # Incontinent Bowel Movements 1 # Emeses 0 Physical Exam: CONSTITUTIONAL/GENERAL: Chronically ill looking patient who appears older than stated age with a tracheostomy TUBES/LINES: oxygen via trach collar to trach, PICC line, GJ tube SKIN: Pale. Afebrile. No jaundice, rashes, or lesions. Healing wound to right great toe EYES: Pupils equal. Has glasses on. CARDIOVASCULAR: S1, S2 normal. RESPIRATORY/CHEST: diminished lung sounds bilaterally. No wheezing, no rhonchi. GASTROINTESTINAL: Abdomen soft, non-tender, nondistended. Guarding. GJ tube site with greenish yellow drainage noted. MUSCULOSKELETAL: Extremities without clubbing, cyanosis. Edema noted to right inner knee NEUROLOGICAL: Awake and alert. Oriented. Follows commands with all 4 extremities. PSYCHIATRIC: Calm. Denies anxiety. Diagnostic Tests Laboratory: Laboratory Results - last 72 hr 06/29/18 06/29/18 06/30/18 09:30 09:30 09:06 WBC 8.6 7.6 RBC 2.57 L 2.52 L Hgb 7.5 L 7.5 L Hct 22.5 L 21.5 L MCV 87.7 85.4 MCH 29.2 29.9 MCHC 33.3 35.0 RDW 15.4 15.6 Plt Count 72 L 78 L MPV 10.9 11.0 Prelim Diff (Auto) Manual diff required Manual diff required WBC Differential Manual diff final Manual diff final Seg Neuts % (Manual) 15 L 24 Band Neuts % (Manual) 13 H 14 H Lymphocytes % (Manual) 23 10 Monocytes % (Manual) 9 H 18 H Eosinophils % (Manual) 4 10 H Metamyelocytes % (Man) 6 H 12 H Myelocytes % (Man) 19 H 8 H Promyelocytes % (Man) 2 H Blast Cells % (Manual) 11 H 2 H Abs Neuts (Manual) 4.6 4.6 Nucleated RBCs/100 WBC 1 H Differential Comment . . Toxic Vacuolation Present H Dohle Bodies Present H Platelet Estimate Low L Low L Platelet Morphology Enlarged H Enlarged H RBC Morphology Normal Ovalocytes 1+ H Sodium 141 Potassium 4.0 Chloride 101 Carbon Dioxide 29.8 Anion Gap 10 BUN 93 H Creatinine 2.07 H Estimated GFR 24 L Random Glucose 98 Calcium 8.1 L 06/30/18 07/01/18 07/01/18 09:06 06:45 06:45 WBC 8.2 RBC 2.67 L Hgb 8.0 L Hct 22.7 L MCV 85.0 MCH 29.8 MCHC 35.1 RDW 15.1 Plt Count 86 L MPV 11.7 H Prelim Diff (Auto) Manual diff required WBC Differential Manual diff final Seg Neuts % (Manual) 18 Band Neuts % (Manual) 12 H Lymphocytes % (Manual) 12 Monocytes % (Manual) 21 H Eosinophils % (Manual) 3 Metamyelocytes % (Man) 8 H Myelocytes % (Man) 15 H Promyelocytes % (Man) 1 H Blast Cells % (Manual) 10 H Abs Neuts (Manual) 4.4 Nucleated RBCs/100 WBC Differential Comment . Toxic Vacuolation Dohle Bodies Platelet Estimate Low L Platelet Morphology Enlarged H RBC Morphology Ovalocytes Sodium 140 140 Potassium 3.9 3.8 Chloride 102 103 Carbon Dioxide 26.6 25.5 Anion Gap 11 12 BUN 72 H 60 H Creatinine 1.75 H 1.63 H Estimated GFR 29 L 31 L Random Glucose 90 96 Calcium 8.1 L 8.0 L Result Diagrams: 07/01/18 06:45 07/01/18 06:45 Imaging: Abdomen/Bladder Ultrasound 05/06/18 00:00 CONCLUSION: 1. Increased renal echogenicity characteristic of medical renal disease. Small cyst right kidney. Dependent debris in the bladder. Tube Check 05/20/18 00:00 CONCLUSION: 1. Uncomplicated tube injection as above. The gastrojejunostomy tube is in good position. If there is concern for duodenal stricture resulting in a functional obstruction consideration could be made to the administration of barium either orally or through the gastric lumen of the tube to assess for any obstruction. Thin iodinated contrast would be limited in trying to assess this. Upper GI Series 05/21/18 00:00 CONCLUSION: No evidence of gastric outlet or duodenal obstruction. Abdomen/Pelvis CT 05/22/18 00:00 CONCLUSION: 1. Diverticulosis without perceptible diverticulitis or other acute inflammatory changes. 2. The gastrojejunostomy tube appears appropriately positioned. No perceptible associated acute complication. 3. There are scattered tiny nonobstructing stones of both kidneys and a small cyst on the right. 4. Small sliding-type hiatal hernia again seen. Chest CT 05/22/18 16:12 CONCLUSION: 1. Moderate left pleural effusion with atelectasis of the left lower lobe. 2. Mild right base atelectasis, improved compared to prior CT. 3. Right upper lobe pulmonary nodules are stable but the larger one remains concerning for primary bronchogenic carcinoma. Chest Ultrasound 05/23/18 00:00 CONCLUSION: 1. Lastly 360 cc of pleural effusion on the left. This does not appear loculated or complex. Site was marked Thoracentesis Ultrasound 05/23/18 00:00 CONCLUSION: Uncomplicated ultrasound-guided left chest thoracentesis as above. Extremity Arterial Study 05/24/18 00:00 CONCLUSION: 1. Severe reduction of the ABIs bilaterally. Chest CTA 05/26/18 00:00 CONCLUSION: 1. No evidence for pulmonary embolism. 2. Bibasilar consolidation. 3. Prominent nodule in the right upper lobe again seen measuring 13 mm concerning for malignancy. 4. Patchy opacities in the lingula and left lower lobe likely infectious. Venous Doppler Study 05/30/18 00:00 CONCLUSION: Significant interval recanalization of prior extensive right leg DVT Left leg remains normal in appearance. Hip X-Ray 06/26/18 00:00 CONCLUSION: Limited study. No definite bony fracture or joint dislocation. Knee X-Ray 06/26/18 00:00 CONCLUSION: Unremarkable exam for patient's age. Chest X-Ray 06/27/18 00:00 CONCLUSION: No change from the prior study. Abdomen X-Ray 06/27/18 18:35 CONCLUSION: Within normal limits. No evidence of gastrojejunostomy tube leak. Tube Change 06/30/18 00:00 CONCLUSION: Uncomplicated gastrojejunostomy tube exchange as above. 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 Patient now has a tracheostomy. (4) Debility 0-10 Scale: Unable to quantify Pertinent Non-Medical Issues: Psychosocial: Patient is originally from [place]. She has 4 brothers and 2 sisters. She moved to [place] approximately 40 years ago. Patient was for 18 years and then . She and her had 3 sons (Alireza, Sagar and Cameron). Alireza is a physicians retail assistant store manager and lives in [place]. Adalid and Cameron live in [place]. Per patient, Cameron was born with "autism" and live in a fdc Spiritual: Worship Legal: Pt's son Alireza is medical POA. Ethical issues impacting care: none Important Contacts: medical POA son Alireza Whitten , cell [phone] Prognosis: This is a 73 yo lady with hx laryngeal ca diagnosed 2015 s/p chemo and radiation who [facility] in [place] [facility]. She initially presented in January with weakness, dysphagia, weight loss, anemia. Chest CT showing enlarging spiculated nodule, 2 additional right lung nodules. She has since had tracheostomy, GJ, and numerous complications, including PNA, need for GJ replacement. She is likely to continue to decline and encounter complications and setbacks as she deconditions. Code Status: No Code DNR (DNR/DNI does NOT want to go back on mech vent.) Plan: * LEGAL DECISION MAKER - Pt is capacitated to make medical decisions. Should she become incapacitated, she has designated her son Alireza Whitten as medical POA. * NO CODE - DNR/DNI does NOT want to go back on mech vent. * GOALS - Goals aggressive short of NO CODE, she does not want tracheostomy changed out. Patient is not sure if she wants to consider additional surgical intervention for GJ tube leakage issues. She is considering options including possible J tube placement vs comfort measures. Medical update provided to son. Patient and son do not want comfort meds withheld for hypotension or other reasons. Palliative care will follow up 07/02/18 to follow up on pain control and further clarification of goals of medical treatment. * Spoke with JULIUS Kat. Spoke with nurses, Rolando. * Palliative care will continue to follow during hospital course as condition evolves, to assist patient/decision-maker with understanding of medical conditions, weighing benefits/burdens of treatment options, for clarification of goals of treatment. Additionally will assist with any symptoms of palliative concern SYMPTOMS - * pain - risk for pain. multifactorial, coccygeal ulcer, mult lines and catheters, tubes. Has PRN Proctor and PRN Roxanol 5mg q4h for breakthrough pain. Sparing need. Will continue to monitor need and effect. Endorsing pain to GJ tube site and right leg, hip and back. Note: please call son prior to making any medication adjustments. Added Proctor 5/325 mg every 6 hours ATC per patient and son request for comfort. * dyspnea - hx laryngeal ca, has trach, now with PNA. BCX pending. denies feeling SOB today. On oxygen via t-piece, PM valve as needed. Duonebs as needed. has PRN meds for anxiety. Denies anxiety during my visit today. * depression/anxiety - multifactorial. pt mildly anxious, on Lexapro, Wellbutrin. Has clonazepam 0.5 mg q8h PRN. Has PRN temazepam for insomnia. * debility- multifactorial. 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 respiratory status unlikely to allow for aggressive therapy and rehab. weak. PT following. no further recs. Attestation Attestation: To help prompt me to consider important information that might be impacting today's encounter and assessment, information from prior notes written by myself or my colleagues may have been "brought forward" into today's note. My signature on this note, however, is an attestation that I personally performed the exam, history, and/or decision-making noted today, and, unless otherwise indicated, the interactions with patient, family, and staff as well as the review of records all occurred today. I also attest that the listed assessment and stated plan reflect my best clinical judgment today based on the combination of historical information, prior notes, and today's exam/ interactions. When time spent is documented, it refers only to time spent today by the signer, or if indicated, combined time spent today by collaborating physician/nurse practitioner.
--- NOTE | 2018-07-01 19:46 | P.PN ---
Subjective Interval history: Awake and stable. On a T bar. 28 %. Had G J tube done Physical Exam Vital signs: Vital Signs 06/30/18 20:00 07/01/18 05:22 07/01/18 08:00 Temperature 97.6 F 97.6 F Pulse Rate 57 L 66 Respiratory Rate 16 16 Blood Pressure 106/49 L 80/42 L Pulse Oximetry 96 97 07/01/18 09:40 07/01/18 12:06 07/01/18 16:00 Temperature 97.6 F 97.1 F L Pulse Rate 70 88 Respiratory Rate 18 20 Blood Pressure 96/50 L 85/49 L Pulse Oximetry 98 96 Intake & Output 07/01/18 07/01/18 07/02/18 06:59 18:59 06:59 Intake Total 1320 / 1320 700 / 700 Output Total 500 / 500 900 / 900 Balance 820 / 820 -200 / -200 Weight 48.3 kg Intake: IV 1100 / 1100 500 / 500 D5W/1/2 NS Inj 1,000 ML @ 50 1000 / 1000 mls/hr IV.CONT .Q20H ANN Rx#: [id number] NS Inj 500 ML @ 1000 mls/hr IV. 500 / 500 SIG BOLUS ANN Rx#:[id number] Rocephin Inj 1,000 MG In NS Inj 100 / 100 100 ML @ 200 mls/hr IV.SIG Q24H ANN Rx#:[id number] Tube Feeding 70 / 70 Tube Irrigant 150 / 150 200 / 200 Output: Urine Amount (Catheter) 400 / 400 450 / 450 Indwelling Urethral Catheter 400 / 400 450 / 450 Gastric Drainage 100 / 100 450 / 450 Gastrojejunostomy Tube 100 / 100 450 / 450 Other: Date of Last Bowel Movement 06/29/18 06/29/18 # Bowel Movements 1 Narrative: GENERAL: Thin chronically ill appearing female, not in any acute distress. Awake and alert. SKIN: Warm and dry. HEENT: Atraumatic. Normocephalic. Pupils equal and round. No scleral icterus. No injection or drainage. No nasal bleeding or discharge. Mucous membranes pink and moist. NECK: Trachea midline. Tracheostomy in place. CARDIOVASCULAR: Regular rate and rhythm. RESPIRATORY: No accessory muscle use. Clear to auscultation. Breath sounds equal bilaterally. GASTROINTESTINAL: Abdomen soft, nondistended. +tenderness noted around PEG site with surrounding erythema, +leakage around the site. MUSCULOSKELETAL: Extremities without clubbing, cyanosis, or edema. No obvious deformities. +tenderness to palpation over right hip greater trochanteric area and lateral aspect of right knee. NEUROLOGICAL: Awake and alert. No obvious cranial nerve deficits. Able to move all extremities. PSYCHIATRIC: Appropriate mood and affect; insight and judgment normal. - Urinary Catheter Management Indwelling Urethral Catheter Cath placed during this visit: yes, but has since been removed by the nurse Reason for continuing: Acute urinary retention Insertion date: 06/26/18 Insertion time: 00:30 Removal date: 06/26/18 Removal time: 00:00 Results - Labs CBC & Chem 7: 07/01/18 06:45 07/01/18 06:45 Laboratory Results - last 24 hr 07/01/18 07/01/18 06:45 06:45 WBC 8.2 RBC 2.67 L Hgb 8.0 L Hct 22.7 L MCV 85.0 MCH 29.8 MCHC 35.1 RDW 15.1 Plt Count 86 L MPV 11.7 H Prelim Diff (Auto) Manual diff required WBC Differential Manual diff final Seg Neuts % (Manual) 18 Band Neuts % (Manual) 12 H Lymphocytes % (Manual) 12 Monocytes % (Manual) 21 H Eosinophils % (Manual) 3 Metamyelocytes % (Man) 8 H Myelocytes % (Man) 15 H Promyelocytes % (Man) 1 H Blast Cells % (Manual) 10 H Abs Neuts (Manual) 4.4 Differential Comment . Platelet Estimate Low L Platelet Morphology Enlarged H Sodium 140 Potassium 3.8 Chloride 103 Carbon Dioxide 25.5 Anion Gap 12 BUN 60 H Creatinine 1.63 H Estimated GFR 31 L Random Glucose 96 Calcium 8.0 L - Imaging Impressions Tube Change 06/30/18 00:00 CONCLUSION: Uncomplicated gastrojejunostomy tube exchange as above. 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 Cont T collar at 28 % FIO2 . 2. Cont nebs with albuterol qid. PRN 3. Start tube feeds at 30 CC 4. Cont Levsin .125 mg qid prn. 5. J tube feeds at 40 CC 6. CBC,BMP in am 7. PM valve to trach daytime up to 6 hrs.
[2018-07-02] MEDS: Hyoscyamine Liq Drops 0.125 MG/ML 15 ML Bottle SL SCH ×4 (04:34→21:48)
[2018-07-02] MEDS: Levothyroxine 150 MCG Tablet J-TUBE SCH (05:14)
[2018-07-02] MEDS: Morphine Sulfate Oral Liq 10 MG/0.5 ML Syringe SL PRN ×2 (05:20→21:57)
[2018-07-02] MEDS: Lactobacillus Acidophilus/L. Spores Tablet J-TUBE SCH ×3 (08:30→17:25)
[2018-07-02] MEDS: Pregabalin 25 MG Capsule G-TUBE SCH ×2 (08:30→21:45)
[2018-07-02] MEDS: Loperamide Liq 2 MG/10 ML UDC J-TUBE SCH ×4 (08:31→21:45)
[2018-07-02] MEDS: Lidocaine 5% Patch T-DERMAL SCH (08:31)
[2018-07-02] MEDS: Ascorbic Acid 500 MG Tablet J-TUBE SCH ×2 (08:31→21:47)
[2018-07-02] MEDS: Heparin Central Flush 100 UNIT/ML 5 ML Vial IV.FLUSH SCH (08:31)
[2018-07-02] MEDS: buPROPion 75 MG Tablet J-TUBE SCH ×2 (08:33→21:47)
--- NOTE | 2018-07-02 10:09 | P.PNIM ---
Subjective Interval history: Patient seen and evaluated this morning at bedside. Case reviewed with nursing staff this morning. To this moment in the morning patient has put out approximately 300 mL of bilious material into suction at bedside. Overall 600 mL since last shift. At this moment patient denies chest pain, palpitations, nausea, vomiting. Patient does report abdominal pain predominantly near PEG site. No other active complaints at this moment. Vital signs reviewed patient remains afebrile with borderline blood pressure 93/ 54. Patient remains on trach collar at this time and is breathing comfortably. Patient recently with PEG tube change with prior discharge/fluid extravasation. Patient has been placed on D5 fluids at this moment. No active discharge noted by nursing staff this morning except for occasional bilious extravasation around PEG tube and patient has large cough. Physical Exam Vital signs: Last Vital Signs Temp 97.2 F L 07/02/18 08:00 Pulse 84 07/02/18 08:00 Resp 20 07/02/18 08:00 BP 94/48 L 07/02/18 08:00 Pulse Ox 95 07/02/18 08:00 Intake & Output 06/30/18 07/01/18 07/02/18 07/03/18 06:59 06:59 06:59 06:59 Intake Total 2150 / 2150 1860 / 1860 1800 / 1800 Output Total 1700 / 1700 1350 / 1350 1500 / 1500 Balance 450 / 450 510 / 510 300 / 300 Weight 50 kg 48.3 kg 50.7 kg Narrative: GENERAL: Thin chronically ill appearing female, not in any acute distress. Awake and alert. Able to communicate using nonverbal cues such as nodding SKIN: Warm and dry. HEENT: Atraumatic. Normocephalic. Pupils equal and round. No scleral icterus. No injection or drainage. NECK: Trachea midline. Tracheostomy in place. No erythema noted at tracheostomy site CARDIOVASCULAR: Regular rate and rhythm. S1/S2 RESPIRATORY: No accessory muscle use. Clear to auscultation. Breath sounds equal bilaterally. GASTROINTESTINAL: Abdomen soft, nondistended. +tenderness noted around PEG site with no surrounding erythema. No guarding or rebound. Positive bowel sounds NEUROLOGICAL: Awake and alert. No focal deficits appreciated. No facial droop noted Urinary Catheter Management Indwelling Urethral Catheter: Cath placed during this visit: yes, but has since been removed by the nurse Insertion date: 06/26/18 Insertion time: 00:30 Removal date: 06/26/18 Removal time: 00:00 Results Labs CBC & Chem 7: 07/01/18 06:45 07/01/18 06:45 Assessment and Plan (1) Respiratory failure: Code(s): J96.90 - Respiratory failure, unspecified, unspecified whether with hypoxia or hypercapnia Status: Acute (2) Pneumonia: Code(s): J18.9 - Pneumonia, unspecified organism Status: Acute (3) Status post trachelectomy: Code(s): Z90.710 - Acquired absence of both cervix and uterus Status: Acute (4) Carcinoma of supraglottis: Code(s): C32.1 - Malignant neoplasm of supraglottis Status: Acute (5) COPD (chronic obstructive pulmonary disease): Code(s): J44.9 - Chronic obstructive pulmonary disease, unspecified Status: Acute (6) Dysphagia: Code(s): R13.10 - Dysphagia, unspecified Status: Chronic (7) Lung nodule, solitary: Code(s): R91.1 - Solitary pulmonary nodule Status: Acute (8) Lung nodules: Code(s): R91.8 - Other nonspecific abnormal finding of lung field Status: Acute Plan Patient is a 73-year-old female with 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 During admission rapid response was called and the patient was transferred to ICU where she was placed on 60% oxygenation via trach collar. [facility] reconsulted 05/23 due to hypotension. Currently managed for recurrent respiratory infections with MDRO managed by ID. CT chest does demonstrate a moderate left pleural effusion with left lower lobe atelectasis s/p thoracocentesis. Hospital course complicated by ICU transfer for acute febrile episode in setting of worsening pulmonary edema. Palliative ccare consulted for assistance of [facility] and now is a full DNR with limited escalation of care. Recent PEG change on 06/30 for excessive leakage. Gastroenterology: GJ tube with leakage - s/p IR GJ tube placement 06/30. Still with noted leakage around site. Will monitor for improvement s/p change and will consider surgery consult if no improvement. discussed this with patient on 07/02 and at this time says she would not like further intervention. will defer consultation and evaluate for improvement and if not will discuss this with patient to see if she would consider evaluation. For now, skin integrity is intact without erythema. if skin becomes macerated will consider wound care evaluatioon and possible silvadine cream to region. - Patient does not appear to have significant risk factor for SBP will discontinue SBP ppx. Risk factors include GIB, ascities fluid accumulation of cirrhosis, prior history of SBP or variceal bleed. - Not unusual for leakage shortly after PEG placement, in AM will consider slow advancement back to tube feeding at reduced rate and monitor patient tolerance. Hematology: Pancytopenia d/t myelodysplastic syndrome Per Heme/Onc: pancytopenia is due to MDS. She is not a candidate for chemo. Recommendation for pancytopenia is transfusion of PRBC (if Hg <7) and plat(if plat <15) support. Hx of DVT - anticoagulation recommended with platelet count consistently greater than 75,000; otherwise hold. - platelets holding steady - Hgb stable for past several days. - continue to monitor CBC - hgb > 7. will not transfuse Neprhrology: Acute kidney injury with CKD - started on IVF, continue for now. Moitor chemistry panels. 2.07 --> 1.75 --> 1.63 --> am lab pending - avoid nephrotoxic agents - continue to monitor kidney function as indicated Cardiology: Intermittent hypotension - continue on continuous IV fluid hydration. Suspect that fluid loss from GI outpt is the culprit. monitor and replace fluids. - Monitoring and keep map above 60 MDRO PSAE persistent colonization New PNA, MDRO PSAE, Steno malt 05/29 History of squamous cell carcinoma of the larynx now status post tracheostomy due to recurrent aspiration Spiculated right upper lobe pulmonary nodule, multiple R pulmonary nodules - ID following, Dr. Canchola, appreciate assistance with mgmt, Bld Cx from negative, Urine Cx from 05/29, negative, Sputum Cx on 05/29+ - Pseudomonas MDR, sensitive to only tobramycin. - Levaquin completed. Chronic or resolved medical issues Multiple pulmonary nodules -Pulmonary also following -Dr. Pineda has discussed risk/ benefits of biopsy with patient and her son on 05/05 and at that time they opted to defer biopsy. -Moderate pleural effusion s/p thora on 05/23, Cultures neg. Depression/anxiety -Continue Lexapro and Wellbutrin, Continue Klonopin through the G-tube every 8 hours, Temazepam as needed for insomnia Gastroesophageal reflux disease -Continue PPI and lactobacillus through the G-tube to gravity, discussed with nurse, gauze underneath to prevent skin maceration. Diarrhea -Likely secondary to antibiotics, improved. C. difficile studies were negative on 05/25, Continue Lomotil. UTI, MDRO PDSAE: resolved with tx with Avycaz Chronic DVT of the right lower extremity -Holding Lovenox due to thrombocytopenia. Per heme oncology resume Lovenox if platelets are consistently above 75,000. Platelets have been stable, continue on Lovenox R 1st digit of foot with increased erythema s/p trimming of ingrow toenail -Podiatry reccs from 06/01: Recommend triple antibiotic with Band-Aid to right hallux medial border. Right hip and right knee pain-patient complaining of right hip pain and knee pain which she has not complained before. No history of trauma, xray unremarkable. Possibly due to clot burden??. Continue pain control with [place] and Tylenol. Trial of Lidoderm patch and K thermia. Trial of Lyrica - will increase dose and monitor response. DVT PPX: Lovenox as above. Code Status: DNR _ (1) Dysphagia Qualifiers: Dysphagia type: (2) Respiratory failure Qualifiers: Chronicity: Respiratory failure complication: (3) COPD (chronic obstructive pulmonary disease) Qualifiers: COPD type: Chronic bronchitis type: Emphysema type: (4) Pneumonia Qualifiers: Aspiration pneumonia type: Laterality: Lung location: Pneumonia type:
[2018-07-02] MEDS: Dextrose 5%/NaCl 0.45% Inj 1,000 ML IV.CONT SCH (12:27)
--- NOTE | 2018-07-02 13:08 | P.PN ---
Subjective Interval history: Awake and on a T collar. PM valve is on No New change. Physical Exam Vital signs: Vital Signs 07/01/18 16:00 07/01/18 20:00 07/02/18 08:00 Temperature 97.1 F L 97.4 F L 97.2 F L Pulse Rate 88 112 H 84 Respiratory Rate 20 20 20 Blood Pressure 85/49 L 93/54 L 94/48 L Pulse Oximetry 96 96 95 07/02/18 10:38 Temperature Pulse Rate Respiratory Rate Blood Pressure Pulse Oximetry 94 L Intake & Output 07/01/18 07/02/18 07/02/18 18:59 06:59 18:59 Intake Total 700 / 700 1100 / 1100 1000 / 1000 Output Total 900 / 900 600 / 600 Balance -200 / -200 500 / 500 1000 / 1000 Weight 50.7 kg Intake: IV 500 / 500 1100 / 1100 1000 / 1000 D5W/1/2 NS Inj 1,000 ML @ 70 1000 / 1000 1000 / 1000 mls/hr IV.CONT .[id number] [facility] Rx# :[id number] NS Inj 500 ML @ 1000 mls/hr IV. 500 / 500 SIG BOLUS ANN Rx#:[id number] Rocephin Inj 1,000 MG In NS Inj 100 / 100 100 ML @ 200 mls/hr IV.SIG Q24H [facility] Rx#:[id number] Tube Irrigant 200 / 200 Output: Urine Amount (Catheter) 450 / 450 300 / 300 Indwelling Urethral Catheter 450 / 450 300 / 300 Gastric Drainage 450 / 450 300 / 300 Gastrojejunostomy Tube 450 / 450 300 / 300 Other: Date of Last Bowel Movement 06/29/18 07/01/18 Narrative: GENERAL: Thin chronically ill appearing female, not in any acute distress. Awake and alert. Able to communicate and talks well with PM valve SKIN: Warm and dry. HEENT: Atraumatic. Normocephalic. Pupils equal and round. No scleral icterus. No injection or drainage. NECK: Trachea midline. Tracheostomy in place. No erythema noted at tracheostomy site CARDIOVASCULAR: Regular rate and rhythm. S1/S2 RESPIRATORY: No accessory muscle use. Clear to auscultation. Breath sounds equal bilaterally. GASTROINTESTINAL: Abdomen soft, nondistended. +tenderness noted around PEG site with no surrounding erythema. No guarding or rebound. Positive bowel sounds NEUROLOGICAL: Awake and alert. No focal deficits . No facial droop noted - Urinary Catheter Management Indwelling Urethral Catheter Cath placed during this visit: yes, but has since been removed by the nurse Reason for continuing: Terminally ill/Comfort care Insertion date: 06/26/18 Insertion time: 00:30 Removal date: 06/26/18 Removal time: 00:00 Results - Labs CBC & Chem 7: 07/01/18 06:45 07/01/18 06:45 Assessment and Plan - Assessment (1) Respiratory failure Code(s): J96.90 - Respiratory failure, unspecified, unspecified whether with hypoxia or hypercapnia Status: Acute (2) Pneumonia Code(s): J18.9 - Pneumonia, unspecified organism Status: Acute (3) Status post trachelectomy Code(s): Z90.710 - Acquired absence of both cervix and uterus Status: Acute (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 Cont T collar at 28 % FIO2 . 2. Cont nebs with albuterol qid. PRN 3. Start tube feeds at 30 CC 4. Cont Levsin .125 mg qid prn. 5. J tube feeds at 40 CC 6. Levsin .125 mg TID Prn for secretions 7. PM valve to trach daytime up to 6 hrs.
--- NOTE | 2018-07-02 15:00 | P.PNPAL ---
Reason for Visit Reason for visit: a. To assist with evaluation and management of symptoms including: dyspnea, pain, debility. b. To assist medical decision maker(s) with: better understanding of current medical conditions; weighing benefits/burdens of medical treatment options; making medical treatment decisions. Subjective Subjective/Interval History: Patient seen and examined in room. Discussed with nurse. Dr. Kiser was to call son with medical update. She reports patient sister visited earlier today. Patient is asleep upon my arrival. She is arousable, answers questions. Nods yes to pain in leg, but reports pain has improved. She is unable to quantify or qualify today due to lethargy. Given her lethargy I am going to change ATC Hydrocodone interval from every 6 to every 8 hours, nurse notified. PM valve in place. Nurse indicates minimal drainage from GJ tube site this afternoon. I do not see any drainage from site during my visit. G tube to suction. BP stable with SBP in the 90s, unchanged. IV fluids continuous. Afebrile. No new labs today. Palliative care will follow up again 07/03 to further clarify goals of medical treatment and to follow up on pain control. Family/Friend Interactions: Left message for Quinton gonzales to provide update and notify of plan to decrease Hydrocodone from every 6 to every 8 hours given lethargy. Advance Directives Living Will: Copy in medical record Health Care Surrogate: Copy in medical record Advance Directives Date on File: 02/08/18 Health Care Surrogate Name and Number: janet Corado/medical power of ip technology transactions attorney: [phone] Documented care wishes:: Patient directs that her healthcare providers and others involved in her care provide, withhold or withdraw treatment in accordance with her wish to not prolong life if she has an incurable and irreversible condition that will result in her within a relatively short time or if she becomes unconscious and to a reasonable degree of medical certainty will not regain consciousness were the likely results and burdens of treatment would outweigh the expected benefits. She requests also that treatment for alleviation of pain or discomfort be provided at all times, even if it hastens her . Additionally she indicates that in the event of severe and irreversible or terminal illness that she wishes for the priority on keeping her comfortable and no aggressive therapy or intervention be done unless expressly approved by Alireza Whitten her son. She does not wish to donate any organs after her . Significant change in goals:: NO CODE. Patient does not want trach changed. She is not certain she would want another feeding tube placed, will readdress if this decision is needed. She desires comfort meds. Son supports her decisions. They have not yet been ready to consider transition to comfort measures with hospice support. Objective Vital Signs: Vital Signs 07/01/18 16:00 07/01/18 20:00 07/02/18 08:00 Temperature 97.1 F L 97.4 F L 97.2 F L Pulse Rate 88 112 H 84 Respiratory Rate 20 20 20 Blood Pressure 85/49 L 93/54 L 94/48 L Pulse Oximetry 96 96 95 07/02/18 10:38 Temperature Pulse Rate Respiratory Rate Blood Pressure Pulse Oximetry 94 L Intake & Output 07/01/18 07/02/18 07/02/18 18:59 06:59 18:59 Intake Total 700 / 700 1100 / 1100 1000 / 1000 Output Total 900 / 900 600 / 600 Balance -200 / -200 500 / 500 1000 / 1000 Weight 50.7 kg Intake: IV 500 / 500 1100 / 1100 1000 / 1000 D5W/1/2 NS Inj 1,000 ML @ 70 1000 / 1000 1000 / 1000 mls/hr IV.CONT .[id number] [facility] Rx# :[id number] NS Inj 500 ML @ 1000 mls/hr IV. 500 / 500 SIG BOLUS [facility] Rx#:[id number] Rocephin Inj 1,000 MG In NS Inj 100 / 100 100 ML @ 200 mls/hr IV.SIG Q24H [facility] Rx#:[id number] Tube Irrigant 200 / 200 Output: Urine Amount (Catheter) 450 / 450 300 / 300 Indwelling Urethral Catheter 450 / 450 300 / 300 Gastric Drainage 450 / 450 300 / 300 Gastrojejunostomy Tube 450 / 450 300 / 300 Other: Date of Last Bowel Movement 06/29/18 07/01/18 Physical Exam: CONSTITUTIONAL/GENERAL: Chronically ill looking patient who appears older than stated age with a tracheostomy TUBES/LINES: oxygen via trach collar to trach, PICC line, GJ tube SKIN: Pale. Afebrile. No jaundice, rashes, or lesions. Healing wound to right great toe EYES: eyes closed. CARDIOVASCULAR: S1, S2 normal. RESPIRATORY/CHEST: diminished lung sounds bilaterally. No wheezing, no rhonchi. GASTROINTESTINAL: Abdomen soft, non-tender, nondistended. Guarding. GJ tube site with greenish yellow drainage noted. MUSCULOSKELETAL: Extremities without clubbing, cyanosis. Edema noted to right inner knee NEUROLOGICAL: Lethargic, stirs to voice and exam, answers some questions. Moves all 4 extremities. PSYCHIATRIC:Lethargic. Diagnostic Tests Laboratory: Laboratory Results - last 72 hr 06/30/18 06/30/18 07/01/18 09:06 09:06 06:45 WBC 7.6 8.2 RBC 2.52 L 2.67 L Hgb 7.5 L 8.0 L Hct 21.5 L 22.7 L MCV 85.4 85.0 MCH 29.9 29.8 MCHC 35.0 35.1 RDW 15.6 15.1 Plt Count 78 L 86 L MPV 11.0 11.7 H Prelim Diff (Auto) Manual diff required Manual diff required WBC Differential Manual diff final Manual diff final Seg Neuts % (Manual) 24 18 Band Neuts % (Manual) 14 H 12 H Lymphocytes % (Manual) 10 12 Monocytes % (Manual) 18 H 21 H Eosinophils % (Manual) 10 H 3 Metamyelocytes % (Man) 12 H 8 H Myelocytes % (Man) 8 H 15 H Promyelocytes % (Man) 2 H 1 H Blast Cells % (Manual) 2 H 10 H Abs Neuts (Manual) 4.6 4.4 Differential Comment . . Toxic Vacuolation Present H Dohle Bodies Present H Platelet Estimate Low L Low L Platelet Morphology Enlarged H Enlarged H Ovalocytes 1+ H Sodium 140 Potassium 3.9 Chloride 102 Carbon Dioxide 26.6 Anion Gap 11 BUN 72 H Creatinine 1.75 H Estimated GFR 29 L Random Glucose 90 Calcium 8.1 L 07/01/18 06:45 WBC RBC Hgb Hct MCV MCH MCHC RDW Plt Count MPV Prelim Diff (Auto) WBC Differential Seg Neuts % (Manual) Band Neuts % (Manual) Lymphocytes % (Manual) Monocytes % (Manual) Eosinophils % (Manual) Metamyelocytes % (Man) Myelocytes % (Man) Promyelocytes % (Man) Blast Cells % (Manual) Abs Neuts (Manual) Differential Comment Toxic Vacuolation Dohle Bodies Platelet Estimate Platelet Morphology Ovalocytes Sodium 140 Potassium 3.8 Chloride 103 Carbon Dioxide 25.5 Anion Gap 12 BUN 60 H Creatinine 1.63 H Estimated GFR 31 L Random Glucose 96 Calcium 8.0 L Result Diagrams: 07/01/18 06:45 07/01/18 06:45 Imaging: Abdomen/Bladder Ultrasound 05/06/18 00:00 CONCLUSION: 1. Increased renal echogenicity characteristic of medical renal disease. Small cyst right kidney. Dependent debris in the bladder. Tube Check 05/20/18 00:00 CONCLUSION: 1. Uncomplicated tube injection as above. The gastrojejunostomy tube is in good position. If there is concern for duodenal stricture resulting in a functional obstruction consideration could be made to the administration of barium either orally or through the gastric lumen of the tube to assess for any obstruction. Thin iodinated contrast would be limited in trying to assess this. Upper GI Series 05/21/18 00:00 CONCLUSION: No evidence of gastric outlet or duodenal obstruction. Abdomen/Pelvis CT 05/22/18 00:00 CONCLUSION: 1. Diverticulosis without perceptible diverticulitis or other acute inflammatory changes. 2. The gastrojejunostomy tube appears appropriately positioned. No perceptible associated acute complication. 3. There are scattered tiny nonobstructing stones of both kidneys and a small cyst on the right. 4. Small sliding-type hiatal hernia again seen. Chest CT 05/22/18 16:12 CONCLUSION: 1. Moderate left pleural effusion with atelectasis of the left lower lobe. 2. Mild right base atelectasis, improved compared to prior CT. 3. Right upper lobe pulmonary nodules are stable but the larger one remains concerning for primary bronchogenic carcinoma. Chest Ultrasound 05/23/18 00:00 CONCLUSION: 1. Lastly 360 cc of pleural effusion on the left. This does not appear loculated or complex. Site was marked Thoracentesis Ultrasound 05/23/18 00:00 CONCLUSION: Uncomplicated ultrasound-guided left chest thoracentesis as above. Extremity Arterial Study 05/24/18 00:00 CONCLUSION: 1. Severe reduction of the ABIs bilaterally. Chest CTA 05/26/18 00:00 CONCLUSION: 1. No evidence for pulmonary embolism. 2. Bibasilar consolidation. 3. Prominent nodule in the right upper lobe again seen measuring 13 mm concerning for malignancy. 4. Patchy opacities in the lingula and left lower lobe likely infectious. Venous Doppler Study 05/30/18 00:00 CONCLUSION: Significant interval recanalization of prior extensive right leg DVT Left leg remains normal in appearance. Hip X-Ray 06/26/18 00:00 CONCLUSION: Limited study. No definite bony fracture or joint dislocation. Knee X-Ray 06/26/18 00:00 CONCLUSION: Unremarkable exam for patient's age. Chest X-Ray 06/27/18 00:00 CONCLUSION: No change from the prior study. Abdomen X-Ray 06/27/18 18:35 CONCLUSION: Within normal limits. No evidence of gastrojejunostomy tube leak. Tube Change 06/30/18 00:00 CONCLUSION: Uncomplicated gastrojejunostomy tube exchange as above. 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 Patient now has a tracheostomy. (4) Debility 0-10 Scale: Unable to quantify Pertinent Non-Medical Issues: Psychosocial: Patient is originally from [place]. She has 4 brothers and 2 sisters. She moved to [place] approximately 40 years ago. Patient was for 18 years and then . She and her had 3 sons (Alireza, Sagar and Cameron). Alireza is a physicians community program assistant and lives in [place]. Adalid and Cameron live in [place]. Per patient, Cameron was born with "autism" and live in a skilled nursing Spiritual: [employer] Legal: Pt's son Alireza is medical POA. Ethical issues impacting care: none Important Contacts: medical POA son Alireza Whitten , cell [phone] Prognosis: This is a 73 yo lady with hx laryngeal ca diagnosed 2015 s/p chemo and radiation who presented 04/[address] [facility] for hypoxia and [facility] She initially presented in January with weakness, dysphagia, weight loss, anemia. Chest CT showing enlarging spiculated nodule, 2 additional right lung nodules. She has since had tracheostomy, GJ, and numerous complications, including PNA, need for GJ replacement. She is likely to continue to decline and encounter complications and setbacks as she deconditions. Code Status: No Code DNR (DNR/DNI does NOT want to go back on mech vent.) Plan: * LEGAL DECISION MAKER - Pt is capacitated to make medical decisions. Should she become incapacitated, she has designated her son Alireza Whitten as medical POA. * NO CODE - DNR/DNI does NOT want to go back on mech vent. * GOALS - Goals aggressive short of NO CODE, she does not want tracheostomy changed out. Patient is not sure if she wants to consider additional surgical intervention for GJ tube leakage issues. Will readdress if this decision is needed. Left message for son to provide update and notify of plan for pain management. Patient and son do not want comfort meds withheld for hypotension or other reasons. Palliative care will follow up 07/03/18 to follow up on pain control and further clarification of goals of medical treatment. * Spoke with JULIUS Kat. Spoke with nurses, Minoo and Kanika. * Palliative care will continue to follow during hospital course as condition evolves, to assist patient/decision-maker with understanding of medical conditions, weighing benefits/burdens of treatment options, for clarification of goals of treatment. Additionally will assist with any symptoms of palliative concern SYMPTOMS - * pain - risk for pain. multifactorial, coccygeal ulcer, mult lines and catheters, tubes. Has PRN [place] and PRN Roxanol 5mg q4h for breakthrough pain. Sparing need. Will continue to monitor need and effect. Endorsing pain to GJ tube site and right leg, hip and back. Note: please call son prior to making any medication adjustments. Will decrease [place] 5/325 mg from every 6 hours to every 8 hours ATC due to lethargy. * dyspnea - hx laryngeal ca, has trach, now with PNA. BCX pending. denies feeling SOB today. On oxygen via t-piece, PM valve as needed. Duonebs as needed. has PRN meds for anxiety. Denies anxiety during my visit today. * depression/anxiety - multifactorial. pt mildly anxious, on Lexapro, Wellbutrin. Has clonazepam 0.5 mg q8h PRN. Has PRN temazepam for insomnia. Lethargic 07/02/18. * debility- multifactorial. 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 respiratory status unlikely to allow for aggressive therapy and rehab. weak. PT following. no further recs. Attestation Attestation: To help prompt me to consider important information that might be impacting today's encounter and assessment, information from prior notes written by myself or my colleagues may have been "brought forward" into today's note. My signature on this note, however, is an attestation that I personally performed the exam, history, and/or decision-making noted today, and, unless otherwise indicated, the interactions with patient, family, and staff as well as the review of records all occurred today. I also attest that the listed assessment and stated plan reflect my best clinical judgment today based on the combination of historical information, prior notes, and today's exam/ interactions. When time spent is documented, it refers only to time spent today by the signer, or if indicated, combined time spent today by collaborating physician/nurse practitioner.
[2018-07-03] MEDS: Dextrose 5%/NaCl 0.45% Inj 1,000 ML IV.CONT SCH ×2 (03:10→15:53)
[2018-07-03] MEDS: Hyoscyamine Liq Drops 0.125 MG/ML 15 ML Bottle SL SCH ×4 (04:00→21:05)
[2018-07-03] MEDS: Levothyroxine 150 MCG Tablet J-TUBE SCH (05:12)
[2018-07-03 06:11] LABS: Mean Corpuscular HGB Conc 33.6 % (32.0-36.0); Mean Corpuscular Hemoglobin 29.1 pg (27.0-34.0); Mean Corpuscular Volume 86.6 fL (80.0-100.0); Mean Platelet Volume 10.5 fL (7.0-11.0); Platelet Count 71 th/mm3 (150-450); Red Cell Distribution Width 15.3 % (11.6-17.2); White Blood Count 9.8 th/mm3 (4.0-11.0)
[2018-07-03 06:41] LABS: Calcium 7.7 mg/dL (8.5-10.1); Carbon Dioxide 23.4 meq/L (21.0-32.0); Potassium 3.5 meq/L (3.5-5.1)
[2018-07-03 06:45] LABS: Hemoglobin 6.4 gm/dL (11.6-15.3)
[2018-07-03] MEDS ORDERED: Sodium Chlor 0.9% Inj 250 ML IV.SIG SCH (08:00)
[2018-07-03] MEDS: Heparin Central Flush 100 UNIT/ML 5 ML Vial IV.FLUSH SCH (09:11)
[2018-07-03] MEDS: Loperamide Liq 2 MG/10 ML UDC J-TUBE SCH ×4 (09:12→21:03)
[2018-07-03] MEDS: Lactobacillus Acidophilus/L. Spores Tablet J-TUBE SCH ×3 (09:12→17:56)
[2018-07-03] MEDS: Lidocaine 5% Patch T-DERMAL SCH (09:13)
[2018-07-03] MEDS: Pregabalin 25 MG Capsule G-TUBE SCH ×2 (09:15→21:03)
[2018-07-03] MEDS: Ascorbic Acid 500 MG Tablet J-TUBE SCH ×2 (09:17→21:03)
[2018-07-03] MEDS: buPROPion 75 MG Tablet J-TUBE SCH ×2 (09:19→21:09)
[2018-07-03 09:30] LABS: Mean Corpuscular HGB Conc 33.1 % (32.0-36.0); Mean Corpuscular Hemoglobin 28.8 pg (27.0-34.0); Mean Corpuscular Volume 87.1 fL (80.0-100.0); Mean Platelet Volume 10.7 fL (7.0-11.0); Platelet Count 76 th/mm3 (150-450); Red Blood Count 2.34 mil/mm3 (4.00-5.30); Red Cell Distribution Width 15.2 % (11.6-17.2); White Blood Count 11.3 th/mm3 (4.0-11.0)
[2018-07-03 09:57] LABS: Hematocrit 20.3 % (35.0-46.0); Hemoglobin 6.7 gm/dL (11.6-15.3)
--- NOTE | 2018-07-03 11:32 | P.PNIM ---
Subjective Interval history: Patient seen and evaluated this morning at bedside. Case discussed with nursing staff overnight and patient noted this morning to have hemoglobin of 6.4 and upon repeat hemoglobin was noted to be 6.7. Nursing staff did not notice any bruising on the flanks or lower back upon changing patient this morning. Orellana bag does not appear to contain blood. No noted melena on bowel movement the patient had overnight. Bilious material noted to be coming from PEG site but does not appear dark or to contain blood. Patient appropriately answers questions does not appear to have any new focal deficits including facial droop. Vital signs reviewed with nursing staff at the bedside and blood pressure is stable without evidence of tachycardia. Medication reconciliation completed and no evidence of beta-marc use. Upon questioning patient she has no complaints of chest pain, palpitations, or breathing difficulties. Patient does not report any abdominal pain at this time. No other complaints over the last 24 hours by the patient. Case was briefly reviewed with patient's son Alireza on 07/02 and all questions answered. Patient continues to have some extravasation of bilious fluid from PEG site. Patient tolerating increased dose of PPI which is thought to promote healing at the site. Nursing staff reports changing dressing this morning. Physical Exam Vital signs: Last Vital Signs Temp 97.1 F L 07/02/18 20:00 Pulse 87 07/02/18 20:00 Resp 18 07/02/18 20:00 BP 90/42 L 07/02/18 20:00 Pulse Ox 97 07/03/18 03:30 Intake & Output 07/01/18 07/02/18 07/03/18 07/04/18 06:59 06:59 06:59 06:59 Intake Total 1860 / 1860 1800 / 1800 2100 / 2100 Output Total 1350 / 1350 1500 / 1500 1450 / 1450 Balance 510 / 510 300 / 300 650 / 650 Weight 48.3 kg 50.7 kg 50.7 kg Narrative: GENERAL: Thin chronically ill appearing female, not in any acute distress. Awake and alert. Able to communicate SKIN: Warm and dry. HEENT: Atraumatic. Normocephalic. Pupils equal and round. No scleral icterus. No injection or drainage. NECK: Trachea midline. Tracheostomy in place. No erythema noted at tracheostomy site CARDIOVASCULAR: Regular rate and rhythm. S1/S2. No tachycardia RESPIRATORY: No accessory muscle use. Clear to auscultation. Breath sounds equal bilaterally. GASTROINTESTINAL: Abdomen soft, nondistended. Minimal tenderness noted around PEG site with small quater size surrounding erythema. No guarding or rebound. Positive bowel sounds. No fluctuance noted Musculoskeletal: No flank discoloration noted Urology: Orellana bag without evidence of hematuria. Yellow urine noted NEUROLOGICAL: Awake and alert. No focal deficits . No facial droop noted Urinary Catheter Management Indwelling Urethral Catheter: Cath placed during this visit: yes, but has since been removed by the nurse Insertion date: 06/26/18 Insertion time: 00:30 Removal date: 06/26/18 Removal time: 00:00 Results Labs CBC & Chem 7: 07/03/18 09:00 07/03/18 05:45 Assessment and Plan (1) Respiratory failure: Code(s): J96.90 - Respiratory failure, unspecified, unspecified whether with hypoxia or hypercapnia Status: Acute (2) Pneumonia: Code(s): J18.9 - Pneumonia, unspecified organism Status: Acute (3) Status post trachelectomy: Code(s): Z90.710 - Acquired absence of both cervix and uterus Status: Acute (4) Carcinoma of supraglottis: Code(s): C32.1 - Malignant neoplasm of supraglottis Status: Acute (5) COPD (chronic obstructive pulmonary disease): Code(s): J44.9 - Chronic obstructive pulmonary disease, unspecified Status: Acute (6) Dysphagia: Code(s): R13.10 - Dysphagia, unspecified Status: Chronic (7) Lung nodule, solitary: Code(s): R91.1 - Solitary pulmonary nodule Status: Acute (8) Lung nodules: Code(s): R91.8 - Other nonspecific abnormal finding of lung field Status: Acute Plan Patient is a 73-year-old female with history of 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 During admission rapid response was called and the patient was transferred to ICU where she was placed on 60% oxygenation via trach collar. [facility] reconsulted 05/23 due to hypotension. Currently managed for recurrent respiratory infections with MDRO managed by ID. CT chest does demonstrate a moderate left pleural effusion with left lower lobe atelectasis s/p thoracocentesis. Hospital course complicated by ICU transfer for acute febrile episode in setting of worsening pulmonary edema. Palliative ccare consulted for assistance of Gloria and now is a full DNR with limited escalation of care. Recent PEG change on 06/30 for excessive leakage. Gastroenterology: GJ tube with leakage - s/p IR GJ tube placement 06/30. Still with noted leakage around site. Will monitor for improvement s/p change and will consider surgery consult if no improvement. discussed this with patient on 07/02 and at this time says she would not like further intervention. will defer consultation and evaluate for improvement and if not will discuss this with patient to see if she would consider evaluation. For now, skin integrity is intact without erythema. if skin becomes macerated will consider wound care evaluatioon and possible silvadine cream to region. - . Discontinued SBP prophylaxis on 07/02 as patient does not appear to have increased risk for infection at this time including variceal bleed, cirrhosis, or prior ascites fluid accumulation.. - Not unusual for leakage shortly after PEG placement, in AM will consider slow advancement back to tube feeding at reduced rate and monitor patient tolerance. Hematology: Pancytopenia d/t myelodysplastic syndrome Per Heme/Onc: pancytopenia is due to MDS. She is not a candidate for chemo. Recommendation for pancytopenia is transfusion of PRBC (if Hg <7) and plat(if plat <15) support. Hx of DVT - anticoagulation recommended with platelet count consistently greater than 75,000; otherwise hold. - platelets holding steady - continue to monitor CBC - Patient with evidence of anemia on lab work which may be secondary to history of myelodysplastic syndrome but given acute fall over the last 24 hours we will continue to investigate by checking reticulocyte level to confirm that in fact patient bone marrow is not responding which would be consistent with a history of myelodysplastic syndrome. Transfused 2 units of packed red blood cells for low hemoglobin. Stool guaiac to evaluate for possible gastrointestinal source. No evidence of hematuria in Orellana bag. If clinical decline continues would consider noncontrast CT. At this time patient blood pressure is stable without evidence of tachycardia unlikely to have significant bleed at this time. - no lovenox. SCD's for now pending workup Neprhrology: Acute kidney injury with CKD - started on IVF, continue for now. Monitor chemistry panels. 2.07 --> 1.75 -- > 1.63 --> 1.73 - avoid nephrotoxic agents - continue to monitor kidney function as indicated Cardiology: Intermittent hypotension - continue on continuous IV fluid hydration. Suspect that fluid loss from GI outpt is the culprit. monitor and replace fluids. - Monitoring and keep map above 60 MDRO PSAE persistent colonization New PNA, MDRO PSAE, Steno malt 05/29 History of squamous cell carcinoma of the larynx now status post tracheostomy due to recurrent aspiration Spiculated right upper lobe pulmonary nodule, multiple R pulmonary nodules - ID following, Dr. Canchola, appreciate assistance with mgmt, Bld Cx from negative, Urine Cx from 05/29, negative, Sputum Cx on 05/29+ - Pseudomonas MDR, sensitive to only tobramycin. - Levaquin completed. Chronic or resolved medical issues Multiple pulmonary nodules -Pulmonary also following -Dr. Pineda has discussed risk/ benefits of biopsy with patient and her son on 05/05 and at that time they opted to defer biopsy. -Moderate pleural effusion s/p thora on 05/23, Cultures neg. Depression/anxiety -Continue Lexapro and Wellbutrin, Continue Klonopin through the G-tube every 8 hours, Temazepam as needed for insomnia Gastroesophageal reflux disease -Continue PPI and lactobacillus through the G-tube to gravity, discussed with nurse, gauze underneath to prevent skin maceration. Diarrhea -Likely secondary to antibiotics, improved. C. difficile studies were negative on 05/25, Continue Lomotil. UTI, MDRO PDSAE: resolved with tx with Avycaz Chronic DVT of the right lower extremity -Holding Lovenox due to thrombocytopenia. Per heme oncology resume Lovenox if platelets are consistently above 75,000. Given recent change in hemoglobin level will transition off of Lovenox and towards SCD R 1st digit of foot with increased erythema s/p trimming of ingrow toenail -Podiatry reccs from 06/01: Recommend triple antibiotic with Band-Aid to right hallux medial border. Right hip and right knee pain-patient complaining of right hip pain and knee pain which she has not complained before. No history of trauma, xray unremarkable. Possibly due to clot burden??. Continue pain control with Mobile and Tylenol. Trial of Lidoderm patch and K thermia. Trial of Lyrica - will increase dose and monitor response. DVT PPX: SCD given Hgb change Code Status: DNR _ (1) Respiratory failure Qualifiers: Chronicity: Respiratory failure complication: (2) Pneumonia Qualifiers: Pneumonia type: Aspiration pneumonia type: Laterality: Lung location: (3) COPD (chronic obstructive pulmonary disease) Qualifiers: COPD type: Chronic bronchitis type: Emphysema type: (4) Dysphagia Qualifiers: Dysphagia type:
--- NOTE | 2018-07-03 19:55 | P.PN ---
Subjective Interval history: Alert and is receiving red cell transfusions. has some trach secretions. No Fever. Good output. Physical Exam Vital signs: Vital Signs 07/02/18 20:00 07/03/18 03:30 07/03/18 08:00 Temperature 97.1 F L 98.2 F Pulse Rate 87 78 Respiratory Rate 18 20 Blood Pressure 90/42 L 122/55 L Pulse Oximetry 93 L 97 95 07/03/18 12:25 07/03/18 13:41 07/03/18 13:58 Temperature 97.7 F 97.8 F Pulse Rate 66 71 Respiratory Rate 18 18 Blood Pressure 105/51 L 101/48 L Pulse Oximetry 97 98 98 07/03/18 14:00 07/03/18 17:37 07/03/18 17:48 Temperature 97.8 F 98.6 F 98.6 F Pulse Rate 71 110 H 110 H Respiratory Rate 18 18 20 Blood Pressure 93/47 L 87/51 L 87/51 L Pulse Oximetry 95 98 98 07/03/18 17:52 07/03/18 18:34 Temperature 98.5 F Pulse Rate 113 H Respiratory Rate 20 Blood Pressure 90/46 L Pulse Oximetry 96 96 Intake & Output 07/03/18 07/03/18 07/04/18 06:59 18:59 06:59 Intake Total 1000 / 1000 2040 / 2040 Output Total 500 / 500 200 / 200 Balance 500 / 500 1840 / 1840 Weight 50.7 kg Intake: IV 1000 / 1000 1000 / 1000 D5W/1/2 NS Inj 1,000 ML @ 100 1000 / 1000 1000 / 1000 mls/hr IV.CONT .Q10H [facility] Rx#: [id number] Oral 0 / 0 Tube Feeding 0 / 0 Tube Irrigant 100 / 100 Water Bolus Amount 0 / 0 Other 540 / 540 Intake (Blood Product) Amt 400 / 400 Rbc As-3 Leukoreduced Unit 0 / 0 [id number] Rbc As-3 Leukoreduced Unit 400 / 400 [id number] Mass Transfusion Protocol 0 / 0 Output: Urine 0 / 0 Stool 0 / 0 Urine/Stool Mix 0 / 0 Emesis 0 / 0 Urine Amount (Catheter) 350 / 350 Indwelling Urethral Catheter 350 / 350 Gastric Drainage 150 / 150 200 / 200 Gastrojejunostomy Tube 150 / 150 200 / 200 Jejunostomy Tube 0 / 0 Other: Other Intake Source Saline Solution # Voids 0 # Incontinent Voids 0 # Urine Diapers 0 Date of Last Bowel Movement 07/02/18 07/02/18 # Bowel Movements 2 # Incontinent Bowel Movements 1 1 # Emeses 0 Narrative: GENERAL: Thin chronically ill appearing female, not in any acute distress. Awake and alert. Able to communicate SKIN: Warm and dry. HEENT: Atraumatic. Normocephalic. Pupils equal and round. No scleral icterus. No injection or drainage. NECK: Trachea midline. Tracheostomy in place. No erythema noted at tracheostomy site CARDIOVASCULAR: Regular rate and rhythm. S1/S2. No tachycardia or murmur RESPIRATORY: No accessory muscle use. Clear to auscultation. Breath sounds equal bilaterally. GASTROINTESTINAL: Abdomen soft, nondistended. Minimal tenderness noted around PEG site with small quater size surrounding erythema. No guarding or rebound. Positive bowel sounds. Musculoskeletal: No flank discoloration noted NEUROLOGICAL: Awake and alert. No focal deficits . - Urinary Catheter Management Indwelling Urethral Catheter Cath placed during this visit: yes, but has since been removed by the nurse Reason for continuing: Terminally ill/Comfort care Insertion date: 06/26/18 Insertion time: 00:30 Removal date: 06/26/18 Removal time: 00:00 Results - Labs CBC & Chem 7: 07/03/18 09:00 07/03/18 05:45 Laboratory Results - last 24 hr 06/23/18 07/03/18 07/03/18 08:50 05:45 05:45 WBC 9.8 RBC 2.20 L Hgb 6.4 L* Hct 19.0 L* MCV 86.6 MCH 29.1 MCHC 33.6 RDW 15.3 Plt Count 71 L MPV 10.5 Sodium 138 Potassium 3.5 Chloride 104 Carbon Dioxide 23.4 Anion Gap 11 BUN 43 H Creatinine 1.73 H Estimated GFR 29 L Random Glucose 100 Calcium 7.7 L Blood Type Antibody Screen MTS Gel Crossmatch See Detail 07/03/18 07/03/18 09:00 10:47 WBC 11.3 H RBC 2.34 L Hgb 6.7 L* Hct 20.3 L* MCV 87.1 MCH 28.8 MCHC 33.1 RDW 15.2 Plt Count 76 L MPV 10.7 Sodium Potassium Chloride Carbon Dioxide Anion Gap BUN Creatinine Estimated GFR Random Glucose Calcium Blood Type B Positive Antibody Screen Positive H MTS Gel Crossmatch See Detail Assessment and Plan - Assessment (1) Respiratory failure Code(s): J96.90 - Respiratory failure, unspecified, unspecified whether with hypoxia or hypercapnia Status: Acute (2) Pneumonia Code(s): J18.9 - Pneumonia, unspecified organism Status: Acute (3) Status post trachelectomy Code(s): Z90.710 - Acquired absence of both cervix and uterus Status: Acute (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 Cont T collar at 30 % FIO2 . 2. Cont nebs with albuterol qid. PRN 3. CBC,BMP in am 4. Cont Levsin .125 mg qid prn. 5. J tube feeds at 30 CC and advance 6. Levsin .125 mg TID Prn for secretions 7. Transfuse 2 U packed red cells
[2018-07-04] MEDS: Dextrose 5%/NaCl 0.45% Inj 1,000 ML IV.CONT SCH ×2 (00:54→09:11)
[2018-07-04] MEDS: Hyoscyamine Liq Drops 0.125 MG/ML 15 ML Bottle SL SCH ×5 (05:45→22:29)
[2018-07-04] MEDS: Levothyroxine 150 MCG Tablet J-TUBE SCH (05:45)
[2018-07-04 08:00] LABS: Hematocrit 26.5 % (35.0-46.0); Hemoglobin 9.3 gm/dL (11.6-15.3); Mean Corpuscular HGB Conc 35.2 % (32.0-36.0); Mean Corpuscular Hemoglobin 30.3 pg (27.0-34.0); Mean Corpuscular Volume 86.1 fL (80.0-100.0); Mean Platelet Volume 11.2 fL (7.0-11.0); Platelet Count 64 th/mm3 (150-450); Red Blood Count 3.08 mil/mm3 (4.00-5.30); Red Cell Distribution Width 14.4 % (11.6-17.2)
[2018-07-04 08:06] LABS: Reticulocyte Percent 0.5 % (0.4-3.0)
[2018-07-04 08:22] LABS: Calcium 7.4 mg/dL (8.5-10.1); Carbon Dioxide 23.5 meq/L (21.0-32.0); Potassium 3.6 meq/L (3.5-5.1)
[2018-07-04 08:32] LABS: Calcium-Albumin Corrected 8.3 mg/dL (8.5-10.1); Total Protein 5.4 g/dL (6.4-8.2)
[2018-07-04] MEDS: Lidocaine 5% Patch T-DERMAL SCH (09:11)
[2018-07-04] MEDS: Loperamide Liq 2 MG/10 ML UDC J-TUBE SCH ×4 (09:12→20:32)
[2018-07-04] MEDS: Ascorbic Acid 500 MG Tablet J-TUBE SCH ×2 (09:13→20:32)
[2018-07-04] MEDS: Pregabalin 25 MG Capsule G-TUBE SCH (09:13)
[2018-07-04] MEDS: Heparin Central Flush 100 UNIT/ML 5 ML Vial IV.FLUSH SCH (09:13)
[2018-07-04] MEDS: Simethicone 125 MG Chew Tablet J-TUBE PRN (09:13)
[2018-07-04] MEDS: Lactobacillus Acidophilus/L. Spores Tablet J-TUBE SCH ×3 (09:14→17:58)
[2018-07-04] MEDS: buPROPion 75 MG Tablet J-TUBE SCH ×2 (09:15→22:26)
--- NOTE | 2018-07-04 13:09 | XR ---
EXAM DATE: 07/04/2018 1:00 PM EST AGE/SEX: 73 years / Female INDICATIONS: Short of breath, evaluate infiltrate CLINICAL DATA: This is the patient's subsequent encounter. Patient reports that signs and symptoms h ave been present for 2 weeks and indicates a pain score of 0/10. MEDICAL/SURGICAL HISTORY: Gastroesophageal reflux disease. larynx carcinoma, Rendon's esophagu s Cholecystectomy. tracheostomy, hernia repair COMPARISON: [facility], CHEST 1V SINGLE AP, 06/27/2018. . FINDINGS: Trach tube and PICC line in good position. Cardiomegaly with coarse interstitial changes throughout b oth lungs. Moderate interstitial edema is present that has progressed. There is no pneumothorax. Ther e is no pleural effusion. CONCLUSION: Progression of the apparent congestive failure. Electronically signed by: Aly Park MD 07/04/2018 1:08 PM EST
--- NOTE | 2018-07-04 14:56 | P.PN ---
Subjective Interval history: Patient seen and examined. She says her right leg pain is better. She says she feels better after getting the blood transfusion. She says she is coughing more with increased sputum production. She is tolerating tube feeds at 30cc/ hr. She does not have any leakage around the PEG site. Physical Exam Vital signs: Vital Signs 07/03/18 17:37 07/03/18 17:48 07/03/18 17:52 Temperature 98.6 F 98.6 F 98.5 F Pulse Rate 110 H 110 H 113 H Respiratory Rate 18 20 20 Blood Pressure 87/51 L 87/51 L 90/46 L Pulse Oximetry 98 98 96 07/03/18 18:34 07/03/18 20:00 07/04/18 00:00 Temperature 99.2 F 98.4 F Pulse Rate 82 86 Respiratory Rate 20 20 Blood Pressure 122/57 L 99/46 L Pulse Oximetry 96 95 94 L 07/04/18 08:00 07/04/18 11:08 07/04/18 12:00 Temperature 98.7 F Pulse Rate 78 Respiratory Rate 14 16 Blood Pressure 102/88 Pulse Oximetry 92 L 97 Intake & Output 07/03/18 07/04/18 07/04/18 18:59 06:59 18:59 Intake Total 2040 / 2040 1160 / 1160 1000 / 1000 Output Total 200 / 200 1400 / 1400 Balance 1840 / 1840 -240 / -240 1000 / 1000 Weight 50.7 kg Intake: IV 1000 / 1000 1000 / 1000 D5W/1/2 NS Inj 1,000 ML @ 100 1000 / 1000 1000 / 1000 mls/hr IV.CONT .Q10H [facility] Rx#: [id number] Oral 0 / 0 0 / 0 Tube Feeding 0 / 0 360 / 360 Tube Irrigant 100 / 100 Water Bolus Amount 0 / 0 0 / 0 Other 540 / 540 400 / 400 Rbc As-3 Leukoreduced Unit 400 / 400 [id number] Intake (Blood Product) Amt 400 / 400 0 / 0 Rbc As-3 Leukoreduced Unit 0 / 0 0 / 0 [id number] Rbc As-3 Leukoreduced Unit 400 / 400 [id number] Mass Transfusion Protocol 0 / 0 400 / 400 Output: Urine 0 / 0 Stool 0 / 0 Urine/Stool Mix 0 / 0 Emesis 0 / 0 0 / 0 Urine Amount (Catheter) 800 / 800 Indwelling Urethral Catheter 800 / 800 Gastric Drainage 200 / 200 600 / 600 Gastrojejunostomy Tube 200 / 200 600 / 600 Jejunostomy Tube 0 / 0 Other: Other Intake Source Saline Solution Saline Solution # Voids 0 # Incontinent Voids 0 # Urine Diapers 0 Date of Last Bowel Movement 07/02/18 07/03/18 07/04/18 # Bowel Movements 2 # Incontinent Bowel Movements 1 # Emeses 0 0 Narrative: GENERAL: Thin chronically ill appearing female, not in any acute distress. Awake and alert. Family is at the bedside. SKIN: Warm and dry. +purplish discoloration of bilateral heels R>L. Both heels boggy. HEENT: Atraumatic. Normocephalic. Pupils equal and round. No scleral icterus. No injection or drainage. NECK: Trachea midline. Tracheostomy in place. No erythema noted at tracheostomy site CARDIOVASCULAR: Clear to auscultation anteriorly. No wheezing or crackles noted. RESPIRATORY: No accessory muscle use. Clear to auscultation. Breath sounds equal bilaterally. GASTROINTESTINAL: Abdomen soft, nondistended, nontender to palpation. +mild erythema surrounding the PEG site. +tissue protrusion at PEG site opening. No active leakage noted. Musculoskeletal: No clubbing, cyanosis or edema noted. NEUROLOGICAL: Awake and alert. No focal deficits. Able to move all extremities spontaneously. - Urinary Catheter Management Indwelling Urethral Catheter Cath placed during this visit: yes, but has since been removed by the nurse Reason for continuing: Chronic Urinary Retention Insertion date: 06/26/18 Insertion time: 00:30 Removal date: 06/26/18 Removal time: 00:00 Results - Labs CBC & Chem 7: 07/04/18 07:30 07/04/18 07:30 Laboratory Results - last 24 hr 07/03/18 07/04/18 07/04/18 10:47 07:30 07:30 WBC 14.0 H RBC 3.08 L Hgb 9.3 L D Hct 26.5 L MCV 86.1 MCH 30.3 MCHC 35.2 RDW 14.4 Plt Count 64 L MPV 11.2 H Retic Count Absolute Retic Sodium 136 Potassium 3.6 Chloride 103 Carbon Dioxide 23.5 Anion Gap 10 BUN 36 H Creatinine 1.53 H Estimated GFR 33 L Random Glucose 98 Calcium 7.4 L* Prot Corrected Calcium 8.3 L Total Protein 5.4 L Blood Type B Positive Antibody Screen Positive H MTS Gel Crossmatch See Detail 07/04/18 07:30 WBC RBC Hgb Hct MCV MCH MCHC RDW Plt Count MPV Retic Count 0.5 Absolute Retic 16.6 L Sodium Potassium Chloride Carbon Dioxide Anion Gap BUN Creatinine Estimated GFR Random Glucose Calcium Prot Corrected Calcium Total Protein Blood Type Antibody Screen MTS Gel Crossmatch - Imaging Impressions Chest X-Ray 07/04/18 00:00 CONCLUSION: Progression of the apparent congestive failure. Assessment and Plan - Assessment (1) Respiratory failure Code(s): J96.90 - Respiratory failure, unspecified, unspecified whether with hypoxia or hypercapnia Status: Acute (2) Pneumonia Code(s): J18.9 - Pneumonia, unspecified organism Status: Acute (3) Status post trachelectomy Code(s): Z90.710 - Acquired absence of both cervix and uterus Status: Acute (4) Carcinoma of supraglottis Code(s): C32.1 - Malignant neoplasm of supraglottis Status: Acute (5) COPD (chronic obstructive pulmonary disease) Code(s): J44.9 - Chronic obstructive pulmonary disease, unspecified Status: Acute (6) Dysphagia Code(s): R13.10 - Dysphagia, unspecified Status: Chronic (7) Lung nodule, solitary Code(s): R91.1 - Solitary pulmonary nodule Status: Acute (8) Lung nodules Code(s): R91.8 - Other nonspecific abnormal finding of lung field Status: Acute - Plan This is a 73-year-old female with 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 The rapid response was called and the patient was transferred to ICU where she was placed on 60% oxygenation via trach collar. [facility] reconsulted 05/23 due to hypotension. Currently managed for recurrent respiratory infections with MDRO managed by ID. CT chest does demonstrate a moderate left pleural effusion with left lower lobe atelectasis s/p thoracocentesis. Patient was again sent over to the ICU on 05/29 for acute pulmonary edema with further fever spikes. Patient underwent diuresis and was made a no code, was eventually stabilized and transition back to hospitalist care. Acute: Fluid overload, patient on IVF for low BP and received transfusion 2u PRBCs yesterday CXR shows coarse interstitial changes throughout both lung, moderate edema that has progressed, images reviewed by me - D/C IVF - give IV Lasix 20mg x 1 - monitor respiratory status Elevated white count - WBC trending up, 14.0 today - patient is afebrile, does not appear toxic - CXR shows fluid overload as above - UA ordered - repeat CBC in am - monitor vital signs GJ tube with leakage Soft tissue mass thru PEG site - s/p cauterization by Dr. Bautista. GJ tube not in proper position. He was able to deflate the balloon and place in proper position. 1800cc of yellow bilious drainage from GJ tube. - s/p IR GJ tube placement 06/30. +persistent leakage around PEG site improved with escalation of PPI. Tolerating tube feeds at 30cc/hr, titrate up slowly and monitor for recurrence of leakage - monitor skin around PEG site, mild surrounding erythema noted, continue with present tx Pancytopenia d/t myelodysplastic syndrome Per Heme/Onc: pancytopenia is due to MDS. She is not a candidate for chemo. Recommendation for pancytopenia is transfusion of PRBC (if Hg <7) and plat(if plat <15) support. Hx of DVT - Lovenox held due to thrombocytopenia. Repeat doppler 05/30 shows recannulization. Anticoagulation recommended with platelet count consistently greater than 75,000; otherwise hold. - 07/02 patients Hgb dropped to 6.4. Transfused 2u PRBCS. Repeat hgb following transfusion 9.3. - continue to hold Lovenox. Repeat CBC in am. Acute kidney injury with CKD - improved with IVF hydration - avoid nephrotoxic agents - continue to monitor kidney function as indicated Intermittent hypotension - Hypotensive, improved with blood transfusion and IVF - Monitoring and keep map above 60 MDRO PSAE persistent colonization New PNA, MDRO PSAE, Steno malt 05/29 History of squamous cell carcinoma of the larynx now status post tracheostomy due to recurrent aspiration Spiculated right upper lobe pulmonary nodule, multiple R pulmonary nodules - ID following, Dr. Canchola, appreciate assistance with mgmt, Bld Cx from negative, Urine Cx from 05/29, negative, Sputum Cx on 05/29+ - Pseudomonas MDR, sensitive to only tobramycin. - Levaquin completed. Chronic or resolved: Multiple pulmonary nodules -Pulmonary also following -Dr. Pineda has discussed risk/ benefits of biopsy with patient and her son on 05/05 and at that time they opted to defer biopsy. -Moderate pleural effusion s/p thora on 05/23, Cultures neg. Depression/anxiety -Continue Lexapro and Wellbutrin, Continue Klonopin through the G-tube every 8 hours, Temazepam as needed for insomnia Gastroesophageal reflux disease -Continue PPI and lactobacillus through the G-tube to gravity, discussed with nurse, gauze underneath to prevent skin maceration. Diarrhea -Likely secondary to antibiotics, improved. C. difficile studies were negative on 05/25, Continue Lomotil. UTI, MDRO PDSAE: resolved with tx with Avycaz Chronic DVT of the right lower extremity -Holding Lovenox due to thrombocytopenia. Per heme oncology resume Lovenox if platelets are consistently above 75,000. Platelets dropped to 64. Lovenox already on hold, continue to hold. Repeat CBC in am. R 1st digit of foot with increased erythema s/p trimming of ingrow toenail -Podiatry reccs from 06/01: Recommend triple antibiotic with Band-Aid to right hallux medial border. Right hip and right knee pain-patient complaining of right hip pain and knee pain which she has not complained before. No history of trauma, xray unremarkable. Possibly due to clot burden??. Patient off Lovenox since 05/30. Obtain doppler US to r/o DVT. Continue pain control with Vici and Tylenol. Trial of Lidoderm patch and K thermia. Trial of Lyrica - dose increased to 75mg BID. DVT PPX: Lovenox as above. Code Status: DNR Discussed Condition With: patient, nursing staff, Dr. Beyer
--- NOTE | 2018-07-04 16:28 | US ---
EXAM DATE: 07/04/2018 4:24 PM EST AGE/SEX: 73 years / Female INDICATIONS: Lower leg pain. CLINICAL DATA: This is the patient's initial encounter. Patient reports that signs and symptoms have been present for 1 day and indicates a pain score of 1/10. MEDICAL/SURGICAL HISTORY: Arthritis. Gastroesophageal reflux disease. Hyperthyroidism. MDR. Skin cancer of forehead. Squamous cell carcinoma of larynx. Squamous cell carcinoma of Supraglottis. Cholecystectomy. Tonsillectomy. Colonoscopy. Esophageal dilation. EGD. Hernia repair. Oral surgery. Adenoidectomy. COMPARISON: [facility] [place] VENOUS DOPPLER LEG BI, 05/30/2018. . TECHNIQUE: Venous ultrasound of both lower extremities was performed from the inguinal ligament to t he proximal calf. Real-time, color Doppler and spectral tracing, compression and augmentation techni ques were used. FINDINGS: Right Leg: There is nonocclusive thrombus in the common femoral vein and greater saphenous vein.. Fo r the most part this is probably recanalized. Left Leg: Normal compression of the deep venous system from the inguinal region to the proximal calf . No echogenic clot is seen. Normal response of the venous system to augmentation and respiration. CONCLUSION: 1. Nonocclusive thrombus in the right common femoral vein and greater saphenous vein probably recana lized old clot for the most part. 2. Negative for thrombus in the left Electronically signed by: Aly Park MD 07/04/2018 4:26 PM EST
[2018-07-04 16:49] LABS: Bacteria,Urine Moderate /hpf; Bilirubin,Urine Negative (Negative); Clarity,Urine Hazy (Clear); Color,Urine Yellow (Yellw/Straw); Glucose,Urine (UA) Negative (Negative); Leukocyte Esterase,Urine Moderate (Negative); Nitrite,Urine Negative (Negative); Specific Gravity,Urine 1.005 (1.002-1.035)
--- NOTE | 2018-07-04 18:15 | P.PN ---
Subjective Interval history: Alert and Stable on T Bar with PM valve. family at bedside. Physical Exam Vital signs: Vital Signs 07/03/18 18:34 07/03/18 20:00 07/04/18 00:00 Temperature 99.2 F 98.4 F Pulse Rate 82 86 Respiratory Rate 20 20 Blood Pressure 122/57 L 99/46 L Pulse Oximetry 96 95 94 L 07/04/18 08:00 07/04/18 11:08 07/04/18 12:00 Temperature 98.7 F Pulse Rate 78 Respiratory Rate 14 16 Blood Pressure 102/88 Pulse Oximetry 92 L 97 07/04/18 17:58 Temperature Pulse Rate Respiratory Rate 12 Blood Pressure Pulse Oximetry Intake & Output 07/03/18 07/04/18 07/04/18 18:59 06:59 18:59 Intake Total 2040 / 2040 1160 / 1160 1460 / 1460 Output Total 200 / 200 1400 / 1400 900 / 900 Balance 1840 / 1840 -240 / -240 560 / 560 Weight 50.7 kg Intake: IV 1000 / 1000 1000 / 1000 D5W/1/2 NS Inj 1,000 ML @ 100 1000 / 1000 1000 / 1000 mls/hr IV.CONT .Q10H [facility] Rx#: [id number] Oral 0 / 0 0 / 0 Tube Feeding 0 / 0 360 / 360 360 / 360 Tube Irrigant 100 / 100 0 / 0 Water Bolus Amount 0 / 0 0 / 0 100 / 100 Other 540 / 540 400 / 400 Rbc As-3 Leukoreduced Unit 400 / 400 [id number] Intake (Blood Product) Amt 400 / 400 0 / 0 Rbc As-3 Leukoreduced Unit 0 / 0 0 / 0 [id number] Rbc As-3 Leukoreduced Unit 400 / 400 [id number] Mass Transfusion Protocol 0 / 0 400 / 400 Output: Urine 0 / 0 Stool 0 / 0 Urine/Stool Mix 0 / 0 Emesis 0 / 0 0 / 0 Urine Amount (Catheter) 800 / 800 900 / 900 Indwelling Urethral Catheter 800 / 800 900 / 900 Gastric Drainage 200 / 200 600 / 600 Gastrojejunostomy Tube 200 / 200 600 / 600 Jejunostomy Tube 0 / 0 Other: Other Intake Source Saline Solution Saline Solution # Voids 0 # Incontinent Voids 0 # Urine Diapers 0 Date of Last Bowel Movement 07/02/18 07/03/18 07/04/18 # Bowel Movements 2 # Incontinent Bowel Movements 1 # Emeses 0 0 Narrative: GENERAL: Thin chronically ill appearing female, not in any acute distress. Awake and alert. Family is at the bedside. SKIN: Warm and dry. +purplish discoloration of bilateral heels R>L. Both heels boggy. HEENT: Atraumatic. Normocephalic. Pupils equal and round. No scleral icterus. No injection or drainage. NECK: Trachea midline. Tracheostomy in place. No erythema noted at tracheostomy site CARDIOVASCULAR: occ wheezing but no crackles noted. RESPIRATORY: No accessory muscle use. Clear to auscultation. Breath sounds equal bilaterally. GASTROINTESTINAL: Abdomen soft, nondistended, nontender to palpation. +mild erythema surrounding the PEG site. +tissue protrusion at PEG site opening. No active leakage noted. Musculoskeletal: No clubbing, cyanosis or edema noted. NEUROLOGICAL: Awake and alert. No focal deficits. Able to move all extremities spontaneously. - Urinary Catheter Management Indwelling Urethral Catheter Cath placed during this visit: yes, but has since been removed by the nurse Reason for continuing: Chronic Urinary Retention Insertion date: 06/26/18 Insertion time: 00:30 Removal date: 06/26/18 Removal time: 00:00 Results - Labs CBC & Chem 7: 07/04/18 07:30 07/04/18 07:30 Laboratory Results - last 24 hr 07/03/18 07/04/18 07/04/18 10:47 07:30 07:30 WBC 14.0 H RBC 3.08 L Hgb 9.3 L D Hct 26.5 L MCV 86.1 MCH 30.3 MCHC 35.2 RDW 14.4 Plt Count 64 L MPV 11.2 H Retic Count Absolute Retic Sodium 136 Potassium 3.6 Chloride 103 Carbon Dioxide 23.5 Anion Gap 10 BUN 36 H Creatinine 1.53 H Estimated GFR 33 L Random Glucose 98 Calcium 7.4 L* Prot Corrected Calcium 8.3 L Total Protein 5.4 L Urine Color Urine Clarity Urine pH Ur Specific Cecil Urine Protein Urine Glucose (UA) Urine Ketones Urine Occult Blood Urine Nitrate Urine Bilirubin Urine Urobilinogen Ur Leukocyte Esterase Urine WBC Urine Bacteria Urine Yeast Micro UA Comment Ur Microscopic Review Urine Culture Comments MTS Gel Crossmatch See Detail 07/04/18 07/04/18 07:30 16:15 WBC RBC Hgb Hct MCV MCH MCHC RDW Plt Count MPV Retic Count 0.5 Absolute Retic 16.6 L Sodium Potassium Chloride Carbon Dioxide Anion Gap BUN Creatinine Estimated GFR Random Glucose Calcium Prot Corrected Calcium Total Protein Urine Color Yellow Urine Clarity Hazy H Urine pH 5.0 Ur Specific Cecil 1.005 Urine Protein Negative Urine Glucose (UA) Negative Urine Ketones Negative Urine Occult Blood Negative Urine Nitrate Negative Urine Bilirubin Negative Urine Urobilinogen Less than 2 Ur Leukocyte Esterase Moderate H Urine WBC 6 H Urine Bacteria Moderate H Urine Yeast Few H Micro UA Comment Cath-culture ind Ur Microscopic Review Not Reportable Urine Culture Comments Cath-cult indicated MTS Gel Crossmatch - Imaging Impressions Chest X-Ray 07/04/18 00:00 CONCLUSION: Progression of the apparent congestive failure. Venous Doppler Study 07/04/18 00:00 CONCLUSION: 1. Nonocclusive thrombus in the right common femoral vein and greater saphenous vein probably recanalized old clot for the most part. 2. Negative for thrombus in the left Assessment and Plan - Assessment (1) Respiratory failure Code(s): J96.90 - Respiratory failure, unspecified, unspecified whether with hypoxia or hypercapnia Status: Acute (2) Pneumonia Code(s): J18.9 - Pneumonia, unspecified organism Status: Acute (3) Status post trachelectomy Code(s): Z90.710 - Acquired absence of both cervix and uterus Status: Acute (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 Cont T collar at 30 % FIO2 . 2. Cont nebs with albuterol qid. PRN 3. Chest Xray Saturday 4. Cont Levsin .125 mg qid prn. 5. J tube feeds at 30 CC and advance 6. Levsin .125 mg TID Prn for secretions 7. Labs in am
--- NOTE | 2018-07-04 20:27 | XR ---
EXAM DATE: 07/04/2018 8:21 PM EST AGE/SEX: 73 years / Female INDICATIONS: Pain from fall. CLINICAL DATA: This is the patient's initial encounter. Patient reports that signs and symptoms have been present for 1 day and indicates a pain score of Nonresponsive. MEDICAL/SURGICAL HISTORY: Non-responsive. Non-responsive. COMPARISON: No prior exams available for comparison. FINDINGS: 3 views of the cervical spine. Tracheostomy tube is in place. Diffuse bone demineralization. C6 and C 7 are not well visualized on the lateral view. 2 mm anterolisthesis C4 on C5. No gross evidence of fr acture. Facet arthrosis bilaterally at C3-4, C4-5, and C5-6. CONCLUSION: Degenerative findings of the cervical spine. No fracture identified. C6 and C7 not well visualized on lateral view. Electronically signed by: Jarad Orr MD 07/04/2018 8:25 PM EST
--- NOTE | 2018-07-04 20:28 | XR ---
EXAM DATE: 07/04/2018 8:21 PM EST AGE/SEX: 73 years / Female INDICATIONS: Pain from fall. CLINICAL DATA: This is the patient's initial encounter. Patient reports that signs and symptoms have been present for 1 day and indicates a pain score of Nonresponsive. MEDICAL/SURGICAL HISTORY: Non-responsive. Non-responsive. COMPARISON: No prior exams available for comparison. FINDINGS: 3 views of the thoracic spine. Right-sided PICC line and tracheostomy tube in place. Bone alignment w ithin normal limits. No evidence of fracture. Moderate-sized osteophytes anteriorly of the mid to low er thoracic spine. CONCLUSION: Degenerative findings of the thoracic spine. No evidence of fracture. Electronically signed by: Jarad Orr MD 07/04/2018 8:26 PM EST
--- NOTE | 2018-07-04 20:29 | XR ---
EXAM DATE: 07/04/2018 8:23 PM EST AGE/SEX: 73 years / Female INDICATIONS: Pain from fall. CLINICAL DATA: This is the patient's initial encounter. Patient reports that signs and symptoms have been present for 1 day and indicates a pain score of Nonresponsive. MEDICAL/SURGICAL HISTORY: Non-responsive. Non-responsive. COMPARISON: No prior exams available for comparison. FINDINGS: 3 views of the lumbar spine. Diffuse bone demineralization. Transitional level at the lumbosacral viet ction will be labeled S1. Grade 1 anterolisthesis L5 on S1. Alignment otherwise within normal limits. Moderate-sized endplate osteophytes at every level of the lumbar spine. Mild to moderate bony facet hypertrophy at L4-5 and L5-S1. Diffuse arterial calcification. CONCLUSION: Degenerative findings of the lumbar spine. No evidence of fracture. Electronically signed by: Jarad Orr MD 07/04/2018 8:28 PM EST
--- NOTE | 2018-07-04 20:30 | CT ---
EXAM DATE: 07/04/2018 8:20 PM EST AGE/SEX: 73 years / Female INDICATIONS: Altered mental status. CLINICAL DATA: This is the patient's initial encounter. Patient reports that signs and symptoms have been present for 1 day and indicates a pain score of 0/10. MEDICAL/SURGICAL HISTORY: Carcinoma, skin cancer. Deep venous thrombosis. Cancer of the Larynx. Re spiratory failure. Radiation Therapy. Cholecystectomy. Tonsillectomy. Hernia repair. Adenoidectom y. RADIATION DOSE: 56.35 CTDI (mGy) COMPARISON: No prior exams available for comparison. TECHNIQUE: CT of the head without contrast. Using automated exposure control and adjustment of the mA and/or kV according to patient size, radiation dose was kept as low as reasonably achievable to ob tain optimal diagnostic quality images. DICOM format image data is available electronically for revi ew and comparison. FINDINGS: Cerebrum: The ventricles are normal for age. 6 mm round low density lesion in the right basal gangl ia could represent lacunar infarct, but there is history of head and neck tumor. No evidence of midli ne shift, mass lesion, hemorrhage or acute infarction. No extraaxial fluid collections are seen. Posterior Fossa: The cerebellum and brainstem are intact. The 4th ventricle is midline. The cerebe llopontine angle is unremarkable. Extracranial: The visualized portion of the orbits is intact. Skull: The calvaria is intact. No evidence of skull fracture. CONCLUSION: 1. Solitary 6 mm hypodense round lesion in the right basal ganglia is nonspecific on noncontrast CT. Patient has history of head and neck tumor. Differential considerations include lacunar infarct and a metastatic lesion. May consider further evaluation with MRI with and without contrast. . Electronically signed by: Gab Faria MD 07/04/2018 8:28 PM EST
[2018-07-05] MEDS: Levothyroxine 150 MCG Tablet J-TUBE SCH (05:06)
[2018-07-05] MEDS: Hyoscyamine Liq Drops 0.125 MG/ML 15 ML Bottle SL SCH ×4 (05:06→21:21)
[2018-07-05 07:45] LABS: Hematocrit 28.5 % (35.0-46.0); Hemoglobin 9.9 gm/dL (11.6-15.3); Mean Corpuscular HGB Conc 34.7 % (32.0-36.0); Mean Corpuscular Hemoglobin 30.1 pg (27.0-34.0); Mean Corpuscular Volume 86.8 fL (80.0-100.0); Mean Platelet Volume 11.5 fL (7.0-11.0); Platelet Count 64 th/mm3 (150-450); Red Blood Count 3.28 mil/mm3 (4.00-5.30); Red Cell Distribution Width 14.6 % (11.6-17.2); White Blood Count 15.3 th/mm3 (4.0-11.0)
[2018-07-05 08:23] LABS: Calcium 7.9 mg/dL (8.5-10.1); Carbon Dioxide 24.4 meq/L (21.0-32.0); Potassium 3.5 meq/L (3.5-5.1)
--- NOTE | 2018-07-05 08:47 | P.PNIM ---
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 Notable coughing of secretions. Denies pain and discomfort. Denies increase SOB/ dyspnea. Denies chest pain, palpitations, headaches, dizziness. Denies fevers, chills, n/v/d. Denies dysuria. Physical Exam Vital signs: Vital Signs 07/04/18 11:08 07/04/18 12:00 07/04/18 17:58 Temperature 98.7 F Pulse Rate 78 Respiratory Rate 16 12 Blood Pressure 102/88 Pulse Oximetry 92 L 97 07/04/18 18:29 07/04/18 19:29 07/04/18 20:29 Temperature 98.9 F 97.8 F 97.6 F Pulse Rate 118 H 87 85 Respiratory Rate 14 21 21 Blood Pressure 100/55 L 140/60 95/49 L Pulse Oximetry 95 100 100 07/04/18 21:29 07/04/18 23:05 07/04/18 23:14 Temperature 97.8 F 97.8 F Pulse Rate 87 85 Respiratory Rate 18 Blood Pressure 100/40 L 114/50 L Pulse Oximetry 97 95 96 07/05/18 01:29 07/05/18 05:21 07/05/18 05:29 Temperature 98.5 F 98.1 F 98.7 F Pulse Rate 83 74 Respiratory Rate 20 18 Blood Pressure 119/57 L 96/74 L 100/62 Pulse Oximetry 100 95 95 Intake & Output 07/04/18 07/05/18 07/05/18 18:59 06:59 18:59 Intake Total 1460 / 1460 1650 / 1650 Output Total 900 / 900 1999 / 1999 Balance 560 / 560 -350 / -350 Weight 51.4 kg Intake: IV 1000 / 1000 1250 / 1250 D5W/1/2 NS Inj 1,000 ML @ 65 1000 / 1000 1000 / 1000 mls/hr IV.CONT .[id number] [facility] Rx# :[id number] Tube Feeding 360 / 360 250 / 250 Tube Irrigant 0 / 0 150 / 150 Water Bolus Amount 100 / 100 Output: Urine Amount (Catheter) 900 / 900 1400 / 1400 Indwelling Urethral Catheter 900 / 900 1400 / 1400 Gastric Drainage 600 / 600 Gastrojejunostomy Tube 600 / 600 Other: Date of Last Bowel Movement 07/04/18 07/04/18 Narrative: GENERAL: This is a thin appearing elderly patient, in no apparent distress. SKIN: Warm and dry. Pale. Both heels boggy. HEENT: Normocephalic. Pupils equal round and reactive. Nose without bleeding. Airway patent. NECK: Trachea midline. Tracheostomy in place. CARDIOVASCULAR: Regular rate and rhythm without murmurs, gallops, or rubs. RESPIRATORY: Coarse breath sounds with mild expiratory wheeze. Secretions suctioned moderate amount of moderately thick yellow colored secretions. GASTROINTESTINAL: Abdomen soft, non-tender, nondistended. Bowel Sounds normoactive x4. PEG in place.+mild erythema surrounding the PEG site. No leak noted. MUSCULOSKELETAL: Extremities without clubbing, cyanosis, or edema. NEUROLOGICAL: Awake and alert. Moves all extremities. Mouthing words. - Urinary Catheter Management Indwelling Urethral Catheter Cath placed during this visit: yes, but has since been removed by the nurse Reason for continuing: Acute urinary retention Insertion date: 06/26/18 Insertion time: 00:30 Removal date: 06/26/18 Removal time: 00:00 Results - Labs CBC & Chem 7: 07/06/18 05:50 07/06/18 05:50 Laboratory Results - last 24 hr 07/04/18 07/05/18 07/05/18 16:15 05:48 05:48 WBC 15.3 H RBC 3.28 L Hgb 9.9 L Hct 28.5 L MCV 86.8 MCH 30.1 MCHC 34.7 RDW 14.6 Plt Count 64 L MPV 11.5 H Prelim Diff (Auto) Manual diff required Differential Comment . Sodium 138 Potassium 3.5 Chloride 104 Carbon Dioxide 24.4 Anion Gap 10 BUN 34 H Creatinine 1.48 H Estimated GFR 35 L Random Glucose 104 Calcium 7.9 L Urine Color Yellow Urine Clarity Hazy H Urine pH 5.0 Ur Specific [place] 1.005 Urine Protein Negative Urine Glucose (UA) Negative Urine Ketones Negative Urine Occult Blood Negative Urine Nitrate Negative Urine Bilirubin Negative Urine Urobilinogen Less than 2 Ur Leukocyte Esterase Moderate H Urine WBC 6 H Urine Bacteria Moderate H Urine Yeast Few H Micro UA Comment Cath-culture ind Ur Microscopic Review Not Reportable Urine Culture Comments Cath-cult indicated - Imaging Impressions Chest X-Ray 07/04/18 00:00 CONCLUSION: Progression of the apparent congestive failure. Venous Doppler Study 07/04/18 00:00 CONCLUSION: 1. Nonocclusive thrombus in the right common femoral vein and greater saphenous vein probably recanalized old clot for the most part. 2. Negative for thrombus in the left Head CT 07/04/18 18:56 CONCLUSION: 1. Solitary 6 mm hypodense round lesion in the right basal ganglia is nonspecific on noncontrast CT. Patient has history of head and neck tumor. Differential considerations include lacunar infarct and a metastatic lesion. May consider further evaluation with MRI with and without contrast. . Cervical Spine X-Ray 07/04/18 18:57 CONCLUSION: Degenerative findings of the cervical spine. No fracture identified. C6 and C7 not well visualized on lateral view. Lumbar Spine X-Ray 07/04/18 18:59 CONCLUSION: Degenerative findings of the lumbar spine. No evidence of fracture. Thoracic Spine X-Ray 07/04/18 18:59 CONCLUSION: Degenerative findings of the thoracic spine. No evidence of fracture. Assessment and Plan - Assessment (1) Respiratory failure Code(s): J96.90 - Respiratory failure, unspecified, unspecified whether with hypoxia or hypercapnia Status: Acute (2) Pneumonia Code(s): J18.9 - Pneumonia, unspecified organism Status: Acute (3) Status post trachelectomy Code(s): Z90.710 - Acquired absence of both cervix and uterus Status: Acute (4) Carcinoma of supraglottis Code(s): C32.1 - Malignant neoplasm of supraglottis Status: Acute (5) COPD (chronic obstructive pulmonary disease) Code(s): J44.9 - Chronic obstructive pulmonary disease, unspecified Status: Acute (6) Dysphagia Code(s): R13.10 - Dysphagia, unspecified Status: Chronic (7) Lung nodule, solitary Code(s): R91.1 - Solitary pulmonary nodule Status: Acute (8) Lung nodules Code(s): R91.8 - Other nonspecific abnormal finding of lung field Status: Acute - Plan 73-year-old female with 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 The rapid response was called and the patient was transferred to ICU where she was placed on 60% oxygenation via trach collar. [facility] reconsulted 05/23 due to hypotension. Currently managed for recurrent respiratory infections with MDRO managed by ID. CT chest does demonstrate a moderate left pleural effusion with left lower lobe atelectasis s/p thoracocentesis. Patient was again sent over to the ICU on 05/29 for acute pulmonary edema with further fever spikes. Patient underwent diuresis and was made a no code, was eventually stabilized and transition back to hospitalist care. S/P Fall -Fell last night 07/04/18 as per nursing -CT with 6 mm lesion recommended MRI. MRI ordered. -No neurological changes noted -Thoracic spine x-ray degenerative findings no fracture -Lumbar spine x-ray degenerative findings no evidence of fracture -Cervical spine x-ray degenerative findings no fracture. C6 and C7 not well visualized on lateral view -Neuro checks. Fall precaution Fluid overload, patient on IVF for low BP and received transfusion 2u PRBCs previously -CXR shows coarse interstitial changes throughout both lung, moderate edema that has progressed. -IV Lasix 20mg x 1 yesterday, increase secretions, Lasix 40mg x1 dose now -monitor respiratory status Leukocytosis -11.3 -->14 -->15.3 -patient is afebrile, does not appear toxic -CXR shows fluid overload as above -UA abnormal pending culture -Previously with multidrug-resistant Pseudomonas. Will refer to infectious disease for antibiotic coverage, if needed -Previous UTI, MDRO Pseudomonas, tx with Avycaz by ID GJ tube with leakage Soft tissue mass thru PEG site -s/p cauterization by Dr. Bautista. GJ tube not in proper position. He was able to deflate the balloon and place in proper position. 1800cc of yellow bilious drainage from GJ tube. -s/p IR GJ tube placement 06/30. +persistent leakage around PEG site improved with escalation of PPI. Tolerating tube feeds at 30cc/hr, titrate up slowly and monitor for recurrence of leakage. Goal 45ml -monitor skin around PEG site, mild surrounding erythema noted, continue with present tx Pancytopenia d/t myelodysplastic syndrome Per Heme/Onc: pancytopenia is due to MDS. She is not a candidate for chemo. Recommendation for pancytopenia is transfusion of PRBC (if Hg <7) and plat(if plat <15) support. -Lovenox held due to thrombocytopenia. Repeat doppler 05/30 shows recannulization. Anticoagulation recommended with platelet count consistently greater than 75,000; otherwise hold. -07/02 patients Hgb dropped to 6.4. Transfused 2u PRBCS. Repeat hgb following transfusion 9.3. -Monitor H&H History of DVT, Right lower extremity -Has complained of pain but now more of ankle pain -Previously was on Lovenox but held due to thrombocytopenia as above. Platelet 64, Lovenox can only be restarted if platelet is at 75 as per hematology recommendation -Lovenox has been continuously held. Consulted hematology for further recommendations. Acute kidney injury with CKD -Improved with IVF hydration -avoid nephrotoxic agents -continue to monitor kidney function as indicated Intermittent hypotension -Hypotensive, improved with blood transfusion and IVF -Monitoring and keep map above 60 MDRO PSAE persistent colonization both sputum and urine PNA, MDRO PSAE, Steno malt 05/29 History of squamous cell carcinoma of the larynx now status post tracheostomy due to recurrent aspiration Spiculated right upper lobe pulmonary nodule, multiple R pulmonary nodules -Dr. Pineda has discussed risk/ benefits of biopsy with patient and her son on 05/05 and at that time they opted to defer biopsy. -Moderate pleural effusion s/p thora on 05/23, Cultures neg. -ID followed patient, Dr. Canchola, Bld Cx from 05/29 negative, Urine Cx from 05/29, negative, Sputum Cx on 05/29+ -Pseudomonas MDR, sensitive to only tobramycin. 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 Repeat urine culture pending, patient has elevated WBC as above Right hip and right knee pain-patient complaining of right hip pain and knee pain No history of trauma to knee, xray unremarkable. -Possibly due to clot burden??. Patient off Lovenox since 05/30. -Continue pain control with [place] and Tylenol. Trial of Lidoderm patch and K thermia. -Lyrica BID. Depression/anxiety -Continue Lexapro and Wellbutrin, Continue Klonopin through the G-tube every 8 hours, Temazepam as needed for insomnia Gastroesophageal reflux disease -Continue PPI and lactobacillus through the G-tube to gravity, discussed with nurse, gauze underneath to prevent skin maceration. Diarrhea -Likely secondary to antibiotics, improved. C. difficile studies were negative on 05/25, Continue Lomotil. R 1st digit of foot with increased erythema s/p trimming of ingrow toenail -Podiatry recs from 06/01: Recommend triple antibiotic with Band-Aid to right hallux medial border. DVT PPX, SCD Left, Lovenox held Code Status DNR Discussed Condition With Patient, nursing staff, Dr. Beyer Discharge Planning: DC when clinically improved. Placement to be addressed by CM. Will need SNF placement.
[2018-07-05 09:07] LABS: Blast Cells 6 % (0-0); Eosinophils 3 % (0-4); Lymphocytes 14 % (9-44); Metamyelocytes 3 % (0-1); Monocytes 12 % (0-8); Myelocytes 15 % (0-0)
[2018-07-05 09:09] LABS: Toxic Vacuolation Present
[2018-07-05] MEDS: Loperamide Liq 2 MG/10 ML UDC J-TUBE SCH ×4 (10:06→21:18)
[2018-07-05] MEDS: Ascorbic Acid 500 MG Tablet J-TUBE SCH ×2 (10:07→21:17)
[2018-07-05] MEDS: Lactobacillus Acidophilus/L. Spores Tablet J-TUBE SCH ×3 (10:07→17:48)
[2018-07-05] MEDS: Heparin Central Flush 100 UNIT/ML 5 ML Vial IV.FLUSH SCH (10:09)
[2018-07-05] MEDS: buPROPion 75 MG Tablet J-TUBE SCH ×2 (10:09→21:18)
[2018-07-05] MEDS: Lidocaine 5% Patch T-DERMAL SCH (10:10)
--- NOTE | 2018-07-05 11:38 | P.PNONC ---
Subjective Interval history: Afebrile Patient resting in bed watching TV in no acute distress Complains of soreness around gastric tube insertion site No bleeding Patient received 2 units packed red blood cells on 07/03 for hemoglobin of 6.4. Objective Vital Signs/Intake & Output: Vital Signs 07/04/18 12:00 07/04/18 17:58 07/04/18 18:29 Temperature 98.7 F 98.9 F Pulse Rate 78 118 H Respiratory Rate 16 12 14 Blood Pressure 102/88 100/55 L Pulse Oximetry 97 95 07/04/18 19:29 07/04/18 20:29 07/04/18 21:29 Temperature 97.8 F 97.6 F 97.8 F Pulse Rate 87 85 87 Respiratory Rate 21 21 Blood Pressure 140/60 95/49 L 100/40 L Pulse Oximetry 100 100 97 07/04/18 23:05 07/04/18 23:14 07/05/18 01:29 Temperature 97.8 F 98.5 F Pulse Rate 85 83 Respiratory Rate 18 20 Blood Pressure 114/50 L 119/57 L Pulse Oximetry 95 96 100 07/05/18 05:21 07/05/18 05:29 Temperature 98.1 F 98.7 F Pulse Rate 74 Respiratory Rate 18 Blood Pressure 96/74 L 100/62 Pulse Oximetry 95 95 Intake & Output 07/04/18 07/05/18 07/05/18 18:59 06:59 18:59 Intake Total 1460 / 1460 1650 / 1650 Output Total 900 / 900 2000 / 2000 Balance 560 / 560 -350 / -350 Weight 113 lb 5.082 oz Intake: IV 1000 / 1000 1250 / 1250 D5W/1/2 NS Inj 1,000 ML @ 65 1000 / 1000 1000 / 1000 mls/hr IV.CONT .[id number] [facility] Rx# :[id number] Tube Feeding 360 / 360 250 / 250 Tube Irrigant 0 / 0 150 / 150 Water Bolus Amount 100 / 100 Output: Urine Amount (Catheter) 900 / 900 1400 / 1400 Indwelling Urethral Catheter 900 / 900 1400 / 1400 Gastric Drainage 600 / 600 Gastrojejunostomy Tube 600 / 600 Other: Date of Last Bowel Movement 07/04/18 07/04/18 Result Diagrams: 07/05/18 05:48 07/05/18 05:48 Laboratory Results: Laboratory Results - last 24 hr 07/04/18 07/05/18 07/05/18 16:15 05:48 05:48 WBC 15.3 H RBC 3.28 L Hgb 9.9 L Hct 28.5 L MCV 86.8 MCH 30.1 MCHC 34.7 RDW 14.6 Plt Count 64 L MPV 11.5 H Prelim Diff (Auto) Manual diff required WBC Differential Manual diff final Seg Neuts % (Manual) 44 Band Neuts % (Manual) 3 Lymphocytes % (Manual) 14 Monocytes % (Manual) 12 H Eosinophils % (Manual) 3 Metamyelocytes % (Man) 3 H Myelocytes % (Man) 15 H Blast Cells % (Manual) 6 H Abs Neuts (Manual) 9.9 H Differential Comment . Toxic Vacuolation Present H Platelet Estimate Low L Platelet Morphology Enlarged H Keratocytes Occ H Sodium 138 Potassium 3.5 Chloride 104 Carbon Dioxide 24.4 Anion Gap 10 BUN 34 H Creatinine 1.48 H Estimated GFR 35 L Random Glucose 104 Calcium 7.9 L Urine Color Yellow Urine Clarity Hazy H Urine pH 5.0 Ur Specific [place] 1.005 Urine Protein Negative Urine Glucose (UA) Negative Urine Ketones Negative Urine Occult Blood Negative Urine Nitrate Negative Urine Bilirubin Negative Urine Urobilinogen Less than 2 Ur Leukocyte Esterase Moderate H Urine WBC 6 H Urine Bacteria Moderate H Urine Yeast Few H Micro UA Comment Cath-culture ind Ur Microscopic Review Not Reportable Urine Culture Comments Cath-cult indicated Imaging Studies: Impressions Chest X-Ray 07/04/18 00:00 CONCLUSION: Progression of the apparent congestive failure. Venous Doppler Study 07/04/18 00:00 CONCLUSION: 1. Nonocclusive thrombus in the right common femoral vein and greater saphenous vein probably recanalized old clot for the most part. 2. Negative for thrombus in the left Head CT 07/04/18 18:56 CONCLUSION: 1. Solitary 6 mm hypodense round lesion in the right basal ganglia is nonspecific on noncontrast CT. Patient has history of head and neck tumor. Differential considerations include lacunar infarct and a metastatic lesion. May consider further evaluation with MRI with and without contrast. . Cervical Spine X-Ray 07/04/18 18:57 CONCLUSION: Degenerative findings of the cervical spine. No fracture identified. C6 and C7 not well visualized on lateral view. Lumbar Spine X-Ray 07/04/18 18:59 CONCLUSION: Degenerative findings of the lumbar spine. No evidence of fracture. Thoracic Spine X-Ray 07/04/18 18:59 CONCLUSION: Degenerative findings of the thoracic spine. No evidence of fracture. Medications: Active Medications Generic Name Dose Route Start Last Admin Trade Name Freq PRN Reason Stop Dose Admin Acetaminophen 650 mg 04/26/18 15:46 05/28/18 20:42 Tylenol J-TUBE 650 mg Q4H PRN Administration ELEVATED TEMP/HEADACHE Hydrocodone Bitart/Acetaminophen 1 tab 04/23/18 20:59 07/01/18 13:12 [place] 5/325 J-TUBE 1 tab Q4H PRN Administration PAIN 2-5 Hydrocodone Bitart/Acetaminophen 2 tab 04/23/18 20:59 06/29/18 17:08 [place] 5/325 J-TUBE 2 tab Q4H PRN Administration PAIN 6-10 Hydrocodone Bitart/Acetaminophen 1 tab 07/02/18 16:00 07/04/18 15:42 [place] 5/325 J-TUBE 1 tab Q8H ANN Administration Albuterol 1 ampul 04/23/18 21:09 06/02/18 20:58 Duoneb Neb (Prn) NEB 1 ampul Q2HR NEB PRN Administration WHEEZING Ascorbic Acid 500 mg 04/26/18 21:00 07/05/18 10:07 Vitamin C J-TUBE 500 mg BID ANN Administration Bupropion HCl 150 mg 04/23/18 21:00 07/05/18 10:09 Wellbutrin J-TUBE 150 mg BID ANN Administration Cetirizine HCl 10 mg 04/26/18 21:00 07/04/18 20:33 Zyrtec J-TUBE 10 mg HS ANN Administration Clonazepam 0.5 mg 06/07/18 06:59 06/09/18 21:25 Klonopin J-TUBE 0.5 mg Q8HR PRN Administration ANXIETY Diphenhydramine HCl 25 mg 04/23/18 20:59 06/07/18 04:34 Benadryl J-TUBE 25 mg Q4H PRN Administration ITCHING Enoxaparin Sodium 60 mg 04/24/18 00:00 05/30/18 00:15 Lovenox Inj SQ 60 mg Q24H ANN Administration Escitalopram Oxalate 20 mg 04/24/18 09:00 07/05/18 11:07 Lexapro J-TUBE 20 mg DAILY ANN Administration Glycopyrrolate 0.4 mg 05/12/18 20:58 07/04/18 09:12 Robinul Inj IV.PUSH 0.4 mg Q8H PRN Administration THICK SECRETIONS Heparin Sodium (Porcine) 0 unit 06/03/18 09:00 07/05/18 10:09 Heparin Central Flush IV.FLUSH 200 unit DAILY ANN Administration Heparin Sodium (Porcine) 0 unit 06/02/18 15:20 06/03/18 00:38 Heparin Central Flush IV.FLUSH 200 unit PRN PRN Administration Flush PICC Line Hyoscyamine 0.125 mg 04/26/18 16:00 07/05/18 11:07 Levsin Liq SL 0.125 mg Q6H ANN Administration Lactobacillus Acidophilus 1 tab 04/24/18 09:00 07/05/18 10:07 Lactinex J-TUBE 1 tab TID ANN Administration Lansoprazole 30 mg 07/02/18 21:00 07/05/18 10:07 Prevacid Solutab J-TUBE 30 mg BID ANN Administration Levothyroxine Sodium 150 mcg 05/09/18 12:00 07/05/18 05:06 Synthroid J-TUBE 150 mcg DAILY@0600 ANN Administration Lidocaine HCl 2.5 ml 04/27/18 21:23 05/02/18 21:05 Xylocaine 2% Viscous OROPHARYNG 2.5 ml Q6H PRN Administration SEE LABEL COMMENTS Lidocaine HCl 1 patch 06/28/18 15:45 07/05/18 10:10 Lidoderm 5% Patch.12 Hr T-DERMAL 1 patch DAILY ANN Administration Loperamide HCl 2 mg 06/07/18 09:00 07/05/18 10:06 Imodium Liq J-TUBE 2 mg QID ANN Administration Morphine Sulfate 5 mg 04/23/18 20:59 07/02/18 21:57 Roxanol Liq SL 5 mg Q4H PRN Administration BREAKTHROUGH pain 2-10 Multivitamins 1 tab 04/27/18 09:00 07/05/18 10:09 Theragran J-TUBE 1 tab DAILY ANN Administration Neomycin/Polymyxin/Bacitracin 1 applicatio 06/27/18 21:00 07/04/18 09:12 Neosporin Oint TOPICAL 1 applicatio BID ANN Administration Nystatin/Triamcinolone Acetonide 1 applicatio 07/01/18 21:00 07/05/18 10:10 Mycolog Ii Cream TOPICAL 1 applicatio BID ANN Administration Ondansetron HCl 4 mg 05/15/18 13:35 06/27/18 06:47 Zofran Odt PO 4 mg Q6H PRN Administration NAUSEA OR VOMITING Patch Removal 1 each 06/28/18 21:00 07/04/18 20:32 Remove Old Patch T-DERMAL 1 each HS ANN Administration Pregabalin 75 mg 07/01/18 11:11 07/04/18 09:13 Lyrica G-TUBE 75 mg BID ANN Administration Simethicone 125 mg 04/23/18 20:59 07/04/18 09:13 Phazyme Chew J-TUBE 125 mg Q4H PRN Administration RELATING TO BLOATING Sodium Chloride 0 ml 06/03/18 09:00 07/05/18 10:09 Ns Flush IV.FLUSH 5 ml DAILY ANN Administration Sodium Chloride 0 ml 06/02/18 15:20 06/03/18 00:39 Ns Flush IV.FLUSH 5 ml PRN PRN Administration FLUSH AFTER USING IV ACCESS Sodium Chloride 0 ml 06/02/18 15:20 06/07/18 20:18 Ns Flush IV.FLUSH 10 ml PRN PRN Administration Flush After Blood Draws Temazepam 15 mg 04/26/18 16:45 05/16/18 20:17 Restoril J-TUBE 15 mg HS PRN Administration INSOMNIA Zinc Oxide 1 applicatio 05/16/18 13:00 07/05/18 10:11 Zinc Oxide 20% Oint TOPICAL 1 applicatio BID ANN Administration Zinc Sulfate 220 mg 04/24/18 09:00 07/05/18 10:07 Zinc-220 J-TUBE 220 mg DAILY ANN Administration Objective Remarks: GENERAL: Elderly female resting in bed in no obvious distress SKIN: Warm and dry. HEAD: Normocephalic. EYES: No scleral icterus. No injection or drainage. NECK: Supple, trachea midline. Tracheostomy in place CARDIOVASCULAR: Regular rate and rhythm without murmurs. RESPIRATORY: Mild scattered rhonchi anteriorly. Tracheotomy with trach collar GASTROINTESTINAL: Abdomen soft, non-tender, nondistended. EXTREMITIES: No cyanosis, or edema. MUSCULOSKELETAL: Generalized weakness NEUROLOGICAL: Follows commands. Awake and alert. Assessment/Plan (1) Lung nodules Code(s): R91.8 - Other nonspecific abnormal finding of lung field Status: Acute - Plan 73-year-old female diagnosed in 2014 treated with concurrent chemotherapy with history of supraglottic laryngeal cancer and radiation. The patient was subsequently lost to follow-up and was readmitted in January 2018. Hematology service was consulted for severe anemia. The patient ultimately underwent bone marrow biopsy in March that showed myelodysplastic syndrome. Cytogenetics show that she is high risk. Throughout the course of the hospitalization she was also found to have a right upper lobe lung nodule and 2 new subcentimeter lung nodules adjacent to the original mass. 1. Continue supportive transfusions for pancytopenia. Transfuse for hemoglobin less than 7, platelet count less than 15,000. 2. Patient has high risk myelodysplastic syndrome and is not a candidate for treatment. 3. Patient on Lovenox injection, currently on hold. She has history of DVT. Would recommend continuing anticoagulation with platelet count consistently greater than 75,000. 4. Per RN, patient had fall late yesterday. No acute fracture. CT of the head did show 6 mm hypodense round lesion in the right basal ganglia, nonspecific. One differential discussed was metastatic disease from her history of head/neck cancer. One could consider MRI for further differentiation. - Attending Statement The exam, history, and the medical decision-making described in the above note were completed with the assistance of the mid-level provider. I reviewed and agree with the findings presented. I attest that I had a [id number] encounter with the patient on the same day, and personally performed and documented my assessment and findings in the medical record. 73 yoF with cytopenias due to MDS. s/p fall with CT showing abnormality in basal ganglia. MRI pending.
[2018-07-06] MEDS: Hyoscyamine Liq Drops 0.125 MG/ML 15 ML Bottle SL SCH ×4 (03:35→21:14)
[2018-07-06] MEDS: Levothyroxine 150 MCG Tablet J-TUBE SCH (05:22)
[2018-07-06 06:33] LABS: Hematocrit 29.5 % (35.0-46.0); Hemoglobin 10.3 gm/dL (11.6-15.3); Mean Corpuscular HGB Conc 34.8 % (32.0-36.0); Mean Corpuscular Hemoglobin 29.6 pg (27.0-34.0); Mean Platelet Volume 10.9 fL (7.0-11.0); Platelet Count 54 th/mm3 (150-450); Red Blood Count 3.47 mil/mm3 (4.00-5.30); Red Cell Distribution Width 14.7 % (11.6-17.2); White Blood Count 13.5 th/mm3 (4.0-11.0)
[2018-07-06 06:55] LABS: Calcium 8.1 mg/dL (8.5-10.1); Carbon Dioxide 25.1 meq/L (21.0-32.0); Potassium 3.4 meq/L (3.5-5.1)
[2018-07-06] MEDS ORDERED: Potassium Chloride 20 MEQ Pwd Pkt NG/OG ONE (07:45)
[2018-07-06] MEDS ORDERED: Potassium Chloride 25 MEQ Effervescent Tablet PO ONE (08:30)
[2018-07-06] MEDS ORDERED: Potassium Chloride 25 MEQ Effervescent Tablet NG/OG ONE (08:30)
[2018-07-06] MEDS: Ascorbic Acid 500 MG Tablet J-TUBE SCH ×2 (08:32→21:14)
[2018-07-06] MEDS: Loperamide Liq 2 MG/10 ML UDC J-TUBE SCH ×4 (08:32→21:13)
[2018-07-06] MEDS: Lactobacillus Acidophilus/L. Spores Tablet J-TUBE SCH ×3 (08:32→17:20)
[2018-07-06] MEDS: Lidocaine 5% Patch T-DERMAL SCH (08:33)
[2018-07-06] MEDS: Heparin Central Flush 100 UNIT/ML 5 ML Vial IV.FLUSH SCH (08:34)
[2018-07-06] MEDS: buPROPion 75 MG Tablet J-TUBE SCH ×2 (08:36→21:14)
--- NOTE | 2018-07-06 08:38 | P.PNIM ---
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 Patient seen and examined today. States she is trying to get rest. Reports Right leg pain, thigh area, ankle area. No acute issues overnight as per nursing. Reports low grade temp 99 but patient room was warm. Pt able to cough, denies increase SOB. Denies chest pain, headaches. Denies nausea, vomiting. Physical Exam Vital signs: Vital Signs 07/05/18 12:03 07/05/18 20:00 07/05/18 21:29 Temperature 98.6 F 98.6 F Pulse Rate 67 67 Respiratory Rate 20 20 Blood Pressure 104/51 L 104/51 L Pulse Oximetry 95 95 95 07/05/18 23:10 Temperature Pulse Rate Respiratory Rate Blood Pressure Pulse Oximetry 98 Intake & Output 07/05/18 07/06/18 07/06/18 18:59 06:59 18:59 Intake Total 496 / 496 780 / 780 Output Total 350 / 350 1850 / 1850 Balance 146 / 146 -1070 / -1070 Weight 50.7 kg Intake: Oral 0 / 0 Tube Feeding 346 / 346 480 / 480 Tube Irrigant 150 / 150 Water Bolus Amount 300 / 300 Output: Emesis 0 / 0 Urine Amount (Catheter) 350 / 350 1050 / 1050 Indwelling Urethral Catheter 350 / 350 1050 / 1050 Gastric Drainage 800 / 800 Gastrojejunostomy Tube 800 / 800 Jejunostomy Tube 0 / 0 Other: Date of Last Bowel Movement 07/05/18 07/05/18 # Incontinent Bowel Movements 1 1 # [place] 0 Narrative: GENERAL: This is a thin appearing elderly patient, in no apparent distress. SKIN: Warm and dry. Pale. Both heels boggy. HEENT: Normocephalic. Pupils equal round and reactive. Nose without bleeding. Airway patent. NECK: Trachea midline. Tracheostomy in place. CARDIOVASCULAR: Regular rate and rhythm without murmurs, gallops, or rubs. RESPIRATORY: Coarse breath sounds with mild expiratory wheeze. Secretions suctioned moderate amount of moderately thick yellow colored secretions. GASTROINTESTINAL: Abdomen soft, non-tender, nondistended. Bowel Sounds normoactive x4. GJ Tube in place, G to suction, J to TF. GTube bilious drain. No leak noted surrounding site. MUSCULOSKELETAL: Extremities without clubbing, cyanosis, or edema. NEUROLOGICAL: Awake and alert. Moves all extremities. Responds to questions and commands. - Urinary Catheter Management Indwelling Urethral Catheter Cath placed during this visit: yes, but has since been removed by the nurse Reason for continuing: Acute urinary retention Insertion date: 06/26/18 Insertion time: 00:30 Removal date: 06/26/18 Removal time: 00:00 Results - Labs CBC & Chem 7: 07/06/18 05:50 07/06/18 05:50 Laboratory Results - last 24 hr 07/05/18 07/06/18 07/06/18 05:48 05:50 05:50 WBC 13.5 H RBC 3.47 L Hgb 10.3 L Hct 29.5 L MCV 85.0 MCH 29.6 MCHC 34.8 RDW 14.7 Plt Count 54 L MPV 10.9 Prelim Diff (Auto) Manual diff required WBC Differential Manual diff final Seg Neuts % (Manual) 44 Band Neuts % (Manual) 3 Lymphocytes % (Manual) 14 Monocytes % (Manual) 12 H Eosinophils % (Manual) 3 Metamyelocytes % (Man) 3 H Myelocytes % (Man) 15 H Blast Cells % (Manual) 6 H Abs Neuts (Manual) 9.9 H Differential Comment . Toxic Vacuolation Present H Platelet Estimate Low L Platelet Morphology Enlarged H Keratocytes Occ H Sodium 139 Potassium 3.4 L Chloride 103 Carbon Dioxide 25.1 Anion Gap 11 BUN 38 H Creatinine 1.54 H Estimated GFR 33 L Random Glucose 112 H Calcium 8.1 L Microbiology 07/04/18 16:15 Clean Catch Urine Urine Culture - Preliminary Immature growth - reincubate Assessment and Plan - Assessment (1) Respiratory failure Code(s): J96.90 - Respiratory failure, unspecified, unspecified whether with hypoxia or hypercapnia Status: Acute (2) Pneumonia Code(s): J18.9 - Pneumonia, unspecified organism Status: Acute (3) Status post trachelectomy Code(s): Z90.710 - Acquired absence of both cervix and uterus Status: Acute (4) Carcinoma of supraglottis Code(s): C32.1 - Malignant neoplasm of supraglottis Status: Acute (5) COPD (chronic obstructive pulmonary disease) Code(s): J44.9 - Chronic obstructive pulmonary disease, unspecified Status: Acute (6) Dysphagia Code(s): R13.10 - Dysphagia, unspecified Status: Chronic (7) Lung nodule, solitary Code(s): R91.1 - Solitary pulmonary nodule Status: Acute (8) Lung nodules Code(s): R91.8 - Other nonspecific abnormal finding of lung field Status: Acute - Plan 73-year-old female with 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 The rapid response was called and the patient was transferred to ICU where she was placed on 60% oxygenation via trach collar. [facility] reconsulted 05/23 due to hypotension. Currently managed for recurrent respiratory infections with MDRO managed by ID. CT chest does demonstrate a moderate left pleural effusion with left lower lobe atelectasis s/p thoracocentesis. Patient was again sent over to the ICU on 05/29 for acute pulmonary edema with further fever spikes. Patient underwent diuresis and was made a no code, was eventually stabilized and transition back to hospitalist care. S/P Fall -Fell last night 07/04/18 as per nursing -CT with 6 mm lesion recommended MRI. MRI ordered. -No neurological changes noted -Thoracic spine x-ray degenerative findings no fracture -Lumbar spine x-ray degenerative findings no evidence of fracture -Cervical spine x-ray degenerative findings no fracture. C6 and C7 not well visualized on lateral view -Neuro checks. Fall precaution -MRI pending Fluid overload, patient on IVF for low BP and received transfusion 2u PRBCs previously -CXR shows coarse interstitial changes throughout both lung, moderate edema that has progressed. -IV Lasix 20mg x 1 yesterday, increase secretions, Lasix 40mg x1 dose now -monitor respiratory status -Off IVF, REVIEW CONSULTANT at baseline Leukocytosis -11.3 -->14 -->15.3 --> 13.5 -CXR shows fluid overload as above -UA abnormal, lolly tropicalis -Previously with multidrug-resistant Pseudomonas. Will refer to infectious disease for antibiotic coverage, if needed -Previous UTI, MDRO Pseudomonas, tx with Avycaz by ID -Monitor, pt has low grade temp. -Will give fluconazole, have ID follow GJ tube with leakage Soft tissue mass thru PEG site -s/p cauterization by Dr. Bautista. GJ tube not in proper position. He was able to deflate the balloon and place in proper position. 1800cc of yellow bilious drainage from GJ tube. -s/p IR GJ tube placement 06/30. Leakage around PEG site improved with escalation of PPI. -Tolerating tube feeds at 40cc/hr, titrate up slowly and monitor for recurrence of leakage. Goal 45ml -monitor skin around PEG site,slight erythema noted, continue with present tx. No leakage Pancytopenia d/t myelodysplastic syndrome Per Heme/Onc: pancytopenia is due to MDS. She is not a candidate for chemo. Recommendation for pancytopenia is transfusion of PRBC (if Hg <7) and plat(if plat <15) support. -Lovenox held due to thrombocytopenia. Repeat Doppler 05/30 shows recannulization. Anticoagulation recommended with platelet count consistently greater than 75,000; otherwise hold. -07/02 patients Hgb dropped to 6.4. Transfused 2u PRBCS. Repeat hgb following transfusion 9.3. -Monitor H&H History of DVT, Right lower extremity -Has complained of pain but now more of ankle pain -Previously was on Lovenox but held due to thrombocytopenia as above. Platelet 64, Lovenox can only be restarted if platelet is at 75 as per hematology recommendation -Lovenox has been continuously held. Consulted hematology for further recommendations. -07/04 venous Doppler showed 1. Nonocclusive thrombus in the right common femoral vein and greater saphenous vein probably recanalized old clot for the most part. 2. Negative for thrombus in the left. -Hematology continues to recommend starting anticoagulation only if platelet is greater than 75,000. -PLT 54 Acute kidney injury with CKD 3 -avoid nephrotoxic agents -continue to monitor kidney function as indicated -Back to baseline 1.4-1.5 Intermittent hypotension -Hypotensive, improved with blood transfusion and IVF -Monitoring and keep map above 60 MDRO PSAE persistent colonization both sputum and urine PNA, MDRO PSAE, Steno malt 05/29 History of squamous cell carcinoma of the larynx now status post tracheostomy due to recurrent aspiration Spiculated right upper lobe pulmonary nodule, multiple R pulmonary nodules -Dr. Pineda has discussed risk/ benefits of biopsy with patient and her son on 05/05 and at that time they opted to defer biopsy. -Moderate pleural effusion s/p thora on 05/23, Cultures neg. -ID followed patient, Dr. Canchola, Bld Cx from 05/29 negative, Urine Cx from 05/29, negative, Sputum Cx on 05/29+ -Pseudomonas MDR, sensitive to only tobramycin. 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 Repeat urine culture pending, patient has elevated WBC as above Right hip and right knee pain-patient complaining of right hip pain and knee pain No history of trauma to knee, xray unremarkable. -Possibly due to clot burden??. Patient off Lovenox since 05/30. -Continue pain control with [place] and Tylenol. Trial of Lidoderm patch and K thermia. -Lyrica BID. Depression/anxiety -Continue Lexapro and Wellbutrin, Continue Klonopin through the G-tube every 8 hours, Temazepam as needed for insomnia Gastroesophageal reflux disease -Continue PPI and lactobacillus through the G-tube to gravity, discussed with nurse, gauze underneath to prevent skin maceration. Diarrhea -Likely secondary to antibiotics, improved. C. difficile studies were negative on 05/25, Continue Lomotil. R 1st digit of foot with increased erythema s/p trimming of ingrow toenail -Podiatry recs from 06/01: Recommend triple antibiotic with Band-Aid to right hallux medial border. DVT PPX, SCD Left, Lovenox held Code Status DNR Discussed Condition With Patient, nursing staff, Dr. Beyer Discharge Planning: DC when clinically improved. Placement to be addressed by CM. Will need SNF placement.
[2018-07-06 09:48] LABS: Blast Cells 4 % (0-0); Eosinophils 2 % (0-4); Lymphocytes 27 % (9-44); Metamyelocytes 1 % (0-1); Monocytes 10 % (0-8); Myelocytes 20 % (0-0)
[2018-07-06 09:49] LABS: Dimorphic RBC Present; Ovalocytes 1+; Toxic Vacuolation Present
--- NOTE | 2018-07-06 11:47 | P.DIET ---
Nutritional Evaluation Type of nutrition evaluation: follow-up Nutrition consult regarding: Tube Feeding Subjective Barriers to Nutrition: Swallowing problem Subjective Comments: Transferred from [place] with hypoxemic respiratory failure. Has trach/PEG. Objective - Diagnosis Respiratory Failure - Objective % IBW: 99 (IBW = 120#) Body Weight Used for Calculations: Actual (54.1 kg) Energy Needs - Lower Range (kCal/kg): 28 Energy Needs - Upper Range (kCal/kg): 32 Lower Limit kCal/kg (kCals): 1,515 Upper Limit kCal/kg (kCals): 1,731 Lower Limit Protein Factor (Grams per Kg): 1.2 Upper Limit Protein Factor (Grams per Kg): 1.5 Lower Protein Needs (Protein): 65 Upper Protein Needs (Protein): 81 Dietitian Reviewed in Medical Record: Curent medications, Intake & Output, Labs , Medical history, Tube feeding Diet Order: TF'ing ONLY Objective Comments: Meds include: Vit C, levsin, lactinex, synthroid, reglan, wellbutrin, lexapro Feeding - Current Tube Feeding Tube Feeding Product: Vital 1.5 Tube Feeding Rate: 50 Current kCals Provided by Tube Feedin,650 Current Protein Provided by Tube Feeding (gPRO): 74 Medications That Affect Tube Feeding Run Time: Synthroid (TF'ing held 1-hour before and 1-hour after administering Synthroid) Total Time Off: 2 hours Current Free H2O Provided (m/l): 840 Assessment Assessment: Wt. slighly decreased, monitor. Pt. with +I+Os and +BMs. Pt tolerating TF'ing w/ Vital 1.5 @ goal rate 55 ml/hr x 22 hours, providing for pt's assessed needs. Free water flushes per MD. CBW = 50.7 kg. Labs reviewed-monitor renal labs closely. Recommendations: 1. TF'ing w/Vital 1.5 @ goal rate 55 ml/hr x 22 hours, provides for pt's assessed needs 2. Free water flushes per MD Dietitian to Monitor: Lab values, Renal labs, Intake & Output, Tube feeding tolerance, Weight change, Medical course
[2018-07-06] MEDS: Morphine Sulfate Oral Liq 10 MG/0.5 ML Syringe SL PRN (23:46)
[2018-07-07] MEDS: Hyoscyamine Liq Drops 0.125 MG/ML 15 ML Bottle SL SCH ×4 (04:56→21:04)
[2018-07-07] MEDS: Levothyroxine 150 MCG Tablet J-TUBE SCH (06:27)
[2018-07-07] MEDS: Ascorbic Acid 500 MG Tablet J-TUBE SCH ×2 (08:27→20:37)
[2018-07-07] MEDS: buPROPion 75 MG Tablet J-TUBE SCH ×2 (08:28→20:38)
[2018-07-07] MEDS: Loperamide Liq 2 MG/10 ML UDC J-TUBE SCH ×4 (08:28→20:41)
[2018-07-07] MEDS: Morphine Sulfate Oral Liq 10 MG/0.5 ML Syringe SL PRN (08:31)
[2018-07-07] MEDS: Lidocaine 5% Patch T-DERMAL SCH (08:32)
[2018-07-07] MEDS: Heparin Central Flush 100 UNIT/ML 5 ML Vial IV.FLUSH SCH (08:32)
[2018-07-07] MEDS: Lactobacillus Acidophilus/L. Spores Tablet J-TUBE SCH ×3 (08:32→17:12)
--- NOTE | 2018-07-07 08:47 | P.PNIM ---
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 Patient seen and examined today. Reports Right leg pain , thigh area, ankle area. Pt able to cough, denies increase SOB. Denies chest pain, headaches. Denies nausea, vomiting. Physical Exam Vital signs: Vital Signs 07/06/18 08:48 07/06/18 20:00 07/06/18 21:45 Temperature 97.5 F L Pulse Rate 56 L Respiratory Rate 18 Blood Pressure 103/49 L Pulse Oximetry 98 95 07/06/18 22:47 07/07/18 08:00 Temperature Pulse Rate Respiratory Rate 14 Blood Pressure Pulse Oximetry 97 Intake & Output 07/06/18 07/07/18 07/07/18 18:59 06:59 18:59 Intake Total 650 / 650 640 / 640 Output Total 350 / 350 0 / 2050 Balance 300 / 300 -1410 / -1410 Weight 50.7 kg Intake: Tube Feeding 450 / 450 440 / 440 Tube Irrigant 100 / 100 Water Bolus Amount 100 / 100 200 / 200 Output: Urine Amount (Catheter) 350 / 350 450 / 450 Indwelling Urethral Catheter 350 / 350 450 / 450 Gastric Drainage 1600 / 1600 Gastrojejunostomy Tube 1600 / 1600 Other: Date of Last Bowel Movement 07/06/18 # Incontinent Bowel Movements 1 Narrative: GENERAL: This is a thin appearing elderly patient, in no apparent distress. SKIN: Warm and dry. Pale. Both heels boggy. HEENT: Normocephalic. Pupils equal round and reactive. Nose without bleeding. Airway patent. NECK: Trachea midline. Tracheostomy in place. CARDIOVASCULAR: Regular rate and rhythm without murmurs, gallops, or rubs. RESPIRATORY: Coarse breath sounds with mild expiratory wheeze. Secretions suctioned minimal GASTROINTESTINAL: Abdomen soft, non-tender, nondistended. Bowel Sounds normoactive x4. GJ Tube in place, G to suction, J to TF. GTube bilious drain. No leak noted surrounding site. MUSCULOSKELETAL: Extremities without clubbing, cyanosis, or edema. NEUROLOGICAL: Awake and alert. Moves all extremities. Responds to questions and commands. - Urinary Catheter Management Indwelling Urethral Catheter Cath placed during this visit: yes, but has since been removed by the nurse Reason for continuing: Acute urinary retention Insertion date: 06/26/18 Insertion time: 00:30 Removal date: 06/26/18 Removal time: 00:00 Results - Labs CBC & Chem 7: 07/06/18 05:50 07/06/18 05:50 Laboratory Results - last 24 hr 07/04/18 07/06/18 16:15 05:50 WBC Differential Manual diff final Seg Neuts % (Manual) 32 Band Neuts % (Manual) 4 Lymphocytes % (Manual) 27 Monocytes % (Manual) 10 H Eosinophils % (Manual) 2 Metamyelocytes % (Man) 1 Myelocytes % (Man) 20 H Blast Cells % (Manual) 4 H Abs Neuts (Manual) 7.7 Toxic Vacuolation Present H Platelet Estimate Low L Platelet Morphology Enlarged H Dimorphic RBCs Present H Ovalocytes 1+ H Urine Color Yellow Urine Clarity Hazy H Urine pH 5.0 Ur Specific [place] 1.005 Urine Protein Negative Urine Glucose (UA) Negative Urine Ketones Negative Urine Occult Blood Negative Urine Nitrate Negative Urine Bilirubin Negative Urine Urobilinogen Less than 2 Ur Leukocyte Esterase Moderate H Urine WBC 6 H Urine Bacteria Moderate H Urine Yeast Few H Micro UA Comment Cath-culture ind Urine Culture Comments Cath-cult indicated Microbiology 07/04/18 16:15 Clean Catch Urine Urine Culture - Preliminary Caitlyn tropicalis Group D Enterococcus Assessment and Plan - Assessment (1) Respiratory failure Code(s): J96.90 - Respiratory failure, unspecified, unspecified whether with hypoxia or hypercapnia Status: Acute (2) Pneumonia Code(s): J18.9 - Pneumonia, unspecified organism Status: Acute (3) Status post trachelectomy Code(s): Z90.710 - Acquired absence of both cervix and uterus Status: Acute (4) Carcinoma of supraglottis Code(s): C32.1 - Malignant neoplasm of supraglottis Status: Acute (5) COPD (chronic obstructive pulmonary disease) Code(s): J44.9 - Chronic obstructive pulmonary disease, unspecified Status: Acute (6) Dysphagia Code(s): R13.10 - Dysphagia, unspecified Status: Chronic (7) Lung nodule, solitary Code(s): R91.1 - Solitary pulmonary nodule Status: Acute (8) Lung nodules Code(s): R91.8 - Other nonspecific abnormal finding of lung field Status: Acute - Plan 73-year-old female with 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 The rapid response was called and the patient was transferred to ICU where she was placed on 60% oxygenation via trach collar. CCM reconsulted 05/23 due to hypotension. Currently managed for recurrent respiratory infections with MDRO managed by ID. CT chest does demonstrate a moderate left pleural effusion with left lower lobe atelectasis s/p thoracocentesis. Patient was again sent over to the ICU on 05/29 for acute pulmonary edema with further fever spikes. Patient underwent diuresis and was made a no code, was eventually stabilized and transition back to hospitalist care. S/P Fall -Fell last night 07/04/18 as per nursing -CT with 6 mm lesion recommended MRI. MRI ordered. -No neurological changes noted -Thoracic spine x-ray degenerative findings no fracture -Lumbar spine x-ray degenerative findings no evidence of fracture -Cervical spine x-ray degenerative findings no fracture. C6 and C7 not well visualized on lateral view -Neuro checks. Fall precaution -MRI pending -Son spoke with nurse does not want MRI if Benzo or other sedatives will be given to patient. Fluid overload, patient on IVF for low BP and received transfusion 2u PRBCs previously -CXR shows coarse interstitial changes throughout both lung, moderate edema that has progressed. 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 Will refer to infectious disease for antibiotic coverage, if needed -Previous UTI, MDRO Pseudomonas, tx with Avycaz by ID -Monitor, pt has low grade temp. -Fluconazole given, will ask ID for further evaluation GJ tube with leakage Soft tissue mass thru PEG site -s/p cauterization by Dr. Bautista. GJ tube not in proper position. He was able to deflate the balloon and place in proper position. 1800cc of yellow bilious drainage from GJ tube. -s/p IR GJ tube placement 06/30. Leakage around PEG site improved with escalation of PPI. -Tolerating tube feeds at 40cc/hr, titrate up slowly and monitor for recurrence of leakage. Goal 55ml as per transfill technician -monitor skin around PEG site,slight erythema noted, continue with present tx. -No leakage noted 07/07 Pancytopenia d/t myelodysplastic syndrome Per Heme/Onc: pancytopenia is due to MDS. She is not a candidate for chemo. Recommendation for pancytopenia is transfusion of PRBC (if Hg <7) and plat(if plat <15) support. -Lovenox held due to thrombocytopenia. Repeat Doppler 05/30 shows recannulization. Anticoagulation recommended with platelet count consistently greater than 75,000; otherwise hold. -07/02 patients Hgb dropped to 6.4. Transfused 2u PRBCS. Repeat hgb following transfusion 9.3. -Monitor H&H History of DVT, Right lower extremity -Has complained of pain but now more of ankle pain -Previously was on Lovenox but held due to thrombocytopenia as above. Platelet 64, Lovenox can only be restarted if platelet is at 75 as per hematology recommendation -Lovenox has been continuously held. Consulted hematology for further recommendations. -07/04 venous Doppler showed 1. Nonocclusive thrombus in the right common femoral vein and greater saphenous vein probably recanalized old clot for the most part. 2. Negative for thrombus in the left. -Hematology continues to recommend starting anticoagulation only if platelet is greater than 75,000. -PLT 54. Monitor Acute kidney injury with CKD 3 -avoid nephrotoxic agents -continue to monitor kidney function as indicated -Back to baseline 1.4-1.5 Intermittent hypotension -Hypotensive, improved with blood transfusion and IVF -Monitoring and keep map above 60 MDRO PSAE persistent colonization both sputum and urine PNA, MDRO PSAE, Steno malt 05/29 History of squamous cell carcinoma of the larynx now status post tracheostomy due to recurrent aspiration Spiculated right upper lobe pulmonary nodule, multiple R pulmonary nodules -Dr. Pineda has discussed risk/ benefits of biopsy with patient and her son on 05/05 and at that time they opted to defer biopsy. -Moderate pleural effusion s/p thora on 05/23, Cultures neg. -ID followed patient, Dr. Canchola, Bld Cx from 05/29 negative, Urine Cx from 05/29, negative, Sputum Cx on 05/29+ -Pseudomonas MDR, sensitive to only tobramycin. 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 Repeat urine culture pending, patient has elevated WBC as above Right hip and right knee pain-patient complaining of right hip pain and knee pain No history of trauma to knee, xray unremarkable. -Possibly due to clot burden??. Patient off Lovenox since 05/30. -Continue pain control with [place] and Tylenol. Trial of Lidoderm patch and K thermia. -Lyrica BID. Depression/anxiety -Continue Lexapro and Wellbutrin, Continue Klonopin through the G-tube every 8 hours, Temazepam as needed for insomnia Gastroesophageal reflux disease -Continue PPI and lactobacillus through the G-tube to gravity, discussed with nurse, gauze underneath to prevent skin maceration. Diarrhea -Likely secondary to antibiotics, improved. C. difficile studies were negative on 05/25, Continue Lomotil. R 1st digit of foot with increased erythema s/p trimming of ingrow toenail -Podiatry recs from 06/01: Recommend triple antibiotic with Band-Aid to right hallux medial border. DVT PPX, SCD Left, Lovenox held Code Status DNR Discussed Condition With Patient, nursing staff, Dr. Beyer Discharge Planning: DC when clinically improved. Placement to be addressed by CM. Will need SNF placement.
--- NOTE | 2018-07-07 17:42 | P.PN ---
Subjective Interval history: She is alert and doing better. Has no fever. Tolerates feeds. Physical Exam Vital signs: Vital Signs 07/06/18 20:00 07/06/18 21:45 07/06/18 22:47 Temperature 97.5 F L Pulse Rate 56 L Respiratory Rate 18 18 Blood Pressure 103/49 L Pulse Oximetry 95 97 07/07/18 08:00 07/07/18 10:07 07/07/18 17:27 Temperature 98.4 F Pulse Rate 70 Respiratory Rate 12 14 Blood Pressure 108/78 Pulse Oximetry 98 98 Intake & Output 07/06/18 07/07/18 07/07/18 18:59 06:59 18:59 Intake Total 650 / 650 640 / 640 650 / 650 Output Total 350 / 350 2050 / 2050 550 / 550 Balance 300 / 300 -1410 / -1410 100 / 100 Weight 50.7 kg Intake: Tube Feeding 450 / 450 440 / 440 450 / 450 Tube Irrigant 100 / 100 Water Bolus Amount 100 / 100 200 / 200 200 / 200 Output: Urine Amount (Catheter) 350 / 350 450 / 450 550 / 550 Indwelling Urethral Catheter 350 / 350 450 / 450 550 / 550 Gastric Drainage 1600 / 1600 Gastrojejunostomy Tube 1600 / 1600 Other: Date of Last Bowel Movement 07/06/18 # Incontinent Bowel Movements 1 Narrative: GENERAL: This is a thin appearing elderly patient, in no apparent distress. SKIN: Warm and dry. Pale. Both heels boggy. HEENT: Normocephalic. Pupils equal round and reactive. Nose without bleeding. Airway patent. NECK: Trachea midline. Tracheostomy in place. CARDIOVASCULAR: Regular rate and rhythm without murmurs, gallops, or rubs. RESPIRATORY: Coarse breath sounds with mild expiratory wheeze. Secretions are clear. GASTROINTESTINAL: Abdomen soft, non-tender, nondistended. Bowel Sounds normoactive x4. GJ Tube in place, G to suction, J to TF. No leak noted surrounding site. MUSCULOSKELETAL: Extremities without clubbing, cyanosis, or edema. NEUROLOGICAL: Awake and alert. Moves all extremities. Responds to questions and commands. - Urinary Catheter Management Indwelling Urethral Catheter Cath placed during this visit: yes, but has since been removed by the nurse Reason for continuing: Acute urinary retention Insertion date: 06/26/18 Insertion time: 00:30 Removal date: 06/26/18 Removal time: 00:00 Results - Labs CBC & Chem 7: 07/06/18 05:50 07/06/18 05:50 Microbiology 07/04/18 16:15 Clean Catch Urine Urine Culture - Preliminary Caitlyn tropicalis Enterococcus faecium VRE Assessment and Plan - Assessment (1) Respiratory failure Code(s): J96.90 - Respiratory failure, unspecified, unspecified whether with hypoxia or hypercapnia Status: Acute (2) Pneumonia Code(s): J18.9 - Pneumonia, unspecified organism Status: Acute (3) Status post trachelectomy Code(s): Z90.710 - Acquired absence of both cervix and uterus Status: Acute (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 T collar at 28 % FIO2 . 2. Cont nebs with albuterol qid. PRN 3. labs in am. 4. Cont Levsin .125 mg qid prn. 5. J tube feeds at 40 CC 6. Levsin .125 mg TID Prn for secretions 7. PT evaluation.
[2018-07-08] MEDS: Hyoscyamine Liq Drops 0.125 MG/ML 15 ML Bottle SL SCH ×4 (06:41→21:31)
[2018-07-08] MEDS: Levothyroxine 150 MCG Tablet J-TUBE SCH (06:41)
[2018-07-08 07:12] LABS: Hematocrit 34.4 % (35.0-46.0); Hemoglobin 11.7 gm/dL (11.6-15.3); Mean Corpuscular HGB Conc 33.9 % (32.0-36.0); Mean Corpuscular Hemoglobin 29.5 pg (27.0-34.0); Mean Corpuscular Volume 86.9 fL (80.0-100.0); Mean Platelet Volume 11.7 fL (7.0-11.0); Platelet Count 54 th/mm3 (150-450); Red Blood Count 3.96 mil/mm3 (4.00-5.30); Red Cell Distribution Width 14.9 % (11.6-17.2)
[2018-07-08 08:00] LABS: Calcium 8.7 mg/dL (8.5-10.1); Carbon Dioxide 25.3 meq/L (21.0-32.0); Potassium 4.4 meq/L (3.5-5.1)
[2018-07-08 08:34] LABS: Blast Cells 7 % (0-0); Eosinophils 4 % (0-4); Lymphocytes 19 % (9-44); Metamyelocytes 11 % (0-1); Monocytes 16 % (0-8); Myelocytes 5 % (0-0); Ovalocytes 1+; Toxic Vacuolation Present
--- NOTE | 2018-07-08 08:36 | P.PNIM ---
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 Patient seen and examined today. Reports Right leg and knee pain, thigh area, ankle area. Pt able to cough, denies increase SOB. Denies chest pain, headaches. Denies nausea, vomiting. Physical Exam Vital signs: Vital Signs 07/07/18 10:07 07/07/18 17:27 07/07/18 19:50 Temperature 97.8 F Pulse Rate 68 Respiratory Rate 14 16 Blood Pressure 89/46 L Pulse Oximetry 98 95 07/07/18 20:30 07/07/18 21:10 07/08/18 04:34 Temperature Pulse Rate 69 Respiratory Rate 16 Blood Pressure 106/53 L Pulse Oximetry 99 Intake & Output 07/07/18 07/08/18 07/08/18 18:59 06:59 18:59 Intake Total 650 / 650 600 / 600 Output Total 550 / 550 900 / 900 Balance 100 / 100 -300 / -300 Weight 47.3 kg Intake: Tube Feeding 450 / 450 480 / 480 Tube Irrigant 120 / 120 Water Bolus Amount 200 / 200 Output: Urine Amount (Catheter) 550 / 550 150 / 150 Indwelling Urethral Catheter 550 / 550 150 / 150 Gastric Drainage 750 / 750 Gastrojejunostomy Tube 750 / 750 Narrative: GENERAL: This is a thin appearing elderly patient, in no apparent distress. SKIN: Warm and dry. Pale. Both heels boggy. HEENT: Normocephalic. Pupils equal round and reactive. Nose without bleeding. Airway patent. NECK: Trachea midline. Tracheostomy in place. CARDIOVASCULAR: Regular rate and rhythm without murmurs, gallops, or rubs. RESPIRATORY: Coarse breath sounds with mild expiratory wheeze. Secretions are clear. GASTROINTESTINAL: Abdomen soft, non-tender, nondistended. Bowel Sounds normoactive x4. GJ Tube in place, G to suction, J to TF. No leak noted surrounding site. MUSCULOSKELETAL: Extremities without clubbing, cyanosis, or edema. NEUROLOGICAL: Awake and alert. Moves all extremities. Responds to questions and commands. - Urinary Catheter Management Indwelling Urethral Catheter Cath placed during this visit: yes, but has since been removed by the nurse Reason for continuing: Acute urinary retention Insertion date: 06/26/18 Insertion time: 00:30 Removal date: 06/26/18 Removal time: 00:00 Results - Labs CBC & Chem 7: 07/08/18 06:38 07/08/18 06:38 Laboratory Results - last 24 hr 07/08/18 07/08/18 06:38 06:38 WBC 12.0 H RBC 3.96 L Hgb 11.7 Hct 34.4 L MCV 86.9 MCH 29.5 MCHC 33.9 RDW 14.9 Plt Count 54 L MPV 11.7 H Prelim Diff (Auto) Manual diff required WBC Differential Manual diff final Seg Neuts % (Manual) 34 Band Neuts % (Manual) 4 Lymphocytes % (Manual) 19 Monocytes % (Manual) 16 H Eosinophils % (Manual) 4 Metamyelocytes % (Man) 11 H Myelocytes % (Man) 5 H Blast Cells % (Manual) 7 H Abs Neuts (Manual) 6.5 Differential Comment . Toxic Vacuolation Present H Platelet Estimate Low L Platelet Morphology Enlarged H Ovalocytes 1+ H Sodium 141 Potassium 4.4 Chloride 103 Carbon Dioxide 25.3 Anion Gap 13 BUN 72 H Creatinine 2.45 H Estimated GFR 19 L Random Glucose 113 H Calcium 8.7 Microbiology 07/04/18 16:15 Clean Catch Urine Urine Culture - Final Caitlyn tropicalis Enterococcus faecium VRE Assessment and Plan - Assessment (1) Respiratory failure Code(s): J96.90 - Respiratory failure, unspecified, unspecified whether with hypoxia or hypercapnia Status: Acute (2) Pneumonia Code(s): J18.9 - Pneumonia, unspecified organism Status: Acute (3) Status post trachelectomy Code(s): Z90.710 - Acquired absence of both cervix and uterus Status: Acute (4) Carcinoma of supraglottis Code(s): C32.1 - Malignant neoplasm of supraglottis Status: Acute (5) COPD (chronic obstructive pulmonary disease) Code(s): J44.9 - Chronic obstructive pulmonary disease, unspecified Status: Acute (6) Dysphagia Code(s): R13.10 - Dysphagia, unspecified Status: Chronic (7) Lung nodule, solitary Code(s): R91.1 - Solitary pulmonary nodule Status: Acute (8) Lung nodules Code(s): R91.8 - Other nonspecific abnormal finding of lung field Status: Acute - Plan 73-year-old female with 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 The rapid response was called and the patient was transferred to ICU where she was placed on 60% oxygenation via trach collar. [facility] reconsulted 05/23 due to hypotension. Currently managed for recurrent respiratory infections with MDRO managed by ID. CT chest does demonstrate a moderate left pleural effusion with left lower lobe atelectasis s/p thoracocentesis. Patient was again sent over to the ICU on 05/29 for acute pulmonary edema with further fever spikes. Patient underwent diuresis and was made a no code, was eventually stabilized and transition back to hospitalist care. S/P Fall -Fell last night 07/04/18 as per nursing -CT with 6 mm lesion recommended MRI. MRI ordered. -No neurological changes noted -Thoracic spine x-ray degenerative findings no fracture -Lumbar spine x-ray degenerative findings no evidence of fracture -Cervical spine x-ray degenerative findings no fracture. C6 and C7 not well visualized on lateral view -Neuro checks. Fall precaution -Son spoke with nurse does not want MRI if Benzo or other sedatives will be given to patient. -MRI pending, will do MRI without sedation Fluid overload, patient on IVF for low BP and received transfusion 2u PRBCs previously -CXR shows coarse interstitial changes throughout both lung, moderate edema that has progressed. 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 Will refer to infectious disease for antibiotic coverage, if needed -Previous UTI, MDRO Pseudomonas, tx with Avycaz by ID -Monitor, pt has low grade temp. -Repeat urine culture caitlyn tropicalis, VRE EColi MDRO <50K, ID following -Fluconazole given, will ask ID for further evaluation -Afebrile today, WBC trending down GJ tube with leakage Soft tissue mass thru PEG site -s/p cauterization by Dr. Bautista. GJ tube not in proper position. He was able to deflate the balloon and place in proper position. 1800cc of yellow bilious drainage from GJ tube. -s/p IR GJ tube placement 06/30. Leakage around PEG site improved with escalation of PPI. -Tolerating tube feeds at 40cc/hr, titrate up slowly and monitor for recurrence of leakage. Goal 55ml as per last inserter -monitor skin around PEG site,slight erythema noted, continue with present tx. -No leakage noted 07/07 Pancytopenia d/t myelodysplastic syndrome Per Heme/Onc: pancytopenia is due to MDS. She is not a candidate for chemo. Recommendation for pancytopenia is transfusion of PRBC (if Hg <7) and plat(if plat <15) support. -Lovenox held due to thrombocytopenia. Repeat Doppler 05/30 shows recannulization. Anticoagulation recommended with platelet count consistently greater than 75,000; otherwise hold. -07/02 patients Hgb dropped to 6.4. Transfused 2u PRBCS. Repeat hgb following transfusion 9.3. -Monitor H&H History of DVT, Right lower extremity -Has complained of pain but now more of ankle pain -Previously was on Lovenox but held due to thrombocytopenia as above. Platelet 64, Lovenox can only be restarted if platelet is at 75 as per hematology recommendation -Lovenox has been continuously held. Consulted hematology for further recommendations. -07/04 venous Doppler showed 1. Nonocclusive thrombus in the right common femoral vein and greater saphenous vein probably recanalized old clot for the most part. 2. Negative for thrombus in the left. -Hematology continues to recommend starting anticoagulation only if platelet is greater than 75,000. -PLT 54. Monitor Acute kidney injury with CKD 3 -avoid nephrotoxic agents -continue to monitor kidney function as indicated -Back to baseline 1.4-1.5 Intermittent hypotension -Hypotensive, improved with blood transfusion and IVF -Monitoring and keep map above 60 MDRO PSAE persistent colonization both sputum and urine PNA, MDRO PSAE, Steno malt 05/29 History of squamous cell carcinoma of the larynx now status post tracheostomy due to recurrent aspiration Spiculated right upper lobe pulmonary nodule, multiple R pulmonary nodules -Dr. Pineda has discussed risk/ benefits of biopsy with patient and her son on 05/05 and at that time they opted to defer biopsy. -Moderate pleural effusion s/p thora on 05/23, Cultures neg. -ID followed patient, Dr. Canchola, Bld Cx from 05/29 negative, Urine Cx from 05/29, negative, Sputum Cx on 05/29+ -Pseudomonas MDR, sensitive to only tobramycin. 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 -Repeat urine culture caitlyn tropicalis, VRE EColi MDRO <50K, ID following -Afebrile today Right hip and right knee pain-patient complaining of right hip pain and knee pain No history of trauma to knee, xray unremarkable. -Possibly due to clot burden??. Patient off Lovenox since 05/30. -Continue pain control with [place] and Tylenol. Trial of Lidoderm patch and K thermia. -Lyrica BID. Depression/anxiety -Continue Lexapro and Wellbutrin, Continue Klonopin through the G-tube every 8 hours, Temazepam as needed for insomnia Gastroesophageal reflux disease -Continue PPI and lactobacillus through the G-tube to gravity, discussed with nurse, gauze underneath to prevent skin maceration. Diarrhea -Likely secondary to antibiotics, improved. C. difficile studies were negative on 05/25, Continue Lomotil. R 1st digit of foot with increased erythema s/p trimming of ingrow toenail -Podiatry recs from 06/01: Recommend triple antibiotic with Band-Aid to right hallux medial border. DVT PPX, SCD Left, Lovenox held Code Status DNR Discussed Condition With Patient, nursing staff, Dr. Beyer Discharge Planning: DC when clinically improved. Placement to be addressed by CM. Will need SNF placement.
[2018-07-08] MEDS: Lidocaine 5% Patch T-DERMAL SCH (08:40)
[2018-07-08] MEDS: Loperamide Liq 2 MG/10 ML UDC J-TUBE SCH ×4 (08:40→21:22)
[2018-07-08] MEDS: Heparin Central Flush 100 UNIT/ML 5 ML Vial IV.FLUSH SCH (08:40)
[2018-07-08] MEDS: Ascorbic Acid 500 MG Tablet J-TUBE SCH ×2 (08:41→21:23)
[2018-07-08] MEDS: Lactobacillus Acidophilus/L. Spores Tablet J-TUBE SCH ×3 (08:42→17:59)
[2018-07-08] MEDS: buPROPion 75 MG Tablet J-TUBE SCH ×2 (08:43→21:22)
--- NOTE | 2018-07-08 11:07 | MR ---
EXAM DATE: 07/08/2018 10:56 AM EST AGE/SEX: 73 years / Female INDICATIONS: . Loss of consciousness. CLINICAL DATA: This is the patient's subsequent encounter. Patient reports that signs and symptoms h ave been present for 2 months and indicates a pain score of 0/10. MEDICAL/SURGICAL HISTORY: Hypothyroidism. laryngeal squamous cell carcinoma. Cholecystectomy. Tonsillectomy. hernia, tracheostomy COMPARISON: [facility] [place], CT HEAD W/O CONTRAST, 07/04/2018.. . TECHNIQUE: Multiplanar, multisequence examination of the brain was performed without contrast. FINDINGS: Cerebrum: Atrophy. Chronic lacunar infarction involving the right basal ganglia. This correlates to the abnormality seen on the prior CT. The ventricles are normal for age. No evidence of midline shif t, mass lesion, hemorrhage or acute infarction. No extraaxial fluid collections are seen. The pitui tary gland and suprasellar cistern are normal in configuration. White Matter: Scattered foci of high FLAIR signal abnormality involving the periventricular white ma tter both cerebral hemispheres.. Posterior Fossa: The cerebellum and brainstem are intact. The 4th ventricle is midline. The cerebel lopontine angle is unremarkable. The cerebellar tonsils are normal in position. Diffusion Imaging: No focal areas of restricted diffusion are seen. No evidence of acute infarction . Extracranial: The visualized portions of the orbits and paranasal sinuses are unremarkable. CONCLUSION: 1. No acute intracranial abnormality. 2. Atrophy and chronic small vessel ischemic change. 3. Chronic lacunar infarction involving the right basal ganglia. Electronically signed by: Gab Caro MD 07/08/2018 11:05 AM EST
--- NOTE | 2018-07-08 19:05 | P.PN ---
Subjective Interval history: Alert and seems comfortable. On a T Collar at 28 % FIo2. No fever. Hgb is >9.0 Physical Exam Vital signs: Vital Signs 07/07/18 19:50 07/07/18 20:30 07/07/18 21:10 Temperature 97.8 F Pulse Rate 68 69 Respiratory Rate 16 16 Blood Pressure 89/46 L 106/53 L Pulse Oximetry 95 07/08/18 04:34 07/08/18 08:00 07/08/18 18:20 Temperature 98.7 F Pulse Rate 72 Respiratory Rate 18 Blood Pressure 114/72 Pulse Oximetry 99 98 99 Intake & Output 07/08/18 07/08/18 07/09/18 06:59 18:59 06:59 Intake Total 600 / 600 1020 / 1020 Output Total 900 / 900 900 / 900 Balance -300 / -300 120 / 120 Weight 47.3 kg Intake: Oral 0 / 0 Tube Feeding 480 / 480 420 / 420 Tube Irrigant 120 / 120 0 / 0 Water Bolus Amount 200 / 200 Other 0 / 0 Mass Transfusion Protocol 400 / 400 Output: Urine 0 / 0 Stool 0 / 0 Urine/Stool Mix 0 / 0 Emesis 0 / 0 Urine Amount (Catheter) 150 / 150 150 / 150 Indwelling Urethral Catheter 150 / 150 150 / 150 Gastric Drainage 750 / 750 750 / 750 Gastrojejunostomy Tube 750 / 750 750 / 750 Jejunostomy Tube 0 / 0 Other: Other Intake Source Saline Solution # Voids 0 # Incontinent Voids 0 # Urine Diapers 0 Date of Last Bowel Movement 07/06/18 # Bowel Movements 2 # Incontinent Bowel Movements 1 # Emeses 0 Narrative: GENERAL: This is a thin appearing elderly patient, in no apparent distress. SKIN: Warm and dry. Pale. Both heels boggy. HEENT: Normocephalic. Pupils equal round and reactive. Nose without bleeding. Airway patent. NECK: Trachea midline. Tracheostomy in place.Secretions are clear. CARDIOVASCULAR: Regular rate and rhythm without murmurs, gallops, or rubs. RESPIRATORY: Coarse breath sounds with mild expiratory wheeze. GASTROINTESTINAL: Abdomen soft, non-tender, nondistended. Bowel Sounds normoactive x4. GJ Tube in place, G to suction, J to TF. No leak noted surrounding site. MUSCULOSKELETAL: Extremities without clubbing, cyanosis, or edema. NEUROLOGICAL: Awake and alert. Moves all extremities. Responds to questions and commands. - Urinary Catheter Management Indwelling Urethral Catheter Cath placed during this visit: yes, but has since been removed by the nurse Reason for continuing: Acute urinary retention Insertion date: 06/26/18 Insertion time: 00:30 Removal date: 06/26/18 Removal time: 00:00 Results - Labs CBC & Chem 7: 07/08/18 06:38 07/08/18 06:38 Laboratory Results - last 24 hr 07/08/18 07/08/18 06:38 06:38 WBC 12.0 H RBC 3.96 L Hgb 11.7 Hct 34.4 L MCV 86.9 MCH 29.5 MCHC 33.9 RDW 14.9 Plt Count 54 L MPV 11.7 H Prelim Diff (Auto) Manual diff required WBC Differential Manual diff final Seg Neuts % (Manual) 34 Band Neuts % (Manual) 4 Lymphocytes % (Manual) 19 Monocytes % (Manual) 16 H Eosinophils % (Manual) 4 Metamyelocytes % (Man) 11 H Myelocytes % (Man) 5 H Blast Cells % (Manual) 7 H Abs Neuts (Manual) 6.5 Differential Comment . Toxic Vacuolation Present H Platelet Estimate Low L Platelet Morphology Enlarged H Ovalocytes 1+ H Sodium 141 Potassium 4.4 Chloride 103 Carbon Dioxide 25.3 Anion Gap 13 BUN 72 H Creatinine 2.45 H Estimated GFR 19 L Random Glucose 113 H Calcium 8.7 Microbiology 07/04/18 16:15 Clean Catch Urine Urine Culture - Final Caitlyn tropicalis Enterococcus faecium VRE - Imaging Impressions Head MRI 07/08/18 07:01 CONCLUSION: 1. No acute intracranial abnormality. 2. Atrophy and chronic small vessel ischemic change. 3. Chronic lacunar infarction involving the right basal ganglia. 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 T collar at 28 % FIO2 . 2. Cont nebs with albuterol qid. PRN 3. Cont Lovenox 60 mg daily S/Q 4. Cont Levsin .125 mg qid prn. 5. J tube feeds at 40 CC 6. Levsin .125 mg TID Prn for secretions 7. PT evaluation.
[2018-07-09] MEDS: Hyoscyamine Liq Drops 0.125 MG/ML 15 ML Bottle SL SCH ×4 (06:14→21:09)
[2018-07-09] MEDS: Levothyroxine 150 MCG Tablet J-TUBE SCH (06:14)
[2018-07-09] MEDS ORDERED: Sodium Chloride 0.45 % Inj 1,000 ML IV.CONT SCH (08:30)
--- NOTE | 2018-07-09 08:49 | P.PNIM ---
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 Patient seen and examined today. States she is okay. Reports Right leg and knee pain, thigh area, ankle area. Pt able to cough , denies increase SOB. Denies chest pain, headaches. Denies nausea, vomiting. Physical Exam Vital signs: Vital Signs 07/08/18 18:20 07/08/18 20:00 07/09/18 00:16 Temperature 98.0 F Pulse Rate 77 Respiratory Rate 16 Blood Pressure 116/56 L Pulse Oximetry 99 93 L 98 07/09/18 07:31 Temperature Pulse Rate Respiratory Rate 14 Blood Pressure Pulse Oximetry Intake & Output 07/08/18 07/09/18 07/09/18 18:59 06:59 18:59 Intake Total 1020 / 1020 660 / 660 Output Total 900 / 900 875 / 875 Balance 120 / 120 -215 / -215 Weight 45.2 kg Intake: Oral 0 / 0 Tube Feeding 420 / 420 540 / 540 Tube Irrigant 0 / 0 120 / 120 Water Bolus Amount 200 / 200 Other 0 / 0 Mass Transfusion Protocol 400 / 400 Output: Urine 0 / 0 Stool 0 / 0 Urine/Stool Mix 0 / 0 Emesis 0 / 0 Urine Amount (Catheter) 150 / 150 175 / 175 Indwelling Urethral Catheter 150 / 150 175 / 175 Gastric Drainage 750 / 750 700 / 700 Gastrojejunostomy Tube 750 / 750 700 / 700 Jejunostomy Tube 0 / 0 Other: Other Intake Source Saline Solution # Voids 0 # Incontinent Voids 0 # Urine Diapers 0 Date of Last Bowel Movement 07/06/18 07/06/18 # Bowel Movements 2 0 # Incontinent Bowel Movements 1 # Emeses 0 Narrative: GENERAL: This is a thin appearing elderly patient, in no apparent distress. SKIN: Warm and dry. Pale. Both heels boggy. HEENT: Normocephalic. Pupils equal round and reactive. Nose without bleeding. Airway patent. NECK: Trachea midline. Tracheostomy in place. Secretions are moderate yellow, moderately thick CARDIOVASCULAR: Regular rate and rhythm without murmurs, gallops, or rubs. RESPIRATORY: Coarse breath sounds with mild expiratory wheeze. GASTROINTESTINAL: Abdomen soft, non-tender, nondistended. Bowel Sounds normoactive x4. GJ Tube in place, G to suction, J to TF. No leak noted surrounding site. MUSCULOSKELETAL: Extremities without clubbing, cyanosis, or edema. NEUROLOGICAL: Awake and alert. Moves all extremities. Responds to questions and commands. - Urinary Catheter Management Indwelling Urethral Catheter Cath placed during this visit: yes, but has since been removed by the nurse Reason for continuing: Acute urinary retention Insertion date: 06/26/18 Insertion time: 00:30 Removal date: 06/26/18 Removal time: 00:00 Results - Labs CBC & Chem 7: 07/08/18 06:38 07/08/18 06:38 Microbiology 07/04/18 16:15 Clean Catch Urine Urine Culture - Final Caitlyn tropicalis Enterococcus faecium VRE - Imaging Impressions Head MRI 07/08/18 07:01 CONCLUSION: 1. No acute intracranial abnormality. 2. Atrophy and chronic small vessel ischemic change. 3. Chronic lacunar infarction involving the right basal ganglia. Assessment and Plan - Assessment (1) Respiratory failure Code(s): J96.90 - Respiratory failure, unspecified, unspecified whether with hypoxia or hypercapnia Status: Acute (2) Pneumonia Code(s): J18.9 - Pneumonia, unspecified organism Status: Acute (3) Status post trachelectomy Code(s): Z90.710 - Acquired absence of both cervix and uterus Status: Acute (4) Carcinoma of supraglottis Code(s): C32.1 - Malignant neoplasm of supraglottis Status: Acute (5) COPD (chronic obstructive pulmonary disease) Code(s): J44.9 - Chronic obstructive pulmonary disease, unspecified Status: Acute (6) Dysphagia Code(s): R13.10 - Dysphagia, unspecified Status: Chronic (7) Lung nodule, solitary Code(s): R91.1 - Solitary pulmonary nodule Status: Acute (8) Lung nodules Code(s): R91.8 - Other nonspecific abnormal finding of lung field Status: Acute - Plan 73-year-old female with 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 The rapid response was called and the patient was transferred to ICU where she was placed on 60% oxygenation via trach collar. [facility] reconsulted 05/23 due to hypotension. Currently managed for recurrent respiratory infections with MDRO managed by ID. CT chest does demonstrate a moderate left pleural effusion with left lower lobe atelectasis s/p thoracocentesis. Patient was again sent over to the ICU on 05/29 for acute pulmonary edema with further fever spikes. Patient underwent diuresis and was made a no code, was eventually stabilized and transition back to hospitalist care. Acute kidney injury with CKD 3-4 -avoid nephrotoxic agents -Increase GRAIN I [employer], restart 1/2 NS low dose 40ml, fluid flushes 250 q6hrs -Monitor Renal indices S/P Fall -Fell last night 07/04/18 as per nursing -CT with 6 mm lesion recommended MRI. MRI ordered. -No neurological changes noted -Thoracic spine x-ray degenerative findings no fracture -Lumbar spine x-ray degenerative findings no evidence of fracture -Cervical spine x-ray degenerative findings no fracture. C6 and C7 not well visualized on lateral view -Neuro checks. Fall precaution -Son spoke with nurse does not want MRI if Benzo or other sedatives will be given to patient. -MRI negative Fluid overload, patient on IVF for low BP and received transfusion 2u PRBCs previously -CXR shows coarse interstitial changes throughout both lung, moderate edema that has progressed. -IV Lasix given previous days -monitor respiratory status -Restarted IVF low rate, monitor for fluid overload Leukocytosis UTI -11.3 -->14 -->15.3 --> 13.5 -CXR shows fluid overload as above -Previously with multidrug-resistant Pseudomonas. Will refer to infectious disease for antibiotic coverage, if needed -Previous UTI, MDRO Pseudomonas, tx with Avycaz by ID -Monitor, pt has low grade temp. -Repeat urine culture caitlyn tropicalis, VRE EColi MDRO <50K, ID following -Fluconazole given, will ask ID for further evaluation -Afebrile today, WBC trending down GJ tube with leakage Soft tissue mass thru PEG site -s/p cauterization by Dr. Bautista. GJ tube not in proper position. He was able to deflate the balloon and place in proper position. 1800cc of yellow bilious drainage from GJ tube. -s/p IR GJ tube placement 06/30. Leakage around PEG site improved with escalation of PPI. -Tolerating tube feeds at 40cc/hr, titrate up slowly and monitor for recurrence of leakage. 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 -No leakage noted 07/07 Pancytopenia d/t myelodysplastic syndrome Per Heme/Onc: pancytopenia is due to MDS. She is not a candidate for chemo. Recommendation for pancytopenia is transfusion of PRBC (if Hg <7) and plat(if plat <15) support. -Lovenox held due to thrombocytopenia. Repeat Doppler 05/30 shows recannulization. Anticoagulation recommended with platelet count consistently greater than 75,000; otherwise hold. -07/02 patients Hgb dropped to 6.4. Transfused 2u PRBCS. Repeat hgb following transfusion 9.3. -Monitor H&H History of DVT, Right lower extremity -Has complained of pain but now more of ankle pain -Previously was on Lovenox but held due to thrombocytopenia as above. Platelet 64, Lovenox can only be restarted if platelet is at 75 as per hematology recommendation -Lovenox has been continuously held. Consulted hematology for further recommendations. -07/04 venous Doppler showed 1. Nonocclusive thrombus in the right common femoral vein and greater saphenous vein probably recanalized old clot for the most part. 2. Negative for thrombus in the left. -Hematology continues to recommend starting anticoagulation only if platelet is greater than 75,000. -PLT 54. Monitor Intermittent hypotension -Hypotensive, improved with blood transfusion and IVF -Monitoring and keep map above 60 MDRO PSAE persistent colonization both sputum and urine PNA, MDRO PSAE, Steno malt 05/29 History of squamous cell carcinoma of the larynx now status post tracheostomy due to recurrent aspiration Spiculated right upper lobe pulmonary nodule, multiple R pulmonary nodules -Dr. Pineda has discussed risk/ benefits of biopsy with patient and her son on 05/05 and at that time they opted to defer biopsy. -Moderate pleural effusion s/p thora on 05/23, Cultures neg. -ID followed patient, Dr. Canchola, Bld Cx from 05/29 negative, Urine Cx from 05/29, negative, Sputum Cx on 05/29+ -Pseudomonas MDR, sensitive to only tobramycin. 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 -Repeat urine culture caitlyn tropicalis, VRE EColi MDRO <50K, ID following -Afebrile Right hip and right knee pain-patient complaining of right hip pain and knee pain No history of trauma to knee, xray unremarkable. -Possibly due to clot burden??. Patient off Lovenox since 05/30. -Continue pain control with [place] and Tylenol. Trial of Lidoderm patch and K thermia. -Lyrica BID. Depression/anxiety -Continue Lexapro and Wellbutrin, Continue Klonopin through the G-tube every 8 hours, Temazepam as needed for insomnia Gastroesophageal reflux disease -Continue PPI and lactobacillus through the G-tube to gravity, discussed with nurse, gauze underneath to prevent skin maceration. Diarrhea -Likely secondary to antibiotics, improved. C. difficile studies were negative on 05/25, Continue Lomotil. R 1st digit of foot with increased erythema s/p trimming of ingrow toenail -Podiatry recs from 06/01: Recommend triple antibiotic with Band-Aid to right hallux medial border. DVT PPX, SCD Left, Lovenox held Code Status DNR Discussed Condition With Patient, nursing staff, Dr. Beyer Discharge Planning: DC when clinically improved. Placement to be addressed by CM. Will need SNF placement.
[2018-07-09] MEDS: Lactobacillus Acidophilus/L. Spores Tablet J-TUBE SCH ×3 (09:25→17:24)
[2018-07-09] MEDS: Lidocaine 5% Patch T-DERMAL SCH (09:25)
[2018-07-09] MEDS: Loperamide Liq 2 MG/10 ML UDC J-TUBE SCH ×4 (09:25→22:23)
[2018-07-09] MEDS: Heparin Central Flush 100 UNIT/ML 5 ML Vial IV.FLUSH SCH (09:26)
[2018-07-09] MEDS: buPROPion 75 MG Tablet J-TUBE SCH ×2 (09:26→21:06)
[2018-07-09] MEDS: Ascorbic Acid 500 MG Tablet J-TUBE SCH ×2 (09:26→21:05)
--- NOTE | 2018-07-09 17:45 | P.PNADD ---
Addendum to Inpatient Note Reason for Addendum: Additional Documentation Additional information: Called by nurse, urine output was low, GI drain >1000ML. Patient seen and examined. GJTUbe in place no leak in the incision site. Noted GI drain dark appears coffee ground colored but Gtube was bloody. TF continued in the Jtube. TF was held, for now. Protonix IV. Change IVF to NS 100ml/hr monitor for overload. Hold suction to Gtube. Will reconsult GI. Stat CBC. If acute anemia is present will transfuse. Monitor patient for now. BP Low normal. Patient denies pain, abdominal pain or cramping. States she just feel weak. Recheck labs. ID to follow. R/O sepsis. Discussed with Dr. Beyer.
[2018-07-09] MEDS: Sod Chloride 0.9% Inj 1,000 ML IV.CONT SCH (17:59)
[2018-07-09] MEDS: Pantoprazole Inj 40 MG Vial IV.PUSH SCH (17:59)
--- NOTE | 2018-07-09 18:24 | P.PN ---
Subjective Interval history: Awake and seems weak. has dark drainage from J Tube site. On IV Fluids now . Renal profile is worse. Physical Exam Vital signs: Vital Signs 07/08/18 20:00 07/09/18 00:16 07/09/18 07:31 Temperature 98.0 F Pulse Rate 77 Respiratory Rate 16 14 Blood Pressure 116/56 L Pulse Oximetry 93 L 98 07/09/18 08:00 07/09/18 10:06 07/09/18 10:15 Temperature 97.9 F Pulse Rate 56 L Respiratory Rate 12 12 Blood Pressure 110/67 Pulse Oximetry 97 97 Intake & Output 07/08/18 07/09/18 07/09/18 18:59 06:59 18:59 Intake Total 1020 / 1020 660 / 660 1520 / 1520 Output Total 900 / 900 875 / 875 1080 / 1080 Balance 120 / 120 -215 / -215 440 / 440 Weight 45.2 kg Intake: Oral 0 / 0 Tube Feeding 420 / 420 540 / 540 540 / 540 Tube Irrigant 0 / 0 120 / 120 0 / 0 Water Bolus Amount 200 / 200 500 / 500 Other 0 / 0 480 / 480 Mass Transfusion Protocol 400 / 400 Output: Urine 0 / 0 Stool 0 / 0 Urine/Stool Mix 0 / 0 Emesis 0 / 0 Urine Amount (Catheter) 150 / 150 175 / 175 80 / 80 Indwelling Urethral Catheter 150 / 150 175 / 175 80 / 80 Gastric Drainage 750 / 750 700 / 700 1000 / 1000 Gastrojejunostomy Tube 750 / 750 700 / 700 1000 / 1000 Jejunostomy Tube 0 / 0 Other: Other Intake Source Saline Solution Saline Solution # Voids 0 # Incontinent Voids 0 # Urine Diapers 0 Date of Last Bowel Movement 07/06/18 07/06/18 # Bowel Movements 2 0 # Incontinent Bowel Movements 1 # Emeses 0 Narrative: GENERAL: This is a thin appearing elderly patient, in no apparent distress. SKIN: Warm and dry. Pale. HEENT: Normocephalic. Pupils equal round and reactive. Nose without bleeding. Airway patent. NECK: Trachea midline. Tracheostomy in place. Secretions are yellow, moderately thick CARDIOVASCULAR: Regular rate and rhythm without murmurs, gallops, or rubs. RESPIRATORY: Coarse breath sounds with mild expiratory wheeze. GASTROINTESTINAL: Abdomen soft, non-tender, nondistended. Bowel Sounds normoactive x4. GJ Tube in place, G to suction, J to TF. No leak noted surrounding site. MUSCULOSKELETAL: Extremities without clubbing, cyanosis, or edema. NEUROLOGICAL: Awake and alert. Moves all extremities. Responds to questions and commands. - Urinary Catheter Management Indwelling Urethral Catheter Cath placed during this visit: yes, but has since been removed by the nurse Reason for continuing: Acute urinary retention Insertion date: 06/26/18 Insertion time: 00:30 Removal date: 06/26/18 Removal time: 00:00 Results - Labs CBC & Chem 7: 07/08/18 06:38 07/08/18 06:38 Assessment and Plan - Assessment (1) Respiratory failure Code(s): J96.90 - Respiratory failure, unspecified, unspecified whether with hypoxia or hypercapnia Status: Acute (2) Pneumonia Code(s): J18.9 - Pneumonia, unspecified organism Status: Acute (3) Status post trachelectomy Code(s): Z90.710 - Acquired absence of both cervix and uterus Status: Acute (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 Cont T collar at 28 % FIO2 . 2. Cont nebs with albuterol qid. PRN 3. Cont Lovenox 60 mg daily S/Q 4. Cont Levsin .125 mg qid prn. 5. Hold J tube feeds 6. Levsin .125 mg TID Prn for secretions 7. CBC,BMP today 8. IV Fluids NS at 100 CC
[2018-07-09 18:25] LABS: Hematocrit 35.1 % (35.0-46.0); Hemoglobin 11.6 gm/dL (11.6-15.3); Mean Corpuscular HGB Conc 33.1 % (32.0-36.0); Mean Corpuscular Hemoglobin 28.9 pg (27.0-34.0); Mean Corpuscular Volume 87.5 fL (80.0-100.0); Mean Platelet Volume 11.9 fL (7.0-11.0); Platelet Count 60 th/mm3 (150-450); Red Blood Count 4.01 mil/mm3 (4.00-5.30); White Blood Count 24.4 th/mm3 (4.0-11.0)
--- NOTE | 2018-07-09 18:44 | P.PNID ---
Subjective Remarks: urine output was low, GI drain >1000ML. pt is lethargic afebrile WBC shot up to 24 K Antibiotics: Past Medical History: lung ca Allergies/Adverse Reactions: Allergies epinephrine Allergy (Severe, Verified 02/21/18 08:40) TACHYCARDIA penicillin G Allergy (Severe, Verified 02/21/18 08:40) Hives peanut Allergy (Intermediate, Verified 02/21/18 08:40) ANAPHYLAXIS legumes Allergy (Unknown, Verified 03/06/18 21:48) Anaphylaxis UNKNOWN soy Allergy (Verified 03/06/18 21:45) Rash UNKNOWN Objective Vital Signs 07/08/18 20:00 07/09/18 00:16 07/09/18 07:31 Temperature 98.0 F Pulse Rate 77 Respiratory Rate 16 14 Blood Pressure 116/56 L Pulse Oximetry 93 L 98 07/09/18 08:00 07/09/18 10:06 07/09/18 10:15 Temperature 97.9 F Pulse Rate 56 L Respiratory Rate 12 12 Blood Pressure 110/67 Pulse Oximetry 97 97 Intake & Output 07/08/18 07/09/18 07/09/18 18:59 06:59 18:59 Intake Total 1020 / 1020 660 / 660 1520 / 1520 Output Total 900 / 900 875 / 875 1080 / 1080 Balance 120 / 120 -215 / -215 440 / 440 Weight 45.2 kg Intake: Oral 0 / 0 Tube Feeding 420 / 420 540 / 540 540 / 540 Tube Irrigant 0 / 0 120 / 120 0 / 0 Water Bolus Amount 200 / 200 500 / 500 Other 0 / 0 480 / 480 Mass Transfusion Protocol 400 / 400 Output: Urine 0 / 0 Stool 0 / 0 Urine/Stool Mix 0 / 0 Emesis 0 / 0 Urine Amount (Catheter) 150 / 150 175 / 175 80 / 80 Indwelling Urethral Catheter 150 / 150 175 / 175 80 / 80 Gastric Drainage 750 / 750 700 / 700 1000 / 1000 Gastrojejunostomy Tube 750 / 750 700 / 700 1000 / 1000 Jejunostomy Tube 0 / 0 Other: Other Intake Source Saline Solution Saline Solution # Voids 0 # Incontinent Voids 0 # Urine Diapers 0 Date of Last Bowel Movement 07/06/18 07/06/18 # Bowel Movements 2 0 # Incontinent Bowel Movements 1 # Emeses 0 07/04/18 16:15 Clean Catch Urine Urine Culture - Final Caitlyn tropicalis Enterococcus faecium VRE Lab - Hematology Results 07/08/18 07/09/18 06:38 17:40 WBC 12.0 H 24.4 H RBC 3.96 L 4.01 Hgb 11.7 11.6 Hct 34.4 L 35.1 MCV 86.9 87.5 MCH 29.5 28.9 MCHC 33.9 33.1 RDW 14.9 15.0 Plt Count 54 L 60 L MPV 11.7 H 11.9 H Prelim Diff (Auto) Manual diff required Manual diff required WBC Differential Manual diff final Seg Neuts % (Manual) 34 Band Neuts % (Manual) 4 Lymphocytes % (Manual) 19 Monocytes % (Manual) 16 H Eosinophils % (Manual) 4 Metamyelocytes % (Man) 11 H Myelocytes % (Man) 5 H Blast Cells % (Manual) 7 H Abs Neuts (Manual) 6.5 Differential Comment . . Toxic Vacuolation Present H Platelet Estimate Low L Platelet Morphology Enlarged H Ovalocytes 1+ H Lab - Chemistry Results 07/08/18 06:38 Sodium 141 Potassium 4.4 Chloride 103 Carbon Dioxide 25.3 Anion Gap 13 BUN 72 H Creatinine 2.45 H Estimated GFR 19 L Random Glucose 113 H Calcium 8.7 Imaging: ITS Impressions Abdomen/Bladder Ultrasound 05/06/18 00:00 CONCLUSION: 1. Increased renal echogenicity characteristic of medical renal disease. Small cyst right kidney. Dependent debris in the bladder. Tube Check 05/20/18 00:00 CONCLUSION: 1. Uncomplicated tube injection as above. The gastrojejunostomy tube is in good position. If there is concern for duodenal stricture resulting in a functional obstruction consideration could be made to the administration of barium either orally or through the gastric lumen of the tube to assess for any obstruction. Thin iodinated contrast would be limited in trying to assess this. Upper GI Series 05/21/18 00:00 CONCLUSION: No evidence of gastric outlet or duodenal obstruction. Abdomen/Pelvis CT 05/22/18 00:00 CONCLUSION: 1. Diverticulosis without perceptible diverticulitis or other acute inflammatory changes. 2. The gastrojejunostomy tube appears appropriately positioned. No perceptible associated acute complication. 3. There are scattered tiny nonobstructing stones of both kidneys and a small cyst on the right. 4. Small sliding-type hiatal hernia again seen. Chest CT 05/22/18 16:12 CONCLUSION: 1. Moderate left pleural effusion with atelectasis of the left lower lobe. 2. Mild right base atelectasis, improved compared to prior CT. 3. Right upper lobe pulmonary nodules are stable but the larger one remains concerning for primary bronchogenic carcinoma. Chest Ultrasound 05/23/18 00:00 CONCLUSION: 1. Lastly 360 cc of pleural effusion on the left. This does not appear loculated or complex. Site was marked Thoracentesis Ultrasound 05/23/18 00:00 CONCLUSION: Uncomplicated ultrasound-guided left chest thoracentesis as above. Extremity Arterial Study 05/24/18 00:00 CONCLUSION: 1. Severe reduction of the ABIs bilaterally. Chest CTA 05/26/18 00:00 CONCLUSION: 1. No evidence for pulmonary embolism. 2. Bibasilar consolidation. 3. Prominent nodule in the right upper lobe again seen measuring 13 mm concerning for malignancy. 4. Patchy opacities in the lingula and left lower lobe likely infectious. Hip X-Ray 06/26/18 00:00 CONCLUSION: Limited study. No definite bony fracture or joint dislocation. Knee X-Ray 06/26/18 00:00 CONCLUSION: Unremarkable exam for patient's age. Abdomen X-Ray 06/27/18 18:35 CONCLUSION: Within normal limits. No evidence of gastrojejunostomy tube leak. Tube Change 06/30/18 00:00 CONCLUSION: Uncomplicated gastrojejunostomy tube exchange as above. Chest X-Ray 07/04/18 00:00 CONCLUSION: Progression of the apparent congestive failure. Venous Doppler Study 07/04/18 00:00 CONCLUSION: 1. Nonocclusive thrombus in the right common femoral vein and greater saphenous vein probably recanalized old clot for the most part. 2. Negative for thrombus in the left Head CT 07/04/18 18:56 CONCLUSION: 1. Solitary 6 mm hypodense round lesion in the right basal ganglia is nonspecific on noncontrast CT. Patient has history of head and neck tumor. Differential considerations include lacunar infarct and a metastatic lesion. May consider further evaluation with MRI with and without contrast. . Cervical Spine X-Ray 07/04/18 18:57 CONCLUSION: Degenerative findings of the cervical spine. No fracture identified. C6 and C7 not well visualized on lateral view. Lumbar Spine X-Ray 07/04/18 18:59 CONCLUSION: Degenerative findings of the lumbar spine. No evidence of fracture. Thoracic Spine X-Ray 07/04/18 18:59 CONCLUSION: Degenerative findings of the thoracic spine. No evidence of fracture. Head MRI 07/08/18 07:01 CONCLUSION: 1. No acute intracranial abnormality. 2. Atrophy and chronic small vessel ischemic change. 3. Chronic lacunar infarction involving the right basal ganglia. Physical Exam: GENERAL: very lethartgic barely responsive thin chronically ill apperaing SKIN: Warm and dry. NO rash HEAD: Atraumatic. Normocephalic. EYES: No scleral icterus. ENT: No nasal bleeding or discharge. Mucous membranes pale and very dry NECK: Trach in place, site OK CARDIOVASCULAR: Regular rate and rhythm. + murmur, holosystolic RESPIRATORY: No accessory muscle use. failry clear to auscultation. Breath sounds equal bilaterally. GASTROINTESTINAL: Abdomen soft, not tender in LLQ and mildly distended w/o guarding and rebound PEG in place + erythema around, mild MUSCULOSKELETAL: Extremities without clubbing, cyanosis, No obvious deformities. 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 ATN Meropenem Zyvox Micafungin CT A/P CXR lori COELLO
[2018-07-09 19:38] LABS: Blast Cells 16 % (0-0); Eosinophils 4 % (0-4); Lymphocytes 4 % (9-44); Metamyelocytes 14 % (0-1); Monocytes 3 % (0-8); Myelocytes 18 % (0-0); Promyelocyte 1 % (0-0)
[2018-07-09 19:39] LABS: Toxic Vacuolation Present
--- NOTE | 2018-07-09 20:16 | CT ---
EXAM DATE: 07/09/2018 8:09 PM EST AGE/SEX: 73 years / Female INDICATIONS: Abdominal pain. Nausea and vomiting. CLINICAL DATA: This is the patient's initial encounter. Patient reports that signs and symptoms have been present for 1 day and indicates a pain score of 3/10. MEDICAL/SURGICAL HISTORY: Gastroesophageal reflux disease. Carcinoma, skin cancer. Rendon's e sophagus. Hernia. Cholecystectomy. RADIATION DOSE: 12.13 CTDI (mGy) COMPARISON: [facility] [place], CT ABDOMEN & PELVIS W/O CONTRAST, 05/22/2018. . TECHNIQUE: Multiple contiguous axial images were obtained through the abdomen. Images were obtained using multiple row detector helical technique. Using automated exposure control and adjustment of the mA and/or kV according to patient size, radiation dose was kept as low as reasonably achievable to o btain optimal diagnostic quality images. DICOM format image data is available electronically for rev iew and comparison. FINDINGS: Liver is enlarged at approximately 20 cm craniocaudal, similar to before. No focal hepatic lesion dem onstrated. Noncontrast appearance of the spleen and pancreas within normal. Mild nodularity again see n of both adrenal glands. There are multiple sub-3 mm nonobstructing stones of both kidneys. No urete ral calculus or hydronephrosis/hydroureter on either side. There is a 1.8 cm cyst of the right kidney again noted. No obstruction or acute inflammatory changes are seen of the gastrointestinal tract. Patient has a ga strojejunostomy tube which appears appropriately positioned. A small hiatal hernia is again noted. No free fluid or free air. No lymphadenopathy. Urinary bladder is decompressed with a Orellana catheter in grossly unremarkable. Tiny bilateral pleural effusions are present. There is mild dependent atelectasis of both bases as we ll. A possible pneumonic infiltrate in the visualized right middle lobe, series 5 image 1. CONCLUSION: 1. No obstruction, inflammatory changes or other acute abnormality seen within the abdomen or pelvis . 2. Hepatomegaly not significantly changed. 3. Scattered small nonobstructing stones of both kidneys and a benign appearing right renal cyst. 4. Possible right middle lobe pneumonia. The parenchymal opacities otherwise of the visualized lung bases are typical of atelectasis. Tiny bilateral effusions are present, smaller than before. 5. Gastrojejunostomy tube appears appropriately positioned. 6. Small hiatal hernia. 7. Small adrenal adenomas unchanged. Electronically signed by: Gee Babcock MD 07/09/2018 8:14 PM EST
--- NOTE | 2018-07-09 21:10 | XR ---
EXAM DATE: 07/09/2018 9:04 PM EST AGE/SEX: 73 years / Female INDICATIONS: Shortness of breath. Follow-up pulmonary infiltrates and congestive heart failure. CLINICAL DATA: This is the patient's subsequent encounter. Patient reports that signs and symptoms h ave been present for 3 weeks and indicates a pain score of 0/10. MEDICAL/SURGICAL HISTORY: . Gastroesophageal reflux disease. Carcinoma, skin cancer. Rendon's esophagus. Hernia. Cholecystectomy. COMPARISON: [facility], CHEST 1V SINGLE AP, 07/04/2018. . FINDINGS: A single AP portable semierect view of the chest was obtained and again demonstrates a tracheostomy t ube in place. The left PICC line remains in place. There is been interval improvement in the bilatera l pulmonary airspace disease with mild residual. The heart size remains mildly prominent. There is no distinct effusion now noted. The bony thorax remains intact. CONCLUSION: Interval improvement in pulmonary edema with mild residual. Electronically signed by: Saji Blood MD 07/09/2018 9:09 PM EST
[2018-07-09] MEDS: Micafungin Inj 150 MG in Sodium Chlor 0.9% Inj 100 ML IV.SIG SCH (22:16)
[2018-07-10] MEDS: Sod Chloride 0.9% Inj 1,000 ML IV.CONT SCH ×2 (05:25→17:00)
[2018-07-10] MEDS: Hyoscyamine Liq Drops 0.125 MG/ML 15 ML Bottle SL SCH ×4 (05:26→21:24)
[2018-07-10] MEDS: Pantoprazole Inj 40 MG Vial IV.PUSH SCH ×2 (06:01→17:06)
[2018-07-10] MEDS: Levothyroxine 150 MCG Tablet J-TUBE SCH (06:01)
[2018-07-10] MEDS: Morphine Sulfate Oral Liq 10 MG/0.5 ML Syringe SL PRN ×2 (08:53→16:15)
[2018-07-10] MEDS: Heparin Central Flush 100 UNIT/ML 5 ML Vial IV.FLUSH SCH (09:00)
[2018-07-10] MEDS: buPROPion 75 MG Tablet J-TUBE SCH ×2 (09:00→20:26)
[2018-07-10] MEDS: Loperamide Liq 2 MG/10 ML UDC J-TUBE SCH ×4 (09:00→20:26)
[2018-07-10 09:13] LABS: Calcium 7.6 mg/dL (8.5-10.1); Carbon Dioxide 20.4 meq/L (21.0-32.0); Potassium 4.5 meq/L (3.5-5.1)
[2018-07-10 09:39] LABS: Hemoglobin 9.6 gm/dL (11.6-15.3); Mean Corpuscular HGB Conc 33.1 % (32.0-36.0); Mean Corpuscular Hemoglobin 29.5 pg (27.0-34.0); Mean Platelet Volume 11.1 fL (7.0-11.0); Platelet Count 47 th/mm3 (150-450); Red Blood Count 3.25 mil/mm3 (4.00-5.30); White Blood Count 22.6 th/mm3 (4.0-11.0)
--- NOTE | 2018-07-10 09:44 | P.PNGI ---
Subjective Interval history: Asked to see pt for increased G tube output which has been coffee ground like. She is A&O. Denies nausea but does have some discomfort from Gtube site. Discussed her case with nursing and midlevel. Her Gtube had been connected to intermittent suction but yesterday had 600cc out. H&H stable. Protonix IV started and TF on hold. Physical Exam Vital signs: Vital Signs 07/09/18 10:06 07/09/18 10:15 07/09/18 20:00 Temperature 98.3 F Pulse Rate 88 Respiratory Rate 12 16 Blood Pressure 110/51 L Pulse Oximetry 97 07/09/18 21:50 07/10/18 06:00 07/10/18 06:58 Temperature Pulse Rate Respiratory Rate 16 16 Blood Pressure Pulse Oximetry 92 L Intake & Output 07/09/18 07/10/18 07/10/18 18:59 06:59 18:59 Intake Total 1520 / 1520 2836 / 2836 Output Total 1080 / 1080 680 / 680 Balance 440 / 440 2156 / 2156 Weight 47.3 kg Intake: IV 1500 / 1500 NS Inj 1,000 ML @ 100 mls/hr IV 1000 / 1000 .CONT .Q10H [facility] Rx#:[id number] Zyvox 600 mg Premix 300 ML @ 300 / 300 300 mls/hr IV.SIG ONCE ONE Rx#: [id number] Merrem Inj 500 MG In NS Inj 100 100 / 100 ML @ 200 mls/hr IV.SIG Q12H ANN Rx#:[id number] Mycamine Inj 150 MG In NS Inj 100 / 100 100 ML @ 100 mls/hr IV.SIG Q24H [facility] Rx#:[id number] Tube Feeding 540 / 540 716 / 716 Tube Irrigant 0 / 0 120 / 120 Water Bolus Amount 500 / 500 500 / 500 Other 480 / 480 Output: Urine Amount (Catheter) 80 / 80 80 / 80 Indwelling Urethral Catheter 80 / 80 80 / 80 Gastric Drainage 1000 / 1000 600 / 600 Gastrojejunostomy Tube 1000 / 1000 600 / 600 Other: Other Intake Source Saline Solution Date of Last Bowel Movement 07/09/18 # Bowel Movements 0 Narrative: Pt with trach and G/J tube. Lungs grossly clear. Breathing non-labored. Heart sounds regular. abd flat. Some erythema around G tube site but no purulent discharge or fluctuance. Dark watery gastric fluid leaking around G tube site. Ext bumper out about 2cm too far. tube marking at 3.5cm at skin level. Gauze dressing soaked and was removed. Once ext bumper snugged down to abd wall the leakage stopped. - Urinary Catheter Management Indwelling Urethral Catheter Cath placed during this visit: yes, but has since been removed by the nurse Reason for continuing: Acute urinary retention Insertion date: 06/26/18 Insertion time: 00:30 Removal date: 06/26/18 Removal time: 00:00 Results - Labs CBC & Chem 7: 07/10/18 08:40 07/10/18 08:23 Laboratory Results - last 24 hr 07/09/18 07/10/18 17:40 08:23 WBC 24.4 H RBC 4.01 Hgb 11.6 Hct 35.1 MCV 87.5 MCH 28.9 MCHC 33.1 RDW 15.0 Plt Count 60 L MPV 11.9 H Prelim Diff (Auto) Manual diff required WBC Differential Manual diff final Seg Neuts % (Manual) 35 Band Neuts % (Manual) 5 Lymphocytes % (Manual) 4 L Monocytes % (Manual) 3 Eosinophils % (Manual) 4 Metamyelocytes % (Man) 14 H Myelocytes % (Man) 18 H Promyelocytes % (Man) 1 H Blast Cells % (Manual) 16 H Abs Neuts (Manual) 17.8 H Differential Comment . Toxic Vacuolation Present H Platelet Estimate Low L Platelet Morphology Enlarged H Sodium 138 Potassium 4.5 Chloride 102 Carbon Dioxide 20.4 L Anion Gap 16 H BUN 98 H Creatinine 4.39 H Estimated GFR 10 L Random Glucose 137 H Calcium 7.6 L - Imaging Impressions Abdomen/Pelvis CT 07/09/18 00:00 CONCLUSION: 1. No obstruction, inflammatory changes or other acute abnormality seen within the abdomen or pelvis. 2. Hepatomegaly not significantly changed. 3. Scattered small nonobstructing stones of both kidneys and a benign appearing right renal cyst. 4. Possible right middle lobe pneumonia. The parenchymal opacities otherwise of the visualized lung bases are typical of atelectasis. Tiny bilateral effusions are present, smaller than before. 5. Gastrojejunostomy tube appears appropriately positioned. 6. Small hiatal hernia. 7. Small adrenal adenomas unchanged. Chest X-Ray 07/09/18 00:00 CONCLUSION: Interval improvement in pulmonary edema with mild residual. Assessment and Plan - Plan Imp: 1. Feeding difficulties-pt likely has gastric erosions/ulcerations but bleeding appears minimal. Leakage of gastric contents around G tube should improve if keep external bumper in correct position. Continue a PPI and monitor H&H. 2. Gastroparesis-pt not on a motility agent currently. Will resume J tube feedings and try G tube port to gravity drainage. 3. Worsening renal fx-discussed with HEPAS who will address problem.
[2018-07-10] MEDS: Ascorbic Acid 500 MG Tablet J-TUBE SCH ×2 (09:55→20:26)
[2018-07-10] MEDS: Lactobacillus Acidophilus/L. Spores Tablet J-TUBE SCH ×3 (09:55→17:06)
[2018-07-10] MEDS: Lidocaine 5% Patch T-DERMAL SCH (09:56)
[2018-07-10 10:40] LABS: Blast Cells 8 % (0-0); Lymphocytes 4 % (9-44); Metamyelocytes 7 % (0-1); Monocytes 5 % (0-8); Myelocytes 24 % (0-0)
[2018-07-10 10:42] LABS: Ovalocytes 1+
--- NOTE | 2018-07-10 14:07 | P.CONNP ---
History of Present Illness Service: Nephrology Consult date: 07/10/18 Primary Care Provider: UNKNOWN History of Present Illness: 73 year old male with Laryngeal cancer, s/p tracheostomy, G-J Tube, she has complicated prolong hospitalization, she was admitted in February and then subsequently went to [place] has respiratory complications, Pneumonia, transferred to ICU 04/23/18 , had to be on ventilator, she was subsequently required prolong antibiotics, continue to do poorly, she was transferred to floor, Urine output started declining few days ago, she has vey low Blood pressures at time, she has been on NS at 100 cc/hr and getting Free water 250 cc q 6, UOP is low, she also has VRE, lolly in urine, Pseudomonas in sputum, frail and thin appearing, she has decided to make herself a DNR. Her Creatinine was 4.39/BUN 98 and GFR 10, I have been asked to see her. Patient was seen by Dr. Oleary earlier last month. Review of Systems Constitutional: Reports anorexia, Reports body ache(s) Ears, Nose, Mouth, and Throat: Reports other (tracheostomy) Cardiovascular: Reports shortness of breath Respiratory: Reports shortness of breath Gastrointestinal: Reports difficulty swallowing Genitourinary: Reports other (UOP low) Musculoskeletal: Reports muscle weakness Skin/Breast: Reports other Neurologic: Reports weakness Psychiatric: Reports depression PMFSH - History History Provided By: Patient, Medical Record, Law Enforcement - Medical History Medical History: Medical History (Last Reviewed 07/10/18 @ 14:00 by Yury Blanco MD) History of MDR Pseudomonas aeruginosa infection Onset Date: ~06/03/18 MDRO (multiple drug resistant organisms) resistance Arthritis Barretts esophagus GERD (gastroesophageal reflux disease) Hypothyroidism 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 - Surgical History Surgical History: Surgical History (Last Reviewed 07/10/18 @ 14:01 by Yury Blanco MD) History of cholecystectomy History of colonoscopy History of esophagogastroduodenoscopy (EGD) History of hernia repair History of oral surgery History of tonsillectomy and adenoidectomy History of esophageal dilatation (Resolved) - Family History Family History: Family History (Last Reviewed 04/22/18 @ 23:12 by Maribell Canchola MD) Mother Breast cancer Father Heart problem - Tobacco History Second Hand Smoke Exposure: No Smoking Status: Former smoker (Prior smoker for over 25 years) Tobacco Type: Cigarettes years: 30 - Alcohol History How Often Do You Have a Drink Containing Alcohol: 2 to 3 times a week (prior to hospitalization) - Substance Use History Substance History: No History of Abuse Medications and Allergies Active Medications: Active Medications Acetaminophen (Tylenol) 650 mg J-TUBE Q4H PRN PRN Reason: ELEVATED TEMP/HEADACHE Last Admin: 05/28/18 20:42 Dose: 650 mg Hydrocodone Bitart/Acetaminophen ([place]ke 5/325) 1 tab J-TUBE Q4H PRN PRN Reason: PAIN 2-5 Last Admin: 07/06/18 08:33 Dose: 1 tab Hydrocodone Bitart/Acetaminophen (Locke 5/325) 2 tab J-TUBE Q4H PRN PRN Reason: PAIN 6-10 Last Admin: 07/10/18 06:26 Dose: 2 tab Hydrocodone Bitart/Acetaminophen (Locke 5/325) 1 tab J-TUBE Q8H ANN Last Admin: 07/04/18 15:42 Dose: 1 tab Al Hydroxide/Mg Hydroxide (Milk Of Magnelle Liq) 30 ml J-TUBE Q12H PRN PRN Reason: Mild Constipation Albuterol (Duoneb Neb (Prn)) 1 ampul NEB Q2HR NEB PRN PRN Reason: WHEEZING Last Admin: 06/02/18 20:58 Dose: 1 ampul Ascorbic Acid (Vitamin C) 500 mg J-TUBE BID [facility] Last Admin: 07/10/18 09:55 Dose: 500 mg Bisacodyl (Dulcolax Supp) 10 mg RECTAL DAILY PRN PRN Reason: SEVERE CONSITIPATION Bupropion HCl (Wellbutrin) 150 mg J-TUBE BID [facility] Last Admin: 07/10/18 09:00 Dose: 150 mg Cetirizine HCl (Zyrtec) 10 mg J-TUBE HS [facility] Last Admin: 07/09/18 21:05 Dose: 10 mg Clonazepam (Klonopin) 0.5 mg J-TUBE Q8HR PRN PRN Reason: ANXIETY Last Admin: 06/09/18 21:25 Dose: 0.5 mg Diphenhydramine HCl (Benadryl) 25 mg J-TUBE Q4H PRN PRN Reason: ITCHING Last Admin: 07/09/18 09:28 Dose: 25 mg Enoxaparin Sodium (Lovenox Inj) 60 mg SQ Q24H [facility] Last Admin: 05/30/18 00:15 Dose: 60 mg Escitalopram Oxalate (Lexapro) 20 mg J-TUBE DAILY [facility] Last Admin: 07/10/18 09:55 Dose: 20 mg Glycopyrrolate (Robinul Inj) 0.4 mg IV.PUSH Q8H PRN PRN Reason: THICK SECRETIONS Last Admin: 07/09/18 09:25 Dose: 0.4 mg Heparin Sodium (Porcine) (Heparin Central Flush) 0 unit IV.FLUSH DAILY ANN Last Admin: 07/10/18 09:00 Dose: 200 unit Heparin Sodium (Porcine) (Heparin Central Flush) 0 unit IV.FLUSH PRN PRN PRN Reason: Flush PICC Line Last Admin: 06/03/18 00:38 Dose: 200 unit Hyoscyamine (Levsin Liq) 0.125 mg SL Q6H [facility] Last Admin: 07/10/18 10:00 Dose: 0.125 mg Sodium Chloride (Ns Inj) 1,000 mls @ 100 mls/hr IV.CONT .Q10H [facility] Last Admin: 07/10/18 05:25 Dose: 100 mls/hr Linezolid (Zyvox 600 Mg Premix) 300 mls @ 300 mls/hr IV.SIG Q12HR [facility] Last Infusion: 07/10/18 11:15 Dose: Infused Meropenem 500 mg/ Sodium (Chloride) 100 mls @ 200 mls/hr IV.SIG Q12H [facility] Last Infusion: 07/10/18 08:30 Dose: Infused Micafungin Sodium 150 mg/ (Sodium Chloride) 100 mls @ 100 mls/hr IV.SIG Q24H [facility] Last Infusion: 07/09/18 23:15 Dose: Infused Lactobacillus Acidophilus (Lactinex) 1 tab J-TUBE TID [facility] Last Admin: 07/10/18 12:50 Dose: 1 tab Lansoprazole (Prevacid Solutab) 30 mg J-TUBE BID [facility] Last Admin: 07/09/18 09:29 Dose: 30 mg Levothyroxine Sodium (Synthroid) 150 mcg J-TUBE DAILY@0600 [facility] Last Admin: 07/10/18 06:01 Dose: 150 mcg Lidocaine HCl (Xylocaine 2% Viscous) 2.5 ml OROPHARYNG Q6H PRN PRN Reason: SEE LABEL COMMENTS Last Admin: 05/02/18 21:05 Dose: 2.5 ml Lidocaine HCl (Lidoderm 5% Patch.12 Hr) 1 patch T-DERMAL DAILY [facility] Last Admin: 07/10/18 09:56 Dose: 1 patch Loperamide HCl (Imodium Liq) 2 mg J-TUBE QID [facility] Last Admin: 07/10/18 12:50 Dose: Not Given Menthol ([place]) 1 lozenge BUCCAL BID PRN PRN Reason: PAIN SCALE 1 TO 4/COUGH Miscellaneous (Pill Splitter) 1 each OTHER UNSCH PRN PRN Reason: SEE LABEL COMMENTS Morphine Sulfate (Roxanol Liq) 5 mg SL Q4H PRN PRN Reason: BREAKTHROUGH pain 2-10 Last Admin: 07/10/18 08:53 Dose: 5 mg Multivitamins (Theragran) 1 tab J-TUBE DAILY [facility] Last Admin: 07/10/18 09:55 Dose: 1 tab Neomycin/Polymyxin/Bacitracin (Neosporin Oint) 1 applicatio TOPICAL BID [facility] Last Admin: 07/04/18 09:12 Dose: 1 applicatio Nystatin/Triamcinolone Acetonide (Mycolog Ii Cream) 1 applicatio TOPICAL BID [facility] Last Admin: 07/10/18 09:56 Dose: 1 applicatio Ondansetron HCl (Zofran Odt) 4 mg PO Q6H PRN PRN Reason: NAUSEA OR VOMITING Last Admin: 06/27/18 06:47 Dose: 4 mg Pantoprazole Sodium (Protonix Inj) 40 mg IV.PUSH Q12H [facility] Last Admin: 07/10/18 06:01 Dose: 40 mg Patch Removal (Remove Old Patch) 1 each T-DERMAL HS [facility] Last Admin: 07/09/18 22:24 Dose: 1 each Pregabalin (Lyrica) 75 mg G-TUBE BID [facility] Last Admin: 07/04/18 09:13 Dose: 75 mg Simethicone (Phazyme Chew) 125 mg J-TUBE Q4H PRN PRN Reason: RELATING TO BLOATING Last Admin: 07/04/18 09:13 Dose: 125 mg Sodium Chloride (Ns Flush) 0 ml IV.FLUSH DAILY [facility] Last Admin: 07/10/18 09:56 Dose: Not Given Sodium Chloride (Ns Flush) 0 ml IV.FLUSH PRN PRN PRN Reason: FLUSH AFTER USING IV ACCESS Last Admin: 06/03/18 00:39 Dose: 5 ml Sodium Chloride (Ns Flush) 0 ml IV.FLUSH PRN PRN PRN Reason: Flush After Blood Draws Last Admin: 06/07/18 20:18 Dose: 10 ml Sterile Water (Free Water) 250 ml J-TUBE Q6HR [facility] Last Admin: 07/10/18 12:00 Dose: 250 ml Temazepam (Restoril) 15 mg J-TUBE HS PRN PRN Reason: INSOMNIA Last Admin: 05/16/18 20:17 Dose: 15 mg Zinc Oxide (Zinc Oxide 20% Oint) 1 applicatio TOPICAL BID [facility] Last Admin: 07/10/18 09:57 Dose: 1 applicatio Zinc Sulfate (Zinc-220) 220 mg J-TUBE DAILY [facility] Last Admin: 07/10/18 09:55 Dose: 220 mg Allergies Allergy/AdvReac Type Severity Reaction Status Date / Time epinephrine Allergy Severe TACHYCARDIA Verified 02/21/18 08:40 penicillin G Allergy Severe Hives Verified 02/21/18 08:40 peanut Allergy Intermediate ANAPHYLAXIS Verified 02/21/18 08:40 legumes Allergy Unknown Anaphylaxis Verified 03/06/18 21:48 soy Allergy Rash Verified 03/06/18 21:45 Home Medications Medication Instructions Recorded Confirmed Type cetirizine 10 mg PO HS 02/15/18 05/13/18 History escitalopram oxalate 20 mg FEEDING TUBE DAILY 02/15/18 05/13/18 History levothyroxine 100 mcg FEEDING TUBE DAILY 02/15/18 05/13/18 History ascorbic acid (vitamin C) 500 mg FEEDING TUBE BID 03/06/18 05/13/18 History multivitamin [Daily Multi-Vitamin] 1 tab FEEDING TUBE DAILY 03/06/18 05/13/18 History Exam Vital signs: Vital Signs 07/09/18 20:00 07/09/18 21:50 07/10/18 06:00 Temperature 98.3 F Pulse Rate 88 Respiratory Rate 16 16 Blood Pressure 110/51 L Pulse Oximetry 92 L 07/10/18 06:58 Temperature Pulse Rate Respiratory Rate 16 Blood Pressure Pulse Oximetry Intake & Output 07/09/18 07/10/18 07/10/18 18:59 06:59 18:59 Intake Total 1520 / 1520 2836 / 2836 400 / 400 Output Total 1080 / 1080 680 / 680 Balance 440 / 440 2156 / 2156 400 / 400 Weight 47.3 kg Intake: IV 1500 / 1500 400 / 400 NS Inj 1,000 ML @ 100 mls/hr IV 1000 / 1000 .CONT .Q10H ANN Rx#:[id number] Zyvox 600 mg Premix 300 ML @ 300 / 300 300 / 300 300 mls/hr IV.SIG Q12HR ANN Rx# :[id number] Merrem Inj 500 MG In NS Inj 100 100 / 100 100 / 100 ML @ 200 mls/hr IV.SIG Q12H ANN Rx#:[id number] Mycamine Inj 150 MG In NS Inj 100 / 100 100 ML @ 100 mls/hr IV.SIG Q24H ANN Rx#:[id number] Tube Feeding 540 / 540 716 / 716 Tube Irrigant 0 / 0 120 / 120 Water Bolus Amount 500 / 500 500 / 500 Other 480 / 480 Output: Urine Amount (Catheter) 80 / 80 80 / 80 Indwelling Urethral Catheter 80 / 80 80 / 80 Gastric Drainage 1000 / 1000 600 / 600 Gastrojejunostomy Tube 1000 / 1000 600 / 600 Other: Other Intake Source Saline Solution Date of Last Bowel Movement 07/09/18 # Bowel Movements 0 Narrative: GENERAL: mal-nourished, well-developed Frail appearing patient. SKIN: Warm and dry. HEAD: Normocephalic. EYES: No scleral icterus. No injection or drainage. NECK: Supple, tracheostomy CARDIOVASCULAR: Regular rate and rhythm without murmurs, gallops, or rubs. RESPIRATORY: Breath sounds diminished at bases wheezes and crackles GASTROINTESTINAL: Abdomen soft, non-tender, nondistended. G-J tube in place. EXTREMITIES: muscles wasting positive, no edema. NEUROLOGICAL: Awake, alert, and oriented x 3. Non-focal. Results - Lab Results 07/11/18 09:39 07/11/18 08:00 Most recent lab results ABG pH 7.44 (7.380-7.420) H 05/29/18 14:31 ABG pCO2 30 mmHg (38-42) L 05/29/18 14:31 ABG pO2 69 mmHG (61-120) 05/29/18 14:31 ABG HCO3 20 mmol/L (22-26) L 05/29/18 14:31 Calcium 7.6 mg/dL (8.5-10.1) L 07/10/18 08:23 Phosphorus 3.3 mg/dL (2.5-4.9) 06/02/18 07:40 Magnesium 1.8 mg/dL (1.5-2.5) 06/13/18 10:44 Assessment and Plan - Assessment (1) BETSEY (acute kidney injury) Code(s): N17.9 - Acute kidney failure, unspecified Status: Acute Plan: (1) BETSEY (acute kidney injury) Code(s): N17.9 - Acute kidney failure, unspecified Status: Acute Plan: Continue supportive care. attempted to reach son but was unsuccessful Patient desire no dialysis, d/w staff she is A/O and made herself DNR, attempt Albumin 50 g IV may use Lasix afterwards Not a candidate for dialysis, as patient refused and it will be very difficult to do dialysis given her failing health, low Blood pressure, respiratory failure , Multiorgan failure assisted outlook is poor. (2) Pneumonia Code(s): J18.9 - Pneumonia, unspecified organism Status: Acute Plan: Patient is on antibiotics. On droplet precautions. - Plan Very poor prognosis. At risk for multiple complications.
--- NOTE | 2018-07-10 14:48 | P.PN ---
Subjective Interval history: Seen by Nephrology and GI.On a T Collar with PM valve. Now on tube feeds. CR is >4.2. Poor output Tolerates tube feeds. Physical Exam Vital signs: Vital Signs 07/09/18 20:00 07/09/18 21:50 07/10/18 06:00 Temperature 98.3 F Pulse Rate 88 Respiratory Rate 16 16 Blood Pressure 110/51 L Pulse Oximetry 92 L 07/10/18 06:58 07/10/18 08:00 Temperature 99.6 F Pulse Rate 78 Respiratory Rate 16 16 Blood Pressure 98/48 L Pulse Oximetry Intake & Output 07/09/18 07/10/18 07/10/18 18:59 06:59 18:59 Intake Total 1520 / 1520 2836 / 2836 400 / 400 Output Total 1080 / 1080 680 / 680 Balance 440 / 440 2156 / 2156 400 / 400 Weight 47.3 kg Intake: IV 1500 / 1500 400 / 400 NS Inj 1,000 ML @ 100 mls/hr IV 1000 / 1000 .CONT .Q10H ANN Rx#:[id number] Zyvox 600 mg Premix 300 ML @ 300 / 300 300 / 300 300 mls/hr IV.SIG Q12HR ANN Rx# :[id number] Merrem Inj 500 MG In NS Inj 100 100 / 100 100 / 100 ML @ 200 mls/hr IV.SIG Q12H ANN Rx#:[id number] Mycamine Inj 150 MG In NS Inj 100 / 100 100 ML @ 100 mls/hr IV.SIG Q24H ANN Rx#:[id number] Tube Feeding 540 / 540 716 / 716 Tube Irrigant 0 / 0 120 / 120 Water Bolus Amount 500 / 500 500 / 500 Other 480 / 480 Output: Urine Amount (Catheter) 80 / 80 80 / 80 Indwelling Urethral Catheter 80 / 80 80 / 80 Gastric Drainage 1000 / 1000 600 / 600 Gastrojejunostomy Tube 1000 / 1000 600 / 600 Other: Other Intake Source Saline Solution Date of Last Bowel Movement 07/09/18 07/09/18 # Bowel Movements 0 Narrative: GENERAL: Poorly nourished, Frail appearing patient. SKIN: Warm and dry. HEAD: Normocephalic. EYES: No scleral icterus. No injection or drainage. NECK: Supple, tracheostomy in place. CARDIOVASCULAR: Regular rate and rhythm without murmurs, gallops, or rubs. RESPIRATORY: Breath sounds diminished at bases and occ crackles. GASTROINTESTINAL: Abdomen soft, non-tender, nondistended. G-J tube in place. EXTREMITIES: muscles wasting positive, no edema. NEUROLOGICAL: Awake, alert, and oriented x 3. Non-focal. - Urinary Catheter Management Indwelling Urethral Catheter Cath placed during this visit: yes, but has since been removed by the nurse Reason for continuing: Acute urinary retention Insertion date: 06/26/18 Insertion time: 00:30 Removal date: 06/26/18 Removal time: 00:00 Results - Labs CBC & Chem 7: 07/10/18 08:40 07/10/18 08:23 Laboratory Results - last 24 hr 07/09/18 07/10/18 07/10/18 17:40 08:23 08:40 WBC 24.4 H 22.6 H RBC 4.01 3.25 L Hgb 11.6 9.6 L D Hct 35.1 29.0 L MCV 87.5 89.0 MCH 28.9 29.5 MCHC 33.1 33.1 RDW 15.0 15.0 Plt Count 60 L 47 L MPV 11.9 H 11.1 H Prelim Diff (Auto) Manual diff required Manual diff required WBC Differential Manual diff final Manual diff final Seg Neuts % (Manual) 35 32 Band Neuts % (Manual) 5 20 H Lymphocytes % (Manual) 4 L 4 L Monocytes % (Manual) 3 5 Eosinophils % (Manual) 4 Metamyelocytes % (Man) 14 H 7 H Myelocytes % (Man) 18 H 24 H Promyelocytes % (Man) 1 H Blast Cells % (Manual) 16 H 8 H Abs Neuts (Manual) 17.8 H 18.8 H Differential Comment . . Toxic Vacuolation Present H Platelet Estimate Low L Low L Platelet Morphology Enlarged H Enlarged H Ovalocytes 1+ H Sodium 138 Potassium 4.5 Chloride 102 Carbon Dioxide 20.4 L Anion Gap 16 H BUN 98 H Creatinine 4.39 H Estimated GFR 10 L Random Glucose 137 H Calcium 7.6 L - Imaging Impressions Abdomen/Pelvis CT 07/09/18 00:00 CONCLUSION: 1. No obstruction, inflammatory changes or other acute abnormality seen within the abdomen or pelvis. 2. Hepatomegaly not significantly changed. 3. Scattered small nonobstructing stones of both kidneys and a benign appearing right renal cyst. 4. Possible right middle lobe pneumonia. The parenchymal opacities otherwise of the visualized lung bases are typical of atelectasis. Tiny bilateral effusions are present, smaller than before. 5. Gastrojejunostomy tube appears appropriately positioned. 6. Small hiatal hernia. 7. Small adrenal adenomas unchanged. Chest X-Ray 07/09/18 00:00 CONCLUSION: Interval improvement in pulmonary edema with mild residual. 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 Cont T collar at 28 % FIO2 . 2. Cont nebs with albuterol qid. PRN 3. Cont Lovenox 60 mg daily S/Q 4. Cont Levsin .125 mg qid prn. 5. Continue J tube feeds 6. Levsin .125 mg TID Prn for secretions 7. Antibiotics per ID 8. IV Fluids NS at 40 CC
[2018-07-10] MEDS ORDERED: Morphine Inj 4 MG/ML Vial IV.PUSH PRN (16:37)
[2018-07-10] MEDS ORDERED: Naloxone Inj 0.4 MG/ML Vial IV.PUSH PRN (16:37)
--- NOTE | 2018-07-10 18:19 | P.PN ---
Subjective Interval history: Patient is seen lying quietly in bed. She tells me that she feels very weak and is having a lot of pain. Discussed that her kidney function is very poor and that she likely has infection. Reiterates to me that she is not interested in resuscitation and that she is just "tired". Physical Exam Vital signs: Vital Signs 07/09/18 20:00 07/09/18 21:50 07/10/18 06:00 Temperature 98.3 F Pulse Rate 88 Respiratory Rate 16 16 Blood Pressure 110/51 L Pulse Oximetry 92 L 07/10/18 06:58 07/10/18 07:00 07/10/18 08:00 Temperature 99.6 F Pulse Rate 78 Respiratory Rate 16 16 Blood Pressure 98/48 L Pulse Oximetry 98 07/10/18 16:56 Temperature Pulse Rate Respiratory Rate 20 Blood Pressure Pulse Oximetry Intake & Output 07/09/18 07/10/18 07/10/18 18:59 06:59 18:59 Intake Total 1520 / 1520 2836 / 2836 1400 / 1400 Output Total 1080 / 1080 680 / 680 Balance 440 / 440 2156 / 2156 1400 / 1400 Weight 47.3 kg 47.8 kg Intake: IV 1500 / 1500 1400 / 1400 NS Inj 1,000 ML @ 50 mls/hr IV. 1000 / 1000 1000 / 1000 CONT .Q20H ANN Rx#:[id number] Zyvox 600 mg Premix 300 ML @ 300 / 300 300 / 300 300 mls/hr IV.SIG Q12HR ANN Rx# :[id number] Merrem Inj 500 MG In NS Inj 100 100 / 100 100 / 100 ML @ 200 mls/hr IV.SIG Q12H ANN Rx#:[id number] Mycamine Inj 150 MG In NS Inj 100 / 100 100 ML @ 100 mls/hr IV.SIG Q24H ANN Rx#:[id number] Tube Feeding 540 / 540 716 / 716 Tube Irrigant 0 / 0 120 / 120 Water Bolus Amount 500 / 500 500 / 500 Other 480 / 480 Output: Urine Amount (Catheter) 80 / 80 80 / 80 Indwelling Urethral Catheter 80 / 80 80 / 80 Gastric Drainage 1000 / 1000 600 / 600 Gastrojejunostomy Tube 1000 / 1000 600 / 600 Other: Other Intake Source Saline Solution Date of Last Bowel Movement 07/09/18 07/09/18 # Bowel Movements 0 Narrative: GENERAL: Poorly nourished, Frail appearing patient. SKIN: Warm and dry. HEAD: Normocephalic. EYES: No scleral icterus. No injection or drainage. NECK: Supple, tracheostomy in place. CARDIOVASCULAR: Regular rate and rhythm without murmurs, gallops, or rubs. RESPIRATORY: Breath sounds diminished at bases and occ crackles. GASTROINTESTINAL: Abdomen soft, non-tender, nondistended. G-J tube in place. Significant drainage noted on dressing of G-tube. EXTREMITIES: muscles wasting positive, no edema. NEUROLOGICAL: Awake, alert, and oriented x 3. Non-focal. - Urinary Catheter Management Indwelling Urethral Catheter Cath placed during this visit: yes, but has since been removed by the nurse Reason for continuing: Acute urinary retention Insertion date: 06/26/18 Insertion time: 00:30 Removal date: 06/26/18 Removal time: 00:00 Results - Labs CBC & Chem 7: 07/10/18 08:40 07/10/18 08:23 Laboratory Results - last 24 hr 07/09/18 07/10/18 07/10/18 17:40 08:23 08:40 WBC 24.4 H 22.6 H RBC 4.01 3.25 L Hgb 11.6 9.6 L D Hct 35.1 29.0 L MCV 87.5 89.0 MCH 28.9 29.5 MCHC 33.1 33.1 RDW 15.0 15.0 Plt Count 60 L 47 L MPV 11.9 H 11.1 H Prelim Diff (Auto) Manual diff required Manual diff required WBC Differential Manual diff final Manual diff final Seg Neuts % (Manual) 35 32 Band Neuts % (Manual) 5 20 H Lymphocytes % (Manual) 4 L 4 L Monocytes % (Manual) 3 5 Eosinophils % (Manual) 4 Metamyelocytes % (Man) 14 H 7 H Myelocytes % (Man) 18 H 24 H Promyelocytes % (Man) 1 H Blast Cells % (Manual) 16 H 8 H Abs Neuts (Manual) 17.8 H 18.8 H Differential Comment . . Toxic Vacuolation Present H Platelet Estimate Low L Low L Platelet Morphology Enlarged H Enlarged H Ovalocytes 1+ H Sodium 138 Potassium 4.5 Chloride 102 Carbon Dioxide 20.4 L Anion Gap 16 H BUN 98 H Creatinine 4.39 H Estimated GFR 10 L Random Glucose 137 H Calcium 7.6 L - Imaging Impressions Abdomen/Pelvis CT 07/09/18 00:00 CONCLUSION: 1. No obstruction, inflammatory changes or other acute abnormality seen within the abdomen or pelvis. 2. Hepatomegaly not significantly changed. 3. Scattered small nonobstructing stones of both kidneys and a benign appearing right renal cyst. 4. Possible right middle lobe pneumonia. The parenchymal opacities otherwise of the visualized lung bases are typical of atelectasis. Tiny bilateral effusions are present, smaller than before. 5. Gastrojejunostomy tube appears appropriately positioned. 6. Small hiatal hernia. 7. Small adrenal adenomas unchanged. Chest X-Ray 07/09/18 00:00 CONCLUSION: Interval improvement in pulmonary edema with mild residual. Assessment and Plan - Assessment (1) Respiratory failure Code(s): J96.90 - Respiratory failure, unspecified, unspecified whether with hypoxia or hypercapnia Status: Acute (2) Pneumonia Code(s): J18.9 - Pneumonia, unspecified organism Status: Acute (3) Status post trachelectomy Code(s): Z90.710 - Acquired absence of both cervix and uterus Status: Acute (4) Carcinoma of supraglottis Code(s): C32.1 - Malignant neoplasm of supraglottis Status: Acute (5) COPD (chronic obstructive pulmonary disease) Code(s): J44.9 - Chronic obstructive pulmonary disease, unspecified Status: Acute (6) Dysphagia Code(s): R13.10 - Dysphagia, unspecified Status: Chronic (7) Lung nodule, solitary Code(s): R91.1 - Solitary pulmonary nodule Status: Acute (8) Lung nodules Code(s): R91.8 - Other nonspecific abnormal finding of lung field Status: Acute - Plan 73-year-old female with 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 The rapid response was called and the patient was transferred to ICU where she was placed on 60% oxygenation via trach collar. [facility] reconsulted 05/23 due to hypotension. Currently managed for recurrent respiratory infections with MDRO managed by ID. CT chest does demonstrate a moderate left pleural effusion with left lower lobe atelectasis s/p thoracocentesis. Patient was again sent over to the ICU on 05/29 for acute pulmonary edema with further fever spikes. Patient underwent diuresis and was made a no code, was eventually stabilized and transition back to hospitalist care. 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 Nephro consulted -patient refusing dialysis S/P Fall -Fell last night 07/04/18 as per nursing -CT with 6 mm lesion recommended MRI. MRI ordered. -No neurological changes noted -Thoracic spine x-ray degenerative findings no fracture -Lumbar spine x-ray degenerative findings no evidence of fracture -Cervical spine x-ray degenerative findings no fracture. C6 and C7 not well visualized on lateral view -Neuro checks. Fall precaution -Son spoke with nurse does not want MRI if Benzo or other sedatives will be given to patient. -MRI negative Fluid overload, patient on IVF for low BP and received transfusion 2u PRBCs previously -CXR shows coarse interstitial changes throughout both lung, moderate edema that has progressed. -IV Lasix given previous days -monitor respiratory status -Restarted IVF low rate, monitor for fluid overload GJ tube with leakage Soft tissue mass thru PEG site -s/p cauterization by Dr. Bautista. GJ tube not in proper position causing leaking; monitor bumper. -s/p IR GJ tube placement 06/30. Leakage around PEG site improved with escalation of PPI. -Tolerating tube feeds at 40cc/hr, titrate up slowly and monitor for recurrence of leakage. Goal 55ml as per cement sprayer helper -monitor skin around PEG site,slight erythema noted, continue with present tx. -Keep G-tube to gravity drainage per Dr. Aly. Recent coffee-ground drainage likely related to suction. Pancytopenia d/t myelodysplastic syndrome Per Heme/Onc: pancytopenia is due to MDS. She is not a candidate for chemo. Recommendation for pancytopenia is transfusion of PRBC (if Hg <7) and plat(if plat <15) support. -Lovenox held due to thrombocytopenia. Repeat Doppler 05/30 shows recannulization. Anticoagulation recommended with platelet count consistently greater than 75,000; otherwise hold. -07/02 patients Hgb dropped to 6.4. Transfused 2u PRBCS. Repeat hgb following transfusion 9.3. -Monitor H&H History of DVT, Right lower extremity -Has complained of pain but now more of ankle pain -Previously was on Lovenox but held due to thrombocytopenia as above. Platelet 64, Lovenox can only be restarted if platelet is at 75 as per hematology recommendation -Lovenox has been continuously held. Consulted hematology for further recommendations. -07/04 venous Doppler showed 1. Nonocclusive thrombus in the right common femoral vein and greater saphenous vein probably recanalized old clot for the most part. 2. Negative for thrombus in the left. -Hematology continues to recommend starting anticoagulation only if platelet is greater than 75,000. -PLT 54. Monitor Intermittent hypotension -Hypotensive, improved with blood transfusion and IVF -Monitoring and keep map above 60 MDRO PSAE persistent colonization both sputum and urine Leukocytosis w/ repeat UTI PNA, MDRO PSAE, Steno malt 05/29 History of squamous cell carcinoma of the larynx now status post tracheostomy due to recurrent aspiration Spiculated right upper lobe pulmonary nodule, multiple R pulmonary nodules -Dr. Pineda has discussed risk/ benefits of biopsy with patient and her son on 05/05 and at that time they opted to defer biopsy. -Moderate pleural effusion s/p thora on 05/23, Cultures neg. -ID followed patient, Dr. Canchola, Bld Cx from 05/29 negative, Urine Cx from 05/29, negative, Sputum Cx on 05/29+ -Pseudomonas MDR, sensitive to only tobramycin. 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 -Repeat urine culture lolly tropicalis, VRE EColi MDRO <50K, ID following -07/09 -WBCs increased to 24+. ID reconsulted. Repeat cultures ordered Right hip and right knee pain-patient complaining of right hip pain and knee pain No history of trauma to knee, xray unremarkable. -Possibly due to clot burden??. Patient off Lovenox since 05/30. -Continue pain control with [place] and Tylenol. Trial of Lidoderm patch and K thermia. -Lyrica BID. Depression/anxiety -Continue Lexapro and Wellbutrin, Continue Klonopin through the G-tube every 8 hours, Temazepam as needed for insomnia Gastroesophageal reflux disease -Continue PPI and lactobacillus through the G-tube to gravity, discussed with nurse, gauze underneath to prevent skin maceration. Diarrhea -Likely secondary to antibiotics, improved. C. difficile studies were negative on 05/25, Continue Lomotil. R 1st digit of foot with increased erythema s/p trimming of ingrow toenail -Podiatry recs from 06/01: Recommend triple antibiotic with Band-Aid to right hallux medial border. DVT PPX, SCD Left, Lovenox held Code Status DNR Discussed Condition With Patient, nursing staff, Dr. Scales
[2018-07-10] MEDS: Albumin Human 25% Inj 100 ML IV.SIG SCH ×3 (19:24→19:45)
[2018-07-10] MEDS: Micafungin Inj 150 MG in Sodium Chlor 0.9% Inj 100 ML IV.SIG SCH (20:26)
[2018-07-10 21:14] LABS: Amorphous Sediment,Urine Rare /hpf; Bacteria,Urine Rare /hpf; Bilirubin,Urine Negative (Negative); Clarity,Urine Turbid (Clear); Color,Urine Amber (Yellw/Straw); Glucose,Urine (UA) Negative (Negative); Hyaline Casts,Urine 5 /lpf (0-3); Leukocyte Esterase,Urine Large (Negative); Mucus,Urine Few /lpf (Occasional); Nitrite,Urine Negative (Negative); Specific Gravity,Urine 1.017 (1.002-1.035)
[2018-07-11] MEDS: Sod Chloride 0.9% Inj 1,000 ML IV.CONT SCH (00:03)
[2018-07-11] MEDS: Hyoscyamine Liq Drops 0.125 MG/ML 15 ML Bottle SL SCH ×4 (04:17→22:23)
[2018-07-11] MEDS: Levothyroxine 150 MCG Tablet J-TUBE SCH (06:19)
[2018-07-11] MEDS: Pantoprazole Inj 40 MG Vial IV.PUSH SCH ×2 (06:19→18:53)
[2018-07-11] MEDS: Lidocaine 5% Patch T-DERMAL SCH (08:15)
[2018-07-11] MEDS: Lactobacillus Acidophilus/L. Spores Tablet J-TUBE SCH ×3 (08:16→18:52)
[2018-07-11] MEDS: Heparin Central Flush 100 UNIT/ML 5 ML Vial IV.FLUSH SCH (08:18)
[2018-07-11] MEDS: Ascorbic Acid 500 MG Tablet J-TUBE SCH ×2 (08:18→20:09)
[2018-07-11] MEDS: Loperamide Liq 2 MG/10 ML UDC J-TUBE SCH ×4 (08:18→20:09)
[2018-07-11] MEDS: buPROPion 75 MG Tablet J-TUBE SCH ×2 (08:19→20:08)
[2018-07-11 08:40] LABS: Calcium 7.7 mg/dL (8.5-10.1); Carbon Dioxide 20.5 meq/L (21.0-32.0); Potassium 4.7 meq/L (3.5-5.1)
[2018-07-11 09:58] LABS: Hematocrit 25.5 % (35.0-46.0); Hemoglobin 8.5 gm/dL (11.6-15.3); Mean Corpuscular HGB Conc 33.1 % (32.0-36.0); Mean Corpuscular Hemoglobin 29.5 pg (27.0-34.0); Mean Corpuscular Volume 88.9 fL (80.0-100.0); Platelet Count 45 th/mm3 (150-450); Red Blood Count 2.87 mil/mm3 (4.00-5.30); Red Cell Distribution Width 14.8 % (11.6-17.2)
--- NOTE | 2018-07-11 12:42 | P.PNNP ---
Subjective Interval history: Patient with lethargy, open eyes, still able to answer questions, she has has respiratory failure, increasing shortness of breath she is getting tired give Albumin and Lasix UOP remained low 350 cc Physical Exam Vital signs: Vital Signs 07/10/18 16:56 07/10/18 20:00 07/11/18 00:18 Temperature 97 F L Pulse Rate 86 Respiratory Rate 20 24 Blood Pressure 105/49 L Pulse Oximetry 92 L 93 L 07/11/18 08:00 07/11/18 09:51 07/11/18 12:08 Temperature 98.6 F Pulse Rate 78 114 H Respiratory Rate 16 24 Blood Pressure 107/49 L 89/44 L Pulse Oximetry 93 L 92 L 92 L Intake & Output 07/10/18 07/11/18 07/11/18 18:59 06:59 18:59 Intake Total 1400 / 1400 4050 / 4050 Output Total 550 / 550 Balance 1400 / 1400 3500 / 3500 Weight 47.8 kg 50.4 kg Intake: IV 1400 / 1400 2600 / 2600 NS Inj 1,000 ML @ 50 mls/hr IV. 1000 / 1000 1000 / 1000 CONT .Q20H ANN Rx#:[id number] Flexbumin 25% Inj 100 ML @ 60 100 / 100 mls/hr IV.SIG Q100M ANN Rx#: [id number] Zyvox 600 mg Premix 300 ML @ 300 / 300 300 / 300 300 mls/hr IV.SIG Q12HR ANN Rx# :[id number] Merrem Inj 500 MG In NS Inj 100 100 / 100 100 / 100 ML @ 200 mls/hr IV.SIG Q12H ANN Rx#:[id number] Mycamine Inj 150 MG In NS Inj 100 / 100 100 ML @ 100 mls/hr IV.SIG Q24H ANN Rx#:[id number] Oral 0 / 0 Tube Feeding 0 / 0 Water Bolus Amount 500 / 500 Other 950 / 950 Output: Stool 0 / 0 Urine/Stool Mix 0 / 0 Emesis 0 / 0 Urine Amount (Catheter) 350 / 350 Indwelling Urethral Catheter 350 / 350 Gastric Drainage 200 / 200 Gastrojejunostomy Tube 200 / 200 Jejunostomy Tube 0 / 0 Other: Other Intake Source Saline Solution Date of Last Bowel Movement 07/09/18 07/09/18 07/10/18 # Bowel Movements 0 # Incontinent Bowel Movements 0 # Em[place] 0 Narrative: GENERAL: mal-nourished, well-developed Frail appearing patient. SKIN: Warm and dry. HEAD: Normocephalic. EYES: No scleral icterus. No injection or drainage. NECK: Supple, tracheostomy CARDIOVASCULAR: Tachycardia. RESPIRATORY: Breath sounds diminished at bases wheezes and crackles GASTROINTESTINAL: Abdomen soft, non-tender, nondistended. G-J tube in place. EXTREMITIES: muscles wasting positive, no edema. NEUROLOGICAL: Awake, alert, and oriented x 3. Non-focal. - Urinary Catheter Management Indwelling Urethral Catheter Cath placed during this visit: yes, but has since been removed by the nurse Reason for continuing: Chronic Urinary Retention Insertion date: 06/26/18 Insertion time: 00:30 Removal date: 06/26/18 Removal time: 00:00 Assessment and Plan - Assessment (1) BETSEY (acute kidney injury) Code(s): N17.9 - Acute kidney failure, unspecified Status: Acute Plan: (1) BETSEY (acute kidney injury) Code(s): N17.9 - Acute kidney failure, unspecified Status: Acute Plan: Continue supportive care. discussed with son, she has been getting Volume/Water/ IVF NS/Albumin today more lethargic and in worsening renal failure, she do not wish to do dialysis, son agreed with her mother wishes, explained patient has sepsis and hypotension likely causing ATN based on clinical scenario I will try Albumin, repeat CXR on clinical grounds she is more short of breath Patient desire no dialysis, d/w staff she is A/O and made herself DNR, attempt Albumin 25 g IV q6, check BNP may use Lasix afterwards Not a candidate for dialysis, as patient refused and it will be very difficult to do dialysis given her failing health, low Blood pressure, respiratory failure , Multiorgan failure [facility] outlook is poor. (2) Pneumonia Code(s): J18.9 - Pneumonia, unspecified organism Status: Acute Plan: Patient is on antibiotics. On droplet precautions. - Plan Very poor prognosis. At risk for multiple complications.
--- NOTE | 2018-07-11 12:44 | P.PN ---
Subjective Interval history: Patient seen lying in bed. Sleeping but wakes. Simply reiterates that she is tired. Painful with any manipulation. Physical Exam Vital signs: Vital Signs 07/10/18 16:56 07/10/18 20:00 07/11/18 00:18 Temperature 97 F L Pulse Rate 86 Respiratory Rate 20 24 Blood Pressure 105/49 L Pulse Oximetry 92 L 93 L 07/11/18 08:00 07/11/18 09:51 07/11/18 12:08 Temperature 98.6 F Pulse Rate 78 114 H Respiratory Rate 16 24 Blood Pressure 107/49 L 89/44 L Pulse Oximetry 93 L 92 L 92 L Intake & Output 07/10/18 07/11/18 07/11/18 18:59 06:59 18:59 Intake Total 1400 / 1400 4050 / 4050 Output Total 550 / 550 Balance 1400 / 1400 3500 / 3500 Weight 47.8 kg 50.4 kg Intake: IV 1400 / 1400 2600 / 2600 NS Inj 1,000 ML @ 50 mls/hr IV. 1000 / 1000 1000 / 1000 CONT .Q20H ANN Rx#:[id number] Flexbumin 25% Inj 100 ML @ 60 100 / 100 mls/hr IV.SIG Q100M ANN Rx#: [id number] Zyvox 600 mg Premix 300 ML @ 300 / 300 300 / 300 300 mls/hr IV.SIG Q12HR ANN Rx# :[id number] Merrem Inj 500 MG In NS Inj 100 100 / 100 100 / 100 ML @ 200 mls/hr IV.SIG Q12H ANN Rx#:[id number] Mycamine Inj 150 MG In NS Inj 100 / 100 100 ML @ 100 mls/hr IV.SIG Q24H ANN Rx#:[id number] Oral 0 / 0 Tube Feeding 0 / 0 Water Bolus Amount 500 / 500 Other 950 / 950 Output: Stool 0 / 0 Urine/Stool Mix 0 / 0 Emesis 0 / 0 Urine Amount (Catheter) 350 / 350 Indwelling Urethral Catheter 350 / 350 Gastric Drainage 200 / 200 Gastrojejunostomy Tube 200 / 200 Jejunostomy Tube 0 / 0 Other: Other Intake Source Saline Solution Date of Last Bowel Movement 07/09/18 07/09/18 07/10/18 # Bowel Movements 0 # Incontinent Bowel Movements 0 # Emeses 0 Narrative: GENERAL: Poorly nourished, Frail appearing patient. SKIN: Warm and dry. HEAD: Normocephalic. EYES: No scleral icterus. No injection or drainage. NECK: Supple, tracheostomy in place. CARDIOVASCULAR: Regular rate and rhythm. RESPIRATORY: Breath sounds diminished at bases and occ crackles. GASTROINTESTINAL: Abdomen soft, non-tender, nondistended. G-J tube in place. Significant drainage noted on dressing of G-tube. : Poor urine output in [place]. Sediment noted. EXTREMITIES: muscles wasting positive, no edema. NEUROLOGICAL: Drowsy - Urinary Catheter Management Indwelling Urethral Catheter Cath placed during this visit: yes, but has since been removed by the nurse Reason for continuing: Chronic Urinary Retention Insertion date: 06/26/18 Insertion time: 00:30 Removal date: 06/26/18 Removal time: 00:00 Results - Labs CBC & Chem 7: 07/11/18 09:39 07/11/18 08:00 Laboratory Results - last 24 hr 07/10/18 07/11/18 07/11/18 18:00 08:00 09:39 WBC 20.0 H RBC 2.87 L Hgb 8.5 L Hct 25.5 L MCV 88.9 MCH 29.5 MCHC 33.1 RDW 14.8 Plt Count 45 L MPV 11.0 Sodium 136 Potassium 4.7 Chloride 103 Carbon Dioxide 20.5 L Anion Gap 13 BUN 99 H Creatinine 4.80 H Estimated GFR 9 L Random Glucose 90 Calcium 7.7 L Urine Color [place] Urine Clarity Turbid H Urine pH 5.0 Ur Specific [place] 1.017 Urine Protein 100 H Urine Glucose (UA) Negative Urine Ketones Negative Urine Occult Blood Negative Urine Nitrate Negative Urine Bilirubin Negative Urine Urobilinogen Less than 2 Ur Leukocyte Esterase Large H Urine RBC 45 H Urine WBC Urine WBC Clumps Moderate H Amorphous Sediment Rare H Urine Bacteria Rare H Hyaline Casts 5 Urine Mucus Few H Urine Yeast Moderate H Ur Yeast w Hyphae Few H Micro UA Comment Cath-culture ind Ur Microscopic Review Not Reportable Urine Culture Comments Cath-cult indicated Assessment and Plan - Assessment (1) Respiratory failure Code(s): J96.90 - Respiratory failure, unspecified, unspecified whether with hypoxia or hypercapnia Status: Acute (2) Pneumonia Code(s): J18.9 - Pneumonia, unspecified organism Status: Acute (3) Status post trachelectomy Code(s): Z90.710 - Acquired absence of both cervix and uterus Status: Acute (4) Carcinoma of supraglottis Code(s): C32.1 - Malignant neoplasm of supraglottis Status: Acute (5) COPD (chronic obstructive pulmonary disease) Code(s): J44.9 - Chronic obstructive pulmonary disease, unspecified Status: Chronic (6) Dysphagia Code(s): R13.10 - Dysphagia, unspecified Status: Chronic (7) Lung nodule, solitary Code(s): R91.1 - Solitary pulmonary nodule Status: Chronic (8) Lung nodules Code(s): R91.8 - Other nonspecific abnormal finding of lung field Status: Chronic - Plan 73-year-old female with 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 The rapid response was called and the patient was transferred to ICU where she was placed on 60% oxygenation via trach collar. [facility] reconsulted 05/23 due to hypotension. Currently managed for recurrent respiratory infections with MDRO managed by ID. CT chest does demonstrate a moderate left pleural effusion with left lower lobe atelectasis s/p thoracocentesis. Patient was again sent over to the ICU on 05/29 for acute pulmonary edema with further fever spikes. Patient underwent diuresis and was made a no code, was eventually stabilized and transition back to hospitalist care. 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 Nephro consulted -patient refusing dialysis S/P Fall -Fell 07/04/18 as per nursing -CT with 6 mm lesion recommended MRI. MRI ordered. -No neurological changes noted; degenerative finding on x-rays only -Neuro checks. Fall precaution -Son spoke with nurse does not want MRI if Benzo or other sedatives will be given to patient. -MRI negative GJ tube with leakage Soft tissue mass thru PEG site -s/p cauterization by Dr. Bautista. GJ tube not in proper position causing leaking; monitor bumper. -s/p IR GJ tube placement 06/30. Leakage around PEG site improved with escalation of PPI. -Tolerating tube feeds at 40cc/hr, titrate up slowly and monitor for recurrence of leakage. Goal 55ml as per renderer -monitor skin around PEG site,slight erythema noted, continue with present tx. -Keep G-tube to gravity drainage per Dr. Aly. Recent coffee-ground drainage likely related to suction. Pancytopenia d/t myelodysplastic syndrome Per Heme/Onc: pancytopenia is due to MDS. She is not a candidate for chemo. -Recommendation for pancytopenia is transfusion of PRBC (if Hg <7) and plat( if plat <15) support. -Lovenox held due to thrombocytopenia. -Anticoagulation recommended with platelet count consistently greater than 75 ,000; otherwise hold. History of DVT, Right lower extremity -Previously was on Lovenox but held due to thrombocytopenia as above. MDRO PSAE persistent colonization both sputum and urine Leukocytosis w/ repeat UTI PNA, MDRO PSAE, Steno malt 05/29 History of squamous cell carcinoma of the larynx now status post tracheostomy due to recurrent aspiration Spiculated right upper lobe pulmonary nodule, multiple R pulmonary nodules -Dr. Pineda has discussed risk/ benefits of biopsy with patient and her son on 05/05 and at that time they opted to defer biopsy. -Pseudomonas MDR, sensitive to only tobramycin. 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 -Levaquin completed prior -Repeat urine culture lolly tropicalis, VRE EColi MDRO <50K -07/09 -WBCs increased to 24+. ID reconsulted. Repeat cultures ordered Right hip and right knee pain-patient complaining of right hip pain and knee pain; now generalized pain No history of trauma to knee, xray unremarkable. -Possibly due to clot burden??. Patient off Lovenox since 05/30. -Continue pain control with [place] and Tylenol. -Lyrica BID. Depression/anxiety -Continue Lexapro and Wellbutrin, Continue Klonopin through the G-tube every 8 hours, Temazepam as needed for insomnia Diarrhea -Likely secondary to antibiotics, improved. C. difficile studies were negative on 05/25, Continue Lomotil. DVT PPX, SCD Left, Lovenox held Code Status DNR Discussed Condition With Patient, nursing staff, Dr. Scales, Palliative
--- NOTE | 2018-07-11 12:49 | P.PNGI ---
Subjective Interval history: Pt more lethargic. No BM since yesterday. Discussed with her nurse at bedside. Creat increasing with decreasing urine output. Tube feedings still leaking some around G tube site but less and no longer bloody. J tube feedings on hold due to poor tolerance with increased feedings coming back out G tube port. Physical Exam Vital signs: Vital Signs 07/10/18 16:56 07/10/18 20:00 07/11/18 00:18 Temperature 97 F L Pulse Rate 86 Respiratory Rate 20 24 Blood Pressure 105/49 L Pulse Oximetry 92 L 93 L 07/11/18 08:00 07/11/18 09:51 07/11/18 12:08 Temperature 98.6 F Pulse Rate 78 114 H Respiratory Rate 16 24 Blood Pressure 107/49 L 89/44 L Pulse Oximetry 93 L 92 L 92 L Intake & Output 07/10/18 07/11/18 07/11/18 18:59 06:59 18:59 Intake Total 1400 / 1400 4050 / 4050 Output Total 550 / 550 Balance 1400 / 1400 3500 / 3500 Weight 47.8 kg 50.4 kg Intake: IV 1400 / 1400 2600 / 2600 NS Inj 1,000 ML @ 50 mls/hr IV. 1000 / 1000 1000 / 1000 CONT .Q20H ANN Rx#:[id number] Flexbumin 25% Inj 100 ML @ 60 100 / 100 mls/hr IV.SIG Q100M ANN Rx#: [id number] Zyvox 600 mg Premix 300 ML @ 300 / 300 300 / 300 300 mls/hr IV.SIG Q12HR ANN Rx# :[id number] Merrem Inj 500 MG In NS Inj 100 100 / 100 100 / 100 ML @ 200 mls/hr IV.SIG Q12H ANN Rx#:[id number] Mycamine Inj 150 MG In NS Inj 100 / 100 100 ML @ 100 mls/hr IV.SIG Q24H ANN Rx#:[id number] Oral 0 / 0 Tube Feeding 0 / 0 Water Bolus Amount 500 / 500 Other 950 / 950 Output: Stool 0 / 0 Urine/Stool Mix 0 / 0 Emesis 0 / 0 Urine Amount (Catheter) 350 / 350 Indwelling Urethral Catheter 350 / 350 Gastric Drainage 200 / 200 Gastrojejunostomy Tube 200 / 200 Jejunostomy Tube 0 / 0 Other: Other Intake Source Saline Solution Date of Last Bowel Movement 07/09/18 07/09/18 07/10/18 # Bowel Movements 0 # Incontinent Bowel Movements 0 # Emeses 0 Narrative: Lethargic and poorly responsive. BP lower. abd nondistended and no apparent tenderness. Tegaderm dressing applied around G tube site and skin erythema looks a little better. No bleeding noted. - Urinary Catheter Management Indwelling Urethral Catheter Cath placed during this visit: yes, but has since been removed by the nurse Reason for continuing: Chronic Urinary Retention Insertion date: 06/26/18 Insertion time: 00:30 Removal date: 06/26/18 Removal time: 00:00 Results - Labs CBC & Chem 7: 07/11/18 09:39 07/11/18 08:00 Laboratory Results - last 24 hr 07/10/18 07/11/18 07/11/18 18:00 08:00 09:39 WBC 20.0 H RBC 2.87 L Hgb 8.5 L Hct 25.5 L MCV 88.9 MCH 29.5 MCHC 33.1 RDW 14.8 Plt Count 45 L MPV 11.0 Sodium 136 Potassium 4.7 Chloride 103 Carbon Dioxide 20.5 L Anion Gap 13 BUN 99 H Creatinine 4.80 H Estimated GFR 9 L Random Glucose 90 Calcium 7.7 L Urine Color Sandra Urine Clarity Turbid H Urine pH 5.0 Ur Specific [place] 1.017 Urine Protein 100 H Urine Glucose (UA) Negative Urine Ketones Negative Urine Occult Blood Negative Urine Nitrate Negative Urine Bilirubin Negative Urine Urobilinogen Less than 2 Ur Leukocyte Esterase Large H Urine RBC 45 H Urine WBC Urine WBC Clumps Moderate H Amorphous Sediment Rare H Urine Bacteria Rare H Hyaline Casts 5 Urine Mucus Few H Urine Yeast Moderate H Ur Yeast w Hyphae Few H Micro UA Comment Cath-culture ind Ur Microscopic Review Not Reportable Urine Culture Comments Cath-cult indicated Assessment and Plan - Plan ImP: 1. Feeding difficulties 2. Worsening renal failure 3. Hypotension-suspected sepsis. Nurse states pt and family leaning toward Hospice. 4. Anemia-H&H did drop some but also received a lot of fluids. No sign active bleeding now. Rec: 1. Continue supportive care. CT scan from 07/09 did not show any bowel obstruction and G/J tube was in correct position. Prognosis appears poor.
[2018-07-11] MEDS: Morphine Sulfate Oral Liq 10 MG/0.5 ML Syringe SL PRN (13:12)
--- NOTE | 2018-07-11 13:24 | P.PNPAL ---
Reason for Visit Reason for visit: a. To assist with evaluation and management of symptoms including: dyspnea, pain, debility. b. To assist medical decision maker(s) with: better understanding of current medical conditions; weighing benefits/burdens of medical treatment options; making medical treatment decisions. Subjective Subjective/Interval History: Call from nurseKanika to report change in clinical status. Patient has worsening renal function, not tolerating tube feeding, continued drainage from GJ tube site, increasing oxygen needs and general decline. Patient seen and examined in room. Discussed with nurses and [facility] team and (nephrology). Nurse indicates continued drainage from GJ tube site copious amounts when she coughs. Dressing in place. Tube feedings on hold. G tube to suction. BP 89/44. Creatinine increased to 4.80. GFR 9, BUN 99. UOP 350cc overnight after Lasix 80mg and Albumin. Nephrology was consulted, patient refused hemodialysis and was deemed not to be a good candidate due to hypotension, overall poor functional and nutritional decline. Patient is asleep upon my arrival. She is arousable, answers questions. Nods yes to pain "all over." She nods yes to shortness of breath. Asked if she would like me to provide medical update she nods yes. Asked if she wanted PM valve in so she can speak, she nods no. Reviewed worsening renal function, she nods yes when I asked her if she refused hemodialysis. She nods yes when asked if she wants us to focus on her comfort. She then falls off to sleep. Family/Friend Interactions: Spoke with sonQuinton via telephone. He is able to tell me clearly the circumstances of her decline. He requests to speak with the customer support specialist, I asked Dr. Blanco to call son, he agrees. Advised patient is tired and verbalizing desire for comfort, she refused blood cultures and dialysis. Quinton tells me he is planning to visit tonight or tomorrow. He is considering hospice services, but "is not there just yet." He will call me if he elects comfort measures with hospice support. Offered support. Number provided. Advance Directives Living Will: Copy in medical record Health Care Surrogate: Copy in medical record Advance Directives Date on File: 02/08/18 Health Care Surrogate Name and Number: Alireza Whitten, janet/medical power of energy attorney: [phone] Documented care wishes:: Patient directs that her healthcare providers and others involved in her care provide, withhold or withdraw treatment in accordance with her wish to not prolong life if she has an incurable and irreversible condition that will result in her within a relatively short time or if she becomes unconscious and to a reasonable degree of medical certainty will not regain consciousness were the likely results and burdens of treatment would outweigh the expected benefits. She requests also that treatment for alleviation of pain or discomfort be provided at all times, even if it hastens her . Additionally she indicates that in the event of severe and irreversible or terminal illness that she wishes for the priority on keeping her comfortable and no aggressive therapy or intervention be done unless expressly approved by Alireza Whitten her son. She does not wish to donate any organs after her . Significant change in goals:: NO CODE. She does not want to go back on vent, she does not want Blood cultures or hemodialysis. Son is considering options including comfort measures with hospice support. He is not yet ready to make this decision, will call. Objective Vital Signs: Vital Signs 07/10/18 16:56 07/10/18 20:00 07/11/18 00:18 Temperature 97 F L Pulse Rate 86 Respiratory Rate 20 24 Blood Pressure 105/49 L Pulse Oximetry 92 L 93 L 07/11/18 08:00 07/11/18 09:51 07/11/18 12:08 Temperature 98.6 F Pulse Rate 78 114 H Respiratory Rate 16 24 Blood Pressure 107/49 L 89/44 L Pulse Oximetry 93 L 92 L 92 L Intake & Output 07/10/18 07/11/18 07/11/18 18:59 06:59 18:59 Intake Total 1400 / 1400 4050 / 4050 Output Total 550 / 550 Balance 1400 / 1400 3500 / 3500 Weight 47.8 kg 50.4 kg Intake: IV 1400 / 1400 2600 / 2600 NS Inj 1,000 ML @ 50 mls/hr IV. 1000 / 1000 1000 / 1000 CONT .Q20H ANN Rx#:[id number] Flexbumin 25% Inj 100 ML @ 60 100 / 100 mls/hr IV.SIG Q100M ANN Rx#: [id number] Zyvox 600 mg Premix 300 ML @ 300 / 300 300 / 300 300 mls/hr IV.SIG Q12HR ANN Rx# :[id number] Merrem Inj 500 MG In NS Inj 100 100 / 100 100 / 100 ML @ 200 mls/hr IV.SIG Q12H ANN Rx#:[id number] Mycamine Inj 150 MG In NS Inj 100 / 100 100 ML @ 100 mls/hr IV.SIG Q24H ANN Rx#:[id number] Oral 0 / 0 Tube Feeding 0 / 0 Water Bolus Amount 500 / 500 Other 950 / 950 Output: Stool 0 / 0 Urine/Stool Mix 0 / 0 Emesis 0 / 0 Urine Amount (Catheter) 350 / 350 Indwelling Urethral Catheter 350 / 350 Gastric Drainage 200 / 200 Gastrojejunostomy Tube 200 / 200 Jejunostomy Tube 0 / 0 Other: Other Intake Source Saline Solution Date of Last Bowel Movement 07/09/18 07/09/18 07/10/18 # Bowel Movements 0 # Incontinent Bowel Movements 0 # Emeses 0 Physical Exam: CONSTITUTIONAL/GENERAL: Chronically ill looking patient who appears older than stated age with a tracheostomy TUBES/LINES: oxygen via trach collar to trach, PICC line, GJ tube SKIN: Pale. Afebrile. No jaundice, rashes, or lesions. Skin cool to touch. EYES: eyes closed. CARDIOVASCULAR: S1, S2 normal. RESPIRATORY/CHEST: diminished lung sounds bilaterally. No wheezing, no rhonchi. GASTROINTESTINAL: Abdomen soft, non-tender, nondistended. Guarding. GJ tube site with greenish yellow drainage noted. MUSCULOSKELETAL: Extremities without clubbing, cyanosis. Muscle wasting noted. NEUROLOGICAL: Awakens easily, answers some questions. Moves all 4 extremities. PSYCHIATRIC: Calm, tired. Diagnostic Tests Laboratory: Laboratory Results - last 72 hr 07/09/18 07/10/18 07/10/18 17:40 08:23 08:40 WBC 24.4 H 22.6 H RBC 4.01 3.25 L Hgb 11.6 9.6 L D Hct 35.1 29.0 L MCV 87.5 89.0 MCH 28.9 29.5 MCHC 33.1 33.1 RDW 15.0 15.0 Plt Count 60 L 47 L MPV 11.9 H 11.1 H Prelim Diff (Auto) Manual diff required Manual diff required WBC Differential Manual diff final Manual diff final Seg Neuts % (Manual) 35 32 Band Neuts % (Manual) 5 20 H Lymphocytes % (Manual) 4 L 4 L Monocytes % (Manual) 3 5 Eosinophils % (Manual) 4 Metamyelocytes % (Man) 14 H 7 H Myelocytes % (Man) 18 H 24 H Promyelocytes % (Man) 1 H Blast Cells % (Manual) 16 H 8 H Abs Neuts (Manual) 17.8 H 18.8 H Differential Comment . . Toxic Vacuolation Present H Platelet Estimate Low L Low L Platelet Morphology Enlarged H Enlarged H Ovalocytes 1+ H Sodium 138 Potassium 4.5 Chloride 102 Carbon Dioxide 20.4 L Anion Gap 16 H BUN 98 H Creatinine 4.39 H Estimated GFR 10 L Random Glucose 137 H Calcium 7.6 L Urine Color Urine Clarity Urine pH Ur Specific [place] Urine Protein Urine Glucose (UA) Urine Ketones Urine Occult Blood Urine Nitrate Urine Bilirubin Urine Urobilinogen Ur Leukocyte Esterase Urine RBC Urine WBC Urine WBC Clumps Amorphous Sediment Urine Bacteria Hyaline Casts Urine Mucus Urine Yeast Ur Yeast w Hyphae Micro UA Comment Ur Microscopic Review Urine Culture Comments 07/10/18 07/11/18 07/11/18 18:00 08:00 09:39 WBC 20.0 H RBC 2.87 L Hgb 8.5 L Hct 25.5 L MCV 88.9 MCH 29.5 MCHC 33.1 RDW 14.8 Plt Count 45 L MPV 11.0 Prelim Diff (Auto) WBC Differential Seg Neuts % (Manual) Band Neuts % (Manual) Lymphocytes % (Manual) Monocytes % (Manual) Eosinophils % (Manual) Metamyelocytes % (Man) Myelocytes % (Man) Promyelocytes % (Man) Blast Cells % (Manual) Abs Neuts (Manual) Differential Comment Toxic Vacuolation Platelet Estimate Platelet Morphology Ovalocytes Sodium 136 Potassium 4.7 Chloride 103 Carbon Dioxide 20.5 L Anion Gap 13 BUN 99 H Creatinine 4.80 H Estimated GFR 9 L Random Glucose 90 Calcium 7.7 L Urine Color Sandra Urine Clarity Turbid H Urine pH 5.0 Ur Specific [place] 1.017 Urine Protein 100 H Urine Glucose (UA) Negative Urine Ketones Negative Urine Occult Blood Negative Urine Nitrate Negative Urine Bilirubin Negative Urine Urobilinogen Less than 2 Ur Leukocyte Esterase Large H Urine RBC 45 H Urine WBC Urine WBC Clumps Moderate H Amorphous Sediment Rare H Urine Bacteria Rare H Hyaline Casts 5 Urine Mucus Few H Urine Yeast Moderate H Ur Yeast w Hyphae Few H Micro UA Comment Cath-culture ind Ur Microscopic Review Not Reportable Urine Culture Comments Cath-cult indicated Result Diagrams: 11/23/18 09:39 07/11/18 08:00 Imaging: Abdomen/Bladder Ultrasound 05/06/18 00:00 CONCLUSION: 1. Increased renal echogenicity characteristic of medical renal disease. Small cyst right kidney. Dependent debris in the bladder. Tube Check 05/20/18 00:00 CONCLUSION: 1. Uncomplicated tube injection as above. The gastrojejunostomy tube is in good position. If there is concern for duodenal stricture resulting in a functional obstruction consideration could be made to the administration of barium either orally or through the gastric lumen of the tube to assess for any obstruction. Thin iodinated contrast would be limited in trying to assess this. Upper GI Series 05/21/18 00:00 CONCLUSION: No evidence of gastric outlet or duodenal obstruction. Chest CT 05/22/18 16:12 CONCLUSION: 1. Moderate left pleural effusion with atelectasis of the left lower lobe. 2. Mild right base atelectasis, improved compared to prior CT. 3. Right upper lobe pulmonary nodules are stable but the larger one remains concerning for primary bronchogenic carcinoma. Chest Ultrasound 05/23/18 00:00 CONCLUSION: 1. Lastly 360 cc of pleural effusion on the left. This does not appear loculated or complex. Site was marked Thoracentesis Ultrasound 05/23/18 00:00 CONCLUSION: Uncomplicated ultrasound-guided left chest thoracentesis as above. Extremity Arterial Study 05/24/18 00:00 CONCLUSION: 1. Severe reduction of the ABIs bilaterally. Chest CTA 05/26/18 00:00 CONCLUSION: 1. No evidence for pulmonary embolism. 2. Bibasilar consolidation. 3. Prominent nodule in the right upper lobe again seen measuring 13 mm concerning for malignancy. 4. Patchy opacities in the lingula and left lower lobe likely infectious. Hip X-Ray 06/26/18 00:00 CONCLUSION: Limited study. No definite bony fracture or joint dislocation. Knee X-Ray 06/26/18 00:00 CONCLUSION: Unremarkable exam for patient's age. Abdomen X-Ray 06/27/18 18:35 CONCLUSION: Within normal limits. No evidence of gastrojejunostomy tube leak. Tube Change 06/30/18 00:00 CONCLUSION: Uncomplicated gastrojejunostomy tube exchange as above. Venous Doppler Study 07/04/18 00:00 CONCLUSION: 1. Nonocclusive thrombus in the right common femoral vein and greater saphenous vein probably recanalized old clot for the most part. 2. Negative for thrombus in the left Head CT 07/04/18 18:56 CONCLUSION: 1. Solitary 6 mm hypodense round lesion in the right basal ganglia is nonspecific on noncontrast CT. Patient has history of head and neck tumor. Differential considerations include lacunar infarct and a metastatic lesion. May consider further evaluation with MRI with and without contrast. . Cervical Spine X-Ray 07/04/18 18:57 CONCLUSION: Degenerative findings of the cervical spine. No fracture identified. C6 and C7 not well visualized on lateral view. Lumbar Spine X-Ray 07/04/18 18:59 CONCLUSION: Degenerative findings of the lumbar spine. No evidence of fracture. Thoracic Spine X-Ray 07/04/18 18:59 CONCLUSION: Degenerative findings of the thoracic spine. No evidence of fracture. Head MRI 07/08/18 07:01 CONCLUSION: 1. No acute intracranial abnormality. 2. Atrophy and chronic small vessel ischemic change. 3. Chronic lacunar infarction involving the right basal ganglia. Abdomen/Pelvis CT 07/09/18 00:00 CONCLUSION: 1. No obstruction, inflammatory changes or other acute abnormality seen within the abdomen or pelvis. 2. Hepatomegaly not significantly changed. 3. Scattered small nonobstructing stones of both kidneys and a benign appearing right renal cyst. 4. Possible right middle lobe pneumonia. The parenchymal opacities otherwise of the visualized lung bases are typical of atelectasis. Tiny bilateral effusions are present, smaller than before. 5. Gastrojejunostomy tube appears appropriately positioned. 6. Small hiatal hernia. 7. Small adrenal adenomas unchanged. Chest X-Ray 07/09/18 00:00 CONCLUSION: Interval improvement in pulmonary edema with mild residual. 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 Patient now has a tracheostomy. (4) Debility 0-10 Scale: Unable to quantify Pertinent Non-Medical Issues: Psychosocial: Patient is originally from [place]. She has 4 brothers and 2 sisters. She moved to [place] approximately 40 years ago. Patient was for 18 years and then . She and her had 3 sons (Alireza, Sagar and Cameron). Alireza is a physicians physician assistant surgery and lives in [place]. Adalid and Cameron live in [place]. Per patient, Cameron was born with "autism" and live in a [facility] Spiritual: [employer] Legal: Pt's son Alireza is medical POA. Ethical issues impacting care: none Important Contacts: medical POA son Alireza Whitten , cell [phone] Prognosis: This is a 73 yo lady with hx laryngeal ca diagnosed 2015 s/p chemo and radiation who [facility]. She initially presented in January with weakness, dysphagia, weight loss, anemia. Chest CT showing enlarging spiculated nodule, 2 additional right lung nodules. She has since had tracheostomy, GJ, and numerous complications, including PNA, need for GJ replacement. Patient now with renal failure, appears to be dying. Hospice appropriate if goals are comfort oriented. Code Status: No Code DNR (DNR/DNI does NOT want to go back on mech vent.) Plan: * LEGAL DECISION MAKER - Pt is capacitated to make medical decisions. Should she become incapacitated, she has designated her son Alireza Whitten as medical POA. * NO CODE - DNR/DNI does NOT want to go back on mech vent. * GOALS - NO CODE. She does not want to go back on vent, she does not want Blood cultures or hemodialysis. Son is considering options including comfort measures with hospice support. He is not yet ready to make this decision, will call. * Spoke with Dr. Bella JEFF, nurses, Anisa and Kanika. * Palliative care will continue to follow during hospital course as condition evolves, to assist patient/decision-maker with understanding of medical conditions, weighing benefits/burdens of treatment options, for clarification of goals of treatment. Additionally will assist with any symptoms of palliative concern SYMPTOMS - * pain - risk for pain. multifactorial, coccygeal ulcer, mult lines and catheters, tubes. Has PRN [place] and PRN Roxanol 5mg q4h for breakthrough pain. Sparing need. Will continue to monitor need and effect. Endorsing pain to GJ tube site and right leg, hip and back. Note: please call son prior to making any medication adjustments. Will schedule [place] 5/325 mg from every 6 hours ATC. * dyspnea - hx laryngeal ca, has trach, now with PNA. BCX pending. denies feeling SOB today. On oxygen via t-piece, PM valve as needed. Duonebs as needed. has PRN meds for anxiety. Denies anxiety during my visit today. * depression/anxiety - multifactorial. pt mildly anxious, on Lexapro, Wellbutrin. Has clonazepam 0.5 mg q8h PRN. Has PRN temazepam for insomnia. * debility- multifactorial. 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 respiratory status unlikely to allow for aggressive therapy and rehab. weak. PT following. no further recs. Attestation Attestation: To help prompt me to consider important information that might be impacting today's encounter and assessment, information from prior notes written by myself or my colleagues may have been "brought forward" into today's note. My signature on this note, however, is an attestation that I personally performed the exam, history, and/or decision-making noted today, and, unless otherwise indicated, the interactions with patient, family, and staff as well as the review of records all occurred today. I also attest that the listed assessment and stated plan reflect my best clinical judgment today based on the combination of historical information, prior notes, and today's exam/ interactions. When time spent is documented, it refers only to time spent today by the signer, or if indicated, combined time spent today by collaborating physician/nurse practitioner.
--- NOTE | 2018-07-11 14:07 | P.DIET ---
Nutritional Evaluation Type of nutrition evaluation: follow-up Nutrition consult regarding: Tube Feeding Subjective Barriers to Nutrition: Swallowing problem Subjective Comments: Transferred from [place] with hypoxemic respiratory failure. Has trach/PEG. Objective - Diagnosis Respiratory Failure - Objective % IBW: 99 (IBW = 120#) Body Weight Used for Calculations: Actual (54.1 kg) Energy Needs - Lower Range (kCal/kg): 28 Energy Needs - Upper Range (kCal/kg): 32 Lower Limit kCal/kg (kCals): 1,515 Upper Limit kCal/kg (kCals): 1,731 Lower Limit Protein Factor (Grams per Kg): 1.2 Upper Limit Protein Factor (Grams per Kg): 1.5 Lower Protein Needs (Protein): 65 Upper Protein Needs (Protein): 81 Dietitian Reviewed in Medical Record: Curent medications, Intake & Output, Labs , Medical history, Tube feeding Diet Order: TF'ing ONLY Objective Comments: Meds include: Vit C, levsin, lactinex, synthroid, reglan, wellbutrin, lexapro Assessment Assessment: UOP has decreased, Cr. elevated and continues to increase 4.80. Neprology noted , Not a candidate for dialysis, as patient refused and it will be very difficult to do dialysis given her failing health, low Blood pressure, respiratory failure, multiorgan failure. TF on hold due to not tolerating, G- tube to suction. Palliative care noted per pt she wanted to focus on comfort care per a "yes" head nod. Palliative also noted, son is considering hospice services, but "is not there just yet." He will call me if he elects comfort measures with hospice support. Monitor NPO status and decision on further treatment. Recommendations: Monitor NPO status and decision on further treatment. Dietitian to Monitor: Lab values, Renal labs, Intake & Output, Tube feeding tolerance, Weight change, Medical course
[2018-07-11] MEDS: Albumin Human 25% Inj 50 ML IV.SIG SCH ×2 (14:44→18:50)
--- NOTE | 2018-07-11 15:18 | P.PNID ---
Subjective Remarks: Notes reviewed D/W RN Sana U low Palliative medicine evaluation Has DNR status Per RN, patient has voiced out wishes that she does not want HD, and wants comfort measures She has trach collar Lethargic WBC elevated Has MDR in different C/S Antibiotics: Zyvox Merem Micafungin Past Medical History: lung ca Allergies/Adverse Reactions: Allergies epinephrine Allergy (Severe, Verified 02/21/18 08:40) TACHYCARDIA penicillin G Allergy (Severe, Verified 02/21/18 08:40) Hives peanut Allergy (Intermediate, Verified 02/21/18 08:40) ANAPHYLAXIS legumes Allergy (Unknown, Verified 03/06/18 21:48) Anaphylaxis UNKNOWN soy Allergy (Verified 03/06/18 21:45) Rash UNKNOWN Objective Vital Signs 07/10/18 16:56 07/10/18 20:00 07/11/18 00:18 Temperature 97 F L Pulse Rate 86 Respiratory Rate 20 24 Blood Pressure 105/49 L Pulse Oximetry 92 L 93 L 07/11/18 08:00 07/11/18 09:51 07/11/18 12:08 Temperature 98.6 F Pulse Rate 78 114 H Respiratory Rate 16 24 Blood Pressure 107/49 L 89/44 L Pulse Oximetry 93 L 92 L 92 L Intake & Output 07/10/18 07/11/18 07/11/18 18:59 06:59 18:59 Intake Total 1400 / 1400 4050 / 4050 Output Total 550 / 550 Balance 1400 / 1400 3500 / 3500 Weight 47.8 kg 50.4 kg Intake: IV 1400 / 1400 2600 / 2600 NS Inj 1,000 ML @ 50 mls/hr IV. 1000 / 1000 1000 / 1000 CONT .Q20H ANN Rx#:[id number] Flexbumin 25% Inj 100 ML @ 60 100 / 100 mls/hr IV.SIG Q100M ANN Rx#: [id number] Zyvox 600 mg Premix 300 ML @ 300 / 300 300 / 300 300 mls/hr IV.SIG Q12HR ANN Rx# :[id number] Merrem Inj 500 MG In NS Inj 100 100 / 100 100 / 100 ML @ 200 mls/hr IV.SIG Q12H ANN Rx#:[id number] Mycamine Inj 150 MG In NS Inj 100 / 100 100 ML @ 100 mls/hr IV.SIG Q24H ANN Rx#:[id number] Oral 0 / 0 Tube Feeding 0 / 0 Water Bolus Amount 500 / 500 Other 950 / 950 Output: Stool 0 / 0 Urine/Stool Mix 0 / 0 Emesis 0 / 0 Urine Amount (Catheter) 350 / 350 Indwelling Urethral Catheter 350 / 350 Gastric Drainage 200 / 200 Gastrojejunostomy Tube 200 / 200 Jejunostomy Tube 0 / 0 Other: Other Intake Source Saline Solution Date of Last Bowel Movement 07/09/18 07/09/18 07/10/18 # Bowel Movements 0 # Incontinent Bowel Movements 0 # Emeses 0 07/10/18 18:00 Catheterized Urine Urine Culture - Preliminary Immature growth - reincubate Lab - Hematology Results 07/09/18 07/10/18 07/11/18 17:40 08:40 09:39 WBC 24.4 H 22.6 H 20.0 H RBC 4.01 3.25 L 2.87 L Hgb 11.6 9.6 L D 8.5 L Hct 35.1 29.0 L 25.5 L MCV 87.5 89.0 88.9 MCH 28.9 29.5 29.5 MCHC 33.1 33.1 33.1 RDW 15.0 15.0 14.8 Plt Count 60 L 47 L 45 L MPV 11.9 H 11.1 H 11.0 Prelim Diff (Auto) Manual diff required Manual diff required WBC Differential Manual diff final Manual diff final Seg Neuts % (Manual) 35 32 Band Neuts % (Manual) 5 20 H Lymphocytes % (Manual) 4 L 4 L Monocytes % (Manual) 3 5 Eosinophils % (Manual) 4 Metamyelocytes % (Man) 14 H 7 H Myelocytes % (Man) 18 H 24 H Promyelocytes % (Man) 1 H Blast Cells % (Manual) 16 H 8 H Abs Neuts (Manual) 17.8 H 18.8 H Differential Comment . . Toxic Vacuolation Present H Platelet Estimate Low L Low L Platelet Morphology Enlarged H Enlarged H Ovalocytes 1+ H Lab - Chemistry Results 07/10/18 07/11/18 07/11/18 08:23 08:00 09:39 Sodium 138 136 Potassium 4.5 4.7 Chloride 102 103 Carbon Dioxide 20.4 L 20.5 L Anion Gap 16 H 13 BUN 98 H 99 H Creatinine 4.39 H 4.80 H Estimated GFR 10 L 9 L Random Glucose 137 H 90 Calcium 7.6 L 7.7 L B-Natriuretic Peptide 543 H Imaging: ITS Impressions Abdomen/Bladder Ultrasound 05/06/18 00:00 CONCLUSION: 1. Increased renal echogenicity characteristic of medical renal disease. Small cyst right kidney. Dependent debris in the bladder. Tube Check 05/20/18 00:00 CONCLUSION: 1. Uncomplicated tube injection as above. The gastrojejunostomy tube is in good position. If there is concern for duodenal stricture resulting in a functional obstruction consideration could be made to the administration of barium either orally or through the gastric lumen of the tube to assess for any obstruction. Thin iodinated contrast would be limited in trying to assess this. Upper GI Series 05/21/18 00:00 CONCLUSION: No evidence of gastric outlet or duodenal obstruction. Chest CT 05/22/18 16:12 CONCLUSION: 1. Moderate left pleural effusion with atelectasis of the left lower lobe. 2. Mild right base atelectasis, improved compared to prior CT. 3. Right upper lobe pulmonary nodules are stable but the larger one remains concerning for primary bronchogenic carcinoma. Chest Ultrasound 05/23/18 00:00 CONCLUSION: 1. Lastly 360 cc of pleural effusion on the left. This does not appear loculated or complex. Site was marked Thoracentesis Ultrasound 05/23/18 00:00 CONCLUSION: Uncomplicated ultrasound-guided left chest thoracentesis as above. Extremity Arterial Study 05/24/18 00:00 CONCLUSION: 1. Severe reduction of the ABIs bilaterally. Chest CTA 05/26/18 00:00 CONCLUSION: 1. No evidence for pulmonary embolism. 2. Bibasilar consolidation. 3. Prominent nodule in the right upper lobe again seen measuring 13 mm concerning for malignancy. 4. Patchy opacities in the lingula and left lower lobe likely infectious. Hip X-Ray 06/26/18 00:00 CONCLUSION: Limited study. No definite bony fracture or joint dislocation. Knee X-Ray 06/26/18 00:00 CONCLUSION: Unremarkable exam for patient's age. Abdomen X-Ray 06/27/18 18:35 CONCLUSION: Within normal limits. No evidence of gastrojejunostomy tube leak. Tube Change 06/30/18 00:00 CONCLUSION: Uncomplicated gastrojejunostomy tube exchange as above. Venous Doppler Study 07/04/18 00:00 CONCLUSION: 1. Nonocclusive thrombus in the right common femoral vein and greater saphenous vein probably recanalized old clot for the most part. 2. Negative for thrombus in the left Head CT 07/04/18 18:56 CONCLUSION: 1. Solitary 6 mm hypodense round lesion in the right basal ganglia is nonspecific on noncontrast CT. Patient has history of head and neck tumor. Differential considerations include lacunar infarct and a metastatic lesion. May consider further evaluation with MRI with and without contrast. . Cervical Spine X-Ray 07/04/18 18:57 CONCLUSION: Degenerative findings of the cervical spine. No fracture identified. C6 and C7 not well visualized on lateral view. Lumbar Spine X-Ray 07/04/18 18:59 CONCLUSION: Degenerative findings of the lumbar spine. No evidence of fracture. Thoracic Spine X-Ray 07/04/18 18:59 CONCLUSION: Degenerative findings of the thoracic spine. No evidence of fracture. Head MRI 07/08/18 07:01 CONCLUSION: 1. No acute intracranial abnormality. 2. Atrophy and chronic small vessel ischemic change. 3. Chronic lacunar infarction involving the right basal ganglia. Abdomen/Pelvis CT 07/09/18 00:00 CONCLUSION: 1. No obstruction, inflammatory changes or other acute abnormality seen within the abdomen or pelvis. 2. Hepatomegaly not significantly changed. 3. Scattered small nonobstructing stones of both kidneys and a benign appearing right renal cyst. 4. Possible right middle lobe pneumonia. The parenchymal opacities otherwise of the visualized lung bases are typical of atelectasis. Tiny bilateral effusions are present, smaller than before. 5. Gastrojejunostomy tube appears appropriately positioned. 6. Small hiatal hernia. 7. Small adrenal adenomas unchanged. Chest X-Ray 07/09/18 00:00 CONCLUSION: Interval improvement in pulmonary edema with mild residual. Physical Exam: GENERAL: very lethargic barely responsive thin chronically ill apperaing SKIN: Warm and dry. NO rash HEAD: Atraumatic. Normocephalic. EYES: No scleral icterus. ENT: No nasal bleeding or discharge. Mucous membranes pale and very dry NECK: Trach in place, site OK CARDIOVASCULAR: Regular rate and rhythm. + murmur, holosystolic RESPIRATORY: Decreased breath sounds at bases GASTROINTESTINAL: Abdomen soft, not tender in LLQ and mildly distended w/o guarding and rebound PEG in place + erythema around, mild MUSCULOSKELETAL: Extremities without clubbing, cyanosis, No obvious deformities. 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 ATN Recs: Continue Meropenem Continue Zyvox Continue Micafungin Palliative medicine evaluating Per RN son coming to area tomorrow Patient does not want HD, wants comfort measures D/W RN
--- NOTE | 2018-07-11 15:34 | XR ---
EXAM DATE: 07/11/2018 3:29 PM EST AGE/SEX: 73 years / Female INDICATIONS: Shortness of breath. CLINICAL DATA: This is the patient's subsequent encounter. Patient reports that signs and symptoms h ave been present for 2 weeks and indicates a pain score of Nonresponsive. MEDICAL/SURGICAL HISTORY: . Gastroesophageal reflux disease. Carcinoma, skin cancer. Rendon's esophagus. Hernia. Cholecystectomy. COMPARISON: C, CHEST 1V SINGLE AP, 07/09/2018. . FINDINGS: Tracheostomy is stable. Right arm PICC line is stable. There is diffuse bilateral pleural-parenchymal opacity with significantly increased confluence compared to prior exam. Cardiac silhouette is enlarg ed with moderate central vascular congestion. CONCLUSION: Significant worsening in aeration Electronically signed by: Gee Pinto MD 07/11/2018 3:33 PM EST
--- NOTE | 2018-07-11 16:14 | P.PN ---
Subjective Interval history: Doing poorly. Has leak around peg tube and J Tube backing up. In Acute renal failure. Physical Exam Vital signs: Vital Signs 07/10/18 16:56 07/10/18 20:00 07/11/18 00:18 Temperature 97 F L Pulse Rate 86 Respiratory Rate 20 24 Blood Pressure 105/49 L Pulse Oximetry 92 L 93 L 07/11/18 08:00 07/11/18 09:51 07/11/18 12:08 Temperature 98.6 F Pulse Rate 78 114 H Respiratory Rate 16 24 Blood Pressure 107/49 L 89/44 L Pulse Oximetry 93 L 92 L 92 L Intake & Output 07/10/18 07/11/18 07/11/18 18:59 06:59 18:59 Intake Total 1400 / 1400 4150 / 4150 450 / 450 Output Total 550 / 550 Balance 1400 / 1400 3600 / 3600 450 / 450 Weight 47.8 kg 50.4 kg Intake: IV 1400 / 1400 2700 / 2700 450 / 450 NS Inj 1,000 ML @ 50 mls/hr IV. 1000 / 1000 1000 / 1000 CONT .Q20H ANN Rx#:[id number] Flexbumin 25% Inj 50 ML @ 60 50 / 50 mls/hr IV.SIG Q6H ANN Rx#: [id number] Flexbumin 25% Inj 100 ML @ 60 100 / 100 mls/hr IV.SIG Q100M ANN Rx#: [id number] Zyvox 600 mg Premix 300 ML @ 300 / 300 300 / 300 300 / 300 300 mls/hr IV.SIG Q12HR ANN Rx# :[id number] Merrem Inj 500 MG In NS Inj 100 100 / 100 100 / 100 100 / 100 ML @ 200 mls/hr IV.SIG Q12H ANN Rx#:[id number] Mycamine Inj 150 MG In NS Inj 100 / 100 100 ML @ 100 mls/hr IV.SIG Q24H ANN Rx#:[id number] Oral 0 / 0 Tube Feeding 0 / 0 Water Bolus Amount 500 / 500 Other 950 / 950 Output: Stool 0 / 0 Urine/Stool Mix 0 / 0 Emesis 0 / 0 Urine Amount (Catheter) 350 / 350 Indwelling Urethral Catheter 350 / 350 Gastric Drainage 200 / 200 Gastrojejunostomy Tube 200 / 200 Jejunostomy Tube 0 / 0 Other: Other Intake Source Saline Solution Date of Last Bowel Movement 1107/09/18 07/10/18 # Bowel Movements 0 # Incontinent Bowel Movements 0 # Emeses 0 Narrative: GENERAL: mal-nourished, Frail appearing patient. SKIN: Warm and dry. HEAD: Normocephalic. EYES: No scleral icterus. No injection or drainage. NECK: Supple, tracheostomy CARDIOVASCULAR: Tachycardia. RESPIRATORY: Breath sounds diminished at bases wheezes and occ crackles GASTROINTESTINAL: Abdomen soft, non-tender, nondistended. G-J tube in place. EXTREMITIES: muscles wasting and , no edema. NEUROLOGICAL: Awake, alert, and oriented x 3. Non-focal. - Urinary Catheter Management Indwelling Urethral Catheter Cath placed during this visit: yes, but has since been removed by the nurse Reason for continuing: Chronic Urinary Retention Insertion date: 06/26/18 Insertion time: 00:30 Removal date: 06/26/18 Removal time: 00:00 Results - Labs CBC & Chem 7: 07/11/18 09:39 07/11/18 08:00 Laboratory Results - last 24 hr 07/10/18 07/11/18 07/11/18 18:00 08:00 09:39 WBC 20.0 H RBC 2.87 L Hgb 8.5 L Hct 25.5 L MCV 88.9 MCH 29.5 MCHC 33.1 RDW 14.8 Plt Count 45 L MPV 11.0 Sodium 136 Potassium 4.7 Chloride 103 Carbon Dioxide 20.5 L Anion Gap 13 BUN 99 H Creatinine 4.80 H Estimated GFR 9 L Random Glucose 90 Calcium 7.7 L B-Natriuretic Peptide Urine Color Sandra Urine Clarity Turbid H Urine pH 5.0 Ur Specific [place] 1.017 Urine Protein 100 H Urine Glucose (UA) Negative Urine Ketones Negative Urine Occult Blood Negative Urine Nitrate Negative Urine Bilirubin Negative Urine Urobilinogen Less than 2 Ur Leukocyte Esterase Large H Urine RBC 45 H Urine WBC Urine WBC Clumps Moderate H Amorphous Sediment Rare H Urine Bacteria Rare H Hyaline Casts 5 Urine Mucus Few H Urine Yeast Moderate H Ur Yeast w Hyphae Few H Micro UA Comment Cath-culture ind Ur Microscopic Review Not Reportable Urine Culture Comments Cath-cult indicated 07/11/18 09:39 WBC RBC Hgb Hct MCV MCH MCHC RDW Plt Count MPV Sodium Potassium Chloride Carbon Dioxide Anion Gap BUN Creatinine Estimated GFR Random Glucose Calcium B-Natriuretic Peptide 543 H Urine Color Urine Clarity Urine pH Ur Specific [place] Urine Protein Urine Glucose (UA) Urine Ketones Urine Occult Blood Urine Nitrate Urine Bilirubin Urine Urobilinogen Ur Leukocyte Esterase Urine RBC Urine WBC Urine WBC Clumps Amorphous Sediment Urine Bacteria Hyaline Casts Urine Mucus Urine Yeast Ur Yeast w Hyphae Micro UA Comment Ur Microscopic Review Urine Culture Comments Microbiology 07/10/18 18:00 Catheterized Urine Urine Culture - Preliminary Immature growth - reincubate - Imaging Impressions Chest X-Ray 07/11/18 00:00 CONCLUSION: Significant worsening in aeration Assessment and Plan - Assessment (1) Respiratory failure Code(s): J96.90 - Respiratory failure, unspecified, unspecified whether with hypoxia or hypercapnia Status: Acute (2) Pneumonia Code(s): J18.9 - Pneumonia, unspecified organism Status: Acute (3) Status post trachelectomy Code(s): Z90.710 - Acquired absence of both cervix and uterus Status: Acute (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 Cont T collar at 28 % FIO2 . 2. Cont nebs with albuterol qid. PRN 3. D/C Lovenox 4. Cont Levsin .125 mg qid prn. 5. Hold J tube feeds 6. Levsin .125 mg TID Prn for secretions 7. Antibiotics per ID 8. IV Fluids NS at 50 CC
[2018-07-11] MEDS: Micafungin Inj 150 MG in Sodium Chlor 0.9% Inj 100 ML IV.SIG SCH (20:08)
[2018-07-11 22:27] LABS: Creatinine,Urine Random 96 mg/dL (27-300); Sodium,Urine Random 40 meq/L
[2018-07-12] MEDS: Albumin Human 25% Inj 50 ML IV.SIG SCH ×3 (00:07→13:07)
[2018-07-12] MEDS: Pantoprazole Inj 40 MG Vial IV.PUSH SCH ×2 (05:29→17:50)
[2018-07-12] MEDS: Hyoscyamine Liq Drops 0.125 MG/ML 15 ML Bottle SL SCH ×4 (05:29→21:00)
[2018-07-12] MEDS: Levothyroxine 150 MCG Tablet J-TUBE SCH (05:29)
[2018-07-12 05:34] LABS: Hemoglobin 7.8 gm/dL (11.6-15.3); Mean Corpuscular HGB Conc 33.8 % (32.0-36.0); Mean Corpuscular Hemoglobin 29.4 pg (27.0-34.0); Mean Platelet Volume 11.2 fL (7.0-11.0); Platelet Count 45 th/mm3 (150-450); Red Blood Count 2.64 mil/mm3 (4.00-5.30); Red Cell Distribution Width 15.2 % (11.6-17.2); White Blood Count 20.2 th/mm3 (4.0-11.0)
[2018-07-12 05:57] LABS: Albumin 2.9 g/dL (3.4-5.0); Calcium 7.8 mg/dL (8.5-10.1); Carbon Dioxide 18.6 meq/L (21.0-32.0); Potassium 4.8 meq/L (3.5-5.1)
[2018-07-12 05:58] LABS: Phosphorus 7.2 mg/dL (2.5-4.9)
[2018-07-12 07:37] LABS: Blast Cells 14 % (0-0); Eosinophils 1 % (0-4); Lymphocytes 8 % (9-44); Metamyelocytes 8 % (0-1); Monocytes 20 % (0-8); Myelocytes 6 % (0-0); Promyelocyte 2 % (0-0)
[2018-07-12 07:38] LABS: Ovalocytes 1+; Toxic Vacuolation Present
[2018-07-12] MEDS: Loperamide Liq 2 MG/10 ML UDC J-TUBE SCH ×4 (09:35→20:10)
[2018-07-12] MEDS: Lidocaine 5% Patch T-DERMAL SCH (09:36)
[2018-07-12] MEDS: Lactobacillus Acidophilus/L. Spores Tablet J-TUBE SCH ×3 (09:36→17:50)
[2018-07-12] MEDS: Ascorbic Acid 500 MG Tablet J-TUBE SCH ×2 (09:36→20:10)
[2018-07-12] MEDS: buPROPion 75 MG Tablet J-TUBE SCH ×2 (09:37→20:12)
[2018-07-12] MEDS: Heparin Central Flush 100 UNIT/ML 5 ML Vial IV.FLUSH SCH (09:37)
--- NOTE | 2018-07-12 15:10 | P.PN ---
Subjective Interval history: Patient found sleeping in bed. Does wake to voice. Does not talk but will nod yes or no. Indicates some pain. Physical Exam Vital signs: Vital Signs 07/11/18 20:00 07/11/18 21:10 07/12/18 08:00 Temperature 98.7 F 98.4 F Pulse Rate 122 H 72 Respiratory Rate 20 12 Blood Pressure 97/46 L 97/44 L Pulse Oximetry 92 L 92 L 97 Intake & Output 07/11/18 07/12/18 07/12/18 18:59 06:59 18:59 Intake Total 1470 / 1470 2850 / 2850 Output Total 500 / 500 900 / 900 Balance 970 / 970 1950 / 1950 Weight 50.4 kg Intake: IV 450 / 450 1450 / 1450 NS Inj 1,000 ML @ 50 mls/hr IV. 800 / 800 CONT .Q20H ANN Rx#:[id number] Flexbumin 25% Inj 50 ML @ 60 50 / 50 150 / 150 mls/hr IV.SIG Q6H ANN Rx#: [id number] Zyvox 600 mg Premix 300 ML @ 300 / 300 300 / 300 300 mls/hr IV.SIG Q12HR ANN Rx# :[id number] Merrem Inj 500 MG In NS Inj 100 100 / 100 100 / 100 ML @ 200 mls/hr IV.SIG Q12H ANN Rx#:[id number] Mycamine Inj 150 MG In NS Inj 100 / 100 100 ML @ 100 mls/hr IV.SIG Q24H ANN Rx#:[id number] Oral 0 / 0 0 / 0 Tube Feeding 400 / 400 400 / 400 Tube Irrigant 120 / 120 Water Bolus Amount 500 / 500 500 / 500 Other 500 / 500 Output: Urine 0 / 0 0 / 0 Stool 0 / 0 0 / 0 Urine/Stool Mix 0 / 0 0 / 0 Emesis 0 / 0 Urine Amount (Catheter) 300 / 300 150 / 150 Indwelling Urethral Catheter 300 / 300 150 / 150 Gastric Drainage 200 / 200 750 / 750 Gastrojejunostomy Tube 200 / 200 750 / 750 Jejunostomy Tube 0 / 0 0 / 0 Other: Other Intake Source Saline Solution Saline Solution # Voids 0 0 # Incontinent Voids 0 0 # Urine Diapers 0 0 Date of Last Bowel Movement 07/10/18 07/10/18 07/12/18 # Bowel Movements 0 0 # Incontinent Bowel Movements 0 0 # Emeses 0 Narrative: GENERAL: Poorly nourished, Frail appearing patient. SKIN: Warm and dry. HEAD: Normocephalic. EYES: No scleral icterus. No injection or drainage. NECK: Supple, tracheostomy in place. CARDIOVASCULAR: Regular rate and rhythm. RESPIRATORY: Breath sounds diminished at bases and occ crackles. GASTROINTESTINAL: Abdomen soft, non-tender, nondistended. G-J tube in place. dressing of G-tube clean and dry. : Poor urine output in [place]. Sediment noted. EXTREMITIES: muscles wasting positive, no edema. NEUROLOGICAL: Drowsy - Urinary Catheter Management Indwelling Urethral Catheter Cath placed during this visit: yes, but has since been removed by the nurse Reason for continuing: Chronic Urinary Retention Insertion date: 06/26/18 Insertion time: 00:30 Removal date: 06/26/18 Removal time: 00:00 Results - Labs CBC & Chem 7: 07/12/18 05:24 07/12/18 05:24 Laboratory Results - last 24 hr 07/10/18 07/11/18 07/12/18 18:00 21:35 05:24 WBC 20.2 H RBC 2.64 L Hgb 7.8 L Hct 23.0 L MCV 87.0 MCH 29.4 MCHC 33.8 RDW 15.2 Plt Count 45 L MPV 11.2 H Prelim Diff (Auto) Manual diff required WBC Differential Manual diff final Seg Neuts % (Manual) 35 Band Neuts % (Manual) 6 Lymphocytes % (Manual) 8 L Monocytes % (Manual) 20 H Eosinophils % (Manual) 1 Metamyelocytes % (Man) 8 H Myelocytes % (Man) 6 H Promyelocytes % (Man) 2 H Blast Cells % (Manual) 14 H Abs Neuts (Manual) 11.5 H Differential Comment . Toxic Vacuolation Present H Platelet Estimate Low L Platelet Morphology Enlarged H Ovalocytes 1+ H Sodium Potassium Chloride Carbon Dioxide Anion Gap BUN Creatinine Estimated GFR Random Glucose Calcium Phosphorus Albumin Urine Color Sandra Urine Clarity Turbid H Urine pH 5.0 Ur Specific [place] 1.017 Urine Protein 100 H Urine Glucose (UA) Negative Urine Ketones Negative Urine Occult Blood Negative Urine Nitrate Negative Urine Bilirubin Negative Urine Urobilinogen Less than 2 Ur Leukocyte Esterase Large H Urine RBC 45 H Urine WBC Urine WBC Clumps Moderate H Amorphous Sediment Rare H Urine Bacteria Rare H Hyaline Casts 5 Urine Mucus Few H Urine Yeast Moderate H Ur Yeast w Hyphae Few H Micro UA Comment Cath-culture ind Urine Culture Comments Cath-cult indicated Ur Random Creatinine 96 Ur Random Sodium 40 07/12/18 05:24 WBC RBC Hgb Hct MCV MCH MCHC RDW Plt Count MPV Prelim Diff (Auto) WBC Differential Seg Neuts % (Manual) Band Neuts % (Manual) Lymphocytes % (Manual) Monocytes % (Manual) Eosinophils % (Manual) Metamyelocytes % (Man) Myelocytes % (Man) Promyelocytes % (Man) Blast Cells % (Manual) Abs Neuts (Manual) Differential Comment Toxic Vacuolation Platelet Estimate Platelet Morphology Ovalocytes Sodium 136 Potassium 4.8 Chloride 101 Carbon Dioxide 18.6 L Anion Gap 16 H BUN 105 H Creatinine 5.68 H Estimated GFR 7 L Random Glucose 83 Calcium 7.8 L Phosphorus 7.2 H Albumin 2.9 L Urine Color Urine Clarity Urine pH Ur Specific [place] Urine Protein Urine Glucose (UA) Urine Ketones Urine Occult Blood Urine Nitrate Urine Bilirubin Urine Urobilinogen Ur Leukocyte Esterase Urine RBC Urine WBC Urine WBC Clumps Amorphous Sediment Urine Bacteria Hyaline Casts Urine Mucus Urine Yeast Ur Yeast w Hyphae Micro UA Comment Urine Culture Comments Ur Random Creatinine Ur Random Sodium Microbiology 07/10/18 18:00 Catheterized Urine Urine Culture - Preliminary Group D Enterococcus Yeast - ID to follow - Imaging Impressions Chest X-Ray 07/11/18 00:00 CONCLUSION: Significant worsening in aeration Assessment and Plan - Assessment (1) Respiratory failure Code(s): J96.90 - Respiratory failure, unspecified, unspecified whether with hypoxia or hypercapnia Status: Acute (2) Pneumonia Code(s): J18.9 - Pneumonia, unspecified organism Status: Acute (3) Status post trachelectomy Code(s): Z90.710 - Acquired absence of both cervix and uterus Status: Acute (4) Carcinoma of supraglottis Code(s): C32.1 - Malignant neoplasm of supraglottis Status: Acute (5) COPD (chronic obstructive pulmonary disease) Code(s): J44.9 - Chronic obstructive pulmonary disease, unspecified Status: Chronic (6) Dysphagia Code(s): R13.10 - Dysphagia, unspecified Status: Chronic (7) Lung nodule, solitary Code(s): R91.1 - Solitary pulmonary nodule Status: Chronic (8) Lung nodules Code(s): R91.8 - Other nonspecific abnormal finding of lung field Status: Chronic - Plan 73-year-old female with 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 The rapid response was called and the patient was transferred to ICU where she was placed on 60% oxygenation via trach collar. [facility] reconsulted 05/23 due to hypotension. Currently managed for recurrent respiratory infections with MDRO managed by ID. CT chest does demonstrate a moderate left pleural effusion with left lower lobe atelectasis s/p thoracocentesis. Patient was again sent over to the ICU on 05/29 for acute pulmonary edema with further fever spikes. Patient underwent diuresis and was made a no code, was eventually stabilized and transition back to hospitalist care. 07/12/18 -meeting with Dr. Scales, myself, patient's son and patient's brother. Patient family is requesting hospice consult. They are not interested in care center preferring not to disturb or pain her with transport. Requesting no further vitals or testing but do continue antibiotics and oxygen. They are concerned about overmedication and that she will not be able to recognize family members as they come to say goodbye -asking that additional pain medications be given only as needed. Do agree to low-dose scheduled pain medications. 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 Nephro consulted -patient refusing dialysis S/P Fall -Fell 07/04/18 as per nursing -CT with 6 mm lesion recommended MRI. MRI ordered. -No neurological changes noted; degenerative finding on x-rays only -Neuro checks. Fall precaution -Son spoke with nurse does not want MRI if Benzo or other sedatives will be given to patient. -MRI negative GJ tube with leakage Soft tissue mass thru PEG site -s/p cauterization by Dr. Bautista. GJ tube not in proper position causing leaking; monitor bumper. -s/p IR GJ tube placement 06/30. Leakage around PEG site improved with escalation of PPI. -Tolerating tube feeds at 40cc/hr, titrate up slowly and monitor for recurrence of leakage. Goal 55ml as per repairer recreational vehicle -monitor skin around PEG site,slight erythema noted, continue with present tx. -Keep G-tube to gravity drainage per Dr. Aly. Recent coffee-ground drainage likely related to suction. Pancytopenia d/t myelodysplastic syndrome Per Heme/Onc: pancytopenia is due to MDS. She is not a candidate for chemo. -Recommendation for pancytopenia is transfusion of PRBC (if Hg <7) and plat( if plat <15) support. -Lovenox held due to thrombocytopenia. -Anticoagulation recommended with platelet count consistently greater than 75 ,000; otherwise hold. History of DVT, Right lower extremity -Previously was on Lovenox but held due to thrombocytopenia as above. MDRO PSAE persistent colonization both sputum and urine Leukocytosis w/ repeat UTI PNA, MDRO PSAE, Steno malt 05/29 History of squamous cell carcinoma of the larynx now status post tracheostomy due to recurrent aspiration Spiculated right upper lobe pulmonary nodule, multiple R pulmonary nodules -Dr. Pineda has discussed risk/ benefits of biopsy with patient and her son on 05/05 and at that time they opted to defer biopsy. -Pseudomonas MDR, sensitive to only tobramycin. 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 -Levaquin completed prior -Repeat urine culture lolly tropicalis, VRE EColi MDRO <50K -07/09 -WBCs increased to 24+. ID reconsulted. Repeat cultures ordered Right hip and right knee pain-patient complaining of right hip pain and knee pain; now generalized pain No history of trauma to knee, xray unremarkable. -Possibly due to clot burden??. Patient off Lovenox since 05/30. -Continue pain control with [place] and Tylenol. -Lyrica BID. Depression/anxiety -Continue Lexapro and Wellbutrin, Continue Klonopin through the G-tube every 8 hours, Temazepam as needed for insomnia Diarrhea -Likely secondary to antibiotics, improved. C. difficile studies were negative on 05/25, Continue Lomotil. DVT PPX, SCD Left, Lovenox held Code Status DNR Discussed Condition With Patient family, nursing staff, Dr. Scales, Palliative
--- NOTE | 2018-07-12 17:07 | P.PNNP ---
Subjective Interval history: Patient is weak responsive has not responded to fluids stimulation and urine output remains low with high BUN and creatinine chest x-ray looks worse Physical Exam Vital signs: Vital Signs 07/11/18 20:00 07/11/18 21:10 07/12/18 08:00 Temperature 98.7 F 98.4 F Pulse Rate 122 H 72 Respiratory Rate 20 12 Blood Pressure 97/46 L 97/44 L Pulse Oximetry 92 L 92 L 97 Intake & Output 07/11/18 07/12/18 07/12/18 18:59 06:59 18:59 Intake Total 1470 / 1470 2850 / 2850 Output Total 500 / 500 900 / 900 Balance 970 / 970 1950 / 1950 Weight 50.4 kg Intake: IV 450 / 450 1450 / 1450 NS Inj 1,000 ML @ 50 mls/hr IV. 800 / 800 CONT .Q20H ANN Rx#:[id number] Flexbumin 25% Inj 50 ML @ 60 50 / 50 150 / 150 mls/hr IV.SIG Q6H ANN Rx#: [id number] Zyvox 600 mg Premix 300 ML @ 300 / 300 300 / 300 300 mls/hr IV.SIG Q12HR ANN Rx# :[id number] Merrem Inj 500 MG In NS Inj 100 100 / 100 100 / 100 ML @ 200 mls/hr IV.SIG Q12H ANN Rx#:[id number] Mycamine Inj 150 MG In NS Inj 100 / 100 100 ML @ 100 mls/hr IV.SIG Q24H ANN Rx#:[id number] Oral 0 / 0 0 / 0 Tube Feeding 400 / 400 400 / 400 Tube Irrigant 120 / 120 Water Bolus Amount 500 / 500 500 / 500 Other 500 / 500 Output: Urine 0 / 0 0 / 0 Stool 0 / 0 0 / 0 Urine/Stool Mix 0 / 0 0 / 0 Emesis 0 / 0 Urine Amount (Catheter) 300 / 300 150 / 150 Indwelling Urethral Catheter 300 / 300 150 / 150 Gastric Drainage 200 / 200 750 / 750 Gastrojejunostomy Tube 200 / 200 750 / 750 Jejunostomy Tube 0 / 0 0 / 0 Other: Other Intake Source Saline Solution Saline Solution # Voids 0 0 # Incontinent Voids 0 0 # Urine Diapers 0 0 Date of Last Bowel Movement 07/10/18 07/10/18 07/12/18 # Bowel Movements 0 0 # Incontinent Bowel Movements 0 0 # Emeses 0 Narrative: GENERAL: Poorly nourished, Frail appearing patient. SKIN: Warm and dry. HEAD: Normocephalic. EYES: No scleral icterus. No injection or drainage. NECK: Supple, tracheostomy in place. CARDIOVASCULAR: Regular rate and rhythm. RESPIRATORY: Breath sounds diminished at bases and occ crackles. GASTROINTESTINAL: Abdomen soft, non-tender, nondistended. G-J tube in place. dressing of G-tube clean and dry. : Poor urine output in [place]. Sediment noted. EXTREMITIES: muscles wasting positive, no edema. NEUROLOGICAL: Drowsy - Urinary Catheter Management Indwelling Urethral Catheter Cath placed during this visit: yes, but has since been removed by the nurse Reason for continuing: Chronic Urinary Retention Insertion date: 06/26/18 Insertion time: 00:30 Removal date: 06/26/18 Removal time: 00:00 Assessment and Plan - Assessment (1) BETSEY (acute kidney injury) Code(s): N17.9 - Acute kidney failure, unspecified Status: Acute Plan: (1) BETSEY (acute kidney injury) Code(s): N17.9 - Acute kidney failure, unspecified Status: Acute Plan: Discussed with son again today he is admitting the mother to hospice and dialysis is not an option stopped all blood work I will sign off please reconsult if needed further input Not a candidate for dialysis, as patient refused and it will be very difficult to do dialysis given her failing health, low Blood pressure, respiratory failure , Multiorgan failure detention outlook is poor. (2) Pneumonia Code(s): J18.9 - Pneumonia, unspecified organism Status: Acute Plan: Patient is on antibiotics. On droplet precautions. - Plan Very poor prognosis. At risk for multiple complications.
[2018-07-12] MEDS: Micafungin Inj 150 MG in Sodium Chlor 0.9% Inj 100 ML IV.SIG SCH (20:10)
[2018-07-13] MEDS: Hyoscyamine Liq Drops 0.125 MG/ML 15 ML Bottle SL SCH ×2 (03:13→09:05)
[2018-07-13] MEDS: Levothyroxine 150 MCG Tablet J-TUBE SCH (05:07)
[2018-07-13] MEDS: Pantoprazole Inj 40 MG Vial IV.PUSH SCH (05:07)
[2018-07-13 07:36] VITALS: BP 134/80; PULSE 82; RESP 14; TEMP 98.5
[2018-07-13] MEDS: buPROPion 75 MG Tablet J-TUBE SCH (08:44)
[2018-07-13] MEDS: Ascorbic Acid 500 MG Tablet J-TUBE SCH (08:45)
[2018-07-13] MEDS: Heparin Central Flush 100 UNIT/ML 5 ML Vial IV.FLUSH SCH (08:47)
[2018-07-13] MEDS: Lidocaine 5% Patch T-DERMAL SCH (08:47)
[2018-07-13] MEDS: Loperamide Liq 2 MG/10 ML UDC J-TUBE SCH (08:47)
[2018-07-13] MEDS: Lactobacillus Acidophilus/L. Spores Tablet J-TUBE SCH (08:47)
[2018-07-13 09:27] VITALS: O2SAT 96
--- NOTE | 2018-07-13 10:04 | P.PN ---
Subjective Interval history: Pt resting quietly. Minimally responsive Physical Exam Vital signs: Vital Signs 07/12/18 20:00 07/13/18 07:31 07/13/18 07:35 Temperature 98 F 98.5 F Pulse Rate 72 82 Respiratory Rate 20 12 14 Blood Pressure 98/46 L 134/80 Pulse Oximetry 100 98 07/13/18 09:27 Temperature Pulse Rate Respiratory Rate Blood Pressure Pulse Oximetry 96 Intake & Output 07/12/18 07/13/18 07/13/18 18:59 06:59 18:59 Intake Total 800 / 800 1400 / 1400 Output Total 120 / 120 600 / 600 Balance 680 / 680 800 / 800 Weight 48.7 kg Intake: IV 300 / 300 400 / 400 Zyvox 600 mg Premix 300 ML @ 300 / 300 300 / 300 300 mls/hr IV.SIG Q12HR ANN Rx# :[id number] Mycamine Inj 150 MG In NS Inj 100 / 100 100 ML @ 100 mls/hr IV.SIG Q24H ANN Rx#:[id number] Oral 0 / 0 Water Bolus Amount 500 / 500 500 / 500 Other 500 / 500 Output: Stool 0 / 0 Urine/Stool Mix 0 / 0 Emesis 0 / 0 Urine Amount (Catheter) 120 / 120 150 / 150 Indwelling Urethral Catheter 120 / 120 150 / 150 Gastric Drainage 450 / 450 Gastrojejunostomy Tube 450 / 450 Jejunostomy Tube 0 / 0 Other: Other Intake Source Saline Solution Date of Last Bowel Movement 07/12/18 07/12/18 07/12/18 # Bowel Movements 0 # Incontinent Bowel Movements 0 # Emeses 0 Narrative: GENERAL: Poorly nourished, Frail appearing patient. SKIN: Warm and dry. HEAD: Normocephalic. EYES: No scleral icterus. No injection or drainage. NECK: Supple, tracheostomy in place. CARDIOVASCULAR: Regular rate and rhythm. RESPIRATORY: Breath sounds diminished at bases and occ crackles. GASTROINTESTINAL: Abdomen soft, non-tender, nondistended. G-J tube in place. dressing of G-tube clean and dry. : Poor urine output in [place]. Sediment noted. EXTREMITIES: muscles wasting positive, no edema. NEUROLOGICAL: Drowsy - Urinary Catheter Management Indwelling Urethral Catheter Cath placed during this visit: yes, but has since been removed by the nurse Reason for continuing: Chronic Urinary Retention Insertion date: 06/26/18 Insertion time: 00:30 Removal date: 06/26/18 Removal time: 00:00 Results - Labs CBC & Chem 7: 07/12/18 05:24 07/12/18 05:24 Laboratory Results - last 24 hr 07/10/18 18:00 Urine Color Sandra Urine Clarity Turbid H Urine pH 5.0 Ur Specific [place] 1.017 Urine Protein 100 H Urine Glucose (UA) Negative Urine Ketones Negative Urine Occult Blood Negative Urine Nitrate Negative Urine Bilirubin Negative Urine Urobilinogen Less than 2 Ur Leukocyte Esterase Large H Urine RBC 45 H Urine WBC Urine WBC Clumps Moderate H Amorphous Sediment Rare H Urine Bacteria Rare H Hyaline Casts 5 Urine Mucus Few H Urine Yeast Moderate H Ur Yeast w Hyphae Few H Micro UA Comment Cath-culture ind Urine Culture Comments Cath-cult indicated Microbiology 07/10/18 18:00 Catheterized Urine Urine Culture - Preliminary Group D Enterococcus Yeast - ID to follow Assessment and Plan - Assessment (1) Respiratory failure Code(s): J96.90 - Respiratory failure, unspecified, unspecified whether with hypoxia or hypercapnia Status: Acute (2) Pneumonia Code(s): J18.9 - Pneumonia, unspecified organism Status: Acute (3) Status post trachelectomy Code(s): Z90.710 - Acquired absence of both cervix and uterus Status: Acute (4) Carcinoma of supraglottis Code(s): C32.1 - Malignant neoplasm of supraglottis Status: Acute (5) COPD (chronic obstructive pulmonary disease) Code(s): J44.9 - Chronic obstructive pulmonary disease, unspecified Status: Chronic (6) Dysphagia Code(s): R13.10 - Dysphagia, unspecified Status: Chronic (7) Lung nodule, solitary Code(s): R91.1 - Solitary pulmonary nodule Status: Chronic (8) Lung nodules Code(s): R91.8 - Other nonspecific abnormal finding of lung field Status: Chronic - Plan 73-year-old female with 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 The rapid response was called and the patient was transferred to ICU where she was placed on 60% oxygenation via trach collar. [facility] reconsulted 05/23 due to hypotension. Currently managed for recurrent respiratory infections with MDRO managed by ID. CT chest does demonstrate a moderate left pleural effusion with left lower lobe atelectasis s/p thoracocentesis. Patient was again sent over to the ICU on 05/29 for acute pulmonary edema with further fever spikes. Patient underwent diuresis and was made a no code, was eventually stabilized and transition back to hospitalist care. 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 Nephro consulted -patient refusing dialysis S/P Fall -Fell 07/04/18 as per nursing -CT with 6 mm lesion recommended MRI. MRI ordered. -No neurological changes noted; degenerative finding on x-rays only -Neuro checks. Fall precaution -Son spoke with nurse does not want MRI if Benzo or other sedatives will be given to patient. -MRI negative GJ tube with leakage Soft tissue mass thru PEG site -s/p cauterization by Dr. Bautista. GJ tube not in proper position causing leaking; monitor bumper. -s/p IR GJ tube placement 06/30. Leakage around PEG site improved with escalation of PPI. -Tolerating tube feeds at 40cc/hr, titrate up slowly and monitor for recurrence of leakage. Goal 55ml as per rent and miscellaneous remittance clerk -monitor skin around PEG site,slight erythema noted, continue with present tx. -Keep G-tube to gravity drainage per Dr. Aly. Recent coffee-ground drainage likely related to suction. Pancytopenia d/t myelodysplastic syndrome Per Heme/Onc: pancytopenia is due to MDS. She is not a candidate for chemo. -Recommendation for pancytopenia is transfusion of PRBC (if Hg <7) and plat( if plat <15) support. -Lovenox held due to thrombocytopenia. -Anticoagulation recommended with platelet count consistently greater than 75 ,000; otherwise hold. History of DVT, Right lower extremity -Previously was on Lovenox but held due to thrombocytopenia as above. MDRO PSAE persistent colonization both sputum and urine Leukocytosis w/ repeat UTI PNA, MDRO PSAE, Steno malt 05/29 History of squamous cell carcinoma of the larynx now status post tracheostomy due to recurrent aspiration Spiculated right upper lobe pulmonary nodule, multiple R pulmonary nodules -Dr. Pineda has discussed risk/ benefits of biopsy with patient and her son on 05/05 and at that time they opted to defer biopsy. -Pseudomonas MDR, sensitive to only tobramycin. 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 -Levaquin completed prior -Repeat urine culture lolly tropicalis, VRE EColi MDRO <50K -07/09 -WBCs increased to 24+. ID reconsulted. Repeat cultures ordered Right hip and right knee pain-patient complaining of right hip pain and knee pain; now generalized pain No history of trauma to knee, xray unremarkable. -Possibly due to clot burden??. Patient off Lovenox since 05/30. -Continue pain control with [place] and Tylenol. -Lyrica BID. Depression/anxiety -Continue Lexapro and Wellbutrin, Continue Klonopin through the G-tube every 8 hours, Temazepam as needed for insomnia Diarrhea -Likely secondary to antibiotics, improved. C. difficile studies were negative on 05/25, Continue Lomotil. DVT PPX, SCD Left, Lovenox held Code Status DNR Discussed Condition With Patient family, nursing staff, Dr. Scales, Palliative
--- NOTE | 2018-07-13 10:14 | P.DS ---
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 The rapid response was called and the patient was transferred to ICU where she was placed on 60% oxygenation via trach collar. The critical care medicine was consulted for an admission. 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 The rapid response was called and the patient was transferred to ICU where she was placed on 60% oxygenation via trach collar. Remained in intensive care due to hypotension and pulmonary edema. Patient underwent diuresis and was eventually stabilized and transition back to hospitalist care. Made DNR at that time. Unfortunately she was unable to be weaned from trach. Patient also remained unable to take p.o. and was reliant upon GJ tube which was placed on . PEG site chronically leaking despite multiple repositioning attempts. 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 Over entire course of hospitalization patient suffered multiple UTIs and pneumonia eventually resulting in MDRO PSAE persistent colonization of both sputum and urine. Underlying chronic kidney disease was aggravated by acute kidney injury; eventually progressing to renal failure. Patient and son refused dialysis after consult with nephrology. Palliative care also involved; patient and son decided on hospice and patient was transferred to [facility]. - Time Spent with Patient Total time spent providing and/or coordinating discharge services: Less than 30 minutes Exam Vital signs: Vital Signs 07/12/18 20:00 07/13/18 07:31 07/13/18 07:35 Temperature 98 F 98.5 F Pulse Rate 72 82 Respiratory Rate 20 12 14 Blood Pressure 98/46 L 134/80 Pulse Oximetry 100 98 07/13/18 09:27 Temperature Pulse Rate Respiratory Rate Blood Pressure Pulse Oximetry 96 Intake & Output 07/12/18 07/13/18 07/13/18 18:59 06:59 18:59 Intake Total 800 / 800 1400 / 1400 Output Total 120 / 120 600 / 600 Balance 680 / 680 800 / 800 Weight 48.7 kg Intake: IV 300 / 300 400 / 400 Zyvox 600 mg Premix 300 ML @ 300 / 300 300 / 300 300 mls/hr IV.SIG Q12HR ANN Rx# :[id number] Mycamine Inj 150 MG In NS Inj 100 / 100 100 ML @ 100 mls/hr IV.SIG Q24H ANN Rx#:[id number] Oral 0 / 0 Water Bolus Amount 500 / 500 500 / 500 Other 500 / 500 Output: Stool 0 / 0 Urine/Stool Mix 0 / 0 Emesis 0 / 0 Urine Amount (Catheter) 120 / 120 150 / 150 Indwelling Urethral Catheter 120 / 120 150 / 150 Gastric Drainage 450 / 450 Gastrojejunostomy Tube 450 / 450 Jejunostomy Tube 0 / 0 Other: Other Intake Source Saline Solution Date of Last Bowel Movement 07/12/18 07/12/18 07/12/18 # Bowel Movements 0 # Incontinent Bowel Movements 0 # Emeses 0 Narrative: GENERAL: Poorly nourished, Frail appearing patient. SKIN: Warm and dry. HEAD: Normocephalic. EYES: No scleral icterus. No injection or drainage. NECK: Supple, tracheostomy in place. CARDIOVASCULAR: Regular rate and rhythm. RESPIRATORY: Breath sounds diminished at bases and occ crackles. GASTROINTESTINAL: Abdomen soft, non-tender, nondistended. G-J tube in place. dressing of G-tube clean and dry. : Poor urine output in [place]. Sediment noted. EXTREMITIES: muscles wasting positive, no edema. NEUROLOGICAL: Drowsy Results Procedures completed during hospitalization: none Labs on day of discharge: Labs from last 24 hours 07/10/18 18:00 Urine Color Sandra Urine Clarity Turbid H Urine pH 5.0 Ur Specific [place] 1.017 Urine Protein 100 H Urine Glucose (UA) Negative Urine Ketones Negative Urine Occult Blood Negative Urine Nitrate Negative Urine Bilirubin Negative Urine Urobilinogen Less than 2 Ur Leukocyte Esterase Large H Urine RBC 45 H Urine WBC Urine WBC Clumps Moderate H Amorphous Sediment Rare H Urine Bacteria Rare H Hyaline Casts 5 Urine Mucus Few H Urine Yeast Moderate H Ur Yeast w Hyphae Few H Micro UA Comment Cath-culture ind Urine Culture Comments Cath-cult indicated Preliminary micro results at discharge 07/10/18 18:00 Urine Culture - Preliminary Catheterized Urine Group D Enterococcus Yeast - ID to follow - Impressions ITS Impressions Abdomen/Bladder Ultrasound 05/06/18 00:00 CONCLUSION: 1. Increased renal echogenicity characteristic of medical renal disease. Small cyst right kidney. Dependent debris in the bladder. Tube Check 05/20/18 00:00 CONCLUSION: 1. Uncomplicated tube injection as above. The gastrojejunostomy tube is in good position. If there is concern for duodenal stricture resulting in a functional obstruction consideration could be made to the administration of barium either orally or through the gastric lumen of the tube to assess for any obstruction. Thin iodinated contrast would be limited in trying to assess this. Upper GI Series 05/21/18 00:00 CONCLUSION: No evidence of gastric outlet or duodenal obstruction. Chest CT 05/22/18 16:12 CONCLUSION: 1. Moderate left pleural effusion with atelectasis of the left lower lobe. 2. Mild right base atelectasis, improved compared to prior CT. 3. Right upper lobe pulmonary nodules are stable but the larger one remains concerning for primary bronchogenic carcinoma. Chest Ultrasound 05/23/18 00:00 CONCLUSION: 1. Lastly 360 cc of pleural effusion on the left. This does not appear loculated or complex. Site was marked Thoracentesis Ultrasound 05/23/18 00:00 CONCLUSION: Uncomplicated ultrasound-guided left chest thoracentesis as above. Extremity Arterial Study 05/24/18 00:00 CONCLUSION: 1. Severe reduction of the ABIs bilaterally. Chest CTA 05/26/18 00:00 CONCLUSION: 1. No evidence for pulmonary embolism. 2. Bibasilar consolidation. 3. Prominent nodule in the right upper lobe again seen measuring 13 mm concerning for malignancy. 4. Patchy opacities in the lingula and left lower lobe likely infectious. Hip X-Ray 06/26/18 00:00 CONCLUSION: Limited study. No definite bony fracture or joint dislocation. Knee X-Ray 06/26/18 00:00 CONCLUSION: Unremarkable exam for patient's age. Abdomen X-Ray 06/27/18 18:35 CONCLUSION: Within normal limits. No evidence of gastrojejunostomy tube leak. Tube Change 06/30/18 00:00 CONCLUSION: Uncomplicated gastrojejunostomy tube exchange as above. Venous Doppler Study 07/04/18 00:00 CONCLUSION: 1. Nonocclusive thrombus in the right common femoral vein and greater saphenous vein probably recanalized old clot for the most part. 2. Negative for thrombus in the left Head CT 07/04/18 18:56 CONCLUSION: 1. Solitary 6 mm hypodense round lesion in the right basal ganglia is nonspecific on noncontrast CT. Patient has history of head and neck tumor. Differential considerations include lacunar infarct and a metastatic lesion. May consider further evaluation with MRI with and without contrast. . Cervical Spine X-Ray 07/04/18 18:57 CONCLUSION: Degenerative findings of the cervical spine. No fracture identified. C6 and C7 not well visualized on lateral view. Lumbar Spine X-Ray 07/04/18 18:59 CONCLUSION: Degenerative findings of the lumbar spine. No evidence of fracture. Thoracic Spine X-Ray 07/04/18 18:59 CONCLUSION: Degenerative findings of the thoracic spine. No evidence of fracture. Head MRI 07/08/18 07:01 CONCLUSION: 1. No acute intracranial abnormality. 2. Atrophy and chronic small vessel ischemic change. 3. Chronic lacunar infarction involving the right basal ganglia. Abdomen/Pelvis CT 07/09/18 00:00 CONCLUSION: 1. No obstruction, inflammatory changes or other acute abnormality seen within the abdomen or pelvis. 2. Hepatomegaly not significantly changed. 3. Scattered small nonobstructing stones of both kidneys and a benign appearing right renal cyst. 4. Possible right middle lobe pneumonia. The parenchymal opacities otherwise of the visualized lung bases are typical of atelectasis. Tiny bilateral effusions are present, smaller than before. 5. Gastrojejunostomy tube appears appropriately positioned. 6. Small hiatal hernia. 7. Small adrenal adenomas unchanged. Chest X-Ray 07/11/18 00:00 CONCLUSION: Significant worsening in aeration Discharge Plan - Discharge Disposition Patient Disposition: [facility] Hospice[facility]Med Facility - Discharge Condition Condition: Critical - Discharge Order Discharge Orders: Discharge Order (Routine); Ordered 07/13/18 Ordered By: Liat Quick - Physicians Team Primary Care Provider: UNKNOWN, Attending Provider: Lulu Scales Other Providers: Dwayne Salas MD ; Molina Gaxiola MD ; Maribell Canchola MD ; Adolph Farfan ; Gee Marcelino MD ; Kike Oleary MD ; Sadie Ashby MD ; Adilene Flores DPM ; Jaskaran Catalan MD ; Jayden Archibald MD ; Andressa Paredes DPM ; Joana Radford DO ; Gopal Pineda MD ; Ishmael Aly MD ; Yury Blanco MD - Rxs /Orders / Referrals /Forms Prescriptions: Continue acetaminophen 325 mg Tablet 650 mg J-Tube Q4H PRN (Reason: Fever > 101 F) RF: 0 acetaminophen 325 mg Tablet 650 mg PO Q4H PRN (Reason: See Label Comments) RF: 0 albuterol sulfate 2.5 mg /3 mL (0.083 %) Solution For Nebulization 2.5 mg NEB Q2HR NEB PRN (Reason: Shortness Of Breath/Wheezing) RF: 0 bupropion HCl 75 mg Tablet 150 mg J-Tube BID RF: 0 cetirizine 10 mg Tablet 10 mg PO HS diphenhydramine HCl 25 mg Capsule 25 mg J-Tube Q4H PRN (Reason: See Label Comments) RF: 0 escitalopram oxalate 20 mg Tablet 20 mg Feeding Tube DAILY glycopyrrolate 0.2 mg/mL Solution 0.4 mg IV.PUSH Q8H PRN (Reason: thick secretions) RF: 0 hydrocodone-acetaminophen 5-325 mg Tablet 1 tab J-Tube Q4H PRN (Reason: PAIN 2-5) RF: 0 hydrocodone-acetaminophen 5-325 mg Tablet 2 tab J-Tube Q4H PRN (Reason: PAIN 6-10) RF: 0 hyoscyamine sulfate [Hyosyne] 0.125 mg/mL Drops 0.125 mg J-Tube Q4H PRN (Reason: Secretions) RF: 0 ipratropium-albuterol 0.5 mg-3 mg(2.5 mg base)/3 mL Solution For Nebulization 1 amp NEB Q2HR NEB PRN (Reason: Dyspnea) RF: 0 levothyroxine 100 mcg Capsule 100 mcg Feeding Tube DAILY lorazepam [Ativan] 2 mg/mL Solution 1 mg IV.PUSH Q6H PRN (Reason: Anxiety) RF: 0 morphine concentrate 100 mg/5 mL (20 mg/mL) Solution 5 mg Sublingual Q4H PRN (Reason: pain 2-10) RF: 0 ondansetron HCl 4 mg/5 mL Solution 4 mg J-Tube Q6H PRN (Reason: Nausea Or Vomiting) RF: 0 simethicone [Gas Relief] 125 mg Tablet,Chewable 125 mg J-Tube Q4H PRN (Reason: RELATING TO BLOATING) RF: 0 Discontinued acidophilus-sporogenes [Acidophilus Ex Str (L. sporog)] 35 million- 25 million cell Tablet 1 tab J-Tube TID RF: 0 ascorbic acid (vitamin C) 500 mg Tablet 500 mg Feeding Tube BID benzocaine [Baby Teething Pain Medicine] 7.5 % Gel 1 applic buccal Q2H PRN (Reason: MOUTH PAIN) RF: 0 bisacodyl [Bisac-Evac] 10 mg Suppository 10 mg KS DAILY PRN (Reason: Severe Consitipation) RF: 0 dextrose 50 % in water (D50W) Parenteral Solution 50 ml IV.PUSH UNSCH PRN (Reason: Per Hypoglycemia Protocol) RF: 0 diphenhydramine HCl 25 mg Capsule 25 mg PO Q4H PRN (Reason: See Label Comments) RF: 0 enoxaparin [Lovenox] 80 mg/0.8 mL Syringe 70 mg Sub-Q Q12HR RF: 0 glucagon (human recombinant) [GlucaGen Diagnostic Kit] 1 mg/mL Recon Soln 1 mg OTHER PRN PRN (Reason: for Hypoglycemia Protocol) RF: 0 hyoscyamine sulfate 0.125 mg Tablet 0.125 mg J-Tube Q6H RF: 0 lactulose 20 gram/30 mL Solution 30 ml J-Tube DAILY PRN (Reason: Severe Consitipation) RF: 0 magnesium hydroxide [Milk of Magnesia] 400 mg/5 mL Suspension 30 ml J-Tube Q12H PRN (Reason: Mild Constipation) RF: 0 multivitamin [Daily Multi-Vitamin] Tablet 1 tab Feeding Tube DAILY pantoprazole [Protonix] 40 mg Recon Soln 40 mg IV.PUSH Q12H RF: 0 potassium bicarb and chloride 25 mEq Tablet, Effervescent 25 meq J-Tube DAILY RF: 0 sennosides [Senna Lax] 8.6 mg Tablet 17.2 mg J-Tube Q12H PRN (Reason: Moderate Constipation) RF: 0 sodium chloride 0.9 % [Normal Saline Flush] Syringe 2 ml IV.FLUSH BID RF: 0 sodium chloride 0.9 % [Normal Saline Flush] Syringe 2 ml IV.FLUSH PRN PRN (Reason: Flush After Using Iv Access) RF: 0 vancomycin 500 mg Recon Soln 500 mg J-Tube QID RF: 0 zinc sulfate 220 mg Tablet 220 mg J-Tube DAILY RF: 0 Referrals: UNKNOWN, [Primary Care Provider] - See Instructions
== END 2018-07-13 13:00 | disposition hospice, inpatient (51) ==
LOC: HIMC 18:29 → H7ONC 04-25 15:15 → HIMC 05-22 17:55 → H7ONC 05-23 11:34 → HIMC 05-29 18:00 → H7ONC 05-31 18:23
PROVIDERS: ADMIT Hospitalist; ATTEND Hospitalist
DX: N17.9 Acute kidney failure, unspecified; I50.22 Chronic systolic (congestive) heart failure; Z88.0 Allergy status to penicillin; C32.1 Malignant neoplasm of supraglottis; Z92.3 Personal history of irradiation; K64.9 Unspecified hemorrhoids; Z85.828 Personal history of other malignant neoplasm of skin; A41.9 Sepsis, unspecified organism; J43.9 Emphysema, unspecified; Z74.01 Bed confinement status; J44.0 Chronic obstructive pulmonary disease with (acute) lower respiratory infection; E86.9 Volume depletion, unspecified; L89.159 Pressure ulcer of sacral region, unspecified stage; Z85.21 Personal history of malignant neoplasm of larynx; Z86.73 Personal history of transient ischemic attack (TIA), and cerebral infarction without residual deficits; E03.9 Hypothyroidism, unspecified; Z80.3 Family history of malignant neoplasm of breast; K31.84 Gastroparesis; M25.551 Pain in right hip; N17.0 Acute kidney failure with tubular necrosis; G47.00 Insomnia, unspecified; Z66 Do not resuscitate; I82.501 Chronic embolism and thrombosis of unspecified deep veins of right lower extremity; Z91.010 Allergy to peanuts; Z93.0 Tracheostomy status; W19.XXXA Unspecified fall, initial encounter; N39.0 Urinary tract infection, site not specified; K94.23 Gastrostomy malfunction; N18.3 Chronic kidney disease, stage 3 (moderate); Z51.5 Encounter for palliative care; E43 Unspecified severe protein-calorie malnutrition; Y92.239 Unspecified place in hospital as the place of occurrence of the external cause; M19.90 Unspecified osteoarthritis, unspecified site; Z87.891 Personal history of nicotine dependence; Z91.018 Allergy to other foods; K22.2 Esophageal obstruction; K22.70 Barrett's esophagus without dysplasia; R91.8 Other nonspecific abnormal finding of lung field; E87.5 Hyperkalemia; M25.78 Osteophyte, vertebrae; Z93.4 Other artificial openings of gastrointestinal tract status; J96.21 Acute and chronic respiratory failure with hypoxia; R62.7 Adult failure to thrive; R54 Age-related physical debility; D61.818 Other pancytopenia; D72.1 Eosinophilia; F32.9 Major depressive disorder, single episode, unspecified; B37.0 Candidal stomatitis; L03.031 Cellulitis of right toe; L60.0 Ingrowing nail; K25.9 Gastric ulcer, unspecified as acute or chronic, without hemorrhage or perforation; Z87.01 Personal history of pneumonia (recurrent); R19.7 Diarrhea, unspecified; J98.11 Atelectasis; E83.42 Hypomagnesemia; N27.1 Small kidney, bilateral; E86.0 Dehydration; E87.6 Hypokalemia; Z90.710 Acquired absence of both cervix and uterus; J69.0 Pneumonitis due to inhalation of food and vomit; I82.411 Acute embolism and thrombosis of right femoral vein; B37.49 Other urogenital candidiasis; R13.13 Dysphagia, pharyngeal phase; K21.9 Gastro-esophageal reflux disease without esophagitis; J15.1 Pneumonia due to Pseudomonas; D46.9 Myelodysplastic syndrome, unspecified; Z90.49 Acquired absence of other specified parts of digestive tract; Z92.21 Personal history of antineoplastic chemotherapy; Z53.29 Procedure and treatment not carried out because of patient's decision for other reasons; F41.9 Anxiety disorder, unspecified